=== PATIENT | female | born 1975 | race Two or more races ===

== ENCOUNTER → 2020-04-30 13:07 | Outpatient (BNVA) | payer OTHER, MEDICAID, SELFPAY | PROVIDERS: PCP Family Medicine; Referring Provider Family Medicine; Visit Provider Internal Medicine Cardiovascular Disease | DX: I09.9 Rheumatic heart disease, unspecified (principal); Z95.2 Presence of prosthetic heart valve; Z51.81 Encounter for therapeutic drug level monitoring; Z79.01 Long term (current) use of anticoagulants | CPT/HCPCS: 99204 ==

== ENCOUNTER → 2020-05-05 16:20 | Outpatient (BNVA) | payer MEDICAID, OTHER, SELFPAY | PROVIDERS: PCP Family Medicine; Visit Provider Family Medicine | DX: Z95.2 Presence of prosthetic heart valve (principal); Z51.81 Encounter for therapeutic drug level monitoring; Z79.01 Long term (current) use of anticoagulants | CPT/HCPCS: 85610; 99211 ==

== ENCOUNTER → 2020-05-15 14:45 | Outpatient (REF) | payer OTHER, MEDICAID, SELFPAY ==
--- NOTE | 2020-05-15 14:51 | CA_ITS ---
Transthoracic Echocardiogram Patient (Last, First, Middle): Thalia Martell, Gender: Female Date of : 1975 Age: 45 Procedure Date: 05/15/2020 Procedure Type: Transthoracic Echocardiogram Location: OP Height: 149.86 cm Weight: 73.48 kg BSA: 1.69 m2 Heart Rate: bpm BP: 116 / 60 mmHg Theology Teacher: Referring MD: Terence Haynes MD Symptoms: Z95.2 - Presence of prosthetic heart valve Study Quality: Fair ECG Rhythm: Sinus Conclusions: - The left ventricular systolic function is normal. The visually estimated ejection fraction is between 60-65%. - A mechanical prosthetic aortic valve is present. The prosthetic aortic valve appears to be functioning normally. - There is mild mitral valve stenosis. Findings Left Ventricle Normal left ventricular cavity size. There is normal left ventricular wall thickness. The left ventricular systolic function is normal. The visually estimated ejection fraction is between 60-65%. There is no evidence of regional wall motion abnormalities. Diastolic function is indeterminate on the basis of available data. Right Ventricle Normal right ventricular cavity size and systolic function. Atria The left atrium is mildly dilated. The right atrium is normal in size. Aortic Valve A mechanical prosthetic aortic valve is present. The prosthetic aortic valve appears to be functioning normally. The peak aortic velocity is 2.65 m/s with a calculated peak gradient of 28 mmHg. The mean gradient is 15 mmHg. The aortic valve area is 1.25 cm2. There is trace (trivial) aortic valve regurgitation. Mitral Valve There is mild mitral annular calcification. There is trace mitral valve regurgitation. There is mild mitral valve stenosis. Mitral valve leaflets appear to have reduced excursion. Likely rheumatic etiology. Mean gradient 4mmHg at 64/Min. Mitral valve area by pressure half time was 1.53 sq cm. Pulmonic Valve The pulmonic valve was not well visualized. Tricuspid Valve Normal tricuspid valve structure. There is trace tricuspid valve regurgitation. The pulmonary artery systolic pressure is normal. Great Vessels The asc aorta is normal in size. Venous The inferior vena cava is normal in size and collapses greater than 50% with inspiration. Pericardium/Pleural There is no evidence of pericardial effusion. Prior Study Comparison No prior study available for comparison. Measurements 2D Linear Measurements IVSd: 0.98 0.6-0.9/0.6-1.0 cm LVIDd: 4.02 3.9-5.3/4.2-5.9 cm LVIDd Index: 2.38 2.4-3.2/2.2-3.1 cm/m2 LVIDs: 2.84 2.0-3.6 cm LVPWd: 1.01 0.7-1.1 cm Ao Root: 3.20 2.1-3.5 cm LA Diam: 3.40 2.7-3.8/3.0-4.0 cm LAIDs Index: 2.01 1.5-2.3 cm/m2 LV Mass: 157.64 67-162/88-224 g LV Mass Index: 93.28 43-95/49-115 g/m2 LVOT Diam: 1.80 3.0+(-)1.3 cm Mitral Valve MV VTI: 0.57 MV Pk Jose [place]: 1.49 MV Mn Jose Francisco: 0.90 MV Pk Grad: 9.00 MV Mn Grad: 4.00 MV Pk E: 1.23 MV PK A: 1.27 MV Decel Time: 454.00 E/A: 1.00 E'Lateral: 6.20 E'Medial: 5.55 E/E' Med: 22.20 E/E' Lat: 19.80 PHT: 139.00 MVA PHT: 1.58 MVA Continuity: 1.16 Decel [place]: 2.78 Aortic Valve AoV Pk Jose [place]: 2.65 AoV Mn Jose Francisco: 1.80 AoV VTI: 0.53 AoV Pk Grad: 28.00 Aov Mn Grad: 15.00 EDUARDO Cont.VTI: 1.25 LVOT LVOT Pk Jose [place]: 1.06 LVOT Mn Jose Francisco: 0.79 LVOT VTI: 0.26 LVOT Pk Grad: 4.00 LVOT Mn Grad: 3.00 LVOT Diam: 1.80 LVOT Area: 2.54 Diastolic Function MV Pk E: 1.23 MV Pk A: 1.27 E/A: 1.00 E'Medial: 5.55 E/E' Med: 22.20 E' Laterial: 6.20 E/E' Lat: 19.80 Tricuspid Valve TR Pk Jose Francisco: 2.20 TR Pk Grad: 19.00 Great Vessels Aorta Ao Root-2D: 3.20 2.0-3.7 cm Pulmonary Valve PV Pk [place]: 1.01 Peak PV Grad: 4.00 Updated in Other Vendor System with Status of Final Gabe Mckee MD electronically signed on 05/16/2020 1:28:05 PM with status of Final
== END ==
LOC: HO.CARD 14:45
PROVIDERS: Visit Provider Internal Medicine Cardiovascular Disease
DX: Z95.2 Presence of prosthetic heart valve (principal)
CPT/HCPCS: 93306

== ENCOUNTER → 2020-06-15 15:54 | Outpatient (BNVA) | payer OTHER, MEDICAID, SELFPAY | PROVIDERS: PCP Family Medicine; Visit Provider Internal Medicine | DX: Z95.2 Presence of prosthetic heart valve (principal); Z51.81 Encounter for therapeutic drug level monitoring; Z79.01 Long term (current) use of anticoagulants | CPT/HCPCS: 85610; 99211 ==

== ENCOUNTER 2020-06-19 13:51 | Outpatient (REF) | payer OTHER, SELFPAY ==
--- NOTE | 2020-06-19 | US_ITS ---
EXAMINATION: PELVIC ULTRASOUND CLINICAL INFORMATION: Pelvic pain COMPARISON: Previous exam July 2019 TECHNIQUE: Transabdominal and transvaginal pelvic ultrasound was performed. Transvaginal exam was performed for better visualization of the uterus and ovaries. FINDINGS: The uterus is anteverted and measures 9.7 x 4.4 x 5.4 cm in dimension. No focal uterine lesion is seen. Endometrial thickness is normal estimated at 0.6 cm. The endometrium appears homogeneous. There is a nabothian cyst in the cervix. The right ovary is normal-appearing and measures 2.1 x 3.4 x 1.2 cm. The left ovary measures 2.8 x 2.6 x 2.2 cm. There is a new 2.5 x 1.8 x 2.1 cm simple left ovarian cyst. The previously identified right ovarian cyst has resolved. There is no fluid in the pelvis. US/US pelvic complete IMPRESSION: Small left ovarian cyst otherwise unremarkable exam.
--- NOTE | 2020-06-19 | XR_ITS ---
EXAMINATION: XR CERVICAL SPINE CLINICAL INFORMATION: Neck pain COMPARISON: Previous chest x-ray June 2016 TECHNIQUE: 5 views of the cervical spine FINDINGS: Alignment is normal. No fracture or dislocation is seen. Disc spaces are normal. Neural foramen are patent. Prevertebral soft tissues are normal. There are median sternotomy wires. There is a 4 mm right upper lobe nodule. This is unchanged from previous chest x-ray 2016 and therefore probably benign. XR/XR cervical spine 5V IMPRESSION: Unremarkable cervical spine x-ray. Stable right upper lobe nodule.
--- NOTE | 2020-06-19 | US_ITS ---
EXAMINATION: PELVIC ULTRASOUND CLINICAL INFORMATION: Pelvic pain COMPARISON: Previous exam July 2019 TECHNIQUE: Transabdominal and transvaginal pelvic ultrasound was performed. Transvaginal exam was performed for better visualization of the uterus and ovaries. FINDINGS: The uterus is anteverted and measures 9.7 x 4.4 x 5.4 cm in dimension. No focal uterine lesion is seen. Endometrial thickness is normal estimated at 0.6 cm. The endometrium appears homogeneous. There is a nabothian cyst in the cervix. The right ovary is normal-appearing and measures 2.1 x 3.4 x 1.2 cm. The left ovary measures 2.8 x 2.6 x 2.2 cm. There is a new 2.5 x 1.8 x 2.1 cm simple left ovarian cyst. The previously identified right ovarian cyst has resolved. There is no fluid in the pelvis. US/US transvaginal IMPRESSION: Small left ovarian cyst otherwise unremarkable exam.
== END 2020-06-19 13:52 | disposition home or self-care (01) ==
LOC: HO.US 13:51
PROVIDERS: PCP Family Medicine; Visit Provider Family Medicine
DX: R10.2 Pelvic and perineal pain (principal); N83.209 Unspecified ovarian cyst, unspecified side
CPT/HCPCS: 72050; 76830; 76856

== ENCOUNTER 2020-07-27 16:13 | Outpatient (REF) | payer MEDICAID, OTHER, SELFPAY | END 2020-07-27 16:14 | disposition home or self-care (01) | LOC: HO.LAB 16:13 | PROVIDERS: PCP Family Medicine; Visit Provider Internal Medicine | DX: Z20.822 Contact with and (suspected) exposure to COVID-19 (principal) | CPT/HCPCS: 36415; C9803; U0003 ==

== ENCOUNTER → 2020-09-08 15:59 | Outpatient (BNVA) | payer OTHER, SELFPAY | PROVIDERS: PCP Family Medicine; Visit Provider Internal Medicine | DX: Z95.2 Presence of prosthetic heart valve (principal); Z51.81 Encounter for therapeutic drug level monitoring; Z79.01 Long term (current) use of anticoagulants | CPT/HCPCS: 85610; 99211 ==

== ENCOUNTER 2020-09-09 14:51 | Outpatient (REF) | payer OTHER, SELFPAY ==
[2020-09-09 16:03] LABS: Hematocrit 39.8 % (37-47); Hemoglobin 13.6 g/dl (12.0-16.0); Mean Corpuscular HGB Conc 34.2 g/dl (31.0-35.0); Mean Corpuscular Hemoglobin 30.2 pg (27.0-33.0); Mean Corpuscular Volume 88.2 fL (80-98); Mean Platelet Volume 9.7 fL (9.4-12.3); Platelet Count 278 X10*3/uL (160-400); Red Blood Count 4.51 X10*6/uL (4.20-5.50); Red Cell Distribution Width 13.7 % (11.0-16.0); White Blood Count 6.1 X10*3/uL (4.8-10.8)
== END 2020-09-09 14:52 | disposition home or self-care (01) ==
LOC: HO.LAB 14:51
PROVIDERS: PCP Family Medicine; Visit Provider Internal Medicine Cardiovascular Disease
DX: I09.9 Rheumatic heart disease, unspecified (principal); R42 Dizziness and giddiness; Z95.2 Presence of prosthetic heart valve; Z79.899 Other long term (current) drug therapy; Z79.82 Long term (current) use of aspirin; Z79.01 Long term (current) use of anticoagulants
CPT/HCPCS: 36415; 85027; 99212

== ENCOUNTER → 2020-09-14 13:41 | Outpatient (BNVA) | payer OTHER, SELFPAY | PROVIDERS: PCP Family Medicine; Visit Provider Internal Medicine | DX: Z95.2 Presence of prosthetic heart valve (principal); Z51.81 Encounter for therapeutic drug level monitoring; Z79.01 Long term (current) use of anticoagulants | CPT/HCPCS: 85610; 99211 ==

== ENCOUNTER → 2020-09-24 15:28 | Outpatient (BNVA) | payer OTHER, SELFPAY | PROVIDERS: PCP Family Medicine; Visit Provider Internal Medicine | DX: Z95.2 Presence of prosthetic heart valve (principal); Z51.81 Encounter for therapeutic drug level monitoring; Z79.01 Long term (current) use of anticoagulants | CPT/HCPCS: 85610; 99211 ==

== ENCOUNTER → 2020-10-02 16:05 | Outpatient (BNVA) | payer OTHER, SELFPAY | PROVIDERS: PCP Family Medicine; Visit Provider Internal Medicine | DX: Z95.2 Presence of prosthetic heart valve (principal); Z51.81 Encounter for therapeutic drug level monitoring; Z79.01 Long term (current) use of anticoagulants | CPT/HCPCS: 85610; 99211 ==

== ENCOUNTER → 2020-10-09 15:19 | Outpatient (BNVA) | payer OTHER, SELFPAY | PROVIDERS: PCP Family Medicine; Visit Provider Internal Medicine | DX: Z95.2 Presence of prosthetic heart valve (principal); Z51.81 Encounter for therapeutic drug level monitoring; Z79.01 Long term (current) use of anticoagulants | CPT/HCPCS: 85610; 99211 ==

== ENCOUNTER → 2020-10-23 15:40 | Outpatient (BNVA) | payer OTHER, SELFPAY | PROVIDERS: PCP Family Medicine; Visit Provider Internal Medicine | DX: Z95.2 Presence of prosthetic heart valve (principal); Z51.81 Encounter for therapeutic drug level monitoring; Z79.01 Long term (current) use of anticoagulants | CPT/HCPCS: 85610; 99211 ==

== ENCOUNTER → 2020-11-17 16:09 | Outpatient (BNVA) | payer OTHER, SELFPAY | PROVIDERS: PCP Family Medicine; Visit Provider Internal Medicine | DX: Z95.2 Presence of prosthetic heart valve (principal); Z51.81 Encounter for therapeutic drug level monitoring; Z79.01 Long term (current) use of anticoagulants | CPT/HCPCS: 85610; 99211 ==

== ENCOUNTER 2020-12-11 15:29 | Outpatient (REF) | payer OTHER, SELFPAY ==
--- NOTE | ~2020-12-11 | MM_ITS ---
EXAMINATION: MM SCREENING DIGITAL BREAST TOMOSYNTHESIS, BILATERAL CLINICAL INFORMATION: Screening. Asymptomatic. The lifetime risk of breast cancer based on the Tyrer-Cuzick Model is 6.7%. COMPARISON: Mammography: September 04, 2019 and April 03, 2017 TECHNIQUE: Digital breast tomosynthesis is performed in both the craniocaudal and mediolateral oblique views along with computer-aided detection (CAD). Synthesized 2D images are generated from the tomosynthesis. FINDINGS: There are scattered areas of fibroglandular density (ACR BI-RADS breast composition Category b). There are no significant masses, abnormal calcifications, or other abnormalities. MM/MM tomosynthesis screening BI IMPRESSION: There are no significant changes from prior study. ASSESSMENT: BI-RADS 1: Negative RECOMMENDATION: Routine annual mammography screening. This patient's information was entered into a reminder system with a target due date for their next mammogram.
== END 2020-12-11 15:30 | disposition home or self-care (01) ==
LOC: HO.MAMMO 15:29
PROVIDERS: PCP Internal Medicine; Visit Provider Family Medicine
DX: Z12.31 Encounter for screening mammogram for malignant neoplasm of breast (principal)
CPT/HCPCS: 77063; 77067

== ENCOUNTER → 2020-12-15 15:49 | Outpatient (BNVA) | payer OTHER, SELFPAY | PROVIDERS: PCP Internal Medicine; Visit Provider Internal Medicine | DX: Z95.2 Presence of prosthetic heart valve (principal); Z51.81 Encounter for therapeutic drug level monitoring; Z79.01 Long term (current) use of anticoagulants | CPT/HCPCS: 85610; 99211 ==

== ENCOUNTER → 2021-01-12 15:50 | Outpatient (BNVA) | payer OTHER, SELFPAY | PROVIDERS: PCP Family Medicine; Visit Provider Internal Medicine | DX: Z95.2 Presence of prosthetic heart valve (principal); Z51.81 Encounter for therapeutic drug level monitoring; Z79.01 Long term (current) use of anticoagulants | CPT/HCPCS: 85610; 99211 ==

== ENCOUNTER → 2021-01-18 15:49 | Outpatient (BNVA) | payer OTHER, SELFPAY | PROVIDERS: PCP Family Medicine; Visit Provider Internal Medicine | DX: Z95.2 Presence of prosthetic heart valve (principal); Z51.81 Encounter for therapeutic drug level monitoring; Z79.01 Long term (current) use of anticoagulants | CPT/HCPCS: 85610; 99211 ==

== ENCOUNTER → 2021-02-15 11:38 | Outpatient (BNVA) | payer OTHER, SELFPAY | PROVIDERS: PCP Family Medicine; Visit Provider Internal Medicine | DX: Z95.2 Presence of prosthetic heart valve (principal); Z51.81 Encounter for therapeutic drug level monitoring; Z79.01 Long term (current) use of anticoagulants | CPT/HCPCS: 85610; 99211 ==

== ENCOUNTER → 2021-03-16 15:19 | Outpatient (BNVA) | payer OTHER, SELFPAY | PROVIDERS: PCP Family Medicine; Visit Provider Internal Medicine | DX: Z95.2 Presence of prosthetic heart valve (principal); Z51.81 Encounter for therapeutic drug level monitoring; Z79.01 Long term (current) use of anticoagulants | CPT/HCPCS: 85610; 99211 ==

== ENCOUNTER → 2021-03-31 15:32 | Outpatient (BNVA) | payer OTHER, SELFPAY | PROVIDERS: PCP Family Medicine; Referring Provider Family Medicine; Visit Provider Internal Medicine Cardiovascular Disease | DX: I08.0 Rheumatic disorders of both mitral and aortic valves (principal); Z95.2 Presence of prosthetic heart valve; Z79.82 Long term (current) use of aspirin; Z79.01 Long term (current) use of anticoagulants; Z79.899 Other long term (current) drug therapy | CPT/HCPCS: 99212 ==

== ENCOUNTER → 2021-04-28 15:51 | Outpatient (BNVA) | payer OTHER, SELFPAY | PROVIDERS: PCP Family Medicine; Visit Provider Internal Medicine | DX: Z95.2 Presence of prosthetic heart valve (principal); Z51.81 Encounter for therapeutic drug level monitoring; Z79.01 Long term (current) use of anticoagulants | CPT/HCPCS: 85610; 99211 ==

== ENCOUNTER 2021-05-25 11:30 | Outpatient (REF) | payer OTHER, SELFPAY ==
[2021-05-27 07:13] LABS: CT PCR NOT DETECTED (Not Detect.); NG PCR NOT DETECTED (Not Detect.)
[2021-05-27 11:04] LABS: BV Int Neg Control Negative (Negative); BV Int Pos Control Positive (Positive)
== END 2021-05-25 11:31 | disposition home or self-care (01) ==
LOC: HO.LAB 11:30
PROVIDERS: Visit Provider Advanced Practice Midwife
DX: Z30.09 Encounter for other general counseling and advice on contraception (principal); N94.6 Dysmenorrhea, unspecified; N92.0 Excessive and frequent menstruation with regular cycle; Z20.2 Contact with and (suspected) exposure to infections with a predominantly sexual mode of transmission; Z95.2 Presence of prosthetic heart valve; Z51.81 Encounter for therapeutic drug level monitoring; Z79.01 Long term (current) use of anticoagulants
CPT/HCPCS: 85610; 87480; 87491; 87510; 87591; 87660; 99202; 99211

== ENCOUNTER 2021-06-02 14:44 | Outpatient (REF) | payer OTHER, SELFPAY ==
--- NOTE | ~2021-06-02 | US_ITS ---
EXAMINATION: US PELVIS CLINICAL INFORMATION: Dysmenorrhea, unspecified. COMPARISON: None TECHNIQUE: Ultrasound of the pelvis is performed using both transabdominal and transvaginal transducers along with Doppler. Transvaginal imaging is performed due to inadequate visualization transabdominally. FINDINGS: Uterus: The uterus is anteverted and measures 10.1 x 3.4 x 5.1 cm. The double wall endometrial thickness is 0.5 mm. The uterus is smooth in contour and has normal myometrial echogenicity. Solitary 0.5 cm hypoechogenicity is noted within the anterior wall of the body of the uterus may represent small fibroid.. Adnexa: Both ovaries are visualized. There is normal color flow to the adnexa. There is no ovarian torsion. There is no pelvic ascites or fluid collection. Right ovary measures 2.2 x 1.6 x 2.1 cm. Volume of 3.9 mL. Previously measured 2.1 x 2.4 x 1.2 cm. Subcentimeter follicles Left ovary measures 2.5 x 1.3 x 1.6 cm. Volume of 2.7 mL. Previously measured 2.8 x 2.6 x 2.2 cm. US/US pelvic and transvaginal IMPRESSION: 1. Solitary 0.5 cm likely intramural fibroid within the body of the uterus. Normal-appearing endometrial stripe. 3. Morphologically normal-appearing bilateral ovaries.
== END 2021-06-02 14:45 | disposition home or self-care (01) ==
LOC: HO.US 14:44
PROVIDERS: Visit Provider Advanced Practice Midwife
DX: N94.6 Dysmenorrhea, unspecified (principal)
CPT/HCPCS: 76830; 76856

== ENCOUNTER → 2021-06-22 11:49 | Outpatient (BNVA) | payer OTHER, SELFPAY | PROVIDERS: Visit Provider Advanced Practice Midwife ==

== ENCOUNTER → 2021-08-24 11:29 | Outpatient (BNVA) | payer OTHER, SELFPAY | PROVIDERS: Visit Provider Internal Medicine | DX: Z95.2 Presence of prosthetic heart valve (principal); Z51.81 Encounter for therapeutic drug level monitoring; Z79.01 Long term (current) use of anticoagulants | CPT/HCPCS: 85610; 99211 ==

== ENCOUNTER → 2021-08-31 15:32 | Outpatient (BNVA) | payer OTHER, SELFPAY | PROVIDERS: PCP Family Medicine; Visit Provider Internal Medicine | DX: Z95.2 Presence of prosthetic heart valve (principal); Z51.81 Encounter for therapeutic drug level monitoring; Z79.01 Long term (current) use of anticoagulants | CPT/HCPCS: 85610; 99211 ==

== ENCOUNTER → 2021-09-14 14:21 | Outpatient (BNVA) | payer OTHER, SELFPAY | PROVIDERS: PCP Family Medicine; Visit Provider Internal Medicine | DX: Z95.2 Presence of prosthetic heart valve (principal); Z51.81 Encounter for therapeutic drug level monitoring; Z79.01 Long term (current) use of anticoagulants | CPT/HCPCS: 85610; 99211 ==

== ENCOUNTER 2021-09-17 14:05 | Outpatient (REF) | payer OTHER, SELFPAY ==
[2021-09-17 16:32] LABS: Alanine Aminotransferase 17 U/L (0-31); Albumin Level 4.1 g/dL (3.5-5.0); Alkaline Phosphatase 67 U/L (39-117); Anion Gap 10 (12-20); Aspartate Amino Transferase 18 U/L (5-31); Bilirubin Total 0.4 mg/dL (0.0-1.0); Blood Urea Nitrogen 15 mg/dL (9-16); Calcium 9.2 mg/dL (8.4-10.2); Carbon Dioxide 23 mmol/L (22-29); Chloride 108 mmol/L (96-108); Estimated Glomerular Filt Rate > 60; Glucose Random 89 mg/dL (60-115); Potassium 3.7 mmol/L (3.3-5.1); Sodium 137 mmol/L (135-145); Total Protein 7.6 g/dL (6.5-8.0)
[2021-09-17 16:51] LABS: TSH reflex Free T4 0.97 uIU/mL (0.32-4.0)
== END 2021-09-17 14:06 | disposition home or self-care (01) ==
LOC: HO.LAB 14:05
PROVIDERS: PCP Family Medicine; Referring Provider Family Medicine; Visit Provider Nurse Practitioner Family
DX: K21.9 Gastro-esophageal reflux disease without esophagitis (principal); K59.01 Slow transit constipation; K62.89 Other specified diseases of anus and rectum
CPT/HCPCS: 36415; 80053; 84443; 99202

== ENCOUNTER → 2021-09-21 15:59 | Outpatient (BNVA) | payer OTHER, SELFPAY | PROVIDERS: PCP Family Medicine; Visit Provider Internal Medicine | DX: Z95.2 Presence of prosthetic heart valve (principal); Z51.81 Encounter for therapeutic drug level monitoring; Z79.01 Long term (current) use of anticoagulants | CPT/HCPCS: 85610; 99211 ==

== ENCOUNTER → 2021-10-05 15:53 | Outpatient (BNVA) | payer OTHER, SELFPAY | PROVIDERS: PCP Family Medicine; Visit Provider Internal Medicine | DX: Z95.2 Presence of prosthetic heart valve (principal); Z51.81 Encounter for therapeutic drug level monitoring; Z79.01 Long term (current) use of anticoagulants | CPT/HCPCS: 85610; 99211 ==

== ENCOUNTER → 2021-10-15 15:03 | Outpatient (BNVA) | payer OTHER, SELFPAY | PROVIDERS: PCP Family Medicine; Visit Provider Internal Medicine | DX: Z95.2 Presence of prosthetic heart valve (principal); Z51.81 Encounter for therapeutic drug level monitoring; Z79.01 Long term (current) use of anticoagulants | CPT/HCPCS: 85610; 99211 ==

== ENCOUNTER → 2021-10-19 15:44 | Outpatient (BNVA) | payer OTHER, SELFPAY | PROVIDERS: PCP Family Medicine; Visit Provider Internal Medicine | DX: Z95.2 Presence of prosthetic heart valve (principal); Z51.81 Encounter for therapeutic drug level monitoring; Z79.01 Long term (current) use of anticoagulants | CPT/HCPCS: 85610; 99211 ==

== ENCOUNTER → 2021-11-03 15:28 | Outpatient (BNVA) | payer OTHER, SELFPAY | PROVIDERS: PCP Family Medicine; Visit Provider Internal Medicine | DX: Z95.2 Presence of prosthetic heart valve (principal); Z79.01 Long term (current) use of anticoagulants; Z51.81 Encounter for therapeutic drug level monitoring | CPT/HCPCS: 85610; 99211 ==

== ENCOUNTER → 2021-11-15 15:42 | Outpatient (BNVA) | payer OTHER, SELFPAY | PROVIDERS: PCP Family Medicine; Referring Provider Family Medicine; Visit Provider Nurse Practitioner Family | DX: K59.01 Slow transit constipation (principal); K21.9 Gastro-esophageal reflux disease without esophagitis; K62.9 Disease of anus and rectum, unspecified; Z79.899 Other long term (current) drug therapy | CPT/HCPCS: 99212 ==

== ENCOUNTER 2021-12-14 15:57 | Outpatient (REF) | payer OTHER, SELFPAY ==
--- NOTE | ~2021-12-14 | MM_ITS ---
EXAMINATION: MM SCREENING DIGITAL BREAST TOMOSYNTHESIS, BILATERAL CLINICAL INFORMATION: Screening. Asymptomatic. The lifetime risk of breast cancer based on the Tyrer-Cuzick Model is 7%. COMPARISON: Mammography: 12/11/2020, 09/04/2019, 04/03/2017 (baseline). TECHNIQUE: Digital breast tomosynthesis is performed in both the craniocaudal and mediolateral oblique views along with computer-aided detection (CAD). Synthesized 2D images are generated from the tomosynthesis. FINDINGS: There are scattered areas of fibroglandular density (ACR BI-RADS breast composition Category b). There are no significant masses, abnormal calcifications, or other abnormalities. Parenchymal pattern is similar to prior studies. No developing density. The axilla and skin contours are unremarkable. MM/MM tomosynthesis screening BI IMPRESSION: No mammographic evidence of malignancy. ASSESSMENT: BI-RADS 1: Negative RECOMMENDATION: Routine annual mammography screening. This patient's information was entered into a reminder system with a target due date for their next mammogram.
== END 2021-12-14 15:58 | disposition home or self-care (01) ==
LOC: HO.MAMMO 15:57
PROVIDERS: Visit Provider Internal Medicine
DX: Z12.31 Encounter for screening mammogram for malignant neoplasm of breast (principal)
CPT/HCPCS: 77063; 77067

== ENCOUNTER → 2021-12-16 14:35 | Outpatient (BNVA) | payer OTHER, SELFPAY | PROVIDERS: PCP Family Medicine; Visit Provider Internal Medicine | DX: Z95.2 Presence of prosthetic heart valve (principal); Z79.01 Long term (current) use of anticoagulants; Z51.81 Encounter for therapeutic drug level monitoring | CPT/HCPCS: 85610; 99211 ==

== ENCOUNTER → 2022-01-13 15:59 | Outpatient (BNVA) | payer OTHER, SELFPAY | PROVIDERS: PCP Family Medicine; Visit Provider Internal Medicine | DX: Z95.2 Presence of prosthetic heart valve (principal); Z79.01 Long term (current) use of anticoagulants; Z51.81 Encounter for therapeutic drug level monitoring | CPT/HCPCS: 85610; 99211 ==

== ENCOUNTER → 2022-01-27 14:47 | Outpatient (BNVA) | payer OTHER, SELFPAY | PROVIDERS: PCP Family Medicine; Visit Provider Internal Medicine | DX: Z95.2 Presence of prosthetic heart valve (principal); Z79.01 Long term (current) use of anticoagulants; Z51.81 Encounter for therapeutic drug level monitoring | CPT/HCPCS: 85610; 99211 ==

== ENCOUNTER → 2022-02-03 14:10 | Outpatient (BNVA) | payer OTHER, SELFPAY | PROVIDERS: PCP Family Medicine; Referring Provider Family Medicine; Visit Provider Internal Medicine Cardiovascular Disease | DX: I05.0 Rheumatic mitral stenosis (principal); Z95.2 Presence of prosthetic heart valve; Z79.01 Long term (current) use of anticoagulants; Z79.82 Long term (current) use of aspirin | CPT/HCPCS: 93005; 99212 ==

== ENCOUNTER → 2022-02-11 13:37 | Outpatient (REF) | payer OTHER, SELFPAY ==
--- NOTE | 2022-02-11 13:39 | CA_ITS ---
Transthoracic Echocardiogram Patient (Last, First, Middle): Thalia Martell, Gender: Female Date of : 1975 Age: 46 Procedure Date: 02/11/2022 Procedure Type: Transthoracic Echocardiogram Location: OP Height: 149.86 cm Weight: 74.39 kg BSA: 1.69 m2 Heart Rate: 73 bpm BP: 122 / 70 mmHg Weir Fisher: MT Referring MD: Terence Haynes MD Exploration Driller: Terence Haynes MD Symptoms: I09.9 - Rheumatic heart disease, unspecified Study Quality: Adequate ECG Rhythm: Sinus Conclusions: - Normal left ventricular size and systolic function. There is mildly increased left ventricular wall thickness. The visually estimated ejection fraction is between 55-60%. - E/E prime ratio is >15, consistent with elevated filling pressures. Low GLS values <18. - Normal right ventricular cavity size and systolic function. - A mechanical prosthetic aortic valve is present. The prosthetic aortic valve appears to be functioning normally. The peak aortic velocity is 2.37 m/s. The mean gradient is 13 mmHg. - There is mild anterior and posterior mitral leaflet thickening. There is no mitral valve regurgitation. Mitral valve stenosis is present. MG across the MV of 6 mm Hg at 67 beats/min. - There is mild dilatation of the ascending aorta measuring 3.40 cm. Findings Left Ventricle Normal left ventricular size and systolic function. There is mildly increased left ventricular wall thickness. The visually estimated ejection fraction is between 55-60%. Abnormal diastolic function is noted. Spectral Doppler is indicative of an impaired relaxation filling pattern. E/E prime ratio is >15, consistent with elevated filling pressures. Low GLS values <18. Right Ventricle Normal right ventricular cavity size and systolic function. Atria The left atrium is moderately dilated. There is no evidence of interatrial shunt by color Doppler. The right atrium is normal in size. Aortic Valve A mechanical prosthetic aortic valve is present. The prosthetic aortic valve appears to be functioning normally. The peak aortic velocity is 2.37 m/s. The mean gradient is 13 mmHg. Mitral Valve There is mild anterior and posterior mitral leaflet thickening. There is no mitral valve regurgitation. Mitral valve stenosis is present. MG across the MV of 6 mm Hg at 67 beats/min. Pulmonic Valve Normal pulmonic valve structure and function. There is trace pulmonic valve regurgitation. Tricuspid Valve Normal tricuspid valve structure and function. There is trace tricuspid valve regurgitation. Normal right atrial pressure. There is no evidence of pulmonary hypertension. Great Vessels The pulmonary artery was not well visualized. There is mild dilatation of the ascending aorta measuring 3.40 cm. Venous The inferior vena cava is normal in size and collapses greater than 50% with inspiration. Pericardium/Pleural There is no evidence of pericardial effusion. Measurements 2D Linear Measurements IVSd: 0.95 0.6-0.9/0.6-1.0 cm LVIDd: 4.48 3.9-5.3/4.2-5.9 cm LVIDd Index: 2.65 2.4-3.2/2.2-3.1 cm/m2 LVIDs: 2.97 2.0-3.6 cm LVPWd: 0.93 0.7-1.1 cm LA Diam: 3.60 2.7-3.8/3.0-4.0 cm LAIDs Index: 2.13 1.5-2.3 cm/m2 LV Mass: 173.66 67-162/88-224 g LV Mass Index: 102.76 43-95/49-115 g/m2 LVOT Diam: 2.10 3.0+(-)1.3 cm 2D Systolic Function EF 4C: 66.10 >55% EF 2C: 54.80 >55% EF BiP: 61.00 >55% Mitral Valve MV VTI: 0.52 MV Pk Jose Francisco: 1.53 MV Mn Jose Francisco: 1.08 MV Pk Grad: 10.00 MV Mn Grad: 6.00 MV Pk E: 1.39 MV PK A: 1.53 MV Decel Time: 362.00 E/A: 0.90 E'Lateral: 6.81 E'Medial: 4.37 E/E' Med: 31.80 E/E' Lat: 20.40 PHT: 106.00 MVA PHT: 2.08 MVA Continuity: 1.28 Decel [place]: 3.84 Aortic Valve AoV Pk Jose Francisco: 2.37 AoV Mn Jose Francisco: 1.67 AoV VTI: 0.47 AoV Pk Grad: 22.00 Aov Mn Grad: 13.00 EDUARDO Cont.VTI: 1.41 LVOT LVOT Pk Jose [place]: 0.84 LVOT Mn Jose Francisco: 0.63 LVOT VTI: 0.19 LVOT Pk Grad: 3.00 LVOT Mn Grad: 2.00 LVOT Diam: 2.10 LVOT Area: 3.46 Diastolic Function MV Pk E: 1.39 MV Pk A: 1.53 E/A: 0.90 E'Medial: 4.37 E/E' Med: 31.80 E' Laterial: 6.81 E/E' Lat: 20.40 Right Ventricle TAPSE (mm): 13.70 TVS' Jose Francisco: 7.87 Tricuspid Valve TR Pk Jose Francisco: 2.10 TR Pk Grad: 18.00 RA Press: 3.00 RVSP: 21.00 Great Vessels Aorta Ao Asc: 3.40 2.1-3.4 cm Pulmonary Valve PV Pk Jose Francisco: 0.83 Peak PV Grad: 3.00 Updated in Other Vendor System with Status of Final Terence Haynes MD electronically signed on 02/12/2022 1:57:14 PM with status of Final
== END ==
LOC: HO.CARD 13:37
PROVIDERS: Visit Provider Internal Medicine Cardiovascular Disease
DX: I09.9 Rheumatic heart disease, unspecified (principal)
CPT/HCPCS: 93306; 93356

== ENCOUNTER → 2022-02-14 16:12 | Outpatient (BNVA) | payer OTHER, SELFPAY | PROVIDERS: PCP Family Medicine; Visit Provider Nurse Practitioner Family | DX: K21.9 Gastro-esophageal reflux disease without esophagitis (principal); K58.1 Irritable bowel syndrome with constipation; K59.04 Chronic idiopathic constipation | CPT/HCPCS: 99212 ==

== ENCOUNTER → 2022-02-24 15:54 | Outpatient (BNVA) | payer OTHER, SELFPAY | PROVIDERS: PCP Family Medicine; Visit Provider Internal Medicine | DX: Z95.2 Presence of prosthetic heart valve (principal); Z79.01 Long term (current) use of anticoagulants; Z51.81 Encounter for therapeutic drug level monitoring | CPT/HCPCS: 85610; 99211 ==

== ENCOUNTER → 2022-03-03 15:48 | Outpatient (BNVA) | payer OTHER, SELFPAY | PROVIDERS: PCP Family Medicine; Visit Provider Internal Medicine | DX: Z95.2 Presence of prosthetic heart valve (principal); Z79.01 Long term (current) use of anticoagulants; Z51.81 Encounter for therapeutic drug level monitoring | CPT/HCPCS: 85610; 99211 ==

== ENCOUNTER → 2022-03-24 15:56 | Outpatient (BNVA) | payer OTHER, SELFPAY | PROVIDERS: PCP Family Medicine; Visit Provider Internal Medicine | DX: Z95.2 Presence of prosthetic heart valve (principal); Z51.81 Encounter for therapeutic drug level monitoring; Z79.01 Long term (current) use of anticoagulants | CPT/HCPCS: 85610; 99211 ==

== ENCOUNTER → 2022-04-21 14:55 | Outpatient (BNVA) | payer OTHER, SELFPAY | PROVIDERS: PCP Family Medicine; Visit Provider Internal Medicine | DX: Z95.2 Presence of prosthetic heart valve (principal); Z79.01 Long term (current) use of anticoagulants; Z51.81 Encounter for therapeutic drug level monitoring | CPT/HCPCS: 85610; 99211 ==

== ENCOUNTER → 2022-05-23 16:14 | Outpatient (BNVA) | payer OTHER, SELFPAY | PROVIDERS: PCP Family Medicine; Visit Provider Internal Medicine | DX: Z95.2 Presence of prosthetic heart valve (principal); Z79.01 Long term (current) use of anticoagulants; Z51.81 Encounter for therapeutic drug level monitoring | CPT/HCPCS: 85610; 99211 ==

== ENCOUNTER → 2022-06-03 15:38 | Outpatient (BNVA) | payer OTHER, SELFPAY | PROVIDERS: PCP Family Medicine; Visit Provider Internal Medicine | DX: Z95.2 Presence of prosthetic heart valve (principal); Z51.81 Encounter for therapeutic drug level monitoring; Z79.01 Long term (current) use of anticoagulants | CPT/HCPCS: 85610; 99211 ==

== ENCOUNTER → 2022-07-04 16:02 | Outpatient (BNVA) | payer OTHER, SELFPAY | PROVIDERS: PCP Family Medicine; Visit Provider Internal Medicine | DX: Z95.2 Presence of prosthetic heart valve (principal); Z79.01 Long term (current) use of anticoagulants; Z51.81 Encounter for therapeutic drug level monitoring | CPT/HCPCS: 85610; 99211 ==

== ENCOUNTER 2022-07-11 07:58 | Day surgery (SDC) | payer OTHER, SELFPAY ==
[2022-07-06 11:29] VITALS: BMI 31.1
--- NOTE | 2022-07-07 13:56 | HO.ANESPROP2 ---
Documented by User: Nessa Zhang NP 07/07/22 14:05 HPI - Anesthesia Eval Consult details Narrative: 47yo F for Upper Endoscopy and Colonoscopy Cardiac cleared Warfarin s/p AVR (mechanical) 2009 [facility] Active Problems Active Problems: All Active Problems (Updated 07/06/22 @ 11:29 by Amanda Berrios RN) S/P AVR (Acute) Rheumatic heart disease (Acute) Current use of anticoagulant therapy (Acute) Dizziness (Acute) Severe dysmenorrhea (Acute) control counseling (Acute) Menorrhagia (Acute) Fibroid uterus (Acute) Diabetes (Acute) Anemia (Acute) Allergic rhinitis (Acute) Anticoagulation goal of INR 2 to 3 (Acute) Past Medical History Medical History Anticoagulation goal of INR 2 to 3 Aortic regurgitation Diabetes History of COVID-19 Rheumatic heart disease Surgical History Surgical History Heart valve replaced History of section Social History Social History Alcohol intake: never Patient Tobacco Use Status: Never used Tobacco Advance Directives: No Advance Directives Information Provided: Yes Gender identity: Female Meds Allergies Allergy/AdvReac Type Severity Reaction Status Date / Time No Known Allergies Allergy Verified 07/04/22 16:03 [No Known Allergies*] Home Medications Medication Instructions Recorded Confirmed Last Taken Type ascorbic acid (vitamin C) 500 mg 500 mg PO BID 04/30/20 07/06/22 Unknown History tablet cetirizine 10 mg tablet 10 mg PO DAILY 04/30/20 07/06/22 Unknown History cholecalciferol (vitamin D3) 50 50 mcg PO DAILY 04/30/20 07/06/22 Unknown History mcg (2,000 unit) capsule ferrous sulfate 325 mg (65 mg 325 mg PO BID 04/30/20 07/06/22 Unknown History iron) tablet montelukast 10 mg tablet 10 mg PO BEDTIME 04/30/20 07/06/22 Unknown History multivitamin 1 tab PO DAILY 04/30/20 07/06/22 Unknown History warfarin 2 mg tablet 2 mg PO DAILY 04/30/20 07/06/22 Unknown History acetaminophen 500 mg tablet 500 mg PO Q6H PRN 05/05/21 07/04/22 Unknown History (Tylenol Extra Strength) medroxyprogesterone 150 mg/mL 150 mg IM [id number] 05/25/21 07/06/22 Unknown History intramuscular suspension (Depo-Provera) acetaminophen 650 mg 1,300 mg PO Q8H PRN Pain 10/19/21 07/06/22 Unknown History tablet,extended release (Arthritis Pain Relief (acetaminophen) ER) omeprazole 20 mg capsule,delayed 20 mg PO DAILY 10/19/21 07/06/22 Unknown History release Exam Exam Date and Time: July 07, 2022 1356 Height,Weight and Vital Signs: Height 4 ft 11 in Weight 69.853 kg Pertinent Lab Results Pertinent Lab Results: Laboratory Tests 09/09/20 09/17/21 15:35 15:58 WBC 6.1 Hgb 13.6 Hct 39.8 Plt Count 278 Sodium 137 Potassium 3.7 Chloride 108 Carbon Dioxide 23 BUN 15 Creatinine 0.68 Narrative Narrative: ECHO 01/2022 Conclusions: - Normal left ventricular size and systolic function. There is ? mildly increased left ventricular wall thickness.? The visually? estimated ejection fraction is between 55-60%. ? - E/E prime ratio is >15, consistent with elevated filling ? ? ? pressures.? Low GLS values <18.? - Normal right ventricular cavity size and systolic function.? ? - A mechanical prosthetic aortic valve is present.? The? prosthetic aortic valve appears to be functioning normally.? The peak aortic velocity is 2.37 m/s.? The mean gradient is 13 mmHg. - There is mild anterior and posterior mitral leaflet thickening. There is no mitral valve regurgitation.? Mitral valve stenosis is present. MG across the MV of 6 mm Hg at 67 beats/min.? - There is mild dilatation of the ascending aorta measuring 3.40 cm.? EKG 01/2022 Sinus rhythm 77 beats per minute normal axis, right bundle-branch block QT interval 454 milliseconds Assessment and Plan Assessment Anesthesia Assessment: Chart Reviewed Documented by User: Rogerio Sultana MD 07/11/22 08:31 [facility] Past Medical History Medical History Anticoagulation goal of INR 2 to 3 Aortic regurgitation Diabetes History of COVID-19 Rheumatic heart disease Family History Family history of problems with anesthesia: No Surgical History Surgical History Heart valve replaced History of section History of Problems with Anesthesia: No Social History Social History Alcohol intake: never Patient Tobacco Use Status: Never used Tobacco Advance Directives: No Advance Directives Information Provided: Yes Gender identity: Female Meds Allergies Allergy/AdvReac Type Severity Reaction Status Date / Time No Known Allergies Allergy Verified 07/04/22 16:03 [No Known Allergies*] Home Medications Medication Instructions Recorded Confirmed Last Taken Type ascorbic acid (vitamin C) 500 mg 500 mg PO BID 04/30/20 07/06/22 Unknown History tablet cetirizine 10 mg tablet 10 mg PO DAILY 04/30/20 07/06/22 Unknown History cholecalciferol (vitamin D3) 50 50 mcg PO DAILY 04/30/20 07/06/22 Unknown History mcg (2,000 unit) capsule ferrous sulfate 325 mg (65 mg 325 mg PO BID 04/30/20 07/06/22 Unknown History iron) tablet montelukast 10 mg tablet 10 mg PO BEDTIME 04/30/20 07/06/22 Unknown History multivitamin 1 tab PO DAILY 04/30/20 07/06/22 Unknown History warfarin 2 mg tablet 2 mg PO DAILY 04/30/20 07/06/22 Unknown History acetaminophen 500 mg tablet 500 mg PO Q6H PRN 05/05/21 07/04/22 Unknown History (Tylenol Extra Strength) medroxyprogesterone 150 mg/mL 150 mg IM [id number] 05/25/21 07/06/22 Unknown History intramuscular suspension (Depo-Provera) acetaminophen 650 mg 1,300 mg PO Q8H PRN Pain 10/19/21 07/06/22 Unknown History tablet,extended release (Arthritis Pain Relief (acetaminophen) ER) omeprazole 20 mg capsule,delayed 20 mg PO DAILY 10/19/21 07/06/22 Unknown History release Exam Airway Mallampati Class: I TM Dist: >3cm Neck ROM: Full Loose/Missing/Broken Teeth: Yes and Upper (B = Broken; M = Missing; L = Loose; C = Cap) Heart: rrr Lungs: clear Assessment and Plan Final Anesthetic Review Family History of Problems with Anesthesia: No History of Problems with Anesthesia: No NPO: Yes ASA Class: III Final Preanesthetic Review: No Changes in Pt Med Stat, Meds/Allgs Chart Reviewed, Consent Obtained/Reviewed and Anes Risks/Benef Reviewed Patient Risk: Intermediate Procedure Risk: Low Anesthetic Plan Anesthetic Plan: MAC: Disposition: Standard PACU
[2022-07-11 08:30] LABS: INTERNATIONAL NORM RATIO 1.2 (0.9-1.1)
--- NOTE | 2022-07-11 08:32 | MHC.SHP ---
Pre-Procedural Eval Section A Date of Service: 07/11/22 The patient is an INPATIENT: No The History & Physical has been completed within 30 days and I have reviewed it.: No Section B Chief Complaint: reflux,screening Relevant Family History (Specify if Yes): No Relevant Social History: None Present Medications: see Short Stay Collaborative assessment Medical History: Significant History (Anticoagulation goal of INR 2 to 3 Aortic regurgitation delivery delivered Rheumatic heart disease) History of Previous Operations: Relevant previous surgery/procedure and date(s) (Heart valve replaced History of section) Allergies: Allergies Allergy/AdvReac Type Severity Reaction Status Date / Time No Known Allergies Allergy Verified 07/04/22 16:03 [No Known Allergies*] Review of Systems Sugical H&P ROS: Negative: Constitution, Cardiovascular and Respiratory and Yes, Specify: Gastrointestinal (GERD, dyspepsia) Exam Surgical H&P Exam: Normal: Lungs, Normal: Extremities and Normal: Abdomen and Significant Findings: Heart (mechanical HS) Plan Diagnosis/Plan: Unchanged I have reviewed the history and physical and performed a pertinent physical examination on my patient. No changes have occurred unless specified. Time Spent With Patient Time: Total time managing care of this patient today ____ minutes.
--- NOTE | 2022-07-11 08:35 | PM.OP ---
Brief Operative Note Date of Service: 07/11/22 Pre-op diagnosis: Colon cancer screening, GERD, dyspepsia Post-op diagnosis: other ( GERD, gastritis, diverticulosis, hemorrhoids) Procedure: EGD WITH BIOPSIES COLONOSCOPY TO CECUM Surgeon: Kevin Hooper MD Anesthesia: MAC Was an [employer] used for this Procedure?: Yes [employer]: Austen Vera Estimated blood loss (mL): 0 Pathology: other (A) BX Small Bowel (R/O Celiac's Disease) B) BX Gastric Antrum (R/O H.Pylori) C) BX Gastric Body D) BX EG Junction (R/O Melchor's)) Condition: stable Disposition: PACU
[2022-07-11 08:36] LABS: UPreg QC Valid YES; Urine Pregnancy NEGATIVE (NEGATIVE)
--- NOTE | 2022-07-11 08:36 | P.OP_ITS ---
Operative Note Operative Note Date of Service: 07/11/22 Narrative: Pre-op diagnosis: Colon cancer screening, GERD, dyspepsia Post-op diagnosis:?other ( GERD, gastritis, diverticulosis, hemorrhoids) Surgeon: Kevin Hooper MD Anesthesia:?MAC FLEXIBLE TRANSORAL UPPER GASTROINTESTINAL ENDOSCOPY WITH BIOPSIES AND COLONOSCOPY TILL CECUM UPPER ENDOSCOPY Consent: Indications for the procedure and potential complications of bleeding, perforation, reaction to medications and missed diagnosis were discussed with the patient and informed consent was obtained. Instrument: Olympus GIF H 190 mid size upper endoscope Monitoring: Vital signs and clinical assessment, continuous EKG monitoring, Pulse oximetry, Carbon Dioxide monitoring and blood pressure monitoring were done throughout the procedure. Procedure: The patient was placed in the left lateral decubitis position and pre-procedure medications were administered and a bite block was placed. The endoscope was inserted into the mouth and advanced under direct vision to the third part of duodenum. A careful inspection was made as the upper endoscope was withdrawn including a retroflexed examination of the proximal stomach; Findings and interventions are described below. Findings: Larynx: Normal Esophagus: GE junction at 35 cms. Irregular Z line - biopsied to check for Melchor's. A single 1 cms healing erosion at the GE junction Stomach: Mild diffuse gastric erythema. Biopsies were obtained. Grade 2 flap valve on retroflexed examination of the cardia. Duodenum: Normal bulb and descending duodenum. Biopsies were obtained from 3rd part of the duodenum to check for celiac sprue Intervention: Biopsies as noted above COLONOSCOPY PROCEDURE NOTE Consent: Indications for the procedure and potential complications of bleeding, perforation, reaction to medications and missed diagnosis were discussed with the patient and informed consent was obtained. Instrument: Olympus PCF H 190 L variable stiffness pediatric colonoscope Monitoring: Vital signs and clinical assessment, intermittent blood pressure monitoring, continuous EKG monitoring, Pulse oximetry and Carbon Dioxide monitoring were done throughout the procedure. Colon withdrawl time was 10 minutes. Procedure: The patient was placed in the left lateral decubitis position and pre-procedure medications were administered. After a digital rectal examination of the ano-rectum, the video colonoscope was inserted into the rectum and advanced through the colon to the cecum. The colonoscope was slowly withdrawn in a retrograde panoramic fashion and the colon mucosa was carefully examined including a retroflexed view of the rectum. Findings and interventions are described below. Procedure Difficulty: : Without difficulty Findings: Terminal Ileum: Not evaluated Cecum: Normal Ascending Colon: Normal Transverse Colon: Normal Descending Colon: Normal Sigmoid Colon: Moderate diverticulosis Rectum: Normal Ano-rectum: Moderate internal hemorrhoids Colon preparation: Good after some irrigation Impression and Post Procedure Diagnosis: Endoscopy Findings: ESOPHAGUS: GE junction at 35 cms. Irregular Z line - biopsied to check for Melchor's. A single 1 cms healing erosion at the GE junction STOMACH: Mild diffuse gastric erythema. Biopsies were obtained. Grade 2 flap valve on retroflexed examination of the cardia. DUODENUM: Normal bulb and descending duodenum. Biopsies were obtained from 3rd part of the duodenum to check for celiac sprue Colonoscopy Findings: No polyps were detected Moderate diverticulosis seen in the sigmoid colon Moderate hemorrhoids on retroflexed exam. Plan: Await pathology results Patient has an appointment on 07/26/22 in the [facility] with Ellie Nagy FNP- [facility]. Repeat Colonoscopy in 10 years. GERD and diverticulosis handouts were given in the discharge area
[2022-07-11 08:37] VITALS: BMI 31.3
[2022-07-11 08:55] VITALS: BP 135/62; PULSE 78; RESP 16; TEMP 36.2; O2SAT 98
[2022-07-11] MEDS: Lactated Ringers 1,000 ML 100 ML IVCONT (08:56)
[2022-07-11 10:00] VITALS: BP 96/55; PULSE 60; RESP 18; TEMP 36.1; O2SAT 98
[2022-07-11 10:15] VITALS: BP 118/71; PULSE 66; RESP 14; TEMP 36.1; O2SAT 100
== END 2022-07-11 10:42 | disposition home or self-care (01) ==
PROVIDERS: Nurse Practitioner; PCP Family Medicine; Visit Provider Internal Medicine Gastroenterology
PROC: (CPT 45378; principal; 2022-07-11 09:20)
DX: Z12.11 Encounter for screening for malignant neoplasm of colon (principal); K57.30 Diverticulosis of large intestine without perforation or abscess without bleeding; K64.8 Other hemorrhoids; K21.9 Gastro-esophageal reflux disease without esophagitis; K29.50 Unspecified chronic gastritis without bleeding
CPT/HCPCS: 45378; 43239; 36415; 81025; 85610; 88305; 88342

== ENCOUNTER → 2022-07-15 14:31 | Outpatient (BNVA) | payer OTHER, SELFPAY | PROVIDERS: PCP Family Medicine; Visit Provider Internal Medicine | DX: Z95.2 Presence of prosthetic heart valve (principal); Z79.01 Long term (current) use of anticoagulants; Z51.81 Encounter for therapeutic drug level monitoring | CPT/HCPCS: 85610; 99211 ==

== ENCOUNTER → 2022-07-22 14:00 | Outpatient (BNVA) | payer OTHER, SELFPAY | PROVIDERS: PCP Family Medicine; Visit Provider Internal Medicine | DX: Z95.2 Presence of prosthetic heart valve (principal); Z79.01 Long term (current) use of anticoagulants; Z51.81 Encounter for therapeutic drug level monitoring | CPT/HCPCS: 85610; 99211 ==

== ENCOUNTER → 2022-07-29 15:06 | Outpatient (BNVA) | payer OTHER, SELFPAY | PROVIDERS: PCP Family Medicine; Visit Provider Internal Medicine | DX: Z95.2 Presence of prosthetic heart valve (principal); Z79.01 Long term (current) use of anticoagulants; Z51.81 Encounter for therapeutic drug level monitoring | CPT/HCPCS: 85610; 99211 ==

== ENCOUNTER 2022-08-09 15:07 | Outpatient (REF) | payer OTHER, SELFPAY ==
[2022-08-11 20:53] LABS: Transglutaminase Ab IgG <1.0 U/mL; Transglutaminase IgA <1.0 U/mL
== END 2022-08-09 15:08 | disposition home or self-care (01) ==
LOC: HO.LAB 15:07
PROVIDERS: PCP Family Medicine; Referring Provider Family Medicine; Visit Provider Nurse Practitioner Family
DX: K58.1 Irritable bowel syndrome with constipation (principal); K59.04 Chronic idiopathic constipation; K57.90 Diverticulosis of intestine, part unspecified, without perforation or abscess without bleeding; K21.00 Gastro-esophageal reflux disease with esophagitis, without bleeding; Z01.82 Encounter for allergy testing
CPT/HCPCS: 36415; 86003; 86364; 99212

== ENCOUNTER → 2022-08-10 14:26 | Outpatient (BNVA) | payer OTHER, SELFPAY | PROVIDERS: PCP Family Medicine; Referring Provider Family Medicine; Visit Provider Internal Medicine Cardiovascular Disease | DX: I09.9 Rheumatic heart disease, unspecified (principal); Z95.2 Presence of prosthetic heart valve; Z79.01 Long term (current) use of anticoagulants | CPT/HCPCS: 99212 ==

== ENCOUNTER → 2022-08-15 14:31 | Outpatient (BNVA) | payer OTHER, SELFPAY | PROVIDERS: PCP Family Medicine; Visit Provider Internal Medicine | DX: Z95.2 Presence of prosthetic heart valve (principal); Z79.01 Long term (current) use of anticoagulants; Z51.81 Encounter for therapeutic drug level monitoring | CPT/HCPCS: 85610; 99211 ==

== ENCOUNTER → 2022-08-24 15:32 | Outpatient (BNVA) | payer OTHER, SELFPAY | PROVIDERS: PCP Family Medicine; Visit Provider Internal Medicine | DX: Z95.2 Presence of prosthetic heart valve (principal); Z79.01 Long term (current) use of anticoagulants; Z51.81 Encounter for therapeutic drug level monitoring | CPT/HCPCS: 85610; 99211 ==

== ENCOUNTER → 2022-09-09 15:25 | Outpatient (BNVA) | payer OTHER, SELFPAY | PROVIDERS: PCP Family Medicine; Visit Provider Internal Medicine | DX: Z95.2 Presence of prosthetic heart valve (principal); Z79.01 Long term (current) use of anticoagulants; Z51.81 Encounter for therapeutic drug level monitoring | CPT/HCPCS: 85610; 99211 ==

== ENCOUNTER → 2022-09-20 16:02 | Outpatient (BNVA) | payer OTHER, SELFPAY | PROVIDERS: PCP Family Medicine; Visit Provider Nurse Practitioner Family | DX: K57.90 Diverticulosis of intestine, part unspecified, without perforation or abscess without bleeding (principal); K21.9 Gastro-esophageal reflux disease without esophagitis; K59.04 Chronic idiopathic constipation; Z91.018 Allergy to other foods | CPT/HCPCS: 99212 ==

== ENCOUNTER → 2022-10-10 14:29 | Outpatient (BNVA) | payer OTHER, SELFPAY | PROVIDERS: PCP Family Medicine; Visit Provider Internal Medicine | DX: Z95.2 Presence of prosthetic heart valve (principal); Z79.01 Long term (current) use of anticoagulants; Z51.81 Encounter for therapeutic drug level monitoring | CPT/HCPCS: 85610; 99211 ==

== ENCOUNTER → 2022-11-08 14:53 | Outpatient (BNVA) | payer OTHER, SELFPAY | PROVIDERS: PCP Family Medicine; Visit Provider Internal Medicine | DX: Z95.2 Presence of prosthetic heart valve (principal); Z79.01 Long term (current) use of anticoagulants; Z51.81 Encounter for therapeutic drug level monitoring | CPT/HCPCS: 85610; 99211 ==

== ENCOUNTER → 2022-11-22 16:03 | Outpatient (BNVA) | payer OTHER, SELFPAY | PROVIDERS: PCP Family Medicine; Visit Provider Internal Medicine | DX: Z95.2 Presence of prosthetic heart valve (principal); Z79.01 Long term (current) use of anticoagulants; Z51.81 Encounter for therapeutic drug level monitoring | CPT/HCPCS: 85610; 99211 ==

== ENCOUNTER 2022-12-23 16:21 | Outpatient (REF) | payer OTHER, SELFPAY ==
--- NOTE | ~2022-12-23 | MM_ITS ---
EXAMINATION: MM SCREENING DIGITAL BREAST TOMOSYNTHESIS, BILATERAL CLINICAL INFORMATION: Screening. Asymptomatic. The lifetime risk of breast cancer based on the Tyrer-Cuzick Model is 7%. COMPARISON: Mammography: 12/14/2021, 12/11/2020, 09/04/2019 TECHNIQUE: Digital breast tomosynthesis is performed in both the craniocaudal and mediolateral oblique views along with computer-aided detection (CAD). Synthesized 2D images are generated from the tomosynthesis. FINDINGS: There are scattered areas of fibroglandular density (ACR BI-RADS breast composition Category b). There are no significant masses, abnormal calcifications, or other abnormalities. Parenchymal pattern is similar to prior studies. There is no developing density or architectural abnormality. The axilla and skin contours are unremarkable. No significant changes. MM/MM tomosynthesis screening BI IMPRESSION: No mammographic evidence of malignancy. ASSESSMENT: BI-RADS 1: Negative RECOMMENDATION: Routine annual mammography screening. This patient's information was entered into a reminder system with a target due date for their next mammogram.
== END 2022-12-23 16:22 | disposition home or self-care (01) ==
LOC: HO.MAMMO 16:21
PROVIDERS: PCP Family Medicine; Visit Provider Family Medicine
DX: Z95.2 Presence of prosthetic heart valve (principal); Z12.31 Encounter for screening mammogram for malignant neoplasm of breast; Z51.81 Encounter for therapeutic drug level monitoring; Z79.01 Long term (current) use of anticoagulants
CPT/HCPCS: 77063; 77067; 85610; 99211

== ENCOUNTER → 2022-12-30 15:24 | Outpatient (BNVA) | payer OTHER, SELFPAY | PROVIDERS: PCP Family Medicine; Visit Provider Internal Medicine | DX: Z95.2 Presence of prosthetic heart valve (principal); Z79.01 Long term (current) use of anticoagulants; Z51.81 Encounter for therapeutic drug level monitoring | CPT/HCPCS: 85610; 99211 ==

== ENCOUNTER → 2023-01-12 14:44 | Outpatient (BNVA) | payer OTHER, SELFPAY | PROVIDERS: PCP Family Medicine; Visit Provider Internal Medicine | DX: Z95.2 Presence of prosthetic heart valve (principal); Z79.01 Long term (current) use of anticoagulants; Z51.81 Encounter for therapeutic drug level monitoring | CPT/HCPCS: 85610; 99211 ==

== ENCOUNTER 2023-01-18 16:08 | Outpatient (AMB) | payer OTHER, SELFPAY ==
[2023-01-18 16:23] VITALS: BP 110/72; PULSE 78; BMI 29.4
--- NOTE | 2023-01-18 16:23 | A.OFFVIS_ITS ---
Intake Vital Signs 01/18/23 16:23 Height 4 ft 11 in Weight 145 lb 8.081 oz BMI 29.4 BP 110/72 Blood Pressure Location Lt brachial Position Sitting Pulse 78 Intake Visit Reasons: 4 months follow up Intake Note: Thalia presents in office as a est.patient for a 4month f/u for [facility] PT CC:pt reports having no concerns pt denies any other GI Issues Digestion Operator Required: Yes Digestion Operator Language: Turkmen Accompanied by: Self / Same As Patient Allergies peach Allergy (Severe, Verified 02/06/23 14:58) Angioedema HPI 4 months follow up HPI Details LAST VISIT: Food allergy RAST allergen showed allergy to shrimp, Hazelnuts and almonds. Patient will be refered to radiotelegraph operator for further testing. Diverticulosis Continue MiraLax. Discussed with patient the importance of high-fiber diet and drinking plenty fluids. Patient denies any abdominal pain or discomfort. Continue current bowel regimen GERD (gastroesophageal reflux disease) Continue current treatment with omeprazole and famotidine. Patient will try to use famotidine only if she did at bedtime. Patient was encouraged to avoid dietary triggers and late night snacking. Staying upright for minimum 3 hours after meals discussed with patient. Chronic idiopathic constipation Continue MiraLax and Senokot. Patient was also encouraged to increase fluid intake and activity to promote better bowel motility. I will see patient in 4 months, sooner on as needed basis. Patient is agreeable to this plan and verbalizes understanding of instructions. She was given the opportunity to ask questions and all questions answered. ? Thank you for allowing me to participate in her care Plan Orders Referrals Allergy & Immunology Referral Z91.018 Medications Refilled hydrocortisone 2.5% (Proctosol HC) 1 appl [place] BID-QID PRN 30 grams 2RF hemorrhoids K64.9 TODAY'S VISIT Patient is here today for follow-up. Patient reports that she has been feeling well denies any GI concerning symptoms. However patient states that she was seen in the ER couple months ago. Patient was seen at [facility] on 12/07/2022 for right flank pain. CT scan showed chronic pancreatitis. Patient today reports no pain. Patient states that she has been feeling well. Denies any nausea or vomiting. Denies any dyspepsia, dysphagia or odynophagia. Denies any melena, hematochezia, unintentional weight loss or ribbon like stools. [facility] Medical History (Updated 01/18/23 @ 16:47 by Ellie Nagy [facility]) Anticoagulation goal of INR 2 to 3 Aortic regurgitation Chronic pancreatitis Diabetes Diverticulosis History of COVID-19 Rheumatic heart disease Surgical History Heart valve replaced History of section History of esophagogastroduodenoscopy (EGD) Hx of colonoscopy Social History Alcohol intake: never Patient Tobacco Use Status: Never used Tobacco Gender identity: Female Female Reproductive History Menstrual Age of Menarche: 14 Review of Systems Const Denies weight gain and Denies weight loss ENT Reports no additional complaints, Denies dysphagia and Denies odynophagia Card Reports no additional complaints Resp Reports no additional complaints GI Denies abdominal pain, Denies belching, Denies melena, Denies bloating, Denies change in bowel habits, Denies dysphagia, Denies excessive flatus, Denies dyspepsia, Denies heartburn, Denies diarrhea, Denies loose stools, Denies nausea, Denies odynophagia and Denies vomiting Reports no additional complaints Musc Reports no additional complaints Neuro Reports no additional complaints Psych Reports no additional complaints Endo Reports no additional complaints Physical Exam Vital Signs: Last Vital Signs Pulse 78 01/18/23 16:23 BP 110/72 01/18/23 16:23 BMI result Body Mass Index 29.4 Const General: healthy appearing, no acute distress and well developed Nutritional Appearance: obese Orientation/consciousness: patient oriented x3 HEENT Head: Yes normal to inspection, Yes normocephalic and Yes atraumatic Face and sinus: Yes normal facial exam Mouth: Normal oral and palatal mucosa present Throat: Yes posterior oropharynx normal, Yes tonsils normal and Yes uvula midline Eyes General: appearance normal, both eyes and all related structures Neck Neck: Yes normal visual inspection, Yes full ROM and Yes trachea midline Thyroid: Thyroid normal Resp Effort & Inspection: normal respiratory effort, able to speak in complete sente nces, no tracheal deviation and symmetric chest movement Auscultation: clear to auscultation bilaterally Cardio Rate: regular rate Heart sounds: S1 normal heart sound present and S2 normal heart sound present GI Inspection: Yes normal to inspection, No distended and Yes obesity Palpation (GI): Soft to palpation, not firm, nontender and No hepatosplenomegaly present Auscultation: normal bowel sounds General: Yes no CVA tenderness Back/Spine/Pelvis Back: no CVA tenderness Skin General skin exam: elasticity normal, turgor normal and dry skin Neuro General: patient oriented x3 Psych Appearance: grossly normal Mental Status: mental status grossly normal Speech and movement: Normal speech and movement present Affect: normal affect Assessment & Plan Assessment & Plan (1) Chronic pancreatitis: Code(s): K86.1 - Other chronic pancreatitis Plan: Rule out pancreatic insufficiency, check lipase. Complete metabolic panel. Will check MRI of abdomen with and without contrast to rule out obstruction (2) Swollen lymph nodes: Code(s): R59.9 - Enlarged lymph nodes, unspecified Plan: Patient has swollen lymph nodes and we will send her for x-ray to rule out any abnormalities. I will see patient in 2 months, sooner on as needed basis. Patient is agreeable to this plan and verbalizes understanding of instructions. She was given the opportunity to ask questions and all questions answered. Thank you for allowing me to participate in her care Orders: Orders Pancreatic Elastase-1 01/25/23 R10.9 - Unspecified abdominal pain Lipase 01/25/23 R10.9 - Unspecified abdominal pain Selenium, Serum 01/25/23 K86.1 - Other chronic pancreatitis Comprehensive Met. Panel 01/25/23 K21.9 - Gastro-esophageal reflux disease without esophagitis MR abdomen wo/w con 01/18/23 K86.1 - Other chronic pancreatitis XR soft tissue neck 01/25/23 M54.2 - Cervicalgia, R59.9 - Enlarged lymph nodes, unspecified C Reactive Protein 01/25/23 K58.9 - Irritable bowel syndrome without diarrhea Complete Blood Count no Diff 01/25/23 K21.9 - Gastro-esophageal reflux disease without esophagitis Coding Level of Care Code Est Pt Level 4 (16351) Diagnoses Chronic pancreatitis K86.1 Swollen lymph nodes R59.9 Time Spent (min) 40 Comment 25 minutes spent with patient and additional 15 minutes spent reviewing her records
== END 2023-01-18 17:00 | disposition home or self-care (01) ==
PROVIDERS: PCP Family Medicine; Visit Provider Nurse Practitioner Family
DX: K86.1 Other chronic pancreatitis (principal); R59.9 Enlarged lymph nodes, unspecified
CPT/HCPCS: 99213; 99214

== ENCOUNTER → 2023-01-18 16:08 | Outpatient (BNVA) | payer OTHER, SELFPAY | PROVIDERS: PCP Family Medicine; Visit Provider Nurse Practitioner Family | DX: K86.1 Other chronic pancreatitis (principal); R59.9 Enlarged lymph nodes, unspecified | CPT/HCPCS: 99212 ==

== ENCOUNTER 2023-01-25 14:52 | Outpatient (REF) | payer OTHER, SELFPAY ==
--- NOTE | ~2023-01-25 | XR_ITS ---
EXAMINATION: XR SOFT TISSUE NECK CLINICAL INDICATION: Cervicalgia COMPARISON: Prior radiographs from 06/19/2020 TECHNIQUE: 2 views of the soft tissue neck were obtained. FINDINGS: The craniocervical junction is normal. The dens and atlantodental articulation are intact. The cervical vertebra have normal height and alignment. No fracture, subluxation or prevertebral soft tissue swelling. The disc spaces are normal. The facet joints are unremarkable. The visualized lung apices are normal. The visualized upper sternotomy wires are intact. XR/XR soft tissue neck IMPRESSION: No evidence of degenerative disc disease of the cervical spine. No fracture or malalignment. No specific source of pain is identified.
[2023-01-25 16:11] LABS: Alanine Aminotransferase 20 U/L (0-31); Alkaline Phosphatase 60 U/L (39-117); Anion Gap 12 (12-20); Aspartate Amino Transferase 20 U/L (5-31); Bilirubin Total 0.8 mg/dL (0.0-1.0); Blood Urea Nitrogen 12 mg/dL (9-16); Calcium 9.6 mg/dL (8.4-10.2); Carbon Dioxide 24 mmol/L (22-29); Chloride 108 mmol/L (96-108); Estimated Glomerular Filt Rate > 60; Glucose Random 88 mg/dL (60-115); Lipase 30 U/L (8-78); Potassium 3.5 mmol/L (3.3-5.1); Sodium 140 mmol/L (135-145); Total Protein 7.2 g/dL (6.5-8.0)
== END 2023-01-25 14:53 | disposition home or self-care (01) ==
LOC: HO.XRAY 14:52
PROVIDERS: PCP Family Medicine; Visit Provider Nurse Practitioner Family
DX: K58.9 Irritable bowel syndrome, unspecified (principal); K21.9 Gastro-esophageal reflux disease without esophagitis; R10.9 Unspecified abdominal pain; K86.1 Other chronic pancreatitis; M54.2 Cervicalgia; R59.9 Enlarged lymph nodes, unspecified
CPT/HCPCS: 36415; 70360; 80053; 83690; 84255; 85027; 86140

== ENCOUNTER 2023-02-06 14:56 | Outpatient (AMB) | payer OTHER, SELFPAY ==
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
[2023-02-06 15:03] LABS: Prothrombin Time Whole Bld POC 36.1 sec (11.1-13.5)
== END 2023-02-06 15:08 | disposition home or self-care (01) ==
LOC: HO.ACS 14:56
PROVIDERS: PCP Family Medicine; Visit Provider Internal Medicine
DX: Z79.01 Long term (current) use of anticoagulants (principal)

== ENCOUNTER → 2023-02-06 14:56 | Outpatient (BNVA) | payer OTHER, SELFPAY | PROVIDERS: PCP Family Medicine; Visit Provider Internal Medicine | DX: Z95.2 Presence of prosthetic heart valve (principal); Z79.01 Long term (current) use of anticoagulants; Z51.81 Encounter for therapeutic drug level monitoring | CPT/HCPCS: 85610; 99211 ==

== ENCOUNTER 2023-02-09 15:17 | Outpatient (REF) | payer OTHER, SELFPAY ==
[2023-02-17 22:33] LABS: Pancreatic Elastase-1 279 mcg/g
== END 2023-02-09 15:18 | disposition home or self-care (01) ==
LOC: HO.LNP 15:17
PROVIDERS: Visit Provider Nurse Practitioner Family
DX: R10.9 Unspecified abdominal pain (principal)
CPT/HCPCS: 82656

== ENCOUNTER 2023-02-20 15:37 | Outpatient (AMB) | payer OTHER, SELFPAY ==
--- NOTE | 2023-02-20 15:42 | MHC.OFFVISCO ---
Intake Intake Visit Reasons: Anticoagulation Allergies peach Allergy (Severe, Verified 02/20/23 15:37) Angioedema Medication List - Last Reconciled 02/20/23 by Kayley Toth RN acetaminophen (Tylenol Extra Strength) 500 mg PO Q6H PRN acetaminophen ER (Arthritis Pain Relief (acetaminophen) ER) 1,300 mg PO Q8H PRN ascorbic acid (vitamin C) 500 mg PO BID aspirin (Adult Aspirin Regimen) 81 mg PO DAILY 90 days cetirizine 10 mg PO DAILY cholecalciferol (vitamin D3) 50 mcg PO DAILY multivitamin 1 tab PO DAILY warfarin 2 mg See Protocol PO DAILY Nursing Note INR 3.2-?? out of therapeutic range Medications and supplements reviewed Patient status: pt states dog bite to elbow last week- enc to notify pcp, no redness noted- area appeared healed Medications or supplements: no changes Diet: same Denies any signs and symptoms of bleeding or clotting or unusual bruising Bleeding, bruising, clotting discussed Nutritional guidance given: eat greens for 2 days, no reds for 2 days Dose: 3mg x 2, 6mg x 5 F/U INR Date : 2 weeks?? Patient verbalizing understanding of instructions given. Anti-Coag Initial Assessment Social Hx Patient Tobacco Use Status: Never used Tobacco alcohol intake: never Alcohol intake frequency: does not drink Coding Level of Care Code Est Patient Level 1 Diagnoses Current use of anticoagulant therapy Z79.01 Assessment & Plan Assessment & Plan (1) Current use of anticoagulant therapy: Comment: Continue Coumadin. Code(s): Z79.01 - detention (current) use of anticoagulants Category: Medical
[2023-02-20 15:43] LABS: Prothrombin Time Whole Bld POC 38.4 sec (11.1-13.5); ~PT, ~INR - Anti Coag Clinic 3.2 (0.9-1.1)
== END 2023-02-20 15:55 | disposition home or self-care (01) ==
LOC: HO.ACS 15:37
PROVIDERS: PCP Family Medicine; Visit Provider Internal Medicine
DX: Z79.01 Long term (current) use of anticoagulants (principal)

== ENCOUNTER → 2023-02-20 15:37 | Outpatient (BNVA) | payer OTHER, SELFPAY | PROVIDERS: PCP Family Medicine; Visit Provider Internal Medicine | DX: Z95.2 Presence of prosthetic heart valve (principal); Z79.01 Long term (current) use of anticoagulants; Z51.81 Encounter for therapeutic drug level monitoring | CPT/HCPCS: 85610; 99211 ==

== ENCOUNTER 2023-03-01 12:58 | Outpatient (REF) | payer OTHER, MEDICAID, SELFPAY ==
--- NOTE | ~2023-03-01 | MR_ITS ---
EXAMINATION: MR ABDOMEN WITHOUT AND WITH CONTRAST CLINICAL INFORMATION: Chronic pancreatitis. COMPARISON: None available. TECHNIQUE: MR abdomen was performed without and with use of 7 mL intravenous Gadavist gadolinium contrast. Postcontrast images are performed in multiphase dynamic sequences. Imaging was performed in 3 planes. FINDINGS: LUNG BASES: No pleural or pericardial effusion. Prior median sternotomy. LIVER, GALLBLADDER, AND BILIARY TREE: The liver is normal in size and contour. Hepatic steatosis. No focal hepatic lesion or biliary ductal dilatation is present. The gallbladder is unremarkable. PANCREAS: Normal contour. Homogeneous signal. No ductal dilatation. No peripancreatic stranding. SPLEEN: Not enlarged. ADRENAL GLANDS: No adrenal mass. KIDNEYS AND URETERS: The kidneys are symmetric in size and enhancement. No hydronephrosis. No perinephric stranding. GASTROINTESTINAL TRACT: No bowel obstruction. No ascites or fluid collection. LYMPH NODES: No bulky abdominal lymphadenopathy. VASCULAR: Normal caliber abdominal aorta. MR/MR abdomen wo/w con IMPRESSION: Hepatic steatosis.
== END 2023-03-01 12:59 | disposition home or self-care (01) ==
LOC: HO.MRI 12:58
PROVIDERS: PCP Family Medicine; Visit Provider Nurse Practitioner Family
DX: K86.1 Other chronic pancreatitis (principal); Z95.2 Presence of prosthetic heart valve; Z51.81 Encounter for therapeutic drug level monitoring; Z79.01 Long term (current) use of anticoagulants
CPT/HCPCS: 74183; 85610; 99211; A9585

== ENCOUNTER 2023-03-01 14:03 | Outpatient (AMB) | payer OTHER, SELFPAY ==
--- NOTE | 2023-03-01 14:07 | MHC.OFFVISCO ---
Intake Intake Visit Reasons: Anticoagulation Allergies peach Allergy (Severe, Verified 03/01/23 14:04) Angioedema Medication List - Last Reconciled 03/01/23 by Kayley Toth RN acetaminophen (Tylenol Extra Strength) 500 mg PO Q6H PRN acetaminophen ER (Arthritis Pain Relief (acetaminophen) ER) 1,300 mg PO Q8H PRN ascorbic acid (vitamin C) 500 mg PO BID aspirin (Adult Aspirin Regimen) 81 mg PO DAILY 90 days cetirizine 10 mg PO DAILY cholecalciferol (vitamin D3) 50 mcg PO DAILY multivitamin 1 tab PO DAILY warfarin 2 mg See Protocol PO DAILY Nursing Note INR: 2.0 in therapeutic range Medications and supplements reviewed- no changes No changes in health, diet, medications, or supplements, Denies any signs and symptoms of bleeding or bruising or clotting. Bleeding, bruising, clotting discussed Nutritional guidance given - no greens for 2 days, eat a red today Dose: 3mg x 2, 6mg x 5 F/U INR: pt req 3 weeks Patient verbalizes understanding of instructions given pt states had mri of abd/pancreas today Anti-Coag Initial Assessment Social Hx Patient Tobacco Use Status: Never used Tobacco alcohol intake: never Alcohol intake frequency: does not drink Coding Level of Care Code Est Patient Level 1 Diagnoses Current use of anticoagulant therapy Z79.01 Results AMB INR Fingerstick AMB INR Fingerstick 2.0 Last Edit by Kayley Toth RN on 03/01/23 14:08 Assessment & Plan Assessment & Plan (1) Current use of anticoagulant therapy: Comment: Continue Coumadin. Code(s): Z79.01 - alf (current) use of anticoagulants Category: Medical
== END 2023-03-01 14:14 | disposition home or self-care (01) ==
LOC: HO.ACS 14:04
PROVIDERS: PCP Family Medicine; Visit Provider Internal Medicine
DX: Z79.01 Long term (current) use of anticoagulants (principal)

== ENCOUNTER 2023-03-21 15:46 | Outpatient (AMB) | payer OTHER, SELFPAY ==
[2023-03-21 15:57] LABS: ~PT, ~INR - Anti Coag Clinic 2.7 (0.9-1.1)
--- NOTE | 2023-03-21 15:59 | MHC.OFFVISCO ---
Intake Intake Visit Reasons: Anticoagulation Allergies peach Allergy (Severe, Verified 03/01/23 14:04) Angioedema Medication List - Last Reconciled 03/21/23 by Ruthy Newby RN acetaminophen (Tylenol Extra Strength) 500 mg PO Q6H PRN acetaminophen ER (Arthritis Pain Relief (acetaminophen) ER) 1,300 mg PO Q8H PRN ascorbic acid (vitamin C) 500 mg PO BID aspirin (Adult Aspirin Regimen) 81 mg PO DAILY 90 days cetirizine 10 mg PO DAILY cholecalciferol (vitamin D3) 50 mcg PO DAILY cyclobenzaprine 5 - 10 mg PO BEDTIME PRN multivitamin 1 tab PO DAILY warfarin 2 mg See Protocol PO DAILY Nursing Note INR: 2.7, in therapeutic range Medications and supplements reviewed pt recently had MRI of abd and going to gastro today for an appt to review results pt instructed to call with ay medication changes in 1-2 days Denies any signs and symptoms of bleeding or bruising or clotting. Bleeding, bruising, clotting discussed Nutritional guidance given - eat a mix of fruits and vegetables Dose: 3mg x 2 days/ 6mg x 5 days F/U INR: 4 weeks Patient verbalizes understanding of instructions given Anti-Coag Initial Assessment Social Hx Patient Tobacco Use Status: Never used Tobacco alcohol intake: never Alcohol intake frequency: does not drink Coding Level of Care Code Est Patient Level 1 Diagnoses Current use of anticoagulant therapy Z79.01 Assessment & Plan Assessment & Plan (1) Current use of anticoagulant therapy: Comment: Continue Coumadin. Code(s): Z79.01 - long-term (current) use of anticoagulants Category: Medical
== END 2023-03-21 16:05 | disposition home or self-care (01) ==
LOC: HO.ACS 15:46
PROVIDERS: PCP Family Medicine; Visit Provider Internal Medicine
DX: Z79.01 Long term (current) use of anticoagulants (principal)

== ENCOUNTER → 2023-03-21 15:46 | Outpatient (BNVA) | payer OTHER, SELFPAY | PROVIDERS: PCP Family Medicine; Visit Provider Internal Medicine | DX: K58.9 Irritable bowel syndrome, unspecified (principal); K76.0 Fatty (change of) liver, not elsewhere classified; K21.9 Gastro-esophageal reflux disease without esophagitis; Z95.2 Presence of prosthetic heart valve; Z79.01 Long term (current) use of anticoagulants; Z51.81 Encounter for therapeutic drug level monitoring | CPT/HCPCS: 85610; 99211; 99212 ==

== ENCOUNTER 2023-03-21 16:03 | Outpatient (AMB) | payer OTHER, SELFPAY ==
--- NOTE | 2023-03-21 16:15 | MHC.OFFVIS ---
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 Complete metabolic panel. Will check MRI of abdomen with and without contrast to rule out obstruction Swollen lymph nodes Patient has swollen lymph nodes and we will send her for x-ray to rule out any abnormalities. I will see patient in 2 months, sooner on as needed basis. Patient is agreeable to this plan and verbalizes understanding of instructions. She was given the opportunity to ask questions and all questions answered. ? Thank you for allowing me to participate in her care Plan Orders Orders Pancreatic Elastase-1 01/25/23 R10.9 Lipase 01/25/23 R10.9 Selenium, Serum 01/25/23 K86.1 Comprehensive Met. Panel 01/25/23 K21.9 MR abdomen wo/w con 01/18/23 K86.1 XR soft tissue neck 01/25/23 M54.2, R59.9 C Reactive Protein 01/25/23 K58.9 Complete Blood Count no Diff 01/25/23 K21.9 TODAY'S VISIT Patient is here today for follow-up and to discuss lab results and MRI results. Patient reports that she has been feeling little better. Patient is starting to figure out that some of the food is making feel bloated and causes dyspepsia. Patient denies dysphagia or odynophagia. Reports that when she eats bread or milk she will have acid reflux. Patient also reports postprandial abdominal bloating when eating certain food. Patient states that her daughter has similar symptoms and she changed her diet and feeling better. Patient denies melena, hematochezia, unintentional weight loss or ribbon like stools. [facility] Medical History (Updated 03/21/23 @ 18:04 by Ellie Nagy [facility]) Anticoagulation goal of INR 2 to 3 Aortic regurgitation Chronic pancreatitis Diabetes Diverticulosis Hepatic steatosis History of COVID-19 Rheumatic heart disease Surgical History Heart valve replaced History of section History of esophagogastroduodenoscopy (EGD) Hx of colonoscopy Social History Alcohol intake: never Patient Tobacco Use Status: Never used Tobacco Gender identity: Female Female Reproductive History Menstrual Age of Menarche: 14 Review of Systems Const Denies weight gain and Denies weight loss ENT Reports no additional complaints, Denies dysphagia and Denies odynophagia Card Reports no additional complaints Resp Reports no additional complaints GI Denies abdominal pain, Denies belching, Denies melena, Denies bloating, Denies change in bowel habits, Denies dysphagia, Denies excessive flatus, Reports dyspepsia (Occasional), Reports heartburn, Denies diarrhea, Denies loose stools, Denies nausea, Denies odynophagia and Denies vomiting Reports no additional complaints Musc Reports no additional complaints Neuro Reports no additional complaints Psych Reports no additional complaints Endo Reports no additional complaints Physical Exam Vital Signs: Last Vital Signs Pulse 76 03/21/23 16:16 BP 103/57 L 03/21/23 16:16 BMI result Body Mass Index 30.2 Const General: healthy appearing, no acute distress and well developed Nutritional Appearance: obese Orientation/consciousness: patient oriented x3 HEENT Head: Yes normal to inspection, Yes normocephalic and Yes atraumatic Face and sinus: Yes normal facial exam Mouth: Normal oral and palatal mucosa present Throat: Yes posterior oropharynx normal, Yes tonsils normal and Yes uvula midline Eyes General: appearance normal, both eyes and all related structures Neck Neck: Yes normal visual inspection, Yes full ROM and Yes trachea midline Thyroid: Thyroid normal Resp Effort & Inspection: normal respiratory effort, able to speak in complete sentences, no tracheal deviation and symmetric chest movement Auscultation: clear to auscultation bilaterally Cardio Rate: regular rate Heart sounds: S1 normal heart sound present and S2 normal heart sound present GI Inspection: Yes normal to inspection, No distended and Yes obesity Palpation (GI): Soft to palpation, not firm, nontender and No hepatosplenomegaly present Auscultation: normal bowel sounds General: Yes no CVA tenderness Back/Spine/Pelvis Back: no CVA tenderness Skin General skin exam: elasticity normal, turgor normal and dry skin Neuro General: patient oriented x3 Psych Appearance: grossly normal Mental Status: mental status grossly normal Speech and movement: Normal speech and movement present Results Reviewed Results Reviewed: ABDOMINAL MRI FINDINGS: LUNG BASES: No pleural or pericardial effusion. Prior median sternotomy. LIVER, GALLBLADDER, AND BILIARY TREE: The liver is normal in size and contour. Hepatic steatosis. No focal hepatic lesion or biliary ductal dilatation is present. The gallbladder is unremarkable.? PANCREAS: Normal contour. Homogeneous signal. No ductal dilatation. No peripancreatic stranding. SPLEEN: Not enlarged.? ADRENAL GLANDS: No adrenal mass.? KIDNEYS AND URETERS: The kidneys are symmetric in size and enhancement. ?No hydronephrosis.? No perinephric stranding. ? GASTROINTESTINAL TRACT: No bowel obstruction.? No ascites or fluid collection. ? LYMPH NODES: No bulky abdominal lymphadenopathy. VASCULAR: Normal caliber abdominal aorta. MR/MR abdomen wo/w con IMPRESSION: Hepatic steatosis. Laboratory Tests 01/25/23 02/09/23 15:16 15:12 AST 20 ALT 20 C-Reactive Protein 0.20 Lipase 30 Stool Pancreat Elastase 279 Laboratory Tests 01/25/23 15:16 Hgb 14.0 Hct 41.6 Assessment & Plan Assessment & Plan (1) IBS (irritable bowel syndrome): Code(s): K58.9 - Irritable bowel syndrome without diarrhea Qualifiers: Irritable bowel syndrome type: without diarrhea Qualified Code(s): K58.9 - Irritable bowel syndrome without diarrhea Plan: Discussed with patient avoiding dietary triggers. Patient will try to speak to her daughter and will try to follow low FODMAP diet. List of food recommended given to patient. Patient will also try elimination diet to see if it will help (2) Hepatic steatosis: Code(s): K76.0 - Fatty (change of) liver, not elsewhere classified Plan: CT scan did not show any acute abnormalities. Hepatic steatosis found. Patient was encouraged to lose weight. Avoid foods high in fat. Avoids Tylenol. Patient is not drinking alcohol. Encouraged exercise (3) GERD (gastroesophageal reflux disease): Code(s): K21.9 - Gastro-esophageal reflux disease without esophagitis Qualifiers: Esophagitis presence: esophagitis presence not specified Qualified Code(s): K21.9 - Gastro-esophageal reflux disease without esophagitis Plan: Will start patient on Omprazole 20 mg daily. Patient will avoid dietary triggers and late night snacking. Staying upright for minimal 3 hours after meals discussed with patient. I will see patient in 6 months, sooner as needed visit. Patient is agreeable to this plan and verbalizes understanding of instructions. She was given the opportunity to ask questions and all questions answered. Thank you for allowing me to participate in her care Medications: New omeprazole 20 mg PO DAILY 90 caps 2RF K21.9 - Gastro-esophageal reflux disease without esophagitis Coding Level of Care Code Est Pt Level 3 (22062) Diagnoses IBS (irritable bowel syndrome) K58.9 Irritable bowel syndrome type: without diarrhea Hepatic steatosis K76.0 GERD (gastroesophageal reflux disease) K21.9 Esophagitis presence: esophagitis presence not specified Time Spent (min) 30 Comment 30 minutes spent with patient and 10 minutes spent reviewing her records
[2023-03-21 16:16] VITALS: BP 103/57; PULSE 76; BMI 30.2
== END 2023-03-21 16:38 | disposition home or self-care (01) ==
PROVIDERS: PCP Family Medicine; Visit Provider Nurse Practitioner Family
DX: K58.9 Irritable bowel syndrome, unspecified (principal); K76.0 Fatty (change of) liver, not elsewhere classified; K21.9 Gastro-esophageal reflux disease without esophagitis
CPT/HCPCS: 99213

== ENCOUNTER 2023-04-19 16:06 | Outpatient (AMB) | payer OTHER, SELFPAY ==
--- NOTE | 2023-04-19 16:18 | MHC.OFFVISCO ---
Intake Intake Visit Reasons: Anticoagulation Allergies peach Allergy (Severe, Verified 04/19/23 16:16) Angioedema Medication List - Last Reconciled 04/19/23 by Kayley Toth RN acetaminophen (Tylenol Extra Strength) 500 mg PO Q6H PRN acetaminophen ER (Arthritis Pain Relief (acetaminophen) ER) 1,300 mg PO Q8H PRN ascorbic acid (vitamin C) 500 mg PO BID aspirin (Adult Aspirin Regimen) 81 mg PO DAILY 90 days cetirizine 10 mg PO DAILY cholecalciferol (vitamin D3) 50 mcg PO DAILY cyclobenzaprine 5 - 10 mg PO BEDTIME PRN multivitamin 1 tab PO DAILY omeprazole 20 mg PO DAILY warfarin 2 mg See Protocol PO DAILY Nursing Note INR: 2.3-in therapeutic range Medications and supplements reviewed- no changes No changes in health, diet, medications, or supplements, Denies any signs and symptoms of bleeding or bruising or clotting. Bleeding, bruising, clotting discussed Nutritional guidance given Dose: 3mg x 2, 6mg x 5 F/U INR: 4 weeks Patient verbalizes understanding of instructions given Anti-Coag Initial Assessment Social Hx Patient Tobacco Use Status: Never used Tobacco alcohol intake: never Alcohol intake frequency: does not drink Coding Level of Care Code Est Patient Level 1 Diagnoses Current use of anticoagulant therapy Z79.01 Results AMB INR Fingerstick AMB INR Fingerstick 2.3 Last Edit by Kayley Toth RN on 04/19/23 16:19 Assessment & Plan Assessment & Plan (1) Current use of anticoagulant therapy: Comment: Continue Coumadin. Code(s): Z79.01 - terminal manager (current) use of anticoagulants Category: Medical
[2023-04-19 16:19] LABS: Prothrombin Time Whole Bld POC 27.3 sec (11.1-13.5); ~PT, ~INR - Anti Coag Clinic 2.3 (0.9-1.1)
== END 2023-04-19 16:22 | disposition home or self-care (01) ==
LOC: HO.ACS 16:06
PROVIDERS: PCP Family Medicine; Visit Provider Internal Medicine
DX: Z79.01 Long term (current) use of anticoagulants (principal)

== ENCOUNTER → 2023-04-19 16:06 | Outpatient (BNVA) | payer OTHER, SELFPAY | PROVIDERS: PCP Family Medicine; Visit Provider Internal Medicine | DX: Z95.2 Presence of prosthetic heart valve (principal); Z79.01 Long term (current) use of anticoagulants; Z51.81 Encounter for therapeutic drug level monitoring | CPT/HCPCS: 85610; 99211 ==

== ENCOUNTER 2023-04-26 13:18 | Outpatient (AMB) | payer OTHER, SELFPAY ==
[2023-04-26 13:38] VITALS: BP 100/56; PULSE 78; O2SAT 97; BMI 30.5
--- NOTE | 2023-04-26 13:38 | MHC.OFFVIS ---
Intake Vital Signs 04/26/23 13:38 Height 4 ft 11 in Weight 150 lb 12.739 oz BMI 30.5 BP 100/56 L Blood Pressure Location Rt brachial Position Sitting Pulse 78 Pulse Oximetry (%) 97 Intake Visit Reasons: 6 MON FUP Intake Note: 6 mo follow up, pt states that she has an achey/stabbing feeling that causes shortness of breath. 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 Required: Yes Window Air Conditioner Installer Language: Glue Specialty Supervisor Name: Kamini De Leon SETH Information Interpreted: clinical only Allergies peach Allergy (Severe, Verified 04/26/23 13:42) Angioedema Medication List - Last Reconciled 04/26/23 by Terence Haynes MD acetaminophen (Tylenol Extra Strength) 500 mg PO Q6H PRN acetaminophen ER (Arthritis Pain Relief (acetaminophen) ER) 1,300 mg PO Q8H PRN ascorbic acid (vitamin C) 500 mg PO BID aspirin (Adult Aspirin Regimen) 81 mg PO DAILY 90 days cetirizine 10 mg PO DAILY cholecalciferol (vitamin D3) 50 mcg PO DAILY cyclobenzaprine 5 - 10 mg PO BEDTIME PRN multivitamin 1 tab PO DAILY omeprazole 20 mg PO DAILY warfarin 2 mg See Protocol PO DAILY HPI HPI Comments History of Present Illness Details Pleasant 48-year-old lady here for history of aortic valve replacement. She has history of rheumatic heart disease and underwent mechanical aortic valve replacement by Dr. Daniel in 2009 for severe aortic valve regurgitation. She had a # 23 [place] mechanical prosthetic valve. she has been on Coumadin since then. She was sent for echocardiography. ECHO showed normally functioning mechanical valve in the aortic position. She was also noticed to have mild mitral valve stenosis. As mentioned she had rheumatic heart disease. She has been doing well on follow-up. She is denying chest discomfort or any significant shortness of breath. She has been having menorrhagia and will be undergoing surgery for that. He is on Coumadin for the mechanical aortic valve. She has normal LV function and has been in sinus rhythm. 04/26/2023: She returns for follow-up. She is complaining of occasional shortness of breath when she is laying down. She is describing orthopnea like episode but does not have any dyspnea or any other symptoms/signs of heart failure. She does snore at night and has daytime fatigue and headaches. She has never had sleep study. [facility] Medical History Hepatic steatosis Chronic pancreatitis Diverticulosis History of COVID-19 Diabetes Anticoagulation goal of INR 2 to 3 Aortic regurgitation Rheumatic heart disease Surgical History History of esophagogastroduodenoscopy (EGD) Hx of colonoscopy History of section Heart valve replaced Social History Alcohol intake: never Patient Tobacco Use Status: Never used Tobacco Gender identity: Female Female Reproductive History Menstrual Age of Menarche: 14 Review of Systems Const Denies chills, Denies fatigue, Denies fever(s), Denies frequent falls, Denies weakness, Denies weight gain and Denies weight loss ENT Denies dizziness Card Denies leg edema, Denies lightheadedness, Denies palpitations, Denies dyspnea on exertion, Denies orthopnea and Denies other (loss of consciousness) Resp Denies cough and Denies dyspnea on exertion GI Denies hematochezia and Denies change in stool character Musc Denies abnormal gait, Denies muscle weakness, Denies numbness, Denies radiating pain into limb and Denies tingling Neuro Denies abnormal gait, Denies dizziness, Denies frequent falls, Denies numbness, Denies tingling and Denies weakness Endo Denies fatigue and Denies palpitations Physical Exam Vital Signs: Last Vital Signs Pulse 78 04/26/23 13:38 BP 100/56 L 04/26/23 13:38 Pulse Ox 97 04/26/23 13:38 BMI result Body Mass Index 30.5 GENERAL APPEARANCE: in no acute distress, well developed, well nourished. NECK/THYROID: no carotid bruit, no jugular venous distention. SKIN: no suspicious lesions, warm and dry. HEART: Mechanical 2nd heart sound, grade 1/6 systolic murmur in the aortic area, regular rate and rhythm. LUNGS: clear to auscultation bilaterally. ABDOMEN: normal, bowel sounds present, soft, nontender, nondistended. EXTREMITIES: no clubbing, cyanosis, or edema. PERIPHERAL PULSES: equal. NEUROLOGIC: nonfocal, alert and oriented. PSYCH: mood/affect full range. Office Procedures EKG Details: Sinus rhythm 79 beats per minute, right bundle-branch block, QTC 481 milliseconds. [id number], Complete Assessment & Plan Assessment & Plan (1) Sleep disorder breathing: Code(s): G47.30 - Sleep apnea, unspecified (2) S/P AVR: Code(s): Z95.2 - Presence of prosthetic heart valve Plan Pleasant 48 year female who is here for follow-up. She has rheumatic heart disease and previously had aortic valve replacement with mechanical aortic valve and has been on Coumadin and aspirin. INR target is 2-3. She had mild mitral stenosis in the past. She is complaining of some orthopnea like episodes but I think these are linked with sleep apnea. I am going to arrange a sleep study. I think we should check her aortic valve as well as the mitral valve with echocardiography. As mentioned she had mitral stenosis in the past. Denying any other symptoms currently. She will see us back in few months. Thank you for allowing me to participate in the care of your patient. Please feel free to contact me if you have any questions. Orders: Orders RT PSG in-lab sleep study Today G47.30 - Sleep apnea, unspecified CA echo transthoracic complete Today Z95.2 - Presence of prosthetic heart valve Coding Level of Care Code Est Pt Level 4 (46309) Diagnoses Sleep disorder breathing G47.30 S/P AVR Z95.2 CPT Codes EKG - CPT: 87383-[id number], Complete ([id number])
== END 2023-04-26 14:18 | disposition home or self-care (01) ==
PROVIDERS: PCP Family Medicine; Visit Provider Internal Medicine Cardiovascular Disease
DX: G47.30 Sleep apnea, unspecified (principal); Z95.2 Presence of prosthetic heart valve
CPT/HCPCS: 93010; 99214

== ENCOUNTER → 2023-04-26 13:18 | Outpatient (BNVA) | payer OTHER, SELFPAY | PROVIDERS: PCP Family Medicine; Visit Provider Internal Medicine Cardiovascular Disease | DX: G47.30 Sleep apnea, unspecified (principal); Z95.2 Presence of prosthetic heart valve; Z79.01 Long term (current) use of anticoagulants; Z79.82 Long term (current) use of aspirin | CPT/HCPCS: 93005; 99212 ==

== ENCOUNTER 2023-05-17 16:00 | Outpatient (AMB) | payer OTHER, SELFPAY ==
--- NOTE | 2023-05-17 16:04 | MHC.OFFVISCO ---
Intake Intake Visit Reasons: Anticoagulation Allergies peach Allergy (Severe, Verified 05/17/23 16:00) Angioedema Medication List - Last Reconciled 05/17/23 by Kayley Toth RN acetaminophen (Tylenol Extra Strength) 500 mg PO Q6H PRN acetaminophen ER (Arthritis Pain Relief (acetaminophen) ER) 1,300 mg PO Q8H PRN ascorbic acid (vitamin C) 500 mg PO BID aspirin (Adult Aspirin Regimen) 81 mg PO DAILY 90 days cetirizine 10 mg PO DAILY cholecalciferol (vitamin D3) 50 mcg PO DAILY cyclobenzaprine 5 - 10 mg PO BEDTIME PRN multivitamin 1 tab PO DAILY omeprazole 20 mg PO DAILY warfarin 2 mg See Protocol PO DAILY Nursing Note INR: 2.2- in therapeutic range 2-3 Medications and supplements reviewed- no changes No changes in health, diet, medications, or supplements, Denies any signs and symptoms of bleeding or bruising or clotting. Bleeding, bruising, clotting discussed Nutritional guidance given Dose: 3mg x 2, 6mg x 5 F/U INR: 4 weeks Patient verbalizes understanding of instructions given pt with c.o left temporal headache - started this week, states history of 1-2 years. only on tylenol, states not effective instructed to go to urgent care or ed and call pcp to report. pt bp 110/70 Anti-Coag Initial Assessment Social Hx Patient Tobacco Use Status: Never used Tobacco alcohol intake: never Alcohol intake frequency: does not drink Coding Level of Care Code Est Patient Level 1 Diagnoses Current use of anticoagulant therapy Z79.01 Assessment & Plan Assessment & Plan (1) Current use of anticoagulant therapy: Comment: Continue Coumadin. Code(s): Z79.01 - jail (current) use of anticoagulants Category: Medical
[2023-05-17 16:06] LABS: Prothrombin Time Whole Bld POC 26.3 sec (11.1-13.5); ~PT, ~INR - Anti Coag Clinic 2.2 (0.9-1.1)
== END 2023-05-17 16:14 | disposition home or self-care (01) ==
LOC: HO.ACS 16:00
PROVIDERS: PCP Family Medicine; Visit Provider Internal Medicine
DX: Z79.01 Long term (current) use of anticoagulants (principal)

== ENCOUNTER → 2023-05-17 16:00 | Outpatient (BNVA) | payer OTHER, SELFPAY | PROVIDERS: PCP Family Medicine; Visit Provider Internal Medicine | DX: Z95.2 Presence of prosthetic heart valve (principal); Z79.01 Long term (current) use of anticoagulants; Z51.81 Encounter for therapeutic drug level monitoring | CPT/HCPCS: 85610; 99211 ==

== ENCOUNTER 2023-06-12 15:41 | Outpatient (AMB) | payer OTHER, SELFPAY ==
--- NOTE | 2023-06-12 15:48 | A.OFFVIS_ITS ---
Intake Vital Signs 06/12/23 15:56 Height 4 ft 11 in Weight 156 lb BMI 31.5 BP 140/76 H Blood Pressure Location Rt brachial Position Sitting Intake Visit Reasons: 3 months GERD Intake Note: Thalia presents in office today in follow up of GERD. CC: Patient reports she has been doing well. She would like to have labs done to check her liver as she was diagnosed with fatty liver. 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 Patient will try to speak to her daughter and will try to follow low FODMAP diet. List of food recommended given to patient. Patient will also try elimination diet to see if it will help Hepatic steatosis CT scan did not show any acute abnormalities. Hepatic steatosis found. Patient was encouraged to lose weight. Avoid foods high in fat. Avoids Tylenol. Patient is not drinking alcohol. Encouraged exercise GERD (gastroesophageal reflux disease) Will start patient on Omprazole 20 mg daily. Patient will avoid dietary triggers and late night snacking. Staying upright for minimal 3 hours after meals discussed with patient. I will see patient in 6 months, sooner as needed visit. Patient is agreeable to this plan and verbalizes understanding of instructions. She was given the opportunity to ask questions and all questions answered. ? Thank you for allowing me to participate in her care Plan Medications New omeprazole 20 mg PO DAILY 90 caps 2RF K21.9 - Gastro-esophageal reflux disease without esophagitis TODAY'S VISIT Patient is here today for follow-up. Patient reports that since she started taking omeprazole she has been doing better. Patient denies any dyspepsia, dysphagia or odynophagia. Denies any abdominal pain or discomfort. Patient reports that she change her diet. Patient is concerned about her fatty liver. Discussed with patient the importance of avoiding food high in fat. Gaining weight and not exercising. Patient was encouraged to do that last time. Her li sigifredo enzymes were normal. Discussed with patient that this could be hereditary very and due to weight gain. Patient denies any dyspepsia, dysphagia or odynophagia. Patient denies any GI concerning symptoms today. [facility] Medical History Hepatic steatosis Chronic pancreatitis Diverticulosis History of COVID-19 Diabetes Anticoagulation goal of INR 2 to 3 Aortic regurgitation Rheumatic heart disease Surgical History History of esophagogastroduodenoscopy (EGD) Hx of colonoscopy History of section Heart valve replaced Social History Alcohol intake: never Patient Tobacco Use Status: Never used Tobacco Gender identity: Female Female Reproductive History Menstrual Age of Menarche: 14 Review of Systems Const Denies weight gain and Denies weight loss ENT Reports no additional complaints, Denies dysphagia and Denies odynophagia Card Reports no additional complaints Resp Reports no additional complaints GI Denies abdominal pain, Denies belching, Denies melena, Denies bloating, Denies change in bowel habits, Denies dysphagia, Denies excessive flatus, Denies dyspepsia, Denies heartburn, Denies diarrhea, Denies loose stools, Denies nausea, Denies odynophagia and Denies vomiting Musc Reports no additional complaints Neuro Reports no additional complaints Psych Reports no additional complaints Endo Reports no additional complaints Physical Exam Vital Signs: Last Vital Signs BP 140/76 H 06/12/23 15:56 BMI result Body Mass Index 31.5 Const General: healthy appearing, no acute distress and well developed Nutritional Appearance: obese Orientation/consciousness: patient oriented x3 HEENT Head: Yes normal to inspection, Yes normocephalic and Yes atraumatic Face and sinus: Yes normal facial exam Mouth: Normal oral and palatal mucosa present Throat: Yes posterior oropharynx normal, Yes tonsils normal and Yes uvula midline Eyes General: appearance normal, both eyes and all related structures Neck Neck: Yes normal visual inspection, Yes full ROM and Yes trachea midline Thyroid: Thyroid normal Resp Effort & Inspection: normal respiratory effort, able to speak in complete sentences, no tracheal deviation and symmetric chest movement Auscultation: clear to auscultation bilaterally Cardio Rate: regular rate Heart sounds: S1 normal heart sound present and S2 normal heart sound present GI Inspection: Yes normal to inspection, No distended and Yes obesity Palpation (GI): Soft to palpation, not firm, nontender and No hepatosplenomegaly present Auscultation: normal bowel sounds General: Yes no CVA tenderness Back/Spine/Pelvis Back: no CVA tenderness Skin General skin exam: elasticity normal, turgor normal and dry skin Neuro General: patient oriented x3 Psych Appearance: grossly normal Mental Status: mental status grossly normal Affect: normal affect Assessment & Plan Assessment & Plan (1) Hepatic steatosis: Code(s): K76.0 - Fatty (change of) liver, not elsewhere classified (2) Diverticulosis: Code(s): K57.90 - Diverticulosis of intestine, part unspecified, without perforation or abscess without bleeding (3) GERD (gastroesophageal reflux disease): Code(s): K21.9 - Gastro-esophageal reflux disease without esophagitis Qualifiers: Esophagitis presence: esophagitis presence not specified Qualified Code(s): K21.9 - Gastro-esophageal reflux disease without esophagitis Plan Continue diet and exercise. Patient will continue taking omeprazole every morning half an hour before breakfast. Discussed with patient avoiding dietary triggers and late night snacking. Staying upright for minimum 3 hours after meals discussed with patient. Patient will follow-up in our office in 6 months. Will repeat liver enzymes will send patient also for ultrasound. Patient is agreeable to plan of care and verbalizes understanding of instructions. She was given the opportunity to ask questions and all questions answered. Thank you for allowing me to participate in her care Medications: New hydrocortisone 2.5% (Proctosol HC) 1 appl AL BID-QID PRN 30 grams 2RF hemorrhoids K64.9 - Unspecified hemorrhoids Refilled omeprazole 20 mg PO DAILY 90 caps 2RF K21.9 - Gastro-esophageal reflux disease without esophagitis Coding Level of Care Code Est Pt Level 3 (64668) Diagnoses Hepatic steatosis K76.0 Diverticulosis K57.90 Gastroesophageal reflux disease, unspecified whether esophagitis present K21.9 Esophagitis presence: esophagitis presence not specified Time Spent (min) 25 Comment 15 minutes spent with patient and additional 10 minutes spent reviewing her records
[2023-06-12 15:56] VITALS: BP 140/76; BMI 31.5
== END 2023-06-12 16:30 | disposition home or self-care (01) ==
PROVIDERS: PCP Family Medicine; Visit Provider Nurse Practitioner Family
DX: K76.0 Fatty (change of) liver, not elsewhere classified (principal); K57.90 Diverticulosis of intestine, part unspecified, without perforation or abscess without bleeding; K21.9 Gastro-esophageal reflux disease without esophagitis
CPT/HCPCS: 99213

== ENCOUNTER → 2023-06-12 15:41 | Outpatient (BNVA) | payer OTHER, SELFPAY | PROVIDERS: PCP Family Medicine; Visit Provider Nurse Practitioner Family | DX: K76.0 Fatty (change of) liver, not elsewhere classified (principal); K57.90 Diverticulosis of intestine, part unspecified, without perforation or abscess without bleeding; K21.9 Gastro-esophageal reflux disease without esophagitis | CPT/HCPCS: 99212 ==

== ENCOUNTER 2023-06-20 15:58 | Outpatient (AMB) | payer OTHER, SELFPAY ==
[2023-06-20 16:04] LABS: Prothrombin Time Whole Bld POC 48.2 sec (11.1-13.5)
--- NOTE | 2023-06-20 16:13 | MHC.OFFVISCO ---
Intake Intake Visit Reasons: Anticoagulation Allergies peach Allergy (Severe, Verified 06/20/23 15:59) Angioedema No Known Drug Allergies Allergy (Unknown, Verified 06/20/23 15:59) Unknown Medication List - Last Reconciled 06/20/23 by Ruthy Newby RN acetaminophen (Tylenol Extra Strength) 500 mg PO Q6H PRN acetaminophen ER (Arthritis Pain Relief (acetaminophen) ER) 1,300 mg PO Q8H PRN ascorbic acid (vitamin C) 500 mg PO BID aspirin (Adult Aspirin Regimen) 81 mg PO DAILY 90 days cetirizine 10 mg PO DAILY cholecalciferol (vitamin D3) 50 mcg PO DAILY cyclobenzaprine 5 - 10 mg PO BEDTIME PRN hydrocortisone 2.5% (Proctosol HC) 1 appl [place] BID-QID PRN multivitamin 1 tab PO DAILY omeprazole 20 mg PO DAILY warfarin 2 mg See Protocol PO DAILY Nursing Note t/c from pt asking to be seen today-she was in the ER yesterday after several days of having extreme nausea and diarrhea - she was given antiemetic and hydration and was instructed to have INR chk today. She is not sure what her INR was yesterday but was instructed to not take warfarin yesterday. INR 4.0 out of therapeutic range Medications and supplements reviewed Patient status: feeling better today but not eating much, just pedialyte and a few soft foods, still has soft yellow stools, Medications or supplements: no changes Diet: poor Denies any signs and symptoms of bleeding or clotting or unusual bruising Bleeding, bruising, clotting discussed Nutritional guidance given: try broth and avocado or soft foods Dose: held yesterday per [facility] and will hold again today F/U INR Date: 1 week?? Patient verbalizing understanding of instructions given. Anti-Coag Initial Assessment Social Hx Patient Tobacco Use Status: Never used Tobacco alcohol intake: never Alcohol intake frequency: does not drink Coding Level of Care Code Est Patient Level 1
== END 2023-06-20 16:22 | disposition home or self-care (01) ==
LOC: HO.ACS 15:58
PROVIDERS: PCP Family Medicine; Visit Provider Internal Medicine
DX: Z79.01 Long term (current) use of anticoagulants (principal)

== ENCOUNTER → 2023-06-20 15:58 | Outpatient (BNVA) | payer OTHER, SELFPAY | PROVIDERS: PCP Family Medicine; Visit Provider Internal Medicine | DX: Z95.2 Presence of prosthetic heart valve (principal); Z79.01 Long term (current) use of anticoagulants; Z51.81 Encounter for therapeutic drug level monitoring | CPT/HCPCS: 85610; 99211 ==

== ENCOUNTER 2023-06-28 15:21 | Outpatient (AMB) | payer OTHER, SELFPAY ==
[2023-06-28 15:26] LABS: Prothrombin Time Whole Bld POC 28.7 sec (11.1-13.5); ~PT, ~INR - Anti Coag Clinic 2.4 (0.9-1.1)
--- NOTE | 2023-06-28 15:32 | MHC.OFFVISCO ---
Intake Intake Visit Reasons: Anticoagulation Allergies peach Allergy (Severe, Verified 06/28/23 15:21) Angioedema No Known Drug Allergies Allergy (Unknown, Verified 06/28/23 15:21) Unknown Medication List - Last Reconciled 06/28/23 by Ruthy Newby RN acetaminophen (Tylenol Extra Strength) 500 mg PO Q6H PRN acetaminophen ER (Arthritis Pain Relief (acetaminophen) ER) 1,300 mg PO Q8H PRN ascorbic acid (vitamin C) 500 mg PO BID aspirin (Adult Aspirin Regimen) 81 mg PO DAILY 90 days cetirizine 10 mg PO DAILY cholecalciferol (vitamin D3) 50 mcg PO DAILY cyclobenzaprine 5 - 10 mg PO BEDTIME PRN hydrocortisone 2.5% (Proctosol HC) 1 appl [place] BID-QID PRN multivitamin 1 tab PO DAILY omeprazole 20 mg PO DAILY warfarin 2 mg See Protocol PO DAILY Nursing Note INR: 2.4 in therapeutic range Medications and supplements reviewed pt feeling much better - recovered from nausea and diarrhea feeling better and eating No changes in medications, or supplements, Denies any signs and symptoms of bleeding or bruising or clotting. Bleeding, bruising, clotting discussed Nutritional guidance given Dose: 3mg x 2 days/ 6mg x 5 days F/U INR: 1 month Patient verbalizes understanding of instructions given Anti-Coag Initial Assessment Social Hx Patient Tobacco Use Status: Never used Tobacco alcohol intake: never Alcohol intake frequency: does not drink Coding Level of Care Code Est Patient Level 1 Diagnoses Current use of anticoagulant therapy Z79.01 Assessment & Plan Assessment & Plan (1) Current use of anticoagulant therapy: Comment: Continue Coumadin. 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
== END 2023-06-28 15:34 | disposition home or self-care (01) ==
LOC: HO.ACS 15:21
PROVIDERS: PCP Family Medicine; Visit Provider Internal Medicine
DX: Z79.01 Long term (current) use of anticoagulants (principal)

== ENCOUNTER → 2023-06-28 15:21 | Outpatient (BNVA) | payer OTHER, SELFPAY | PROVIDERS: PCP Family Medicine; Visit Provider Internal Medicine | DX: Z95.2 Presence of prosthetic heart valve (principal); Z79.01 Long term (current) use of anticoagulants; Z51.81 Encounter for therapeutic drug level monitoring | CPT/HCPCS: 85610; 99211 ==

== ENCOUNTER → 2023-07-26 15:16 | Outpatient (BNVA) | payer OTHER, SELFPAY | PROVIDERS: PCP Family Medicine; Visit Provider Internal Medicine | DX: Z95.2 Presence of prosthetic heart valve (principal); Z51.81 Encounter for therapeutic drug level monitoring; Z79.01 Long term (current) use of anticoagulants | CPT/HCPCS: 85610; 99211 ==

== ENCOUNTER 2023-08-09 15:44 | Outpatient (AMB) | payer OTHER, SELFPAY ==
[2023-08-09 15:51] LABS: Prothrombin Time Whole Bld POC 41.9 sec (11.1-13.5); ~PT, ~INR - Anti Coag Clinic 3.5 (0.9-1.1)
--- NOTE | 2023-08-09 15:53 | MHC.OFFVISCO ---
Intake Intake Visit Reasons: Anticoagulation Allergies peach Allergy (Severe, Verified 08/09/23 15:45) Angioedema No Known Drug Allergies Allergy (Unknown, Verified 08/09/23 15:45) Unknown Medication List - Last Reconciled 08/09/23 by Tricia Stock RN acetaminophen (Tylenol Extra Strength) 500 mg PO Q6H PRN acetaminophen ER (Arthritis Pain Relief (acetaminophen) ER) 1,300 mg PO Q8H PRN ascorbic acid (vitamin C) 500 mg PO BID aspirin (Adult Aspirin Regimen) 81 mg PO DAILY 90 days cetirizine 10 mg PO DAILY cholecalciferol (vitamin D3) 50 mcg PO DAILY cyclobenzaprine 5 - 10 mg PO BEDTIME PRN hydrocortisone 2.5% (Proctosol HC) 1 appl [place] BID-QID PRN multivitamin 1 tab PO DAILY omeprazole 20 mg PO DAILY sumatriptan succinate take 1 tab at onset of headache; if no relief may repeat 1 tab after at least 2 hrs; max = 4 tabs/24 hr PO warfarin 2 mg See Protocol PO DAILY Nursing Note NO CP,SOB,DIET/MED CHANGES,FALLS OR SX OF BLEEDING. HOLD WARFARIN TODAY THEN RESUME USUAL DOSE AND FOLLOW-UP IN 2 WEEKS. GOOD UNDERSTANDING OF DOSING INSTR. Anti-Coag Initial Assessment Social Hx Patient Tobacco Use Status: Never used Tobacco alcohol intake: never Alcohol intake frequency: does not drink Coding Level of Care Code Est Patient Level 1 Diagnoses Current use of anticoagulant therapy Z79.01 Assessment & Plan Assessment & Plan (1) Current use of anticoagulant therapy: Comment: Continue Coumadin. 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
== END 2023-08-09 15:54 | disposition home or self-care (01) ==
LOC: HO.ACS 15:44
PROVIDERS: PCP Family Medicine; Visit Provider Internal Medicine
DX: Z79.01 Long term (current) use of anticoagulants (principal)

== ENCOUNTER → 2023-08-09 15:44 | Outpatient (BNVA) | payer OTHER, SELFPAY | PROVIDERS: PCP Family Medicine; Visit Provider Internal Medicine | DX: Z95.2 Presence of prosthetic heart valve (principal); Z79.01 Long term (current) use of anticoagulants; Z51.81 Encounter for therapeutic drug level monitoring | CPT/HCPCS: 85610; 99211 ==

== ENCOUNTER 2023-08-23 15:57 | Outpatient (AMB) | payer OTHER, SELFPAY ==
--- NOTE | 2023-08-23 16:02 | MHC.OFFVISCO ---
Intake Intake Visit Reasons: Anticoagulation Allergies peach Allergy (Severe, Verified 08/23/23 15:58) Angioedema No Known Drug Allergies Allergy (Unknown, Verified 08/23/23 15:58) Unknown Medication List - Last Reconciled 08/23/23 by Kayley Toth RN acetaminophen (Tylenol Extra Strength) 500 mg PO Q6H PRN acetaminophen ER (Arthritis Pain Relief (acetaminophen) ER) 1,300 mg PO Q8H PRN ascorbic acid (vitamin C) 500 mg PO BID aspirin (Adult Aspirin Regimen) 81 mg PO DAILY 90 days cetirizine 10 mg PO DAILY cholecalciferol (vitamin D3) 50 mcg PO DAILY cyclobenzaprine 5 - 10 mg PO BEDTIME PRN hydrocortisone 2.5% (Proctosol HC) 1 appl [place] BID-QID PRN multivitamin 1 tab PO DAILY omeprazole 20 mg PO DAILY sumatriptan succinate take 1 tab at onset of headache; if no relief may repeat 1 tab after at least 2 hrs; max = 4 tabs/24 hr PO warfarin 2 mg See Protocol PO DAILY Nursing Note INR 3.6-? out of therapeutic range of 2-3 Medications and supplements reviewed Patient status: no c.o Medications or supplements: no changes Diet: same Denies any signs and symptoms of bleeding or clotting or unusual bruising Bleeding, bruising, clotting discussed Nutritional guidance given: eat greens to lower Dose: 3mg today then reduce weekly dosing to 3mg x 3, 6mg x 4 F/U INR Date : 2 weeks Patient verbalizing understanding of instructions given. Anti-Coag Initial Assessment Social Hx Patient Tobacco Use Status: Never used Tobacco alcohol intake: never Alcohol intake frequency: does not drink Coding Level of Care Code Est Patient Level 1 Diagnoses Current use of anticoagulant therapy Z79.01 Assessment & Plan Assessment & Plan (1) Current use of anticoagulant therapy: Comment: Continue Coumadin. Code(s): Z79.01 - detention (current) use of anticoagulants Category: Medical
[2023-08-23 16:03] LABS: Prothrombin Time Whole Bld POC 43.5 sec (11.1-13.5); ~PT, ~INR - Anti Coag Clinic 3.6 (0.9-1.1)
== END 2023-08-23 16:07 | disposition home or self-care (01) ==
LOC: HO.ACS 15:57
PROVIDERS: PCP Family Medicine; Visit Provider Internal Medicine
DX: Z79.01 Long term (current) use of anticoagulants (principal)

== ENCOUNTER → 2023-08-23 15:57 | Outpatient (BNVA) | payer OTHER, SELFPAY | PROVIDERS: PCP Family Medicine; Visit Provider Internal Medicine | DX: Z95.2 Presence of prosthetic heart valve (principal); Z79.01 Long term (current) use of anticoagulants; Z51.81 Encounter for therapeutic drug level monitoring | CPT/HCPCS: 85610; 99211 ==

== ENCOUNTER 2023-08-30 15:09 | Outpatient (AMB) | payer OTHER, SELFPAY ==
[2023-08-30 15:15] LABS: Prothrombin Time Whole Bld POC 27.9 sec (11.1-13.5); ~PT, ~INR - Anti Coag Clinic 2.3 (0.9-1.1)
--- NOTE | 2023-08-30 15:15 | MHC.OFFVISCO ---
Intake Intake Visit Reasons: Anticoagulation Allergies peach Allergy (Severe, Verified 08/30/23 15:10) Angioedema No Known Drug Allergies Allergy (Unknown, Verified 08/30/23 15:10) Unknown Medication List - Last Reconciled 08/30/23 by Kayley Toth RN acetaminophen (Tylenol Extra Strength) 500 mg PO Q6H PRN acetaminophen ER (Arthritis Pain Relief (acetaminophen) ER) 1,300 mg PO Q8H PRN ascorbic acid (vitamin C) 500 mg PO BID aspirin (Adult Aspirin Regimen) 81 mg PO DAILY 90 days cetirizine 10 mg PO DAILY cholecalciferol (vitamin D3) 50 mcg PO DAILY cyclobenzaprine 5 - 10 mg PO BEDTIME PRN hydrocortisone 2.5% (Proctosol HC) 1 appl [place] BID-QID PRN multivitamin 1 tab PO DAILY omeprazole 20 mg PO DAILY sumatriptan succinate take 1 tab at onset of headache; if no relief may repeat 1 tab after at least 2 hrs; max = 4 tabs/24 hr PO warfarin 2 mg See Protocol PO DAILY Nursing Note INR: 2.3- in therapeutic range of 2-3 Medications and supplements reviewed- no changes No changes in health, diet, medications, or supplements, Denies any signs and symptoms of bleeding or bruising or clotting. Bleeding, bruising, clotting discussed Nutritional guidance given Dose: cont same dosing-3mg x 3, 6mg x 4 F/U INR: 2 weeks Patient verbalizes understanding of instructions given Anti-Coag Initial Assessment Social Hx Patient Tobacco Use Status: Never used Tobacco alcohol intake: never Alcohol intake frequency: does not drink Coding Level of Care Code Est Patient Level 1 Diagnoses Current use of anticoagulant therapy Z79.01 Assessment & Plan Assessment & Plan (1) Current use of anticoagulant therapy: Comment: Continue Coumadin. Code(s): Z79.01 - alf (current) use of anticoagulants Category: Medical
== END 2023-08-30 15:22 | disposition home or self-care (01) ==
LOC: HO.ACS 15:09
PROVIDERS: PCP Family Medicine; Visit Provider Internal Medicine
DX: Z79.01 Long term (current) use of anticoagulants (principal)

== ENCOUNTER → 2023-08-30 15:09 | Outpatient (BNVA) | payer OTHER, SELFPAY | PROVIDERS: PCP Family Medicine; Visit Provider Internal Medicine | DX: I09.9 Rheumatic heart disease, unspecified (principal); G47.30 Sleep apnea, unspecified; Z95.2 Presence of prosthetic heart valve; Z79.01 Long term (current) use of anticoagulants; Z51.81 Encounter for therapeutic drug level monitoring | CPT/HCPCS: 85610; 99211; 99212 ==

== ENCOUNTER 2023-08-30 15:24 | Outpatient (AMB) | payer OTHER, SELFPAY ==
[2023-08-30 15:56] VITALS: BP 130/62; PULSE 70; BMI 31.4
--- NOTE | 2023-08-30 15:56 | MHC.OFFVIS ---
Intake Vital Signs 08/30/23 15:56 Height 4 ft 11 in Weight 155 lb 10.342 oz BMI 31.4 BP 130/62 Blood Pressure Location Rt brachial Position Sitting Pulse 70 Pulse Source Pulse Oximeter Intake Visit Reasons: 4 mth f/up Intake Note: pt its here for a 4 mnth f/up pt states that she its doing fine. 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 Accompanied by: Self / Same As Patient Allergies peach Allergy (Severe, Verified 08/30/23 15:10) Angioedema No Known Drug Allergies Allergy (Unknown, Verified 08/30/23 15:10) Unknown Medication List - Last Reconciled 08/30/23 by Terence Haynes MD ascorbic acid (vitamin C) 500 mg PO BID aspirin (Adult Aspirin Regimen) 81 mg PO DAILY 90 days cetirizine 10 mg PO DAILY cholecalciferol (vitamin D3) 50 mcg PO DAILY hydrocortisone 2.5% (Proctosol HC) 1 appl [place] BID-QID PRN omeprazole 20 mg PO DAILY sumatriptan succinate take 1 tab at onset of headache; if no relief may repeat 1 tab after at least 2 hrs; max = 4 tabs/24 hr PO warfarin 2 mg See Protocol PO DAILY HPI HPI Comments History of Present Illness Details Pleasant 48-year-old lady here for history of aortic valve replacement. She has history of rheumatic heart disease and underwent mechanical aortic valve replacement by Dr. Daniel in 2009 for severe aortic valve regurgitation. She had a # 23 [place] mechanical prosthetic valve. she has been on Coumadin since then. She was sent for echocardiography. ECHO showed normally functioning mechanical valve in the aortic position. She was also noticed to have mild mitral valve stenosis. As mentioned she had rheumatic heart disease. She has been doing well on follow-up. She is denying chest discomfort or any significant shortness of breath. She has been having menorrhagia and will be undergoing surgery for that. He is on Coumadin for the mechanical aortic valve. She has normal LV function and has been in sinus rhythm. 04/26/2023: She returns for follow-up. She is complaining of occasional shortness of breath when she is laying down. She is describing orthopnea like episode but does not have any dyspnea or any other symptoms/signs of heart failure. She does snore at night and has daytime fatigue and headaches. She has never had sleep study. 08/30/2023: She returns for follow-up. On last visit referred for echocardiography and sleep study but it appears she did not get both. She is saying that she did not get a call from them. She is saying that she is getting more headaches. She is asking whether Coumadin is the cause and if she can be changed from Coumadin to some other blood thinner. [facility] Medical History Hepatic steatosis Chronic pancreatitis Diverticulosis History of COVID-19 Diabetes Anticoagulation goal of INR 2 to 3 Aortic regurgitation Rheumatic heart disease Surgical History History of esophagogastroduodenoscopy (EGD) Hx of colonoscopy History of section Heart valve replaced Social History Alcohol intake: never Patient Tobacco Use Status: Never used Tobacco Gender identity: Female Female Reproductive History Menstrual Age of Menarche: 14 Review of Systems Const Denies chills, Denies fatigue, Denies fever(s), Denies frequent falls, Denies weakness, Denies weight gain and Denies weight loss ENT Denies dizziness Card Denies chest pain, Denies leg edema, Denies lightheadedness, Denies palpitations, Denies dyspnea and Denies dyspnea on exertion Resp Denies cough, Denies dyspnea and Denies dyspnea on exertion GI Denies hematochezia Musc Denies abnormal gait, Denies muscle weakness, Denies numbness, Denies radiating pain into limb and Denies tingling Neuro Denies abnormal gait, Denies dizziness, Denies frequent falls, Denies numbness, Denies tingling and Denies weakness Endo Denies fatigue and Denies palpitations Physical Exam Vital Signs: Last Vital Signs Pulse 70 08/30/23 15:56 BP 130/62 08/30/23 15:56 BMI result Body Mass Index 31.4 GENERAL APPEARANCE: in no acute distress, well developed, well nourished. NECK/THYROID: no carotid bruit, no jugular venous distention. SKIN: no suspicious lesions, warm and dry. HEART: Mechanical 2nd heart sound, grade 1/6 systolic murmur in the aortic area, regular rate and rhythm. LUNGS: clear to auscultation bilaterally. ABDOMEN: normal, bowel sounds present, soft, nontender, nondistended. EXTREMITIES: no clubbing, cyanosis, or edema. PERIPHERAL PULSES: equal. NEUROLOGIC: nonfocal, alert and oriented. PSYCH: mood/affect full range. Assessment & Plan Assessment & Plan (1) S/P AVR: Code(s): Z95.2 - Presence of prosthetic heart valve (2) Rheumatic heart disease: Comment: Involvement of aortic and mitral valve. She has aortic valve replacement with mechanical valve. She has mild mitral valve stenosis. Code(s): I09.9 - Rheumatic heart disease, unspecified (3) Sleep disorder breathing: Code(s): G47.30 - Sleep apnea, unspecified Plan Very pleasant 48-year-old female who is here for follow-up. She has background history of rheumatic valvular disease and underwent aortic valve replacement with mechanical valve in the past. She had mild mitral valve stenosis in the past. Our plan was to repeat echocardiography will it appears she did not get any calls. We will arrange ECHO and also arrange a sleep study because she clearly has some symptoms of sleep apnea. Her headaches could be linked with sleep apnea also. I have explained to her that with mechanical valves currently only recommended anticoagulation is Coumadin. NOACS were studied but lead to more valvular thrombosis and currently are not recommended. She will see us back in few months. Thank you for allowing me to participate in the care of your patient. Please feel free to contact me if you have any questions. Coding Level of Care Code Est Pt Level 3 (65420) Diagnoses S/P AVR Z95.2 Rheumatic heart disease I09.9 Sleep disorder breathing G47.30
== END 2023-08-30 16:26 | disposition home or self-care (01) ==
PROVIDERS: PCP Family Medicine; Visit Provider Internal Medicine Cardiovascular Disease
DX: Z95.2 Presence of prosthetic heart valve (principal); I09.9 Rheumatic heart disease, unspecified; G47.30 Sleep apnea, unspecified
CPT/HCPCS: 99213

== ENCOUNTER → 2023-09-19 14:21 | Outpatient (REF) | payer OTHER, SELFPAY ==
--- NOTE | 2023-09-19 14:24 | CA_ITS ---
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 The calculated ejection fraction is 57% by biplane method. - A mechanical prosthetic aortic valve is present. The prosthetic aortic valve appears to be functioning normally. - There is moderate mitral valve stenosis. Findings Left Ventricle Normal left ventricular cavity size. There is normal left ventricular wall thickness. The left ventricular systolic function is normal. The calculated ejection fraction is 57% by biplane method. There is no evidence of regional wall motion abnormalities. LV peak GLS -17.4%. Right Ventricle Normal right ventricular cavity size and systolic function. Atria The left atrium is mildly dilated. The right atrium is normal in size. Aortic Valve A mechanical prosthetic aortic valve is present. The prosthetic aortic valve appears to be functioning normally. The mean gradient is 14 mmHg. There is no aortic valve regurgitation. Mitral Valve The mitral valve appears rheumatic. There is mild anterior and posterior mitral leaflet thickening. There is mild mitral valve regurgitation. There is moderate mitral valve stenosis. Pulmonic Valve The pulmonic valve was not well visualized. Tricuspid Valve There is trace tricuspid valve regurgitation. There is no evidence of pulmonary hypertension. Great Vessels The asc aorta and aortic arch are normal in size. Venous The inferior vena cava is normal in size and collapses greater than 50% with inspiration. Pericardium/Pleural There is no evidence of pericardial effusion. Prior Study Comparison No significant change compared to prior study dated: 02/11/2022. Measurements 2D Linear Measurements IVSd: 1.05 0.6-0.9/0.6-1.0 cm LVIDd: 4.40 3.9-5.3/4.2-5.9 cm LVIDd Index: 2.67 2.4-3.2/2.2-3.1 cm/m2 LVIDs: 2.80 2.0-3.6 cm LVPWd: 0.92 0.7-1.1 cm LA Diam: 3.40 2.7-3.8/3.0-4.0 cm LAIDs Index: 2.06 1.5-2.3 cm/m2 LV Mass: 180.35 67-162/88-224 g LV Mass Index: 109.30 43-95/49-115 g/m2 LVOT Diam: 2.10 3.0+(-)1.3 cm 2D Systolic Function EF 4C: 59.70 >55% EF 2C: 53.20 >55% EF BiP: 57.20 >55% Mitral Valve MV VTI: 0.60 MV Pk Jose Francisco: 1.55 MV Mn Jose Francisco: 1.06 MV Pk Grad: 10.00 MV Mn Grad: 5.00 MV Pk E: 1.24 MV PK A: 1.31 MV Decel Time: 432.00 E/A: 0.90 E'Lateral: 7.29 E'Medial: 4.90 E/E' Med: 25.30 E/E' Lat: 17.00 PHT: 127.00 MVA PHT: 1.73 MVA Continuity: 1.28 Decel Morrow: 2.88 Aortic Valve AoV Pk Jose Francisco: 2.58 AoV Mn Jose Francisco: 1.69 AoV VTI: 0.58 AoV Pk Grad: 27.00 Aov Mn Grad: 14.00 EDUARDO Cont.VTI: 1.32 LVOT LVOT Pk Jose Francisco: 0.85 LVOT Mn Jose Francisco: 0.67 LVOT VTI: 0.22 LVOT Pk Grad: 3.00 LVOT Mn Grad: 2.00 LVOT Diam: 2.10 LVOT Area: 3.46 Diastolic Function MV Pk E: 1.24 MV Pk A: 1.31 E/A: 0.90 E'Medial: 4.90 E/E' Med: 25.30 E' Laterial: 7.29 E/E' Lat: 17.00 Right Ventricle TAPSE (mm): 17.50 TVS' Jose Francisco: 8.27 Tricuspid Valve TR Pk Jose Francisco: 1.95 TR Pk Grad: 15.00 RA Press: 3.00 RVSP: 18.00 Great Vessels Aorta Ao Asc: 3.40 2.1-3.4 cm Ao Arch: 2.90 Updated in Other Vendor System with Status of Final Gabe Mckee MD electronically signed on 09/20/2023 10:34:54 AM with status of Final
== END ==
LOC: HO.CARD 14:21
PROVIDERS: PCP Family Medicine; Visit Provider Internal Medicine Cardiovascular Disease
DX: Z95.2 Presence of prosthetic heart valve (principal)
CPT/HCPCS: 85610; 93306; 93356; 99211

== ENCOUNTER → 2023-09-19 14:24 | Outpatient (BNV) | payer OTHER, SELFPAY | PROVIDERS: PCP Family Medicine; Visit Provider Internal Medicine | DX: I34.2 Nonrheumatic mitral (valve) stenosis (principal) | CPT/HCPCS: 93306 ==

== ENCOUNTER → 2023-09-28 20:30 | Outpatient (REF) | payer MEDICAID, OTHER, SELFPAY | LOC: HO.SL 20:30 | PROVIDERS: PCP Family Medicine; Visit Provider Internal Medicine Cardiovascular Disease | DX: G47.33 Obstructive sleep apnea (adult) (pediatric) (principal) | CPT/HCPCS: 95810 ==

== ENCOUNTER → 2023-09-28 22:09 | Outpatient (BNV) | payer OTHER, SELFPAY | PROVIDERS: PCP Family Medicine; Visit Provider Psychiatry & Neurology Neurology | DX: G47.33 Obstructive sleep apnea (adult) (pediatric) (principal) | CPT/HCPCS: 95810 ==

== ENCOUNTER 2023-10-11 14:15 | Outpatient (AMB) | payer OTHER, SELFPAY ==
[2023-10-11 14:21] LABS: Prothrombin Time Whole Bld POC 17.6 sec (11.1-13.5); ~PT, ~INR - Anti Coag Clinic 1.5 (0.9-1.1)
--- NOTE | 2023-10-11 14:32 | MHC.OFFVISCO ---
Intake Intake Visit Reasons: Anticoagulation Allergies peach Allergy (Severe, Verified 10/11/23 14:16) Angioedema No Known Drug Allergies Allergy (Unknown, Verified 10/11/23 14:16) Unknown Medication List - Last Reconciled 10/11/23 by Tricia Stock RN ascorbic acid (vitamin C) 500 mg PO BID aspirin (Adult Aspirin Regimen) 81 mg PO DAILY 90 days cetirizine 10 mg PO DAILY cholecalciferol (vitamin D3) 50 mcg PO DAILY hydrocortisone 2.5% (Proctosol HC) 1 appl [place] BID-QID PRN multivitamin (One Daily Multivitamin tablet) 1 tab PO DAILY omeprazole 20 mg PO DAILY sumatriptan succinate take 1 tab at onset of headache; if no relief may repeat 1 tab after at least 2 hrs; max = 4 tabs/24 hr PO warfarin 2 mg See Protocol PO DAILY Nursing Note PT.DENIES ANY MISSED DOSES,CP,SOB,DIET/MED CHANGES OR SX OF BLEEDING. UNSURE OF REASON FOR LOW INR TODAY. INCREASE WARFARIN T6O 39MGM THIS WEEK THEN RESUME USUAL DOSE(33MGM WEEKLY) AND FOLLOW-UP IN 1 WEEK. NO GREENS 2-3 DAYS PT.VERB.GOOD UNDERSTANDING OF DOSING INSTR. ([facility])NOTIFIED OF LOW INR AND PLAN OF CARE. Anti-Coag Initial Assessment Social Hx Patient Tobacco Use Status: Never used Tobacco alcohol intake: never Alcohol intake frequency: does not drink Coding Level of Care Code Est Patient Level 1 Diagnoses Current use of anticoagulant therapy Z79.01 Assessment & Plan Assessment & Plan (1) Current use of anticoagulant therapy: Comment: Continue Coumadin. Code(s): Z79.01 - alf (current) use of anticoagulants Category: Medical
== END 2023-10-11 14:36 | disposition home or self-care (01) ==
LOC: HO.ACS 14:15
PROVIDERS: PCP Family Medicine; Visit Provider Internal Medicine
DX: Z79.01 Long term (current) use of anticoagulants (principal)

== ENCOUNTER → 2023-10-11 14:15 | Outpatient (BNVA) | payer OTHER, SELFPAY | PROVIDERS: PCP Family Medicine; Visit Provider Internal Medicine | DX: Z95.2 Presence of prosthetic heart valve (principal); Z79.01 Long term (current) use of anticoagulants; Z51.81 Encounter for therapeutic drug level monitoring | CPT/HCPCS: 85610; 99211 ==

== ENCOUNTER 2023-10-17 14:36 | Outpatient (AMB) | payer OTHER, SELFPAY ==
[2023-10-17 14:45] LABS: ~PT, ~INR - Anti Coag Clinic 2.8 (0.9-1.1)
--- NOTE | 2023-10-17 14:55 | MHC.OFFVISCO ---
Intake Intake Visit Reasons: Anticoagulation Allergies peach Allergy (Severe, Verified 10/17/23 14:38) Angioedema No Known Drug Allergies Allergy (Unknown, Verified 10/17/23 14:38) Unknown Medication List - Last Reconciled 10/17/23 by Ruthy Newby RN ascorbic acid (vitamin C) 500 mg PO BID aspirin (Adult Aspirin Regimen) 81 mg PO DAILY 90 days cetirizine 10 mg PO DAILY cholecalciferol (vitamin D3) 50 mcg PO DAILY hydrocortisone 2.5% (Proctosol HC) 1 appl [place] BID-QID PRN multivitamin (One Daily Multivitamin tablet) 1 tab PO DAILY omeprazole 20 mg PO DAILY sumatriptan succinate take 1 tab at onset of headache; if no relief may repeat 1 tab after at least 2 hrs; max = 4 tabs/24 hr PO warfarin 2 mg See Protocol PO DAILY Nursing Note INR: 2.8 in therapeutic range(PREVIOUS INR 1.5 )LABILE VALVE INR Medications and supplements reviewed No changes in health, diet, medications, or supplements, Denies any signs and symptoms of bleeding or bruising or clotting. Bleeding, bruising, clotting discussed Nutritional guidance given - RESUME USUAL DIET, REVIEW FOOD LIST WEEKLY Dose: RESUME A PREVIOUS DOSE OF 3MG X 2 DAYS / 6MG X 5 DAYS F/U INR: 2 WEEKS Patient verbalizes understanding of instructions given Anti-Coag Initial Assessment Social Hx Patient Tobacco Use Status: Never used Tobacco alcohol intake: never Alcohol intake frequency: does not drink Coding Level of Care Code Est Patient Level 1 Diagnoses Current use of anticoagulant therapy Z79.01 Assessment & Plan Assessment & Plan (1) Current use of anticoagulant therapy: Comment: Continue Coumadin. 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
== END 2023-10-17 15:11 | disposition home or self-care (01) ==
LOC: HO.ACS 14:36
PROVIDERS: PCP Family Medicine; Visit Provider Internal Medicine
DX: Z79.01 Long term (current) use of anticoagulants (principal)

== ENCOUNTER → 2023-10-17 14:36 | Outpatient (BNVA) | payer OTHER, SELFPAY | PROVIDERS: PCP Family Medicine; Visit Provider Internal Medicine | DX: Z95.2 Presence of prosthetic heart valve (principal); Z79.01 Long term (current) use of anticoagulants; Z51.81 Encounter for therapeutic drug level monitoring | CPT/HCPCS: 85610; 99211 ==

== ENCOUNTER 2023-11-02 15:21 | Outpatient (AMB) | payer OTHER, SELFPAY ==
[2023-11-02 15:32] LABS: Prothrombin Time Whole Bld POC 35.5 sec (11.1-13.5)
--- NOTE | 2023-11-02 15:43 | MHC.OFFVISCO ---
Intake Intake Visit Reasons: Anticoagulation Allergies peach Allergy (Severe, Verified 11/02/23 15:27) Angioedema No Known Drug Allergies Allergy (Unknown, Verified 11/02/23 15:27) Unknown Medication List - Last Reconciled 11/02/23 by Tricia Stock RN ascorbic acid (vitamin C) 500 mg PO BID aspirin (Adult Aspirin Regimen) 81 mg PO DAILY 90 days cetirizine 10 mg PO DAILY cholecalciferol (vitamin D3) 50 mcg PO DAILY hydrocortisone 2.5% (Proctosol HC) 1 appl [place] BID-QID PRN multivitamin (One Daily Multivitamin tablet) 1 tab PO DAILY omeprazole 20 mg PO DAILY sumatriptan succinate take 1 tab at onset of headache; if no relief may repeat 1 tab after at least 2 hrs; max = 4 tabs/24 hr PO warfarin 2 mg See Protocol PO DAILY Nursing Note NO CP,SOB,DIET/MED CHANGES,FALLS OR SX O BLEEDING. CONTINUE PRESENT DOSE AND FOLLOW-UP IN 3 WEEKS GOODUNDERSTANDING OF DOSING INSTR. Anti-Coag Initial Assessment Social Hx Patient Tobacco Use Status: Never used Tobacco alcohol intake: never Alcohol intake frequency: does not drink Coding Level of Care Code Est Patient Level 1 Diagnoses Current use of anticoagulant therapy Z79.01 Results AMB INR Fingerstick AMB INR Fingerstick 3.0 Last Edit by Tricia Stock RN on 11/02/23 15:32 Assessment & Plan Assessment & Plan (1) Current use of anticoagulant therapy: Comment: Continue Coumadin. Code(s): Z79.01 - longterm (current) use of anticoagulants Category: Medical
== END 2023-11-02 15:46 | disposition home or self-care (01) ==
LOC: HO.ACS 15:21
PROVIDERS: PCP Family Medicine; Visit Provider Internal Medicine
DX: Z79.01 Long term (current) use of anticoagulants (principal)

== ENCOUNTER → 2023-11-02 15:21 | Outpatient (BNVA) | payer OTHER, SELFPAY | PROVIDERS: PCP Family Medicine; Visit Provider Internal Medicine | DX: Z95.2 Presence of prosthetic heart valve (principal); Z79.01 Long term (current) use of anticoagulants; Z51.81 Encounter for therapeutic drug level monitoring | CPT/HCPCS: 85610; 99211 ==

== ENCOUNTER 2023-11-03 15:50 | Outpatient (REF) | payer OTHER, SELFPAY ==
--- NOTE | ~2023-11-03 | XR_ITS ---
EXAMINATION: XR LUMBAR SPINE XR RIGHT HIP XR PELVIS CLINICAL INFORMATION: Back pain worse right side, patient states no injury, pain in lower back and right hip/pelvis area. COMPARISON: None available. TECHNIQUE: 5 views of the lumbar spine. AP view pelvis. AP and lateral views right hip. FINDINGS: PELVIS: IUD in the pelvis. Bilateral sacroiliac joints are symmetric with mild sclerosis. Pubic symphysis is maintained. RIGHT HIP: Moderate narrowing of the joint space. Advanced hypertrophic change along the superolateral aspect of the acetabulum with superolateral narrowing suggesting a CAM deformity. Small sclerotic focus overlies the medial aspect of the joint space on the AP view. Small sclerotic focus overlying the femoral head, possibly representing a bone island. LUMBAR SPINE: Slight leftward curvature of the lumbar spine. Transitional anatomy present. Facet arthritis in the lower lumbar spine. Degenerative changes in the imaged lower thoracic spine. Small rounded density overlying a lower thoracic vertebral body could be within the overlying soft tissues versus small rounded sclerotic bony lesion and should be evaluated with dedicated views of the thoracic spine. Mild multilevel lumbar spondylosis. XR/XR pelvis 1-2V IMPRESSION: 1. Moderate degenerative changes in the right hip. 2. Mild multilevel lumbar spondylosis. 3. Small rounded density overlying a lower thoracic vertebral body could be within the overlying soft tissues versus small rounded sclerotic bony lesion and should be evaluated with dedicated views of the thoracic spine.
--- NOTE | ~2023-11-03 | XR_ITS ---
EXAMINATION: XR LUMBAR SPINE XR RIGHT HIP XR PELVIS CLINICAL INFORMATION: Back pain worse right side, patient states no injury, pain in lower back and right hip/pelvis area. COMPARISON: None available. TECHNIQUE: 5 views of the lumbar spine. AP view pelvis. AP and lateral views right hip. FINDINGS: PELVIS: IUD in the pelvis. Bilateral sacroiliac joints are symmetric with mild sclerosis. Pubic symphysis is maintained. RIGHT HIP: Moderate narrowing of the joint space. Advanced hypertrophic change along the superolateral aspect of the acetabulum with superolateral narrowing suggesting a CAM deformity. Small sclerotic focus overlies the medial aspect of the joint space on the AP view. Small sclerotic focus overlying the femoral head, possibly representing a bone island. LUMBAR SPINE: Slight leftward curvature of the lumbar spine. Transitional anatomy present. Facet arthritis in the lower lumbar spine. Degenerative changes in the imaged lower thoracic spine. Small rounded density overlying a lower thoracic vertebral body could be within the overlying soft tissues versus small rounded sclerotic bony lesion and should be evaluated with dedicated views of the thoracic spine. Mild multilevel lumbar spondylosis. XR/XR hip RT min 2V IMPRESSION: 1. Moderate degenerative changes in the right hip. 2. Mild multilevel lumbar spondylosis. 3. Small rounded density overlying a lower thoracic vertebral body could be within the overlying soft tissues versus small rounded sclerotic bony lesion and should be evaluated with dedicated views of the thoracic spine.
--- NOTE | ~2023-11-03 | XR_ITS ---
EXAMINATION: XR LUMBAR SPINE XR RIGHT HIP XR PELVIS CLINICAL INFORMATION: Back pain worse right side, patient states no injury, pain in lower back and right hip/pelvis area. COMPARISON: None available. TECHNIQUE: 5 views of the lumbar spine. AP view pelvis. AP and lateral views right hip. FINDINGS: PELVIS: IUD in the pelvis. Bilateral sacroiliac joints are symmetric with mild sclerosis. Pubic symphysis is maintained. RIGHT HIP: Moderate narrowing of the joint space. Advanced hypertrophic change along the superolateral aspect of the acetabulum with superolateral narrowing suggesting a CAM deformity. Small sclerotic focus overlies the medial aspect of the joint space on the AP view. Small sclerotic focus overlying the femoral head, possibly representing a bone island. LUMBAR SPINE: Slight leftward curvature of the lumbar spine. Transitional anatomy present. Facet arthritis in the lower lumbar spine. Degenerative changes in the imaged lower thoracic spine. Small rounded density overlying a lower thoracic vertebral body could be within the overlying soft tissues versus small rounded sclerotic bony lesion and should be evaluated with dedicated views of the thoracic spine. Mild multilevel lumbar spondylosis. XR/XR lumbar spine 4V min IMPRESSION: 1. Moderate degenerative changes in the right hip. 2. Mild multilevel lumbar spondylosis. 3. Small rounded density overlying a lower thoracic vertebral body could be within the overlying soft tissues versus small rounded sclerotic bony lesion and should be evaluated with dedicated views of the thoracic spine.
== END 2023-11-03 15:51 | disposition home or self-care (01) ==
LOC: HO.XRAY 15:50
PROVIDERS: PCP Family Medicine; Visit Provider Family Medicine
DX: M54.50 Low back pain, unspecified (principal); G89.29 Other chronic pain; M25.551 Pain in right hip
CPT/HCPCS: 72110; 72170; 73502

== ENCOUNTER 2023-11-16 15:12 | Outpatient (REF) | payer OTHER, SELFPAY ==
--- NOTE | ~2023-11-16 | XR_ITS ---
EXAMINATION: XR THORACOLUMBAR SPINE CLINICAL INFORMATION: Pain COMPARISON: None available. TECHNIQUE: 3 views of the dorsal spine FINDINGS: The vertebral alignment is normal. No intrinsic bony abnormality. The disc heights and neural foramina are well maintained. The endplates and posterior elements are normal. No fracture or subluxation. The surrounding prevertebral soft tissues are unremarkable. Incidental note made of postsurgical changes in the chest with sternotomy wires and valve replacement. XR/XR thoracic spine 2V IMPRESSION: Dorsal spine normal.
[2023-11-16 15:28] LABS: MANUAL DIFF FLAG NO
[2023-11-16 15:41] LABS: Basophils Percent Auto 0.5 % (0-2); Eosinophils Absolute Auto 0.3 X10*3/uL (0.0-0.4); Hematocrit 40.8 % (37.0-47.0); Hemoglobin 14.3 g/dl (12.0-16.0); Imm Gran Abs Auto 0.01 X10*3/uL (0.00-0.03); Imm Gran Pct Auto 0.2 % (0.0-0.4); Lymphocytes Absolute Auto 1.6 X10*3/uL (1.2-4.9); Lymphocytes Percent Auto 26.2 % (20-40); Mean Corpuscular Hemoglobin 30.6 pg (27.0-33.0); Mean Corpuscular Volume 87.2 fL (80.0-98.0); Mean Platelet Volume 9.4 fL (9.4-12.3); Monocytes Absolute Auto 0.5 X10*3/uL (0.1-1.2); Neutrophils Absolute Auto 3.6 x10*3/uL (2.0-8.3); Neutrophils Percent Auto 59.1 % (45-73); Platelet Count 237 X10*3/uL (160-400); Red Blood Count 4.68 X10*6/uL (4.20-5.50); Red Cell Distribution Width 13.2 % (11.0-16.0)
[2023-11-16 16:17] LABS: Alanine Aminotransferase 35 U/L (0-31); Alkaline Phosphatase 61 U/L (39-117); Anion Gap 7 (12-20); Aspartate Amino Transferase 21 U/L (5-31); Bilirubin Total 0.4 mg/dL (0.0-1.0); Blood Urea Nitrogen 11 mg/dL (9-16); Carbon Dioxide 27 mmol/L (22-29); Chloride 106 mmol/L (96-108); Cholesterol 220 mg/dL (<200); Estimated Glomerular Filt Rate > 60; Glucose Random 106 mg/dL (60-115); HDL Cholesterol 48 mg/dL (>40); Iron 90 mcg/dL (30-160); LDL Cholesterol Calculated 111 mg/dL (<100); Percent Iron Saturation 24 % (15-50); Potassium 3.7 mmol/L (3.3-5.1); Sodium 136 mmol/L (135-145); Total Iron Binding Capacity 372 mcg/dL (228-428); Total Protein 7.3 g/dL (6.5-8.0); Triglycerides 305 mg/dL (<150); Unsaturated Iron Binding 282 ug/dL
[2023-11-16 16:25] LABS: Estimated Average Glucose 120 mg/dL; Hemoglobin A1c % 5.8 % (<6.0)
[2023-11-16 16:27] LABS: Ferritin 41 ng/mL (10-250); TSH reflex Free T4 0.95 uIU/mL (0.32-4.0); Vitamin D 25-OH Total 26.9 ng/mL (>30)
[2023-11-16 16:54] LABS: Folate 12.9 ng/mL (> or = 4.0); Reflex LDLD? No
[2023-11-16 21:00] LABS: Vitamin B12 1382 pg/mL (200-900)
== END 2023-11-16 15:13 | disposition home or self-care (01) ==
LOC: HO.XRAY 15:12
PROVIDERS: PCP Family Medicine; Visit Provider Family Medicine
DX: D50.0 Iron deficiency anemia secondary to blood loss (chronic) (principal); R73.03 Prediabetes; E55.9 Vitamin D deficiency, unspecified; R93.89 Abnormal findings on diagnostic imaging of other specified body structures; R93.7 Abnormal findings on diagnostic imaging of other parts of musculoskeletal system; Z95.2 Presence of prosthetic heart valve; Z51.81 Encounter for therapeutic drug level monitoring; Z79.01 Long term (current) use of anticoagulants
CPT/HCPCS: 36415; 72070; 80053; 80061; 82306; 82607; 82728; 82746; 83036; 83540; 84443; 85025; 85610; 99211

== ENCOUNTER 2023-11-16 15:52 | Outpatient (AMB) | payer OTHER, SELFPAY ==
[2023-11-16 16:00] LABS: Prothrombin Time Whole Bld POC 43.3 sec (11.1-13.5); ~PT, ~INR - Anti Coag Clinic 3.6 (0.9-1.1)
--- NOTE | 2023-11-16 16:07 | MHC.OFFVISCO ---
Intake Intake Visit Reasons: Anticoagulation Allergies peach Allergy (Severe, Verified 11/16/23 15:54) Angioedema No Known Drug Allergies Allergy (Unknown, Verified 11/16/23 15:54) Unknown Medication List - Last Reconciled 11/16/23 by Ruthy Newby RN ascorbic acid (vitamin C) 500 mg PO BID aspirin (Adult Aspirin Regimen) 81 mg PO DAILY 90 days cetirizine 10 mg PO DAILY cholecalciferol (vitamin D3) 50 mcg PO DAILY hydrocortisone 2.5% (Proctosol HC) 1 appl [place] BID-QID PRN multivitamin (One Daily Multivitamin tablet) 1 tab PO DAILY omeprazole 20 mg PO DAILY PRN sumatriptan succinate take 1 tab at onset of headache; if no relief may repeat 1 tab after at least 2 hrs; max = 4 tabs/24 hr PO warfarin 2 mg See Protocol PO DAILY Nursing Note INR 3.6 out of therapeutic range Medications and supplements reviewed Patient status: C/O OF back and leg pain and headaches, had lab work today and x ray - too call with any health and med changes , may start physical therapy Medications or supplements: no changes at this time Diet: good Denies any signs and symptoms of bleeding or clotting or unusual bruising Bleeding, bruising, clotting discussed Nutritional guidance given: review food lost weekly - eat greens weekly, cooked greens lower your INR more than raw Dose: decrease today's dose to 3mg then resume usual dose 3mg x 2 days/ 6mg x 5 days F/U INR Date : 2 weeks ?due to complaints of pain ? Patient verbalizing understanding of instructions given. Anti-Coag Initial Assessment Social Hx Patient Tobacco Use Status: Never used Tobacco alcohol intake: never Alcohol intake frequency: does not drink Coding Level of Care Code Est Patient Level 1 Diagnoses Current use of anticoagulant therapy Z79.01 Results AMB INR Fingerstick AMB INR Fingerstick 3.6 Last Edit by Ruthy Newby RN on 11/16/23 16:05 MANUAL ENTRY Assessment & Plan Assessment & Plan (1) Current use of anticoagulant therapy: Comment: Continue Coumadin. 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
== END 2023-11-16 16:13 | disposition home or self-care (01) ==
LOC: HO.ACS 15:52
PROVIDERS: PCP Family Medicine; Visit Provider Internal Medicine
DX: Z79.01 Long term (current) use of anticoagulants (principal)

== ENCOUNTER 2023-11-30 15:58 | Outpatient (AMB) | payer MEDICAID, OTHER, SELFPAY ==
[2023-11-30 16:15] LABS: ~PT, ~INR - Anti Coag Clinic 1.9 (0.9-1.1)
--- NOTE | 2023-11-30 16:27 | MHC.OFFVISCO ---
Intake Intake Visit Reasons: Anticoagulation Allergies peach Allergy (Severe, Verified 11/30/23 15:59) Angioedema No Known Drug Allergies Allergy (Unknown, Verified 11/30/23 15:59) Unknown Medication List - Last Reconciled 11/30/23 by Ruthy Newby RN ascorbic acid (vitamin C) 500 mg PO BID aspirin (Adult Aspirin Regimen) 81 mg PO DAILY 90 days cetirizine 10 mg PO DAILY cholecalciferol (vitamin D3) 50 mcg PO DAILY hydrocortisone 2.5% (Proctosol HC) 1 appl [place] BID-QID PRN multivitamin (One Daily Multivitamin tablet) 1 tab PO DAILY omeprazole 20 mg PO DAILY PRN sumatriptan succinate take 1 tab at onset of headache; if no relief may repeat 1 tab after at least 2 hrs; max = 4 tabs/24 hr PO tolterodine ER 4 mg PO DAILY warfarin 2 mg See Protocol PO DAILY Nursing Note Pt stated she had lab work done and several of her labs we out of range, her liver and and a few others and has an abd ultra sound for next week . INR 1.9 out of therapeutic range Medications and supplements reviewed Patient status: KEEPS HAVING UPSET STOMACH AND BACK PAIN- HAS BEEN DRINKING ARTICHOKE TEAK (LOWER INR ) TID, DANDILION TEA( RAISES INR), CAMMOMILE TEA Q PM(RAISES THE INR) Medications or supplements: TEAS Diet: good, enc her to decrease any fried foods and oils Denies any signs and symptoms of bleeding or clotting or unusual bruising Bleeding, bruising, clotting discussed Nutritional guidance given: decrease artichoke tea to once daily instead of tid Dose: keep same for now 3mg x 2 days/ 6mg x 5 days F/U INR Date : 2 weeks ?? looked up the tea she is drinking to determine which raises and lowers the INR enc her to f/u with md after her ulta sound next week regarding her results Patient verbalizing understanding of instructions given. Anti-Coag Initial Assessment Social Hx Patient Tobacco Use Status: Never used Tobacco alcohol intake: never Alcohol intake frequency: does not drink Coding Level of Care Code Est Patient Level 1 Diagnoses Current use of anticoagulant therapy Z79.01 Results AMB INR Fingerstick AMB INR Fingerstick 1.9 Last Edit by Ruthy Newby RN on 11/30/23 16:16 MANUAL ENTRY Assessment & Plan Assessment & Plan (1) Current use of anticoagulant therapy: Comment: Continue Coumadin. 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
== END 2023-11-30 16:37 | disposition home or self-care (01) ==
LOC: HO.ACS 15:58
PROVIDERS: PCP Family Medicine; Visit Provider Internal Medicine
DX: Z79.01 Long term (current) use of anticoagulants (principal)

== ENCOUNTER → 2023-11-30 15:58 | Outpatient (BNVA) | payer MEDICAID, OTHER, SELFPAY | PROVIDERS: PCP Family Medicine; Visit Provider Internal Medicine | DX: Z95.2 Presence of prosthetic heart valve (principal); Z79.01 Long term (current) use of anticoagulants; Z51.81 Encounter for therapeutic drug level monitoring | CPT/HCPCS: 85610; 99211 ==

== ENCOUNTER 2023-12-05 08:49 | Outpatient (REF) | payer MEDICAID, OTHER, SELFPAY ==
--- NOTE | ~2023-12-05 | US_ITS ---
EXAMINATION: US COMPLETE ABDOMEN WITH LIVER ELASTOGRAPHY CLINICAL INFORMATION: Hepatic steatosis. COMPARISON: None available. TECHNIQUE: Real-time imaging of the abdominal viscera. Noninvasive ultrasound liver fibrosis assessment is performed using Stephanie ElastPQ point quantification shear wave elastography (2D-SWE) with a C5-2 MHz transducer. Multiple elastography samples are obtained. FINDINGS: PANCREAS: Most of the pancreas is obscured by bowel gas and cannot be evaluated. ABDOMINAL AORTA: There is some ectasia of the aorta measuring a maximum of 2.7 cm in maximal transverse dimension. Surveillance ultrasound recommended every 5 years. INFERIOR VENA CAVA: Visualized portions are normal. LIVER: The liver is normal in size with heterogeneity. No focal lesion or intrahepatic biliary duct dilatation. The right lobe measures 13.7 cm in length. The left lobe measures 8.0 cm in length. Portal flow is hepatopedal. Shear wave liver elastography median stiffness is 0.94 m/s (reference: normal median stiffness is 1.3 m/s or less). IQR/median stiffness to assess sampling precision is 0.15 (reference: good quality data set is IQR/median stiffness of 0.15 or less). GALLBLADDER: Normal. The gallbladder is physiologically distended without evidence of stones, sludge, polyps, wall thickening or pericholecystic fluid. COMMON BILE DUCT: Normal in caliber measuring 0.3 cm in diameter. RIGHT KIDNEY: Normal. No hydronephrosis. No renal calculi or focal parenchymal lesions. The kidney measures 10.4 cm in maximum dimension. LEFT KIDNEY: Normal The kidney measures 12.2 cm in maximum dimension. SPLEEN: Normal. The spleen measures 9.5 cm in maximum dimension. FREE FLUID: None. US/US abdomen comp w elastography IMPRESSION: 1. Heterogeneous normal sized liver without evidence to suggest hepatic steatosis. 2. Liver elastography: Measurements are consistent with a high probability of normal liver stiffness. 3. Ptotic dilated infrarenal aorta measuring 2.7 cm. Follow up is recommended with ultrasound every 5 years. REFERENCE: Society of Radiologists in Ultrasound Liver Stiffness Thresholds (2020): LIVER STIFFNESS THRESHOLDS: *Liver Stiffness equal or less than 1.3 m/s: High probability of being normal. *Liver Stiffness less than 1.7 m/s: In the absence of other known clinical signs, rules out compensated advanced chronic liver disease. *Liver Stiffness 1.7-2.1 m/s: Suggestive of compensated advanced chronic liver disease but need further test for confirmation. *Liver Stiffness over 2.1 m/s: Rules in compensated advanced chronic liver disease. *Liver Stiffness over 2.4 m/s: Suggestive of clinically significant portal hypertension. QUALITY OF DATA SET: *IQR/Median value equal or less than 0.15 implies a quality data set. *IQR/Median value over 0.15 implies a poor quality data set. SIGNIFICANT CHANGE FROM PRIOR EXAM: Significant change if liver stiffness measurement is 10% or greater from prior exam. OTHER CONSIDERATIONS: The stage of liver fibrosis may be overestimated in the setting of acute hepatitis, liver inflammation, elevated liver function tests, hepatic vascular congestion, obstructive cholestasis, non-fasting state, and infiltrative diseases such as amyloidosis and lymphoma. In some patients with NAFLD, the liver stiffness thresholds for compensated advanced chronic liver disease may be lower. In causes other than viral hepatitis and NAFLD, liver stiffness thresholds are not well established.
== END 2023-12-05 08:50 | disposition home or self-care (01) ==
LOC: HO.US 08:49
PROVIDERS: PCP Family Medicine; Visit Provider Family Medicine
DX: K76.0 Fatty (change of) liver, not elsewhere classified (principal)
CPT/HCPCS: 76700; 76981

== ENCOUNTER 2023-12-11 15:01 | Outpatient (AMB) | payer OTHER, SELFPAY ==
--- NOTE | 2023-12-11 15:12 | MHC.OFFVIS ---
Vital Signs 12/11/23 15:13 Height 4 ft 11 in Weight 149 lb 14.629 oz BMI 30.3 BP 106/57 L Blood Pressure Location Lt brachial Position Sitting Pulse 70 Intake Visit Reasons: follow up 6 months Intake Note: Thalia presents in the office as a follow up 6 month follow up. CC: She states that she is having some concerns today - she states that last week she was told she has fatty liver - so she wants the results to be explained to her a little more. Line Construction Engineer Required: Yes Line Construction Engineer Name: [id number] [place] Allergies peach Allergy (Severe, Verified 12/11/23 16:03) Angioedema No Known Drug Allergies Allergy (Unknown, Verified 12/11/23 16:03) Unknown HPI HPI follow up 6 months: Details: LAST VISIT: Hepatic steatosis Diverticulosis GERD (gastroesophageal reflux disease) Plan Continue diet and exercise. Patient will continue taking omeprazole every morning half an hour before breakfast. Discussed with patient avoiding dietary triggers and late night snacking. Staying upright for minimum 3 hours after meals discussed with patient. Patient will follow-up in our office in 6 months. Will repeat liver enzymes will send patient also for ultrasound. Patient is agreeable to plan of care and verbalizes understanding of instructions. She was given the opportunity to ask questions and all questions answered. ? Thank you for allowing me to participate in her care Medications New hydrocortisone 2.5% (Proctosol HC) 1 appl [place] BID-QID PRN 30 grams 2RF hemorrhoids K64.9 Refilled omeprazole 20 mg PO DAILY 90 caps 2RF K21.9 TODAY'S VISIT: Patient is here today for follow-up. Patient reports that she has been feeling better. Denies any abdominal pain or discomfort, however she reports that few weeks ago she was experiencing right upper quadrant pain. Patient states that it did not felt like last time when she had pancreatitis patient is not drinking any alcohol. Mildly elevated ALT, AST normal. Normal lipase. Patient reports that she does not have any abdominal pain at this point. Reports that she is moving her bowels every day. In February of 2023 patient had abdominal MRI that shows hepatic steatosis what to we discussed. At that point we discussed that patient has nonalcoholic fatty liver and needs to lose weight. Patient is having hard time with weight loss. Difficult to lose weight when patient has to cook for the whole family were most of the food that she eats are Mong[place]ian. Patient reports upper back and lower back pain. Patient states that when she is standing and cooking she is having back pain. Patient will be going for physical therapy. [facility] Medical History (Updated 12/11/23 @ 20:22 by NEGIN Guzmán-) Hepatic steatosis Chronic pancreatitis Diverticulosis History of COVID-19 Diabetes Anticoagulation goal of INR 2 to 3 Aortic regurgitation Rheumatic heart disease Surgical History (Reviewed 08/30/23 @ 16:01 by Suellen Paredes [facility]) History of esophagogastroduodenoscopy (EGD) Hx of colonoscopy History of section Heart valve replaced Social History (Reviewed 08/30/23 @ 16:01 by Suellen Paredes [facility]) Alcohol intake: never Patient Tobacco Use Status: Never used Tobacco Gender identity: Female Female Reproductive History Menstrual Age of Menarche: 14 Review of Systems Const Denies weight gain and Denies weight loss ENT Reports no additional complaints, Denies dysphagia and Denies odynophagia Card Reports no additional complaints Resp Reports no additional complaints GI Denies abdominal pain, Denies belching, Denies melena, Denies bloating, Denies change in bowel habits, Denies dysphagia, Denies excessive flatus, Denies dyspepsia, Denies heartburn, Denies diarrhea, Denies loose stools, Denies nausea, Denies odynophagia and Denies vomiting Reports no additional complaints Musc Reports no additional complaints Neuro Reports no additional complaints Psych Reports no additional complaints Endo Reports no additional complaints Physical Exam Vital Signs: Last Vital Signs Pulse 70 12/11/23 15:13 BP 106/57 L 12/11/23 15:13 BMI result Body Mass Index 30.3 Const General: healthy appearing, no acute distress and well developed Nutritional Appearance: obese Orientation/consciousness: patient oriented x3 Resp Effort & Inspection: normal respiratory effort, able to speak in complete sentences, no tracheal deviation and symmetric chest movement Auscultation: clear to auscultation bilaterally Cardio Rate: regular rate GI Inspection: Yes normal to inspection, No distended and Yes obesity Palpation (GI): Soft to palpation, not firm, nontender and No hepatosplenomegaly present Auscultation: normal bowel sounds General: Yes no CVA tenderness Back/Spine/Pelvis Back: no CVA tenderness Skin General skin exam: elasticity normal, turgor normal and dry skin Neuro General: patient oriented x3 Psych Appearance: grossly normal Mental Status: mental status grossly normal Results AMB INR Fingerstick AMB INR Fingerstick 1.8 Last Edit by Ruthy Newby RN on 12/11/23 16:14 MANUAL ENTRY Assessment & Plan Assessment & Plan (1) Chronic pancreatitis: Code(s): K86.1 - Other chronic pancreatitis Category: Medical Qualifiers: Pancreatitis type: unspecified pancreatitis type Qualified Code(s): K86.1 - Other chronic pancreatitis (2) Hepatic steatosis: Code(s): K76.0 - Fatty (change of) liver, not elsewhere classified Category: Medical (3) Postprandial epigastric pain: Code(s): R10.13 - Epigastric pain (4) Abdominal pain: Code(s): R10.9 - Unspecified abdominal pain Qualifiers: Abdominal location: upper abdomen, unspecified Qualified Code(s): R10.10 - Upper abdominal pain, unspecified (5) Transaminitis: Code(s): R74.01 - Elevation of levels of liver transaminase levels Plan History of chronic hepatitis, recently liver enzymes elevated. Patient had ultrasound done on and has not been read yet. Call placed to Radiology Department for them to read the ultrasound for us. Hepatic steatosis found previously on MRI in February of 2023. Stressed with patient again about weight loss. Avoid food high in fat. Eat more protein and avoid carbs. If patient will continue to have pain in the right upper quadrant we can send her for HIDA scan. Normal looking gallbladder no CBD dilation seen on MRI in February of 2023. Patient will follow-up in our office in 3 months, sooner on as needed basis. Patient is agreeable to this plan and verbalizes understanding of instructions. She was given the opportunity to ask questions and all questions answered. Thank you for allowing me to participate in her care Orders: Orders Hepatitis A,B,C Profile Today R79.89 - Other specified abnormal findings of blood chemistry Hemoglobin A1c Today E11.9 - Type 2 diabetes mellitus without complications Lipase Today R10.9 - Unspecified abdominal pain Liver Panel Today R74.01 - Elevation of levels of liver transaminase levels Coding Level of Care Code Est Pt Level 3 (64006) Diagnoses Chronic pancreatitis, unspecified pancreatitis type K86.1 Pancreatitis type: unspecified pancreatitis type Hepatic steatosis K76.0 Postprandial epigastric pain R10.13 Pain of upper abdomen R10.10 Abdominal location: upper abdomen, unspecified Transaminitis R74.01 Time Spent (min) 30 Comment 20 minutes spent with patient and additional 10 minutes spent reviewing her records
[2023-12-11 15:13] VITALS: BP 106/57; PULSE 70; BMI 30.3
== END 2023-12-11 15:53 | disposition home or self-care (01) ==
PROVIDERS: PCP Family Medicine; Visit Provider Nurse Practitioner Family
DX: K86.1 Other chronic pancreatitis (principal); K76.0 Fatty (change of) liver, not elsewhere classified; R10.13 Epigastric pain; R10.10 Upper abdominal pain, unspecified; R74.01 Elevation of levels of liver transaminase levels
CPT/HCPCS: 99213

== ENCOUNTER 2023-12-11 15:01 | Outpatient (REF) | payer OTHER, SELFPAY ==
[2023-12-11 17:21] LABS: Estimated Average Glucose 117 mg/dL; Hemoglobin A1c % 5.7 % (<6.0)
[2023-12-11 17:45] LABS: Alanine Aminotransferase 30 U/L (0-31); Albumin Level 4.3 g/dL (3.5-5.0); Alkaline Phosphatase 62 U/L (39-117); Aspartate Amino Transferase 26 U/L (5-31); Bilirubin Direct 0.2 mg/dL (0.0-0.5); Bilirubin Total 0.6 mg/dL (0.0-1.0); Lipase 26 U/L (8-78); Total Protein 7.5 g/dL (6.5-8.0)
[2023-12-12 09:55] LABS: HBc Num1 0.13 S/CO (0.00-0.79); HBsAGNum1 0.26 S/CO (0.00-0.99); Hepatitis B Core Antibody Nonreactive (Nonreactive); Hepatitis B Surface Antigen Negative (Negative); ~HepC Num1 0.11 S/CO (0.00-0.79); ~Hepatitis A Antibody IgM Nonreactive (Nonreactive); ~Hepatitis B Surface Antibody REACTIVE (Nonreactive); ~Hepatitis C Antibody Nonreactive (Nonreactive)
== END 2023-12-11 15:02 | disposition home or self-care (01) ==
LOC: HO.LAB 15:01
PROVIDERS: PCP Family Medicine; Visit Provider Nurse Practitioner Family
DX: R10.11 Right upper quadrant pain (principal); R10.13 Epigastric pain; E11.9 Type 2 diabetes mellitus without complications; R79.89 Other specified abnormal findings of blood chemistry; R74.01 Elevation of levels of liver transaminase levels; K86.1 Other chronic pancreatitis; K76.0 Fatty (change of) liver, not elsewhere classified; Z95.2 Presence of prosthetic heart valve; Z51.81 Encounter for therapeutic drug level monitoring; Z79.01 Long term (current) use of anticoagulants
CPT/HCPCS: 36415; 80076; 83036; 83690; 85610; 86704; 86706; 86709; 86803; 87340; 99211; 99212

== ENCOUNTER 2023-12-11 16:02 | Outpatient (AMB) | payer OTHER, SELFPAY ==
--- NOTE | 2023-12-11 16:18 | MHC.OFFVISCO ---
Intake Intake Visit Reasons: Anticoagulation Allergies peach Allergy (Severe, Verified 12/11/23 16:03) Angioedema No Known Drug Allergies Allergy (Unknown, Verified 12/11/23 16:03) Unknown Medication List - Last Reconciled 12/11/23 by Ruthy Newby RN ascorbic acid (vitamin C) 500 mg PO BID aspirin (Adult Aspirin Regimen) 81 mg PO DAILY 90 days cetirizine 10 mg PO DAILY cholecalciferol (vitamin D3) 50 mcg PO DAILY hydrocortisone 2.5% (Proctosol HC) 1 appl [place] BID-QID PRN multivitamin (One Daily Multivitamin tablet) 1 tab PO DAILY omeprazole 20 mg PO DAILY PRN sumatriptan succinate take 1 tab at onset of headache; if no relief may repeat 1 tab after at least 2 hrs; max = 4 tabs/24 hr PO tolterodine ER 4 mg PO DAILY warfarin 2 mg See Protocol PO DAILY Nursing Note INR 1.8 out of therapeutic range Medications and supplements reviewed Patient status: inr PREVIOULSY LOW ALSO, pt has been having GI upset ? pancrease inolvement, having GI work up Medications or supplements: started med 11/30/23 that can raise the INR that is for her bladder, Diet: fair Denies any signs and symptoms of bleeding or clotting or unusual bruising Bleeding, bruising, clotting discussed Nutritional guidance given: avoid greens today and tomorrow Dose: 6mg x 6 days/ 3mg x 1 days F/U INR Date: 10 days Patient verbalizing understanding of instructions given. Anti-Coag Initial Assessment Social Hx Patient Tobacco Use Status: Never used Tobacco alcohol intake: never Alcohol intake frequency: does not drink Coding Level of Care Code Est Patient Level 1 Diagnoses Current use of anticoagulant therapy Z79.01 Results AMB INR Fingerstick AMB INR Fingerstick 1.8 Last Edit by Ruthy Newby RN on 12/11/23 16:14 MANUAL ENTRY Assessment & Plan Assessment & Plan (1) Current use of anticoagulant therapy: Comment: Continue Coumadin. 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
[2023-12-11 16:19] LABS: Prothrombin Time Whole Bld POC 21.9 sec (11.1-13.5); ~PT, ~INR - Anti Coag Clinic 1.8 (0.9-1.1)
== END 2023-12-11 16:22 | disposition home or self-care (01) ==
LOC: HO.ACS 16:02
PROVIDERS: PCP Family Medicine; Visit Provider Internal Medicine
DX: Z79.01 Long term (current) use of anticoagulants (principal)

== ENCOUNTER 2023-12-25 15:32 | Outpatient (AMB) | payer OTHER, SELFPAY ==
--- NOTE | 2023-12-25 15:52 | MHC.OFFVISCO ---
Intake Intake Visit Reasons: Anticoagulation Allergies peach Allergy (Severe, Verified 12/25/23 15:35) Angioedema No Known Drug Allergies Allergy (Unknown, Verified 12/25/23 15:35) Unknown Medication List - Last Reconciled 12/25/23 by Ruthy Newby RN ascorbic acid (vitamin C) 500 mg PO BID aspirin (Adult Aspirin Regimen) 81 mg PO DAILY 90 days cetirizine 10 mg PO DAILY cholecalciferol (vitamin D3) 50 mcg PO DAILY hydrocortisone 2.5% (Proctosol HC) 1 appl [place] BID-QID PRN multivitamin (One Daily Multivitamin tablet) 1 tab PO DAILY omeprazole 20 mg PO DAILY PRN sumatriptan succinate take 1 tab at onset of headache; if no relief may repeat 1 tab after at least 2 hrs; max = 4 tabs/24 hr PO tolterodine ER 4 mg PO DAILY warfarin 2 mg See Protocol PO DAILY Nursing Note INR: 2.0 in therapeutic range- she missed last appt because she was running late after another appt Medications and supplements reviewed HAS BEEN HAVING GI WORK UP FOR DECREASED APPETITE AND NAUSEA and BACK PAIN - GOING TO PHYSICAL THERAPY, on a bladder med that may lower the INR - her warfarin was increased 2 weeks ago - will cont to monitor Denies any signs and symptoms of bleeding or bruising or clotting. Bleeding, bruising, clotting discussed Nutritional guidance given - resume usual diet - avoiding greens today and tomorrow Dose: 6mg x 6 days/ 3mg x 1 days F/U INR: 2 weeks Patient verbalizes understanding of instructions given Anti-Coag Initial Assessment Social Hx Patient Tobacco Use Status: Never used Tobacco alcohol intake: never Alcohol intake frequency: does not drink Coding Level of Care Code Est Patient Level 1 Diagnoses Current use of anticoagulant therapy Z79.01 Results AMB INR Fingerstick AMB INR Fingerstick 2.0 Last Edit by Ruthy Newby RN on 12/25/23 15:42 manual entry Assessment & Plan Assessment & Plan (1) Current use of anticoagulant therapy: Comment: Continue Coumadin. Code(s): Z79.01 - [facility] (current) use of anticoagulants Category: Medical
== END 2023-12-25 15:57 | disposition home or self-care (01) ==
LOC: HO.ACS 15:32
PROVIDERS: PCP Family Medicine; Visit Provider Internal Medicine
DX: Z79.01 Long term (current) use of anticoagulants (principal)

== ENCOUNTER → 2023-12-25 15:32 | Outpatient (BNVA) | payer OTHER, SELFPAY | PROVIDERS: PCP Family Medicine; Visit Provider Internal Medicine | DX: Z95.2 Presence of prosthetic heart valve (principal); Z51.81 Encounter for therapeutic drug level monitoring; Z79.01 Long term (current) use of anticoagulants | CPT/HCPCS: 85610; 99211 ==

== ENCOUNTER 2023-12-25 15:55 | Outpatient (REF) | payer OTHER, SELFPAY ==
[2024-01-02 21:09] LABS: Pancreatic Elastase-1 >500 mcg/g
== END 2023-12-25 15:56 | disposition home or self-care (01) ==
LOC: HO.LNP 15:55
PROVIDERS: Visit Provider Nurse Practitioner Family
DX: R10.9 Unspecified abdominal pain (principal)
CPT/HCPCS: 82656

== ENCOUNTER 2024-01-03 14:20 | Outpatient (AMB) | payer OTHER, SELFPAY ==
[2024-01-03 15:24] VITALS: BP 110/62; PULSE 63; BMI 29.8
--- NOTE | 2024-01-03 15:24 | A.OFFVIS_ITS ---
Vital Signs 01/03/24 15:24 Height 4 ft 11 in Weight 147 lb 11.355 oz BMI 29.8 BP 110/62 Blood Pressure Location Rt brachial Position Sitting Pulse 63 Pulse Source Pulse Oximeter Intake Visit Reasons: 3m follow up/ Chemistry Account Manager Required: Yes Chemistry Account Manager Name: Marisol/[email or web address] Accompanied by: Self / Same As Patient Allergies peach Allergy (Severe, Verified 12/25/23 15:35) Angioedema No Known Drug Allergies Allergy (Unknown, Verified 12/25/23 15:35) Unknown HPI Comments Details: Pleasant 48-year-old lady here for history of aortic valve replacement. She has history of rheumatic heart disease and underwent mechanical aortic valve replacement by Dr. Daniel in 2009 for severe aortic valve regurgitation. She had a # 23 [place] mechanical prosthetic valve. she has been on Coumadin since then. She was sent for echocardiography. ECHO showed normally functioning mechanical valve in the aortic position. She was also noticed to have mild mitral valve stenosis. As mentioned she had rheumatic heart disease. She has been doing well on follow-up. She is denying chest discomfort or any significant shortness of breath. She has been having menorrhagia and will be undergoing surgery for that. He is on Coumadin for the mechanical aortic valve. She has normal LV function and has been in sinus rhythm. 04/26/2023: She returns for follow-up. She is complaining of occasional shortness of breath when she is laying down. She is describing orthopnea like episode but does not have any dyspnea or any other symptoms/signs of heart failure. She does snore at night and has daytime fatigue and headaches. She has never had sleep study. 08/30/2023: She returns for follow-up. On last visit referred for echocardiography and sleep study but it appears she did not get both. She is saying that she did not get a call from them. She is saying that she is getting more headaches. She is asking whether Coumadin is the cause and if she can be changed from Coumadin to some other blood thinner. 01/03/24: She is here for f/u. No new symptoms to report. Taking meds. Sleep study has shown AYESHA. Referring her to sleep medicine. [facility] Medical History (Updated 01/03/24 @ 15:48 by Terence Haynes MD) Hepatic steatosis Chronic pancreatitis Diverticulosis History of COVID-19 Diabetes Anticoagulation goal of INR 2 to 3 Aortic regurgitation Rheumatic heart disease Surgical History History of esophagogastroduodenoscopy (EGD) Hx of colonoscopy History of section Heart valve replaced Social History Alcohol intake: never Patient Tobacco Use Status: Never used Tobacco Gender identity: Female Female Reproductive History Menstrual Age of Menarche: 14 Review of Systems Const Denies chills, Denies fatigue, Denies fever(s), Denies frequent falls, Denies weakness, Denies weight gain and Denies weight loss ENT Denies dizziness Card Denies chest pain, Denies leg edema, Denies lightheadedness, Denies palpitations, Denies dyspnea and Denies dyspnea on exertion Resp Denies cough, Denies dyspnea and Denies dyspnea on exertion GI Denies hematochezia Musc Denies abnormal gait, Denies muscle weakness, Denies numbness, Denies radiating pain into limb and Denies tingling Neuro Denies abnormal gait, Denies dizziness, Denies frequent falls, Denies numbness, Denies tingling and Denies weakness Endo Denies fatigue and Denies palpitations Physical Exam Vital Signs: Last Vital Signs Pulse 63 01/03/24 15:24 BP 110/62 01/03/24 15:24 BMI result Body Mass Index 29.8 GENERAL APPEARANCE: in no acute distress, well developed, well nourished. NECK/THYROID: no carotid bruit, no jugular venous distention. SKIN: no suspicious lesions, warm and dry. HEART: Mechanical 2nd heart sound, grade 1/6 systolic murmur in the aortic area, regular rate and rhythm. LUNGS: clear to auscultation bilaterally. ABDOMEN: normal, bowel sounds present, soft, nontender, nondistended. EXTREMITIES: no clubbing, cyanosis, or edema. PERIPHERAL PULSES: equal. NEUROLOGIC: nonfocal, alert and oriented. PSYCH: mood/affect full range. Assessment & Plan Assessment & Plan (1) AYESHA (obstructive sleep apnea): Code(s): G47.33 - Obstructive sleep apnea (adult) (pediatric) Category: Medical (2) S/P AVR: Code(s): Z95.2 - Presence of prosthetic heart valve Category: Surgical (3) Rheumatic heart disease: Comment: Involvement of aortic and mitral valve. She has aortic valve replacement with mechanical valve. She has mild mitral valve stenosis. Code(s): I09.9 - Rheumatic heart disease, unspecified Category: Medical Plan 48 female with rheumatic HD s/p mechanical AVR on coumadin. Stable and asymptomatic. She has fatigue due to AYESHA. Referring her to sleep medicine. f/u few months Orders: Referrals Sleep Medicine Referral G47.33 - Obstructive sleep apnea (adult) (pediatric) Coding Level of Care Code Est Pt Level 4 (56093) Diagnoses AYESHA (obstructive sleep apnea) G47.33 S/P AVR Z95.2 Rheumatic heart disease I09.9
== END 2024-01-03 15:51 | disposition home or self-care (01) ==
PROVIDERS: PCP Family Medicine; Visit Provider Internal Medicine Cardiovascular Disease
DX: G47.33 Obstructive sleep apnea (adult) (pediatric) (principal); Z95.2 Presence of prosthetic heart valve; I09.9 Rheumatic heart disease, unspecified
CPT/HCPCS: 99214

== ENCOUNTER → 2024-01-03 14:20 | Outpatient (BNVA) | payer OTHER, SELFPAY | PROVIDERS: PCP Family Medicine; Visit Provider Internal Medicine Cardiovascular Disease | DX: G47.33 Obstructive sleep apnea (adult) (pediatric) (principal); I09.9 Rheumatic heart disease, unspecified; Z95.2 Presence of prosthetic heart valve | CPT/HCPCS: 99212 ==

== ENCOUNTER 2024-01-08 14:28 | Outpatient (AMB) | payer OTHER, SELFPAY ==
[2024-01-08 14:48] LABS: Prothrombin Time Whole Bld POC 18.8 sec (11.1-13.5); ~PT, ~INR - Anti Coag Clinic 1.6 (0.9-1.1)
--- NOTE | 2024-01-08 14:59 | MHC.OFFVISCO ---
Intake Intake Visit Reasons: Anticoagulation Allergies peach Allergy (Severe, Verified 01/08/24 14:33) Angioedema No Known Drug Allergies Allergy (Unknown, Verified 01/08/24 14:33) Unknown Medication List - Last Reconciled 01/08/24 by Silvia Paredes, RN ascorbic acid (vitamin C) 500 mg PO BID aspirin (Adult Aspirin Regimen) 81 mg PO DAILY 90 days cholecalciferol (vitamin D3) 50 mcg PO DAILY hydrocortisone 2.5% (Proctosol HC) [address] BID-QID PRN multivitamin (One Daily Multivitamin tablet) 1 tab PO DAILY omeprazole 20 mg PO DAILY PRN tolterodine ER 4 mg PO DAILY warfarin 2 mg See Protocol PO DAILY Nursing Note INR 1.6?out of therapeutic range of 2-3 Medications and supplements reviewed Patient status: no changes, recently changed diet due to GI issues r/t chronic pancreatitis, diverticulitis and fatty liver per pt. Medications or supplements: no changes Diet: more greens, little reds, Boldo and Hibiscus tea-may increased effect of warfarin if any interaction according to Up-To-Date. Denies any signs and symptoms of bleeding or clotting or unusual bruising Bleeding, bruising, clotting discussed Nutritional guidance given: to continue diet that is best for her and dose will be adjusted. Dose: increase today's dose to 8mg (6mg) and increase weekly dose to 6mg daily. Previously 6mg X 6 days and 3mg X 1 day. F/U INR Date : 11 days?? Patient verbalizing understanding of instructions given. Anti-Coag Initial Assessment Social Hx Patient Tobacco Use Status: Never used Tobacco alcohol intake: never Alcohol intake frequency: does not drink Coding Level of Care Code Est Patient Level 1 Diagnoses Current use of anticoagulant therapy Z79.01 Assessment & Plan Assessment & Plan (1) Current use of anticoagulant therapy: Comment: Continue Coumadin. Code(s): Z79.01 - [facility] (current) use of anticoagulants Category: Medical
== END 2024-01-08 15:06 | disposition home or self-care (01) ==
LOC: HO.ACS 14:28
PROVIDERS: PCP Family Medicine; Visit Provider Internal Medicine
DX: Z79.01 Long term (current) use of anticoagulants (principal)

== ENCOUNTER → 2024-01-08 14:28 | Outpatient (BNVA) | payer OTHER, SELFPAY | PROVIDERS: PCP Family Medicine; Visit Provider Internal Medicine | DX: Z95.2 Presence of prosthetic heart valve (principal); Z79.01 Long term (current) use of anticoagulants; Z51.81 Encounter for therapeutic drug level monitoring | CPT/HCPCS: 85610; 99211 ==

== ENCOUNTER 2024-01-19 12:14 | Outpatient (AMB) | payer OTHER, SELFPAY ==
[2024-01-19 12:24] LABS: Prothrombin Time Whole Bld POC 27.4 sec (11.1-13.5); ~PT, ~INR - Anti Coag Clinic 2.3 (0.9-1.1)
--- NOTE | 2024-01-19 12:24 | MHC.OFFVISCO ---
Intake Intake Visit Reasons: Anticoagulation Allergies peach Allergy (Severe, Verified 01/19/24 12:15) Angioedema No Known Drug Allergies Allergy (Unknown, Verified 01/19/24 12:15) Unknown Medication List - Last Reconciled 01/19/24 by Ruthy Newby RN ascorbic acid (vitamin C) 500 mg PO BID aspirin (Adult Aspirin Regimen) 81 mg PO DAILY 90 days cetirizine 10 mg PO DAILY cholecalciferol (vitamin D3) 50 mcg PO DAILY hydrocortisone 2.5% (Proctosol HC) 1 appl [place] BID-QID PRN multivitamin (One Daily Multivitamin tablet) 1 tab PO DAILY omeprazole 20 mg PO DAILY PRN tolterodine ER 4 mg PO DAILY warfarin 2 mg See Protocol PO DAILY Nursing Note 12:25 PT WALK IN EARLY - seen because she has a dental appt this afternoon- may be having dental implants- she will notify [facility] of any procedures goimg to physical therapy for chronic back pain INR: 2.3 in therapeutic range Medications and supplements reviewed- states no changes Denies any signs and symptoms of bleeding or bruising or clotting. Bleeding, bruising, clotting discussed Nutritional guidance given- RESUME WEEKLY GREENS AND EAT A MIX OF FRUITS AND VEGETABLES Dose: KEEP SAME DOSE 6MG DAILY F/U INR: 01/30/24 Patient verbalizes understanding of instructions given Anti-Coag Initial Assessment Social Hx Patient Tobacco Use Status: Never used Tobacco alcohol intake: never Alcohol intake frequency: does not drink Coding Level of Care Code Est Patient Level 1 Diagnoses Current use of anticoagulant therapy Z79.01 Results AMB INR Fingerstick AMB INR Fingerstick 2.3 Last Edit by Ruthy Newby RN on 01/19/24 12:23 MANUAL ENTRY Assessment & Plan Assessment & Plan (1) Current use of anticoagulant therapy: Comment: Continue Coumadin. 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
== END 2024-01-19 12:29 | disposition home or self-care (01) ==
LOC: HO.ACS 12:14
PROVIDERS: PCP Family Medicine; Visit Provider Internal Medicine
DX: Z79.01 Long term (current) use of anticoagulants (principal)

== ENCOUNTER → 2024-01-19 12:14 | Outpatient (BNVA) | payer OTHER, SELFPAY | PROVIDERS: PCP Family Medicine; Visit Provider Internal Medicine | DX: Z95.2 Presence of prosthetic heart valve (principal); Z79.01 Long term (current) use of anticoagulants; Z51.81 Encounter for therapeutic drug level monitoring | CPT/HCPCS: 85610; 99211 ==

== ENCOUNTER 2024-01-30 15:38 | Outpatient (AMB) | payer OTHER, SELFPAY ==
[2024-01-30 15:45] LABS: Prothrombin Time Whole Bld POC 30.4 sec (11.1-13.5); ~PT, ~INR - Anti Coag Clinic 2.5 (0.9-1.1)
--- NOTE | 2024-01-30 15:49 | MHC.OFFVISCO ---
Intake Intake Visit Reasons: Anticoagulation Allergies peach Allergy (Severe, Verified 01/30/24 15:39) Angioedema No Known Drug Allergies Allergy (Unknown, Verified 01/30/24 15:39) Unknown Medication List - Last Reconciled 01/30/24 by Ruthy Newby RN ascorbic acid (vitamin C) 500 mg PO BID aspirin (Adult Aspirin Regimen) 81 mg PO DAILY 90 days cetirizine 10 mg PO DAILY cholecalciferol (vitamin D3) 50 mcg PO DAILY hydrocortisone 2.5% (Proctosol HC) 1 appl [place] BID-QID PRN multivitamin (One Daily Multivitamin tablet) 1 tab PO DAILY omeprazole 20 mg PO DAILY PRN tolterodine ER 4 mg PO DAILY warfarin 2 mg See Protocol PO DAILY Nursing Note INR: 2.5 in therapeutic range Medications and supplements reviewed No changes in health, diet, medications, or supplements, Denies any signs and symptoms of bleeding or bruising or clotting. Bleeding, bruising, clotting discussed Nutritional guidance given Dose: KEEP SAME F/U INR: 3 WEEKS Patient verbalizes understanding of instructions given Anti-Coag Initial Assessment Social Hx Patient Tobacco Use Status: Never used Tobacco alcohol intake: never Alcohol intake frequency: does not drink Coding Level of Care Code Est Patient Level 1 Diagnoses Current use of anticoagulant therapy Z79.01 Results AMB INR Fingerstick AMB INR Fingerstick 2.5 Last Edit by Ruthy Newby RN on 01/30/24 15:47 Assessment & Plan Assessment & Plan (1) Current use of anticoagulant therapy: Comment: Continue Coumadin. 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
== END 2024-01-30 15:50 | disposition home or self-care (01) ==
LOC: HO.ACS 15:38
PROVIDERS: PCP Family Medicine; Visit Provider Internal Medicine
DX: Z79.01 Long term (current) use of anticoagulants (principal)

== ENCOUNTER → 2024-01-30 15:38 | Outpatient (BNVA) | payer OTHER, SELFPAY | PROVIDERS: PCP Family Medicine; Visit Provider Internal Medicine | DX: Z95.2 Presence of prosthetic heart valve (principal); Z79.01 Long term (current) use of anticoagulants; Z51.81 Encounter for therapeutic drug level monitoring | CPT/HCPCS: 85610; 99211 ==

== ENCOUNTER 2024-02-22 14:47 | Outpatient (AMB) | payer OTHER, SELFPAY ==
--- NOTE | 2024-02-22 14:55 | MHC.OFFVISCO ---
Intake Intake Visit Reasons: Anticoagulation Allergies peach Allergy (Severe, Verified 02/22/24 14:47) Angioedema No Known Drug Allergies Allergy (Unknown, Verified 02/22/24 14:47) Unknown Medication List - Last Reconciled 02/22/24 by Ruthy Newby RN ascorbic acid (vitamin C) 500 mg PO BID aspirin (Adult Aspirin Regimen) 81 mg PO DAILY 90 days cetirizine 10 mg PO DAILY cholecalciferol (vitamin D3) 50 mcg PO DAILY hydrocortisone 2.5% (Proctosol HC) 1 appl [place] BID-QID PRN multivitamin (One Daily Multivitamin tablet) 1 tab PO DAILY omeprazole 20 mg PO DAILY PRN tolterodine ER 4 mg PO DAILY warfarin 2 mg See Protocol PO DAILY Nursing Note INR 3.3? out of therapeutic range Medications and supplements reviewed Patient status: Has been eating smoothies with celery in it - celery contains natural coumarin in and can raise the INR in large amts Medications or supplements: no changes Diet: good Denies any signs and symptoms of bleeding or clotting or unusual bruising Bleeding, bruising, clotting discussed Nutritional guidance given: review food list weekly, add foods with more vit to smoothie Dose: keep same dose 6mg daily F/U INR Date: 3 weeks ?? Patient verbalizing understanding of instructions given. Anti-Coag Initial Assessment Social Hx Patient Tobacco Use Status: Never used Tobacco alcohol intake: never Alcohol intake frequency: does not drink Coding Level of Care Code Est Patient Level 1 Diagnoses Current use of anticoagulant therapy Z79.01 Results AMB INR Fingerstick AMB INR Fingerstick 3.3 Last Edit by Ruthy Newby RN on 02/22/24 14:58 manual entry Assessment & Plan Assessment & Plan (1) Current use of anticoagulant therapy: Comment: Continue Coumadin. 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
[2024-02-22 15:03] LABS: ~PT, ~INR - Anti Coag Clinic 3.3 (0.9-1.1)
== END 2024-02-22 15:07 | disposition home or self-care (01) ==
LOC: HO.ACS 14:47
PROVIDERS: PCP Family Medicine; Visit Provider Internal Medicine
DX: Z79.01 Long term (current) use of anticoagulants (principal)

== ENCOUNTER → 2024-02-22 14:47 | Outpatient (BNVA) | payer OTHER, SELFPAY | PROVIDERS: PCP Family Medicine; Visit Provider Internal Medicine | DX: Z95.2 Presence of prosthetic heart valve (principal); Z79.01 Long term (current) use of anticoagulants; Z51.81 Encounter for therapeutic drug level monitoring | CPT/HCPCS: 85610; 99211 ==

== ENCOUNTER 2024-03-11 15:39 | Outpatient (AMB) | payer OTHER, SELFPAY ==
--- NOTE | 2024-03-11 15:36 | MHC.OFFVISCO ---
Intake Intake Visit Reasons: Anticoagulation Allergies peach Allergy (Severe, Verified 03/11/24 15:27) Angioedema No Known Drug Allergies Allergy (Unknown, Verified 03/11/24 15:27) Unknown Medication List - Last Reconciled 03/11/24 by Silvia Paredes, RN ascorbic acid (vitamin C) 500 mg PO BID aspirin (Adult Aspirin Regimen) 81 mg PO DAILY 90 days cetirizine 10 mg PO DAILY cholecalciferol (vitamin D3) 50 mcg PO DAILY hydrocortisone 2.5% (Proctosol HC) 1 appl [place] BID-QID PRN multivitamin (One Daily Multivitamin tablet) 1 tab PO DAILY omeprazole 20 mg PO DAILY PRN tolterodine ER 4 mg PO DAILY warfarin See Protocol orally 6mg daily; Nursing Note INR: 2.7 in therapeutic range of 2-3 Medications and supplements reviewed No changes in health, diet, medications, or supplements, Denies any signs and symptoms of bleeding or bruising or clotting Nutritional guidance given to continue to balance greens and reds Dose: continue usual dose of 6mg daily F/U INR: 2 weeks Patient verbalizes understanding of instructions given Anti-Coag Initial Assessment Social Hx Patient Tobacco Use Status: Never used Tobacco alcohol intake: never Alcohol intake frequency: does not drink Coding Level of Care Code Est Patient Level 1 Diagnoses Current use of anticoagulant therapy Z79.01 Assessment & Plan Assessment & Plan (1) Current use of anticoagulant therapy: Comment: Continue Coumadin. Code(s): Z79.01 - group home (current) use of anticoagulants Category: Medical
[2024-04-02 07:22] LABS: Prothrombin Time Whole Bld POC 32.6 sec (11.1-13.5); ~PT, ~INR - Anti Coag Clinic 2.7 (0.9-1.1)
== END 2024-03-11 15:39 | disposition home or self-care (01) ==
LOC: HO.ACS 15:39
PROVIDERS: PCP Family Medicine; Visit Provider Internal Medicine
DX: Z79.01 Long term (current) use of anticoagulants (principal)

== ENCOUNTER → 2024-03-11 15:39 | Outpatient (BNVA) | payer OTHER, SELFPAY | PROVIDERS: PCP Family Medicine; Visit Provider Internal Medicine | DX: R10.13 Epigastric pain (principal); K86.1 Other chronic pancreatitis; K76.0 Fatty (change of) liver, not elsewhere classified; R10.84 Generalized abdominal pain; R74.01 Elevation of levels of liver transaminase levels; Z95.2 Presence of prosthetic heart valve; Z79.01 Long term (current) use of anticoagulants; Z51.81 Encounter for therapeutic drug level monitoring | CPT/HCPCS: 85610; 99211; 99212 ==

== ENCOUNTER 2024-03-11 15:46 | Outpatient (AMB) | payer OTHER, SELFPAY ==
--- NOTE | 2024-03-11 15:56 | MHC.OFFVIS ---
Vital Signs 03/11/24 15:58 Height 4 ft 11 in Weight 146 lb 6.191 oz BMI 29.6 BP 96/54 L Blood Pressure Location Rt brachial Position Sitting Pulse 62 Pulse Source Pulse Oximeter Pulse Oximetry (%) 97 Oxygen Delivery Method Room Air Intake Visit Reasons: 3 month follow up Intake Note: Thalia presents in office today for a scheduled 3 mos FUV. CC; Pt reports that they are still experiencing abdominal discomfort (burning) which is primarily noticeable while eating and drinking water. Pt reports that they are experiencing GERD sx but denies any nausea or vomiting. Pt reports that their sx have remained stable but not improved since their last visit. Pt reports that they are having difficulties with taste as well and they would like to discuss this with the nurse practitioner. Pt reports having R flank pain for approximately the last 2 months. Pt denies any additional associated sx to their knowledge. Digital Cartographic Technician Required: Yes Digital Cartographic Technician Services: Digital Cartographic Technician Present Digital Cartographic Technician Name: [id number] Brian Information Interpreted: clinical only Accompanied by: Self / Same As Patient Allergies peach Allergy (Severe, Verified 03/11/24 15:57) Angioedema No Known Drug Allergies Allergy (Unknown, Verified 03/11/24 15:57) Unknown HPI HPI 3 month follow up: Details: LAST VISIT: Chronic pancreatitis Hepatic steatosis Postprandial epigastric pain Abdominal pain Transaminitis Plan History of chronic hepatitis, recently liver enzymes elevated. Patient had ultrasound done on and has not been read yet. Call placed to Radiology Department for them to read the ultrasound for us. Hepatic steatosis found previously on MRI in February of 2023. Stressed with patient again about weight loss. Avoid food high in fat. Eat more protein and avoid carbs. If patient will continue to have pain in the right upper quadrant we can send her for HIDA scan. Normal looking gallbladder no CBD dilation seen on MRI in February of 2023. Patient will follow-up in our office in 3 months, sooner on as needed basis. Patient is agreeable to this plan and verbalizes understanding of instructions. She was given the opportunity to ask questions and all questions answered. ? Thank you for allowing me to participate in her care Orders Orders Hepatitis A,B,C Profile Today R79.89 Hemoglobin A1c Today E11.9 Lipase Today R10.9 Liver Panel Today R74.01 TODAY'S VISIT Patient is here today for follow-up and to discuss lab results. Patient had normal liver enzymes, normal lipase. Abdominal ultrasound with liver elastography shows no more echogenicity and normal stiffness. Patient reports that she has been having epigastric pain postprandially. Postprandial abdominal bloating. Reports that she is moving her bowels well without any issues. Patient currently is using omeprazole only on as needed basis. Patient states that she has not used it for quite some time. Patient reports to be drinking lemon water every morning. Reports that she has epigastric pain postprandially, however when she drinks water her symptoms are better. Patient reports abdominal bloating. Patient is not on any particular diet currently. Denies dysphagia or odynophagia. Occasional dyspepsia. Denies melena, hematochezia, unintentional weight loss or ribbon like stools. Colonoscopy in 2021 no polyps found. Upper endoscopy showed mild gastric erythema with small erosion at the GE junction. Patient was on omeprazole and has stopped it several months ago. Patient denies any nausea or vomiting [facility] Medical History Hepatic steatosis Chronic pancreatitis Diverticulosis History of COVID-19 Diabetes Anticoagulation goal of INR 2 to 3 Aortic regurgitation Rheumatic heart disease Surgical History History of esophagogastroduodenoscopy (EGD) Hx of colonoscopy History of section Heart valve replaced Social History Alcohol intake: never Patient Tobacco Use Status: Never used Tobacco Gender identity: Female Female Reproductive History Menstrual Age of Menarche: 14 Review of Systems Const Denies weight gain and Denies weight loss ENT Reports no additional complaints, Denies dysphagia and Denies odynophagia Card Reports no additional complaints Resp Reports no additional complaints GI Denies abdominal pain, Denies belching, Denies melena, Reports bloating, Denies change in bowel habits, Denies dysphagia, Denies excessive flatus, Denies dyspepsia, Reports heartburn, Denies diarrhea, Denies loose stools, Denies nausea, Denies odynophagia and Denies vomiting Reports no additional complaints Musc Reports no additional complaints Neuro Reports no additional complaints Psych Reports no additional complaints Endo Reports no additional complaints Physical Exam Vital Signs: Last Vital Signs Pulse 62 03/11/24 15:58 BP 96/54 L 03/11/24 15:58 Pulse Ox 97 03/11/24 15:58 Oxygen Delivery Method Room Air 03/11/24 15:58 BMI result Body Mass Index 29.6 Const General: healthy appearing, no acute distress and well developed Nutritional Appearance: obese Orientation/consciousness: patient oriented x3 Resp Effort & Inspection: normal respiratory effort, able to speak in complete sentences, no tracheal deviation and symmetric chest movement Auscultation: clear to auscultation bilaterally Cardio Rate: regular rate GI Inspection: Yes normal to inspection, No distended and Yes obesity Palpation (GI): Soft to palpation, not firm, nontender and No hepatosplenomegaly present Auscultation: normal bowel sounds General: Yes no CVA tenderness Back/Spine/Pelvis Back: no CVA tenderness Skin General skin exam: elasticity normal, turgor normal and dry skin Neuro General: patient oriented x3 Psych Appearance: grossly normal Mental Status: mental status grossly normal Results AMB INR Fingerstick AMB INR Fingerstick 2.7 Last Edit by Silvia Paredes RN on 03/11/24 15:34 interface delay Results Reviewed Results Reviewed: Laboratory Tests 12/11/23 12/25/23 16:30 15:55 Estimat Average Glucose 117 Hemoglobin A1c % 5.7 AST 26 ALT 30 Alkaline Phosphatase 62 Lipase 26 Stool Pancreat Elastase >500 Hepatitis A IgM Ab Nonreactive Hep Bs Antigen Negative Hep Bs Antibody REACTIVE Hep B Core Total Ab Nonreactive Hepatitis C Ab (EIA) Nonreactive ABDOMINAL ULTRASOUND WITH LIVER ELASTOGRAPHY IMPRESSION: 1. Heterogeneous normal sized liver without evidence to suggest hepatic steatosis. 2. Liver elastography: Measurements are consistent with a high probability of normal liver stiffness. 3. Ptotic dilated infrarenal aorta measuring 2.7 cm. Follow up is recommended with ultrasound every 5 years. Assessment & Plan Assessment & Plan (1) Postprandial epigastric pain: Code(s): R10.13 - Epigastric pain Category: Medical (2) Chronic pancreatitis: Code(s): K86.1 - Other chronic pancreatitis Category: Medical Qualifiers: Pancreatitis type: unspecified pancreatitis type Qualified Code(s): K86.1 - Other chronic pancreatitis (3) Hepatic steatosis: Code(s): K76.0 - Fatty (change of) liver, not elsewhere classified Category: Medical (4) Abdominal pain: Code(s): R10.9 - Unspecified abdominal pain Qualifiers: Abdominal location: generalized Qualified Code(s): R10.84 - Generalized abdominal pain (5) Transaminitis: Code(s): R74.01 - Elevation of levels of liver transaminase levels Plan Patient will be sent for upper GI series if positive for reflux she will restart taking omeprazole or we can change to something different. Discussed with patient avoiding dietary triggers and late night snacking. Staying upright for minimum 3 hours after meals discussed with patient. Patient will avoid anything spicy or acidic. She continues to have epigastric pain and postprandial abdominal bloating. Low FODMAP diet discussed with patient. List of food recommended as well as list of food to avoid given to patient. Patient will follow-up in the office in 3 months, sooner on as needed basis. She is agreeable to this plan and verbalizes understanding of instructions. She was given the opportunity to ask questions and all questions answered. Thank you for allowing me to participate in his care Orders: Orders FL upper GI small bowel Today R10.13 - Epigastric pain Coding Level of Care Code Est Pt Level 4 (09282) Diagnoses Postprandial epigastric pain R10.13 Chronic pancreatitis, unspecified pancreatitis type K86.1 Pancreatitis type: unspecified pancreatitis type Hepatic steatosis K76.0 Generalized abdominal pain R10.84 Abdominal location: generalized Transaminitis R74.01 Time Spent (min) 35 Comment 30 minutes spent with patient and additional 15 minutes spent reviewing her records
[2024-03-11 15:58] VITALS: BP 96/54; PULSE 62; O2SAT 97; BMI 29.6
== END 2024-03-11 16:32 | disposition home or self-care (01) ==
PROVIDERS: PCP Family Medicine; Visit Provider Nurse Practitioner Family
DX: R10.13 Epigastric pain (principal); K86.1 Other chronic pancreatitis; K76.0 Fatty (change of) liver, not elsewhere classified; R10.84 Generalized abdominal pain; R74.01 Elevation of levels of liver transaminase levels
CPT/HCPCS: 99214

== ENCOUNTER 2024-03-27 14:06 | Outpatient (AMB) | payer OTHER, SELFPAY ==
[2024-03-27 14:19] LABS: Prothrombin Time Whole Bld POC 47.1 sec (11.1-13.5); ~PT, ~INR - Anti Coag Clinic 3.9 (0.9-1.1)
--- NOTE | 2024-03-27 14:24 | MHC.OFFVISCO ---
Intake Intake Visit Reasons: Anticoagulation Allergies peach Allergy (Severe, Verified 03/27/24 14:15) Angioedema No Known Drug Allergies Allergy (Unknown, Verified 03/27/24 14:15) Unknown Medication List - Last Reconciled 03/27/24 by Tricia Stock RN ascorbic acid (vitamin C) 500 mg PO BID aspirin (Adult Aspirin Regimen) 81 mg PO DAILY 90 days cetirizine 10 mg PO DAILY cholecalciferol (vitamin D3) 50 mcg PO DAILY fluoride (sodium) 1.1% appl PO hydrocortisone 2.5% (Proctosol HC) 1 appl [place] BID-QID PRN multivitamin (One Daily Multivitamin tablet) 1 tab PO DAILY omeprazole 20 mg PO DAILY PRN sumatriptan succinate 50 mg PO tolterodine ER 4 mg PO DAILY warfarin See Protocol orally 6mg daily; Nursing Note PT.STATES THAT SHE HAS HAD LARGE AMTS.OF WATERMELON THIS WEEK. NO CP,SOB,MED CHANGES OR SX OF BLEEDING. HOLD WARFARIN TODAY THEN RESUME USUAL DOSE ANDF FOLLOW-UP IN 3 WEEKS. GOOD UNDERSTANDING OF DOSING INSTR. Anti-Coag Initial Assessment Social Hx Patient Tobacco Use Status: Never used Tobacco alcohol intake: never Alcohol intake frequency: does not drink Coding Level of Care Code Est Patient Level 1 Diagnoses Current use of anticoagulant therapy Z79.01 Assessment & Plan Assessment & Plan (1) Current use of anticoagulant therapy: Comment: Continue Coumadin. Code(s): Z79.01 - [facility] (current) use of anticoagulants Category: Medical
== END 2024-03-27 14:26 | disposition home or self-care (01) ==
LOC: HO.ACS 14:06
PROVIDERS: PCP Family Medicine; Visit Provider Internal Medicine
DX: Z79.01 Long term (current) use of anticoagulants (principal)

== ENCOUNTER → 2024-03-27 14:06 | Outpatient (BNVA) | payer OTHER, SELFPAY | PROVIDERS: PCP Family Medicine; Visit Provider Internal Medicine | DX: Z95.2 Presence of prosthetic heart valve (principal); Z79.01 Long term (current) use of anticoagulants; Z51.81 Encounter for therapeutic drug level monitoring | CPT/HCPCS: 85610; 99211 ==

== ENCOUNTER 2024-04-11 11:19 | Outpatient (AMB) | payer OTHER, SELFPAY ==
--- NOTE | 2024-04-11 11:24 | A.OFFVIS_ITS ---
Intake Visit Reasons: SIEBEL ARCHITECT- Right sided low back pain Intake Note: Thalia is a 49 year old female who presents to the office today for Right sided low back pain referred by [facility]. Pt states that the pain started 2 years ago when she was helping someone move some boxes and that is when the pain started. She has gotten massages on her back to try and help but that has made it worse. She reports stretching does help with the pain. She is taking acetaminophen every 8 hours to help with the pain. She also is taking another muscle relaxer but she cannot remember the name of it. She will get us this information once she finds it. 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 Photographic Equipment Inspector Services: Photographic Equipment Inspector Present Photographic Equipment Inspector Name: [id number] Allergies peach Allergy (Severe, Verified 04/11/24 11:42) Angioedema No Known Drug Allergies Allergy (Unknown, Verified 04/11/24 11:42) Unknown Medication List - Last Reconciled 04/11/24 by Bhumi Shirley RN ascorbic acid (vitamin C) 500 mg PO BID aspirin (Adult Aspirin Regimen) 81 mg PO DAILY 90 days cetirizine 10 mg PO DAILY cholecalciferol (vitamin D3) 50 mcg PO DAILY fluoride (sodium) 1.1% appl PO hydrocortisone 2.5% (Proctosol HC) 1 appl [place] BID-QID PRN multivitamin (One Daily Multivitamin tablet) 1 tab PO DAILY omeprazole 20 mg PO DAILY PRN sumatriptan succinate 50 mg PO tolterodine ER 4 mg PO DAILY warfarin See Protocol orally 6mg daily; HPI Comments Details: Chronic back pain, for at least 2 years, without inciting injuries. Right sided, non radicular to the leg, maybe to the hip at times, lateral and goes to the groin. Right big toe and 2nd toe gets numb but not associated with the back pain. She says it is separate issue. After prolonged standing, she starts to have tingling on right side back. She used to have constipation. She mentions urinary incontinence. Treatment done so far: muscle relaxer home exercises physical therapy wears a support SI joint belt Thoracic x-ray normal; pelvic x-ray shows moderate right hip arthritis; lumbar x-ray showed facet arthritis. Patient is on warfarin, history of AVR. [facility] Medical History (Updated 04/11/24 @ 12:02 by Angeline Ochoa MD) Postprandial epigastric pain Hepatic steatosis Chronic pancreatitis Diverticulosis History of COVID-19 Diabetes Anticoagulation goal of INR 2 to 3 Aortic regurgitation Rheumatic heart disease Surgical History History of esophagogastroduodenoscopy (EGD) Hx of colonoscopy History of section Heart valve replaced Social History Alcohol intake: never Patient Tobacco Use Status: Never used Tobacco Gender identity: Female Female Reproductive History Menstrual Age of Menarche: 14 Review of Systems Const All systems reviewed & are unremarkable except as noted in HPI and below Physical Exam Constitutional: Patient appears to be in no acute distress, well nourished and well developed. Patient was appropriately conversant and oriented. Good historian. MSK: No specific abnormalities found on inspection of the spine and all extremities. No pain with palpation over the lumbar area. Lumbar ROM was full. Bilateral hip, knee and ankle ROM WNL. No ligamentous laxity or crepitance. No increased effusion. Straight-leg raising test negative. FABERE test positive right hip/groin pain. Strength is 5/5 in all muscle groups tested. No increased tone noted. Neurological: Neurologic examination of the upper and lower extremities was nonfocal with intact sensation, muscle stretch reflexes and without focal motor deficits . Farrell?s negative bilaterally. Babinski was down going bilaterally. Clonus was negative. Gait is non-antalgic without loss of balance. Results Reviewed Results Reviewed: I independently reviewed the results of the following: X-rays reviewed as above. Ordering Physician: Clara Shearer MD Date of Service: 11/16/23 Procedure(s): XR thoracic spine 2V Accession Number(s): [id number] cc: Clara Shearer MD~ EXAMINATION: XR THORACOLUMBAR SPINE CLINICAL INFORMATION: Pain COMPARISON: None available. TECHNIQUE: 3 views of the dorsal spine FINDINGS: The vertebral alignment is normal. No intrinsic bony abnormality. The disc heights and neural foramina are well maintained. The endplates and posterior elements are normal. No fracture or subluxation. The surrounding prevertebral soft tissues are unremarkable. Incidental note made of postsurgical changes in the chest with sternotomy wires and valve replacement. XR/XR thoracic spine 2V IMPRESSION: Dorsal spine normal. Ordering Physician: Clara Shearer MD Date of Service: 11/03/23 Procedure(s): XR pelvis 1-2V Accession Number(s): [id number] cc: Clara Shearer MD~ EXAMINATION: XR LUMBAR SPINE XR RIGHT HIP XR PELVIS CLINICAL INFORMATION: Back pain worse right side, patient states no injury, pain in lower back and right hip/pelvis area. COMPARISON: None available. TECHNIQUE: 5 views of the lumbar spine. AP view pelvis. AP and lateral views right hip. FINDINGS: PELVIS: IUD in the pelvis. Bilateral sacroiliac joints are symmetric with mild sclerosis. Pubic symphysis is maintained. RIGHT HIP: Moderate narrowing of the joint space. Advanced hypertrophic change along the superolateral aspect of the acetabulum with superolateral narrowing suggesting a CAM deformity. Small sclerotic focus overlies the medial aspect of the joint space on the AP view. Small sclerotic focus overlying the femoral head, possibly representing a bone island. LUMBAR SPINE: Slight leftward curvature of the lumbar spine. Transitional anatomy present. Facet arthritis in the lower lumbar spine. Degenerative changes in the imaged lower thoracic spine. Small rounded density overlying a lower thoracic vertebral body could be within the overlying soft tissues versus small rounded sclerotic bony lesion and should be evaluated with dedicated views of the thoracic spine. Mild multilevel lumbar spondylosis. XR/XR pelvis 1-2V IMPRESSION: 1. Moderate degenerative changes in the right hip. 2. Mild multilevel lumbar spondylosis. 3. Small rounded density overlying a lower thoracic vertebral body could be within the overlying soft tissues versus small rounded sclerotic bony lesion and should be evaluated with dedicated views of the thoracic spine. Ordering Physician: Clara Shearer MD Date of Service: 11/03/23 Procedure(s): XR lumbar spine 4V min Accession Number(s): [id number] cc: Clara Shearer MD~ EXAMINATION: XR LUMBAR SPINE XR RIGHT HIP XR PELVIS CLINICAL INFORMATION: Back pain worse right side, patient states no injury, pain in lower back and right hip/pelvis area. COMPARISON: None available. TECHNIQUE: 5 views of the lumbar spine. AP view pelvis. AP and lateral views right hip. FINDINGS: PELVIS: IUD in the pelvis. Bilateral sacroiliac joints are symmetric with mild sclerosis. Pubic symphysis is maintained. RIGHT HIP: Moderate narrowing of the joint space. Advanced hypertrophic change along the superolateral aspect of the acetabulum with superolateral narrowing suggesting a CAM deformity. Small sclerotic focus overlies the medial aspect of the joint space on the AP view. Small sclerotic focus overlying the femoral head, possibly representing a bone island. LUMBAR SPINE: Slight leftward curvature of the lumbar spine. Transitional anatomy present. Facet arthritis in the lower lumbar spine. Degenerative changes in the imaged lower thoracic spine. Small rounded density overlying a lower thoracic vertebral body could be within the overlying soft tissues versus small rounded sclerotic bony lesion and should be evaluated with dedicated views of the thoracic spine. Mild multilevel lumbar spondylosis. XR/XR lumbar spine 4V min IMPRESSION: 1. Moderate degenerative changes in the right hip. 2. Mild multilevel lumbar spondylosis. 3. Small rounded density overlying a lower thoracic vertebral body could be within the overlying soft tissues versus small rounded sclerotic bony lesion and should be evaluated with dedicated views of the thoracic spine. Assessment & Plan Assessment & Plan (1) Chronic right-sided back pain: Code(s): M54.9 - Dorsalgia, unspecified; G89.29 - Other chronic pain Category: Medical Qualifiers: Back pain location: low back pain Sciatica presence: without sciatica Qualified Code(s): M54.50 - Low back pain, unspecified; G89.29 - Other chronic pain (2) Right lumbar radiculitis: Code(s): M54.16 - Radiculopathy, lumbar region Category: Medical (3) Degenerative joint disease of right hip: Code(s): M16.11 - Unilateral primary osteoarthritis, right hip Category: Medical Qualifiers: Osteoarthritis type: primary Qualified Code(s): M16.11 - Unilateral primary osteoarthritis, right hip Plan Lumbar pelvic right-sided chronic pain, with findings of moderate DJD in right hip. Concerned for numbness on right 1st and 2nd digits, possible lumbar radiculitis. Patient had undergone adequate conservative management including [PT] without improvement of condition. It would be reasonable to obtain further imaging such as MRI. An MRI would help rule out any serious condition, guide treatment and assess prognosis for recovery. Specifically ruling out right L5-S1 disc ruby iation. If MRI negative for L5 or S1 nerve impingement, we may consider EMG. Considering referral to Orthopedics for hip replacement, we will discuss with patient on next follow-up. Assessment and plan discussed with patient, and patient was agreeable. All questions were answered thoroughly. Follow up after MRI. Angeline Ochoa MD, TAYE Board Certified, [place] Board of Physical Medicine and Rehabilitation (ABPMR) Board Certified, [place] Board [employer] Electrodiagnostic Medicine (ABEM) Coding Level of Care Code New Pt Level 4 (77679) Diagnoses Chronic right-sided low back pain without sciatica M54.50; G89.29 Back pain location: low back pain Sciatica presence: without sciatica Right lumbar radiculitis M54.16 Primary osteoarthritis of right hip M16.11 Osteoarthritis type: primary
== END 2024-04-11 12:41 | disposition home or self-care (01) ==
PROVIDERS: PCP Family Medicine; Visit Provider Physical Medicine & Rehabilitation
DX: M54.16 Radiculopathy, lumbar region (principal); G89.29 Other chronic pain; M16.11 Unilateral primary osteoarthritis, right hip
CPT/HCPCS: 99204

== ENCOUNTER → 2024-04-11 11:19 | Outpatient (BNVA) | payer OTHER, SELFPAY | PROVIDERS: PCP Family Medicine; Visit Provider Physical Medicine & Rehabilitation | DX: M54.50 Low back pain, unspecified (principal); M54.16 Radiculopathy, lumbar region; M16.11 Unilateral primary osteoarthritis, right hip; G89.29 Other chronic pain | CPT/HCPCS: 99202 ==

== ENCOUNTER 2024-04-17 15:31 | Outpatient (AMB) | payer OTHER, SELFPAY ==
[2024-04-17 15:37] LABS: Prothrombin Time Whole Bld POC 29.5 sec (11.1-13.5); ~PT, ~INR - Anti Coag Clinic 2.5 (0.9-1.1)
--- NOTE | 2024-04-17 15:39 | MHC.OFFVISCO ---
Intake Intake Visit Reasons: Anticoagulation Allergies peach Allergy (Severe, Verified 04/17/24 15:32) Angioedema No Known Drug Allergies Allergy (Unknown, Verified 04/17/24 15:32) Unknown Medication List - Last Reconciled 04/17/24 by Tricia Stock RN ascorbic acid (vitamin C) 500 mg PO BID aspirin (Adult Aspirin Regimen) 81 mg PO DAILY 90 days cetirizine 10 mg PO DAILY cholecalciferol (vitamin D3) 50 mcg PO DAILY fluoride (sodium) 1.1% appl PO hydrocortisone 2.5% (Proctosol HC) 1 appl [place] BID-QID PRN multivitamin (One Daily Multivitamin tablet) 1 tab PO DAILY omeprazole 20 mg PO DAILY PRN sumatriptan succinate 50 mg PO tolterodine ER 4 mg PO DAILY warfarin See Protocol orally 6mg daily; Nursing Note NO CP,SOB,DIET/MED CHANGES,FALLS OR SX OF BLEEDING. CONTINUE 6MGM DAILY AND FOLLOW-UP IN 4 WEEKS. GOOD UNDERSTANDING OF DOSING INSTR. Anti-Coag Initial Assessment Social Hx Patient Tobacco Use Status: Never used Tobacco alcohol intake: never Alcohol intake frequency: does not drink Coding Level of Care Code Est Patient Level 1 Diagnoses Current use of anticoagulant therapy Z79.01 Results AMB INR Fingerstick AMB INR Fingerstick 2.5 Last Edit by Tricia Stock RN on 04/17/24 15:37 Assessment & Plan Assessment & Plan (1) Current use of anticoagulant therapy: Comment: Continue Coumadin. 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
== END 2024-04-17 15:41 | disposition home or self-care (01) ==
LOC: HO.ACS 15:31
PROVIDERS: PCP Internal Medicine; Visit Provider Internal Medicine
DX: Z79.01 Long term (current) use of anticoagulants (principal)

== ENCOUNTER → 2024-04-17 15:31 | Outpatient (BNVA) | payer OTHER, SELFPAY | PROVIDERS: PCP Internal Medicine; Visit Provider Internal Medicine | DX: Z95.2 Presence of prosthetic heart valve (principal); Z79.01 Long term (current) use of anticoagulants; Z51.81 Encounter for therapeutic drug level monitoring | CPT/HCPCS: 85610; 99211 ==

== ENCOUNTER 2024-04-30 07:55 | Outpatient (REF) | payer OTHER, SELFPAY ==
--- NOTE | ~2024-04-30 | FL_ITS ---
EXAMINATION: XR FLUOROSCOPY UPPER GI AND SMALL BOWEL SERIES CLINICAL INFORMATION: Epigastric pain. Reflux. COMPARISON: None TECHNIQUE: Fluoroscopic air contrast upper GI examination was performed utilizing standard techniques with thin and thick barium and effervescent granules. Numerous spot images were obtained. FINDINGS: Lateral cine images of the oropharynx and hypopharynx demonstrate normal swallow mechanism with normal epiglottic inversion and soft palate elevation. No tracheal penetration, glottic or subglottic aspiration identified. No nasopharyngeal reflux present. Hypopharyngeal structures appear normal without evidence of mass or diverticulum. There was no significant cricopharyngeal achalasia. Median sternotomy wires are present. A prosthetic aortic valve is present. Dual and single contrast images of the esophagus demonstrate normal caliber, contour, and mucosal pattern. No evidence of stricture, mass, or ulcerations identified. Esophageal peristalsis was normal. No evidence of hiatus hernia identified. Mild gastroesophageal reflux observed in the distal esophagus. Dual contrast and single contrast images of the stomach demonstrated normal contour and mucosal pattern without evidence of mass, ulceration, or other abnormality. Contrast freely passed into the gastric antrum and duodenal bulb without delay. Single and air-contrast images of the duodenal bulb demonstrate no abnormality. The duodenal sweep has a normal appearance, course, and mucosal fold appearance. The small bowel has a normal fold pattern and caliber. No strictures, masses or dilated segments are present. After 195 minutes, contrast opacifies the cecum. The terminal ileum is unremarkable. FLUOROSCOPY TIME: 5 minutes 45 seconds DOSE AREA PRODUCT: [id number] uGy-m2 (microgray-meter squared) FL/FL upper GI small bowel IMPRESSION: 1. Mild gastroesophageal reflux. 2. Slow transit of the barium column. Barium is seen in the right colon after 195 minutes. No strictures or masses are seen. Etiology is unclear. 3. Status post AVR. This procedure was performed by Spencer Payne PA-C, and supervised by Dr. Calderón Electronically signed by: Edinson Bojorquez MD 05/02/2024 01:50 PM EDT
== END 2024-04-30 07:56 | disposition home or self-care (01) ==
LOC: HO.XRAY 07:55
PROVIDERS: PCP Family Medicine; Visit Provider Nurse Practitioner Family
DX: R10.13 Epigastric pain (principal)
CPT/HCPCS: 74240; 74248

== ENCOUNTER → 2024-04-30 07:56 | Outpatient (BNV) | payer OTHER, SELFPAY | PROVIDERS: PCP Family Medicine; Visit Provider Student in an Organized Health Care Education/Training Program | DX: R10.31 Right lower quadrant pain (principal); K21.9 Gastro-esophageal reflux disease without esophagitis | CPT/HCPCS: 74246 ==

== ENCOUNTER 2024-05-15 15:28 | Outpatient (AMB) | payer OTHER, SELFPAY ==
[2024-05-15 15:42] LABS: Prothrombin Time Whole Bld POC 18.9 sec (11.1-13.5); ~PT, ~INR - Anti Coag Clinic 1.6 (0.9-1.1)
--- NOTE | 2024-05-15 16:15 | MHC.OFFVISCO ---
Intake Intake Visit Reasons: Anticoagulation Allergies peach Allergy (Severe, Verified 05/15/24 15:29) Angioedema No Known Drug Allergies Allergy (Unknown, Verified 05/15/24 15:29) Unknown Medication List - Last Reconciled 05/15/24 by Tricia Stock RN ascorbic acid (vitamin C) 500 mg PO BID aspirin (Adult Aspirin Regimen) 81 mg PO DAILY 90 days cetirizine 10 mg PO DAILY cholecalciferol (vitamin D3) 50 mcg PO DAILY fluoride (sodium) 1.1% appl PO hydrocortisone 2.5% (Proctosol HC) 1 appl [place] BID-QID PRN multivitamin (One Daily Multivitamin tablet) 1 tab PO DAILY omeprazole 20 mg PO DAILY PRN sumatriptan succinate 50 mg PO tolterodine ER 4 mg PO DAILY warfarin See Protocol orally 6mg daily; Nursing Note PT.STATES THAT SHE DID NOT HAVE ANY MISSED DOSES OF WARFARIN. NO CP,SOB OR SX OF BLEEDING. PT.STATES THAT SHE IS SCHEDULED FOR SPINAL INJECTION ON 05/23, BUT HAS NO INSTRUCTIONS RE NEED FOR LOVENOX OR HOLDING WARFARIN. MULTIPLE ATTEMPTS MADE TO REACH [facility] WERE UNSUCCESSFUL TODAY BY [facility]. PT.AGREES TO CALL [facility] IN AM TO REQUEST INSTRUCTIONS OR WILL CONTACT CARDIOLOGY FOR ASSIST() PT. IS AWARE OF THE NEED FOR ANSWERS BY TOMORROW IT IS LIKELY THAT SHE WILL NEED AT LEAST A 5 DAY HOLD. TO CALL [facility] WITH ANY QUESTIONS /CONCERNS THAT MAY ARISE AND FOR ASSIST WITH DOSING OR LOVENOX. IN MEANTIME PT.WILL BOOST WARFARIN TO 8MGM 2 DAYS THEN DIRECTED PRIOR TO PROCEDURE ON 05/23. FOLLOW-UP APPT. 05/30(1 WEEK POST PROC.) Anti-Coag Initial Assessment Social Hx Patient Tobacco Use Status: Never used Tobacco alcohol intake: never Alcohol intake frequency: does not drink Coding Level of Care Code Est Patient Level 2 Diagnoses Current use of anticoagulant therapy Z79.01 Assessment & Plan Assessment & Plan (1) Current use of anticoagulant therapy: Comment: Continue Coumadin. Code(s): Z79.01 - custodial (current) use of anticoagulants Category: Medical
== END 2024-05-15 16:28 | disposition home or self-care (01) ==
LOC: HO.ACS 15:28
PROVIDERS: PCP Family Medicine; Visit Provider Internal Medicine
DX: Z79.01 Long term (current) use of anticoagulants (principal)

== ENCOUNTER → 2024-05-15 15:28 | Outpatient (BNVA) | payer OTHER, SELFPAY | PROVIDERS: PCP Family Medicine; Visit Provider Internal Medicine | DX: Z95.2 Presence of prosthetic heart valve (principal); Z79.01 Long term (current) use of anticoagulants; Z51.81 Encounter for therapeutic drug level monitoring | CPT/HCPCS: 85610; 99212 ==

== ENCOUNTER 2024-05-30 15:57 | Outpatient (AMB) | payer OTHER, SELFPAY ==
[2024-05-30 16:06] LABS: Prothrombin Time Whole Bld POC 17.3 sec (11.1-13.5); ~PT, ~INR - Anti Coag Clinic 1.4 (0.9-1.1)
--- NOTE | 2024-05-30 16:21 | MHC.OFFVISCO ---
Intake Intake Visit Reasons: Anticoagulation Allergies peach Allergy (Severe, Verified 05/30/24 16:01) Angioedema No Known Drug Allergies Allergy (Unknown, Verified 05/30/24 16:01) Unknown Medication List - Last Reconciled 05/30/24 by Ruthy Newby RN ascorbic acid (vitamin C) 500 mg PO BID aspirin (Adult Aspirin Regimen) 81 mg PO DAILY 90 days cetirizine 10 mg PO DAILY cholecalciferol (vitamin D3) 50 mcg PO DAILY fluoride (sodium) 1.1% appl PO hydrocortisone 2.5% (Proctosol HC) 1 appl [place] BID-QID PRN multivitamin (One Daily Multivitamin tablet) 1 tab PO DAILY omeprazole 20 mg PO DAILY PRN sumatriptan succinate 50 mg PO tolterodine ER 4 mg PO DAILY warfarin See Protocol orally 6mg daily; Nursing Note INR 1.4? out of therapeutic range Medications and supplements reviewed Patient status: PREVIOUS INR 1.6 LAST WEEK HAD BOOSTER DOSES X2 DAYS AND INR IS LOWER, SHE DENIES ANY MISSED DOSES OR OTHER CHANGES, PT HAD SPINAL INJECTION INTO THE SPINAL FACET JOINTS OF L3-L5- SHE STATES SHE DID NOT HAVE TO STOP THE WARFARIN OR USE LOVENOX. Medications or supplements: NO CHANGES Diet: GOOD Denies any signs and symptoms of bleeding or clotting or unusual bruising Bleeding, bruising, clotting discussed Nutritional guidance given: AVOID GREENS X 3 DAYS, EAT ORANGE AND REDS Dose: 10MG TODAY/ THEN INCREASE TO 8MG X 2 DAYS/ 6MG X 5 DAYS F/U INR Date: 06/15/24 WED- PT REFUSED EARLIER APPT ?? Patient verbalizing understanding of instructions given. T/C TO PCP SPOKE WITH NURSE FOX REGARDING PT STATUS OF LOW INR TODAY WITH PLAN OF CARE, PLUS HX OF PREVIOUS VISIT AND CURRENT SPINAL INJECTION Anti-Coag Initial Assessment Social Hx Patient Tobacco Use Status: Never used Tobacco alcohol intake: never Alcohol intake frequency: does not drink Coding Level of Care Code Est Patient Level 1 Diagnoses Current use of anticoagulant therapy Z79.01 Comment T/C TO PCP - MAY NEED F/U CALL WITH NEW PLAN OF CARE Assessment & Plan Assessment & Plan (1) Current use of anticoagulant therapy: Comment: Continue Coumadin. Code(s): Z79.01 - correction (current) use of anticoagulants Category: Medical
== END 2024-05-30 16:27 | disposition home or self-care (01) ==
LOC: HO.ACS 15:57
PROVIDERS: PCP Family Medicine; Visit Provider Internal Medicine
DX: Z79.01 Long term (current) use of anticoagulants (principal)

== ENCOUNTER → 2024-05-30 15:57 | Outpatient (BNVA) | payer OTHER, SELFPAY | PROVIDERS: PCP Family Medicine; Visit Provider Internal Medicine | DX: Z95.2 Presence of prosthetic heart valve (principal); Z79.01 Long term (current) use of anticoagulants; Z51.81 Encounter for therapeutic drug level monitoring | CPT/HCPCS: 85610; 99211 ==

== ENCOUNTER 2024-06-05 14:17 | Outpatient (AMB) | payer OTHER, SELFPAY ==
[2024-06-05 14:27] LABS: Prothrombin Time Whole Bld POC 32.1 sec (11.1-13.5); ~PT, ~INR - Anti Coag Clinic 2.7 (0.9-1.1)
--- NOTE | 2024-06-05 14:48 | MHC.OFFVISCO ---
Intake Intake Visit Reasons: Anticoagulation Allergies peach Allergy (Severe, Verified 06/05/24 14:22) Angioedema No Known Drug Allergies Allergy (Unknown, Verified 06/05/24 14:22) Unknown Medication List - Last Reconciled 06/05/24 by Tricia Stock RN ascorbic acid (vitamin C) 500 mg PO BID aspirin (Adult Aspirin Regimen) 81 mg PO DAILY 90 days cetirizine 10 mg PO DAILY cholecalciferol (vitamin D3) 50 mcg PO DAILY fluoride (sodium) 1.1% appl PO hydrocortisone 2.5% (Proctosol HC) 1 appl [place] BID-QID PRN multivitamin (One Daily Multivitamin tablet) 1 tab PO DAILY omeprazole 20 mg PO DAILY PRN sumatriptan succinate 50 mg PO tolterodine ER 4 mg PO DAILY warfarin See Protocol orally 6mg daily; Nursing Note NO CP,SOB,DIET/MED CHANGES,FALLS OR SX OF BLEEDING. RESUME 6MGM DAILY AND FOLLOW-UP IN 3 WEEKS(UNABLE TO COME IN ANY SOONER) GOOD UNDERSTANDING OF DOSING INSTR. Anti-Coag Initial Assessment Social Hx Patient Tobacco Use Status: Never used Tobacco alcohol intake: never Alcohol intake frequency: does not drink Coding Level of Care Code Est Patient Level 1 Diagnoses Current use of anticoagulant therapy Z79.01 Assessment & Plan Assessment & Plan (1) Current use of anticoagulant therapy: Comment: Continue Coumadin. Code(s): Z79.01 - long term care pharmacist (current) use of anticoagulants Category: Medical
== END 2024-06-05 14:50 | disposition home or self-care (01) ==
LOC: HO.ACS 14:17
PROVIDERS: PCP Family Medicine; Visit Provider Internal Medicine
DX: Z79.01 Long term (current) use of anticoagulants (principal)

== ENCOUNTER → 2024-06-05 14:17 | Outpatient (BNVA) | payer OTHER, SELFPAY | PROVIDERS: PCP Family Medicine; Visit Provider Internal Medicine | DX: Z95.2 Presence of prosthetic heart valve (principal); Z79.01 Long term (current) use of anticoagulants; Z51.81 Encounter for therapeutic drug level monitoring | CPT/HCPCS: 85610; 99211 ==

== ENCOUNTER 2024-06-16 10:12 | Outpatient (REF) | payer OTHER, SELFPAY | END 2024-06-16 10:13 | disposition home or self-care (01) | LOC: HO.MRI 10:12 | PROVIDERS: PCP Family Medicine; Visit Provider Physical Medicine & Rehabilitation | DX: M54.16 Radiculopathy, lumbar region (principal) | CPT/HCPCS: 72148 ==

== ENCOUNTER 2024-06-17 15:57 | Outpatient (AMB) | payer OTHER, SELFPAY ==
[2024-06-17 16:02] VITALS: BP 108/64; PULSE 70; O2SAT 96; BMI 28.5
--- NOTE | 2024-06-17 16:02 | A.OFFVIS_ITS ---
Vital Signs 06/17/24 16:02 Height 4 ft 11 in Weight 141 lb 1.533 oz BMI 28.5 BP 108/64 Blood Pressure Location Rt brachial Position Sitting Pulse 70 Pulse Source Pulse Oximeter Pulse Oximetry (%) 96 Oxygen Delivery Method Room Air Intake Visit Reasons: 3 month follow up Intake Note: Relevant Flags or Indicators ? Requires Echo Tech? Linnea Vásquez presents in office today for a scheduled 3 mos FUV. CC; Recent imaging done. No labs or med changes. Relevant GI Sx as reported per pt? None * Pt has been avoiding trigger foods and has been having much less reflux (Meat) . Pt is also attempting to avoid any night time eating. ?Hx of any recent surgeries? None Echo Tech Required: No Echo Tech Services: Echo Tech Present Echo Tech Name: [id number] Raul Information Interpreted: non-clinical & clinical Accompanied by: Self / Same As Patient Allergies peach Allergy (Severe, Verified 06/26/24 15:39) Angioedema No Known Drug Allergies Allergy (Unknown, Verified 06/26/24 15:39) Unknown HPI HPI 3 month follow up: Details: LAST VISIT Postprandial epigastric pain Chronic pancreatitis Hepatic steatosis Abdominal pain Transaminitis Plan Patient will be sent for upper GI series if positive for reflux she will restart taking omeprazole or we can change to something different. Discussed with patient avoiding dietary triggers and late night snacking. Staying upright for minimum 3 hours after meals discussed with patient. Patient will avoid anything spicy or acidic. She continues to have epigastric pain and postprandial abdominal bloating. Low FODMAP diet discussed with patient. List of food recommended as well as list of food to avoid given to patient. Patient will follow-up in the office in 3 months, sooner on as needed basis. She is agreeable to this plan and verbalizes understanding of instructions. She was given the opportunity to ask questions and all questions answered. ? Thank you for allowing me to participate in his care Orders Orders FL upper GI small bowel Today R10.13 TODAY'S VISIT Patient is here today for follow-up and to discuss upper GI small-bowel series. Patient reports that she has been feeling much better. She is avoiding dietary triggers. Patient is on omeprazole and reports that her symptoms of acid reflux are suppressed. Upper GI series discussed with patient. Minimum reflux noticed on study. Patient denies any dyspepsia, dysphagia or odynophagia. Denies melena, hematochezia, unintentional weight loss or ribbon like stools. [facility] Medical History Postprandial epigastric pain Hepatic steatosis Chronic pancreatitis Diverticulosis History of COVID-19 Diabetes Anticoagulation goal of INR 2 to 3 Aortic regurgitation Rheumatic heart disease Surgical History History of esophagogastroduodenoscopy (EGD) Hx of colonoscopy History of section Heart valve replaced Social History Alcohol intake: never Patient Tobacco Use Status: Never used Tobacco Gender identity: Female Female Reproductive History Menstrual Age of Menarche: 14 Review of Systems Const Denies weight gain and Denies weight loss ENT Reports no additional complaints, Denies dysphagia and Denies odynophagia Card Reports no additional complaints Resp Reports no additional complaints GI Denies abdominal pain, Denies belching, Denies melena, Denies bloating, Denies change in bowel habits, Denies dysphagia, Denies excessive flatus, Denies dyspepsia, Denies heartburn, Denies diarrhea, Denies loose stools, Denies nausea, Denies odynophagia and Denies vomiting Musc Reports no additional complaints Neuro Reports no additional complaints Psych Reports no additional complaints Endo Reports no additional complaints Physical Exam Vital Signs: Last Vital Signs Pulse 70 06/17/24 16:02 BP 108/64 06/17/24 16:02 Pulse Ox 96 06/17/24 16:02 Oxygen Delivery Method Room Air 06/17/24 16:02 BMI result Body Mass Index 28.5 Const General: healthy appearing, no acute distress and well developed Nutritional Appearance: obese Orientation/consciousness: patient oriented x3 Resp Effort & Inspection: normal respiratory effort, able to speak in complete sentences, no tracheal deviation and symmetric chest movement Auscultation: clear to auscultation bilaterally Cardio Rate: regular rate GI Inspection: Yes normal to inspection, No distended and Yes obesity Palpation (GI): Soft to palpation, not firm, nontender and No hepatosplenomegaly present Auscultation: normal bowel sounds General: Yes no CVA tenderness Back/Spine/Pelvis Back: no CVA tenderness Skin General skin exam: elasticity normal, turgor normal and dry skin Neuro General: patient oriented x3 Psych Appearance: grossly normal Mental Status: mental status grossly normal Results Reviewed Results Reviewed: UPPER GI SERIES 04/30/2024 IMPRESSION: 1. Mild gastroesophageal reflux. 2. Slow transit of the barium column. Barium is seen in the right colon after 195 minutes. No strictures or masses are seen. Etiology is unclear. 3. Status post AVR. Assessment & Plan Assessment & Plan (1) Postprandial epigastric pain: Code(s): R10.13 - Epigastric pain Category: Medical (2) Chronic pancreatitis: Code(s): K86.1 - Other chronic pancreatitis Category: Medical Qualifiers: Pancreatitis type: unspecified pancreatitis type Qualified Code(s): K86.1 - Other chronic pancreatitis (3) Hepatic steatosis: Code(s): K76.0 - Fatty (change of) liver, not elsewhere classified Category: Medical (4) Abdominal pain: Code(s): R10.9 - Unspecified abdominal pain Qualifiers: Abdominal location: epigastric Qualified Code(s): R10.13 - Epigastric pain (5) Transaminitis: Code(s): R74.01 - Elevation of levels of liver transaminase levels Plan Continue omeprazole daily or on as needed basis. Patient can wean herself off slowly if she will have no symptoms. Continue avoiding dietary triggers late night snacking. Staying upright for minimum 3 hours after meals discussed with patient. Patient will follow-up in 4 months, sooner on as needed basis. She is agreeable to this plan and verbalizes understanding of instructions. She was given the opportunity to ask questions and all questions answered. Thank you for allowing me to participate in her care Coding Level of Care Code Est Pt Level 4 (54409) Complex EM visit Add On G2211 Diagnoses Postprandial epigastric pain R10.13 Chronic pancreatitis, unspecified pancreatitis type K86.1 Pancreatitis type: unspecified pancreatitis type Hepatic steatosis K76.0 Epigastric pain R10.13 Abdominal location: epigastric Transaminitis R74.01 Time Spent (min) 35 Comment 20 minutes spent with patient and additional 15 minutes spent reviewing her records
== END 2024-06-17 16:36 | disposition home or self-care (01) ==
PROVIDERS: PCP Family Medicine; Visit Provider Nurse Practitioner Family
DX: R10.13 Epigastric pain (principal); K86.1 Other chronic pancreatitis; K76.0 Fatty (change of) liver, not elsewhere classified; R74.01 Elevation of levels of liver transaminase levels
CPT/HCPCS: 99214; G2211

== ENCOUNTER → 2024-06-17 15:57 | Outpatient (BNVA) | payer OTHER, SELFPAY | PROVIDERS: PCP Family Medicine; Visit Provider Nurse Practitioner Family | DX: R10.13 Epigastric pain (principal); K76.0 Fatty (change of) liver, not elsewhere classified; K86.1 Other chronic pancreatitis; R74.01 Elevation of levels of liver transaminase levels | CPT/HCPCS: 99212 ==

== ENCOUNTER 2024-06-26 15:38 | Outpatient (AMB) | payer OTHER, SELFPAY ==
[2024-06-26 15:44] LABS: Prothrombin Time Whole Bld POC 29.9 sec (11.1-13.5); ~PT, ~INR - Anti Coag Clinic 2.5 (0.9-1.1)
--- NOTE | 2024-06-26 15:55 | MHC.OFFVISCO ---
Intake Intake Visit Reasons: Anticoagulation Allergies peach Allergy (Severe, Verified 06/26/24 15:39) Angioedema No Known Drug Allergies Allergy (Unknown, Verified 06/26/24 15:39) Unknown Medication List - Last Reconciled 06/26/24 by Tricia Stock RN ascorbic acid (vitamin C) 500 mg PO BID aspirin (Adult Aspirin Regimen) 81 mg PO DAILY 90 days cetirizine 10 mg PO DAILY cholecalciferol (vitamin D3) 50 mcg PO DAILY fluoride (sodium) 1.1% appl PO hydrocortisone 2.5% (Proctosol HC) 1 appl [place] BID-QID PRN multivitamin (One Daily Multivitamin tablet) 1 tab PO DAILY omeprazole 20 mg PO DAILY PRN sumatriptan succinate 50 mg PO tolterodine ER 4 mg PO DAILY valacyclovir 500 mg PO BID warfarin See Protocol orally 6mg daily; Nursing Note NO CP,SOB,DIET/MED CHANGES,FALLS OR SX OF BLEEDING. CONTINUE 6MGM DAILY AND FOLLOW-UP IN 4 WEEKS. GOOD UNDERSTANDING OF DOSING INSTR. Anti-Coag Initial Assessment Social Hx Patient Tobacco Use Status: Never used Tobacco alcohol intake: never Alcohol intake frequency: does not drink Coding Level of Care Code Est Patient Level 1 Diagnoses Current use of anticoagulant therapy Z79.01 Assessment & Plan Assessment & Plan (1) Current use of anticoagulant therapy: Comment: Continue Coumadin. 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
== END 2024-06-26 15:57 | disposition home or self-care (01) ==
LOC: HO.ACS 15:38
PROVIDERS: PCP Family Medicine; Visit Provider Internal Medicine
DX: Z79.01 Long term (current) use of anticoagulants (principal)

== ENCOUNTER → 2024-06-26 15:38 | Outpatient (BNVA) | payer OTHER, SELFPAY | PROVIDERS: PCP Family Medicine; Visit Provider Internal Medicine | DX: Z95.2 Presence of prosthetic heart valve (principal); Z79.01 Long term (current) use of anticoagulants; Z51.81 Encounter for therapeutic drug level monitoring | CPT/HCPCS: 85610; 99211 ==

== ENCOUNTER 2024-07-04 15:14 | Outpatient (AMB) | payer OTHER, SELFPAY ==
--- NOTE | 2024-07-04 15:19 | MHC.OFFVIS ---
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 Patient reports her pain has been present for 3 years, No previous tx. She was recently seen with Dr. Mc and a lumbar spine was ordered and obtained. Her pain is located in her lower back and posterior aspect of hip that travels to the lateral side of hip. Her pain is constant and increases with bending or twisting/turning. Bean Picker Machine Operator Required: Yes Bean Picker Machine Operator Services: Bean Picker Machine Operator Present Bean Picker Machine Operator Name: Thomas Morales ID#[id number] Allergies peach Allergy (Severe, Verified 07/04/24 15:21) Angioedema No Known Drug Allergies Allergy (Unknown, Verified 07/04/24 15:21) Unknown Medication List - Last Reconciled 07/04/24 by Silke Navarro PA-C ascorbic acid (vitamin C) 500 mg PO BID aspirin (Adult Aspirin Regimen) 81 mg PO DAILY 90 days cetirizine 10 mg PO DAILY cholecalciferol (vitamin D3) 50 mcg PO DAILY fluoride (sodium) 1.1% appl PO hydrocortisone 2.5% (Proctosol HC) 1 appl [place] BID-QID PRN multivitamin (One Daily Multivitamin tablet) 1 tab PO DAILY omeprazole 20 mg PO DAILY PRN sumatriptan succinate 50 mg PO tolterodine ER 4 mg PO DAILY warfarin See Protocol orally 6mg daily; HPI HPI 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 She denies injury. She does complain of lateral-sided hip pain. She also complains of low back pain. She is being treated by our sed middle school teacher for low back pain and was sent for an MRI pending results. She denies groin pain. 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 No pain with ROM of the hip. Pain along the greater trochanter. No pain with hip flexion or abduction.There is tenderness along the si joint, Negative SLR. NVI. Results Reviewed Results Reviewed: X-rays of the right hip obtained on 11/02 are negative for any acute fractures or dislocations. Well-preserved joint space. Assessment & Plan Assessment & Plan (1) Right hip tendonitis: Code(s): M76.891 - Other specified enthesopathies of right lower limb, excluding foot Category: Medical Plan: Images were reviewed with Dr. Venegas. He was in agreement that there does not appear to be significant degenerative arthritis of the right hip. Given these findings, I recommend a course of physical therapy to work on glute strengthening core strengthening and lumbar stabilization. She is pending MRI results with the sed middle school teacher for her low back. If there is any questions or concerns she will contact our office otherwise follow up as needed. Orders: Orders PT Evaluation and Treatment Today M76.891 - Other specified enthesopathies of right lower limb, excluding foot Coding Level of Care Code Est Pt Level 3 (23919) Complex EM visit Add On G2211 Diagnoses Right hip tendonitis M76.891
[2024-07-04 15:20] VITALS: BMI 28.5
== END 2024-07-04 15:44 | disposition home or self-care (01) ==
PROVIDERS: PCP Family Medicine; Visit Provider Physician Assistant
DX: M76.891 Other specified enthesopathies of right lower limb, excluding foot (principal)
CPT/HCPCS: 99213; G2211

== ENCOUNTER → 2024-07-04 15:14 | Outpatient (BNVA) | payer OTHER, SELFPAY | PROVIDERS: PCP Family Medicine; Visit Provider Physician Assistant | DX: M76.891 Other specified enthesopathies of right lower limb, excluding foot (principal) | CPT/HCPCS: 99212 ==

== ENCOUNTER 2024-07-31 14:31 | Outpatient (AMB) | payer OTHER, SELFPAY ==
--- NOTE | 2024-07-31 14:44 | MHC.OFFVISCO ---
Intake Intake Visit Reasons: Anticoagulation Allergies peach Allergy (Severe, Verified 07/31/24 14:39) Angioedema No Known Drug Allergies Allergy (Unknown, Verified 07/31/24 14:39) Unknown Medication List - Last Reconciled 07/31/24 by Kayley Toth RN ascorbic acid (vitamin C) 500 mg PO BID aspirin (Adult Aspirin Regimen) 81 mg PO DAILY 90 days cetirizine 10 mg PO DAILY cholecalciferol (vitamin D3) 50 mcg PO DAILY fluoride (sodium) 1.1% appl PO hydrocortisone 2.5% (Proctosol HC) 1 appl [place] BID-QID PRN multivitamin (One Daily Multivitamin tablet) 1 tab PO DAILY omeprazole 20 mg PO DAILY PRN sumatriptan succinate 50 mg PO tolterodine ER 4 mg PO DAILY warfarin See Protocol orally 6mg daily; Nursing Note INR: 3.0- in therapeutic range of 2-3 Medications and supplements reviewed- no changes No changes in health, diet, medications, or supplements, Denies any signs and symptoms of bleeding or bruising or clotting. Bleeding, bruising, clotting discussed Nutritional guidance given - will eat a green today Dose: 6mg x 7 F/U INR: 4 weeks Patient verbalizes understanding of instructions given Anti-Coag Initial Assessment Social Hx Patient Tobacco Use Status: Never used Tobacco alcohol intake: never Alcohol intake frequency: does not drink Coding Level of Care Code Est Patient Level 1 Diagnoses Current use of anticoagulant therapy Z79.01 Results AMB INR Fingerstick AMB INR Fingerstick 3.0 Last Edit by Kayley Toth RN on 07/31/24 14:45 interface delay Assessment & Plan Assessment & Plan (1) Current use of anticoagulant therapy: Comment: Continue Coumadin. 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
[2024-07-31 14:45] LABS: Prothrombin Time Whole Bld POC 35.5 sec (11.1-13.5)
== END 2024-07-31 14:49 | disposition home or self-care (01) ==
LOC: HO.ACS 14:31
PROVIDERS: PCP Family Medicine; Visit Provider Internal Medicine
DX: Z79.01 Long term (current) use of anticoagulants (principal)

== ENCOUNTER → 2024-07-31 14:31 | Outpatient (BNVA) | payer OTHER, SELFPAY | PROVIDERS: PCP Family Medicine; Visit Provider Internal Medicine | DX: Z95.2 Presence of prosthetic heart valve (principal); Z79.01 Long term (current) use of anticoagulants; Z51.81 Encounter for therapeutic drug level monitoring | CPT/HCPCS: 85610; 99211 ==

== ENCOUNTER → 2024-08-28 14:41 | Outpatient (BNVA) | payer OTHER, SELFPAY | PROVIDERS: PCP Family Medicine; Visit Provider Internal Medicine | DX: Z95.2 Presence of prosthetic heart valve (principal); Z79.01 Long term (current) use of anticoagulants; Z51.81 Encounter for therapeutic drug level monitoring | CPT/HCPCS: 85610; 99211 ==

== ENCOUNTER 2024-09-26 15:59 | Outpatient (AMB) | payer OTHER, SELFPAY ==
[2024-09-26 16:05] LABS: Prothrombin Time Whole Bld POC 44.2 sec (11.1-13.5); ~PT, ~INR - Anti Coag Clinic 3.7 (0.9-1.1)
--- NOTE | 2024-09-26 16:08 | MHC.OFFVISCO ---
Intake Intake Visit Reasons: Anticoagulation Allergies peach Allergy (Severe, Verified 09/26/24 16:00) Angioedema No Known Drug Allergies Allergy (Unknown, Verified 09/26/24 16:00) Unknown Medication List - Last Reconciled 09/26/24 by Silvia Paredes, RN ascorbic acid (vitamin C) 500 mg PO BID aspirin (Adult Aspirin Regimen) 81 mg PO DAILY 90 days cetirizine 10 mg PO DAILY cholecalciferol (vitamin D3) 50 mcg PO DAILY fluoride (sodium) 1.1% appl PO hydrocortisone 2.5% (Proctosol HC) 1 appl [place] BID-QID PRN multivitamin (One Daily Multivitamin tablet) 1 tab PO DAILY omeprazole 20 mg PO DAILY PRN sumatriptan succinate 50 mg PO tolterodine ER 4 mg PO DAILY warfarin See Protocol orally 6mg daily; Nursing Note INR: 3.7?out of therapeutic range of 2-3 Medications and supplements reviewed Patient status: well Medications or supplements: no changes Diet: usual diet for pt Denies any signs and symptoms of bleeding or clotting or unusual bruising Bleeding, bruising, clotting discussed Nutritional guidance given: to have a serving of greens today Dose: decrease today's dose to 3mg (6mg) then 6mg daily F/U INR Date : 2 weeks Patient verbalizing understanding of instructions given. Anti-Coag Initial Assessment Social Hx Patient Tobacco Use Status: Never used Tobacco alcohol intake: never Alcohol intake frequency: does not drink Coding Level of Care Code Est Patient Level 1 Diagnoses Current use of anticoagulant therapy Z79.01 Assessment & Plan Assessment & Plan (1) Current use of anticoagulant therapy: Comment: Continue Coumadin. 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
--- OUTSIDE RECORDS SUMMARY | 2024-09-26 19:17 | XMS_ITS | Clinical Summary ---
Author Organization [facility] Address [address] [place] [address] Care Team Providers Care Special Education Kindergarten Teacher Name Role Phone Manfred Clara Primary Care Provider [phone] Allergies No known active allergies Medications aspirin 81 mg EC tablet Take 81 mg by mouth daily. 05/15/2020 Active cetirizine (ZyrTEC) 10 mg tablet Take 10 mg by mouth daily. 07/27/2020 Active ascorbic acid 500 mg tablet Take 500 mg by mouth 2 times a day. 07/27/2020 Active cholecalciferol (VITAMIN D3) 2,000 unit capsule Take 1 capsule by mouth daily. 07/27/2020 Active ferrous sulfate 325 mg (65 mg iron) tablet Take 1 tablet by mouth 2 times a day. 07/27/2020 Active montelukast (SINGULAIR) 10 mg tablet Take 10 mg by mouth every evening. 07/27/2020 Active ketotifen (ZADITOR) 0.025 % ophthalmic solution PLACE 1 DROP INTO THE AFFECTED EYE(S) TWICE DAILY DIRECTED 12/15/2020 Active DOK 100 mg capsule Take 100 mg by mouth 2 times a day. 07/21/2020 Active medroxyPROGESTE Jeremiah (PROVERA) 10 mg tablet TAKE 1 TABLET BY MOUTH EVERY DAY FOR HEAVY BLEEDING 11/18/2020 Active multivitamin tablet TAKE 1 TABLET BY MOUTH EVERY DAY WITH FOOD 07/27/2020 Active naproxen (NAPROSYN) 500 mg tablet Take 500 mg by mouth 2 times a day with meals. 05/15/2020 Active warfarin (COUMADIN) 2 mg tablet TAKE 1 TO 3 TABLETS BY MOUTH EVERY DAY DIRECTED BY COUMADIN CLINIC 12/11/2020 Active valACYclovir (VALTREX) 500 mg tablet TAKE 1 TABLET BY MOUTH TWICE DAILY FOR 37 DAYS 07/27/2020 Active medroxyPROGESTE Jeremiah (DEPO-PROVERA) 150 mg/mL injection Inject 150 mg into the shoulder, thigh, or buttocks muscle as directed every 3 months. Active Family History Medical History Relation Name Comments Breast cancer Neg Hx Ovarian cancer Neg Hx Uterine cancer Neg Hx Social History Tobacco Use Types Packs/Day Years Used Date Smoking Tobacco: Never Smokeless Tobacco: Never Alcohol Use Standard Drinks/Week Comments Never 0 (1 standard drink = 0.6 oz pur e alcohol) Comments No Sex and Gender Information Value Date Recorded Sex Assigned at Not on file Legal Sex Female 9:33 AM EST Gender Identity Not on file Sexual Orientation Not on file Last Filed Vital Signs Vital Sign Reading Time Taken Comments Blood Pressure 102/78 12/17/2020 11:11 AM EDT Pulse - - Temperature - - Respiratory Rate - - Oxygen Saturation - - Inhaled Oxygen Concentration - - Weight 72.1 kg (159 lb) 12/17/2020 11:11 AM EDT Height - - Body Mass Index - - Plan of Treatment Health Maintenance Due Date Last Done Comments Cologuard 1977 Colon Cancer Screening 1977 Colonoscopy 1977 FOBT / Fit Test 1977 HIV Screening 1977 HPV and Pap Smear 1977 Sigmoidoscopy 1977 Hepatitis B Vaccines (1 of 3 - 19+ 3-dose series) 02/19/1996 DTaP,Tdap,and Td Vaccines (1 - Tdap) 1999 Cervical Cancer Screening 12/18/2023 Pap Smear 12/18/2023 12/17/2020, 12/17/2020 COVID-19 Vaccine (3 - 2023-2 5 season) 2024 11/06/2020, 10/09/2020 Influenza Vaccine (#1) 2024 Alcohol/Substance Use Screening 07/24/2024 RSV Vaccine (60+ years old a nd patients) (1 - 1-dose 75+ series) 02/19/2052 Pneumococcal Vaccine: Pediatric (0-5 Years) and At-Risk Patients (6-50 Years) Aged Out No longer eligible based on patient's age to complete this topic Procedures * Due to [place] state law, this organization might not be sharing negative HIV tests. Procedure Name Priority Date/Time Associated Diagnosis Comments PAP Routine 12/17/2020 2:37 PM EDT Hematometra from Last 3 Months or Most Recently Relevant to Health Maintenance Insurance [facility]/FREE [place] [address] Care Teams Special Education Kindergarten Teacher Relationship Specialty Start Date End Date Clara Shearer [address] [place] [address] PCP - General Family Medicine 05/26/20
--- OUTSIDE RECORDS SUMMARY | 2024-09-26 19:17 | XMS_ITS | Encounter Summary ---
Author Organization [employer] Address [address] [place] [address] Care Team Providers Care Foam Rubber Curer Name Role Phone Clara Shearer MD Primary Care Provider [phone] Encounter Details Date Type Department Care Team ([facility] st Contact Info) Description 01/22/2024 Orders Only [facility] [address] [place], [place] [phone] Clara Shearer MD [address] [place], [place] [phone] History of mechanical aortic valve replacement Social History Tobacco Use Types Packs/Day Years Used Date Smoking Tobacco: Never Passive Smoke Exposure: Never Smokeless Tobacco: Never Alcohol Use Standard Drinks/Week Comments Never 0 (1 standard drink = 0.6 oz pur e alcohol) Depression Answer Date Recorded Patient Health Questionnaire-9 Score 0 10/17/2023 Patient Health Questionnaire-9 Score 0 10/17/2023 Last PHQ-9: Questionnaire Data Not on file 0 10/17/2023 Housing Stability Answer Date Recorded What is your housing situation today? I have naye martinez 05/09/[address] you li ve. Do you have problems with any of the following? None of the above 05/09/2023 Food Insecurity Answer Date Recorded Within the past 12 months, y ou worried that your food would run out before you got money to buy more: Never True 05/09/2023 Within the past 12 months,th e food you bought just didn't last and you didn't have enough money to get more: Never True Transportation Answer Date Recorded In the past 12 months, has l ack of transportation kept you from medical appts, meetings, work or from getting things needed for daily living? No 05/09/2023 Utilities Answer Date Recorded In the past 12 months, has t he electric, gas, oil or water company threatened to shut off services in your home? No 05/09/2023 Depression Answer Date Recorded Patient Health Questionnaire-2 Score 0 10/17/2023 Comments Unknown Sex and Gender Information Value Date Recorded Sex Assigned at Female 05/23/2022 10:21 AM EDT Legal Sex Female 10:21 AM EDT Gender Identity Female 05/23/2022 10:21 AM EDT Sexual Orientation Straight 05/23/2022 10 :21 AM EDT documented as of this encounter Plan of Treatment Upcoming Encounters Date Type Department Care Team (Late st Contact Info) Description 10/07/2024 11:15 AM EDT Office Visit [facility] [address] [place] [address] Clara Shearer MD [address] [place] [address] 10/31/2024 2:00 PM EDT Office Visit [facility]ULT D[facility] [address] [place] [address] Olga, Katt [address] [place] [address] documented as of this encounter Visit Diagnoses Diagnosis History of mechanical aortic valve replacement documented in this encounter Additional Health Concerns Assessment Noted Time PHQ-9 Depression Total Score: 0 10/17/19 24 3:45 PM EDT documented as of this encounter Care Teams Foam Rubber Curer Relationship Specialty Start Date End Date Clara Shearer MD [address] [place] [address] PCP - General Family Medicine 07/24/18 documented as of this encounter
--- OUTSIDE RECORDS SUMMARY | 2024-09-26 19:17 | XMS_ITS | Encounter Summary ---
Author Organization [facility] Address [address] [facility] [address] [place] [address] Care Team Providers Care Laserist Name Role Phone Clara Shearer MD Primary Care Provider [phone] Encounter Details Date Type Department Care Team (Latest Contact Info) Description 09/26/2019 Abstract [facility] CONVERSIONS Dental, Provider, DDS Social History Tobacco Use Types Packs/Day Years Used Date Smoking Tobacco: Never Assessed Comments Unknown Sex and Gender Information Value [...] Description 10/07/2024 11:15 AM EDT Office Visit [facility] MEDICINE [address] [place] [address] Clara Shearer MD [address] [place] [address] 10/31/2024 2:00 PM EDT Office Visit [facility] ADULT DENTAL [address] [place] [address] Jignesh Espinozaaris [address] [place] [address] documented as of this encounter Visit Diagnoses Not on filedocumented in this encounter Care Teams Laserist Relationship Specialty Start Date End Date Clara Shearer MD [address] [place] [address] PCP - General Family Medicine 07/24/18 documented as of this encounter
--- OUTSIDE RECORDS SUMMARY | 2024-09-26 19:17 | XMS_ITS | Encounter Summary ---
Author Organization [employer] Address [address] [facility] 7t [place] [address] Care Team Providers Care Block Cutter Name Role Phone Clara Shearer MD Primary Care Provider [phone] Reason for Visit * Reason Onset Date Comments Nurse Triage 06/05/2023 Encounter Details Date Type Department Care Team ([facility] st Contact Info) Description 06/05/2023 Telephone [facility] [address] [place], [place] [phone] Clara Shearer MD [address] [place], [place] [phone] Nurse Triage Social History Tobacco Use Types Packs/Day Years Used Date Smoking Tobacco: Never Passive Smoke Exposure: Never Smokeless Tobacco: Never Alcohol Use Standard Drinks/Week Comments Never 0 (1 standard drink = 0.6 oz pur e alcohol) Depression Answer Date Recorded Patient Health Questionnaire-9 Score 5 03/07/2023 Housing Stability Answer Date Recorded What is [...] Date Recorded Patient Health Questionnaire-2 Score 0 03/07/2023 Comments Unknown Sex and Gender Information Value Date Recorded Sex Assigned at Female 05/23/2022 10:21 AM EDT Legal Sex Female 10:21 AM EDT Gender Identity Female 05/23/2022 10:21 AM EDT Sexual Orientation Straight 05/23/2022 10 :21 AM EDT documented as of this encounter Miscellaneous Notes * Telephone Encounter - Daniela Otoole RN - 06/05/2023 4:47 PM EST Triage call with [employer] [place] Custodian [place] [id number] Pt reports headaches which have started 2 years ago. Headaches mainly effect left side of head. Dizziness, nausea and eye pain are symptoms which come with the headache. Pt reports has been dx with migraines but, this headache is not like a migraine per Pt report. Pt has taken tylenol, lets hair down rather than in a tight pony tail and rests. Head ache will go for one -two days and then comes right back. Pt reports has headache at time of call as well. Pt denies fever, nasal drainage, sinus congestion. Pt is advised to apply ice to forehead when resting and Pt agrees to try this. Pt will come to [facility] tomorrow 06/06/23 to be seen by provider. Pt does have apt with PCP 07/19/23 for follow up for H/A. Protocol Used: Headache (Adult) Care Advice Discussed: * Reassurance and Education - Migraine Headache * Reassurance and Education - Muscle Tension Headache * Pain Medicines * Pain Medicines - Extra Notes and Warnings * Pain Medicine for Migraine * Rest for Headache * Cold Pack for Headache * Stretching * Reasons To Call Back - Severe headache persists over 2 hours after pain medicine - Headache lasts over 24 hours despite using a pain medicine - You become worse * Telephone Encounter - Santi Javier - 06/05/2023 4:02 PM EST Symptom: Headache Outcome: Transfer to a nurse or provider NOW! Reason: Sudden worst headache of life now The caller accepted this outcome Headache only occurs on left side only and Nausea as well Please contact pt at [phone] [place] Speaker. documented in this encounter Plan of Treatment Upcoming Encounters Date Type Department Care Team (Late st Contact Info) Description 10/07/2024 11:15 AM EDT Office Visit [facility] [address] [place] [address] Clara Shearer MD [address] [place] [address] 10/31/2024 2:00 PM EDT Office Visit [facility] ADULT DENTAL [address] [place] [address] Katt Espinoza [address] [place] [address] documented as of this encounter Visit Diagnoses Not on filedocumented in this encounter Additional Health Concerns Assessment Noted Time PHQ-9 Depression Total Score: 5 03/07/20 23 3:27 PM EDT documented as of this encounter Care Teams Block Cutter Relationship Specialty Start Date End Date Clara Shearer MD [address] [place] [address] PCP - General Family Medicine 07/24/18 documented as of this encounter
--- OUTSIDE RECORDS SUMMARY | 2024-09-26 19:17 | XMS_ITS | Referral Summary ---
Author Organization [facility] Address [address] [place] [address] Care Team Providers Care Supervisor Dehydrogenation Name Role Phone Manfred Clara Primary Care Provider [phone] Allergies No known active allergies Medications aspirin [...] muscle as directed every 3 months. Active Social History Tobacco Use Types Packs/Day Years [...] Mass Index - - Plan of Treatment Not on file Procedures * Due to [place] state law, this organization might not be sharing negative HIV tests. Procedure Name Priority Date/Time Associated Diagnosis Comments PAP Routine 12/17/2020 2:37 PM EDT Hematometra from Last 3 Months or Most Recently Relevant to Health Maintenance Insurance [facility] HS/[place] [address] [place] [address] Care Teams Supervisor Dehydrogenation Relationship Specialty Start Date End Date Clara Shearer [address] [place] [address] PCP - General Family Medicine 05/26/20
--- OUTSIDE RECORDS SUMMARY | 2024-09-26 19:17 | XMS_ITS | Encounter Summary ---
Author Organization [facility] Address [address] [facility] 7t [place] [address] Care Team Providers Care Mix Technician Name Role Phone Clara Shearer MD Primary Care Provider [phone] Encounter Details Date Type Department Care Team (Late st Contact Info) Description 07/20/2022 Abstract [facility] MEDICINE [address] [place] [phone] Clara Shearer MD [address] [place] [address] Social History Tobacco Use Types Packs/Day Years [...] Description 10/07/2024 11:15 AM EDT Office Visit [facility] MEDICINE [address] [place] [phone] Clara Shearer MD [address] [place] [address] 10/31/2024 2:00 PM EDT Office Visit [facility] ADULT DENTAL [address] [place] [phone] Katt Espinoza [address] [place] [address] documented as of this encounter Visit Diagnoses Not on filedocumented in this encounter Care Teams Mix Technician Relationship Specialty Start Date End Date Clara Shearer MD [address] [place] [address] [place] [address] PCP - General Family Medicine 07/24/18 documented as of this encounter
--- OUTSIDE RECORDS SUMMARY | 2024-09-26 19:17 | XMS_ITS | Encounter Summary ---
Author Organization [employer] Address [address] [facility] 7[address] [place] [address] Care Team Providers Care Figure Model Name Role Phone Clara Shearer MD Primary Care Provider [phone] Encounter Details Date Type Department Care Team (Late st Contact Info) Description 08/28/2024 Orders Only [facility] EXTERNAL DATA DEPARTMENT Provider, Generic External Data Social History Tobacco Use Types Packs/Day Years Used Date Smoking Tobacco: Never Passive Smoke Exposure: Never Smokeless Tobacco: Never Alcohol Use Standard Drinks/Week Comments Never 0 (1 standard drink = 0.6 oz pur e alcohol) Alcohol Answer Date Recorded Frequency of Alcohol Consumption Not on file 05/30/2024 Average Number of Drinks Not on file 024 Frequency of Binge Drinking Not on file 01/2024 Score 0 05/30/2024 Depression Answer Date Recorded Patient Health Questionnaire-9 Score 0 10/17/2023 Patient Health Questionnaire-9 Score 0 10/17/2023 Last PHQ-9: Questionnaire Data Not on file 0 10/17/2023 Housing Stability Answer Date Recorded What is your housing situation today? I have naye martinez 05/22/[address] you li ve. Do you have problems with any of the following? None of the above 05/22/2024 Food Insecurity Answer Date Recorded Within the past 12 months, y ou worried that your food would run out before you got money to buy more: Never True 05/22/2024 Within the past 12 months,th e food you bought just didn't last and you didn't have enough money to get more: Never True Transportation Answer Date Recorded In the past 12 months, has l ack of transportation kept you from medical appts, meetings, work or from getting things needed for daily living? No 05/22/2024 Utilities Answer Date Recorded In the past 12 months, has t he electric, gas, oil or water company threatened to shut off services in your home? No 05/22/2024 Depression Answer Date Recorded Patient Health Questionnaire-2 Score 0 10/17/2023 Internet Access Answer Date Recorded Internet Access Q1 Yes 05/22/2024 Internet Access Q2 Not on file 05/22/2024 Comments No Sex and Gender Information Value [...] Description 10/07/2024 11:15 AM EDT Office Visit [facility] [address] [place] [address] Clara Shearer MD [address] [place] [address] 10/31/2024 2:00 PM EDT Office Visit [facility] ADULT D[facility] [address] [place] [address] Olga, Katt [address] [place] [address] documented as of this encounter Procedures Procedure Name Priority Date/Time Associated Diagnosis Comments PROTHROMBIN TIME WHOLE BLD POC Routine 08/28/2024 3:03 PM EST ~PT, ~INR - ANTI COAG CLINIC Routine 08/28/2024 3:03 PM EST documented in this encounter Results * (ABNORMAL) PROTHROMBIN TIME WHOLE BLD POC (08/28/2024 3:03 PM EST) Protime 25.3(H) 11.1 - 13.5 sec [facility] 08/28/2024 3:03 PM EST 08/28/2024 3:05 PM EST us Generic External Data Provider LAB BLOOD ORDERAB LES Final Result Performing Organization Address [facility] Co de Phone Number [facility] [address] [place] [phone] * (ABNORMAL) ~PT, ~INR - ANTI COAG CLINIC (08/28/2024 3:03 PM EST) Prothrombin Time INR 2.1(H) 0.9 - 1.1 [facility] Comment:METER #: [id number] TERNATIONAL NORMALIZED RATIO (INR) REFERENCE RANGES Reference RangeFor patients not on anticoagulant therapy: 0.9 - 1.1INR ranges for oral anticoagulanttherapy:For prevention and treatment of venous thrombosis and pulmonary embolism: 2.0 - 3.0For acute myocardial infarction with aspirin therapy: 2.0 - 3.0For acute myocardial infarction without aspirin therapy: 3.0 - 4.0For patients with mechanical prosthetic heart valves: 2.5 - 3.5 08/28/2024 3:03 PM EST 08/28/2024 3:05 PM EST us Generic External Data Provider LAB BLOOD ORDERAB LES Final Result Performing Organization Address [facility] Co de Phone Number [facility] [address] [place] [phone] documented in this encounter Visit Diagnoses Not on filedocumented in this encounter Additional Health Concerns Assessment Noted Time PHQ-9 Depression Total Score: 0 10/17/19 24 3:45 PM EDT documented as of this encounter Care Teams Figure Model Relationship Specialty Start Date End Date Clara Shearer MD [address] [place] [id number] PCP - General Family Medicine 07/24/18 documented as of this encounter
--- OUTSIDE RECORDS SUMMARY | 2024-09-26 19:17 | XMS_ITS | Encounter Summary ---
Author Organization [employer] Address [address] [place] [address] 7 [place] [address] Care Team Providers Care Computer Help Desk Specialist Name Role Phone Clara Shearer MD Primary Care Provider [phone] Reason for Referral * Imaging (Routine) - Closed Specialty Diagnoses / Procedures Referred By Ron brewer Referred To Contact Radiology Diagnoses Metabolic dysfunction-associated steatotic liver disease (MASLD) Procedures US Abdomen Comp w elastography Clara Shearer MD [address] [place] [address] Phone: tel: fax: [address] Phone: tel: fax: Referral ID Status Reason Start Date Expiration Date Visits Re quested Visits Authorized [id number] Closed 11/17/2023 11/16/2024 1 1 Encounter Details Date Type Department Care Team (Late st Contact Info) Description 11/17/2023 Orders Only [facility] MEDICINE [address] [place], [place] [phone] Clara Shearer MD [address] [place], [place] [phone] Metabolic dysfunction-associated steatotic liver disease (MASLD) (Primary Dx) Social History Tobacco Use Types Packs/Day Years [...] [facility] [address] [place] [address] Clara Shearer MD [address] [place] [address] 10/31/2024 2:00 PM EDT Office Visit [facility] ADULT DENTAL [address] [place] [address] Katt Espinoza [address] [place] [address] documented as of this encounter Procedures Procedure Name Priority Date/Time Associated Diagnosis Comments US ABDOMEN COMPLETE WITH ELASTOGRAPHY Routine 12/05/2023 9:26 AM EDT Metabolic dysfunction-associa ebony steatotic liver disease (MASLD) documented in this encounter Results * US Abdomen Comp w elastography (12/05/2023 9:26 AM EDT) Anatomical Region Laterality Modality Abdomen Ultrasound 12/05/2023 9:26 AM EDT Narrative 12/12/2023 9:41 AM EDT ? [facility] ?[address] ?[place] [address] ? Ultrasound Report ? Signed ? Patient: LindaphillipMarktwin ?MR#: [id number] ?? [id number] ? : 1975 ?Acct:[id number] ? Age/Sex: 48 / F ?ADM Date: 12/05/23 ? Loc: HO.US ? Attending Dr: Clara Shearer MD ? Ordering Physician: Clara Shearer MD ?? Date of Service: 12/05/23 ?? Procedure(s): US abdomen comp w elastography ?? Accession Number(s): [id number] ? cc: Clara Shearer MD ? EXAMINATION: ?? US COMPLETE ABDOMEN WITH LIVER ELASTOGRAPHY ? CLINICAL INFORMATION: ?? Hepatic steatosis. ? COMPARISON: ?? None available. ? TECHNIQUE: ?? Real-time imaging of the abdominal viscera. Noninvasive ultrasound ?? liver fibrosis assessment is performed using Stephanie ElastPQ point ?? quantification shear wave elastography (2D-SWE) with a C5-2 MHz ?? transducer. ??Multiple elastography samples are obtained. ? FINDINGS: ? PANCREAS: Most of the pancreas is obscured by bowel gas and cannot be ?? evaluated. ? ABDOMINAL AORTA: There is some ectasia of the aorta measuring a maximum ?? of 2.7 cm in maximal transverse dimension. Surveillance ultrasound ?? recommended every 5 years. ? INFERIOR VENA CAVA: Visualized portions are normal. ? LIVER: The liver is normal in size with heterogeneity. No focal lesion ?? or intrahepatic biliary duct dilatation. ? The right lobe measures 13.7 cm in length. The left lobe measures 8.0 ?? cm in length. ? Portal flow is hepatopedal. ? Shear wave liver elastography median stiffness is 0.94 m/s (reference: ?? normal median stiffness is 1.3 m/s or less). ? IQR/median stiffness to assess sampling precision is 0.15 (reference: ?? good quality data set is IQR/median stiffness of 0.15 or less). ? GALLBLADDER: Normal. The gallbladder is physiologically distended ?? without evidence of stones, sludge, polyps, wall thickening or ?? pericholecystic fluid. ? COMMON BILE DUCT: Normal in caliber measuring 0.3 cm in diameter. ? RIGHT KIDNEY: Normal. No hydronephrosis. No renal calculi or focal ?? parenchymal lesions. The kidney measures 10.4 cm in maximum dimension. ? LEFT KIDNEY: Normal The kidney measures 12.2 cm in maximum dimension. ? SPLEEN: Normal. The spleen measures 9.5 cm in maximum dimension. ? FREE FLUID: None. ? US/US abdomen comp w elastography ?? IMPRESSION: ?? 1. Heterogeneous normal sized liver without evidence to suggest hepatic ?? steatosis. ? 2. Liver elastography: ??Measurements are consistent with a high ?? probability of normal liver stiffness. ? 3. Ptotic dilated infrarenal aorta measuring 2.7 cm. Follow up is ?? recommended with ultrasound every 5 years. ? REFERENCE: ?? Society of Radiologists in Ultrasound Liver Stiffness Thresholds ?? (2019): ? LIVER STIFFNESS THRESHOLDS: ?? *Liver Stiffness equal or less than 1.3 m/s: ??High probability of being ?? normal. ?? *Liver Stiffness ??less than 1.7 m/s: ??In the absence of other known ?? clinical signs, rules out compensated advanced chronic liver disease. ?? *Liver Stiffness 1.7-2.1 m/s: ??Suggestive of compensated advanced ?? chronic liver disease but need further test for confirmation. ?? *Liver Stiffness over 2.1 m/s: ??Rules in compensated advanced chronic ?? liver disease. ?? *Liver Stiffness over 2.4 m/s: ??Suggestive of clinically significant ?? portal hypertension. ? QUALITY OF DATA SET: ?? *IQR/Median value equal or less than 0.15 implies a quality data set. ?? *IQR/Median value over 0.15 implies a poor quality data set. ? SIGNIFICANT CHANGE FROM PRIOR EXAM: ?? Significant change if liver stiffness measurement is 10% or greater ?? from prior exam. ? OTHER CONSIDERATIONS: ?? The stage of liver fibrosis may be overestimated in the setting of ?? acute hepatitis, liver inflammation, elevated liver function tests, ?? hepatic vascular congestion, obstructive cholestasis, non-fasting ?? state, and infiltrative diseases such as amyloidosis and lymphoma. In ?? some patients with NAFLD, the liver stiffness thresholds for ?? compensated advanced chronic liver disease may be lower. In causes ?? other than viral hepatitis and NAFLD, liver stiffness thresholds are ?? not well established. ? Dictated By: ?Yaniv Ledezma MD ? Signed By: ?<Electronically signed by Yaniv Ledezma MD in OV> ? 12/12/23 0937 ? DD/ 0926 ? TD/TT: ? Funeral Home Attendant: SS ? Procedure Note Ailin, Image - 12/12/2023 [place] [address] Ultrasound Report Signed Patient: Yoel Martell#: [id number] : 1975Acct:[id number] Age/Sex: 48 / FADM Date: 12/05/23 Loc: HO.US Attending Dr: Clara Shearer MD Ordering Physician: Clara Shearer MD Date of Service: 12/05/23 Procedure(s): US abdomen comp w elastography Accession Number(s): [id number] cc: Clara Shearer MD EXAMINATION: US COMPLETE ABDOMEN WITH LIVER ELASTOGRAPHY CLINICAL INFORMATION: Hepatic steatosis. COMPARISON: None available. TECHNIQUE: Real-time imaging of the abdominal viscera. Noninvasive ultrasound liver fibrosis assessment is performed using Stephanie ElastPQ point quantification shear wave elastography (2D-SWE) with a C5-2 MHz transducer. Multiple elastography samples are obtained. FINDINGS: PANCREAS: Most of the pancreas is obscured by bowel gas and cannot be evaluated. ABDOMINAL AORTA: There is some ectasia of the aorta measuring a maximum of 2.7 cm in maximal transverse dimension. Surveillance ultrasound recommended every 5 years. INFERIOR VENA CAVA: Visualized portions are normal. LIVER: The liver is normal in size with heterogeneity. No focal lesion or intrahepatic biliary duct dilatation. The right lobe measures 13.7 cm in length. The left lobe measures 8.0 cm in length. Portal flow is hepatopedal. Shear wave liver elastography median stiffness is 0.94 m/s (reference: normal median stiffness is 1.3 m/s or less). IQR/median stiffness to assess sampling precision is 0.15 (reference: good quality data set is IQR/median stiffness of 0.15 or less). GALLBLADDER: Normal. The gallbladder is physiologically distended without evidence of stones, sludge, polyps, wall thickening or pericholecystic fluid. COMMON BILE DUCT: Normal in caliber measuring 0.3 cm in diameter. RIGHT KIDNEY: Normal. No hydronephrosis. No renal calculi or focal parenchymal lesions. The kidney measures 10.4 cm in maximum dimension. LEFT KIDNEY: Normal The kidney measures 12.2 cm in maximum dimension. SPLEEN: Normal. The spleen measures 9.5 cm in maximum dimension. FREE FLUID: None. US/US abdomen comp w elastography IMPRESSION: 1. Heterogeneous normal sized liver without evidence to suggest hepatic steatosis. 2. Liver elastography: Measurements are consistent with a high probability of normal liver stiffness. 3. Ptotic dilated infrarenal aorta measuring 2.7 cm. Follow up is recommended with ultrasound every 5 years. REFERENCE: Society of Radiologists in Ultrasound Liver Stiffness Thresholds (2020): LIVER STIFFNESS THRESHOLDS: *Liver Stiffness equal or less than 1.3 m/s: High probability of being normal. *Liver Stiffness less than 1.7 m/s: In the absence of other known clinical signs, rules out compensated advanced chronic liver disease. *Liver Stiffness 1.7-2.1 m/s: Suggestive of compensated advanced chronic liver disease but need further test for confirmation. *Liver Stiffness over 2.1 m/s: Rules in compensated advanced chronic liver disease. *Liver Stiffness over 2.4 m/s: Suggestive of clinically significant portal hypertension. QUALITY OF DATA SET: *IQR/Median value equal or less than 0.15 implies a quality data set. *IQR/Median value over 0.15 implies a poor quality data set. SIGNIFICANT CHANGE FROM PRIOR EXAM: Significant change if liver stiffness measurement is 10% or greater from prior exam. OTHER CONSIDERATIONS: The stage of liver fibrosis may be overestimated in the setting of acute hepatitis, liver inflammation, elevated liver function tests, hepatic vascular congestion, obstructive cholestasis, non-fasting state, and infiltrative diseases such as amyloidosis and lymphoma. In some patients with NAFLD, the liver stiffness thresholds for compensated advanced chronic liver disease may be lower. In causes other than viral hepatitis and NAFLD, liver stiffness thresholds are not well established. Dictated By: Yaniv Ledezma MD Signed By: <Electronically signed by Yaniv Ledezma MD in OV> 12/12/23936 DD/ 5 TD/TT: Funeral Home Attendant: VICTORINO us Clara Shearer MD IMG US PROCEDURES Final Result documented in this encounter Visit Diagnoses Diagnosis Metabolic dysfunction-associated steatotic liver disease (MASLD)- Primary documented in this encounter Additional Health Concerns Assessment Noted Time PHQ-9 Depression Total Score: 0 10/17/19 24 3:45 PM EDT documented as of this encounter Care Teams Computer Help Desk Specialist Relationship Specialty Start Date End Date Clara Shearer MD [address] [place] [address] PCP - General Family Medicine 07/24/18 documented as of this encounter
--- OUTSIDE RECORDS SUMMARY | 2024-09-26 19:17 | XMS_ITS | Encounter Summary ---
Author Organization [employer] Address [address] [facility] [address] [place] [address] Care Team Providers Care Chain Carrier Name Role Phone Clara Shearer MD Primary Care Provider [phone] Encounter Details Date Type Department Care Team (Late st Contact Info) Description 09/02/2024 Orders Only [facility] ADULT DENTAL [address] [place], [place] [phone] Daina Mccollum, DDS [address] [place], [place] [phone] Social History Tobacco Use Types Packs/Day Years [...] Description 10/07/2024 11:15 AM EDT Office Visit [facility] MEDICINE [address] [place] [phone] Clara Shearer MD [address] [place] [address] 10/31/2024 2:00 PM EDT Office Visit [facility] ADULT DENTAL [address] [place] [address] Jignesh Espinozaaris [address] [place] [address] documented as of this encounter Visit Diagnoses Not on filedocumented in this encounter Additional Health Concerns Assessment Noted Time PHQ-9 Depression Total Score: 0 10/17/19 24 3:45 PM EDT documented as of this encounter Care Teams Chain Carrier Relationship Specialty Start Date End Date Clara Shearer MD [address] [place] [phone] PCP - General Family Medicine 07/24/18 documented as of this encounter
--- OUTSIDE RECORDS SUMMARY | 2024-09-26 19:17 | XMS_ITS | Encounter Summary ---
Author Organization [employer] Address [address] [facility] [address] [place] [address] Care Team Providers Care Auto Battery Builder Name Role Phone Clara Shearer MD Primary Care Provider [phone] Encounter Details Date Type Department Care Team (Late st Contact Info) Description 09/26/2024 Orders Only GENERIC EXTERNAL DATA DEPARTMENT Provider, [...] Description 10/07/2024 11:15 AM EDT Office Visit [facility] MEDICINE [address] [place] [address] Clara Shearer MD [address] [place] [address] 10/31/2024 2:00 PM EDT Office Visit [facility] ADULT DENTAL [address] [place] [address] Olga, Katt [address] [place] [address] documented as of this encounter Procedures Procedure Name Priority Date/Time Associated Diagnosis Comments PROTHROMBIN TIME WHOLE BLD POC Routine 09/26/2024 4:03 PM EST ~PT, ~INR - ANTI COAG CLINIC Routine 09/26/2024 4:03 PM EST documented in this encounter Results * (ABNORMAL) PROTHROMBIN TIME WHOLE BLD POC (09/26/2024 4:03 PM EST) Protime 44.2(H) 11.1 - 13.5 sec [facility] 09/26/2024 4:03 PM EST 09/26/2024 4:04 PM EST us Generic External Data Provider LAB BLOOD ORDERAB LES Final Result Performing Organization Address [facility] Co de Phone Number [facility] [address] [place] [phone] * (ABNORMAL) ~PT, ~INR - ANTI COAG CLINIC (09/26/2024 4:03 PM EST) Prothrombin Time INR 3.7(H) 0.9 - 1.1 [facility] Comment:METER #: [id number] TERNATIONAL NORMALIZED RATIO (INR) REFERENCE RANGES Reference RangeFor patients not on anticoagulant therapy: 0.9 - 1.1INR ranges for oral anticoagulanttherapy:For prevention and treatment of venous thrombosis and pulmonary embolism: 2.0 - 3.0For acute myocardial infarction with aspirin therapy: 2.0 - 3.0For acute myocardial infarction without aspirin therapy: 3.0 - 4.0For patients with mechanical prosthetic heart valves: 2.5 - 3.5 09/26/2024 4:03 PM EST 09/26/2024 4:04 PM EST us Generic External Data Provider LAB BLOOD ORDERAB LES Final Result Performing Organization Address [facility] Co de Phone Number [facility] [address] [place] [phone] documented in this encounter Visit Diagnoses Not on filedocumented in this encounter Additional Health Concerns Assessment Noted Time PHQ-9 Depression Total Score: 0 10/17/19 24 3:45 PM EDT documented as of this encounter Care Teams Auto Battery Builder Relationship Specialty Start Date End Date Clara Shearer MD [address] [place] [phone] PCP - General Family Medicine 07/24/18 documented as of this encounter
--- OUTSIDE RECORDS SUMMARY | 2024-09-26 19:17 | XMS_ITS | Clinical Summary ---
Author Organization [employer] Address [address] [facility] [address] [place] [address] Care Team Providers Care Center Human Resources Manager Name Role Phone Clara Shearer MD Primary Care Provider [phone] Allergies No known active allergies Medications docusate sodium (Colace) 100 MG capsule Take 1 tablet by mouth every 12 (twelve) hours. 0 Active ferrous sulfate 325 (65 Fe) MG tablet Take 1 tablet by mouth every 12 (twelve) hours. 1 Active HM ClearLax 17 GM/SCOOP powder 17 g. 3 Active senna (Senokot) 8.6 MG tablet Take 2 tablets by mouth at bedtime. 3 Active acetaminophen (Tylenol Extra Strength) 500 MG tablet Take 2 tablets (1,000 mg) by mouth every 6 (six) hours if needed for mild pain or moderate pain. 30 tablet 1 3 Active Minoxidil 5 % foam Apply to scalp 1/2 capsul once daily 60 g 3 3 Active cyclobenzaprine (Flexeril) 5 MG tablet May take 1 or 2 tablets at bedtime as needed for muscle spasm 60 tablet 3 3 Active omeprazole (PriLOSEC) [address] capsule Take 20 mg by mouth in the morning. 3 Active cetirizine (ZyrTEC) 10 MG tablet TAKE 1 TABLET BY MOUTH EVERY DAY 30 tablet 11 3 Active Ascorbic Acid (vitamin C) 500 MG tablet TAKE 1 TABLET BY MOUTH TWICE DAILY 60 tablet 11 4 Active D3 Super Strength 50 MCG (2000 UT) capsule TAKE 1 CAPSULE BY MOUTH EVERY DAY 30 capsule 11 4 Active Multiple Vitamin (Multivitamin) tablet TAKE 1 TABLET BY MOUTH EVERY DAY WITH FOOD 90 tablet 4 Active SUMAtriptan (Imitrex) 50 MG tablet TAKE 1 TABLET BY MOUTH AT ONSET OF MIGRAINE. MAY REPEAT ONCE AFTER 2 HOURS IF NEEDED 9 tablet 4 Active aspirin 81 MG EC tablet Take 81 mg by mouth Once per day. Active warfarin (Coumadin) 2 MG tabletIndication s:History of mechanical aortic valve replacement TAKE 2 TO 4 TABLETS BY MOUTH EVERY DAY DIRECTED BY COUMADIN CLINIC 120 tablet 11 4 Active Sodium Fluoride (PreviDent 5000 Plus) 1.1 % cream Apply 1 mg to teeth 3 times daily. 1 g 3 4 Active tolterodine LA (Detrol LA) 4 MG 24 hr capsule Take 4 mg by mouth Once per day. Active amoxicillin (Amoxil) 500 MG capsule Take 4 capsules of amoxicillin 500 mg 1 hour prior dental procedure 12 capsule 5 Active Active Problems Problem Noted Date Diagnosed Date Chronic headache 05/30/2024 Assessment & Plan (05/30/2024 12:20 PM EST): - patient was diagnosed with AYESHA - will try prescribing CPAP - patient reports improvement of symptoms since she tried imitrex AYESHA (obstructive sleep apnea) 05/30/2024 Assessment & Plan (05/30/2024 12:21 PM EST): - patient has sleep study which was ordered by utility pipe layer. Patient was referred to sleep medicine specialist and appointment is not until next August. Will try try prescribing CPAP. History of pancreatitis 05/30/2024 Right hip pain 05/30/2024 Assessment & Plan (05/30/2024 12:26 PM EST): - XR shows moderate degenerative joint disease - after MRI evaluation, will consider referral to orthopedist for hip evaluation Right lower quadrant pain 03/06/2024 Assessment & Plan (03/06/2024 4:10 PM EDT): Reports RLQ abd pain x2 days. No fevers. No evidence of acute abdomen. -ordered RLQ US -given return and ER precautions. Chronic right-sided low back pain 03/06/2024 Assessment & Plan (05/30/2024 12:25 PM EST): - s/p PT with minimal improvement - evaluated by [facility] orthopedist in March 2024. MRI was ordered and patient was referred to [facility] for injection treatment. - patient has received 3 injection treatments with no improvement - patient was advised to contact [facility] orthopedist to inquire MRI Assessment & Plan (03/06/2024 4:11 PM EDT): Reports R low back pain for months, Recently completed PT for 2 months without significant relief. -referred to Ortho 03/06/24 Teeth missing 12/28/2023 Dental plaque 12/28/2023 Metabolic disorder associated fatty liver 2023 Assessment & Plan (11/03/2023 12:07 PM EDT): - Most recent MRI in Feb 2023 showed hepatic steatosis - Hx of idiopathic pancreatitis in November 2022 - following with [facility] GI, last seen in Feb 2023 - continue working on lifestyle modifications GERD (gastroesophageal reflux disease) Assessment & Plan (05/30/2024 12:22 PM EST): - EGD in Jun 2024 Assessment & Plan (11/03/2023 12:11 PM EDT): - EGD in Jun - continue omeprazole Obesity 03/19/2023 Assessment & Plan (03/19/2023 1:44 PM EDT): - prediabetes / hx gestational diabetes - continue working on lifestyle modifications Lipoma of abdominal wall 03/19/2023 Assessment & Plan (03/19/2023 1:47 PM EDT): - tender with pressure, otherwise no significant issue - 12/30/22 Size 2.7 x 2.2 x 1.3 cm - evaluated by general surgeon in November 2022 - agreed to continue monitoring size and symptom for now; keep appt with general surgeon Hair loss 03/19/2023 Assessment & Plan (11/03/2023 12:10 PM EDT): - avoid irritation; use unscented hypoallergenic hair care product - eat well-balanced diet with adequate protein intake - trial of minoxidil topical - normal thyroid function test Assessment & Plan (03/19/2023 1:51 PM EDT): - avoid irritation; use unscented hypoallergenic hair care product - eat well-balanced diet with adequate protein intake - trial of minoxidil topical - normal thyroid function test Prediabetes 03/19/2023 Assessment & Plan (05/30/2024 12:23 PM EST): - history of gestational diabetes - pancreatitis in November 2022, treated with IVF - work on lifestyle modifications Assessment & Plan (11/03/2023 12:08 PM EDT): - history of gestational diabetes - pancreatitis in November 2022, treated with IVF - work on lifestyle modifications Assessment & Plan (03/19/2023 1:52 PM EDT): - history of gestational diabetes - pancreatitis in November 2022, treated with IVF - November 2022 A1C 5.9% - work on lifestyle modifications Neck pain 03/19/2023 Assessment & Plan (03/19/2023 2:07 PM EDT): - X-ray normal in January 2023 - continue stretching exercise, massage, yoga, judicious use of analgesic and muscle relaxant Rheumatic heart disease 11/22/2022 Assessment & Plan (05/30/2024 12:22 PM EST): - s/p AVR in Feb 2010 - on warfarin - previously prescribed metoprolol by utility pipe layer; no longer on the medication due to hypotension / dizziness - continue following with utility pipe layer, [facility] Dr Haynes - last TTE in January 2022, mild mitral valve stenosis - continue current treatment plan per cardiology Assessment & Plan (03/19/2023 1:47 PM EDT): - s/p AVR in Feb 2010 - on warfarin - previously prescribed metoprolol by utility pipe layer; no longer on the medication due to hypotension / dizziness - continue following with utility pipe layer, [facility] Dr Haynes - last TTE in January 2022, mild mitral valve stenosis - continue current treatment plan per cardiology Assessment & Plan (11/22/2022 11:35 AM EDT): - s/p AVR in Feb 2010 - on warfarin - previously prescribed metoprolol by utility pipe layer; no longer on the medication due to hypotension / dizziness - continue following with utility pipe layer, [facility] Dr Haynes - last TTE in January 2022, mild mitral valve stenosis - continue current treatment plan per cardiology Chronic anticoagulation 11/22/2022 Assessment & Plan (05/30/2024 1:41 PM EST): - indication: Aortic valve replacement - medication warfarin - goal INR 2-3 - followed by [facility] anticoagulation clinic - last INR was 2.0 on 03/01/23 - continue current management plan Assessment & Plan (03/19/2023 1:49 PM EDT): - indication: Aortic valve replacement - medication warfarin - goal INR 2-3 - followed by [facility] anticoagulation clinic - last INR was 2.0 on 03/01/23 - continue current management plan Assessment & Plan (11/22/2022 11:40 AM EDT): - indication: Aortic valve replacement - medication warfarin - goal INR 2-3 - followed by [facility] anticoagulation clinic - last INR was 2.4 in September 2022 Left lower quadrant abdominal swelling, mass and lump 11/08/2022 Assessment & Plan (11/22/2022 11:37 AM EDT): - constipation prevention History of gestational diabetes 11/08/2022 Assessment & Plan (11/08/2022 4:45 PM EDT): Will order lab Abnormal uterine bleeding 11/08/2022 Assessment & Plan (03/19/2023 1:53 PM EDT): s/p Endometrial Curetting's, polyp, benign -Pt has follow-up appointment with [employer]IDE[employer]APE SALES REPRESENTATIVE -Pt is on Coumadin -Pt requested Hysterectomy, pt will follow-up with [employer] SALES REPRESENTATIVE with possible hysterectomy in future Assessment & Plan (11/08/2022 4:50 PM EDT): s/p Endometrial Curetting's, polyp, benign -Pt has follow-up appointment with [employer] SALES REPRESENTATIVE -Pt is on Coumadin -Pt requested Hysterectomy, pt will follow-up with [employer] SALES REPRESENTATIVE with possible hysterectomy in future Cyst of ovary 09/22/2022 Iron deficiency anemia due to chronic blood loss 09/22/2022 Assessment & Plan (05/30/2024 1:41 PM EST): - AUB in a setting of anticoagulation - s/p removal of endometrial polyp, benign - Pt has follow-up appointment with [employer] SALES REPRESENTATIVE - Pt is taking Coumadin Assessment & Plan (11/03/2023 12:09 PM EDT): - AUB in a setting of anticoagulation - s/p removal of endometrial polyp, benign -Pt has follow-up appointment with [employer]OT[employer] SALES REPRESENTATIVE -Pt is taking Coumadin Assessment & Plan (11/08/2022 4:45 PM EDT): Due to AUB: S/p Endometrial Curetting's, polyp, benign -Pt has follow-up appointment with V[employer]OT[employer] SALES REPRESENTATIVE -Pt is taking Coumadin Vitamin D deficiency 12/04/2018 Assessment & Plan (11/03/2023 12:08 PM EDT): -continue vitamin D supplement Presence of subdermal contraceptive implant 09/2014 History of mechanical aortic valve replacement 0 04/07/2015 Assessment & Plan (05/30/2024 12:22 PM EST): - Handle Attacher: [facility], 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 Mechanical aortic valve functioning normally. Moderate mitral valve stenosis. No regurgitation. - Continue warfarin - Continue SBE prophylaxis. Assessment & Plan (11/03/2023 12:18 PM EDT): - 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 Mechanical aortic valve functioning normally. Moderate mitral valve stenosis. No regurgitation. - Continue warfarin - Continue SBE prophylaxis. Assessment & Plan (03/19/2023 1:47 PM EDT): - Handle Attacher: Dr. Dallas Duran, last seen in Jul 2022 - s/p AVR for rheumatic disease and aortic regurgitation in Feb 2010 - EKG showed sinus rhythm and RBBB - echocardiogram JANUARY 2022 nml LVEF 60-65%; mild mitral valve stenosis - Continue aspirin and warfarin, per cardiology. - Continue SBE prophylaxis. Assessment & Plan (11/22/2022 11:37 AM EDT): - Handle Attacher: Dr. Dallas Duran, last seen in Jul 2022 - s/p AVR for rheumatic disease and aortic regurgitation in Feb 2010 - EKG showed sinus rhythm and RBBB - echocardiogram JANUARY 2022 nml LVEF 60-65%; mild mitral valve stenosis - Continue aspirin and warfarin, per cardiology. - Continue SBE prophylaxis. Allergic rhinitis 12/09/2013 Aortic valve regurgitation 07/25/2013 Assessment & Plan (05/30/2024 12:22 PM EST): - [facility] last seen in December 2023 - s/p AVR for rheumatic disease and aortic regurgitation due to rheumatic heart disease in Feb 2010 - EKG showed sinus rhythm and RBBB - echocardiogram in Aug 2023, EF 59%. Normally functioning AV. Moderate mitral valve stenosis. - Continue warfarin, per cardiology. - Continue SBE prophylaxis. Assessment & Plan (11/03/2023 12:20 PM EDT): - Handle Attacher: [facility], Dr. 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 Normally functioning AV. Moderate mitral valve stenosis. - Continue warfarin, per cardiology. - Continue SBE prophylaxis. Assessment & Plan (11/22/2022 11:36 AM EDT): - Handle Attacher: [facility], Dr. Haynes, last seen in Jul 2022 - s/p AVR for rheumatic disease and aortic regurgitation in Feb 2010 - EKG showed sinus rhythm and RBBB - echocardiogram JANUARY 2022 nml LVEF 60-65%; mild mitral valve stenosis - Continue aspirin and warfarin, per cardiology. - Continue SBE prophylaxis. Varicose veins 07/25/2013 Resolved Problems Problem Noted Date Diagnosed Date Resolved Date Idiopathic acute pancreatiti s without infection or necrosis 03/19/2023 11/03/2023 Assessment & Plan (03/19/2023 2:10 PM EDT): - 12/03/22 Evaluated and treated at [facility]. WBC 13k, Lipase 247, CT showed pancreatitis. Given IVF and analgesics. - Seen by [facility] GI in December 2022 - MRI on 03/01/23 was normal. - HgbA1C 5.9% - Follow recommendations per GI. Menometrorrhagia 09/22/2022 03/07/2023 Pain in female pelvis 09/22/20222022 Encounters Date Type Department Care Team Description 09/26/2024 Orders Only GENERIC EXTERNAL DATA DEPARTMENT Provider, Generic External Data 09/02/2024 Orders Only [facility] [address] [place] [address] Daina Mccollum, DDS 09/02/2024 Telephone [facility] [address] [place] [address] Lyn-Méndez Daina, DDS pre medi antibiotic 08/28/2024 Orders Only GENERIC EXTERNAL DATA DEPARTMENT Provider, Generic External Data 08/08/2024 Telephone [facility] [address] [place] [address] Faina Gayle MA august recall 07/31/2024 Orders Only GENERIC EXTERNAL DATA DEPARTMENT Provider, Generic External Data 07/08/2024 Telephone [facility] [address] [place] [address] Clara Shearer MD Durable Medical Equipment 07/05/2024 Telephone [facility] [address] [place] [address] Maddy Corcoran, lead quality technician from Last 3 Months Immunizations Name Administration Dates Next Due Hep B, adult 05/09/2023,12/07/2022,11/08/2022 Influenza Injectable Quadriv alant Preservative Free IIV4 MDCK 07/02/2018,08/02/2016,10/30/2014 Influenza injectable quadriv alent IIV4 with preservative 07/11/2017,04/07/2015 Influenza injectable quadriv alent preservative free 05/09/2023,07/12/2021,07/02/2018,07/11,08/02/2016,04/07/2015,10/30/2014 Influenza, IIV3, injectable 04/06/2011 Influenza, Split (incl. dave fied surface antigen) 07/25/2013,10/08/2012 Influenza, Unspecified 07/25/2013,10/08/2012, Influenza, seasonal, injecta ble, preservative free 05/30/2024 Moderna Covid-19 Vaccine 12+ 11/06/2020,10/10/19 21 Pfizer Covid-19 Vaccine 12+ 05/09/2023 Pneumococcal Conjugate PCV 20 03/07/2023 Pneumococcal Polysaccharide PPSV23 03/07/2010 TD (adult), 2 Lf tetanus tox oid, preservative free, adsorbed 07/12/2021 Tdap 04/30/2010 Family History Medical History Relation Name Comments Cancer Maternal Grandmother Relation Name Status Comments Maternal Grandmother Social History Tobacco Use Types Packs/Day Years Used Date Smoking Tobacco: Never Passive Smoke Exposure: Never Smokeless Tobacco: Never Tobacco Cessation:Counseling Given: Not Answered Alcohol Use Standard Drinks/Week Comments Never 0 [...] your housing situation today? I have naye michelle 05/22/[address] you li [...] Orientation Straight 05/23/2022 10 :21 AM EDT Last Filed Vital Signs Vital Sign Reading Time Taken Comments Blood Pressure 104/76 05/30/2024 8:50 AM EST Pulse 70 05/30/2024 8:50 AM EST Temperature 36.2 ??C (97.1 ??F) 05/30/2024 8:50 AM ES T Respiratory Rate 18 05/30/2024 8:50 AM EST Oxygen Saturation 97% 05/30/2024 8:50 AM EST Inhaled Oxygen Concentration - - Weight 67 kg (147 lb 9.6 oz) 05/30/2024 8:50 AM EST Height 149.9 cm (4' 11 ) 05/30/2024 8:50 AM EST Body Mass Index 29.81 05/30/2024 8:50 AM EST Plan of Treatment Upcoming Encounters Date Type Department Care Team (Late st Contact Info) Description 10/07/2024 11:15 AM EDT Office Visit [facility] [address] [place] [address] Clara Shearer MD [address] [place] [address] 10/31/2024 2:00 PM EDT Office Visit [facility] [address] [place] [address] Katt Espinoza [address] [place] [address] Health Maintenance Due Date Last Done Comments CT Colonography 1977 FIT DNA/Cologuard 1977 FIT 1977 FOBT 1977 Sigmoidoscopy 1977 Family Planning (PISQ) 02/19/1992 Hepatitis A Vaccines (1 of 2 - Risk 2-dose series) 02/19/1996 Pap Smear 11/14/2023 11/13/2020 Dental X-Ray: Full Mouth 02/05/2024 02/03/2021 COVID-19 Vaccine ( season) 2024 05/09/2023, 11/06/2020, 10/09/2020 Dental Prophylaxis 06/29/2024 12/28/2023, 09/26/2019 Dental Oral Exam 07/21/2024 01/19/2024, , 02/03/2021, Additional history exists Depression Screening 10/16/2024 10/17/2023, 10/17/19 24 Diabetes: Hemoglobin A1C 12/10/2024 024, 11/16/2023, 10/17/2023, Additional history exists Mammogram 12/23/2024 12/23/2022, 3, 12/11/2020, Additional history exists Dental X-Ray: Bitewings 12/28/2024 12/28/19 24, 02/03/2021, 09/26/2019 SDOH Screening 05/22/2025 05/22/2024 Alcohol/Substance Use Screening 05/30/2025 05/30/2024 Tobacco Screening 05/30/2025 05/30/2024 Cervical Cancer Screening 11/13/2025 HPV/Cotest 11/13/2025 11/13/2020, 08/20/2019 Zoster Vaccines (1 of 2) 2027 Lipid Panel 11/15/2028 11/16/2023, 11/22, 05/12/2022, Additional history exists DTaP/Tdap/Td Vaccines (3 - Td or Tdap) 07/12/2031 07/12/2021, 04/30/2010 Colonoscopy 07/11/2032 Colorectal Cancer Screening 07/11/2032 RSV Patients and Patients Aged 60 years or older (1 - 1-dose 75+ series) 02/19/2052 HIV Screening Completed 12/15/2022, 07/22/2019 Pneumococcal Vaccine: Pediatrics (0 to 5 Years) and At-Risk Patients (6 to 49) Years) Completed 03/07/2023, 03/07/2010 Hepatitis B Vaccines Completed 05/09/2023, 12/07/2022, 11/08/2022 Hepatitis C Screening Completed 12/11/2023 , 12/15/2022, 07/22/2019 Influenza Vaccine Completed 05/30/2024, , 07/12/2021, Additional history exists HIB Vaccines Aged Out No longer eligi ble based on patient's age to complete this topic HPV Vaccines Aged Out No longer eligi ble based on patient's age to complete this topic IPV Vaccines Aged Out No longer eligi ble based on patient's age to complete this topic Meningococcal Vaccine Aged Out No ben mark eligible based on patient's age to complete this topic RSV under 20 months Aged Out No longe r eligible based on patient's age to complete this topic Rotavirus Vaccines Aged Out No longer eligible based on patient's age to complete this topic Procedures Procedure Name Priority Date/Time Associated Diagnosis Comments PROTHROMBIN TIME WHOLE BLD POC Routine 09/26/2024 4:03 PM EST ~PT, ~INR - ANTI COAG CLINIC Routine 09/26/2024 4:03 PM EST PROTHROMBIN TIME WHOLE BLD POC Routine 08/28/2024 3:03 PM EST ~PT, ~INR - ANTI COAG CLINIC Routine 08/28/2024 3:03 PM EST PROTHROMBIN TIME WHOLE BLD POC Routine 07/31/2024 2:43 PM EST ~PT, ~INR - ANTI COAG CLINIC Routine 07/31/2024 2:43 PM EST PERIODIC ORAL EVALUATION - ESTABLISHED PATIENT Routine 01/19/2024 1:30 PM EDT Teeth missing Encounter for dental examination PROPHYLAXIS - ADULT Routine 12/28/2023 3 :00 PM EDT Dental plaque BITEWINGS - 2 RADIOGRAPHIC IMAGES Routine 12/28/2023 3:00 PM EDT Teeth missing Dental plaque HEPATITIS PANEL, GENERAL Routine 12/11/2023 4:30 PM EDT HEMOGLOBIN A1C Routine 12/11/2023 4:30 PM EDT LIPID PANEL WITH REFLEX TO DIRECT LDL Routine 11/16/2023 3:27 PM EDT Prediabetes BI MAMMOGRAM SCREENING TOMOSYNTHESIS BILATERAL Routine 12/23/2022 4:40 PM EDT HIV 1 RNA, QUANTITATIVE REAL TIME PCR Routine 12/15/2022 8:09 AM EDT Routine health maintenance INTRAORAL - COMPLETE SERIES OF RADIOGRAPHIC IMAGES Routine 02/03/2021 12:00 AM EDT HPV GENOTYPES 16,18/45 Routine 4:51 PM EDT THINPREP PAP Routine 11/13/2020 4:51 PM EDT from Last 3 Months or Most Recently Relevant to Health Maintenance Results * (ABNORMAL) PROTHROMBIN TIME WHOLE BLD POC (09/26/2024 4:03 PM EST) Only the most recent of3 resultswithin the time period is included. Protime 44.2(H) 11.1 - 13.5 sec [facility] 09/26/2024 4:03 PM EST 09/26/2024 4:04 PM EST Generic External Data Provider LAB BLOOD ORDERAB LES Final Result Performing Organization Address City/[facility]/ZIP Co de Phone Number [facility] [address] [place] [address] [phone] * (ABNORMAL) ~PT, ~INR - ANTI COAG CLINIC (09/26/2024 4:03 PM EST) Only the most recent of3 resultswithin the time period is included. Prothrombin Time INR 3.7(H) 0.9 - 1.1 [facility] Comment:METER #: [id number] TERNATIONAL NORMALIZED RATIO (INR) REFERENCE RANGES Reference [...] 4:03 PM EST 09/26/2024 4:04 PM EST Generic External Data Provider LAB BLOOD ORDERAB LES Final Result Performing Organization Address [facility]/ZIP Co de Phone Number [facility] [address] [place] [phone] * Hepatitis Panel, General (12/11/2023 4:30 PM EDT) Hepatitis A IgM Nonreactive Nonreactive [facility] Comment:IgM antibodies to HEMPHILL V not detected; does not exclude earlyacute or recovered HAV infection. ~Hepatitis B Surface Antibody REACTIVE Nonreactive [facility] Comment:REACTIVE: > 11.99 mI U/mL Hepatitis B Core Antibody Nonreactive Nonreactive [facility] Hepatitis C Antibody Nonreactive Nonreactive [facility] Comment:Antibodies to HCV no t detected; does not exclude early acuteHCV infection. Hepatitis B Surface Ag Negative Negative [facility] 12/11/2023 4:30 PM EDT 12/11/2023 4:33 PM EDT us Generic External Data Provider LAB BLOOD ORDERAB LES Final Result Performing Organization Address [facility] Co de Phone Number [facility] [address] [place] [phone] * Hemoglobin A1c (12/11/2023 4:30 PM EDT) Hemoglobin A1c 5.7 <6.0 % [facility] Comment:Hemoglobin A1C Refer ence Range Adults: 4.8 - 6.0 % Non diabetic: < 6.0 % Goal: < 7.0 %Additional Action Suggested: > 8.0 %Note: Hemoglobin A1c results are invalid for patients with abnormal amounts of HbF. Blood transfusions may impact the HbA1c concentration in the patient sample. Estimated Average Glucose 117 mg/dL [facility] Comment:eAG = Estimated ave rage glucose which is %A1C expressed asaverage glucose, using the formula of the M1A-EceoxuuIhpdiou Glucose study (ADAG), Diabetes Care, Vol.31,#8,Feb. 2007 12/11/2023 4:30 PM EDT 12/11/2023 4:33 PM EDT us Generic External Data Provider LAB BLOOD ORDERAB LES Final Result Performing Organization Address [facility] Co de Phone Number [facility] [address] [place] [phone] * (ABNORMAL) Lipid Panel with Reflex to Direct LDL (11/16/2023 3:27 PM EDT) Triglycerides 305(H) <150 mg/dL [facility] Comment:Desirable Triglyceri de: less than 150 mg/dLBorderline High Triglyceride 150-199 mg/dLHigh Triglyceride: 200-499 mg/dLVery High Triglyceride: greater than or equal to 5OO mg/dL Cholesterol 220(H) <200 mg/dL [facility] Comment:Desirable Cholestero l: less than 200 mg/dLBorderline High Cholesterol: 200-239 mg/dLHigh Cholesterol: greater than 239 mg/dL LDL Cholesterol Calculated 111(H) <100 mg/dL [facility] Comment:Desirable LDL: less than 100 mg/dLNear Optimal/Above Optimal LDL: 110- 129 mg/dLBorderline High LDL: 130-159 mg/dLHigh LDL: 160-189 mg/dLVery High LDL: greater than or equal to 190 mg/dL HDL Cholesterol 48 >40 mg/dL [facility] Comment:Desirable HDL: great er than 40 mg/dL Note: This HDL assay may give artificially low results in patients with liver disease. Blood 11/16/2023 3:27 PM EDT 11/16/2023 3:27 PM EDT us Clara Shearer MD LAB BLOOD ORDERABLES Final Resul t [facility] [address] [place] [address] [phone] * BI Mammogram Screening Tomosynthesis Bilateral (12/23/2022 4:40 PM EDT) Anatomical Region Laterality Modality Breast Bilateral Mammography 12/23/2022 4:40 PM EDT Narrative 12/26/2022 8:07 AM EDT ? [facility] ? [address] ?[place] [address] ? Mammography Report ? Signed ? Patient: Caizan,Gerardina ?MR#: [id number] ?? 2088 ? : 1975 ?Acct:[id number] ? Age/Sex: 47 / F ?ADM Date: //23 ? Loc: HO.MAMMO ? Attending Dr: Clara Shearer MD ? Ordering Physician: Clara Shearer MD ?Results: 1Negative ? Date of Service: 12/23/22 ?Follow Up: 1 Year From Orig ?? inal Mammogram ? Procedure(s): MM tomosynthesis screening BI ?? Accession Number(s): [id number] ? cc: Clara Shearer MD ? EXAMINATION: ?? MM SCREENING DIGITAL BREAST TOMOSYNTHESIS, BILATERAL ? CLINICAL INFORMATION: ? Screening. Asymptomatic. ? The lifetime risk of breast cancer based on the Tyrer-Cuzick Model is ?? 7%. ? COMPARISON: ?? Mammography: 12/14/2021, 12/11/2020, 09/04/2019 ? TECHNIQUE: ?? Digital breast tomosynthesis is performed in both the craniocaudal and ?? mediolateral oblique views along with computer-aided detection (CAD). ?? Synthesized 2D images are generated from the tomosynthesis. ? FINDINGS: ?? There are scattered areas of fibroglandular density (ACR BI-RADS breast ?? composition Category b). ? There are no significant masses, abnormal calcifications, or other ?? abnormalities. ??Parenchymal pattern is similar to prior studies. There ?? is no developing density or architectural abnormality. The axilla and ?? skin contours are unremarkable. No significant changes. ? MM/MM tomosynthesis screening BI ?? IMPRESSION: ?? No mammographic evidence of malignancy. ? ASSESSMENT: ? BI-RADS 1: Negative ? RECOMMENDATION: ?? Routine annual mammography screening. ? This patient's information was entered into a reminder system with a ?? target due date for their next mammogram. ? Dictated By: ?Yaniv Yanes MD ? Signed By: ?<Electronically signed by Yaniv Yanes MD in OV> ?12/26/22803 ? DD/ 1640 ? TD/TT: ? Senior Net C Developer: CHO ? Procedure Note Donotuseinterpreter, Image - 01/19/2023 [facility] [address] [place] [address] Mammography Report Signed Patient: Yoel Martell#: [id number] 2088 : 1975Acct:[id number] Age/Sex: 47 / FADM Date: 12/23/22 Loc: MAMMO Attending Dr: Clara Shearer MD Ordering Physician: Clara Sheaerr MDResults: 1Negative Date of Service: 12/23/22Follow Up: 1 Year From Orig inal Mammogram Procedure(s): MM tomosynthesis screening BI Accession Number(s): [id number] cc: Clara Shearer MD EXAMINATION: MM SCREENING DIGITAL BREAST TOMOSYNTHESIS, BILATERAL CLINICAL INFORMATION: Screening. Asymptomatic. The lifetime risk of breast cancer based on the Tyrer-Cuzick Model is 7%. COMPARISON: Mammography: 12/14/2021, 12/11/2020, 09/04/2019 TECHNIQUE: Digital breast tomosynthesis is performed in both the craniocaudal and mediolateral oblique views along with computer-aided detection (CAD). Synthesized 2D images are generated from the tomosynthesis. FINDINGS: There are scattered areas of fibroglandular density (ACR BI-RADS breast composition Category b). There are no significant masses, abnormal calcifications, or other abnormalities. Parenchymal pattern is similar to prior studies. There is no developing density or architectural abnormality. The axilla and skin contours are unremarkable. No significant changes. MM/MM tomosynthesis screening BI IMPRESSION: No mammographic evidence of malignancy. ASSESSMENT: BI-RADS 1: Negative RECOMMENDATION: Routine annual mammography screening. This patient's information was entered into a reminder system with a target due date for their next mammogram. Dictated By: Yaniv Yanes MD Signed By: <Electronically signed by Yaniv Yanes MD in OV> 12/26/22 0804 DD/ 1640 TD/TT: Senior Net C Developer: CHO [facility] External Provider IMG BI PROCEDURES Final Result * HIV-1 RNA, Quantitative, Real-Time PCR (12/15/2022 8:09 AM EDT) Pathologist [facility] HIV 1 RNA, QN PCR NOT DETECTED NOT DETECTED copies/mL [employer] HIV 1 RNA, QN PCR NOT DETECTED NOT DETECTED Log copies/mL [employer] Comment: This test was performed using Real-Time Polymerase Chain Reaction. Reportable Range: 20 copies/mL to 10,000,000 copies/mL (1.30 log copies/mL to 7.00 log copies/mL). Blood Venous blood specimen / Unknown 12/15/2022 8:09 AM EDT 12/15/2022 8:10 AM EDT Narrative [facility] - 12/23/2022 6:53 PM EDT FASTING:NO FASTING: NO Yany Cosby LANGUAGE ARTS TEACHER LAB BLOOD ORDERABLES Final Res ult [facility] [address], [place] [address] [employer] [address] [place] [address] * THINPREP PAP (11/13/2020 4:51 PM EDT) Clinical Information: None given [facility] COMMENT SEE COMMENT [facility] Comment: EXPLANATORY NOTE: ? The Pap is a screening test for cervical cancer. It is ?? not a diagnostic test and is subject to false negative ?? and false positive results. It is most reliable when a ?? satisfactory sample, regularly obtained, is submitted ?? with relevant clinical findings and history, and when ?? the Pap result is evaluated along with historic and ?? current clinical information. ?? Children'S Librarian : SEE COMMENT [facility] Comment: RK, CT(ASCP) CT screening location: [address] ??[address] Interpretation/R esult: Negative for intraepithelial lesion or malignancy. [facility] LMP: NONE GIVEN [facility] Prev. BX: NONE [facility]IVEN [facility] Prev. PAP: NONE GIVEN [facility] Review Children'S Librarian : SEE COMMENT [facility] Comment: BLC,CT(ASCP) CT screening location: [address] ??[address] SOURCE: None given [facility] Statement Of Adequacy: SEE COMMENT [facility] Comment: Satisfactory for evaluation. Endocervical/transformation zone component present. Age and/or menstrual status not provided 11/13/2020 4:51 PM EDT Ginette Her NP LAB PATHOLOGY ORDERABLES Final Result Performing Organization Address [facility] de Phone Number [facility] Any[address] * HPV GENOTYPES 16,18/45 (11/13/2020 4:51 PM EDT) HPV 16 RNA NOT DETECTED NOT DETECTED [facility] HPV 18/45 RNA NOT DETECTED NOT DETECTED [facility] Comment: Methodology: Life Skills Worker Mediated Amplification The analytical performance characteristics of this assay have been determined by [employer]. The modifications have not been cleared or approved by the FDA. This assay has been validated pursuant to the CLIA regulations and is used for clinical purposes. 11/13/2020 4:51 PM EDT Ginette Her NP LAB BLOOD ORDERABLES Final Resu lt Performing Organization Address [facility] Co de Phone Number [facility] [address] from Last 3 Months or Most Recently Relevant to Health Maintenance Insurance Kelsea PEREZ [address] [id number] [facility] Kelsea Perez [address] [id number] DENTAL - HSN FULL (MEDICAID) D[facility]AL-[facility] MEDICAID LIMITED ADULT * Guarantor: Thalia Martell Account Type Relation to Patient Date of Phone Billing Address Personal/[place] [address] Care Teams Center Human Resources Manager Relationship Specialty Start Date End Date Clara Shearer MD [address] [place] [address] PCP - General Family Medicine 07/24/18
--- OUTSIDE RECORDS SUMMARY | 2024-09-26 19:17 | XMS_ITS | Encounter Summary ---
Author Organization [employer] Address [address] [facility] 7t [place] [address] Care Team Providers Care Commercial Art Instructor Name Role Phone Clara Shearer MD Primary Care Provider [phone] Reason for Visit * Reason Onset Date Comments rs otf 05/22/2023 Encounter Details Date Type Department Care Team (Late st Contact Info) Description 05/22/2023 Telephone [facility] ADULT DENTAL [address] [place], [place] [phone] Olga, Katt [address] [place] [address] rs prophy Social History Tobacco Use Types Packs/Day Years [...] encounter Miscellaneous Notes * Telephone Encounter - Socorro Garrett - 05/22/2023 11:33 AM EDT Patient is confirming her 05/[address] Méndez. She does however have to rs her cleaning appt with Katt which was on the same day. She would like a 3pm. Pls reach out to patient for rs cleaning DR documented in this encounter Plan of Treatment Upcoming Encounters Date Type Department Care Team (Late st Contact Info) Description 10/07/2024 11:15 AM EDT Office Visit [facility] MED[facility]INE [address] [place] [address] Clara Shearer MD [address] [place] [address] 10/31/2024 2:00 PM EDT Office Visit [facility] ADULT DENTAL [address] [place] [address] Katt Espinoza [address] [place] [address] documented as of this encounter Visit Diagnoses Not on filedocumented in this encounter Additional Health Concerns Assessment Noted Time PHQ-9 Depression Total Score: 5 03/07/20 23 3:27 PM EDT documented as of this encounter Care Teams Commercial Art Instructor Relationship Specialty Start Date End Date Clara Shearer MD [address] [place] [address] PCP - General Family Medicine 07/24/18 documented as of this encounter
--- OUTSIDE RECORDS SUMMARY | 2024-09-26 19:17 | XMS_ITS | Encounter Summary ---
Author Organization [employer] Address [address] [place] [address] 7 [place] [address] Care Team Providers Care Box Annealer Name Role Phone Clara Shearer MD Primary Care Provider [phone] Reason for Visit * Reason Onset Date Comments Letter for School/Work 08/02/2022 Encounter Details Date Type Department Care Team ([facility] st Contact Info) Description 08/02/2022 Telephone [facility] [address] [place], [place] [phone] Clara Shearer MD [address] [place], [place] [phone] Letter for School/Work Social History Tobacco Use Types Packs/Day Years Used Date Smoking Tobacco: Never Assessed Comments Unknown Sex and Gender Information Value Date Recorded Sex Assigned at Female 05/23/2022 10:21 AM EDT Legal Sex Female 10:21 AM EDT Gender Identity Female 05/23/2022 10:21 AM EDT Sexual Orientation Straight 05/23/2022 10 :21 AM EDT documented as of this encounter Miscellaneous Notes * Telephone Encounter - Lala Rodriguez - 08/11/2022 2:43 PM EST Tc from Ambreen with [facility] ( obgyn ) requesting status on letter for when pt should stop coumadin pt has a upcoming procedure on 08-19-22. Fax number [phone] Any question please contact Ambreen at [phone] ext [phone] * Telephone Encounter - Khang Garcia - 08/04/2022 2:41 PM EST Tc from pankaj with [facility] requesting a call regarding message below Please contact pankaj at [phone] * Telephone Encounter - Ronda Mahan LPN - 08/04/2022 2:41 PM EST Kelly, this should be done upstairs we do not do letters regarding medication stop or start. Please discuss with Dr. Shearer on what she wants and you can call [facility] to fax that order/letteror if they will take verbal orders from you that is even easier. * Telephone Encounter - Kelly Campuzano RN - 08/02/2022 3:33 PM EST Pt having procedure (dilation and curettage with hysteroscopy to place mirena) at [facility] 08/19/22. They are requesting a letter stating when pt should stop and restart coumadin (how many days before and after). * Telephone Encounter - Khang Garcia - 08/02/2022 2:48 PM EST Tc from claudia with [facility] OBGYN requesting a letter stating when pt will be stopping medication ( warfarin 2 mg ) prior to OP Please contact claudia at [phone] ext [phone] documented in this encounter Plan of Treatment Upcoming Encounters Date Type Department Care Team (Late st Contact Info) Description 10/07/2024 11:15 AM EDT Office Visit [facility] MED[facility] [address] [place], [place] [phone] Clara Shearer MD [address] [place] [address] 10/31/2024 2:00 PM EDT Office Visit [facility] ADULT DENTAL [address] [place], [place] [phone] Jignesh Espinozaaris [address] [place] [address] documented as of this encounter Visit Diagnoses Not on filedocumented in this encounter Care Teams Box Annealer Relationship Specialty Start Date End Date Clara Shearer MD [address] [place] [address] PCP - General Family Medicine 07/24/18 documented as of this encounter
--- OUTSIDE RECORDS SUMMARY | 2024-09-26 19:17 | XMS_ITS | Encounter Summary ---
Author Organization [employer] Address [address] [facility] 7 [place] [address] Care Team Providers Care Cyber Security Administrator Name Role Phone Clara Shearer MD Primary Care Provider [phone] Reason for Referral * Consultation (Routine) - Closed Specialty Diagnoses / Procedures Referred By Ron brewer Referred To Contact Physical Therapy Diagnoses Right hip pain Chronic right-sided low back pain, unspecified whether sciatica present Clara Shearer MD [address] [place] [address] Phone: tel: fax: AT Physical Therapy - [address] [address] Phone: tel: fax: Referral ID Status Reason Start Date Expiration Date V isits Requested Visits Authorized [id number] Closed Specialty Services Required 11/14/2023 11/13/2024 1 1 Encounter Details Date Type Department Care Team (Late st Contact Info) Description 11/14/2023 Orders Only [facility] [address] [place], [place] [phone] Clara Shearer MD [address] [place], [place] [phone] Right hip pain (Primary Dx); Chronic right-sided low back pain, unspecified whether sciatica present; Abnormal x-ray; Abnormal x-ray of thoracic spine Social History Tobacco Use Types Packs/Day Years [...] Description 10/07/2024 11:15 AM EDT Office Visit [facility] [address] [place] [address] Clara Shearer MD [address] [place] [address] 10/31/2024 2:00 PM EDT Office Visit [facility] ADULT DENTAL [address] [facility] [place] [address] Katt Espinoza [address] [place] [address] Scheduled Referrals Name Type Priority Associated Diagnoses Orde r Schedule Referral to Physical Therapy Outpatient Referral Routine Right hip pain Chronic right-sided low back pain, unspecified whether sciatica present Expected: 11/14/2023 (Approximate), Expires: 11/13/2024 documented as of this encounter Procedures Procedure Name Priority Date/Time Associated Diagnosis Comments XR THORACIC SPINE 2 VIEWS Routine 11/16/2023 3:49 PM EDT Abnormal x-ray Abnormal x-ray of thoracic spine documented in this encounter Results * XR Thoracic Spine 2 Views (11/16/2023 3:49 PM EDT) Anatomical Region Laterality Modality Spine, T-spine Radiographic Darlene ging 11/16/2023 3:49 PM EDT Narrative 11/25/2023 8:18 AM EDT ? [facility] ?[address] ?[place] [address] ?XRay Report ? Signed ? Patient: Thalia Martell ?MR#: [id number] ?? 2088 ? : 1975 ?Acct:[id number] ? Age/Sex: 48 / F ?ADM Date: 11/16/23 ? Loc: HO.XRAY ? Attending Dr: Clara Shearer MD ? Ordering Physician: Clara Shearer MD ?? Date of Service: 11/16/23 ?? Procedure(s): XR thoracic spine 2V ?? Accession Number(s): [id number] ? cc: Clara Shearer MD ? EXAMINATION: ?? XR THORACOLUMBAR SPINE ? CLINICAL INFORMATION: ?? Pain ? COMPARISON: ?? None available. ? TECHNIQUE: ?? 3 views of the dorsal spine ? FINDINGS: ?? The vertebral alignment is normal. No intrinsic bony abnormality. The ?? disc heights and neural foramina are well maintained. The endplates and ?? posterior elements are normal. No fracture or subluxation. The ?? surrounding prevertebral soft tissues are unremarkable. ? Incidental note made of postsurgical changes in the chest with ?? sternotomy wires and valve replacement. ? XR/XR thoracic spine 2V ?? IMPRESSION: ?? Dorsal spine normal. ? Dictated By: ?Easton Campos MD ? Signed By: ?<Electronically signed by Easton Campos MD in OV> ?11/25/2315 ? DD/ 1549 ? TD/TT: ? Senior Applications Architect: QUINN ? Procedure Note Donhuyter, Image - 11/25/[address] [address] XRay Report Signed Patient: Yoel Martell#: [id number] 2088 : 1975Acct:[id number] Age/Sex: 48 / FADM Date: 11/16/23 Loc: [facility]ICK[facility] Attending Dr: Clara Shearer MD Ordering Physician: Clara Shearer MD Date of Service: 11/16/23 Procedure(s): XR thoracic spine 2V Accession Number(s): [id number] cc: Clara Shearer MD EXAMINATION: XR THORACOLUMBAR SPINE CLINICAL INFORMATION: Pain COMPARISON: None available. TECHNIQUE: 3 views of the dorsal spine FINDINGS: The vertebral alignment is normal. No intrinsic bony abnormality. The disc heights and neural foramina are well maintained. The endplates and posterior elements are normal. No fracture or subluxation. The surrounding prevertebral soft tissues are unremarkable. Incidental note made of postsurgical changes in the chest with sternotomy wires and valve replacement. XR/XR thoracic spine 2V IMPRESSION: Dorsal spine normal. Dictated By: Easton Campos MD Signed By: <Electronically signed by Easton Campos MD inOV> 11/25/23 0815 DD/ 1549 TD/TT: Senior Applications Architect: QUINN Clara Shearer MD IMG XR PROCEDURES Edited Result - Final documented in this encounter Visit Diagnoses Diagnosis Right hip pain- Primary Pain in joint, pelvic region and thigh Chronic right-sided low back pain, unspecified whether sciatica present Abnormal x-ray Other nonspecific (abnormal) findings on radiological and other examinations of body structure Abnormal x-ray of thoracic spine documented in this encounter Additional Health Concerns Assessment Noted Time PHQ-9 Depression Total Score: 0 10/17/19 24 3:45 PM EDT documented as of this encounter Care Teams Cyber Security Administrator Relationship Specialty Start Date End Date Clara Shearer MD [address] [place] [address] PCP - General Family Medicine 07/24/18 documented as of this encounter
--- OUTSIDE RECORDS SUMMARY | 2024-09-26 19:17 | XMS_ITS | Encounter Summary ---
Author Organization [employer] Address [address] [facility] 7t [place] [address] Care Team Providers Care Compensation Intern Name Role Phone Clara Shearer MD Primary Care Provider [phone] Reason for Visit * Reason Onset Date Comments pre medi antibiotic 09/02/2024 Encounter Details Date Type Department Care Team (Late st Contact Info) Description 09/02/2024 Telephone [facility] ADULT D[facility] [address] [place] [address] LynDaina Huffman, DDS [address] [place] [address] pre medi antibiotic Social History Tobacco Use Types Packs/Day Years [...] encounter Miscellaneous Notes * Telephone Encounter - Carlo Alcala - 09/05/2024 8:38 AM EST called pt to inform her that her insurance was not active for today visit.Pt will be calling us back to schedule her appointment once she becomes active with her insurance. * Telephone Encounter - Socorro Garrett - 09/02/2024 9:27 AM EST Patient is calling in as she has an appt 09/05 and needs pre med sent to pharmacy prior to dental treatment. Patient has already received a call that her other medications are ready at the pharmacy and is trying to take care of it in one shot as she is driving in from [place]. Can medication be sent to pharmacy DR documented in this encounter Plan of Treatment Upcoming Encounters Date Type Department Care Team (Late st Contact Info) Description 10/07/2024 11:15 AM EDT Office Visit [facility] [address] [place] [address] Clara Shearer MD [address] [place] [address] 10/31/2024 2:00 PM EDT Office Visit [facility]ULT D[facility] [address] [place], [place] [phone] Olga, Katt [address] [place] [address] documented as of this encounter Visit Diagnoses Not on filedocumented in this encounter Additional Health Concerns Assessment Noted Time PHQ-9 Depression Total Score: 0 10/17/19 24 3:45 PM EDT documented as of this encounter Care Teams Compensation Intern Relationship Specialty Start Date End Date Clara Shearer MD [address] [place] [address] PCP - General Family Medicine 07/24/18 documented as of this encounter
== END 2024-09-26 16:12 | disposition home or self-care (01) ==
LOC: HO.ACS 15:59
PROVIDERS: PCP Family Medicine; Visit Provider Internal Medicine
DX: Z79.01 Long term (current) use of anticoagulants (principal)

== ENCOUNTER → 2024-09-26 15:59 | Outpatient (BNVA) | payer OTHER, SELFPAY | PROVIDERS: PCP Family Medicine; Visit Provider Internal Medicine | DX: Z95.2 Presence of prosthetic heart valve (principal); Z79.01 Long term (current) use of anticoagulants; Z51.81 Encounter for therapeutic drug level monitoring | CPT/HCPCS: 85610; 99211 ==

== ENCOUNTER 2024-09-27 11:26 | Outpatient (AMB) | payer OTHER, SELFPAY ==
--- NOTE | 2024-09-27 12:04 | MHC.OFFVIS ---
Vital Signs 09/27/24 12:05 Height 4 ft 11 in Weight 141 lb BMI 28.5 Intake Visit Reasons: Lumbar Spine MRI review Intake Note: Thalia 49 yr old turks and ca[place] islander speaking female presents today for her MRI review for her lumbar spine. Drophammer Operator Required: Yes Drophammer Operator Name: Demi SETH CAN Allergies peach Allergy (Severe, Verified 09/26/24 16:00) Angioedema No Known Drug Allergies Allergy (Unknown, Verified 09/26/24 16:00) Unknown HPI Comments Details: Chronic back pain, for at least 2 years, without inciting injuries. Right sided, non radicular to the leg, maybe to the hip at times, lateral and goes to the groin. Right big toe and 2nd toe gets numb but not associated with the back pain. She says it is separate issue. After prolonged standing, she starts to have tingling on right side back. She used to have constipation. She mentions urinary incontinence. Treatment done so far: muscle relaxer home exercises physical therapy wears a support SI joint belt Thoracic x-ray normal; pelvic x-ray shows moderate right hip arthritis; lumbar x-ray showed facet arthritis. Patient is on warfarin, history of AVR. Patient last seen in March. Complaining mainly of right-sided pain. MRI done in May but was not read until July. In the meantime, patient was also seen by ortho Maritza VELAZQUEZ for right hip pain. Patient has been in physical therapy, ongoing, at least 4 sessions so far. Here today to discuss MRI. MRI images reviewed independently, showing a left-sided L5-S1 disc herniation. No significant central spinal stenosis. She maintains today that pain is on right side. She has some pain on left side but not as bad as right and random only. 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 Patient was appropriately conversant and oriented. Good historian. MSK: No specific abnormalities found on inspection of the spine and all extremities. More diffusely tender today, mostly right side, quadratus lumborum. Bilateral SI joints are tender. Lumbar ROM was full. Bilateral hip, knee and ankle ROM WNL. No ligamentous laxity or crepitance. No increased effusion. Slump sit negative. Strength is 5/5 in all muscle groups tested. No increased tone noted. Neurological: Neurologic examination of the upper and lower extremities was nonfocal with intact sensation, muscle stretch reflexes and without focal motor deficits . Farrell?s negative bilaterally. Babinski was down going bilaterally. Clonus was negative. Gait is non-antalgic without loss of balance. Results Reviewed Results Reviewed: I independently reviewed the results of the following: Lumbar MRI as above Ordering Physician: Angeline Mc Date of Service: 06/16/24 Procedure(s): MR lumbar spine con Accession Number(s): [id number] cc: Angeline Mc; Clara Shearer MD~ EXAMINATION: MR LUMBAR SPINE WITHOUT CONTRAST CLINICAL INFORMATION: 49-year-old with radiculopathy, lumbar region. Evaluate for L5-S1 with disc herniation. COMPARISON: US Pelvic 07/29/2019. TECHNIQUE: MRI of the lumbar spine was obtained using routine sequences without contrast. FINDINGS: CORONAL ALIGNMENT: Normal. SAGITTAL ALIGNMENT: Normal. LUMBOSACRAL JUNCTION: Transitional lumbosacral anatomy with lowest lumbar-like segment labeled as S1, with the S1-S2 intervertebral disc space being a transitional level. VERTEBRAL BODIES: Vertebral body heights are well maintained. DISC SPACES AND ENDPLATES: Intradiscal degenerative signal changes are noted at L4-L5 and L5-S1 with a Schmorl's node along the superior endplate of L5 and a Schmorl's node at the posterosuperior corner of S1. No significant spondylosis. There is minor anterior marginal endplate spurring involving the inferior endplate of T12. SPINAL CANAL: Tiny fibrolipoma of the filum terminale noted, normal variant. 1 cm Tarlov cysts in the sacral canal at the S2-S3 level. BONE MARROW: Mild type I degenerative marrow signal changes noted along the endplates at L4-L5 and along the anteroinferior corner of T12. Otherwise, bone marrow signal intensity is within normal limits. CONUS MEDULLARIS: Terminates at L1-L2. Morphology and signal is normal. INTRADURAL NERVE ROOTS: Within normal limits. L5-S1: Mild disc bulging with a shallow superimposed left subarticular disc protrusion with mild indentation of the ventral thecal sac slightly asymmetric to the left of midline with mild encroachment on the traversing left S1 nerve root. Mild facet joint arthropathy noted with no significant central canal stenosis. Slight narrowing of the left subarticular zone is noted. There is minor foraminal narrowing noted on the right. L4-L5: Mild diffuse disc bulging is noted with central annular fissuring and mild indentation of the ventral thecal sac. No significant facet joint arthrosis, canal or neural foraminal stenosis. L3-L4 through L1-L2: Normal annular contours. No significant facet joint arthrosis, canal or neural foraminal stenosis at these levels. PARAVERTEBRAL AND INCLUDED EXTRASPINAL SOFT TISSUES: The visualized paravertebral soft tissues and included retroperitoneal structures are unremarkable within the limitations of the exam. Limited views of the pelvis demonstrate the presence of a 4.5 cm, partially included cystic structure in the expected location of the right adnexa, likely an ovarian cyst, which is consistent with the report of the previous pelvic ultrasound from 07/29/2019. MR/MR lumbar spine wo con IMPRESSION: 1. Discogenic degenerative changes at L4-L5 and L5-S1 with S1 being a transitional level. 2. Disc bulging and left subarticular disc protrusion at L5-S1 with mild narrowing of the left subarticular zone with possible mild encroachment on the traversing left S1 nerve root. 3. Disc bulging at L4-L5 with central annular fissuring without spinal canal or neural foraminal stenosis. 4. Mild facet joint arthropathy at L5-S1 and minor anterior marginal spondylosis at T12-L1. 5. A 4.5 cm partially included cystic structure in the right adnexa, likely an ovarian cyst, which is consistent with the report of the previous pelvic ultrasound from 07/29/2019. If clinically warranted, this can be reassessed with follow-up pelvic ultrasound. I reviewed records from the following: Ortho Assessment & Plan Assessment & Plan (1) Myofascial pain: Code(s): M79.18 - Myalgia, other site Category: Medical (2) Sacroiliac joint dysfunction of both sides: Code(s): M53.3 - Sacrococcygeal disorders, not elsewhere classified Category: Medical (3) Lumbar disc herniation: Code(s): M51.26 - Other intervertebral disc displacement, lumbar region Category: Medical Plan Patient has left-sided L5-S1 disc herniation but her symptoms are not consistent with it. Most of her pain is right-sided. Her symptoms I suspect is more myofascial and from SI joint dysfunction. Continue physical therapy. New order/referral placed so they can continue therapy, and work on quadratus lumborum muscles. Please work on SI joints. Continue physical therapy 2-3 sessions a week 8-12 weeks. Assessment and plan discussed with patient, and patient was agreeable. All questions were answered thoroughly. Follow up 3 months. Angeline Ochoa MD, TAYE Board Certified, [place] Board of Physical Medicine and Rehabilitation (ABPMR) Board Certified, [place] Board of Electrodiagnostic Medicine (ABEM) Orders: Orders PT Evaluation and Treatment Today M51.26 - Other intervertebral disc displacement, lumbar region, M53.3 - Sacrococcygeal disorders, not elsewhere classified, M79.18 - Myalgia, other site Coding Level of Care Code Est Pt Level 4 (05821) Diagnoses Myofascial pain M79.18 Sacroiliac joint dysfunction of both sides M53.3 Lumbar disc herniation M51.26
[2024-09-27 12:05] VITALS: BMI 28.5
--- OUTSIDE RECORDS SUMMARY | 2024-09-27 13:21 | XMS_ITS | Encounter Summary ---
Author Organization [employer] Address [address] [facility] 7t [place] [address] Care Team Providers Care Cantilever Crane Operator Name Role Phone Clara Shearer MD Primary Care Provider [phone] Encounter Details Date Type Department Care Team ([facility] st Contact Info) Description 01/22/2024 Orders Only [facility] MEDICINE [address] [place], [place] [phone] Clara Shearer MD [address] [place], [place] [phone] History of mechanical aortic valve replacement Social [...] Description 10/07/2024 11:15 AM EDT Office Visit [facility] MEDICINE [address] [place] [address] Clara Shearer MD [address] [place] [address] 10/31/2024 2:00 PM EDT Office Visit [facility] ADULT DENTAL [address] [place] [address] Olga, Katt [address] [place] [address] documented as of this encounter Visit Diagnoses Diagnosis History of mechanical aortic valve replacement documented in this encounter Additional Health Concerns Assessment Noted Time PHQ-9 Depression Total Score: 0 10/17/19 24 3:45 PM EDT documented as of this encounter Care Teams Cantilever Crane Operator Relationship Specialty Start Date End Date Clara Shearer MD [address] [place] [address] PCP - General Family Medicine 07/24/18 documented as of this encounter
--- OUTSIDE RECORDS SUMMARY | 2024-09-27 13:21 | XMS_ITS | Encounter Summary ---
Author Organization [employer] Address [address] [place] [address] 7 [place] [address] Care Team Providers Care Sales Account Representative Name Role Phone Clara Shearer MD Primary Care Provider [phone] Reason for Referral * Imaging (Routine) - Closed Specialty Diagnoses / Procedures Referred By Ron brewer Referred To Contact Radiology Diagnoses Metabolic dysfunction-associated steatotic liver disease (MASLD) Procedures US Abdomen Comp w elastography Clara Shearer MD [address] [place] [address] Phone: tel: fax: [address] Phone: tel: fax: Referral ID Status Reason Start Date Expiration Date Visits Re quested Visits Authorized [id number] Closed 11/17/2023 11/16/2024 1 1 Encounter Details Date Type Department Care Team (Late st Contact Info) Description 11/17/2023 Orders Only [facility] MEDICINE [address] [place], [place] [phone] Clara Shearer MD [address] [place], [place] [phone] Metabolic dysfunction-associated steatotic liver disease (MASLD) (Primary [...] Description 10/07/2024 11:15 AM EDT Office Visit [facility] MEDICINE [address] [place] [address] Clara Shearer MD [address] [place] [address] 10/31/2024 2:00 PM EDT Office Visit [facility] ADULT DENTAL [address] [place] [address] Katt Espinoza [address] [place] [address] documented as of this encounter Procedures Procedure Name Priority Date/Time Associated Diagnosis Comments US ABDOMEN COMPLETE WITH ELASTOGRAPHY Routine 12/05/2023 9:26 AM EDT Metabolic dysfunction-associa ebony steatotic liver disease (MASLD) documented in this encounter Results * US Abdomen Comp w elastography (12/05/2023 9:26 AM EDT) Anatomical Region Laterality Modality Abdomen Ultrasound 12/05/2023 9:26 AM EDT Narrative 12/12/2023 9:41 AM EDT ? [facility] ?[address] ?[place] [address] ? Ultrasound Report ? Signed ? Patient: LindaphillipMarktwin ?MR#: [id number] ?? 2088 ? : 1975 ?Acct:[id number] ? Age/Sex: 48 / F ?ADM Date: 12/05/23 ? Loc: HO.US ? Attending Dr: Clara Shearer MD ? Ordering Physician: Clara Shearer MD ?? Date of Service: 12/05/23 ?? Procedure(s): US abdomen comp w elastography ?? Accession Number(s): [id number] ? cc: Clara Shearer MD ? EXAMINATION: [...] 0937 ? DD/ 0926 ? TD/TT: ? Housing Management Representative: SS ? Procedure Note Ailin, Image - 12/12/2023 [place] [address] Ultrasound Report Signed Patient: Yoel Martell#: [id number] 2088 : 1975Acct:[id number] Age/Sex: 48 / FADM Date: 12/05/23 Loc: HO.US Attending Dr: Clara Shearer MD Ordering Physician: Clara Shearer MD Date of Service: 12/05/23 Procedure(s): US abdomen comp w elastography Accession Number(s): [id number] cc: Clara Shearer MD EXAMINATION: US COMPLETE [...] MD in OV> 12/12/23936 DD/ 5 TD/TT: Housing Management Representative: VICTORINO us Clara Shearer MD IMG US PROCEDURES Final Result documented in this encounter Visit Diagnoses Diagnosis Metabolic dysfunction-associated steatotic liver disease (MASLD)- Primary documented in this encounter Additional Health Concerns Assessment Noted Time PHQ-9 Depression Total Score: 0 10/17/19 24 3:45 PM EDT documented as of this encounter Care Teams Sales Account Representative Relationship Specialty Start Date End Date Clara Shearer MD [address] [place] [address] PCP - General Family Medicine 07/24/18 documented as of this encounter
--- OUTSIDE RECORDS SUMMARY | 2024-09-27 13:21 | XMS_ITS | Referral Summary ---
Author Organization [facility] Address [address] [place] [address] Care Team Providers Care Plasterer Spray Gun Name Role Phone Manfred Clara Primary Care Provider [phone] Allergies No known active allergies Medications aspirin [...] Not on file Procedures * Due to [place] state law, this organization might not be sharing negative HIV tests. Procedure Name Priority Date/Time Associated Diagnosis Comments PAP Routine 12/17/2020 2:37 PM EDT Hematometra from Last 3 Months or Most Recently Relevant to Health Maintenance Insurance [facility] HS/FREE [place] [address] [address] Care Teams Plasterer Spray Gun Relationship Specialty Start Date End Date Clara Shearer [address] [place] [address] PCP - General Family Medicine 05/26/20
--- OUTSIDE RECORDS SUMMARY | 2024-09-27 13:21 | XMS_ITS | Encounter Summary ---
Author Organization [employer] Address [address] [facility] 7t [place] [address] Care Team Providers Care Clinical Dietetic Technician Name Role Phone Clara Shearer MD Primary Care Provider [phone] Encounter Details Date Type Department Care Team [...] Description 10/07/2024 11:15 AM EDT Office Visit [facility] [address] [place] [address] Clara Shearer MD [address] [place] [address] 10/31/2024 2:00 PM EDT Office Visit [facility] ADULT DENTAL [address] [place] [address] Olga, Katt [address] [place] [address] documented as of this encounter Procedures Procedure Name Priority Date/Time Associated Diagnosis Comments PROTHROMBIN TIME WHOLE BLD POC Routine 09/26/2024 4:03 PM EST ~PT, ~INR - ANTI COAG CLINIC Routine 09/26/2024 4:03 PM EST documented in this encounter Results * (ABNORMAL) PROTHROMBIN TIME WHOLE BLD POC (09/26/2024 4:03 PM EST) Protime 44.2(H) 11.1 - 13.5 sec [facility] 09/26/2024 4:03 PM EST 09/26/2024 4:04 PM EST us Generic External Data Provider LAB BLOOD ORDERAB LES Final Result Performing Organization Address [facility] Co de Phone Number [facility] [address] [place] [phone] * (ABNORMAL) ~PT, ~INR - ANTI COAG CLINIC (09/26/2024 4:03 PM EST) Prothrombin Time INR 3.7(H) 0.9 - 1.1 [facility] Comment:METER #: [id number] TERNATIONAL NORMALIZED RATIO (INR) REFERENCE RANGES Reference [...] ORDERAB LES Final Result Performing Organization Address [facility] Co de Phone Number [facility] [address] [place] [phone] documented in this encounter Visit Diagnoses Not on filedocumented in this encounter Additional Health Concerns Assessment Noted Time PHQ-9 Depression Total Score: 0 10/17/19 24 3:45 PM EDT documented as of this encounter Care Teams Clinical Dietetic Technician Relationship Specialty Start Date End Date Clara Shearer MD [address] [place] [address] PCP - General Family Medicine 07/24/18 documented as of this encounter
--- OUTSIDE RECORDS SUMMARY | 2024-09-27 13:21 | XMS_ITS | Encounter Summary ---
Author Organization [employer] Address [address] [facility] 7 [place] [address] Care Team Providers Care Inclusion Manager Name Role Phone Clara Shearer MD Primary Care Provider [phone] Reason for Referral * Consultation (Routine) - Closed Specialty Diagnoses / Procedures Referred By Ron brewer Referred To Contact Physical Therapy Diagnoses Right hip pain Chronic right-sided low back pain, unspecified whether sciatica present Clara Shearer MD [address] [place] [address] Phone: tel: fax: AT Physical Therapy - [address] [address] Phone: tel: fax: Referral ID Status Reason Start Date Expiration Date V isits Requested Visits Authorized [id number] Closed Specialty Services Required 11/14/2023 11/13/2024 1 1 Encounter Details Date Type Department Care Team (Late st Contact Info) Description 11/14/2023 Orders Only [facility] [address] [place], [place] [phone] Clara Shearer MD [address] [place], [place] [phone] Right hip pain (Primary Dx); Chronic right-sided [...] Office Visit [facility] MEDICINE [address] [place] [address] Clara Shearer MD [address] [place] [address] 10/31/2024 2:00 PM EDT Office Visit [facility] ADULT DENTAL [address] [place] [address] Katt Espinoza [address] [place] [address] Scheduled Referrals Name Type Priority Associated Diagnoses [...] EDT Narrative 11/25/2023 8:18 AM EDT ? [facility] ?[address] ?[place] [address] ?XRay Report ? Signed ? Patient: Thalia Martell ?MR#: [id number] ?? 2088 ? : 1975 ?Acct:[id number] ? Age/Sex: 48 / F ?ADM Date: 11/16/23 ? Loc: HO.XRAY ? Attending Dr: Clara Shearer MD ? Ordering Physician: Clara Shearer MD ?? Date of Service: 11/16/23 ?? Procedure(s): XR thoracic spine 2V ?? Accession Number(s): [id number] ? cc: Clara Shearer MD ? EXAMINATION: [...] ?11/25/2315 ? DD/ 1549 ? TD/TT: ? Speech Therapy Teacher: QUINN ? Procedure Note Donhuyter, Image - 11/25/[address] [address] XRay Report Signed Patient: Yoel Martell#: [id number] 2088 : 1975Acct:[id number] Age/Sex: 48 / FADM Date: 11/16/23 Loc: VICKIE Attending Dr: Clara Shearer MD Ordering Physician: Clara Shearer MD Date of Service: 11/16/23 Procedure(s): XR thoracic spine 2V Accession Number(s): [id number] cc: Clara Shearer MD EXAMINATION: XR THORACOLUMBAR [...] MD inOV> 11/25/23 0815 DD/ 1549 TD/TT: Speech Therapy Teacher: QUINN Clara Shearer MD IMG XR PROCEDURES [...] documented as of this encounter Care Teams Inclusion Manager Relationship Specialty Start Date End Date Clara Shearer MD [address] [place] [address] PCP - General Family Medicine 07/24/18 documented as of this encounter
--- OUTSIDE RECORDS SUMMARY | 2024-09-27 13:21 | XMS_ITS | Encounter Summary ---
Author Organization [id number] [facility] Address [address] [facility] 7t [place] [address] Care Team Providers Care Hemmer Automatic Name Role Phone Clara Shearer MD Primary Care Provider [phone] Encounter Details Date Type Department Care Team (Late st Contact Info) Description 07/20/2022 Abstract [facility] MEDICINE [address] [place] [phone] Clara Shearer MD [address] [place] [address] Social History Tobacco Use Types Packs/Day Years [...] AM EDT Office Visit [facility]INE [address] [place] [phone] Clara Shearer MD [address] [place] [address] 10/31/2024 2:00 PM EDT Office Visit [facility] ADULT DENTAL [address] [place] [phone] Katt Espinoza [address] [place] [address] documented as of this encounter Visit Diagnoses Not on filedocumented in this encounter Care Teams Hemmer Automatic Relationship Specialty Start Date End Date Clara Shearer MD [address] [place] [address] [place] [address] PCP - General Family Medicine 07/24/18 documented as of this encounter
--- OUTSIDE RECORDS SUMMARY | 2024-09-27 13:21 | XMS_ITS | Encounter Summary ---
Author Organization [employer] Address [address] [facility] 7t [place] [address] Care Team Providers Care Potato Picker Name Role Phone Clara Shearer MD Primary Care Provider [phone] Reason for Visit * Reason Onset Date Comments rs otf 05/22/2023 Encounter Details Date Type Department Care Team (Late st Contact Info) Description 05/22/2023 Telephone [facility] ADULT DENTAL [address] [place], [place] [phone] Olga, Katt [address] [place] [address] rs prophy Social History Tobacco Use Types [...] Description 10/07/2024 11:15 AM EDT Office Visit [facility] MEDICINE [address] [place] [address] Clara Shearer MD [address] [place] [address] 10/31/2024 2:00 PM EDT Office Visit [facility] ADULT DENTAL [address] [place] [address] Katt Espinoza [address] [place] [address] documented as of this encounter Visit Diagnoses Not on filedocumented in this encounter Additional Health Concerns Assessment Noted Time PHQ-9 Depression Total Score: 5 03/07/20 23 3:27 PM EDT documented as of this encounter Care Teams Potato Picker Relationship Specialty Start Date End Date Clara Shearer MD [address] [place] [address] PCP - General Family Medicine 07/24/18 documented as of this encounter
--- OUTSIDE RECORDS SUMMARY | 2024-09-27 13:21 | XMS_ITS | Encounter Summary ---
Author Organization [employer] Address [address] [facility] 7t [place] [address] Care Team Providers Care Children'S Lunchroom Supervisor Name Role Phone Clara Shearer MD Primary Care Provider [phone] Reason for Visit * Reason Onset Date Comments Nurse Triage 06/05/2023 Encounter Details Date Type Department Care Team ([facility] st Contact Info) Description 06/05/2023 Telephone [facility] MEDICINE [address] [place], [place] [phone] Clara Shearer MD [address] [place], [place] [phone] Nurse Triage Social History Tobacco Use Types [...] 06/05/2023 4:47 PM EST Triage call with Chlorine Genie Allergist/Immunologist Physician ID [id number] Pt reports headaches which have started 2 [...] to try this. Pt will come to [facility] tomorrow 06/06/23 to be seen by [...] Nausea as well Please contact pt at [phone] Yemeni Speaker. documented in this encounter Plan of Treatment Upcoming Encounters Date Type Department Care Team (Late st Contact Info) Description 10/07/2024 11:15 AM EDT Office Visit [facility] MEDICINE [address] [place] [address] Clara Shearer MD [address] [place] [address] 10/31/2024 2:00 PM EDT Office Visit [facility] ADULT DENTAL [address] [place] [address] Katt Espinoza [address] [place] [address] documented as of this encounter Visit Diagnoses Not on filedocumented in this encounter Additional Health Concerns Assessment Noted Time PHQ-9 Depression Total Score: 5 03/07/20 23 3:27 PM EDT documented as of this encounter Care Teams Children'S Lunchroom Supervisor Relationship Specialty Start Date End Date Clara Shearer MD [address] [place] [address] PCP - General Family Medicine 07/24/18 documented as of this encounter
--- OUTSIDE RECORDS SUMMARY | 2024-09-27 13:21 | XMS_ITS | Clinical Summary ---
Author Organization [employer] Address [address] [facility] 7t [place] [address] Care Team Providers Care File Drawer Finisher Name Role Phone Clara Shearer MD Primary Care Provider [phone] Allergies No known active allergies Medications docusate [...] has sleep study which was ordered by emission technician. Patient was referred to sleep medicine specialist [...] PT with minimal improvement - evaluated by [facility] orthopedist in March 2024. MRI was ordered and patient was referred to [facility] for injection treatment. - patient has received 3 injection treatments with no improvement - patient was advised to contact [facility] orthopedist to inquire MRI Assessment & [...] pancreatitis in November 2022 - following with [facility] GI, last seen in Feb 2023 [...] on warfarin - previously prescribed metoprolol by emission technician; no longer on the medication due to hypotension / dizziness - continue following with emission technician, [facility] Dr Haynes - last TTE in January 2022, mild mitral valve stenosis - continue current treatment plan per cardiology Assessment & Plan (03/19/2023 1:47 PM EDT): - s/p AVR in Feb 2010 - on warfarin - previously prescribed metoprolol by emission technician; no longer on the medication due to hypotension / dizziness - continue following with emission technician, [facility] Dr Haynes - last TTE in January 2022, mild mitral valve stenosis - continue current treatment plan per cardiology Assessment & Plan (11/22/2022 11:35 AM EDT): - s/p AVR in Feb 2010 - on warfarin - previously prescribed metoprolol by emission technician; no longer on the medication due to hypotension / dizziness - continue following with emission technician, [facility] Dr Haynes - last TTE in January 2022, mild mitral valve stenosis - continue current treatment plan per cardiology Chronic anticoagulation 11/22/2022 Assessment & Plan (05/30/2024 1:41 PM EST): - indication: Aortic valve replacement - medication warfarin - goal INR 2-3 - followed by [facility] anticoagulation clinic - last INR was 2.0 on 03/01/23 - continue current management plan Assessment & Plan (03/19/2023 1:49 PM EDT): - indication: Aortic valve replacement - medication warfarin - goal INR 2-3 - followed by [facility] anticoagulation clinic - last INR was 2.0 on 03/01/23 - continue current management plan Assessment & Plan (11/22/2022 11:40 AM EDT): - indication: Aortic valve replacement - medication warfarin - goal INR 2-3 - followed by [facility] anticoagulation clinic - last INR was [...] polyp, benign -Pt has follow-up appointment with HEALTHCARE ECONOMICS MANAGER -Pt is on Coumadin -Pt requested Hysterectomy, pt will follow-up with HEALTHCARE ECONOMICS MANAGER with possible hysterectomy in future Assessment & Plan (11/08/2022 4:50 PM EDT): s/p Endometrial Curetting's, polyp, benign -Pt has follow-up appointment with HEALTHCARE ECONOMICS MANAGER -Pt is on Coumadin -Pt requested Hysterectomy, pt will follow-up with HEALTHCARE ECONOMICS MANAGER with possible hysterectomy in future Cyst of ovary 09/22/2022 Iron deficiency anemia due to chronic blood loss 09/22/2022 Assessment & Plan (05/30/2024 1:41 PM EST): - AUB in a setting of anticoagulation - s/p removal of endometrial polyp, benign - Pt has follow-up appointment with HEALTHCARE ECONOMICS MANAGER - Pt is taking Coumadin Assessment & Plan (11/03/2023 12:09 PM EDT): - AUB in a setting of anticoagulation - s/p removal of endometrial polyp, benign -Pt has follow-up appointment with HEALTHCARE ECONOMICS MANAGER -Pt is taking Coumadin Assessment & Plan (11/08/2022 4:45 PM EDT): Due to AUB: S/p Endometrial Curetting's, polyp, benign -Pt has follow-up appointment with HEALTHCARE ECONOMICS MANAGER -Pt is taking Coumadin Vitamin D deficiency 12/04/2018 Assessment & Plan (11/03/2023 12:08 PM EDT): -continue vitamin D supplement Presence of subdermal contraceptive implant 09/2014 History of mechanical aortic valve replacement 0 04/07/2015 Assessment & Plan (05/30/2024 12:22 PM EST): - 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 Mechanical aortic valve functioning normally. Moderate mitral valve stenosis. No regurgitation. - Continue warfarin - Continue SBE prophylaxis. Assessment & Plan (11/03/2023 12:18 PM EDT): - Reach Truck Operator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 Mechanical aortic valve functioning normally. Moderate mitral valve stenosis. No regurgitation. - Continue warfarin - Continue SBE prophylaxis. 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 Dallas Duran, last seen in Jul 2022 - s/p AVR for rheumatic disease and aortic regurgitation in Feb 2010 - EKG showed sinus rhythm and RBBB - echocardiogram JANUARY 2022 nml LVEF 60-65%; mild mitral valve stenosis - Continue aspirin and warfarin, per cardiology. - Continue SBE prophylaxis. Assessment & Plan (11/22/2022 11:37 AM EDT): - Reach Truck Operator: Dr. Dallas Duran, last seen in Jul [...] & Plan (05/30/2024 12:22 PM EST): - [facility]ach Truck [facility] last seen in December 2023 - s/p AVR for rheumatic disease and aortic regurgitation due to rheumatic heart disease in Feb 2010 - EKG showed sinus rhythm and RBBB - echocardiogram in Aug 2023, EF 59%. Normally functioning AV. Moderate mitral valve stenosis. - Continue warfarin, per cardiology. - Continue SBE prophylaxis. 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 Normally functioning AV. Moderate mitral valve stenosis. - Continue warfarin, per cardiology. - Continue SBE prophylaxis. Assessment & Plan (11/22/2022 11:36 AM EDT): - 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 Haynes, last seen in Jul [...] EDT): - 12/03/[address] [facility]. WBC 13k, Lipase 247, CT showed pancreatitis. Given IVF and analgesics. - Seen by [facility] GI in December 2022 - MRI on 03/01/23 was normal. - HgbA1C 5.9% - Follow recommendations per GI. Menometrorrhagia 09/22/2022 03/07/2023 Pain in female pelvis 09/22/20222022 Encounters Date Type Department Care Team Description 09/26/2024 Orders Only GENERIC EXTERNAL DATA DEPARTMENT Provider, Generic External Data 09/02/2024 Orders Only [facility] [address] [place] [address] Daina Mccollum, DDS 09/02/2024 Telephone [facility] [address] [place] [address] Lyn-Méndez Daina, DDS pre medi antibiotic 08/28/2024 Orders Only GENERIC EXTERNAL DATA DEPARTMENT Provider, Generic External Data 08/08/2024 Telephone [facility] MED[facility] [address] [place] [address] Faina Gayle MA august recall 07/31/2024 Orders Only GENERIC EXTERNAL DATA DEPARTMENT Provider, Generic External Data 07/08/2024 Telephone [facility] [address] [place] [address] Clara Shearer MD Durable Medical Equipment 07/05/2024 Telephone [facility] [address] [place] [address] Maddy Corcoran, rubber attacher from Last 3 Months Immunizations Name Administration Dates Next Due Hep B, adult 05/09/2023,12/07/2022,11/08/2022 Influenza Injectable Quadriv alant Preservative Free IIV4 MDCK 07/02/2018,08/02/2016,10/30/2014 Influenza injectable quadriv alent IIV4 with preservative 07/11/2017,04/07/2015 Influenza injectable quadriv alent preservative free 05/09/2023,07/12/2021,07/02/2018,07/11,08/02/2016,04/07/2015,10/30/2014 Influenza, IIV3, injectable 04/06/2011 Influenza, Split (incl. daev fied surface antigen) 07/25/2013,10/08/2012 Influenza, Unspecified 07/25/2013,10/08/2012, [...] Office Visit [facility] [address] [place] [address] Clara Shearer MD [address] [place] [address] 10/31/2024 2:00 PM EDT Office Visit [facility]ULT [facility] [address] [place] [address] Katt Espinoza [address] [place] [address] Health Maintenance Due Date Last Done Comments [...] included. Protime 44.2(H) 11.1 - 13.5 sec [facility] 09/26/2024 4:03 PM EST 09/26/2024 4:04 PM EST Generic External Data Provider LAB BLOOD ORDERAB LES Final Result Performing Organization Address City/[facility]/ZIP Co de Phone Number [facility] [address] [place] [address] [phone] * (ABNORMAL) ~PT, ~INR - ANTI COAG CLINIC (09/26/2024 4:03 PM EST) Only the most recent of3 resultswithin the time period is included. Prothrombin Time INR 3.7(H) 0.9 - 1.1 [facility] Comment:METER #: [id number] TERNATIONAL NORMALIZED RATIO (INR) REFERENCE RANGES Reference [...] ORDERAB LES Final Result Performing Organization Address [facility]/ZIP Co de Phone Number [facility] [address] [place] [phone] * Hepatitis Panel, General (12/11/2023 4:30 PM EDT) Hepatitis A IgM Nonreactive Nonreactive [facility] Comment:IgM antibodies to HEMPHILL V not detected; does not exclude earlyacute or recovered HAV infection. ~Hepatitis B Surface Antibody REACTIVE Nonreactive [facility] Comment:REACTIVE: > 11.99 mI U/mL Hepatitis B Core Antibody Nonreactive Nonreactive [facility] Hepatitis C Antibody Nonreactive Nonreactive [facility] Comment:Antibodies to HCV no t detected; does not exclude early acuteHCV infection. Hepatitis B Surface Ag Negative Negative [facility] 12/11/2023 4:30 PM EDT 12/11/2023 4:33 PM EDT us Generic External Data Provider LAB BLOOD ORDERAB LES Final Result Performing Organization Address [facility] Co de Phone Number [facility] [address] [place] [phone] * Hemoglobin A1c (12/11/2023 4:30 PM EDT) Hemoglobin A1c 5.7 <6.0 % [facility] Comment:Hemoglobin A1C Refer ence Range Adults: 4.8 - 6.0 % Non diabetic: < 6.0 % Goal: < 7.0 %Additional Action Suggested: > 8.0 %Note: Hemoglobin A1c results are invalid for patients with abnormal amounts of HbF. Blood transfusions may impact the HbA1c concentration in the patient sample. Estimated Average Glucose 117 mg/dL [facility] Comment:eAG = Estimated ave rage glucose which is %A1C expressed asaverage glucose, using the formula of the [id number] Glucose study (ADAG), Diabetes Care, Vol.31,#8,Feb. 2007 12/11/2023 4:30 PM EDT 12/11/2023 4:33 PM EDT us Generic External Data Provider LAB BLOOD ORDERAB LES Final Result Performing Organization Address [facility] Co de Phone Number [facility] [address] [place] [phone] * (ABNORMAL) Lipid Panel with Reflex to Direct LDL (11/16/2023 3:27 PM EDT) Triglycerides 305(H) <150 mg/dL [facility] Comment:Desirable Triglyceri de: less than 150 mg/dLBorderline High Triglyceride 150-199 mg/dLHigh Triglyceride: 200-499 mg/dLVery High Triglyceride: greater than or equal to 5OO mg/dL Cholesterol 220(H) <200 mg/dL [facility] Comment:Desirable Cholestero l: less than 200 mg/dLBorderline High Cholesterol: 200-239 mg/dLHigh Cholesterol: greater than 239 mg/dL LDL Cholesterol Calculated 111(H) <100 mg/dL [facility] Comment:Desirable LDL: less than 100 mg/dLNear Optimal/Above Optimal LDL: 110- 129 mg/dLBorderline High LDL: 130-159 mg/dLHigh LDL: 160-189 mg/dLVery High LDL: greater than or equal to 190 mg/dL HDL Cholesterol 48 >40 mg/dL [facility] Comment:Desirable HDL: great er than 40 mg/dL Note: This HDL assay may give artificially low results in patients with liver disease. Blood 11/16/2023 3:27 PM EDT 11/16/2023 3:27 PM EDT us Clara Shearer MD LAB BLOOD ORDERABLES Final Resul t [facility] [address] [place] [phone] * BI Mammogram Screening Tomosynthesis Bilateral (12/23/2022 4:40 PM EDT) Anatomical Region Laterality Modality Breast Bilateral Mammography 12/23/2022 4:40 PM EDT Narrative 12/26/2022 8:07 AM EDT ? [facility] ? [address] ?[place] [address] ? Mammography Report ? Signed ? Patient: Caizan,Gerardina ?MR#: [id number] ?? [id number] ? : 1975 ?Acct:[id number] ? Age/Sex: 47 / F ?ADM Date: //23 ? Loc: HO.MAMMO ? Attending Dr: Clara Shearer MD ? Ordering Physician: Clara Shearer MD ?Results: 1Negative ? Date of Service: 12/23/22 ?Follow Up: 1 Year From Orig ?? inal Mammogram ? Procedure(s): MM tomosynthesis screening BI ?? Accession Number(s): [id number] ? cc: Claar Shearer MD ? EXAMINATION: ?? MM SCREENING [...] ?12/26/22803 ? DD/ 1640 ? TD/TT: ? [employer] Supervisor: CHO ? Procedure Note Donotuseinterpreter, Image - [facility] [address] [place] [address] Mammography Report Signed Patient: Yoel Martell#: [id number] : 1975Acct:[id number] Age/Sex: 47 / FADM Date: 12/23/22 Loc: MAMMO Attending Dr: Clara Shearer MD Ordering Physician: Clara Shearer MDResults: 1Negative Date of Service: 12/23/22Follow Up: 1 Year From Orig inal Mammogram Procedure(s): MM tomosynthesis screening BI Accession Number(s): [id number] cc: Clara Shearer MD EXAMINATION: MM SCREENING [...] in OV> 12/26/22 0804 DD/ 1640 TD/TT: [employer] Supervisor: CHO [facility] External Provider IMG BI PROCEDURES Final Result * HIV-1 RNA, Quantitative, Real-Time PCR (12/15/2022 8:09 AM EDT) Pathologist [facility] HIV 1 RNA, QN PCR NOT DETECTED NOT DETECTED copies/mL [facility] [place] [facility] HIV 1 RNA, QN PCR NOT DETECTED NOT DETECTED Log copies/mL [facility] [place] [facility] Comment: This test was performed using Real-Time Polymerase Chain Reaction. Reportable Range: 20 copies/mL to 10,000,000 copies/mL (1.30 log copies/mL to 7.00 log copies/mL). Blood Venous blood specimen / Unknown 12/15/2022 8:09 AM EDT 12/15/2022 8:10 AM EDT Narrative [facility] - 12/23/2022 6:53 PM EDT FASTING:NO FASTING: NO Yany Cosby FUNERAL LOCATION MANAGER LAB BLOOD ORDERABLES Final Res ult [facility] [address], [place] [address] [facility] [place] [facility] [address] [place] [phone] * THINPREP PAP (11/13/2020 4:51 PM EDT) [...] historic and ?? current clinical information. ?? Medieval English Literature Professor : SEE COMMENT [facility] Comment: RK, CT(ASCP) CT screening location: [address] ??[phone] Interpretation/R esult: Negative for intraepithelial lesion or malignancy. [facility] LMP: NONE GIVEN [facility] Prev. BX: NONE GIVEN [facility] Prev. PAP: NONE GIVEN [facility] Review Medieval English Literature Professor : SEE COMMENT [facility] Comment: BLC,CT(ASCP) CT screening location: [address] ??[phone] SOURCE: None given [facility] Statement Of Adequacy: SEE COMMENT [facility] Comment: Satisfactory for evaluation. Endocervical/transformation zone component present. Age and/or menstrual status not provided 11/13/2020 4:51 PM EDT Ginette Her NP LAB PATHOLOGY ORDERABLES Final Result Performing Organization Address [facility] de Phone Number [facility] [address] * HPV GENOTYPES 16,18/45 (11/13/2020 4:51 PM EDT) HPV 16 RNA NOT DETECTED NOT DETECTED [facility] HPV 18/45 RNA NOT DETECTED NOT DETECTED [facility] Comment: Methodology: Inter Com Installer Mediated Amplification The analytical performance characteristics of this assay have been determined by [facility]. The modifications have not been cleared or approved by the FDA. This assay has been validated pursuant to the CLIA regulations and is used for clinical purposes. 11/13/2020 4:51 PM EDT Ginette Her NP LAB BLOOD ORDERABLES Final Resu lt Performing Organization Address [facility] Co de Phone Number [facility] [address] from Last 3 Months or Most Recently Relevant to Health Maintenance Insurance Kelsea PEREZ [address] [id number] [facility] Kelsea Perez [address] [id number] DENTAL - HSN FULL (MEDICAID) DENTAL-[facility] MEDICAID LIMITED ADULT * Guarantor: Thalia Martell Account Type Relation to Patient Date of Phone Billing Address Personal/[place] [address] Care Teams File Drawer Finisher Relationship Specialty Start Date End Date Clara Shearer MD [address] [place] [phone] PCP - General Family Medicine 07/24/18
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
--- OUTSIDE RECORDS SUMMARY | 2024-09-27 13:21 | XMS_ITS | Encounter Summary ---
Author Organization [employer] Address [address] [facility] 7 [place] [address] Care Team Providers Care Broach Grinder Name Role Phone Clara Shearer MD Primary Care Provider [phone] Reason for Visit * Reason Onset Date Comments Letter for School/Work 08/02/2022 Encounter Details Date Type Department Care Team ([facility] st Contact Info) Description 08/02/2022 Telephone [facility] [address] [place], [place] [phone] Clara Shearer MD [address] [place], [place] [phone] Letter for School/Work Social History Tobacco Use [...] a upcoming procedure on 08-19-22. Fax number [phone] Any question please contact Ambreen at [phone] ext [phone] * Telephone Encounter - Khang Garcia - 08/04/2022 2:41 PM EST Tc from pankaj with [facility] requesting a call regarding message below Please contact apnkaj at [phone] * Telephone Encounter - Ronda Mahan LPN - 08/04/2022 2:41 PM EST Kelly, this should be done upstairs we do not do letters regarding medication stop or start. Please discuss with Dr. Shearer on what she wants and you can call [facility] to fax that order/letteror if they will take verbal orders from you that is even easier. * Telephone Encounter - Kelly Campuzano RN - 08/02/2022 3:33 PM EST Pt having procedure (dilation and curettage with hysteroscopy to place mirena) at [facility] 08/19/22. They are requesting a letter stating when pt should stop and restart coumadin (how many days before and after). * Telephone Encounter - Khang Garcia - 08/02/2022 2:48 PM EST Tc from claudia with [facility] O[facility] requesting a letter stating when pt will be stopping medication ( warfarin 2 mg ) prior to OP Please contact claudia at [phone] ext [phone] documented in this encounter Plan of Treatment Upcoming Encounters Date Type Department Care Team (Late st Contact Info) Description 10/07/2024 11:15 AM EDT Office Visit [facility] [address] [place], [place] [phone] Clara Shearer MD [address] [place] [address] 10/31/2024 2:00 PM EDT Office Visit [facility] ADULT DENTAL [address] [place], [place] [phone] Jignesh Espinozaaris [address] [place] [address] documented as of this encounter Visit Diagnoses Not on filedocumented in this encounter Care Teams Broach Grinder Relationship Specialty Start Date End Date Clara Shearer MD [address] [place] [address] PCP - General Family Medicine 07/24/18 documented as of this encounter
--- OUTSIDE RECORDS SUMMARY | 2024-09-27 13:21 | XMS_ITS | Encounter Summary ---
Author Organization [facility] Address [address] [facility] 7t [place] [address] Care Team Providers Care Clubhouse Manager Name Role Phone Clara Shearer MD Primary Care Provider [phone] Encounter Details Date Type Department Care Team (Latest Contact Info) Description 09/26/2019 Abstract [facility] CON[facility] Dental, Provider, DDS Social History Tobacco [...] Description 10/07/2024 11:15 AM EDT Office Visit [facility] MEDICINE [address] [place] [address] Clara Shearer MD [address] [place] [address] 10/31/2024 2:00 PM EDT Office Visit [facility] ADULT DENTAL [address] [place] [address] Jignesh Espinozaaris [address] [place] [address] documented as of this encounter Visit Diagnoses Not on filedocumented in this encounter Care Teams Clubhouse Manager Relationship Specialty Start Date End Date Clara Shearer MD [address] [place] [address] PCP - General Family Medicine 07/24/18 documented as of this encounter
--- OUTSIDE RECORDS SUMMARY | 2024-09-27 13:21 | XMS_ITS | Encounter Summary ---
Author Organization [employer] Address 75 [facility] 7t [place] [address] Care Team Providers Care Frontend Engineer Name Role Phone Clara Shearer MD Primary Care Provider [phone] Encounter Details Date Type Department Care Team (Late st Contact Info) Description 09/02/2024 Orders Only [facility] ADULT DENTAL [address] [place], [place] [phone] Daina Mccollum, DDS [address] [place], [place] [phone] Social History Tobacco Use Types Packs/Day Years [...] Description 10/07/2024 11:15 AM EDT Office Visit [facility] MEDICINE [address] [place] [address] Clara Shearer MD 230 [place] [address] 10/31/2024 2:00 PM EDT Office Visit [facility] ADULT DENTAL [address] [place] [address] Jignesh Espinozaaris [address] [place] [address] documented as of this encounter Visit Diagnoses Not on filedocumented in this encounter Additional Health Concerns Assessment Noted Time PHQ-9 Depression Total Score: 0 10/17/19 24 3:45 PM EDT documented as of this encounter Care Teams Frontend Engineer Relationship Specialty Start Date End Date Clara Shearer MD [address] [place] [address] PCP - General Family Medicine 07/24/18 documented as of this encounter
--- OUTSIDE RECORDS SUMMARY | 2024-09-27 13:21 | XMS_ITS | Encounter Summary ---
Author Organization [employer] Address 75 [facility] 7t [place] [address] Care Team Providers Care Clinical Account Executive Name Role Phone Clara Shearer MD Primary Care Provider [phone] Encounter Details Date Type Department Care Team [...] 11:15 AM EDT Office Visit [facility] MEDICINE [address] [place] [address] Clara Shearer MD 230 [place] [address] 10/31/2024 2:00 PM EDT Office Visit [facility] ADULT DENTAL [address] [place] [address] Olga, Katt [address] [place] [address] documented as of this encounter Procedures Procedure Name Priority Date/Time Associated Diagnosis Comments PROTHROMBIN TIME WHOLE BLD POC Routine 08/28/2024 3:03 PM EST ~PT, ~INR - ANTI COAG CLINIC Routine 08/28/2024 3:03 PM EST documented in this encounter Results * (ABNORMAL) PROTHROMBIN TIME WHOLE BLD POC (08/28/2024 3:03 PM EST) Protime 25.3(H) 11.1 - 13.5 sec [facility] 08/28/2024 3:03 PM EST 08/28/2024 3:05 PM EST us Generic External Data Provider LAB BLOOD ORDERAB LES Final Result Performing Organization Address [facility] Co de Phone Number [facility] [address] [place] [phone] * (ABNORMAL) ~PT, ~INR - ANTI COAG CLINIC (08/28/2024 3:03 PM EST) Prothrombin Time INR 2.1(H) 0.9 - 1.1 [facility] Comment:METER #: [id number] TERNATIONAL NORMALIZED RATIO (INR) REFERENCE RANGES Reference [...] ORDERAB LES Final Result Performing Organization Address [facility] Co de Phone Number [facility] [address] [place] [phone] documented in this encounter Visit Diagnoses Not on filedocumented in this encounter Additional Health Concerns Assessment Noted Time PHQ-9 Depression Total Score: 0 10/17/19 24 3:45 PM EDT documented as of this encounter Care Teams Clinical Account Executive Relationship Specialty Start Date End Date Clara Shearer MD [address] [place] [address] PCP - General Family Medicine 07/24/18 documented as of this encounter
--- OUTSIDE RECORDS SUMMARY | 2024-09-27 13:21 | XMS_ITS | Clinical Summary ---
Author Organization [facility] Address [address] [place] [address] Care Team Providers Care Interventional Physiatrist Name Role Phone Manfred Clara Primary Care Provider [phone] Allergies No known active allergies Medications aspirin [...] Health Maintenance Insurance [facility] HSNO/[place] [address] Care Teams Interventional Physiatrist Relationship Specialty Start Date End Date Clara Shearer 230 [place] [address] PCP - General Family Medicine 05/26/20
== END 2024-09-27 12:19 | disposition home or self-care (01) ==
PROVIDERS: PCP Family Medicine; Visit Provider Physical Medicine & Rehabilitation
DX: M51.26 Other intervertebral disc displacement, lumbar region (principal); M79.18 Myalgia, other site; M53.3 Sacrococcygeal disorders, not elsewhere classified
CPT/HCPCS: 99214

== ENCOUNTER → 2024-09-27 11:26 | Outpatient (BNVA) | payer OTHER, SELFPAY | PROVIDERS: PCP Family Medicine; Visit Provider Physical Medicine & Rehabilitation | DX: M79.18 Myalgia, other site (principal); M53.3 Sacrococcygeal disorders, not elsewhere classified; M51.26 Other intervertebral disc displacement, lumbar region | CPT/HCPCS: 99212 ==

== ENCOUNTER 2024-10-04 15:43 | Outpatient (REF) | payer OTHER, SELFPAY ==
--- OUTSIDE RECORDS SUMMARY | 2024-10-04 16:43 | XMS_ITS | Encounter Summary ---
Author Organization [employer] [facility] Address 75 [facility] 7t [place] [address] Care Team Providers Care Ceramics Instructor Name Role Phone Clara Shearer MD Primary Care Provider [phone] Encounter Details Date Type Department Care Team (Late st Contact Info) Description 07/20/2022 Abstract [facility] MEDICINE [address] [place] [address] [phone] Clara Shearer MD [address] [place] [address] Social History Tobacco Use Types Packs/Day Years [...] 11:15 AM EDT Office Visit [facility] MEDICINE [address] [place] [address] [phone] Clara Shearer MD [address] [place] [address] 10/31/2024 2:00 PM EDT Office Visit [facility] ADULT DENTAL [address] [place] [address] [phone] Katt Espinoza [address] [place] [address] documented as of this encounter Visit Diagnoses Not on filedocumented in this encounter Care Teams Ceramics Instructor Relationship Specialty Start Date End Date Clara Shearer MD [address] [place] [address] [place] [address] PCP - General Family Medicine 07/24/18 documented as of this encounter
--- OUTSIDE RECORDS SUMMARY | 2024-10-04 16:43 | XMS_ITS | Encounter Summary ---
Author Organization [employer] Address 75 [facility] 7 [place] [address] Care Team Providers Care Track Announcer Name Role Phone Clara Shearer MD Primary Care Provider [phone] Reason for Visit * Reason Onset Date Comments Letter for School/Work 08/02/2022 Encounter Details Date Type Department Care Team ([facility] st Contact Info) Description 08/02/2022 Telephone [facility] MEDICINE 230 [place], [place] [phone] Clara Shearer MD [address] [place], [place] [phone] Letter for School/Work Social History Tobacco Use [...] a upcoming procedure on 08-19-22. Fax number [phone] Any question please contact Ambreen at [phone] ext [phone] * Telephone Encounter - Khang Garcia - 08/04/2022 2:41 PM EST Tc from pankaj with [facility] requesting a call regarding message below Please contact pankaj at [phone] * Telephone Encounter - Ronda Mahan LPN [...] - 08/02/2022 2:48 PM EST Tc from claduia with [facility] requesting a letter stating when pt will be stopping medication ( warfarin 2 mg ) prior to OP Please contact claudia at [phone] ext [phone] documented in this encounter Plan of Treatment Upcoming Encounters Date Type Department Care Team (Late st Contact Info) Description 10/07/2024 11:15 AM EDT Office Visit [facility] MEDICINE [address] [place], [place] [phone] Clara Shearer MD [address] [place] [address] 10/31/2024 2:00 PM EDT Office Visit [facility] ADULT DENTAL [address] [place], [place] [phone] Jignesh Espinozaaris [address] [place] [address] documented as of this encounter Visit Diagnoses Not on filedocumented in this encounter Care Teams Track Announcer Relationship Specialty Start Date End Date Clara Shearer MD [address] [place] [address] PCP - General Family Medicine 07/24/18 documented as of this encounter
--- OUTSIDE RECORDS SUMMARY | 2024-10-04 16:43 | XMS_ITS | Encounter Summary ---
Author Organization [employer] [facility] Address 75 [facility] 7t [place] [address] Care Team Providers Care Harp Repairer Name Role Phone Clara Shearer MD Primary Care Provider [phone] Encounter Details Date Type Department Care Team (Latest Contact Info) Description 09/26/[address] [facility] CONVERSIONS Dental, Provider, DDS Social History [...] AM EDT Office Visit [facility] MEDICINE [address] [place] [address] Clara Shearer MD [address] [place] [address] 10/31/2024 2:00 PM EDT Office Visit [facility] ADULT DENTAL [address] [place] [address] Jignesh Espinozaaris [address] [place] [address] documented as of this encounter Visit Diagnoses Not on filedocumented in this encounter Care Teams Harp Repairer Relationship Specialty Start Date End Date Clara Shearer MD [address] [place] [address] PCP - General Family Medicine 07/24/18 documented as of this encounter
--- OUTSIDE RECORDS SUMMARY | 2024-10-04 16:43 | XMS_ITS | Encounter Summary ---
Author Organization [employer] Address [address] [facility] 7t [place] [address] Care Team Providers Care Telephone Lines Repairer Name Role Phone Clara Shearer MD Primary Care Provider [phone] Encounter Details Date Type Department Care Team ([facility] st Contact Info) Description 01/22/2024 Orders Only [facility] MEDICINE [address] [place], [place] [phone] Clara Shearer MD [address] [place], [place] [phone] History of mechanical aortic valve replacement Social [...] Description 10/07/2024 11:15 AM EDT Office Visit [facility] MEDICINE [address] [place] [address] Clara Shearer MD [address] [place] [address] 10/31/2024 2:00 PM EDT Office Visit [facility] ADULT DENTAL [address] [place] [address] Olga, Katt [address] [place] [address] documented as of this encounter Visit Diagnoses Diagnosis History of mechanical aortic valve replacement documented in this encounter Additional Health Concerns Assessment Noted Time PHQ-9 Depression Total Score: 0 10/17/19 24 3:45 PM EDT documented as of this encounter Care Teams Telephone Lines Repairer Relationship Specialty Start Date End Date Clara Shearer MD [address] [place] [address] PCP - General Family Medicine 07/24/18 documented as of this encounter
--- OUTSIDE RECORDS SUMMARY | 2024-10-04 16:44 | XMS_ITS | Encounter Summary ---
Author Organization [employer] Address [address] [place] [address] 7 [place] [address] Care Team Providers Care Medical Concierge Name Role Phone Clara Shearer MD Primary Care Provider [phone] Reason for Referral * Imaging (Routine) - Closed Specialty Diagnoses / Procedures Referred By Ron brewer Referred To Contact Radiology Diagnoses Metabolic dysfunction-associated steatotic liver disease (MASLD) Procedures US Abdomen Comp w elastography Clara Shearer MD [address] [place] [address] Phone: tel: fax: [address] Phone: tel: fax: Referral ID Status Reason Start Date Expiration Date Visits Re quested Visits Authorized [id number] Closed 11/17/2023 11/16/2024 1 1 Encounter Details Date Type Department Care Team (Late st Contact Info) Description 11/17/2023 Orders Only [facility] MEDICINE [address] [place], [place] [phone] Clara Shearer MD [address] [place], [place] [phone] Metabolic dysfunction-associated steatotic liver disease (MASLD) (Primary [...] Description 10/07/2024 11:15 AM EDT Office Visit [facility] MEDICINE [address] [place] [address] Clara Shearer MD [address] [place] [address] 10/31/2024 2:00 PM EDT Office Visit [facility] ADULT DENTAL [address] [place] [address] Katt Espinoza [address] [place] [address] documented as of this encounter Procedures Procedure Name Priority Date/Time Associated Diagnosis Comments US ABDOMEN COMPLETE WITH ELASTOGRAPHY Routine 12/05/2023 9:26 AM EDT Metabolic dysfunction-associa ebony steatotic liver disease (MASLD) documented in this encounter Results * US Abdomen Comp w elastography (12/05/2023 9:26 AM EDT) Anatomical Region Laterality Modality Abdomen Ultrasound 12/05/2023 9:26 AM EDT Narrative 12/12/2023 9:41 AM EDT ? [facility] ?[address] ?[place] [address] ? Ultrasound Report ? Signed ? Patient: LindaphillipMarktwin ?MR#: [id number] ?? 2088 ? : 1975 ?Acct:[id number] ? Age/Sex: 48 / F ?ADM Date: 12/05/23 ? Loc: HO.US ? Attending Dr: Clara Shearer MD ? Ordering Physician: Clara Shearer MD ?? Date of Service: 12/05/23 ?? Procedure(s): US abdomen comp w elastography ?? Accession Number(s): [id number] ? cc: Clara Shearer MD ? EXAMINATION: [...] 0937 ? DD/ 0926 ? TD/TT: ? Telecommunications Line Mechanic: SS ? Procedure Note Ailin, Image - 12/12/2023 [place] [address] Ultrasound Report Signed Patient: Yoel Martell#: [id number] 2088 : 1975Acct:[id number] Age/Sex: 48 / FADM Date: 12/05/23 Loc: HO.US Attending Dr: Clara Shearer MD Ordering Physician: Clara Shearer MD Date of Service: 12/05/23 Procedure(s): US abdomen comp w elastography Accession Number(s): [id number] cc: Clara Shearer MD EXAMINATION: US COMPLETE [...] MD in OV> 12/12/23936 DD/ 5 TD/TT: Telecommunications Line Mechanic: VICTORINO us Clara Shearer MD IMG US PROCEDURES Final Result documented in this encounter Visit Diagnoses Diagnosis Metabolic dysfunction-associated steatotic liver disease (MASLD)- Primary documented in this encounter Additional Health Concerns Assessment Noted Time PHQ-9 Depression Total Score: 0 10/17/19 24 3:45 PM EDT documented as of this encounter Care Teams Medical Concierge Relationship Specialty Start Date End Date Clara Shearer MD [address] [place] [address] PCP - General Family Medicine 07/24/18 documented as of this encounter
--- OUTSIDE RECORDS SUMMARY | 2024-10-04 16:44 | XMS_ITS | Encounter Summary ---
Author Organization [employer] Address 75 [facility] 7 [place] [address] Care Team Providers Care Child Development Professor Name Role Phone Clara Shearer MD Primary Care Provider [phone] Reason for Referral * Consultation (Routine) - Closed Specialty Diagnoses / Procedures Referred By Ron brewer Referred To Contact Physical Therapy Diagnoses Right hip pain Chronic right-sided low back pain, unspecified whether sciatica present Clara Shearer MD [address] [place] [address] Phone: tel: fax: AT Physical Therapy - [address] [address] Phone: tel: fax: Referral ID Status Reason Start Date Expiration Date V isits Requested Visits Authorized [id number] Closed Specialty Services Required 11/14/2023 11/13/2024 1 1 Encounter Details Date Type Department Care Team (Late st Contact Info) Description 11/14/2023 Orders Only [facility] MEDICINE [address] [place], [place] [phone] Clara Shearer MD [address] [place], [place] [phone] Right hip pain (Primary Dx); Chronic right-sided [...] Description 10/07/2024 11:15 AM EDT Office Visit [facility] MEDICINE [address] [place] [address] Clara Shearer MD [address] [place] [address] 10/31/2024 2:00 PM EDT Office Visit [facility] ADULT DENTAL 230 [facility] [place] [address] Katt Espinoza [address] [place] [address] Scheduled Referrals Name Type Priority Associated Diagnoses [...] EDT Narrative 11/25/2023 8:18 AM EDT ? [facility] ?[address] ?[place] [address] ?XRay Report ? Signed ? Patient: Thalia Martell ?MR#: [id number] ?? 2088 ? : 1975 ?Acct:[id number] ? Age/Sex: 48 / F ?ADM Date: 11/16/23 ? Loc: HO.XRAY ? Attending Dr: Clara Shearer MD ? Ordering Physician: Clara Shearer MD ?? Date of Service: 11/16/23 ?? Procedure(s): XR thoracic spine 2V ?? Accession Number(s): [id number] ? cc: Clara Shearer MD ? EXAMINATION: [...] ?11/25/2315 ? DD/ 1549 ? TD/TT: ? Validation Leader: QUINN ? Procedure Note Donhuyter, Image - 11/25/[address] [address] XRay Report Signed Patient: Yoel Martell#: [id number] 2088 : 1975Acct:[id number] Age/Sex: 48 / FADM Date: 11/16/23 Loc: VICKIE Attending Dr: Clara Shearer MD Ordering Physician: Clara Shearer MD Date of Service: 11/16/23 Procedure(s): XR thoracic spine 2V Accession Number(s): [id number] cc: Clara Shearer MD EXAMINATION: XR THORACOLUMBAR [...] MD inOV> 11/25/23 0815 DD/ 1549 TD/TT: Validation Leader: QUINN Clara Shearer MD IMG XR PROCEDURES [...] documented as of this encounter Care Teams Child Development Professor Relationship Specialty Start Date End Date Clara Shearer MD [address] [place] [address] PCP - General Family Medicine 07/24/18 documented as of this encounter
--- OUTSIDE RECORDS SUMMARY | 2024-10-04 16:44 | XMS_ITS | Encounter Summary ---
Author Organization [employer] Address 75 [facility] 7t [place] [address] Care Team Providers Care Aerial Survey Technician Name Role Phone Clara Shearer MD Primary Care Provider Reason for Visit * Reason Onset Date Comments Nurse Triage 06/05/2023 Encounter Details Date Type Department Care Team ([facility] st Contact Info) Description 06/05/2023 Telephone [facility] MEDICINE [address] [place], [place] [phone] Clara Shearer MD [address] [place], [place] [phone] Nurse Triage Social History Tobacco Use Types [...] 06/05/2023 4:47 PM EST Triage call with [employer] ID [id number] Pt reports headaches which have started 2 [...] to try this. Pt will come to [facility] tomorrow 06/06/23 to be seen by provider. [...] Nausea as well Please contact pt at [phone] Maltese Speaker. documented in this encounter Plan of Treatment Upcoming Encounters Date Type Department Care Team (Late st Contact Info) Description 10/07/2024 11:15 AM EDT Office Visit [facility] MEDICINE [address] [place] [address] Clara Shearer MD [address] [place] [address] 10/31/2024 2:00 PM EDT Office Visit [facility] ADULT DENTAL [address] [place] [address] Katt Espinoza [address] [place] [address] documented as of this encounter Visit Diagnoses Not on filedocumented in this encounter Additional Health Concerns Assessment Noted Time PHQ-9 Depression Total Score: 5 03/07/20 23 3:27 PM EDT documented as of this encounter Care Teams Aerial Survey Technician Relationship Specialty Start Date End Date Clara Shearer MD [address] [place] [address] PCP - General Family Medicine 07/24/18 documented as of this encounter
--- OUTSIDE RECORDS SUMMARY | 2024-10-04 16:44 | XMS_ITS | Referral Summary ---
Author Organization [facility] Address [address] [place] [address] Care Team Providers Care Rubber Goods Cutter Finisher Name Role Phone Manfred Clara Primary Care Provider [phone] Allergies No known active allergies Medications aspirin [...] Not on file Procedures * Due to [place] state law, this organization might not be sharing negative HIV tests. Procedure Name Priority Date/Time Associated Diagnosis Comments PAP Routine 12/17/2020 2:37 PM EDT Hematometra from Last 3 Months or Most Recently Relevant to Health Maintenance Insurance [facility] HS/[place] [address] [place] [address] Care Teams Rubber Goods Cutter Finisher Relationship Specialty Start Date End Date Clara Shearer [address] [place] [address] PCP - General Family Medicine 05/26/20
--- OUTSIDE RECORDS SUMMARY | 2024-10-04 16:44 | XMS_ITS | Clinical Summary ---
Author Organization [employer] Address [address] [facility] 7t [place] [address] Care Team Providers Care Ship Boss Name Role Phone Clara Shearer MD Primary Care Provider [phone] Allergies No known active allergies Medications docusate [...] has sleep study which was ordered by chief optometry service. Patient was referred to sleep medicine specialist [...] with minimal improvement - evaluated by [facility] orthopedist in March 2024. MRI was ordered and patient was referred to [facility] for injection treatment. - patient has received 3 injection treatments with no improvement - patient was advised to contact [facility] orthopedist to inquire MRI Assessment & Plan [...] in November 2022 - following with [facility] GI, last seen in Feb 2023 - [...] on warfarin - previously prescribed metoprolol by chief optometry service; no longer on the medication due to hypotension / dizziness - continue following with chief optometry service, [facility] Dr Haynes - last TTE in January 2022, mild mitral valve stenosis - continue current treatment plan per cardiology Assessment & Plan (03/19/2023 1:47 PM EDT): - s/p AVR in Feb 2010 - on warfarin - previously prescribed metoprolol by chief optometry service; no longer on the medication due to hypotension / dizziness - continue following with chief optometry service, [facility] Haynes - last TTE in January 2022, mild mitral valve stenosis - continue current treatment plan per cardiology Assessment & Plan (11/22/2022 11:35 AM EDT): - s/p AVR in Feb 2010 - on warfarin - previously prescribed metoprolol by chief optometry service; no longer on the medication due to hypotension / dizziness - continue following with chief optometry service, [facility] Haynes - last TTE in January 2022, mild mitral valve stenosis - continue current treatment plan per cardiology Chronic anticoagulation 11/22/2022 Assessment & Plan (05/30/2024 1:41 PM EST): - indication: Aortic valve replacement - medication warfarin - goal INR 2-3 - followed by [facility] anticoagulation clinic - last INR was 2.0 on 03/01/23 - continue current management plan Assessment & Plan (03/19/2023 1:49 PM EDT): - indication: Aortic valve replacement - medication warfarin - goal INR 2-3 - followed by [facility] anticoagulation clinic - last INR was 2.0 on 03/01/23 - continue current management plan Assessment & Plan (11/22/2022 11:40 AM EDT): - indication: Aortic valve replacement - medication warfarin - goal INR 2-3 - followed by [facility] anticoagulation clinic - last INR was 2.4 [...] polyp, benign -Pt has follow-up appointment with [facility] -Pt is on Coumadin -Pt requested Hysterectomy, pt will follow-up with [facility] with possible hysterectomy in future Assessment & Plan (11/08/2022 4:50 PM EDT): s/p Endometrial Curetting's, polyp, benign -Pt has follow-up appointment with [facility] -Pt is on Coumadin -Pt requested Hysterectomy, pt will follow-up with [facility] with possible hysterectomy in future Cyst of ovary 09/22/2022 Iron deficiency anemia due to chronic blood loss 09/22/2022 Assessment & Plan (05/30/2024 1:41 PM EST): - AUB in a setting of anticoagulation - s/p removal of endometrial polyp, benign - Pt has follow-up appointment with [facility] - Pt is taking Coumadin Assessment & Plan (11/03/2023 12:09 PM EDT): - AUB in a setting of anticoagulation - s/p removal of endometrial polyp, benign -Pt has follow-up appointment with [facility] -Pt is taking Coumadin Assessment & Plan (11/08/2022 4:45 PM EDT): Due to AUB: S/p Endometrial Curetting's, polyp, benign -Pt has follow-up appointment with [facility] -Pt is taking Coumadin Vitamin D deficiency 12/04/2018 Assessment & Plan (11/03/2023 12:08 PM EDT): -continue vitamin D supplement Presence of subdermal contraceptive implant 09/2014 History of mechanical aortic valve replacement 0 04/07/2015 Assessment & Plan (05/30/2024 12:22 PM EST): - Trash Hauler: [facility], 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 Mechanical aortic valve functioning normally. Moderate mitral valve stenosis. No regurgitation. - Continue warfarin - Continue SBE prophylaxis. Assessment & Plan (11/03/2023 12:18 PM EDT): - 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 Mechanical aortic valve functioning normally. Moderate mitral valve stenosis. No regurgitation. - Continue warfarin - Continue SBE prophylaxis. Assessment & Plan (03/19/2023 1:47 PM EDT): - Trash Hauler: Dr. Dallas Duran, last seen in Jul 2022 - s/p AVR for rheumatic disease and aortic regurgitation in Feb 2010 - EKG showed sinus rhythm and RBBB - echocardiogram JANUARY 2022 nml LVEF 60-65%; mild mitral valve stenosis - Continue aspirin and warfarin, per cardiology. - Continue SBE prophylaxis. Assessment & Plan (11/22/2022 11:37 AM EDT): - Trash Hauler: Dr. Dallas Duran, last seen in Jul [...] & Plan (05/30/2024 12:22 PM EST): - [facility], last seen in December 2023 - s/p AVR for rheumatic disease and aortic regurgitation due to rheumatic heart disease in Feb 2010 - EKG showed sinus rhythm and RBBB - echocardiogram in Aug 2023, EF 59%. Normally functioning AV. Moderate mitral valve stenosis. - Continue warfarin, per cardiology. - Continue SBE prophylaxis. Assessment & Plan (11/03/2023 12:20 PM EDT): - Trash Hauler: [facility], Dr. 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 Normally functioning AV. Moderate mitral valve stenosis. - Continue warfarin, per cardiology. - Continue SBE prophylaxis. Assessment & Plan (11/22/2022 11:36 AM EDT): - Trash Hauler: [facility], Dr. Haynes, last seen in Jul 2022 [...] EDT): - 12/03/22 Evaluated and treated at [facility]. WBC 13k, Lipase 247, CT showed pancreatitis. Given IVF and analgesics. - Seen by [facility] GI in December 2022 - MRI on 03/01/23 was normal. - HgbA1C 5.9% - Follow recommendations per GI. Menometrorrhagia 09/22/2022 03/07/2023 Pain in female pelvis 09/22/20222022 Encounters Date Type Department Care Team Description 10/01/2024 Telephone [facility] [address] [place] [address] Clara Shearer MD CHART PREP 09/26/2024 Orders Only GENERIC EXTERNAL DATA DEPARTMENT Provider, Generic External Data 09/02/2024 Orders Only [facility] [address] [facility], [place] [phone] Daina Mccollum DDS 09/02/2024 Telephone [facility] [address] [place] [address] Lyn-Méndez, Daina, DDS pre medi antibiotic 08/28/2024 Orders Only GENERIC EXTERNAL DATA DEPARTMENT Provider, Generic External Data 08/08/2024 Telephone [facility] [address] [place] [address] Faina Gayle [place] august recall 07/31/2024 Orders Only GENERIC EXTERNAL DATA DEPARTMENT Provider, Generic External Data 07/08/2024 Telephone [facility] [address] [place] [address] Clara Shearer MD Durable Medical Equipment from Last 3 Months Immunizations Name Administration [...] Description 10/07/2024 11:15 AM EDT Office Visit [facility] [address] [place] [address] Clara Shearer MD [address] [place] [address] 10/31/2024 2:00 PM EDT Office Visit [facility] [address] [place] [address] Katt Espinoza [address] [place] [address] Health Maintenance Due Date Last Done Comments [...] 10/17/2023, Additional history exists Mammogram 12/23/2024 12/23/2022, 0608/2022, 12/11/2020, Additional history exists Dental X-Ray: Bitewings [...] topic Meningococcal Vaccine Aged Out No ben mike eligible based on patient's age to complete [...] included. Protime 44.2(H) 11.1 - 13.5 sec [facility] 09/26/2024 4:03 PM EST 09/26/2024 4:04 PM EST Generic External Data Provider LAB BLOOD ORDERAB LES Final Result Performing Organization Address City/[facility]/ZIP Co de Phone Number [facility] [address] [place] [address] [phone] * (ABNORMAL) ~PT, ~INR - ANTI COAG CLINIC (09/26/2024 4:03 PM EST) Only the most recent of3 resultswithin the time period is included. Pathologist [facility] Prothrombin Time INR 3.7(H) 0.9 - 1.1 [facility] Comment:METER #: [id number] TERNATIONAL NORMALIZED RATIO (INR) REFERENCE RANGES Reference [...] 4:03 PM EST 09/26/2024 4:04 PM EST Stereomood External Data Provider LAB BLOOD ORDERAB LES Final Result Performing Organization Address [facility]/ZIP Co de Phone Number [facility] [address] [place] [phone] * Hepatitis Panel, General (12/11/2023 4:30 PM EDT) Pathologist [facility] Hepatitis A IgM Nonreactive Nonreactive [facility] Comment:IgM antibodies to HEMPHILL V not detected; does not exclude earlyacute or recovered HAV infection. ~Hepatitis B Surface Antibody REACTIVE Nonreactive [facility] Comment:REACTIVE: > 11.99 mI U/mL Hepatitis B Core Antibody Nonreactive Nonreactive [facility] Hepatitis C Antibody Nonreactive Nonreactive [facility] Comment:Antibodies to HCV no t detected; does not exclude early acuteHCV infection. Hepatitis B Surface Ag Negative Negative [facility] 12/11/2023 4:30 PM EDT 12/11/2023 4:33 PM EDT us Generic External Data Provider LAB BLOOD ORDERAB LES Final Result Performing Organization Address [facility] Co de Phone Number [facility] [address] [place] [phone] * Hemoglobin A1c (12/11/2023 4:30 PM EDT) Hemoglobin A1c 5.7 <6.0 % [facility] Comment:Hemoglobin A1C Refer ence Range Adults: 4.8 - 6.0 % Non diabetic: < 6.0 % Goal: < 7.0 %Additional Action Suggested: > 8.0 %Note: Hemoglobin A1c results are invalid for patients with abnormal amounts of HbF. Blood transfusions may impact the HbA1c concentration in the patient sample. Estimated Average Glucose 117 mg/dL [facility] Comment:eAG = Estimated ave rage glucose which is %A1C expressed asaverage glucose, using the formula of the X6P-YmblujyNapqfkf Glucose study (ADAG), Diabetes Care, Vol.31,#8,Feb. 2007 12/11/2023 4:30 PM EDT 12/11/2023 4:33 PM EDT us Generic External Data Provider LAB BLOOD ORDERAB LES Final Result Performing Organization Address [facility] Co de Phone Number [facility] [address] [place] [phone] * (ABNORMAL) Lipid Panel with Reflex to Direct LDL (11/16/2023 3:27 PM EDT) Triglycerides 305(H) <150 mg/dL [facility] Comment:Desirable Triglyceri de: less than 150 mg/dLBorderline High Triglyceride 150-199 mg/dLHigh Triglyceride: 200-499 mg/dLVery High Triglyceride: greater than or equal to 5OO mg/dL Cholesterol 220(H) <200 mg/dL [facility] Comment:Desirable Cholestero l: less than 200 mg/dLBorderline High Cholesterol: 200-239 mg/dLHigh Cholesterol: greater than 239 mg/dL LDL Cholesterol Calculated 111(H) <100 mg/dL [facility] Comment:Desirable LDL: less than 100 mg/dLNear Optimal/Above Optimal LDL: 110- 129 mg/dLBorderline High LDL: 130-159 mg/dLHigh LDL: 160-189 mg/dLVery High LDL: greater than or equal to 190 mg/dL HDL Cholesterol 48 >40 mg/dL [facility] Comment:Desirable HDL: great er than 40 mg/dL Note: This HDL assay may give artificially low results in patients with liver disease. Blood 11/16/2023 3:27 PM EDT 11/16/2023 3:27 PM EDT us Clara Shearer MD LAB BLOOD ORDERABLES Final Resul t [facility] [address] [place], [place] [phone] * BI Mammogram Screening Tomosynthesis Bilateral (12/23/2022 4:40 PM EDT) Anatomical Region Laterality Modality Breast Bilateral Mammography 12/23/2022 4:40 PM EDT Narrative 12/26/2022 8:07 AM EDT ? [facility] ? [address] ?[place] [address] ? Mammography Report ? Signed ? Patient: Caizan,Gerardina ?MR#: [id number] ?? [id number] ? : 1975 ?Acct:[id number] ? Age/Sex: 47 / F ?ADM Date: // ? Loc: HO.MAMMO ? Attending Dr: Clara Shearer MD ? Ordering Physician: Clara Shearer MD ?Results: 1Negative ? Date of Service: 12/23/22 ?Follow Up: 1 Year From Orig ?? inal Mammogram ? Procedure(s): MM tomosynthesis screening BI ?? Accession Number(s): [id number] ? cc: Clara Shearer MD ? EXAMINATION: [...] ?12/26/22803 ? DD/ 1640 ? TD/TT: ? Automotive Parts Manager: CHO ? Procedure Note Donotarmindainterpreter, Image - 01/19/2023 [facility] [address] [place] [address] Mammography Report Signed Patient: Yoel Martell#: [id number] : 1975Acct:[id number] Age/Sex: 47 / FADM Date: 12/23/22 Loc: [facility] Attending Dr: Clara Shearer MD Ordering Physician: Clara Shearer MDResults: 1Negative Date of Service: 12/23/22Follow Up: 1 Year From Orig inal Mammogram Procedure(s): MM tomosynthesis screening BI Accession Number(s): [id number] cc: Clara Shearer MD EXAMINATION: MM SCREENING [...] in OV> 12/26/22 0804 DD/ 1640 TD/TT: Automotive Parts Manager: CHO [facility] External Provider IMG BI PROCEDURES Final Result * HIV-1 RNA, Quantitative, Real-Time PCR (12/15/2022 8:09 AM EDT) HIV 1 RNA, QN PCR NOT DETECTED NOT DETECTED copies/mL [facility] [place] [employer] HIV 1 RNA, QN PCR NOT DETECTED NOT DETECTED Log copies/mL [facility] [place] [employer] Comment: This test was performed using Real-Time Polymerase Chain Reaction. Reportable Range: 20 copies/mL to 10,000,000 copies/mL (1.30 log copies/mL to 7.00 log copies/mL). Blood Venous blood specimen / Unknown 12/15/2022 8:09 AM EDT 12/15/2022 8:10 AM EDT Narrative [facility] - 12/23/2022 6:53 PM EDT FASTING:NO FASTING: NO Yany Cosby BRIDGE PAINTER HELPER LAB BLOOD ORDERABLES Final Res ult [facility] [address], [place] [address] [facility] [place] [employer] [address] [place] [phone] * THINPREP PAP (11/13/2020 4:51 PM EDT) [...] historic and ?? current clinical information. ?? Caddy/Caddie Supervisor : SEE COMMENT [facility] Comment: RK, CT(ASCP) CT screening location: [address] ??[phone] Interpretation/R esult: Negative for intraepithelial lesion or malignancy. [facility] LMP: NONE [facility]IV[facility] Prev. BX: NONE [facility]IV[facility] Prev. PAP: NONE [facility]IVEN [facility] Review Caddy/Caddie Supervisor : SEE [facility] Comment: BLC,CT(ASCP) CT screening location: [address] ??[phone] SOURCE: None given [facility] Statement Of Adequacy: [facility] Comment: Satisfactory for evaluation. Endocervical/transformation zone component present. Age and/or menstrual status not provided 11/13/2020 4:51 PM EDT Ginette Her NP LAB PATHOLOGY ORDERABLES Final Result Performing Organization Address [facility] de Phone Number [facility] [address] * HPV GENOTYPES 16,18/45 (11/13/2020 4:51 PM EDT) HPV 16 RNA NOT DETECTED NOT DETECTED [facility] HPV 18/45 RNA NOT DETECTED NOT DETECTED [facility] Comment: Methodology: Ambulance Driver Mediated Amplification The analytical performance characteristics of this assay have been determined by [facility]. The modifications have not been cleared or approved by the FDA. This assay has been validated pursuant to the CLIA regulations and is used for clinical purposes. 11/13/2020 4:51 PM EDT Ginette Her LABOR GANG SUPERVISOR LAB BLOOD ORDERABLES Final Resu lt Performing Organization Address [facility] Co de Phone Number [facility] [address] from Last 3 Months or Most Recently Relevant to Health Maintenance Insurance Kelsea PEREZ [address] [id number] [facility] Kelsea Perez [address] [address] DENTAL - HSN FULL (MEDICAID) DENTAL-[facility] MEDICAID LIMITED ADULT * Guarantor: Thalia Martell Account Type Relation to Patient Date of Phone Billing Address Personal/[place] [address] Care Teams Ship Boss Relationship Specialty Start Date End Date Clara Shearer MD [address] [place] [phone] PCP - General Family Medicine 07/24/18
--- OUTSIDE RECORDS SUMMARY | 2024-10-04 16:44 | XMS_ITS | Encounter Summary ---
Author Organization [employer] Address [address] [facility] 7t [place] [address] Care Team Providers Care Supervisor Dental Laboratory Name Role Phone Clara Shearer MD Primary Care Provider [phone] Reason for Visit * Reason Onset Date Comments CHART PREP 10/01/2024 Encounter Details Date Type Department Care Team ([facility] st Contact Info) Description 10/01/2024 Telephone [facility] [address] [place], [place] [phone] Clara Shearer MD [address] [place], [place] [phone] CHART PREP Social History Tobacco Use Types Packs/Day Years [...] the past 12 months, has t he [employer], gas, oil or water [employer] threatened to shut off services in your [...] encounter Miscellaneous Notes * Telephone Encounter - Butch Huizar [place] - 10/01/2024 11:12 AM EDT Chart Prep Labs: not applicable Images: done Vaccines due: yes COVID Referrals: complete Ortho appt kept on 07/04/24 notes in chart. Screenings: mammogram December 2024 Overdue care gaps: PHQ-9, LMP ? Of gluco and A1C pre-dm. documented in this encounter Plan of Treatment Upcoming Encounters Date Type Department Care Team (Late st Contact Info) Description 10/07/2024 11:15 AM EDT Office Visit [facility] [address] [place] [address] Clara Shearer MD [address] [place] [address] 10/31/2024 2:00 PM EDT Office Visit [facility]ULT [facility] [address] [place] [address] Katt Espinoza [address] [place] [address] documented as of this encounter Visit Diagnoses Not on filedocumented in this encounter Additional Health Concerns Assessment Noted Time PHQ-9 Depression Total Score: 0 10/17/19 24 3:45 PM EDT documented as of this encounter Care Teams Supervisor Dental Laboratory Relationship Specialty Start Date End Date Clara Shearer MD [address] [place] [address] PCP - General Family Medicine 07/24/18 documented as of this encounter
--- OUTSIDE RECORDS SUMMARY | 2024-10-04 16:44 | XMS_ITS | Encounter Summary ---
Author Organization [employer] Address [address] [facility] 7t [place] [address] Care Team Providers Care Extension Service Agent Name Role Phone Clara Shearer MD Primary Care Provider [phone] Reason for Visit * Reason Onset Date Comments rs otf 05/22/2023 Encounter Details Date Type Department Care Team (Late st Contact Info) Description 05/22/2023 Telephone [facility] ADULT D[facility] [address] [place], [place] [phone] Olga, Katt [address] [place] [address] rs prophy Social History Tobacco Use Types [...] Description 10/07/2024 11:15 AM EDT Office Visit [facility] [address] [place] [address] Clara Shearer MD [address] [place] [address] 10/31/2024 2:00 PM EDT Office Visit [facility] [address] [place] [address] Katt Espinoza [address] [place] [address] documented as of this encounter Visit Diagnoses Not on filedocumented in this encounter Additional Health Concerns Assessment Noted Time PHQ-9 Depression Total Score: 5 03/07/20 23 3:27 PM EDT documented as of this encounter Care Teams Extension Service Agent Relationship Specialty Start Date End Date Clara Shearer MD [address] [place] [address] PCP - General Family Medicine 07/24/18 documented as of this encounter
--- OUTSIDE RECORDS SUMMARY | 2024-10-04 16:44 | XMS_ITS | Clinical Summary ---
Author Organization [facility] Address [address] [place] [address] Care Team Providers Care Medical Aide Name Role Phone Manfred Clara Primary Care Provider [phone] Allergies No known active allergies Medications aspirin [...] complete this topic Procedures * Due to [place] state law, this organization might not be sharing negative HIV tests. Procedure Name Priority Date/Time Associated Diagnosis Comments PAP Routine 12/17/2020 2:37 PM EDT Hematometra from Last 3 Months or Most Recently Relevant to Health Maintenance Insurance [facility]/[place] [place] [address] Care Teams Medical Aide Relationship Specialty Start Date End Date Clara Shearer [address] [place] [address] PCP - General Family Medicine 05/26/20
--- OUTSIDE RECORDS SUMMARY | 2024-10-04 16:44 | XMS_ITS | Encounter Summary ---
Author Organization [employer] Address [address] [facility] 7t [place] [address] Care Team Providers Care Remedial Masseur Name Role Phone Clara Shearer MD Primary Care Provider [phone] Reason for Visit * Reason Onset Date Comments pre medi antibiotic 09/02/2024 Encounter Details Date Type Department Care Team (Late st Contact Info) Description 09/02/2024 Telephone [facility] [address] [place] [address] LynDaina Huffman, DDS [address] [place] [address] pre medi antibiotic Social History Tobacco Use [...] shot as she is driving in from [place]. Can medication be sent to pharmacy DR documented in this encounter Plan of Treatment Upcoming Encounters Date Type Department Care Team (Late st Contact Info) Description 10/07/2024 11:15 AM EDT Office Visit [facility] [address] [place] [address] Clara Shearer MD [address] [place] [address] 10/31/2024 2:00 PM EDT Office Visit [facility] [address] [place], [place] [phone] Olga, Katt [address] [place] [address] documented as of this encounter Visit Diagnoses Not on filedocumented in this encounter Additional Health Concerns Assessment Noted Time PHQ-9 Depression Total Score: 0 10/17/19 24 3:45 PM EDT documented as of this encounter Care Teams Remedial Masseur Relationship Specialty Start Date End Date Clara Shearer MD [address] [place] [phone] PCP - General Family Medicine 07/24/18 documented as of this encounter
--- OUTSIDE RECORDS SUMMARY | 2024-10-04 16:44 | XMS_ITS | Encounter Summary ---
Author Organization [employer] Address [address] [facility] 7t [place] [address] Care Team Providers Care Straightening Machine Operator Name Role Phone Claar Shearer MD Primary Care Provider [phone] Encounter Details Date Type Department Care Team [...] [facility] MEDICINE [address] [place] [address] Clara Shearer MD [address] [place] [address] 10/31/2024 2:00 PM EDT Office Visit [facility] ADULT DENTAL [address] [place] [address] Olga, Katt [address] [place] [address] documented as of this encounter Procedures Procedure Name Priority Date/Time Associated Diagnosis Comments PROTHROMBIN TIME WHOLE BLD POC Routine 09/26/2024 4:03 PM EST ~PT, ~INR - ANTI COAG CLINIC Routine 09/26/2024 4:03 PM EST documented in this encounter Results * (ABNORMAL) PROTHROMBIN TIME WHOLE BLD POC (09/26/2024 4:03 PM EST) Protime 44.2(H) 11.1 - 13.5 sec [facility] 09/26/2024 4:03 PM EST 09/26/2024 4:04 PM EST us Generic External Data Provider LAB BLOOD ORDERAB LES Final Result Performing Organization Address [facility] Co de Phone Number [facility] [address] [place] [phone] * (ABNORMAL) ~PT, ~INR - ANTI COAG CLINIC (09/26/2024 4:03 PM EST) Prothrombin Time INR 3.7(H) 0.9 - 1.1 [facility] Comment:METER #: [id number] TERNATIONAL NORMALIZED RATIO (INR) REFERENCE RANGES Reference [...] ORDERAB LES Final Result Performing Organization Address [facility] Co de Phone Number [facility] [address] [place] [phone] documented in this encounter Visit Diagnoses Not on filedocumented in this encounter Additional Health Concerns Assessment Noted Time PHQ-9 Depression Total Score: 0 10/17/19 24 3:45 PM EDT documented as of this encounter Care Teams Straightening Machine Operator Relationship Specialty Start Date End Date Clara Shearer MD [address] [place] [phone] PCP - General Family Medicine 07/24/18 documented as of this encounter
== END 2024-10-04 15:44 | disposition home or self-care (01) ==
LOC: HO.MAMMO 15:43
PROVIDERS: PCP Family Medicine; Visit Provider Family Medicine
DX: Z12.31 Encounter for screening mammogram for malignant neoplasm of breast (principal)
CPT/HCPCS: 77063; 77067

== ENCOUNTER → 2024-10-04 16:00 | Outpatient (BNV) | payer OTHER, SELFPAY | PROVIDERS: PCP Family Medicine; Visit Provider Internal Medicine | DX: Z12.31 Encounter for screening mammogram for malignant neoplasm of breast (principal) | CPT/HCPCS: 77063; 77067 ==

== ENCOUNTER 2024-10-10 15:14 | Outpatient (AMB) | payer OTHER, SELFPAY ==
[2024-10-10 15:22] VITALS: BP 102/72; PULSE 77; O2SAT 95; BMI 28.7
--- NOTE | 2024-10-10 15:22 | MHC.OFFVIS ---
Vital Signs 10/10/24 15:22 Height 4 ft 11 in Weight 142 lb 4 oz BMI 28.7 BP 102/72 Blood Pressure Location Lt brachial Position Sitting Pulse 77 Pulse Source Pulse Oximeter Pulse Oximetry (%) 95 Oxygen Delivery Method Room Air Intake Visit Reasons: I-REFERENCE SERVICES HEAD: AYESHA Intake Note: Internal referral for AYESHA. Topstitcher Lockstitch Required: Yes Topstitcher Lockstitch Name: Chari [id number] Information Interpreted: non-clinical & clinical Allergies peach Allergy (Severe, Verified 10/10/24 15:28) Angioedema HPI Comments Details: 49 year old female presents for evaluation of sleep and chronic headaches. Home sleep study completed AHI was 11 and oxygen Mario Alberto at 87%. She has difficulty sleeping with snoring loudly and fragmented sleep, waking up feeling exhausted most days. She goes to bed at midnight and wakes up at 4am with 1 bathroom break, she has a strong obligation to cook and clean for the family at 4 am. MRI explained to patient LBP L5/S1 disc herniation and r. hip pain, had 7 weeks of PT, wears SI joint belt. Pain is worse on prolonged standing with numbness and tingling in r. side of hip radiating down to the leg and numbness into digits 1, and 2 on r. foot. She c/o RLS with tingling and numbness in both feet, keeps her from falling asleep and staying asleep at night. She has a h/o Rheumatic Fever and AVR in December 2023 now on warfarin. She c/o migraines with aura 4x a day which is her usual headache into the night as she recently got dentures 3 months ago it is severe, but headaches were intense prior to dentures. The migraines occur 4-5 x a week, if she doesn't sleep she gets a headache which becomes a migraine always start with the aura. Her vision is not evaluated in years. Her mood, diet and memory are normal. Migraine Auras: Prodrome She says she feels like there is light coming out of her eyes, flashes of light, with photo/phonophobia, colors white and black clothing make it worse, vision gets blurry with spots, she denies n/v, she gets dizzy, loses her balance denies gait issues, has vertigo as if the room is spinning once a month. Intensity is a pulsating, throbbing pressure which begins at the temples and frontal to the occiput as if wearing a tight cap, she pulls her hair out and this relieves the pulsating a little. She takes a Sumatriptan and it lessens the pain, or places a slice of raw potato on her eyes and it subsides. Total visits to the ER is once for the migraines, and 3x a month to urgent care at [address] [place] [address] Urgent care [place]. 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 General: no acute distress and tired appearing Orientation/consciousness: patient oriented x3 HEENT Face and sinus: Yes face symmetric Throat: Yes other (Mallampti score is 3) Eyes Eyelids: Yes lid lag Conjunctivae: conjunctival abnormal (Yellow ) bilateral Pupils: Equal, round and reactive pupils present Resp Effort & Inspection: normal respiratory effort, able to speak in complete sentences and Actively coughing Neuro General: patient oriented x3 Cranial nerves: Yes Facial sensation intact/muscles of mastication intact, Yes Equal, round and reactive pupils present, Yes Normal accommodation reflex present, Yes Normal facial strength present, Yes Midline tongue present, Yes Ability to bilaterally rotate head present (Pain with lateral rotation to the right.), Yes Ability to bilaterally elevate shoulders present and Yes Other cranial nerve findings present (Pain and dizziness with flexion of neck.) Gait exam (Neuro): Normal gait present Motor exam (neuro): 5/5 motor strength present throughout Deep tendon reflexes (DTR's): Right triceps reflex intensity grade: 2+, Left triceps reflex intensity grade: 2+, Rt Biceps (C5, C6): 2+, Left biceps reflex intensity grade: 2+, Right brachioradialis reflex intensity grade: 2+, Left brachioradialis reflex intensity grade: 2+, Right patellar reflex intensity grade: 2+ and Left patellar reflex intensity grade: 2+ Coordination: [id number] test normal Psych Appearance: well kempt Attitude: cooperative Results Reviewed Results Reviewed: Business Services Director note - and MRI Jul 2024 IMPRESSION: 1. Discogenic degenerative changes at L4-L5 and L5-S1 with S1 being a transitional level. 2. Disc bulging and left subarticular disc protrusion at L5-S1 with mild narrowing of the left subarticular zone with possible mild encroachment on the traversing left S1 nerve root. 3. Disc bulging at L4-L5 with central annular fissuring without spinal canal or neural foraminal stenosis. 4. Mild facet joint arthropathy at L5-S1 and minor anterior marginal spondylosis at T12-L1. 5. A 4.5 cm partially included cystic structure in the right adnexa, likely an ovarian cyst, which is consistent with the report of the previous pelvic ultrasound from 07/29/2019. If clinically warranted, this can be reassessed with follow-up pelvic ultrasound. Assessment & Plan Assessment & Plan (1) Lumbar disc herniation: Code(s): M51.26 - Other intervertebral disc displacement, lumbar region Category: Medical (2) Migraine aura occurring with and without headache: Code(s): G43.109 - Migraine with aura, not intractable, without status migrainosus Category: Medical (3) AYESHA (obstructive sleep apnea): Code(s): G47.33 - Obstructive sleep apnea (adult) (pediatric) Category: Medical (4) Dizziness: Comment: She is complaining of lightheadedness. Her blood pressure is also low. No fever or any symptoms of infection. Code(s): R42 - Dizziness and giddiness Category: Medical Plan Sleep difficulties, CPAP order sent for mild degree apnea AHI is 11 and Oxygen is 87. Daily migraines with aura Sumatriptan increased to 100mg PO at onset of migraine, may take one additional tablet two hours later if migraine does not abort. Do not take more than 200mg PO daily in a 24 hours. Chronic migraines will start her on a maintenance dose of Topiramate 25mg PO daily. Vision evaluation is needed. Will send for imaging in future, if migraines not improved. Medications: New topiramate Take one 25mg tablet daily at bedtime for chronic migraines. 25 mg PO DAILY 30 tabs 1RF migraines with aura MDD 25mg PO daily G43.109 - Migraine with aura, not intractable, without status migrainosus, M51.26 - Other intervertebral disc displacement, lumbar region Changed From sumatriptan succinate 50 mg PO G43.109 - Migraine with aura, not intractable, without status migrainosus To sumatriptan succinate Take one tablet at onset of migraine, if migraine does not abort you may take one more tablet in a 24 hour period. 100 mg PO .prn 12 tabs 1RF chronic migraines MDD 200mg G43.109 - Migraine with aura, not intractable, without status migrainosus Patient Instructions: Sleep Hygiene provided: set a scheduled bedtime and wake time to help regulate the circadian rhythm and balance the release of pituitary hormones. Sleep in a dark room, temperatures below 68 degrees, and no devices n bed. Limit caffeinated products 6 hours prior to bed, and limit fluids 2-4 hours prior to bed. Gentle night yoga, diffusing essential oils, and playing soft music can be relaxing. Migraine protocol: Sumatriptan 100mg at onset of acute migraine preventative medication, take at the onset of migraine one 100mg tablet by mouth, if migraine does not abort, you may take one additional tablet within 2 hours of taking the first tablet. Do not exceed more than 200mg PO in a 24 hour period. Keep Migraine cap in the freezer and wear as needed, lying down for 15-20min with lights off will help with decreasing the migraine burden. Chronic Migraine maintenance medication is topiramate 25mg PO daily at bedtime. Will consider imagining at next f/u visit if migraine burden is not improved. Coding Level of Care Code New Pt Level 4 (59006) Diagnoses Lumbar disc herniation M51.26 Migraine aura occurring with and without headache G43.109 AYESHA (obstructive sleep apnea) G47.33 Dizziness R42 Time Spent (min) 35 Comment evaluation Sleep Questionnaire Difficulty falling asleep: No Difficulty staying asleep?: Yes Snoring: Yes Witnessed apneas: Yes Gasping arousals: No Nocturia: No GERD: Yes Vivid dreams: No Acting out dreams: No Abnormal behavior in sleep: No Abnormal movements in sleep: Yes (talk) Morning headaches: Yes Excessive daytime sleepiness: Yes (falls asleep when driving, and snacks.) Daytime naps: Yes Restless legs: Yes (R. plantar surface) Hallucinations: No Sleep paralysis: Yes (hands and arms ) Sleep Study: Yes CPAP: Yes
== END 2024-10-10 16:30 | disposition home or self-care (01) ==
LOC: HO.HSMS 15:15
PROVIDERS: PCP Family Medicine; Visit Provider Physician Assistant Medical
DX: M51.26 Other intervertebral disc displacement, lumbar region (principal); G43.109 Migraine with aura, not intractable, without status migrainosus; G47.33 Obstructive sleep apnea (adult) (pediatric); R42 Dizziness and giddiness
CPT/HCPCS: 99204

== ENCOUNTER → 2024-10-10 15:14 | Outpatient (BNVA) | payer OTHER, SELFPAY | PROVIDERS: PCP Family Medicine; Visit Provider Physician Assistant Medical | DX: M51.26 Other intervertebral disc displacement, lumbar region (principal); G43.109 Migraine with aura, not intractable, without status migrainosus; G47.33 Obstructive sleep apnea (adult) (pediatric); R42 Dizziness and giddiness | CPT/HCPCS: 99202 ==

== ENCOUNTER 2024-10-17 15:35 | Outpatient (AMB) | payer OTHER, SELFPAY ==
--- NOTE | 2024-10-17 15:46 | MHC.OFFVISCO ---
Intake Intake Visit Reasons: Anticoagulation Allergies peach Allergy (Severe, Verified 10/17/24 15:35) Angioedema Medication List - Last Reconciled 10/17/24 by Ruthy Newby RN ascorbic acid (vitamin C) 500 mg PO BID aspirin (Adult Aspirin Regimen) 81 mg PO DAILY 90 days cetirizine 10 mg PO DAILY cholecalciferol (vitamin D3) 50 mcg PO DAILY fluoride (sodium) 1.1% appl PO hydrocortisone 2.5% (Proctosol HC) 1 appl CA BID-QID PRN multivitamin (One Daily Multivitamin tablet) 1 tab PO DAILY omeprazole 20 mg PO DAILY PRN sumatriptan succinate 100 mg PO .prn MDD 200mg tolterodine ER 4 mg PO DAILY topiramate 25 mg PO DAILY MDD 25mg PO daily warfarin See Protocol orally 6mg daily; Nursing Note INR: 2.9 in therapeutic range Medications and supplements reviewed- states no changes Going to physical therapy for her back pain 2 days / week Denies any signs and symptoms of bleeding or bruising or clotting. Bleeding, bruising, clotting discussed Nutritional guidance given- make sure to eat weekly greens Dose: 6mg daily F/U INR: 1 month per pt request Patient verbalizes understanding of instructions given Anti-Coag Initial Assessment Social Hx Patient Tobacco Use Status: Never used Tobacco alcohol intake: never Alcohol intake frequency: does not drink Questionnaires HAS-BLED Does the patient had uncontrolled Hypertension?: No Does the patient have renal disease?: No Does the patient have liver disease?: No Does the patient have a history of stroke?: No Has the patient had major bleeding or predisposition to bleeding?: Yes Does the patient have labile INRs?: Yes Is the patient over 65 years of age?: No Is the patient on medications that gives them a predisposition to bleeding?: Yes Does the patient use alcohol?: No HAS-BLED Score: 3 CHADSVASC Age: <65 Gender: Female Does the patient have a history of CHF?: No Does the patient have a history of Hypertension?: No Does the patient have a history of Stroke/TIA/Thromboembolism?: No Does the patient have a history of Vascular Disease (prior MT, PAD or aortic plaque)?: Yes Does the patient have a history of Diabetes?: No CHADS VACS Score: 2 Oscar Prediction Score Rsk VTE Active Cancer: No Previous VTE, excluding superficial vein thrombosis: No Reduced mobility: No Already known Thrombophilic Condition: No With-in last month Trauma and/or Surgery: No Elderly 70 year or older: No Heart and/or Respiratory Failure: No Acute Myocardial infarction and/or Ischemic Stroke: No Acute Infection and/or Rheumatologic Disorder: Yes (rheumatic heart disease ) Obesity (BMI 30 or greater): No Ongoing Hormonal Treatment: No Score: 1 Oscar Score less than 4; Low Risk of VTE Oscar Score 4 or greater; High Risk of VTE Coding Level of Care Code Est Patient Level 1 Diagnoses Current use of anticoagulant therapy Z79.01 Results AMB INR Fingerstick AMB INR Fingerstick 2.9 Last Edit by Ruthy Newby RN on 10/17/24 15:44 manual entry Assessment & Plan Assessment & Plan (1) Current use of anticoagulant therapy: Comment: Continue Coumadin. Code(s): Z79.01 - long term care pharmacist (current) use of anticoagulants Category: Medical
[2024-10-17 17:07] LABS: Prothrombin Time Whole Bld POC 34.3 sec (11.1-13.5); ~PT, ~INR - Anti Coag Clinic 2.9 (0.9-1.1)
--- OUTSIDE RECORDS SUMMARY | 2024-10-17 19:05 | XMS_ITS | Clinical Summary ---
Author Organization [facility] Address [address] [place] [address] Care Team Providers Care Trekking Guide Name Role Phone Manfred Clara Primary Care Provider [phone] Allergies No known active allergies Medications aspirin [...] complete this topic Procedures * Due to [place] state law, this organization might not be sharing negative HIV tests. Procedure Name Priority Date/Time Associated Diagnosis Comments PAP Routine 12/17/2020 2:37 PM EDT Hematometra from Last 3 Months or Most Recently Relevant to Health Maintenance Insurance [facility] HSNO/FREE [place] [place] [address] Care Teams Trekking Guide Relationship Specialty Start Date End Date Clara Shearer [address] [place] [address] PCP - General Family Medicine 05/26/20
--- OUTSIDE RECORDS SUMMARY | 2024-10-17 19:05 | XMS_ITS | Encounter Summary ---
Author Organization [employer] Address [address] [place] [address] 7 [place] [address] Care Team Providers Care Colon Therapist Name Role Phone Clara Shearer MD Primary Care Provider [phone] Reason for Visit * Reason Onset Date Comments Letter for School/Work 08/02/2022 Encounter Details Date Type Department Care Team ([facility] st Contact Info) Description 08/02/2022 Telephone [facility] MEDICINE [address] [place], [place] [phone] Clara Shearer MD [address] [place], [place] [phone] Letter for School/Work Social History Tobacco Use [...] a upcoming procedure on 08-19-22. Fax number [phone] Any question please contact Ambreen at [phone] * Telephone Encounter - Khang Garcia - 08/04/2022 2:41 PM EST Tc from pankaj with [facility] [place] call regarding message below Please contact pankaj at [phone] * Telephone Encounter - Ronda Mahan LPN - 08/04/2022 2:41 PM EST Kelly, this should be done upstairs we do not do letters regarding medication stop or start. Please discuss with Dr. Shearer on what she wants and you can call [facility] to fax that order/letteror if they will take verbal orders from you that is even easier. * Telephone Encounter - Kelly Campuzano RN - 08/02/2022 3:33 PM EST Pt having procedure (dilation and curettage with hysteroscopy to place mirena) at [facility] 08/19/22. They are requesting a letter stating when pt should stop and restart coumadin (how many days before and after). * Telephone Encounter - Khang Garcia - 08/02/2022 2:48 PM EST Tc from claudia with [facility] requesting a letter stating when pt will be stopping medication ( warfarin 2 mg ) prior to OP Please contact claudia at [phone] ext [phone] documented in this encounter Plan of Treatment Upcoming Encounters Date Type Department Care Team (Late st Contact Info) Description 10/31/2024 2:00 PM EDT Office Visit [facility] ADULT DENTAL [address] [place], [place] [phone] Olga, Katt [address] [place], [place] [phone] documented as of this encounter Visit Diagnoses Not on filedocumented in this encounter Care Teams Colon Therapist Relationship Specialty Start Date End Date Clara Shearer MD [address] [place] [address] [place] [address] PCP - General Family Medicine 07/24/18 documented as of this encounter
--- OUTSIDE RECORDS SUMMARY | 2024-10-17 19:05 | XMS_ITS | Encounter Summary ---
Author Organization [employer] Address [address] [facility] 7t [place] [address] Care Team Providers Care Field Inspector Name Role Phone Clara Shearer MD Primary Care Provider [phone] Reason for Visit * Reason Comments Med Refill Encounter Details Date Type Department Care Team (Late st Contact Info) Description 10/08/2024 Refill [facility] [address] [place], [place] [phone] Clara Shearer MD [address] [place], [place] [phone] Social History Tobacco Use Types Packs/Day Years [...] Description 10/31/2024 2:00 PM EDT Office Visit [facility] ADULT [facility] [address] [place] [address] Olga, Katt [address] [place] [address] documented as of this encounter Visit Diagnoses Not on filedocumented in this encounter Additional Health Concerns Assessment Noted Time PHQ-9 Depression Total Score: 0 10/17/19 24 3:45 PM EDT documented as of this encounter Care Teams Field Inspector Relationship Specialty Start Date End Date Clara Shearer MD [address] [place], [place] [phone] PCP - General Family Medicine 07/24/18 documented as of this encounter
--- OUTSIDE RECORDS SUMMARY | 2024-10-17 19:05 | XMS_ITS | Encounter Summary ---
Author Organization [employer] Address [address] [facility] 7t [place] [address] Care Team Providers Care Physician Relations Specialist Name Role Phone Clara Shearer MD Primary Care Provider [phone] Encounter Details Date Type Department Care Team (Late st Contact Info) Description 10/17/2024 Orders Only GENERIC EXTERNAL DATA DEPARTMENT Provider, [...] Description 10/31/2024 2:00 PM EDT Office Visit [facility] ADULT DENTAL [address] [place] [address] Olga, Katt [address] [place] [address] documented as of this encounter Procedures Procedure Name Priority Date/Time Associated Diagnosis Comments PROTHROMBIN TIME WHOLE BLD POC Routine 10/17/2024 3:39 PM EDT ~PT, ~INR - ANTI COAG CLINIC Routine 10/17/2024 3:39 PM EDT documented in this encounter Results * (ABNORMAL) PROTHROMBIN TIME WHOLE BLD POC (10/17/2024 3:39 PM EDT) Protime 34.3(H) 11.1 - 13.5 sec [facility] 10/17/2024 3:39 PM EDT 10/17/2024 5:07 PM EDT us Generic External Data Provider LAB BLOOD ORDERAB LES Final Result [facility] [address] [place] [phone] [phone] * (ABNORMAL) ~PT, ~INR - ANTI COAG CLINIC (10/17/2024 3:39 PM EDT) Prothrombin Time INR 2.9(H) 0.9 - 1.1 [facility] Comment:METER #: [id number] TERNATIONAL NORMALIZED RATIO (INR) REFERENCE RANGES Reference RangeFor patients not on anticoagulant therapy: 0.9 - 1.1INR ranges for oral anticoagulanttherapy:For prevention and treatment of venous thrombosis and pulmonary embolism: 2.0 - 3.0For acute myocardial infarction with aspirin therapy: 2.0 - 3.0For acute myocardial infarction without aspirin therapy: 3.0 - 4.0For patients with mechanical prosthetic heart valves: 2.5 - 3.5 10/17/2024 3:39 PM EDT 10/17/2024 5:07 PM EDT us Generic External Data Provider LAB BLOOD ORDERAB LES Final Result [facility] [address] [place] [phone] [phone] documented in this encounter Visit Diagnoses Not on filedocumented in this encounter Additional Health Concerns Assessment Noted Time PHQ-9 Depression Total Score: 0 10/17/19 24 3:45 PM EDT documented as of this encounter Care Teams Physician Relations Specialist Relationship Specialty Start Date End Date Clara Shearer MD [address] [place] [phone] PCP - General Family Medicine 07/24/18 documented as of this encounter
--- OUTSIDE RECORDS SUMMARY | 2024-10-17 19:05 | XMS_ITS | Encounter Summary ---
Author Organization [employer] Address [address] [facility] [address] [place] [address] Care Team Providers Care Cooking Casing And Drying Supervisor Name Role Phone Clara Shearer MD Primary Care Provider [phone] Encounter Details Date Type Department Care Team [...] Description 10/31/2024 2:00 PM EDT Office Visit [facility] [address] [place] [address] Olga, Katt [address] [place] [address] documented as of this encounter Procedures Procedure Name Priority Date/Time Associated Diagnosis Comments BI MAMMOGRAM SCREENING TOMOSYNTHESIS BILATERAL Routine 10/04/2024 3:55 PM EDT PROTHROMBIN TIME WHOLE BLD POC Routine 09/26/2024 4:03 PM EST ~PT, ~INR - ANTI COAG CLINIC Routine 09/26/2024 4:03 PM EST documented in this encounter Results * BI Mammogram Screening Tomosynthesis Bilateral (10/04/2024 3:55 PM EDT) Anatomical Region Laterality Modality Breast Bilateral Mammography 10/04/2024 3:55 PM EDT Narrative 10/13/2024 6:12 PM EDT ? [facility] ? [address] ?[place] [address] ?[phone] ? Mammography Report ? Signed ? Patient: Caizan,Gerardina ?MR#: [id number] ?? [id number] ? : 1975 ?Acct:[id number] ? Age/Sex: 49 / F ?ADM Date: 10/04/24 ? Loc: HO.MAMMO ? Attending Dr: Clara Shearer MD ? Ordering Physician: Clara Shearer MD ?Results: 1Negative ? Date of Service: 10/04/24 ?Follow Up: 1 Year From Orig ?? inal Mammogram ? Procedure(s): MM tomosynthesis screening BI ?? Accession Number(s): [id number] ? cc: Clara Shearer MD ? EXAMINATION: ?? MM SCREENING DIGITAL BREAST TOMOSYNTHESIS, BILATERAL ? CLINICAL INFORMATION: ? Screening. Asymptomatic. ? COMPARISON: ?? Mammography: Comparison is made with available priors ? TECHNIQUE: ?? Digital breast mammography with tomosynthesis is performed in both the ?? craniocaudal and mediolateral oblique views along with computer-aided ?? detection (CAD). ? FINDINGS: ?? There are scattered areas of fibroglandular density (ACR BI-RADS breast ?? composition Category b). ? There are no significant masses, abnormal calcifications, or other ?? abnormalities. ? MM/MM tomosynthesis screening BI ?? IMPRESSION: ?? No mammographic evidence of malignancy. ? ASSESSMENT: ? BI-RADS BI-RADS 1 - Negative ? RECOMMENDATION: ?? Routine annual mammography screening. ? 1 year F/U ? This examination should not preclude the clinical evaluation of a ?? suspicious palpable abnormality. ? This patient's information was entered into a reminder system with a ?? target due date for their next mammogram. ? Electronically signed by: ??June Schrader DO ??10/13/2024 06:09 PM EDT ? Dictated By: ?June Schrader DO ? Signed By: ?<Electronically signed by June Schrader, DO in OV> ? 10/13/24 1809 ? DD/ 1555 ? TD/TT: 10/04/24 1608 ? Tufting Machine Operator Single Needle: ? Procedure Note Donotarmindainterpreter, Image - 10/13/2024 [facility] [address] [place] [address] Mammography Report Signed Patient: Yoel Martell#: [id number] : 1975Acct:[id number] Age/Sex: 49 / FADM Date: 10/04/24 Loc: MARIE Attending Dr: Clara Shearer MD Ordering Physician: Clara Shearer MDResults: 1Negative Date of Service: 10/04/24Follow Up: 1 Year From Orig ina Mammogram Procedure(s): MM tomosynthesis screening BI Accession Number(s): [id number] cc: Clara Shearer MD EXAMINATION: MM SCREENING DIGITAL BREAST TOMOSYNTHESIS, BILATERAL CLINICAL INFORMATION: Screening. Asymptomatic. COMPARISON: Mammography: Comparison is made with available priors TECHNIQUE: Digital breast mammography with tomosynthesis is performed in both the craniocaudal and mediolateral oblique views along with computer-aided detection (CAD). FINDINGS: There are scattered areas of fibroglandular density (ACR BI-RADS breast composition Category b). There are no significant masses, abnormal calcifications, or other abnormalities. MM/MM tomosynthesis screening BI IMPRESSION: No mammographic evidence of malignancy. ASSESSMENT: BI-RADS BI-RADS 1 - Negative RECOMMENDATION: Routine annual mammography screening. 1 year F/U This examination should not preclude the clinical evaluation of a suspicious palpable abnormality. This patient's information was entered into a reminder system with a target due date for their next mammogram. Electronically signed by: June Schrader DO 10/13/2024 06:09 PM EDT Dictated By: June Schrader DO Signed By: <Electronically signed by June Schrader DO in OV> 10/13/24 1809 DD/ 1555 TD/TT: 10/04/24 1608 Tufting Machine Operator Single Needle: us Clara Shearer MD IMG BI PROCEDURES Edited Result - Final * (ABNORMAL) PROTHROMBIN TIME WHOLE BLD POC (09/26/2024 4:03 PM EST) Protime 44.2(H) 11.1 - 13.5 sec [facility] 09/26/2024 4:03 PM EST 09/26/2024 4:04 PM EST us Generic External Data Provider LAB BLOOD ORDERAB LES Final Result [facility] [address] [place] [phone] * (ABNORMAL) ~PT, ~INR - ANTI COAG CLINIC (09/26/2024 4:03 PM EST) Prothrombin Time INR 3.7(H) 0.9 - 1.1 [facility] Comment:METER #: [id number] TERNATIONAL NORMALIZED RATIO (INR) REFERENCE RANGES Reference [...] Provider LAB BLOOD ORDERAB LES Final Result [facility] [address] [place] [address] [phone] documented in this encounter Visit Diagnoses Not on filedocumented in this encounter Additional Health Concerns Assessment Noted Time PHQ-9 Depression Total Score: 0 10/17/19 24 3:45 PM EDT documented as of this encounter Care Teams Cooking Casing And Drying Supervisor Relationship Specialty Start Date End Date Clara Shearer MD [address] [place] [address] PCP - General Family Medicine 07/24/18 documented as of this encounter
--- OUTSIDE RECORDS SUMMARY | 2024-10-17 19:05 | XMS_ITS | Referral Summary ---
Author Organization [facility] Address [address] [place] [address] Care Team Providers Care Welding Specialist Name Role Phone Manfred Clara Primary Care Provider [phone] Allergies No known active allergies Medications aspirin [...] Not on file Procedures * Due to [place] state law, this organization might not be sharing negative HIV tests. Procedure Name Priority Date/Time Associated Diagnosis Comments PAP Routine 12/17/2020 2:37 PM EDT Hematometra from Last 3 Months or Most Recently Relevant to Health Maintenance Insurance [facility] HS/FREE [place] [address] [address] Care Teams Welding Specialist Relationship Specialty Start Date End Date Clara Shearer [address] [place] [address] PCP - General Family Medicine 05/26/20
--- OUTSIDE RECORDS SUMMARY | 2024-10-17 19:05 | XMS_ITS | Encounter Summary ---
Author Organization [employer] Address [address] [facility] [address] [place] [address] Care Team Providers Care Ware Cleaner Name Role Phone Clara Shearer MD Primary Care Provider [phone] Reason for Referral * Consultation (Routine) - Authorized Specialty Diagnoses / Procedures Referred By Ron montoya Referred To Contact Optometry Diagnoses Routine eye exam Clara Shearer MD [address] [place] [address] Phone: tel: fax: Referral ID Status Reason Start Date Expiration Date Visits Requested Visits Authorized [id number] Authorized Specialty Services Required 10/11/2024 10/11/2025 1 1 Reason for Visit * Reason Onset Date Comments Referral 10/11/2024 Encounter Details Date Type Department Care Team ([facility] st Contact Info) Description 10/11/[address] [facility] [address], [place] [phone] Clara Shearer MD [address], [place] [phone] Referral Social History Tobacco Use Types Packs/Day Years [...] t he electric, gas, oil or water [employer] threatened to shut off services in your [...] encounter Miscellaneous Notes * Telephone Encounter - Kelly Chau RN - 10/11/2024 11:42 AM EDT Referral placed. There is a wait list. They will call pt with an appt. * Telephone Encounter - Marciano Jewell - 10/11/2024 11:20 AM EDT Tc from pt requesting a referral to [facility] Contact pt at [phone] documented in this encounter Plan of Treatment Upcoming Encounters Date Type Department Care Team (Late st Contact Info) Description 10/31/2024 2:00 PM EDT Office Visit [facility] ADULT D[facility] [address] [place] [address] Olga, Katt [address] [place] [address] Scheduled Referrals Name Type Priority Associated Diagnoses Orde r Schedule Referral to Optometry Outpatient Referral Routine Routine eye exam Expected: 10/11/2024 (Approximate), Expires: 10/11/2025 documented as of this encounter Visit Diagnoses Diagnosis Routine eye exam Examination of eyes and vision documented in this encounter Additional Health Concerns Assessment Noted Time PHQ-9 Depression Total Score: 0 10/17/19 24 3:45 PM EDT documented as of this encounter Care Teams Ware Cleaner Relationship Specialty Start Date End Date Clara Shearer MD [address] [place] [address] PCP - General Family Medicine 07/24/18 documented as of this encounter
--- OUTSIDE RECORDS SUMMARY | 2024-10-17 19:05 | XMS_ITS | Clinical Summary ---
Author Organization [employer] Address [address] [facility] [address] [place] [address] Care Team Providers Care Optical Manager Name Role Phone Clara Shearer MD Primary Care Provider [phone] Allergies No known active allergies Medications docusate sodium (Colace) 100 MG capsule Take 1 tablet by mouth every 12 (twelve) hours. 07/21/20 20 Active ferrous sulfate 325 (65 Fe) MG tablet Take 1 tablet by mouth every 12 (twelve) hours. 04/21/20 21 Active HM ClearLax 17 GM/SCOOP powder 17 g. 08/09/19 23 Active senna (Senokot) 8.6 MG tablet Take 2 tablets by mouth at bedtime. 08/09/19 23 Active acetaminophen (Tylenol Extra Strength) 500 MG tablet Take 2 tablets (1,000 mg) by mouth every 6 (six) hours if needed for mild pain or moderate pain. 30 tablet 1 01/14/20 23 Active Minoxidil 5 % foam Apply to scalp 1/2 capsul once daily 60 g 3 03/07/20 23 Active cyclobenzaprine (Flexeril) 5 MG tablet May take 1 or 2 tablets at bedtime as needed for muscle spasm 60 tablet 3 03/07/20 23 Active omeprazole (PriLOSEC) [address] capsule Take 20 mg by mouth in the morning. 03/21/20 23 Active Ascorbic Acid (vitamin C) 500 MG tablet TAKE 1 TABLET BY MOUTH TWICE DAILY 60 tablet 11 08/30/19 24 Active D3 Super Strength 50 MCG (2000 UT) capsule TAKE 1 CAPSULE BY MOUTH EVERY DAY 30 capsule 11 08/30/19 24 Active Multiple Vitamin (Multivitamin) tablet TAKE 1 TABLET BY MOUTH EVERY DAY WITH FOOD 90 tablet 08/31/19 24 Active SUMAtriptan (Imitrex) 50 MG tablet TAKE 1 TABLET BY MOUTH AT ONSET OF MIGRAINE. MAY REPEAT ONCE AFTER 2 HOURS IF NEEDED 9 tablet 11/22/19 24 Active aspirin 81 MG EC tablet Take 81 mg by mouth Once per day. Active warfarin (Coumadin) 2 MG tabletIndicatio ns:History of mechanical aortic valve replacement TAKE 2 TO 4 TABLETS BY MOUTH EVERY DAY DIRECTED BY COUMADIN CLINIC 120 tablet 11 01/22/20 24 Active Sodium Fluoride (PreviDent 5000 Plus) 1.1 % cream Apply 1 mg to teeth 3 times daily. 1 g 3 03/06/20 24 Active tolterodine LA (Detrol LA) 4 MG 24 hr capsule Take 4 mg by mouth Once per day. Active amoxicillin (Amoxil) 500 MG capsule Take 4 capsules of amoxicillin 500 mg 1 hour prior dental procedure 12 capsule 09/02/19 25 Active cetirizine (ZyrTEC) 10 MG tablet TAKE 1 TABLET BY MOUTH EVERY DAY 30 tablet 11 10/09/19 25 Active cetirizine (ZyrTEC) 10 MG tablet TAKE 1 TABLET BY MOUTH EVERY DAY 30 tablet 11 04/26/20 23 025 Discontinued Active Problems Problem Noted Date Diagnosed Date Chronic headache 05/30/2024 Assessment & Plan (05/30/2024 12:20 PM EST): - patient was diagnosed with AYESHA - will try prescribing CPAP - patient reports improvement of symptoms since she tried imitrex AYESHA (obstructive sleep apnea) 05/30/2024 Assessment & Plan (05/30/2024 12:21 PM EST): - patient has sleep study which was ordered by antique finisher. Patient was referred to sleep medicine specialist [...] PT with minimal improvement - evaluated by [facility] orthopedist in March 2024. MRI was ordered and patient was referred to [facility] for injection treatment. - patient has received 3 injection treatments with no improvement - patient was advised to contact [facility] orthopedist to inquire MRI Assessment & Plan [...] pancreatitis in November 2022 - following with [facility] GI, last seen in Feb 2023 - [...] on warfarin - previously prescribed metoprolol by antique finisher; no longer on the medication due to hypotension / dizziness - continue following with antique finisher, [facility] Dr Haynes - last TTE in January 2022, mild mitral valve stenosis - continue current treatment plan per cardiology Assessment & Plan (03/19/2023 1:47 PM EDT): - s/p AVR in Feb 2010 - on warfarin - previously prescribed metoprolol by antique finisher; no longer on the medication due to hypotension / dizziness - continue following with antique finisher, [facility] Dr Haynes - last TTE in January 2022, mild mitral valve stenosis - continue current treatment plan per cardiology Assessment & Plan (11/22/2022 11:35 AM EDT): - s/p AVR in Feb 2010 - on warfarin - previously prescribed metoprolol by antique finisher; no longer on the medication due to hypotension / dizziness - continue following with antique finisher, [facility] Dr Haynes - last TTE in January 2022, mild mitral valve stenosis - continue current treatment plan per cardiology Chronic anticoagulation 11/22/2022 Assessment & Plan (05/30/2024 1:41 PM EST): - indication: Aortic valve replacement - medication warfarin - goal INR 2-3 - followed by [facility] anticoagulation clinic - last INR was 2.0 on 03/01/23 - continue current management plan Assessment & Plan (03/19/2023 1:49 PM EDT): - indication: Aortic valve replacement - medication warfarin - goal INR 2-3 - followed by [facility] anticoagulation clinic - last INR was 2.0 on 03/01/23 - continue current management plan Assessment & Plan (11/22/2022 11:40 AM EDT): - indication: Aortic valve replacement - medication warfarin - goal INR 2-3 - followed by [facility] anticoagulation clinic - last INR was 2.4 [...] polyp, benign -Pt has follow-up appointment with DIRECTOR ERP -Pt is on Coumadin -Pt requested Hysterectomy, pt will follow-up with DIRECTOR ERP with possible hysterectomy in future Assessment & Plan (11/08/2022 4:50 PM EDT): s/p Endometrial Curetting's, polyp, benign -Pt has follow-up appointment with DIRECTOR ERP -Pt is on Coumadin -Pt requested Hysterectomy, pt will follow-up with DIRECTOR ERP with possible hysterectomy in future Cyst of ovary 09/22/2022 Iron deficiency anemia due to chronic blood loss 09/22/2022 Assessment & Plan (05/30/2024 1:41 PM EST): - AUB in a setting of anticoagulation - s/p removal of endometrial polyp, benign - Pt has follow-up appointment with DIRECTOR ERP - Pt is taking Coumadin Assessment & Plan (11/03/2023 12:09 PM EDT): - AUB in a setting of anticoagulation - s/p removal of endometrial polyp, benign -Pt has follow-up appointment with DIRECTOR ERP -Pt is taking Coumadin Assessment & Plan (11/08/2022 4:45 PM EDT): Due to AUB: S/p Endometrial Curetting's, polyp, benign -Pt has follow-up appointment with DIRECTOR ERP -Pt is taking Coumadin Vitamin D deficiency 12/04/2018 Assessment & Plan (11/03/2023 12:08 PM EDT): -continue vitamin D supplement Presence of subdermal contraceptive implant 09/2014 History of mechanical aortic valve replacement 0 04/07/2015 Assessment & Plan (05/30/2024 12:22 PM EST): - Resp Therapist: [facility], 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 Mechanical aortic valve functioning normally. Moderate mitral valve stenosis. No regurgitation. - Continue warfarin - Continue SBE prophylaxis. Assessment & Plan (11/03/2023 12:18 PM EDT): - Resp Therapist: Dr. Dallas Duran, last seen in Aug 2023 - s/p AVR for rheumatic disease and aortic regurgitation in Feb 2010 - EKG showed sinus rhythm and RBBB - echocardiogram 08/30/23 EF 57%. Mechanical aortic valve functioning normally. Moderate mitral valve stenosis. No regurgitation. - Continue warfarin - Continue SBE prophylaxis. Assessment & Plan (03/19/2023 1:47 PM EDT): - Resp Therapist: Dr. Dallas Duran, last seen in Jul 2022 - s/p AVR for rheumatic disease and aortic regurgitation in Feb 2010 - EKG showed sinus rhythm and RBBB - echocardiogram JANUARY 2022 nml LVEF 60-65%; mild mitral valve stenosis - Continue aspirin and warfarin, per cardiology. - Continue SBE prophylaxis. Assessment & Plan (11/22/2022 11:37 AM EDT): - Resp Therapist: Dr. Dallas Duran, last seen in Jul [...] & Plan (05/30/2024 12:22 PM EST): - Resp Therapist: Dr. Dallas Duran, last seen in December 2023 - s/p AVR for rheumatic disease and aortic regurgitation due to rheumatic heart disease in Feb 2010 - EKG showed sinus rhythm and RBBB - echocardiogram in Aug 2023, EF 59%. Normally functioning AV. Moderate mitral valve stenosis. - Continue warfarin, per cardiology. - Continue SBE prophylaxis. Assessment & Plan (11/03/2023 12:20 PM EDT): - 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 Normally functioning AV. Moderate mitral valve stenosis. - Continue warfarin, per cardiology. - Continue SBE prophylaxis. Assessment & Plan (11/22/2022 11:36 AM EDT): - [facility], last seen in Jul 2022 - [...] EDT): - 12/03/22 Evaluated and treated at [facility] ED. WBC 13k, Lipase 247, CT showed pancreatitis. Given IVF and analgesics. - Seen by [facility] GI in December 2022 - MRI on 03/01/23 was normal. - HgbA1C 5.9% - Follow recommendations per GI. Menometrorrhagia 09/22/2022 03/07/2023 Pain in female pelvis 09/22/20222022 Encounters Date Type Department Care Team Description 10/17/2024 Orders Only GENERIC EXTERNAL DATA DEPARTMENT Provider, Generic External Data 10/11/2024 Telephone [facility] [address] [place] [address] Clara Shearer MD Referral 10/08/2024 Refill [facility] [address] [place] [address] Clara Shearer MD 10/07/2024 Telephone [address] [place] [address] Clara Shearer MD 10/01/2024 Telephone [facility] [address] [facility] [place] [address] Clara Shearer MD CHART PREP 09/26/2024 Orders Only GENERIC EXTERNAL DATA DEPARTMENT Provider, Generic External Data 09/02/2024 Orders Only [facility] ADULT DENTAL [address] [facility] [place] [address] Lyn-Méndez, Daina, DDS 09/02/2024 Telephone [facility] [address] [facility] [place] [address] Lyn-Méndez, Daina, DDS pre medi antibiotic 08/28/2024 Orders Only GENERIC EXTERNAL DATA DEPARTMENT Provider, Generic External Data 08/08/2024 Telephone [facility] [address] [facility] [place] [address] Faina Gayle [place] august recall 07/31/2024 Orders Only GENERIC EXTERNAL DATA DEPARTMENT Provider, Generic External Data from Last 3 Months Immunizations Name Administration [...] Description 10/31/2024 2:00 PM EDT Office Visit [facility] [address] [place] [address] Olga, Katt [address] [place] [address] Health Maintenance Due Date Last Done Comments [...] 12/10/2024 024, 11/16/2023, 10/17/2023, Additional history exists Dental X-Ray: [place] 12/28/2024 12/28/19 24, 02/03/2021, 09/26/2019 SDOH Screening 05/22/2025 05/22/2024 Alcohol/Substance Use Screening 05/30/2025 05/30/2024 Tobacco Screening 05/30/2025 05/30/2024 Cervical Cancer Screening 11/13/2025 HPV/Cotest 11/13/2025 11/13/2020, 08/20/2019 Mammogram 10/04/2026 10/04/2024, 06/0 08/2022, 12/23/2022, Additional history exists Zoster Vaccines (1 of 2) 2027 Lipid Panel 11/15/2028 11/16/2023, 052 11/2022, 05/12/2022, Additional history exists DTaP/Tdap/Td Vaccines (3 [...] [facility] Routine 10/17/2024 3:39 PM EDT BI MAMMOGRAM SCREENING TOMOSYNTHESIS BILATERAL Routine 10/04/2024 [...] LDL Routine 11/16/2023 3:27 PM EDT Prediabetes HIV 1 RNA, QUANTITATIVE REAL TIME PCR [...] WHOLE BLD POC (10/17/2024 3:39 PM EDT) Only the most recent of4 resultswithin the time period is included. Protime 34.3(H) 11.1 - 13.5 sec [facility] 10/17/2024 3:39 PM EDT 10/17/2024 5:07 PM EDT us Generic External Data Provider LAB BLOOD ORDERAB LES Final Result [facility] [address] [place] [address] [phone] * (ABNORMAL) ~PT, ~INR - ANTI [facility]INIC (10/17/2024 3:39 PM EDT) Only the most recent of4 resultswithin the time period is included. Prothrombin Time INR 2.9(H) 0.9 - 1.1 [facility] Comment:METER #: [id number] TERNATIONAL NORMALIZED RATIO (INR) REFERENCE RANGES Reference [...] Provider LAB BLOOD ORDERAB LES Final Result [facility] [address] [place] [phone] * BI Mammogram Screening Tomosynthesis Bilateral (10/04/2024 3:55 PM EDT) Anatomical Region Laterality Modality Breast Bilateral Mammography 10/04/2024 3:55 PM EDT Narrative 10/13/2024 6:12 PM EDT ? [facility] ? [address] ?[place] ?[phone] ? Mammography Report ? Signed ? Patient: Caizan,Gerardina ?MR#: [id number] ?? 2088 ? : 1975 ?Acct:[id number] ? Age/Sex: 49 / F ?ADM Date: 10/04/24 ? Loc: HO.MAMMO ? Attending Dr: Clara Shearer MD ? Ordering Physician: Clara Shearer MD ?Results: 1Negative ? Date of Service: 10/04/24 ?Follow Up: 1 Year From Orig ?? inal Mammogram ? Procedure(s): MM tomosynthesis screening BI ?? Accession Number(s): [id number] ? cc: Clara Shearer MD ? EXAMINATION: [...] DD/ 1555 ? TD/TT: 10/04/24 1608 ? Workforce Management Manager: ? Procedure Note Jose Pariis - 10/13/2024 [facility] [address] [place] [address] Mammography Report Signed Patient: Yoel Martell#: [id number] 2088 : 1975Acct:[id number] Age/Sex: 49 / FADM Date: 10/04/24 Loc: MARIE Attending Dr: Clara Shearer MD Ordering Physician: Clara Sheareresults: 1Negative Date of Service: 10/04/24Follow Up: 1 Year From Orig ina Mammogram Procedure(s): MM tomosynthesis screening BI Accession Number(s): [id number] cc: Clara Shearer MD EXAMINATION: MM SCREENING [...] 10/13/24 1809 DD/ 1555 TD/TT: 10/04/24 1608 Workforce Management Manager: Clara Shearer MD [facility] BI PROCEDURES Edited Result - Final * Hepatitis Panel, General (12/11/2023 4:30 PM EDT) Hepatitis A IgM Nonreactive Nonreactive [facility] Comment:IgM antibodies to HEMPHILL V not detected; does not exclude earlyacute or recovered HAV infection. ~Hepatitis B Surface Antibody REACTIVE Nonreactive [facility] Comment:REACTIVE: > 11.99 mI U/mL Hepatitis B Core Antibody Nonreactive Nonreactive [facility] Hepatitis C Antibody Nonreactive Nonreactive [facility] Comment:Antibodies to HCV no t detected; does not exclude early acuteHCV infection. Hepatitis B Surface Ag Negative Negative [facility] 12/11/2023 4:30 PM EDT 12/11/2023 4:33 PM EDT Generic External Data Provider LAB BLOOD ORDERAB LES Final Result Performing Organization Address [facility] Co de Phone Number [facility] [address] [place] [phone] * Hemoglobin A1c (12/11/2023 4:30 PM EDT) Hemoglobin A1c 5.7 <6.0 % [facility] Comment:Hemoglobin A1C Refer ence Range Adults: 4.8 - 6.0 % Non diabetic: < 6.0 % Goal: < 7.0 %Additional Action Suggested: > 8.0 %Note: Hemoglobin A1c results are invalid for patients with abnormal amounts of HbF. Blood transfusions may impact the HbA1c concentration in the patient sample. Estimated Average Glucose 117 mg/dL [facility] Comment:eAG = Estimated ave rage glucose which is %A1C expressed asaverage glucose, using the formula of the I8G-AfvhevyZafvwmy Glucose study (ADAG), Diabetes Care, Vol.31,#8,2007 12/11/2023 4:30 PM EDT 12/11/2023 4:33 PM EDT us Generic External Data Provider LAB BLOOD ORDERAB LES Final Result Performing Organization Address [facility] Co va Phone Number [facility] [address] [place] [phone] * (ABNORMAL) Lipid Panel with Reflex to Direct LDL (11/16/2023 3:27 PM EDT) Triglycerides 305(H) <150 mg/dL [facility] Comment:Desirable Triglyceri de: less than 150 mg/dLBorderline High Triglyceride 150-199 mg/dLHigh Triglyceride: 200-499 mg/dLVery High Triglyceride: greater than or equal to 5OO mg/dL Cholesterol 220(H) <200 mg/dL [facility] Comment:Desirable Cholestero l: less than 200 mg/dLBorderline High Cholesterol: 200-239 mg/dLHigh Cholesterol: greater than 239 mg/dL LDL Cholesterol Calculated 111(H) <100 mg/dL [facility] Comment:Desirable LDL: less than 100 mg/dLNear Optimal/Above Optimal LDL: 110- 129 mg/dLBorderline High LDL: 130-159 mg/dLHigh LDL: 160-189 mg/dLVery High LDL: greater than or equal to 190 mg/dL HDL Cholesterol 48 >40 mg/dL [facility] Comment:Desirable HDL: great er than 40 mg/dL Note: This HDL assay may give artificially low results in patients with liver disease. Blood 11/16/2023 3:27 PM EDT 11/16/2023 3:27 PM EDT us Clara Shearer MD LAB BLOOD ORDERABLES Final Resul t [facility] [address] [place] [phone] * HIV-1 RNA, Quantitative, Real-Time PCR (12/15/2022 8:09 AM EDT) HIV 1 RNA, QN PCR NOT DETECTED NOT DETECTED copies/mL [facility] [place] [facility] [employer] HIV 1 RNA, QN PCR NOT DETECTED NOT DETECTED Log copies/mL [facility] [place] [facility] Comment: This test was performed using Real-Time Polymerase Chain Reaction. Reportable Range: 20 copies/mL to 10,000,000 copies/mL (1.30 log copies/mL to 7.00 log copies/mL). Blood Venous blood specimen / Unknown 12/15/2022 8:09 AM EDT 12/15/2022 8:10 AM EDT Narrative [facility] - 12/23/2022 6:53 PM EDT FASTING:NO FASTING: NO us Yany RODRIGESP LAB BLOOD ORDERABLES Final Res ult [facility] [address], [place] [address] [facility] [place] [facility] [employer] [address] [place] [phone] * THINPREP PAP (11/13/2020 4:51 PM EDT) [...] historic and ?? current clinical information. ?? Right Of Way Supervisor : [facility] Comment: RK, CT(ASCP) CT screening location: [address] ??[phone] Interpretation/R esult: Negative for intraepithelial lesion or malignancy. [facility] LMP: NONE [facility]IV[facility] Prev. BX: NONE [facility]IV[facility] Prev. PAP: NONE GIVEN [facility] Review Right Of Way Supervisor : [facility] Comment: BLC,CT(ASCP) CT screening location: [address] ??[phone] SOURCE: None given [facility] Statement Of Adequacy: [facility] Comment: Satisfactory for evaluation. Endocervical/transformation zone component present. Age and/or menstrual status not provided 11/13/2020 4:51 PM EDT Ginette Her NP LAB PATHOLOGY ORDERABLES Final Result [facility] [address] * HPV GENOTYPES 16,18/45 (11/13/2020 4:51 PM EDT) HPV 16 RNA NOT DETECTED NOT DETECTED [facility] HPV 18/45 RNA NOT DETECTED NOT DETECTED [facility] Comment: Methodology: Pipe Racker Mediated Amplification The analytical performance characteristics of this assay have been determined by [facility]. The modifications have not been cleared or approved by the FDA. This assay has been validated pursuant to the CLIA regulations and is used for clinical purposes. 11/13/2020 4:51 PM EDT us Ginette Her NP LAB CYTOLOGY ORDERABLES Final R esult [facility] [address] from Last 3 Months or Most Recently Relevant to Health Maintenance Insurance [facility] Kelsea Perez [address] [place] [address] DENTAL - HSN FULL (MEDICAID) DENTAL-[facility] MEDICAID LIMITED ADULT Care Teams Optical Manager Relationship Specialty Start Date End Date Clara Shaerer MD [address] [place] [phone] PCP - General Family Medicine 07/24/18
--- OUTSIDE RECORDS SUMMARY | 2024-10-17 19:05 | XMS_ITS | Encounter Summary ---
Author Organization [employer] Address [address] [place] [address] 7 [place] [address] Care Team Providers Care Clinical Data Specialist Name Role Phone Clara Shearer MD Primary Care Provider [phone] Reason for Referral * Imaging (Routine) - Closed Specialty Diagnoses / Procedures Referred By Ron brewer Referred To Contact Radiology Diagnoses Metabolic dysfunction-associated steatotic liver disease (MASLD) Procedures US Abdomen Comp w elastography Clara Shearer MD [address] [place] [address] Phone: tel: fax: [address] Phone: tel: fax: Referral ID Status Reason Start Date Expiration Date Visits Re quested Visits Authorized [id number] Closed 11/17/2023 11/16/2024 1 1 Encounter Details Date Type Department Care Team (Late st Contact Info) Description 11/17/2023 Orders Only [facility] [address] [place], [place] [phone] Clara Shearer MD [address] [place], [place] [phone] Metabolic dysfunction-associated steatotic liver disease (MASLD) (Primary [...] Description 10/31/2024 2:00 PM EDT Office Visit [facility] ADULT DENTAL [address] [place], [place] [phone] Jignesh Espinozaaris [address] [place] [address] documented as of this encounter Procedures Procedure Name Priority Date/Time Associated Diagnosis Comments US ABDOMEN COMPLETE WITH ELASTOGRAPHY Routine 12/05/2023 9:26 AM EDT Metabolic dysfunction-associa ebony steatotic liver disease (MASLD) documented in this encounter Results * US Abdomen Comp w elastography (12/05/2023 9:26 AM EDT) Anatomical Region Laterality Modality Abdomen Ultrasound 12/05/2023 9:26 AM EDT Narrative 12/12/2023 9:41 AM EDT ? [facility] ?[address] ?[place] [address] ? Ultrasound Report ? Signed ? Patient: Jasbir,Thalia ?MR#: [id number] ?? 2087 ? : 1975 ?Acct:[id number] ? Age/Sex: 48 / F ?ADM Date: 12/05/23 ? Loc: HO.US ? Attending Dr: Clara Shearer MD ? Ordering Physician: Clara Shearer MD ?? Date of Service: 12/05/23 ?? Procedure(s): US abdomen comp w elastography ?? Accession Number(s): [id number] ? cc: Clara Shearer MD ? EXAMINATION: [...] 0937 ? DD/ 0926 ? TD/TT: ? Wireworker: SS ? Procedure Note Donhuyter, Image - 12/12/2023 [place] [address] Ultrasound Report Signed Patient: Yoel Martell#: [id number] 2088 : 1975Acct:[id number] Age/Sex: 48 / FADM Date: 12/05/23 Loc: HO.US Attending Dr: Clara Shearer MD Ordering Physician: Clara Shearer MD Date of Service: 12/05/23 Procedure(s): US abdomen comp w elastography Accession Number(s): [id number] cc: Clara Shearer MD EXAMINATION: US COMPLETE [...] MD in OV> 12/12/23936 DD/ 5 TD/TT: Wireworker: SS us Clara Shearer MD IMG US PROCEDURES Final Result documented in this encounter Visit Diagnoses Diagnosis Metabolic dysfunction-associated steatotic liver disease (MASLD)- Primary documented in this encounter Additional Health Concerns Assessment Noted Time PHQ-9 Depression Total Score: 0 10/17/19 24 3:45 PM EDT documented as of this encounter Care Teams Clinical Data Specialist Relationship Specialty Start Date End Date Clara Shearer MD [address] [place] [phone] PCP - General Family Medicine 07/24/18 documented as of this encounter
--- OUTSIDE RECORDS SUMMARY | 2024-10-17 19:05 | XMS_ITS | Encounter Summary ---
Author Organization [employer] Address [address] [place] [address] 7t [place] [address] Care Team Providers Care Paint Roller Covers Supervisor Name Role Phone Clara Shearer MD Primary Care Provider [phone] Encounter Details Date Type Department Care Team (Latest Contact Info) Description 09/26/2019 Abstract [facility] CONVERSIONS Dental, Provider, DDS Social [...] Description 10/31/2024 2:00 PM EDT Office Visit [facility] ADULT DENTAL [address] [place] [address] Olga, Katt [address] [place] [address] documented as of this encounter Visit Diagnoses Not on filedocumented in this encounter Care Teams Paint Roller Covers Supervisor Relationship Specialty Start Date End Date Clara Shearer MD [address] [place] [address] PCP - General Family Medicine 07/24/18 documented as of this encounter
--- OUTSIDE RECORDS SUMMARY | 2024-10-17 19:05 | XMS_ITS | Encounter Summary ---
Author Organization [employer] [facility] Address [address] [facility] 7t [place] [address] Care Team Providers Care Nut Chopper Name Role Phone Clara Shearer MD Primary Care Provider [phone] Encounter Details Date Type Department Care Team (Late st Contact Info) Description 07/20/[address] [facility] MEDICINE [address] [place] [address] Clara Shearer MD [address] [place] [address] Social History Tobacco Use Types Packs/Day Years [...] PM EDT Office Visit [facility] ADULT DENTAL [address] [place] [address] Olga, Katt [address] [place] [address] documented as of this encounter Visit Diagnoses Not on filedocumented in this encounter Care Teams Nut Chopper Relationship Specialty Start Date End Date Clara Shearer MD [address] [place] [address] PCP - General Family Medicine 07/24/18 documented as of this encounter
--- OUTSIDE RECORDS SUMMARY | 2024-10-17 19:05 | XMS_ITS | Encounter Summary ---
Author Organization [employer] Address [address] [facility] 7t [place] [address] Care Team Providers Care Motor Installer Name Role Phone Clara Shearer MD Primary Care Provider [phone] Encounter Details Date Type Department Care Team ([facility] st Contact Info) Description 10/07/2024 Telephone [facility] MEDICINE [address] [place], [place] [phone] Clara Shearer MD [address] [place], [place] [phone] Social History Tobacco Use Types Packs/Day Years [...] encounter Miscellaneous Notes * Telephone Encounter - Kae De Leon - 10/07/2024 11:36 AM EDT Pt no showed to apt on 10/07/2024 letter will be sent out to rs apt documented in this encounter Plan of Treatment Upcoming Encounters Date Type Department Care Team (Late st Contact Info) Description 10/31/2024 2:00 PM EDT Office Visit [facility] ADULT DENTAL [address] [place] [address] Olga, Katt [address] [place] [address] documented as of this encounter Visit Diagnoses Not on filedocumented in this encounter Additional Health Concerns Assessment Noted Time PHQ-9 Depression Total Score: 0 10/17/19 24 3:45 PM EDT documented as of this encounter Care Teams Motor Installer Relationship Specialty Start Date End Date Clara Shearer MD [address] [place] [address] PCP - General Family Medicine 07/24/18 documented as of this encounter
--- OUTSIDE RECORDS SUMMARY | 2024-10-17 19:05 | XMS_ITS | Encounter Summary ---
Author Organization [employer] Address [address] [facility] 7t [place] [address] Care Team Providers Care Toppiece Chopper Name Role Phone Clara Shearer MD Primary Care Provider [phone] Reason for Visit * Reason Onset Date Comments CHART PREP 10/01/2024 Encounter Details Date Type Department Care Team ([facility] st Contact Info) Description 10/01/2024 Telephone [facility] MEDICINE [address] [place], [place] [phone] Clara Shearer MD [address] [place], [place] [phone] CHART PREP Social History Tobacco Use Types [...] the past 12 months, has t he [employer] gas, oil or water [employer] threatened to shut off services in your [...] Description 10/31/2024 2:00 PM EDT Office Visit [facility] ADULT DENTAL [address] [place] [address] Olga, Katt [address] [place] [address] documented as of this encounter Visit Diagnoses Not on filedocumented in this encounter Additional Health Concerns Assessment Noted Time PHQ-9 Depression Total Score: 0 10/17/19 24 3:45 PM EDT documented as of this encounter Care Teams Toppiece Chopper Relationship Specialty Start Date End Date Clara Shearer MD [address] [place] [address] PCP - General Family Medicine 07/24/18 documented as of this encounter
--- OUTSIDE RECORDS SUMMARY | 2024-10-17 19:05 | XMS_ITS | Encounter Summary ---
Author Organization [employer] Address [address] [facility] 7t [place] [address] Care Team Providers Care Hand Filer Balance Wheel Name Role Phone Clara Shearer MD Primary Care Provider [phone] Encounter Details Date Type Department Care Team ([facility] st Contact Info) Description 01/22/2024 Orders Only [facility] MEDICINE [address] [place], [place] [phone] Clara Shearer MD 230 [place], [place] [phone] History of mechanical aortic valve replacement Social [...] Description 10/31/2024 2:00 PM EDT Office Visit [facility] ADULT DENTAL [address] [place] [address] Katt Espinoza 230 [place] [address] documented as of this encounter Visit Diagnoses Diagnosis History of mechanical aortic valve replacement documented in this encounter Additional Health Concerns Assessment Noted Time PHQ-9 Depression Total Score: 0 10/17/19 24 3:45 PM EDT documented as of this encounter Care Teams Hand Filer Balance Wheel Relationship Specialty Start Date End Date Clara Shearer MD 230 [place] [address] PCP - General Family Medicine 07/24/18 documented as of this encounter
--- OUTSIDE RECORDS SUMMARY | 2024-10-17 19:05 | XMS_ITS | Encounter Summary ---
Author Organization [employer] Address [address] [facility] 7 [place] [address] Care Team Providers Care Calciner Operator Name Role Phone Clara Shearer MD Primary Care Provider [phone] Reason for Referral * Consultation (Routine) - Closed Specialty Diagnoses / Procedures Referred By Ron brewer Referred To Contact Physical Therapy Diagnoses Right hip pain Chronic right-sided low back pain, unspecified whether sciatica present Clara Shearer MD [address] [place] [address] Phone: tel: fax: AT Physical Therapy - [address] [address] Phone: tel: fax: Referral ID Status Reason Start Date Expiration Date V isits Requested Visits Authorized [id number] Closed Specialty Services Required 11/14/2023 11/13/2024 1 1 Encounter Details Date Type Department Care Team (Late st Contact Info) Description 11/14/2023 Orders Only [facility] MEDICINE [address] [place], [place] [phone] Clara Shearer MD [address] [place], [place] [phone] Right hip pain (Primary Dx); Chronic right-sided [...] Description 10/31/2024 2:00 PM EDT Office Visit [facility] ADULT DENTAL [address] [place] [address] Katt Espinoza [address] [place] [address] Scheduled Referrals Name Type Priority Associated Diagnoses [...] EDT Narrative 11/25/2023 8:18 AM EDT ? [facility] ?[address] ?[place] [address] ?XRay Report ? Signed ? Patient: Caizan,Gerardina ?MR#: [id number] ?? [id number] ? : 1975 ?Acct:[id number] ? Age/Sex: 48 / F ?ADM Date: 11/16/23 ? Loc: HO.XRAY ? Attending Dr: Clara Shearer MD ? Ordering Physician: Clara Shearer MD ?? Date of Service: 11/16/23 ?? Procedure(s): XR thoracic spine 2V ?? Accession Number(s): [id number] ? cc: Clara Shearer MD ? EXAMINATION: [...] signed by Easton Campos MD in OV> ?11/25/23 0815 ? DD/ 1549 ? TD/TT: ? Building Components Designer: WG ? Procedure Note Donotuseinterpreter, Image - 11/25/[address] [address] XRay Report Signed Patient: Yoel Martell#: [id number] : 1975Acct:[id number] Age/Sex: 48 / FADM Date: 11/16/23 Loc: HO.XRAY Attending Dr: Clara Shearer MD Ordering Physician: Clara Shearer MD Date of Service: 11/16/23 Procedure(s): XR thoracic spine 2V Accession Number(s): [id number] cc: Clara Shearer MD EXAMINATION: XR THORACOLUMBAR [...] 2V IMPRESSION: Dorsal spine normal. Dictated By: Eastno Campos MD Signed By: <Electronically signed by Easton Campos MD inOV> 11/25/23 0815 DD/ 1549 TD/TT: Building Components Designer: WG Clara Shearer MD IMG XR PROCEDURES Edited [...] documented as of this encounter Care Teams Calciner Operator Relationship Specialty Start Date End Date Clara Shearer MD [address] [place] [address] PCP - General Family Medicine 07/24/18 documented as of this encounter
--- OUTSIDE RECORDS SUMMARY | 2024-10-17 19:06 | XMS_ITS | Encounter Summary ---
Author Organization [employer] Address [address] [facility] 7t [place] [address] Care Team Providers Care Capacity Planning Analyst Name Role Phone Clara Shearer MD Primary Care Provider [phone] Reason for Visit * Reason Onset Date Comments rs otf 05/22/2023 Encounter Details Date Type Department Care Team (Late st Contact Info) Description 05/22/2023 Telephone [facility] ADULT DENTAL [address] [place], [place] [phone] Olga, Katt [address] [place] [address] rs prophy Social History Tobacco Use Types [...] Description 10/31/2024 2:00 PM EDT Office Visit [facility] ADULT DENTAL [address] [place] [address] Katt Espinoza [address] [place] [address] documented as of this encounter Visit Diagnoses Not on filedocumented in this encounter Additional Health Concerns Assessment Noted Time PHQ-9 Depression Total Score: 5 03/07/20 23 3:27 PM EDT documented as of this encounter Care Teams Capacity Planning Analyst Relationship Specialty Start Date End Date Clara Shearer MD [address] [place] [address] PCP - General Family Medicine 07/24/18 documented as of this encounter
--- OUTSIDE RECORDS SUMMARY | 2024-10-17 19:06 | XMS_ITS | Encounter Summary ---
Author Organization [employer] Address [address] [facility] 7t [place] [address] Care Team Providers Care Industrial Refrigeration Mechanic Name Role Phone Clara Shearer MD Primary Care Provider Reason for Visit * Reason Onset Date Comments Nurse Triage 06/05/2023 Encounter Details Date Type Department Care Team ([facility] st Contact Info) Description 06/05/2023 Telephone [facility] MEDICINE [address] [place], [place] [phone] Clara Shearer MD [address] [place], [place] [phone] Nurse Triage Social History Tobacco Use Types [...] 06/05/2023 4:47 PM EST Triage call with [employer] Reel System Operator ID [id number] Pt reports headaches which have started 2 [...] to try this. Pt will come to [facility] tomorrow 06/06/23 to be seen by provider. [...] Nausea as well Please contact pt at [phone] Polish Speaker. documented in this encounter Plan of Treatment Upcoming Encounters Date Type Department Care Team (Late st Contact Info) Description 10/31/2024 2:00 PM EDT Office Visit [facility] ADULT DENTAL [address] [place] [address] OlgaKtat [address] [place] [address] documented as of this encounter Visit Diagnoses Not on filedocumented in this encounter Additional Health Concerns Assessment Noted Time PHQ-9 Depression Total Score: 5 03/07/20 23 3:27 PM EDT documented as of this encounter Care Teams Industrial Refrigeration Mechanic Relationship Specialty Start Date End Date Clara Shearer MD [address] [place] [address] PCP - General Family Medicine 07/24/18 documented as of this encounter
== END 2024-10-17 15:53 | disposition home or self-care (01) ==
LOC: HO.ACS 15:35
PROVIDERS: PCP Family Medicine; Visit Provider Internal Medicine Medical Oncology
DX: Z79.01 Long term (current) use of anticoagulants (principal)

== ENCOUNTER → 2024-10-17 15:35 | Outpatient (BNVA) | payer OTHER, SELFPAY | PROVIDERS: PCP Family Medicine; Visit Provider Internal Medicine Medical Oncology | DX: Z95.2 Presence of prosthetic heart valve (principal); Z51.81 Encounter for therapeutic drug level monitoring; Z79.01 Long term (current) use of anticoagulants | CPT/HCPCS: 85610; 99211 ==

== ENCOUNTER 2024-11-05 17:00 | Outpatient (RCR) | payer OTHER, SELFPAY ==
--- NOTE | 2024-09-04 08:34 | MHC.PT.EP ---
[facility] [place] Office [place] Office [place] Office [address] [phone] F: [phone] F: [phone] F: [phone] F: [phone] Physical Therapy Plan of Care Date of Evaluation: 09/03/24 Date of Surgery: n/a Diagnosis: right hip tendonitis other specified enthesopathies of right lower limb, excluding foot Assessment: Pt is a 49 yo F who is referred to physical therapy due to low back pain and hip tendonitis. 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 Patient has difficulty performing tasks that include bending, lifting, and prolonged sitting or standing. Patient has decreased hamstring length, decreased lumbar ROM, and increased pain that is limiting functional mobility. Patient would be a good candidate for skilled physical therapy to include LE strengthening, core stabilization, posture and body mechanics education. Patient would benefit from PT 2x a week for 4 weeks to include; modalities as needed, functional training, stretching, and stability. 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 Manual therapy to restore motion and function. Therapeutic exercise to improve strength and flexibility. Neuromuscular re-education for posture and balance. Therapeutic activities to return to functional activities of daily living. Electronically signed by: Carly Avila, PT, DPT Please sign and return to therapist. Thank you for your referral.
--- NOTE | 2025-05-26 09:20 | MHC.PT.DC ---
[facility] [place] Office [place] Office [place] Office [address] Marcial Good [address] [phone] F: [phone] F: [phone] F: [phone] F: [phone] Physical Therapy Discharge Report Diagnosis: right hip tendonitis other specified enthesopathies of right lower limb, excluding foot Date of Surgery: n/a Date of Evaluation: 09/03/24 Date of Discharge: 05/26/25 Treatments to Date: 13 Cancellations to Date: No Shows to Date: Discharge Status: Achieved Goals Improved Function Independent with [facility]P Discharge Summary: Pt was seen for skilled PT from 09/03/24-11/05/24. Her last attended and scheduled appointment was 11/05/24. Per last treatment note, she was independent with HEP and met her goals. She has been D/C to [facility] Electronically signed by: Carly Stevens, PT, DPT Please sign and return to therapist. Thank you for your referral.
== END 2025-05-26 09:20 | disposition home or self-care (01) ==
LOC: HO.PT 17:00
PROVIDERS: PCP Family Medicine; Visit Provider Physician Assistant
DX: M76.891 Other specified enthesopathies of right lower limb, excluding foot (principal)
CPT/HCPCS: 97012; 97110; 97140; 97162; 97530

== ENCOUNTER 2024-11-14 16:04 | Outpatient (AMB) | payer OTHER, SELFPAY ==
--- NOTE | 2024-11-14 16:23 | MHC.OFFVISCO ---
Intake Intake Visit Reasons: Anticoagulation Allergies peach Allergy (Severe, Verified 11/14/24 16:06) Angioedema Medication List - Last Reconciled 11/14/24 by Ruthy Newby RN ascorbic acid (vitamin C) 500 mg PO BID aspirin (Adult Aspirin Regimen) 81 mg PO DAILY 90 days cetirizine 10 mg PO DAILY cholecalciferol (vitamin D3) 50 mcg PO DAILY hydrocortisone 2.5% (Proctosol HC) 1 appl [place] BID-QID PRN multivitamin (One Daily Multivitamin tablet) 1 tab PO DAILY omeprazole 20 mg PO DAILY PRN sumatriptan succinate 100 mg PO .prn MDD 200mg tolterodine ER 4 mg PO DAILY PRN topiramate 25 mg PO DAILY PRN warfarin See Protocol orally 6mg daily; Nursing Note INR: 2.3 in therapeutic range Medications and supplements reviewed No changes in health, diet, medications, or supplements, has small subconjunctival hemorrhage lower area of sclera of right eye from a few days ago- she was enc to apply cold compress off and on next 2 days- enc to discuss with eye dr. - she has seasonal allergies,plus she has been working on her new home and gardening-which may have contributed to it - enc to avoid bending over if worsens in any way and call MD not change in vision or pain Denies any signs and symptoms of bruising or clotting. Bleeding, bruising, clotting discussed Nutritional guidance given - Eat a mix of fruits and vegetables Dose: 6mg daily F/U INR: 1 month Patient verbalizes understanding of instructions given with read back Anti-Coag Initial Assessment Social Hx Patient Tobacco Use Status: Never used Tobacco alcohol intake: never Alcohol intake frequency: does not drink Coding Level of Care Code Est Patient Level 1 Diagnoses Current use of anticoagulant therapy Z79.01 Results AMB INR Fingerstick AMB INR Fingerstick 2.3 Last Edit by Ruthy Newby RN on 11/14/24 16:17 manual entry Assessment & Plan Assessment & Plan (1) Current use of anticoagulant therapy: Comment: Continue Coumadin. Code(s): Z79.01 - long term care social worker (current) use of anticoagulants Category: Medical Medications: Changed From topiramate Take one 25mg tablet daily at bedtime for chronic migraines. 25 mg PO DAILY 30 tabs 1RF migraines with aura MDD 25mg PO daily G43.109 - Migraine with aura, not intractable, without status migrainosus, M51.26 - Other intervertebral disc displacement, lumbar region To topiramate Take one 25mg tablet daily at bedtime for chronic migraines. 25 mg PO DAILY PRN migraines with aura G43.109 - Migraine with aura, not intractable, without status migrainosus, M51.26 - Other intervertebral disc displacement, lumbar region
[2024-11-14 16:58] LABS: Prothrombin Time Whole Bld POC 27.9 sec (11.1-13.5); ~PT, ~INR - Anti Coag Clinic 2.3 (0.9-1.1)
--- OUTSIDE RECORDS SUMMARY | 2024-11-14 18:29 | XMS_ITS | Encounter Summary ---
Author Organization [employer] Address 75 [facility] 7t [place] [address] Care Team Providers Care Networking Engineer Name Role Phone Clara Shearer MD Primary Care Provider [phone] Encounter Details Date Type Department Care Team (Late st Contact Info) Description 11/14/2024 Orders Only [facility] EXTERNAL DATA DEPARTMENT Provider, [...] t he electric, gas, oil or water [employer] threatened to shut off services in your [...] Care Team (Late st Contact Info) Description 02/13/2025 3:00 PM EDT Office Visit [facility] OPTOMETRY [address] [place] [address] Kenroy, Meliza, OD [address] [place] [address] 05/08/2025 8:00 AM EDT Office Visit [facility] ADULT DENTAL [address] [place] [address] Olga, Katt [address] [place] [address] documented as of this encounter Procedures Procedure Name Priority Date/Time Associated Diagnosis Comments PROTHROMBIN TIME WHOLE BLD POC Routine 11/14/2024 4:12 PM EDT ~PT, ~INR - ANTI COAG CLINIC Routine 11/14/2024 4:12 PM EDT documented in this encounter Results * (ABNORMAL) PROTHROMBIN TIME WHOLE BLD POC (11/14/2024 4:12 PM EDT) Protime 27.9(H) 11.1 - 13.5 sec [facility] 11/14/2024 4:12 PM EDT 11/14/2024 4:58 PM EDT us Generic External Data Provider LAB BLOOD ORDERAB LES Final Result [facility] [address] [place] [address] [phone] * (ABNORMAL) ~PT, ~INR - ANTI COAG CLINIC (11/14/2024 4:12 PM EDT) Prothrombin Time INR 2.3(H) 0.9 - 1.1 [facility] Comment:METER #: [id number] TERNATIONAL NORMALIZED RATIO (INR) REFERENCE RANGES Reference RangeFor patients not on anticoagulant therapy: 0.9 - 1.1INR ranges for oral anticoagulanttherapy:For prevention and treatment of venous thrombosis and pulmonary embolism: 2.0 - 3.0For acute myocardial infarction with aspirin therapy: 2.0 - 3.0For acute myocardial infarction without aspirin therapy: 3.0 - 4.0For patients with mechanical prosthetic heart valves: 2.5 - 3.5 11/14/2024 4:12 PM EDT 11/14/2024 4:58 PM EDT Generic External Data Provider LAB BLOOD ORDERAB LES Final Result [facility] [address] [place] [address] [phone] documented in this encounter Visit Diagnoses Not on filedocumented in this encounter Additional Health Concerns Assessment Noted Time PHQ-9 Depression Total Score: 0 10/17/19 24 3:45 PM EDT documented as of this encounter Care Teams Networking Engineer Relationship Specialty Start Date End Date Clara Shearer MD [address] [place] [address] PCP - General Family Medicine 07/24/18 documented as of this encounter
--- OUTSIDE RECORDS SUMMARY | 2024-11-14 18:29 | XMS_ITS | Encounter Summary ---
Author Organization [employer] Address [address] [facility] 7 [place] [address] Care Team Providers Care Pediatric Np Name Role Phone Clara Shearer MD Primary Care Provider [phone] Reason for Visit * Reason Onset Date Comments Letter for School/Work 08/02/2022 Encounter Details Date Type Department Care Team ([facility] st Contact Info) Description 08/02/2022 Telephone [facility] MEDICINE [address] [place] [address] Claar Shearer MD [address] [place] [address] Letter for School/Work Social History Tobacco Use [...] a upcoming procedure on 08-19-22. Fax number [phone] Any question please contact Ambreen at [phone] ext [phone] * Telephone Encounter - Khang Garcia - 08/04/2022 2:41 PM EST Tc from pankaj with [facility] requesting a call regarding message below Please contact pankaj at [phone] * Telephone Encounter - Ronda Mahan LPN - 08/04/2022 2:41 PM EST Kelly, this should be done upstairs we do not do letters regarding medication stop or start. Please discuss with Dr. Shearer on what she wants and you can call [facility] to fax that order/letteror if they will take verbal orders from you that is even easier. * Telephone Encounter - Kelly Campuzano RN - 08/02/2022 3:33 PM EST Pt having procedure (dilation and curettage with hysteroscopy to place mirena) at [facility] 08/19/22. They are requesting a letter stating when pt should stop and restart coumadin (how many days before and after). * Telephone Encounter - Khang Garcia - 08/02/2022 2:48 PM EST Tc from claudia with [facility] requesting a letter stating when pt will be stopping medication ( warfarin 2 mg ) prior to OP Please contact claudia at [phone] ext [phone] documented in this encounter Plan of Treatment Upcoming Encounters Date Type Department Care Team (Late st Contact Info) Description 02/13/2025 3:00 PM EDT Office Visit [facility] OPTOMETRY [address] [place], [place] [phone] Kenroy, Meliza, OD [address] [place] [address] 05/08/2025 8:00 AM EDT Office Visit [facility] ADULT DENTAL [address] [place], [place] [phone] Jignesh Espinozaaris [address] [place] [address] documented as of this encounter Visit Diagnoses Not on filedocumented in this encounter Care Teams Pediatric Np Relationship Specialty Start Date End Date Clara Shearer MD [address] [place] [address] PCP - General Family Medicine 07/24/18 documented as of this encounter
--- OUTSIDE RECORDS SUMMARY | 2024-11-14 18:29 | XMS_ITS | Encounter Summary ---
Author Organization [employer] Address [address] [facility] 7t [place] [address] Care Team Providers Care Impregnator Name Role Phone Clara Shearer MD Primary Care Provider [phone] Encounter Details Date Type Department Care Team ([facility] st Contact Info) Description 01/22/2024 Orders Only [facility] MEDICINE [address] [place], [place] [phone] Clara Shearer MD [address] [place], [place] [phone] History of mechanical aortic valve replacement Social [...] 3:00 PM EDT Office Visit [facility] OPTOMETRY [address] [place] [address] Kenroy, Meliza, OD [address] [place] [address] 05/08/2025 8:00 AM EDT Office Visit [facility] ADULT DENTAL [address] [place] [address] Olga, Katt [address] [place] [address] documented as of this encounter Visit Diagnoses Diagnosis History of mechanical aortic valve replacement documented in this encounter Additional Health Concerns Assessment Noted Time PHQ-9 Depression Total Score: 0 10/17/19 24 3:45 PM EDT documented as of this encounter Care Teams Impregnator Relationship Specialty Start Date End Date Clara Shearer MD [address] [place] [address] PCP - General Family Medicine 07/24/18 documented as of this encounter
--- OUTSIDE RECORDS SUMMARY | 2024-11-14 18:30 | XMS_ITS | Referral Summary ---
Author Organization [facility] Address [address] [place] [address] Care Team Providers Care Mud Logger Name Role Phone Manfred Clara Primary Care Provider [phone] Allergies No known active allergies Medications aspirin [...] Not on file Procedures * Due to [place] state law, this organization might not be sharing negative HIV tests. Procedure Name Priority Date/Time Associated Diagnosis Comments PAP Routine 12/17/2020 2:37 PM EDT Hematometra from Last 3 Months or Most Recently Relevant to Health Maintenance Insurance [facility] HS/FREE [place] [address] [place] [address] Care Teams Mud Logger Relationship Specialty Start Date End Date Clara Shearer [address] [place] [address] PCP - General Family Medicine 05/26/20
--- OUTSIDE RECORDS SUMMARY | 2024-11-14 18:30 | XMS_ITS | Encounter Summary ---
Author Organization [employer] Address 75 [facility] 7t [place] [address] Care Team Providers Care Special Ed Assistant Name Role Phone Clara Shearer MD Primary Care Provider [phone] Reason for Visit * Reason Onset Date Comments rs otf 05/22/2023 Encounter Details Date Type Department Care Team ([facility] st Contact Info) Description 05/22/2023 Telephone [facility] ADULT DENTAL [address] [place], [place] [phone] Olga, Katt [address] [place] [address] rs prophy Social History Tobacco Use Types [...] Description 02/13/2025 3:00 PM EDT Office Visit [facility] OPTOMETRY [address] [place] [address] Kenroy, Meliza, OD [address] [place] [address] 05/08/2025 8:00 AM EDT Office Visit [facility] ADULT DENTAL [address] [place] [address] Katt Espinoza [address] [place] [address] documented as of this encounter Visit Diagnoses Not on filedocumented in this encounter Additional Health Concerns Assessment Noted Time PHQ-9 Depression Total Score: 5 03/07/20 23 3:27 PM EDT documented as of this encounter Care Teams Special Ed Assistant Relationship Specialty Start Date End Date Clara Shearer MD [address] [place] [address] PCP - General Family Medicine 07/24/18 documented as of this encounter
--- OUTSIDE RECORDS SUMMARY | 2024-11-14 18:30 | XMS_ITS | Encounter Summary ---
Author Organization [employer] Address [address] [place] [address] 7 [place] [address] Care Team Providers Care Tetryl Blender Operator Name Role Phone Clara Shearer MD Primary Care Provider [phone] Reason for Referral * Imaging (Routine) - Closed Specialty Diagnoses / Procedures Referred By Contac t Referred To Contact Radiology Diagnoses Metabolic dysfunction-associated steatotic liver disease (MASLD) Procedures US Abdomen Comp w elastography Clara Shearer MD [address] [place] [address] Phone: tel: fax: [address] Phone: tel: fax: Referral ID Status Reason Start Date Expiration Date Visits Re quested Visits Authorized [id number] Closed 11/17/2023 11/16/2024 1 1 Encounter Details Date Type Department Care Team (Late st Contact Info) Description 11/17/2023 Orders Only [facility] MEDICINE [address] [place], [place] [phone] Clara Shearer MD [address] [place], [place] [phone] Metabolic dysfunction-associated steatotic liver disease (MASLD) (Primary [...] Description 02/13/2025 3:00 PM EDT Office Visit [facility] OPTOMETRY [address] [place] [address] Meliza Jasmine, OD [address] [place] [address] 05/08/2025 8:00 AM EDT Office Visit [facility] ADULT DENTAL [address] [place] [address] Katt Espinoza [address] [place] [address] documented as of this encounter Procedures Procedure Name Priority Date/Time Associated Diagnosis Comments US ABDOMEN COMPLETE WITH ELASTOGRAPHY Routine 12/05/2023 9:26 AM EDT Metabolic dysfunction-associa ebony steatotic liver disease (MASLD) documented in this encounter Results * US Abdomen Comp w elastography (12/05/2023 9:26 AM EDT) Anatomical Region Laterality Modality Abdomen Ultrasound 12/05/2023 9:26 AM EDT Narrative 12/12/2023 9:41 AM EDT ? [facility] ?[address] ?[place] [address] ? Ultrasound Report ? Signed ? Patient: Jasbir,Marktwin ?MR#: [id number] ?? [id number] ? : 1975 ?Acct:[id number] ? Age/Sex: 48 / F ?ADM Date: 12/05/23 ? Loc: HO.US ? Attending Dr: Clara Shearer MD ? Ordering Physician: Clara Shearer MD ?? Date of Service: 12/05/23 ?? Procedure(s): US abdomen comp w elastography ?? Accession Number(s): [id number] ? cc: Clara Shearer MD ? EXAMINATION: [...] 0937 ? DD/ 0926 ? TD/TT: ? Drill Operator: SS ? Procedure Note Ailin, Image - 12/12/2023 [place] [address] Ultrasound Report Signed Patient: Yoel Martell#: [id number] 2088 : 1975Acct:[id number] Age/Sex: 48 / FADM Date: 12/05/23 Loc: HO.US Attending Dr: Clara Shearer MD Ordering Physician: Clara Shearer MD Date of Service: 12/05/23 Procedure(s): US abdomen comp w elastography Accession Number(s): [id number] cc: Clara Shearer MD EXAMINATION: US COMPLETE [...] MD in OV> 12/12/23936 DD/ 5 TD/TT: Drill Operator: SS us Clara Shearer MD IMG US PROCEDURES Final Result documented in this encounter Visit Diagnoses Diagnosis Metabolic dysfunction-associated steatotic liver disease (MASLD)- Primary documented in this encounter Additional Health Concerns Assessment Noted Time PHQ-9 Depression Total Score: 0 10/17/19 24 3:45 PM EDT documented as of this encounter Care Teams Tetryl Blender Operator Relationship Specialty Start Date End Date Clara Shearer MD [address] [place] [address] PCP - General Family Medicine 07/24/18 documented as of this encounter
--- OUTSIDE RECORDS SUMMARY | 2024-11-14 18:30 | XMS_ITS | Clinical Summary ---
Author Organization [facility] Address [address] [place] [address] Care Team Providers Care Environmental Economist Name Role Phone Manfred Clara Primary Care Provider [phone] Allergies No known active allergies Medications aspirin [...] - 2023-2 5 season) 2024 11/06/2020, 10/09/2020 Alcohol/Substance Use Screening 07/24/2024 Influenza Vaccine (Season Ended) 2025 RSV Vaccine (60+ years old a nd patients) (1 - 1-dose 75+ series) 02/19/2052 Pneumococcal Vaccine: Pediatric (0-5 Years) and At-Risk Patients (6-50 Years) Aged Out No longer eligible based on patient's age to complete this topic Procedures * Due to [place] state law, this organization might not be sharing negative HIV tests. Procedure Name Priority Date/Time Associated Diagnosis Comments PAP Routine 12/17/2020 2:37 PM EDT Hematometra from Last 3 Months or Most Recently Relevant to Health Maintenance Insurance [facility] HSNO/[place] [address] [place] [address] Care Teams Environmental Economist Relationship Specialty Start Date End Date Clara Shearer [address] [place] [address] PCP - General Family Medicine 05/26/20
--- OUTSIDE RECORDS SUMMARY | 2024-11-14 18:30 | XMS_ITS | Encounter Summary ---
Author Organization [employer] Address [address] [facility] 7 [place] [address] Care Team Providers Care Electric Hoist Operator Name Role Phone Clara Shearer MD Primary Care Provider [phone] Reason for Referral * Consultation (Routine) - Closed Specialty Diagnoses / Procedures Referred By Contac t Referred To Contact Physical Therapy Diagnoses Right hip pain Chronic right-sided low back pain, unspecified whether sciatica present Clara Shearer MD [address] [place] [address] Phone: tel: fax: AT Physical Therapy - [address] [address] Phone: tel: fax: Referral ID Status Reason Start Date Expiration Date V isits Requested Visits Authorized [id number] Closed Specialty Services Required 11/14/2023 11/13/2024 1 1 Encounter Details Date Type Department Care Team (Late st Contact Info) Description 11/14/2023 Orders Only [facility] MEDICINE [address] [place], [place] [phone] Clara Shearer MD [address] [place], [place] [phone] Right hip pain (Primary Dx); Chronic right-sided [...] is your housing situation today? I have anye martinez 05/09/[address] you [...] Description 02/13/2025 3:00 PM EDT Office Visit [facility] OPTOMETRY [address] [place] [address] Kenroy, Meliza, OD [address] [place] [address] 05/08/2025 8:00 AM EDT Office Visit [facility] [address] [place] [address] Katt Espinoza [address] [place] [address] Scheduled Referrals Name Type Priority Associated Diagnoses [...] EDT Narrative 11/25/2023 8:18 AM EDT ? [facility] ?[address] ?[place] [address] ?XRay Report ? Signed ? Patient: Thalia Martell ?MR#: [id number] ?? 2088 ? : 1975 ?Acct:[id number] ? Age/Sex: 48 / F ?ADM Date: 11/16/23 ? Loc: HO.XRAY ? Attending Dr: Clara Shearer MD ? Ordering Physician: Clara Shearer MD ?? Date of Service: 11/16/23 ?? Procedure(s): XR thoracic spine 2V ?? Accession Number(s): [id number] ? cc: Clara Shearer MD ? EXAMINATION: [...] ?11/25/2315 ? DD/ 1549 ? TD/TT: ? Emotional Disabilities Teacher: QUINN ? Procedure Note Donlakeisha, Image - 11/25/[address] [address] XRay Report Signed Patient: Yoel Martell#: [id number] 2088 : 1975Acct:[id number] Age/Sex: 48 / FADM Date: 11/16/23 Loc: VICKIE Attending Dr: Clara Shearer MD Ordering Physician: Clara Shearer MD Date of Service: 11/16/23 Procedure(s): XR thoracic spine 2V Accession Number(s): [id number] cc: Clara Shearer MD EXAMINATION: XR THORACOLUMBAR [...] MD inOV> 11/25/23 0815 DD/ 1549 TD/TT: Emotional Disabilities Teacher: QUINN Clara Shearer MD IMG XR [...] documented as of this encounter Care Teams Electric Hoist Operator Relationship Specialty Start Date End Date Clara Shearer MD [address] [place] [address] PCP - General Family Medicine 07/24/18 documented as of this encounter
--- OUTSIDE RECORDS SUMMARY | 2024-11-14 18:30 | XMS_ITS | Encounter Summary ---
Author Organization [employer] [facility] Address [address] [facility] [address]t [place] [address] Care Team Providers Care Wire Winder Name Role Phone Clara Shearer MD Primary Care Provider [phone] Encounter Details Date Type Department Care Team (Late st Contact Info) Description 07/20/2022 [facility] [address] [place] [address] Clara Shearer MD [address] [place] [address] Social History Tobacco Use Types Packs/Day Years [...] Encounters Date Type Department Care Team (Late Contact Info) Description 02/13/2025 3:00 PM EDT Office Visit [facility] [address] [place] [address] Meliza Jasmine, OD [address] [place] [address] 05/08/2025 8:00 AM EDT Office Visit [facility] ADULT [facility] [address] [place] [address] Jignesh Espinozaaris [address] [place] [address] documented as of this encounter Visit Diagnoses Not on filedocumented in this encounter Care Teams Wire Winder Relationship Specialty Start Date End Date Clara Shearer MD [address] [place] [address] PCP - General Family Medicine 07/24/18 documented as of this encounter
--- OUTSIDE RECORDS SUMMARY | 2024-11-14 18:30 | XMS_ITS | Encounter Summary ---
Author Organization [facility] Address [address] [facility] [address]t [place] [address] Care Team Providers Care Metal Room Dental Technician Name Role Phone Clara Shearer MD Primary Care Provider [phone] Encounter Details Date Type Department Care Team (Latest Contact Info) Description 09/26/2019 Abstract [facility] CONVERSION[facility] Dental, Provider, DDS Social History [...] Description 02/13/2025 3:00 PM EDT Office Visit [facility] OPTOMETRY [address] [place] [address] Meliza Jasmine, OD [address] [place] [address] 05/08/2025 8:00 AM EDT Office Visit [facility] ADULT DENTAL [address] [place] [address] Olga, Katt [address] [place] [address] documented as of this encounter Visit Diagnoses Not on filedocumented in this encounter Care Teams Metal Room Dental Technician Relationship Specialty Start Date End Date Clara Shearer MD [address] [place] [address] PCP - General Family Medicine 07/24/18 documented as of this encounter
--- OUTSIDE RECORDS SUMMARY | 2024-11-14 18:30 | XMS_ITS | Encounter Summary ---
Author Organization [email or web address] Address [address] [facility] 7t [place] [address] Care Team Providers Care Sql Ssrs Developer Name Role Phone Clara Shearer MD Primary Care Provider [phone] Reason for Visit * Reason Onset Date Comments Nurse Triage 06/05/2023 Encounter Details Date Type Department Care Team ([facility] st Contact Info) Description 06/05/2023 Telephone [facility] MEDICINE [address] [place], [place] [phone] Clara Shearer MD [address] [place], [place] [phone] Nurse Triage Social History Tobacco Use Types [...] 06/05/2023 4:47 PM EST 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 Pt will come to [facility] tomorrow 06/06/23 to be seen [...] Nausea as well Please contact pt at [phone] Croatian Speaker. documented in this encounter Plan of Treatment Upcoming Encounters Date Type Department Care Team (Late st Contact Info) Description 02/13/2025 3:00 PM EDT Office Visit [facility] OPTOMETRY [address] [place] [address] Kenroy, Meliza, OD [address] [place] [address] 05/08/2025 8:00 AM EDT Office Visit [facility] ADULT DENTAL [address] [place] [address] Olga, Katt [address] [place] [address] documented as of this encounter Visit Diagnoses Not on filedocumented in this encounter Additional Health Concerns Assessment Noted Time PHQ-9 Depression Total Score: 5 03/07/20 23 3:27 PM EDT documented as of this encounter Care Teams Sql Ssrs Developer Relationship Specialty Start Date End Date Clara Shearer MD [address] [place] [address] PCP - General Family Medicine 07/24/18 documented as of this encounter
--- OUTSIDE RECORDS SUMMARY | 2024-11-14 18:30 | XMS_ITS | Clinical Summary ---
Author Organization [employer] Address [address] [facility] [address] [place] [address] Care Team Providers Care Business Intelligence Developer Name Role Phone Clara Shearer MD Primary Care Provider [phone] Allergies No known active allergies Medications docusate [...] by mouth in the morning. 3 Active Ascorbic Acid (vitamin C) 500 [...] prior dental procedure 12 capsule 5 Active cetirizine (ZyrTEC) 10 MG tablet TAKE 1 TABLET BY MOUTH EVERY DAY 30 tablet 11 5 Active Active Problems Problem Noted Date Diagnosed Date Localized gingival recession 10/31/2024 Chronic headache 05/30/2024 Assessment & Plan (05/30/2024 12:20 PM EST): - patient was diagnosed with AYESHA - will try prescribing CPAP - patient reports improvement of symptoms since she tried imitrex AYESHA (obstructive sleep apnea) 05/30/2024 Assessment & Plan (05/30/2024 12:21 PM EST): - patient has sleep study which was ordered by steam pressure chamber operator. Patient was referred to sleep medicine specialist [...] PT with minimal improvement - evaluated by [facility] orthopedist in March 2024. MRI was ordered and patient was referred to [facility] for injection treatment. - patient has received 3 injection treatments with no improvement - patient was advised to contact [facility] orthopedist to inquire MRI Assessment & Plan [...] pancreatitis in November 2022 - following with [facility] GI, last seen in Feb 2023 - [...] on warfarin - previously prescribed metoprolol by steam pressure chamber operator; no longer on the medication due to hypotension / dizziness - continue following with steam pressure chamber operator, [facility] Dr Haynes - last TTE in January 2022, mild mitral valve stenosis - continue current treatment plan per cardiology Assessment & Plan (03/19/2023 1:47 PM EDT): - s/p AVR in Feb 2010 - on warfarin - previously prescribed metoprolol by steam pressure chamber operator; no longer on the medication due to hypotension / dizziness - continue following with steam pressure chamber operator, [facility] Dr Haynes - last TTE in January 2022, mild mitral valve stenosis - continue current treatment plan per cardiology Assessment & Plan (11/22/2022 11:35 AM EDT): - s/p AVR in Feb 2010 - on warfarin - previously prescribed metoprolol by steam pressure chamber operator; no longer on the medication due to hypotension / dizziness - continue following with steam pressure chamber operator, [facility] Dr Haynes - last TTE in January 2022, mild mitral valve stenosis - continue current treatment plan per cardiology Chronic anticoagulation 11/22/2022 Assessment & Plan (05/30/2024 1:41 PM EST): - indication: Aortic valve replacement - medication warfarin - goal INR 2-3 - followed by [facility] anticoagulation clinic - last INR was 2.0 on 03/01/23 - continue current management plan Assessment & Plan (03/19/2023 1:49 PM EDT): - indication: Aortic valve replacement - medication warfarin - goal INR 2-3 - followed by [facility] anticoagulation clinic - last INR was 2.0 on 03/01/23 - continue current management plan Assessment & Plan (11/22/2022 11:40 AM EDT): - indication: Aortic valve replacement - medication warfarin - goal INR 2-3 - followed by [facility] anticoagulation clinic - last INR was 2.4 [...] polyp, benign -Pt has follow-up appointment with PHYSICIAN EXECUTIVE -Pt is on Coumadin -Pt requested Hysterectomy, pt will follow-up with PHYSICIAN EXECUTIVE with possible hysterectomy in future Assessment & Plan (11/08/2022 4:50 PM EDT): s/p Endometrial Curetting's, polyp, benign -Pt has follow-up appointment with PHYSICIAN EXECUTIVE -Pt is on Coumadin -Pt requested Hysterectomy, pt will follow-up with PHYSICIAN EXECUTIVE with possible hysterectomy in future Cyst of ovary 09/22/2022 Iron deficiency anemia due to chronic blood loss 09/22/2022 Assessment & Plan (05/30/2024 1:41 PM EST): - AUB in a setting of anticoagulation - s/p removal of endometrial polyp, benign - Pt has follow-up appointment with PHYSICIAN EXECUTIVE - Pt is taking Coumadin Assessment & Plan (11/03/2023 12:09 PM EDT): - AUB in a setting of anticoagulation - s/p removal of endometrial polyp, benign -Pt has follow-up appointment with PHYSICIAN EXECUTIVE -Pt is taking Coumadin Assessment & Plan (11/08/2022 4:45 PM EDT): Due to AUB: S/p Endometrial Curetting's, polyp, benign -Pt has follow-up appointment with PHYSICIAN EXECUTIVE -Pt is taking Coumadin Vitamin D deficiency 12/04/2018 Assessment & Plan (11/03/2023 12:08 PM EDT): -continue vitamin D supplement Presence of subdermal contraceptive implant 09/2014 History of mechanical aortic valve replacement 0 04/07/2015 Assessment & Plan (05/30/2024 12:22 PM EST): - 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 Haynes, last seen in December 2023 - s/p AVR for rheumatic disease and aortic regurgitation in Feb 2010 - EKG showed sinus rhythm and RBBB - echocardiogram 2/7/24 EF 57%. Mechanical aortic valve functioning normally. Moderate mitral valve stenosis. No regurgitation. - Continue warfarin - Continue SBE prophylaxis. Assessment & Plan (11/03/2023 12:18 PM EDT): - Salesforce 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 Mechanical aortic valve functioning normally. Moderate mitral valve stenosis. No regurgitation. - Continue warfarin - Continue SBE prophylaxis. 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 Dallas Duran, last seen in Jul 2022 - s/p AVR for rheumatic disease and aortic regurgitation in Feb 2010 - EKG showed sinus rhythm and RBBB - echocardiogram JANUARY 2022 nml LVEF 60-65%; mild mitral valve stenosis - Continue aspirin and warfarin, per cardiology. - Continue SBE prophylaxis. Assessment & Plan (11/22/2022 11:37 AM EDT): - Salesforce [facility] last seen in Jul 2022 - s/p AVR for rheumatic disease and aortic regurgitation in Feb 2010 - EKG showed sinus rhythm and RBBB - echocardiogram JANUARY 2022 nml LVEF 60-65%; mild mitral valve stenosis - Continue aspirin and warfarin, per cardiology. - Continue SBE prophylaxis. 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 Normally functioning AV. Moderate mitral valve stenosis. - Continue warfarin, per cardiology. - Continue SBE prophylaxis. 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 Normally functioning AV. Moderate mitral valve stenosis. - Continue warfarin, per cardiology. - Continue SBE prophylaxis. Assessment & Plan (11/22/2022 11:36 AM EDT): - 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 Haynes, last seen in Jul 2022 [...] EDT): - 12/03/22 Evaluated and treated at [facility] ED. WBC 13k, Lipase 247, CT showed pancreatitis. Given IVF and analgesics. - Seen by [facility] GI in December 2022 - MRI on 03/01/23 was normal. - HgbA1C 5.9% - Follow recommendations per GI. Menometrorrhagia 09/22/2022 03/07/2023 Pain in female pelvis 09/22/20222022 Encounters Date Type Department Care Team Description 11/14/2024 Orders Only GENERIC EXTERNAL DATA DEPARTMENT Provider, Generic External Data 10/31/2024 2:00 PM EDT Office Visit [facility] ADULT DENTAL [address] [place] [address] Katt Espinoza Dental plaque (Primary Dx); Teeth missing; Localized gingival recession 10/17/2024 Orders Only GENERIC EXTERNAL DATA DEPARTMENT Provider, Generic External Data 10/11/2024 Telephone [facility] MEDIC[facility] [address] [place], [place] [phone] Clara Shearer MD Referral 10/08/2024 Refill [facility] [address] [facility] [place] [address] Clara Shearer MD 10/07/2024 Telephone [facility] [address] [facility] [place] [address] Clara Shearer MD 10/01/2024 Telephone [facility] [address] [facility] [place] [address] Clara Shearer MD CHART PREP 09/26/2024 Orders Only GENERIC EXTERNAL DATA DEPARTMENT Provider, Generic External Data 09/02/2024 Orders Only [facility] [address] [facility] [place] [address] Lyn-Méndez, Daina, DDS 09/02/2024 Telephone [facility] [address] [facility] [place] [address] Lyn-Méndez, Daina, DDS pre medi antibiotic 08/28/2024 [...] Sign Reading Time Taken Comments Blood Pressure 110/72 10/31/2024 1:51 PM EDT Pulse 70 05/30/2024 8:50 AM EST Temperature [...] Description 02/13/2025 3:00 PM EDT Office Visit [facility] OPTOMETRY [address] [place] [address] Kenroy, Meliza, OD [address] [place] [address] 05/08/2025 8:00 AM EDT Office Visit [facility] [address] [place] [address] Olga, Katt [address] [place] [address] Health Maintenance Due Date Last Done Comments CT Colonography 1975 FIT DNA/Cologuard 1975 FIT 1975 FOBT 1975 Sigmoidoscopy 1975 Family Planning (PISQ) 02/19/1992 Hepatitis A Vaccines (1 of 2 - Risk 2-dose series) 02/19/1996 Pap Smear 11/14/2023 11/13/2020 COVID-19 Vaccine ( season) 2024 05/09/2023, 11/06/2020, 10/09/2020 Dental Oral Exam 07/21/2024 01/19/2024, , 02/03/2021, Additional history exists Depression Screening 10/16/2024 10/17/2023, 10/17/19 24 Diabetes: Hemoglobin A1C 12/10/20242 024, 11/16/2023, 10/17/2023, Additional history exists Dental X-Ray: Bitewings 12/28/2024 12/28/19 24, 02/03/2021, 09/26/2019 Dental Prophylaxis 05/03/2025 10/31/2024, 0 12/28/2023, 09/26/2019 SDOH Screening 05/22/2025 05/22/2024 Alcohol/Substance Use Screening 05/30/2025 05/30/2024 Tobacco Screening 10/31/2025 10/31/2024 Cervical Cancer Screening 11/13/2025 HPV/Cotest 11/13/2025 11/13/2020, 08/20/2019 Dental X-Ray: Full Mouth 04/20/2026 04/19/2023, 01/21 Mammogram 10/04/2026 10/04/2024, 06/0 08/2022, 12/23/2022, Additional history exists Zoster Vaccines (1 of 2) 2027 Lipid Panel 11/15/2028 11/16/2023, 05/2 11/2022, 05/12/2022, Additional history exists DTaP/Tdap/Td Vaccines [...] [facility] Routine 11/14/2024 4:12 PM EDT CASE PRESENTATION, DETAILED AND EXTENSIVE TREATMENT PLANNING Routine 10/31/2024 2:00 PM EDT Dental plaque Teeth missing Localized gingival recession ORAL HYGIENE INSTRUCTIONS Routine 10/31/2024 2:00 PM EDT Dental plaque Teeth missing Localized gingival recession PROPHYLAXIS - ADULT Routine 10/31/2024 2 :00 PM EDT Dental plaque PROTHROMBIN TIME WHOLE BLD POC Routine 10/17/2024 [...] [facility] Routine 08/28/2024 3:03 PM EST PERIODIC ORAL EVALUATION - ESTABLISHED PATIENT Routine 01/19/2024 1:30 PM EDT Teeth missing Encounter for dental examination BITEWINGS - 2 RADIOGRAPHIC IMAGES Routine 12/28/2023 [...] WHOLE BLD POC (11/14/2024 4:12 PM EDT) Only the most recent of4 resultswithin the time period is included. Protime 27.9(H) 11.1 - 13.5 sec [facility] 11/14/2024 4:12 PM EDT 11/14/2024 4:58 PM EDT us Generic External Data Provider LAB BLOOD ORDERAB LES Final Result [facility] [address] [place] [phone] * (ABNORMAL) ~PT, ~INR - [facility]TI [facility] (11/14/2024 4:12 PM EDT) Only the most recent of4 resultswithin the time period is included. Prothrombin Time INR 2.3(H) 0.9 - 1.1 [facility] Comment:METER #: [id number] TERNATIONAL NORMALIZED RATIO (INR) REFERENCE RANGES Reference [...] Provider LAB BLOOD ORDERAB LES Final Result [facility] [address] [place] [address] [phone] * BI Mammogram Screening Tomosynthesis Bilateral (10/04/2024 3:55 PM EDT) Anatomical Region Laterality Modality Breast Bilateral Mammography 10/04/2024 3:55 PM EDT Narrative 10/13/2024 6:12 PM EDT ? [facility] ? [address] ?[place] [address] ?[phone] ? Mammography Report ? Signed ? Patient: LindaphillipMarkdavidaamir ?MR#: [id number] ?? 2088 ? : 1975 ?Acct:[id number] ? Age/Sex: 49 / F ?ADM Date: 03/14/25 ? Loc: HO.MAMMO ? Attending Dr: Clara Shearer MD ? Ordering Physician: Clara Shearer MD ?Results: 1Negative ? Date of Service: 03/14/25 ?Follow Up: 1 Year From Orig ?? inal Mammogram ? Procedure(s): MM tomosynthesis screening BI ?? Accession Number(s): [id number] ? cc: Clara Shearer MD ? EXAMINATION: [...] ??June Schrader DO ??10/13/2024 06:09 PM EDT ?? RP ? Dictated By: ?June Schrader DO ? Signed By: ?<Electronically signed by June Schrader, DO in OV> ? 10/13/24 1809 ? DD/ 1555 ? TD/TT: 10/04/24 1608 ? Validation Manager: ? Procedure Note Jose Parisi - 10/13/2024 [facility] [address] [place] [address] Mammography Report Signed Patient: Yoel Martell#: [id number] : 1975Acct:[id number] Age/Sex: 49 / FADM Date: 10/04/24 Loc: MARIE Attending Dr: Clara Shearer MD Ordering Physician: Clara Shearer MDResults: 1Negative Date of Service: 10/04/24Follow Up: 1 Year From Orig ina Mammogram Procedure(s): MM tomosynthesis screening BI Accession Number(s): [id number] cc: Clara Shearer MD EXAMINATION: MM SCREENING [...] 10/13/24 1809 DD/ 1555 TD/TT: 10/04/24 1608 Validation Manager: Clara Shearer MD IM BI PROCEDURES Edited Result - Final * Hepatitis Panel, General (12/11/2023 4:30 PM EDT) Hepatitis A IgM Nonreactive Nonreactive [facility] Comment:IgM antibodies to HEMPHILL V not detected; does not exclude earlyacute or recovered HAV infection. ~Hepatitis B Surface Antibody REACTIVE Nonreactive [facility] Comment:REACTIVE: > 11.99 mI U/mL Hepatitis B Core Antibody Nonreactive Nonreactive [facility] Hepatitis C Antibody Nonreactive Nonreactive [facility] Comment:Antibodies to HCV no t detected; does not exclude early acuteHCV infection. Hepatitis B Surface Ag Negative Negative [facility] 12/11/2023 4:30 PM EDT 12/11/2023 4:33 PM EDT Generic External Data Provider LAB BLOOD ORDERAB LES Final Result Performing Organization Address [facility] Co de Phone Number [facility] [address] [place] [phone] * Hemoglobin A1c (12/11/2023 4:30 PM EDT) Hemoglobin A1c 5.7 <6.0 % [facility] Comment:Hemoglobin A1C Refer ence Range Adults: 4.8 - 6.0 % Non diabetic: < 6.0 % Goal: < 7.0 %Additional Action Suggested: > 8.0 %Note: Hemoglobin A1c results are invalid for patients with abnormal amounts of HbF. Blood transfusions may impact the HbA1c concentration in the patient sample. Estimated Average Glucose 117 mg/dL [facility] Comment:eAG = Estimated ave rage glucose which is %A1C expressed asaverage glucose, using the formula of the R0E-VgnovanAmrnagw Glucose study (ADAG), Diabetes Care, Vol.31,#8,Feb. 2007 12/11/2023 4:30 PM EDT 12/11/2023 4:33 PM EDT Generic External Data Provider LAB BLOOD ORDERAB LES Final Result Performing Organization Address [facility] Co de Phone Number [facility] [address] [place] [phone] * (ABNORMAL) Lipid Panel with Reflex to Direct LDL (11/16/2023 3:27 PM EDT) Triglycerides 305(H) <150 mg/dL [facility] Comment:Desirable Triglyceri de: less than 150 mg/dLBorderline High Triglyceride 150-199 mg/dLHigh Triglyceride: 200-499 mg/dLVery High Triglyceride: greater than or equal to 5OO mg/dL Cholesterol 220(H) <200 mg/dL [facility] Comment:Desirable Cholestero l: less than 200 mg/dLBorderline High Cholesterol: 200-239 mg/dLHigh Cholesterol: greater than 239 mg/dL LDL Cholesterol Calculated 111(H) <100 mg/dL [facility] Comment:Desirable LDL: less than 100 mg/dLNear Optimal/Above Optimal LDL: 110- 129 mg/dLBorderline High LDL: 130-159 mg/dLHigh LDL: 160-189 mg/dLVery High LDL: greater than or equal to 190 mg/dL HDL Cholesterol 48 >40 mg/dL [facility] Comment:Desirable HDL: great er than 40 mg/dL Note: This HDL assay may give artificially low results in patients with liver disease. Blood 11/16/2023 3:27 PM EDT 11/16/2023 3:27 PM EDT us Clara Shearer MD LAB BLOOD ORDERABLES Final Resul t [facility] [address] [place] [phone] * HIV-1 RNA, Quantitative, Real-Time PCR (12/15/2022 8:09 AM EDT) Pathologist [facility] HIV 1 RNA, QN PCR NOT DETECTED NOT DETECTED copies/mL [employer] [employer] [place] HIV 1 RNA, QN PCR NOT DETECTED NOT DETECTED Log copies/mL [facility] [place] [employer] Comment: This test was performed using Real-Time Polymerase Chain Reaction. Reportable Range: 20 copies/mL to 10,000,000 copies/mL (1.30 log copies/mL to 7.00 log copies/mL). Blood Venous blood specimen / Unknown 12/15/2022 8:09 AM EDT 12/15/2022 8:10 AM EDT Narrative [facility] - 12/23/2022 6:53 PM EDT FASTING:NO FASTING: NO us Yany Cosby STATION ENGINEER MAIN LINE LAB BLOOD ORDERABLES Final Res ult [facility] [address], [place] [address] [facility] [place] [facility] [address] [place] [address] * THINPREP PAP (11/13/2020 4:51 PM EDT) [...] historic and ?? current clinical information. ?? [facility] : SEE COMMENT [facility] Comment: RK, CT(ASCP) CT screening location: [address] ??[phone] Interpretation/R esult: Negative for intraepithelial lesion or malignancy. [facility] LMP: NONE GIVEN [facility] Prev. BX: NONE GIVEN [facility] Prev. PAP: NONE GIVEN [facility] Review [facility] : SEE COMMENT [facility] Comment: BLC,CT(ASCP) CT screening location: [address] ??[phone] SOURCE: None given [facility] Statement Of Adequacy: SEE COMMENT [facility] Comment: Satisfactory for evaluation. Endocervical/transformation zone component present. Age and/or menstrual status not provided 11/13/2020 4:51 PM EDT us Ginette Her CONSTRUCTION ENGINEERING MANAGER LAB PATHOLOGY ORDERABLES Final Result [facility] [address] * HPV GENOTYPES 16,18/45 (11/13/2020 4:51 PM EDT) HPV 16 RNA NOT DETECTED NOT DETECTED [facility] HPV 18/45 RNA NOT DETECTED NOT DETECTED [facility] Comment: Methodology: Building Services Coordinator Mediated Amplification The analytical performance characteristics of this assay have been determined by [employer] The modifications have not been cleared or approved by the FDA. This assay has been validated pursuant to the CLIA regulations and is used for clinical purposes. 11/13/2020 4:51 PM EDT us Ginette Her NP LAB CYTOLOGY ORDERABLES Final R esult [facility] [address] from Last 3 Months or Most Recently Relevant to Health Maintenance Insurance [facility] - HSN FULL (MEDICAID) [facility] AD[facility] Care Teams Business Intelligence Developer Relationship Specialty Start Date End Date Clara Shearer MD [address] [place] [phone] PCP - General Family Medicine 07/24/18
== END 2024-11-14 16:32 | disposition home or self-care (01) ==
LOC: HO.ACS 16:04
PROVIDERS: PCP Family Medicine; Visit Provider Internal Medicine Medical Oncology
DX: Z79.01 Long term (current) use of anticoagulants (principal)

== ENCOUNTER → 2024-11-14 16:04 | Outpatient (BNVA) | payer OTHER, SELFPAY | PROVIDERS: PCP Family Medicine; Visit Provider Internal Medicine Medical Oncology | DX: Z95.2 Presence of prosthetic heart valve (principal); Z79.01 Long term (current) use of anticoagulants; Z51.81 Encounter for therapeutic drug level monitoring | CPT/HCPCS: 85610; 99211 ==

== ENCOUNTER 2024-11-22 15:23 | Outpatient (AMB) | payer OTHER, SELFPAY ==
--- OUTSIDE RECORDS SUMMARY | 2024-11-22 15:26 | XMS_ITS | Clinical Summary ---
Author Organization [employer] Address [address] [facility] 7t [place] [address] Care Team Providers Care Automobile Inspector Name Role Phone Clara Shearer MD Primary Care Provider [phone] Allergies No known active allergies Medications docusate [...] has sleep study which was ordered by dielectric press operator. Patient was referred to sleep medicine [...] PT with minimal improvement - evaluated by [facility] [place] in March 2024. MRI was ordered and patient was referred to [facility] for injection treatment. - patient has received 3 injection treatments with no improvement - patient was advised to contact [facility] orth[place]ist to inquire MRI Assessment & Plan [...] pancreatitis in November 2022 - following with [facility], last seen in Feb 2023 - [...] on warfarin - previously prescribed metoprolol by dielectric press operator; no longer on the medication due to hypotension / dizziness - continue following with dielectric press operator, [facility] [place] Haynes - last TTE in January 2022, mild mitral valve stenosis - continue current treatment plan per cardiology Assessment & Plan (03/19/2023 1:47 PM EDT): - s/p AVR in Feb 2010 - on warfarin - previously prescribed metoprolol by dielectric press operator; no longer on the medication due to hypotension / dizziness - continue following with dielectric press operator, [facility] [place] Haynes - last TTE in January 2022, mild mitral valve stenosis - continue current treatment plan per cardiology Assessment & Plan (11/22/2022 11:35 AM EDT): - s/p AVR in Feb 2010 - on warfarin - previously prescribed metoprolol by dielectric press operator; no longer on the medication due to hypotension / dizziness - continue following with dielectric press operator, [facility] [place] Haynes - last TTE in January 2022, mild mitral valve stenosis - continue current treatment plan per cardiology Chronic anticoagulation 11/22/2022 Assessment & Plan (05/30/2024 1:41 PM EST): - indication: Aortic valve replacement - medication warfarin - goal INR 2-3 - followed by [facility] [place] - last INR was 2.0 on 03/01/23 - continue current management plan Assessment & Plan (03/19/2023 1:49 PM EDT): - indication: Aortic valve replacement - medication warfarin - goal INR 2-3 - followed by [facility] [place] - last INR was 2.0 on 03/01/23 - continue current management plan Assessment & Plan (11/22/2022 11:40 AM EDT): - indication: Aortic valve replacement - medication warfarin - goal INR 2-3 - followed by [facility] [place] - last INR was 2.4 [...] polyp, benign -Pt has follow-up appointment with DUB ROOM ENGINEER -Pt is on Coumadin -Pt requested Hysterectomy, pt will follow-up with DUB ROOM ENGINEER with possible hysterectomy in future Assessment & Plan (11/08/2022 4:50 PM EDT): s/p Endometrial Curetting's, polyp, benign -Pt has follow-up appointment with DUB ROOM ENGINEER -Pt is on Coumadin -Pt requested Hysterectomy, pt will follow-up with DUB ROOM ENGINEER with possible hysterectomy in future Cyst of ovary 09/22/2022 Iron deficiency anemia due to chronic blood loss 09/22/2022 Assessment & Plan (05/30/2024 1:41 PM EST): - AUB in a setting of anticoagulation - s/p removal of endometrial polyp, benign - Pt has follow-up appointment with DUB ROOM ENGINEER - Pt is taking Coumadin Assessment & Plan (11/03/2023 12:09 PM EDT): - AUB in a setting of anticoagulation - s/p removal of endometrial polyp, benign -Pt has follow-up appointment with DUB ROOM ENGINEER -Pt is taking Coumadin Assessment & Plan (11/08/2022 4:45 PM EDT): Due to AUB: S/p Endometrial Curetting's, polyp, benign -Pt has follow-up appointment with DUB ROOM ENGINEER -Pt is taking Coumadin Vitamin D deficiency 12/04/2018 Assessment & Plan (11/03/2023 12:08 PM EDT): -continue vitamin D supplement Presence of subdermal contraceptive implant 09/2014 History of mechanical aortic valve replacement 0 04/07/2015 Assessment & Plan (05/30/2024 12:22 PM EST): - Survey Coordinator: [facility]. Haynes, last seen in December 2023 - s/p AVR for rheumatic disease and aortic regurgitation in Feb 2010 - EKG showed sinus rhythm and RBBB - echocardiogram 2/7/24 EF 57%. Mechanical aortic valve functioning normally. Moderate mitral valve stenosis. No regurgitation. - Continue warfarin - Continue SBE prophylaxis. Assessment & Plan (11/03/2023 12:18 PM EDT): - 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 Mechanical aortic valve functioning normally. Moderate mitral valve stenosis. No regurgitation. - Continue warfarin - Continue SBE prophylaxis. Assessment & Plan (03/19/2023 1:47 PM EDT): - Survey Coordinator: Dr. Dallas Duran, last seen in Jul 2022 - s/p AVR for rheumatic disease and aortic regurgitation in Feb 2010 - EKG showed sinus rhythm and RBBB - echocardiogram JANUARY 2022 nml LVEF 60-65%; mild mitral valve stenosis - Continue aspirin and warfarin, per cardiology. - Continue SBE prophylaxis. Assessment & Plan (11/22/2022 11:37 AM EDT): - [facility], last seen in Jul 2022 - s/p AVR for rheumatic disease and aortic regurgitation in Feb 2010 - EKG showed sinus rhythm and RBBB - echocardiogram JANUARY 2022 nml LVEF 60-65%; mild mitral valve stenosis - Continue aspirin and warfarin, per cardiology. - Continue SBE prophylaxis. Allergic rhinitis 12/09/2013 Aortic valve regurgitation 07/25/2013 Assessment & Plan (05/30/2024 12:22 PM EST): - Survey Coordinator: Dr. Dallas Duran, last seen in December 2023 - s/p AVR for rheumatic disease and aortic regurgitation due to rheumatic heart disease in Feb 2010 - EKG showed sinus rhythm and RBBB - echocardiogram in Aug 2023, EF 59%. Normally functioning AV. Moderate mitral valve stenosis. - Continue warfarin, per cardiology. - Continue SBE prophylaxis. Assessment & Plan (11/03/2023 12:20 PM EDT): - Survey Coordinator: [facility]. 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 Normally functioning AV. Moderate mitral valve stenosis. - Continue warfarin, per cardiology. - Continue SBE prophylaxis. Assessment & Plan (11/22/2022 11:36 AM EDT): - Survey Coordinator: [facility]. Haynes, last seen in Jul 2022 [...] EDT): - 12/03/22 Evaluated and treated at [facility] [place]. WBC 13k, Lipase 247, CT showed pancreatitis. Given IVF and analgesics. - Seen by [facility] in December 2022 - MRI on 03/01/23 was normal. - HgbA1C 5.9% - Follow recommendations per GI. Menometrorrhagia 09/22/2022 03/07/2023 Pain in female pelvis 09/22/20222022 Encounters Date Type Department Care Team Description 11/14/2024 Orders Only GENERIC EXTERNAL DATA DEPARTMENT Provider, Generic External Data 10/31/2024 2:00 PM EDT Office Visit [facility]ULT [facility] [address] [place] [address] Katt Espinoza Dental plaque (Primary Dx); Teeth missing; Localized gingival recession 10/17/2024 Orders Only GENERIC EXTERNAL DATA DEPARTMENT Provider, Generic External Data 10/11/2024 Telephone [facility] [address] [place], [place] [phone] Clara Shearer MD Referral 10/08/2024 Refill [facility] [address] [place] [address] Clara Shearer MD 10/07/2024 Telephone [facility] [address] [place] [address] Clara Shearer MD 10/01/2024 Telephone [facility] [address] [place] [address] Clara Shearer MD CHART PREP 09/26/2024 Orders Only GENERIC EXTERNAL DATA DEPARTMENT Provider, Generic External Data 09/02/2024 Orders Only [facility] [address] [place] [address] Lyn-Méndez, Daina, DDS 09/02/2024 Telephone [facility] [address] [place] [address] Lyn-Méndez, Daina, DDS pre medi antibiotic 08/28/2024 [...] Description 02/13/2025 3:00 PM EDT Office Visit [facility] [address] [place] [address] Kenroy, Meliza, OD [address] [place] [address] 05/08/2025 8:00 AM EDT Office Visit [facility] [address] [place] [address] Olga, Katt [address] [place] [address] Health Maintenance Due Date Last Done Comments [...] included. Protime 27.9(H) 11.1 - 13.5 sec [facility] 11/14/2024 4:12 PM EDT 11/14/2024 4:58 PM EDT us Generic External Data Provider LAB BLOOD ORDERAB LES Final Result [facility] [address] [place] [phone] * (ABNORMAL) ~PT, ~INR - ANTI COAG CLINIC (11/14/2024 4:12 PM EDT) Only the most recent of4 resultswithin the time period is included. Prothrombin Time INR 2.3(H) 0.9 - 1.1 [facility] Comment:METER #: [id number] TERNATIONAL NORMALIZED RATIO (INR) REFERENCE RANGES Reference [...] Provider LAB BLOOD ORDERAB LES Final Result [facility] [address] [place] [address] [phone] * BI Mammogram Screening Tomosynthesis Bilateral (10/04/2024 3:55 PM EDT) Anatomical Region Laterality Modality Breast Bilateral Mammography 10/04/2024 3:55 PM EDT Narrative 10/13/2024 6:12 PM EDT ? [facility] ? [address] ?[place] [address] ?[phone] ? Mammography Report ? Signed ? Patient: LindaphillipMarkdavidaamir ?MR#: [id number] ?? 2088 ? : 1975 ?Acct:[id number] ? Age/Sex: 49 / F ?ADM Date: 03/14/25 ? Loc: HO.MAMMO ? Attending Dr: Clara Shearer MD ? Ordering Physician: Clara Shearer MD ?Results: 1Negative ? Date of Service: 03/14/25 ?Follow Up: 1 Year From Orig ?? inal Mammogram ? Procedure(s): MM tomosynthesis screening BI ?? Accession Number(s): [id number] ? cc: Clara Shearer MD ? EXAMINATION: [...] DD/ 1555 ? TD/TT: 10/04/24 1608 ? Data Security Administrator: ? Procedure Note Jose Parisi - 10/13/2024 Haylie [facility] [address] [place] [address] Mammography Report Signed Patient: Yoel Martell#: [id number] 2088 : 1975Acct:[id number] Age/Sex: 49 / FADM Date: 10/04/24 Loc: MARIE Attending Dr: Clara Shearer MD Ordering Physician: Clara Shearer MDResults: 1Negative Date of Service: 10/04/24Follow Up: 1 Year From Orig ina Mammogram Procedure(s): MM tomosynthesis screening BI Accession Number(s): [id number] cc: Clara Shearer MD EXAMINATION: MM SCREENING [...] 10/13/24 1809 DD/ 1555 TD/TT: 10/04/24 1608 Data Security Administrator: Clara Shearer MD IM BI PROCEDURES Edited Result - Final * Hepatitis Panel, General (12/11/2023 4:30 PM EDT) Hepatitis A IgM Nonreactive Nonreactive [facility] Comment:IgM antibodies to HEMPHILL V not detected; does not exclude earlyacute or recovered HAV infection. ~Hepatitis B Surface Antibody REACTIVE Nonreactive [facility] Comment:REACTIVE: > 11.99 mI U/mL Hepatitis B Core Antibody Nonreactive Nonreactive [facility] Hepatitis C Antibody Nonreactive Nonreactive [facility] Comment:Antibodies to HCV no t detected; does not exclude early acuteHCV infection. Hepatitis B Surface Ag Negative Negative [facility] 12/11/2023 4:30 PM EDT 12/11/2023 4:33 PM EDT Generic External Data Provider LAB BLOOD ORDERAB LES Final Result Performing Organization Address [facility] Co de Phone Number [facility] [address] [place] [phone] * Hemoglobin A1c (12/11/2023 4:30 PM EDT) Hemoglobin A1c 5.7 <6.0 % [facility] Comment:Hemoglobin A1C Refer ence Range Adults: 4.8 - 6.0 % Non diabetic: < 6.0 % Goal: < 7.0 %Additional Action Suggested: > 8.0 %Note: Hemoglobin A1c results are invalid for patients with abnormal amounts of HbF. Blood transfusions may impact the HbA1c concentration in the patient sample. Estimated Average Glucose 117 mg/dL [facility] Comment:eAG = Estimated ave rage glucose which is %A1C expressed asaverage glucose, using the formula of the B7N-BnofgfaGdiaxug Glucose study (ADAG), Diabetes Care, Vol.31,#8,Feb. 2007 12/11/2023 4:30 PM EDT 12/11/2023 4:33 PM EDT Generic External Data Provider LAB BLOOD ORDERAB LES Final Result Performing Organization Address [facility] Co de Phone Number [facility] [address] [place] [phone] * (ABNORMAL) Lipid Panel with Reflex to Direct LDL (11/16/2023 3:27 PM EDT) Triglycerides 305(H) <150 mg/dL [facility] Comment:Desirable Triglyceri de: less than 150 mg/dLBorderline High Triglyceride 150-199 mg/dLHigh Triglyceride: 200-499 mg/dLVery High Triglyceride: greater than or equal to 5OO mg/dL Cholesterol 220(H) <200 mg/dL [facility] Comment:Desirable Cholestero l: less than 200 mg/dLBorderline High Cholesterol: 200-239 mg/dLHigh Cholesterol: greater than 239 mg/dL LDL Cholesterol Calculated 111(H) <100 mg/dL [facility] Comment:Desirable LDL: less than 100 mg/dLNear Optimal/Above Optimal LDL: 110- 129 mg/dLBorderline High LDL: 130-159 mg/dLHigh LDL: 160-189 mg/dLVery High LDL: greater than or equal to 190 mg/dL HDL Cholesterol 48 >40 mg/dL [facility] Comment:Desirable HDL: great er than 40 mg/dL Note: This HDL assay may give artificially low results in patients with liver disease. Blood 11/16/2023 3:27 PM EDT 11/16/2023 3:27 PM EDT us Clara Shearer MD LAB BLOOD ORDERABLES Final Resul t [facility] [address] [place] [phone] * HIV-1 RNA, Quantitative, Real-Time PCR (12/15/2022 8:09 AM EDT) Pathologist [facility] HIV 1 RNA, QN PCR NOT DETECTED NOT DETECTED copies/mL [facility] HIV 1 RNA, QN PCR NOT DETECTED NOT DETECTED Log copies/mL [facility] [facility] Comment: This test was performed using Real-Time Polymerase Chain Reaction. Reportable Range: 20 copies/mL to 10,000,000 copies/mL (1.30 log copies/mL to 7.00 log copies/mL). Blood Venous blood specimen / Unknown 12/15/2022 8:09 AM EDT 12/15/2022 8:10 AM EDT Narrative [facility] - 12/23/2022 6:53 PM EDT FASTING:NO FASTING: NO us Yany Cosby LITHOGRAPH OPERATOR LAB BLOOD ORDERABLES Final Res ult [facility] [address], [place] [address] [facility] [address] [place] [phone] * THINPREP PAP (11/13/2020 4:51 PM EDT) [...] historic and ?? current clinical information. ?? Manager Business Banking : SEE COMMENT [facility] Comment: RK, CT(ASCP) CT screening location: [address] ??[phone] Interpretation/R esult: Negative for intraepithelial lesion or malignancy. [facility] LMP: NONE GIVEN [facility] Prev. BX: NONE [facility]IVEN [facility] Prev. PAP: NONE GIVEN [facility] Review Manager Business Banking : SEE COMMENT [facility] Comment: BLC,CT(ASCP) CT screening location: [address] ??[phone] SOURCE: None given [facility] Statement Of Adequacy: SEE COMMENT [facility] Comment: Satisfactory for evaluation. Endocervical/transformation zone component present. Age and/or menstrual status not provided 11/13/2020 4:51 PM EDT us Ginette Her CHRONIC SPECIALIST LAB PATHOLOGY ORDERABLES Final Result [facility] [address] * HPV GENOTYPES 16,18/45 (11/13/2020 4:51 PM EDT) HPV 16 RNA NOT DETECTED NOT DETECTED [facility] HPV 18/45 RNA NOT DETECTED NOT DETECTED [facility] Comment: Methodology: Local Coordinator Mediated Amplification The analytical performance characteristics of this assay have been determined by [facility]. The modifications have not been cleared or approved by the FDA. This assay has been validated pursuant to the CLIA regulations and is used for clinical purposes. 11/13/2020 4:51 PM EDT us Ginette Her NP LAB CYTOLOGY ORDERABLES Final R esult [facility] [address] from Last 3 Months or Most Recently Relevant to Health Maintenance Insurance [facility] - HSN FULL (MEDICAID) [facility] AD[facility] Care Teams Automobile Inspector Relationship Specialty Start Date End Date Clara Shearer MD [address] [place] [phone] PCP - General Family Medicine 07/24/18
--- OUTSIDE RECORDS SUMMARY | 2024-11-22 15:26 | XMS_ITS | Encounter Summary ---
Author Organization [employer] Address [address] [place] [address] 7 [place] [address] Care Team Providers Care Credit And Collection Manager Name Role Phone Clara Shearer MD Primary Care Provider [phone] Reason for Referral * Imaging (Routine) - Closed Specialty Diagnoses / Procedures Referred By Contac t Referred To Contact Radiology Diagnoses Metabolic dysfunction-associated steatotic liver disease (MASLD) Procedures US Abdomen Comp w elastography Clara Shearer MD [address] [place] [address] Phone: tel: fax: [address] Phone: tel: fax: Referral ID Status Reason Start Date Expiration Date Visits Re quested Visits Authorized [id number] Closed 11/17/2023 11/16/2024 1 1 Encounter Details Date Type Department Care Team (Late st Contact Info) Description 11/17/2023 Orders Only [facility] [address] [place], [place] [phone] Clara Shearer MD [address] [place], [place] [phone] Metabolic dysfunction-associated steatotic liver disease (MASLD) (Primary [...] Description 02/13/2025 3:00 PM EDT Office Visit [facility] [address] [place] [address] Meliza Jasmine, OD [address] [place] [address] 05/08/2025 8:00 AM EDT Office Visit [facility] ADULT DENTAL [address] [place] [address] Katt Espinoza [address] [place] [address] documented as of this encounter Procedures Procedure Name Priority Date/Time Associated Diagnosis Comments US ABDOMEN COMPLETE WITH ELASTOGRAPHY Routine 12/05/2023 9:26 AM EDT Metabolic dysfunction-associa ebony steatotic liver disease (MASLD) documented in this encounter Results * US Abdomen Comp w elastography (12/05/2023 9:26 AM EDT) Anatomical Region Laterality Modality Abdomen Ultrasound 12/05/2023 9:26 AM EDT Narrative 12/12/2023 9:41 AM EDT ? [facility] ?[address] ?[place] [address] ? Ultrasound Report ? Signed ? Patient: Jasbir,Marktwin ?MR#: [id number] ?? 2087 ? : 1975 ?Acct:[id number] ? Age/Sex: 48 / F ?ADM Date: 12/05/23 ? Loc: HO.US ? Attending Dr: Clara Shearer MD ? Ordering Physician: Clara Shearer MD ?? Date of Service: 12/05/23 ?? Procedure(s): US abdomen comp w elastography ?? Accession Number(s): [id number] ? cc: Clara Shearer MD ? EXAMINATION: [...] 0937 ? DD/ 0926 ? TD/TT: ? Production Or Plant Engineer: SS ? Procedure Note Ailin, Image - 12/12/2023 [place] [address] Ultrasound Report Signed Patient: Yoel Martell#: [id number] 2088 : 1975Acct:[id number] Age/Sex: 48 / FADM Date: 12/05/23 Loc: HO.US Attending Dr: Clara Shearer MD Ordering Physician: Clara Shearer MD Date of Service: 12/05/23 Procedure(s): US abdomen comp w elastography Accession Number(s): [id number] cc: Clara Shearer MD EXAMINATION: US COMPLETE [...] MD in OV> 12/12/23936 DD/ 5 TD/TT: Production Or Plant Engineer: SS us Clara Shearer MD IMG US PROCEDURES Final Result documented in this encounter Visit Diagnoses Diagnosis Metabolic dysfunction-associated steatotic liver disease (MASLD)- Primary documented in this encounter Additional Health Concerns Assessment Noted Time PHQ-9 Depression Total Score: 0 10/17/19 24 3:45 PM EDT documented as of this encounter Care Teams Credit And Collection Manager Relationship Specialty Start Date End Date Clara Shearer MD [address] [place] [address] PCP - General Family Medicine 07/24/18 documented as of this encounter
--- OUTSIDE RECORDS SUMMARY | 2024-11-22 15:26 | XMS_ITS | Referral Summary ---
Author Organization [facility] Address [address] [place] [address] Care Team Providers Care Salad Bar Clerk Name Role Phone Manfred Clara Primary Care Provider [phone] Allergies No known active allergies Medications aspirin [...] Most Recently Relevant to Health Maintenance Insurance [facility]/FREE [address] [place] [address] Care Teams Salad Bar Clerk Relationship Specialty Start Date End Date Clara Shearer [address] [place] [address] PCP - General Family Medicine 05/26/20
--- OUTSIDE RECORDS SUMMARY | 2024-11-22 15:26 | XMS_ITS | Encounter Summary ---
Author Organization [employer] Address [address] [facility] 7t [place] [address] Care Team Providers Care German Teacher Name Role Phone Clara Shearer MD Primary Care Provider [phone] Encounter Details Date Type Department Care Team ([facility] st Contact Info) Description 01/22/2024 Orders Only [facility] [address] [place], [place] [phone] Clara Shearer MD [address] [place], [place] [phone] History of mechanical aortic valve replacement Social [...] Description 02/13/2025 3:00 PM EDT Office Visit [facility] OPTOMET[facility] [address] [place] [address] Kenroy, Meliza, OD [address] [place] [address] 05/08/2025 8:00 AM EDT Office Visit [facility] ADULT DENTAL [address] [place] [address] Olga, Katt [address] [place] [address] documented as of this encounter Visit Diagnoses Diagnosis History of mechanical aortic valve replacement documented in this encounter Additional Health Concerns Assessment Noted Time PHQ-9 Depression Total Score: 0 10/17/19 24 3:45 PM EDT documented as of this encounter Care Teams German Teacher Relationship Specialty Start Date End Date Clara Shearer MD [address] [place] [address] PCP - General Family Medicine 07/24/18 documented as of this encounter
--- OUTSIDE RECORDS SUMMARY | 2024-11-22 15:26 | XMS_ITS | Encounter Summary ---
Author Organization [employer] Address [address] [employer] [address] 7 [place] [address] Care Team Providers Care Hvac Technician Residential Name Role Phone Clara Shearer MD Primary Care Provider [phone] Reason for Visit * Reason Onset Date Comments Letter for School/Work 08/02/2022 Encounter Details Date Type Department Care Team ([facility] st Contact Info) Description 08/02/2022 Telephone [facility] MEDICINE [address] [place] [address] Clara Shearer MD [address] [place] [address] Letter for School/Work Social History Tobacco Use [...] a upcoming procedure on 08-19-22. Fax number [phone] Any question please contact Ambreen at [phone] ext [phone] * Telephone Encounter - Khang Garcia - 08/04/2022 2:41 PM EST Tc from pankaj with [facility] requesting a call regarding message below Please contact pankaj at [phone] * Telephone Encounter - Ronda Mahan LPN - 08/04/2022 2:41 PM EST Kelly, this should be done upstairs we do not do letters regarding medication stop or start. Please discuss with Dr. Shearer on what she wants and you can call [facility] to fax that order/letteror if they will take verbal orders from you that is even easier. * Telephone Encounter - Kelly Campuzano RN - 08/02/2022 3:33 PM EST Pt having procedure (dilation and curettage with hysteroscopy to place mirena) at [facility] 08/19/22. They are requesting a letter stating when pt should stop and restart coumadin (how many days before and after). * Telephone Encounter - Khang Garcia - 08/02/2022 2:48 PM EST Tc from claudia with [facility] requesting a letter stating when pt will be stopping medication ( warfarin 2 mg ) prior to OP Please contact claudia at [phone] ext [phone] documented in this encounter Plan of Treatment Upcoming Encounters Date Type Department Care Team (Late st Contact Info) Description 02/13/2025 3:00 PM EDT Office Visit [facility] OPTOMETRY [address] [place], [place] [phone] Kenroy, Meliza, OD [address] [place] [address] 05/08/2025 8:00 AM EDT Office Visit [facility] ADULT DENTAL [address] [place], [place] [phone] Jignesh Espinozaaris [address] [place] [address] documented as of this encounter Visit Diagnoses Not on filedocumented in this encounter Care Teams Hvac Technician Residential Relationship Specialty Start Date End Date Clara Shearer MD [address] [place] [address] PCP - General Family Medicine 07/24/18 documented as of this encounter
--- OUTSIDE RECORDS SUMMARY | 2024-11-22 15:26 | XMS_ITS | Encounter Summary ---
Author Organization [employer] Address [address] [facility] 7 [place] [address] Care Team Providers Care Web Mobile Designer Name Role Phone Clara Shearer MD Primary Care Provider [phone] Reason for Referral * Consultation (Routine) - Closed Specialty Diagnoses / Procedures Referred By Contac t Referred To Contact Physical Therapy Diagnoses Right hip pain Chronic right-sided low back pain, unspecified whether sciatica present Clara Shearer MD [address] [place] [address] Phone: tel: fax: AT Physical Therapy - [address] [address] Phone: tel: fax: Referral ID Status Reason Start Date Expiration Date V isits Requested Visits Authorized [id number] Closed Specialty Services Required 11/14/2023 11/13/2024 1 1 Encounter Details Date Type Department Care Team (Late st Contact Info) Description 11/14/2023 Orders Only [facility] MEDICINE [address] [place], [place] [phone] Clara Shearer MD [address] [place], [place] [phone] Right hip pain (Primary Dx); Chronic right-sided [...] Description 02/13/2025 3:00 PM EDT Office Visit [facility] OPTOMETRY [address] [place] [address] Kenroy, Meliza, OD [address] [place] [address] 05/08/2025 8:00 AM EDT Office Visit [facility]ULT [facility] [address] [place] [address] Katt Espinoza [address] [place] [address] Scheduled Referrals Name Type Priority Associated Diagnoses [...] EDT Narrative 11/25/2023 8:18 AM EDT ? [facility] ?[address] ?[place] [address] ?XRay Report ? Signed ? Patient: Thalia Martell ?MR#: [id number] ?? [id number] ? : 1975 ?Acct:[id number] ? Age/Sex: 48 / F ?ADM Date: 11/16/23 ? Loc: HO.XRAY ? Attending Dr: Clara Shearer MD ? Ordering Physician: Clara Shearer MD ?? Date of Service: 11/16/23 ?? Procedure(s): XR thoracic spine 2V ?? Accession Number(s): [id number] ? cc: Clara Shearer MD ? EXAMINATION: [...] ?11/25/2315 ? DD/ 1549 ? TD/TT: ? Fashion Supervisor: QUINN ? Procedure Note Donlakeisha, Image - 11/25/[address] [address] XRay Report Signed Patient: Yoel Martell#: [id number] : 1975Acct:[id number] Age/Sex: 48 / FADM Date: 11/16/23 Loc: [facility] Attending Dr: Clara Shearer MD Ordering Physician: Clara Shearer MD Date of Service: 11/16/23 Procedure(s): XR thoracic spine 2V Accession Number(s): [id number] cc: Clara Shearer MD EXAMINATION: XR THORACOLUMBAR [...] MD inOV> 11/25/23 0815 DD/ 1549 TD/TT: Fashion Supervisor: QUINN Clara Shearer MD IMG XR PROCEDURES [...] documented as of this encounter Care Teams Web Mobile Designer Relationship Specialty Start Date End Date Clara Shearer MD [address] [place] [address] PCP - General Family Medicine 07/24/18 documented as of this encounter
--- OUTSIDE RECORDS SUMMARY | 2024-11-22 15:26 | XMS_ITS | Clinical Summary ---
Author Organization [facility] Address [address] [place] [address] Care Team Providers Care Veneer Repairer Machine Name Role Phone Manfred Clara Primary Care Provider Allergies No known active allergies Medications aspirin [...] complete this topic Procedures * Due to [place] state law, this organization might not be sharing negative HIV tests. Procedure Name Priority Date/Time Associated Diagnosis Comments PAP Routine 12/17/2020 2:37 PM EDT Hematometra from Last 3 Months or Most Recently Relevant to Health Maintenance Insurance [facility] HSNO/FREE [place] [address] Care Teams Veneer Repairer Machine Relationship Specialty Start Date End Date Clara Shearer [address] [place] [address] PCP - General Family Medicine 05/26/20
--- OUTSIDE RECORDS SUMMARY | 2024-11-22 15:26 | XMS_ITS | Encounter Summary ---
Author Organization [employer] Address [address] [facility] 7t [place] [address] Care Team Providers Care Superintendent Operations Division Name Role Phone Clara Shearer MD Primary Care Provider [phone] Reason for Visit * Reason Onset Date Comments rs otf 05/22/2023 Encounter Details Date Type Department Care Team ([facility] st Contact Info) Description 05/22/2023 Telephone [facility] ADULT DENTAL [address] [place], [place] [phone] Olga, Katt [address] [place] [address] rs prophdee Social History Tobacco Use Types Packs/Day Years [...] Description 02/13/2025 3:00 PM EDT Office Visit [facility] OPTOMETRY [address] [place] [address] Kenroy, Meliza, OD [address] [place] [address] 05/08/2025 8:00 AM EDT Office Visit [facility] ADULT DENTAL [address] [place] [address] Katt Espinoza [address] [place] [address] documented as of this encounter Visit Diagnoses Not on filedocumented in this encounter Additional Health Concerns Assessment Noted Time PHQ-9 Depression Total Score: 5 03/07/20 23 3:27 PM EDT documented as of this encounter Care Teams Superintendent Operations Division Relationship Specialty Start Date End Date Clara Shearer MD [address] [place] [address] PCP - General Family Medicine 07/24/18 documented as of this encounter
--- OUTSIDE RECORDS SUMMARY | 2024-11-22 15:26 | XMS_ITS | Encounter Summary ---
Author Organization [employer] [facility] Address [address] [facility] 7t [place] [address] Care Team Providers Care Chemical Laboratory Technician Name Role Phone Clara Shearer MD Primary Care Provider [phone] Encounter Details Date Type Department Care Team (Late st Contact Info) Description 07/20/2022 Abstract [facility] MEDICINE [address] [place] [address] Clara Shearer MD [address] [place] [address] Social History Tobacco Use Types Packs/Day Years [...] Description 02/13/2025 3:00 PM EDT Office Visit [facility] OPTOMETRY [address] [place] [address] Meliza Jasmine, OD [address] [place] [address] 05/08/2025 8:00 AM EDT Office Visit [facility] ADULT DENTAL [address] [place] [address] Jignesh Espinozaaris [address] [place] [address] documented as of this encounter Visit Diagnoses Not on filedocumented in this encounter Care Teams Chemical Laboratory Technician Relationship Specialty Start Date End Date Clara Shearer MD [address] [place] [address] PCP - General Family Medicine 07/24/18 documented as of this encounter
--- OUTSIDE RECORDS SUMMARY | 2024-11-22 15:26 | XMS_ITS | Encounter Summary ---
Author Organization [employer] Address [address] [facility] 7t [place] [address] Care Team Providers Care Plastic Cutter Name Role Phone Clara Shearer MD Primary Care Provider [phone] Reason for Visit * Reason Onset Date Comments Nurse Triage 06/05/2023 Encounter Details Date Type Department Care Team ([facility] st Contact Info) Description 06/05/2023 Telephone [facility] MEDICINE [address] [place], [place] [phone] Clara Shearer MD [address] [place], [place] [phone] Nurse Triage Social History Tobacco Use Types [...] 06/05/2023 4:47 PM EST Triage call with [employer] [place] Mixer ID [id number] Pt reports headaches which have started 2 [...] to try this. Pt will come to [facility] tomorrow 06/06/23 to be seen by [...] Nausea as well Please contact pt at [phone] Austrian Speaker. documented in this encounter Plan of Treatment Upcoming Encounters Date Type Department Care Team (Late st Contact Info) Description 02/13/2025 3:00 PM EDT Office Visit [facility] OPTOMETRY [address] [place] [address] Kenroy, Meliza, OD [address] [place] [address] 05/08/2025 8:00 AM EDT Office Visit [facility] ADULT DENTAL [address] [place] [address] Olga, Katt [address] [place] [address] documented as of this encounter Visit Diagnoses Not on filedocumented in this encounter Additional Health Concerns Assessment Noted Time PHQ-9 Depression Total Score: 5 03/07/20 23 3:27 PM EDT documented as of this encounter Care Teams Plastic Cutter Relationship Specialty Start Date End Date Clara Shearer MD [address] [place] [address] PCP - General Family Medicine 07/24/18 documented as of this encounter
--- OUTSIDE RECORDS SUMMARY | 2024-11-22 15:26 | XMS_ITS | Encounter Summary ---
Author Organization [employer] [facility] Address [address] [facility] 7t [place] [address] Care Team Providers Care Buffing Turner And Counter Name Role Phone Clara Shearer MD Primary Care Provider [phone] Encounter Details Date Type Department Care Team (Latest Contact Info) Description 09/26/2019 Abstract [facility] CONVERSIONS Dental, Provider, DDS Social History [...] Description 02/13/2025 3:00 PM EDT Office Visit [facility] OPTOMETRY [address] [place] [address] Meliza Jasmine, OD [address] [place] [address] 05/08/2025 8:00 AM EDT Office Visit [facility] ADULT DENTAL [address] [place] [address] Olga, Katt [address] [place] [address] documented as of this encounter Visit Diagnoses Not on filedocumented in this encounter Care Teams Buffing Turner And Counter Relationship Specialty Start Date End Date Clara Shearer MD [address] [place] [address] PCP - General Family Medicine 07/24/18 documented as of this encounter
[2024-11-22 15:28] VITALS: BP 108/74; PULSE 65; O2SAT 96
--- NOTE | 2024-11-22 15:28 | A.OFFVIS_ITS ---
Vital Signs 11/22/24 15:28 Height 4 ft 11 in Weight 148 lb 6 oz BMI 30.0 BP 108/74 Blood Pressure Location Lt brachial Position Sitting Pulse 65 Pulse Source Pulse Oximeter Pulse Oximetry (%) 96 Oxygen Delivery Method Room Air Intake Visit Reasons: 1mon follow-up Intake Note: Patient presents follow up Migraine/AYESHA medication. Patient states never got a call for CPAP. Online Merchandising Manager Required: Yes Online Merchandising Manager Services: Online Merchandising Manager Present Online Merchandising Manager Name: Raf [id number] Information Interpreted: non-clinical & clinical Allergies peach Allergy (Severe, Verified 12/12/24 15:37) Angioedema HPI Comments Details: 49 year old tamazight speaking female presents for evaluation of sleep and chronic headaches. Online Merchandising Manager on IPAD PSG is c/w mild ayesha AHI was 11, REM AHI is 28/hr and oxygen Paz at 87%. MRI explained to patient LBP L5/S1 disc herniation and r. hip pain, had 7 weeks of PT, wears SI joint belt. She has h/o Rheumatic Fever and AVR in December 2023 managed with warfarin. She has difficulty sleeping and continues to snore loudly. She waeks up multiple times a night and has fragmented sleep, she is fatigued most days with no energy. She goes to bed at midnight and wakes up at 4am, she says she has to cook and clean for her entire family at begins her chores at 4am. She still has pain though improved with PT however it is worse with prolonged s tanding. She notices numbness and tingling in r. side of hip radiating down to the leg and numbness into digits 1,and 2 on r. foot. She c/o RLS with tingling and numbness in both feet which keeps her from falling asleep and staying asleep at night, she has to move her feet, and wakes up multiple times. She c/o migraines with aura 2-3x a week, and can be continuous, vision gets dark she has an appt in January 2025 with her eye doctor and says her eyes itch alot, despite using saline drops in her eyes at night. She was getting intense pain with the headaches daily due to her recent dentures 3 months ago now she says the severity is about the same. The migraines occur 4-5 x a week, if she doesn't sleep she gets a headache which becomes a migraine always start with the migraine auras. Migraine with Aura and Prodrome: She says she still feels like there is light coming out of her eyes, with blurry vision and flashes in her peripheral vision, photo/phonophobia, colors like whith and black clothing intensify the sensation of pain. She gets dizzy, loses her balance, has vertigo as if the room is spinning at least once a month, no nausea or vomiting. Intense pain, pulsating with throbbing and pressure that begins at the temples and frontal to the occiput as if she is wearing a tight cap, she pulls her hair out and this helps to relive the pain a little. Sumatriptan has helped to lessen her migraine pain and severity. She has not been to the ER since starting topiramate along with the triptan. We discussed increasing her topiramate dose to 50mg po daily at bedtime. Her mood, diet and memory are stable. 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 Gender identity: Female Female Reproductive History Menstrual Age of Menarche: 14 Physical Exam Vital Signs: Last Vital Signs Pulse 65 11/22/24 15:28 BP 108/74 11/22/24 15:28 Pulse Ox 96 11/22/24 15:28 Oxygen Delivery Method Room Air 11/22/24 15:28 BMI result Body Mass Index 30.0 Const General: cooperative and tired appearing Nutritional Appearance: overweight Orientation/consciousness: patient oriented x3 Eyes Sclerae: scleral abnormal (scleral injection) bilateral Pupils: Equal, round and reactive pupils present Resp Effort & Inspection: normal respiratory effort Neuro General: patient oriented x3 and moves all extremities Cranial nerves: Yes Equal, round and reactive pupils present, Yes Normal accommodation reflex present, Yes Normal facial strength present, Yes Midline tongue present, Yes Ability to bilaterally rotate head present and Yes Ability to bilaterally elevate shoulders present Gait exam (Neuro): Normal gait present Coordination: [id number] test normal Psych Appearance: well kempt Attitude: cooperative Thought process: Normal thought process present Thought content: Normal thought content present Results Reviewed Results Reviewed: PSG 10/16/2023 AHI is 11, REM AHI is 28/hr, oxygen paz to 87%, start cpap at [id number]. Assessment & Plan Assessment & Plan (1) AYESHA (obstructive sleep apnea): Code(s): G47.33 - Obstructive sleep apnea (adult) (pediatric) Category: Medical (2) Migraine aura occurring with and without headache: Code(s): G43.109 - Migraine with aura, not intractable, without status migrainosus Category: Medical (3) Itchy, watery, and red eye: Code(s): H57.9 - Unspecified disorder of eye and adnexa Category: Medical (4) Lumbar disc herniation: Comment: Reviewed MRI with patient and emphasized use of SI belt. Code(s): M51.26 - Other intervertebral disc displacement, lumbar region Category: Medical (5) Fatigue due to sleep pattern disturbance: Code(s): R53.83 - Other fatigue; G47.9 - Sleep disorder, unspecified Category: Medical Plan AYESHA, CPAP order sent for mild degree apnea AHI is 11 and Oxygen is 87%. Acute daily migraines with aura Sumatriptan increased to 100mg PO at onset of migraine, may take one additional tablet with in 2 hours if migraine does not abort. Do not take more than 200mg in a 24 hour period. Chronic migraines maintenance medication Topiramate increased from 25mg to 50mg PO daily at bedtime. Itchy watery eyes, allergies? Vision evaluation pending, patient requested eye drops, Pataday prn daily for relief of itchy eyes. Will send for CTscan as migraines have not improved and continues to have vision difficulties. Labs to r/o fatigue CBC/CMP/ TSH / B12/ Homocysteine Ferritin, MMA, cholesterol, A1c, Orders: Orders CT head/brain wo IV con 11/22/24 G43.109 - Migraine with aura, not intractable, without status migrainosus Medications: New olopatadine 0.2% (Pataday Once Daily Relief) itchy dry eyes may use as needed. 1 drp ophthalmic (eye) DAILY PRN 2.5 mL 1RF itching 30 days MDD as needed H57.9 - Unspecified disorder of eye and adnexa Patient Instructions: Sleep Hygiene provided: set a scheduled bedtime and wake time to help regulate the circadian rhythm and balance the release of pituitary hormones. Sleep in a dark room, temperatures below 68 degrees, and no devices n bed. Limit caffeinated products 6 hours prior to bed, and limit fluids 2-4 hours prior to bed. Gentle night yoga, diffusing essential oils, and playing soft music can be relaxing. Wash mask and hoses as needed daily, change filters and water in reservoir of cpap machine. Monitor daily headaches with migraine yessy addison or journal, f/u with office on the portal or telephone if not improving in severity or frequency. Will evaluate RLS at next visit after labs are completed. F/U with eye doctor for vision evaluation. F/u with patient to ensure she picks up cpap and is using it daily. F/u in 2 months after CTscan. Coding Level of Care Code Est Pt Level 4 (20073) Complex EM visit Add On G2211 Diagnoses AYESHA (obstructive sleep apnea) G47.33 Migraine aura occurring with and without headache G43.109 Itchy, watery, and red eye H57.9 Lumbar disc herniation M51.26 Fatigue due to sleep pattern disturbance R53.83; G47.9 Time Spent (min) 35
== END 2024-11-22 16:07 | disposition home or self-care (01) ==
LOC: HO.HSMS 15:24
PROVIDERS: PCP Family Medicine; Visit Provider Physician Assistant Medical
DX: G47.33 Obstructive sleep apnea (adult) (pediatric) (principal); G43.109 Migraine with aura, not intractable, without status migrainosus; H57.9 Unspecified disorder of eye and adnexa; M51.26 Other intervertebral disc displacement, lumbar region; R53.83 Other fatigue; G47.9 Sleep disorder, unspecified
CPT/HCPCS: 99214; G2211

== ENCOUNTER → 2024-11-22 15:23 | Outpatient (BNVA) | payer OTHER, SELFPAY | PROVIDERS: PCP Family Medicine; Visit Provider Physician Assistant Medical | DX: G47.33 Obstructive sleep apnea (adult) (pediatric) (principal); G43.109 Migraine with aura, not intractable, without status migrainosus; H57.9 Unspecified disorder of eye and adnexa; M51.26 Other intervertebral disc displacement, lumbar region; R53.83 Other fatigue | CPT/HCPCS: 99212 ==

== ENCOUNTER 2024-12-12 15:37 | Outpatient (AMB) | payer OTHER, SELFPAY ==
--- OUTSIDE RECORDS SUMMARY | 2024-12-12 15:39 | XMS_ITS | Encounter Summary ---
Author Organization [employer] Address [address] [facility] 7t [place] [address] Care Team Providers Care Staple Laster Name Role Phone Clara Shearer MD Primary Care Provider [phone] Encounter Details Date Type Department Care Team ([facility] st Contact Info) Description 01/22/2024 Orders Only [facility] MEDICINE [address] [place], [place] [phone] Clara Shearer MD [address] [place], [place] [phone] History of mechanical aortic valve replacement Social [...] Description 02/13/2025 3:00 PM EDT Office Visit [facility] OPTOMETRY [address] [place] [address] Kenroy, Meliza, OD [address] [place] [address] 05/08/2025 8:00 AM EDT Office Visit [facility] ADULT DENTAL [address] [place] [address] Olga, Katt [address] [place] [address] documented as of this encounter Visit Diagnoses Diagnosis History of mechanical aortic valve replacement documented in this encounter Additional Health Concerns Assessment Noted Time PHQ-9 Depression Total Score: 0 10/17/19 24 3:45 PM EDT documented as of this encounter Care Teams Staple Laster Relationship Specialty Start Date End Date Clara Shearer MD [address] [place] [address] PCP - General Family Medicine 07/24/18 documented as of this encounter
[2024-12-12 15:42] LABS: Prothrombin Time Whole Bld POC 28.9 sec (11.1-13.5); ~PT, ~INR - Anti Coag Clinic 2.4 (0.9-1.1)
--- NOTE | 2024-12-12 15:45 | MHC.OFFVISCO ---
Intake Intake Visit Reasons: Anticoagulation Allergies peach Allergy (Severe, Verified 12/12/24 15:37) Angioedema Medication List - Last Reconciled 12/12/24 by Ruthy Newby RN ascorbic acid (vitamin C) 500 mg PO BID aspirin (Adult Aspirin Regimen) 81 mg PO DAILY 90 days cetirizine 10 mg PO DAILY cholecalciferol (vitamin D3) 50 mcg PO DAILY hydrocortisone 2.5% (Proctosol HC) 1 appl MO BID-QID PRN multivitamin (One Daily Multivitamin tablet) 1 tab PO DAILY olopatadine 0.2% (Pataday Once Daily Relief) 1 drp ophthalmic (eye) DAILY PRN 30 days MDD as needed omeprazole 20 mg PO DAILY PRN sumatriptan succinate 100 mg PO .prn MDD 200mg tolterodine ER 4 mg PO DAILY PRN topiramate 50 mg PO DAILY PRN warfarin See Protocol orally 6mg daily; Nursing Note INR: 2.4 in therapeutic range Medications and supplements reviewed No changes in health, diet, medications, or supplements, Denies any signs and symptoms of bleeding or bruising or clotting. Bleeding, bruising, clotting discussed Nutritional guidance given Dose: 6mg daily F/U INR: 1month Patient verbalizes understanding of instructions given Anti-Coag Initial Assessment Social Hx Patient Tobacco Use Status: Never used Tobacco alcohol intake: never Alcohol intake frequency: does not drink Coding Level of Care Code Est Patient Level 1 Diagnoses Current use of anticoagulant therapy Z79.01 Assessment & Plan Assessment & Plan (1) Current use of anticoagulant therapy: Comment: Continue Coumadin. 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
== END 2024-12-12 15:49 | disposition home or self-care (01) ==
LOC: HO.ACS 15:37
PROVIDERS: PCP Family Medicine; Visit Provider Internal Medicine Medical Oncology
DX: Z79.01 Long term (current) use of anticoagulants (principal)

== ENCOUNTER → 2024-12-12 15:37 | Outpatient (BNVA) | payer OTHER, SELFPAY | PROVIDERS: PCP Family Medicine; Visit Provider Internal Medicine Medical Oncology | DX: Z95.2 Presence of prosthetic heart valve (principal); Z79.01 Long term (current) use of anticoagulants; Z51.81 Encounter for therapeutic drug level monitoring | CPT/HCPCS: 85610; 99211 ==

== ENCOUNTER 2025-01-08 15:08 | Outpatient (AMB) | payer OTHER, SELFPAY ==
--- NOTE | 2025-01-08 15:22 | MHC.OFFVISCO ---
Intake Intake Visit Reasons: Anticoagulation Allergies peach Allergy (Severe, Verified 01/08/25 15:10) Angioedema Medication List - Last Reconciled 01/08/25 by Tricia Stock RN ascorbic acid (vitamin C) 500 mg PO BID aspirin (Adult Aspirin Regimen) 81 mg PO DAILY 90 days cetirizine 10 mg PO DAILY cholecalciferol (vitamin D3) 50 mcg PO DAILY hydrocortisone 2.5% (Proctosol HC) 1 appl MI BID-QID PRN multivitamin (One Daily Multivitamin tablet) 1 tab PO DAILY olopatadine 0.2% (Pataday Once Daily Relief) 1 drp ophthalmic (eye) DAILY PRN 30 days MDD as needed omeprazole 20 mg PO DAILY PRN sumatriptan succinate 100 mg PO .prn MDD 200mg tolterodine ER 4 mg PO DAILY PRN topiramate 50 mg PO DAILY PRN warfarin See Protocol orally 6mg daily; Nursing Note PT.STATES THAT SHE INJURED HER BACK WHILE GARDENING. SHE HAS FLEXERIL FOR PAIN WITH MINIMAL RELIEF. PT.AGREES TO CONTACT PCP RE ONGOING LOW BACK PAIN WHICH RADIATES TO (L) LEG. CONTINUE PRESENT DOSING AND FOLLOW-UP IN 4 WEEKS. GOOD UNDERSTANDING OF INSTR. MAY ALSO TRY TYLENOL AND ICE OR HEAT TO LOW BACK Anti-Coag Initial Assessment Social Hx Patient Tobacco Use Status: Never used Tobacco alcohol intake: never Alcohol intake frequency: does not drink Coding Level of Care Code Est Patient Level 1 Diagnoses Current use of anticoagulant therapy Z79.01 Results AMB INR Fingerstick AMB INR Fingerstick 2.9 Last Edit by Tricia Stock RN on 01/08/25 15:19 Assessment & Plan Assessment & Plan (1) Current use of anticoagulant therapy: Comment: Continue Coumadin. 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
[2025-01-08 15:23] LABS: Prothrombin Time Whole Bld POC 34.5 sec (11.1-13.5); ~PT, ~INR - Anti Coag Clinic 2.9 (0.9-1.1)
--- OUTSIDE RECORDS SUMMARY | 2025-01-08 17:26 | XMS_ITS | Encounter Summary ---
Author Organization [employer] Address [address] [place] [address] Care Team Providers Care Swimming Pool Servicer Name Role Phone Clara Shearer MD Primary Care Provider [phone] Encounter Details Date Type Department Care Team ([facility] st Contact Info) Description 01/22/2024 Orders Only [facility] MEDICINE [address] [place], [place] [phone] Clara Shearer MD [address] [place], [place] [phone] History of mechanical aortic valve replacement Social [...] 3:00 PM EDT Office Visit [facility] OPTOMETRY [address] [place] [address] Kenroy, Meliza, OD [address] [place] [address] 05/08/2025 8:00 AM EDT Office Visit [facility] ADULT DENTAL [address] [place] [address] Olga, Katt [address] [place] [address] documented as of this encounter Visit Diagnoses Diagnosis History of mechanical aortic valve replacement documented in this encounter Additional Health Concerns Assessment Noted Time PHQ-9 Depression Total Score: 0 10/17/19 24 3:45 PM EDT documented as of this encounter Care Teams Swimming Pool Servicer Relationship Specialty Start Date End Date Clara Shearer MD [address] [place] [address] PCP - General Family Medicine 07/24/18 documented as of this encounter
== END 2025-01-08 15:27 | disposition home or self-care (01) ==
LOC: HO.ACS 15:08
PROVIDERS: PCP Family Medicine; Visit Provider Internal Medicine Medical Oncology
DX: Z79.01 Long term (current) use of anticoagulants (principal)

== ENCOUNTER → 2025-01-08 15:08 | Outpatient (BNVA) | payer OTHER, SELFPAY | PROVIDERS: PCP Family Medicine; Visit Provider Internal Medicine Medical Oncology | DX: Z95.2 Presence of prosthetic heart valve (principal); Z79.01 Long term (current) use of anticoagulants; Z51.81 Encounter for therapeutic drug level monitoring | CPT/HCPCS: 85610; 99211 ==

== ENCOUNTER 2025-01-15 15:03 | Outpatient (AMB) | payer OTHER, SELFPAY ==
[2025-01-15 16:06] VITALS: BP 100/70; PULSE 67; BMI 29.7
--- NOTE | 2025-01-15 16:06 | MHC.OFFVIS ---
Vital Signs 01/15/25 16:06 Height 4 ft 11 in Weight 147 lb 4.301 oz BMI 29.7 BP 100/70 Blood Pressure Location Lt brachial Position Sitting Pulse 67 Pulse Source Monitor Intake Visit Reasons: 1 yr followup w/ekg Intake Note: 1 yr f/up w ekg Mounting Machine Operator Required: Yes Mounting Machine Operator Language: Tongue And Groove Machine Operator Name: [id number] Accompanied by: Self / Same As Patient Allergies peach Allergy (Severe, Verified 01/08/25 15:10) Angioedema Medication List - Last Reconciled 01/15/25 by Terence Haynes MD ascorbic acid (vitamin C) 500 mg PO BID aspirin (Adult Aspirin Regimen) 81 mg PO DAILY 90 days cetirizine 10 mg PO DAILY cholecalciferol (vitamin D3) 50 mcg PO DAILY cyclobenzaprine 10 mg PO TID hydrocortisone 2.5% (Proctosol HC) 1 appl PA BID-QID PRN multivitamin (One Daily Multivitamin tablet) 1 tab PO DAILY olopatadine 0.2% (Pataday Once Daily Relief) 1 drp ophthalmic (eye) DAILY PRN 30 days MDD as needed omeprazole 20 mg PO DAILY PRN sumatriptan succinate 100 mg PO .prn MDD 200mg tolterodine ER 4 mg PO DAILY PRN topiramate 50 mg PO DAILY PRN warfarin See Protocol orally 6mg daily; HPI Comments Details: Pleasant 49-year-old lady here for history of aortic valve replacement. She has history of rheumatic heart disease and underwent mechanical aortic valve replacement by Dr. Daniel in 2009 for severe aortic valve regurgitation. She had a # 23 [place] mechanical prosthetic valve. she has been on Coumadin since then. She was sent for echocardiography. ECHO showed normally functioning mechanical valve in the aortic position. She was also noticed to have mild mitral valve stenosis. As mentioned she had rheumatic heart disease. She has been doing well on follow-up. She is denying chest discomfort or any significant shortness of breath. She has been having menorrhagia and will be undergoing surgery for that. He is on Coumadin for the mechanical aortic valve. She has normal LV function and has been in sinus rhythm. 04/26/2023: She returns for follow-up. She is complaining of occasional shortness of breath when she is laying down. She is describing orthopnea like episode but does not have any dyspnea or any other symptoms/signs of heart failure. She does snore at night and has daytime fatigue and headaches. She has never had sleep study. 08/30/2023: She returns for follow-up. On last visit referred for echocardiography and sleep study but it appears she did not get both. She is saying that she did not get a call from them. She is saying that she is getting more headaches. She is asking whether Coumadin is the cause and if she can be changed from Coumadin to some other blood thinner. 01/03/24: She is here for f/u. No new symptoms to report. Taking meds. Sleep study has shown AYESHA. Referring her to sleep medicine. 01/15/2025: She is here for follow-up. She continues to have some fatigue during the daytime. She also gets dyspnea with activities. Not physically active. She has diagnosed sleep apnea and recently started using the CPAP. She he is under stress due to some immigration interviews. 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 Gender identity: Female Female Reproductive History Menstrual Age of Menarche: 14 Review of Systems Const Denies chills, Denies fatigue, Denies fever(s), Denies frequent falls, Denies weakness, Denies weight gain and Denies weight loss ENT Denies dizziness Card Denies chest pain, Denies leg edema, Denies lightheadedness, Denies palpitations, Denies dyspnea and Denies dyspnea on exertion Resp Denies cough, Denies dyspnea and Denies dyspnea on exertion GI Denies hematochezia Musc Denies abnormal gait, Denies muscle weakness, Denies numbness, Denies radiating pain into limb and Denies tingling Neuro Denies abnormal gait, Denies dizziness, Denies frequent falls, Denies numbness, Denies tingling and Denies weakness Endo Denies fatigue and Denies palpitations Physical Exam Vital Signs: Last Vital Signs Pulse 67 01/15/25 16:06 BP 100/70 01/15/25 16:06 BMI result Body Mass Index 29.7 GENERAL APPEARANCE: in no acute distress, well developed, well nourished. NECK/THYROID: no carotid bruit, no jugular venous distention. SKIN: no suspicious lesions, warm and dry. HEART: Mechanical 2nd heart sound, grade 1/6 systolic murmur in the aortic area, regular rate and rhythm. LUNGS: clear to auscultation bilaterally. ABDOMEN: normal, bowel sounds present, soft, nontender, nondistended. EXTREMITIES: no clubbing, cyanosis, or edema. PERIPHERAL PULSES: equal. NEUROLOGIC: nonfocal, alert and oriented. PSYCH: mood/affect full range. Office Procedures EKG Details: Sinus rhythm 67 beats per minute, right bundle-branch block, QTC 460 milliseconds. [id number], Complete Assessment & Plan Assessment & Plan (1) AYESHA (obstructive sleep apnea): Code(s): G47.33 - Obstructive sleep apnea (adult) (pediatric) Category: Medical (2) S/P AVR: Code(s): Z95.2 - Presence of prosthetic heart valve Category: Surgical (3) Rheumatic heart disease: Comment: Involvement of aortic and mitral valve. She has aortic valve replacement with mechanical valve. She has mild mitral valve stenosis. Code(s): I09.9 - Rheumatic heart disease, unspecified Category: Medical Plan 49 female with rheumatic HD s/p mechanical AVR on coumadin and baby aspirin. She had ECHO last year which showed normally functioning aortic valve. Clinically not in heart failure and most of her fatigue and dyspnea is related to sleep apnea. She recently started using the CPAP. She is under a lot of stress due to recent immigration issues in the country and is currently undergoing final interview for her immigration. She has concerns about returning to [facility] and whether she will have medications available at that time. I have reassured her that Coumadin and aspirin at common medications and should be we will will in any country and we will be happy to provide her with some scripts and help. Follow-up in 6 months. Thank you for allowing me to participate in the care of your patient. Please feel free to contact me if you have any questions. Coding Level of Care Code Est Pt Level 3 (42657) Complex EM visit Add On G2211 Diagnoses AYESHA (obstructive sleep apnea) G47.33 S/P AVR Z95.2 Rheumatic heart disease I09.9 CPT Codes EKG - CPT: 51097-[id number], Complete ([id number])
--- OUTSIDE RECORDS SUMMARY | 2025-01-15 17:57 | XMS_ITS | Encounter Summary ---
Author Organization [employer] Address [address] [place] [address] Care Team Providers Care Staff Nurse Midwife Name Role Phone Clara Shearer MD Primary Care Provider [phone] Encounter Details Date Type Department Care Team ([facility] st Contact Info) Description 01/22/2024 Orders Only [facility] MEDICINE [address] [place], [place] [phone] Clara Shearer MD [address] [place], [place] [phone] History of mechanical aortic valve replacement Social [...] Description 02/13/2025 3:00 PM EDT Office Visit [facility] OPTOMETRY [address] [place] [address] Kenroy, Meliza, OD [address] [place] [address] 05/08/2025 8:00 AM EDT Office Visit [facility] ADULT DENTAL [address] [place] [address] Olga, Katt [address] [place] [address] documented as of this encounter Visit Diagnoses Diagnosis History of mechanical aortic valve replacement documented in this encounter Additional Health Concerns Assessment Noted Time PHQ-9 Depression Total Score: 0 10/17/19 24 3:45 PM EDT documented as of this encounter Care Teams Staff Nurse Midwife Relationship Specialty Start Date End Date Clara Shearer MD [address] [place] [address] PCP - General Family Medicine 07/24/18 documented as of this encounter
== END 2025-01-15 16:28 | disposition home or self-care (01) ==
PROVIDERS: PCP Family Medicine; Visit Provider Internal Medicine Cardiovascular Disease
DX: G47.33 Obstructive sleep apnea (adult) (pediatric) (principal); Z95.2 Presence of prosthetic heart valve; I09.9 Rheumatic heart disease, unspecified
CPT/HCPCS: 93010; 99213; G2211

== ENCOUNTER → 2025-01-15 15:03 | Outpatient (BNVA) | payer OTHER, SELFPAY | PROVIDERS: PCP Family Medicine; Visit Provider Internal Medicine Cardiovascular Disease | DX: G47.33 Obstructive sleep apnea (adult) (pediatric) (principal); Z95.2 Presence of prosthetic heart valve; I09.9 Rheumatic heart disease, unspecified | CPT/HCPCS: 93005; 99212 ==

== ENCOUNTER 2025-02-07 15:21 | Outpatient (AMB) | payer OTHER, SELFPAY ==
--- OUTSIDE RECORDS SUMMARY | 2025-02-07 15:23 | XMS_ITS | Encounter Summary ---
Author Organization [facility] Address [address] [place] [phone] Phone Care Team Providers Care Build Automation Engineer Name Role Phone Clara Shearer MD Primary Care Provider [phone] Encounter Details Date Type Department Care Team (Late st Contact Info) Description 12/04/2022 Procedure Pass [facility], Ct Scan - [address] [address] Social History Tobacco Use Types Packs/Day Years Used Date Smoking Tobacco: Never Smokeless Tobacco: Never Alcohol Use Standard Drinks/Week Comments No 0 (1 standard drink = 0.6 oz pur e alcohol) Education Answer Date Recorded Are you interested in more education? Not on nimisha e 11/18/2022 Are you concerned about learning? Not on file 11/18/2022 No 11/18/2022 No 11/18/2022 Comments No Sex and Gender Information Value Date Recorded Sex Assigned at Female 11/09/2020 8:05 PM EDT Legal Sex Female 9:26 PM EDT Gender Identity Female 11/09/2020 8:05 PM EDT Sexual Orientation Straight 11/09/2020 8: 05 PM EDT documented as of this encounter Plan of Treatment Not on file documented as of this encounter Visit Diagnoses Not on filedocumented in this encounter Additional Health Concerns Infection Onset Date Last Indicated Resolved Time CoV-Risk 06/19/2023 06/19/2023 06/30/2023 1:24 AM EST documented as of this encounter Care Teams Build Automation Engineer Relationship Specialty Start Date End Date Clara Shearer MD [address] [place] [address] PCP - General Family Medicine 02/16/22 documented as of this encounter Additional Source Comments The information contained in this document represents components of the legal health record. It is not the complete legal health record.[facility]
--- OUTSIDE RECORDS SUMMARY | 2025-02-07 15:23 | XMS_ITS | Clinical Summary ---
Author Organization [facility] Address [address] [place] [address] Care Team Providers Care Aluminum Pool Installer Name Role Phone Manfred Clara Primary Care Provider [phone] Allergies No known active allergies Medications aspirin [...] Cervical Cancer Screening 12/18/2023 Pap Smear 12/18/2023 12/17/2020 COVID-19 Vaccine (3 - 2023-2 5 season) 2024 11/06/2020, 10/09/2020 Alcohol/Substance Use Screening 07/24/2024 Influenza Vaccine (#1) 2025 RSV Vaccine (60+ years old a nd patients) (1 - 1-dose 75+ series) 02/19/2052 Pneumococcal Vaccine: Pediatric (0-5 Years) and At-Risk Patients (6-50 Years) Aged Out No longer eligible based on patient's age to complete this topic Procedures * Due to [facility] law, this organization might not be sharing negative HIV tests. Procedure Name Priority Date/Time Associated Diagnosis Comments PAP Routine 12/17/2020 2:37 PM EDT Hematometra from Last 3 Months or Most Recently Relevant to Health Maintenance Results * Due to [facility] law, this organization might not be sharing negative HIV tests. * Pap (12/17/2020 2:37 PM EDT) Specimen Adequacy Satisfactory for evaluation [facility] MANUAL 1 5:02 PM EDT [facility] Pathologist Cytology Interpretation Negative for intraepithelial lesion or malignancy. [facility] MANUAL 1 5:02 PM EDT [facility] at 1702 EDT Comment:This is the result o f a morphological screening test with an inherent possibility of a false negative interpretation. Programming Coordinator Statement This Pap test was examined by the [facility], [employer], [place], [place]. This Pap test was examined in accordance with the [facility] Cytopathology Laboratory written policy, which incorporates all CLIA mandates. Screening guidelines can be found in Am J Clin Pathol 2012;137:516-542. We endorse the practice guidelines developed by ASCCP and published in the Journal Lower Genital Tract Disease 17(5):S1-S27 (2013). [facility] MANUAL 1 5:02 PM EDT [facility] [employer] [facility] Clinical History Hematometra [facility] MANUAL 1 5:02 PM EDT [facility] Resulting Agency Case was signed out at [facility], Department of Pathology, [employer] 3 CLIA [id number] [facility] MANUAL 5:02 PM EDT [facility] [employer] [facility] Report Header Gynecologic Cytology Report Case: [id number] Authorizing Provider: Susan Girard Collected: 12/17/2020 [id number] Ordering Location: [facility] Received: 12/17/2020 1626 [facility] Obstetrics and Gynecology First Screen: Sissy Dooley Specimen: Screening ThinPrep Pap, Cervix/Endocervix 5:02 PM EDT [facility] Brushing Cervix uteri structure / Unknown Non-Blood Collection / Unknown 12/17/2020 2:37 PM EDT 12/17/2020 4:26 PM EDT us Susan Girard INFORMATION MANAGEMENT MANAGER LAB PATHOLOGY/CYTOLOGY ORDERABL ES Final Result [facility] [address] [place] [id number], from Last 3 Months or Most Recently Relevant to Health Maintenance Insurance [facility]/FREE CARE [facility] Care Teams Aluminum Pool Installer Relationship Specialty Start Date End Date Clara Shearer [address] [place] [address] PCP - General Family Medicine 05/26/20
[2025-02-07 15:33] VITALS: PULSE 75; O2SAT 97
--- NOTE | 2025-02-07 15:33 | MHC.OFFVIS ---
Vital Signs 02/07/25 15:33 Height 4 ft 11 in Pulse 75 Pulse Source Pulse Oximeter Pulse Oximetry (%) 97 Oxygen Delivery Method Room Air Intake Visit Reasons: 3mon follow-up Intake Note: Patient presents follow up AYESHA/Migraine. Compliance in chart(days, >=4hrs-27%, average usage-1hr 49min, Med pressure-5.3, Med leaks-7.7, AHI-0.5). Patient states migraines are better hasnt get any in 3 weeks. Brake Operator Required: Yes Brake Operator Language: Ocean Fishing Guide Services: Brake Operator Present Brake Operator Name: Uli [id number] Information Interpreted: non-clinical & clinical Allergies peach Allergy (Severe, Verified 02/07/25 15:38) Angioedema HPI Comments Details: 49 year old French speaking female presents for evaluation of sleep and chronic headaches. Brake Operator on IPAD helps with history. PSG is c/w mild ayesha AHI was 11, REM AHI is 28/hr and oxygen Mario Alberto at 87%. MRI explained to patient LBP L5/S1 disc herniation and r. hip pain, had 7 weeks of PT, and wears SI Joint belt. She has h/o Rheumatic Fever and AVR in December 2023 managed by her pcp. The migraines have decreased to 1-2 per week since starting Topiramate 50mg daily chronic prevention and Sumatriptan PRN acute prevention.She has chronic l. sided neck pain, worse with movement, when she puts up her hair in a bun it gets better. She applies a topical tylenol cream it improves. She goes to bed at 11:30 and wakes up at 6am, she has more energy now. The machine is running out of order in 6 hours and she has to wake up to fill the machine with water, will f/u with [facility] re: machine. She still has pain, worse with prolonged standing and improved since starting PT. She notices lumbar pain with numbness and tingling in r. side of hip radiating down to the leg and into digits 1,and 2 on r. foot. She c/o RLS with tingling and numbness in both feet which keeps her up at night. She move her feet, and wakes up multiple times. She c/o migraines with aura 2-3x a week, and can be continuous, vision gets dark. The migraines occur 4-5 x a week, if she doesn't sleep well they evolve into a migraine always start with auras. Migraine with Aura and Prodrome: She feels like there is light coming out of her eyes, with blurry vision and flashes in her peripheral vision, photo/phono phobia, colors like white and black clothing intensify the pain. She has a pulsating sensation with throbbing pressure that begins at the fronto-temporal area bilaterally and migrates to the nape of her neck as if she is wearing a tight cap, she pulls her hair out and this helps to relive the pain a little. She gets dizzy, loses her balance, has vertigo as if the room is spinning at least once a month, no nausea or vomiting. Sumatriptan has helped to decrease frequency and severity of pain. She has not been to the ER since starting topiramate along with the triptan. Her mood, anxious, she is overwhelmed by her legal situation and possible deportation to [facility]. She has lived here for 23 years, has a SS card, working permit, a job, and her entire livelihood including family is here and this is the biggest challenge in her life. Her diet and memory are stable. 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 Gender identity: Female Female Reproductive History Menstrual Age of Menarche: 14 Physical Exam Vital Signs: Last Vital Signs Pulse 75 02/07/25 15:33 Pulse Ox 97 02/07/25 15:33 Oxygen Delivery Method Room Air 02/07/25 15:33 Const General: cooperative and tired appearing Nutritional Appearance: overweight Orientation/consciousness: patient oriented x3 Eyes Sclerae: scleral abnormal (scleral injection) bilateral Pupils: Equal, round and reactive pupils present Resp Effort & Inspection: normal respiratory effort Neuro General: patient oriented x3 and moves all extremities Cranial nerves: Yes Equal, round and reactive pupils present, Yes Normal accommodation reflex present, Yes Normal facial strength present, Yes Midline tongue present, Yes Ability to bilaterally rotate head present and Yes Ability to bilaterally elevate shoulders present Gait exam (Neuro): Normal gait present Coordination: [id number] test normal Psych Appearance: well kempt Speech and movement: Other speech and movement exam findings present (Psych) (langauge barrier) Affect: Anxious affect present Attitude: cooperative Thought process: Normal thought process present Thought content: Normal thought content present Results Reviewed Results Reviewed: 2022 XR/XR soft tissue neck IMPRESSION: No evidence of degenerative disc disease of the cervical spine. No fracture or malalignment. No specific source of pain is identified. She has had her cpap for about a month and is acclimating to nightly use. AYESHA Compliance Report 10/2024 to 01/2025 days 27% usage >4 hours 1.49 min 5.3 median press leaks 7.7 and AHI 0.5/hr Assessment & Plan Assessment & Plan (1) AYESHA (obstructive sleep apnea): Comment: continue cpap compliance Code(s): G47.33 - Obstructive sleep apnea (adult) (pediatric) Category: Medical (2) Migraine aura occurring with and without headache: Comment: topiramate with sumatriptan Code(s): G43.109 - Migraine with aura, not intractable, without status migrainosus Category: Medical (3) Itchy, watery, and red eye: Comment: f/u with pcp Code(s): H57.9 - Unspecified disorder of eye and adnexa Category: Medical (4) Lumbar disc herniation: Comment: Reviewed MRI with patient and emphasized use of SI belt. Code(s): M51.26 - Other intervertebral disc displacement, lumbar region Category: Medical (5) Fatigue due to sleep pattern disturbance: Comment: sleep hygiene reviewed with patient and sleep aid was offered today. Code(s): R53.83 - Other fatigue; G47.9 - Sleep disorder, unspecified Category: Medical Plan AYESHA, continue use of cpap and >4 hours daily at night. Wash mask, hoses and change filters, fill reservoir with water as needed. Call resmed and get machine trouble shoot- or replaced if water continues to run out too quickly. Migraines Episodic migraine prevention for acute migraines continue Sumatriptan increased to 100mg PO at onset of migraine, may take one additional tablet with in 2 hours if migraine does not abort. Do not take more than 200mg in a 24 hour period. Chronic migraines maintenance medication Topiramate increased from 25mg to 50mg PO daily at bedtime. CTscan if migraines have not improved and continues to have vision difficulties after being evaluated by her eye doctor. Labs to r/o fatigue CBC/CMP/ TSH / B12/ Homocysteine Ferritin, MMA, cholesterol, A1c. Patient Instructions: Sleep Hygiene provided: set a scheduled bedtime and wake time to help regulate the circadian rhythm and balance the release of pituitary hormones. Sleep in a dark room, temperatures below 68 degrees, and no devices n bed. Limit caffeinated products 6 hours prior to bed, and limit fluids 2-4 hours prior to bed. Gentle night yoga, diffusing essential oils, and playing soft music can be relaxing. Labs pending to r/o fatigue. Continue Cpap use >4 hours nightly. Migraines Chronic topiramate 50mg daily at bedtime. Acute headaches Sumatriptain 50mg and may take another tablet if headache does not abort w/in 2 hours of the first table. Do not exceed 200mg in a 24 hour period. Call the office with any questions and concerns. Coding Level of Care Code Est Pt Level 4 (11680) Diagnoses AYESHA (obstructive sleep apnea) G47.33 Migraine aura occurring with and without headache G43.109 Itchy, watery, and red eye H57.9 Lumbar disc herniation M51.26 Fatigue due to sleep pattern disturbance R53.83; G47.9 Time Spent (min) 30 Comment migraines improved, sleep?
== END 2025-02-10 10:56 | disposition home or self-care (01) ==
LOC: HO.HSMS 15:21
PROVIDERS: PCP Family Medicine; Visit Provider Physician Assistant Medical
DX: G47.33 Obstructive sleep apnea (adult) (pediatric) (principal); G43.109 Migraine with aura, not intractable, without status migrainosus; H57.9 Unspecified disorder of eye and adnexa; M51.26 Other intervertebral disc displacement, lumbar region; R53.83 Other fatigue; G47.9 Sleep disorder, unspecified
CPT/HCPCS: 99214

== ENCOUNTER → 2025-02-07 15:21 | Outpatient (BNVA) | payer OTHER, SELFPAY | PROVIDERS: PCP Family Medicine; Visit Provider Physician Assistant Medical | DX: G47.33 Obstructive sleep apnea (adult) (pediatric) (principal); G47.9 Sleep disorder, unspecified; R53.83 Other fatigue; G43.109 Migraine with aura, not intractable, without status migrainosus; H57.9 Unspecified disorder of eye and adnexa; M51.26 Other intervertebral disc displacement, lumbar region | CPT/HCPCS: 99212 ==

== ENCOUNTER 2025-02-13 16:09 | Outpatient (REF) | payer OTHER, SELFPAY ==
--- OUTSIDE RECORDS SUMMARY | 2025-02-13 16:11 | XMS_ITS | Clinical Summary ---
Author Organization [facility] Address [address] [place] [address] Care Team Providers Care Automatic Chief Name Role Phone Manfred Clara Primary Care Provider [phone] Allergies No known active allergies Medications aspirin [...] complete this topic Procedures * Due to [facility] law, this organization might not be sharing negative HIV tests. Procedure Name Priority Date/Time Associated Diagnosis Comments PAP Routine 12/17/2020 2:37 PM EDT Hematometra from Last 3 Months or Most Recently Relevant to Health Maintenance Results * Due to [facility] law, this organization might not be sharing negative HIV tests. * Pap (12/17/2020 2:37 PM EDT) Specimen Adequacy Satisfactory for evaluation [facility] MANUAL 1 5:02 PM EDT [facility] [employer] [facility] Pathologist Cytology Interpretation Negative for intraepithelial lesion or malignancy. [facility] MANUAL 1 5:02 PM EDT [facility] [employer] [facility] at 1702 EDT Comment:This is the result o f a morphological screening test with an inherent possibility of a false negative interpretation. Phthalic Acid Purifier Statement This Pap test was examined by the ThinPrep Imaging System, [employer], [place], [place]. This Pap test was examined in accordance with the [facility] Cytopathology Laboratory written policy, which incorporates all CLIA mandates. Screening guidelines can be found in Am J Clin Pathol 2012;137:516-542. We endorse the practice guidelines developed by ASCCP and published in the Journal Lower Genital Tract Disease 17(5):S1-S27 (2013). [facility] MANUAL 1 5:02 PM EDT [facility]ablesOH[facility] [place] [facility] Clinical History Hematometra [facility] MANUAL 1 5:02 PM EDT [facility] RenewablesC[facility] [employer] [facility] Resulting Agency Case was signed out at [facility], Department of Pathology, [employer] 3 CLIA [id number] [facility] MANUAL 5:02 PM EDT [facility] [employer] [facility] Report Header Gynecologic Cytology Report Case: [id number] Authorizing Provider: Susan Girard Collected: 12/17/2020 1717 Ordering Location: [facility] Received: 12/17/2020 1626 [facility] Obstetrics and Gynecology First Screen: Sissy Dooley Specimen: Screening ThinPrep Pap, Cervix/Endocervix 5:02 PM EDT [facility] [facility] Brushing Cervix uteri structure / Unknown Non-Blood Collection / Unknown 12/17/2020 2:37 PM EDT 12/17/2020 4:26 PM EDT us Susan Girard [facility] PATHOLOGY/CYTOLOGY ORDERABL ES Final Result [facility] [address] [place] [id number], from Last 3 Months or Most Recently Relevant to Health Maintenance Insurance [facility]/FREE CARE [facility] Care Teams Automatic Chief Relationship Specialty Start Date End Date Clara Shearer [address] [place] [address] PCP - General Family Medicine 05/26/20
--- OUTSIDE RECORDS SUMMARY | 2025-02-13 16:11 | XMS_ITS | Encounter Summary ---
Author Organization [facility] Address [address] [place] [phone] Phone Care Team Providers Care Control Area Operator Name Role Phone Unknown, Unknown Primary Care Provider Clara Thompson MD Primary Care Provider [phone] Clara Shearer MD Primary Care Provider Encounter Details Date Type Department Care Team (Late st Contact Info) Description 02/24/2018 Procedure Pass [facility], Ct Scan - [address] [address] Social History Tobacco Use Types Packs/Day Years Used Date Smoking Tobacco: Never Alcohol Use Standard Drinks/Week Comments No 0 (1 standard drink = 0.6 oz pur e alcohol) Comments Unknown Sex and Gender Information Value [...] documented as of this encounter Care Teams Control Area Operator Relationship Specialty Start Date End Date Unknown, Unknown, PCP - General 02/24/18 11/09/20 Clara Shearer MD [address] [place] [address] PCP - General Family Medicine 11/10/20 02/15/22 Clara Shearer MD [address] [place] [address] PCP - General Family Medicine 02/16/22 documented as of this encounter Additional Source Comments The information contained in this document represents components of the legal health record. It is not the complete legal health record.[facility]
--- OUTSIDE RECORDS SUMMARY | 2025-02-13 16:11 | XMS_ITS | Encounter Summary ---
Author Organization [employer] Address [address] [facility] [address] [place] [address] Care Team Providers Care Blankbook Forwarder Name Role Phone Clara Shearer MD Primary Care Provider [phone] Encounter Details Date Type Department Care Team ([facility] st Contact Info) Description 01/22/2024 Orders Only [facility] MEDICINE [address] [place], [place] [phone] Clara Shearer MD [address] [place], [place] [phone] History of mechanical aortic valve replacement Social [...] Care Team (Late st Contact Info) Description 04/01/2025 3:45 PM EDT Office Visit [facility] MEDICINE [address] [place], [place] [phone] Clara Shearer MD [address] [place] [address] 05/08/2025 8:00 AM EDT Office Visit [facility] ADULT DENTAL [address] [place], [place] [phone] Katt Espinoza [address] [place] [address] documented as of this encounter Visit Diagnoses Diagnosis History of mechanical aortic valve replacement documented in this encounter Additional Health Concerns Assessment Noted Time PHQ-9 Depression Total Score: 0 10/17/19 24 3:45 PM EDT documented as of this encounter Care Teams Blankbook Forwarder Relationship Specialty Start Date End Date Clara Shearer MD [address] [place], [place] [phone] PCP - General Family Medicine 07/24/18 documented as of this encounter
[2025-02-13 17:48] LABS: Appearance Urine Clear; Glucose Urine UA Negative (Negative); PH 6.0 (5.0-9.0); Specific Gravity - Urine 1.020 (1.005-1.025); UMIC TRIGGER UACC YES
[2025-02-13 17:59] LABS: Microalbum/Creatinine Ratio Ur 8.3 ug/mg cr (<30)
== END 2025-02-13 16:10 | disposition home or self-care (01) ==
LOC: HO.HHCL 16:09
PROVIDERS: PCP Family Medicine; Visit Provider Family Medicine
DX: R73.03 Prediabetes (principal); M54.9 Dorsalgia, unspecified; G89.29 Other chronic pain
CPT/HCPCS: 81001; 82043; 82570

== ENCOUNTER 2025-02-18 14:26 | Outpatient (REF) | payer OTHER, SELFPAY ==
--- OUTSIDE RECORDS SUMMARY | 2025-02-18 15:06 | XMS_ITS | Encounter Summary ---
Author Organization [email or web address] Address [address] [facility] 7t [place] [address] Care Team Providers Care Debug Technician Name Role Phone Clara Shearer MD Primary Care Provider Encounter Details Date Type Department Care Team ([facility] st Contact Info) Description 01/22/2024 Orders Only [facility] MEDICINE [address] [place], [place] [phone] Clara Shearer MD [address] [place], [place] [phone] History of mechanical aortic valve replacement Social [...] Description 04/01/2025 3:45 PM EDT Office Visit [facility] MEDICINE [address] [place], [place] [phone] Clara Shearer MD [address] [place] [address] 05/08/2025 8:00 AM EDT Office Visit [facility] ADULT DENTAL [address] [place], [place] [phone] Katt Espinoza [address] [place] [address] documented as of this encounter Visit Diagnoses Diagnosis History of mechanical aortic valve replacement documented in this encounter Additional Health Concerns Assessment Noted Time PHQ-9 Depression Total Score: 0 10/17/19 24 3:45 PM EDT documented as of this encounter Care Teams Debug Technician Relationship Specialty Start Date End Date Clara Shearer MD [address] [place], [place] [phone] PCP - General Family Medicine 07/24/18 documented as of this encounter
--- OUTSIDE RECORDS SUMMARY | 2025-02-18 15:06 | XMS_ITS | Clinical Summary ---
Author Organization [facility] Address [address] [place] [address] Care Team Providers Care Security Vehicle Patrol Officer Name Role Phone Manfred Clara Primary Care Provider [phone] Allergies No known active allergies Medications aspirin [...] complete this topic Procedures * Due to [facility] law, this organization might not be sharing negative HIV tests. Procedure Name Priority Date/Time Associated Diagnosis Comments PAP Routine 12/17/2020 2:37 PM EDT Hematometra from Last 3 Months or Most Recently Relevant to Health Maintenance Results * Due to [facility] law, this organization might not be sharing negative HIV tests. * Pap (12/17/2020 2:37 PM EDT) Specimen Adequacy Satisfactory for evaluation [facility] MANUAL 1 5:02 PM EDT [facility] [employer] [facility] Pathologist Cytology Interpretation Negative for intraepithelial lesion or malignancy. [facility] MANUAL 1 5:02 PM EDT [facility] [employer] [facility] at 1702 EDT Comment:This is the result o f a morphological screening test with an inherent possibility of a false negative interpretation. Ground Support Equipment Fitter Statement This Pap test was examined by the ThinPrep Imaging System, [employer], [place], [place]. This Pap test was examined in accordance with the [facility] Cytopathology Laboratory written policy, which incorporates all CLIA mandates. Screening guidelines can be found in Am J Clin Pathol 2012;137:516-542. We endorse the practice guidelines developed by ASCCP and published in the Journal Lower Genital Tract Disease 17(5):S1-S27 (2013). [facility] MANUAL 1 5:02 PM EDT [facility]ITAL[facility]igsTimePROM[facility] Investor [employer] [facility] Clinical History Hematometra [facility] MANUAL 1 5:02 PM EDT [facility] [employer] [facility] Resulting Agency Case was signed out at [facility], Department of Pathology, Biotech 3 CLIA [id number] [facility] MANUAL 5:02 PM EDT [facility] [employer] [facility] Report Header Gynecologic Cytology Report Case: [id number] Authorizing Provider: Susan Girard Collected: 12/17/2020 9167 Ordering Location: [facility] Received: 12/17/2020 1626 [facility] Obstetrics and Gynecology First Screen: Sissy Dooley Specimen: Screening ThinPrep Pap, Cervix/Endocervix 5:02 PM EDT [employer] [facility] Brushing Cervix uteri structure / Unknown Non-Blood Collection / Unknown 12/17/2020 2:37 PM EDT 12/17/2020 4:26 PM EDT us Susan Girard [facility] PATHOLOGY/CYTOLOGY ORDERABL ES Final Result [employer] [facility] [address] [place] [id number], from Last 3 Months or Most Recently Relevant to Health Maintenance Insurance [facility]/FREE CARE [facility] Care Teams Security Vehicle Patrol Officer Relationship Specialty Start Date End Date Clara Shearer [address] [place] [address] PCP - General Family Medicine 05/26/20
--- OUTSIDE RECORDS SUMMARY | 2025-02-18 15:06 | XMS_ITS | Encounter Summary ---
Author Organization [facility] Address [address] [place] [phone] Phone Care Team Providers Care Funeral Car Chauffeur Name Role Phone Unknown, Unknown Primary Care Provider Clara Thompson MD Primary Care Provider Clara Shearer MD Primary Care Provider [phone] Encounter Details Date Type Department Care Team (Late st Contact Info) Description 02/24/2018 Procedure Pass [facility], Ct Scan - [address] [address] Social History Tobacco Use Types Packs/Day Years [...] documented as of this encounter Care Teams Funeral Car Chauffeur Relationship Specialty Start Date End Date Unknown, Unknown, PCP - General 02/24/18 11/09/20 Clara Shearer MD [address] [place] [address] PCP - General Family Medicine 11/10/20 02/15/22 Clara Shearer MD [address] [place] [address] PCP - General Family Medicine 02/16/22 documented as of this encounter Additional Source Comments The information contained in this document represents components of the legal health record. It is not the complete legal health record.[facility]
[2025-02-18 15:15] LABS: Hematocrit 38.8 % (37.0-47.0); Hemoglobin 13.3 g/dl (12.0-16.0); Mean Corpuscular HGB Conc 34.3 g/dl (31.0-35.0); Mean Corpuscular Hemoglobin 30.4 pg (27.0-33.0); Mean Corpuscular Volume 88.8 fL (80.0-98.0); NRBC Abs Auto 0.000 X10*3/uL (0.0-0.012); NRBC Pct Auto 0.0 /100WBC (0.0-0.2); Platelet Count 256 X10*3/uL (160-400); Red Blood Count 4.37 X10*6/uL (4.20-5.50); White Blood Count 5.6 X10*3/uL (4.8-10.8)
[2025-02-18 15:19] LABS: Appearance Urine Clear; Glucose Urine UA Negative (Negative); PH 5.5 (5.0-9.0); Specific Gravity - Urine 1.015 (1.005-1.025); UMIC TRIGGER UACC YES
[2025-02-18 15:28] LABS: Hemoglobin A1C 136.4066 umol/L; Total Hemoglobin (HGBA1C) 3488.8462 umol/L
[2025-02-18 16:01] LABS: Alanine Aminotransferase 41 U/L (0-31); Albumin Level 4.2 g/dL (3.5-5.0); Alkaline Phosphatase 76 U/L (39-117); Anion Gap 11 (12-20); Aspartate Amino Transferase 28 U/L (5-31); Blood Urea Nitrogen 13 mg/dL (9-16); Calcium 8.8 mg/dL (8.4-10.2); Carbon Dioxide 23 mmol/L (22-29); Chloride 108 mmol/L (96-108); Cholesterol 197 mg/dL (<200); Estimated Glomerular Filt Rate > 60; HDL Cholesterol 52 mg/dL (>40); Potassium 3.6 mmol/L (3.3-5.1); Sodium 138 mmol/L (135-145); Total Protein 7.1 g/dL (6.5-8.0); Triglycerides 143 mg/dL (<150)
[2025-02-18 16:16] LABS: Ferritin 93 ng/mL (10-250)
[2025-02-18 16:28] LABS: Folate 11.2 ng/mL (> or = 4.0); Vitamin B12 637 pg/mL (200-900)
[2025-02-18 17:30] LABS: Reflex LDLD? No
== END 2025-02-18 14:27 | disposition home or self-care (01) ==
LOC: HO.LAB 14:26
PROVIDERS: PCP Family Medicine; Visit Provider Physician Assistant Medical
DX: R31.9 Hematuria, unspecified (principal); R53.83 Other fatigue; G47.9 Sleep disorder, unspecified; Z79.01 Long term (current) use of anticoagulants
CPT/HCPCS: 36415; 80053; 80061; 81001; 82306; 82607; 82728; 82746; 83036; 83090; 83921; 84443; 85027; 85610; 99211

== ENCOUNTER 2025-02-18 14:55 | Outpatient (AMB) | payer OTHER, SELFPAY ==
[2025-02-18 15:02] LABS: Prothrombin Time Whole Bld POC 24.8 sec (11.1-13.5); ~PT, ~INR - Anti Coag Clinic 2.1 (0.9-1.1)
--- NOTE | 2025-02-18 16:13 | MHC.OFFVISCO ---
Intake Intake Visit Reasons: Anticoagulation Allergies peach Allergy (Severe, Verified 02/18/25 14:57) Angioedema Medication List - Last Reconciled 02/18/25 by Silvia Paredes RN ascorbic acid (vitamin C) 500 mg PO BID aspirin (Adult Aspirin Regimen) 81 mg PO DAILY 90 days cetirizine 10 mg PO DAILY cholecalciferol (vitamin D3) 50 mcg PO DAILY cyclobenzaprine 10 mg PO TID hydrocortisone 2.5% (Proctosol HC) 1 appl MI BID-QID PRN multivitamin (One Daily Multivitamin tablet) 1 tab PO DAILY olopatadine 0.2% (Pataday Once Daily Relief) 1 drp ophthalmic (eye) DAILY PRN 30 days MDD as needed omeprazole 20 mg PO DAILY PRN sumatriptan succinate 100 mg PO .prn MDD 200mg tolterodine ER 4 mg PO DAILY PRN topiramate 50 mg PO DAILY PRN warfarin See Protocol orally 6mg daily; Nursing Note INR: 2.1 in therapeutic range Medications and supplements reviewed No changes in health, diet, medications, or supplements, Denies any signs and symptoms of bleeding or bruising or clotting. Bleeding, bruising, clotting discussed Nutritional guidance given Dose: 6mg daily F/U INR: 4 weeks Patient verbalizes understanding of instructions given Anti-Coag Initial Assessment Social Hx Patient Tobacco Use Status: Never used Tobacco alcohol intake: never Alcohol intake frequency: does not drink Coding Level of Care Code Est Patient Level 1 Diagnoses Current use of anticoagulant therapy Z79.01 Results AMB INR Fingerstick AMB INR Fingerstick 2.1 Last Edit by Silvia Paredes RN on 02/18/25 15:00 interface delay Assessment & Plan Assessment & Plan (1) Current use of anticoagulant therapy: Comment: Continue Coumadin. Code(s): Z79.01 - [facility] (current) use of anticoagulants Category: Medical
== END 2025-02-18 16:12 | disposition home or self-care (01) ==
LOC: HO.ACS 14:55
PROVIDERS: PCP Family Medicine; Visit Provider Internal Medicine Medical Oncology
DX: Z79.01 Long term (current) use of anticoagulants (principal)

== ENCOUNTER 2025-03-20 15:01 | Outpatient (AMB) | payer OTHER, SELFPAY ==
[2025-03-20 15:06] LABS: Prothrombin Time Whole Bld POC 38.8 sec (11.1-13.5); ~PT, ~INR - Anti Coag Clinic 3.2 (0.9-1.1)
--- NOTE | 2025-03-20 15:10 | MHC.OFFVISCO ---
Intake Intake Visit Reasons: Anticoagulation Allergies peach Allergy (Severe, Verified 03/20/25 15:02) Angioedema Medication List - Last Reconciled 03/20/25 by Silvia Paredes RN ascorbic acid (vitamin C) 500 mg PO BID aspirin (Adult Aspirin Regimen) 81 mg PO DAILY 90 days cetirizine 10 mg PO DAILY cholecalciferol (vitamin D3) 50 mcg PO DAILY cyclobenzaprine 10 mg PO TID hydrocortisone 2.5% (Proctosol HC) 1 appl ND BID-QID PRN multivitamin (One Daily Multivitamin tablet) 1 tab PO DAILY olopatadine 0.2% (Pataday Once Daily Relief) 1 drp ophthalmic (eye) DAILY PRN 30 days MDD as needed omeprazole 20 mg PO DAILY PRN sumatriptan succinate 100 mg PO .prn MDD 200mg tolterodine ER 4 mg PO DAILY PRN topiramate 50 mg PO DAILY PRN warfarin See Protocol orally 6mg daily; Nursing Note INR: 3.2 out of therapeutic range of 2-3 Medications and supplements reviewed No changes in health, diet, medications, or supplements, Denies any signs and symptoms of bleeding or bruising or clotting. Bleeding, bruising, clotting discussed Nutritional guidance given to have a serving of greens today Dose: 6mg daily F/U INR: 4 weeks Patient verbalizes understanding of instructions given Anti-Coag Initial Assessment Social Hx Patient Tobacco Use Status: Never used Tobacco alcohol intake: never Alcohol intake frequency: does not drink Coding Level of Care Code Est Patient Level 1 Diagnoses Current use of anticoagulant therapy Z79.01 Results AMB INR Fingerstick AMB INR Fingerstick 3.2 Last Edit by Silvia Paredes RN on 03/20/25 15:07 interface delay Assessment & Plan Assessment & Plan (1) Current use of anticoagulant therapy: Comment: Continue Coumadin. Code(s): Z79.01 - assisted (current) use of anticoagulants Category: Medical
--- OUTSIDE RECORDS SUMMARY | 2025-03-20 15:40 | XMS_ITS | Clinical Summary ---
Author Organization [facility] Address [address] [place] [address] Care Team Providers Care Cut Out Machine Operator Name Role Phone Manfred Clara Primary Care Provider [phone] Allergies No known active allergies Medications aspirin [...] / Fit Test 1977 HIV Screening 1977 Sigmoidoscopy 1977 Hepatitis B Vaccines (1 of 3 - 19+ 3-dose series) 02/19/1996 DTaP,Tdap,and Td Vaccines (1 - Tdap) 1999 COVID-19 Vaccine (3 - 2023-2 5 season) 2024 11/06/2020, 10/09/2020 Alcohol/Substance Use Screening 07/24/2024 Influenza Vaccine (#1) 2025 RSV Vaccine (60+ years old and patients) (1 - 1-dose 75+ series) 02/19/2052 Cervical Cancer Screening Discontinued Pap Smear Discontinued 12/17/2020 HPV and Pap Smear Discontinued Pneumococcal Vaccine: Pediatric (0-5 Years) and At-Risk Patients (6-50 Years) Aged Out No longer eligible based on patient's age to complete this topic Procedures * Due to [place] state law, this organization might not be sharing negative HIV tests. Procedure Name Priority Date/Time Associated Diagnosis Comments PAP Routine 12/17/2020 2:37 PM EDT Hematometra from Last 3 Months or Most Recently Relevant to Health Maintenance Results * Due to [facility] law, this organization might not be sharing negative HIV tests. * Pap (12/17/2020 2:37 PM EDT) Specimen Adequacy Satisfactory for evaluation [facility] MANUAL 1 5:02 PM EDT [facility] Pathologist Cytology Interpretation Negative for intraepithelial lesion or malignancy. [facility] MANUAL 1 5:02 PM EDT [facility] SYSTEM[facility] at 1702 EDT Comment:This is the result o f a morphological screening test with an inherent possibility of a false negative interpretation. Gang Knife Fish Chopper Statement This Pap test was examined by the [facility] System, [employer], [place], [place]. This Pap test was examined in accordance with the [facility] Cytopathology Laboratory written policy, which incorporates all CLIA mandates. Screening guidelines can be found in Am J Clin Pathol 2012;137:516-542. We endorse the practice guidelines developed by ASCCP and published in the Journal Lower Genital Tract Disease 17(5):S1-S27 (2013). [place] MANUAL 1 5:02 PM EDT [employer] [facility] Clinical History Hematometra ASS MANUAL 1 5:02 PM EDT [facility] SYSTEMVarxity Development CorpPREMIER [facility] [employer] [facility] Resulting Agency Case was signed out at [facility], Department of Pathology, [employer] 3 CLIA [id number] [facility] MANUAL 1 5:02 PM EDT [facility] SYSTEMRadiumOneMI [employer] [facility] Report Header Gynecologic Cytology Report Case: [id number] Authorizing Provider: Susan Girard Collected: 12/17/2020 2277 Ordering Location: [facility] Received: 12/17/2020 1626 [facility] Obstetrics and Gynecology First Screen: Sissy Dooley Specimen: Screening ThinPrep Pap, Cervix/Endocervix 5:02 PM EDT [facility] Brushing Cervix uteri structure / Unknown Non-Blood Collection / Unknown 12/17/2020 2:37 PM EDT 12/17/2020 4:26 PM EDT us Susan Girard [facility] PATHOLOGY/CYTOLOGY ORDERABL ES Final Result [facility] [address] [place] [phone], from Last 3 Months or Most Recently Relevant to Health Maintenance Insurance [facility] [address] [place] [address] Care Teams Cut Out Machine Operator Relationship Specialty Start Date End Date Clara Shearer [address] [place] [address] PCP - General Family Medicine 05/26/20
--- OUTSIDE RECORDS SUMMARY | 2025-03-20 15:40 | XMS_ITS | Clinical Summary ---
Author Organization [facility] Address [address] [place] [address] Phone Care Team Providers Care Mailroom Coordinator Name Role Phone Clara Shearer MD Primary Care Provider Allergies No known active allergies Medications cholecalciferol (VITAMIN D3) 2,000 unit capsule Take by mouth daily. 2 Active FEROSUL 325 mg (65 mg iron) tablet Take 1 tablet by mouth 2 (two) times a day. 2 Active PROCTOZONE-HC 2.5 % rectal cream APPLY RECTALLY 2 TO 4 TIMES DAILY NEEDED FOR HEMORRHOIDS 2 Active MULTIVITAMIN tablet Take 1 tablet by mouth daily. with food 2 Active warfarin (COUMADIN) 2 MG tablet TAKE 1 TABLET TO 3 TABLETS EVERY DAY DIRECTED BY coumadin clinic 2 Active BABY ASPIRIN ORAL Take by mouth daily. Active ascorbic acid, vitamin C, (VITAMIN C) 500 MG tablet Take 1 tablet by mouth 2 (two) times a day. 4 Active SUMAtriptan (IMITREX) 50 MG tablet Take 50 mg by mouth once as needed. 4 Active tolterodine (DETROL LA) 4 MG 24 hr capsuleIndicatio ns:Mixed stress and urge urinary incontinence Take 1 capsule (4 mg total) by mouth daily. 30 capsule 4 4 Active senna (SENOKOT) 8.6 mg tablet Take 2 tablets by mouth nightly at bedtime. 3 Active cetirizine (ZYRTEC) 10 MG tablet Take 10 mg by mouth daily. Active fluoride, sodium, (PREVIDENT 5000 PLUS) 1.1 % Crea Place 1 mg onto teeth. 4 Active cyclobenzaprine (FLEXERIL) 5 MG tablet 5 mg. 4 Active amoxicillin (AMOXIL) 500 MG capsule Take 1 capsule (500 mg total) by mouth 2 (two) times a day for 10 days. 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 - following with [facility], last seen in Feb 2023 - continue working on lifestyle modifications GERD (gastroesophageal reflux disease) Overview (11/28/2023): Last Assessment & Plan: - EGD in Jun - continue omeprazole Prediabetes 03/19/2023 Overview (11/28/2023): Last Assessment & Plan: - history of gestational diabetes - pancreatitis in November 2022, treated with IVF - work on lifestyle modifications Obesity 03/19/2023 Overview (11/28/2023): Last Assessment & Plan: - prediabetes / hx gestational diabetes - continue working on lifestyle modifications Neck pain 03/19/2023 Overview (11/28/2023): Last Assessment & Plan: - X-ray normal in January 2023 - continue stretching exercise, massage, yoga, judicious use of analgesic and muscle relaxant Lipoma of abdominal wall 03/19/2023 Overview (11/28/2023): Last Assessment & Plan: - tender with pressure, otherwise no significant issue - 12/30/22 Size 2.7 x 2.2 x 1.3 cm - evaluated by general surgeon in November 2022 - agreed to continue monitoring size and symptom for now; keep appt with general surgeon Hair loss 03/19/2023 Overview (11/28/2023): Last Assessment & Plan: - avoid irritation; use unscented hypoallergenic hair care product - eat well-balanced diet with adequate protein intake - trial of minoxidil topical - normal thyroid function test Rheumatic heart disease 11/22/2022 Overview (11/28/2023): Last Assessment & Plan: - s/p AVR in Feb 2010 - on warfarin - previously prescribed metoprolol by cultural centre manager; no longer on the medication due to hypotension / dizziness - continue following with cultural centre manager, [facility] Dr Haynes - last TTE in January 2022, mild mitral valve stenosis - continue current treatment plan per cardiology Chronic anticoagulation 11/22/2022 Overview (11/28/2023): Last Assessment & Plan: - indication: Aortic valve replacement - medication warfarin - goal INR 2-3 - followed by [facility] anticoagulation clinic - last INR was 2.0 on 03/01/23 - continue current management plan Abnormal uterine bleeding 11/08/2022 Overview (11/28/2023): Last Assessment & Plan: s/p Endometrial Curetting's, polyp, benign -Pt has follow-up appointment with [facility] -Pt is on Coumadin -Pt requested Hysterectomy, pt will follow-up with [facility] with possible hysterectomy in future Vitamin D deficiency 12/04/2018 Overview (11/28/2023): Last Assessment & Plan: -continue vitamin D supplement History of mechanical aortic valve replacement 0 04/07/2015 Overview (11/28/2023): Last Assessment & Plan: - 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 Mechanical aortic valve functioning normally. Moderate mitral valve stenosis. No regurgitation. - Continue warfarin - Continue SBE prophylaxis. 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 Normally functioning AV. Moderate mitral valve stenosis. - Continue warfarin, per cardiology. - Continue SBE prophylaxis. Varicose veins of lower extremity 07/25/2013 Menometrorrhagia Overview (11/22/2023): Overall, she is doing very well with the Mirena with no significant bleeding. Iron deficiency anemia due to chronic blood loss Encounters Date Type Department Care Team Description 02/23/2025 1:01 AM EDT - 02/23/2025 2:40 AM EDT Emergency [facility] Emergency [address] [place] [address] Discharge Disposition: Home or Self Care 01/09/2025 1:12 PM EDT - 01/09/2025 3:27 PM EDT Emergency [facility] Emergency [address] [place] [address] Discharge Disposition: Home or Self Care from Last 3 Months Immunizations Immunization Administration Dates Next Due Hepatitis B Adult 05/09/2023,12/07/2022,11/09/19 23 Influenza Quadrivalent MDCK Preservative Free IM 07/02/2018,08/02/2016,10/30/2014 Influenza Quadrivalent Prese rvative Free IM 05/09/2023,07/12/2021,07/11/2017,04/07 Influenza, Unspecified Formulation 07/25/2013,,04/06/2011 Pneumococcal conjugate PCV20 03/07/2023 Pneumococcal polysaccharide PPSV23 03/07/2010 Td (adult),2 Lf Tetanus Toxo id, PF, Adsorbed 07/12/2021 Tdap 04/30/2010 Family History Relation Status Comments Brother 1 Alive Brother 2 Alive Brother 3 Alive Father Maternal Grandmother Mother Sister 1 Alive Sister 2 Alive Social History Tobacco Use Types Packs/Day Years Used Date Smoking Tobacco: Never Smokeless Tobacco: Never Tobacco Cessation:Counseling Given: Not Answered Alcohol Use Standard Drinks/Week Comments No 0 (1 standard drink = 0.6 oz pur e alcohol) Education Answer Date Recorded Are you interested in more education? Not on nimisha e 11/18/2022 Are you concerned about learning? Not on file 11/18/2022 No 11/18/2022 No 11/18/2022 Food Answer Date Recorded Within the past 6 months we worried whether our food would run out before we got money to buy more. Never True 01/09/2025 Within the past 6 months the food we bought just didn't last and we didn't have enough money to get more. Never True Residential Stability Answer Date Recor ded What is your housing situation today? I have naye sing 01/09/2025 How many times have you move d in the past 12 months? Zero (I did not move) 01/09/2025 Paying for Meds Answer Date Recorded Do you have trouble paying for medicines? No 01/09/2025 Paying Utility Bills Answer Date Record ed Do you have trouble paying your heating or elect ricity bill? No 01/09/2025 Transportation Answer Date Recorded Has the lack of transportati on kept you from medical appointments or from getting medications? No 01/09/2025 Digital Access Answer Date Recorded No 01/09/2025 Yes 01/09/2025 Do you have reliable internet access at home? Ye s 01/09/2025 Do you have a device (e.g., phone, tablet, computer) with a working camera? Yes 01/09/2025 Intimate Partner Violence Answer Date R ecorded Are you denied basic needs s uch as food, clothing, or medical care? No 02/22/2025 In the past 12 months have y ou been in a relationship with a person who hurts, threatens, or tries to control you? No 02/22/2025 Are you denied basic needs s uch as food, clothing, or medical care? No 02/22/2025 In the past 12 months have y ou been in a relationship with a person who hurts, threatens, or tries to control you? No 02/22/2025 Comments No Sex and Gender Information Value Date Recorded Sex Assigned at Female 11/09/2020 8:05 PM EDT Legal Sex Female 9:26 PM EDT Gender Identity Female 11/09/2020 8:05 PM EDT Sexual Orientation Straight 11/09/2020 8: 05 PM EDT Last Filed Vital Signs Vital Sign Reading Time Taken Comments Blood Pressure 121/82 02/23/2025 12:57 AM EDT Pulse 83 02/23/2025 12:57 AM EDT Temperature 37.6 C (99.7 F) 02/23/2025 12:57 AM EDT Respiratory Rate 16 02/23/2025 12:57 AM EDT Oxygen Saturation 97% 02/23/2025 12:57 AM EDT Inhaled Oxygen Concentration - - Weight 66.8 kg (147 lb 4.8 oz) 02/22/2025 10:52 PM EDT Height 149.9 cm (4' 11 ) 02/22/2025 10:52 PM EDT Body Mass Index 29.75 02/22/2025 10:52 PM EDT Plan of Treatment Health Maintenance Due Date Last Done Comments DEPRESSION SCREENING 1989 HEPATITIS C SCREENING 1995 HIV ONE-TIME SCREENING (18-6 5 YEARS) 1995 PAP SMEAR 1998 COLOGUARD 2022 COLONOSCOPY 2022 COLORECTAL CANCER SCREENING 2022 FIT TEST 2022 FOBT 2022 SIGMOIDOSCOPY 2022 VIRTUAL COLONOSCOPY 2022 COVID-19 VACCINE (2023-2 5 season) 2024 05/09/2023, 11/06/2020, 10/09/2020 MAMMOGRAM 12/23/2024 12/23/2022, 12/23/2022, 09/05/2019 SCREENING FOR DIABETES 10/16/2026 , 11/09/2020 LIPID PANEL 12/16/2027 12/15/2022 IUD 08/19/2030 08/19/2022 Adult Td,Tdap Booster 07/12/2031 07/12/2021 , 04/30/2010 PNEUMOCOCCAL VACCINES (0-49 years) Aged Out 03/07/2023, 03/07/2010 No longer eligible based on patient's age to complete this topic SMOKING STATUS SCREENING (On ce After 26 Yrs) Completed 02/22/2025 HEPATITIS A VACCINES Aged Out No long er eligible based on patient's age to complete this topic HIB VACCINES Aged Out No longer eligi ble based on patient's age to complete this topic MENINGOCOCCAL VACCINES (ACWY) Aged Out No longer eligible based on patient's age to complete this topic MENINGOCOCCAL VACCINES (B) Aged Out N o longer eligible based on patient's age to complete this topic Medical Devices Implanted Type Area Barrel Cap Setter Device Identifier Shelf Expiration Date Model / Serial / Lot Prosthetic Valve Prosthetic Valve Aorta Description:Aortic valve rep lacement in 2009 pt does not know which type of aortic valve was implanted Device Contraceptive 52mg Iud Mirena - Must Order In Multiples Of 5 - [id number] Implanted:Qty: 1 on 08/19/2022 by Ronald Estrada MD at [facility] N/A: Uterus [id number] 06/22/2024 [id number] / / [id number] Procedures Procedure Name Priority Date/Time Associated Diagnosis Comments COVID PANDEMIC RESPIRATORY VIRAL ORDER (PRO) STAT 02/22/2025 11:01 PM EDT RAPID GROUP A STREP SCREEN STAT 02/22/2025 11:01 PM EDT from Last 3 Months Results * (ABNORMAL) Rapid Group A Strep Screen (02/22/2025 11:01 PM EDT) RAPID STREP SCREEN Positive(A ) Negative [facility] Other (Throat) 02/22/2025 11 :01 PM EDT 02/22/2025 11:08 PM EDT Manny Castro MD MICROBIOLOGY - NERAL ORDERABLES Final Result Performing Organization Address [facility] Co de Phone Number [address] [address] * COVID Pandemic Respiratory Viral Order (PRO) (02/22/2025 11:01 PM EDT) Test Ordered Rapid COVID has been ordered [facility] Specimen Source/Description [facility] SARS-CoV 2 (COVID-19) PCR Not Detected Not Detected [facility] Comment: SARS-CoV-2 not detected Negative results do not preclude SARS-CoV-2 infection and should not be used as the sole basis for patient management decisions. Negative results must be combined with clinical observations, patient history, and epidemiological information. Other (Nasopharyngeal swab) 02/22/2025 11:01 PM EDT 02/22/2025 11:08 PM EDT Manny Castro MD BODY FLUIDS AND S TOOLS ORDERABLES Final Result Performing Organization Address [facility] Co de Phone Number [address] [address] from Last 3 Months Insurance [facility] NON NSPG PCP SILVER CLARITY CONNECTORCARE WELLSENSE NON NSPG PCP SILVER CLARITY CONNECTORCARE MUNCYENSE NON NSPG PCP SILVER [employer] CONNECTORCARE WELLSENSE NON NSPG PCP SILVER CLARITY CONNECTORCARE MUNCYENSE NON NSPG PCP SILVER CLARITY CONNECTORCARE [facility] NON NSPG PCP SILVER CLARITY CONNECTORCARE MUNCYENSE NON NSPG PCP SILVER CLARITY CONNECTORCARE [facility] NON NSPG PCP SILVER CLARITY CONNECTORCARE [facility] CL[employer] CONNECTORCARE Advance Directives For more information, please contact: [phone] (9AM - 5PM [facility], Monday-Monday) * Full Code (Latest Code Status on File) Date Activated Date Inactivated Comments 08/19/2022 9:51 AM Question Answer Comments Code Status Confirmed With: Patient Care Teams Mailroom Coordinator Relationship Specialty Start Date End Date Clara Shearer MD [address] [place] [id number] PCP - General Family Medicine 02/16/22 Additional Source Comments The information contained in this document represents components of the legal health record. It is not the complete legal health record.[facility]
--- OUTSIDE RECORDS SUMMARY | 2025-03-20 15:40 | XMS_ITS | Encounter Summary ---
Author Organization [employer] Address [address] [place] [address] [address] [place] [address] Care Team Providers Care Plant Propagator Name Role Phone Clara Shearer MD Primary Care Provider [phone] Reason for Referral * Imaging (Routine) - Authorized Specialty Diagnoses / Procedures Referred By Contac t Referred To Contact Radiology Diagnoses Hematuria, unspecified type Procedures US RENAL BI Clara Shearer MD [address] [place] [address] Phone: tel: fax: [address] Phone: tel: fax: Referral ID Status Reason Start Date Expiration Date V isits Requested Visits Authorized [id number] Authorized 02/21/2025 02/21/2026 1 1 * Imaging (Routine) - Authorized Specialty Diagnoses / Procedures Referred By Contac t Referred To Contact Radiology Diagnoses Hematuria, unspecified type Procedures US BLADDER Clara Shearer MD [address] [place] [address] Phone: tel: fax: [address] Phone: tel: fax: Referral ID Status Reason Start Date Expiration Date V isits Requested Visits Authorized [id number] Authorized 02/21/2025 02/21/2026 1 1 Encounter Details Date Type Department Care Team (Late st Contact Info) Description 02/21/2025 Orders Only [facility] [address] [place] [address] Clara Shearer MD [address] [place] [address] Hematuria, unspecified type (Primary Dx) Social History Tobacco Use Types Packs/Day Years Used Date Smoking Tobacco: Never Passive Smoke Exposure: Never Smokeless Tobacco: Never Alcohol Use Standard Drinks/Week Comments Never 0 (1 standard drink = 0.6 oz pur e alcohol) Depression Answer Date Recorded Patient Health Questionnaire-9 Score 17 12/30/2024 Patient Health Questionnaire-9 Score 17 12/30/2024 Last PHQ-9: Questionnaire Data Not on file 0 12/30/2024 Housing Stability Answer Date Recorded What is [...] Answer Date Recorded Patient Health Questionnaire-2 Score 6 12/30/2024 Internet Access Answer Date Recorded Internet Access [...] Description 04/01/2025 3:45 PM EDT Office Visit [facility] [address] [place] [address] Clara Shearer MD [address] [place] [address] 05/08/2025 8:00 AM EDT Office Visit [facility] ADULT D[facility] [address] [place] [address] Katt Espinoza [address] [place] [address] Scheduled Orders Name Type Priority Associated Diagnoses Orde r Schedule US BLADDER Imaging Routine Hematuria, unspecified type Expected: 02/21/2025, Expires: 02/21/2026 US RENAL BI Imaging Routine Hematuria, unspecified type Expected: 02/21/2025, Expires: 02/21/2026 documented as of this encounter Visit Diagnoses Diagnosis Hematuria, unspecified type- Primary documented in this encounter Additional Health Concerns Assessment Noted Time PHQ-9 Depression Total Score: 17 025 1:38 PM EDT documented as of this encounter Care Teams Plant Propagator Relationship Specialty Start Date End Date Clara Shearer MD [address] [place] [address] PCP - General Family Medicine 07/24/18 documented as of this encounter
--- OUTSIDE RECORDS SUMMARY | 2025-03-20 15:40 | XMS_ITS | Encounter Summary ---
Author Organization [facility] Address [address] [place] [address] [address] [place] [address] Care Team Providers Care Tool Straightener Name Role Phone Clara Shearer MD Primary Care Provider [phone] Encounter Details Date Type Department Care Team (Latest Contact Info) Description 09/26/2019 Abstract [facility] CONVERSIONS Dental, Provider, DDS Social History [...] Description 04/01/2025 3:45 PM EDT Office Visit [facility] [address] [place] [address] Clara Shearer MD [address] [place] [address] 05/08/2025 8:00 AM EDT Office Visit [facility] ADULT DENTAL [address] [place] [address] Katt Espinoza [address] [place] [address] documented as of this encounter Visit Diagnoses Not on filedocumented in this encounter Care Teams Tool Straightener Relationship Specialty Start Date End Date Clara Shearer MD [address] [place] [id number] PCP - General Family Medicine 07/24/18 documented as of this encounter
--- OUTSIDE RECORDS SUMMARY | 2025-03-20 15:40 | XMS_ITS | Encounter Summary ---
Author Organization [employer] Address [address] [facility] 7t [place] [address] Care Team Providers Care Software Systems Engineer Name Role Phone Clara Shearer MD Primary Care Provider [phone] Reason for Visit * Reason Onset Date Comments Nurse Triage 06/05/2023 Encounter Details Date Type Department Care Team ([facility] st Contact Info) Description 06/05/2023 Telephone [facility] MEDICINE [address] [place], [place] [phone] Clara Shearer MD [address] [place], [place] [phone] Nurse Triage Social History Tobacco Use Types [...] 06/05/2023 4:47 PM EST Triage call with [employer] Manager [place] [id number] Pt reports headaches which have started 2 [...] to try this. Pt will come to [facility] tomorrow 06/06/23 to be seen by provider. [...] Nausea as well Please contact pt at [phone] Yakut Speaker. documented in this encounter Plan of Treatment Upcoming Encounters Date Type Department Care Team (Late st Contact Info) Description 04/01/2025 3:45 PM EDT Office Visit [facility] MEDICINE [address] [place] [address] Clara Shearer MD [address] [place] [address] 05/08/2025 8:00 AM EDT Office Visit [facility] ADULT DENTAL [address] [place] [address] Katt Espinoza [address] [place] [address] documented as of this encounter Visit Diagnoses Not on filedocumented in this encounter Additional Health Concerns Assessment Noted Time PHQ-9 Depression Total Score: 5 03/07/20 23 3:27 PM EDT documented as of this encounter Care Teams Software Systems Engineer Relationship Specialty Start Date End Date Clara Shearer MD [address] [place] [address] PCP - General Family Medicine 07/24/18 documented as of this encounter
--- OUTSIDE RECORDS SUMMARY | 2025-03-20 15:40 | XMS_ITS | Encounter Summary ---
Author Organization [employer] Address 75 [facility] 7t [place] [address] Care Team Providers Care Barrel Inspector Tight Name Role Phone Clara Shearer MD Primary Care Provider [phone] Reason for Visit * Reason Onset Date Comments rs prophy 05/22/2023 Encounter Details Date Type Department Care Team ([facility] st Contact Info) Description 05/22/2023 Telephone [facility] ADULT DENTAL [address] [place], [place] [phone] Olga, Katt [address] [place] [address] rs prophy Social History Tobacco Use Types [...] Description 04/01/2025 3:45 PM EDT Office Visit [facility] MEDICINE [address] [place] [address] Clara Shearer MD 230 [place] [address] 05/08/2025 8:00 AM EDT Office Visit [facility] ADULT DENTAL [address] [place] [address] Katt Espinoza [address] [place] [address] documented as of this encounter Visit Diagnoses Not on filedocumented in this encounter Additional Health Concerns Assessment Noted Time PHQ-9 Depression Total Score: 5 03/07/20 23 3:27 PM EDT documented as of this encounter Care Teams Barrel Inspector Tight Relationship Specialty Start Date End Date Clara Shearer MD 230 [place] [address] PCP - General Family Medicine 07/24/18 documented as of this encounter
--- OUTSIDE RECORDS SUMMARY | 2025-03-20 15:40 | XMS_ITS | Encounter Summary ---
Author Organization [facility] Address [address] [place] [address] Phone Care Team Providers Care Equipment Operator Wage Hand Name Role Phone Unknown, Unknown Primary Care Provider Clara Thompson MD Primary Care Provider [phone] Clara Shearer MD Primary Care Provider [phone] Encounter Details Date Type Department Care Team (Late st Contact Info) Description 02/24/2018 Procedure Pass [facility], Ct Scan - [facility] [address] [place] [address] Social History Tobacco Use Types Packs/Day Years [...] CoV-Risk 06/19/2023 06/19/2023 06/30/2023 1:24 AM EST CoV-Risk 02/22/2025 02/22/2025 03/05/2025 1:21 AM EDT documented as of this encounter Care Teams Equipment Operator Wage Hand Relationship Specialty Start Date End Date Unknown, Unknown, PCP - General 02/24/18 11/09/20 Clara Shearer MD [address] [place] [address] PCP - General Family Medicine 11/10/20 02/15/22 Clara Shearer MD [address] [place] [address] PCP - General Family Medicine 02/16/22 documented as of this encounter Additional Source Comments The information contained in this document represents components of the legal health record. It is not the complete legal health record.[facility]
--- OUTSIDE RECORDS SUMMARY | 2025-03-20 15:40 | XMS_ITS | Encounter Summary ---
Author Organization [employer] Address [address] [facility] 7t [place] [address] Care Team Providers Care Buttonhole Maker Hand Name Role Phone Clara Shearer MD Primary Care Provider Encounter Details Date Type Department Care Team (Late st Contact Info) Description 03/20/2025 Orders Only GENERIC EXTERNAL DATA DEPARTMENT Provider, [...] t he electric, gas, oil or water [employer] threatened to shut off services in [...] Description 04/01/2025 3:45 PM EDT Office Visit [facility] MEDICINE [address] [place] [address] Clara Shearer MD [address] [place] [address] 05/08/2025 8:00 AM EDT Office Visit [facility] ADULT DENTAL [address] [place] [address] Olga, Katt [address] [place] [address] documented as of this encounter Procedures Procedure Name Priority Date/Time Associated Diagnosis Comments PROTHROMBIN TIME WHOLE BLD POC Routine 03/20/2025 3:04 PM EDT ~PT, ~INR - ANTI COAG CLINIC Routine 03/20/2025 3:04 PM EDT documented in this encounter Results * (ABNORMAL) PROTHROMBIN TIME WHOLE BLD POC (03/20/2025 3:04 PM EDT) Protime 38.8(H) 11.1 - 13.5 sec [facility] 03/20/2025 3:04 PM EDT 03/20/2025 3:06 PM EDT us Generic External Data Provider LAB BLOOD ORDERAB LES Final Result [facility] [address] [place] [address] [phone] * (ABNORMAL) ~PT, ~INR - ANTI COAG CLINIC (03/20/2025 3:04 PM EDT) Prothrombin Time INR 3.2(H) 0.9 - 1.1 [facility] Comment:METER #: [id number] TERNATIONAL NORMALIZED RATIO (INR) REFERENCE RANGES Reference RangeFor patients not on anticoagulant therapy: 0.9 - 1.1INR ranges for oral anticoagulanttherapy:For prevention and treatment of venous thrombosis and pulmonary embolism: 2.0 - 3.0For acute myocardial infarction with aspirin therapy: 2.0 - 3.0For acute myocardial infarction without aspirin therapy: 3.0 - 4.0For patients with mechanical prosthetic heart valves: 2.5 - 3.5 03/20/2025 3:04 PM EDT 03/20/2025 3:06 PM EDT Generic External Data Provider LAB BLOOD ORDERAB LES Final Result [facility] [address] [place] [address] [phone] documented in this encounter Visit Diagnoses Not on filedocumented in this encounter Additional Health Concerns Assessment Noted Time PHQ-9 Depression Total Score: 17 025 1:38 PM EDT documented as of this encounter Care Teams Buttonhole Maker Hand Relationship Specialty Start Date End Date Clara Shearer MD [address] [place] [address] PCP - General Family Medicine 07/24/18 documented as of this encounter
--- OUTSIDE RECORDS SUMMARY | 2025-03-20 15:40 | XMS_ITS | Encounter Summary ---
Author Organization [employer] Address [address] [facility] [address], [place] [address] Care Team Providers Care Prop And Scenery Maker Name Role Phone Clara Shearer MD Primary Care Provider [phone] Reason for Referral * Consultation (Routine) - Closed Specialty Diagnoses / Procedures Referred By Contac t Referred To Contact Physical Therapy Diagnoses Right hip pain Chronic right-sided low back pain, unspecified whether sciatica present Clara Sheraer MD [address] [place] [address] Phone: tel: fax: AT Physical Therapy - [address] [address] Phone: tel: fax: Referral ID Status Reason Start Date Expiration Date V isits Requested Visits Authorized [id number] Closed Specialty Services Required 11/14/2023 11/13/2024 1 1 Encounter Details Date Type Department Care Team (Late st Contact Info) Description 11/14/2023 Orders Only [facility] MEDICINE [address] [place], [place] [phone] Clara Shearer MD [address] [place], [place] [phone] Right hip pain (Primary Dx); Chronic right-sided [...] Description 04/01/2025 3:45 PM EDT Office Visit [facility] MEDICINE [address] [place] [address] Clara Shearer MD [address] [place] [address] 05/08/2025 8:00 AM EDT Office Visit [facility] ADULT [facility] [address] [place] [address] Katt Espinoza [address] [place] [address] Scheduled Referrals Name Type Priority Associated Diagnoses [...] PM EDT Narrative 11/25/2023 8:18 AM EDT [address] [address] XRay Report Signed Patient: Thalia Martell MR#: [id number] : 1975 Acct:[id number] Age/Sex: 48 / F ADM Date: 11/16/23 Loc: HO.XRAY Attending Dr: Clara Shearer MD Ordering Physician: Clara Shearer MD Date of Service: 11/16/23 Procedure(s): XR thoracic spine 2V Accession Number(s): [id number] cc: Clara Shearer MD EXAMINATION: XR THORACOLUMBAR [...] By: <Electronically signed by Easton Campos MD in OV> 11/25/23814 DD/ 1549 TD/TT: Ultrasound Sonographer: QUINN Procedure Note Donotarmindainterpreter, Image - 11/25/[address] [address] XRay Report Signed Patient: Yoel Martell#: [id number] : 1975Acct:[id number] Age/Sex: 48 / FADM Date: 11/16/23 Loc: HO.XRAY Attending Dr: Clara Shearer MD Ordering Physician: Clara Shearer MD Date of Service: 11/16/23 Procedure(s): XR thoracic spine 2V Accession Number(s): [id number] cc: Clara Shearer MD EXAMINATION: XR THORACOLUMBAR [...] <Electronically signed by Easton Campos MD inOV> 11/25/23814 DD/ 1549 TD/TT: Ultrasound Sonographer: QUINN Clara Shearer MD IMG XR PROCEDURES [...] documented as of this encounter Care Teams Prop And Scenery Maker Relationship Specialty Start Date End Date Clara Shearer MD [address] [place] [address] PCP - General Family Medicine 07/24/18 documented as of this encounter
--- OUTSIDE RECORDS SUMMARY | 2025-03-20 15:40 | XMS_ITS | Encounter Summary ---
Author Organization [facility] Address [address] [facility] [address] [place] [address] Phone Care Team Providers Care Operations And Maintenance Manager Name Role Phone Clara Shearer MD Primary Care Provider [phone] Encounter Details Date Type Department Care Team (Late st Contact Info) Description 08/19/2022 Procedure Pass [place] Admitting Dept - Virtual Department [address] [place] [address] Social History Tobacco Use Types Packs/Day Years [...] documented as of this encounter Care Teams Operations And Maintenance Manager Relationship Specialty Start Date End Date Clara Shearer MD [address] [place] [address] PCP - General Family Medicine 02/16/22 documented as of this encounter Additional Source Comments The information contained in this document represents components of the legal health record. It is not the complete legal health record.[facility]
--- OUTSIDE RECORDS SUMMARY | 2025-03-20 15:40 | XMS_ITS | Encounter Summary ---
Author Organization [facility] Address [address] [place] [address] Phone Care Team Providers Care Expressive Art Therapist Name Role Phone Clara Shearer MD Primary Care Provider [phone] Encounter Details Date Type Department Care Team (Late st Contact Info) Description 06/19/2023 Procedure Pass [facility], Ct Scan - [address] [address] Social History Tobacco Use Types Packs/Day Years Used Date Smoking Tobacco: Never Smokeless Tobacco: Never Alcohol Use Standard Drinks/Week Comments No 0 (1 standard drink = 0.6 oz pur e alcohol) Education Answer Date Recorded Are you interested in more education? Not on nimisha e 11/18/2022 Are you concerned about learning? Not on file 11/18/2022 No 11/18/2022 No 11/18/2022 Digital Access Answer Date Recorded No 12/13/2022 No 12/13/2022 Reliable internet access at home? Not on file 12/13/2022 Device with a working camera? Not on file Intimate Partner Violence Answer Date R ecorded Are you denied basic needs s uch as food, clothing, or medical care? No 06/19/2023 In the past 12 months have y ou been in a relationship with a person who hurts, threatens, or tries to control you? No 06/19/2023 Are you denied basic needs s uch as food, clothing, or medical care? No 06/19/2023 In the past 12 months have y ou been in a relationship with a person who hurts, threatens, or tries to control you? No 06/19/2023 Comments No Sex and Gender Information Value Date Recorded Sex Assigned at Female 11/09/2020 8:05 PM EDT Legal Sex Female 9:26 PM EDT Gender Identity Female 11/09/2020 8:05 PM EDT Sexual Orientation Straight 11/09/2020 8: 05 PM EDT documented as of this encounter Functional Status * Calculated C-SSRS Risk Score (Lifetime/Recent) Answer Date of Assessment Author No Risk Indicated 06/19/2023 8:16 AM Wandy Shelby RN * [place] Suicide Severity Rating Scale (Screener/Recent Self-Report) Question Answer Date of Assessment Author 1. Wish to be (Past 1 Month) No 023 8:16 AM Wandy Shelby RN 2. Non-Specific Active Suici layton Thoughts (Past 1 Month) No 06/19/2023 8:16 AM Wandy Shelby RN 6. Suicidal Behavior (Lifetime) No 8:16 AM Wandy Shelby RN documented as of this encounter Plan of Treatment Not on file documented as of this encounter Visit Diagnoses Not on filedocumented in this encounter Additional Health Concerns Infection Onset Date Last Indicated Resolved Time CoV-Risk 06/19/2023 06/19/2023 06/30/2023 1:24 AM EST CoV-Risk 02/22/2025 02/22/2025 03/05/2025 1:21 AM EDT documented as of this encounter Care Teams Expressive Art Therapist Relationship Specialty Start Date End Date Clara Shearer MD [address] [place] [address] PCP - General Family Medicine 02/16/22 documented as of this encounter Additional Source Comments The information contained in this document represents components of the legal health record. It is not the complete legal health record.[facility]
--- OUTSIDE RECORDS SUMMARY | 2025-03-20 15:40 | XMS_ITS | Encounter Summary ---
Author Organization [facility] Address [address] [place] [address] Phone Care Team Providers Care Service Now Developer Name Role Phone Clara Shearer MD Primary Care Provider [phone] Encounter Details Date Type Department Care Team (Late st Contact Info) Description 12/04/2022 Procedure Pass [facility], Ct Scan - [address] [address] Social History Tobacco Use Types Packs/Day Years [...] documented as of this encounter Care Teams Service Now Developer Relationship Specialty Start Date End Date Clara Shearer MD [address] [place] [address] PCP - General Family Medicine 02/16/22 documented as of this encounter Additional Source Comments The information contained in this document represents components of the legal health record. It is not the complete legal health record.[facility]
--- OUTSIDE RECORDS SUMMARY | 2025-03-20 15:40 | XMS_ITS | Encounter Summary ---
Author Organization [facility] Address [address] [place] [address] Phone Care Team Providers Care Gas Fitter Name Role Phone Clara Shearer MD Primary Care Provider [phone] Encounter Details Date Type Department Care Team (Late st Contact Info) Description 12/04/2022 Procedure Pass [facility], Ct Scan - [address] [address] Social History Tobacco Use Types Packs/Day Years [...] documented as of this encounter Care Teams Gas Fitter Relationship Specialty Start Date End Date Clara Shearer MD [address] [place] [address] PCP - General Family Medicine 02/16/22 documented as of this encounter Additional Source Comments The information contained in this document represents components of the legal health record. It is not the complete legal health record.[facility]
--- OUTSIDE RECORDS SUMMARY | 2025-03-20 15:40 | XMS_ITS | Encounter Summary ---
Author Organization [facility] Address [address] [place] [address] Phone Care Team Providers Care Wig Dresser Name Role Phone Unknown, Unknown Primary Care Provider Clara Thompson MD Primary Care Provider [phone] Clara Shearer MD Primary Care Provider [phone] Encounter Details Date Type Department Care Team (Late st Contact Info) Description 11/09/2020 Procedure Pass [facility], Ct Scan - [facility] [address] [place] [address] Social History Tobacco Use Types Packs/Day Years [...] Date of Assessment Author No Risk Indicated 11/09/2020 8:03 PM EDT Marysol Hurt RN * [place] Suicide Severity Rating Scale (Screener/Recent Self-Report) Question Answer Date of Assessment Author 1. Wish to be (Past 1 Month) No 11/09/2020 8:03 PM EDT Marysol Hurt RN 2. Non-Specific Active Suicidal Thoughts (Past 1 Month) No 11/09/2020 8:03 PM EDT Postema, Marysol oh RN 6. Suicidal Behavior (Lifetime) No 11/09/2020 8:03 PM EDT Postema, Marysol oh RN documented as of this encounter Plan of Treatment Not on file documented as of this encounter Visit Diagnoses Not on filedocumented in this encounter Additional Health Concerns Infection Onset Date Last Indicated Resolved Time CoV-Risk 06/19/2023 06/19/2023 06/30/2023 1:24 AM EST CoV-Risk 02/22/2025 02/22/2025 03/05/2025 1:21 AM EDT documented as of this encounter Care Teams Wig Dresser Relationship Specialty Start Date End Date Unknown, Unknown, MD PCP - General 02/24/18 11/09/20 Clara Shearer MD [address] [place] [address] PCP - General Family Medicine 11/10/20 02/15/22 Clara Shearer MD [address] [place] [address] PCP - General Family Medicine 02/16/22 documented as of this encounter Additional Source Comments The information contained in this document represents components of the legal health record. It is not the complete legal health record.[facility]
--- OUTSIDE RECORDS SUMMARY | 2025-03-20 15:40 | XMS_ITS | Encounter Summary ---
Author Organization [employer] Address [address] [place] [address], [place] [address] Care Team Providers Care Cnmt Name Role Phone Clara Shearer MD Primary Care Provider [phone] Reason for Visit * Reason Onset Date Comments Letter for School/Work 08/02/2022 Encounter Details Date Type Department Care Team ([facility] st Contact Info) Description 08/02/2022 Telephone [facility] MEDICINE [address] [place] [address] Clara Shearer MD [address] [place] [address] Letter for School/Work Social History Tobacco Use [...] a upcoming procedure on 08-19-22. Fax number [phone] Any question please contact Ambreen at [phone] ext [phone] * Telephone Encounter - Khang Garcia - 08/04/2022 2:41 PM EST Tc [place] with [facility] requesting a call regarding message below Please contact pankaj at [phone] * Telephone Encounter - Ronda Mahan LPN [...] 2:48 PM EST Tc from [place] with [facility] requesting a letter stating when pt will be stopping medication ( warfarin 2 mg ) prior to OP Please contact claudia at [phone] ext [phone] documented in this encounter Plan of Treatment Upcoming Encounters Date Type Department Care Team (Late st Contact Info) Description 04/01/2025 3:45 PM EDT Office Visit [facility] MEDICINE [address] [place] [address] Clara Shearer MD [address] [place] [address] 05/08/2025 8:00 AM EDT Office Visit [facility] ADULT DENTAL [address] [place], [place] [phone] Jignesh Espinozaaris [address] [place] [address] documented as of this encounter Visit Diagnoses Not on filedocumented in this encounter Care Teams Cnmt Relationship Specialty Start Date End Date Clara Shearer MD [address] [place] [address] PCP - General Family Medicine 07/24/18 documented as of this encounter
--- OUTSIDE RECORDS SUMMARY | 2025-03-20 15:40 | XMS_ITS | Encounter Summary ---
Author Organization [employer] Address [address] [facility] 7t [place] [address] Care Team Providers Care Dipper Fish Name Role Phone Clara Shearer MD Primary Care Provider [phone] Encounter Details Date Type Department Care Team ([facility] st Contact Info) Description 01/22/2024 Orders Only [facility] MEDICINE [address] [place], [place] [phone] Clara Shearer MD [address] [place], [place] [phone] History of mechanical aortic valve replacement Social [...] Description 04/01/2025 3:45 PM EDT Office Visit [facility] MEDICINE [address] [place], [place] [phone] Clara Shearer MD [address] [place] [address] 05/08/2025 8:00 AM EDT Office Visit [facility] ADULT DENTAL [address] [place], [place] [phone] Katt Espinoza [address] [place] [address] documented as of this encounter Visit Diagnoses Diagnosis History of mechanical aortic valve replacement documented in this encounter Additional Health Concerns Assessment Noted Time PHQ-9 Depression Total Score: 0 10/17/19 24 3:45 PM EDT documented as of this encounter Care Teams Dipper Fish Relationship Specialty Start Date End Date Clara Shearer MD [address] [place], [place] [phone] PCP - General Family Medicine 07/24/18 documented as of this encounter
--- OUTSIDE RECORDS SUMMARY | 2025-03-20 15:40 | XMS_ITS | Encounter Summary ---
Author Organization [employer] Address [address] [facility] [address] [place] [address] Care Team Providers Care Digital Music Instructor Name Role Phone Clara Shearer MD Primary Care Provider [phone] Encounter Details Date Type Department Care Team (Late st Contact Info) Description 07/20/2022 Abstract [facility] MEDICINE [address] [place], [place] [phone] Clara Shearer MD [address] [place] [address] Social History Tobacco Use Types Packs/Day Years [...] Description 04/01/2025 3:45 PM EDT Office Visit [facility] MEDICINE [address] [place], [place] [phone] Clara Shearer MD [address] [place] [address] 05/08/2025 8:00 AM EDT Office Visit [facility] ADULT DENTAL [address] [place], [place] [phone] Katt Espinoza [address] [place] [address] documented as of this encounter Visit Diagnoses Not on filedocumented in this encounter Care Teams Digital Music Instructor Relationship Specialty Start Date End Date Clara Shearer MD [address] [place] [address] PCP - General Family Medicine 07/24/18 documented as of this encounter
--- OUTSIDE RECORDS SUMMARY | 2025-03-20 15:40 | XMS_ITS | Encounter Summary ---
Author Organization [employer] Address [address] [place] [address] 7 [place] [address] Care Team Providers Care Employment Program Representative Name Role Phone Clara Shearer MD Primary Care Provider [phone] Reason for Referral * Imaging (Routine) - Closed Specialty Diagnoses / Procedures Referred By Contac t Referred To Contact Radiology Diagnoses Metabolic dysfunction-associated steatotic liver disease (MASLD) Procedures US Abdomen Comp w elastography Clara Shearer MD [address] [place] [address] Phone: tel: fax: [address] Phone: tel: fax: Referral ID Status Reason Start Date Expiration Date Visits Re quested Visits Authorized [id number] Closed 11/17/2023 11/16/2024 1 1 Encounter Details Date Type Department Care Team (Late st Contact Info) Description 11/17/2023 Orders Only [facility] [address] [place], [place] [phone] Clara Shearer MD [address], [place] [phone] Metabolic dysfunction-associated steatotic liver disease (MASLD) (Primary [...] Description 04/01/2025 3:45 PM EDT Office Visit [facility] [address] [place] [address] Clara Shearer MD [address] [place] [address] 05/08/2025 8:00 AM EDT Office Visit [facility] [address] [place] [address] Katt Espinoza [address] [place] [address] documented as of this encounter Procedures Procedure Name Priority Date/Time Associated Diagnosis Comments US ABDOMEN COMPLETE WITH ELASTOGRAPHY Routine 12/05/2023 9:26 AM EDT Metabolic dysfunction-associa ebony steatotic liver disease (MASLD) documented in this encounter Results * US Abdomen Comp w elastography (12/05/2023 9:26 AM EDT) Anatomical Region Laterality Modality Abdomen Ultrasound 12/05/2023 9:26 AM EDT Narrative 12/12/2023 9:41 AM EDT [address] [address] Ultrasound Report Signed Patient: Thalia Martell MR#: [id number] : 1975 Acct:[id number] Age/Sex: 48 / F ADM Date: 12/05/23 Loc: HO.US Attending Dr: Clara Shearer MD Ordering Physician: Clara Shearer MD Date of Service: 12/05/23 Procedure(s): US abdomen comp w elastography Accession Number(s): [id number] cc: Clara Shearer MD EXAMINATION: US COMPLETE [...] signed by Yaniv Ledezma MD in OV> 12/12/2337 DD/ 5 TD/TT: Ed Teacher: SS Procedure Note Donotuseinterpreter, Image - 12/12/2023 [place] [id number] Ultrasound Report Signed Patient: Yoel Martell#: [id number] : 1975Acct:[id number] Age/Sex: 48 / FADM Date: 12/05/23 Loc: HO.US Attending Dr: Clara Shearer MD Ordering Physician: Clara Shearer MD Date of Service: 12/05/23 Procedure(s): US abdomen comp w elastography Accession Number(s): [id number] cc: Clara Shearer MD EXAMINATION: US COMPLETE [...] signed by Yaniv Ledezma MD in OV> 12/12/2337 DD/ 5 TD/TT: Ed Teacher: SS us Clara Shearer MD IMG US PROCEDURES Final Result documented in this encounter Visit Diagnoses Diagnosis Metabolic dysfunction-associated steatotic liver disease (MASLD)- Primary documented in this encounter Additional Health Concerns Assessment Noted Time PHQ-9 Depression Total Score: 0 10/17/19 24 3:45 PM EDT documented as of this encounter Care Teams Employment Program Representative Relationship Specialty Start Date End Date Clara Shearer MD [address] [place] [address] PCP - General Family Medicine 07/24/18 documented as of this encounter
--- OUTSIDE RECORDS SUMMARY | 2025-03-20 15:40 | XMS_ITS | Clinical Summary ---
Author Organization [employer] Address [address] [facility] [address] [place] [address] Care Team Providers Care Nsh Teacher Name Role Phone Clara Shearer MD Primary Care Provider [phone] Allergies No known active allergies Medications * This document contains information received from the source organization and may not represent a complete record from that organization. Sodium Fluoride (PreviDent 5000 Plus) 1.1 % cream Apply 1 mg to teeth 3 times daily. 1 g 3 4 Active tolterodine LA (Detrol LA) 4 MG 24 hr capsule Take 4 mg by mouth Once per day. Active cetirizine (ZyrTEC) 10 MG tablet TAKE 1 TABLET BY MOUTH EVERY DAY 30 tablet 11 5 Active cyclobenzaprine (Flexeril) 10 MG tabletIndicatio ns:Acute left-sided low back pain without sciatica Take 1 tablet (10 mg) by mouth if needed in the morning, at noon, and at bedtime for muscle spasms for up to [address] with medication 20 tablet 5 Active warfarin (Coumadin) 2 MG tabletIndicatio ns:History of mechanical aortic valve replacement TAKE 2 TO 4 TABLETS BY MOUTH DAILY DIRECTED BY COUMADIN CLINIC 120 tablet 11 5 Active Ascorbic Acid (vitamin C) 500 MG tablet TAKE 1 TABLET BY MOUTH TWICE DAILY 180 tablet 5 Active cholecalciferol (D3 Super Strength) 50 MCG (1999) capsule TAKE 1 CAPSULE BY MOUTH EVERY DAY 90 capsule 5 Active olopatadine (Pataday) 0.2 % ophthalmic solution INSTILL 1 DROP INTO THE AFFECTED EYE(S) DAILY NEEDED FOR ITCHING 5 Active SUMAtriptan (Imitrex) 100 MG tablet TAKE 1 TABLET BY MOUTH AT ONSET OF MIGRAINE. MAY REPEAT ONCE AFTER 2 HOURS IF NEEDED, DO NOT EXCEED 2 TABLETS / 24 HOURS Active docusate sodium (Colace) 100 MG capsule Take 1 tablet by mouth every 12 (twelve) hours. 0 025 Discontin ued(Thera py completed ) ferrous sulfate 325 (65 Fe) MG tablet Take 1 tablet by mouth every 12 (twelve) hours. 1 025 Discontin ued(Thera py completed ) HM ClearLax 17 GM/SCOOP powder 17 g. 3 025 Discontin ued(Thera py completed ) senna (Senokot) 8.6 MG tablet Take 2 tablets by mouth at bedtime. 3 025 Discontin ued(Thera py completed ) acetaminophen (Tylenol Extra Strength) 500 MG tablet Take 2 tablets (1,000 mg) by mouth every 6 (six) hours if needed for mild pain or moderate pain. 30 tablet 1 3 025 Discontin ued(Thera py completed ) Minoxidil 5 % foam Apply to scalp 1/2 capsul once daily 60 g 3 3 025 Discontin ued(Thera py completed ) omeprazole (PriLOSEC) [address] capsule Take 20 mg by mouth in the morning. 3 025 Discontin ued(Thera py completed ) Multiple Vitamin (Multivitamin) tablet TAKE 1 TABLET BY MOUTH EVERY DAY WITH FOOD 90 tablet 4 025 Discontin ued(Thera py completed ) SUMAtriptan (Imitrex) 50 MG tablet TAKE 1 TABLET BY MOUTH AT ONSET OF MIGRAINE. MAY REPEAT ONCE AFTER 2 HOURS IF NEEDED 9 tablet 4 025 Discontin ued(Thera py completed ) aspirin 81 MG EC tablet Take 81 mg by mouth Once per day. 025 Discontin ued(Thera py completed ) amoxicillin (Amoxil) 500 MG capsule Take 4 capsules of amoxicillin 500 mg 1 hour prior dental procedure 12 capsule 025 Discontin ued(Thera py completed ) Active Problems Problem Noted Date Diagnosed Date Adjustment disorder with depressed mood 01/01/20 25 Assessment & Plan (01/13/2025 5:22 AM EDT): - Seen by integrated behavioral health service clinician today Localized gingival recession 10/31/2024 Chronic headache 05/30/2024 Assessment & Plan (01/13/2025 5:21 AM EDT): - patient was diagnosed with AYESHA - pt was seen by sleep clinic provider, mostly in 2024, still waiting for CPAP machine - currently prescribed smatriptan 200 mg per day, Topiramate 50 mg QHS - patient reports improvement of symptoms since she tried imitrex Assessment & Plan (05/30/2024 12:20 PM EST): - patient was diagnosed with AYESHA - will try prescribing CPAP - patient reports improvement of symptoms since she tried imitrex AYESHA (obstructive sleep apnea) 05/30/2024 Assessment & Plan (12/30/2024 4:40 PM EDT): - Pt had sleep study in 2023 showing AYESHA. Pt is still waiting for CPAP. Assessment & Plan (05/30/2024 12:21 PM EST): - patient has sleep study which was ordered by searchlight operator. Patient was referred to sleep medicine [...] low back pain 03/06/2024 Assessment & Plan (12/30/2024 4:37 PM EDT): - s/p PT with minimal improvement - evaluated by [facility] orthopedist in March 2024. MRI in 2023 showed change - pt was seen by spine center provider in September 2024. Her pain was attributed to SI joint dysfunction and was advised to continue PT - patient has received 3 injection treatments with no improvement Assessment & Plan (05/30/2024 12:25 PM EST): - s/p PT with minimal improvement - evaluated by [facility] orthopedist in March 2024. MRI was ordered and patient was referred to [facility] for injection treatment. - patient has received 3 injection treatments with no improvement - patient was advised to contact [facility] orthopedist to inquire [...] pancreatitis in November 2022 - following with [facility] GI, last seen [...] function test Prediabetes 03/19/2023 Assessment & Plan (12/30/2024 9:34 AM EDT): - history of gestational diabetes - pancreatitis in November 2022, treated with IVF - work on lifestyle modifications Assessment & Plan (05/30/2024 12:23 PM EST): [...] Rheumatic heart disease 11/22/2022 Assessment & Plan (12/30/2024 9:32 AM EDT): - s/p AVR in Feb 2010 - on warfarin - previously prescribed metoprolol by searchlight operator; no longer on the medication due to hypotension / dizziness - continue following with searchlight operator, [facility] Dr Haynes - last TTE in January 2022, mild mitral valve stenosis - continue current treatment plan per cardiology Assessment & Plan (05/30/2024 12:22 PM EST): - s/p AVR in Feb 2010 - on warfarin - previously prescribed metoprolol by searchlight operator; no longer on the medication due to hypotension / dizziness - continue following with searchlight operator, [facility] Dr Haynes - last TTE in January 2022, mild mitral valve stenosis - continue current treatment plan per cardiology Assessment & Plan (03/19/2023 1:47 PM EDT): - s/p AVR in Feb 2010 - on warfarin - previously prescribed metoprolol by searchlight operator; no longer on the medication due to hypotension / dizziness - continue following with searchlight operator, [facility] Dr Haynes - last TTE in January 2022, mild mitral valve stenosis - continue current treatment plan per cardiology Assessment & Plan (11/22/2022 11:35 AM EDT): - s/p AVR in Feb 2010 - on warfarin - previously prescribed metoprolol by searchlight operator; no longer on the medication due to hypotension / dizziness - continue following with searchlight operator, [facility] Dr Haynes - last TTE in January 2022, mild mitral valve stenosis - continue current treatment plan per cardiology Chronic anticoagulation 11/22/2022 Assessment & Plan (12/30/2024 9:33 AM EDT): - indication: Aortic valve replacement - medication warfarin - goal INR 2-3 - followed by [facility] anticoagulation clinic - last INR was 2.0 on 03/01/23 - continue current management plan Assessment & Plan (05/30/2024 1:41 PM EST): - indication: Aortic valve replacement - medication warfarin - goal INR 2-3 - followed by [facility] anticoagulation clinic - last INR was 2.0 on 03/01/23 - continue current management plan Assessment & Plan (03/19/2023 1:49 PM EDT): - indication: Aortic valve replacement - medication warfarin - goal INR 2-3 - followed by [facility] anticoagulation clinic - last INR was 2.0 on 03/01/23 - continue current management plan Assessment & Plan (11/22/2022 11:40 AM EDT): - indication: Aortic valve replacement - medication warfarin - goal INR 2-3 - followed by [facility] anticoagulation clinic - last INR was 2.4 in September 2022 Left lower quadrant abdominal swelling, mass and lump 11/08/2022 Assessment & Plan (11/22/2022 11:37 AM EDT): - constipation prevention History of gestational diabetes 11/08/2022 Assessment & Plan (12/30/2024 9:33 AM EDT): Will order lab Assessment & Plan (11/08/2022 4:45 PM EDT): Will order lab Abnormal uterine bleeding 11/08/2022 Assessment & Plan (03/19/2023 1:53 PM EDT): s/p Endometrial Curetting's, polyp, benign -Pt has follow-up appointment with GYROSCOPIC INSTRUMENT MECHANIC -Pt is on Coumadin -Pt requested Hysterectomy, pt will follow-up with GYROSCOPIC INSTRUMENT MECHANIC with possible hysterectomy in future Assessment & Plan (11/08/2022 4:50 PM EDT): s/p Endometrial Curetting's, polyp, benign -Pt has follow-up appointment with GYROSCOPIC INSTRUMENT MECHANIC -Pt is on Coumadin -Pt requested Hysterectomy, pt will follow-up with GYROSCOPIC INSTRUMENT MECHANIC with possible hysterectomy in future Cyst of ovary 09/22/2022 Iron deficiency anemia due to chronic blood loss 09/22/2022 Assessment & Plan (05/30/2024 1:41 PM EST): - AUB in a setting of anticoagulation - s/p removal of endometrial polyp, benign - Pt has follow-up appointment with GYROSCOPIC INSTRUMENT MECHANIC - Pt is taking Coumadin Assessment & Plan (11/03/2023 12:09 PM EDT): - AUB in a setting of anticoagulation - s/p removal of endometrial polyp, benign -Pt has follow-up appointment with GYROSCOPIC INSTRUMENT MECHANIC -Pt is taking Coumadin Assessment & Plan (11/08/2022 4:45 PM EDT): Due to AUB: S/p Endometrial Curetting's, polyp, benign -Pt has follow-up appointment with GYROSCOPIC INSTRUMENT MECHANIC -Pt is taking Coumadin Vitamin D deficiency 12/04/2018 Assessment & Plan (12/30/2024 9:34 AM EDT): -continue vitamin D supplement Assessment & Plan (11/03/2023 12:08 PM EDT): -continue vitamin D supplement Presence of subdermal contraceptive implant 09/2014 History of mechanical aortic valve replacement 0 04/07/2015 Assessment & Plan (12/30/2024 9:32 AM EDT): [facility] 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 Mechanical aortic valve functioning normally. Moderate mitral valve stenosis. No regurgitation. - Continue warfarin - Continue SBE prophylaxis. Assessment & Plan (05/30/2024 12:22 PM EST): - [place]: Dr. Dallas Duran, last seen in December 2023 - s/p AVR for rheumatic disease and aortic regurgitation in Feb 2010 - EKG showed sinus rhythm and RBBB - echocardiogram 08/30/23 EF 57%. Mechanical aortic valve functioning normally. Moderate mitral valve stenosis. No regurgitation. - Continue warfarin - Continue SBE prophylaxis. Assessment & Plan (11/03/2023 12:18 PM EDT): - [place]: Dr. Dallas Duran, last seen in Aug 2023 - s/p AVR for rheumatic disease and aortic regurgitation in Feb 2010 - EKG showed sinus rhythm and RBBB - echocardiogram 08/30/23 EF 57%. Mechanical aortic valve functioning normally. Moderate mitral valve stenosis. No regurgitation. - Continue warfarin - Continue SBE prophylaxis. Assessment & Plan (03/19/2023 1:47 PM EDT): - [place]: Dr. Dallas Duran, last seen in Jul 2022 - s/p AVR for rheumatic disease and aortic regurgitation in Feb 2010 - EKG showed sinus rhythm and RBBB - echocardiogram JANUARY 2022 nml LVEF 60-65%; mild mitral valve stenosis - Continue aspirin and warfarin, per cardiology. - Continue SBE prophylaxis. Assessment & Plan (11/22/2022 11:37 AM EDT): - [place]: Dr. Dallas Duran, last seen in Jul 2022 - s/p AVR for rheumatic disease and aortic regurgitation in Feb 2010 - EKG showed sinus rhythm and RBBB - echocardiogram JANUARY 2022 nml LVEF 60-65%; mild mitral valve stenosis - Continue aspirin and warfarin, per cardiology. - Continue SBE prophylaxis. Allergic rhinitis 12/09/2013 Aortic valve regurgitation 07/25/2013 Assessment & Plan (12/30/2024 9:32 AM EDT): - [place]: Dr. Dallas Duran, last seen in December 2023 - s/p AVR for rheumatic disease and aortic regurgitation due to rheumatic heart disease in Feb 2010 - EKG showed sinus rhythm and RBBB - echocardiogram in Aug 2023, EF 59%. Normally functioning AV. Moderate mitral valve stenosis. - Continue warfarin, per cardiology. - Continue SBE prophylaxis. Assessment & Plan (05/30/2024 12:22 PM EST): - [place]: Dr. Dallas Duran, last seen in December 2023 - s/p AVR for rheumatic disease and aortic regurgitation due to rheumatic heart disease in Feb 2010 - EKG showed sinus rhythm and RBBB - echocardiogram in Aug 2023, EF 59%. Normally functioning AV. Moderate mitral valve stenosis. - Continue warfarin, per cardiology. - Continue SBE prophylaxis. Assessment & Plan (11/03/2023 12:20 PM EDT): [facility] [place] [...] & Plan (11/22/2022 11:36 AM EDT): - [place] last seen in Jul 2022 - [...] EDT): - 12/03/22 Evaluated and treated at [facility] ED. WBC 13k, Lipase 247, CT showed pancreatitis. Given IVF and analgesics. - Seen by [facility] GI in December 2022 - MRI on 03/01/23 was normal. - HgbA1C 5.9% - Follow recommendations per GI. Menometrorrhagia 09/22/2022 03/07/2023 Pain in female pelvis 09/22/20222022 Encounters * This document contains information received from the source organization and may not represent a complete record from that organization. Date Type Department Care Team Description 03/20/2025 Orders Only GENERIC EXTERNAL DATA DEPARTMENT Provider, Generic External Data 02/21/2025 Orders Only [facility] MEDICINE [address] [place] [address] Clara Shearer MD Hematuria, unspecified type (Primary Dx) 2025 Orders Only GENERIC EXTERNAL DATA DEPARTMENT Provider, Generic External Data 02/14/2025 Results Follow-Up [facility] MEDICINE [address] [place] [address] Clara Shearer MD Albumin, Random Urine W/Creatinine, Urinalysis, Complete, with Reflex to Culture 02/13/2025 3:00 PM EDT Office Visit [facility] OPTOMETRY [address] [place] [address] Kenroy, Meliza, OD Presbyopia (Primary Dx); Meibomian gland disease, unspecified laterality 02/13/2025 Travel 02/07/2025 Refill [facility] MEDICINE [address] [place] [address] Clara Shearer MD History of mechanical aortic valve replacement 01/08/2025 Orders Only GENERIC EXTERNAL DATA DEPARTMENT Provider, Generic External Data 01/06/2025 5:20 PM EDT Office Visit [facility] WALK-IN CENTER [address] [place] [address] Luis Macias MD Acute left-sided low back pain without sciatica (Primary Dx) 01/06/2025 Travel 01/06/2025 Telephone [facility] MEDICINE [address] [place] [address] Clara Shearer MD Nurse Triage 12/30/2024 1:45 PM EDT Office Visit [facility] MEDICINE [address] [place] [phone] Clara Shearer MD Rheumatic heart disease (Primary Dx); History of mechanical aortic valve replacement; Rheumatic aortic valve insufficiency; Chronic anticoagulation; Allergic rhinitis, unspecified seasonality, unspecified trigger; Vitamin D deficiency; Prediabetes; History of gestational diabetes; AYESHA (obstructive sleep apnea); Chronic nonintractable headache, unspecified headache type; Chronic midline back pain, unspecified back location; Chronic right-sided low back pain, unspecified whether sciatica present; Class 1 obesity with serious comorbidity and body mass index (BMI) of 30.0 to 30.9 in adult, unspecified obesity type; Adjustment disorder with depressed mood 12/30/2024 Travel 12/26/2024 Telephone [facility] MEDICINE [address] [place] [address] Clara Shearer MD chart prep from Last 3 Months Immunizations Immunization Administration Dates Next Due Hep A, Adult 12/30/2024 Hep B, adult 05/09/2023,12/07/2022,11/08/2022 Influenza Injectable Quadriv alant Preservative Free IIV4 MDCK 07/02/2018,08/02/2016,10/30/2014 Influenza injectable quadriv alent IIV4 with preservative 07/11/2017,04/07/2015 Influenza injectable quadriv alent preservative free 05/09/2023,07/12/2021,07/02/2018,07/11,08/02/2016,04/07/2015,10/30/2014 Influenza, IIV3, injectable 04/06/2011 Influenza, Split (incl. dave fied surface antigen) 07/25/2013,10/08/2012 Influenza, Unspecified 07/25/2013,10/08/2012, Influenza, seasonal, injecta ble, preservative free 05/30/2024 Moderna Covid-19 Vaccine 12+ 11/06/2020,10/10/19 21 Pfizer Covid-19 Vaccine 12+ 12/30/2024, 3 Pneumococcal Conjugate PCV 20 03/07/2023 Pneumococcal Polysaccharide [...] Sign Reading Time Taken Comments Blood Pressure 106/61 01/06/2025 4:52 PM EDT Pulse 73 01/06/2025 4:52 PM EDT Temperature 36.8 C (98.3 F) 01/06/2025 4:52 PM EDT Respiratory Rate 18 01/06/2025 4:52 PM EDT Oxygen Saturation 97% 05/30/2024 8:50 AM EST Inhaled Oxygen Concentration - - Weight 67.2 kg (148 lb 3.2 oz) 01/06/2025 4:52 P M EDT Height 149 cm (4' 10.66 ) 01/06/2025 4:52 PM EDT Body Mass Index 30.28 01/06/2025 4:52 PM EDT Plan of Treatment Upcoming Encounters Date Type Department Care Team (Late st Contact Info) Description 04/01/2025 3:45 PM EDT Office Visit [facility] MEDICINE [address] [place] [address] Clara Shearer MD [address] [place] [address] 05/08/2025 8:00 AM EDT Office Visit [facility] ADULT DENTAL [address] [place], [place] [phone] Jignesh Espinozaaris [address] [place] [address] Health Maintenance Due Date Last Done Comments CT Colonography 1977 FIT DNA/Cologuard 1977 FIT 1977 FOBT 1977 Sigmoidoscopy 1977 Family Planning (PISQ) 02/19/1992 Dental Oral Exam 07/21/2024 01/19/2024, , 02/03/2021, Additional history exists Dental X-Ray: Bitewings 12/28/2024 12/28/19 24, 02/03/2021, 09/26/2019 Influenza Vaccine (#1) 2025 , 05/09/2023, 07/12/2021, Additional history exists Dental Prophylaxis 05/03/2025 10/31/2024, 0 12/28/2023, 09/26/2019 SDOH Screening 05/22/2025 05/22/2024 Alcohol/Substance Use Screening 05/30/2025 05/30/2024 Depression Monitoring 07/01/2025 12/30/2024, 025 Hepatitis A Vaccines (2 of 2 - Risk 2-dose series) 07/01/2025 12/30/2024 Cervical Cancer Screening 11/13/2025 HPV/Cotest 11/13/2025 11/13/2020, 08/20/2019 Pap Smear 11/13/2025 11/13/2020 Disability Screening 12/30/2025 12/30/2024 Diabetes: Hemoglobin A1C 2026 025, 12/11/2023, 11/16/2023, Additional history exists Tobacco Screening 02/27/2026 02/27/2025 Dental X-Ray: Full Mouth 04/20/2026 04/19/2023, 01/21 Mammogram 10/04/2026 10/04/2024, 06/08/2022, 12/23/2022, Additional history exists Zoster Vaccines (1 of 2) 2027 Lipid Panel 2030 2025, /11/2023, 12/15/2022, Additional history exists DTaP/Tdap/Td Vaccines (3 - Td or Tdap) 07/12/2031 07/12/2021, 04/30/2010 Colonoscopy 07/11/2032 Colorectal Cancer Screening 07/11/2032 RSV Patients and Patients Aged 60 years or older (1 - 1-dose 75+ series) 02/19/2052 HIV Screening Completed 12/15/2022, 07/22/2019 Pneumococcal Vaccine: Pediatrics (0 to 5 Years) and At-Risk Patients (6 to 49) Years Completed 03/07/2023, 03/07/2010 Hepatitis B Vaccines Completed 05/09/2023, 12/07/2022, 11/08/2022 Hepatitis C Screening Completed 12/11/2023 , 12/15/2022, 07/22/2019 COVID-19 Vaccine Completed 12/30/2024, , 11/06/2020, Additional history exists HIB Vaccines Aged Out No longer eligi ble based on patient's age to complete this topic HPV Vaccines Aged Out No longer eligi ble based on patient's age to complete this topic IPV Vaccines Aged Out No longer eligi ble based on patient's age to complete this topic Meningococcal B Vaccine Aged Out No l onger eligible based on patient's age to complete [...] COAG CLINIC Routine 03/20/2025 3:04 PM EDT PROTHROMBIN TIME WHOLE BLD POC Routine 2025 2:59 PM EDT ~PT, ~INR - ANTI COAG CLINIC Routine 2025 2:59 PM EDT METHYLMALONIC ACID Routine 2025 2: 43 PM EDT HOMOCYSTEINE Routine 2025 2:43 PM EDT VITAMIN B12/FOLATE, SERUM PANEL Routine 2025 2:43 PM EDT TSH W/REFLEX TO FT4 Routine 2025 2 :43 PM EDT VITAMIN D,25-OH,TOTAL,IA Routine 2025 2:43 PM EDT FERRITIN Routine 2025 2:43 PM EDT LIPID PANEL WITH REFLEX TO DIRECT LDL Routine 2025 2:43 PM EDT COMPREHENSIVE METABOLIC PANEL Routine 2025 2:43 PM EDT HEMOGLOBIN A1C Routine 2025 2:43 PM EDT CBC Routine 2025 2:43 PM EDT URINALYSIS, COMPLETE, WITH REFLEX TO CULTURE Routine 2025 2:38 PM EDT Hematuria, unspecified type URINALYSIS, COMPLETE, WITH REFLEX TO CULTURE Routine 02/13/2025 4:15 PM EDT Chronic midline back pain, unspecified back location ALBUMIN, RANDOM URINE W/CREATININE Routine 02/13/2025 4:15 PM EDT Prediabetes Chronic midline back pain, unspecified back location PROTHROMBIN TIME WHOLE BLD POC Routine 01/08/2025 3:13 PM EDT ~PT, ~INR - ANTI COAG CLINIC Routine 01/08/2025 3:13 PM EDT PROPHYLAXIS - ADULT Routine 10/31/2024 2 :00 PM EDT Dental plaque BI MAMMOGRAM SCREENING TOMOSYNTHESIS BILATERAL Routine 10/04/2024 3:55 PM EDT PERIODIC ORAL EVALUATION - ESTABLISHED PATIENT Routine 01/19/2024 1:30 PM EDT Teeth missing Encounter for dental examination BITEWINGS - 2 RADIOGRAPHIC IMAGES Routine 12/28/2023 3:00 PM EDT Teeth missing Dental plaque HEPATITIS PANEL, GENERAL Routine 12/11/2023 4:30 PM EDT HIV 1 RNA, QUANTITATIVE REAL [...] WHOLE BLD POC (03/20/2025 3:04 PM EDT) Only the most recent of3 resultswithin the time period is included. Protime 38.8(H) 11.1 - 13.5 sec [facility] 03/20/2025 3:04 PM EDT 03/20/2025 3:06 PM EDT us Generic External Data Provider LAB BLOOD ORDERAB LES Final Result [facility] [address] [place] [address] [phone] * (ABNORMAL) ~PT, ~INR - ANTI COAG CLINIC (03/20/2025 3:04 PM EDT) Only the most recent of3 resultswithin the time period is included. Prothrombin Time INR 3.2(H) 0.9 - 1.1 [facility] Comment:METER #: [id number] TERNATIONAL NORMALIZED RATIO (INR) REFERENCE RANGES Reference [...] Provider LAB BLOOD ORDERAB LES Final Result [facility] [address] [place] [address] [phone] * Vitamin D, 25-Hydroxy, Total, Immunoassay (2025 2:43 PM EDT) Vitamin D 25-OH Total 46.7 >30 ng/mL [facility] Comment: Health Based Reference Values*< 20 ng/mL Fppipzxtt69-48 ng/mL Insufficient> 30 ng/mL Sufficient*Paul LEVIN. N Engl J Med. 2007;357:266-280There is no well-established upper level of normal vitamin Dlevels. Some laboratories use 50 ng/mL as an upper limit ofnormal. However, toxicity is patient-dependent and may occurat any level. Careful correlation with the patient'spresentation is necessary and, if there is concern forvitamin D toxicity, treatment should be consideredirrespective of the serum level.Care must be taken in interpreting Vitamin D results fromdifferent laboratories and methodologies. Published datademonstrated that results from patients undergoinghemodialysis may show a negative bias when tested withvarious automated 25-OH vitamin D assays when compared toLC-MS/MS.When testing samples from patients whose predominant form ofVitamin D is Vitamin D2, such as patients receiving VitaminD2 supplementation, results that are subtherapeutic shouldbe confirmed with another method such as LC-MS/MS. 2025 2:43 PM EDT 2025 2:43 PM EDT Generic External Data Provider LAB BLOOD ORDERAB LES Final Result Performing Organization Address [facility]/ZIP Co de Phone Number [facility] [address] [place] [address] [phone] * Vitamin B12 (Cobalamin) and Folate Panel, Serum (2025 2:43 PM EDT) Vitamin B12 637 200 - 900 pg/mL [facility] Comment:NORMAL 200-900 PG/ML INDETERMINATE 160-199 PG/ML DEFICIENT < 160 PG/ML Folate 11.2 > or = 4.0 ng/mL [facility] Comment:Reference Values:> o r = 4.0 ng/mL< 4.0 ng/mL suggests folate deficiency Methotrexate, aminopterin and folinic acid(leucovorin) are chemotherapeutic agents whose molecularstructures are similar to folate; therefore, the Architectfolate assay cannot be used for patients using these drugs. 2025 2:43 PM EDT 2025 2:43 PM EDT [employer] External Data Provider LAB BLOOD ORDERAB LES Final Result Performing Organization Address [facility]/ZIP Co de Phone Number [facility] [address] [place] [address] [phone] * TSH with Reflex to Free T4 (2025 2:43 PM EDT) TSH reflex Free T4 1.21 0.32 - 4.0 uIU/mL [facility] 2025 2:43 PM EDT 2025 2:43 PM EDT Generic External Data Provider LAB BLOOD ORDERAB LES Final Result Performing Organization Address [facility] Co de Phone Number [facility] [address] [place] [address] [phone] * (ABNORMAL) Lipid Panel with Reflex to Direct LDL (2025 2:43 PM EDT) Triglycerides 143 <150 mg/dL [facility] Comment:Desirable Triglyceri de: less than 150 mg/dLBorderline High Triglyceride 150-199 mg/dLHigh Triglyceride: 200-499 mg/dLVery High Triglyceride: greater than or equal to 5OO mg/dL Cholesterol 197 <200 mg/dL [facility] Comment:Desirable Cholestero l: less than 200 mg/dLBorderline High Cholesterol: 200-239 mg/dLHigh Cholesterol: greater than 239 mg/dL LDL Cholesterol Calculated 117(H) <100 mg/dL [facility] Comment:Desirable LDL: less than 100 mg/dLNear Optimal/Above Optimal LDL: 110- 129 mg/dLBorderline High LDL: 130-159 mg/dLHigh LDL: 160-189 mg/dLVery High LDL: greater than or equal to 190 mg/dL HDL Cholesterol 52 >40 mg/dL [facility] Comment:Desirable HDL: great er than 40 mg/dL Note: This HDL assay may give artificially low results in patients with liver disease. 2025 2:43 PM EDT 2025 2:43 PM EDT us Generic External Data Provider LAB BLOOD ORDERAB LES Final Result Performing Organization Address [facility] Co de Phone Number [facility] [address] [place] [phone] * Methylmalonic Acid (2025 2:43 PM EDT) Methylmalonic Acid 81 55 - 335 nmol/L [facility] Comment: Serum methylmalonic acid (MMA) levels are used todiagnose and monitor several rare inborn errors ofmetabolism, including methylmalonic aciduria. Theenzymatic conversion of MMA to succinic acid requiresvitamin B12 (adenosyl-cobalamin) as a cofactor. SerumMMA levels are also used for assessing functionalvitamin B12 deficiency. Vitamin B12 is essential forfetal neurodevelopment, particularly early inpregnancy. Undiagnosed maternal vitamin B12 deficiencymay be associated with adverse / outcomes,such as neural tube defects and intrauterine growthrestriction.[employer] utilized Multi-Modal Decomposition(MMD) analysis to establish first and second trimester-specific MMA reference intervals in , as givenbelow:MMA, First trimester (<13 wks gestation): 58-167 nmol/LMMA, Second trimester (13-23 wks gestation):63-241 nmol/LThis test was developed and its analytical performancecharacteristics have been determined by [employer]. It has not been cleared or approved by theFDA. This assay has been validated pursuant to the CLIAregulations and is used for clinical purposes.THIS TEST WAS PERFORMED AT:[employer]/[id number] [place] [id number] OMER MD,PHD 2025 2:43 PM EDT 2025 2:43 PM EDT us Generic External Data Provider LAB BLOOD ORDERAB LES Final Result [facility] [address] [place] [address] [phone] * CBC (2025 2:43 PM EDT) White Blood Count 5.6 4.8 - 10.8 X10*3/uL [facility] Red Blood Count 4.37 4.20 - 5.50 X10*6/uL [facility] Hemoglobin 13.3 12.0 - 16.0 g/dl [facility] Hematocrit 38.8 37.0 - 47.0 % [facility] Mean Corpuscular Volume 88.8 80.0 - 98.0 fL [facility] Mean Corpuscular Hemoglobin 30.4 27.0 - 33.0 pg [facility] Mean Corpuscular HGB Conc 34.3 31.0 - 35.0 g/dl [facility] Red Cell Distribution Width 12.9 11.0 - 16.0 % [facility] Platelet Count 256 160 - 400 X10*3/uL [facility] Mean Platelet Volume 9.8 9.4 - 12.3 fL [facility] NRBC Pct Auto 0.0 0.0 - 0.2 /100WBC [facility] NRBC Abs Auto 0.000 0.0 - 0.012 X10*3/uL [facility] 2025 2:43 PM EDT 2025 2:43 PM EDT us Generic External Data Provider LAB BLOOD ORDERAB LES Final Result [facility] [address] [place] [phone] * Homocysteine (2025 2:43 PM EDT) Homocysteine 5.0 < or = 11.0 umol/L [facility] Comment:Homocysteine is incr eased by functional deficiency offolate or vitamin B12. Testing for methylmalonic aciddifferentiates between these deficiencies. Other causesof increased homocysteine include renal failure, folateantagonists such as methotrexate and phenytoin, andexposure to nitrous oxide.Sarah Muse, et al., [employer] Director Med. 1999;131(5):331-9.THIS TEST WAS PERFORMED AT:[employer] [place] [id number] GUPTA MD 2025 2:43 PM EDT 2025 2:43 PM EDT us Generic External Data Provider LAB BLOOD ORDERAB LES Final Result Performing Organization Address [facility] Co de Phone Number [facility] [address] [place] [phone] * Hemoglobin A1c (2025 2:43 PM EDT) Hemoglobin A1c 5.7 <6.0 % [facility] Comment:Hemoglobin A1C Refer ence Range Adults: 4.8 - 6.0 % Non diabetic: < 6.0 % Goal: < 7.0 %Additional Action Suggested: > 8.0 %Note: Hemoglobin A1c results are invalid for patients with abnormal amounts of HbF. Blood transfusions may impact the HbA1c concentration in the patient sample. Estimated Average Glucose 117 mg/dL [facility] Comment:eAG = Estimated ave rage glucose which is %A1C expressed asaverage glucose, using the formula of the M4A-BafqcdvTyctbgm Glucose study (ADAG), Diabetes Care, Vol.31,#8,2007 2025 2:43 PM EDT 2025 2:43 PM EDT us Generic External Data Provider LAB BLOOD ORDERAB LES Final Result Performing Organization Address [facility] Co de Phone Number [facility] [address] [place] [phone] * Ferritin (2025 2:43 PM EDT) Pathologist [facility] Ferritin 93 10 - 250 ng/mL [facility] 2025 2:43 PM EDT 2025 2:43 PM EDT us Generic External Data Provider LAB BLOOD ORDERAB LES Final Result Performing Organization Address [facility] Co de Phone Number [facility] [address] [place] [address] [phone] * (ABNORMAL) Comprehensive Metabolic Panel (2025 2:43 PM EDT) Pathologist [facility] Sodium 138 135 - 145 mmol/L [facility] Potassium 3.6 3.3 - 5.1 mmol/L [facility] Chloride 108 96 - 108 mmol/L [facility] Carbon Dioxide 23 22 - 29 mmol/L [facility] Anion Gap 11(L) 12 - 20 [facility] Urea Nitrogen (BUN) 13 9 - 16 mg/dL [facility] Creatinine, Serum 0.51 0.5 - 1.4 mg/dL [facility] Estimated Glomerular Filt Rate >60 [facility] Comment:Chronic Kidney Disea se: Estimated GFR < 60 mL/min/1.40w8Dpcpqq Kidney Disease: Estimated GFR < 15 mL/min/1.73m2 Glucose 99 60 - 115 mg/dL [facility] Calcium 8.8 8.4 - 10.2 mg/dL [facility] Bilirubin, Total 0.5 0.0 - 1.0 mg/dL [facility] Aspartate Amino Transferase 28 5 - 31 U/L [facility] Alanine Aminotransferase 41(H) 0 - 31 U/L [facility] Total Protein 7.1 6.5 - 8.0 g/dL [facility] Albumin Level 4.2 3.5 - 5.0 g/dL [facility] Alkaline Phosphatase 76 39 - 117 U/L [facility] 2025 2:43 PM EDT 2025 2:43 PM EDT us Generic External Data Provider LAB BLOOD ORDERAB LES Final Result [facility] [address] [place] [phone] * (ABNORMAL) Urinalysis, Complete, with Reflex to Culture (2025 2:38 PM EDT) Only the most recent of2 resultswithin the time period is included. Color Urine Yellow [facility] Appearance Urine Clear [facility] PH 5.5 5.0 - 9.0 [facility] Glucose Urine UA Negative Negative mg/dL [facility] Urine Blood Moderate (2+)(A) Negative [facility] Specific [place] - Urine 1.015 1.005 - 1.025 [facility] Urine Protein Negative Neg-Trace mg/dL [facility] Urine Ketones Negative Negative mg/dL [facility] Nitrite Urine Negative Negative [facility] Leukocyte Esterase Urine Negative Negative [facility] RBC Urine 0-2 0 - 2 /HPF [facility] Urine WBC 0-5 0 - 5 /HPF [facility] Urine Squamous Epithelial Cell 0-2 0 - 2 /HPF [facility] Urine Bacteria None Seen None Seen [facility] Hyaline Casts, Urine 0-2 0 - 2 /LPF [facility] Urine 2025 2:38 PM EDT 2025 3:15 PM EDT Narrative [facility] - 2025 3:28 PM EDT Urine, Clean Catch us Clara Shearer MD LAB URINE ORDERABLES Final Resul t Performing Organization Address City/[facility] Co de Phone Number [facility] [address] [place] [address] [phone] * Albumin, Random Urine W/Creatinine (02/13/2025 4:15 PM EDT) Creatinine, Urine 84.01 mg/dL [facility] Microalbumin Urine 7.0 mg/L [facility] Microalbum Creatinine Ratio Ur 8.3 <30 ug/mg cr [facility] Comment:Albumin/Creatinine R atio Reference Ranges: Normal: < 30 ug/mg creatinine Microalbuminuria: 30 - 300 ug/mg creatinineClinical Albuminuria: > 300 ug/mg creatinine Urine 02/13/2025 4:15 PM EDT 02/13/2025 5:31 PM EDT us Clara Shearer MD LAB URINE ORDERABLES Final Resul t [facility] [address] [place] [phone] * BI Mammogram Screening Tomosynthesis Bilateral (10/04/2024 3:55 PM EDT) Anatomical Region Laterality Modality Breast Bilateral Mammography 10/04/2024 3:55 PM EDT Narrative 10/13/2024 6:12 PM EDT [facility] [address] [place] [address] Mammography Report Signed Patient: Thalia Martell MR#: [id number] 2088 : 1975 Acct:[id number] Age/Sex: 49 / F ADM Date: 10/04/24 Loc: MAMMO Attending Dr: Clara Shearer MD Ordering Physician: Clara Shearer MD Results: 1Negative Date of Service: 10/04/24 Follow Up: 1 Year From [facility] Mammogram Procedure(s): MM tomosynthesis screening BI Accession Number(s): [id number] cc: Clara Shearer MD EXAMINATION: MM SCREENING [...] by June Schrader DO in OV> 10/13/24 180 DD/ 1555 TD/TT: 10/04/24 1608 Geriatric Aide: Procedure Note Donotuseinterpreter, Image - [facility] [address] [place] [address] Mammography Report Signed Patient: Yoel Martell#: [id number] 2088 : 1975Acct:[id number] Age/Sex: 49 / FADM Date: 10/04/24 Loc: HO.MAMMO Attending Dr: Clara Shearer MD Ordering Physician: Clara Shearer MDResults: 1Negative Date of Service: 10/04/24Follow Up: 1 Year From [facility] in[facility] Mammogram Procedure(s): MM tomosynthesis screening BI Accession Number(s): [id number] cc: Clara Shearer MD EXAMINATION: MM SCREENING [...] by June Schrader DO in OV> 10/13/24 180 DD/ 1555 TD/TT: 10/04/24 1608 Geriatric Aide: Clara Shearer MD IMG BI PROCEDURES Edited Result - Final * Hepatitis Panel, General (12/11/2023 4:30 PM EDT) Hepatitis A IgM Nonreactive Nonreactive [facility] Comment:IgM antibodies to HEMPHILL V not detected; does not exclude earlyacute or recovered HAV infection. ~Hepatitis B Surface Antibody REACTIVE Nonreactive [facility] Comment:REACTIVE: > 11.99 mI U/mL Hepatitis B Core Antibody Nonreactive Nonreactive [facility] Hepatitis C Antibody Nonreactive Nonreactive [facility] Comment:Antibodies to HCV no t detected; does not exclude early acuteHCV infection. Hepatitis B Surface Ag Negative Negative [facility] 12/11/2023 4:30 PM EDT 12/11/2023 4:33 PM EDT Generic External Data Provider LAB BLOOD ORDERAB LES Final Result Performing Organization Address City/[facility] Co de Phone Number [facility] [address] [place] [address] [phone] * HIV-1 RNA, Quantitative, Real-Time PCR (12/15/2022 8:09 AM EDT) Pathologist [facility] HIV 1 RNA, QN PCR NOT DETECTED NOT DETECTED copies/mL [facility] HIV 1 RNA, QN PCR NOT DETECTED NOT DETECTED Log copies/mL [facility] Comment: This test was performed using Real-Time Polymerase Chain Reaction. Reportable Range: 20 copies/mL to 10,000,000 copies/mL (1.30 log copies/mL to 7.00 log copies/mL). Blood Venous blood specimen / Unknown 12/15/2022 8:09 AM EDT 12/15/2022 8:10 AM EDT Narrative [facility] - 12/23/2022 6:53 PM EDT FASTING:NO FASTING: NO Yany Cosby DECORATOR MANNEQUIN LAB BLOOD ORDERABLES Final Res ult [facility] [address], [place] [address] [facility] [address] [place] [phone] * THINPREP PAP (11/13/2020 4:51 PM EDT) Clinical Information: None given [facility] COMMENT SEE COMMENT [facility] Comment: EXPLANATORY NOTE: The Pap is a screening test for cervical cancer. It is not a diagnostic test and is subject to false negative and false positive results. It is most reliable when a satisfactory sample, regularly obtained, is submitted with relevant clinical findings and history, and when the Pap result is evaluated along with historic and current clinical information. Shoulder Boner : SEE COMMENT [facility] Comment: RK, CT(ASCP) CT screening location: [place] [address] Interpretation/R esult: Negative for intraepithelial lesion or malignancy. [facility] LMP: NONE [facility] Prev. BX: NONE [facility] Prev. PAP: NONE [facility]IV[facility] Review Shoulder Boner : SEE COMMENT [facility] Comment: BLC,CT(ASCP) CT screening location: [place] [address] SOURCE: None given [facility] Statement Of Adequacy: SEE COMMENT [facility] Comment: Satisfactory for evaluation. Endocervical/transformation zone component present. Age and/or menstrual status not provided 11/13/2020 4:51 PM EDT us Ginette Her NP LAB PATHOLOGY ORDERABLES Final Result [facility] [address] * HPV GENOTYPES 16,18/45 (11/13/2020 4:51 PM EDT) HPV 16 RNA NOT DETECTED NOT DETECTED [facility] HPV 18/45 RNA NOT DETECTED NOT DETECTED [facility] Comment: Methodology: Piece Dye Worker Mediated Amplification The analytical performance characteristics of this assay have been determined by [facility]. The modifications have not been cleared or approved by the FDA. This assay has been validated pursuant to the CLIA regulations and is used for clinical purposes. 11/13/2020 4:51 PM EDT us Ginette Her NP LAB CYTOLOGY ORDERABLES Final R esult [facility] [address] from Last 3 Months or Most Recently Relevant [place] [id number] [facility] 2 DENTAL - HSN FULL (MEDICAID) [facility] ADULT Care Teams Nsh Teacher Relationship Specialty Start Date End Date Clara Shearer MD [address] [place] [phone] PCP - General Family Medicine 07/24/18
--- OUTSIDE RECORDS SUMMARY | 2025-03-20 15:40 | XMS_ITS | Encounter Summary ---
Author Organization [facility] Address [address] [place] [address] Phone Care Team Providers Care Vocational Psychologist Name Role Phone Clara Shearer MD Primary Care Provider [phone] Encounter Details Date Type Department Care Team (Late st Contact Info) Description 06/19/2023 Procedure Pass [facility], Ct Scan - [address] [address] Social History Tobacco Use Types Packs/Day Years [...] 06/19/2023 8:16 AM Wandy Shelby RN * [place] Suicide Severity Rating Scale (Screener/Recent Self-Report) Question [...] documented as of this encounter Care Teams Vocational Psychologist Relationship Specialty Start Date End Date Clara Shearer MD [address] [place] [phone] PCP - General Family Medicine 02/16/22 documented as of this encounter Additional Source Comments The information contained in this document represents components of the legal health record. It is not the complete legal health record.[facility]
== END 2025-03-20 15:11 | disposition home or self-care (01) ==
LOC: HO.ACS 15:01
PROVIDERS: PCP Family Medicine; Visit Provider Internal Medicine Medical Oncology
DX: Z79.01 Long term (current) use of anticoagulants (principal)

== ENCOUNTER → 2025-03-20 15:01 | Outpatient (BNVA) | payer OTHER, SELFPAY | PROVIDERS: PCP Family Medicine; Visit Provider Internal Medicine Medical Oncology | DX: Z95.2 Presence of prosthetic heart valve (principal); Z79.01 Long term (current) use of anticoagulants; Z51.81 Encounter for therapeutic drug level monitoring | CPT/HCPCS: 85610; 99211 ==

== ENCOUNTER → 2025-03-31 19:30 | Outpatient (REF) | payer OTHER, SELFPAY ==
--- OUTSIDE RECORDS SUMMARY | 2025-03-31 22:06 | XMS_ITS | Encounter Summary ---
Author Organization [employer] Address [address] [facility] 7t [place] [address] Care Team Providers Care Paving Machine Operator Name Role Phone Clara Shearer MD Primary Care Provider [phone] Encounter Details Date Type Department Care Team ([facility] st Contact Info) Description 01/22/2024 Orders Only [facility] MED[facility] [address] [place], [place] [phone] Clara Shearer MD [address] [place], [place] [phone] History of mechanical aortic valve replacement Social [...] 3:45 PM EDT Office Visit [facility] MED[facility] [address] [place], [place] [phone] Clara Shearer MD [address] [place] [address] 05/08/2025 8:00 AM EDT Office Visit [facility] ADULT DENTAL [address] [place], [place] [phone] Katt Espinoza [address] [place] [address] documented as of this encounter Visit Diagnoses Diagnosis History of mechanical aortic valve replacement documented in this encounter Additional Health Concerns Assessment Noted Time PHQ-9 Depression Total Score: 0 10/17/19 24 3:45 PM EDT documented as of this encounter Care Teams Paving Machine Operator Relationship Specialty Start Date End Date Clara Shearer MD [address] [place], [place] [phone] PCP - General Family Medicine 07/24/18 documented as of this encounter
--- OUTSIDE RECORDS SUMMARY | 2025-03-31 22:07 | XMS_ITS | Encounter Summary ---
Author Organization [employer] Address [address] [place] [address] 7t [place] [address] Care Team Providers Care Pants Presser Name Role Phone Clara Shearer MD Primary Care Provider [phone] Reason for Referral * Imaging (Routine) - Authorized Specialty Diagnoses / Procedures Referred By Contac t Referred To Contact Radiology Diagnoses Hematuria, unspecified type Procedures US RENAL BI Clara Shearer MD [address] [place] [address] Phone: tel: fax: [address] Phone: tel: fax: Referral ID Status Reason Start Date Expiration Date V isits Requested Visits Authorized [id number] Authorized 02/21/2025 02/21/2026 1 1 * Imaging (Routine) - Authorized Specialty Diagnoses / Procedures Referred By Contac t Referred To Contact Radiology Diagnoses Hematuria, unspecified type Procedures US BLADDER Clara Shearer MD [address] [place] [address] Phone: tel: fax: [address] Phone: tel: fax: Referral ID Status Reason Start Date Expiration Date V isits Requested Visits Authorized [id number] Authorized 02/21/2025 02/21/2026 1 1 Encounter Details Date Type Department Care Team (Late st Contact Info) Description 02/21/2025 Orders Only [facility] [address] [facility] [place] [address] Clara Shearer MD [address] [place] [address] Hematuria, unspecified type (Primary Dx) Social History [...] Description 04/01/2025 3:45 PM EDT Office Visit [facility] [address] [place] [address] Clara Shearer MD [address] [place] [address] 05/08/2025 8:00 AM EDT Office Visit [facility] ADULT DENTAL [address] [place] [address] Katt Espinoza [address] [place] [address] Scheduled Orders Name Type Priority Associated Diagnoses [...] documented as of this encounter Care Teams Pants Presser Relationship Specialty Start Date End Date Clara Shearer MD [address] [place] [phone] PCP - General Family Medicine 07/24/18 documented as of this encounter
--- OUTSIDE RECORDS SUMMARY | 2025-03-31 22:07 | XMS_ITS | Encounter Summary ---
Author Organization [employer] Address [address] [facility] [address], [place] [address] Care Team Providers Care Lace Weaver Name Role Phone Clara Shearer MD Primary Care Provider [phone] Reason for Referral * Consultation (Routine) - Closed Specialty Diagnoses / Procedures Referred By Contac t Referred To Contact Physical Therapy Diagnoses Right hip pain Chronic right-sided low back pain, unspecified whether sciatica present Clara Shearer MD [address] [place] [address] Phone: tel: fax: AT Physical Therapy - [address] [address] Phone: tel: fax: Referral ID Status Reason Start Date Expiration Date V isits Requested Visits Authorized [id number] Closed Specialty Services Required 11/14/2023 11/13/2024 1 1 Encounter Details Date Type Department Care Team (Late st Contact Info) Description 11/14/2023 Orders Only [facility] [address] [place], [place] [phone] Clara Shearer MD [address] [place], [place] [phone] Right hip pain (Primary Dx); Chronic right-sided [...] Description 04/01/2025 3:45 PM EDT Office Visit [facility] [address] [place] [address] Clara Shearer MD [address] [place] [address] 05/08/2025 8:00 AM EDT Office Visit [facility]ULT [facility] [address] [place] [address] Katt Espinoza [address] [place] [address] Scheduled Referrals Name Type Priority Associated Diagnoses [...] PM EDT Narrative 11/25/2023 8:18 AM EDT [address] [address] XRay Report Signed Patient: Thalia Martell MR#: [id number] 2088 : 1975 Acct:[id number] Age/Sex: 48 / F ADM Date: 11/16/23 Loc: HO.XRAY Attending Dr: Clara Shearer MD Ordering Physician: Clara Shearer MD Date of Service: 11/16/23 Procedure(s): XR thoracic spine 2V Accession Number(s): [id number] cc: Clara Shearer MD EXAMINATION: XR THORACOLUMBAR [...] MD in OV> 11/25/23814 DD/ 1549 TD/TT: Line Person: QUINN Procedure Note Donotarmindainterpreter, Image - 11/25/[address] [address] XRay Report Signed Patient: Yoel Martell#: [id number] 2088 : 1975Acct:[id number] Age/Sex: 48 / FADM Date: 11/16/23 Loc: HO.XRAY Attending Dr: Clara Shearer MD Ordering Physician: Clara Shearer MD Date of Service: 11/16/23 Procedure(s): XR thoracic spine 2V Accession Number(s): [id number] cc: Clara Shearer MD EXAMINATION: XR THORACOLUMBAR [...] Campos MD inOV> 11/25/23814 DD/ 1549 TD/TT: Line Person: QUINN Clara Shearer MD IMG XR PROCEDURES [...] documented as of this encounter Care Teams Lace Weaver Relationship Specialty Start Date End Date Clara Shearer MD [address] [place] [address] PCP - General Family Medicine 07/24/18 documented as of this encounter
--- OUTSIDE RECORDS SUMMARY | 2025-03-31 22:07 | XMS_ITS | Encounter Summary ---
Author Organization [employer] Address [address] [place] [address] 7 [place] [address] Care Team Providers Care Green Meat Packer Name Role Phone Clara Shearer MD Primary Care Provider [phone] Reason for Referral * Imaging (Routine) - Closed Specialty Diagnoses / Procedures Referred By Contac t Referred To Contact Radiology Diagnoses Metabolic dysfunction-associated steatotic liver disease (MASLD) Procedures US Abdomen Comp w elastography Clara Shearer MD [address] [place] [address] Phone: tel: fax: [address] Phone: tel: fax: Referral ID Status Reason Start Date Expiration Date Visits Re quested Visits Authorized [id number] Closed 11/17/2023 11/16/2024 1 1 Encounter Details Date Type Department Care Team (Late st Contact Info) Description 11/17/2023 Orders Only [facility] [address] [place], [place] [phone] Clara Shearer MD [address] [place], [place] [phone] Metabolic dysfunction-associated steatotic liver disease (MASLD) (Primary [...] Description 04/01/2025 3:45 PM EDT Office Visit [facility] [address] [place] [address] Clara Shearer MD [address] [place] [address] 05/08/2025 8:00 AM EDT Office Visit [facility] ADULT DENTAL [address] [place] [address] Katt Espinoza [address] [place] [address] documented as of this encounter Procedures Procedure Name Priority Date/Time Associated Diagnosis Comments US ABDOMEN COMPLETE WITH ELASTOGRAPHY Routine 12/05/2023 9:26 AM EDT Metabolic dysfunction-associa ebony steatotic liver disease (MASLD) documented in this encounter Results * US Abdomen Comp w elastography (12/05/2023 9:26 AM EDT) Anatomical Region Laterality Modality Abdomen Ultrasound 12/05/2023 9:26 AM EDT Narrative 12/12/2023 9:41 AM EDT [address] [address] Ultrasound Report Signed Patient: Thalia Martell MR#: [id number] : 1975 Acct:[id number] Age/Sex: 48 / F ADM Date: 12/05/23 Loc: HO.US Attending Dr: Clara Shearer MD Ordering Physician: Clara Shearer MD Date of Service: 12/05/23 Procedure(s): US abdomen comp w elastography Accession Number(s): [id number] cc: Clara Shearer MD EXAMINATION: US COMPLETE [...] MD in OV> 12/12/2337 DD/ 5 TD/TT: Drawing Kiln Supervisor: SS Procedure Note Donotuseinterpreter, Image - 12/12/2023 [place] [address] Ultrasound Report Signed Patient: Yoel Martell#: [id number] : 1975Acct:[id number] Age/Sex: 48 / FADM Date: 12/05/23 Loc: HO.US Attending Dr: Clara Shearer MD Ordering Physician: Clara Shearer MD Date of Service: 12/05/23 Procedure(s): US abdomen comp w elastography Accession Number(s): [id number] cc: Clara Shearer MD EXAMINATION: US COMPLETE [...] MD in OV> 12/12/2337 DD/ 5 TD/TT: Drawing Kiln Supervisor: SS us Clara Shearer MD IMG US PROCEDURES Final Result documented in this encounter Visit Diagnoses Diagnosis Metabolic dysfunction-associated steatotic liver disease (MASLD)- Primary documented in this encounter Additional Health Concerns Assessment Noted Time PHQ-9 Depression Total Score: 0 10/17/19 24 3:45 PM EDT documented as of this encounter Care Teams Green Meat Packer Relationship Specialty Start Date End Date Clara Shearer MD [address] [place] [address] PCP - General Family Medicine 07/24/18 documented as of this encounter
--- OUTSIDE RECORDS SUMMARY | 2025-03-31 22:07 | XMS_ITS | Encounter Summary ---
Author Organization [facility] Address [address] [place] [address] Phone Care Team Providers Care Muck Hauler Name Role Phone Unknown, Unknown Primary Care Provider Clara Thompson MD Primary Care Provider [phone] Clara Shearer MD Primary Care Provider [phone] Encounter Details Date Type Department Care Team (Late st Contact Info) Description 02/24/2018 Procedure Pass [facility], Ct Scan - [facility] [address] [place] [address] Social History Tobacco Use Types Packs/Day Years [...] documented as of this encounter Care Teams Muck Hauler Relationship Specialty Start Date End Date Unknown, Unknown, PCP - General 02/24/18 11/09/20 Clara Shearer MD [address] [place] [address] PCP - General Family Medicine 11/10/20 02/15/22 Clara Shearer MD [address] [place] [address] PCP - General Family Medicine 02/16/22 documented as of this encounter Additional Source Comments The information contained in this document represents components of the legal health record. It is not the complete legal health record.[facility]
--- OUTSIDE RECORDS SUMMARY | 2025-03-31 22:07 | XMS_ITS | Encounter Summary ---
Author Organization [facility] Address [address] [place] [address] Phone Care Team Providers Care Outreach Counselor Name Role Phone Clara Shearer MD Primary Care Provider [phone] Encounter Details Date Type Department Care Team (Late st Contact Info) Description 12/04/2022 Procedure Pass [facility], Ct Scan - [address] [address] Social History Tobacco Use Types Packs/Day Years [...] documented as of this encounter Care Teams Outreach Counselor Relationship Specialty Start Date End Date Clara Shearer MD [address] [place] [address] PCP - General Family Medicine 02/16/22 documented as of this encounter Additional Source Comments The information contained in this document represents components of the legal health record. It is not the complete legal health record.[facility]
--- OUTSIDE RECORDS SUMMARY | 2025-03-31 22:07 | XMS_ITS | Encounter Summary ---
Author Organization [facility] Address [address] [place] [address] Phone Care Team Providers Care Painter Maintenance Name Role Phone Unknown, Unknown Primary Care Provider Clara Thompson MD Primary Care Provider [phone] Clara Shearer MD Primary Care Provider [phone] Encounter Details Date Type Department Care Team (Late st Contact Info) Description 11/09/2020 Procedure Pass [facility], Ct Scan - [facility] [address] [place] [address] Social History Tobacco Use Types Packs/Day Years [...] 8:03 PM EDT Marysol Hurt RN * [place] Suicide Severity Rating Scale (Screener/Recent Self-Report) Question [...] documented as of this encounter Care Teams Painter Maintenance Relationship Specialty Start Date End Date Unknown, Unknown, MD PCP - General 02/24/18 11/09/20 Clara Shearer MD [address] [place] [address] PCP - General Family Medicine 11/10/20 02/15/22 Clara Shearer MD [address] [place] [address] PCP - General Family Medicine 02/16/22 documented as of this encounter Additional Source Comments The information contained in this document represents components of the legal health record. It is not the complete legal health record.[facility]
--- OUTSIDE RECORDS SUMMARY | 2025-03-31 22:07 | XMS_ITS | Encounter Summary ---
Author Organization [facility] Address [address] [place] [address] Phone Care Team Providers Care Affirmative Action Specialist Name Role Phone Clara Shearer MD Primary Care Provider [phone] Encounter Details Date Type Department Care Team (Late st Contact Info) Description 12/04/2022 Procedure Pass [facility], Ct Scan - [address] [address] Social History Tobacco Use Types Packs/Day Years [...] documented as of this encounter Care Teams Affirmative Action Specialist Relationship Specialty Start Date End Date Clara Shearer MD [address] [place] [address] PCP - General Family Medicine 02/16/22 documented as of this encounter Additional Source Comments The information contained in this document represents components of the legal health record. It is not the complete legal health record.[facility]
--- OUTSIDE RECORDS SUMMARY | 2025-03-31 22:08 | XMS_ITS | Encounter Summary ---
Author Organization [facility] Address [address] [place] [address] Phone Care Team Providers Care Web Services Architect Name Role Phone Clara Shearer MD Primary Care Provider [phone] Encounter Details Date Type Department Care Team (Late st Contact Info) Description 08/19/2022 Procedure Pass [place] Admitting Dept - Virtual Department [address] [place] [address] Social History Tobacco Use Types Packs/Day Years [...] as of this encounter Care Teams Web Services Architect Relationship Specialty Start Date End Date Clara Shearer MD [address] [place] [address] PCP - General Family Medicine 02/16/22 documented as of this encounter Additional Source Comments The information contained in this document represents components of the legal health record. It is not the complete legal health record.[facility]
--- OUTSIDE RECORDS SUMMARY | 2025-03-31 22:08 | XMS_ITS | Encounter Summary ---
Author Organization [employer] Address [address] [facility] [address], [place] [address] Care Team Providers Care Lift Team Technician Name Role Phone Clara Shearer MD Primary Care Provider [phone] Reason for Visit * Reason Onset Date Comments Letter for School/Work 08/02/2022 Encounter Details Date Type Department Care Team ([facility] st Contact Info) Description 08/02/2022 Telephone [facility] [address] [place] [address] Clara Shearer MD [address] [place] [address] Letter for School/Work Social History Tobacco Use [...] a upcoming procedure on 08-19-22. Fax number [phone] Any question please contact Ambreen at [phone] ext [phone] * Telephone Encounter - Khang Garcia - 08/04/2022 2:41 PM EST Tc from [place] with [facility] requesting a call regarding message below Please contact pankaj at [phone] * Telephone Encounter - Ronda Mahan LPN - 08/04/2022 2:41 PM EST Kelly, this should be done upstairs we do not do letters regarding medication stop or start. Please discuss with Dr. Shearer on what she wants and you can call [facility] to fax that order/letteror if they will take verbal orders from you that is even easier. * Telephone Encounter - Kelly Campuzano RN - 08/02/2022 3:33 PM EST Pt having procedure (dilation and curettage with hysteroscopy to place mirena) at [facility] 08/19/22. They are requesting a letter stating when pt should stop and restart coumadin (how many days before and after). * Telephone Encounter - Khang Garcia - 08/02/2022 2:48 PM EST Tc from [place] with [facility] requesting a letter stating when pt will be stopping medication ( warfarin 2 mg ) prior to OP Please contact claudia at [phone] ext [phone] documented in this encounter Plan of Treatment Upcoming Encounters Date Type Department Care Team (Late st Contact Info) Description 04/01/2025 3:45 PM EDT Office Visit [facility] [address] [place] [address] Clara Shearer MD [address] [place] [address] 05/08/2025 8:00 AM EDT Office Visit [facility] ADULT DENTAL [address] [place], [place] [phone] Jignesh Espinozaaris [address] [place] [address] documented as of this encounter Visit Diagnoses Not on filedocumented in this encounter Care Teams Lift Team Technician Relationship Specialty Start Date End Date Clara Shearer MD [address] [place] [address] PCP - General Family Medicine 07/24/18 documented as of this encounter
--- OUTSIDE RECORDS SUMMARY | 2025-03-31 22:08 | XMS_ITS | Encounter Summary ---
Author Organization [employer] Address [address] [facility] 7t [place] [address] Care Team Providers Care Restorative Rehab Aide Name Role Phone Clara Shearer MD Primary Care Provider [phone] Reason for Visit * Reason Onset Date Comments rs prophy 05/22/2023 Encounter Details Date Type Department Care Team ([facility] st Contact Info) Description 05/22/2023 Telephone [facility] AD[facility] [address] [place], [place] [phone] Olga, Katt [address] [place] [address] rs prophy Social History Tobacco Use Types [...] 04/01/2025 3:45 PM EDT Office Visit [facility] [address] [place] [address] Clara Shearer MD [address] [place] [address] 05/08/2025 8:00 AM EDT Office Visit [facility] ADULT DENT[facility] [address] [place] [address] Katt Espinoza [address] [place] [address] documented as of this encounter Visit Diagnoses Not on filedocumented in this encounter Additional Health Concerns Assessment Noted Time PHQ-9 Depression Total Score: 5 03/07/20 23 3:27 PM EDT documented as of this encounter Care Teams Restorative Rehab Aide Relationship Specialty Start Date End Date Clara Shearer MD [address] [place] [address] PCP - General Family Medicine 07/24/18 documented as of this encounter
--- OUTSIDE RECORDS SUMMARY | 2025-03-31 22:08 | XMS_ITS | Clinical Summary ---
Author Organization [facility] Address [address] [place] [address] Phone Care Team Providers Care Terrazzo Finisher Helper Name Role Phone Clara Shearer MD Primary Care Provider [phone] Allergies No known active allergies Medications cholecalciferol [...] pancreatitis in November 2022 - following with [facility], last seen in Feb 2023 - [...] on warfarin - previously prescribed metoprolol by associate professor of art history; no longer on the medication due to hypotension / dizziness - continue following with associate professor of art history, [facility] Dr Haynes - last TTE in January 2022, mild mitral valve stenosis - continue current treatment plan per cardiology Chronic anticoagulation 11/22/2022 Overview (11/28/2023): Last Assessment & Plan: - indication: Aortic valve replacement - medication warfarin - goal INR 2-3 - followed by [facility] anticoagulation clinic - last INR was 2.0 on 03/01/23 - continue current management plan Abnormal uterine bleeding 11/08/2022 Overview (11/28/2023): Last Assessment & Plan: s/p Endometrial Curetting's, polyp, benign -Pt has follow-up appointment with CLAIM REPRESENTATIVE -Pt is on Coumadin -Pt requested Hysterectomy, pt will follow-up with CLAIM REPRESENTATIVE with possible hysterectomy in future Vitamin D deficiency 12/04/2018 Overview (11/28/2023): Last Assessment & Plan: -continue vitamin D supplement History of mechanical aortic valve replacement 0 04/07/2015 Overview (11/28/2023): Last Assessment & Plan: - 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 Mechanical aortic valve functioning normally. Moderate mitral valve stenosis. No regurgitation. - Continue warfarin - Continue SBE prophylaxis. Allergic rhinitis 12/09/2013 Aortic valve regurgitation 07/25/2013 Overview (11/28/2023): Last Assessment & Plan: - [facility], last seen in Aug 2023 - [...] EDT - 02/23/2025 2:40 AM EDT Emergency [facility] Emergency [address] [place] [address] Discharge Disposition: Home or Self Care 01/09/2025 1:12 PM EDT - 01/09/2025 3:27 PM EDT Emergency [facility] Emergency [address] [place] [address] Discharge Disposition: Home or Self Care from [...] HEPATITIS C SCREENING 1995 HIV ONE-TIME SCREENING (18-65 YEARS) 1995 PAP SMEAR 1998 COLOGUARD 2022 COLONOSCOPY 2022 COLORECTAL CANCER SCREENING 2022 FIT TEST 2022 FOBT 2022 SIGMOIDOSCOPY 2022 VIRTUAL COLONOSCOPY 2022 MAMMOGRAM 12/23/2024 12/23/2022, 08/2022, 09/05/2019 INFLUENZA VACCINE (#1) 2025 , 07/12/2021, 07/02/2018, Additional history exists COVID-19 VACCINE (2024- season) 2025 05/09/2023, 11/06/2020, 10/09/2020 SCREENING FOR DIABETES 10/16/2026 10/17/2023, 2020 LIPID PANEL 12/16/2027 12/15/2022 IUD 08/19/2030 08/19/2022 Adult Td,Tdap Booster 07/12/2031 07/12/2021, 010 PNEUMOCOCCAL VACCINES (0-49 years) Aged Out 03/07/2023, 03/07/2010 No longer eligibl e based on patient's age to complete this topic SMOKING STATUS SCREENING (Once After 26 Yrs) Completed 02/22/2025 HEPATITIS A [...] this topic Medical Devices Implanted Type Area Continuous Crusher Operator Device Identifier Shelf Expiration Date Model / Serial / Lot Prosthetic Valve Prosthetic Valve Aorta Description:Aortic valve rep lacement in 2009 pt does not know which type of aortic valve was implanted Device Contraceptive 52mg Iud Mirena - Must Order In Multiples Of 5 - [id number] Implanted:Qty: 1 on 08/19/2022 by Ronald Estrada MD at [facility] N/A: Uterus [email or web address] 06/22/2024 [id number] / / [id number] Procedures Procedure Name Priority Date/Time Associated Diagnosis Comments COVID PANDEMIC RESPIRATORY VIRAL ORDER (PRO) STAT 02/22/2025 11:01 PM EDT RAPID GROUP A STREP SCREEN STAT 02/22/2025 11:01 PM EDT from Last 3 Months Results * (ABNORMAL) Rapid Group A Strep Screen (02/22/2025 11:01 PM EDT) RAPID STREP SCREEN Positive(A ) Negative [facility] Other (Throat) 02/22/2025 11 :01 PM EDT 02/22/2025 11:08 PM EDT Manny Castro MD MICROBIOLOGY - NERAL ORDERABLES Final Result Performing Organization Address [facility] de Phone Number [address] [address] * COVID Pandemic Respiratory Viral Order (PRO) (02/22/2025 11:01 PM EDT) Test Ordered Rapid COVID has been ordered [facility] Specimen Source/Description NASAL [facility] SARS-CoV 2 (COVID-19) PCR Not Detected Not Detected [facility] Comment: SARS-CoV-2 not detected Negative results do not preclude SARS-CoV-2 infection and should not be used as the sole basis for patient management decisions. Negative results must be combined with clinical observations, patient history, and epidemiological information. Other (Nasopharyngeal swab) 02/22/2025 11:01 PM EDT 02/22/2025 11:08 PM EDT Manny Castro MD BODY FLUIDS AND S TOOLS ORDERABLES Final Result Performing Organization Address [facility] Co de Phone Number [address] [address] from Last 3 Months Insurance [facility] NON NSPG PCP SILVER MYLES CONNECTORCARE [employer]LL[employer] NON NSPG PCP SILVER CLARITY CONNECTORCARE DRUMOREENSE NON NSPG PCP SILVER CLARITY CONNECTORCARE DRUMOREENSE NON NSPG PCP SILVER CLARITY CONNECTORCARE WELLSENSE NON NSPG PCP SILVER CLARITY CONNECTORCARE DRUMOREENSE NON NSPG PCP SILVER CLARITY CONNECTORCARE DRUMOREENSE NON NSPG PCP SILVER CLARITY CONNECTORCARE [facility] NON NSPG PCP SILVER CLARITY CONNECTORCARE [facility] NON NSPG PCP SILVER CLARITY CONNECTORCARE Advance Directives For more information, please contact: [phone] (9AM - 5PM Ana Lilia/[facility], Monday-Monday) * Full Code (Latest Code Status on File) Date Activated Date Inactivated Comments 08/19/2022 9:51 AM Question Answer Comments Code Status Confirmed With: Patient Care Teams Terrazzo Finisher Helper Relationship Specialty Start Date End Date Clara Shearer MD [address] [place] [address] PCP - General Family Medicine 02/16/22 Additional Source Comments The information contained in this document represents components of the legal health record. It is not the complete legal health record.[facility]
--- OUTSIDE RECORDS SUMMARY | 2025-03-31 22:08 | XMS_ITS | Encounter Summary ---
Author Organization [facility] Address [address] [place] [address] Phone Care Team Providers Care Disability Liaison Officer Name Role Phone Clara Shearer MD Primary Care Provider [phone] Encounter Details Date Type Department Care Team (Late st Contact Info) Description 06/19/2023 Procedure Pass [facility], Ct Scan - [address] [address] Social History Tobacco Use Types Packs/Day Years [...] 06/19/2023 8:16 AM Wandy Shelby RN * [place] Suicide Severity Rating Scale (Screener/Recent Self-Report) Question [...] documented as of this encounter Care Teams Disability Liaison Officer Relationship Specialty Start Date End Date Clara Shearer MD [address] [place] [address] PCP - General Family Medicine 02/16/22 documented as of this encounter Additional Source Comments The information contained in this document represents components of the legal health record. It is not the complete legal health record.[facility]
--- OUTSIDE RECORDS SUMMARY | 2025-03-31 22:08 | XMS_ITS | Encounter Summary ---
Author Organization [employer] Address [address] [facility] [address] [place] [address] Care Team Providers Care Manager Mall Name Role Phone Clara Shearer MD Primary Care Provider [phone] Encounter Details Date Type Department Care Team (Late st Contact Info) Description 07/20/[address] [facility] [address] [place], [place] [phone] Clara Shearer MD [address] [place] [address] Social History Tobacco Use Types Packs/Day Years [...] Description 04/01/2025 3:45 PM EDT Office Visit [facility] [address] [place], [place] [phone] Clara Shearer MD [address] [place] [address] 05/08/2025 8:00 AM EDT Office Visit [facility] ADULT DENTAL [address] [place], [place] [phone] Katt Espinoza [address] [place] [address] documented as of this encounter Visit Diagnoses Not on filedocumented in this encounter Care Teams Manager Mall Relationship Specialty Start Date End Date Clara Shearer MD [address] [place] [address] PCP - General Family Medicine 07/24/18 documented as of this encounter
--- OUTSIDE RECORDS SUMMARY | 2025-03-31 22:08 | XMS_ITS | Encounter Summary ---
Author Organization [employer] Address [address] [facility] 7t [place] [address] Care Team Providers Care Glove Parts Cutter Name Role Phone Clara Shearer MD Primary Care Provider [phone] Reason for Visit * Reason Onset Date Comments Nurse Triage 06/05/2023 Encounter Details Date Type Department Care Team ([facility] st Contact Info) Description 06/05/2023 Telephone [facility] [address] [place], [place] [phone] Clara Shearer MD [address] [place], [place] [phone] Nurse Triage Social History Tobacco Use Types [...] 06/05/2023 4:47 PM EST Triage call with [place] Salt Machine Operator [place] [id number] Pt reports headaches which have started 2 [...] to try this. Pt will come to [facility] tomorrow 06/06/23 to be seen by provider. [...] Nausea as well Please contact pt at [phone] Syrian Speaker. documented in this encounter Plan of Treatment Upcoming Encounters Date Type Department Care Team (Late st Contact Info) Description 04/01/2025 3:45 PM EDT Office Visit [facility] [address] [place] [address] Clara Shearer MD [address] [place] [address] 05/08/2025 8:00 AM EDT Office Visit [facility] ADULT DENTAL [address] [place] [address] Katt Espinoza [address] [place] [address] documented as of this encounter Visit Diagnoses Not on filedocumented in this encounter Additional Health Concerns Assessment Noted Time PHQ-9 Depression Total Score: 5 03/07/20 23 3:27 PM EDT documented as of this encounter Care Teams Glove Parts Cutter Relationship Specialty Start Date End Date Clara Shearer MD [address] [place] [address] PCP - General Family Medicine 07/24/18 documented as of this encounter
--- OUTSIDE RECORDS SUMMARY | 2025-03-31 22:08 | XMS_ITS | Encounter Summary ---
Author Organization [facility] Address [address] [place] [address] Phone Care Team Providers Care Labor Economics Professor Name Role Phone Clara Shearer MD Primary Care Provider [phone] Encounter Details Date Type Department Care Team (Late st Contact Info) Description 06/19/2023 Procedure Pass [facility], Ct Scan - [address] [address] Social History Tobacco Use Types Packs/Day Years [...] 06/19/2023 8:16 AM Wandy Shelby RN * [place] Suicide Severity Rating Scale (Screener/Recent Self-Report) Question [...] documented as of this encounter Care Teams Labor Economics Professor Relationship Specialty Start Date End Date Clara Shearer MD [address] [place] [id number] PCP - General Family Medicine 02/16/22 documented as of this encounter Additional Source Comments The information contained in this document represents components of the legal health record. It is not the complete legal health record.[facility]
--- OUTSIDE RECORDS SUMMARY | 2025-03-31 22:08 | XMS_ITS | Encounter Summary ---
Author Organization [facility] Address [address] [place] [address] [address] [place] [address] Care Team Providers Care Travel Pta Name Role Phone Clara Shearer MD Primary Care Provider [phone] Encounter Details Date Type Department Care Team (Latest Contact Info) Description 09/26/2019 Abstract [facility] CONVERSIONS Dental, Provider, DDS Social History [...] Description 04/01/2025 3:45 PM EDT Office Visit [facility] MEDICINE [address] [place] [address] Clara Shearer MD [address] [place] [address] 05/08/2025 8:00 AM EDT Office Visit [facility] ADULT DENTAL [address] [place] [address] Katt Espinoza [address] [place] [address] documented as of this encounter Visit Diagnoses Not on filedocumented in this encounter Care Teams Travel Pta Relationship Specialty Start Date End Date Clara Shearer MD [address] [place] [id number] PCP - General Family Medicine 07/24/18 documented as of this encounter
--- OUTSIDE RECORDS SUMMARY | 2025-03-31 22:08 | XMS_ITS | Clinical Summary ---
Author Organization [facility] Address [address] [place] [address] Care Team Providers Care Non Garment Sewing Machine Operator Name Role Phone Manfred Clara Primary Care Provider [phone] Allergies No known active allergies Medications aspirin [...] DTaP,Tdap,and Td Vaccines (1 - Tdap) 1999 Alcohol/Substance Use Screening 07/24/2024 COVID-19 Vaccine (3 - 2024-2 6 season) 2025 11/06/2020, 10/09/2020 Influenza Vaccine (#1) 2025 RSV Vaccine (60+ [...] to Health Maintenance Results * Due to [facility] law, this organization might not be sharing negative HIV tests. * Pap (12/17/2020 2:37 PM EDT) Specimen Adequacy Satisfactory for evaluation [facility] MANUAL 1 5:02 PM EDT [facility] Pathologist Cytology Interpretation Negative for intraepithelial lesion or malignancy. [facility] MANUAL 1 5:02 PM EDT [facility] at 1702 EDT Comment:This is the result o f a morphological screening test with an inherent possibility of a false negative interpretation. Chuck Wagon Cook Statement This Pap test was examined by the [facility], [employer], [place], [place]. This Pap test was examined in accordance with the [facility] Cytopathology Laboratory written policy, which incorporates all CLIA mandates. Screening guidelines can be found in Am J Clin Pathol 2012;137:516-542. We endorse the practice guidelines developed by ASCCP and published in the Journal Lower Genital Tract Disease 17(5):S1-S27 (2013). [facility] MANUAL 1 5:02 PM EDT [employer] [facility] Clinical History Hemat[facility]ra ASS MANUAL 1 5:02 PM EDT [facility]ettics[facility] [employer] [facility] Resulting Agency Case was signed out at [facility], Department of Pathology, [employer] 3 CLIA [id number] [facility] MANUAL 1 5:02 PM EDT [facility] [employer] [facility] Report Header Gynecologic Cytology Report Case: [id number] Authorizing Provider: Susan Girard Collected: 12/17/2020 1607 Ordering Location: [facility] Received: 12/17/2020 1626 [facility] Obstetrics and Gynecology First Screen: Sissy Dooley Specimen: Screening Thin[facility] Pap, Cervix/Endocervix 5:02 PM EDT [facility] Brushing Cervix uteri structure / Unknown Non-Blood Collection / Unknown 12/17/2020 2:37 PM EDT 12/17/2020 4:26 PM EDT us Susan Girard DINING ROOM HOSTESS LAB PATHOLOGY/CYTOLOGY ORDERABL ES Final Result [facility] [address] [place] [id number], from Last 3 Months or Most Recently Relevant to Health Maintenance Insurance [facility]/[place] [address] [place] [address] Care Teams Non Garment Sewing Machine Operator Relationship Specialty Start Date End Date Clara Shearer [address] [place] [id number] PCP - General Family Medicine 05/26/20
--- OUTSIDE RECORDS SUMMARY | 2025-03-31 22:09 | XMS_ITS | Encounter Summary ---
Author Organization [facility] Address [address] [facility] [address] [place] [address] Care Team Providers Care Dog Groomer Name Role Phone Clara Shearer MD Primary Care Provider [phone] Reason for Visit * Reason Onset Date Comments chart prep 03/31/2025 Encounter Details Date Type Department Care Team ([facility] st Contact Info) Description 03/31/[address] [facility] MEDICINE [address] [place], [place] [phone] Clara Shearer MD [address] [place], [place] [phone] chart prep Social History Tobacco Use Types Packs/Day Years [...] encounter Miscellaneous Notes * Telephone Encounter - Sathish Orozco [place] - 03/31/2025 1:05 PM EDT Chart Prep Labs: done Images: not done Radiology appt 04/10/25 @1:00 pm at [facility] Referrals: not applicable Vaccines due: no updates Screenings: not applicable Overdue care gaps: SDOH and Oral health screening documented in this encounter Plan of Treatment Upcoming Encounters Date Type Department Care Team (Late st Contact Info) Description 04/01/2025 3:45 PM EDT Office Visit [facility] MEDICINE [address] [place] [address] Clara Shearer MD [address] [place] [address] 05/08/2025 8:00 AM EDT Office Visit [facility] ADULT DENTAL [address] [place] [address] Katt Espinoza [address] [place] [address] documented as of this encounter Visit Diagnoses Not on filedocumented in this encounter Additional Health Concerns Assessment Noted Time PHQ-9 Depression Total Score: 17 025 1:38 PM EDT documented as of this encounter Care Teams Dog Groomer Relationship Specialty Start Date End Date Clara Shearer MD [address] [place] [address] PCP - General Family Medicine 07/24/18 documented as of this encounter
--- OUTSIDE RECORDS SUMMARY | 2025-03-31 22:09 | XMS_ITS | Clinical Summary ---
Author Organization [employer] Address [address] [facility] [address] [place] [address] Care Team Providers Care Apartment Rental Clerk Name Role Phone Clara Shearer MD Primary Care Provider [phone] Allergies No known active allergies Medications * [...] 11 5 Active cyclobenzaprine (Flexeril) 10 MG tabletIndication s:Acute left-sided low back pain without sciatica Take 1 tablet (10 mg) by mouth if needed in the morning, at noon, and at bedtime for muscle spasms for up to [address] with medication 20 tablet 5 Active warfarin (Coumadin) 2 MG tabletIndication s:History of mechanical aortic valve replacement TAKE 2 TO 4 TABLETS BY MOUTH DAILY DIRECTED BY COUMADIN CLINIC 120 tablet 11 5 Active Ascorbic Acid (vitamin C) 500 MG tablet TAKE 1 TABLET BY MOUTH TWICE DAILY 180 tablet 5 Active cholecalciferol (D3 Super Strength) 50 MCG (1999 UT) capsule TAKE 1 CAPSULE BY MOUTH EVERY DAY 90 capsule 5 Active olopatadine (Pataday) 0.2 % ophthalmic solution INSTILL 1 DROP INTO THE AFFECTED EYE(S) DAILY NEEDED FOR ITCHING Active SUMAtriptan (Imitrex) 100 MG tablet TAKE 1 TABLET BY MOUTH AT ONSET OF MIGRAINE. MAY REPEAT ONCE AFTER 2 HOURS IF NEEDED, DO NOT EXCEED 2 TABLETS / 24 HOURS Active Active Problems Problem Noted Date Diagnosed [...] has sleep study which was ordered by gas main fitter. Patient was referred to sleep medicine specialist [...] [facility] [place] orthopedist in March 2024. MRI in 2023 [...] was ordered and patient was referred to [facility] for injection treatment. - [...] on warfarin - previously prescribed metoprolol by gas main fitter; no longer on the medication due to hypotension / dizziness - continue following with gas main fitter, [facility] Dr Haynes - last TTE in January 2022, mild mitral valve stenosis - continue current treatment plan per cardiology Assessment & Plan (05/30/2024 12:22 PM EST): - s/p AVR in Feb 2010 - on warfarin - previously prescribed metoprolol by gas main fitter; no longer on the medication due to hypotension / dizziness - continue following with gas main fitter, [facility] Dr Haynes - last TTE in January 2022, mild mitral valve stenosis - continue current treatment plan per cardiology Assessment & Plan (03/19/2023 1:47 PM EDT): - s/p AVR in Feb 2010 - on warfarin - previously prescribed metoprolol by gas main fitter; no longer on the medication due to hypotension / dizziness - continue following with gas main fitter, [facility] Dr Haynes - last TTE in January 2022, mild mitral valve stenosis - continue current treatment plan per cardiology Assessment & Plan (11/22/2022 11:35 AM EDT): - s/p AVR in Feb 2010 - on warfarin - previously prescribed metoprolol by gas main fitter; no longer on the medication due to hypotension / dizziness - continue following with gas main fitter, [facility] Dr Haynes [...] polyp, benign -Pt has follow-up appointment with CEMETERY LABORER -Pt is on Coumadin -Pt requested Hysterectomy, pt will follow-up with CEMETERY LABORER with possible hysterectomy in future Assessment & Plan (11/08/2022 4:50 PM EDT): s/p Endometrial Curetting's, polyp, benign -Pt has follow-up appointment with CEMETERY LABORER -Pt is on Coumadin -Pt requested Hysterectomy, pt will follow-up with CEMETERY LABORER with possible hysterectomy in future Cyst of ovary 09/22/2022 Iron deficiency anemia due to chronic blood loss 09/22/2022 Assessment & Plan (05/30/2024 1:41 PM EST): - AUB in a setting of anticoagulation - s/p removal of endometrial polyp, benign - Pt has follow-up appointment with CEMETERY LABORER - Pt is taking Coumadin Assessment & Plan (11/03/2023 12:09 PM EDT): - AUB in a setting of anticoagulation - s/p removal of endometrial polyp, benign -Pt has follow-up appointment with CEMETERY LABORER -Pt is taking Coumadin Assessment & Plan (11/08/2022 4:45 PM EDT): Due to AUB: S/p Endometrial Curetting's, polyp, benign -Pt has follow-up appointment with CEMETERY LABORER -Pt is taking Coumadin Vitamin D deficiency 12/04/2018 Assessment & Plan (12/30/2024 9:34 AM EDT): -continue vitamin D supplement Assessment & Plan (11/03/2023 12:08 PM EDT): -continue vitamin D supplement Presence of subdermal contraceptive implant 09/2014 History of mechanical aortic valve replacement 0 04/07/2015 Assessment & Plan (12/30/2024 9:32 AM EDT): - 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 Mechanical aortic valve functioning normally. Moderate mitral valve stenosis. No regurgitation. - Continue warfarin - Continue SBE prophylaxis. Assessment & Plan (05/30/2024 12:22 PM EST): - Therapeutic Radiologist: Dr. Dallas Duran, last seen in December 2023 - s/p AVR for rheumatic disease and aortic regurgitation in Feb 2010 - EKG showed sinus rhythm and RBBB - echocardiogram 08/30/23 EF 57%. Mechanical aortic valve functioning normally. Moderate mitral valve stenosis. No regurgitation. - Continue warfarin - Continue SBE prophylaxis. Assessment & Plan (11/03/2023 12:18 PM EDT): - 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 Mechanical aortic valve functioning normally. Moderate mitral valve stenosis. No regurgitation. - Continue warfarin - Continue SBE prophylaxis. Assessment & Plan (03/19/2023 1:47 PM EDT): - Therapeutic Radiologist: Dr. Dallas Duran, last seen in Jul 2022 - s/p AVR for rheumatic disease and aortic regurgitation in Feb 2010 - EKG showed sinus rhythm and RBBB - echocardiogram JANUARY 2022 nml LVEF 60-65%; mild mitral valve stenosis - Continue aspirin and warfarin, per cardiology. - Continue SBE prophylaxis. Assessment & Plan (11/22/2022 11:37 AM EDT): - Therapeutic Radiologist: Dr. Dallas Duran, last seen in Jul [...] & Plan (12/30/2024 9:32 AM EDT): - Therapeutic Radiologist: Dr. Dallas Duran, last seen in December 2023 - s/p AVR for rheumatic disease and aortic regurgitation due to rheumatic heart disease in Feb 2010 - EKG showed sinus rhythm and RBBB - echocardiogram in Aug 2023, EF 59%. Normally functioning AV. Moderate mitral valve stenosis. - Continue warfarin, per cardiology. - Continue SBE prophylaxis. Assessment & Plan (05/30/2024 12:22 PM EST): - [facility] last seen in December 2023 - s/p AVR for rheumatic disease and aortic regurgitation due to rheumatic heart disease in Feb 2010 - EKG showed sinus rhythm and RBBB - echocardiogram in Aug 2023, EF 59%. Normally functioning AV. Moderate mitral valve stenosis. - Continue warfarin, per cardiology. - Continue SBE prophylaxis. Assessment & Plan (11/03/2023 12:20 PM EDT): - [facility] [...] & Plan (11/22/2022 11:36 AM EDT): - [facility] [...] EDT): - 12/03/22 Evaluated and treated at [facility]. WBC 13k, Lipase 247, CT showed [...] organization. Date Type Department Care Team Description 03/31/2025 Telephone [facility] [place] [facility] [address] Clara Shearer MD chart prep 03/25/2025 Telephone [facility] [place] [address] Clara Shearer MD Paperwork/Forms 03/20/2025 Orders Only GENERIC EXTERNAL DATA DEPARTMENT Provider, Generic External Data 02/21/2025 Orders Only [facility] [place] [address] Clara Shearer MD Hematuria, unspecified type (Primary Dx) 2025 Orders Only GENERIC EXTERNAL DATA DEPARTMENT Provider, Generic External Data 02/14/2025 Results Follow-Up [facility] [place] [address] Clara Shearer MD Albumin, Random Urine W/Creatinine, Urinalysis, Complete, with Reflex to Culture 02/13/2025 3:00 PM EDT Office Visit [facility] [address] [place] [phone] Kenroy, Meliza, OD Presbyopia (Primary Dx); Meibomian gland disease, unspecified laterality 02/13/2025 Travel 02/07/2025 Refill [facility] [place] [address] Clara Shearer MD History of mechanical aortic valve replacement 01/08/2025 Orders Only GENERIC EXTERNAL DATA DEPARTMENT Provider, Generic External Data 01/06/2025 5:20 PM EDT Office Visit [facility] [address] [place] [phone] Luis Macias MD Acute left-sided low back pain without sciatica (Primary Dx) 01/06/2025 Travel 01/06/2025 Telephone [facility] [place] [address] Clara Shearer MD Nurse Triage 12/30/2024 1:45 PM EDT Office Visit [facility] [address] [place] [phone] Clara Shearer MD Rheumatic heart disease (Primary [...] Adjustment disorder with depressed mood 12/30/2024 Travel from Last 3 Months Immunizations Immunization Administration [...] Office Visit [facility] [address] [place] [address] Clara Shearer MD [address] [place] [address] 05/08/2025 8:00 AM EDT Office Visit [facility] [address] [place], [place] [phone] Katt Espinoza [address] [place] [address] Health Maintenance Due Date Last Done Comments [...] of 2) 2027 Lipid Panel 2030 2025, 10/23, 12/15/2022, Additional history exists DTaP/Tdap/Td Vaccines (3 [...] included. Protime 38.8(H) 11.1 - 13.5 sec [facility] 03/20/2025 3:04 PM EDT 03/20/2025 3:06 PM EDT Generic External Data Provider LAB BLOOD ORDERAB LES Final Result Performing Organization Address [facility] Co de Phone Number [facility] [address] [place] [phone] * (ABNORMAL) ~PT, ~INR - ANTI COAG CLINIC (03/20/2025 3:04 PM EDT) Only the most recent of3 resultswithin the time period is included. Prothrombin Time INR 3.2(H) 0.9 - 1.1 [facility] Comment:METER #: [id number] TERNATIONAL NORMALIZED RATIO (INR) REFERENCE RANGES Reference [...] ORDERAB LES Final Result Performing Organization Address [facility] Co de Phone Number [facility] [address] [place] [phone] * Vitamin D, 25-Hydroxy, Total, Immunoassay (2025 2:43 PM EDT) Vitamin D 25-OH Total 46.7 >30 ng/mL [facility] Comment: Health Based Reference Values*< 20 ng/mL Slnjqpiix64-48 ng/mL Insufficient> 30 ng/mL Sufficient*Paul LEVIN. N [...] ORDERAB LES Final Result Performing Organization Address [facility]/ZIP Co de Phone Number [facility] [address] [place] [phone] * Vitamin B12 (Cobalamin) and Folate Panel, Serum (2025 2:43 PM EDT) Vitamin B12 637 200 - 900 pg/mL [facility] Comment:NORMAL 200-900 PG/ML INDETERMINATE 160-199 PG/ML DEFICIENT < 160 PG/ML Folate 11.2 > or = 4.0 ng/mL [facility] Comment:Reference Values:> o r = 4.0 ng/mL< 4.0 ng/mL suggests folate deficiency Methotrexate, aminopterin and folinic acid(leucovorin) are chemotherapeutic agents whose molecularstructures are similar to folate; therefore, the Architectfolate assay cannot be used for patients using these drugs. 2025 2:43 PM EDT 2025 2:43 PM EDT us Generic External Data Provider LAB BLOOD ORDERAB LES Final Result Performing Organization Address [facility]/ZIP Co de Phone Number [facility] [address] [place] [phone] * TSH with Reflex to Free T4 (2025 2:43 PM EDT) TSH reflex Free T4 1.21 0.32 - 4.0 uIU/mL [facility] 2025 2:43 PM EDT 2025 2:43 PM EDT us Generic External Data Provider LAB BLOOD ORDERAB LES Final Result Performing Organization Address [facility] Co de Phone Number [facility] [address] [place] [phone] * (ABNORMAL) Lipid Panel with Reflex to Direct LDL (2025 2:43 PM EDT) Triglycerides 143 <150 mg/dL [facility] Comment:Desirable Triglyceri de: less than 150 mg/dLBorderline High Triglyceride 150-199 mg/dLHigh Triglyceride: 200-499 mg/dLVery High Triglyceride: greater than or equal to 5OO mg/dL Cholesterol 197 <200 mg/dL [facility] Comment:Desirable Cholestero l: less than 200 mg/dLBorderline High Cholesterol: 200-239 mg/dLHigh Cholesterol: greater than 239 mg/dL LDL Cholesterol Calculated 117(H) <100 mg/dL [facility] Comment:Desirable LDL: less than 100 mg/dLNear Optimal/Above Optimal LDL: 110- 129 mg/dLBorderline High LDL: 130-159 mg/dLHigh LDL: 160-189 mg/dLVery High LDL: greater than or equal to 190 mg/dL HDL Cholesterol 52 >40 mg/dL [facility] Comment:Desirable HDL: great er than 40 mg/dL Note: This HDL assay may give artificially low results in patients with liver disease. 2025 2:43 PM EDT 2025 2:43 PM EDT us Generic External Data Provider LAB BLOOD ORDERAB LES Final Result Performing Organization Address City/[facility]/ZIP Co de Phone Number [facility] [address] [place] [phone] * Methylmalonic Acid (2025 2:43 PM EDT) Methylmalonic Acid 81 55 - 335 nmol/L [facility] Comment: Serum methylmalonic acid (MMA) levels [...] outcomes,such as neural tube defects and intrauterine growthrestriction.[employer] utilized Multi-Modal Decomposition(MMD) analysis to establish first and second trimester-specific MMA reference intervals in , as givenbelow:MMA, First trimester (<13 wks gestation): 58-167 nmol/LMMA, Second trimester (13-23 wks gestation):63-241 nmol/LThis test was developed and its analytical performancecharacteristics have been determined by [employer]. It has not been cleared or approved by theFDA. This assay has been validated pursuant to the CLIAregulations and is used for clinical purposes.THIS TEST WAS PERFORMED AT:[employer] [place] [id number] OMER MD,PHD 2025 2:43 PM EDT 2025 2:43 PM EDT us Generic External Data Provider LAB BLOOD ORDERAB LES Final Result [facility] [address] [place] [phone] * CBC (2025 2:43 PM EDT) White Blood Count 5.6 4.8 - 10.8 X10*3/uL [facility] Red Blood Count 4.37 4.20 - 5.50 X10*6/uL [facility] Hemoglobin 13.3 12.0 - 16.0 g/dl [facility] Hematocrit 38.8 37.0 - 47.0 % [facility] Mean Corpuscular Volume 88.8 80.0 - 98.0 fL [facility] Mean Corpuscular Hemoglobin 30.4 27.0 - 33.0 pg [facility] Mean Corpuscular HGB Conc 34.3 31.0 - 35.0 g/dl [facility] Red Cell Distribution Width 12.9 11.0 - 16.0 % [facility] Platelet Count 256 160 - 400 X10*3/uL [facility] Mean Platelet Volume 9.8 9.4 - 12.3 fL [facility] NRBC Pct Auto 0.0 0.0 - 0.2 /100WBC [facility] NRBC Abs Auto 0.000 0.0 - 0.012 X10*3/uL [facility] 2025 2:43 PM EDT 2025 2:43 PM EDT us Generic External Data Provider LAB BLOOD ORDERAB LES Final Result [facility] [address] [place] [phone] * Homocysteine (2025 2:43 PM EDT) Homocysteine 5.0 < or = 11.0 umol/L [facility] Comment:Homocysteine is incr eased by functional deficiency offolate or vitamin B12. Testing for methylmalonic aciddifferentiates between these deficiencies. Other causesof increased homocysteine include renal failure, folateantagonists such as methotrexate and phenytoin, andexposure to nitrous oxide.Sarah Muse et al., Suha Sample Worker Med. 1999;131(5):331-9.THIS TEST WAS PERFORMED AT:[facility] [place] [id number] GUPTA MD 2025 2:43 PM EDT 2025 2:43 PM EDT us Generic External Data Provider LAB BLOOD ORDERAB LES Final Result Performing Organization Address [facility] Co de Phone Number [facility] [address] [place] [phone] * Hemoglobin A1c (2025 2:43 PM EDT) Hemoglobin A1c 5.7 <6.0 % [facility] Comment:Hemoglobin A1C Refer ence Range Adults: 4.8 - 6.0 % Non diabetic: < 6.0 % Goal: < 7.0 %Additional Action Suggested: > 8.0 %Note: Hemoglobin A1c results are invalid for patients with abnormal amounts of HbF. Blood transfusions may impact the HbA1c concentration in the patient sample. Estimated Average Glucose 117 mg/dL [facility] Comment:eAG = Estimated ave rage glucose which is %A1C expressed asaverage glucose, using the formula of the G6G-RzbanfuNiljseq Glucose study (ADAG), Diabetes Care, Vol.31,#8,Feb. 2007 2025 2:43 PM EDT 2025 2:43 PM EDT us Generic External Data Provider LAB BLOOD ORDERAB LES Final Result Performing Organization Address [facility] Co de Phone Number [facility] [address] [place] [phone] * Ferritin (2025 2:43 PM EDT) Ferritin 93 10 - 250 ng/mL [facility] 2025 2:43 PM EDT 2025 2:43 PM EDT us Generic External Data Provider LAB BLOOD ORDERAB LES Final Result Performing Organization Address [facility]/ZIP Co de Phone Number [facility] [address] [place] [phone] * (ABNORMAL) Comprehensive Metabolic Panel (2025 2:43 PM EDT) Sodium 138 135 - 145 mmol/L [facility] Potassium 3.6 3.3 - 5.1 mmol/L [facility] Chloride 108 96 - 108 mmol/L [facility] Carbon Dioxide 23 22 - 29 mmol/L [facility] Anion Gap 11(L) 12 - 20 [facility] Urea Nitrogen (BUN) 13 9 - 16 mg/dL [facility] Creatinine, Serum 0.51 0.5 - 1.4 mg/dL [facility] Estimated Glomerular Filt Rate >60 [facility] Comment:Chronic Kidney Disea se: Estimated GFR < 60 mL/min/1.40o2Oycpgn Kidney Disease: Estimated GFR < 15 mL/min/1.73m2 Glucose 99 60 - 115 mg/dL [facility] Calcium 8.8 8.4 - 10.2 mg/dL [facility] Bilirubin, Total 0.5 0.0 - 1.0 mg/dL [facility] Aspartate Amino Transferase 28 5 - 31 U/L [facility] Alanine Aminotransferase 41(H) 0 - 31 U/L [facility] Total Protein 7.1 6.5 - 8.0 g/dL [facility] Albumin Level 4.2 3.5 - 5.0 g/dL [facility] Alkaline Phosphatase 76 39 - 117 U/L [facility] 2025 2:43 PM EDT 2025 2:43 PM EDT us Generic External Data Provider LAB BLOOD ORDERAB LES Final Result [facility] [address] [place] [phone] * (ABNORMAL) Urinalysis, Complete, with Reflex to Culture (2025 2:38 PM EDT) Only the most recent of2 resultswithin the time period is included. Color Urine Yellow [facility] Appearance Urine Clear [facility] PH 5.5 5.0 - 9.0 [facility] Glucose Urine UA Negative Negative mg/dL [facility] Urine Blood Moderate (2+)(A) Negative [facility] Specific [place] - Urine 1.015 1.005 - 1.025 [facility] Urine Protein Negative Neg-Trace mg/dL [facility] Urine Ketones Negative Negative mg/dL [facility] Nitrite Urine Negative Negative [facility] Leukocyte Esterase Urine Negative Negative [facility] RBC Urine 0-2 0 - 2 /HPF [facility] Urine WBC 0-5 0 - 5 /HPF [facility] Urine Squamous Epithelial Cell 0-2 0 - 2 /HPF [facility] Urine Bacteria None Seen None Seen [facility] Hyaline Casts, Urine 0-2 0 - 2 /LPF [facility] Urine 2025 2:38 PM EDT 2025 3:15 PM EDT Narrative [facility] - 2025 3:28 PM EDT Urine, Clean Catch us Clara Shearer MD LAB URINE ORDERABLES Final Resul t [facility] [address] [place] [phone] * Albumin, Random Urine W/Creatinine (02/13/2025 4:15 PM EDT) Creatinine, Urine 84.01 mg/dL [facility] Microalbumin Urine 7.0 mg/L [facility] Microalbum Creatinine Ratio Ur 8.3 <30 ug/mg cr [facility] Comment:Albumin/Creatinine R atio Reference Ranges: Normal: < 30 ug/mg creatinine Microalbuminuria: 30 - 300 ug/mg creatinineClinical Albuminuria: > 300 ug/mg creatinine Urine 02/13/2025 4:15 PM EDT 02/13/2025 5:31 PM EDT us Clara Shearer MD LAB URINE ORDERABLES Final Resul t [facility] [address] [place] [phone] * BI Mammogram Screening Tomosynthesis Bilateral (10/04/2024 3:55 PM EDT) Anatomical Region Laterality Modality Breast Bilateral Mammography 10/04/2024 3:55 PM EDT Narrative 10/13/2024 6:12 PM EDT [address] [place] [address] Mammography Report Signed Patient: Thalia Martell MR#: [id number] 2088 : 1975 Acct:[id number] Age/Sex: 49 / F ADM Date: 10/04/24 Loc: [facility] Attending Dr: Clara Shearer MD Ordering Physician: Clara Shearer MD Results: 1Negative Date of Service: 10/04/24 Follow Up: 1 Year From [facility] Mammogram Procedure(s): MM tomosynthesis screening BI Accession Number(s): [id number] cc: Clara Shearer MD EXAMINATION: MM SCREENING [...] 10/13/24 1809 DD/ 1555 TD/TT: 10/04/24 1608 Cyber Defense Forensics Analyst: Procedure Note Donotuseinterpreter, Image - [facility] [address] [place], [place] [address] Mammography Report Signed Patient: Yoel Martell#: [id number] : 1975Acct:[id number] Age/Sex: 49 / FADM Date: 10/04/24 Loc: [facility] Attending Dr: Clara Shearer MD Ordering Physician: Clara Shearer MDResults: 1Negative Date of Service: 10/04/24Follow Up: 1 Year From Orig inal Mammogram Procedure(s): MM tomosynthesis screening BI Accession Number(s): [id number] cc: Clara Shearer MD EXAMINATION: MM SCREENING [...] June Schrader DO 10/13/2024 06:09 PM EDT RP Dictated By: June Schrader DO Signed By: <Electronically signed by June Schrader DO in OV> 10/13/24 1809 DD/ 1555 TD/TT: 10/04/24 1608 Cyber Defense Forensics Analyst: Clara Shearer MD IMG BI PROCEDURES Edited Result - Final * Hepatitis Panel, General (12/11/2023 4:30 PM EDT) Hepatitis A IgM Nonreactive Nonreactive [facility] Comment:IgM antibodies to HEMPHILL V not detected; does not exclude earlyacute or recovered HAV infection. ~Hepatitis B Surface Antibody REACTIVE Nonreactive [facility] Comment:REACTIVE: > 11.99 mI U/mL Hepatitis B Core Antibody Nonreactive Nonreactive [facility] Hepatitis C Antibody Nonreactive Nonreactive [facility] Comment:Antibodies to HCV no t detected; does not exclude early acuteHCV infection. Hepatitis B Surface Ag Negative Negative [facility] 12/11/2023 4:30 PM EDT 12/11/2023 4:33 PM EDT us Generic External Data Provider LAB BLOOD ORDERAB LES Final Result [facility] [address] [place] [phone] * HIV-1 RNA, Quantitative, Real-Time PCR (12/15/2022 8:09 AM EDT) HIV 1 RNA, QN PCR NOT DETECTED NOT DETECTED copies/mL [facility] [place] Project [employer] HIV 1 RNA, QN PCR NOT DETECTED NOT DETECTED Log copies/mL [facility] [place] [facility] Comment: This test was performed using Real-Time Polymerase Chain Reaction. Reportable Range: 20 copies/mL to 10,000,000 copies/mL (1.30 log copies/mL to 7.00 log copies/mL). Blood Venous blood specimen / Unknown 12/15/2022 8:09 AM EDT 12/15/2022 8:10 AM EDT Narrative [facility] - 12/23/2022 6:53 PM EDT FASTING:NO FASTING: NO us Yany Cosby SKIN SPECIALIST LAB BLOOD ORDERABLES Final Res ult [facility] [address], [place] [address] [facility] [address] [place] [address] * THINPREP PAP (11/13/2020 4:51 PM EDT) [...] along with historic and current clinical information. Helicopter Mechanic : SEE COMMENT [facility] Comment: RK, CT(ASCP) CT screening location: [place] [address] Interpretation/R esult: Negative for intraepithelial lesion or malignancy. [facility] LMP: NONE GIVEN [facility] Prev. BX: NONE GIVEN [facility] Prev. PAP: NONE GIVEN [facility] Review Helicopter Mechanic : SEE COMMENT [facility] Comment: BLC,CT(ASCP) CT screening location: [place] [address] SOURCE: None given [facility] Statement Of Adequacy: SEE COMMENT [facility] Comment: Satisfactory for evaluation. Endocervical/transformation zone component present. Age and/or menstrual status not provided 11/13/2020 4:51 PM EDT us Ginette Her HOUSE DETECTIVE LAB PATHOLOGY ORDERABLES Final Result Performing Organization Address City/[facility]/ZIP Co de Phone Number [facility] [address] [place] [phone], * HPV GENOTYPES 16,18/45 (11/13/2020 4:51 PM EDT) HPV 16 RNA NOT DETECTED NOT DETECTED [facility] HPV 18/45 RNA NOT DETECTED NOT DETECTED [facility] Comment: Methodology: Mail Processing Machine Operator Mediated Amplification The analytical performance characteristics of this assay have been determined by [employer]. The modifications have not been cleared or approved by the FDA. This assay has been validated pursuant to the CLIA regulations and is used for clinical purposes. 11/13/2020 4:51 PM EDT us Ginette Her NP LAB CYTOLOGY ORDERABLES Final R esult [facility] [address] from Last 3 Months or Most Recently Relevant [id number] [facility] 2 DENTAL - [facility] FULL (MEDICAID[place] ADULT Care Teams Apartment Rental Clerk Relationship Specialty Start Date End Date Clara Shearer MD [address] [place] [address] PCP - General Family Medicine 07/24/18
--- OUTSIDE RECORDS SUMMARY | 2025-03-31 22:10 | XMS_ITS | Encounter Summary ---
Author Organization [employer] Address 75 [facility] 7t [place] [address] Care Team Providers Care Progressive Die Maker Name Role Phone Clara Shearer MD Primary Care Provider [phone] Reason for Visit * Reason Onset Date Comments Paperwork/Forms 03/25/2025 Encounter Details Date Type Department Care Team ([facility] st Contact Info) Description 03/25/2025 Telephone [facility] MEDICINE [address] [place], [place] [phone] Clara Shearer MD [address] [place] [address] Paperwork/Forms Social History Tobacco Use Types Packs/Day Years [...] encounter Miscellaneous Notes * Telephone Encounter - Debra Morel RN - 03/28/2025 3:47 PM EDT Faxed signed form to [facility] coumadin clinic, confirmation received. * Telephone Encounter - Debra Morel RN - 03/25/2025 1:19 PM EDT Received yearly paperwork from [facility] Anti-Coagulation Clinic. Placed on PCP desk for signature. documented in this encounter Plan of Treatment Upcoming Encounters Date Type Department Care Team (Late st Contact Info) Description 04/01/2025 3:45 PM EDT Office Visit [facility] MEDICINE [address] [place] [address] Clara Shearer MD [address] [place] [address] 05/08/2025 8:00 AM EDT Office Visit [facility] ADULT DENTAL [address] [place] [address] Katt Espinoza [address] [place] [address] documented as of this encounter Visit Diagnoses Not on filedocumented in this encounter Additional Health Concerns Assessment Noted Time PHQ-9 Depression Total Score: 17 025 1:38 PM EDT documented as of this encounter Care Teams Progressive Die Maker Relationship Specialty Start Date End Date Clara Shearer MD [address] [place] [address] PCP - General Family Medicine 07/24/18 documented as of this encounter
== END ==
LOC: HO.SL 19:30
PROVIDERS: PCP Family Medicine; Visit Provider Physician Assistant Medical
DX: M25.511 Pain in right shoulder (principal); M25.512 Pain in left shoulder; G89.29 Other chronic pain
CPT/HCPCS: 95810

== ENCOUNTER → 2025-03-31 21:41 | Outpatient (BNV) | payer OTHER, SELFPAY | PROVIDERS: PCP Family Medicine; Visit Provider Psychiatry & Neurology Neurology | DX: G47.33 Obstructive sleep apnea (adult) (pediatric) (principal) | CPT/HCPCS: 95810 ==

== ENCOUNTER 2025-04-10 12:44 | Outpatient (REF) | payer OTHER, SELFPAY ==
--- NOTE | ~2025-04-10 | US_ITS ---
CLINICAL HISTORY: hematuria US Renal Comparison: None provided Findings: Right kidney normal size and echotexture, 10.9 cm length. Left kidney normal size and echotexture, 12.7 cm length. The garbage person demonstrates mild pelvic fullness bilaterally. It is unclear whether or not the images of the kidneys are pre or postvoid. Normal color Doppler. Urinary bladder is unremarkable. Prevoid volume 410 mL. Postvoid volume 27 mL. Bilateral ureteral jets are visualized. IMPRESSION: 1. Mild pelvic fullness. 2. No significant postvoid residual within the bladder. This document has been electronically signed by: Mari Macedo MD on 04/11/2025 09:01:08
--- OUTSIDE RECORDS SUMMARY | 2025-04-10 14:47 | XMS_ITS | Encounter Summary ---
Author Organization [employer] Address 75 [facility] [address], [place] [address] Care Team Providers Care Fire Services Plumber Name Role Phone Clara Shearer MD Primary Care Provider [phone] Reason for Referral * Consultation (Routine) - Closed Specialty Diagnoses / Procedures Referred By Contac t Referred To Contact Physical Therapy Diagnoses Right hip pain Chronic right-sided low back pain, unspecified whether sciatica present Clara Shearer MD [address] [place] [address] Phone: tel: fax: AT Physical Therapy - [address] [address] Phone: tel: fax: Referral ID Status Reason Start Date Expiration Date V isits Requested Visits Authorized [id number] Closed Specialty Services Required 11/14/2023 11/13/2024 1 1 Encounter Details Date Type Department Care Team (Late st Contact Info) Description 11/14/2023 Orders Only [facility] MEDICINE [address] [place], [place] [phone] Clara Shearer MD [address] [place], [place] [phone] Right hip pain (Primary Dx); Chronic right-sided [...] Care Team (Late st Contact Info) Description 05/08/2025 8:00 AM EDT Office Visit [facility] ADULT DENTAL [address] [place] [address] Katt Espinoza [address] [place] [address] Scheduled Referrals Name Type Priority Associated Diagnoses [...] PM EDT Narrative 11/25/2023 8:18 AM EDT [address] [address] XRay Report Signed Patient: Thalia Martell MR#: [id number] 2088 : 1975 Acct:[id number] Age/Sex: 48 / F ADM Date: 11/16/23 Loc: HOC[facility] Attending Dr: Clara Shearer MD Ordering Physician: Clara Shearer MD Date of Service: 11/16/23 Procedure(s): XR thoracic spine 2V Accession Number(s): [id number] cc: Clara Shearer MD EXAMINATION: XR THORACOLUMBAR [...] signed by Easton Campos MD in OV> 11/25/23 0815 DD/ 1549 TD/TT: Geophysical Manager: QUINN Procedure Note Donotuseinterpreter, Image - 11/25/[address] [address] XRay Report Signed Patient: Yoel Martell#: [id number] 2088 : 1975Acct:[id number] Age/Sex: 48 / FADM Date: 11/16/23 Loc: HO.XRAY Attending Dr: Clara Shearer MD Ordering Physician: Clara Shearer MD Date of Service: 11/16/23 Procedure(s): XR thoracic spine 2V Accession Number(s): [id number] cc: Clara Shearer MD EXAMINATION: XR THORACOLUMBAR [...] MD inOV> 11/25/23 0815 DD/ 1549 TD/TT: Geophysical Manager: QUINN Clara Shearer MD IMG XR PROCEDURES [...] documented as of this encounter Care Teams Fire Services Plumber Relationship Specialty Start Date End Date Clara Shearer MD [address] [place] [address] PCP - General Family Medicine 07/24/18 documented as of this encounter
--- OUTSIDE RECORDS SUMMARY | 2025-04-10 14:47 | XMS_ITS | Encounter Summary ---
Author Organization [employer] Address 75 [facility] 7t [place] [address] Care Team Providers Care Manager Private Name Role Phone Clara Shearer MD Primary Care Provider [phone] Reason for Visit * Reason Onset Date Comments Nurse Triage 06/05/2023 Encounter Details Date Type Department Care Team ([facility] st Contact Info) Description 06/05/2023 Telephone [facility] MEDICINE [address] [place], [place] [phone] Clara Shearer MD [address] [place], [place] [phone] Nurse Triage Social History Tobacco Use Types [...] 06/05/2023 4:47 PM EST Triage call with [place] [employer] Specialist [place] [id number] Pt reports headaches which have started 2 [...] to try this. Pt will come to [facility] tomorrow 06/06/23 to be seen by provider. [...] Nausea as well Please contact pt at [phone] German Speaker. documented in this encounter Plan of Treatment Upcoming Encounters Date Type Department Care Team (Late st Contact Info) Description 05/08/2025 8:00 AM EDT Office Visit [facility] ADULT DENTAL [address] [place] [address] Olga, Katt [address] [place] [address] documented as of this encounter Visit Diagnoses Not on filedocumented in this encounter Additional Health Concerns Assessment Noted Time PHQ-9 Depression Total Score: 5 03/07/20 23 3:27 PM EDT documented as of this encounter Care Teams Manager Private Relationship Specialty Start Date End Date Clara Shearer MD [address] [place] [address] PCP - General Family Medicine 07/24/18 documented as of this encounter
--- OUTSIDE RECORDS SUMMARY | 2025-04-10 14:47 | XMS_ITS | Encounter Summary ---
Author Organization [email or web address] Address 75 [facility] 7t [place] [address] Care Team Providers Care Doctor Assistant Name Role Phone Clara Shearer MD Primary Care Provider [phone] Encounter Details Date Type Department Care Team (Late st Contact Info) Description 04/10/2025 Orders Only GENERIC EXTERNAL DATA DEPARTMENT Provider, [...] t he electric, gas, oil or water [employer] threatened to shut off services in your [...] Description 05/08/2025 8:00 AM EDT Office Visit [facility] ADULT DENTAL [address] [place] [address] Olga, Katt [address] [place] [address] documented as of this encounter Procedures Procedure Name Priority Date/Time Associated Diagnosis Comments PROTHROMBIN TIME WHOLE BLD POC Routine 04/10/2025 1:26 PM EDT ~PT, ~INR - ANTI COAG CLINIC Routine 04/10/2025 1:26 PM EDT documented in this encounter Results * (ABNORMAL) PROTHROMBIN TIME WHOLE BLD POC (04/10/2025 1:26 PM EDT) Protime 59.1(H) 11.1 - 13.5 sec [facility] 04/10/2025 1:26 PM EDT 04/10/2025 1:28 PM EDT us Generic External Data Provider LAB BLOOD ORDERAB LES Final Result [facility] [address] [place] [address] [phone] * (ABNORMAL) ~PT, ~INR - ANTI COAG CLINIC (04/10/2025 1:26 PM EDT) Prothrombin Time INR 4.9(H) 0.9 - 1.1 [facility] Comment:METER #: [id number] TERNATIONAL NORMALIZED RATIO (INR) REFERENCE RANGES Reference RangeFor patients not on anticoagulant therapy: 0.9 - 1.1INR ranges for oral anticoagulanttherapy:For prevention and treatment of venous thrombosis and pulmonary embolism: 2.0 - 3.0For acute myocardial infarction with aspirin therapy: 2.0 - 3.0For acute myocardial infarction without aspirin therapy: 3.0 - 4.0For patients with mechanical prosthetic heart valves: 2.5 - 3.5 04/10/2025 1:26 PM EDT 04/10/2025 1:28 PM EDT us Generic External Data Provider LAB BLOOD ORDERAB LES Final Result [facility] [address] [place] [address] [phone] documented in this encounter Visit Diagnoses Not on filedocumented in this encounter Additional Health Concerns Assessment Noted Time PHQ-9 Depression Total Score: 17 025 1:38 PM EDT documented as of this encounter Care Teams Doctor Assistant Relationship Specialty Start Date End Date Clara Shearer MD [address] [place] [address] PCP - General Family Medicine 07/24/18 documented as of this encounter
--- OUTSIDE RECORDS SUMMARY | 2025-04-10 14:47 | XMS_ITS | Encounter Summary ---
Author Organization [employer] Address 75 [facility] 7t [place] [address] Care Team Providers Care Lace Machine Operator Name Role Phone Clara Shearer MD Primary Care Provider [phone] Reason for Visit * Reason Onset Date Comments rs prophy 05/22/2023 Encounter Details Date Type Department Care Team ([facility] st Contact Info) Description 05/22/2023 Telephone [facility] ADULT DENTAL [address] [place], [place] [phone] Olga, Katt [address] [place] [address] rs prophy Social History Tobacco Use Types [...] Description 05/08/2025 8:00 AM EDT Office Visit [facility] ADULT DENTAL [address] [place] [address] Katt Espinoza [address] [place] [address] documented as of this encounter Visit Diagnoses Not on filedocumented in this encounter Additional Health Concerns Assessment Noted Time PHQ-9 Depression Total Score: 5 03/07/20 23 3:27 PM EDT documented as of this encounter Care Teams Lace Machine Operator Relationship Specialty Start Date End Date Clara Shearer MD [address] [place] [address] PCP - General Family Medicine 07/24/18 documented as of this encounter
--- OUTSIDE RECORDS SUMMARY | 2025-04-10 14:47 | XMS_ITS | Encounter Summary ---
Author Organization [email or web address] Address 75 [facility] 7t [place] [address] Care Team Providers Care Human Resources Designate Name Role Phone Clara Shearer MD Primary Care Provider [phone] Encounter Details Date Type Department Care Team ([facility] st Contact Info) Description 01/22/2024 Orders Only [facility] MEDICINE [address] [place], [place] [phone] Clara Shearer MD [address] [place], [place] [phone] History of mechanical aortic valve replacement Social [...] AM EDT Office Visit [facility] ADULT DENTAL [address] [place] [address] Katt Espinoza [address] [place] [address] documented as of this encounter Visit Diagnoses Diagnosis History of mechanical aortic valve replacement documented in this encounter Additional Health Concerns Assessment Noted Time PHQ-9 Depression Total Score: 0 10/17/19 24 3:45 PM EDT documented as of this encounter Care Teams Human Resources Designate Relationship Specialty Start Date End Date Clara Shearer MD [address] [place] [address] PCP - General Family Medicine 07/24/18 documented as of this encounter
--- OUTSIDE RECORDS SUMMARY | 2025-04-10 14:47 | XMS_ITS | Encounter Summary ---
Author Organization [employer] Address [address] [place] [address] 7t [place] [address] Care Team Providers Care Associate Director Career Services Name Role Phone Calra Shearer MD Primary Care Provider [phone] Reason for Referral * Imaging (Routine) - Authorized Specialty Diagnoses / Procedures Referred By Contac t Referred To Contact Radiology Diagnoses Hematuria, unspecified type Procedures US RENAL BI Clara Shearer MD [address] [place] [address] Phone: tel: fax: [address] Phone: tel: fax: Referral ID Status Reason Start Date Expiration Date V isits Requested Visits Authorized [id number] Authorized 02/21/2025 02/21/2026 1 1 * Imaging (Routine) - Authorized Specialty Diagnoses / Procedures Referred By Contac t Referred To Contact Radiology Diagnoses Hematuria, unspecified type Procedures US BLADDER Clara Shearer MD [address] [place] [address] Phone: tel: fax: [address] Phone: tel: fax: Referral ID Status Reason Start Date Expiration Date V isits Requested Visits Authorized [id number] Authorized 02/21/2025 02/21/2026 1 1 Encounter Details Date Type Department Care Team (Late st Contact Info) Description 02/21/2025 Orders Only [facility] MEDICINE 230 [place] [address] Clara Shearer MD [address] [place] [address] Hematuria, unspecified type (Primary Dx) Social History [...] Description 05/08/2025 8:00 AM EDT Office Visit [facility] ADULT DENTAL [address] [place] [address] Jignesh Espinozaaris [address] [place] [address] Scheduled Orders Name Type Priority Associated Diagnoses [...] documented as of this encounter Care Teams Associate Director Career Services Relationship Specialty Start Date End Date Clara Shearer MD [address] [place] [address] PCP - General Family Medicine 07/24/18 documented as of this encounter
--- OUTSIDE RECORDS SUMMARY | 2025-04-10 14:47 | XMS_ITS | Encounter Summary ---
Author Organization [employer] Address [address] [place] [address] 7 [place] [address] Care Team Providers Care Endo Tech Name Role Phone Clara Shearer MD Primary Care Provider [phone] Reason for Referral * Imaging (Routine) - Closed Specialty Diagnoses / Procedures Referred By Contac t Referred To Contact Radiology Diagnoses Metabolic dysfunction-associated steatotic liver disease (MASLD) Procedures US Abdomen Comp w elastography Clara Shearer MD [address] [place] [address] Phone: tel: fax: [address] Phone: tel: fax: Referral ID Status Reason Start Date Expiration Date Visits Re quested Visits Authorized [id number] Closed 11/17/2023 11/16/2024 1 1 Encounter Details Date Type Department Care Team (Late st Contact Info) Description 11/17/2023 Orders Only [facility] MEDICINE [address] [place], [place] [phone] Clara Shearer MD [address] [place], [place] [phone] Metabolic dysfunction-associated steatotic liver disease (MASLD) (Primary [...] Description 05/08/2025 8:00 AM EDT Office Visit [facility] ADULT DENTAL [address] [place] [address] Jignesh Espinozaaris [address] [place] [address] documented as of this encounter Procedures Procedure Name Priority Date/Time Associated Diagnosis Comments US ABDOMEN COMPLETE WITH ELASTOGRAPHY Routine 12/05/2023 9:26 AM EDT Metabolic dysfunction-associa ebony steatotic liver disease (MASLD) documented in this encounter Results * US Abdomen Comp w elastography (12/05/2023 9:26 AM EDT) Anatomical Region Laterality Modality Abdomen Ultrasound 12/05/2023 9:26 AM EDT Narrative 12/12/2023 9:41 AM EDT [place] [address] Ultrasound Report Signed Patient: Thalia Martell MR#: [id number] 2088 : 1975 Acct:[id number] Age/Sex: 48 / F ADM Date: 12/05/23 Loc: HO.US Attending Dr: Clara Shearer MD Ordering Physician: Clara Shearer MD Date of Service: 12/05/23 Procedure(s): US abdomen comp w elastography Accession Number(s): [id number] cc: Clara Shearer MD EXAMINATION: US COMPLETE [...] of Radiologists in Ultrasound Liver Stiffness Thresholds (2019): LIVER STIFFNESS THRESHOLDS: *Liver Stiffness equal or [...] MD in OV> 12/12/2337 DD/ 5 TD/TT: Weather Strip Mechanic: SS Procedure Note Donotuseinterpreter, Image - 12/12/[address] [address] Ultrasound Report Signed Patient: Yoel Martell#: [id number] 2088 : 1975Acct:[id number] Age/Sex: 48 / FADM Date: 12/05/23 Loc: HO.US Attending Dr: Clara Shearer MD Ordering Physician: Clara Shearer MD Date of Service: 12/05/23 Procedure(s): US abdomen comp w elastography Accession Number(s): [id number] cc: Clara Shearer MD EXAMINATION: US COMPLETE [...] MD in OV> 12/12/2337 DD/ 5 TD/TT: Weather Strip Mechanic: SS us Clara Shearer MD IMG US PROCEDURES Final Result documented in this encounter Visit Diagnoses Diagnosis Metabolic dysfunction-associated steatotic liver disease (MASLD)- Primary documented in this encounter Additional Health Concerns Assessment Noted Time PHQ-9 Depression Total Score: 0 10/17/19 24 3:45 PM EDT documented as of this encounter Care Teams Endo Tech Relationship Specialty Start Date End Date Clara Shearer MD [address] [place] [address] PCP - General Family Medicine 07/24/18 documented as of this encounter
--- OUTSIDE RECORDS SUMMARY | 2025-04-10 14:47 | XMS_ITS | Clinical Summary ---
Author Organization [facility] Address [address] [place] [address] Care Team Providers Care Student Nurse Name Role Phone Manfred Clara Primary Care [...] complete this topic Procedures * Due to [place] state law, this organization might not be sharing negative HIV tests. Procedure Name Priority Date/Time Associated Diagnosis Comments PAP Routine 12/17/2020 2:37 PM EDT Hematometra from Last 3 Months or Most Recently Relevant to Health Maintenance Results * Due to [facility] law, this organization might not be sharing negative HIV tests. * Pap (12/17/2020 2:37 PM EDT) Specimen Adequacy Satisfactory for evaluation [facility] MANUAL 1 5:02 PM EDT [facility] Pathologist Cytology Interpretation Negative for intraepithelial lesion or malignancy. [facility] MANUAL 1 5:02 PM EDT [facility] [employer] [facility] at 1702 EDT Comment:This is the result o f a morphological screening test with an inherent possibility of a false negative interpretation. Histology Tech Statement This Pap test was examined by the [facility] Imaging System, [employer], [place], [place]. This Pap test was examined in accordance with the [facility] Cytopathology Laboratory written policy, which incorporates all CLIA mandates. Screening guidelines can be found in Am J Clin Pathol 2012;137:516-542. We endorse the practice guidelines developed by ASCCP and published in the Journal Lower Genital Tract Disease 17(5):S1-S27 (2013). [place] MANUAL 1 5:02 PM EDT [employer] [facility] Clinical History Hematometra ASS MANUAL 1 5:02 PM EDT [facility] Resulting Agency Case was signed out at [facility], Department of Pathology, [employer] 3 CLIA [id number] [facility] MANUAL 1 5:02 PM EDT [facility] Report Header Gynecologic Cytology Report Case: [id number] Authorizing Provider: Susan Girard Collected: 12/17/2020 4717 Ordering Location: [facility] Received: 12/17/2020 1626 [facility] Obstetrics and Gynecology First Screen: Sissy Dooley Specimen: Screening ThinPrep Pap, Cervix/Endocervix 5:02 PM EDT [employer] [facility] Brushing Cervix uteri structure / Unknown Non-Blood Collection / Unknown 12/17/2020 2:37 PM EDT 12/17/2020 4:26 PM EDT us Susan Girard LAMP SHADES SUPERVISOR LAB PATHOLOGY/CYTOLOGY ORDERABL ES Final Result [facility] [address] [place] [address], from Last 3 Months or Most Recently Relevant to Health Maintenance Insurance [facility] [place] [address] Care Teams Student Nurse Relationship Specialty Start Date End Date Clara Shearer [address] [place] [address] PCP - General Family Medicine 05/26/20
--- OUTSIDE RECORDS SUMMARY | 2025-04-10 14:48 | XMS_ITS | Encounter Summary ---
Author Organization [employer] Address [address] [place] [address] [address] [place] [address] Care Team Providers Care Pin Drafting Machine Operator Name Role Phone Clara Shearer MD Primary Care Provider [phone] Encounter Details Date Type Department Care Team (Latest Contact Info) Description 09/26/2019 Abstract [facility] CONVERSIONS Dental, Provider, DDS Social [...] 8:00 AM EDT Office Visit [facility] ADULT DENTAL [address] [place] [address] Olga, Katt [address] [place] [address] documented as of this encounter Visit Diagnoses Not on filedocumented in this encounter Care Teams Pin Drafting Machine Operator Relationship Specialty Start Date End Date Clara Shearer MD [address] [place] [address] PCP - General Family Medicine 07/24/18 documented as of this encounter
--- OUTSIDE RECORDS SUMMARY | 2025-04-10 14:48 | XMS_ITS | Encounter Summary ---
Author Organization [employer] Address [address], [place] [address] Care Team Providers Care Stock Broker Name Role Phone Clara Shearer MD Primary Care Provider [phone] Reason for Visit * Reason Onset Date Comments Letter for School/Work 08/02/2022 Encounter Details Date Type Department Care Team ([facility] st Contact Info) Description 08/02/2022 Telephone [facility] MEDICINE [address] [place] [address] Clara Shearer MD [address] [place] [address] Letter for School/Work Social History Tobacco Use [...] a upcoming procedure on 08-19-22. Fax number [phone] Any question please contact Ambreen at [phone] ext [phone] * Telephone Encounter - Khang Garcia - 08/04/2022 2:41 PM EST Tc from pankaj with [facility] [place] requesting a call regarding message below Please contact pankaj at [phone] * Telephone Encounter - Ronda Mahan LPN [...] 2:48 PM EST Tc from claudia with [facility] O[facility] requesting a letter stating when pt will be stopping medication ( warfarin 2 mg ) prior to OP Please contact claudia at [phone] ext [phone] documented in this encounter Plan of Treatment Upcoming Encounters Date Type Department Care Team (Late st Contact Info) Description 05/08/2025 8:00 AM EDT Office Visit [facility] ADULT DENTAL [address] [place], [place] [phone] Olga, Katt [address] [place] [address] documented as of this encounter Visit Diagnoses Not on filedocumented in this encounter Care Teams Stock Broker Relationship Specialty Start Date End Date Clara Shearer MD [address] [place] [address] PCP - General Family Medicine 07/24/18 documented as of this encounter
--- OUTSIDE RECORDS SUMMARY | 2025-04-10 14:48 | XMS_ITS | Encounter Summary ---
Author Organization [employer] Address [address] [place] [address] [address] [place] [address] Care Team Providers Care Branch Billing Payroll Clerk Name Role Phone Clara Shearer MD Primary Care Provider [phone] Encounter Details Date Type Department Care Team (Late st Contact Info) Description 07/20/2022 Abstract [facility] MEDICINE [address] [place] [address] Clara Shearer MD [address] [place] [address] Social History Tobacco Use Types Packs/Day Years [...] Description 05/08/2025 8:00 AM EDT Office Visit [facility] ADULT DENTAL [address] [place] [address] Jignesh Espinozaaris [address] [place] [address] documented as of this encounter Visit Diagnoses Not on filedocumented in this encounter Care Teams Branch Billing Payroll Clerk Relationship Specialty Start Date End Date Clara Shearer MD [address] [place] [address] PCP - General Family Medicine 07/24/18 documented as of this encounter
--- OUTSIDE RECORDS SUMMARY | 2025-04-10 14:48 | XMS_ITS | Clinical Summary ---
Author Organization [employer] Address [address] [facility] [address] [place] [address] Care Team Providers Care Director Sales And Marketing Name Role Phone Clara Shearer MD Primary Care Provider Allergies No known active allergies Medications * This document contains information received from the source organization and may not represent a complete record from that organization. Sodium Fluoride (PreviDent 5000 Plus) 1.1 % cream Apply 1 mg to teeth 3 times daily. 1 g 3 03/06/20 24 Active cetirizine (ZyrTEC) 10 MG tablet TAKE 1 TABLET BY MOUTH EVERY DAY 30 tablet 11 10/09/19 25 Active warfarin (Coumadin) 2 MG tabletIndicati ons:History of mechanical aortic valve replacement TAKE 2 TO 4 TABLETS BY MOUTH DAILY DIRECTED BY COUMADIN CLINIC 120 tablet 11 02/09/20 25 Active Ascorbic Acid (vitamin C) 500 MG tablet TAKE 1 TABLET BY MOUTH TWICE DAILY 180 tablet 02/09/20 25 Active cholecalcifero l (D3 Super Strength) 50 MCG (1999 UT) capsule TAKE 1 CAPSULE BY MOUTH EVERY DAY 90 capsule 02/09/20 25 Active olopatadine (Pataday) 0.2 % ophthalmic solution INSTILL 1 DROP INTO THE AFFECTED EYE(S) DAILY NEEDED FOR ITCHING 11/23/19 25 Active SUMAtriptan (Imitrex) 100 MG tablet TAKE 1 TABLET BY MOUTH AT ONSET OF MIGRAINE. MAY REPEAT ONCE AFTER 2 HOURS IF NEEDED, DO NOT EXCEED 2 TABLETS / 24 HOURS Active cyclobenzaprin e (Flexeril) 10 MG tabletIndicati ons:Acute left-sided low back pain without sciatica Take 1 tablet (10 mg) by mouth if needed in the morning, at noon, and at bedtime for muscle spasms for up to [address]. [address] with medication 20 tablet 04/01/20 25 Active tolterodine LA (Detrol LA) 4 MG 24 hr capsule Take 1 capsule (4 mg) by mouth Once per day. 90 capsule 3 04/01/20 25 Active tolterodine LA (Detrol LA) 4 MG 24 hr capsule Take 4 mg by mouth Once per day. 025 Discontinued(Re order (will not trigger notification to Pharmacy)) cyclobenzaprin e (Flexeril) 10 MG tabletIndicati ons:Acute left-sided low back pain without sciatica Take 1 tablet (10 mg) by mouth if needed in the morning, at noon, and at bedtime for muscle spasms for up to [address]. [address] with medication 20 tablet 01/07/20 25 025 Discontinued(Re order (will not trigger notification to Pharmacy)) Active Problems Problem Noted Date Diagnosed Date [...] (obstructive sleep apnea) 05/30/2024 Assessment & Plan (04/04/2025 9:46 PM EDT): - Pt had sleep study in 2023 showing AYESHA. Pt is still waiting for CPAP. Assessment & Plan (12/30/2024 4:40 PM EDT): - Pt had sleep study in 2023 showing AYESHA. Pt is still waiting for CPAP. Assessment & Plan (05/30/2024 12:21 PM EST): - patient has sleep study which was ordered by cold mill supervisor. Patient was referred to sleep medicine specialist [...] PT with minimal improvement - evaluated by [facility] orthopedist in March 2024. MRI in 2023 showed change - pt was seen by spine center provider in September 2024. 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 MRI was ordered and patient was referred to [facility] for injection treatment. - patient has received 3 injection treatments with no improvement - patient was advised to contact [facility] orthopedist to inquire MRI Assessment & Plan [...] pancreatitis in November 2022 - following with [facility] GI, last seen in Feb 2023 - continue working on lifestyle modifications GERD (gastroesophageal reflux disease) Assessment & Plan (05/30/2024 12:22 PM EST): - EGD in Jun 2024 Assessment & Plan (11/03/2023 12:11 PM EDT): - EGD in Jun - continue omeprazole Obesity 03/19/2023 Assessment & Plan (04/04/2025 9:45 PM EDT): - prediabetes / hx gestational diabetes - continue working on lifestyle modifications Assessment & Plan (03/19/2023 1:44 PM EDT): [...] on warfarin - previously prescribed metoprolol by cold mill supervisor; no longer on the medication due to hypotension / dizziness - continue following with cold mill supervisor, [facility] Dr Haynes - last TTE in January 2022, mild mitral valve stenosis - continue current treatment plan per cardiology Assessment & Plan (05/30/2024 12:22 PM EST): - s/p AVR in Feb 2010 - on warfarin - previously prescribed metoprolol by cold mill supervisor; no longer on the medication due to hypotension / dizziness - continue following with cold mill supervisor, [facility] Dr Haynes - last TTE in January 2022, mild mitral valve stenosis - continue current treatment plan per cardiology Assessment & Plan (03/19/2023 1:47 PM EDT): - s/p AVR in Feb 2010 - on warfarin - previously prescribed metoprolol by cold mill supervisor; no longer on the medication due to hypotension / dizziness - continue following with cold mill supervisor, [facility] Dr Haynes - last TTE in January 2022, mild mitral valve stenosis - continue current treatment plan per cardiology Assessment & Plan (11/22/2022 11:35 AM EDT): - s/p AVR in Feb 2010 - on warfarin - previously prescribed metoprolol by cold mill supervisor; no longer on the medication due to hypotension / dizziness - continue following with cold mill supervisor, [facility] Dr Haynes - last TTE in January 2022, mild mitral valve stenosis - continue current treatment plan per cardiology Chronic anticoagulation 11/22/2022 Assessment & Plan (12/30/2024 9:33 AM EDT): - indication: Aortic valve replacement - medication warfarin - goal INR 2-3 - followed by [facility] anticoagulation clinic - last INR was 2.0 on 03/01/23 - continue current management plan Assessment & Plan (05/30/2024 1:41 PM EST): - indication: Aortic valve replacement - medication warfarin - goal INR 2-3 - followed by [facility] anticoagulation clinic - last INR was 2.0 on 03/01/23 - continue current management plan Assessment & Plan (03/19/2023 1:49 PM EDT): - indication: Aortic valve replacement - medication warfarin - goal INR 2-3 - followed by [facility] anticoagulation clinic - last INR was 2.0 on 03/01/23 - continue current management plan Assessment & Plan (11/22/2022 11:40 AM EDT): - indication: Aortic valve replacement - medication warfarin - goal INR 2-3 - followed by [facility] anticoagulation clinic - last INR was 2.4 [...] polyp, benign -Pt has follow-up appointment with [employer]ING PROFESSIONAL -Pt is on Coumadin -Pt requested Hysterectomy, pt will follow-up with [employer] [facility] with possible hysterectomy in future Assessment & Plan (11/08/2022 4:50 PM EDT): s/p Endometrial Curetting's, polyp, benign -Pt has follow-up appointment with [employer] PROFESSION[facility] -Pt is on Coumadin -Pt requested Hysterectomy, pt will follow-up with [employer] PROF[employer] with possible hysterectomy in future Cyst of ovary 09/22/2022 Iron deficiency anemia due to chronic blood loss 09/22/2022 Assessment & Plan (05/30/2024 1:41 PM EST): - AUB in a setting of anticoagulation - s/p removal of endometrial polyp, benign - Pt has follow-up appointment with [facility] PROFESSION[facility] - Pt is taking Coumadin Assessment & Plan (11/03/2023 12:09 PM EDT): - AUB in a setting of anticoagulation - s/p removal of endometrial polyp, benign -Pt has follow-up appointment with [employer] PROFESSIONAL -Pt is taking Coumadin Assessment & Plan (11/08/2022 4:45 PM EDT): Due to AUB: S/p Endometrial Curetting's, polyp, benign -Pt has follow-up appointment with [employer] PROFESSIONAL -Pt is taking Coumadin Vitamin D deficiency 12/04/2018 Assessment & Plan (12/30/2024 9:34 AM EDT): -continue vitamin D supplement Assessment & Plan (11/03/2023 12:08 PM EDT): -continue vitamin D supplement Presence of subdermal contraceptive implant 09/2014 History of mechanical aortic valve replacement 0 04/07/2015 Assessment & Plan (12/30/2024 9:32 AM EDT): - 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 Mechanical aortic valve functioning normally. Moderate mitral valve stenosis. No regurgitation. - Continue warfarin - Continue SBE prophylaxis. Assessment & Plan (05/30/2024 12:22 PM EST): - Timekeeper: Dr. Dallas Duran, last seen in December 2023 - s/p AVR for rheumatic disease and aortic regurgitation in Feb 2010 - EKG showed sinus rhythm and RBBB - echocardiogram 08/30/23 EF 57%. Mechanical aortic valve functioning normally. Moderate mitral valve stenosis. No regurgitation. - Continue warfarin - Continue SBE prophylaxis. Assessment & Plan (11/03/2023 12:18 PM EDT): - Timekeeper: Dr. Dallas Duran, last seen in Aug 2023 - s/p AVR for rheumatic disease and aortic regurgitation in Feb 2010 - EKG showed sinus rhythm and RBBB - echocardiogram 08/30/23 EF 57%. Mechanical aortic valve functioning normally. Moderate mitral valve stenosis. No regurgitation. - Continue warfarin - Continue SBE prophylaxis. Assessment & Plan (03/19/2023 1:47 PM EDT): - Timekeeper: Dr. Dallas Duran, last seen in Jul 2022 - s/p AVR for rheumatic disease and aortic regurgitation in Feb 2010 - EKG showed sinus rhythm and RBBB - echocardiogram JANUARY 2022 nml LVEF 60-65%; mild mitral valve stenosis - Continue aspirin and warfarin, per cardiology. - Continue SBE prophylaxis. Assessment & Plan (11/22/2022 11:37 AM EDT): - Timekeeper: Dr. Dallas HUMPHREY, last seen in Jul 2022 - s/p AVR for rheumatic disease and aortic regurgitation in Feb 2010 - EKG showed sinus rhythm and RBBB - echocardiogram JANUARY 2022 nml LVEF 60-65%; mild mitral valve stenosis - Continue aspirin and warfarin, per cardiology. - Continue SBE prophylaxis. Allergic rhinitis 12/09/2013 Aortic valve regurgitation 07/25/2013 Assessment & Plan (12/30/2024 9:32 AM EDT): - Timekeeper: Dr. Dallas HUMPHREY, last seen in December 2023 - s/p AVR for rheumatic disease and aortic regurgitation due to rheumatic heart disease in Feb 2010 - EKG showed sinus rhythm and RBBB - echocardiogram in Aug 2023, EF 59%. Normally functioning AV. Moderate mitral valve stenosis. - Continue warfarin, per cardiology. - Continue SBE prophylaxis. Assessment & Plan (05/30/2024 12:22 PM EST): - Timekeeper: Dr. Dallas HUMPHREY, last seen in December 2023 - s/p AVR for rheumatic disease and aortic regurgitation due to rheumatic heart disease in Feb 2010 - EKG showed sinus rhythm and RBBB - echocardiogram in Aug 2023, EF 59%. Normally functioning AV. Moderate mitral valve stenosis. - Continue warfarin, per cardiology. - Continue SBE prophylaxis. Assessment & Plan (11/03/2023 12:20 PM EDT): - Timekeeper: Dr. Dallas HUMPHREY, last seen in Aug 2023 - s/p AVR for rheumatic disease and aortic regurgitation due to rheumatic heart disease in Feb 2010 - EKG showed sinus rhythm and RBBB - echocardiogram in Aug 2023, EF 59%. Normally functioning AV. Moderate mitral valve stenosis. - Continue warfarin, per cardiology. - Continue SBE prophylaxis. Assessment & Plan (11/22/2022 11:36 AM EDT): - Timekeeper: Dr. Dallas HUMPHREY, last seen in Jul 2022 - s/p [...] EDT): - 12/03/22 Evaluated and [place] at [facility]. WBC 13k, Lipase 247, CT showed pancreatitis. Given IVF and analgesics. - Seen by [facility] GI in December 2022 - MRI on 03/01/23 was normal. - HgbA1C 5.9% - Follow recommendations per GI. Menometrorrhagia 09/22/2022 03/07/2023 Pain in female pelvis 09/22/20222022 Encounters Date Type Department Care Team Description 04/10/2025 Orders Only GENERIC EXTERNAL DATA DEPARTMENT Provider, Generic External Data 04/01/2025 3:45 PM EDT Office Visit [address] [address] Clara Shearer MD Chronic pain of both shoulders (Primary Dx); Dietary counseling; Exercise counseling; Class 1 obesity due to excess calories with serious comorbidity and body mass index (BMI) of 30.0 to 30.9 in adult; Acute left-sided low back pain without sciatica; AYESHA (obstructive sleep apnea) 04/01/2025 Travel 03/31/[address] [address] Clara Shearer MD chart prep 03/25/[address] [address] Clara Shearer MD Paperwork/Forms 03/20/2025 Orders Only GENERIC EXTERNAL DATA DEPARTMENT Provider, Generic External Data 02/21/2025 Orders Only [address] [address] Clara Shearer MD Hematuria, unspecified type (Primary Dx) 2025 Orders Only GENERIC EXTERNAL DATA DEPARTMENT Provider, Generic External Data 02/14/2025 Results Follow-Up [facility] MEDICINE [address] [place] [address] Clara Shearer MD Albumin, Random Urine W/Creatinine, Urinalysis, Complete, with Reflex to Culture 02/13/2025 3:00 PM EDT Office Visit [facility] OPTOMETRY [address] [place] [address] Kenroy, Meliza, OD Presbyopia (Primary Dx); Meibomian gland disease, unspecified laterality 02/13/2025 Travel 02/07/2025 Refill [facility] MEDICINE [address] [place] [address] Clara Shearer MD History of mechanical aortic valve replacement 01/08/2025 Orders Only GENERIC EXTERNAL DATA DEPARTMENT Provider, Generic External Data from Last 3 Months Immunizations Immunization Administration [...] Sign Reading Time Taken Comments Blood Pressure 106/72 04/01/2025 3:38 PM EDT Pulse 75 04/01/2025 3:38 PM EDT Temperature 36.7 C (98 F) 04/01/2025 3:38 PM EDT Respiratory Rate 20 04/01/2025 3:38 PM EDT Oxygen Saturation 99% 04/01/2025 3:38 PM EDT Inhaled Oxygen Concentration - - Weight 67 kg (147 lb 9.6 oz) 04/01/2025 3:38 PM EDT Height 149 cm (4' 10.66 ) 04/01/2025 3:38 PM EDT Body Mass Index 30.16 04/01/2025 3:38 PM EDT Plan of Treatment Upcoming Encounters Date Type Department Care Team (Late st Contact Info) Description 05/08/2025 8:00 AM EDT Office Visit [facility] ADULT DENTAL [address] [place] [address] Olga, Katt [address] [place] [address] Health Maintenance Due Date Last Done Comments CT Colonography 1977 FIT DNA/Cologuard 1977 FIT 1977 FOBT 1977 Sigmoidoscopy 1977 Family Planning (PISQ) 02/19/1992 Dental Oral Exam 07/21/2024 01/19/2024, , 02/03/2021, Additional history exists Dental X-Ray: Bitewings 12/28/2024 12/28/19 24, 02/03/2021, 09/26/2019 Influenza Vaccine (#1) 2025 , 05/09/2023, 07/12/2021, Additional history exists Dental Prophylaxis 05/03/2025 10/31/2024, 0 12/28/2023, 09/26/2019 Alcohol/Substance Use Screening 05/30/2025 05/30/2024 Depression Monitoring 07/01/2025 12/30/2024, 025 Hepatitis A Vaccines (2 of 2 - Risk 2-dose series) 07/01/2025 12/30/2024 Cervical Cancer Screening 11/13/2025 HPV/Cotest 11/13/2025 11/13/2020, 08/20/2019 Pap Smear 11/13/2025 11/13/2020 Disability Screening 12/30/2025 12/30/2024 Diabetes: Hemoglobin A1C 2026 025, 12/11/2023, 11/16/2023, Additional history exists SDOH Screening 04/01/2026 04/01/2025 Tobacco Screening 04/01/2026 04/01/2025 Dental X-Ray: Full Mouth 04/20/2026 04/19/2023, 01/21 [...] [facility] Routine 04/10/2025 1:26 PM EDT PROTHROMBIN TIME WHOLE BLD POC Routine 03/20/2025 [...] WHOLE BLD POC (04/10/2025 1:26 PM EDT) Only the most recent of4 resultswithin the time period is included. Protime 59.1(H) 11.1 - 13.5 sec [facility] 04/10/2025 1:26 PM EDT 04/10/2025 1:28 PM EDT Generic External Data Provider LAB BLOOD ORDERAB LES Final Result Performing Organization Address City/[facility]/ZIP Co de Phone Number [facility] [address] [place] [phone] * (ABNORMAL) ~PT, ~INR - ANTI COAG CLINIC (04/10/2025 1:26 PM EDT) Only the most recent of4 resultswithin the time period is included. Pathologist [facility] Prothrombin Time INR 4.9(H) 0.9 - 1.1 [facility] Comment:METER #: [id number] TERNATIONAL NORMALIZED RATIO (INR) REFERENCE RANGES Reference [...] 1:26 PM EDT 04/10/2025 1:28 PM EDT Generic External Data Provider LAB BLOOD ORDERAB LES Final Result Performing Organization Address City/[facility]/ZIP Co de Phone Number [facility] [address] [place] [phone] * Vitamin D, 25-Hydroxy, Total, Immunoassay (2025 2:43 PM EDT) Vitamin D 25-OH Total 46.7 >30 ng/mL [facility] Comment: Health Based Reference Values*< 20 ng/mL [id number] ng/mL Insufficient> 30 ng/mL Sufficient*Paul LEVIN. N [...] Provider LAB BLOOD ORDERAB LES Final Result [facility] [address] [place] [phone] * Vitamin B12 (Cobalamin) and Folate Panel, Serum (2025 2:43 PM EDT) Vitamin B12 637 200 - 900 pg/mL [facility] Comment:NORMAL 200-900 PG/ML INDETERMINATE 160-199 PG/ML DEFICIENT < 160 PG/ML Folate 11.2 > or = 4.0 ng/mL [facility] Comment:Reference Values:> o r = 4.0 ng/mL< 4.0 ng/mL suggests folate deficiency Methotrexate, aminopterin and folinic acid(leucovorin) are chemotherapeutic agents whose molecularstructures are similar to folate; therefore, the Architectfolate assay cannot be used for patients using these drugs. 2025 2:43 PM EDT 2025 2:43 PM EDT us Generic External Data Provider LAB BLOOD ORDERAB LES Final Result Performing Organization Address City/[facility]/ZIP Co de Phone Number [facility] [address] [place] [phone] * TSH with Reflex to Free T4 (2025 2:43 PM EDT) TSH reflex Free T4 1.21 0.32 - 4.0 uIU/mL [facility] 2025 2:43 PM EDT 2025 2:43 PM EDT Generic External Data Provider LAB BLOOD ORDERAB LES Final Result Performing Organization Address City/[facility] Co de Phone Number [facility] [address] [place] [phone] * (ABNORMAL) Lipid Panel with Reflex to Direct LDL (2025 2:43 PM EDT) Triglycerides 143 <150 mg/dL [facility] Comment:Desirable Triglyceri de: less than 150 mg/dLBorderline High Triglyceride 150-199 mg/dLHigh Triglyceride: 200-499 mg/dLVery High Triglyceride: greater than or equal to 5OO mg/dL Cholesterol 197 <200 mg/dL [facility] Comment:Desirable Cholestero l: less than 200 mg/dLBorderline High Cholesterol: 200-239 mg/dLHigh Cholesterol: greater than 239 mg/dL LDL Cholesterol Calculated 117(H) <100 mg/dL [facility] Comment:Desirable LDL: less than 100 mg/dLNear Optimal/Above Optimal LDL: 110- 129 mg/dLBorderline High LDL: 130-159 mg/dLHigh LDL: 160-189 mg/dLVery High LDL: greater than or equal to 190 mg/dL HDL Cholesterol 52 >40 mg/dL [facility] Comment:Desirable HDL: great er than 40 mg/dL Note: This HDL assay may give artificially low results in patients with liver disease. 2025 2:43 PM EDT 2025 2:43 PM EDT us Generic External Data Provider LAB BLOOD ORDERAB LES Final Result Performing Organization Address City/[facility]/ZIP Co de Phone Number [facility] [address] [place] [phone] * Methylmalonic Acid (2025 2:43 PM EDT) Methylmalonic Acid 81 55 - 335 nmol/L [facility] Comment: Serum methylmalonic acid (MMA) [...] outcomes,such as neural tube defects and intrauterine growthrestriction.Sellywhere utilized Multi-Modal Decomposition(MMD) analysis to establish first and second trimester-specific MMA reference intervals in , as givenbelow:MMA, First trimester (<13 wks gestation): 58-167 nmol/LMMA, Second trimester (13-23 wks gestation):63-241 nmol/LThis test was developed and its analytical performancecharacteristics have been determined by [employer]. It has not been cleared or approved by theFDA. This assay has been validated pursuant to the CLIAregulations and is used for clinical purposes.THIS TEST WAS PERFORMED AT:[employer]/[id number] [place] [phone] OMER MD,PHD 2025 2:43 PM EDT 2025 2:43 PM EDT us Generic External Data Provider LAB BLOOD ORDERAB LES Final Result Performing Organization Address City/[facility]/ZIP Co de Phone Number [facility] [address] [place] [address] [place] [phone] * CBC (2025 2:43 PM EDT) Pathologist [facility] White Blood Count 5.6 4.8 - 10.8 X10*3/uL [facility] Red Blood Count 4.37 4.20 - 5.50 X10*6/uL [facility] Hemoglobin 13.3 12.0 - 16.0 g/dl [facility] Hematocrit 38.8 37.0 - 47.0 % [facility] Mean Corpuscular Volume 88.8 80.0 - 98.0 fL [facility] Mean Corpuscular Hemoglobin 30.4 27.0 - 33.0 pg [facility] Mean Corpuscular HGB Conc 34.3 31.0 - 35.0 g/dl [facility] Red Cell Distribution Width 12.9 11.0 - 16.0 % [facility] Platelet Count 256 160 - 400 X10*3/uL [facility] Mean Platelet Volume 9.8 9.4 - 12.3 fL [facility] NRBC Pct Auto 0.0 0.0 - 0.2 /100WBC [facility] NRBC Abs Auto 0.000 0.0 - 0.012 X10*3/uL [facility] 2025 2:43 PM EDT 2025 2:43 PM EDT us Generic External Data Provider LAB BLOOD ORDERAB LES Final Result [facility] [address] [place] [phone] * Homocysteine (2025 2:43 PM EDT) Pathologist [facility] Homocysteine 5.0 < or = 11.0 umol/L [facility] Comment:Homocysteine is incr eased by functional deficiency offolate or vitamin B12. Testing for methylmalonic aciddifferentiates between these deficiencies. Other causesof increased homocysteine include renal failure, folateantagonists such as methotrexate and phenytoin, andexposure to nitrous oxide.Sarah Muse, et al., Suha Patroller Med. 1999;131(5):331-9.THIS TEST WAS PERFORMED AT:[employer] [place] [phone] GUPTA MD 2025 2:43 PM EDT 2025 2:43 PM EDT Generic External Data Provider LAB BLOOD ORDERAB LES Final Result Performing Organization Address [facility] Co de Phone Number [facility] [address] [place] [phone] * Hemoglobin A1c (2025 2:43 PM EDT) Hemoglobin A1c 5.7 <6.0 % [facility] Comment:Hemoglobin A1C Refer ence Range Adults: 4.8 - 6.0 % Non diabetic: < 6.0 % Goal: < 7.0 %Additional Action Suggested: > 8.0 %Note: Hemoglobin A1c results are invalid for patients with abnormal amounts of HbF. Blood transfusions may impact the HbA1c concentration in the patient sample. Estimated Average Glucose 117 mg/dL [facility] Comment:eAG = Estimated ave rage glucose which is %A1C expressed asaverage glucose, using the formula of the [id number] Glucose study (ADAG), Diabetes Care, Vol.31,#8,Feb. 2007 2025 2:43 PM EDT 2025 2:43 PM EDT Generic External Data Provider LAB BLOOD ORDERAB LES Final Result Performing Organization Address [facility] Co de Phone Number [facility] [address] [place] [phone] * Ferritin (2025 2:43 PM EDT) Ferritin 93 10 - 250 ng/mL [facility] 2025 2:43 PM EDT 2025 2:43 PM EDT us Generic External Data Provider LAB BLOOD ORDERAB LES Final Result [facility] [address] [place] [phone] * (ABNORMAL) Comprehensive Metabolic Panel (2025 2:43 PM EDT) Sodium 138 135 - 145 mmol/L [facility] Potassium 3.6 3.3 - 5.1 mmol/L [facility] Chloride 108 96 - 108 mmol/L [facility] Carbon Dioxide 23 22 - 29 mmol/L [facility] Anion Gap 11(L) 12 - 20 [facility] Urea Nitrogen (BUN) 13 9 - 16 mg/dL [facility] Creatinine, Serum 0.51 0.5 - 1.4 mg/dL [facility] Estimated Glomerular Filt Rate >60 [facility] Comment:Chronic Kidney Disea se: Estimated GFR < 60 mL/min/[id number] Kidney Disease: Estimated GFR < 15 mL/min/1.73m2 Glucose 99 60 - 115 mg/dL [facility] Calcium 8.8 8.4 - 10.2 mg/dL [facility] Bilirubin, Total 0.5 0.0 - 1.0 mg/dL [facility] Aspartate Amino Transferase 28 5 - 31 U/L [facility] Alanine Aminotransferase 41(H) 0 - 31 U/L [facility] Total Protein 7.1 6.5 - 8.0 g/dL [facility] Albumin Level 4.2 3.5 - 5.0 g/dL [facility] Alkaline Phosphatase 76 39 - 117 U/L [facility] 2025 2:43 PM EDT 2025 2:43 PM EDT us Generic External Data Provider LAB BLOOD ORDERAB LES Final Result Performing Organization Address [facility]/ZIP Co de Phone Number [facility] [address] [place] [address] [phone] * (ABNORMAL) Urinalysis, Complete, with Reflex to Culture (2025 2:38 PM EDT) Only the most recent of2 resultswithin the time period is included. Color Urine Yellow [facility] Appearance Urine Clear [facility] PH 5.5 5.0 - 9.0 [facility] Glucose Urine UA Negative Negative mg/dL [facility] Urine Blood Moderate (2+)(A) Negative [facility] Specific Dunn - Urine 1.015 1.005 - 1.025 [facility] Urine Protein Negative Neg-Trace mg/dL [facility] Urine Ketones Negative Negative mg/dL [facility] Nitrite Urine Negative Negative [facility] Leukocyte Esterase Urine Negative Negative [facility] RBC Urine 0-2 0 - 2 /HPF [facility] Urine WBC 0-5 0 - 5 /HPF [facility] Urine Squamous Epithelial Cell 0-2 0 - 2 /HPF [facility] Urine Bacteria None Seen None Seen [facility] Hyaline Casts, Urine 0-2 0 - 2 /LPF [facility] Urine 2025 2:38 PM EDT 2025 3:15 PM EDT Narrative [facility] - 2025 3:28 PM EDT Urine, Clean Catch us Clara Shearer MD LAB URINE ORDERABLES Final Resul t Performing Organization Address City/[facility]/ZIP Co de Phone Number [facility] [address] [place] [address] [phone] * Albumin, Random Urine W/Creatinine (02/13/2025 4:15 PM EDT) Creatinine, Urine 84.01 mg/dL [facility] Microalbumin Urine 7.0 mg/L [facility] Microalbum Creatinine Ratio Ur 8.3 <30 ug/mg cr [facility] Comment:Albumin/Creatinine R atio Reference Ranges: Normal: < 30 ug/mg creatinine Microalbuminuria: 30 - 300 ug/mg creatinineClinical Albuminuria: > 300 ug/mg creatinine Urine 02/13/2025 4:15 PM EDT 02/13/2025 5:31 PM EDT us Clara Shearer MD LAB URINE ORDERABLES Final Resul t [facility] [address] [place] [address] [phone] * BI Mammogram Screening Tomosynthesis Bilateral (10/04/2024 3:55 PM EDT) Anatomical Region Laterality Modality Breast Bilateral Mammography 10/04/2024 3:55 PM EDT Narrative 10/13/2024 6:12 PM EDT [facility] [address] [place] [address] Mammography Report Signed Patient: Thalia Martell MR#: [id number] : 1975 Acct:[id number] Age/Sex: 49 / F ADM Date: 10/04/24 Loc: .MAMMO Attending Dr: Clara Shearer MD Ordering Physician: Clara Shearer MD Results: 1Negative Date of Service: 10/04/24 Follow Up: 1 Year From [facility] Mammogram Procedure(s): MM tomosynthesis screening BI Accession Number(s): [id number] cc: Clara Shearer MD EXAMINATION: MM SCREENING [...] by June Schrader DO in OV> 10/13/24 1800 DD/ 1556 TD/TT: 10/04/24 160 Developmental Writing Instructor: Procedure Note Donotuseinterpreter, Image - 10/13/2024 [facility] [address] [place] [address] Mammography Report Signed Patient: Yoel Martell#: [id number] : 1975Acct:[id number] Age/Sex: 49 / FADM Date: 10/04/24 Loc: MARIE Attending Dr: Clara Shearer MD Ordering Physician: Clara Shearer MDResults: 1Negative Date of Service: 10/04/24Follow Up: 1 Year From [facility] Mammogram Procedure(s): MM tomosynthesis screening BI Accession Number(s): [id number] cc: Clara Shearer MD EXAMINATION: MM SCREENING [...] 10/13/24 1809 DD/ 1555 TD/TT: 10/04/24 1608 Developmental Writing Instructor: Clara Shearer MD IMG BI PROCEDURES Edited Result - Final * Hepatitis Panel, General (12/11/2023 4:30 PM EDT) Hepatitis A IgM Nonreactive Nonreactive [facility] Comment:IgM antibodies to HEMPHILL V not detected; does not exclude earlyacute or recovered HAV infection. ~Hepatitis B Surface Antibody REACTIVE Nonreactive [facility] Comment:REACTIVE: > 11.99 mI U/mL Hepatitis B Core Antibody Nonreactive Nonreactive [facility] Hepatitis C Antibody Nonreactive Nonreactive [facility] Comment:Antibodies to HCV no t detected; does not exclude early acuteHCV infection. Hepatitis B Surface Ag Negative Negative [facility] 12/11/2023 4:30 PM EDT 12/11/2023 4:33 PM EDT us Generic External Data Provider LAB BLOOD ORDERAB LES Final Result [facility] [address] [place] [address] [phone] * HIV-1 RNA, Quantitative, Real-Time PCR (12/15/2022 8:09 AM EDT) HIV 1 RNA, QN PCR NOT DETECTED NOT DETECTED copies/mL [facility] HIV 1 RNA, QN PCR NOT DETECTED NOT DETECTED Log copies/mL [facility] Comment: This test was performed using Real-Time Polymerase Chain Reaction. Reportable Range: 20 copies/mL to 10,000,000 copies/mL (1.30 log copies/mL to 7.00 log copies/mL). Blood Venous blood specimen / Unknown 12/15/2022 8:09 AM EDT 12/15/2022 8:10 AM EDT Narrative [facility] - 12/23/2022 6:53 PM EDT FASTING:NO FASTING: NO Yany Cosby ENGINEER AND GEOLOGIST LAB BLOOD ORDERABLES Final Res ult [facility] [address] [place] [address], [place] [address] [facility] [address] [place] [address] * THINPREP PAP (11/13/2020 4:51 PM EDT) [...] along with historic and current clinical information. Manager Lsw : SEE COMMENT [facility] Comment: RK, CT(ASCP) CT screening location: [place] [address] Interpretation/R esult: Negative for intraepithelial lesion or malignancy. [facility] LMP: NONE [facility]IVEN [facility] Prev. BX: NONE [facility] Prev. PAP: NONE [facility] Review Manager Lsw : SEE COMMENT [facility] Comment: BLC,CT(ASCP) CT screening location: [place] [address] SOURCE: None given [facility] Statement Of Adequacy: SEE COMMENT [facility] Comment: Satisfactory for evaluation. Endocervical/transformation zone component present. Age and/or menstrual status not provided 11/13/2020 4:51 PM EDT Ginette Her [facility] PATHOLOGY ORDERABLES Final Result Performing Organization Address City/[facility]/ZIP Co de Phone Number [facility] [address] * HPV GENOTYPES 16,18/45 (11/13/2020 4:51 PM EDT) HPV 16 RNA NOT DETECTED NOT DETECTED [facility] HPV 18/45 RNA NOT DETECTED NOT DETECTED [facility] Comment: Methodology: Larriman Helper Mediated Amplification The analytical performance characteristics of this assay have been determined by [facility]. The modifications have not been cleared or approved by the FDA. This assay has been validated pursuant to the CLIA regulations and is used for clinical purposes. 11/13/2020 4:51 PM EDT [facility] CYTOLOGY ORDERABLES Final R esult Performing Organization Address City/[facility]/ZIP Co de Phone Number [facility] [address] from Last 3 Months or Most Recently Relevant to Health Maintenance Insurance [facility] [address] [place] [address] DENTAL - HSN PARTIAL (MEDICAID) Care Teams Director Sales And Marketing Relationship Specialty Start Date End Date Clara Shearer MD [address] [place] [phone] PCP - General Family Medicine 07/24/18
== END 2025-04-10 12:45 | disposition home or self-care (01) ==
LOC: HO.US 12:44
PROVIDERS: PCP Family Medicine; Visit Provider Family Medicine
DX: R31.9 Hematuria, unspecified (principal); Z95.2 Presence of prosthetic heart valve; Z51.81 Encounter for therapeutic drug level monitoring; Z79.01 Long term (current) use of anticoagulants
CPT/HCPCS: 76770; 85610; 99211

== ENCOUNTER → 2025-04-10 12:46 | Outpatient (BNV) | payer OTHER, SELFPAY | PROVIDERS: PCP Family Medicine; Visit Provider Radiology Diagnostic Radiology | DX: R31.9 Hematuria, unspecified (principal) | CPT/HCPCS: 76770 ==

== ENCOUNTER 2025-04-10 13:20 | Outpatient (AMB) | payer OTHER, SELFPAY ==
[2025-04-10 13:29] LABS: Prothrombin Time Whole Bld POC 59.1 sec (11.1-13.5); ~PT, ~INR - Anti Coag Clinic 4.9 (0.9-1.1)
--- NOTE | 2025-04-10 13:32 | MHC.OFFVISCO ---
Intake Intake Visit Reasons: Anticoagulation Allergies peach Allergy (Severe, Verified 04/10/25 13:22) Angioedema Medication List - Last Reconciled 04/10/25 by Ruthy Newby RN ascorbic acid (vitamin C) 500 mg PO BID aspirin (Adult Aspirin Regimen) 81 mg PO DAILY 90 days cetirizine 10 mg PO DAILY cholecalciferol (vitamin D3) 50 mcg PO DAILY cyclobenzaprine 10 mg PO TID PRN hydrocortisone 2.5% (Proctosol HC) 1 appl ME BID-QID PRN multivitamin (One Daily Multivitamin tablet) 1 tab PO DAILY olopatadine 0.2% (Pataday Once Daily Relief) 1 drp ophthalmic (eye) DAILY PRN 30 days MDD as needed omeprazole 20 mg PO DAILY PRN sumatriptan succinate 100 mg PO .prn MDD 200mg tolterodine ER 4 mg PO DAILY PRN topiramate 50 mg PO DAILY PRN warfarin See Protocol orally 6mg daily; Nursing Note INR 4.9 out of therapeutic range- unable to identify reason for elevated INR Medications and supplements reviewed Patient status: Working on her new home,which is a lot of hard work Medications or supplements: no changes Diet: states no changes Denies any signs and symptoms of bleeding or clotting or unusual bruising Bleeding, bruising, clotting discussed Nutritional guidance given: weekly greens Dose: hold today 3mg tomorrow then resume 6mg daily F/U INR Date: 04/18/25 Apply cold compress to any area that has any unusual bleeding or bruising or if you have fallen and or bumped your head. GO to the ER for any hard fall or bump to the head or any bleeding or bruising that does not stop. ?? Patient verbalizing understanding of instructions given. Anti-Coag Initial Assessment Social Hx Patient Tobacco Use Status: Never used Tobacco alcohol intake: never Alcohol intake frequency: does not drink Coding Level of Care Code Est Patient Level 1 Diagnoses Current use of anticoagulant therapy Z79.01 Results AMB INR Fingerstick AMB INR Fingerstick 4.9 Last Edit by Ruthy Newby RN on 04/10/25 13:29 manual entry Assessment & Plan Assessment & Plan (1) Current use of anticoagulant therapy: Comment: Continue Coumadin. Code(s): Z79.01 - longterm (current) use of anticoagulants Category: Medical
--- OUTSIDE RECORDS SUMMARY | 2025-04-10 15:20 | XMS_ITS | Encounter Summary ---
Author Organization [facility] Address [address] [place] [address] Phone Care Team Providers Care Die Cutter Diamond Name Role Phone Clara Shearer MD Primary Care Provider [phone] Encounter Details Date Type Department Care Team (Late st Contact Info) Description 12/04/2022 Procedure Pass [facility], Ct Scan - [address] [address] Social History Tobacco Use Types Packs/Day Years [...] documented as of this encounter Care Teams Die Cutter Diamond Relationship Specialty Start Date End Date Clara Shearer MD [address] [place] [phone] PCP - General Family Medicine 02/16/22 documented as of this encounter Additional Source Comments The information contained in this document represents components of the legal health record. It is not the complete legal health record.[facility]
--- OUTSIDE RECORDS SUMMARY | 2025-04-10 15:20 | XMS_ITS | Encounter Summary ---
Author Organization [facility] Address [address] [place] [address] Phone Care Team Providers Care Dietary Manager Name Role Phone Clara Shearer MD Primary Care Provider [phone] Encounter Details Date Type Department Care Team (Late st Contact Info) Description 06/19/2023 Procedure Pass [facility], Ct Scan - [address] [address] Social History Tobacco Use Types Packs/Day Years [...] 06/19/2023 8:16 AM Wandy Shelby RN * [place] Suicide Severity Rating Scale (Screener/Recent Self-Report) Question [...] documented as of this encounter Care Teams Dietary Manager Relationship Specialty Start Date End Date Clara Shearer MD [address] [place] [phone] PCP - General Family Medicine 02/16/22 documented as of this encounter Additional Source Comments The information contained in this document represents components of the legal health record. It is not the complete legal health record.[facility]
--- OUTSIDE RECORDS SUMMARY | 2025-04-10 15:20 | XMS_ITS | Encounter Summary ---
Author Organization [facility] Address [address] [place] [address] Phone Care Team Providers Care Hay Rake Operator Name Role Phone Unknown, Unknown Primary Care Provider Clara Thompson MD Primary Care Provider [phone] Clara Shearer MD Primary Care Provider [phone] Encounter Details Date Type Department Care Team (Late st Contact Info) Description 11/09/2020 Procedure Pass [facility], Ct Scan - [facility] [address] [place] [address] Social History Tobacco Use Types Packs/Day Years [...] 8:03 PM EDT Marysol Hurt RN * [place] Suicide Severity Rating Scale (Screener/Recent Self-Report) Question [...] documented as of this encounter Care Teams Hay Rake Operator Relationship Specialty Start Date End Date Unknown, Unknown, MD PCP - General 02/24/18 11/09/20 Clara Shearer MD [address] [place] [phone] PCP - General Family Medicine 11/10/20 02/15/22 Clara Shearer MD [address] [place] [address] PCP - General Family Medicine 02/16/22 documented as of this encounter Additional Source Comments The information contained in this document represents components of the legal health record. It is not the complete legal health record.[facility]
--- OUTSIDE RECORDS SUMMARY | 2025-04-10 15:20 | XMS_ITS | Clinical Summary ---
Author Organization [facility] Address [address] [place] [address] Phone Care Team Providers Care Custom Van Converter Name Role Phone Clara Shearer MD Primary Care Provider [phone] Allergies No known active allergies Medications cholecalciferol [...] 5 MG tablet 5 mg. 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 - following with [facility], last seen in Feb 2023 - continue working on lifestyle modifications GERD (gastroesophageal reflux disease) 4 Overview (11/28/2023): Last Assessment & Plan: - [...] on warfarin - previously prescribed metoprolol by punch operator; no longer on the medication due to hypotension / dizziness - continue following with punch operator, [facility] - last TTE in January 2022, mild mitral valve stenosis - continue current treatment plan per cardiology Chronic anticoagulation 11/22/2022 Overview (11/28/2023): Last Assessment & Plan: - indication: Aortic valve replacement - medication warfarin - goal INR 2-3 - followed by [facility] - last INR was 2.0 on 03/01/23 - continue current management plan Abnormal uterine bleeding 11/08/2022 Overview (11/28/2023): Last Assessment & Plan: s/p Endometrial Curetting's, polyp, benign -Pt has follow-up appointment with [facility] -Pt is on Coumadin -Pt requested Hysterectomy, pt will follow-up with [facility] with possible hysterectomy in future Vitamin D deficiency 12/04/2018 Overview (11/28/2023): Last Assessment & Plan: -continue vitamin D supplement History of mechanical aortic valve replacement 0 04/07/2015 Overview (11/28/2023): Last Assessment & Plan: - 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 Mechanical aortic valve functioning normally. Moderate mitral valve stenosis. No regurgitation. - Continue warfarin - Continue SBE prophylaxis. 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 Emergency [address] [place] [address] Discharge Disposition: Home or Self Care 01/09/2025 1:12 PM EDT - 01/09/2025 3:27 PM EDT Emergency [facility] Emergency [address] [place] [address] Discharge Disposition: Home or Self Care from [...] 2022 VIRTUAL COLONOSCOPY 2022 MAMMOGRAM 12/23/2024 12/23/2022, 06/08/2022, 09/05/2019 INFLUENZA VACCINE (#1) 2025 , 07/12/2021, 07/02/2018, Additional history exists COVID-19 VACCINE (4 - 2025- season) 2025 05/09/2023, 11/06/2020, 10/09/2020 SCREENING FOR [...] this topic Medical Devices Implanted Type Area Log Carrier Operator Device Identifier Shelf Expiration Date Model / Serial / Lot Prosthetic Valve Prosthetic Valve Aorta Description:Aortic valve rep lacement in 2009 pt does not know which type of aortic valve was implanted Device Contraceptive 52mg Iud Mirena - Must Order In Multiples Of 5 - [id number] Implanted:Qty: 1 on 08/19/2022 by Ronald Estrada MD at [facility] N/A: Uterus Brayola 06/22/2024 [id number] / / [id number] Procedures Procedure Name Priority Date/Time Associated Diagnosis Comments COVID PANDEMIC RESPIRATORY VIRAL ORDER (PRO) STAT 02/22/2025 11:01 PM EDT RAPID GROUP A STREP SCREEN STAT 02/22/2025 11:01 PM EDT from Last 3 Months Results * (ABNORMAL) Rapid Group A Strep Screen (02/22/2025 11:01 PM EDT) RAPID STREP SCREEN Positive(A ) Negative [facility] Other (Throat) 02/22/2025 11 :01 PM EDT 02/22/2025 11:08 PM EDT Manny Castro MD MICROBIOLOGY - NERAL ORDERABLES Final Result Performing Organization Address [facility] Co de Phone Number [address] [address] * COVID Pandemic Respiratory Viral Order (PRO) (02/22/2025 11:01 PM EDT) Test Ordered Rapid COVID has been ordered [facility] Specimen Source/Description [facility] SARS-CoV 2 (COVID-19) PCR Not Detected Not Detected [facility] Comment: SARS-CoV-2 not detected Negative results do not preclude SARS-CoV-2 infection and should not be used as the sole basis for patient management decisions. Negative results must be combined with clinical observations, patient history, and epidemiological information. Other (Nasopharyngeal swab) 02/22/2025 11:01 PM EDT 02/22/2025 11:08 PM EDT Manny Castro MD BODY FLUIDS AND S TOOLS ORDERABLES Final Result Performing Organization Address [facility] Co de Phone Number [address] [address] from Last 3 Months [facility] [employer] [employer] [employer] NON NSPG PCP S[facility] [employer] [address] [place] [facility] NON NSPG PCP S[facility] [employer] NON NSPG PCP [employer] [place] NON NSPG PCP S[facility] [employer] NON NSPG PCP [facility] [employer] NON NSPG PCP [facility] [employer] Advance Directives For more information, please contact: [phone] (9AM - 5PM [facility], Monday-Monday) * Full Code (Latest Code Status on File) Date Activated Date Inactivated Comments 08/19/2022 9:51 AM Question Answer Comments Code Status Confirmed With: Patient Care Teams Custom Van Converter Relationship Specialty Start Date End Date Clara Shearer MD [address] [place] [address] PCP - General Family Medicine 02/16/22 Additional Source Comments The information contained in this document represents components of the legal health record. It is not the complete legal health record.[facility]
--- OUTSIDE RECORDS SUMMARY | 2025-04-10 15:20 | XMS_ITS | Encounter Summary ---
Author Organization [facility] Address [address] [place] [address] Phone Care Team Providers Care Soap Worker Name Role Phone Clara Shearer MD Primary Care Provider [phone] Encounter Details Date Type Department Care Team (Late st Contact Info) Description 06/19/2023 Procedure Pass [facility], Ct Scan - [address] [address] Social History Tobacco Use Types Packs/Day Years [...] 06/19/2023 8:16 AM Wandy Shelby RN * [place] Suicide Severity Rating Scale (Screener/Recent Self-Report) Question [...] documented as of this encounter Care Teams Soap Worker Relationship Specialty Start Date End Date Clara Shearer MD [address] [place] [address] PCP - General Family Medicine 02/16/22 documented as of this encounter Additional Source Comments The information contained in this document represents components of the legal health record. It is not the complete legal health record.[facility]
--- OUTSIDE RECORDS SUMMARY | 2025-04-10 15:20 | XMS_ITS | Encounter Summary ---
Author Organization [facility] Address [address] [place] [address] Phone Care Team Providers Care Food Service Manager Name Role Phone Clara Shearer MD Primary Care Provider [phone] Encounter Details Date Type Department Care Team (Late st Contact Info) Description 12/04/2022 Procedure Pass [facility], Ct Scan - [address] [address] Social History Tobacco Use Types Packs/Day Years [...] documented as of this encounter Care Teams Food Service Manager Relationship Specialty Start Date End Date Clara Shearer MD [address] [place] [address] PCP - General Family Medicine 02/16/22 documented as of this encounter Additional Source Comments The information contained in this document represents components of the legal health record. It is not the complete legal health record.[facility]
--- OUTSIDE RECORDS SUMMARY | 2025-04-10 15:20 | XMS_ITS | Encounter Summary ---
Author Organization [facility] Address [address] [place] [address] Phone Care Team Providers Care It Trainer Name Role Phone Clara Shearer MD Primary Care Provider [phone] Encounter Details Date Type Department Care Team (Late st Contact Info) Description 08/19/2022 Procedure Pass [place] Admitting Dept - Virtual Department [address] [place] [address] Social History Tobacco Use Types Packs/Day Years [...] documented as of this encounter Care Teams It Trainer Relationship Specialty Start Date End Date Clara Shearer MD [address] [place] [address] PCP - General Family Medicine 02/16/22 documented as of this encounter Additional Source Comments The information contained in this document represents components of the legal health record. It is not the complete legal health record.[facility]
--- OUTSIDE RECORDS SUMMARY | 2025-04-10 15:20 | XMS_ITS | Encounter Summary ---
Author Organization [facility] Address [address] [place] [address] Phone Care Team Providers Care Channel Business Manager Name Role Phone Unknown, Unknown Primary Care Provider Clara Thompson MD Primary Care Provider [phone] Clara Shearer MD Primary Care Provider [phone] Encounter Details Date Type Department Care Team (Late st Contact Info) Description 02/24/2018 Procedure Pass [facility], Ct Scan - [place] [address] [place] [address] Social History Tobacco Use Types Packs/Day Years [...] documented as of this encounter Care Teams Channel Business Manager Relationship Specialty Start Date End Date Unknown, Unknown, PCP - General 02/24/18 11/09/20 Clara Shearer MD [address] [place] [address] PCP - General Family Medicine 11/10/20 02/15/22 Clara Shearer MD [address] [place] [address] PCP - General Family Medicine 02/16/22 documented as of this encounter Additional Source Comments The information contained in this document represents components of the legal health record. It is not the complete legal health record.[facility]
== END 2025-04-10 13:45 | disposition home or self-care (01) ==
LOC: HO.ACS 13:20
PROVIDERS: PCP Family Medicine; Visit Provider Internal Medicine Medical Oncology
DX: Z79.01 Long term (current) use of anticoagulants (principal)

== ENCOUNTER 2025-04-17 14:21 | Outpatient (REF) | payer OTHER, SELFPAY ==
[2025-04-17 15:05] LABS: Prothrombin Time 65.0 SEC (10.9-12.4)
[2025-04-17 15:12] LABS: INTERNATIONAL NORM RATIO 5.7 (0.9-1.1)
== END 2025-04-17 14:22 | disposition home or self-care (01) ==
LOC: HO.LAB 14:21
PROVIDERS: PCP Family Medicine; Visit Provider Internal Medicine Medical Oncology
DX: Z51.81 Encounter for therapeutic drug level monitoring (principal); Z79.01 Long term (current) use of anticoagulants
CPT/HCPCS: 36415; 85610; 99211; 99212

== ENCOUNTER 2025-04-17 14:21 | Outpatient (AMB) | payer OTHER, SELFPAY ==
[2025-04-17 14:27] LABS: Prothrombin Time Whole Bld POC 71.3 sec (11.1-13.5); ~PT, ~INR - Anti Coag Clinic 5.9 (0.9-1.1)
--- NOTE | 2025-04-17 14:40 | MHC.OFFVISCO ---
Intake Intake Visit Reasons: Anticoagulation Allergies peach Allergy (Severe, Verified 04/17/25 14:22) Angioedema Medication List - Last Reconciled 04/17/25 by Silvia Paredes RN ascorbic acid (vitamin C) 500 mg PO BID aspirin (Adult Aspirin Regimen) 81 mg PO DAILY 90 days cetirizine 10 mg PO DAILY cholecalciferol (vitamin D3) 50 mcg PO DAILY cyclobenzaprine 10 mg PO TID PRN hydrocortisone 2.5% (Proctosol HC) 1 appl OR BID-QID PRN multivitamin (One Daily Multivitamin tablet) 1 tab PO DAILY olopatadine 0.2% (Pataday Once Daily Relief) 1 drp ophthalmic (eye) DAILY PRN 30 days MDD as needed omeprazole 20 mg PO DAILY PRN sumatriptan succinate 100 mg PO .prn MDD 200mg tolterodine ER 4 mg PO DAILY PRN topiramate 50 mg PO DAILY PRN warfarin See Protocol orally 6mg daily; Nursing Note INR: 5.9 out of therapeutic range of 2-3. Previous INR 4.9 one week ago on 04/10/25. Pt sent to lab for venous verification. Venous INR: 5.7 Pt denies any new medication, supplement or vitamin. Denies Tylenol use. States she took Flexeril for back spasm and had 2 doses in the last 24 hours. Per Micromedex, this med should have no interaction with Warfarin. Pt denies change in diet. Diet reviewed. The only out of normal routine for pt is she has been eating more corn. Medications and supplements reviewed Patient status: well Medications or supplements: no changes Denies any signs and symptoms of bleeding or clotting or unusual bruising Bleeding, bruising, clotting discussed Nutritional guidance given: to have a serving of greens today and tomorrow Avoid foods that raise the INR Dose: hold today's dose of 6mg and tomorrow's dose of 6mg then 6mg daily F/U INR Date: 04/21/25?? Patient verbalizing understanding of instructions with read back given. T/C to provider Dr Shearer. Spoke to Sabine and reported INR 5.7 with dosing plan and next retest date. Anti-Coag Initial Assessment Social Hx Patient Tobacco Use Status: Never used Tobacco alcohol intake: never Alcohol intake frequency: does not drink Coding Level of Care Code Est Patient Level 2 Diagnoses Current use of anticoagulant therapy Z79.01 Time Spent (min) 30 Comment critical value, pt to lab for venous verification, pt teaching/instructions Assessment & Plan Assessment & Plan (1) Current use of anticoagulant therapy: Comment: Continue Coumadin. Code(s): Z79.01 - 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 Orders: Orders Prothrombin Time INR Today Z79.01 - terminal make up operator (current) use of anticoagulants
--- OUTSIDE RECORDS SUMMARY | 2025-04-17 18:44 | XMS_ITS | Encounter Summary ---
Author Organization [employer] Address [address] [facility] 7t [place] [address] Care Team Providers Care Feed Preparation Operator Name Role Phone Clara Shearer MD Primary Care Provider [phone] Encounter Details Date Type Department Care Team (Late st Contact Info) Description 04/17/2025 Orders Only GENERIC EXTERNAL DATA DEPARTMENT Provider, [...] t he electric, gas, oil or water [employer] threatened to shut off services in your [...] Description 05/08/2025 8:00 AM EDT Office Visit [facility] ADULT DENTAL [address] [place], [place] [phone] Olga, Katt [address] [place] [address] documented as of this encounter Procedures Procedure Name Priority Date/Time Associated Diagnosis Comments PROTHROMBIN TIME-INR Routine 04/17/2025 2:48 PM EDT PROTHROMBIN TIME WHOLE BLD POC Routine 04/17/2025 2:25 PM EDT ~PT, ~INR - ANTI COAG CLINIC Routine 04/17/2025 2:25 PM EDT documented in this encounter Results * (ABNORMAL) Prothrombin Time-INR (04/17/2025 2:48 PM EDT) [facility] Prothrombin Time 65.0(H) 10.9 - 12.4 SEC [facility] INTERNATIONAL NORM RATIO 5.7(HH) 0.9 - 1.1 [facility] Comment:RESULTS OF PT/INR CA LLED TO AND READ BACK BY [JADA]ON 04/17/25 AT 1510 BY KIERAN.INTERNATIONAL NORMALIZED RATIO (INR) REFERENCE RANGES Reference RangeFor patients not on anticoagulant therapy: 0.9 - 1.1INR ranges for oral anticoagulanttherapy:For prevention and treatment of venous thrombosis and pulmonary embolism: 2.0 - 3.0For acute myocardial infarction with aspirin therapy: 2.0 - 3.0For acute myocardial infarction without aspirin therapy: 3.0 - 4.0For patients with mechanical prosthetic heart valves: 2.5 - 3.5 04/17/2025 2:48 PM EDT 04/17/2025 2:48 PM EDT Generic External Data Provider LAB BLOOD ORDERAB LES Final Result Performing Organization Address [facility] Co de Phone Number [facility] [address] [place] [phone] * (ABNORMAL) PROTHROMBIN TIME WHOLE BLD POC (04/17/2025 2:25 PM EDT) Protime 71.3(H) 11.1 - 13.5 sec [facility] 04/17/2025 2:25 PM EDT 04/17/2025 2:27 PM EDT Generic External Data Provider LAB BLOOD ORDERAB LES Final Result Performing Organization Address [facility] Co de Phone Number [facility] [address] [place] [phone] * (ABNORMAL) ~PT, ~INR - ANTI COAG CLINIC (04/17/2025 2:25 PM EDT) Prothrombin Time INR 5.9(HH) 0.9 - 1.1 [facility] Comment:METER #: [id number] TERNATIONAL NORMALIZED RATIO (INR) REFERENCE RANGES Reference RangeFor patients not on anticoagulant therapy: 0.9 - 1.1INR ranges for oral anticoagulanttherapy:For prevention and treatment of venous thrombosis and pulmonary embolism: 2.0 - 3.0For acute myocardial infarction with aspirin therapy: 2.0 - 3.0For acute myocardial infarction without aspirin therapy: 3.0 - 4.0For patients with mechanical prosthetic heart valves: 2.5 - 3.5 04/17/2025 2:25 PM EDT 04/17/2025 2:27 PM EDT us Generic External Data Provider LAB BLOOD ORDERAB LES Final Result [facility] [address] [place] [phone] [phone] documented in this encounter Visit Diagnoses Not on filedocumented in this encounter Additional Health Concerns Assessment Noted Time PHQ-9 Depression Total Score: 17 025 1:38 PM EDT documented as of this encounter Care Teams Feed Preparation Operator Relationship Specialty Start Date End Date Clara Shearer MD [address] [place] [phone] PCP - General Family Medicine 07/24/18 documented as of this encounter
--- OUTSIDE RECORDS SUMMARY | 2025-04-17 18:44 | XMS_ITS | Encounter Summary ---
Author Organization [employer] Address [address] [place] [address], [place] [address] Care Team Providers Care Radiology Director Name Role Phone Clara Shearer MD Primary Care Provider [phone] Reason for Referral * Consultation (Routine) - Closed Specialty Diagnoses / Procedures Referred By Contac t Referred To Contact Physical Therapy Diagnoses Right hip pain Chronic right-sided low back pain, unspecified whether sciatica present Clara Shearer MD [address] [place] [address] Phone: tel: fax: AT Physical Therapy - [address] [address] Phone: tel: fax: Referral ID Status Reason Start Date Expiration Date V isits Requested Visits Authorized [id number] Closed Specialty Services Required 11/14/2023 11/13/2024 1 1 Encounter Details Date Type Department Care Team (Late st Contact Info) Description 11/14/2023 Orders Only [facility] MEDICINE [address] [place], [place] [phone] Clara Shearer MD [address] [place], [place] [phone] Right hip pain (Primary Dx); Chronic right-sided [...] 05/08/2025 8:00 AM EDT Office Visit [facility] ADULT DENTAL [address] [place] [address] Katt Espinoza [address] [place] [address] Scheduled Referrals Name Type Priority Associated Diagnoses [...] EDT Narrative 11/25/2023 8:18 AM EDT [address] [address] XRay Report Signed Patient: Thalia Martell MR#: [id number] : 1975 Acct:[id number] Age/Sex: 48 / F ADM Date: 11/16/23 Loc: [facility] Attending Dr: Clara Shearer MD Ordering Physician: Clara Shearer MD Date of Service: 11/16/23 Procedure(s): XR thoracic spine 2V Accession Number(s): [id number] cc: Clara Shearer MD EXAMINATION: XR THORACOLUMBAR [...] in OV> 11/25/23 0815 DD/ 1549 TD/TT: Operator Command Support Systems: QUINN Procedure Note Donotuseinterpreter, Image - 11/25/[address] [address] XRay Report Signed Patient: Yoel Martell#: [id number] : 1975Acct:[id number] Age/Sex: 48 / FADM Date: 11/16/23 Loc: HO.XRAY Attending Dr: Clara Shearer MD Ordering Physician: Clara Shearer MD Date of Service: 11/16/23 Procedure(s): XR thoracic spine 2V Accession Number(s): [id number] cc: Clara Shearer MD EXAMINATION: XR THORACOLUMBAR [...] MD inOV> 11/25/23 0815 DD/ 1549 TD/TT: Operator Command Support Systems: QUINN Clara Shearer MD IMG XR PROCEDURES [...] documented as of this encounter Care Teams Radiology Director Relationship Specialty Start Date End Date Clara Shearer MD [address] [place] [phone] PCP - General Family Medicine 07/24/18 documented as of this encounter
--- OUTSIDE RECORDS SUMMARY | 2025-04-17 18:44 | XMS_ITS | Encounter Summary ---
Author Organization [employer] Address [address] [place] [address], [place] [address] Care Team Providers Care Pot Washer Name Role Phone Clara Shearer MD Primary Care Provider [phone] Reason for Visit * Reason Onset Date Comments Letter for School/Work 08/02/2022 Encounter Details Date Type Department Care Team ([facility] st Contact Info) Description 08/02/2022 Telephone [facility] MEDICINE [address] [place] [address] Clara Shearer MD [address] [place] [address] Letter for School/Work Social History Tobacco Use [...] a upcoming procedure on 08-19-22. Fax number [phone] Any question please contact Ambreen at [phone] ext [phone] * Telephone Encounter - Khang Garcia - 08/04/2022 2:41 PM EST [place]ank[place] [facility] [place] regarding message below Please contact pankaj at [phone] * Telephone Encounter - Ronda Mahan LPN - 08/04/2022 2:41 PM EST Kelly, this should be done upstairs we do not do letters regarding medication stop or start. Please discuss with Dr. Shearer on what she wants and you can call [facility] to fax that order/letteror if they will take verbal orders from you that is even easier. * Telephone Encounter - Kelly Campuzano RN - 08/02/2022 3:33 PM EST Pt having procedure (dilation and curettage with hysteroscopy to place mirena) at [facility] 08/19/22. They are requesting a letter stating when pt should stop and restart coumadin (how many days before and after). * Telephone Encounter - Khang Garcia - 08/02/2022 2:48 PM EST Tc from claudia with [facility] requesting a letter stating when pt will be stopping medication ( warfarin 2 mg ) prior to OP Please contact claudia at [phone] ext [phone] documented in this encounter Plan of Treatment Upcoming Encounters Date Type Department Care Team (Late st Contact Info) Description 05/08/2025 8:00 AM EDT Office Visit [facility] ADULT DENTAL [address] [place], [place] [phone] Olga, Katt [address] [place] [address] documented as of this encounter Visit Diagnoses Not on filedocumented in this encounter Care Teams Pot Washer Relationship Specialty Start Date End Date Clara Shearer MD [address] [place] [address] PCP - General Family Medicine 07/24/18 documented as of this encounter
--- OUTSIDE RECORDS SUMMARY | 2025-04-17 18:44 | XMS_ITS | Encounter Summary ---
Author Organization [facility] Address [address] [place] [address] Phone Care Team Providers Care Casino Change Attendant Name Role Phone Clara Shearer MD Primary Care Provider [phone] Encounter Details Date Type Department Care Team (Late st Contact Info) Description 08/19/2022 Procedure Pass OR Admitting Dept - Virtual Department [address] [place] [address] Social History Tobacco Use Types Packs/Day Years [...] documented as of this encounter Care Teams Casino Change Attendant Relationship Specialty Start Date End Date Clara Shearer MD [address] [place] [phone] PCP - General Family Medicine 02/16/22 documented as of this encounter Additional Source Comments The information contained in this document represents components of the legal health record. It is not the complete legal health record.[facility]
--- OUTSIDE RECORDS SUMMARY | 2025-04-17 18:44 | XMS_ITS | Encounter Summary ---
Author Organization [facility] Address [address] [place] [address] Phone Care Team Providers Care Cutter Barrel Drum Name Role Phone Unknown, Unknown Primary Care Provider Clara Thompson MD Primary Care Provider [phone] Clara Shearer MD Primary Care Provider [phone] Encounter Details Date Type Department Care Team (Late st Contact Info) Description 02/24/2018 Procedure Pass [facility], Ct Scan - [facility] [address] [place] [address] Social History Tobacco Use Types Packs/Day Years [...] documented as of this encounter Care Teams Cutter Barrel Drum Relationship Specialty Start Date End Date Unknown, Unknown, PCP - General 02/24/18 11/09/20 Clara Shearer MD [address] [place] [address] PCP - General Family Medicine 11/10/20 02/15/22 Clara Shearer MD [address] [place] [address] PCP - General Family Medicine 02/16/22 documented as of this encounter Additional Source Comments The information contained in this document represents components of the legal health record. It is not the complete legal health record.[facility]
--- OUTSIDE RECORDS SUMMARY | 2025-04-17 18:44 | XMS_ITS | Encounter Summary ---
Author Organization [employer] Address [address] [facility] [address] [place] [address] Care Team Providers Care Moss Bleacher Name Role Phone Clara Shearer MD Primary Care Provider [phone] Encounter Details Date Type Department Care Team ([facility] st Contact Info) Description 01/22/2024 Orders Only [facility] MEDICINE [address] [place], [place] [phone] Clara Shearer MD [address] [place], [place] [phone] History of mechanical aortic valve replacement Social [...] Description 05/08/2025 8:00 AM EDT Office Visit [facility] ADULT DENTAL [address] [place] [address] Katt Espinoza [address] [place] [address] documented as of this encounter Visit Diagnoses Diagnosis History of mechanical aortic valve replacement documented in this encounter Additional Health Concerns Assessment Noted Time PHQ-9 Depression Total Score: 0 10/17/19 24 3:45 PM EDT documented as of this encounter Care Teams Moss Bleacher Relationship Specialty Start Date End Date Clara Shearer MD [address] [place] [address] PCP - General Family Medicine 07/24/18 documented as of this encounter
--- OUTSIDE RECORDS SUMMARY | 2025-04-17 18:44 | XMS_ITS | Encounter Summary ---
Author Organization [facility] Address [address] [place] [address] Phone Care Team Providers Care Care Director Rn Name Role Phone Clara Shearer MD Primary Care Provider [phone] Encounter Details Date Type Department Care Team (Late st Contact Info) Description 12/04/2022 Procedure Pass [facility], Ct Scan - [address] [address] Social History Tobacco Use Types Packs/Day Years [...] documented as of this encounter Care Teams Care Director Rn Relationship Specialty Start Date End Date Clara Shearer MD [address] [place] [phone] PCP - General Family Medicine 02/16/22 documented as of this encounter Additional Source Comments The information contained in this document represents components of the legal health record. It is not the complete legal health record.[facility]
--- OUTSIDE RECORDS SUMMARY | 2025-04-17 18:44 | XMS_ITS | Encounter Summary ---
Author Organization [facility] Address [address] [place] [address] Phone Care Team Providers Care Medium Cycle Salesperson Name Role Phone Clara Shearer MD Primary Care Provider [phone] Encounter Details Date Type Department Care Team (Late st Contact Info) Description 06/19/2023 Procedure Pass [facility], Ct Scan - [address] [address] Social History Tobacco Use Types Packs/Day Years [...] 06/19/2023 8:16 AM Wandy Shelby RN * [place] Suicide Severity Rating Scale (Screener/Recent Self-Report) Question [...] documented as of this encounter Care Teams Medium Cycle Salesperson Relationship Specialty Start Date End Date Clara Shearer MD [address] [place] [address] PCP - General Family Medicine 02/16/22 documented as of this encounter Additional Source Comments The information contained in this document represents components of the legal health record. It is not the complete legal health record.[facility]
--- OUTSIDE RECORDS SUMMARY | 2025-04-17 18:44 | XMS_ITS | Encounter Summary ---
Author Organization [facility] Address [address] [place] [address] Phone Care Team Providers Care Internal Medicine Physician Assistant Name Role Phone Unknown, Unknown Primary Care Provider Clara Thompson MD Primary Care Provider [phone] Clara Shearer MD Primary Care Provider [phone] Encounter Details Date Type Department Care Team (Late st Contact Info) Description 11/09/2020 Procedure Pass [facility], Ct Scan - [facility] [address] [place] [address] Social History Tobacco Use Types Packs/Day Years [...] 8:03 PM EDT Marysol Hurt RN * [place] Suicide Severity Rating Scale (Screener/Recent Self-Report) Question [...] documented as of this encounter Care Teams Internal Medicine Physician Assistant Relationship Specialty Start Date End Date Unknown, Unknown, MD PCP - General 02/24/18 11/09/20 Clara Shearer MD [address] [place] [address] PCP - General Family Medicine 11/10/20 02/15/22 Clara Shearer MD [address] [place] [address] PCP - General Family Medicine 02/16/22 documented as of this encounter Additional Source Comments The information contained in this document represents components of the legal health record. It is not the complete legal health record.[facility]
--- OUTSIDE RECORDS SUMMARY | 2025-04-17 18:44 | XMS_ITS | Encounter Summary ---
Author Organization [facility] Address [address] [place] [address] Phone Care Team Providers Care Bilingual Sales Assistant Name Role Phone Clara Shearer MD Primary Care Provider [phone] Encounter Details Date Type Department Care Team (Late st Contact Info) Description 06/19/2023 Procedure Pass [facility], Ct Scan - [address] [address] Social History Tobacco Use Types Packs/Day Years [...] 06/19/2023 8:16 AM Wandy Shelby RN * [place] Suicide Severity Rating Scale (Screener/Recent Self-Report) Question [...] documented as of this encounter Care Teams Bilingual Sales Assistant Relationship Specialty Start Date End Date Clara Shearer MD [address] [place] [phone] PCP - General Family Medicine 02/16/22 documented as of this encounter Additional Source Comments The information contained in this document represents components of the legal health record. It is not the complete legal health record.[facility]
--- OUTSIDE RECORDS SUMMARY | 2025-04-17 18:44 | XMS_ITS | Encounter Summary ---
Author Organization [email or web address] Address [address] [place] [address] 7t [place] [address] Care Team Providers Care Ballast Regulator Operator Name Role Phone Clara Shearer MD Primary Care Provider [phone] Reason for Referral * Imaging (Routine) - Closed Specialty Diagnoses / Procedures Referred By Contac t Referred To Contact Radiology Diagnoses Hematuria, unspecified type Procedures US RENAL BI Clara Shearer MD [address] [place] [address] Phone: tel: fax: [address] Phone: tel: fax: Referral ID Status Reason Start Date Expiration Date Visits Re quested Visits Authorized [id number] Closed 02/21/2025 02/21/2026 1 1 Encounter Details Date Type Department Care Team (Late st Contact Info) Description 02/21/2025 Orders Only [facility] MEDICINE [address] [place], [place] [phone] Clara Shearer MD [address] [place], [place] [phone] Hematuria, unspecified type (Primary Dx) Social History [...] Description 05/08/2025 8:00 AM EDT Office Visit [facility] ADULT DENTAL [address] [place] [address] Jignesh Espinozaaris [address] [place] [address] Scheduled Orders Name Type Priority Associated Diagnoses Orde r Schedule US RENAL BI Imaging Routine Hematuria, unspecified type Expected: 02/21/2025, Expires: 02/21/2026 documented as of this encounter Procedures Procedure Name Priority Date/Time Associated Diagnosis Comments US RETROPERITONEAL COMPLETE Routine 04/11/2025 9:01 AM EDT documented in this encounter Results * US Retroperitoneal Complete (04/11/2025 9:01 AM EDT) Anatomical Region Laterality Modality Ultrasound 04/11/2025 9:01 AM EDT Narrative 04/11/2025 9:02 AM EDT [address] [address] Ultrasound Report Signed Patient: Thalia Martell MR#: [id number] 2088 : 1975 Acct:[id number] Age/Sex: 50 / F ADM Date: 04/10/25 Loc: HO.US Attending Dr: Clara Shearer MD Ordering Physician: Clara Shearer MD Date of Service: 04/10/25 Procedure(s): US retroperitoneal comp Accession Number(s): [id number] cc: Clara Shearer MD Reason for Exam: hematuria CLINICAL HISTORY: hematuria US Renal Comparison: None provided Findings: Right kidney normal size and echotexture, 10.9 cm length. Left kidney normal size and echotexture, 12.7 cm length. The tangled yarn worker demonstrates mild pelvic fullness bilaterally. It is unclear whether or not the images of the kidneys are pre or postvoid. Normal color Doppler. Urinary bladder is unremarkable. Prevoid volume 410 mL. Postvoid volume 27 mL. Bilateral ureteral jets are visualized. IMPRESSION: 1. Mild pelvic fullness. 2. No significant postvoid residual within the bladder. This document has been electronically signed by: Mari Macedo MD on 04/11/2025 09:01:08 Dictated By: Mari Macedo MD Signed By: <Electronically signed by Mari Macedo MD in OV> 04/11/25901 DD/ 0 TD/TT: 04/11/25900 Pick Up Attendant: Procedure Note Donotuseinterpreter, Image - 04/11/[address] [address] Ultrasound Report Signed Patient: Yoel Martell#: [id number] 2088 : 1975Acct:[id number] Age/Sex: 50 / FADM Date: 04/10/25 Loc: HO.US Attending Dr: Clara Shaerer MD Ordering Physician: Clara Shearer MD Date of Service: 04/10/25 Procedure(s): US retroperitoneal comp Accession Number(s): [id number] cc: Clara Shearer MD Reason for Exam: hematuria CLINICAL HISTORY: hematuria US Renal Comparison: None provided Findings: Right kidney normal size and echotexture, 10.9 cm length. Left kidney normal size and echotexture, 12.7 cm length. The tangled yarn worker demonstrates mild pelvic fullness bilaterally. It is unclear whether or not the images of the kidneys are pre or postvoid. Normal color Doppler. Urinary bladder is unremarkable. Prevoid volume 410 mL. Postvoid volume 27 mL. Bilateral ureteral jets are visualized. IMPRESSION: 1. Mild pelvic fullness. 2. No significant postvoid residual within the bladder. This document has been electronically signed by: Mari Macedo MD on 04/11/2025 09:01:08 Dictated By: Mari Macedo MD Signed By: <Electronically signed by Mari Macedo MD in OV> 04/11/25901 DD/ 0 TD/TT: 04/11/25900 Pick Up Attendant: Clara Shearer MD IMG US PROCEDURES Edited Result - Final documented in this encounter Visit Diagnoses Diagnosis Hematuria, unspecified type- Primary documented in this encounter Additional Health Concerns Assessment Noted Time PHQ-9 Depression Total Score: 17 025 1:38 PM EDT documented as of this encounter Care Teams Ballast Regulator Operator Relationship Specialty Start Date End Date Clara Shearer MD [address] [place] [address] PCP - General Family Medicine 07/24/18 documented as of this encounter
--- OUTSIDE RECORDS SUMMARY | 2025-04-17 18:44 | XMS_ITS | Clinical Summary ---
Author Organization [facility] Address [address] [facility] [place] [address] Phone Care Team Providers Care Ball Holder Name Role Phone Clara Shearer MD Primary Care Provider [phone] Allergies No known active allergies Medications cholecalciferol [...] pancreatitis in November 2022 - following with [facility], last seen in Feb 2023 - [...] on warfarin - previously prescribed metoprolol by passenger relations representative; no longer on the medication due to hypotension / dizziness - continue following with passenger relations representative, [facility] Dr Haynes - last TTE in January 2022, mild mitral valve stenosis - continue current treatment plan per cardiology Chronic anticoagulation 11/22/2022 Overview (11/28/2023): Last Assessment & Plan: - indication: Aortic valve replacement - medication warfarin - goal INR 2-3 - followed by [facility] anticoagulation clinic - last INR was 2.0 on 03/01/23 - continue current management plan Abnormal uterine bleeding 11/08/2022 Overview (11/28/2023): Last Assessment & Plan: s/p Endometrial Curetting's, polyp, benign -Pt has follow-up appointment with HOUSEKEEPING ATTENDANT -Pt is on Coumadin -Pt requested Hysterectomy, pt will follow-up with HOUSEKEEPING ATTENDANT with possible hysterectomy in future Vitamin D deficiency 12/04/2018 Overview (11/28/2023): Last Assessment & Plan: -continue vitamin D supplement History of mechanical aortic valve replacement 0 04/07/2015 Overview (11/28/2023): Last Assessment & Plan: - 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 Mechanical aortic valve functioning normally. Moderate mitral valve stenosis. No regurgitation. - Continue warfarin - Continue SBE prophylaxis. Allergic rhinitis 12/09/2013 Aortic valve regurgitation 07/25/2013 Overview (11/28/2023): Last Assessment & Plan: - Ropewalk Rope Maker[facility], last seen in Aug 2023 - [...] EDT - 02/23/2025 2:40 AM EDT Emergency [facility] [address] [place] [address] Discharge Disposition: Home or Self Care from [...] 07/12/2021, 07/02/2018, Additional history exists COVID-19 VACCINE ( season) 2025 05/09/2023, 11/06/2020, 10/09/2020 SCREENING FOR [...] this topic Medical Devices Implanted Type Area Mobile Health Vehicle Operator Device Identifier Shelf Expiration Date Model / Serial / Lot Prosthetic Valve Prosthetic Valve Aorta Description:Aortic valve rep lacement in 2009 pt does not know which type of aortic valve was implanted Device Contraceptive 52mg Iud Mirena - Must Order In Multiples Of 5 - [id number] Implanted:Qty: 1 on 08/19/2022 by Ronald Estrada MD at [facility] N/A: Uterus [facility] 06/22/2024 [id number] / / [id number] Procedures Procedure Name Priority Date/Time Associated Diagnosis Comments COVID PANDEMIC RESPIRATORY VIRAL ORDER (PRO) STAT 02/22/2025 11:01 PM EDT RAPID GROUP A STREP SCREEN STAT 02/22/2025 11:01 PM EDT from Last 3 Months Results * (ABNORMAL) Rapid Group A Strep Screen (02/22/2025 11:01 PM EDT) RAPID STREP SCREEN Positive(A ) Negative [facility] Other (Throat) 02/22/2025 11 :01 PM EDT 02/22/2025 11:08 PM EDT Manny Castro MD MICROBIOLOGY - NERAL ORDERABLES Final Result Performing Organization Address [facility]/ZIP Co de Phone Number [address] [address] * COVID Pandemic Respiratory Viral Order (PRO) (02/22/2025 11:01 PM EDT) Test Ordered Rapid COVID has been ordered [facility] Specimen Source/Description NASAL [facility] SARS-CoV 2 (COVID-19) PCR Not Detected Not Detected [facility] Comment: SARS-CoV-2 not detected Negative results do not preclude SARS-CoV-2 infection and should not be used as the sole basis for patient management decisions. Negative results must be combined with clinical observations, patient history, and epidemiological information. Other (Nasopharyngeal swab) 02/22/2025 11:01 PM EDT 02/22/2025 11:08 PM EDT Manny Castro MD BODY FLUIDS AND S TOOLS ORDERABLES Final Result Performing Organization Address [facility] Co de Phone Number [address] [address] from Last 3 Months Insurance WELLSENSE NON NSPG PCP [facility] [place] [address] WELLSENSE NON NSPG PCP [facility] NSPG PCP [facility] NON NSPG PCP [employer] [facility] [employer] NON NSPG PCP [facility] NON NSPG PCP [facility] NON NSPG PCP [facility] NON NSPG PCP [facility] NON NSPG PCP [facility] [employer] Advance Directives For more information, please contact: [phone] (9AM - 5PM [facility], Monday-Monday) * Full Code (Latest Code Status on File) Date Activated Date Inactivated Comments 08/19/2022 9:51 AM Question Answer Comments Code Status Confirmed With: Patient Care Teams Ball Holder Relationship Specialty Start Date End Date Clara Shearer MD [address] [place] [address] PCP - General Family Medicine 02/16/22 Additional Source Comments The information contained in this document represents components of the legal health record. It is not the complete legal health record.[facility]
--- OUTSIDE RECORDS SUMMARY | 2025-04-17 18:44 | XMS_ITS | Clinical Summary ---
Author Organization [facility] Address [address] [place] [address] Care Team Providers Care Review Rn Name Role Phone Manfred Clara Primary Care Provider [phone] Allergies No known active allergies Medications aspirin [...] this topic Procedures * Due to [place] state law, this organization might not be sharing negative HIV tests. Procedure Name Priority Date/Time Associated Diagnosis Comments PAP Routine 12/17/2020 2:37 PM EDT Hematometra from Last 3 Months or Most Recently Relevant to Health Maintenance Results * Due to [facility] law, this organization might not be sharing negative HIV tests. * Pap (12/17/2020 2:37 PM EDT) Specimen Adequacy Satisfactory for evaluation [facility] MANUAL 1 5:02 PM EDT [facility] Pathologist Cytology Interpretation Negative for intraepithelial lesion or malignancy. [facility] MANUAL 1 5:02 PM EDT [facility]ENTERApptimize [facility] at 1702 EDT Comment:This is the result o f a morphological screening test with an inherent possibility of a false negative interpretation. Technical Report Writer Statement This Pap test was examined by the [facility], [place], [place], [place]. This Pap test was examined in accordance with the [facility] Cytopathology Laboratory written policy, which incorporates all CLIA mandates. Screening guidelines can be found in Am J Clin Pathol 2012;137:516-542. We endorse the practice guidelines developed by ASCCP and published in the Journal Lower Genital Tract Disease 17(5):S1-S27 (2013). [place] MANUAL 1 5:02 PM EDT [employer] [facility] Clinical History Hematometra ASS MANUAL 1 5:02 PM EDT [facility]ENTERTreFoil EnergyASHTABULA COUNTY [facility] eBrevia [facility] Resulting Agency Case was signed out at [facility], Department of Pathology, [employer] 3 CLIA [id number] [facility] MANUAL 1 5:02 PM EDT [facility]ENTERNovasentisOK eBrevia [facility] Report Header Gynecologic Cytology Report Case: [id number] Authorizing Provider: Susan Girard Collected: 12/17/2020 [id number] Ordering Location: [facility] Received: 12/17/2020 1626 [facility] Obstetrics and Gynecology First Screen: Sissy Dooley Specimen: Screening ThinPrep Pap, Cervix/Endocervix 5:02 PM EDT [facility] Brushing Cervix uteri structure / Unknown Non-Blood Collection / Unknown 12/17/2020 2:37 PM EDT 12/17/2020 4:26 PM EDT us Susan Girard [facility] PATHOLOGY/CYTOLOGY ORDERABL ES Final Result [facility] [address] [place] [address], from Last 3 Months or Most Recently Relevant to Health Maintenance Insurance [facility]/[place] [address] [address] Care Teams Review Rn Relationship Specialty Start Date End Date Clara Shearer [address] [place] [address] PCP - General Family Medicine 05/26/20
--- OUTSIDE RECORDS SUMMARY | 2025-04-17 18:44 | XMS_ITS | Encounter Summary ---
Author Organization [employer] Address [address] [facility] 7t [place] [address] Care Team Providers Care Financial Recording Clerk Name Role Phone Clara Shearer MD Primary Care Provider [phone] Reason for Visit * Reason Onset Date Comments rs prophy 05/22/2023 Encounter Details Date Type Department Care Team ([facility] st Contact Info) Description 05/22/2023 Telephone [facility] ADULT DENTAL [address] [place], [place] [phone] Olga, Katt [address] [place] [address] rs prophy Social History Tobacco Use Types [...] 8:00 AM EDT Office Visit [facility] ADULT DENTAL [address] [place] [address] Katt Espinoza [address] [place] [address] documented as of this encounter Visit Diagnoses Not on filedocumented in this encounter Additional Health Concerns Assessment Noted Time PHQ-9 Depression Total Score: 5 03/07/20 23 3:27 PM EDT documented as of this encounter Care Teams Financial Recording Clerk Relationship Specialty Start Date End Date Clara Shearer MD [address] [place] [address] PCP - General Family Medicine 07/24/18 documented as of this encounter
--- OUTSIDE RECORDS SUMMARY | 2025-04-17 18:44 | XMS_ITS | Encounter Summary ---
Author Organization [employer] Address [address] [facility] 7t [place] [address] Care Team Providers Care Painter Touch Up Name Role Phone Clara Shearer MD Primary Care Provider [phone] Reason for Visit * Reason Onset Date Comments Nurse Triage 06/05/2023 Encounter Details Date Type Department Care Team ([facility] st Contact Info) Description 06/05/2023 Telephone [facility] MEDICINE [address] [place], [place] [phone] Clara Shearer MD [address] [place], [place] [phone] Nurse Triage Social History Tobacco Use Types [...] 06/05/2023 4:47 PM EST Triage call with [place] [employer] Operator [place] [id number] Pt reports headaches which have started 2 [...] to try this. Pt will come to [facility] tomorrow 06/06/23 to be seen by [...] Nausea as well Please contact pt at [phone] Estonian Speaker. documented in this encounter Plan of Treatment Upcoming Encounters Date Type Department Care Team (Late st Contact Info) Description 05/08/2025 8:00 AM EDT Office Visit [facility] ADULT DENTAL [address] [place] [address] Olga, Katt [address] [place] [address] documented as of this encounter Visit Diagnoses Not on filedocumented in this encounter Additional Health Concerns Assessment Noted Time PHQ-9 Depression Total Score: 5 03/07/20 23 3:27 PM EDT documented as of this encounter Care Teams Painter Touch Up Relationship Specialty Start Date End Date Clara Shearer MD [address] [place] [address] PCP - General Family Medicine 07/24/18 documented as of this encounter
--- OUTSIDE RECORDS SUMMARY | 2025-04-17 18:44 | XMS_ITS | Encounter Summary ---
Author Organization [employer] Address [address] [place] [address] 7 [place] [address] Care Team Providers Care Medical Affairs Leader Name Role Phone Clara Shearer MD Primary Care Provider [phone] Reason for Referral * Imaging (Routine) - Closed Specialty Diagnoses / Procedures Referred By Contac t Referred To Contact Radiology Diagnoses Metabolic dysfunction-associated steatotic liver disease (MASLD) Procedures US Abdomen Comp w elastography Clara Shearer MD [address] [place] [address] Phone: tel: fax: [address] Phone: tel: fax: Referral ID Status Reason Start Date Expiration Date Visits Re quested Visits Authorized [id number] Closed 11/17/2023 11/16/2024 1 1 Encounter Details Date Type Department Care Team (Late st Contact Info) Description 11/17/2023 Orders Only [facility] MEDICINE [address] [place], [place] [phone] Clara Shearer MD [address] [place], [place] [phone] Metabolic dysfunction-associated steatotic liver disease (MASLD) (Primary [...] AM EDT Office Visit [facility] ADULT DENTAL [address] [place] [address] Jignesh Espinozaaris [address] [place] [address] documented as of this encounter Procedures Procedure Name Priority Date/Time Associated Diagnosis Comments US ABDOMEN COMPLETE WITH ELASTOGRAPHY Routine 12/05/2023 9:26 AM EDT Metabolic dysfunction-associa ebony steatotic liver disease (MASLD) documented in this encounter Results * US Abdomen Comp w elastography (12/05/2023 9:26 AM EDT) Anatomical Region Laterality Modality Abdomen Ultrasound 12/05/2023 9:26 AM EDT Narrative 12/12/2023 9:41 AM EDT [place] [address] Ultrasound Report Signed Patient: Thalia Martell MR#: [id number] 2088 : 1975 Acct:[id number] Age/Sex: 48 / F ADM Date: 12/05/23 Loc: HO.US Attending Dr: Clara Shearer MD Ordering Physician: Clara Shearer MD Date of Service: 12/05/23 Procedure(s): US abdomen comp w elastography Accession Number(s): [id number] cc: Clara Shearer MD EXAMINATION: US COMPLETE [...] MD in OV> 12/12/2337 DD/ 5 TD/TT: Back Joiner: SS Procedure Note Donotuseinterpreter, Image - 12/12/[address] [address] Ultrasound Report Signed Patient: Yoel Martell#: [id number] 2088 : 1975Acct:[id number] Age/Sex: 48 / FADM Date: 12/05/23 Loc: HO.US Attending Dr: Clara Shearer MD Ordering Physician: Clara Shearer MD Date of Service: 12/05/23 Procedure(s): US abdomen comp w elastography Accession Number(s): [id number] cc: Clara Shearer MD EXAMINATION: US COMPLETE [...] MD in OV> 12/12/2337 DD/ 5 TD/TT: Back Joiner: SS us Clara Shearer MD IMG US PROCEDURES Final Result documented in this encounter Visit Diagnoses Diagnosis Metabolic dysfunction-associated steatotic liver disease (MASLD)- Primary documented in this encounter Additional Health Concerns Assessment Noted Time PHQ-9 Depression Total Score: 0 10/17/19 24 3:45 PM EDT documented as of this encounter Care Teams Medical Affairs Leader Relationship Specialty Start Date End Date Clara Shearer MD [address] [place] [address] PCP - General Family Medicine 07/24/18 documented as of this encounter
--- OUTSIDE RECORDS SUMMARY | 2025-04-17 18:44 | XMS_ITS | Encounter Summary ---
Author Organization [facility] Address [address] [place] [address] Phone Care Team Providers Care Commissioning Agent Name Role Phone Clara Shearer MD Primary Care Provider [phone] Encounter Details Date Type Department Care Team (Late st Contact Info) Description 12/04/2022 Procedure Pass [facility], Ct Scan - [address] [place] [address] [address] Social History Tobacco Use Types Packs/Day Years [...] documented as of this encounter Care Teams Commissioning Agent Relationship Specialty Start Date End Date Clara Shearer MD [address] [place] [address] PCP - General Family Medicine 02/16/22 documented as of this encounter Additional Source Comments The information contained in this document represents components of the legal health record. It is not the complete legal health record.[facility]
--- OUTSIDE RECORDS SUMMARY | 2025-04-17 18:44 | XMS_ITS | Encounter Summary ---
Author Organization [employer] Address [address] [facility] 7t [place] [address] Care Team Providers Care Park Landscape Architect Name Role Phone Clara Shearer MD Primary Care Provider [phone] Reason for Visit * Reason Onset Date Comments Critical Result 04/17/2025 Encounter Details Date Type Department Care Team ([facility] st Contact Info) Description 04/17/2025 Telephone [facility] MEDICINE [address] [place], [place] [phone] Clara Shearer MD [address] [place], [place] [phone] Critical Result Social History Tobacco Use Types Packs/Day Years [...] encounter Miscellaneous Notes * Telephone Encounter - Sabine Roblero RN - 04/17/2025 3:57 PM EDT T/C from [facility] labs regaurding a critical result for pt. INR: 5.7 Plan: Hold Warfarin today 04/17 and tomorrow 04/18 Resume 6mg Thursday 04/19 and Friday 04/20 Retest INR: Saturday 04/21 Will forward to [place] Team nurses documented in this encounter Plan of Treatment Upcoming Encounters Date Type Department Care Team (Late st Contact Info) Description 05/08/2025 8:00 AM EDT Office Visit [facility] ADULT DENTAL [address] [place] [address] Olga, Katt [address] [place] [address] documented as of this encounter Visit Diagnoses Not on filedocumented in this encounter Additional Health Concerns Assessment Noted Time PHQ-9 Depression Total Score: 17 025 1:38 PM EDT documented as of this encounter Care Teams Park Landscape Architect Relationship Specialty Start Date End Date Clara Shearer MD [address] [place] [address] PCP - General Family Medicine 07/24/18 documented as of this encounter
--- OUTSIDE RECORDS SUMMARY | 2025-04-17 18:44 | XMS_ITS | Encounter Summary ---
Author Organization [employer] Address [address] [place] [address] 7t [place] [address] Care Team Providers Care Jewel Setter Name Role Phone Clara Shearer MD Primary Care Provider [phone] Encounter Details Date Type Department Care Team (Latest Contact Info) Description 09/26/2019 Abstract [facility] CONVERSIONS Dental, Provider, DDS Social [...] Description 05/08/2025 8:00 AM EDT Office Visit [facility] ADULT DENTAL [address] [place] [address] Olga, Katt [address] [place] [address] documented as of this encounter Visit Diagnoses Not on filedocumented in this encounter Care Teams Jewel Setter Relationship Specialty Start Date End Date Calra Shearer MD [address] [place] [address] PCP - General Family Medicine 07/24/18 documented as of this encounter
--- OUTSIDE RECORDS SUMMARY | 2025-04-17 18:44 | XMS_ITS | Encounter Summary ---
Author Organization Cognitive Code [facility] Address [address] [place] [address] [address] [place] [address] Care Team Providers Care Transport Tank Technician Name Role Phone Clara Shearer MD Primary Care Provider [phone] Encounter Details Date Type Department Care Team (Late st Contact Info) Description 07/20/2022 Abstract [facility] [address] [place] [address] Clara Shearer MD [address] [place] [address] Social History Tobacco Use Types Packs/Day Years [...] Description 05/08/2025 8:00 AM EDT Office Visit [facility] [address] [place] [address] Jignesh Espinozaaris [address] [place] [address] documented as of this encounter Visit Diagnoses Not on filedocumented in this encounter Care Teams Transport Tank Technician Relationship Specialty Start Date End Date Clara Shearer MD [address] [place] [address] PCP - General Family Medicine 07/24/18 documented as of this encounter
--- OUTSIDE RECORDS SUMMARY | 2025-04-17 18:45 | XMS_ITS | Clinical Summary ---
Author Organization [employer] Address [address] [place] [address] Care Team Providers Care Jail Officer Name Role Phone Clara Shearer MD Primary Care Provider [phone] Allergies No known active allergies Medications * [...] Active Problems Problem Noted Date Diagnosed Date Bilateral shoulder pain 04/13/2025 Assessment & Plan (04/13/2025 7:22 PM EDT): - evaluate with X-ray - refer to physical therapy - judicious use of APAP and cyclobenzaprine - minimize NSAIDs use due to warfarin Mitral stenosis 04/13/2025 Assessment & Plan (04/13/2025 7:39 PM EDT): - history of rheumatic heart disease, s/p AVR for aortic regurgitation - 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 EF 57%. Mechanical prosthetic aortic valve, which is functioning normally. Moderate mitral valve stenosis - following with assistant hvac mechanic, Dr. Haynes [facility] - Monitor with periodic echo. Adjustment disorder with depressed mood 01/01/20 Assessment & Plan (01/13/2025 5:22 AM EDT): - Seen by integrated behavioral health service clinician today Localized gingival recession 10/31/2024 Chronic headache 05/30/2024 Assessment & Plan (04/13/2025 7:48 PM EDT): - Following with neurologist, [facility], last seen in January 2025 - pt was seen by sleep clinic provider, mostly in 2024, still waiting for CPAP machine - currently prescribed smatriptan 200 mg per day, Topiramate 50 mg QHS - patient reports improvement of symptoms since she tried imitrex Assessment & Plan (01/13/2025 5:21 AM EDT): [...] (obstructive sleep apnea) 05/30/2024 Assessment & Plan (04/13/2025 7:49 PM EDT): - Pt had sleep study in 2023 showing AYESHA, most recently had titration study - Last seen in sleep medicine clinic in January 2025 - Continue CPAP Assessment & Plan (12/30/2024 4:40 PM EDT): - Pt had sleep study in 2023 showing AYESHA. Pt is still waiting for CPAP. Assessment & Plan (05/30/2024 12:21 PM EST): - patient has sleep study which was ordered by assistant hvac mechanic. Patient was referred to sleep medicine specialist [...] US -given return and ER precautions. Chronic low back pain 03/06/2024 Assessment & Plan (04/13/2025 7:47 PM EDT): - s/p PT with minimal improvement - evaluated by [facility] orthopedist in March 2024. MRI in 2023 showed change - pt was seen by spine center provider in September 2024. Her pain was attributed to SI joint dysfunction and was advised to continue PT - patient has received 3 injection treatments with no improvement - previously right-sided; most recently seen in ED in December 2924 and Dx left- sided sciatica Assessment & Plan (12/30/2024 4:37 PM EDT): - s/p PT with minimal improvement - evaluated by [facility] orthopedist in March 2024. MRI in 2023 showed change - pt was seen by spine center provider in September 2024. Her pain was attributed to SI joint dysfunction and was advised to continue PT - patient has received 3 injection treatments with no improvement Assessment & Plan (05/30/2024 12:25 PM EST): - s/p PT with minimal improvement - evaluated by [facility] orthopedist in March 2024. MRI was ordered and patient was referred to [facility] for injection treatment. - patient has received 3 injection treatments with no improvement - patient was advised to contact [facility] orthopedist to inquire MRI Assessment & Plan (03/06/2024 4:11 PM EDT): Reports R low back pain for months, Recently completed PT for 2 months without significant relief. -referred to Ortho 03/06/24 Teeth missing 12/28/2023 Dental plaque 12/28/2023 Transaminitis 11/03/2023 Assessment & Plan (04/13/2025 7:44 PM EDT): - Most recent MRI in Feb 2023 showed hepatic steatosis - Hx of idiopathic pancreatitis in November 2022 - following with [facility] GI, last seen in May 2024 - Fib 4 index 0.82 - Liver ultrasound/elastography: 12/12/2023 heterogeneous normal-sized liver without evidence of hepatic steatosis; proptotic dilated infrarenal aorta measuring 2.7 cm, recommended follow-up ultrasound every 5 years; median shear wave velocity 0.94 m/s - continue working on lifestyle modifications - Monitor periodically Assessment & Plan (11/03/2023 12:07 PM EDT): - Most recent MRI in Feb 2023 showed hepatic steatosis - Hx of idiopathic pancreatitis in November 2022 - following with [facility], last seen in Feb 2023 - continue working on lifestyle modifications GERD (gastroesophageal reflux disease) Assessment & Plan (04/13/2025 7:40 PM EDT): - EGD in Jun 2024 Assessment & Plan (05/30/2024 12:22 PM EST): [...] Rheumatic heart disease 11/22/2022 Assessment & Plan (04/13/2025 7:36 PM EDT): - s/p AVR in Feb 2010 - on warfarin - previously prescribed metoprolol by assistant hvac mechanic; no longer on the medication due to hypotension / dizziness - continue following with assistant hvac mechanic, [facility] Dr Haynes - last TTE on 09/19/2023: Left ventricular systolic function was normal. EF 57%. Mechanical prosthetic aortic valve, which is functioning normally. Moderate mitral valve stenosis - continue current treatment plan per cardiology Assessment & Plan (12/30/2024 9:32 AM EDT): - s/p AVR in Feb 2010 - on warfarin - previously prescribed metoprolol by assistant hvac mechanic; no longer on the medication due to hypotension / dizziness - continue following with assistant hvac mechanic, [facility] Dr Haynes - last TTE in January 2022, mild mitral valve stenosis - continue current treatment plan per cardiology Assessment & Plan (05/30/2024 12:22 PM EST): - s/p AVR in Feb 2010 - on warfarin - previously prescribed metoprolol by assistant hvac mechanic; no longer on the medication due to hypotension / dizziness - continue following with assistant hvac mechanic, [facility] Dr Haynes - last TTE in January 2022, mild mitral valve stenosis - continue current treatment plan per cardiology Assessment & Plan (03/19/2023 1:47 PM EDT): - s/p AVR in Feb 2010 - on warfarin - previously prescribed metoprolol by assistant hvac mechanic; no longer on the medication due to hypotension / dizziness - continue following with assistant hvac mechanic, [facility] Dr Haynes - last TTE in January 2022, mild mitral valve stenosis - continue current treatment plan per cardiology Assessment & Plan (11/22/2022 11:35 AM EDT): - s/p AVR in Feb 2010 - on warfarin - previously prescribed metoprolol by assistant hvac mechanic; no longer on the medication due to hypotension / dizziness - continue following with assistant hvac mechanic, [facility] Dr Haynes - last TTE in January 2022, mild mitral valve stenosis - continue current treatment plan per cardiology Chronic anticoagulation 11/22/2022 Assessment & Plan (12/30/2024 9:33 AM EDT): - indication: Aortic valve replacement - medication warfarin - goal INR 2-3 - followed by [facility] anticoagulation clinic - last INR was 2.0 on 03/01/23 - continue current management plan Assessment & Plan (05/30/2024 1:41 PM EST): - indication: Aortic valve replacement - medication warfarin - goal INR 2-3 - followed by [facility] anticoagulation clinic - last INR was 2.0 on 03/01/23 - continue current management plan Assessment & Plan (03/19/2023 1:49 PM EDT): - indication: Aortic valve replacement - medication warfarin - goal INR 2-3 - followed by [facility] anticoagulation clinic - last INR was 2.0 on 03/01/23 - continue current management plan Assessment & Plan (11/22/2022 11:40 AM EDT): - indication: Aortic valve replacement - medication warfarin - goal INR 2-3 - followed by [facility] anticoagulation clinic - last INR was 2.4 [...] polyp, benign -Pt has follow-up appointment with LIBRARIAN -Pt is on Coumadin -Pt requested Hysterectomy, pt will follow-up with LIBRARIAN with possible hysterectomy in future Assessment & Plan (11/08/2022 4:50 PM EDT): s/p Endometrial Curetting's, polyp, benign -Pt has follow-up appointment with LIBRARIAN -Pt is on Coumadin -Pt requested Hysterectomy, pt will follow-up with LIBRARIAN with possible hysterectomy in future Cyst of ovary 09/22/2022 Iron deficiency anemia due to chronic blood loss 09/22/2022 Assessment & Plan (05/30/2024 1:41 PM EST): - AUB in a setting of anticoagulation - s/p removal of endometrial polyp, benign - Pt has follow-up appointment with LIBRARIAN - Pt is taking Coumadin Assessment & Plan (11/03/2023 12:09 PM EDT): - AUB in a setting of anticoagulation - s/p removal of endometrial polyp, benign -Pt has follow-up appointment with LIBRARIAN -Pt is taking Coumadin Assessment & Plan (11/08/2022 4:45 PM EDT): Due to AUB: S/p Endometrial Curetting's, polyp, benign -Pt has follow-up appointment with LIBRARIAN -Pt is taking Coumadin Vitamin D deficiency 12/04/2018 Assessment & Plan (12/30/2024 9:34 AM EDT): -continue vitamin D supplement Assessment & Plan (11/03/2023 12:08 PM EDT): -continue vitamin D supplement Presence of subdermal contraceptive implant 09/2014 History of mechanical aortic valve replacement 0 04/07/2015 Assessment & Plan (04/13/2025 7:36 PM EDT): - [facility] last seen in December 2023 - s/p AVR for rheumatic disease and aortic regurgitation in Feb 2010 - EKG showed sinus rhythm and RBBB - echocardiogram 08/30/2023 EF 57%. Mechanical aortic valve functioning normally. Moderate mitral valve stenosis. No regurgitation. - Continue warfarin - Continue SBE prophylaxis. Assessment & Plan (12/30/2024 9:32 AM EDT): - 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 Mechanical aortic valve functioning normally. Moderate mitral valve stenosis. No regurgitation. - Continue warfarin - Continue SBE prophylaxis. Assessment & Plan (05/30/2024 12:22 PM EST): - Mixologist: Dr. Dallas Duran, last seen in December 2023 - s/p AVR for rheumatic disease and aortic regurgitation in Feb 2010 - EKG showed sinus rhythm and RBBB - echocardiogram 08/30/23 EF 57%. Mechanical aortic valve functioning normally. Moderate mitral valve stenosis. No regurgitation. - Continue warfarin - Continue SBE prophylaxis. Assessment & Plan (11/03/2023 12:18 PM EDT): - Mixologist: Dr. Dallas Duran, last seen in Aug 2023 - s/p AVR for rheumatic disease and aortic regurgitation in Feb 2010 - EKG showed sinus rhythm and RBBB - echocardiogram 08/30/23 EF 57%. Mechanical aortic valve functioning normally. Moderate mitral valve stenosis. No regurgitation. - Continue warfarin - Continue SBE prophylaxis. Assessment & Plan (03/19/2023 1:47 PM EDT): - Mixologist: Dr. Dallas Duran, last seen in Jul 2022 - s/p AVR for rheumatic disease and aortic regurgitation in Feb 2010 - EKG showed sinus rhythm and RBBB - echocardiogram JANUARY 2022 nml LVEF 60-65%; mild mitral valve stenosis - Continue aspirin and warfarin, per cardiology. - Continue SBE prophylaxis. Assessment & Plan (11/22/2022 11:37 AM EDT): - Mixologist: Dr. Dallas Duran, last seen in Jul 2022 - s/p AVR for rheumatic disease and aortic regurgitation in Feb 2010 - EKG showed sinus rhythm and RBBB - echocardiogram JANUARY 2022 nml LVEF 60-65%; mild mitral valve stenosis - Continue aspirin and warfarin, per cardiology. - Continue SBE prophylaxis. Allergic rhinitis 12/09/2013 Aortic valve regurgitation 07/25/2013 Assessment & Plan (04/13/2025 7:36 PM EDT): - Mixologist: Dr. Dallas HUMPHREY, last seen in December 2024 - s/p AVR for rheumatic disease and aortic regurgitation due to rheumatic heart disease in Feb 2010 - EKG showed sinus rhythm and RBBB - echocardiogram in Aug 2023, EF 59%. Normally functioning AV. Moderate mitral valve stenosis. - Continue warfarin, per cardiology. - Continue SBE prophylaxis. Assessment & Plan (12/30/2024 9:32 AM EDT): - Mixologist: Dr. Dallas Duran, last seen in December 2023 - s/p AVR for rheumatic disease and aortic regurgitation due to rheumatic heart disease in Feb 2010 - EKG showed sinus rhythm and RBBB - echocardiogram in Aug 2023, EF 59%. Normally functioning AV. Moderate mitral valve stenosis. - Continue warfarin, per cardiology. - Continue SBE prophylaxis. Assessment & Plan (05/30/2024 12:22 PM EST): - Mixologist: Dr. Dallas Duran, last seen in December 2023 - s/p AVR for rheumatic disease and aortic regurgitation due to rheumatic heart disease in Feb 2010 - EKG showed sinus rhythm and RBBB - echocardiogram in Aug 2023, EF 59%. Normally functioning AV. Moderate mitral valve stenosis. - Continue warfarin, per cardiology. - Continue SBE prophylaxis. Assessment & Plan (11/03/2023 12:20 PM EDT): - Mixologist: Dr. Dallas Duran, last seen in Aug 2023 - s/p AVR for rheumatic disease and aortic regurgitation due to rheumatic heart disease in Feb 2010 - EKG showed sinus rhythm and RBBB - echocardiogram in Aug 2023, EF 59%. Normally functioning AV. Moderate mitral valve stenosis. - Continue warfarin, per cardiology. - Continue SBE prophylaxis. Assessment & Plan (11/22/2022 11:36 AM EDT): - Mixologist: Dr. Dallas Duran, last seen in Jul [...] EDT): - 12/03/22 Evaluated and treated at [facility] ED. WBC 13k, Lipase 247, CT showed pancreatitis. Given IVF and analgesics. - Seen by [facility] in December 2022 - MRI on 03/01/23 was normal. - HgbA1C 5.9% - Follow recommendations per GI. Menometrorrhagia 09/22/2022 03/07/2023 Pain in female pelvis 09/22/20222022 Encounters Date Type Department Care Team Description 04/17/[address] [address] Clara Shearer MD Critical Result 04/17/2025 Orders Only GENERIC EXTERNAL DATA DEPARTMENT Provider, Generic External Data 04/10/2025 Orders Only GENERIC EXTERNAL DATA DEPARTMENT Provider, Generic External Data 04/01/2025 3:45 PM EDT Office Visit [facility] [place] [address] Clara Shearer MD Chronic pain of both shoulders (Primary Dx); Acute left-sided low back pain without sciatica; AYESHA (obstructive sleep apnea); Rheumatic heart disease; History of mechanical aortic valve replacement; Rheumatic aortic valve insufficiency; Mitral valve stenosis, unspecified etiology; Gastroesophageal reflux disease, unspecified whether esophagitis present; Transaminitis; Dietary counseling; Exercise counseling; Class 1 obesity due to excess calories with serious comorbidity and body mass index (BMI) of 30.0 to 30.9 in adult; Chronic low back pain, unspecified back pain laterality, unspecified whether sciatica present; Chronic nonintractable headache, unspecified headache type 04/01/2025 Travel 03/31/2025 Telephone [facility] [place] [address] Clara Shearer MD chart prep 03/25/[address] [address] Clara Shearer MD Paperwork/Forms 03/20/2025 Orders Only GENERIC EXTERNAL DATA DEPARTMENT Provider, Generic External Data 02/21/2025 Orders Only [address] [place] [address] Clara Shearer MD Hematuria, unspecified type (Primary Dx) 2025 Orders Only GENERIC EXTERNAL DATA DEPARTMENT Provider, Generic External Data 02/14/2025 Results Follow-Up [facility] [address] [place] [address] Clara Shearer MD Albumin, Random Urine W/Creatinine, Urinalysis, Complete, with Reflex to Culture 02/13/2025 3:00 PM EDT Office Visit [facility] [address] [place] [address] Kenroy, Meliza, OD Presbyopia (Primary Dx); Meibomian gland disease, unspecified laterality 02/13/2025 Travel 02/07/2025 Refill [facility] [address] [place] [address] Clara Shearer MD History of mechanical aortic valve replacement from Last 3 Months Immunizations Immunization Administration [...] 11/06/2020,10/10/19 21 Pfizer Covid-19 Vaccine 12+ 12/30/2024, Pneumococcal Conjugate PCV 20 03/07/2023 Pneumococcal Polysaccharide [...] Description 05/08/2025 8:00 AM EDT Office Visit [facility] [address] [place] [address] Olga, Katt [address] [place] [address] Health Maintenance Due Date Last Done Comments [...] 05/30/2025 05/30/2024 Depression Monitoring 07/01/2025 12/30/2024, 025 Cervical Cancer Screening 11/13/2025 HPV/Cotest 11/13/2025 11/13/2020, 08/20/2019 Pap Smear 11/13/2025 11/13/2020 Disability Screening 12/30/2025 12/30/2024 Diabetes: Hemoglobin A1C 2026 025, 12/11/2023, 11/16/2023, Additional history exists SDOH Screening 04/01/2026 04/01/2025 Tobacco Screening 04/01/2026 04/01/2025 Dental X-Ray: Full Mouth 04/20/2026 04/19/2023, 07/10/2020 Mammogram 10/04/2026 10/04/2024, 06/08/2022, 12/23/2022, Additional history [...] Completed 12/30/2024, , 11/06/2020, Additional history exists Hepatitis A Vaccines Aged Out 12/30/2024 No long er eligible based on patient's age to complete this topic HIB Vaccines Aged Out No longer eligi [...] [facility] Routine 04/17/2025 2:25 PM EDT US RETROPERITONEAL COMPLETE Routine 04/11/2025 9:01 AM EDT PROTHROMBIN TIME WHOLE BLD POC Routine 04/10/2025 [...] Chronic midline back pain, unspecified back location PROPHYLAXIS - ADULT Routine 10/31/2024 2 :00 [...] Relevant to Health Maintenance Results * (ABNORMAL) Prothrombin Time-INR (04/17/2025 2:48 PM EDT) Prothrombin Time 65.0(H) 10.9 - 12.4 SEC [facility] INTERNATIONAL NORM RATIO 5.7(HH) 0.9 - 1.1 [facility] Comment:RESULTS OF PT/INR CA LLED TO AND READ BACK BY [DUROMELIA]ON 04/17/25 AT 1510 BY KIERAN.INTERNATIONAL NORMALIZED RATIO [...] 2:48 PM EDT 04/17/2025 2:48 PM EDT us Generic External Data Provider LAB BLOOD ORDERAB LES Final Result Performing Organization Address [facility] de Phone Number [facility] [address] [place] [address] [phone] * (ABNORMAL) PROTHROMBIN TIME WHOLE BLD POC (04/17/2025 2:25 PM EDT) Only the most recent of4 resultswithin the time period is included. Protime 71.3(H) 11.1 - 13.5 sec [facility] 04/17/2025 2:25 PM EDT 04/17/2025 2:27 PM EDT us Generic External Data Provider LAB BLOOD ORDERAB LES Final Result Performing Organization Address [facility] Co de Phone Number [facility] [address] [place] [phone] * (ABNORMAL) ~PT, ~INR - ANTI COAG CLINIC (04/17/2025 2:25 PM EDT) Only the most recent of4 resultswithin the time period is included. Prothrombin Time INR 5.9(HH) 0.9 - 1.1 [facility] Comment:METER #: [id number] TERNATIONAL NORMALIZED RATIO (INR) REFERENCE RANGES Reference [...] Provider LAB BLOOD ORDERAB LES Final Result [facility] [address] [place] [phone] * US Retroperitoneal Complete (04/11/2025 9:01 AM EDT) Anatomical Region Laterality Modality Ultrasound 04/11/2025 9:01 AM EDT Narrative 04/11/2025 9:02 AM EDT [address] [address] Ultrasound Report Signed Patient: Thalia Martell MR#: [id number] : 1975 Acct:[id number] Age/Sex: 50 / F ADM Date: 04/10/25 Loc: HO.US Attending Dr: Clara Shearer MD Ordering Physician: Clara Shearer MD Date of Service: 04/10/25 Procedure(s): US retroperitoneal comp Accession Number(s): [id number] cc: Clara Shearer MD Reason for Exam: hematuria CLINICAL HISTORY: hematuria US Renal Comparison: None provided Findings: Right kidney normal size and echotexture, 10.9 cm length. Left kidney normal size and echotexture, 12.7 cm length. The display department manager demonstrates mild pelvic fullness bilaterally. It is [...] in OV> 04/11/25901 DD/ 0 TD/TT: 04/11/25900 Assistant Grocery: Procedure Note Donotuseinterpreter, Image - 04/11/2025 [place] [address] Ultrasound Report Signed Patient: Yoel Martell#: [id number] : 1975Acct:[id number] Age/Sex: 50 / FADM Date: 04/10/25 Loc: .US Attending Dr: Clara Shearer MD Ordering Physician: Clara Shearer MD Date of Service: 04/10/25 Procedure(s): US retroperitoneal comp Accession Number(s): [id number] cc: Clara Shearer MD Reason for Exam: hematuria CLINICAL HISTORY: hematuria US Renal Comparison: None provided Findings: Right kidney normal size and echotexture, 10.9 cm length. Left kidney normal size and echotexture, 12.7 cm length. The display department manager demonstrates mild pelvic fullness bilaterally. It is unclear whether or not the images of the kidneys are pre or postvoid. Normal color Doppler. Urinary bladder is unremarkable. Prevoid volume 410 mL. Postvoid volume 27 mL. Bilateral ureteral jets are visualized. IMPRESSION: 1. Mild pelvic fullness. 2. No significant postvoid residual within the bladder. This document has been electronically signed by: Mari Macdeo MD on 04/11/2025 09:01:08 Dictated By: Mari Macedo MD Signed By: <Electronically signed by Mari Macedo MD in OV> 04/11/25901 DD/ 0 TD/TT: 04/11/25900 Assistant Grocery: Clara Shearer MD [facility] PROCEDURES Edited Result - Final * Vitamin D, 25-Hydroxy, Total, Immunoassay (2025 2:43 PM EDT) Vitamin D 25-OH Total 46.7 >30 ng/mL [facility] Comment: Health Based Reference Values*< 20 ng/mL [id number] ng/mL Insufficient> 30 ng/mL Sufficient*Paul LEVIN. N [...] Provider LAB BLOOD ORDERAB LES Final Result [facility] [address] [place] [phone] * Vitamin B12 (Cobalamin) and Folate Panel, Serum (2025 2:43 PM EDT) Vitamin B12 637 200 - 900 pg/mL [facility] Comment:NORMAL 200-900 PG/ML INDETERMINATE 160-199 PG/ML DEFICIENT < 160 PG/ML Folate 11.2 > or = 4.0 ng/mL [facility] Comment:Reference Values:> o r = 4.0 ng/mL< 4.0 ng/mL suggests folate deficiency Methotrexate, aminopterin and folinic acid(leucovorin) are chemotherapeutic agents whose molecularstructures are similar to folate; therefore, the Architectfolate assay cannot be used for patients using these drugs. 2025 2:43 PM EDT 2025 2:43 PM EDT Generic External Data Provider LAB BLOOD ORDERAB LES Final Result Performing Organization Address [facility]/ZIP Co de Phone Number [facility] [address] [place] [phone] * TSH with Reflex to Free T4 (2025 2:43 PM EDT) Pathologist [facility] TSH reflex Free T4 1.21 0.32 - 4.0 uIU/mL [facility] 2025 2:43 PM EDT 2025 2:43 PM EDT Generic External Data Provider LAB BLOOD ORDERAB LES Final Result Performing Organization Address [facility]/ZIP Co de Phone Number [facility] [address] [place] [phone] * (ABNORMAL) Lipid Panel with Reflex to Direct LDL (2025 2:43 PM EDT) Pathologist [facility] Triglycerides 143 <150 mg/dL [facility] Comment:Desirable Triglyceri de: less than 150 mg/dLBorderline High Triglyceride 150-199 mg/dLHigh Triglyceride: 200-499 mg/dLVery High Triglyceride: greater than or equal to 5OO mg/dL Cholesterol 197 <200 mg/dL [facility] Comment:Desirable Cholestero l: less than 200 mg/dLBorderline High Cholesterol: 200-239 mg/dLHigh Cholesterol: greater than 239 mg/dL LDL Cholesterol Calculated 117(H) <100 mg/dL [facility] Comment:Desirable LDL: less than 100 mg/dLNear Optimal/Above Optimal LDL: 110- 129 mg/dLBorderline High LDL: 130-159 mg/dLHigh LDL: 160-189 mg/dLVery High LDL: greater than or equal to 190 mg/dL HDL Cholesterol 52 >40 mg/dL [facility] Comment:Desirable HDL: great er than 40 mg/dL Note: This HDL assay may give artificially low results in patients with liver disease. 2025 2:43 PM EDT 2025 2:43 PM EDT us Generic External Data Provider LAB BLOOD ORDERAB LES Final Result [facility] [address] [place] [phone] * Methylmalonic Acid (2025 2:43 PM EDT) Methylmalonic Acid 81 55 - 335 nmol/L [facility] Comment: Serum methylmalonic acid (MMA) [...] outcomes,such as neural tube defects and intrauterine growthrestriction.[facility] utilized Multi-Modal Decomposition(MMD) analysis to establish first and second trimester-specific MMA reference intervals in , as givenbelow:MMA, First trimester (<13 wks gestation): 58-167 nmol/LMMA, Second trimester (13-23 wks gestation):63-241 nmol/LThis test was developed and its analytical performancecharacteristics have been determined by [employer]. It has not been cleared or approved by theA. This assay has been validated pursuant to the CLIAregulations and is used for clinical purposes.THIS TEST WAS PERFORMED AT:[employer]/[id number] [place] [address]ATAGZTFPATTI OMER MD,PHD 2025 2:43 PM EDT 2025 2:43 PM EDT us Generic External Data Provider LAB BLOOD ORDERAB LES Final Result [facility] [address] [place] [phone] * CBC (2025 2:43 PM EDT) White Blood Count 5.6 4.8 - 10.8 X10*3/uL [facility] Red Blood Count 4.37 4.20 - 5.50 X10*6/uL [facility] Hemoglobin 13.3 12.0 - 16.0 g/dl [facility] Hematocrit 38.8 37.0 - 47.0 % [facility] Mean Corpuscular Volume 88.8 80.0 - 98.0 fL [facility] Mean Corpuscular Hemoglobin 30.4 27.0 - 33.0 pg [facility] Mean Corpuscular HGB Conc 34.3 31.0 - 35.0 g/dl [facility] Red Cell Distribution Width 12.9 11.0 - 16.0 % [facility] Platelet Count 256 160 - 400 X10*3/uL [facility] Mean Platelet Volume 9.8 9.4 - 12.3 fL [facility] NRBC Pct Auto 0.0 0.0 - 0.2 /100WBC [facility] NRBC Abs Auto 0.000 0.0 - 0.012 X10*3/uL [facility] 2025 2:43 PM EDT 2025 2:43 PM EDT us Generic External Data Provider LAB BLOOD ORDERAB LES Final Result Performing Organization Address [facility] Co de Phone Number [facility] [address] [place] [phone] * Homocysteine (2025 2:43 PM EDT) Homocysteine 5.0 < or = 11.0 umol/L [facility] Comment:Homocysteine is incr eased by functional deficiency offolate or vitamin B12. Testing for methylmalonic aciddifferentiates between these deficiencies. Other causesof increased homocysteine include renal failure, folateantagonists such as methotrexate and phenytoin, andexposure to nitrous oxide.Sarah Muse, et al., [employer] System Support Developer Med. 1999;131(5):331-9.THIS TEST WAS PERFORMED AT:[employer] [place] [id number] GUPTA MD 2025 2:43 PM EDT 2025 2:43 PM EDT Generic External Data Provider LAB BLOOD ORDERAB LES Final Result Performing Organization Address [facility] de Phone Number [facility] [address] [place] [phone] * Hemoglobin A1c (2025 2:43 PM EDT) Hemoglobin A1c 5.7 <6.0 % [facility] Comment:Hemoglobin A1C Refer ence Range Adults: 4.8 - 6.0 % Non diabetic: < 6.0 % Goal: < 7.0 %Additional Action Suggested: > 8.0 %Note: Hemoglobin A1c results are invalid for patients with abnormal amounts of HbF. Blood transfusions may impact the HbA1c concentration in the patient sample. Estimated Average Glucose 117 mg/dL [facility] Comment:eAG = Estimated ave rage glucose which is %A1C expressed asaverage glucose, using the formula of the X6Z-DjadljcHhpwotj Glucose study (ADAG), Diabetes Care, Vol.31,#8,Feb. 2007 2025 2:43 PM EDT 2025 2:43 PM EDT us Generic External Data Provider LAB BLOOD ORDERAB LES Final Result Performing Organization Address [facility]/ZIP Co de Phone Number [facility] [address] [place] [phone] * Ferritin (2025 2:43 PM EDT) Pathologist [facility] Ferritin 93 10 - 250 ng/mL [facility] 2025 2:43 PM EDT 2025 2:43 PM EDT Generic External Data Provider LAB BLOOD ORDERAB LES Final Result Performing Organization Address [facility] de Phone Number [facility] [address] [place] [phone] * (ABNORMAL) Comprehensive Metabolic Panel (2025 2:43 PM EDT) Pathologist [facility] Sodium 138 135 - 145 mmol/L [facility] Potassium 3.6 3.3 - 5.1 mmol/L [facility] Chloride 108 96 - 108 mmol/L [facility] Carbon Dioxide 23 22 - 29 mmol/L [facility] Anion Gap 11(L) 12 - 20 [facility] Urea Nitrogen (BUN) 13 9 - 16 mg/dL [facility] Creatinine, Serum 0.51 0.5 - 1.4 mg/dL [facility] Estimated Glomerular Filt Rate >60 [facility] Comment:Chronic Kidney Disea se: Estimated GFR < 60 mL/min/1.81l0Agdaih Kidney Disease: Estimated GFR < 15 mL/min/1.73m2 Glucose 99 60 - 115 mg/dL [facility] Calcium 8.8 8.4 - 10.2 mg/dL [facility] Bilirubin, Total 0.5 0.0 - 1.0 mg/dL [facility] Aspartate Amino Transferase 28 5 - 31 U/L [facility] Alanine Aminotransferase 41(H) 0 - 31 U/L [facility] Total Protein 7.1 6.5 - 8.0 g/dL [facility] Albumin Level 4.2 3.5 - 5.0 g/dL [facility] Alkaline Phosphatase 76 39 - 117 U/L [facility] 2025 2:43 PM EDT 2025 2:43 PM EDT us Generic External Data Provider LAB BLOOD ORDERAB LES Final Result [facility] [address] [place] [phone] * (ABNORMAL) Urinalysis, Complete, with Reflex to Culture (2025 2:38 PM EDT) Only the most recent of2 resultswithin the time period is included. Color Urine Yellow [facility] Appearance Urine Clear [facility] PH 5.5 5.0 - 9.0 [facility] Glucose Urine UA Negative Negative mg/dL [facility] Urine Blood Moderate (2+)(A) Negative [facility] Specific Gill - Urine 1.015 1.005 - 1.025 [facility] Urine Protein Negative Neg-Trace mg/dL [facility] Urine Ketones Negative Negative mg/dL [facility] Nitrite Urine Negative Negative [facility] Leukocyte Esterase Urine Negative Negative [facility] RBC Urine 0-2 0 - 2 /HPF [facility] Urine WBC 0-5 0 - 5 /HPF [facility] Urine Squamous Epithelial Cell 0-2 0 - 2 /HPF [facility] Urine Bacteria None Seen None Seen [facility] Hyaline Casts, Urine 0-2 0 - 2 /LPF [facility] Urine 2025 2:38 PM EDT 2025 3:15 PM EDT Narrative [facility] - 2025 3:28 PM EDT Urine, Clean Catch us Clara Shearer MD LAB URINE ORDERABLES Final Resul t Performing Organization Address [facility] de Phone Number [facility] [address] [place] [phone] * Albumin, Random Urine W/Creatinine (02/13/2025 4:15 PM EDT) Creatinine, Urine 84.01 mg/dL [facility] Microalbumin Urine 7.0 mg/L [facility] Microalbum Creatinine Ratio Ur 8.3 <30 ug/mg cr [facility] Comment:Albumin/Creatinine R atio Reference Ranges: Normal: < 30 ug/mg creatinine Microalbuminuria: 30 - 300 ug/mg creatinineClinical Albuminuria: > 300 ug/mg creatinine Urine 02/13/2025 4:15 PM EDT 02/13/2025 5:31 PM EDT us Clara Shearer MD LAB URINE ORDERABLES Final Resul t Performing Organization Address [facility] de Phone Number [facility] [address] [place] [phone] * BI Mammogram Screening Tomosynthesis Bilateral (10/04/2024 3:55 PM EDT) Anatomical Region Laterality Modality Breast Bilateral Mammography 10/04/2024 3:55 PM EDT Narrative 10/13/2024 6:12 PM EDT [facility] [address] [place] [address] Mammography Report Signed Patient: Thalia Martell MR#: [id number] 2088 : 1975 Acct:[id number] Age/Sex: 49 / F ADM Date: 10/04/24 Loc: HO.MAMMO Attending Dr: Clara Shearer MD Ordering Physician: Clara Shearer MD Results: 1Negative Date of Service: 10/04/24 Follow Up: 1 Year From Orig ina Mammogram Procedure(s): MM tomosynthesis screening BI Accession Number(s): [id number] cc: Clara Shearer MD EXAMINATION: MM SCREENING [...] 10/13/24 1809 DD/ 1555 TD/TT: 10/04/24 1608 Assistant Grocery: Procedure Note Donotuseinterpreter, Image - 10/13/2024 [facility] [address] [place], [place] [address] Mammography Report Signed Patient: Yoel Martell#: [id number] 2088 : 1975Acct:[id number] Age/Sex: 49 / FADM Date: 10/04/24 Loc: MARIE Attending Dr: Clara Shearer MD Ordering Physician: Clara Shearer MDResults: 1Negative Date of Service: 03/14/25Follow Up: 1 Year From Orig ina Mammogram Procedure(s): MM tomosynthesis screening BI Accession Number(s): [id number] cc: Clara Shearer MD EXAMINATION: MM SCREENING [...] 10/13/24 1809 DD/ 1555 TD/TT: 10/04/24 1608 Assistant Grocery: Clara Shearer MD [facility] PROCEDURES Edited Result - Final * Hepatitis Panel, General (12/11/2023 4:30 PM EDT) Hepatitis A IgM Nonreactive Nonreactive [facility] Comment:IgM antibodies to HEMPHILL V not detected; does not exclude earlyacute or recovered HAV infection. ~Hepatitis B Surface Antibody REACTIVE Nonreactive [facility] Comment:REACTIVE: > 11.99 mI U/mL Hepatitis B Core Antibody Nonreactive Nonreactive [facility] Hepatitis C Antibody Nonreactive Nonreactive [facility] Comment:Antibodies to HCV no t detected; does not exclude early acuteHCV infection. Hepatitis B Surface Ag Negative Negative [facility] 12/11/2023 4:30 PM EDT 12/11/2023 4:33 PM EDT Generic External Data Provider LAB BLOOD ORDERAB LES Final Result Performing Organization Address [facility]/ZIP Co de Phone Number [facility] [address] [place] [phone] * HIV-1 RNA, Quantitative, Real-Time PCR (12/15/2022 8:09 AM EDT) Pathologist [facility] HIV 1 RNA, QN PCR NOT DETECTED NOT DETECTED copies/mL [facility] [place] [facility] HIV 1 RNA, QN PCR NOT DETECTED NOT DETECTED Log copies/mL [facility] Comment: This test was performed using Real-Time Polymerase Chain Reaction. Reportable Range: 20 copies/mL to 10,000,000 copies/mL (1.30 log copies/mL to 7.00 log copies/mL). Blood Venous blood specimen / Unknown 12/15/2022 8:09 AM EDT 12/15/2022 8:10 AM EDT Narrative [facility] - 12/23/2022 6:53 PM EDT FASTING:NO FASTING: NO Yany Cosby VACUUM METALIZING SUPERVISOR LAB BLOOD ORDERABLES Final Res ult Performing Organization Address [facility] Co de Phone Number [facility] [address], [place] [phone] [facility] [address] [place] [phone] * THINPREP PAP (11/13/2020 4:51 PM EDT) Pathologist [facility] Clinical Information: None given [facility] COMMENT SEE COMMENT [facility]OUNDAT[facility] [...] along with historic and current clinical information. Piggyback Clerk : SEE COMMENT [facility] Comment: RK, CT(ASCP) CT screening location: [address] [address] Interpretation/R esult: Negative for intraepithelial lesion or malignancy. [facility] LMP: NONE [facility]IV[facility] Prev. BX: NONE [facility]IV[facility] Prev. PAP: NONE [facility]IV[facility] Review Piggyback Clerk : SEE COMMENT [facility] Comment: BLC,CT(ASCP) CT screening location: [address] [address] SOURCE: None given [facility] Statement Of Adequacy: SEE COMMENT [facility] Comment: Satisfactory for evaluation. Endocervical/transformation zone component present. Age and/or menstrual status not provided 11/13/2020 4:51 PM EDT Ginette Her NP LAB PATHOLOGY ORDERABLES Final Result Performing Organization Address [facility] de Phone Number [facility] [address] * HPV GENOTYPES 16,18/45 (11/13/2020 4:51 PM EDT) HPV 16 RNA NOT DETECTED NOT DETECTED [facility] HPV 18/45 RNA NOT DETECTED NOT DETECTED [facility] Comment: Methodology: Equity Structurer Mediated Amplification The analytical performance characteristics of this assay have been determined by [facility]. The modifications have not been cleared or approved by the FDA. This assay has been validated pursuant to the CLIA regulations and is used for clinical purposes. 11/13/2020 4:51 PM EDT Ginette Her NP LAB CYTOLOGY ORDERABLES Final R esult Performing Organization Address [facility] Co de Phone Number [facility] [address] from Last 3 Months or Most Recently Relevant to Health Maintenance Insurance [employer] 2 DENTAL - HSN PARTIAL (MEDICAID) Care Teams Jail Officer Relationship Specialty Start Date End Date Clara Shearer MD [address] [place] [phone] PCP - General Family Medicine 07/24/18
== END 2025-04-17 15:57 | disposition home or self-care (01) ==
LOC: HO.ACS 14:21
PROVIDERS: PCP Family Medicine; Visit Provider Internal Medicine Medical Oncology
DX: Z79.01 Long term (current) use of anticoagulants (principal)

== ENCOUNTER 2025-04-21 16:03 | Outpatient (AMB) | payer OTHER, SELFPAY ==
[2025-04-21 16:12] LABS: Prothrombin Time Whole Bld POC 23.0 sec (11.1-13.5); ~PT, ~INR - Anti Coag Clinic 1.9 (0.9-1.1)
--- NOTE | 2025-04-21 16:28 | MHC.OFFVISCO ---
Intake Intake Visit Reasons: Anticoagulation Allergies peach Allergy (Severe, Verified 04/21/25 16:06) Angioedema Medication List - Last Reconciled 04/21/25 by Ruthy Newby RN ascorbic acid (vitamin C) 500 mg PO BID aspirin (Adult Aspirin Regimen) 81 mg PO DAILY 90 days cetirizine 10 mg PO DAILY cholecalciferol (vitamin D3) 50 mcg PO DAILY cyclobenzaprine 10 mg PO TID PRN hydrocortisone 2.5% (Proctosol HC) 1 appl IA BID-QID PRN multivitamin (One Daily Multivitamin tablet) 1 tab PO DAILY olopatadine 0.2% (Pataday Once Daily Relief) 1 drp ophthalmic (eye) DAILY PRN 30 days MDD as needed omeprazole 20 mg PO DAILY PRN sumatriptan succinate 100 mg PO .prn MDD 200mg tolterodine ER 4 mg PO DAILY PRN topiramate 50 mg PO DAILY PRN warfarin See Protocol orally 6mg daily; Nursing Note INR 1.9 out of therapeutic range- PREVIOUS INR WAS 5.7- unable to determine why INR elevated. * pt stated maybe stress - she has been working a lot of hours, plus working on her new home *she stated she has had cammomile tea but only 1 -2 / week - cammomile can raise the INR - pt is now aware that it can raise the INR and limit to only 1/ week Medications and supplements reviewed Patient status: offers no complaints other than stress with wroking a lot, states she is eating usual diet Medications or supplements: states no changes Diet: good Denies any signs and symptoms of bleeding or clotting or unusual bruising Bleeding, bruising, clotting discussed Nutritional guidance given: instructed no greens today or tomorrow then resume usual diet Dose: decrease weekly dose per previous INR 6mg x 6 days/ 3mg x 1 day F/U INR Date: 1 week - states she needs 4 pm appt ?? Patient verbalizing understanding of instructions given. Anti-Coag Initial Assessment Social Hx Patient Tobacco Use Status: Never used Tobacco alcohol intake: never Alcohol intake frequency: does not drink Coding Level of Care Code Est Patient Level 1 Diagnoses Current use of anticoagulant therapy Z79.01 Assessment & Plan Assessment & Plan (1) Current use of anticoagulant therapy: Comment: Continue Coumadin. Code(s): Z79.01 - nursing home (current) use of anticoagulants Category: Medical
--- OUTSIDE RECORDS SUMMARY | 2025-04-21 18:09 | XMS_ITS | Encounter Summary ---
Author Organization [email or web address] [facility] Address [address] [place] [address] [address] [place] [address] Care Team Providers Care Mri Tech Name Role Phone Clara Shearer MD Primary Care Provider [phone] Encounter Details Date Type Department Care Team (Late st Contact Info) Description 07/20/2022 Abstract [facility] [address] [place] [address] Clara Shearer MD [address] [place] [address] Social History Tobacco Use Types Packs/Day Years [...] Description 05/08/2025 8:00 AM EDT Office Visit [facility] ADULT DENTAL [address] [place] [address] Jignesh Espinozaaris [address] [place] [address] documented as of this encounter Visit Diagnoses Not on filedocumented in this encounter Care Teams Mri Tech Relationship Specialty Start Date End Date Clara Shearer MD [address] [place] [address] PCP - General Family Medicine 07/24/18 documented as of this encounter
--- OUTSIDE RECORDS SUMMARY | 2025-04-21 18:09 | XMS_ITS | Encounter Summary ---
Author Organization [email or web address] Address [address] [place] [address] [address], [place] [address] Care Team Providers Care Hand Shaper Name Role Phone Clara Shearer MD Primary Care Provider [phone] Reason for Visit * Reason Onset Date Comments Letter for School/Work 08/02/2022 Encounter Details Date Type Department Care Team ([facility] st Contact Info) Description 08/02/2022 Telephone [facility] [address] [place] [address] Clara Shearer MD [address] [place] [address] Letter for School/Work Social History Tobacco Use [...] a upcoming procedure on 08-19-22. Fax number [phone] Any question please contact Ambreen at [phone] ext [phone] * Telephone Encounter - Khang Garcia - 08/04/2022 2:41 PM EST Tc from pankaj with [facility] requesting a call regarding message below Please contact pankaj at [phone] * Telephone Encounter - Ronda Mahan LPN - 08/04/2022 2:41 PM EST Kelly, this should be done upstairs we do not do letters regarding medication stop or start. Please discuss with Dr. Shearer on what she wants and you can call [facility] to fax that order/letteror if they will take verbal orders from you that is even easier. * Telephone Encounter - Kelly Campuzano RN - 08/02/2022 3:33 PM EST Pt having procedure (dilation and curettage with hysteroscopy to place mirena) at [facility] 08/19/22. They are requesting a letter stating when pt should stop and restart coumadin (how many days before and after). * Telephone Encounter - Khang Garcia - 08/02/2022 2:48 PM EST Tc from claudia with [facility] requesting a letter stating when pt will be stopping medication ( warfarin 2 mg ) prior to OP Please contact claudia at [phone] ext [phone] documented in this encounter Plan of Treatment Upcoming Encounters Date Type Department Care Team (Late st Contact Info) Description 05/08/2025 8:00 AM EDT Office Visit [facility] ADULT DENTAL [address] [place], [place] [phone] Olga, Katt [address] [place] [address] documented as of this encounter Visit Diagnoses Not on filedocumented in this encounter Care Teams Hand Shaper Relationship Specialty Start Date End Date Clara Shearer MD [address] [place] [address] PCP - General Family Medicine 07/24/18 documented as of this encounter
--- OUTSIDE RECORDS SUMMARY | 2025-04-21 18:09 | XMS_ITS | Encounter Summary ---
Author Organization [employer] Address [address] [place] [address] [address] [place] [address] Care Team Providers Care Active Directory Architect Name Role Phone Clara Shearer MD Primary Care Provider [phone] Reason for Referral * Imaging (Routine) - Closed Specialty Diagnoses / Procedures Referred By Contac t Referred To Contact Radiology Diagnoses Hematuria, unspecified type Procedures US RENAL BI Clara Shearer MD [address] [place] [address] Phone: tel: fax: [address] Phone: tel: fax: Referral ID Status Reason Start Date Expiration Date Visits Re quested Visits Authorized [id number] Closed 02/21/2025 02/21/2026 1 1 Encounter Details Date Type Department Care Team (Late st Contact Info) Description 02/21/2025 Orders Only [facility] [address] [place], [place] [phone] Clara Shearer MD [address] [place], [place] [phone] Hematuria, unspecified type (Primary Dx) Social History [...] 8:00 AM EDT Office Visit [facility] ADULT DENTAL [address] [place] [address] Jignesh Espinozaaris [address] [place] [address] Scheduled Orders Name Type Priority Associated Diagnoses [...] AM EDT Narrative 04/11/2025 9:02 AM EDT [address] [address] Ultrasound Report Signed Patient: Thalia Martell MR#: [id number] 2088 : 1975 Acct:[id number] Age/Sex: 50 / F ADM Date: 04/10/25 Loc: HO.US Attending Dr: Clara Shearer MD Ordering Physician: Clara Shearer MD Date of Service: 04/10/25 Procedure(s): US retroperitoneal comp Accession Number(s): [id number] cc: Clara Shearer MD Reason for Exam: hematuria CLINICAL HISTORY: hematuria US Renal Comparison: None provided Findings: Right kidney normal size and echotexture, 10.9 cm length. Left kidney normal size and echotexture, 12.7 cm length. The karate instructor demonstrates mild pelvic fullness bilaterally. It is [...] in OV> 04/11/25901 DD/ 0 TD/TT: 04/11/25900 Publishing Specialist: Procedure Note Donotuseinterpreter, Image - 04/11/[address] [address] Ultrasound Report Signed Patient: Yoel Martell#: [id number] 2088 : 1975Acct:[id number] Age/Sex: 50 / FADM Date: 04/10/25 Loc: HO.US Attending Dr: Clara Shearer MD Ordering Physician: Clara Shearer MD Date of Service: 04/10/25 Procedure(s): US retroperitoneal comp Accession Number(s): [id number] cc: Clara Shearer MD Reason for Exam: hematuria CLINICAL HISTORY: hematuria US Renal Comparison: None provided Findings: Right kidney normal size and echotexture, 10.9 cm length. Left kidney normal size and echotexture, 12.7 cm length. The karate instructor demonstrates mild pelvic fullness bilaterally. It is [...] in OV> 04/11/25901 DD/ 0 TD/TT: 04/11/25900 Publishing Specialist: Clara Shearer MD IMG US PROCEDURES Edited Result - Final documented in this encounter Visit Diagnoses Diagnosis Hematuria, unspecified type- Primary documented in this encounter Additional Health Concerns Assessment Noted Time PHQ-9 Depression Total Score: 17 025 1:38 PM EDT documented as of this encounter Care Teams Active Directory Architect Relationship Specialty Start Date End Date Clara Shearer MD [address] [place] [address] PCP - General Family Medicine 07/24/18 documented as of this encounter
--- OUTSIDE RECORDS SUMMARY | 2025-04-21 18:09 | XMS_ITS | Encounter Summary ---
Author Organization [employer] Address [address] [place] [address] Care Team Providers Care Kitchen And Counter Worker Name Role Phone Clara Shearer MD Primary Care Provider [phone] Encounter Details Date Type Department Care Team (Late st Contact Info) Description 04/21/2025 Orders Only GENERIC EXTERNAL DATA DEPARTMENT Provider, [...] t he electric, gas, oil or water [employer] threatened to shut off services in your [...] Description 05/08/2025 8:00 AM EDT Office Visit [facility] [address] [place] [address] Olga, Katt [address] [place] [address] documented as of this encounter Procedures Procedure Name Priority Date/Time Associated Diagnosis Comments PROTHROMBIN TIME WHOLE BLD POC Routine 04/21/2025 4:10 PM EDT ~PT, ~INR - ANTI COAG CLINIC Routine 04/21/2025 4:10 PM EDT documented in this encounter Results * (ABNORMAL) PROTHROMBIN TIME WHOLE BLD POC (04/21/2025 4:10 PM EDT) Protime 23.0(H) 11.1 - 13.5 sec [facility] 04/21/2025 4:10 PM EDT 04/21/2025 4:12 PM EDT us Generic External Data Provider LAB BLOOD ORDERAB LES Final Result [facility] [address] [place] [address] [phone] * (ABNORMAL) ~PT, ~INR - ANTI COAG CLINIC (04/21/2025 4:10 PM EDT) Prothrombin Time INR 1.9(H) 0.9 - 1.1 [facility] Comment:METER #: [id number] TERNATIONAL NORMALIZED RATIO (INR) REFERENCE RANGES Reference RangeFor patients not on anticoagulant therapy: 0.9 - 1.1INR ranges for oral anticoagulanttherapy:For prevention and treatment of venous thrombosis and pulmonary embolism: 2.0 - 3.0For acute myocardial infarction with aspirin therapy: 2.0 - 3.0For acute myocardial infarction without aspirin therapy: 3.0 - 4.0For patients with mechanical prosthetic heart valves: 2.5 - 3.5 04/21/2025 4:10 PM EDT 04/21/2025 4:12 PM EDT us Generic External Data Provider LAB BLOOD ORDERAB LES Final Result [facility] [address] [place] [address] [phone] documented in this encounter Visit Diagnoses Not on filedocumented in this encounter Additional Health Concerns Assessment Noted Time PHQ-9 Depression Total Score: 17 025 1:38 PM EDT documented as of this encounter Care Teams Kitchen And Counter Worker Relationship Specialty Start Date End Date Clara Shearer MD [address] [place] [address] PCP - General Family Medicine 07/24/18 documented as of this encounter
--- OUTSIDE RECORDS SUMMARY | 2025-04-21 18:09 | XMS_ITS | Clinical Summary ---
Author Organization [facility] Address [address] [place] [phone] Phone Care Team Providers Care Agency Legal Counsel Name Role Phone Clara Shearer MD Primary Care Provider [phone] Allergies No known active allergies Medications cholecalciferol [...] pancreatitis in November 2022 - following with [facility], last seen in Feb 2023 - [...] on warfarin - previously prescribed metoprolol by paraffin plant operator; no longer on the medication due to hypotension / dizziness - continue following with paraffin plant operator, [facility] Haynes - last TTE in January 2022, mild mitral valve stenosis - continue current treatment plan per cardiology Chronic anticoagulation 11/22/2022 Overview (11/28/2023): Last Assessment & Plan: - indication: Aortic valve replacement - medication warfarin - goal INR 2-3 - followed by [facility] antico[facility] - last INR was 2.0 on 03/01/23 - continue current management plan Abnormal uterine bleeding 11/08/2022 Overview (11/28/2023): Last Assessment & Plan: s/p Endometrial Curetting's, polyp, benign -Pt has follow-up appointment with PROGRAM WRITER -Pt is on Coumadin -Pt requested Hysterectomy, pt will follow-up with PROGRAM WRITER with possible hysterectomy in future Vitamin D deficiency 12/04/2018 Overview (11/28/2023): Last Assessment & Plan: -continue vitamin D supplement History of mechanical aortic valve replacement 0 04/07/2015 Overview (11/28/2023): Last Assessment & Plan: - 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 Mechanical aortic valve functioning normally. Moderate mitral valve stenosis. No regurgitation. - Continue warfarin - Continue SBE prophylaxis. 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 last seen in Aug 2023 - [...] 2:40 AM EDT Emergency [facility] [address] [place] [address] Discharge Disposition: Home or Self Care from [...] this topic Medical Devices Implanted Type Area Splash Line Operator Device Identifier Shelf Expiration Date Model / Serial / Lot Prosthetic Valve Prosthetic Valve Aorta Description:Aortic valve rep lacement in 2009 pt does not know which type of aortic valve was implanted Device Contraceptive 52mg Iud Mirena - Must Order In Multiples Of 5 - [id number] Implanted:Qty: 1 on 08/19/2022 by Ronald Estrada MD at [facility] N/A: Uterus [facility] 06/22/2024 [id number] / / [id number] Procedures Procedure Name Priority Date/Time Associated Diagnosis Comments COVID PANDEMIC RESPIRATORY VIRAL ORDER (PRO) STAT 02/22/2025 11:01 PM EDT RAPID GROUP A STREP SCREEN STAT 02/22/2025 11:01 PM EDT from Last 3 Months Results * (ABNORMAL) Rapid Group A Strep Screen (02/22/2025 11:01 PM EDT) RAPID STREP SCREEN Positive(A ) Negative [facility] Other (Throat) 02/22/2025 11 :01 PM EDT 02/22/2025 11:08 PM EDT Manny Castro MD MICROBIOLOGY - NERAL ORDERABLES Final Result Performing Organization Address [facility]/ZIP Co de Phone Number [address] [phone] * COVID Pandemic Respiratory Viral Order (PRO) (02/22/2025 11:01 PM EDT) Test Ordered Rapid COVID has been ordered [facility] Specimen Source/Description NASAL [facility] SARS-CoV 2 (COVID-19) PCR Not Detected Not Detected [facility] Comment: SARS-CoV-2 not detected Negative results do not preclude SARS-CoV-2 infection and should not be used as the sole basis for patient management decisions. Negative results must be combined with clinical observations, patient history, and epidemiological information. Other (Nasopharyngeal swab) 02/22/2025 11:01 PM EDT 02/22/2025 11:08 PM EDT Manny Castro MD BODY FLUIDS AND S TOOLS ORDERABLES Final Result Performing Organization Address [facility] Co de Phone Number [address] [phone] from Last 3 Months Insurance WELLSENSE NON NSPG PCP [facility] WELLSENSE NON NSPG PCP [employer] [facility] NON NSPG PCP [employer] [facility] NON NSPG PCP S[employer] NON NSPG PCP [employer] [facility] NON NSPG PCP [employer] [facility] NON NSPG PCP S[employer] [facility] NON NSPG PCP [employer] [facility] NON NSPG PCP [employer] Advance Directives For more information, please contact: [phone] (9AM - 5PM [facility], Monday-Monday) * Full Code (Latest Code Status on File) Date Activated Date Inactivated Comments 08/19/2022 9:51 AM Question Answer Comments Code Status Confirmed With: Patient Care Teams Agency Legal Counsel Relationship Specialty Start Date End Date Clara hSearer MD [address] [place] [phone] PCP - General Family Medicine 02/16/22 Additional Source Comments The information contained in this document represents components of the legal health record. It is not the complete legal health record.[facility]
--- OUTSIDE RECORDS SUMMARY | 2025-04-21 18:09 | XMS_ITS | Encounter Summary ---
Author Organization [facility] Address [address] [place] [address] Phone Care Team Providers Care Printed Circuit Boards Laminator Name Role Phone Clara Shearer MD Primary Care Provider [phone] Encounter Details Date Type Department Care Team (Late st Contact Info) Description 06/19/2023 Procedure Pass [facility], Ct Scan - [address] [address] Social History Tobacco Use Types Packs/Day Years [...] 06/19/2023 8:16 AM Wandy Shelby RN * [place] Suicide Severity Rating Scale (Screener/Recent Self-Report) Question [...] documented as of this encounter Care Teams Printed Circuit Boards Laminator Relationship Specialty Start Date End Date Clara Shearer MD [address] [place] [phone] PCP - General Family Medicine 02/16/22 documented as of this encounter Additional Source Comments The information contained in this document represents components of the legal health record. It is not the complete legal health record.[facility]
--- OUTSIDE RECORDS SUMMARY | 2025-04-21 18:09 | XMS_ITS | Encounter Summary ---
Author Organization [employer] Address [address] [place] [address] [address] [place] [address] Care Team Providers Care Magnet Placer Name Role Phone Clara Shearer MD Primary Care Provider [phone] Encounter Details Date Type Department Care Team (Latest Contact Info) Description 09/26/2019 Abstract [facility] CONVERSIONS Dental, Provider, DDS Social History [...] 05/08/2025 8:00 AM EDT Office Visit [facility] ADULT DENTAL [address] [place] [address] Olga, Katt [address] [place] [address] documented as of this encounter Visit Diagnoses Not on filedocumented in this encounter Care Teams Magnet Placer Relationship Specialty Start Date End Date Clara Shearer MD [address] [place] [address] PCP - General Family Medicine 07/24/18 documented as of this encounter
--- OUTSIDE RECORDS SUMMARY | 2025-04-21 18:09 | XMS_ITS | Clinical Summary ---
Author Organization [employer] Address [address] [facility] [address] [place] [address] Care Team Providers Care Flame Gouger Name Role Phone Clara Shearer MD Primary [...] Moderate mitral valve stenosis - following with recreational aide, Dr. Haynes [facility] - Monitor with periodic echo. Adjustment disorder with depressed mood 01/01/20 Assessment & Plan (01/13/2025 5:22 AM EDT): - Seen by integrated behavioral health service clinician today Localized gingival recession 10/31/2024 Chronic headache 05/30/2024 Assessment & Plan (04/13/2025 7:48 PM EDT): - Following with neurologist, [facility], last seen in January 2025 - pt [...] has sleep study which was ordered by recreational aide. Patient was referred to sleep medicine specialist [...] PT with minimal improvement - evaluated by [facility] orthopedist in March 2024. MRI in 2023 [...] PT with minimal improvement - evaluated by [facility] orthopedist in March 2024. MRI in 2023 showed change - pt was seen by spine center provider in September 2024. 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 MRI was ordered and patient was referred to [facility] for injection treatment. - patient has received 3 injection treatments with no improvement - patient was advised to contact [facility] orthopedist to inquire MRI Assessment & Plan [...] pancreatitis in November 2022 - following with [facility] GI, last seen in May 2024 - [...] pancreatitis in November 2022 - following with [facility] GI, last seen in Feb 2023 - [...] on warfarin - previously prescribed metoprolol by recreational aide; no longer on the medication due to hypotension / dizziness - continue following with recreational aide, [facility] Dr Haynes - last TTE on 09/19/2023: Left ventricular systolic function was normal. EF 57%. Mechanical prosthetic aortic valve, which is functioning normally. Moderate mitral valve stenosis - continue current treatment plan per cardiology Assessment & Plan (12/30/2024 9:32 AM EDT): - s/p AVR in Feb 2010 - on warfarin - previously prescribed metoprolol by recreational aide; no longer on the medication due to hypotension / dizziness - continue following with recreational aide, [facility] Dr Haynes - last TTE in January 2022, mild mitral valve stenosis - continue current treatment plan per cardiology Assessment & Plan (05/30/2024 12:22 PM EST): - s/p AVR in Feb 2010 - on warfarin - previously prescribed metoprolol by recreational aide; no longer on the medication due to hypotension / dizziness - continue following with recreational aide, [facility] Dr Haynes - last TTE in January 2022, mild mitral valve stenosis - continue current treatment plan per cardiology Assessment & Plan (03/19/2023 1:47 PM EDT): - s/p AVR in Feb 2010 - on warfarin - previously prescribed metoprolol by recreational aide; no longer on the medication due to hypotension / dizziness - continue following with recreational aide, [facility] Dr Haynes - last TTE in January 2022, mild mitral valve stenosis - continue current treatment plan per cardiology Assessment & Plan (11/22/2022 11:35 AM EDT): - s/p AVR in Feb 2010 - on warfarin - previously prescribed metoprolol by recreational aide; no longer on the medication due to hypotension / dizziness - continue following with recreational aide, [facility] Dr Haynes - last TTE in January 2022, mild mitral valve stenosis - continue current treatment plan per cardiology Chronic anticoagulation 11/22/2022 Assessment & Plan (12/30/2024 9:33 AM EDT): - indication: Aortic valve replacement - medication warfarin - goal INR 2-3 - followed by [facility] anticoagulation clinic - last INR was 2.0 on 03/01/23 - continue current management plan Assessment & Plan (05/30/2024 1:41 PM EST): - indication: Aortic valve replacement - medication warfarin - goal INR 2-3 - followed by [facility] anticoagulation clinic - last INR was 2.0 on 03/01/23 - continue current management plan Assessment & Plan (03/19/2023 1:49 PM EDT): - indication: Aortic valve replacement - medication warfarin - goal INR 2-3 - followed by [facility] anticoagulation clinic - last INR was 2.0 on 03/01/23 - continue current management plan Assessment & Plan (11/22/2022 11:40 AM EDT): - indication: Aortic valve replacement - medication warfarin - goal INR 2-3 - followed by [facility] anticoagulation clinic - last INR was 2.4 [...] polyp, benign -Pt has follow-up appointment with [facility] -Pt is on Coumadin -Pt requested Hysterectomy, pt will follow-up with [facility] with possible hysterectomy in future Assessment & Plan (11/08/2022 4:50 PM EDT): s/p Endometrial Curetting's, polyp, benign -Pt has follow-up appointment with [facility] -Pt is on Coumadin -Pt requested Hysterectomy, pt will follow-up with [facility] with possible hysterectomy in future Cyst of ovary 09/22/2022 Iron deficiency anemia due to chronic blood loss 09/22/2022 Assessment & Plan (05/30/2024 1:41 PM EST): - AUB in a setting of anticoagulation - s/p removal of endometrial polyp, benign - Pt has follow-up appointment with [facility] - Pt is taking Coumadin Assessment & Plan (11/03/2023 12:09 PM EDT): - AUB in a setting of anticoagulation - s/p removal of endometrial polyp, benign -Pt has follow-up appointment with [facility] -Pt is taking Coumadin Assessment & Plan (11/08/2022 4:45 PM EDT): Due to AUB: S/p Endometrial Curetting's, polyp, benign -Pt has follow-up appointment with [facility] -Pt is taking Coumadin Vitamin D deficiency 12/04/2018 Assessment & Plan (12/30/2024 9:34 AM EDT): -continue vitamin D supplement Assessment & Plan (11/03/2023 12:08 PM EDT): -continue vitamin D supplement Presence of subdermal contraceptive implant 09/2014 History of mechanical aortic valve replacement 0 04/07/2015 Assessment & Plan (04/13/2025 7:36 PM EDT): - [facility], last seen in December 2023 - s/p AVR for rheumatic disease and aortic regurgitation in Feb 2010 - EKG showed sinus rhythm and RBBB - echocardiogram 08/30/2023 EF 57%. Mechanical aortic valve functioning normally. Moderate mitral valve stenosis. No regurgitation. - Continue warfarin - Continue SBE prophylaxis. Assessment & Plan (12/30/2024 9:32 AM EDT): - 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 Mechanical aortic valve functioning normally. Moderate mitral valve stenosis. No regurgitation. - Continue warfarin - Continue SBE prophylaxis. 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 Mechanical aortic valve functioning normally. Moderate mitral valve stenosis. No regurgitation. - Continue warfarin - Continue SBE prophylaxis. 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 Mechanical aortic valve functioning normally. Moderate mitral valve stenosis. No regurgitation. - Continue warfarin - Continue SBE prophylaxis. 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 - Continue SBE prophylaxis. Assessment & Plan (11/22/2022 11:37 AM EDT): - Grading Clerk: Dr. Dallas Duran, last seen in Jul [...] & Plan (04/13/2025 7:36 PM EDT): - Grading Clerk: Dr. Dallas HUMPHREY, last seen in December 2024 - s/p AVR for rheumatic disease and aortic regurgitation due to rheumatic heart disease in Feb 2010 - EKG showed sinus rhythm and RBBB - echocardiogram in Aug 2023, EF 59%. Normally functioning AV. Moderate mitral valve stenosis. - Continue warfarin, per cardiology. - Continue SBE prophylaxis. 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 Normally functioning AV. Moderate mitral valve stenosis. - Continue warfarin, per cardiology. - Continue SBE prophylaxis. 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 Normally functioning AV. Moderate mitral valve stenosis. - Continue warfarin, per cardiology. - Continue SBE prophylaxis. 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 Normally functioning AV. Moderate mitral valve stenosis. - Continue warfarin, per cardiology. - Continue SBE prophylaxis. Assessment & Plan (11/22/2022 11:36 AM EDT): - Grading Clerk: Dr. Dallas Duran, last seen in Jul [...] EDT): - 12/03/22 Evaluated and treated at [facility] ED. WBC 13k, Lipase 247, CT showed pancreatitis. Given IVF and analgesics. - Seen by [facility] GI in December 2022 - MRI on 03/01/23 was normal. - HgbA1C 5.9% - Follow recommendations per GI. Menometrorrhagia 09/22/2022 03/07/2023 Pain in female pelvis 09/22/20222022 Encounters Date Type Department Care Team Description 04/21/2025 Orders Only GENERIC EXTERNAL DATA DEPARTMENT Provider, Generic External Data 04/17/[address] [address] Clara Shearer MD Critical Result 04/17/2025 Orders Only GENERIC EXTERNAL DATA DEPARTMENT Provider, Generic External Data 04/10/2025 Orders Only GENERIC EXTERNAL DATA DEPARTMENT Provider, Generic External Data 04/01/2025 3:45 PM EDT Office Visit [address] [address] Clara Shearer MD Chronic pain of both [...] unspecified headache type 04/01/2025 Travel 03/31/[address] [phone] Clara Shearer MD chart prep 03/25/[address] [address] Clara Shearer MD Paperwork/Forms 03/20/2025 Orders Only GENERIC EXTERNAL DATA DEPARTMENT Provider, Generic External Data 02/21/2025 Orders Only [facility] [address] [place] [address] Clara Shearer MD Hematuria, unspecified type (Primary Dx) 2025 Orders Only GENERIC EXTERNAL DATA DEPARTMENT Provider, Generic External Data 02/14/2025 Results Follow-Up [facility] [address] [place] [address] Clara Shearer MD Albumin, Random Urine W/Creatinine, Urinalysis, Complete, with Reflex to Culture 02/13/2025 3:00 PM EDT Office Visit [facility] [address] [place] [address] Kenroy, Meliza, OD Presbyopia (Primary Dx); Meibomian gland disease, unspecified laterality 02/13/2025 Travel 02/07/2025 Refill [facility] [address] [place] [address] Clara Shearer MD History of mechanical aortic [...] 8:00 AM EDT Office Visit [facility] [address] [place] [address] Olga, Katt [address] [place] [address] Health Maintenance Due Date Last Done Comments [...] 04/01/2025 Dental X-Ray: Full Mouth 04/20/2026 04/19/2023, 0710/2020 Mammogram 10/04/2026 10/04/2024, 06/0 08/2022, 12/23/2022, Additional [...] [facility] Routine 04/21/2025 4:10 PM EDT PROTHROMBIN TIME-INR Routine 04/17/2025 2:48 PM EDT [...] WHOLE BLD POC (04/21/2025 4:10 PM EDT) Only the most recent of5 resultswithin the time period is included. Protime 23.0(H) 11.1 - 13.5 sec [facility] 04/21/2025 4:10 PM EDT 04/21/2025 4:12 PM EDT us Generic External Data Provider LAB BLOOD ORDERAB LES Final Result [facility] [address] [place] [phone] * (ABNORMAL) ~PT, ~INR - ANTI [facility] (04/21/2025 4:10 PM EDT) Only the most recent of5 resultswithin the time period is included. Prothrombin Time INR 1.9(H) 0.9 - 1.1 [facility] Comment:METER #: [id number] TERNATIONAL NORMALIZED RATIO (INR) REFERENCE RANGES Reference [...] ORDERAB LES Final Result Performing Organization Address [facility] Co de Phone Number [facility] [address] [place] [phone] * (ABNORMAL) Prothrombin Time-INR (04/17/2025 2:48 PM EDT) Prothrombin Time 65.0(H) 10.9 - 12.4 SEC [facility] INTERNATIONAL NORM RATIO 5.7(HH) 0.9 - 1.1 [facility] Comment:RESULTS OF PT/INR CA [...] ORDERAB LES Final Result Performing Organization Address [facility] Co de Phone Number [facility] [address] [place] [phone] * US Retroperitoneal Complete (04/11/2025 9:01 AM EDT) Anatomical Region Laterality Modality Ultrasound 04/11/2025 9:01 AM EDT Narrative 04/11/2025 9:02 AM EDT [address] [address] Ultrasound Report Signed Patient: Thalia Martell MR#: [id number] 2088 : 1975 Acct:[id number] Age/Sex: 50 / F ADM Date: 04/10/25 Loc: HO.US Attending Dr: Clara Shearer MD Ordering Physician: Clara Shearer MD Date of Service: 04/10/25 Procedure(s): US retroperitoneal comp Accession Number(s): [id number] cc: Clara Shearer MD Reason for Exam: hematuria CLINICAL HISTORY: hematuria US Renal Comparison: None provided Findings: Right kidney normal size and echotexture, 10.9 cm length. Left kidney normal size and echotexture, 12.7 cm length. The labor relations teacher demonstrates mild pelvic fullness bilaterally. It is [...] in OV> 04/11/25901 DD/ 0 TD/TT: 04/11/25900 Mrp Controller: Procedure Note Donotuseinterpreter, Image - 04/11/2025 [place] [address] Ultrasound Report Signed Patient: Yoel Martell#: [id number] : 1975Acct:[id number] Age/Sex: 50 / FADM Date: 04/10/25 Loc: HO.US Attending Dr: Clara Shearer MD Ordering Physician: Clara Shearer MD Date of Service: 04/10/25 Procedure(s): US retroperitoneal comp Accession Number(s): [id number] cc: Clara Shearer MD Reason for Exam: hematuria CLINICAL HISTORY: hematuria US Renal Comparison: None provided Findings: Right kidney normal size and echotexture, 10.9 cm length. Left kidney normal size and echotexture, 12.7 cm length. The labor relations teacher demonstrates mild pelvic fullness bilaterally. It is [...] in OV> 04/11/25901 DD/ 0 TD/TT: 04/11/25900 Mrp Controller: us Clara Shearer MD [facility] PROCEDURES Edited Result - Final * Vitamin D, 25-Hydroxy, Total, Immunoassay (2025 2:43 PM EDT) Vitamin D 25-OH Total 46.7 >30 ng/mL [facility] Comment: Health Based Reference Values*< 20 ng/mL [id number] ng/mL Insufficient> 30 ng/mL Sufficient*Paul LEVIN. N [...] ORDERAB LES Final Result Performing Organization Address [facility]/ZIP Co de Phone Number [facility] [address] [place] [phone] * Vitamin B12 (Cobalamin) and Folate Panel, Serum (2025 2:43 PM EDT) Vitamin B12 637 200 - 900 pg/mL [facility] Comment:NORMAL 200-900 PG/M L INDETERMINATE 160-199 PG/ML DEFICIENT < 160 PG/ML Folate 11.2 > or = 4.0 ng/mL [facility] Comment:Reference Values:> o r = 4.0 ng/mL< 4.0 ng/mL suggests folate deficiency Methotrexate, aminopterin and folinic acid(leucovorin) are chemotherapeutic agents whose molecularstructures are similar to folate; therefore, the Architectfolate assay cannot be used for patients using these drugs. 2025 2:43 PM EDT 2025 2:43 PM EDT Generic External Data Provider LAB BLOOD ORDERAB LES Final Result Performing Organization Address [facility] Co de Phone Number [facility] [address] [place] [phone] * TSH with Reflex to Free T4 (2025 2:43 PM EDT) TSH reflex Free T4 1.21 0.32 - 4.0 uIU/mL [facility] 2025 2:43 PM EDT 2025 2:43 PM EDT Generic External Data Provider LAB BLOOD ORDERAB LES Final Result Performing Organization Address [facility]/ZIP Co de Phone Number [facility] [address] [place] [phone] * (ABNORMAL) Lipid Panel with Reflex to Direct LDL (2025 2:43 PM EDT) Triglycerides 143 <150 mg/dL [facility] Comment:Desirable Triglyceri de: less than 150 mg/dLBorderline High Triglyceride 150-199 mg/dLHigh Triglyceride: 200-499 mg/dLVery High Triglyceride: greater than or equal to 5OO mg/dL Cholesterol 197 <200 mg/dL [facility] Comment:Desirable Cholestero l: less than 200 mg/dLBorderline High Cholesterol: 200-239 mg/dLHigh Cholesterol: greater than 239 mg/dL LDL Cholesterol Calculated 117(H) <100 mg/dL [facility] Comment:Desirable LDL: less than 100 mg/dLNear Optimal/Above Optimal LDL: 110- 129 mg/dLBorderline High LDL: 130-159 mg/dLHigh LDL: 160-189 mg/dLVery High LDL: greater than or equal to 190 mg/dL HDL Cholesterol 52 >40 mg/dL [facility] Comment:Desirable HDL: great er than 40 mg/dL Note: This HDL assay may give artificially low results in patients with liver disease. 2025 2:43 PM EDT 2025 2:43 PM EDT us Generic External Data Provider LAB BLOOD ORDERAB LES Final Result [facility] [address] [place] [phone] * Methylmalonic Acid (2025 2:43 PM EDT) Methylmalonic Acid 81 55 - 335 nmol/L [facility] Comment: Serum methylmalonic acid (MMA) [...] outcomes,such as neural tube defects and intrauterine growthrestriction.[employer] utilized Multi-Modal Decomposition(MMD) analysis to establish first and second trimester-specific MMA reference intervals in , as givenbelow:MMA, First trimester (<13 wks gestation): 58-167 nmol/LMMA, Second trimester (13-23 wks gestation):63-241 nmol/LThis test was developed and its analytical performancecharacteristics have been determined by [employer]. It has not been cleared or approved by theA. This assay has been validated pursuant to the CLIAregulations and is used for clinical purposes.THIS TEST WAS PERFORMED AT:[id number] [place] [id number] OMER MD,PHD 2025 2:43 PM EDT 2025 2:43 PM EDT us Generic External Data Provider LAB BLOOD ORDERAB LES Final Result [facility] [address] [place] [phone] * CBC (2025 2:43 PM EDT) White Blood Count 5.6 4.8 - 10.8 X10*3/uL [facility] Red Blood Count 4.37 4.20 - 5.50 X10*6/uL [facility] Hemoglobin 13.3 12.0 - 16.0 g/dl [facility] Hematocrit 38.8 37.0 - 47.0 % [facility] Mean Corpuscular Volume 88.8 80.0 - 98.0 fL [facility] Mean Corpuscular Hemoglobin 30.4 27.0 - 33.0 pg [facility] Mean Corpuscular HGB Conc 34.3 31.0 - 35.0 g/dl [facility] Red Cell Distribution Width 12.9 11.0 - 16.0 % [facility] Platelet Count 256 160 - 400 X10*3/uL [facility] Mean Platelet Volume 9.8 9.4 - 12.3 fL [facility] NRBC Pct Auto 0.0 0.0 - 0.2 /100WBC [facility] NRBC Abs Auto 0.000 0.0 - 0.012 X10*3/uL [facility] 2025 2:43 PM EDT 2025 2:43 PM EDT Generic External Data Provider LAB BLOOD ORDERAB LES Final Result Performing Organization Address [facility]/ZIP Co de Phone Number [facility] [address] [place] [phone] * Homocysteine (2025 2:43 PM EDT) Homocysteine 5.0 < or = 11.0 umol/L [facility] Comment:Homocysteine is incr eased by functional deficiency offolate or vitamin B12. Testing for methylmalonic aciddifferentiates between these deficiencies. Other causesof increased homocysteine include renal failure, folateantagonists such as methotrexate and phenytoin, andexposure to nitrous oxide.Sarah Muse, et al., [employer] Med. 1999;131(5):331-9.THIS TEST WAS PERFORMED AT:[employer] [place] [id number] GUPTA MD 2025 2:43 PM EDT 2025 2:43 PM EDT Generic External Data Provider LAB BLOOD ORDERAB LES Final Result Performing Organization Address [facility]/ZIP Co de Phone Number [facility] [address] [place] [phone] * Hemoglobin A1c (2025 2:43 PM EDT) Hemoglobin A1c 5.7 <6.0 % [facility] Comment:Hemoglobin A1C Refer ence Range Adults: 4.8 - 6.0 % Non diabetic: < 6.0 % Goal: < 7.0 %Additional Action Suggested: > 8.0 %Note: Hemoglobin A1c results are invalid for patients with abnormal amounts of HbF. Blood transfusions may impact the HbA1c concentration in the patient sample. Estimated Average Glucose 117 mg/dL [facility] Comment:eAG = Estimated ave rage glucose which is %A1C expressed asaverage glucose, using the formula of the I1U-BrpcsauXrflste Glucose study (ADAG), Diabetes Care, Vol.31,#8,Feb. 2007 2025 2:43 PM EDT 2025 2:43 PM EDT Generic External Data Provider LAB BLOOD ORDERAB LES Final Result Performing Organization Address [facility] Co de Phone Number [facility] [address] [place] [phone] * Ferritin (2025 2:43 PM EDT) Pathologist [facility] Ferritin 93 10 - 250 ng/mL [facility] 2025 2:43 PM EDT 2025 2:43 PM EDT [employer] External Data Provider LAB BLOOD ORDERAB LES Final Result Performing Organization Address [facility] de Phone Number [facility] [address] [place] [phone] * (ABNORMAL) Comprehensive Metabolic Panel (2025 2:43 PM EDT) Sodium 138 135 - 145 mmol/L [facility] Potassium 3.6 3.3 - 5.1 mmol/L [facility] Chloride 108 96 - 108 mmol/L [facility] Carbon Dioxide 23 22 - 29 mmol/L [facility] Anion Gap 11(L) 12 - 20 [facility] Urea Nitrogen (BUN) 13 9 - 16 mg/dL [facility] Creatinine, Serum 0.51 0.5 - 1.4 mg/dL [facility] Estimated Glomerular Filt Rate >60 [facility] Comment:Chronic Kidney Disea se: Estimated GFR < 60 mL/min/1.39d5Bdmadx Kidney Disease: Estimated GFR < 15 mL/min/1.73m2 Glucose 99 60 - 115 mg/dL [facility] Calcium 8.8 8.4 - 10.2 mg/dL [facility] Bilirubin, Total 0.5 0.0 - 1.0 mg/dL [facility] Aspartate Amino Transferase 28 5 - 31 U/L [facility] [facility] Alanine Aminotransferase 41(H) 0 - 31 U/L [facility] Total Protein 7.1 6.5 - 8.0 g/dL [facility] Albumin Level 4.2 3.5 - 5.0 g/dL [facility] Alkaline Phosphatase 76 39 - 117 U/L [facility] 2025 2:43 PM EDT 2025 2:43 PM EDT us Generic External Data Provider LAB BLOOD ORDERAB LES Final Result [facility] [address] [place] [address] [phone] * (ABNORMAL) Urinalysis, Complete, with Reflex to Culture (2025 2:38 PM EDT) Only the most recent of2 resultswithin the time period is included. Color Urine Yellow [facility] Appearance Urine Clear [facility] PH 5.5 5.0 - 9.0 [facility] Glucose Urine UA Negative Negative mg/dL [facility] Urine Blood Moderate (2+)(A) Negative [facility] Specific [place] - Urine 1.015 1.005 - 1.025 [facility] Urine Protein Negative Neg-Trace mg/dL [facility] Urine Ketones Negative Negative mg/dL [facility] Nitrite Urine Negative Negative [facility] Leukocyte Esterase Urine Negative Negative [facility] RBC Urine 0-2 0 - 2 /HPF [facility] Urine WBC 0-5 0 - 5 /HPF [facility] Urine Squamous Epithelial Cell 0-2 0 - 2 /HPF [facility] Urine Bacteria None Seen None Seen [facility] Hyaline Casts, Urine 0-2 0 - 2 /LPF [facility] Urine 2025 2:38 PM EDT 2025 3:15 PM EDT Narrative [facility] - 2025 3:28 PM EDT Urine, Clean Catch us Clara Shearer MD LAB URINE ORDERABLES Final Resul t Performing Organization Address [facility] Co de Phone Number [facility] [address] [place] [address] [phone] * Albumin, Random Urine W/Creatinine (02/13/2025 4:15 PM EDT) Creatinine, Urine 84.01 mg/dL [facility] Microalbumin Urine 7.0 mg/L [facility] Microalbum Creatinine Ratio Ur 8.3 <30 ug/mg cr [facility] Comment:Albumin/Creatinine R atio Reference Ranges: Normal: < 30 ug/mg creatinine Microalbuminuria: 30 - 300 ug/mg creatinineClinical Albuminuria: > 300 ug/mg creatinine Urine 02/13/2025 4:15 PM EDT 02/13/2025 5:31 PM EDT us Clara Shearer MD LAB URINE ORDERABLES Final Resul t Performing Organization Address [facility] Co de Phone Number [facility] [address] [place] [address] [phone] * BI Mammogram Screening Tomosynthesis Bilateral (10/04/2024 3:55 PM EDT) Anatomical Region Laterality Modality Breast Bilateral Mammography 10/04/2024 3:55 PM EDT Narrative 10/13/2024 6:12 PM EDT [address] [place] [address] Mammography Report Signed Patient: Thalia Martell MR#: [id number] 2088 : 1975 Acct:[id number] Age/Sex: 49 / F ADM Date: 10/04/24 Loc: HO.MAMMO Attending Dr: Clara Shearer MD Ordering Physician: Clara Shearer MD Results: 1Negative Date of Service: 10/04/24 Follow Up: 1 Year From Orig inal Mammogram Procedure(s): MM tomosynthesis screening BI Accession Number(s): [id number] cc: Clara Shearer MD EXAMINATION: MM SCREENING [...] by June Schrader DO in OV> 10/13/24 1802 DD/ 1555 TD/TT: 10/04/24 1608 Mrp Controller: Procedure Note Donotuseinterpreter, Image - 10/13/[address] [place] [address] Mammography Report Signed Patient: Yoel Martell#: [id number] 2088 : 1975Acct:[id number] Age/Sex: 49 / FADM Date: 10/04/24 Loc: HO.MAMMO Attending Dr: Clara Shearer MD Ordering Physician: Clara Shearer MDResults: 1Negative Date of Service: 10/04/24Follow Up: 1 Year From Orig inal Mammogram Procedure(s): MM tomosynthesis screening BI Accession Number(s): [id number] cc: Clara Shearer MD EXAMINATION: MM SCREENING [...] 10/13/24 1809 DD/ 1555 TD/TT: 10/04/24 1608 Mrp Controller: Clara Shearer MD [facility] BI PROCEDURES Edited Result - Final * Hepatitis Panel, General (12/11/2023 4:30 PM EDT) Hepatitis A IgM Nonreactive Nonreactive [facility] Comment:IgM antibodies to HEMPHILL V not detected; does not exclude earlyacute or recovered HAV infection. ~Hepatitis B Surface Antibody REACTIVE Nonreactive [facility] Comment:REACTIVE: > 11.99 mI U/mL Hepatitis B Core Antibody Nonreactive Nonreactive [facility] Hepatitis C Antibody Nonreactive Nonreactive [facility] Comment:Antibodies to HCV no t detected; does not exclude early acuteHCV infection. Hepatitis B Surface Ag Negative Negative [facility] 12/11/2023 4:30 PM EDT 12/11/2023 4:33 PM EDT us Generic External Data Provider LAB BLOOD ORDERAB LES Final Result Performing Organization Address City/[facility]/ZIP Co de Phone Number [facility] [address] [place] [address] [phone] * HIV-1 RNA, Quantitative, Real-Time PCR (12/15/2022 8:09 AM EDT) Pathologist [facility] HIV 1 RNA, QN PCR NOT DETECTED NOT DETECTED copies/mL [employer] [place] [employer] HIV 1 RNA, QN PCR NOT DETECTED NOT DETECTED Log copies/mL [employer] [place] [facility] Comment: This test was performed using Real-Time Polymerase Chain Reaction. Reportable Range: 20 copies/mL to 10,000,000 copies/mL (1.30 log copies/mL to 7.00 log copies/mL). Blood Venous blood specimen / Unknown 12/15/2022 8:09 AM EDT 12/15/2022 8:10 AM EDT Narrative [facility] - 12/23/2022 6:53 PM EDT FASTING:NO FASTING: NO us Yany Cosby MILLINERY DEPARTMENT MANAGER LAB BLOOD ORDERABLES Final Res ult Performing Organization Address City/[facility]/ZIP Co de Phone Number [facility] [address], [place] [address] [employer] [place] [facility] [address] [place] [phone] * THINPREP PAP (11/13/2020 4:51 PM EDT) [...] along with historic and current clinical information. Foundry Finisher : SEE COMMENT [facility] Comment: RK, CT(ASCP) CT screening location: [place] [address] Interpretation/R esult: Negative for intraepithelial lesion or malignancy. [facility] LMP: NONE GIVEN [facility] Prev. BX: NONE [facility]IVEN [facility] Prev. PAP: NONE GIVEN [facility] Review Foundry Finisher : SEE COMMENT [facility] Comment: BLC,CT(ASCP) CT screening location: [place] [address] SOURCE: None given [facility] Statement Of Adequacy: SEE COMMENT [facility] Comment: Satisfactory for evaluation. Endocervical/transformation zone component present. Age and/or menstrual status not provided 11/13/2020 4:51 PM EDT Ginette Her NP LAB PATHOLOGY ORDERABLES Final Result Performing Organization Address [facility] de Phone Number [facility] [address] * HPV GENOTYPES 16,18/45 (11/13/2020 4:51 PM EDT) HPV 16 RNA NOT DETECTED NOT DETECTED [facility] HPV 18/45 RNA NOT DETECTED NOT DETECTED [facility] Comment: Methodology: Automation Analyst Mediated Amplification The analytical performance characteristics of this assay have been determined by [employer]. The modifications have not been cleared or approved by the FDA. This assay has been validated pursuant to the CLIA regulations and is used for clinical purposes. 11/13/2020 4:51 PM EDT Ginette Her NP LAB CYTOLOGY ORDERABLES Final R esult Performing Organization Address [facility] Co de Phone Number [facility] [address] from Last 3 Months or Most Recently Relevant to Health Maintenance Insurance [facility] 2 DENTAL - HSN PARTIAL (MEDICAID) Care Teams Flame Gouger Relationship Specialty Start Date End Date Clara Shearer MD [address] [place] [address] PCP - General Family Medicine 07/24/18
--- OUTSIDE RECORDS SUMMARY | 2025-04-21 18:09 | XMS_ITS | Encounter Summary ---
Author Organization [employer] Address [address] [facility] 7t [place] [address] Care Team Providers Care Support Assistant Name Role Phone Clara Shearer MD Primary Care Provider [phone] Encounter Details Date Type Department Care Team [...] t he electric, gas, oil or water [employer] threatened to shut off services in your [...] Description 05/08/2025 8:00 AM EDT Office Visit [facility] [address] [place], [place] [phone] Olga, Katt [address] [place] [address] documented as of this encounter Procedures Procedure Name Priority Date/Time Associated Diagnosis Comments PROTHROMBIN TIME-INR Routine 04/17/2025 2:48 PM EDT PROTHROMBIN TIME WHOLE BLD POC Routine 04/17/2025 2:25 PM EDT ~PT, ~INR - ANTI COAG CLINIC Routine 04/17/2025 2:25 PM EDT documented in this encounter Results * (ABNORMAL) Prothrombin Time-INR (04/17/2025 2:48 PM EDT) [facility] Prothrombin Time 65.0(H) 10.9 - 12.4 SEC [facility] INTERNATIONAL NORM RATIO 5.7(HH) 0.9 - 1.1 [facility] Comment:RESULTS OF PT/INR CA LLED TO [...] ORDERAB LES Final Result Performing Organization Address [facility] Co de Phone Number [facility] [address] [place] [phone] * (ABNORMAL) PROTHROMBIN TIME WHOLE BLD POC (04/17/2025 2:25 PM EDT) Protime 71.3(H) 11.1 - 13.5 sec [facility] 04/17/2025 2:25 PM EDT 04/17/2025 2:27 PM EDT Generic External Data Provider LAB BLOOD ORDERAB LES Final Result Performing Organization Address [facility] Co de Phone Number [facility] [address] [place] [phone] * (ABNORMAL) ~PT, ~INR - ANTI COAG CLINIC (04/17/2025 2:25 PM EDT) Prothrombin Time INR 5.9(HH) 0.9 - 1.1 [facility] Comment:METER #: [id number] TERNATIONAL NORMALIZED RATIO (INR) REFERENCE RANGES Reference [...] Provider LAB BLOOD ORDERAB LES Final Result [facility] [address] [place] [phone] documented in this encounter Visit Diagnoses Not on filedocumented in this encounter Additional Health Concerns Assessment Noted Time PHQ-9 Depression Total Score: 17 025 1:38 PM EDT documented as of this encounter Care Teams Support Assistant Relationship Specialty Start Date End Date Clara Shearer MD [address] [place] [phone] PCP - General Family Medicine 07/24/18 documented as of this encounter
--- OUTSIDE RECORDS SUMMARY | 2025-04-21 18:09 | XMS_ITS | Encounter Summary ---
Author Organization [facility] Address [address] [place] [phone] Phone Care Team Providers Care Pattern Stamper Name Role Phone Clara Shearer MD Primary Care Provider [phone] Encounter Details Date Type Department Care Team (Late st Contact Info) Description 08/19/2022 Procedure Pass OR Admitting Dept - Virtual Department [address] [place] [address] Social History Tobacco Use Types Packs/Day Years [...] documented as of this encounter Care Teams Pattern Stamper Relationship Specialty Start Date End Date Clara Shearer MD [address] [place] [phone] PCP - General Family Medicine 02/16/22 documented as of this encounter Additional Source Comments The information contained in this document represents components of the legal health record. It is not the complete legal health record.[facility]
--- OUTSIDE RECORDS SUMMARY | 2025-04-21 18:09 | XMS_ITS | Encounter Summary ---
Author Organization [employer] Address [address] [facility] 7t [place] [address] Care Team Providers Care Armature Coil Winder Name Role Phone Clara Shearer MD Primary Care Provider [phone] Encounter Details Date Type Department Care Team ([facility] st Contact Info) Description 01/22/2024 Orders Only [facility] [address] [place], [place] [phone] Clara Shearer MD [address] [place], [place] [phone] History of mechanical aortic valve replacement Social [...] Description 05/08/2025 8:00 AM EDT Office Visit [facility]ULT [facility] [address] [place] [address] Katt Espinoza [address] [place] [address] documented as of this encounter Visit Diagnoses Diagnosis History of mechanical aortic valve replacement documented in this encounter Additional Health Concerns Assessment Noted Time PHQ-9 Depression Total Score: 0 10/17/19 24 3:45 PM EDT documented as of this encounter Care Teams Armature Coil Winder Relationship Specialty Start Date End Date Clara Shearer MD [address] [place] [address] PCP - General Family Medicine 07/24/18 documented as of this encounter
--- OUTSIDE RECORDS SUMMARY | 2025-04-21 18:09 | XMS_ITS | Encounter Summary ---
Author Organization [employer] Address [address] [facility] 7t [place] [address] Care Team Providers Care Electrical Test Engineer Name Role Phone Clara Shearer MD Primary Care Provider [phone] Reason for Visit * Reason Onset Date Comments rs prophy 05/22/2023 Encounter Details Date Type Department Care Team ([facility] st Contact Info) Description 05/22/[address] [facility] ADULT DENTAL [address] [place], [place] [phone] Olga, Katt [address] [place] [address] rs prophy Social History Tobacco Use Types [...] EDT Office Visit [facility] ADULT DENTAL [address] [place] [address] Katt Espinoza [address] [place] [address] documented as of this encounter Visit Diagnoses Not on filedocumented in this encounter Additional Health Concerns Assessment Noted Time PHQ-9 Depression Total Score: 5 03/07/20 23 3:27 PM EDT documented as of this encounter Care Teams Electrical Test Engineer Relationship Specialty Start Date End Date Clara Shearer MD [address] [place] [address] PCP - General Family Medicine 07/24/18 documented as of this encounter
--- OUTSIDE RECORDS SUMMARY | 2025-04-21 18:09 | XMS_ITS | Encounter Summary ---
Author Organization [facility] Address [address] [place] [address] Phone Care Team Providers Care Engineering Aide Name Role Phone Clara Shearer MD Primary Care Provider [phone] Encounter Details Date Type Department Care Team (Late st Contact Info) Description 12/04/2022 Procedure Pass [facility], Ct Scan - [address] [address] Social History Tobacco Use Types Packs/Day Years [...] documented as of this encounter Care Teams Engineering Aide Relationship Specialty Start Date End Date Clara Shearer MD [address] [place] [address] PCP - General Family Medicine 02/16/22 documented as of this encounter Additional Source Comments The information contained in this document represents components of the legal health record. It is not the complete legal health record.[facility]
--- OUTSIDE RECORDS SUMMARY | 2025-04-21 18:09 | XMS_ITS | Encounter Summary ---
Author Organization [facility] Address [address] [place] [address] Phone Care Team Providers Care Landscape Specialist Name Role Phone Unknown, Unknown Primary Care Provider Clara Thompson MD Primary Care Provider [phone] Clara Shearer MD Primary Care Provider Encounter Details Date Type Department Care Team (Late st Contact Info) Description 11/09/2020 Procedure Pass [facility], Ct Scan - [facility] [address] [place] [address] Social History Tobacco Use Types Packs/Day Years [...] 8:03 PM EDT Marysol Hurt RN * [place] Suicide Severity Rating Scale (Screener/Recent Self-Report) Question [...] documented as of this encounter Care Teams Landscape Specialist Relationship Specialty Start Date End Date Unknown, Unknown, MD PCP - General 02/24/18 11/09/20 Clara Shearer MD [address] [place] [address] PCP - General Family Medicine 11/10/20 02/15/22 Clara Shearer MD [address] [place] [address] PCP - General Family Medicine 02/16/22 documented as of this encounter Additional Source Comments The information contained in this document represents components of the legal health record. It is not the complete legal health record.[facility]
--- OUTSIDE RECORDS SUMMARY | 2025-04-21 18:09 | XMS_ITS | Encounter Summary ---
Author Organization [facility] Address [address] [place] [address] Phone Care Team Providers Care Accreditation Coordinator Name Role Phone Clara Shearer MD Primary Care Provider [phone] Encounter Details Date Type Department Care Team (Late st Contact Info) Description 06/19/2023 Procedure Pass [facility], Ct Scan - [address] [address] Social History Tobacco Use Types Packs/Day Years [...] 06/19/2023 8:16 AM Wandy Shelby RN * [place] Suicide Severity Rating Scale (Screener/Recent Self-Report) [...] documented as of this encounter Care Teams Accreditation Coordinator Relationship Specialty Start Date End Date Clara Shearer MD [address] [place] [address] PCP - General Family Medicine 02/16/22 documented as of this encounter Additional Source Comments The information contained in this document represents components of the legal health record. It is not the complete legal health record.[facility]
--- OUTSIDE RECORDS SUMMARY | 2025-04-21 18:09 | XMS_ITS | Encounter Summary ---
Author Organization [employer] Address [address] [facility] 7t [place] [address] Care Team Providers Care Import Coordinator Name Role Phone Clara Shearer MD Primary Care Provider [phone] Reason for Visit * Reason Onset Date Comments Nurse Triage 06/05/2023 Encounter Details Date Type Department Care Team ([facility] st Contact Info) Description 06/05/2023 Telephone [facility] [address] [place], [place] [phone] Clara Shearer MD [address] [place], [place] [phone] Nurse Triage Social History Tobacco Use Types [...] 06/05/2023 4:47 PM EST Triage call with [place] [id number] Pt reports headaches which have started 2 [...] to try this. Pt will come to [facility] tomorrow 06/06/23 to be seen by [...] Nausea as well Please contact pt at [phone] Tamazight Speaker. documented in this encounter Plan of Treatment Upcoming Encounters Date Type Department Care Team (Late st Contact Info) Description 05/08/2025 8:00 AM EDT Office Visit [facility] ADULT DENTAL [address] [place] [address] Olga, Katt [address] [place] [address] documented as of this encounter Visit Diagnoses Not on filedocumented in this encounter Additional Health Concerns Assessment Noted Time PHQ-9 Depression Total Score: 5 03/07/20 23 3:27 PM EDT documented as of this encounter Care Teams Import Coordinator Relationship Specialty Start Date End Date Clara Shearer MD [address] [place] [address] PCP - General Family Medicine 07/24/18 documented as of this encounter
--- OUTSIDE RECORDS SUMMARY | 2025-04-21 18:09 | XMS_ITS | Encounter Summary ---
Author Organization [employer] Address [address] [facility] 7t [place] [address] Care Team Providers Care Resolution Manager Name Role Phone Clara Shearer MD Primary Care Provider [phone] Reason for Visit * Reason Onset Date Comments Critical Result 04/17/2025 Encounter Details Date Type Department Care Team ([facility] st Contact Info) Description 04/17/2025 Telephone [facility] [address] [place], [place] [phone] Clara Shearer MD [address] [place], [place] [phone] Critical Result Social History Tobacco Use Types [...] - 04/17/2025 3:57 PM EDT T/C from [facility] labs regaurding a critical result for pt. INR: 5.7 Plan: Hold Warfarin today 04/17 and tomorrow 04/18 Resume 6mg Thursday 04/19 and Friday 04/20 Retest INR: Saturday 04/21 Will forward to [place] Team nurses documented in this encounter Plan of Treatment Upcoming Encounters Date Type Department Care Team (Late st Contact Info) Description 05/08/2025 8:00 AM EDT Office Visit [facility] ADULT D[facility] [address] [place] [address] Olga, Katt [address] [place] [address] documented as of this encounter Visit Diagnoses Not on filedocumented in this encounter Additional Health Concerns Assessment Noted Time PHQ-9 Depression Total Score: 17 025 1:38 PM EDT documented as of this encounter Care Teams Resolution Manager Relationship Specialty Start Date End Date Clara Shearer MD [address] [place] [address] PCP - General Family Medicine 07/24/18 documented as of this encounter
--- OUTSIDE RECORDS SUMMARY | 2025-04-21 18:09 | XMS_ITS | Encounter Summary ---
Author Organization [employer] Address [address] [facility] [address], [place] [address] Care Team Providers Care Lapidary Apprentice Name Role Phone Clara Shearer MD Primary Care Provider [phone] Reason for Referral * Consultation (Routine) - Closed Specialty Diagnoses / Procedures Referred By Contac t Referred To Contact Physical Therapy Diagnoses Right hip pain Chronic right-sided low back pain, unspecified whether sciatica present Clara Shearer MD [address] [place] [address] Phone: tel: fax: AT Physical Therapy - [address] [address] Phone: tel: fax: Referral ID Status Reason Start Date Expiration Date V isits Requested Visits Authorized [id number] Closed Specialty Services Required 11/14/2023 11/13/2024 1 1 Encounter Details Date Type Department Care Team (Late st Contact Info) Description 11/14/2023 Orders Only [facility] [address] [place], [place] [phone] Clara Shearer MD [address] [place], [place] [phone] Right hip pain (Primary Dx); Chronic right-sided [...] 05/08/2025 8:00 AM EDT Office Visit [facility] ADULT DENTAL [address] [place] [address] Katt Espinoza [address] [place] [address] Scheduled Referrals Name Type Priority Associated Diagnoses [...] PM EDT Narrative 11/25/2023 8:18 AM EDT [address] [address] XRay Report Signed Patient: Thalia Martell MR#: [id number] 2088 : 1975 Acct:[id number] Age/Sex: 48 / F ADM Date: 11/16/23 Loc: [facility] Attending Dr: Clara Shearer MD Ordering Physician: Clara Shearer MD Date of Service: 11/16/23 Procedure(s): XR thoracic spine 2V Accession Number(s): [id number] cc: Clara Shearer MD EXAMINATION: XR THORACOLUMBAR [...] in OV> 11/25/23 0815 DD/ 1549 TD/TT: Locker Room Supervisor: QUINN Procedure Note Donotuseinterpreter, Image - 11/25/[address] [address] XRay Report Signed Patient: Yoel Martell#: [id number] 2088 : 1975Acct:[id number] Age/Sex: 48 / FADM Date: 11/16/23 Loc: HO.XRAY Attending Dr: Clara Shearer MD Ordering Physician: Clara Shearer MD Date of Service: 11/16/23 Procedure(s): XR thoracic spine 2V Accession Number(s): [id number] cc: Clara Shearer MD EXAMINATION: XR THORACOLUMBAR [...] MD inOV> 11/25/23 0815 DD/ 1549 TD/TT: Locker Room Supervisor: QUINN Clara Shearer MD IMG XR [...] documented as of this encounter Care Teams Lapidary Apprentice Relationship Specialty Start Date End Date Clara Shearer MD [address] [place] [address] PCP - General Family Medicine 07/24/18 documented as of this encounter
--- OUTSIDE RECORDS SUMMARY | 2025-04-21 18:09 | XMS_ITS | Encounter Summary ---
Author Organization [facility] Address [address] [place] [address] Phone Care Team Providers Care Pole Peeler Name Role Phone Clara Shearer MD Primary Care Provider [phone] Encounter Details Date Type Department Care Team (Late st Contact Info) Description 12/04/2022 Procedure Pass [facility], Ct Scan - [address] [address] Social History Tobacco Use Types Packs/Day Years [...] documented as of this encounter Care Teams Pole Peeler Relationship Specialty Start Date End Date Clara Shearer MD [address] [place] [address] PCP - General Family Medicine 02/16/22 documented as of this encounter Additional Source Comments The information contained in this document represents components of the legal health record. It is not the complete legal health record.[facility]
--- OUTSIDE RECORDS SUMMARY | 2025-04-21 18:09 | XMS_ITS | Encounter Summary ---
Author Organization [employer] Address [address] [place] [address] 7 [place] [address] Care Team Providers Care Blasting Clay Miner Name Role Phone Clara Shearer MD Primary Care Provider [phone] Reason for Referral * Imaging (Routine) - Closed Specialty Diagnoses / Procedures Referred By Contac t Referred To Contact Radiology Diagnoses Metabolic dysfunction-associated steatotic liver disease (MASLD) Procedures US Abdomen Comp w elastography Clara Shearer MD [address] [place] [address] Phone: tel: fax: [address] Phone: tel: fax: Referral ID Status Reason Start Date Expiration Date Visits Re quested Visits Authorized [id number] Closed 11/17/2023 11/16/2024 1 1 Encounter Details Date Type Department Care Team (Late st Contact Info) Description 11/17/2023 Orders Only [facility] MEDIC[facility] [address] [place], [place] [phone] Clara Shearer MD [address] [place], [place] [phone] Metabolic dysfunction-associated steatotic liver disease (MASLD) (Primary [...] Office Visit [facility] ADULT DENTAL [address] [place] [address] Jignesh Espinozaaris [address] [place] [address] documented as of this encounter Procedures Procedure Name Priority Date/Time Associated Diagnosis Comments US ABDOMEN COMPLETE WITH ELASTOGRAPHY Routine 12/05/2023 9:26 AM EDT Metabolic dysfunction-associa ebony steatotic liver disease (MASLD) documented in this encounter Results * US Abdomen Comp w elastography (12/05/2023 9:26 AM EDT) Anatomical Region Laterality Modality Abdomen Ultrasound 12/05/2023 9:26 AM EDT Narrative 12/12/2023 9:41 AM EDT [place] [address] Ultrasound Report Signed Patient: Thalia Martell MR#: [id number] : 1975 Acct:[id number] Age/Sex: 48 / F ADM Date: 12/05/23 Loc: HO.US Attending Dr: Clara Shearer MD Ordering Physician: Clara Shearer MD Date of Service: 12/05/23 Procedure(s): US abdomen comp w elastography Accession Number(s): [id number] cc: Clara Shearer MD EXAMINATION: US COMPLETE [...] MD in OV> 12/12/2337 DD/ 5 TD/TT: Supervisor Shuttle Veneering: SS Procedure Note Donotuseinterpreter, Image - 12/12/[address] [address] Ultrasound Report Signed Patient: Yoel Martell#: [id number] : 1975Acct:[id number] Age/Sex: 48 / FADM Date: 12/05/23 Loc: HO.US Attending Dr: Clara Shearer MD Ordering Physician: Clara Shearer MD Date of Service: 12/05/23 Procedure(s): US abdomen comp w elastography Accession Number(s): [id number] cc: Clara Shearer MD EXAMINATION: US COMPLETE [...] MD in OV> 12/12/2337 DD/ 5 TD/TT: Supervisor Shuttle Veneering: SS us Clara Shearer MD IMG US PROCEDURES Final Result documented in this encounter Visit Diagnoses Diagnosis Metabolic dysfunction-associated steatotic liver disease (MASLD)- Primary documented in this encounter Additional Health Concerns Assessment Noted Time PHQ-9 Depression Total Score: 0 10/17/19 24 3:45 PM EDT documented as of this encounter Care Teams Blasting Clay Miner Relationship Specialty Start Date End Date Clara Shearer MD [address] [place] [address] PCP - General Family Medicine 07/24/18 documented as of this encounter
--- OUTSIDE RECORDS SUMMARY | 2025-04-21 18:09 | XMS_ITS | Clinical Summary ---
Author Organization [facility] Address [address] [place] [address] Care Team Providers Care Corporate Controller Name Role Phone Manfred Clara Primary Care Provider [phone] Allergies No known active allergies Medications aspirin [...] to Health Maintenance Results * Due to [facility] law, this organization might not be sharing negative HIV tests. * Pap (12/17/2020 2:37 PM EDT) Specimen Adequacy Satisfactory for evaluation [facility] MANUAL 1 5:02 PM EDT [facility] ANATOMIC PATHOLOGY LABORATORY Pathologist Cytology Interpretation Negative for intraepithelial lesion or malignancy. [facility] MANUAL 1 5:02 PM EDT [facility] ANATOMIC PATHOLOG[facility] LABORATORY at 1702 EDT Comment:This is the result o f a morphological screening test with an inherent possibility of a false negative interpretation. Manager Commercial Real Estate Statement This Pap test was examined by the [facility] [facility] System, [employer], [place], [place]. This Pap test was examined in accordance with the [facility] Cytopathology Laboratory written policy, which incorporates all CLIA mandates. Screening guidelines can be found in Am J Clin Pathol 2012;137:516-542. We endorse the practice guidelines developed by ASCCP and published in the Journal Lower Genital Tract Disease 17(5):S1-S27 (2013). [place] MANUAL 1 5:02 PM EDT [employer] [facility] ANATOMIC PATHOLOGY LABORATORY Clinical History Hematometra ASS MANUAL 1 5:02 PM EDT [facility]ENTERPipedrive[facility] [employer] [facility] ANATOMIC PATHOLOGY LABORATORY Resulting Agency Case was signed out at [facility], Department of Pathology, [employer] 3 CLIA [id number] [facility] MANUAL 1 5:02 PM EDT [facility] [employer] [facility] ANATOMIC PATHOLOGY LABORATORY Report Header Gynecologic Cytology Report Case: [id number] Authorizing Provider: Susan Girard Collected: 12/17/2020 1267 Ordering Location: [facility] Received: 12/17/2020 1626 [facility] Obstetrics and Gynecology First Screen: Sissy Dooley Specimen: Screening ThinPrep Pap, Cervix/Endocervix 5:02 PM EDT [employer] [facility] ANATOMIC [facility] LABORAT[facility] Brushing Cervix uteri structure / Unknown Non-Blood Collection / Unknown 12/17/2020 2:37 PM EDT 12/17/2020 4:26 PM EDT us Susan Girard SEAT TRIMMER LAB PATHOLOGY/CYTOLOGY ORDERABL ES Final Result [employer] [facility] [address] [place] [address], from Last 3 Months or Most Recently Relevant to Health Maintenance [facility] [address] [address] [place] [address] Care Teams Corporate Controller Relationship Specialty Start Date End Date Clara Shearer [address] [place] [address] PCP - General Family Medicine 05/26/20
--- OUTSIDE RECORDS SUMMARY | 2025-04-21 18:09 | XMS_ITS | Encounter Summary ---
Author Organization [facility] Address [address] [place] [address] Phone Care Team Providers Care Search Engine Marketing Manager Name Role Phone Unknown, Unknown Primary Care Provider Clara Thompson MD Primary Care Provider [phone] Clara Shearer MD Primary Care Provider [phone] Encounter Details Date Type Department Care Team (Late st Contact Info) Description 02/24/2018 Procedure Pass [facility], Ct Scan - [facility] [address] [place] [address] Social History Tobacco Use Types Packs/Day Years [...] documented as of this encounter Care Teams Search Engine Marketing Manager Relationship Specialty Start Date End Date Unknown, Unknown, PCP - General 02/24/18 11/09/20 Clara Shearer MD [address] [place] [address] PCP - General Family Medicine 11/10/20 02/15/22 Clara Shearer MD [address] [place] [address] PCP - General Family Medicine 02/16/22 documented as of this encounter Additional Source Comments The information contained in this document represents components of the legal health record. It is not the complete legal health record.[facility]
== END 2025-04-21 16:35 | disposition home or self-care (01) ==
LOC: HO.ACS 16:03
PROVIDERS: PCP Family Medicine; Visit Provider Internal Medicine Medical Oncology
DX: Z79.01 Long term (current) use of anticoagulants (principal)

== ENCOUNTER → 2025-04-21 16:03 | Outpatient (BNVA) | payer OTHER, SELFPAY | PROVIDERS: PCP Family Medicine; Visit Provider Internal Medicine Medical Oncology | DX: Z95.2 Presence of prosthetic heart valve (principal); Z79.01 Long term (current) use of anticoagulants; Z51.81 Encounter for therapeutic drug level monitoring | CPT/HCPCS: 85610; 99211 ==

== ENCOUNTER 2025-05-16 15:25 | Outpatient (AMB) | payer OTHER, SELFPAY ==
--- OUTSIDE RECORDS SUMMARY | 2025-05-13 | XMS_ITS | Encounter Summary ---
Author Organization [facility] Address [address] [place] [address] Phone Care Team Providers Care Boom Supervisor Name Role Phone Clara Shearer MD Primary Care Provider [phone] Reason for Visit * Auth/Cert (Routine) Specialty Diagnoses / Procedures Referred By Ron t Referred To Contact Referral ID Status Reason Start Date Expiration Date Visits Re quested Visits Authorized [id number] 1 1 Encounter Details Date Type Department Care Team (Late st Contact Info) Description 05/13/2025 Home Care Visit [facility] [address] [place] [phone] Joseph Cates [address] [place] [address] [email or web address] PSYCH COORDINATOR HOME VISIT Social History Tobacco Use Types Packs/Day Years Used Date Smoking Tobacco: Never Smokeless Tobacco: Never Alcohol Use Standard Drinks/Week Comments No 0 (1 standard drink = 0.6 oz pur e alcohol) Home Health Assessment: Transportation Answer Date Recorded Lack of Transportation (Medical) No 05/10/2025 Lack of Transportation (Non-Medical) No 05/10/2025 Patient Unable or Declines to Respond No 05/10/2025 Education Answer Date Recorded Are you interested in more education? Not on nimisha e 11/18/2022 Are you concerned about learning? Not on file 11/18/2022 No 11/18/2022 No 11/18/2022 Food Answer Date Recorded Within the past 6 months we worried whether our food would run out before we got money to buy more. Never True 05/05/2025 Within the past 6 months the food we bought just didn't last and we didn't have enough money to get more. Never True Residential Stability Answer Date Recor ded What is your housing situation today? I have naye martinez 05/05/2025 How many times have you move d in the past 12 months? Zero (I did not move) 05/05/2025 Paying for Meds Answer Date Recorded Do you have trouble paying for medicines? No 05/05/2025 Paying Utility Bills Answer Date Record ed Do you have trouble paying your heating or elect ricity bill? No 05/05/2025 Transportation Answer Date Recorded Has the lack of transportati on kept you from medical appointments or from getting medications? No 05/05/2025 Digital Access Answer Date Recorded No 05/05/2025 Yes 05/05/2025 Do you have reliable internet access at home? Ye s 05/05/2025 Do you have a device (e.g., phone, tablet, computer) with a working camera? Yes 05/05/2025 Intimate Partner Violence Answer Date R ecorded Are you denied basic needs s uch as food, clothing, or medical care? No 05/04/2025 In the past 12 months have y ou been in a relationship with a person who hurts, threatens, or tries to control you? No 05/04/2025 Are you denied basic needs s uch as food, clothing, or medical care? No 05/04/2025 In the past 12 months have y ou been in a relationship with a person who hurts, threatens, or tries to control you? No 05/04/2025 Comments No Sex and Gender Information Value Date Recorded Sex Assigned at Female 11/09/2020 8:05 PM EDT Legal Sex Female 9:26 PM EDT Gender Identity Female 11/09/2020 8:05 PM EDT Sexual Orientation Straight 11/09/2020 8: 05 PM EDT documented as of this encounter Last Filed Vital Signs Vital Sign Reading Time Taken Comments Blood Pressure 98/67 05/13/2025 12:49 PM EDT Pulse 78 05/13/2025 12:49 PM EDT Temperature 36.4 C (97.5 F) 05/13/2025 12:49 PM EDT Respiratory Rate - - Oxygen Saturation 97% 05/13/2025 12:49 PM EDT Inhaled Oxygen Concentration - - Weight - - Height - - Body Mass Index - - documented in this encounter Plan of Treatment Upcoming Encounters Date Type Department Care Team (Late st Contact Info) Description 05/20/2025 1:30 AM EDT Home Care Visit [facility] [address] [place] [address] Darlin Car RN [address] [place] [address] 05/23/2025 3:00 AM EDT Home Care Visit [facility] [address] [place] [address] Darlin Car RN [address] [place] [address] 05/29/2025 2:00 AM EST Home Care Visit [facility] [address] [place], [place] [phone] Darlin Car RN [address] [place] [address] 06/02/2025 1:00 PM EST [facility] Financial Services Professional Oncology [address] [place] [address], [address] [place] [address] Jaja Huber MD [address] [place] [phone] [email or web address] 06/05/2025 1:30 AM EST Home [facility] [address] [place] [address] Darlin Car RN [address] [place] [address] 06/12/2025 2:00 AM EST Home Care Visit [facility] [address] [place] [phone] Darlin Car RN [address] [place] [address] 06/19/2025 1:00 AM EST [facility] [address] [place], [place] [phone] Darlin Car RN [address] [place] [address] 06/26/2025 1:00 AM EST [facility] [address] [place], [place] [phone] Darlin Car RN [address] [place] [address] 07/04/2025 12:30 AM EST Appointment [facility] [address] [place] [address] Darlin Car RN [address] [place] [address] documented as of this encounter Visit Diagnoses Not on filedocumented in this encounter Home Health Visit - Care Plan Visit Details Visit Type -PSYCH COORDINATOR HOME VISIT Discipline -Fpc Problems Problem Description Start Date Status Goals Interve ntions HH - Standard of Care Disciplines: All Active Home Health Disciplines 05/10/2025 Active 1 goal linked to scheduled/document ed intervention 2 goal interventions scheduled/document ed in this visit HH - Medication Management Disciplines: All Active Home Health Disciplines 05/10/2025 Active 1 goal linked to scheduled/document ed intervention 2 goal interventions scheduled/document ed in this visit HH - Focus of Care and Teaching Disciplines: All Active Home Health Disciplines w/RD 05/10/2025 Active 1 goal linked to scheduled/document ed intervention 1 goal intervention scheduled/document ed in this visit HH - Emergency Planning - Knowledge of Disciplines: All Active Home Health Disciplines 05/10/2025 Active 1 goal linked to scheduled/document ed intervention 2 goal interventions scheduled/document ed in this visit HH - Wound Disciplines: All Active Home Health Disciplines 05/10/2025 Active 1 goal linked to scheduled/document ed intervention 1 goal intervention scheduled/document ed in this visit Goals Goal Associated Problem Outcome Goal Met? Visit Notes HH - Achieve care management for a safe to home/community discharge from homecare HH - Standard of Care No HH - Safe medication management, avoid unnecessary harm related to medication errors and/or interactions HH - Medication Management No HH - Communication and collaboration to achieve patient goals HH - Focus of Care and Teaching No HH - Knowledge of options for managing care in the event of an emergency related situation. HH - Emergency Planning - Knowledge of No HH - Demonstrate/verbalize wound care management, wound/lesion will be free from complications HH - Wound No Interventions Intervention Associated Problem/Goal Status Variance Visit Notes HH - Assess vital signs, pulse oximetry, pain, and as indicated, orthostatic vital signs Description: use agency-specific parameters Problem: - Standard of Care Goal:HH - Achieve care management for a safe to home/community discharge from homecare Completed - Assess skin integrity Problem: - Standard of Care Goal:HH - Achieve care management for a safe to home/community discharge from homecare Completed - I/E medication management: administration, purpose, dosages, preparation, setup, scheduling, side effects, food/drug interactions, and potential complications as indicated Description: Update patient's copy of medication list as needed. Problem: - Medication Management Goal:HH - Safe medication management, avoid unnecessary harm related to medication errors and/or interactions Completed - Complete medication review every visit and medication reconciliation as indicated. Pharmacy information: Description: [facility] Problem: - Medication Management Goal: - Safe medication management, avoid unnecessary harm related to medication errors and/or interactions Completed - Focus of care, teaching completed and plan for next visit Problem: - Focus of Care and Teaching Goal:HH - Communication and collaboration to achieve patient goals Completed Primary Clinical Focus this Visit & Instruction Provided: Patient alert and oriented daughter present during visit for interpretation no SOB or resp distress noted c/o non productive coughing at night , c/o 4/10 to right lower abd pain at this. No c/o nausea or vomiting. Incision sites to abd x 4, steristrips intact. no drainage/s/s infection continues the use of abdominal binder. INR 3.5. C/o hematuria, no c/o burning or pain. Adequate po intake. Encourage to increase more greens in diet. Spoke with [facility]; Stop Lovenox, Give 3mg coumadin today 6mg Monday + repeat INR Wednesday 05/16. Spoke with surgeons office and update. Will continue to monitor and maintain safety. Instruction Provided to: patient Response to Instruction/Teaching: Is partially able to teach back topics as evidenced by Verbal recall. Plan for Next Visit Specific Focus & Education Needed: INR, wound care New Orders: none Updated Discharge Plan: When INR therapeutic and wounds have healed. HH - I/E management of care in an urgent or emergency (ER) situation: When to call your Home Care Team/911, ER plans, supplies, evacuation, when to contact local ER officials and how to stay informed Problem:HH - Emergency Planning - Knowledge of Goal:HH - Knowledge of options for managing care in the event of an emergency related situation. Completed HH - Emergency planning assessment: the emergency plan, supplies needed, emergency contact numbers and an evacuation plan were reviewed Description: Patient and Caregiver is/are knowledgeable of emergency plans. Problem:HH - Emergency Planning - Knowledge of Goal:HH - Knowledge of options for managing care in the event of an emergency related situation. Completed HH - Assess wounds/lesions/coffey Description: LOCATION: lap sites x 4 to abdomen Problem:HH - Wound Goal:HH - Demonstrate/verbalize wound care management, wound/lesion will be free from complications Completed documented in this encounter Care Teams Boom Supervisor Relationship Specialty Start Date End Date Clara Shearer MD [address] [place] [address] PCP - General Family Medicine 02/16/22 documented as of this encounter Additional Source Comments The information contained in this document represents components of the legal health record. It is not the complete legal health record.[facility]
--- OUTSIDE RECORDS SUMMARY | 2025-05-16 05:00 | XMS_ITS | Encounter Summary ---
Author Organization [facility] Address [address] [place] [address] Phone Care Team Providers Care Die Lay Out Worker Name Role Phone Clara Shearer MD Primary Care Provider [phone] Reason for Visit * Auth/Cert (Routine) Specialty Diagnoses / Procedures Referred By Ron t Referred To Contact Referral ID Status Reason Start Date Expiration Date Visits Re quested Visits Authorized [id number] 1 1 Encounter Details Date Type Department Care Team (Late st Contact Info) Description 05/16/2025 5:00 AM EDT Home [facility] [address] [place] [address] Joseph Cates [address] [place] [address] GROUNDWATER PROGRAMS DIRECTOR HOME VISIT Social History Tobacco Use Types [...] 05/20/2025 1:30 AM EDT Home [facility] Visit [facility] [address] [place] [address] Darlin Car RN [address] [place] [phone] [email or web address] 05/23/2025 3:00 AM EDT Home [facility] [address] [place] [address] Darlin Car RN [address] [place] [phone] [email or web address] 05/29/2025 2:00 AM EST Home Care Visit [facility] [address] [place] [address] Darlin Car RN [address] [place] [phone] [email or web address] 06/02/2025 1:00 PM EST Follow-Up [facility] [employer] [facility] [facility] [address] [place] [address]-, [address] [place] [address] Jaja Huber MD [address] [place] [address] [email or web address] 06/05/2025 1:30 AM EST Home Care Visit [facility] [address] [place], [place] [phone] Darlin Car RN [address] [place] [phone] [email or web address] 06/12/2025 2:00 AM EST Home Care Visit [facility] [address] [place] [address] Darlin Car RN [address] [place] [phone] [email or web address] 06/19/2025 1:00 AM EST Home Care Visit [facility] [address] [place], [place] [phone] Darlin Car RN [address] [place] [address] 06/26/2025 1:00 AM EST Home Care Visit [facility] [address] [place], [place] [phone] Darlin Car RN [address] [place] [address] [email or web address] 07/04/2025 12:30 AM EST Appointment [facility] [address] [place], [place] [phone] Darlin Car RN [address] [place] [phone] documented as of this encounter Visit Diagnoses Not on filedocumented in this encounter Home Health Visit - Care Plan Visit Details Visit Type -GROUNDWATER PROGRAMS DIRECTOR HOME VISIT Discipline -Group Home Problems Problem Description Start Date Status Goals [...] scheduled/document ed in this visit HH - Lab Disciplines: All Active Home Health Disciplines, Group Home 05/10/2025 Active - 1 problem intervention scheduled/document ed in this visit HH [...] and/or interactions HH - Medication Management No - Communication and collaboration to achieve patient goals HH - Focus of Care and Teaching No HH - Knowledge of options for managing care in the event of an emergency related situation. - Emergency Planning - Knowledge of No HH - Demonstrate/verbalize wound care management, wound/lesion will be free from complications HH - Wound No Interventions Intervention Associated Problem/Goal Status Variance Visit Notes HH - Assess vital signs, pulse oximetry, pain, and as indicated, orthostatic vital signs Description: use agency-specific parameters Problem: - Standard of Care Goal: - Achieve care management for a safe to home/community discharge from homecare Scheduled - Assess skin integrity Problem: - Standard of Care Goal: - Achieve care management for a safe to home/community discharge from homecare Scheduled - I/E medication management: administration, purpose, dosages, preparation, setup, scheduling, side effects, food/drug interactions, and potential complications as indicated Description: Update patient's copy of medication list as needed. Problem: - Medication Management Goal: - Safe medication management, avoid unnecessary harm related to medication errors and/or interactions Scheduled - Complete medication review every visit and medication reconciliation as indicated. Pharmacy information: Description: [facility] Problem: - Medication Management Goal: - Safe medication management, avoid unnecessary harm related to medication errors and/or interactions Scheduled - Focus of care, teaching completed and plan for next visit Problem: - Focus of Care and Teaching Goal: - Communication and collaboration to achieve patient goals Scheduled - I/E management of care in an urgent or emergency (ER) situation: When to call your Home Care Team/911, ER plans, supplies, evacuation, when to contact local ER officials and how to stay informed Problem: - Emergency Planning - Knowledge of Goal: - Knowledge of options for managing care in the event of an emergency related situation. Scheduled - Emergency planning assessment: the emergency plan, supplies needed, emergency contact numbers and an evacuation plan were reviewed Description: Patient and Caregiver is/are knowledgeable of emergency plans. Problem: - Emergency Planning - Knowledge of Goal: - Knowledge of options for managing care in the event of an emergency related situation. Scheduled [facility] Lab work: Collect Description: Test date: 05/16 Test: Urinalysis, Urine Culture Ordering provider/resutls to: Jaja Huber DX: Hematuria Problem:HH - Lab Scheduled HH - Assess wounds/lesions/coffey Description: LOCATION: lap sites x 4 to abdomen Problem:HH - Wound Goal:HH - Demonstrate/verbalize wound care management, wound/lesion will be free from complications Scheduled documented in this encounter Care Teams Die Lay Out Worker Relationship Specialty Start Date End Date Clara Shearer MD [address] [place] [phone] PCP - General Family Medicine 02/16/22 documented as of this encounter Additional Source Comments The information contained in this document represents components of the legal health record. It is not the complete legal health record.[facility]
--- NOTE | 2025-05-16 15:34 | MHC.OFFVISCO ---
Intake Intake Visit Reasons: Anticoagulation Allergies peach Allergy (Severe, Verified 05/16/25 15:26) Angioedema Medication List - Last Reconciled 05/16/25 by Ruthy Newby RN acetaminophen mg PO ascorbic acid (vitamin C) 500 mg PO BID aspirin (Adult Aspirin Regimen) 81 mg PO DAILY 90 days cetirizine 10 mg PO DAILY cholecalciferol (vitamin D3) 50 mcg PO DAILY cyclobenzaprine 10 mg PO TID PRN enoxaparin mg See Protocol subcut hydrocortisone 2.5% (Proctosol HC) 1 appl TX BID-QID PRN multivitamin (One Daily Multivitamin tablet) 1 tab PO DAILY olopatadine 0.2% (Pataday Once Daily Relief) 1 drp ophthalmic (eye) DAILY PRN 30 days MDD as needed omeprazole 20 mg PO DAILY PRN oxycodone 5 mg PO TID PRN polyethylene glycol 3350 17 grams PO DAILY sennosides (senna) 17.2 mg PO DAILY sumatriptan succinate 100 mg PO .prn MDD 200mg tolterodine ER 4 mg PO DAILY PRN topiramate 50 mg PO DAILY PRN warfarin See Protocol orally 6mg daily; Nursing Note INR received from [facility] nurse Nke[place], INR today is 3.8, T/c to nurse who saw patient T/c to patient daughter Gale A nurse per pt request Patient status: doing better - no further vaginal bleeding, able to walk around, appetite better, able to move bowels, urination is better Denies any signs and symptoms of any unusual bruising, bleeding or clotting Medication or supplements: taking tylenol prn Diet: good - enc greens today and extra weekly while taking tylenol Activity: as tolerated per md orders - walking Dose: decrease weekly dose 3mg x 2 days/ 6mg x 5 days Dosing and diet instructions given with next retest date of 05/20/25 Nurse and patient daughter verbalizes understanding of instructions given with accurate read back Anti-Coag Initial Assessment Social Hx Patient Tobacco Use Status: Never used Tobacco alcohol intake: never Alcohol intake frequency: does not drink Coding Level of Care Code Est Patient Level 1 Diagnoses Current use of anticoagulant therapy Z79.01 Results AMB INR Fingerstick AMB INR Fingerstick 3.8 Last Edit by Ruthy Newby RN on 05/16/25 15:30 Assessment & Plan Assessment & Plan (1) Current use of anticoagulant therapy: Comment: Continue Coumadin. Code(s): Z79.01 - custodial (current) use of anticoagulants Category: Medical
--- OUTSIDE RECORDS SUMMARY | 2025-05-16 16:53 | XMS_ITS | Encounter Summary ---
Author Organization [employer] Address [address] [facility] 7[address] [place] [address] Care Team Providers Care Vamp Marker Name Role Phone Clara Shearer MD Primary Care Provider [phone] Encounter Details Date Type Department Care Team ([facility] st Contact Info) Description 01/22/2024 Orders Only [facility] MED[facility] [address] [place], [place] [phone] Clara Shearer MD [address] [place], [place] [phone] History of mechanical aortic valve replacement Social [...] Care Team (Late st Contact Info) Description 06/09/2025 2:15 PM EST Office Visit [facility] ADULT DENTAL [address] [place] [address] Katt Espinoza [address] [place] [address] documented as of this encounter Visit Diagnoses Diagnosis History of mechanical aortic valve replacement documented in this encounter Additional Health Concerns Assessment Noted Time PHQ-9 Depression Total Score: 0 10/17/19 24 3:45 PM EDT documented as of this encounter Care Teams Vamp Marker Relationship Specialty Start Date End Date Clara Shearer MD [address] [place] [address] PCP - General Family Medicine 07/24/18 documented as of this encounter
--- OUTSIDE RECORDS SUMMARY | 2025-05-16 16:53 | XMS_ITS | Encounter Summary ---
Author Organization [employer] Address [address] [facility] [address] [place] [address] Care Team Providers Care Airport Maintenance Chief Name Role Phone Clara Shearer MD Primary Care Provider [phone] Reason for Visit * Reason Comments Transition Of Care (Tcm) HDF- unschedule d (surgery) Encounter Details Date Type Department Care Team ([facility] st Contact Info) Description 05/12/2025 Patient Outreach [facility] MEDICINE [address] [place], [place] [phone] Clara Shearer MD [address] [place] [address] Transition Of Care (Tcm) (HDF- unscheduled (surgery)) Social History Tobacco Use Types Packs/Day Years [...] as of this encounter Miscellaneous Notes * Significant Event - Noah Lainez - 05/12/2025 9:43 AM EDT 05/12/25 0936 Hospital Discharges and Admission for [facility] Type of Visit Hospital Admission Date of Admission/Visit 05/04/25 Date of Discharge 05/09/25 Facility [facility] Diagnosis Pelvic mass c/f ovarian torsion 9.8 cm pelvic mass with blood in pelvis left abdominal pain Disposition Discharged Home Follow-Up Actions Follow-Up Needed Specialist appointment Follow-Up Outcome Spoke to Patient Initial Contact Date 05/12/25 MAHIN Iqbal placed outbound call to patient for HDF outreach. Patient's name and were confirmed.Patient educated on the importance of follow up with Surgeon following inpatient admission. Patient provided with education on contacting the Health Center with any questions or concerns prior to the scheduled appointment. Patient educated on extended clinic hours on Mondays and Wednesdays, and Walk-In Urgent Care Located in [facility] of [facility]. Patient provided with after-hours line for [facility], , which offer night time triage service and option to transfer to crm functional analyst provider if needed. CC will request Discharge summary to be scanned into chart. documented in this encounter Plan of Treatment Upcoming Encounters Date Type Department Care Team (Late st Contact Info) Description 06/09/2025 2:15 PM EST Office Visit [facility] ADULT DENTAL [address] [place] [address] Katt Espinoza [address] [place] [address] documented as of this encounter Visit Diagnoses Not on filedocumented in this encounter Additional Health Concerns Assessment Noted Time PHQ-9 Depression Total Score: 17 025 1:38 PM EDT documented as of this encounter Care Teams Airport Maintenance Chief Relationship Specialty Start Date End Date Clara Shearer MD [address] [place] [address] PCP - General Family Medicine 07/24/18 documented as of this encounter
--- OUTSIDE RECORDS SUMMARY | 2025-05-16 16:54 | XMS_ITS | Encounter Summary ---
Author Organization [employer] Address [address] [place] [address] 7t [place] [address] Care Team Providers Care Car Salesperson Name Role Phone Clara Shearer MD Primary Care Provider [phone] Reason for Referral * Imaging (Routine) - Closed Specialty Diagnoses / Procedures Referred By Contac t Referred To Contact Radiology Diagnoses Hematuria, unspecified type Procedures US RENAL BI Clara Shearer MD [address] [place] [address] Phone: tel: fax: [address] Phone: tel: fax: Referral ID Status Reason Start Date Expiration Date Visits Re quested Visits Authorized [id number] Closed 02/21/2025 02/21/2026 1 1 Encounter Details Date Type Department Care Team (Late st Contact Info) Description 02/21/2025 Orders Only [facility] MEDICINE [address] [place], [place] [phone] Clara Shearer MD [address] [place], [place] [phone] Hematuria, unspecified type (Primary Dx) Social History [...] Description 06/09/2025 2:15 PM EST Office Visit [facility] ADULT DENTAL [address] [place] [address] Jignesh Espinozaaris [address] [place] [address] Scheduled Orders Name Type Priority Associated Diagnoses [...] AM EDT Narrative 04/11/2025 9:02 AM EDT [address] [address] Ultrasound Report Signed Patient: Thalia Martell MR#: [id number] : 1975 Acct:[id number] Age/Sex: 50 / F ADM Date: 04/10/25 Loc: HO.US Attending Dr: Clara Shearer MD Ordering Physician: Clara Shearer MD Date of Service: 04/10/25 Procedure(s): US retroperitoneal comp Accession Number(s): [id number] cc: Clara Shearer MD Reason for Exam: hematuria CLINICAL HISTORY: hematuria US Renal Comparison: None provided Findings: Right kidney normal size and echotexture, 10.9 cm length. Left kidney normal size and echotexture, 12.7 cm length. The coiler operator demonstrates mild pelvic fullness bilaterally. It is [...] in OV> 04/11/25901 DD/ 0 TD/TT: 04/11/25900 Jewel Hole Cornerer: Procedure Note Donotuseinterpreter, Image - 04/11/[address] [address] Ultrasound Report Signed Patient: Antonina MartellR#: [id number] : 1975Acct:[id number] Age/Sex: 50 / FADM Date: 04/10/25 Loc: HO.US Attending Dr: Clara Shearer MD Ordering Physician: Clara Shearer MD Date of Service: 04/10/25 Procedure(s): US retroperitoneal comp Accession Number(s): [id number] cc: Clara Shearer MD Reason for Exam: hematuria CLINICAL HISTORY: hematuria US Renal Comparison: None provided Findings: Right kidney normal size and echotexture, 10.9 cm length. Left kidney normal size and echotexture, 12.7 cm length. The coiler operator demonstrates mild pelvic fullness bilaterally. It is [...] in OV> 04/11/25901 DD/ 0 TD/TT: 04/11/25900 Jewel Hole Cornerer: Clara Shearer MD IMG US PROCEDURES Edited Result - Final documented in this encounter Visit Diagnoses Diagnosis Hematuria, unspecified type- Primary documented in this encounter Additional Health Concerns Assessment Noted Time PHQ-9 Depression Total Score: 17 025 1:38 PM EDT documented as of this encounter Care Teams Car Salesperson Relationship Specialty Start Date End Date Clara Shearer MD [address] [place] [address] PCP - General Family Medicine 07/24/18 documented as of this encounter
--- OUTSIDE RECORDS SUMMARY | 2025-05-16 16:54 | XMS_ITS | Encounter Summary ---
Author Organization [facility] Address [address] [place] [address] Phone Care Team Providers Care Employee Development Specialist Name Role Phone Clara Shearer MD Primary Care Provider [phone] Encounter Details Date Type Department Care Team (Late st Contact Info) Description 05/04/2025 Procedure Pass [facility], Ct Scan - [address] [address] Social History Tobacco Use Types Packs/Day Years [...] housing situation today? I have naye michelle 05/05/2025 How many times have you move [...] Date of Assessment Author No Risk Indicated 05/05/2025 4:00 PM EDT Kacy Cardoza RN * [place] Suicide Severity Rating Scale (Screener/Recent Self-Report) Question Answer Date of Assessment Author 1. Wish to be (Past 1 Month) No 025 4:00 PM EDT Kacy Rivas, EVY 2. Non-Specific Active Suici layton Thoughts (Past 1 Month) No 05/05/2025 4:00 PM EDT Corie Rivas, EVY 6. Suicidal Behavior (Lifetime) No 4:00 PM EDT Kacy Rivas, RN documented as of this encounter Plan of Treatment Upcoming Encounters Date Type Department Care Team (Late st Contact Info) Description 05/20/2025 1:30 AM EDT Home [facility] [address] [place] [address] Darlin Car RN [address] [place] [phone] 05/23/2025 3:00 AM EDT Home Care Visit [facility] [address] [place] [address] Darlin Car RN [address] [place] [address] 05/29/2025 2:00 AM EST Home Care Visit [facility] [address] [place] [phone] Darlin Car RN [address] [place] [phone] 06/02/2025 1:00 PM EST Follow-Up [facility] Identification And Records Commander [facility] [address] [place] [address], [address] [place] [address] Jaja Huber MD [address] [place] [phone] [email or web address] 06/05/2025 1:30 AM EST Home Care Visit [facility] [address] [place], [place] [phone] Darlin Car RN [address] [place] [phone] 06/12/2025 2:00 AM EST Home Care Visit [facility] [address] [place] [address] Darlin Car RN [address] [place] [address] 06/19/2025 1:00 AM EST Home [facility] [address] [place] [address] Darlin Car RN [address] [place] [address] 06/26/2025 1:00 AM EST Home Care Visit [facility] [address] [place], [place] [phone] Darlin Car RN [address] [place] [address] 07/04/2025 12:30 AM EST Appointment [facility] [address] [place] [address] Darlin Car RN [address] [place] [address] [email or web address] documented as of this encounter Visit Diagnoses Not on filedocumented in this encounter Care Teams Employee Development Specialist Relationship Specialty Start Date End Date Clara Shearer MD [address] [place] [address] PCP - General Family Medicine 02/16/22 documented as of this encounter Additional Source Comments The information contained in this document represents components of the legal health record. It is not the complete legal health record.[facility]
--- OUTSIDE RECORDS SUMMARY | 2025-05-16 16:54 | XMS_ITS | Encounter Summary ---
Author Organization [facility] Address [address] [place] [address] Phone Care Team Providers Care Sales Lead Generator Name Role Phone Clara Shearer MD Primary Care Provider Encounter Details Date Type Department Care Team (Late st Contact Info) Description 06/19/2023 Procedure Pass [facility], Ct Scan - [address] [address] Social History Tobacco Use Types Packs/Day Years [...] 06/19/2023 8:16 AM Wandy Shelby RN * [place] Suicide Severity Rating Scale (Screener/Recent Self-Report) Question [...] 1:30 AM EDT [facility] [address] [place] [address] Darlin Car RN [address] [place] [phone] 05/23/2025 3:00 AM EDT Home Care Visit [facility] [address] [place], [place] [phone] Darlin Car RN [address] [place] [phone] 05/29/2025 2:00 AM EST Home Care Visit [facility] [address] [place] [address] Darlin Car RN [address] [place] [phone] 06/02/2025 1:00 PM EST Follow-Up [facility] Machine Sand Mixer Oncology [address] [place] [address] ASB1-3, [address] [place] [address] Jaja Huber MD [address] [place] [address], [facility] [place] [address] [email or web address] 06/05/2025 1:30 AM EST Home Care Visit [facility] [address] [place] [phone] Darlin Car RN [address] [place] [phone] 06/12/2025 2:00 AM EST Home Care Visit [facility] [address] [place] [phone] Darlin Car RN [address] [place] [address] 06/19/2025 1:00 AM EST Home Care Visit [facility] [address] [place] [phone] Darlin Car RN [address] [place] [address] 06/26/2025 1:00 AM EST Home Care Visit [facility] [address] [place] [address] Darlin Car RN [address] [place] [phone] 07/04/2025 12:30 AM EST Appointment [facility] [address] [place] [phone] Darlin Car RN [address] [place] [phone] documented as of this encounter Visit Diagnoses Not on filedocumented in this encounter Additional Health Concerns Infection Onset Date Last Indicated Resolved Time CoV-Risk 06/19/2023 06/19/2023 06/30/2023 1:24 AM EST CoV-Risk 02/22/2025 02/22/2025 03/05/2025 1:21 AM EDT documented as of this encounter Care Teams Sales Lead Generator Relationship Specialty Start Date End Date Clara Shearer MD [address] [place] [phone] PCP - General Family Medicine 02/16/22 documented as of this encounter Additional Source Comments The information contained in this document represents components of the legal health record. It is not the complete legal health record.[facility]
--- OUTSIDE RECORDS SUMMARY | 2025-05-16 16:54 | XMS_ITS | Encounter Summary ---
Author Organization [facility] Address [address] [place] [address] Phone Care Team Providers Care Chair Inspector And Leveler Name Role Phone Unknown, Unknown Primary Care Provider Clara Thompson MD Primary Care Provider [phone] Clara Shearer MD Primary Care Provider [phone] Encounter Details Date Type Department Care Team (Late st Contact Info) Description 11/09/2020 Procedure Pass [facility], Ct Scan - [facility] 30 [place] [address] Social History Tobacco Use Types Packs/Day Years [...] 8:03 PM EDT Marysol Hurt RN * [place] Suicide Severity Rating Scale (Screener/Recent Self-Report) Question Answer Date of Assessment Author 1. Wish to be (Past 1 Month) No 11/09/2020 8:03 PM EDT Marysol Hurt RN 2. Non-Specific Active Suicidal Thoughts (Past 1 Month) No 11/09/2020 8:03 PM EDT Blu, Marysol oh RN 6. Suicidal Behavior (Lifetime) No 11/09/2020 8:03 PM EDT Blu, Marysol oh RN documented as of this encounter Plan of Treatment Upcoming Encounters Date Type Department Care Team (Late st Contact Info) Description 05/20/2025 1:30 AM EDT Home Care Visit [facility] [address] [place] [phone] Darlin Car RN [address] [place] [phone] [email or web address] 05/23/2025 3:00 AM EDT Home Care Visit [facility] [address] [place] [phone] Darlin Car RN [address] [place] [phone] [email or web address] 05/29/2025 2:00 AM EST Home Care Visit [facility] [address] [place] [address] Darlin Car RN [address] [place] [address] [email or web address] 06/02/2025 1:00 PM EST Follow-Up [facility] Core Drill Operator Oncology [address] [place], [place] [address], [address] [place] [address] Jaja Huber MD [address] [place] [address] [email or web address] 06/05/2025 1:30 AM EST Home Care Visit [facility] [address] [place] [address] Darlin Car RN [address] [place] [address] 06/12/2025 2:00 AM EST Home Care Visit [facility] [address] [place] [phone] Darlin Car RN [address] [place] [phone] [email or web address] 06/19/2025 1:00 AM EST Home Care Visit [facility] [address] [place] [phone] Darlin Car RN [address] [place] [phone] [email or web address] 06/26/2025 1:00 AM EST Home Care Visit [facility] [address] [place] [phone] Darlin Car RN [address] [place] [phone] [email or web address] 07/04/2025 12:30 AM EST Appointment [facility] [address] [place] [phone] Darlin Car RN [address] [place] [phone] [email or web address] documented as of this encounter Visit Diagnoses Not on filedocumented in this encounter Additional Health Concerns Infection Onset Date Last Indicated Resolved Time CoV-Risk 06/19/2023 06/19/2023 06/30/2023 1:24 AM EST CoV-Risk 02/22/2025 02/22/2025 03/05/2025 1:21 AM EDT documented as of this encounter Care Teams Chair Inspector And Leveler Relationship Specialty Start Date End Date Unknown, Unknown, MD PCP - General 02/24/18 11/09/20 Clara Shearer MD [address] [place] [address] PCP - General Family Medicine 11/10/20 02/15/22 Clara Shearer MD [address] [place] [address] PCP - General Family Medicine 02/16/22 documented as of this encounter Additional Source Comments The information contained in this document represents components of the legal health record. It is not the complete legal health record.[facility]
--- OUTSIDE RECORDS SUMMARY | 2025-05-16 16:54 | XMS_ITS | Encounter Summary ---
Author Organization [facility] Address [address] [place] [address] Phone Care Team Providers Care Brick Tosser Name Role Phone Clara Shearer MD Primary Care Provider [phone] Encounter Details Date Type Department Care Team (Late st Contact Info) Description 05/06/2025 Procedure Pass [facility] Periop [address] [place] [address] Social History Tobacco Use Types Packs/Day Years [...] housing situation today? I have naye sing 05/05/2025 How many times have you move [...] Visit [facility] [address] [place], [place] [phone] Darlin Car RN [address] [place] [address] 05/23/2025 3:00 AM EDT Home Care Visit [facility] [address] [place], [place] [phone] Darlin Car RN [address] [place] [address] 05/29/2025 2:00 AM EST Home Care Visit [facility] [address] [place] [address] Darlin Car RN [address] [place] [address] 06/02/2025 1:00 PM EST Follow-Up [facility] Cornetist Oncology [address] [place], [place] [address], [address] [place] [address] Jaja Huber MD [address] [place], [place] [address] [address] [email or web address] 06/05/2025 1:30 AM EST Home Care Visit [facility] [address] [place] [address] Darlin Car RN [address] [place] [address] 06/12/2025 2:00 AM EST Home Care Visit [facility] [address] [place] [phone] Darlin Car RN [address] [place] [address] 06/19/2025 1:00 AM EST Home Care Visit [facility] [address] [place] [address] Darlin Car RN [address] [place] [address] 06/26/2025 1:00 AM EST Home Care Visit [facility] [address] [place] [address] Darlin Car RN [address] [place] [address] 07/04/2025 12:30 AM EST Appointment [facility] [address] [place] [address] Darlin Car RN [address] [place] [address] documented as of this encounter Visit Diagnoses Not on filedocumented in this encounter Care Teams Brick Tosser Relationship Specialty Start Date End Date Clara Shearer MD [address] [place] [address] PCP - General Family Medicine 02/16/22 documented as of this encounter Additional Source Comments The information contained in this document represents components of the legal health record. It is not the complete legal health record.[facility]
--- OUTSIDE RECORDS SUMMARY | 2025-05-16 16:54 | XMS_ITS | Encounter Summary ---
Author Organization [facility] Address [address] [facility] [address] [place] [address] Phone Care Team Providers Care Energy Conservation Representative Name Role Phone Clara Shearer MD Primary Care Provider [phone] Encounter Details Date Type Department Care Team (Late st Contact Info) Description 12/04/2022 Procedure Pass [facility], Ct Scan - [facility] 30 [place], [place] [phone] Social History Tobacco Use Types Packs/Day Years [...] 05/20/2025 1:30 AM EDT [facility] [address] [place] [phone] Darlin Car RN [address] [place] [address] [email or web address] 05/23/2025 3:00 AM EDT Home Care Visit [facility] 30 [place] [address] Darlin Car RN [address] [place] [phone] [email or web address] 05/29/2025 2:00 AM EST Home Care Visit [facility] [address] [place] [phone] Darlin Car RN [address] [place] [phone] [email or web address] 06/02/2025 1:00 PM EST Follow-Up [facility] Office Machine Servicer Oncology [address] [place] [address], [address] [facility] [place] [address] Jaja Huber MD [address] [place] [address] [email or web address] 06/05/2025 1:30 AM EST Home Care Visit [facility] [address] [place] [phone] Darlin Car RN [address] [place] [phone] [email or web address] 06/12/2025 2:00 AM EST Home Care Visit [facility] [address] [place] [address] Darlin Car RN [address] [place] [address] [email or web address] 06/19/2025 1:00 AM EST Home Care Visit [facility] [address] [place] [address] Darlin Car RN [address] [place] [phone] [email or web address] 06/26/2025 1:00 AM EST Home Care Visit [facility] [address] [place] [address] Darlin Car RN [address] [place] [address] [email or web address] 07/04/2025 12:30 AM EST Appointment [facility] [address] [place] [address] Darlin Car RN [address] [place] [address] documented as of this encounter Visit Diagnoses Not on filedocumented in this encounter Additional Health Concerns Infection Onset Date Last Indicated Resolved Time CoV-Risk 06/19/2023 06/19/2023 06/30/2023 1:24 AM EST CoV-Risk 02/22/2025 02/22/2025 03/05/2025 1:21 AM EDT documented as of this encounter Care Teams Energy Conservation Representative Relationship Specialty Start Date End Date Clara Shearer MD [address] [place] [address] PCP - General Family Medicine 02/16/22 documented as of this encounter Additional Source Comments The information contained in this document represents components of the legal health record. It is not the complete legal health record.[facility]
--- OUTSIDE RECORDS SUMMARY | 2025-05-16 16:54 | XMS_ITS | Encounter Summary ---
Author Organization [facility] Address [address] [place] [address] [place], [place] [address] Care Team Providers Care Auto Service Station Attendant Name Role Phone Clara Shearer MD Primary Care Provider [phone] Reason for Referral * Consultation (Routine) - Closed Specialty Diagnoses / Procedures Referred By Contac t Referred To Contact Physical Therapy Diagnoses Right hip pain Chronic right-sided low back pain, unspecified whether sciatica present Clara Shearer MD [address] [place] [address] Phone: tel: fax: AT Physical Therapy - [address] [address] Phone: tel: fax: Referral ID Status Reason Start Date Expiration Date V isits Requested Visits Authorized [id number] Closed Specialty Services Required 11/14/2023 11/13/2024 1 1 Encounter Details Date Type Department Care Team (Late st Contact Info) Description 11/14/2023 Orders Only [facility] [address] [place], [place] [phone] Clara Shearer MD [address] [place], [place] [phone] Right hip pain (Primary Dx); Chronic right-sided [...] Description 06/09/2025 2:15 PM EST Office Visit [facility] [address] [place] [address] Jignesh Espinozaaris [address] [place] [address] Scheduled Referrals Name Type Priority Associated Diagnoses [...] PM EDT Narrative 11/25/2023 8:18 AM EDT [address] [address] XRay Report Signed Patient: Thalia Martell MR#: [id number] 2088 : 1975 Acct:[id number] Age/Sex: 48 / F ADM Date: 11/16/23 Loc: [facility] Attending Dr: Clara Shearer MD Ordering Physician: Clara Shearer MD Date of Service: 11/16/23 Procedure(s): XR thoracic spine 2V Accession Number(s): [id number] cc: Clara Shearer MD EXAMINATION: XR THORACOLUMBAR [...] in OV> 11/25/23 0815 DD/ 1549 TD/TT: Autism Teacher: QUINN Procedure Note Donotuseinterpreter, Image - 11/25/[address] [address] XRay Report Signed Patient: Yoel Martell#: [id number] 2088 : 1975Acct:[id number] Age/Sex: 48 / FADM Date: 11/16/23 Loc: HO.XRAY Attending Dr: Clara Shearer MD Ordering Physician: Clara Shearer MD Date of Service: 11/16/23 Procedure(s): XR thoracic spine 2V Accession Number(s): [id number] cc: Clara Shearer MD EXAMINATION: XR THORACOLUMBAR [...] MD inOV> 11/25/23 0815 DD/ 1549 TD/TT: Autism Teacher: QUINN Clara Shearer MD IMG XR [...] as of this encounter Care Teams Auto Service Station Attendant Relationship Specialty Start Date End Date Clara Shearer MD [address] [place] [address] PCP - General Family Medicine 07/24/18 documented as of this encounter
--- OUTSIDE RECORDS SUMMARY | 2025-05-16 16:54 | XMS_ITS | Encounter Summary ---
Author Organization [employer] [facility] Address [address] [place] [address] 7 [place] [address] Care Team Providers Care Automatic Operator Name Role Phone Clara Shearer MD Primary Care Provider [phone] Reason for Referral * Imaging (Routine) - Closed Specialty Diagnoses / Procedures Referred By Contac t Referred To Contact Radiology Diagnoses Metabolic dysfunction-associated steatotic liver disease (MASLD) Procedures US Abdomen Comp w elastography Clara Shearer MD [address] [place] [address] Phone: tel: fax: [address] Phone: tel: fax: Referral ID Status Reason Start Date Expiration Date Visits Re quested Visits Authorized [id number] Closed 11/17/2023 11/16/2024 1 1 Encounter Details Date Type Department Care Team (Late st Contact Info) Description 11/17/2023 Orders Only [facility] [address] [place], [place] [phone] Clara Shearer MD [address] [place], [place] [phone] Metabolic dysfunction-associated steatotic liver disease (MASLD) (Primary [...] Description 06/09/2025 2:15 PM EST Office Visit [facility]ULT [facility] [address] [place] [address] Jignesh Espinozaaris [address] [place] [address] documented as of this encounter Procedures Procedure Name Priority Date/Time Associated Diagnosis Comments US ABDOMEN COMPLETE WITH ELASTOGRAPHY Routine 12/05/2023 9:26 AM EDT Metabolic dysfunction-associa ebony steatotic liver disease (MASLD) documented in this encounter Results * US Abdomen Comp w elastography (12/05/2023 9:26 AM EDT) Anatomical Region Laterality Modality Abdomen Ultrasound 12/05/2023 9:26 AM EDT Narrative 12/12/2023 9:41 AM EDT [address] [address] Ultrasound Report Signed Patient: Thalia Martell MR#: [id number] 2088 : 1975 Acct:[id number] Age/Sex: 48 / F ADM Date: 12/05/23 Loc: HO.US Attending Dr: Clara Shearer MD Ordering Physician: Clara Shearer MD Date of Service: 12/05/23 Procedure(s): US abdomen comp w elastography Accession Number(s): [id number] cc: Clara Shearer MD EXAMINATION: US COMPLETE [...] MD in OV> 12/12/2337 DD/ 5 TD/TT: Senior Data Warehouse Architect: SS Procedure Note Donotuseinterpreter, Image - 12/12/[address] [address] Ultrasound Report Signed Patient: Yoel Martell#: [id number] 2088 : 1975Acct:[id number] Age/Sex: 48 / FADM Date: 12/05/23 Loc: HO.US Attending Dr: Clara Shearer MD Ordering Physician: Clara Shearer MD Date of Service: 12/05/23 Procedure(s): US abdomen comp w elastography Accession Number(s): [id number] cc: Clara Shearer MD EXAMINATION: US COMPLETE [...] MD Signed By: <Electronically signed by Yaniv eLdezma MD in OV> 12/12/2337 DD/ 5 TD/TT: Senior Data Warehouse Architect: SS us Clara Shearer MD IMG US PROCEDURES Final Result documented in this encounter Visit Diagnoses Diagnosis Metabolic dysfunction-associated steatotic liver disease (MASLD)- Primary documented in this encounter Additional Health Concerns Assessment Noted Time PHQ-9 Depression Total Score: 0 10/17/19 24 3:45 PM EDT documented as of this encounter Care Teams Automatic Operator Relationship Specialty Start Date End Date Clara Shearer MD [address] [place] [address] PCP - General Family Medicine 07/24/18 documented as of this encounter
--- OUTSIDE RECORDS SUMMARY | 2025-05-16 16:54 | XMS_ITS | Encounter Summary ---
Author Organization [facility] Address [address] [facility] [address] [place] [address] Phone Care Team Providers Care School Aide Name Role Phone Clara Shearer MD Primary Care Provider [phone] Encounter Details Date Type Department Care Team (Late st Contact Info) Description 08/19/2022 Procedure Pass [place] Admitting Dept - Virtual Department [address] [place], [place] [phone] Social History Tobacco Use Types Packs/Day Years [...] 05/20/2025 1:30 AM EDT [facility] [address] [place] [address] Darlin Car RN [address] [place], [place] [phone] 05/23/2025 3:00 AM EDT Home Care Visit [facility] [address] [place] [address] Darlin Car RN [address] [place] [address] 05/29/2025 2:00 AM EST Home Care Visit [facility] [address] [place] [address] Darlin Car RN [address] [place] [address] 06/02/2025 1:00 PM EST Follow-Up [facility] Procurement Services Manager Oncology [address] [place], [place] [address], [address] [place] [address] Jaja Huber MD [address] [place], [place] [address] [place] [address] [email or web address] 06/05/2025 1:30 AM EST Home Care Visit [facility] [address] [place] [address] Darlin Car RN [address] [place] [address] 06/12/2025 2:00 AM EST Home Care Visit [facility] [address] [place] [phone] Darlin Car RN [address] [place] [address] 06/19/2025 1:00 AM EST Home Care Visit [facility] [address] [place] [address] Darlin Car RN [address] [place] [address] 06/26/2025 1:00 AM EST Home Care Visit [facility] [address] [place] [address] Darlin Car RN [address] [place] [address] 07/04/2025 12:30 AM EST Appointment [facility] [address] [place] [address] Darlin Car RN [address] [place] [address] documented as of this encounter Visit Diagnoses Not on filedocumented in this encounter Additional Health Concerns Infection Onset Date Last Indicated Resolved Time CoV-Risk 06/19/2023 06/19/2023 06/30/2023 1:24 AM EST CoV-Risk 02/22/2025 02/22/2025 03/05/2025 1:21 AM EDT documented as of this encounter Care Teams School Aide Relationship Specialty Start Date End Date Clara Shearer MD [address] [place] [address] PCP - General Family Medicine 02/16/22 documented as of this encounter Additional Source Comments The information contained in this document represents components of the legal health record. It is not the complete legal health record.[facility]
--- OUTSIDE RECORDS SUMMARY | 2025-05-16 16:54 | XMS_ITS | Encounter Summary ---
Author Organization [employer] Address [address] [facility] 7t [place] [address] Care Team Providers Care Emergency Dispatcher Name Role Phone Clara Shearer MD Primary Care Provider [phone] Reason for Visit * Reason Comments Med Refill Encounter Details Date Type Department Care Team ([facility] st Contact Info) Description 05/16/[address] [facility] [address] [place], [place] [phone] Clara Shearer MD [address] [place], [place] [phone] Social History Tobacco Use Types Packs/Day Years [...] Description 06/09/2025 2:15 PM EST Office Visit [facility] [address] [place] [address] Olga, Katt [address] [place] [address] documented as of this encounter Visit Diagnoses Not on filedocumented in this encounter Additional Health Concerns Assessment Noted Time PHQ-9 Depression Total Score: 17 025 1:38 PM EDT documented as of this encounter Care Teams Emergency Dispatcher Relationship Specialty Start Date End Date Clara Shearer MD [address] [place] [address] PCP - General Family Medicine 07/24/18 documented as of this encounter
--- OUTSIDE RECORDS SUMMARY | 2025-05-16 16:54 | XMS_ITS | Encounter Summary ---
Author Organization [facility] Address [address] [place] [address] Phone Care Team Providers Care Tool Designer Apprentice Name Role Phone Clara Shearer MD Primary Care Provider [phone] Encounter Details Date Type Department Care Team ([facility] st Contact Info) Description 05/05/2025 Procedure Pass [facility] Echocardiography [address] [place] [address] Social History Tobacco Use Types Packs/Day Years [...] 4:00 PM EDT Kacy Cardoza RN * [place] Suicide Severity Rating Scale (Screener/Recent Self-Report) Question Answer Date of Assessment Author 1. Wish to be (Past 1 Month) No 025 4:00 PM EDT Kacy Rivas RN 2. Non-Specific Active Suici [place] Thoughts (Past 1 Month) No 05/05/2025 4:00 PM EDT Corie Rivas RN 6. Suicidal Behavior (Lifetime) No 4:00 PM EDT Kacy Rivas, EVY documented as of this encounter Plan of Treatment Upcoming Encounters Date Type Department Care Team (Late st Contact Info) Description 05/20/2025 1:30 AM EDT Home Care Visit [facility] [address] [place], [place] [phone] Darlin Car RN [address] [place] [address] 05/23/2025 3:00 AM EDT Home Care Visit [facility] [address] [place], [place] [phone] Darlin Car RN [address] [place] [address] 05/29/2025 2:00 AM EST Home Care Visit [facility] [address] [place] [address] Darlin Car RN [address] [place] [address] 06/02/2025 1:00 PM EST Follow-Up [facility] Peanut Cleaner Oncology [address] [place] [address], Suite [facility] [place] [address] Jaja Huber MD [address] [place] [address] [email or web address] 06/05/2025 1:30 AM EST Home Care Visit [facility] [address] [place], [place] [phone] Darlin Car RN [address] [place] [address] 06/12/2025 2:00 AM EST Home Care Visit [facility] [address] [place] [address] Darlin Car RN [address] [place] [address] 06/19/2025 1:00 AM EST Home Care Visit [facility] [address] [place] [address] Darlin Car RN [address] [place] [address] 06/26/2025 1:00 AM EST Home Care Visit [facility] [address] [place] [address] Darlin Car RN [address] [place] [address] 07/04/2025 12:30 AM EST Appointment [facility] [address] [place], [place] [phone] Darlin Car RN [address] [place] [address] documented as of this encounter Visit Diagnoses Not on filedocumented in this encounter Care Teams Tool Designer Apprentice Relationship Specialty Start Date End Date Clara Shearer MD [address] [place] [address] PCP - General Family Medicine 02/16/22 documented as of this encounter Additional Source Comments The information contained in this document represents components of the legal health record. It is not the complete legal health record.[facility]
--- OUTSIDE RECORDS SUMMARY | 2025-05-16 16:54 | XMS_ITS | Encounter Summary ---
Author Organization [facility] Address [address] [place] [address] Phone Care Team Providers Care Kiln Door Builder Name Role Phone Clara Shearer MD Primary Care Provider [phone] Encounter Details Date Type Department Care Team (Late st Contact Info) Description 06/19/2023 Procedure Pass [facility], Ct Scan - [address] [address] Social History Tobacco Use Types Packs/Day Years [...] 06/19/2023 8:16 AM Wandy Shelby RN * [place] Suicide Severity Rating Scale (Screener/Recent Self-Report) Question [...] 1:30 AM EDT Home Care Visit [facility] [address] [place] [address] Darlin Car RN [address] [place] [address] 05/23/2025 3:00 AM EDT Home Care Visit [facility] [address] [place], [place] [phone] Darlin Car RN [address] [place] [address] 05/29/2025 2:00 AM EST Home Care Visit [facility] [address] [place] [address] Darlin Car RN [address] [place] [address] 06/02/2025 1:00 PM EST Follow-Up [facility] Industrial Laborer Oncology [address] [place] [address] ASB1-3, [address] [place] [address] Jaja Huber MD [address] [place] [address], [facility]-3[address] [place] [address] [email or web address] 06/05/2025 1:30 AM EST Home Care Visit [facility] [address] [place] [phone] Darlin Car RN [address] [place] [address] 06/12/2025 2:00 AM EST Home Care Visit [facility] [address] [place] [phone] Darlin Car RN [address] [place] [address] 06/19/2025 1:00 AM EST Home Care Visit [facility] [address] [place] [phone] Darlin Car RN [address] [place] [address] 06/26/2025 1:00 AM EST Home Care Visit [facility] [address] [place] [address] Darlin Car RN [address] [place] [address] 07/04/2025 12:30 AM EST Appointment [facility] [address] [place] [phone] Darlin Car RN [address] [place] [address] documented as of this encounter Visit Diagnoses Not on filedocumented in this encounter Additional Health Concerns Infection Onset Date Last Indicated Resolved Time CoV-Risk 06/19/2023 06/19/2023 06/30/2023 1:24 AM EST CoV-Risk 02/22/2025 02/22/2025 03/05/2025 1:21 AM EDT documented as of this encounter Care Teams Kiln Door Builder Relationship Specialty Start Date End Date Clara Shearer MD [address] [place] [address] PCP - General Family Medicine 02/16/22 documented as of this encounter Additional Source Comments The information contained in this document represents components of the legal health record. It is not the complete legal health record.[facility]
--- OUTSIDE RECORDS SUMMARY | 2025-05-16 16:54 | XMS_ITS | Clinical Summary ---
Author Organization [facility] Address [address] [place] [address] Care Team Providers Care Care Rep Name Role Phone Manfred Clara Primary Care Provider [phone] Allergies No known active allergies Medications aspirin [...] DTaP,Tdap,and Td Vaccines (1 - Tdap) 1999 Mammogram 2017 Cervical Cancer Screening 12/18/2023 Pap Smear 12/18/2023 12/17/2020 Alcohol/Substance Use Screening 07/24/2024 COVID-19 Vaccine (3 - 2024-2 6 season) 2025 11/06/2020, 10/09/2020 Influenza Vaccine (#1) 2025 RSV Vaccine (60+ years old a nd patients) (1 - 1-dose 75+ series) 02/19/2052 Pneumococcal Vaccine: Pediatric (0-5 Years) and At-Risk Patients (6-50 Years) Aged Out No longer eligible based on patient's age to complete this topic Procedures * Due to [facility] law, this organization might not be sharing negative HIV tests. Procedure Name Priority Date/Time Associated Diagnosis Comments PAP Routine 12/17/2020 2:37 PM EDT Hematometra from Last 3 Months or Most Recently Relevant to Health Maintenance Results * Due to [facility] law, this organization might not be sharing negative HIV tests. * Pap (12/17/2020 2:37 PM EDT) Specimen Adequacy Satisfactory for evaluation [facility] 1 5:02 PM EDT [facility] to be [facility] LABORAT[facility] Pathologist Cytology Interpretation Negative for intraepithelial lesion or malignancy. [facility]UAL 1 5:02 PM EDT [facility] to be [facility] AN[facility]OLOG[facility] LABORATORY at 1702 EDT Comment:This is the result o f a morphological screening test with an inherent possibility of a false negative interpretation. Decorator Consultant Statement This Pap test was examined by the ThinPrep Imaging System, [employer], [place], [place]. This Pap test was examined in accordance with the [facility] Cytopathology Laboratory written policy, which incorporates all CLIA mandates. Screening guidelines can be found in Am J Clin Pathol 2012;137:516-542. We endorse the practice guidelines developed by ASCCP and published in the Journal Lower Genital Tract Disease 17(5):S1-S27 (2013). [facility] 1 5:02 PM EDT [employer] [facility] Clinical History Hematometra [facility] 1 5:02 PM EDT [facility] to be [facility] Resulting Agency Case was signed out at [facility], Department of Pathology, [employer] 3 CLIA [id number] [facility]UAL 1 5:02 PM EDT [facility] CAR[facility] to be [facility] LABORAT[facility] Report Header Gynecologic Cytology Report Case: [id number] Authorizing Provider: Susan Girard Collected: 12/17/2020 1437 Ordering Location: [facility] Received: 12/17/2020 1626 [facility] Obstetrics and Gynecology First Screen: Sissy Dooley Specimen: Screening ThinPrep Pap, Cervix/Endocervix 5:02 PM EDT [employer] [facility] Brushing Cervix uteri structure / Unknown Non-Blood Collection / Unknown 12/17/2020 2:37 PM EDT 12/17/2020 4:26 PM EDT us Susan Girard [employer] SUPERVISOR LAB PATHOLOGY/CYTOLOGY ORDERABL ES Final Result [employer] [facility] [address] [place] [address], from Last 3 Months or Most Recently Relevant to Health Maintenance Insurance [facility]/FREE CARE [facility] Care Teams Care Rep Relationship Specialty Start Date End Date Dilcia Shearero [address] [place] [address] PCP - General Family Medicine 05/26/20
--- OUTSIDE RECORDS SUMMARY | 2025-05-16 16:54 | XMS_ITS | Encounter Summary ---
Author Organization [facility] Address [address] [facility] [address] [place] [address] Phone Care Team Providers Care Financial Aid Director Name Role Phone Unknown, Unknown Primary Care Provider Clara Thompson MD Primary Care Provider [phone] Clara Shearer MD Primary Care Provider [phone] Encounter Details Date Type Department Care Team (Late st Contact Info) Description 02/24/2018 Procedure Pass [facility], Ct Scan - [facility] [address] [place] [address] Social History Tobacco Use Types Packs/Day Years [...] 05/20/2025 1:30 AM EDT Home Care Visit [facility] [address] [place] [phone] Darlin Car RN [address] [place] [address] 05/23/2025 3:00 AM EDT Home Care Visit [facility] [address] [place] [address] Darlin Car RN [address] [place] [address] 05/29/2025 2:00 AM EST Home Care Visit [facility] [address] [place] [address] aDrlin Car RN [address] [place] [address] 06/02/2025 1:00 PM EST Follow-Up [facility] Roundhouse Worker Oncology [address] [place] [address], [address] [place] [address] Jaja Huber MD [address] [place], [place] [address] [address] [email or web address] 06/05/2025 1:30 AM EST Home Care Visit [facility] [address] [place] [address] Darlin Car RN [address] [place] [address] 06/12/2025 2:00 AM EST Home Care Visit [facility] [address] [place] [address] Darlin Car RN [address] [place] [address] 06/19/2025 1:00 AM EST Home Care Visit [facility] [address] [place] [address] Darlin Car RN [address] [place] [address] 06/26/2025 1:00 AM EST Home Care Visit [facility] [address] [place], [place] [phone] Dariln Car RN [address] [place] [address] 07/04/2025 12:30 AM EST Appointment [facility] [address] [place], [place] [phone] Darlin Car RN [address] [place] [address] documented as of this encounter Visit Diagnoses Not on filedocumented in this encounter Additional Health Concerns Infection Onset Date Last Indicated Resolved Time CoV-Risk 06/19/2023 06/19/2023 06/30/2023 1:24 AM EST CoV-Risk 02/22/2025 02/22/2025 03/05/2025 1:21 AM EDT documented as of this encounter Care Teams Financial Aid Director Relationship Specialty Start Date End Date Unknown, Unknown, MD PCP - General 02/24/18 11/09/20 Clara Shearer MD [address] [place] [address] PCP - General Family Medicine 11/10/20 02/15/22 Clara Shearer MD [address] [place] [address] PCP - General Family Medicine 02/16/22 documented as of this encounter Additional Source Comments The information contained in this document represents components of the legal health record. It is not the complete legal health record.[facility]
--- OUTSIDE RECORDS SUMMARY | 2025-05-16 16:54 | XMS_ITS | Encounter Summary ---
Author Organization [email or web address] Address [address] [facility] 7t [place] [address] Care Team Providers Care Safety Officer Name Role Phone Clara Shearer MD Primary Care Provider [phone] Reason for Visit * Reason Onset Date Comments rs prophy 05/22/2023 Encounter Details Date Type Department Care Team ([facility] st Contact Info) Description 05/22/2023 Telephone [facility] ADULT DENTAL [address] [place], [place] [phone] Olga, Katt [address] [place] [address] rs prophy Social History Tobacco Use Types [...] 2:15 PM EST Office Visit [facility] ADULT [facility]AL [address] [place] [address] Katt Espinoza [address] [place] [address] documented as of this encounter Visit Diagnoses Not on filedocumented in this encounter Additional Health Concerns Assessment Noted Time PHQ-9 Depression Total Score: 5 03/07/20 23 3:27 PM EDT documented as of this encounter Care Teams Safety Officer Relationship Specialty Start Date End Date Clara Shearer MD [address] [place] [address] PCP - General Family Medicine 07/24/18 documented as of this encounter
--- OUTSIDE RECORDS SUMMARY | 2025-05-16 16:54 | XMS_ITS | Encounter Summary ---
Author Organization [facility] Address [address] [facility] [address] [place] [address] Phone Care Team Providers Care Bi Tri Operator Name Role Phone Clara Shearer MD Primary Care Provider [phone] Encounter Details Date Type Department Care Team (Late st Contact Info) Description 12/04/2022 Procedure Pass [facility], Ct Scan - [facility] [address] [place], [place] [phone] Social History Tobacco Use Types Packs/Day Years [...] 05/20/2025 1:30 AM EDT [facility] [address] [place] [phone] Darlin Car RN [address] [place] [address] [email or web address] 05/23/2025 3:00 AM EDT [facility] [address] [place] [address] Darlin Car RN [address] [place] [address] [email or web address] 05/29/2025 2:00 AM EST Home Care Visit [facility] [address] [place] [address] Darlin Car RN [address] [place] [address] [email or web address] 06/02/2025 1:00 PM EST Follow-Up [facility] Aviation Safety Inspector Oncology [address] [place] [address], Suite [facility] [place] [address] Jaja Huber MD [address] [place] [address] [email or web address] 06/05/2025 1:30 AM EST Home Care Visit [facility] [address] [place] [phone] Darlin Car RN [address] [place] [address] [email or web address] 06/12/2025 2:00 AM EST Home Care Visit [facility] [address] [place] [address] Darlin Car RN [address] [place] [address] [email or web address] 06/19/2025 1:00 AM EST Home Care Visit [facility] [address] [place] [address] Darlin Car RN [address] [place] [address] [email or web address] 06/26/2025 1:00 AM EST Home Care Visit [facility] [address] [place] [address] Darlin Car RN [address] [place] [address] [email or web address] 07/04/2025 12:30 AM EST Appointment [facility] [address] [place] [address] Darlin Car RN [address] [place] [address] documented as of this encounter Visit Diagnoses Not on filedocumented in this encounter Additional Health Concerns Infection Onset Date Last Indicated Resolved Time CoV-Risk 06/19/2023 06/19/2023 06/30/2023 1:24 AM EST CoV-Risk 02/22/2025 02/22/2025 03/05/2025 1:21 AM EDT documented as of this encounter Care Teams Bi Tri Operator Relationship Specialty Start Date End Date Clara Shearer MD [address] [place] [address] PCP - General Family Medicine 02/16/22 documented as of this encounter Additional Source Comments The information contained in this document represents components of the legal health record. It is not the complete legal health record.[facility]
--- OUTSIDE RECORDS SUMMARY | 2025-05-16 16:55 | XMS_ITS | Encounter Summary ---
Author Organization [facility] Address [address] [place] [address] 7 [place] [address] Care Team Providers Care Gun Fitter Name Role Phone Clara Shearer MD Primary Care Provider [phone] Encounter Details Date Type Department Care Team (Late st Contact Info) Description 07/20/2022 Abstract [facility] MEDICINE [address] [place], [place] [phone] Clara Shearer MD [address] [place] [address] Social History Tobacco Use Types Packs/Day Years [...] 2:15 PM EST Office Visit [facility] ADULT DENTAL [address] [place], [place] [phone] Jignesh Espinozaaris [address] [place] [address] documented as of this encounter Visit Diagnoses Not on filedocumented in this encounter Care Teams Gun Fitter Relationship Specialty Start Date End Date Clara Shearer MD [address] [place], [place] [phone] PCP - General Family Medicine 07/24/18 documented as of this encounter
--- OUTSIDE RECORDS SUMMARY | 2025-05-16 16:55 | XMS_ITS | Encounter Summary ---
Author Organization [employer] Address [address] [place] [address] 7t [place] [address] Care Team Providers Care Environmental Manager Name Role Phone Clara Shearer MD Primary Care Provider [phone] Encounter Details Date Type Department Care Team (Latest Contact Info) Description 09/26/2019 Abstract [facility] CONVERSIONS Dental, Provider, DDS Social History [...] Description 06/09/2025 2:15 PM EST Office Visit [facility] ADULT DENTAL [address] [place] [address] Olga, Katt [address] [place] [address] documented as of this encounter Visit Diagnoses Not on filedocumented in this encounter Care Teams Environmental Manager Relationship Specialty Start Date End Date Clara Shearer MD [address] [place] [address] PCP - General Family Medicine 07/24/18 documented as of this encounter
--- OUTSIDE RECORDS SUMMARY | 2025-05-16 16:55 | XMS_ITS | Encounter Summary ---
Author Organization [facility] Address [address] [facility] [address] [place] [address] Phone Care Team Providers Care Cable Assembler Name Role Phone Clara Shearer MD Primary Care Provider [phone] Reason for Visit * Auth/Cert (Routine) Specialty Diagnoses / Procedures Referred By Ron t Referred To Contact Referral ID Status Reason Start Date Expiration Date Visits Re quested Visits Authorized [id number] 1 1 Encounter Details Date Type Department Care Team (Late st Contact Info) Description 05/14/2025 Home Care Visit [facility] [address] [place] [address] Katy Anderson RN [address] [place] [address] [email or web address] CASE COMMUNICATION Social History Tobacco Use Types Packs/Day Years [...] Upcoming Encounters Date Type Department Care Team (Jose st Contact Info) Description 05/20/2025 1:30 AM EDT [facility] [address] [place] [phone] Darlin Car RN [address] [place] [address] [email or web address] 05/23/2025 3:00 AM EDT Home Care [facility] [address] [place] [address] Darlin Car RN [address] [place] [phone] [email or web address] 05/29/2025 2:00 AM EST Home Care [facility] [address] [place] [address] Darlin Car RN [address] [place] [address] [email or web address] 06/02/2025 1:00 PM EST Follow-Up [facility] Materials Management Clerk Oncology [address] [place] [address]-, [address] [place] [address] Jaja Huber MD [address] [place] [address] [email or web address] 06/05/2025 1:30 AM EST Home Care [facility] [address] [place] [phone] Darlin Car RN [address] [place] [address] [email or web address] 06/12/2025 2:00 AM EST Home Care [facility] [address] [place] [address] Darlin Car RN [address] [place] [address] 06/19/2025 1:00 AM EST Home Care Visit [facility] [address] [place] [address] Darlin Car RN [address] [place] [address] 06/26/2025 1:00 AM EST Home Care Visit [facility] [address] [place] [address] Darlin Car RN [address] [place] [address] 07/04/2025 12:30 AM EST Appointment [facility] [address] [place] [address] Darlin Car RN [address] [place] [address] [email or web address] documented as of this encounter Visit Diagnoses Not on filedocumented in this encounter Care Teams Cable Assembler Relationship Specialty Start Date End Date Clara Shearer MD [address] [place] [address] PCP - General Family Medicine 02/16/22 documented as of this encounter Additional Source Comments The information contained in this document represents components of the legal health record. It is not the complete legal health record.[facility]
--- OUTSIDE RECORDS SUMMARY | 2025-05-16 16:55 | XMS_ITS | Encounter Summary ---
Author Organization [employer] Address [address] [facility] 7t [place] [address] Care Team Providers Care Assistant Grocery Name Role Phone Clara Shearer MD Primary Care Provider [phone] Encounter Details Date Type Department Care Team ([facility] st Contact Info) Description 05/10/2025 Telephone [facility] CHC MED & PEDS [address] [place], [place] [phone] Rena Lopez MD [address] [place], [place] [phone] Social History Tobacco Use Types Packs/Day Years [...] encounter Miscellaneous Notes * Telephone Encounter - Rena Lopez MD - 05/12/2025 11:03 AM EDT Incoming call on requesting refill of omeprazole.Medication sent to pharmacy on file documented in this encounter Plan of Treatment Upcoming Encounters Date Type Department Care Team (Late st Contact Info) Description 06/09/2025 2:15 PM EST Office Visit [facility] ADULT DENTAL [address] [place] [address] Olga, Katt [address] [place] [address] documented as of this encounter Visit Diagnoses Not on filedocumented in this encounter Additional Health Concerns Assessment Noted Time PHQ-9 Depression Total Score: 17 025 1:38 PM EDT documented as of this encounter Care Teams Assistant Grocery Relationship Specialty Start Date End Date Clara Shearer MD [address] [place] [address] PCP - General Family Medicine 07/24/18 documented as of this encounter
--- OUTSIDE RECORDS SUMMARY | 2025-05-16 16:55 | XMS_ITS | Encounter Summary ---
Author Organization [facility] Address [address] [place] [address] Phone Care Team Providers Care Varnishing Machine Operator Name Role Phone Clara Shearer MD Primary Care Provider [phone] Reason for Visit * Reason Onset Date Comments FMLA paperwork 05/14/2025 Encounter Details Date Type Department Care Team ([facility] st Contact Info) Description 05/14/2025 Telephone [facility] President + Publisher Oncology [address] [facility] ASB1-3, [address] [place], [place] [phone] Bonnie Sosa RN [email or web address] FMLA paperwork Social History Tobacco Use Types Packs/Day Years [...] PM EDT documented as of this encounter Progress Notes * Bonnie Sosa RN - 05/14/2025 3:13 PM EDT Pt's daughter Kellee Clancy called requesting caregiver FMLA paperwork be completed. Fax # provided.I informed her that it takes ~1-2wks for paperwork to be completed. documented in this encounter Plan of Treatment Upcoming Encounters Date Type Department Care Team (Late st Contact Info) Description 05/20/2025 1:30 AM EDT Home [facility] [address] [place] [address] Darlin Car RN [address] [place] [address] 05/23/2025 3:00 AM EDT Home Care Visit [facility] [address] [place] [address] Darlin Car RN [address] [place] [address] 05/29/2025 2:00 AM EST Home Care Visit [facility] [address] [place] [phone] Darlin Car RN [address] [place] [address] 06/02/2025 1:00 PM EST Follow-Up [facility] President + Publisher Oncology [address] [place] [address], Suite [facility] [place] [address] Jaja Huber MD [address] [place] [phone] [email or web address] 06/05/2025 1:30 AM EST Home Care Visit [facility] [address] [place] [address] Darlin Car RN [address] [place] [address] 06/12/2025 2:00 AM EST Home Care Visit [facility] [address] [place] [address] Darlin Car RN [address] [place] [address] 06/19/2025 1:00 AM EST [facility] [address] [place] [phone] Darlin Car RN [address] [place] [address] 06/26/2025 1:00 AM EST Home Care Visit [facility] [address] [place] [address] Darlin Car RN [address] [place] [address] 07/04/2025 12:30 AM EST Appointment [facility] [address] [place] [phone] Darlin Car RN [address] [place] [address] documented as of this encounter Visit Diagnoses Not on filedocumented in this encounter Care Teams Varnishing Machine Operator Relationship Specialty Start Date End Date Clara Shearer MD [address] [place] [address] PCP - General Family Medicine 02/16/22 documented as of this encounter Additional Source Comments The information contained in this document represents components of the legal health record. It is not the complete legal health record.[facility]
--- OUTSIDE RECORDS SUMMARY | 2025-05-16 16:55 | XMS_ITS | Encounter Summary ---
Author Organization [facility] Address [address] [place] [address] Phone Care Team Providers Care Leather Colorer Name Role Phone Clara Shearer MD Primary Care Provider [phone] Encounter Details Date Type Department Care Team ([facility] Contact Info) Description 05/14/2025 Orders Only [facility] Javascript Programmer Oncology [address] [facility] [address], [address] [place] [address] Leslie Devlin RN [email or web address] Hematuria (Primary Dx) Social History Tobacco Use Types [...] 1:30 AM EDT Home [facility] [address] [place] [address] Darlin Car, EVY [address] [place] [phone] 05/23/2025 3:00 AM EDT Home [facility] Visit [facility] [address] [place] [address] Darlin Car RN [address] [place] [phone] [email or web address] 05/29/2025 2:00 AM EST Home Care Visit [facility] [address] [place] [address] Darlin Car RN [address] [place] [phone] 06/02/2025 1:00 PM EST Follow-Up [facility] Javascript Programmer Oncology [address] [place], [place] [id number], [address] [place] [address] Jaja Huber MD [address] [place] [phone] [email or web address] 06/05/2025 1:30 AM EST [facility] [address] [place] [address] Darlin Car RN [address] [place] [phone] 06/12/2025 2:00 AM EST Home [facility] Visit [facility] [address] [place] [address] Darlin Car RN [address] [place] [phone] 06/19/2025 1:00 AM EST Home Care Visit [facility] [address] [place] [address] Darlin Car RN [address] [place] [phone] 06/26/2025 1:00 AM EST Home Care Visit [facility] [address] [place] [address] Darlin Car RN [address] [place] [address] [email or web address] 07/04/2025 12:30 AM EST Appointment [facility] [address] [place] [address] Darlin Car RN [address] [place] [address] [email or web address] Scheduled Orders Name Type Priority Associated Diagnoses Orde r Schedule Urinalysis w/reflex Urine Culture Lab Routine Hematuria Expected: 05/14/2025, Expires: 05/14/2026 documented as of this encounter Visit Diagnoses Diagnosis Hematuria- Primary Hematuria, unspecified documented in this encounter Care Teams Leather Colorer Relationship Specialty Start Date End Date Clara Shearer MD [address] [place] [phone] PCP - General Family Medicine 02/16/22 documented as of this encounter Additional Source Comments The information contained in this document represents components of the legal health record. It is not the complete legal health record.[facility]
--- OUTSIDE RECORDS SUMMARY | 2025-05-16 16:55 | XMS_ITS | Clinical Summary ---
Author Organization [facility] Address [address] [place] [address] Phone Care Team Providers Care Cad Administrator Name Role Phone Clara Shearer MD Primary Care Provider [phone] Allergies No known active allergies Medications cholecalciferol (VITAMIN D3) 2,000 unit capsule Take by mouth daily. 12/14/19 22 Active FEROSUL 325 mg (65 mg iron) tablet Take 1 tablet by mouth 2 (two) times a day. 12/14/19 Active PROCTOZONE-HC 2.5 % rectal cream APPLY RECTALLY 2 TO 4 TIMES DAILY NEEDED FOR HEMORRHOIDS 12/14/19 22 Active MULTIVITAMIN tablet Take 1 tablet by mouth daily. with food 12/14/19 Active warfarin (COUMADIN) 2 MG tablet TAKE 1 TABLET TO 3 TABLETS EVERY DAY DIRECTED BY coumadin clinic 07/15/20 22 Active BABY ASPIRIN ORAL Take by mouth daily. Active ascorbic acid, vitamin C, (VITAMIN C) 500 MG tablet Take 1 tablet by mouth 2 (two) times a day. 08/30/19 24 Active SUMAtriptan (IMITREX) 50 MG tablet Take 50 mg by mouth once as needed. 10/13/19 24 Active tolterodine (DETROL LA) 4 MG 24 hr capsuleIndicatio ns:Mixed stress and urge urinary incontinence [The details of the medication are not available because there are pending changes by a home health clinician.] 30 capsule 4 11/28/19 24 Active Additional Information Patient taking differently:4 mg Oral Daily,only taking as needed, Reported on 05/10/2025 cetirizine (ZYRTEC) 10 MG tablet Take 10 mg by mouth daily as needed for allergies. 05/10/20 25 Active fluoride, sodium, (PREVIDENT 5000 PLUS) 1.1 % Crea Place 1 mg onto teeth. 03/06/20 24 Active cyclobenzaprine (FLEXERIL) 5 MG tablet Take 5 mg by mouth 3 (three) times a day as needed for muscle spasms. 03/06/20 24 Active senna (SENOKOT) 8.6 mg tablet Take 2 tablets by mouth nightly at bedtime. 30 tablet 05/08/20 25 Active acetaminophen (TYLENOL) 325 mg tablet Take 2 tablets (650 mg total) by mouth every 6 (six) hours. 120 tablet 05/08/20 25 Active oxyCODONE 5 MG immediate release tablet Take 0.5-1 tablets (2.5-5 mg total) by mouth every 4 (four) hours as needed for pain (specific location in comments). Partial fill ok 3 tablet 05/08/20 25 Active enoxaparin (LOVENOX) 80 mg/0.8 mL Syrg subcutaneous injection syringe Inject 0.7 mL (70 mg total) under the skin every 12 (twelve) hours for 14 days. 22.4 mL 05/08/20 25 025 Active senna (SENOKOT) 8.6 mg tablet Take 2 tablets by mouth nightly at bedtime. 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 - following with [facility], last seen in Feb 2023 - [...] on warfarin - previously prescribed metoprolol by winchman/crane operator; no longer on the medication due to hypotension / dizziness - continue following with winchman/crane operator, [facility] - last TTE in January 2022, mild mitral valve stenosis - continue current treatment plan per cardiology Chronic anticoagulation 11/22/2022 Overview (11/28/2023): Last Assessment & Plan: - indication: Aortic valve replacement - medication warfarin - goal INR 2-3 - followed by [facility] anticoagulation [facility] - last INR was 2.0 on 03/01/23 - continue current management plan Abnormal uterine bleeding 11/08/2022 Overview (11/28/2023): Last Assessment & Plan: s/p Endometrial Curetting's, polyp, benign -Pt has follow-up appointment with INSTRUCTOR CREELER -Pt is on Coumadin -Pt requested Hysterectomy, pt will follow-up with INSTRUCTOR CREELER with possible hysterectomy in future Vitamin D deficiency 12/04/2018 Overview (11/28/2023): Last Assessment & Plan: -continue vitamin D supplement History of mechanical aortic valve replacement 0 04/07/2015 Overview (11/28/2023): Last Assessment & Plan: - 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 Mechanical aortic valve functioning normally. Moderate mitral valve stenosis. No regurgitation. - Continue warfarin - Continue SBE prophylaxis. Allergic rhinitis 12/09/2013 Aortic valve regurgitation 07/25/2013 Overview (11/28/2023): Last Assessment & Plan: - Mold Setter[facility], last seen in Aug 2023 - [...] Encounters Date Type Department Care Team Description 05/16/2025 5:00 AM EDT Home Care Visit [facility] [address] [place] [phone] Joseph Cates LPN HOME VISIT 05/14/2025 Telephone [facility] Starting Sheet [facility] [address] [address], [address] [place] [phone] Bonnie Sosa, EVY [facility] paperwork 05/14/2025 Home Care Visit [facility] [address] [place] [address] Katy Anderson RN CASE COMMUNICATION 05/14/2025 Telephone [facility] Starting Sheet [facility] [address] [address], [address] [place] [phone] Leslie Devlin RN 05/14/2025 Orders Only [facility] Starting Sheet [facility] [address] [address], [address] [place] [phone] Leslie Devlin, EVY Hematuria (Primary Dx) 05/13/2025 Home Care Visit [facility] [address] [place] [phone] Joseph Cates LPN HOME VISIT 05/12/2025 Episode Documentation Update [facility] [address] [place] [address] 05/10/2025 7:30 AM EDT Home Care Visit [facility] [address] [place] [address] Darlin Car, RN SN OASIS START OF CARE (SOC) 05/10/2025 Plan of Care Documentation [facility] [address] [place] [phone] 05/08/2025 Orders Only [facility] [address] [place] [address] HomehealthSuresh MD 05/06/2025 11:14 AM EDT Anesthesia Event [facility] Periop [address] [place] [address] Jovana Bunn MBBS, Eryn Holland, LYNDA 05/06/2025 11:08 AM EDT - 05/06/2025 1:26 PM EDT Surgery [facility] Periop [address] [place] [address] Jaja Huber MD LAPAROSCOPIC TOTAL HYSTERECTOMY, BILATERAL SALPINGECTOMY, RIGHT OOPHERECTOMY, OMENTAL BIOPSY 05/06/2025 Procedure Pass [facility] Periop [address] [place] [address] 05/05/2025 Procedure Pass [facility] Echocardiography [address] [place] [address] 05/04/2025 8:54 PM EDT - 05/09/2025 11:16 AM EDT Hospital Encounter [facility] CWN [address]N [address] [place] [address] Benita Webster MD Davis, MD Shahbaz Stevenson, MD Maribeth Harrison, Raul Saul MD Discharge Disposition: [facility] 05/04/2025 1:16 PM EDT - 05/04/2025 7:05 PM EDT Emergency [facility] [address] [place] [address] Discharge Disposition: Critical Access Hospital 05/04/2025 Procedure Pass [facility] [address] [place] [address] 02/23/2025 1:01 AM EDT - 02/23/2025 2:40 AM EDT Emergency [facility] [address] [place] [phone] Discharge Disposition: Home or Self Care from Last 3 Months Immunizations Immunization Administration Dates Next Due Hepatitis B Adult 05/09/2023,12/07/2022,11/09/19 23 INFLUENZA, SPLIT VIRUS, TRIVALENT PF 05/09/2025 Influenza Quadrivalent MDCK Preservative Free IM 07/02/2018,08/02/2016,10/30/2014 [...] F) 05/13/2025 12:49 PM EDT Respiratory Rate 18 05/10/2025 11:20 AM EDT Oxygen Saturation 97% 05/13/2025 12:49 PM EDT Inhaled Oxygen Concentration - - Weight 68 kg (150 lb) 05/04/2025 8:52 PM EDT Height 149.9 cm (4' 11 ) 05/04/2025 8:52 PM EDT Body Mass Index 30.3 05/04/2025 8:52 PM EDT Plan of Treatment Upcoming Encounters Date Type Department Care Team (Late st Contact Info) Description 05/20/2025 1:30 AM EDT Home Care Visit [facility] [address] [place] [phone] Darlin Car RN [address] [place] [address] 05/23/2025 3:00 AM EDT Home Care Visit [facility] [address] [place] [address] Darlin Car RN [address] [place] [address] 05/29/2025 2:00 AM EST Home Care Visit [facility] [address] [place] [address] Darlin Car RN [address] [place] [address] 06/02/2025 1:00 PM EST Follow-Up [facility] Starting Sheet [facility] [address] [place] [address]-, [address] [place] [address] Jaja Huber MD [address] [place] [address] [email or web address] 06/05/2025 1:30 AM EST Home Care Visit [facility] [address] [place] [phone] Darlin Car RN [address] [place] [address] 06/12/2025 2:00 AM EST Home Care Visit [facility] [address] [place] [address] Darlin Car RN [address] [place] [address] 06/19/2025 1:00 AM EST Home Care Visit [facility] [address] [place] [address] Darlin Car RN [address] [place] [address] 06/26/2025 1:00 AM EST Home Care Visit [facility] [address], [place] [phone] Darlin Car RN [address] [place] [address] 07/04/2025 12:30 AM EST Appointment [facility] [address], [place] [phone] Darlin Car RN [address] [place] [phone] [email or web address] Health Maintenance Due Date Last Done Comments DEPRESSION SCREENING 1989 HEPATITIS C SCREENING 1995 HIV ONE-TIME SCREENING (18-65 YEARS) 1995 PAP SMEAR 1998 COLOGUARD 2022 COLONOSCOPY 2022 COLORECTAL CANCER SCREENING 2022 FIT TEST 2022 FOBT 2022 SIGMOIDOSCOPY 2022 VIRTUAL COLONOSCOPY 2022 MAMMOGRAM 12/23/2024 12/23/2022, 06/08/2022, 09/05/2019 COVID-19 VACCINE ( season) 2025 12/30/2024, 05/09/2023, 11/06/2020, Additional history exists LIPID PANEL 12/16/2027 12/15/2022 SCREENING FOR DIABETES 05/09/2028 05/09/2025, 2023 IUD 08/19/2030 08/19/2022 Adult Td,Tdap Booster 07/12/2031 07/12/2021, 010 PNEUMOCOCCAL VACCINES (0-49 years) Aged Out 03/07/2023, 03/07/2010 No longer eligibl e based on patient's age to complete this topic HEPATITIS A VACCINES Aged Out 12/30/2024 No long er eligible based on patient's age to complete this topic SMOKING STATUS SCREENING (Once After 26 Yrs) Completed 02/22/2025 INFLUENZA VACCINE Completed 05/09/2025, , 05/09/2023, Additional history exists HIB VACCINES Aged Out No longer eligi ble based on patient's age to complete this topic MENINGOCOCCAL VACCINES (ACWY) Aged Out No longer eligible based on patient's age to complete this topic MENINGOCOCCAL VACCINES (B) Aged Out N o longer eligible based on patient's age to complete this topic Medical Devices Implanted Type Area Repair Mechanic Device Identifier Shelf Expiration Date Model / Serial / Lot Prosthetic Valve Prosthetic Valve Aorta Description:Aortic valve rep lacement in 2009 pt does not know which type of aortic valve was implanted Device Contraceptive 52mg Iud Mirena - Must Order In Multiples Of 5 - [id number] Implanted:Qty: 1 on 08/19/2022 by Ronald Estrada MD at [facility] N/A: Uterus [facility] 06/22/2024 [id number] / / [id number] Procedures Procedure Name Priority Date/Time Associated Diagnosis Comments PT-INR Routine 05/09/2025 5:24 AM EDT MAGNESIUM Timed 05/09/2025 5:24 AM EDT BASIC METABOLIC PANEL Routine 05/09/2025 5:24 AM EDT CBC Routine 05/09/2025 5:24 AM EDT PT-INR Timed 05/08/2025 9:14 AM EDT PTT Timed 05/08/2025 9:14 AM EDT MAGNESIUM Timed 05/08/2025 5:27 AM EDT BASIC METABOLIC PANEL Routine 05/08/2025 5:27 AM EDT CBC Routine 05/08/2025 5:27 AM EDT PTT STAT 05/08/2025 2:20 AM EDT PTT Timed 05/07/2025 8:28 PM EDT CBC Timed 05/07/2025 1:50 PM EDT PT-INR Routine 05/07/2025 1:50 PM EDT PTT Timed 05/07/2025 1:50 PM EDT DIC SCREEN STAT 05/07/2025 8:26 AM EDT CBC STAT 05/07/2025 8:26 AM EDT PTT Routine 05/07/2025 5:46 AM EDT PT-INR Routine 05/07/2025 5:46 AM EDT MAGNESIUM Timed 05/07/2025 5:46 AM EDT BASIC METABOLIC PANEL Routine 05/07/2025 5:46 AM EDT CBC Routine 05/07/2025 5:46 AM EDT POCT GLUCOSE Routine 05/06/2025 2:02 PM EDT PREPARE RBC STAT 05/06/2025 2:01 PM EDT FIBRINOGEN Routine 05/06/2025 2:00 PM EDT PTT Routine 05/06/2025 2:00 PM EDT PT-INR Routine 05/06/2025 2:00 PM EDT MAGNESIUM Routine 05/06/2025 2:00 PM EDT BASIC METABOLIC PANEL Routine 05/06/2025 2:00 PM EDT CBC Routine 05/06/2025 2:00 PM EDT POCT GLUCOSE Routine 05/06/2025 11:55 AM EDT AIRWAY PLACEMENT Routine 05/06/2025 11:2 5 AM EDT NV LAP,DIAGNOSTIC ABDOMEN 05/06/2025 10:42 AM EDT Pelvic mass PTT Timed 05/06/2025 9:52 AM EDT POCT GLUCOSE Routine 05/06/2025 8:44 AM EDT PT-INR Routine 05/06/2025 5:17 AM EDT CBC Routine 05/06/2025 5:17 AM EDT BASIC METABOLIC PANEL Routine 05/06/2025 5:17 AM EDT PTT Timed 05/06/2025 2:45 AM EDT NON-INSTRUCTOR CREELER CYTOLOGY, NON CSF, NON URINE Routine 05/06/2025 12:00 AM EDT PTT Routine 05/05/2025 9:50 PM EDT PT-INR Timed 05/05/2025 9:50 PM EDT PTT Timed 05/05/2025 9:50 PM EDT PTT STAT 05/05/2025 9:50 PM EDT TTE COMPREHENSIVE STAT 05/05/2025 2:0 7 PM EDT Mitral valve stenosis, unspecified etiology Presence of prosthetic heart valve PT-INR Routine 05/05/2025 12:49 PM EDT CBC Routine 05/05/2025 12:49 PM EDT HCG (TUMOR MARKER) Routine 05/05/2025 8: 54 AM EDT INHIBIN A & B, TUMOR MARKER Routine 05/05/2025 8:54 AM EDT ESTRADIOL Routine 05/05/2025 8:54 AM EDT AFP (NON-MATERNAL SPECIMENS) Routine 05/05/2025 8:54 AM EDT LDH Routine 05/05/2025 8:54 AM EDT CARCINOEMBRYONIC ANTIGEN (CEA) Routine 05/05/2025 8:54 AM EDT CA-19-9 Routine 05/05/2025 8:54 AM EDT PT-INR Routine 05/05/2025 8:54 AM EDT CBC Routine 05/05/2025 8:54 AM EDT PT-INR STAT 05/05/2025 1:01 AM EDT CBC STAT 05/05/2025 1:01 AM EDT US PELVIS TRANSABDOMINAL PLUS TRANSVAGINAL Routine 05/04/2025 10:35 PM EDT TYPE AND SCREEN (ABO,RH,ANTIBODY SCREEN) STAT 05/04/2025 9:34 PM EDT PT-INR STAT 05/04/2025 9:34 PM EDT LIPASE STAT 05/04/2025 9:34 PM EDT LFTS (HEPATIC PANEL) STAT 05/04/2025 9:34 PM EDT BASIC METABOLIC PANEL STAT 05/04/2025 9:34 PM EDT MAGNESIUM STAT 05/04/2025 9:34 PM EDT CBC AND DIFFERENTIAL STAT 05/04/2025 9:34 PM EDT ECG 12-LEAD STAT 05/04/2025 9:29 PM EDT Hold Specimen In Blood Bank (No Testing Performed) STAT 05/04/2025 5:06 PM EDT HUMAN EPIDIDYMIS PROTEIN 4, BLOOD STAT 05/04/2025 5:06 PM EDT CBC AND DIFFERENTIAL STAT 05/04/2025 5:06 PM EDT PT-INR STAT 05/04/2025 5:06 PM EDT CA-125 STAT 05/04/2025 5:[address] ABDOMEN/PELVIS WITH CONTRAST Routine 05/04/2025 3:16 PM EDT LIPASE STAT 05/04/2025 1:40 PM EDT LFTS (HEPATIC PANEL) STAT 05/04/2025 1:40 PM EDT HCG, SERUM QUALITATIVE STAT 1:40 PM EDT BASIC METABOLIC PANEL STAT 05/04/2025 1:40 PM EDT CBC AND DIFFERENTIAL STAT 05/04/2025 1:40 PM EDT URINE SEDIMENT STAT 05/04/2025 1:19 PM EDT URINALYSIS W/REFLEX URINE CULTURE STAT 05/04/2025 1:19 PM EDT COVID PANDEMIC RESPIRATORY VIRAL ORDER (PRO) STAT 02/22/2025 11:01 PM EDT RAPID GROUP A STREP SCREEN STAT 02/22/2025 11:01 PM EDT from Last 3 Months Results * (ABNORMAL) PT-INR (05/09/2025 5:24 AM EDT) Only the most recent of12 resultswithin the time period is included. PT 15.2(H) 10.0 - 13.0 sec [facility] INR 1.3(H) 0.9 - 1.1 [facility] Blood 05/09/2025 5:24 AM EDT 05/09/2025 6:12 AM EDT Leslie Perez PA-C LAB BLOOD ORDERABLES Final Result Performing Organization Address City/State/[facility] Co de Phone Number [facility] [address] [place] [address] * (ABNORMAL) CBC (05/09/2025 5:24 AM EDT) Only the most recent of10 resultswithin the time period is included. WBC 4.64 4.00 - 11.00 K/uL [facility] RBC 3.41(L) 4.00 - 5.20 M/uL [facility] HGB 10.4(L) 12.0 - 16.0 g/dL [facility] HCT 32.3(L) 36.0 - 46.0 % [facility] PLT 316 150 - 450 K/uL [facility] MCV 94.7 80.0 - 100.0 fL [facility] MCH 30.5 27.0 - 31.0 pg [facility] MCHC 32.2 32.0 - 36.0 g/dL [facility] RDW 14.3 11.5 - 14.5 % [facility] MPV 9.0 8.4 - 12.0 fL [facility] NRBC 0.00 0.00 /100 WBCs [facility] ABSOLUTE NRBC 0.00 0.00 K/uL [facility] Blood 05/09/2025 5:24 AM EDT 05/09/2025 6:12 AM EDT Jaja Huber MD LAB BLOOD ORDERABLES Final R esult Performing Organization Address City/[facility]/ZIP Co de Phone Number [facility] [address] [place] [address] * Magnesium (05/09/2025 5:24 AM EDT) Only the most recent of5 resultswithin the time period is included. MAGNESIUM 2.0 1.7 - 2.6 mg/dL [facility] Blood 05/09/2025 5:24 AM EDT 05/09/2025 6:12 AM EDT Leslie VELAZQUEZ-C LAB BLOOD ORDERABLES Final Result Performing Organization Address [facility]/[place] de Phone Number [facility] [address] [address] * Basic metabolic panel (05/09/2025 5:24 AM EDT) Only the most recent of7 resultswithin the time period is included. SODIUM 139 136 - 145 mmol/L [facility] POTASSIUM 3.9 3.4 - 5.1 mmol/L [facility] CHLORIDE 105 98 - 107 mmol/L [facility] CO2 24 22 - 31 mmol/L [facility] BUN 9 6 - 23 mg/dL [facility] CREATININE 0.50 0.50 - 1.20 mg/dL [facility] GLUCOSE 87 70 - 100 mg/dL [facility] CALCIUM 9.1 8.8 - 10.7 mg/dL [facility] EGFR 116 >59 mL/min/1.7 3m2 [facility] Comment:Estimated glomerular filtration rate calculated using the CKD-EPI refit equation. ANION GAP 10 7 - 17 mmol/L [facility] Blood 05/09/2025 5:24 AM EDT 05/09/2025 6:12 AM EDT Leslie Cristobal Perez PA-C LAB BLOOD ORDERABLES Final Result Performing Organization Address [facility] Co de Phone Number [facility] [address] [place] [address] * (ABNORMAL) PTT (05/08/2025 9:14 AM EDT) Only the most recent of11 resultswithin the time period is included. APTT 74.7(H) 24.0 - 37.5 sec [facility] Comment:Emicizumab (Hemlibra ) treatment can result in falsely lowered aPTT test results. Blood 05/08/2025 9:14 AM EDT 05/08/2025 9:19 AM EDT Jaja Huber MD LAB BLOOD ORDERABLES Final R esult Performing Organization Address [facility] Co de Phone Number [facility] [address] [place] [address] * (ABNORMAL) DIC screen (05/07/2025 8:26 AM EDT) PT 12.3 10.0 - 13.0 sec [facility] INR 1.1 0.9 - 1.1 [facility] APTT 27.9 24.0 - 37.5 sec [facility] Comment:Emicizumab (Hemlibra ) treatment can result in falsely lowered aPTT test results. FIBRINOGEN 774(H) 200 - 400 mg/dL [facility] Blood 05/07/2025 8:26 AM EDT 05/07/2025 8:30 AM EDT Leslie Perez PA-C LAB BLOOD ORDERABLES Final Result Performing Organization Address City/[facility] Co de Phone Number [facility] [address] [address] * (ABNORMAL) POCT Glucose (05/06/2025 2:02 PM EDT) Only the most recent of3 resultswithin the time period is included. Glucose, POCT 166(H) 70 - 100 mg/dL [facility] 05/06/2025 2:02 PM EDT 05/06/2025 2:04 PM EDT Jaja Huber MD POINT OF CARE TEST ORDERABLE S Final Result [facility] [address] [place] [address] * Prepare RBC, 2 Units (05/06/2025 2:01 PM EDT) Product Code [id number] 05/06/2025 2:01 PM EDT [facility] Unit Number [id number] 05/06/20 2:01 PM EDT [facility] ABO of Unit O 05/06/2025 2:01 PM EDT [facility] Rh of Unit POS 05/06/2025 2:01 PM EDT [facility] Crossmatch Interpretation Compatible 05/06/2025 8:29 AM EDT [facility] Product Status No Longer Ready 05/06 2:01 PM EDT [facility] Expiration Date/Time [id number] 05/06/2025 2:01 PM EDT [facility] Blood Type Barcode 5100 05/06/2025 2:01 PM EDT [facility] Unit Volume 300 mL 05/06/2025 2:01 PM EDT [facility] Product Code [id number] 05/06/2025 2:01 PM EDT [facility] Unit Number [id number] 05/06/20 2:01 PM EDT [facility] ABO of Unit O 05/06/2025 2:01 PM EDT [facility] Rh of Unit POS 05/06/2025 2:01 PM EDT [facility] Crossmatch Interpretation Compatible 05/06/2025 8:29 AM EDT [facility] Product Status No Longer Ready 05/06 2:01 PM EDT [facility] Expiration Date/Time [id number] 05/06/2025 2:01 PM EDT [facility] Blood Type Barcode 5100 05/06/2025 2:01 PM EDT [facility] Unit Volume 300 mL 05/06/2025 2:01 PM EDT [facility] us Eryn Marcos CRNA BLOOD BANK PRODUCT ORD ERABLES Final Result Performing Organization Address City/[facility]/ZIP Co de Phone Number [facility] [address] [place] [phone] * (ABNORMAL) Fibrinogen (05/06/2025 2:00 PM EDT) FIBRINOGEN 749(H) 200 - 400 mg/dL [facility] Blood 05/06/2025 2:00 PM EDT 05/06/2025 2:05 PM EDT us Jaja Huber MD LAB BLOOD ORDERABLES Final R esult Performing Organization Address City/[facility] Co de Phone Number [facility] [address] [place] [address] * ANES ETT DOUBLE LUMEN - AIRWAY LDA (05/06/2025 11:25 AM EDT) Narrative Eryn Marcos CRNA - 05/06/2025 11:25 AM EDT Eryn Marcos CRNA 05/06/2025 11:50 AM Airway Placement Procedure Note: Patient was not difficult to intubate. Procedure performed by: fellow/resident/LYNDA and anesthesiologist Anesthesiologist: Jovana Bunn MBBS, MD Fellow/Resident/PROFESSOR IN FAMILY STUDIES: Eryn Marcos CRNA Airway procedure initiated at:05/06/2025 11:25 AM and ended at 05/06/2025 11:25 AM. Personal Protective Equipment: Mask: surgical mask Eye Protection: eye shield Gloves: gloves and double gloves Mask Ventilation: Quality: not attempted Airway Placement: Technique: video laryngoscopy Rapid sequence induction: yes Details: Blade type: Glidescope Blade size: Mac S3 Video view: grade 1 Video Laryngoscopy was: elective Number of attempts: 1 ETT type: cuffed ETT size: 7.0 ETT depth at teeth: 21 ETT cuff inflation volume: 7 Bite Block: soft and molar Bite Block placement time: 05/06/2025 11:25 AM Outcomes: Evidence of dental injury? no Complications observed? no Notes: Eyes thoroughly closed and covered with eye tape prior to instrumentation of airway. RSI Glidescope gently placed (padded blade) MAC3 blade Gr 1 view on video and direct view. ETT gently advanced and placed without issue. No gastric contents observed. + bilateral clear lung sounds. us Jovana AGUERO MD [place] ANESTHESIA Fin al Result * Non-Starting Sheet Tank Operator Cytology (05/06/2025 12:00 AM EDT) Results\Interpreta tion NON-DIAGNOSTIC SPECIMEN. [facility] CYTOLOG[facility] Final Diagnosis Abundant blood. [facility] CYTOLOG[facility] Notes and Recommendations NOTE: Insufficient cellular material for evaluation. Appropriate follow-up is recommended. [facility] CYTOLOG[facility] Total Slides TotSlide1 [facility] CYTOLOG[facility] Procedure Comments ProcThinPrep (non-Starting Sheet Tank Operator) - [facility] CYTOLOGY Report Accession No: [id number] Date: 1975 Sex: F [facility] Department of Pathology [address] [place] [address] CLIA License No.: [id number] Shoe Dyer: Jack Clark MD, PhD Physician: JAJA HUBER MD Procedure Date: 05/06/2025 Extension Work Instructor: KADEN Resendez(ASCP) Pathologist: Debbie Merritt M.D. PERITONEAL WASHINGS FINAL CYTOLOGIC INTERPRETATION INTERPRETATION: NON-DIAGNOSTIC SPECIMEN. DIAGNOSIS: Abundant blood. NOTES AND RECOMMENDATIONS: NOTE: Insufficient cellular material for evaluation. Appropriate follow-up is recommended. CLINICAL DATA History: Pelvic mass GROSS DESCRIPTION 20 cc dark red fluid. MATERIALS Total slides: 1 1 ThinPrep By his/her signature below, the senior physician certifies that he/she personally conducted a microscopic examination of the described specimen(s) and rendered or confirmed the diagnosis (es) related thereto. Final Diagnosis by Debbie Merritt M.D., Electronically signed on Friday May 09, 2025 at 05:38:55PM [facility] CYTOLOGY Conversion Type (Peritoneum) 05/06/2025 05/06/2025 us Jaja Huber MD CYTOLOGY ORDERABLES Edited R esult - Final [facility] CYTOLOG[facility] * TTE COMPREHENSIVE (05/05/2025 2:07 PM EDT) Left Ventricle Internal Diameter End Diastole 50 37 - 52 mm Interventricular Septum Thickness 10 6 - 11 mm Height 150 cm Left Ventricle Internal Diameter End Systole 40 <35 mm Left Ventricular Posterior Wall Thickness 8 6 - 11 mm Ascending Aorta Diameter 33 <36 mm Weight 68 kg Raw LV EF% 36 % Body Surface Area 1.63 m2 Left Atrial Volume Index 39 16 - 34 mL/m2 Right Ventricle Peak Systolic Pressure 28 mmHg Ejection Fraction 51 50 - 75 % Systolic BP 99 mmHg Diastolic BP 87 mmHg Aortic Valve Area 1.0 cm2 Mitral Valve Area Pressure Half Time Eq 2.3 cm2 Left Ventricle Ea Lateral Wave Speed 9.1 cm/s Aortic Valve Area 1.0 cm2 Mitral Valve Peak Gradient 15 mmHg MV E/E' Tissue Velocity Lateral 16.70 Right Ventricle Pulse Doppler S Wave 10.2 >=9.5 cm/s Aortic Valve Peak Velocity 2.7 m/s Mitral Valve Mean Gradient 7 mmHg Aortic Valve Peak Gradient 30 mmHg Aortic Valve Mean Gradient 17 mmHg Relative Wall Thickness 0.32 0.22 - 0.42 Left Ventricle indexed to BSA 97.1 g/m2 Left Ventricle Diastolic Volume 91 46 - 106 mL Left Ventricle Diastolic Volume Index 56 29 - 61 mL/m2 Left Ventricle Systolic Volume 39 14 - 42 mL Left Ventricle Systolic Volume Index 24 8 - 24 mL/m2 Left Ventricular Outflow Tract Velocity 0.9 m/s Left Ventricle E Wave Speed 152.0 cm/s Left Ventricle A Wave Speed 175.0 cm/s MV E/A ratio 0.9 Left Ventricle Ea Septal Wave Speed 5.3 cm/s MV E/e' septal 28.68 Left Ventricle E/e' Average 22.7 Mitral Valve Deceleration Time 327 ms Left Atrial Volume 64 mL Left Atrial Volume Index by Height 43 mL/m Aortic Valve Prosthetic Peak Gradient 30 mmHg Aortic Valve Prosthetic Mean Gradient 17 mmHg Left Ventricular Outflow Tract Diameter 2.0 cm LVOT VTI REST 16.1 cm Left Ventricular Outflow Tract Cross Sectional Area 3.1 cm2 Aortic Valve Time Velocity Integral 49.3 cm Aortic Valve Area Index 0.6 cm2/m2 MGB CV ECHO AV AORTIC VALVE AREA INDEX BY BSA (PEAK) 0.6 cm2/m2 AoV Area Index by Height 0.0 cm Aortic Valve Area Index by Height Squared 0.0 Aortic Valve Dimensionless Index 0.33 Left Ventricular Outflow Tract Stroke Volume 51 mL Left Ventricular Outflow Tract Stroke Volume Index 31 >35 mL/m2 Ascending Aorta Index 20 mm/m2 Asc Aorta CSA Index by Height 5.70 cm2/m Mitral Valve Prosthetic Peak Gradient 15 mmHg Mitral Valve Prosthetic Mean Gradient 7 mmHg Mitral Valve Pressure Half Time 95 ms Tricuspid Valve Prosthetic Peak Gradient 17 mmHg Tricuspid Valve Peak Gradient 17 mmHg Tricuspid Valve Peak Velocity 2.1 m/s Right Atrium Pressure Estimated 10 mmHg Right Ventricle to Right Atrium Pressure Gradient 18 mmHg Right Ventricle Peak Systolic Pressure (Assuming RAP 10) 28 mmHg MGB CV ECHO TV RVSP (ASSUMING RAP OF 5) 23 mmHg RVSP (Exclusive of RAP) 18 mmHg MGB CV AV DIMENSIONLESS INDEX (PEAK) - STRESS ECHO DOBUT - REST 0.33 MGB CV AV DIMENSIONLESS INDEX (VTI) - STRESS ECHO DOBUT - REST 0.33 Ascending Aorta Index 20 mm Ascending Aorta Diameter 20 mm AO ASC DIAM BSA INDEX 20.25 Echo E/Ea 28.68 TR pk grad 2.1 mmHg Right Ventricle Estimated PA Pressure 27.31 mmHg Mitral Valve Gradient HR 73 bpm Anatomical Region Laterality Modality [facility] Narrative 05/05/2025 4:09 PM EDT Left ventricular systolic function is at the lower limits of normal. The LV ejection fraction is 50-55% Normal right ventricular systolic function. There is a mechanical prosthesis in the aortic valve (per clinical report), which is well-seated. The aortic valve peak prosthetic velocity is 2.7 m/s. The aortic valve peak and mean prosthetic gradients are 30 mmHg and 17 mmHg respectively. Mild mitral stenosis. The mitral valve peak and mean gradients are 15 mmHg and 7 mmHg respectively at 73 bpm. The RV systolic pressure was calculated at 28 mmHg (using TR peak velocity of 2.1 m/s and assuming an RA pressure of 10 mmHg). Left Ventricle The left ventricle is normal in size. There is normal wall thickness. Left ventricular systolic function is at the lower limits of normal. The LV ejection fraction is 50-55% (visually estimated). There are no wall motion abnormalities. Right Ventricle The right ventricle is normal in size. There is normal right ventricular systolic function. RV S' wave is 10.2 cm/s (normal: >= 9.5 cm/s). Left Atrium The left atrium is mildly dilated. The left atrial volume index by BSA is 39 mL/m2. Right Atrium The right atrium is dilated. The IVC is normal in size with normal inspiratory collapse. Mitral Valve There is mild mitral valve thickening. There is mild mitral stenosis. The mitral valve peak and mean gradients are 15 mmHg and 7 mmHg respectively at 73 bpm. There is mild mitral regurgitation. Tricuspid Valve There is no obvious structural abnormality. There is mild tricuspid regurgitation. The RV systolic pressure was calculated at 28 mmHg (using TR peak velocity of 2.1 m/s and assuming an RA pressure of 10 mmHg). Aortic Valve There is a mechanical prosthesis in the aortic valve (per clinical report), which is well-seated. The aortic valve peak prosthetic velocity is 2.7 m/s. The aortic valve peak and mean prosthetic gradients are 30 mmHg and 17 mmHg respectively. There is no aortic regurgitation. There is trace to mild paravalvular regurgitation. The visualized portions of the thoracic aorta appear normal in size. Pulmonic Valve There is no obvious structural abnormality. There is trace pulmonic regurgitation. Pericardium There is no pericardial effusion. General Findings The image quality was fair (3). Comparison Findings There are no prior [facility] studies for comparison. us Jaja Huber MD CV ECHO ORDERABLES Final Res ult * Inhibin A & B, tumor marker (05/05/2025 8:54 AM EDT) INHBN A TUMOR ANTELMO. 9.5 pg/mL [facility] Comment: (NOTE) REFERENCE VALUE <98 (Premenopausal) <5.0 (Postmenopausal) ADDITIONAL INFORMATION This test has been modified from the senior it architect's instructions. Its performance characteristics were determined by [facility] in a manner consistent with CLIA requirements. This test has not been cleared or approved by the U.S. Food and Drug Administration. The testing method is an immunoenzymatic assay manufactured by [employer]. and performed on the [employer] DxI 800. Values obtained with different assay methods or kits may be different and cannot be used interchangeably. Test results cannot be interpreted as absolute evidence for the presence or absence of malignant disease. Inhibin A values are not interpretable in females for the investigation of malignant disease. INHIBN B, INFERTILITY <10 pg/mL [facility] [place] Comment: (NOTE) REFERENCE VALUE Premenopausal: <108 pg/mL (Follicular) <80 pg/mL (Luteal) Postmenopausal: <12 pg/mL ADDITIONAL INFORMATION The testing method is a manual immunoenzymatic assay manufactured by [employer]. Values obtained with different assay methods or kits may be different and cannot be used interchangeably. If this test is being ordered as a tumor marker, results cannot be interpreted as absolute evidence for the presence or absence of malignant disease. This test was developed and its performance characteristics determined by [facility] in a manner consistent with CLIA requirements. This test has not been cleared or approved by the U.S. Food and Drug Administration. Blood 05/05/2025 8:54 AM EDT 05/05/2025 9:03 AM EDT us Jaja Huber MD LAB BLOOD ORDERABLES Final R esult [facility] [address] [place] [address] * LDH (05/05/2025 8:54 AM EDT) LDH 212 135 - 225 U/L [facility] Blood 05/05/2025 8:54 AM EDT 05/05/2025 9:03 AM EDT us Jaja Huber MD LAB BLOOD ORDERABLES Final R esult [facility] [address] [place] [address] * CA-19-9 (05/05/2025 8:54 AM EDT) CA 19-9 <1 0 - 35 U/mL [facility] Blood 05/05/2025 8:54 AM EDT 05/05/2025 9:03 AM EDT us Jaja Huber MD LAB BLOOD ORDERABLES Final R esult Performing Organization Address City/[facility] Co de Phone Number [facility] [address] [place] [phone] * HCG (tumor marker) (05/05/2025 8:54 AM EDT) BETA HCG <1.0 mIU/mL [facility] ENDOCRINOLOG[facility] Comment: Reference Ranges: Female: Premenopausal, Non: 0-5.0 Postmenopausal: 0-8.0 Blood 05/05/2025 8:54 AM EDT 05/05/2025 9:03 AM EDT us Jaja Huber MD LAB BLOOD ORDERABLES Final R esult Performing Organization Address City/State/[facility] Co de Phone Number [facility]PRODUCT[facility] ENDOCRINOLOG[facility] [address] [place] [phone] * AFP (non-maternal specimens) (05/05/2025 8:54 AM EDT) AFP (NON-MATERNAL) <1.8 0 - 8.3 ng/mL [facility]PRODUCT[facility] ENDOCRINOLOGY Blood 05/05/2025 8:54 AM EDT 05/05/2025 9:03 AM EDT Jaja Huber MD LAB BLOOD ORDERABLES Final R esult Performing Organization Address [facility] Co de Phone Number [facility]OCRINOLOG[facility] [address] [place] [phone] * Estradiol (05/05/2025 8:54 AM EDT) ESTRADIOL 7 pg/mL [facility] ENDOCRINOLOGY Comment: Follicular 27-156 Mid-Cycle 50-308 Luteal 35-223 Post-Menopausal 0-47 , 1st Trimester [phone] , 2nd Trimester [id number] , 3rd Trimester 924[address] This result is quantitatively invalid in patients being treated with fulvestrant(fasolodex). Blood 05/05/2025 8:54 AM EDT 05/05/2025 9:03 AM EDT Jaja Huber MD LAB BLOOD ORDERABLES Final R esult Performing Organization Address [facility] Co de Phone Number [facility] REPRODUCT[facility] ENDOCRINOLOGY [address] [place] [phone] * Carcinoembryonic antigen (CEA) (05/05/2025 8:54 AM EDT) Pathologist [facility] CEA 1.5 0 - 3.7 ng/mL [facility] Comment: CEA REFERENCE RANGE: NON-SMOKERS: < 3.8 ng/mL SMOKERS: < 5.0 ng/mL Blood 05/05/2025 8:54 AM EDT 05/05/2025 9:03 AM EDT us Jaja Huber MD LAB BLOOD ORDERABLES Final R esult Performing Organization Address [facility] Co de Phone Number [facility] [address] [place] [address] * US PELVIS TRANSABDOMINAL PLUS TRANSVAGINAL (05/04/2025 10:35 PM EDT) MGB IMG LOG MARKER COMMENT Please see finalized report. [facility] Anatomical Region Laterality Modality Pelvis, Uterus/Adnexa Ultrasound 05/04/2025 10:3 6 PM EDT Impressions 05/04/2025 11:23 PM EDT 1. Large 7.9 cm heterogeneous mass superior to the uterus with no appreciable internal color Doppler flow. The ovaries were not separately visualized on the provided images. Sonographic findings are highly concerning for ovarian torsion, possibly related to underlying ovarian neoplasm or cystic lesion. 2. Moderate amount of complex pelvic fluid. A clinically significant result was initiated on 05/04/2025 11:20 PM, Message ID [id number]. A clinically significant result was initiated on 05/04/2025 11:22 PM, Message ID [id number]. Narrative 05/04/2025 11:23 PM EDT US PELVIS TRANSABDOMINAL AND TRANSVAGINAL Referring clinician's provided indication for this examination in Epic: Adnexal mass suspected TECHNIQUE: Pelvic Ultrasound Transabdominal performed for global imaging of the pelvis. Pelvic Ultrasound Transvaginal performed for detailed imaging of the endometrium and/or adnexa. COMPARISON: US PELVIS TRANSABDOMINAL PLUS TRANSVAGINAL ; CT ABDOMEN/PELVIS WITH CONTRAST 15:13:00.000 FINDINGS: Perimenopausal Uterus: Size: 9.4 x 5.3 x 4.1 cm. Orientation: anteverted Myometrium: Diffusely heterogeneous with a 0.6 x 0.4 x 0.4 cm fibroid, anterior. Endometrium:Heterogeneous with trace fluid within. IUD appears in appropriate position. Thickness: Approximately 4 mm. Right adnexa: Ovary: Suboptimally visualized. Fallopian tube noted. Left adnexa: Ovary: Suboptimally visualized. Other: Large heterogeneous mass seen superior to the uterus and appears smooth separately from the uterus. The mass demonstrates internal cystic structures and measures approximately 7.9 x 7.4 x 6.7 cm. There is no appreciable color Doppler signal within the imaged mass. Free fluid: Moderate amount of complex fluid with internal echoes within the posterior and anterior cul de sacs and the right and left adnexa. Procedure Note Jl Gutierrez, [facility] - 05/04/2025 US PELVIS TRANSABDOMINAL AND TRANSVAGINAL Referring clinician's provided indication for this examination in Epic:Adnexal mass suspected TECHNIQUE: Pelvic Ultrasound Transabdominal performed for global imagingof the pelvis. Pelvic Ultrasound Transvaginal performed for detailedimaging of the endometrium and/or adnexa. COMPARISON: US PELVIS TRANSABDOMINAL PLUS TRANSVAGINAL ; CTABDOMEN/PELVIS WITH CONTRAST 15:13:00.000 FINDINGS: Perimenopausal Uterus: Size: 9.4 x 5.3 x 4.1 cm. Orientation: anteverted Myometrium: Diffusely heterogeneous with a 0.6 x 0.4 x 0.4 cm fibroid,anterior. Endometrium:Heterogeneous with trace fluid within. IUD appears inappropriate position. Thickness: Approximately 4 mm. Right adnexa: Ovary: Suboptimally visualized. Fallopian tube noted. Left adnexa: Ovary: Suboptimally visualized. Other: Large heterogeneous mass seen superior to the uterus and appearssmooth separately from the uterus. The mass demonstrates internal cysticstructures and measures approximately 7.9 x 7.4 x 6.7 cm. There is noappreciable color Doppler signal within the imaged mass. Free fluid: Moderate amount of complex fluid with internal echoes withinthe posterior and anterior cul de sacs and the right and left adnexa. IMPRESSION: 1. Large 7.9 cm heterogeneous mass superior to the uterus with noappreciable internal color Doppler flow. The ovaries were not separatelyvisualized on the provided images. Sonographic findings are highlyconcerning for ovarian torsion, possibly related to underlying ovarianneoplasm or cystic lesion. 2. Moderate amount of complex pelvic fluid. A clinically significant result was initiated on 05/04/2025 11:20 PM,Message ID [id number]. A clinically significant result was initiated on 05/04/2025 11:22 PM,Message ID [id number]. Brionna Stone PA-C IM US PELVIS Final Result * (ABNORMAL) LFTs (hepatic panel) (05/04/2025 9:34 PM EDT) Only the most recent of2 resultswithin the time period is included. TOTAL PROTEIN 6.2(L) 6.4 - 8.3 g/dL [facility] ALBUMIN 3.3(L) 3.5 - 5.2 g/dL [facility] GLOBULIN 2.9 2.2 - 4.2 g/dL [facility] AST 18 10 - 50 U/L [facility] ALT 25 10 - 50 U/L [facility] ALKALINE PHOSPHATASE 54 35 - 130 U/L [facility] TOTAL BILIRUBIN 0.7 0.0 - 1.0 mg/dL [facility] DIRECT BILIRUBIN 0.2 0.0 - 0.3 mg/dL [facility] Blood 05/04/2025 9:34 PM EDT 05/04/2025 9:47 PM EDT us Brionna Stone PA-C LAB BLOOD ORDERABLES Final Re sult [facility] [address] [place] [address] * (ABNORMAL) CBC and differential (05/04/2025 9:34 PM EDT) Only the most recent of3 resultswithin the time period is included. WBC 9.31 4.00 - 11.00 K/uL [facility] RBC 2.97(L) 4.00 - 5.20 M/uL [facility] HGB 9.3(L) 12.0 - 16.0 g/dL [facility] HCT 27.7(L) 36.0 - 46.0 % [facility] PLT 150 150 - 450 K/uL [facility] MCV 93.3 80.0 - 100.0 fL [facility] MCH 31.3(H) 27.0 - 31.0 pg [facility] MCHC 33.6 32.0 - 36.0 g/dL [facility] RDW 14.5 11.5 - 14.5 % [facility] MPV 9.3 8.4 - 12.0 fL [facility] NRBC 0.00 0.00 /100 WBCs [facility] ABSOLUTE NRBC 0.00 0.00 K/uL [facility] DIFF METHOD Auto [facility] NEUTS 80.1(H) 48.0 - 76.0 % [facility] LYMPHS 11.5(L) 18.0 - 41.0 % [facility] MONOS 7.5 4.0 - 11.0 % [facility] EOS 0.4 0.0 - 5.0 % [facility] BASOS 0.1 0.0 - 1.5 % [facility] % IMMATURE GRANS 0.4 0.0 - 0.9 % [facility] ABSOLUTE NEUTS 7.45 1.92 - 7.60 K/uL [facility] Comment:1.21-5.39 cells/KL i s the reference range for individuals with the Falk null phenotype ABSOLUTE LYMPHS 1.07 0.72 - 4.10 K/uL [facility] ABSOLUTE MONOS 0.70 0.16 - 1.10 K/uL [facility] ABSOLUTE EOS 0.04 0.00 - 0.50 K/uL [facility] ABSOLUTE BASOS 0.01 0.00 - 0.15 K/uL [facility] ABS IMMATURE GRANS 0.04 0.00 - 0.09 K/uL [facility] ABSOLUTE NEUTROPHIL COUNT 7.45 1.92 - 7.60 K/uL [facility] Comment: Automated cell count. Manual ANC may differ if performed. 1.21-5.39 cells/KL is the reference range for individuals with the Falk null phenotype Blood 05/04/2025 9:34 PM EDT 05/04/2025 9:47 PM EDT us Brionna Stone PA-C LAB BLOOD ORDERABLES Final Re sult Performing Organization Address City/State/[facility] Co de Phone Number [facility] [address] [place] [phone] * Type and Screen (ABO,Rh,Antibody Screen) (05/04/2025 9:34 PM EDT) Expiration Date of Sample 05/07/2025 11:59 PM 05/04/2025 11:05 PM EDT [facility] Resulting Agency [facility] ABO Type O 05/04/2025 11:05 PM EDT [facility] Rh Type Positive 05/04/2025 11:05 PM EDT [facility] Antibody Screen Negative 05/04/2025 11:05 PM EDT [facility] Blood 05/04/2025 9:34 PM EDT 05/04/2025 9:50 PM EDT Brionna Stone PA-C BLOOD BANK TEST ORDERABLES Fi nal Result Performing Organization Address City/[facility] Co de Phone Number [facility] [address] [place] [phone] * Lipase (05/04/2025 9:34 PM EDT) Only the most recent of2 resultswithin the time period is included. Pathologist [facility] LIPASE 22 13 - 60 U/L [facility] Comment: Blood 05/04/2025 9:34 PM EDT 05/04/2025 9:47 PM EDT Brionna Stone PA-C LAB BLOOD ORDERABLES Final Re sult Performing Organization Address [facility] Co de Phone Number [facility] [address] [place] [address] * ECG 12-LEAD (05/04/2025 9:29 PM EDT) Ventricular Rate EKG/MIN 100 BPM [facility] Atrial Rate 100 BPM [facility] NV Interval 160 ms [facility] QRS Duration 122 ms [facility] QT Interval 380 ms [facility] QTC Interval 490 ms [facility] P [place] 54 degrees [facility] R Wave [place] 59 degrees [facility] T Wave [place] 75 degrees [facility] 05/04/2025 9:29 PM EDT Narrative [facility] - 05/07/2025 10:23 AM EDT Normal sinus rhythm Right bundle branch block Abnormal ECG No previous ECGs available Brionna Stone PA-C ECG ORDERABLES Final Result Performing Organization Address City/[facility]/ZIP Co de Phone Number [facility] * HUMAN EPIDIDYMIS PROTEIN 4, BLOOD (05/04/2025 5:06 PM EDT) Human epididymis protein 4 54 <=140 pmol/L [facility] Comment: (NOTE) ADDITIONAL INFORMATION The testing method is an electrochemiluminescence assay manufactured by [employer] and performed on the Modular or K[employer] system. Values obtained with different assay methods or kits may be different and cannot be used interchangeably. Test results cannot be interpreted as absolute evidence for the presence or absence of malignant disease. Blood 05/04/2025 5:06 PM EDT 05/04/2025 5:13 PM EDT Ashleigh Warren PA-C LAB BLOOD ORDERABLES Final Result Performing Organization Address [facility] de Phone Number [facility] [address] [place] [address] * Hold Specimen In Blood Bank (05/04/2025 5:06 PM EDT) Expiration Date of Sample 05/07/2025 ,2359 [facility] Resulting Agency [facility] Blood 05/04/2025 5:06 PM EDT 05/04/2025 5:13 PM EDT Ashleigh Warren PA-C BLOOD BANK TEST ORDERABLES Final Result Performing Organization Address [facility] Co de Phone Number [facility] [address] [place], [place] [phone] * CA-125 (05/04/2025 5:06 PM EDT) CA 125 28.5 0 - 35 U/mL [facility] Comment: Test Methodology Yeny [id number] Patient results determined by assays using different manufacturers or methods may not be comparable. Blood 05/04/2025 5:06 PM EDT 05/04/2025 5:13 PM EDT us Ashleigh Warren PA-C LAB BLOOD ORDERABLES Final Result [facility] [address] [place] [address] * CT ABDOMEN/PELVIS WITH CONTRAST (05/04/2025 3:16 PM EDT) MGB IMG LOG MARKER COMMENT ovarian mass vs hemorrhagic cyst vs torsion. free fluid + blood products, indeterminate for carcinomatosis [facility] Anatomical Region Laterality Modality Abdomen, Pelvis Computed Tomogra phy 05/04/2025 3:49 PM EDT Impressions 05/04/2025 4:45 PM EDT 1. Heterogeneous, mixed attenuation 9.8 cm anterior pelvic mass, likely ovarian in origin. Recommend pelvic ultrasound for further evaluation as an initial step. Could represent ovarian neoplasm although the extensive inflammation could also be due to a large cyst hemorrhage or torsion. 2. Small volume hemoperitoneum. Peritoneal stranding/nodularity could be carcinomatosis although inflammatory changes could also conceivably have this appearance. 3. Mildly prominent small bowel loops, as well as some fecalization, no sign of high-grade obstruction. A clinically significant result was initiated on 05/04/2025 4:42 PM, Message ID [id number]. ATTESTATION: I, Jack Bowers as teaching physician, have reviewed the images for this case and if necessary edited the report originally created by Sophie Merino MD. Narrative 05/04/2025 4:[address] ABDOMEN/PELVIS WITH CONTRAST Referring clinician's provided indication for this examination in Epic: * Abdominal pain, acute, nonlocalized TECHNIQUE: Multidetector-row CT of the abdomen and pelvis was performed after administration of intravenous contrast using tailored dose modulation techniques. Images were reconstructed in the axial, coronal, and sagittal planes. COMPARISON: CT ABDOMEN/PELVIS WITH CONTRAST ; US PELVIS TRANSABDOMINAL PLUS TRANSVAGINAL FINDINGS: Lower Chest: No consolidation or pleural effusions. Dependent and bibasilar atelectasis. Status post aortic valve replacement. Partially imaged median sternotomy wires. Liver: Similar hypodensity adjacent to the falciform ligament, may represent focal fat or benign perfusional change (2:21). Biliary: Noninflamed gallbladder. No biliary ductal dilatation. Spleen: No splenomegaly or focal lesions. Pancreas: No masses or ductal dilatation. Adrenal Glands: No nodules. Kidneys/Ureters: No stones or hydronephrosis. Bowel: No bowel wall thickening. Mildly prominent, fecalized small bowel loops in the left hemiabdomen measuring up to 2.6 cm (3:243, 5:39). Mildly increased gaseous distention of the appendix measuring up to 8 mm (3:308) without secondary signs of appendicitis. Peritoneum/Retroperitoneum: Scattered peritoneal thickening throughout the mesentery (2:48, 49, 54, 64). Prominent nodularity/soft tissue thickening involving the left paracolic gutter measuring up to 2.0 cm (5:36) as well as in the right paracolic gutter (5:34) and possibly in the perihepatic region. Small amount of free liquid in the abdomen with dense components. No pneumoperitoneum. Lymph Nodes: No lymphadenopathy. Pelvic Organs/Bladder: Heterogeneous, mixed attenuation 9.8 x 9.0 x 7.3 cm pelvic mass (2:71, 5:29) with internal 3.3 x 2.7 x 1.5 cm hypoattenuating focus (2:70, 5:29). This lesion exerts mass effect on the mildly distended bladder. IUD appropriately positioned within the endometrium. Uterus displaced to the left. Vessels: Infrarenal aorta mild fusiform dilatation to 2.3 cm. Bones/Soft Tissues: No aggressive bone lesion. Degenerative change. Tiny umbilical hernia containing fat. Procedure Note Jack Bowers MD, MPH - 05/04/2025 CT ABDOMEN/PELVIS WITH CONTRAST Referring clinician's provided indication for this examination in Epic: *Abdominal pain, acute, nonlocalized TECHNIQUE: Multidetector-row CT of the abdomen and pelvis was performedafter administration of intravenous contrast using tailored dosemodulation techniques. Images were reconstructed in the axial, coronal,and sagittal planes. COMPARISON: CT ABDOMEN/PELVIS WITH CONTRAST ; US PELVISTRANSABDOMINAL PLUS TRANSVAGINAL FINDINGS: Lower Chest: No consolidation or pleural effusions. Dependent andbibasilar atelectasis. Status post aortic valve replacement. Partiallyimaged median sternotomy wires. Liver: Similar hypodensity adjacent to the falciform ligament, mayrepresent focal fat or benign perfusional change (2:21). Biliary: Noninflamed gallbladder. No biliary ductal dilatation. Spleen: No splenomegaly or focal lesions. Pancreas: No masses or ductal dilatation. Adrenal Glands: No nodules. Kidneys/Ureters: No stones or hydronephrosis. Bowel: No bowel wall thickening. Mildly prominent, fecalized small bowelloops in the left hemiabdomen measuring up to 2.6 cm (3:243, 5:39). Mildlyincreased gaseous distention of the appendix measuring up to 8 mm (3:308)without secondary signs of appendicitis. Peritoneum/Retroperitoneum: Scattered peritoneal thickening throughout themesentery (2:48, 49, 54, 64). Prominent nodularity/soft tissue thickeninginvolving the left paracolic gutter measuring up to 2.0 cm (5:36) as wellas in the right paracolic gutter (5:34) and possibly in the perihepaticregion. Small amount of free liquid in the abdomen with dense components.No pneumoperitoneum. Lymph Nodes: No lymphadenopathy. Pelvic Organs/Bladder: Heterogeneous, mixed attenuation 9.8 x 9.0 x 7.3 cmpelvic mass (2:71, 5:29) with internal 3.3 x 2.7 x 1.5 cm hypoattenuatingfocus (2:70, 5:29). This lesion exerts mass effect on the mildly distendedbladder. IUD appropriately positioned within the endometrium. Uterusdisplaced to the left. Vessels: Infrarenal aorta mild fusiform dilatation to 2.3 cm. Bones/Soft Tissues: No aggressive bone lesion. Degenerative change. Tinyumbilical hernia containing fat. IMPRESSION: 1. Heterogeneous, mixed attenuation 9.8 cm anterior pelvic mass, likelyovarian in origin. Recommend pelvic ultrasound for further evaluation asan initial step. Could represent ovarian neoplasm although the extensiveinflammation could also be due to a large cyst hemorrhage or torsion. 2. Small volume hemoperitoneum. Peritoneal stranding/nodularity could becarcinomatosis although inflammatory changes could also conceivably havethis appearance. 3. Mildly prominent small bowel loops, as well as some fecalization, nosign of high-grade obstruction. A clinically significant result was initiated on 05/04/2025 4:42 PM,Message ID [id number]. ATTESTATION: I, Jack Bowers as teaching physician, have reviewed theimages for this case and if necessary edited the report originally createdby Sophie Merino MD. us Ashleigh Warren PA-C IMG CT ABD/PELVIS Final Res ult * HCG, serum qualitative (05/04/2025 1:40 PM EDT) HCG, QUALITATIVE Negative Negative IU/L [facility] Blood 05/04/2025 1:40 PM EDT 05/04/2025 1:51 PM EDT Alberto Vasques MD LAB BLOOD ORDERABLES Final Resul t Performing Organization Address [facility] Co de Phone Number [address] [address] * (ABNORMAL) Urinalysis w/reflex Urine Culture (05/04/2025 1:19 PM EDT) COLOR Yellow Yellow [facility] CLARITY Clear [facility] GLUCOSE Negative Negative [facility] BILI Negative Negative [facility] KETONES Negative Negative [facility] SPECIFIC GRAVITY 1.010 1.005 - 1.030 [facility] BLOOD 1+(A) Negative [facility] PH 7.5 5.0 - 8.0 [facility] Protein-UA Negative Negative [facility] NITRITE Negative Negative [facility] Leukocyte esterase, ur Negative Negative [facility] Urine (Urine) 05/04/2025 1:1 9 PM EDT 05/04/2025 1:44 PM EDT Alberto Vasques MD URINE ORDERABLES Final Result Performing Organization Address City/[facility]/ZIP Co de Phone Number [address] [address] * (ABNORMAL) Urine sediment (05/04/2025 1:19 PM EDT) WBC 0-4(A) NONE SEEN /hpf [facility] RBC 3-5(A) NONE SEEN /hpf [facility] URINE EPITHELIAL 0-4(A) NONE SEEN [facility] MUCUS NONE SEEN NONE SEEN /hpf [facility] BACTERIA Trace(A) NONE SEEN /hpf [facility] 05/04/2025 1:19 PM EDT 05/04/2025 1:44 PM EDT us Alberto Vasques MD URINE ORDERABLES Final Result Performing Organization Address [facility] Co de Phone Number [address] [address] * (ABNORMAL) Rapid Group A Strep Screen (02/22/2025 11:01 PM EDT) RAPID STREP SCREEN Positive(A ) Negative [facility] Other (Throat) 02/22/2025 11 :01 PM EDT 02/22/2025 11:08 PM EDT us Manny Castro MD MICROBIOLOGY - NERAL ORDERABLES Final Result Performing Organization Address [facility] de Phone Number [address] [address] * COVID Pandemic Respiratory Viral Order (PRO) (02/22/2025 11:01 PM EDT) Test Ordered Rapid COVID has been ordered [facility] Specimen Source/Description NASAL [facility] SARS-CoV 2 (COVID-19) PCR Not Detected Not Detected [facility] Comment: SARS-CoV-2 not detected Negative results do not preclude SARS-CoV-2 infection and should not be used as the sole basis for patient management decisions. Negative results must be combined with clinical observations, patient history, and epidemiological information. Other (Nasopharyngeal swab) 02/22/2025 11:01 PM EDT 02/22/2025 11:08 PM EDT Manny Castro MD BODY FLUIDS AND S TOOLS ORDERABLES Final Result [facility] [address] [place] [address] from Last 3 Months Insurance [facility] NON NSPG PCP [employer] [facility] NON NSPG PCP [employer] NON NSPG PCP S[employer] [facility] NON NSPG PCP [employer] [facility] NON NSPG PCP [employer] NON NSPG PCP [employer] [facility] NON NSPG PCP [facility] [facility] NON NSPG PCP [employer] NON NSPG PCP [facility] [employer] Advance Directives For more information, please contact: [phone] (9AM - 5PM [facility], Monday-Monday) * Full Code (Latest Code Status on File) Date Activated Date Inactivated Comments 08/19/2022 9:51 AM Question Answer Comments Code Status Confirmed With: Patient Care Teams Cad Administrator Relationship Specialty Start Date End Date Clara Shearer MD [address] [place] [phone] PCP - General Family Medicine 02/16/22 Additional Source Comments The information contained in this document represents components of the legal health record. It is not the complete legal health record.[facility]
--- OUTSIDE RECORDS SUMMARY | 2025-05-16 16:55 | XMS_ITS | Encounter Summary ---
Author Organization [facility] Address [address] [place] [address] Phone Care Team Providers Care Procurement Accountant Name Role Phone Clara Shearer MD Primary Care Provider [phone] Encounter Details Date Type Department Care Team (Late st Contact Info) Description 05/12/2025 Episode Documentatio n Update [facility] [address] [place] [address] Social History Tobacco Use Types Packs/Day Years [...] Visit [facility] [address], [place] [phone] Darlin Car RN [facility] [place] [address] 05/23/2025 3:00 AM EDT Home Care Visit [facility] [address] [place] [address] Darlin Car RN [address] [place] [address] [email or web address] 05/29/2025 2:00 AM EST Home Care Visit [facility] [address] [place] [address] Darlin Car RN [address] [place] [phone] 06/02/2025 1:00 PM EST Follow-Up [facility] Asset Manager Oncology [address] [place] [address], [address] [place] [address] Jaja Huber MD [address] [place], [place] [id number] [id number] [email or web address] 06/05/2025 1:30 AM EST Home Care Visit [facility] [address] [place] [address] Darlin Car RN [address] [place] [phone] [email or web address] 06/12/2025 2:00 AM EST Home Care Visit [facility] [address] [place] [phone] Darlin Car RN [address] [place] [address] 06/19/2025 1:00 AM EST Home Care Visit [facility] [address] [place] [address] Darlin Car RN [address] [place] [phone] 06/26/2025 1:00 AM EST Home Care Visit [facility] [address] [place] [address] Darlin Car RN [address] [place] [address] 07/04/2025 12:30 AM EST Appointment [facility] [address] [place] [address] Darlin Car RN [address] [place] [address] documented as of this encounter Visit Diagnoses Not on filedocumented in this encounter Care Teams Procurement Accountant Relationship Specialty Start Date End Date Clara Shearer MD [address] [place] [phone] PCP - General Family Medicine 02/16/22 documented as of this encounter Additional Source Comments The information contained in this document represents components of the legal health record. It is not the complete legal health record.[facility]
--- OUTSIDE RECORDS SUMMARY | 2025-05-16 16:55 | XMS_ITS | Clinical Summary ---
Author Organization [employer] Address [address] [facility] [address] [place] [address] Care Team Providers Care Seo Professional Name Role Phone Clara Shearer MD Primary Care Provider [phone] Allergies No known active allergies Medications * This document contains information received from the source organization and may not represent a complete record from that organization. Sodium Fluoride (PreviDent 5000 Plus) 1.1 % cream Apply 1 mg to teeth 3 times daily. 1 g 3 4 Active cetirizine (ZyrTEC) 10 MG tablet TAKE 1 TABLET BY MOUTH EVERY DAY 30 tablet 11 5 Active warfarin (Coumadin) 2 MG tabletIndication [...] EXCEED 2 TABLETS / 24 HOURS Active cyclobenzaprine (Flexeril) 10 MG tabletIndication s:Acute left-sided low back pain without sciatica Take 1 tablet (10 mg) by mouth if needed in the morning, at noon, and at bedtime for muscle spasms for up to [address]. [address] with medication 20 tablet 5 Active tolterodine LA (Detrol LA) 4 MG 24 hr capsule Take 1 capsule (4 mg) by mouth Once per day. 90 capsule 3 5 Active omeprazole (PriLOSEC) [address] capsule Take 1 capsule (20 mg) by mouth before breakfast. Do not crush or chew. 30 capsule 11 5 05/10/20 26 Active polyethylene glycol, PEG, 3350 (MiraLax) 17 GM/SCOOP powderIndication s:Generalized abdominal pain Take 17 g by mouth Once per day for 3 days. 527 g 2 5 05/05/20 25 Active Problems Problem Noted Date Diagnosed Date [...] Moderate mitral valve stenosis - following with records clerk, Dr. Haynes [facility] - Monitor with periodic echo. Adjustment disorder with depressed mood 01/01/20 Assessment & Plan (01/13/2025 5:22 AM EDT): - Seen by integrated behavioral health service clinician today Localized gingival recession 10/31/2024 Chronic headache 05/30/2024 Assessment & Plan (04/13/2025 7:48 PM EDT): - Following with neurologist, [facility], last seen in January 2025 [...] has sleep study which was ordered by records clerk. Patient was referred to sleep medicine specialist [...] PT with minimal improvement - evaluated by [facility] orthopedist in March 2024. MRI [...] PT with minimal improvement - evaluated by [facility] orthopedist in March 2024. MRI in 2023 showed change - pt was seen by spine center provider in September 2024. 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 MRI was ordered and patient was referred to [facility] for injection treatment. - patient has received 3 injection treatments with no improvement - patient was advised to contact [facility] orthopedist to inquire MRI Assessment [...] pancreatitis in November 2022 - following with [facility] GI, last seen in May [...] pancreatitis in November 2022 - following with [facility] GI, last seen in Feb [...] on warfarin - previously prescribed metoprolol by records clerk; no longer on the medication due to hypotension / dizziness - continue following with records clerk, [facility] Dr Haynes - last TTE on 09/19/2023: Left ventricular systolic function was normal. EF 57%. Mechanical prosthetic aortic valve, which is functioning normally. Moderate mitral valve stenosis - continue current treatment plan per cardiology Assessment & Plan (12/30/2024 9:32 AM EDT): - s/p AVR in Feb 2010 - on warfarin - previously prescribed metoprolol by records clerk; no longer on the medication due to hypotension / dizziness - continue following with records clerk, [facility] Dr Haynes - last TTE in January 2022, mild mitral valve stenosis - continue current treatment plan per cardiology Assessment & Plan (05/30/2024 12:22 PM EST): - s/p AVR in Feb 2010 - on warfarin - previously prescribed metoprolol by records clerk; no longer on the medication due to hypotension / dizziness - continue following with records clerk, [facility] Dr Haynes - last TTE in January 2022, mild mitral valve stenosis - continue current treatment plan per cardiology Assessment & Plan (03/19/2023 1:47 PM EDT): - s/p AVR in Feb 2010 - on warfarin - previously prescribed metoprolol by records clerk; no longer on the medication due to hypotension / dizziness - continue following with records clerk, [facility] Dr Haynes - last TTE in January 2022, mild mitral valve stenosis - continue current treatment plan per cardiology Assessment & Plan (11/22/2022 11:35 AM EDT): - s/p AVR in Feb 2010 - on warfarin - previously prescribed metoprolol by records clerk; no longer on the medication due to hypotension / dizziness - continue following with records clerk, [facility] Dr Haynes - last TTE in January 2022, mild mitral valve stenosis - continue current treatment plan per cardiology Chronic anticoagulation 11/22/2022 Assessment & Plan (12/30/2024 9:33 AM EDT): - indication: Aortic valve replacement - medication warfarin - goal INR 2-3 - followed by [facility] anticoagulation clinic - last INR was 2.0 on 03/01/23 - continue current management plan Assessment & Plan (05/30/2024 1:41 PM EST): - indication: Aortic valve replacement - medication warfarin - goal INR 2-3 - followed by [facility] anticoagulation clinic - last INR was 2.0 on 03/01/23 - continue current management plan Assessment & Plan (03/19/2023 1:49 PM EDT): - indication: Aortic valve replacement - medication warfarin - goal INR 2-3 - followed by [facility] anticoagulation clinic - last INR was 2.0 on 03/01/23 - continue current management plan Assessment & Plan (11/22/2022 11:40 AM EDT): - indication: Aortic valve replacement - medication warfarin - goal INR 2-3 - followed by [facility] anticoagulation clinic - last INR [...] polyp, benign -Pt has follow-up appointment with [facility] -Pt is on Coumadin -Pt requested Hysterectomy, pt will follow-up with [facility] with possible hysterectomy in future Assessment & Plan (11/08/2022 4:50 PM EDT): s/p Endometrial Curetting's, polyp, benign -Pt has follow-up appointment with [facility] -Pt is on Coumadin -Pt requested Hysterectomy, pt will follow-up with [facility] with possible hysterectomy in future Cyst of ovary 09/22/2022 Iron deficiency anemia due to chronic blood loss 09/22/2022 Assessment & Plan (05/30/2024 1:41 PM EST): - AUB in a setting of anticoagulation - s/p removal of endometrial polyp, benign - Pt has follow-up appointment with [facility] - Pt is taking Coumadin Assessment & Plan (11/03/2023 12:09 PM EDT): - AUB in a setting of anticoagulation - s/p removal of endometrial polyp, benign -Pt has follow-up appointment with [facility] -Pt is taking Coumadin Assessment & Plan (11/08/2022 4:45 PM EDT): Due to AUB: S/p Endometrial Curetting's, polyp, benign -Pt has follow-up appointment with [facility] -Pt is taking Coumadin Vitamin D deficiency 12/04/2018 Assessment & Plan (12/30/2024 9:34 AM EDT): -continue vitamin D supplement Assessment & Plan (11/03/2023 12:08 PM EDT): -continue vitamin D supplement Presence of subdermal contraceptive implant 09/2014 History of mechanical aortic valve replacement 0 04/07/2015 Assessment & Plan (04/13/2025 7:36 PM EDT): - Quarrying Manager: Dr. Dallas Duran, last seen in December 2023 - s/p AVR for rheumatic disease and aortic regurgitation in Feb 2010 - EKG showed sinus rhythm and RBBB - echocardiogram 08/30/2023 EF 57%. Mechanical aortic valve functioning normally. Moderate mitral valve stenosis. No regurgitation. - Continue warfarin - Continue SBE prophylaxis. Assessment & Plan (12/30/2024 9:32 AM EDT): - Quarrying Manager: Dr. Dallas Duran, last seen in December 2023 - s/p AVR for rheumatic disease and aortic regurgitation in Feb 2010 - EKG showed sinus rhythm and RBBB - echocardiogram 08/30/23 EF 57%. Mechanical aortic valve functioning normally. Moderate mitral valve stenosis. No regurgitation. - Continue warfarin - Continue SBE prophylaxis. Assessment & Plan (05/30/2024 12:22 PM EST): - Quarrying Manager: Dr. Dallas Duran, last seen in December 2023 - s/p AVR for rheumatic disease and aortic regurgitation in Feb 2010 - EKG showed sinus rhythm and RBBB - echocardiogram 08/30/23 EF 57%. Mechanical aortic valve functioning normally. Moderate mitral valve stenosis. No regurgitation. - Continue warfarin - Continue SBE prophylaxis. Assessment & Plan (11/03/2023 12:18 PM EDT): - Quarrying Manager: Dr. Dallas Duran, last seen in Aug 2023 - s/p AVR for rheumatic disease and aortic regurgitation in Feb 2010 - EKG showed sinus rhythm and RBBB - echocardiogram 08/30/23 EF 57%. Mechanical aortic valve functioning normally. Moderate mitral valve stenosis. No regurgitation. - Continue warfarin - Continue SBE prophylaxis. Assessment & Plan (03/19/2023 1:47 PM EDT): - Quarrying Manager: Dr. Dallas Duran, last seen in Jul 2022 - s/p AVR for rheumatic disease and aortic regurgitation in Feb 2010 - EKG showed sinus rhythm and RBBB - echocardiogram JANUARY 2022 nml LVEF 60-65%; mild mitral valve stenosis - Continue aspirin and warfarin, per cardiology. - Continue SBE prophylaxis. Assessment & Plan (11/22/2022 11:37 AM EDT): - Quarrying Manager: Dr. Dallas Duran, last seen in Jul [...] & Plan (04/13/2025 7:36 PM EDT): - Quarrying Manager: Dr. Dallas Duran, last seen in December 2024 - s/p AVR for rheumatic disease and aortic regurgitation due to rheumatic heart disease in Feb 2010 - EKG showed sinus rhythm and RBBB - echocardiogram in Aug 2023, EF 59%. Normally functioning AV. Moderate mitral valve stenosis. - Continue warfarin, per cardiology. - Continue SBE prophylaxis. Assessment & Plan (12/30/2024 9:32 AM EDT): - Quarrying Manager: Dr. Dallas Duran, last seen in December 2023 - s/p AVR for rheumatic disease and aortic regurgitation due to rheumatic heart disease in Feb 2010 - EKG showed sinus rhythm and RBBB - echocardiogram in Aug 2023, EF 59%. Normally functioning AV. Moderate mitral valve stenosis. - Continue warfarin, per cardiology. - Continue SBE prophylaxis. Assessment & Plan (05/30/2024 12:22 PM EST): - Quarrying Manager: Dr. Dallas Duran, last seen in December 2023 - s/p AVR for rheumatic disease and aortic regurgitation due to rheumatic heart disease in Feb 2010 - EKG showed sinus rhythm and RBBB - echocardiogram in Aug 2023, EF 59%. Normally functioning AV. Moderate mitral valve stenosis. - Continue warfarin, per cardiology. - Continue SBE prophylaxis. Assessment & Plan (11/03/2023 12:20 PM EDT): - Quarrying Manager: Dr. Dallas Duran, last seen in Aug 2023 - s/p AVR for rheumatic disease and aortic regurgitation due to rheumatic heart disease in Feb 2010 - EKG showed sinus rhythm and RBBB - echocardiogram in Aug 2023, EF 59%. Normally functioning AV. Moderate mitral valve stenosis. - Continue warfarin, per cardiology. - Continue SBE prophylaxis. Assessment & Plan (11/22/2022 11:36 AM EDT): - Quarrying Manager: Dr. Dallas Duran, last seen in Jul [...] EDT): - 12/03/22 Evaluated and treated at [facility]. WBC 13k, Lipase 247, CT showed pancreatitis. Given IVF and analgesics. - Seen by [facility] GI in December 2022 - MRI on 03/01/23 was normal. - HgbA1C 5.9% - Follow recommendations per GI. Menometrorrhagia 09/22/2022 03/07/2023 Pain in female pelvis 09/22/20222022 Encounters Date Type Department Care Team Description 05/16/2025 Refill [facility] MEDICINE [address] [place] [phone] Clara Shearer MD 05/12/2025 Patient Outreach [address] [address] Clara Shearer MD Transition Of Care (Tcm) (HDF- unscheduled (surgery)) 05/10/2025 Telephone [facility] [address] [place], [place] [phone] Rena Lopez MD 05/02/2025 3:40 PM EDT Office Visit [facility] WALK-IN CENTER [address] [place] [address] Nabil Jesus MD Generalized abdominal pain (Primary Dx); Constipation, unspecified constipation type 05/02/2025 Travel 04/21/2025 Orders Only GENERIC EXTERNAL DATA DEPARTMENT Provider, Generic External Data 04/17/2025 Telephone [facility] MEDICINE [address] [place] [phone] Clara Shearer MD Critical Result 04/17/2025 Orders Only GENERIC EXTERNAL DATA DEPARTMENT Provider, Generic External Data 04/10/2025 Orders Only GENERIC EXTERNAL DATA DEPARTMENT Provider, Generic External Data 04/01/2025 3:45 PM EDT Office Visit [address] [address] Clara Shearer MD Chronic pain of both [...] unspecified headache type 04/01/2025 Travel 03/31/2025 Telephone [facility] MEDICINE [address] [place] [address] Clara Shearer MD chart prep 03/25/2025 Telephone [facility] [address] [place] [address] Clara Shearer MD Paperwork/Forms 03/20/2025 Orders Only GENERIC EXTERNAL DATA DEPARTMENT Provider, Generic External Data 02/21/2025 Orders Only [address] [address] Clara Shearer MD Hematuria, unspecified type (Primary Dx) 2025 Orders Only GENERIC EXTERNAL DATA DEPARTMENT Provider, Generic External Data 02/14/2025 Results Follow-Up [facility] MEDICINE [address] [place] [address] Clara Shearer MD Albumin, Random Urine W/Creatinine, Urinalysis, Complete, with Reflex to Culture 02/13/2025 3:00 PM EDT Office Visit [facility] OPTOMETRY [address] [place] [address] Kenroy, Meliza, OD Presbyopia (Primary Dx); Meibomian gland disease, unspecified laterality 02/13/2025 Travel from Last 3 Months Immunizations Immunization [...] Sign Reading Time Taken Comments Blood Pressure 114/63 05/02/2025 3:22 PM EDT Pulse 85 05/02/2025 3:22 PM EDT Temperature 36.2 C (97.2 F) 05/02/2025 3:22 PM EDT Respiratory Rate 19 05/02/2025 3:22 PM EDT Oxygen Saturation 99% 04/01/2025 3:38 PM EDT Inhaled Oxygen Concentration - - Weight 68.1 kg (150 lb 3.2 oz) 05/02/2025 3:22 P M EDT Height 149 cm (4' 10.66 ) 05/02/2025 3:22 PM EDT Body Mass Index 30.69 05/02/2025 3:22 PM EDT Plan of Treatment Upcoming Encounters Date Type Department Care Team (Late st Contact Info) Description 06/09/2025 2:15 PM EST Office Visit [facility] ADULT DENTAL [address] [place] [address] Olga, Katt [address] [place] [address] Health Maintenance Due Date Last Done Comments [...] Additional history exists SDOH Screening 04/01/2026 04/01/2025 Dental X-Ray: Full Mouth 04/20/2026 04/19/2023, 01/21 Tobacco Screening 05/02/2026 05/02/2025 Mammogram 10/04/2026 10/04/2024, 06/0 08/2022, 12/23/2022, Additional [...] on patient's age to complete this topic Influenza Vaccine Completed 05/09/2025, , 05/09/2023, Additional history exists HIB Vaccines Aged Out [...] Procedure Name Priority Date/Time Associated Diagnosis Comments POCT URINALYSIS DIPSTICK Routine 05/02/2025 3:50 PM EDT Generalized abdominal pain PROTHROMBIN TIME WHOLE BLD POC Routine 04/21/2025 [...] Recently Relevant to Health Maintenance Results * POCT urinalysis dipstick manually resulted (CPT 78615) (05/02/2025 3:50 PM EDT) Color, UA Yellow Clarity, UA Clear Glucose, UA Negative Bilirubin, UA Negative Ketones, UA Negative Spec Grav, UA 1.010 Blood, UA Negative Negative, None Detected pH, UA 5.5 Protein, UA Negative Urobilinogen, UA 0.2 Leukocytes, UA Negative Negative, Rare, Trace Nitrite, UA Negative Negative, None Detected Urine (Urine, Random) 05/02/2025 3:50 PM EDT us Nabil Jesus MD POINT OF CARE TEST ENTER/EDIT OR DERABLES Final Result * (ABNORMAL) PROTHROMBIN TIME WHOLE BLD POC (04/21/2025 4:10 PM EDT) Only the most recent of5 resultswithin the time period is included. Protime 23.0(H) 11.1 - 13.5 sec [facility] 04/21/2025 4:10 PM EDT 04/21/2025 4:12 PM EDT Generic External Data Provider LAB BLOOD ORDERAB LES Final Result Performing Organization Address [facility] de Phone Number [facility] [address] [place] [phone] * (ABNORMAL) ~PT, ~INR - ANTI COAG CLINIC (04/21/2025 4:10 PM EDT) Only the most recent of5 resultswithin the time period is included. Prothrombin Time INR 1.9(H) 0.9 - 1.1 [facility] Comment:METER #: [id number] TERNATIONAL NORMALIZED RATIO (INR) REFERENCE RANGES Reference [...] 4:10 PM EDT 04/21/2025 4:12 PM EDT Generic External Data Provider LAB BLOOD ORDERAB LES Final Result Performing Organization Address [facility] Co de Phone Number [facility] [address] [place] [phone] * (ABNORMAL) Prothrombin Time-INR (04/17/2025 2:48 PM EDT) Prothrombin Time 65.0(H) 10.9 - 12.4 SEC [facility] INTERNATIONAL NORM RATIO 5.7(HH) 0.9 - 1.1 [facility] Comment:RESULTS OF PT/INR CA LLED TO AND READ BACK BY [DUAT]ON 04/17/25 AT 1510 BY KIERAN.INTERNATIONAL NORMALIZED RATIO [...] prosthetic heart valves: 2.5 - 3.5 04/17/2025 2:4 8 PM EDT 04/17/2025 2:48 PM EDT us Generic External Data Provider LAB BLOOD ORDERAB LES Final Result Performing Organization Address City/State/[facility] Co de Phone Number [facility] [address] [place] [address] [phone] * US Retroperitoneal Complete (04/11/2025 9:01 AM EDT) Anatomical Region Laterality Modality Ultrasound 04/11/2025 9:01 AM EDT Narrative 04/11/2025 9:02 AM EDT [place] [address] Ultrasound Report Signed Patient: Thalia Martell MR#: [id number] 2088 : 1975 Acct:[id number] Age/Sex: 50 / F ADM Date: 04/10/25 Loc: [facility] Attending Dr: Clara Shearer MD Ordering Physician: Clara Shearer MD Date of Service: 04/10/25 Procedure(s): US retroperitoneal comp Accession Number(s): [id number] cc: Clara Shearer MD Reason for Exam: hematuria CLINICAL HISTORY: hematuria US Renal Comparison: None provided Findings: Right kidney normal size and echotexture, 10.9 cm length. Left kidney normal size and echotexture, 12.7 cm length. The stna demonstrates mild pelvic fullness bilaterally. It is [...] in OV> 04/11/25901 DD/ 0 TD/TT: 04/11/25900 Inventory Clerk: Procedure Note Donotuseinterpreter, Image - 04/11/2025 [place] [address] Ultrasound Report Signed Patient: Yoel Martell#: [id number] 2088 : 1975Acct:[id number] Age/Sex: 50 / FADM Date: 04/10/25 Loc: .[place] Attending Dr: Clara Shearer MD Ordering Physician: Clara Shearer MD Date of Service: 04/10/25 Procedure(s): US retroperitoneal comp Accession Number(s): [id number] cc: Clara Shearer MD Reason for Exam: hematuria CLINICAL HISTORY: hematuria US Renal Comparison: None provided Findings: Right kidney normal size and echotexture, 10.9 cm length. Left kidney normal size and echotexture, 12.7 cm length. The stna demonstrates mild pelvic fullness bilaterally. It is [...] in OV> 04/11/25901 DD/ 0 TD/TT: 04/11/25900 Inventory Clerk: us Clara Shearer MD IMG US PROCEDURES Edited Result - Final * Vitamin D, 25-Hydroxy, Total, Immunoassay (2025 2:43 PM EDT) Vitamin D 25-OH Total 46.7 >30 ng/mL [facility] Comment: Health Based Reference Values*< 20 ng/mL Xqtounzjr01-70 ng/mL Insufficient> 30 ng/mL Sufficient*Paul LEVIN. N [...] Provider LAB BLOOD ORDERAB LES Final Result [facility] [address] [place] [phone] * Vitamin B12 (Cobalamin) and Folate Panel, Serum (2025 2:43 PM EDT) Vitamin B12 637 200 - 900 pg/mL [facility] Comment:NORMAL 200-900 PG/ML INDETERMINATE 160-199 PG/ML DEFICIENT < 160 PG/ML Folate 11.2 > or = 4.0 ng/mL [facility] Comment:Reference Values:> o r = 4.0 ng/mL< 4.0 ng/mL suggests folate deficiency Methotrexate, aminopterin and folinic acid(leucovorin) are chemotherapeutic agents whose molecularstructures are similar to folate; therefore, the Architectfolate assay cannot be used for patients using these drugs. 2025 2:43 PM EDT 2025 2:43 PM EDT Generic External Data Provider LAB BLOOD ORDERAB LES Final Result Performing Organization Address [facility] Co de Phone Number [facility] [address] [place] [phone] * TSH with Reflex to Free T4 (2025 2:43 PM EDT) Pathologist [facility] TSH reflex Free T4 1.21 0.32 - 4.0 uIU/mL [facility] 2025 2:43 PM EDT 2025 2:43 PM EDT Generic External Data Provider LAB BLOOD ORDERAB LES Final Result Performing Organization Address [facility] Co de Phone Number [facility] [address] [place] [phone] * (ABNORMAL) Lipid Panel with Reflex to Direct LDL (2025 2:43 PM EDT) Triglycerides 143 <150 mg/dL [facility] Comment:Desirable Triglyceri de: less than 150 mg/dLBorderline High Triglyceride 150-199 mg/dLHigh Triglyceride: 200-499 mg/dLVery High Triglyceride: greater than or equal to 5OO mg/dL Cholesterol 197 <200 mg/dL [facility] Comment:Desirable Cholestero l: less than 200 mg/dLBorderline High Cholesterol: 200-239 mg/dLHigh Cholesterol: greater than 239 mg/dL LDL Cholesterol Calculated 117(H) <100 mg/dL [facility] Comment:Desirable LDL: less than 100 mg/dLNear Optimal/Above Optimal LDL: 110- 129 mg/dLBorderline High LDL: 130-159 mg/dLHigh LDL: 160-189 mg/dLVery High LDL: greater than or equal to 190 mg/dL HDL Cholesterol 52 >40 mg/dL [facility] Comment:Desirable HDL: great er than 40 mg/dL Note: This HDL assay may give artificially low results in patients with liver disease. 2025 2:43 PM EDT 2025 2:43 PM EDT us Generic External Data Provider LAB BLOOD ORDERAB LES Final Result [facility] [address] [place] [phone] * Methylmalonic Acid (2025 2:43 PM EDT) Methylmalonic Acid 81 55 - 335 nmol/L [facility] Comment: Serum methylmalonic acid [...] outcomes,such as neural tube defects and intrauterine growthrestriction.[employer] utilized Multi-Modal Decomposition(MMD) analysis to establish first and second trimester-specific MMA reference intervals in , as givenbelow:MMA, First trimester (<13 wks gestation): 58-167 nmol/LMMA, Second trimester (13-23 wks gestation):63-241 nmol/LThis test was developed and its analytical performancecharacteristics have been determined by [employer]. It has not been cleared or approved by theFDA. This assay has been validated pursuant to the CLIAregulations and is used for clinical purposes.THIS TEST WAS PERFORMED AT:[id number] [place] [phone] OMER MD,PHD 2025 2:43 PM EDT 2025 2:43 PM EDT us Generic External Data Provider LAB BLOOD ORDERAB LES Final Result Performing Organization Address [facility]/ZIP Co de Phone Number [facility] [address] [place] [phone] * CBC (2025 2:43 PM EDT) White Blood Count 5.6 4.8 - 10.8 X10*3/uL [facility] Red Blood Count 4.37 4.20 - 5.50 X10*6/uL [facility] Hemoglobin 13.3 12.0 - 16.0 g/dl [facility] Hematocrit 38.8 37.0 - 47.0 % [facility] Mean Corpuscular Volume 88.8 80.0 - 98.0 fL [facility] Mean Corpuscular Hemoglobin 30.4 27.0 - 33.0 pg [facility] Mean Corpuscular HGB Conc 34.3 31.0 - 35.0 g/dl [facility] Red Cell Distribution Width 12.9 11.0 - 16.0 % [facility] Platelet Count 256 160 - 400 X10*3/uL [facility] [facility] Mean Platelet Volume 9.8 9.4 - 12.3 fL [facility] NRBC Pct Auto 0.0 0.0 - 0.2 /100WBC [facility] NRBC Abs Auto 0.000 0.0 - 0.012 X10*3/uL [facility] 2025 2:43 PM EDT 2025 2:43 PM EDT us Generic External Data Provider LAB BLOOD ORDERAB LES Final Result Performing Organization Address [facility] Co de Phone Number [facility] [address] [place] [address] [phone] * Homocysteine (2025 2:43 PM EDT) Homocysteine 5.0 < or = 11.0 umol/L [facility] Comment:Homocysteine is incr eased by functional deficiency offolate or vitamin B12. Testing for methylmalonic aciddifferentiates between these deficiencies. Other causesof increased homocysteine include renal failure, folateantagonists such as methotrexate and phenytoin, andexposure to nitrous oxide.Sarah Muse, et al., [employer] Med. 1999;131(5):331-9.THIS TEST WAS PERFORMED AT:[facility] [place] [id number] GUPTA MD 2025 2:43 PM EDT 2025 2:43 PM EDT us Generic External Data Provider LAB BLOOD ORDERAB LES Final Result Performing Organization Address [facility] Co de Phone Number [facility] [address] [place] [phone] * Hemoglobin A1c (2025 2:43 PM EDT) Hemoglobin A1c 5.7 <6.0 % [facility] Comment:Hemoglobin A1C Refer ence Range Adults: 4.8 - 6.0 % Non diabetic: < 6.0 % Goal: < 7.0 %Additional Action Suggested: > 8.0 %Note: Hemoglobin A1c results are invalid for patients with abnormal amounts of HbF. Blood transfusions may impact the HbA1c concentration in the patient sample. Estimated Average Glucose 117 mg/dL [facility] Comment:eAG = Estimated ave rage glucose which is %A1C expressed asaverage glucose, using the formula of the M9V-ErpzlogMaftfnc Glucose study (ADAG), Diabetes Care, Vol.31,#8,Feb. 2007 2025 2:43 PM EDT 2025 2:43 PM EDT us Generic External Data Provider LAB BLOOD ORDERAB LES Final Result Performing Organization Address [facility]/State/ZIP Co de Phone Number [facility] [address] [place] [address] [phone] * Ferritin (2025 2:43 PM EDT) Ferritin 93 10 - 250 ng/mL [facility] 2025 2:43 PM EDT 2025 2:43 PM EDT us Generic External Data Provider LAB BLOOD ORDERAB LES Final Result [facility] [address] [place] [address] [phone] * (ABNORMAL) Comprehensive Metabolic Panel (2025 2:43 PM EDT) [facility] Sodium 138 135 - 145 mmol/L [facility] Potassium 3.6 3.3 - 5.1 mmol/L [facility] Chloride 108 96 - 108 mmol/L [facility] Carbon Dioxide 23 22 - 29 mmol/L [facility] Anion Gap 11(L) 12 - 20 [facility] Urea Nitrogen (BUN) 13 9 - 16 mg/dL [facility] Creatinine, Serum 0.51 0.5 - 1.4 mg/dL [facility] Estimated Glomerular Filt Rate >60 [facility] Comment:Chronic Kidney Disea se: Estimated GFR < 60 mL/min/1.26f0Rzdywx Kidney Disease: Estimated GFR < 15 mL/min/1.73m2 Glucose 99 60 - 115 mg/dL [facility] Calcium 8.8 8.4 - 10.2 mg/dL [facility] Bilirubin, Total 0.5 0.0 - 1.0 mg/dL [facility] Aspartate Amino Transferase 28 5 - 31 U/L [facility] Alanine Aminotransferase 41(H) 0 - 31 U/L [facility] Total Protein 7.1 6.5 - 8.0 g/dL [facility] Albumin Level 4.2 3.5 - 5.0 g/dL [facility] Alkaline Phosphatase 76 39 - 117 U/L [facility] 2025 2:43 PM EDT 2025 2:43 PM EDT us Generic External Data Provider LAB BLOOD ORDERAB LES Final Result Performing Organization Address [facility]/ZIP Co de Phone Number [facility] [address] [place] [phone] * (ABNORMAL) Urinalysis, Complete, with Reflex to Culture (2025 2:38 PM EDT) Only the most recent of2 resultswithin the time period is included. Color Urine Yellow [facility] Appearance Urine Clear [facility] PH 5.5 5.0 - 9.0 [facility] Glucose Urine UA Negative Negative mg/dL [facility] Urine Blood Moderate (2+)(A) Negative [facility] Specific Burchard - Urine 1.015 1.005 - 1.025 [facility] Urine Protein Negative Neg-Trace mg/dL [facility] Urine Ketones Negative Negative mg/dL [facility] Nitrite Urine Negative Negative [facility] Leukocyte Esterase Urine Negative Negative [facility] RBC Urine 0-2 0 - 2 /HPF [facility] Urine WBC 0-5 0 - 5 /HPF [facility] Urine Squamous Epithelial Cell 0-2 0 - 2 /HPF [facility] Urine Bacteria None Seen None Seen [facility] Hyaline Casts, Urine 0-2 0 - 2 /LPF [facility] Urine 2025 2:38 PM EDT 2025 3:15 PM EDT Narrative [facility] - 2025 3:28 PM EDT Urine, Clean Catch us Clara Shearer MD LAB URINE ORDERABLES Final Resul t Performing Organization Address City/[facility]/ZIP Co de Phone Number [facility] [address] [place] [phone] * Albumin, Random Urine W/Creatinine (02/13/2025 4:15 PM EDT) Creatinine, Urine 84.01 mg/dL [facility] Microalbumin Urine 7.0 mg/L [facility] Microalbum Creatinine Ratio Ur 8.3 <30 ug/mg cr [facility] Comment:Albumin/Creatinine R atio Reference Ranges: Normal: < 30 ug/mg creatinine Microalbuminuria: 30 - 300 ug/mg creatinineClinical Albuminuria: > 300 ug/mg creatinine Urine 02/13/2025 4:15 PM EDT 02/13/2025 5:31 PM EDT us Clara Shearer MD LAB URINE ORDERABLES Final Resul t [facility] [address] [place] [phone] * BI Mammogram Screening Tomosynthesis Bilateral (10/04/2024 3:55 PM EDT) Anatomical Region Laterality Modality Breast Bilateral Mammography 10/04/2024 3:55 PM EDT Narrative 10/13/2024 6:12 PM EDT [address] [place] [address] Mammography Report Signed Patient: Thalia Martell MR#: [id number] : 1975 Acct:[id number] Age/Sex: 49 / F ADM Date: 10/04/24 Loc: MARIE Attending Dr: Clara Shearer MD Ordering Physician: Clara Shearer MD Results: 1Negative Date of Service: 10/04/24 Follow Up: 1 Year From Orig ina Mammogram Procedure(s): MM tomosynthesis screening BI Accession Number(s): [id number] cc: Clara Shearer MD EXAMINATION: MM SCREENING [...] 10/13/24 1809 DD/ 1555 TD/TT: 10/04/24 1608 Inventory Clerk: Procedure Note Donotuseinterpreter, Image - [facility] [address] [place], [place] [address] Mammography Report Signed Patient: Yoel Martell#: [id number] : 1975Acct:[id number] Age/Sex: 49 / FADM Date: 10/04/24 Loc: MARIE Attending Dr: Clara Shearer MD Ordering Physician: Clara Shearer MDResults: 1Negative Date of Service: 10/04/24Follow Up: 1 Year From Orig inal Mammogram Procedure(s): MM tomosynthesis screening BI Accession Number(s): [id number] cc: Clara Shearer MD EXAMINATION: MM SCREENING [...] 06:09 PM EDT RP Dictated By: June Schraedr DO Signed By: <Electronically signed by June Schrader DO in OV> 10/13/24 1809 DD/ 1555 TD/TT: 10/04/24 1608 Inventory Clerk: Clara Shearer MD IMG BI PROCEDURES Edited Result - Final * Hepatitis Panel, General (12/11/2023 4:30 PM EDT) Hepatitis A IgM Nonreactive Nonreactive [facility] Comment:IgM antibodies to HEMPHILL V not detected; does not exclude earlyacute or recovered HAV infection. ~Hepatitis B Surface Antibody REACTIVE Nonreactive [facility] Comment:REACTIVE: > 11.99 mI U/mL Hepatitis B Core Antibody Nonreactive Nonreactive [facility] Hepatitis C Antibody Nonreactive Nonreactive [facility] Comment:Antibodies to HCV no t detected; does not exclude early acuteHCV infection. Hepatitis B Surface Ag Negative Negative [facility] 12/11/2023 4:30 PM EDT 12/11/2023 4:33 PM EDT us Generic External Data Provider LAB BLOOD ORDERAB LES Final Result [facility] [address] [place] [address] [phone] * HIV-1 RNA, Quantitative, Real-Time PCR (12/15/2022 8:09 AM EDT) HIV 1 RNA, QN PCR NOT DETECTED NOT DETECTED copies/mL [employer] [place] [employer] HIV 1 RNA, QN PCR NOT DETECTED NOT DETECTED Log copies/mL [employer] [place] [employer] Comment: This test was performed using Real-Time Polymerase Chain Reaction. Reportable Range: 20 copies/mL to 10,000,000 copies/mL (1.30 log copies/mL to 7.00 log copies/mL). Blood Venous blood specimen / Unknown 12/15/2022 8:09 AM EDT 12/15/2022 8:10 AM EDT Narrative [facility] - 12/23/2022 6:53 PM EDT FASTING:NO FASTING: NO us Yany Cosby ELECTRIC WELDER LAB BLOOD ORDERABLES Final Res ult [address], [place] [address] [employer] [place] [employer] [address] [place] [address] * THINPREP PAP (11/13/2020 4:51 PM EDT) Pathologist [facility] Clinical Information: None given [facility] COMMENT SEE COMMENT FOUNDATI ON [...] along with historic and current clinical information. Structural Steel Equipment Erector : SEE COMMENT [facility] Comment: RK, CT(ASCP) CT screening location: [address] [address] Interpretation/R esult: Negative for intraepithelial lesion or malignancy. [facility] LMP: NONE GIVEN FOUNDATIO N LAB SYSTEM Prev. BX: NONE GIVEN [facility]OUND[facility] LAB SYSTEM Prev. PAP: NONE GIVEN FOUNDATI ON LAB SYSTEM Review Structural Steel Equipment Erector : SEE COMMENT [facility] Comment: BLC,CT(ASCP) CT screening location: [facility] [address] [address] SOURCE: None given [facility]AT[facility] LAB SYSTEM Statement Of Adequacy: SEE COMMENT [facility] Comment: Satisfactory for evaluation. Endocervical/transformation zone component present. Age and/or menstrual status not provided 11/13/2020 4:51 PM EDT Ginette Her NP LAB PATHOLOGY ORDERABLES Final Result Performing Organization Address [facility] Co de Phone Number [facility] [address] * HPV GENOTYPES 16,18/45 (11/13/2020 4:51 PM EDT) HPV 16 RNA NOT DETECTED NOT DETECTED [facility] HPV 18/45 RNA NOT DETECTED NOT DETECTED [facility] Comment: Methodology: Inside Sales Advertising Executive Mediated Amplification The analytical performance characteristics of this assay have been determined by [employer] The modifications have not been cleared or approved by the FDA. This assay has been validated pursuant to the CLIA regulations and is used for clinical purposes. 11/13/2020 4:51 PM EDT Ginette Her NP LAB CYTOLOGY ORDERABLES Final R esult Performing Organization Address [facility] de Phone Number [facility] [address] from Last 3 Months or Most Recently Relevant to Health Maintenance Insurance [facility] 2 DENTAL - HSN PARTIAL (MEDICAID) Care Teams Seo Professional Relationship Specialty Start Date End Date Clara Shearer MD [address] [place] [phone] PCP - General Family Medicine 07/24/18
--- OUTSIDE RECORDS SUMMARY | 2025-05-16 16:55 | XMS_ITS | Encounter Summary ---
Author Organization [employer] Address [address] [facility] 7t [place] [address] Care Team Providers Care Studio Couch Frame Builder Name Role Phone Clara Shearer MD Primary Care Provider [phone] Reason for Visit * Reason Onset Date Comments Nurse Triage 06/05/2023 Encounter Details Date Type Department Care Team ([facility] st Contact Info) Description 06/05/2023 Telephone [facility] MED[facility] [address] [place], [place] [phone] Clara Shearer MD [address] [place], [place] [phone] Nurse Triage Social History Tobacco Use Types [...] 06/05/2023 4:47 PM EST Triage call with [employer] Physician Asst ID [id number] Pt reports headaches which have started 2 [...] to try this. Pt will come to [facility] tomorrow 06/06/23 to be [...] Nausea as well Please contact pt at [phone] Bengali Speaker. documented in this encounter Plan of Treatment Upcoming Encounters Date Type Department Care Team (Late st Contact Info) Description 06/09/2025 2:15 PM EST Office Visit [facility] ADULT DENTAL [address] [place] [address] Jignesh Espinozaaris [address] [place] [address] documented as of this encounter Visit Diagnoses Not on filedocumented in this encounter Additional Health Concerns Assessment Noted Time PHQ-9 Depression Total Score: 5 03/07/20 23 3:27 PM EDT documented as of this encounter Care Teams Studio Couch Frame Builder Relationship Specialty Start Date End Date Clara Shearer MD [address] [place] [address] PCP - General Family Medicine 07/24/18 documented as of this encounter
--- OUTSIDE RECORDS SUMMARY | 2025-05-16 16:55 | XMS_ITS | Encounter Summary ---
Author Organization [facility] Address [address] [place] [address] Phone Care Team Providers Care Sunglass Clip Attacher Name Role Phone Clara Shearer MD Primary Care Provider [phone] Encounter Details Date Type Department Care Team ([facility] st Contact Info) Description 05/14/2025 Telephone [facility] Manufacturing Engineering Technician Oncology [address] [facility] [address], [address] [place], [place] [phone] Leslie Devlin RN [email or web address] Social History Tobacco Use Types Packs/Day Years [...] as of this encounter Progress Notes * Leslie Devlin, EVY - 05/14/2025 7:19 AM EDT 50 y.o. presented to the ED on 05/06 p/w progressive abdominal pain x 4 days. Pt is now s/p TLH/BS, Right oophorectomy, omental biopsy on 05/[address] Huber. Adriana from [facility] calls with concern for hematuria. Per Dr. Huber, I suspect bleeding is vaginal bleeding, she just got therapeutic on coumadin yesterday, but I askedthem to add a UA and urine culture to her next labs to be sure. Can you please place the order and she gave me a fax number if it does work through [employer]- FAX [phone] UA and urine culture for Monday. Order placed and faxed. documented in this encounter Plan of Treatment Upcoming Encounters Date Type Department Care Team (Late st Contact Info) Description 05/20/2025 1:30 AM EDT Home Care Visit [facility] [address] [place] [phone] Darlin Car RN [address] [place] [phone] 05/23/2025 3:00 AM EDT Home Care Visit [facility] [address] [place] [phone] Darlin Car RN [address] [place] [phone] 05/29/2025 2:00 AM EST [facility] [address] [place] [phone] Darlin Car RN [address] [place] [address] 06/02/2025 1:00 PM EST Follow-Up [facility] Manufacturing Engineering Technician Oncology [address] [place], [place] [address], [address] [place] [address] Jaja Huber MD [address] [place] [phone] [email or web address] 06/05/2025 1:30 AM EST Home Care Visit [facility] [address] [place] [phone] Darlin Car RN [address] [place] [address] 06/12/2025 2:00 AM EST Home Care Visit [facility] [address] [place] [phone] Darlin Car RN [address] [place] [address] 06/19/2025 1:00 AM EST Home Care Visit [facility] [address] [place] [phone] Darlin Car RN [address] [place] [address] 06/26/2025 1:00 AM EST Home Care Visit [facility] [address] [place] [phone] Dralin Car RN [address] [place] [address] 07/04/2025 12:30 AM EST Appointment [facility] [address] [place] [phone] Darlin Car RN [address] [place] [address] documented as of this encounter Visit Diagnoses Not on filedocumented in this encounter Care Teams Sunglass Clip Attacher Relationship Specialty Start Date End Date Clara Shearer MD [address] [place] [phone] PCP - General Family Medicine 02/16/22 documented as of this encounter Additional Source Comments The information contained in this document represents components of the legal health record. It is not the complete legal health record.[facility]
--- OUTSIDE RECORDS SUMMARY | 2025-05-16 16:55 | XMS_ITS | Encounter Summary ---
Author Organization [employer] Address [address] [place] [address] [address] [address] Care Team Providers Care Signal Helper Name Role Phone Clara Shearer MD Primary Care Provider [phone] Reason for Visit * Reason Onset Date Comments Letter for School/Work 08/02/2022 Encounter Details Date Type Department Care Team ([facility] st Contact Info) Description 08/02/2022 Telephone [facility] MEDICINE [address] [place] [address] Clara Shearer MD [address] [place] [address] Letter for School/Work Social History Tobacco Use [...] a upcoming procedure on 08-19-22. Fax number [phone] Any question please contact Ambreen at [phone] ext [phone] * Telephone Encounter - Khang Garcia - 08/04/2022 2:41 PM EST Tc from pankaj with [facility] requesting a call regarding message below Please contact pankaj at [phone] * Telephone Encounter - Ronda Mahan LPN - 08/04/2022 2:41 PM EST Kelly, this should be done upstairs we do not do letters regarding medication stop or start. Please discuss with Dr. Shearer on what she wants and you can call [facility] to fax that order/letteror if they will take verbal orders from you that is even easier. * Telephone Encounter - Kelly Campuzano RN - 08/02/2022 3:33 PM EST Pt having procedure (dilation and curettage with hysteroscopy to place mirena) at [facility] 08/19/22. They are requesting a letter stating when pt should stop and restart coumadin (how many days before and after). * Telephone Encounter - Khang Garcia - 08/02/2022 2:48 PM EST Tc from claudia with [facility] O[facility] requesting a letter stating when pt will be stopping medication ( warfarin 2 mg ) prior to OP Please contact claudia at [phone] ext [phone] documented in this encounter Plan of Treatment Upcoming Encounters Date Type Department Care Team (Late st Contact Info) Description 06/09/2025 2:15 PM EST Office Visit [facility] ADULT DENTAL [address] [place], [place] [phone] Olga, Katt [address] [place] [address] documented as of this encounter Visit Diagnoses Not on filedocumented in this encounter Care Teams Signal Helper Relationship Specialty Start Date End Date Clara Shearer MD [address] [place] [address] PCP - General Family Medicine 07/24/18 documented as of this encounter
== END 2025-05-16 15:42 | disposition home or self-care (01) ==
LOC: HO.ACS 15:25
PROVIDERS: PCP Family Medicine; Visit Provider Internal Medicine Medical Oncology
DX: Z79.01 Long term (current) use of anticoagulants (principal)

== ENCOUNTER → 2025-05-16 15:25 | Outpatient (BNVA) | payer OTHER, SELFPAY | PROVIDERS: PCP Family Medicine; Visit Provider Internal Medicine Medical Oncology | DX: Z95.2 Presence of prosthetic heart valve (principal); Z79.01 Long term (current) use of anticoagulants; Z51.81 Encounter for therapeutic drug level monitoring | CPT/HCPCS: 99211 ==

== ENCOUNTER 2025-06-10 10:33 | Outpatient (REF) | payer OTHER, SELFPAY ==
--- NOTE | ~2025-06-10 | XR_ITS ---
EXAMINATION: XR SHOULDER, RIGHT CLINICAL INFORMATION: RT SHOULDER PAIN COMPARISON: None available. TECHNIQUE: AP external rotation, Grashey, scapular Y, and axillary views of the right shoulder. FINDINGS: No acute fracture or dislocation. Glenohumeral and acromioclavicular alignment is anatomic with normal joint space. No abnormal soft tissue calcifications. 0.4 cm nodule in the right upper lung. Similar finding seen on the prior chest x-ray 07/21/2016. XR/XR shoulder RT min 2V IMPRESSION: 1. No acute osseous abnormality. 2. There is a 0.4 cm nodule in the right upper lung. Similar finding seen on the prior chest x-ray 07/21/2016. Recommend chest x-ray for direct comparison. Electronically signed by: Titi Tamayo MD 06/10/2025 02:59 PM [facility]
== END 2025-06-10 10:34 | disposition home or self-care (01) ==
LOC: HO.HHCX 10:33
PROVIDERS: PCP Family Medicine; Visit Provider Family Medicine
DX: M25.511 Pain in right shoulder (principal); G89.29 Other chronic pain
CPT/HCPCS: 73030

== ENCOUNTER 2025-06-11 08:07 | Outpatient (REF) | payer OTHER, SELFPAY ==
[2025-06-11 11:10] LABS: MANUAL DIFF FLAG NO
[2025-06-11 11:27] LABS: Hematocrit 37.7 % (37.0-47.0); Hemoglobin 12.1 g/dl (12.0-16.0); Imm Gran Abs Auto 0.01 X10*3/uL (0.00-0.03); Imm Gran Pct Auto 0.2 % (0.0-0.4); Lymphocytes Absolute Auto 1.1 X10*3/uL (1.2-4.9); Mean Corpuscular HGB Conc 32.1 g/dl (31.0-35.0); Mean Corpuscular Hemoglobin 29.4 pg (27.0-33.0); Mean Corpuscular Volume 91.7 fL (80.0-98.0); NRBC Abs Auto 0.000 X10*3/uL (0.0-0.012); NRBC Pct Auto 0.0 /100WBC (0.0-0.2); Platelet Count 218 X10*3/uL (160-400); Red Blood Count 4.11 X10*6/uL (4.20-5.50); Reticulocytes Absolute 0.130 X10*6/uL (0.026-0.095); White Blood Count 5.0 X10*3/uL (4.8-10.8)
[2025-06-11 12:23] LABS: Alanine Aminotransferase 267 U/L (0-31); Albumin Level 4.2 g/dL (3.5-5.0); Alkaline Phosphatase 119 U/L (39-117); Anion Gap 10 (12-20); Aspartate Amino Transferase 153 U/L (5-31); Blood Urea Nitrogen 12 mg/dL (9-16); Calcium 9.2 mg/dL (8.4-10.2); Carbon Dioxide 24 mmol/L (22-29); Chloride 107 mmol/L (96-108); Estimated Glomerular Filt Rate > 60; Iron 56 mcg/dL (30-160); Percent Iron Saturation 18 % (15-50); Potassium 3.8 mmol/L (3.3-5.1); Sodium 137 mmol/L (135-145); Total Iron Binding Capacity 318 mcg/dL (228-428); Total Protein 7.3 g/dL (6.5-8.0); Unsaturated Iron Binding 262 ug/dL
[2025-06-11 13:57] LABS: Cholesterol 243 mg/dL (<200); Ferritin 92 ng/mL (10-250); HDL Cholesterol 58 mg/dL (>40); Triglycerides 186 mg/dL (<150)
[2025-06-11 14:35] LABS: Reflex LDLD? No
[2025-06-11 14:50] LABS: Folate 9.4 ng/mL (> or = 4.0); Vitamin B12 809 pg/mL (200-900)
== END 2025-06-11 08:08 | disposition home or self-care (01) ==
LOC: HO.HHCL 08:07
PROVIDERS: Internal Medicine Geriatric Medicine; PCP Family Medicine; Visit Provider Family Medicine
DX: Z13.220 Encounter for screening for lipoid disorders (principal); I06.1 Rheumatic aortic insufficiency; R53.83 Other fatigue; L65.9 Nonscarring hair loss, unspecified; E55.9 Vitamin D deficiency, unspecified; R73.03 Prediabetes; I09.9 Rheumatic heart disease, unspecified; Z95.2 Presence of prosthetic heart valve; D64.9 Anemia, unspecified
CPT/HCPCS: 36415; 80053; 80061; 82306; 82607; 82728; 82746; 83036; 83540; 84443; 85025; 85045

== ENCOUNTER 2025-06-12 12:42 | Outpatient (REF) | payer OTHER, SELFPAY ==
--- NOTE | ~2025-06-12 | XR_ITS ---
EXAMINATION: XR CHEST CLINICAL INFORMATION: NODULE FOUND ON RIGHT LUNG AREA COMPARISON: July 21, 2016 TECHNIQUE: PA and lateral views. FINDINGS: 2 mm calcified pulmonary nodule, peripheral right upper hemithorax. No consolidation, pleural effusion or pneumothorax. 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 Heart silhouette size is normal. S-shaped curvature of the thoracolumbar spine and mild multilevel spondylosis. XR/XR chest 2V IMPRESSION: 2 mm granuloma, right lung. Status post median sternotomy likely aortic valve/displacement. Stable chest. Electronically signed by: Dorian Jung MD 06/12/2025 02:09 PM EST
== END 2025-06-12 12:43 | disposition home or self-care (01) ==
LOC: HO.XRAY 12:42
PROVIDERS: PCP Family Medicine; Visit Provider Family Medicine
DX: R91.1 Solitary pulmonary nodule (principal)
CPT/HCPCS: 71046

== ENCOUNTER → 2025-06-12 13:47 | Outpatient (BNV) | payer OTHER, SELFPAY | PROVIDERS: PCP Family Medicine; Visit Provider Radiology Diagnostic Radiology | DX: J84.10 Pulmonary fibrosis, unspecified (principal); Z98.890 Other specified postprocedural states | CPT/HCPCS: 71046 ==

== ENCOUNTER 2025-06-18 08:09 | Outpatient (AMB) | payer OTHER, SELFPAY ==
--- OUTSIDE RECORDS SUMMARY | 2025-06-13 10:15 | XMS_ITS | Encounter Summary ---
Author Organization [facility] Address [address] [place] [address] Phone Care Team Providers Care Lead Oxide Mill Tender Name Role Phone Clara Shearer MD Primary Care Provider [phone] Reason for Visit * Auth/Cert (Routine) Specialty Diagnoses / Procedures Referred By Ron t Referred To Contact Referral ID Status Reason Start Date Expiration Date Visits Re quested Visits Authorized [id number] 1 1 Encounter Details Date Type Department Care Team (Late st Contact Info) Description 06/13/2025 10:15 AM EST Home Care Visit [facility] [address] [place] [phone] Roseanne Marsh, PT [address] [place] [address] [email or web address] PT EVALUATION Social History Tobacco Use Types [...] Info) Description 07/04/2025 10:45 AM EST Follow-Up [facility] Kn[facility] Oncology [address] [place], [place] [address], [address] [place] [address] Jaja Huber MD [address] [facility] [place] [address] [email or web address] documented as of this encounter Visit Diagnoses [...] medication reconciliation as indicated. Pharmacy information: Description: [facility] Problem: - Medication Management Goal: - [...] days of worsening abdominal pain. Transferred to [facility] after pelvic mass found, now s/s total [...] for community distances without AD. 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 FAMILY/CAREGIVE R SUPPORT: Daughter lives with pt [...] SUMMARY: Pt seen for PT evaluation with chief nurse offered, however, pt reporting preference for daughters [...] SN. documented in this encounter Care Teams Lead Oxide Mill Tender Relationship Specialty Start Date End Date Clara Shearer MD [address] [place] [phone] PCP - General Family Medicine 02/16/22 documented as of this encounter Additional Source Comments The information contained in this document represents components of the legal health record. It is not the complete legal health record.[facility]
--- OUTSIDE RECORDS SUMMARY | 2025-06-13 11:00 | XMS_ITS | Encounter Summary ---
Author Organization [facility] Address [address] [place] [address] Phone Care Team Providers Care Chinchilla Farmer Name Role Phone Clara Shearer MD Primary Care Provider [phone] Reason for Visit * Auth/Cert (Routine) Specialty Diagnoses / Procedures Referred By Ron t Referred To Contact Referral ID Status Reason Start Date Expiration Date Visits Re quested Visits Authorized [id number] 1 1 Encounter Details Date Type Department Care Team (Late st Contact Info) Description 06/13/2025 11:00 AM EST Home Care Visit [facility] [address] [place] [address] Darlin Car, RN [address] [place] [address] [email or web address] SN OASIS DISCHARGE VISIT Social History Tobacco [...] Info) Description 07/04/2025 10:45 AM EST Follow-Up [facility] Rn Case Manager Oncology [address] [place], [place] [address], [address] [place] [address] Jaja Huber MD [address] [facility], [facility] [place] [address] [email or web address] documented as of this encounter Visit Diagnoses Not on filedocumented in this encounter Home Health Visit - Care Plan Visit Details Visit Type -SN OASIS DISCHAR GE VISIT Discipline -Senior Care Problems Problem Description Start Date Status Goals [...] Lab Disciplines: All Active Home Health Disciplines, Senior Care 05/10/2025 Active - 1 problem intervention scheduled/document [...] medication reconciliation as indicated. Pharmacy information: Description: [facility] Problem:HH - Medication Management Goal:HH - Safe [...] Instruction Provided: Patient alert and oriented. PRimarily frisian-speaking and daughter present during SNV to translate [...] INR today 3.6, per Kirstin at [facility], to hold coumadin today, then 6mg daily, [...] Please check INR on 06/13/25 RESULTS TO: [place], [phone] THERAPEUTIC RANGE: 2-3 Problem: - Lab Performed [...] Performed documented in this encounter Care Teams Chinchilla Farmer Relationship Specialty Start Date End Date Clara Shearer MD [address] [place] [address] PCP - General Family Medicine 02/16/22 documented as of this encounter Additional Source Comments The information contained in this document represents components of the legal health record. It is not the complete legal health record.[facility]
[2025-06-18 08:18] LABS: Prothrombin Time Whole Bld POC 30.3 sec (11.1-13.5); ~PT, ~INR - Anti Coag Clinic 2.5 (0.9-1.1)
--- OUTSIDE RECORDS SUMMARY | 2025-06-18 08:20 | XMS_ITS | Encounter Summary ---
Author Organization [employer] Address [address] [facility] 7t [place] [address] Care Team Providers Care Spring Salvage Worker Name Role Phone Clara Shearer MD Primary Care Provider [phone] Encounter Details Date Type Department Care Team ([facility] st Contact Info) Description 01/22/2024 Orders Only [facility] MEDICINE [address] [place], [place] [phone] Clara Shearer MD [address] [place], [place] [phone] History of mechanical aortic valve replacement Social [...] Care Team (Late st Contact Info) Description 08/20/2025 2:15 PM EST Office Visit [facility] ADULT DENTAL [address] [place] [address] Katt Espinoza [address] [place] [address] documented as of this encounter Visit Diagnoses Diagnosis History of mechanical aortic valve replacement documented in this encounter Additional Health Concerns Assessment Noted Time PHQ-9 Depression Total Score: 0 10/17/19 24 3:45 PM EDT documented as of this encounter Care Teams Spring Salvage Worker Relationship Specialty Start Date End Date Clara Shearer MD [address] [place] [address] PCP - General Family Medicine 07/24/18 documented as of this encounter
--- OUTSIDE RECORDS SUMMARY | 2025-06-18 08:20 | XMS_ITS | Encounter Summary ---
Author Organization [employer] Address [address] [facility] 7t [place] [address] Care Team Providers Care Cycle Director Name Role Phone Clara Shearer MD Primary Care Provider [phone] Reason for Referral * Imaging (Routine) - Closed Specialty Diagnoses / Procedures Referred By Contac t Referred To Contact Radiology Diagnoses Hematuria, unspecified type Procedures US RENAL BI Clara Shearer MD [address] [place] [address] Phone: tel: fax: [address] [address] Phone: tel: fax: Referral ID Status Reason Start Date Expiration Date Visits Re quested Visits Authorized [id number] Closed 02/21/2025 02/21/2026 1 1 Encounter Details Date Type Department Care Team (Late st Contact Info) Description 02/21/2025 Orders Only [facility] MEDICINE [address] [place], [place] [phone] Clara Shearer MD [address] [place], [place] [phone] Hematuria, unspecified type (Primary Dx) Social History [...] Description 08/20/2025 2:15 PM EST Office Visit [facility] ADULT DENTAL [address] [place] [address] Jignesh Espinozaaris [address] [place] [address] Scheduled Orders Name Type Priority Associated Diagnoses [...] AM EDT Narrative 04/11/2025 9:02 AM EDT [address] [address] Ultrasound Report Signed Patient: Thalia Martell MR#: [id number] 2088 : 1975 Acct:[id number] Age/Sex: 50 / F ADM Date: 04/10/25 Loc: HO.US Attending Dr: Clara Shearer MD Ordering Physician: Clara Shearer MD Date of Service: 04/10/25 Procedure(s): US retroperitoneal comp Accession Number(s): [id number] cc: Clara Shearer MD Reason for Exam: hematuria CLINICAL HISTORY: hematuria US Renal Comparison: None provided Findings: Right kidney normal size and echotexture, 10.9 cm length. Left kidney normal size and echotexture, 12.7 cm length. The business affairs manager demonstrates mild pelvic fullness bilaterally. It [...] in OV> 04/11/25901 DD/ 0 TD/TT: 04/11/25900 Body Joiner: Procedure Note Donotuseinterpreter, Image - 04/11/[address] [address] Ultrasound Report Signed Patient: Yoel Martell#: [id number] 2088 : 1975Acct:[id number] Age/Sex: 50 / FADM Date: 04/10/25 Loc: HO.US Attending Dr: Clara Shearer MD Ordering Physician: Clara Shearer MD Date of Service: 04/10/25 Procedure(s): US retroperitoneal comp Accession Number(s): [id number] cc: Clara Shearer MD Reason for Exam: hematuria CLINICAL HISTORY: hematuria US Renal Comparison: None provided Findings: Right kidney normal size and echotexture, 10.9 cm length. Left kidney normal size and echotexture, 12.7 cm length. The business affairs manager demonstrates mild pelvic fullness bilaterally. It [...] in OV> 04/11/25901 DD/ 0 TD/TT: 04/11/25900 Body Joiner: Clara Shearer MD IMG US PROCEDURES Edited Result - Final documented in this encounter Visit Diagnoses Diagnosis Hematuria, unspecified type- Primary documented in this encounter Additional Health Concerns Assessment Noted Time PHQ-9 Depression Total Score: 17 025 1:38 PM EDT documented as of this encounter Care Teams Cycle Director Relationship Specialty Start Date End Date Clara Shearer MD [address] [place] [address] PCP - General Family Medicine 07/24/18 documented as of this encounter
--- OUTSIDE RECORDS SUMMARY | 2025-06-18 08:21 | XMS_ITS | Encounter Summary ---
Author Organization [employer] Address [address] [facility] 7t [place] [address] Care Team Providers Care Manager Printing Name Role Phone Clara Shearer MD Primary Care Provider [phone] Encounter Details Date Type Department Care Team ([facility] st Contact Info) Description 06/12/2025 Results Follow-Up [facility] MEDICINE [address] [place], [place] [phone] Clara Shearer MD [address] [place] [address] XR Chest 2 Views Social History Tobacco Use Types Packs/Day Years Used Date Smoking Tobacco: Never Passive Smoke Exposure: Never Smokeless Tobacco: Never Alcohol Use Standard Drinks/Week Comments Never 0 (1 standard drink = 0.6 oz pur e alcohol) Depression Answer Date Recorded Patient Health Questionnaire-9 Score 0 06/10/2025 Patient Health Questionnaire-9 Score 0 06/10/2025 Last PHQ-9: Questionnaire Data Not on file 1 08/10/2024 Housing Stability Answer Date Recorded What is [...] Date Recorded Patient Health Questionnaire-2 Score 0 06/10/2025 Internet Access Answer Date Recorded Internet Access [...] Description 08/20/2025 2:15 PM EST Office Visit [facility] ADULT DENTAL [address] [place] [address] Olga, Katt [address] [place] [address] documented as of this encounter Visit Diagnoses Not on filedocumented in this encounter Additional Health Concerns Assessment Noted Time PHQ-9 Depression Total Score: 0 06/10/20 25 9:47 AM EST documented as of this encounter Care Teams Manager Printing Relationship Specialty Start Date End Date Clara Shearer MD [address] [place] [address] PCP - General Family Medicine 07/24/18 documented as of this encounter
--- OUTSIDE RECORDS SUMMARY | 2025-06-18 08:21 | XMS_ITS | Encounter Summary ---
Author Organization [employer] Address [address] [facility] 7t [place] [address] Care Team Providers Care Neck Band Setter Name Role Phone Clara Shearer MD Primary Care Provider [phone] Reason for Referral * Consultation (Routine) - Authorized Specialty Diagnoses / Procedures Referred By Ron brewer Referred To Contact Orthopaedic Surgery Diagnoses Chronic right shoulder pain Clara Shearer MD [address] [place] [address] Phone: tel: fax: [facility] Orthopedics [address] [place] [address] Dr [address] [place] [address] Phone: tel: Referral ID Status Reason Start Date Expiration Date Visits Requested Visits Authorized [id number] Authorized Specialty Services Required 5 06/11/2026 1 1 Encounter Details Date Type Department Care Team (Late st Contact Info) Description 06/11/2025 Orders Only [facility] MEDICINE [address] [place] [address] Clara Shearer MD [address] [place] [address] Chronic right shoulder pain (Primary Dx) Social History Tobacco Use Types [...] Description 08/20/2025 2:15 PM EST Office Visit [facility] ADULT DENTAL [address] [place] [address] Jignesh Espinozaaris [address] [place] [address] Scheduled Referrals Name Type Priority Associated Diagnoses Order Schedule Referral to Orthopaedic Surgery Outpatient Referral Routine Chronic right shoulder pain Expected: 06/11/2025 (Approximate), Expires: 06/11/2026 documented as of this encounter Visit Diagnoses Diagnosis Chronic right shoulder pain- Primary Pain in joint, shoulder region documented in this encounter Additional Health Concerns Assessment Noted Time PHQ-9 Depression Total Score: 0 06/10/20 25 9:47 AM EST documented as of this encounter Care Teams Neck Band Setter Relationship Specialty Start Date End Date Clara Shearer MD [address] [place] [address] PCP - General Family Medicine 07/24/18 documented as of this encounter
--- OUTSIDE RECORDS SUMMARY | 2025-06-18 08:21 | XMS_ITS | Encounter Summary ---
Author Organization [employer] Address [address] [facility] 7t [place] [address] Care Team Providers Care Wet Roaster Name Role Phone Clara Shearer MD Primary Care Provider [phone] Reason for Visit * Reason Comments Med Refill Encounter Details Date Type Department Care Team ([facility] st Contact Info) Description 05/16/2025 Refill [facility] MEDICINE [address] [place], [place] [phone] Clara Shearer MD [address] [place], [place] [phone] Social History Tobacco Use Types Packs/Day Years [...] Description 08/20/2025 2:15 PM EST Office Visit [facility] ADULT DENTAL [address] [place] [address] Olga, Katt [address] [place] [address] documented as of this encounter Visit Diagnoses Not on filedocumented in this encounter Additional Health Concerns Assessment Noted Time PHQ-9 Depression Total Score: 17 025 1:38 PM EDT documented as of this encounter Care Teams Wet Roaster Relationship Specialty Start Date End Date Clara Shearer MD [address] [place] [address] PCP - General Family Medicine 07/24/18 documented as of this encounter
--- OUTSIDE RECORDS SUMMARY | 2025-06-18 08:21 | XMS_ITS | Encounter Summary ---
Author Organization [facility] Address [address] [place] [address] Phone Care Team Providers Care Advanced Manufacturing Engineer Name Role Phone Clara Shearer MD Primary Care Provider [phone] Encounter Details Date Type Department Care Team ([facility] st Contact Info) Description 05/05/2025 Procedure Pass [facility] Echocardiography [address] [place] [address] Social History Tobacco Use Types Packs/Day Years [...] 4:00 PM EDT Kacy Cardoza RN * [place] Suicide Severity Rating Scale (Screener/Recent Self-Report) Question Answer Date of Assessment Author 1. Wish to be (Past 1 Month) No 025 4:00 PM EDT Kacy Riavs RN 2. Non-Specific Active Suici layton Thoughts (Past 1 Month) No 05/05/2025 4:00 PM EDT Corie Rivas RN 6. Suicidal Behavior (Lifetime) No 4:00 PM EDT Kacy Rivas, EVY documented as of this encounter Plan of Treatment Upcoming Encounters Date Type Department Care Team (Late st Contact Info) Description 07/04/2025 10:45 AM EST Follow-Up [facility] End Matcher Oncology [address], [address] [place] [address] Jaja Huber MD [address] [facility], [facility] [place] [address] [email or web address] documented as of this encounter Visit Diagnoses Not on filedocumented in this encounter Care Teams Advanced Manufacturing Engineer Relationship Specialty Start Date End Date Clara Shearer MD [address] [place] [address] PCP - General Family Medicine 02/16/22 documented as of this encounter Additional Source Comments The information contained in this document represents components of the legal health record. It is not the complete legal health record.[facility]
--- OUTSIDE RECORDS SUMMARY | 2025-06-18 08:21 | XMS_ITS | Encounter Summary ---
Author Organization [facility] Address [address] [place] [address] Phone Care Team Providers Care Paper Inspector Name Role Phone Unknown, Unknown Primary Care Provider Clara Thompson MD Primary Care Provider [phone] Clara Shearer MD Primary Care Provider [phone] Encounter Details Date Type Department Care Team (Late st Contact Info) Description 02/24/2018 Procedure Pass [facility], Ct Scan - [address] [address] Social History Tobacco Use Types Packs/Day Years [...] Info) Description 07/04/2025 10:45 AM EST Follow-Up [facility] Rail Director Oncology [address] [place], [place] [address], [address] [place] [address] Jaja Huber MD 75 [facility], [facility] [place] [address] [email or web address] documented as of this encounter Visit Diagnoses Not on filedocumented in this encounter Additional Health Concerns Infection Onset Date Last Indicated Resolved Time CoV-Risk 06/19/2023 06/19/2023 06/30/2023 1:24 AM EST CoV-Risk 02/22/2025 02/22/2025 03/05/2025 1:21 AM EDT documented as of this encounter Care Teams Paper Inspector Relationship Specialty Start Date End Date Unknown, Unknown, MD PCP - General 02/24/18 11/09/20 Clara Shearer MD [address] [place] [address] PCP - General Family Medicine 11/10/20 02/15/22 Clara Shearer MD [address] [place] [address] PCP - General Family Medicine 02/16/22 documented as of this encounter Additional Source Comments The information contained in this document represents components of the legal health record. It is not the complete legal health record.[facility]
--- OUTSIDE RECORDS SUMMARY | 2025-06-18 08:21 | XMS_ITS | Encounter Summary ---
Author Organization [email or web address] Address 75 [facility] 7t [place] [address] Care Team Providers Care Reamer Hand Name Role Phone Clara Shearer MD Primary Care Provider [phone] Reason for Visit * Reason Onset Date Comments Results 06/11/2025 Encounter Details Date Type Department Care Team ([facility] st Contact Info) Description 06/11/2025 Results Follow-Up [facility] MEDICINE [address] [place] [address] Clara Shearer MD [address] [place] [address] XR Shoulder 2+ Views Right Social History Tobacco Use Types Packs/Day Years [...] is your housing situation today? I have nayelorenza martinez 05/22/[address] you [...] Miscellaneous Notes * Telephone Encounter - Sabine Chang RN - 06/11/2025 9:50 AM EST TC placed to the pt with BLS freight car repairer #[id number] to inform of PCP message below indicating shoulder XR results. The pt was informed that the XR was normal and that the pain the pt is experiencing may be due to adhesive capsulitis rather than rotator cuff injury. Pt was agreeable to continuing with PT (referred to [facility] on 04/13) and also having the steroid injection prior. Pt also informed of the small nodule in the upper lung and will have chest x-ray done. Pt advised this can be done at [facility] or [facility]. Pt agreeable and advised that PCP will be informed of this information. ----- Message from Clara Shearer MD sent at 06/11/2025 5:59 AM EST ----- Please inform patient that X-ray of shoulder was normal. Her shoulder pain may be due to adhesive capsulitis, rather than rotator cuff injury. Recommend PT. She might want to have a steroid injection before PT. Please let me know if she is interested in ortho referral. It showed a small nodule in her right upper lung and recommends chest X-ray. Most likely benign. Please inform patient to get chest x-ray done on her convenience. Thank you. ----- Message ----- From: Interface, Ris Results In Sent: 06/10/2025 3:03 PM EST To: Clara Shearer MD documented in this encounter Plan of Treatment Upcoming Encounters Date Type Department Care Team (Late st Contact Info) Description 08/20/2025 2:15 PM EST Office Visit [facility] ADULT DENTAL [address] [place] [address] Olga, Katt [address] [place] [address] documented as of this encounter Visit Diagnoses Not on filedocumented in this encounter Additional Health Concerns Assessment Noted Time PHQ-9 Depression Total Score: 0 06/10/20 25 9:47 AM EST documented as of this encounter Care Teams Reamer Hand Relationship Specialty Start Date End Date Clara Shearer MD [address] [place] [address] PCP - General Family Medicine 07/24/18 documented as of this encounter
--- OUTSIDE RECORDS SUMMARY | 2025-06-18 08:21 | XMS_ITS | Encounter Summary ---
Author Organization [facility] Address [address] [place] [address] Phone Care Team Providers Care Dog Raiser Name Role Phone Unknown, Unknown Primary Care Provider Clara Thompson MD Primary Care Provider [phone] Clara Shearer MD Primary Care Provider [phone] Encounter Details Date Type Department Care Team (Late st Contact Info) Description 11/09/2020 Procedure Pass [facility], Ct Scan - [facility] [address] [place] [address] Social History Tobacco Use Types Packs/Day Years [...] 8:03 PM EDT Marysol Hurt RN * [place] Suicide Severity Rating Scale (Screener/Recent Self-Report) Question Answer Date of Assessment Author 1. Wish to be (Past 1 Month) No 11/09/2020 8:03 PM EDT Marysol Hurt RN 2. Non-Specific Active Suicidal Thoughts (Past 1 Month) No 11/09/2020 8:03 PM EDT Postbrenda, Marysol oh RN 6. Suicidal Behavior (Lifetime) No 11/09/2020 8:03 PM EDT Postema, Marysol oh RN documented as of this encounter Plan of Treatment Upcoming Encounters Date Type Department Care Team (Late st Contact Info) Description 07/04/2025 10:45 AM EST [facility] Game Designer Oncology [address] [facility] [address], [address] [place] [address] Jaja Huber MD 75 [facility], [address] [place] [address] [email or web address] documented as of this encounter Visit Diagnoses Not on filedocumented in this encounter Additional Health Concerns Infection Onset Date Last Indicated Resolved Time CoV-Risk 06/19/2023 06/19/2023 06/30/2023 1:24 AM EST CoV-Risk 02/22/2025 02/22/2025 03/05/2025 1:21 AM EDT documented as of this encounter Care Teams Dog Raiser Relationship Specialty Start Date End Date Unknown, Unknown, MD PCP - General 02/24/18 11/09/20 Clara Shearer MD [address] [place] [address] PCP - General Family Medicine 11/10/20 02/15/22 Clara Shearer MD [address] [place] [address] PCP - General Family Medicine 02/16/22 documented as of this encounter Additional Source Comments The information contained in this document represents components of the legal health record. It is not the complete legal health record.[facility]
--- OUTSIDE RECORDS SUMMARY | 2025-06-18 08:21 | XMS_ITS | Encounter Summary ---
Author Organization [employer] Address 75 [facility] 7t [place] [address] Care Team Providers Care Unit Coordinator Name Role Phone Clara Shearer MD Primary Care Provider [phone] Reason for Visit * Reason Onset Date Comments Results 06/11/2025 Encounter Details Date Type Department Care Team ([facility] st Contact Info) Description 06/11/2025 Telephone [facility] MEDICINE [address] [place], [place] [phone] Clara Shearer MD [address] [place], [place] [phone] Results Social History Tobacco Use Types Packs/Day Years [...] encounter Miscellaneous Notes * Telephone Encounter - Raul Harden - 06/13/2025 3:09 PM EST TC from daughter wanting a return call to discuss Lab results * Telephone Encounter - Sabine Chang RN - 06/12/2025 3:45 PM EST RN spoke to PCP who is going to outreach to [facility] to have a further discussion about pt recent test results * Telephone Encounter - Nabil Coughlin - 06/12/2025 3:36 PM EST Tc from pt returning call back regarding prior message. Contact pt at [phone] * Telephone Encounter - Sabine Chang RN - 06/12/2025 1:28 PM EST Return call placed to [facility] (pt daughter) and a VM was left to call back the office to help clarify pt results * Telephone Encounter - Jose Valencia - 06/11/2025 4:48 PM EST Tc from Daughter (On HIPAA) stating pt received a call regarding results but pt had difficulty understanding and now daughter would like a call back to further process information. Please contact daughter at [phone]. documented in this encounter Plan of Treatment Upcoming Encounters Date Type Department Care Team (Late st Contact Info) Description 08/20/2025 2:15 PM EST Office Visit [facility] ADULT DENTAL [address] [place] [address] Katt Espinoza [address] [place] [address] documented as of this encounter Visit Diagnoses Not on filedocumented in this encounter Additional Health Concerns Assessment Noted Time PHQ-9 Depression Total Score: 0 06/10/20 25 9:47 AM EST documented as of this encounter Care Teams Unit Coordinator Relationship Specialty Start Date End Date Clara Shearer MD [address] [place] [address] PCP - General Family Medicine 07/24/18 documented as of this encounter
--- OUTSIDE RECORDS SUMMARY | 2025-06-18 08:21 | XMS_ITS | Encounter Summary ---
Author Organization [facility] Address [address] [place] [address] Phone Care Team Providers Care Methods Time Analyst Name Role Phone Clara Shearer MD Primary Care Provider Encounter Details Date Type Department Care Team (Late st Contact Info) Description 05/06/2025 Procedure Pass [facility] Periop [address] [place] [address] Social History Tobacco Use Types Packs/Day Years [...] Upcoming Encounters Date Type Department Care Team ([facility] st Contact Info) Description 07/04/2025 10:45 AM EST Follow-Up [facility] Drug Safety Scientist Oncology [address] [place] [address], [address] [place] [address] Jaja Huber MD [address] [place], [place] [phone] [email or web address] documented as of this encounter Visit Diagnoses Not on filedocumented in this encounter Care Teams Methods Time Analyst Relationship Specialty Start Date End Date Clara Shearer MD [address] [place] [address] PCP - General Family Medicine 02/16/22 documented as of this encounter Additional Source Comments The information contained in this document represents components of the legal health record. It is not the complete legal health record.[facility]
--- OUTSIDE RECORDS SUMMARY | 2025-06-18 08:21 | XMS_ITS | Encounter Summary ---
Author Organization [facility] Address [address] [place] [address] Phone Care Team Providers Care Core Winder Machine Operator Name Role Phone Clara Shearer MD Primary Care Provider [phone] Encounter Details Date Type Department Care Team (Late st Contact Info) Description 05/04/2025 Procedure Pass [facility], Ct Scan - [address] [address] Social History Tobacco Use Types Packs/Day Years [...] 4:00 PM EDT Kacy Cardoza RN * [place] Suicide Severity Rating Scale (Screener/Recent Self-Report) Question [...] Info) Description 07/04/2025 10:45 AM EST Follow-Up [facility] Child Support Agent Oncology [address] [place] [address] ASB[address], [address] [place] [address] Jaja Huber MD [address] [facility], [facility] [place] [address] [email or web address] documented as of this encounter Visit Diagnoses Not on filedocumented in this encounter Care Teams Core Winder Machine Operator Relationship Specialty Start Date End Date Clara Shearer MD [address] [place] [address] PCP - General Family Medicine 02/16/22 documented as of this encounter Additional Source Comments The information contained in this document represents components of the legal health record. It is not the complete legal health record.[facility]
--- OUTSIDE RECORDS SUMMARY | 2025-06-18 08:21 | XMS_ITS | Encounter Summary ---
Author Organization [employer] Address [address] [place] [address] 7t [place] [address] Care Team Providers Care Neurology Stroke Physician Name Role Phone Clara Shearer MD Primary Care Provider [phone] Reason for Referral * Imaging (Routine) - Authorized Specialty Diagnoses / Procedures Referred By Contac t Referred To Contact Radiology Diagnoses Transaminitis RUQ pain Procedures US Abdomen Comp w elastography Clara Shearer MD [address] [place] [address] Phone: tel: fax: [address] [address] Phone: tel: fax: Referral ID Status Reason Start Date Expiration Date V isits Requested Visits Authorized [id number] Authorized 06/11/2025 06/11/2026 1 1 Encounter Details Date Type Department Care Team (Late st Contact Info) Description 06/11/2025 Orders Only [facility] MEDICINE [address] [place], [place] [phone] Clara Shearer MD [address] [place] [address] Transaminitis (Primary Dx); RUQ pain Social History Tobacco Use Types Packs/Day Years [...] Description 08/20/2025 2:15 PM EST Office Visit [facility] ADULT DENTAL [address] [place] [address] Jignesh Espinozaaris [address] [place] [address] Scheduled Orders Name Type Priority Associated Diagnoses Orde r Schedule US Abdomen Comp w elastography Imaging Routine Transaminitis RUQ pain Expected: 06/11/2025, Expires: 06/11/2026 Hepatic Function Panel Lab Routine Transaminitis Expected: 06/11/2025 (Approximate), Expires: 06/11/2026 Hepatitis C Antibody with Reflex to HCV, RNA, Quantitative, Real-Time PCR Lab Routine Transaminitis Expected: 06/11/2025 (Approximate), Expires: 06/11/2026 Hepatitis B surface antigen, EIA Lab Routine Transaminitis Expected: 06/11/2025 (Approximate), Expires: 06/11/2026 documented as of this encounter Visit Diagnoses Diagnosis Transaminitis- Primary Nonspecific elevation of levels of transaminase or lactic acid dehydrogenase (LDH) RUQ pain Abdominal pain, right upper quadrant documented in this encounter Additional Health Concerns Assessment Noted Time PHQ-9 Depression Total Score: 0 06/10/20 25 9:47 AM EST documented as of this encounter Care Teams Neurology Stroke Physician Relationship Specialty Start Date End Date Clara Shearer MD [address] [place] [address] PCP - General Family Medicine 07/24/18 documented as of this encounter
--- OUTSIDE RECORDS SUMMARY | 2025-06-18 08:21 | XMS_ITS | Encounter Summary ---
Author Organization [employer] Address 75 [facility] 7t [place] [address] Care Team Providers Care Manager Hospital Name Role Phone Clara Shearer MD Primary Care Provider [phone] Encounter Details Date Type Department Care Team (Latest Contact Info) Description 06/11/2025 Results Follow-Up [facility] MEDICINE [address] [place], [place] [phone] Clara Shearer MD [address] [place] [address] Hemoglobin A1c, Comprehensive Metabolic Panel, Lipid Panel with Reflex to Direct LDL Social History Tobacco Use Types Packs/Day Years [...] Description 08/20/2025 2:15 PM EST Office Visit [facility] ADULT DENTAL [address] [place] [address] Olga, Katt [address] [place] [address] documented as of this encounter Visit Diagnoses Diagnosis Transaminitis- Primary Nonspecific elevation of levels of transaminase or lactic acid dehydrogenase (LDH) documented in this encounter Additional Health Concerns Assessment Noted Time PHQ-9 Depression Total Score: 0 06/10/20 25 9:47 AM EST documented as of this encounter Care Teams Manager Hospital Relationship Specialty Start Date End Date Clara Shearer MD [address] [place] [address] PCP - General Family Medicine 07/24/18 documented as of this encounter
--- OUTSIDE RECORDS SUMMARY | 2025-06-18 08:21 | XMS_ITS | Encounter Summary ---
Author Organization [facility] Address [address] [place] [address] Phone Care Team Providers Care Economic History Teacher Name Role Phone Clara Shearer MD Primary Care Provider [phone] Encounter Details Date Type Department Care Team (Late st Contact Info) Description 12/04/2022 Procedure Pass [facility], Ct Scan - [address] [address] Social History Tobacco Use Types Packs/Day Years [...] Info) Description 07/04/2025 10:45 AM EST Follow-Up [facility] Sulfonation Equipment Operator Oncology [address] [place], [place] [address], [address] [place] [address] Jaja Huber MD [address] [place] [address], [facility] [id number] [email or web address] documented as of this encounter Visit Diagnoses Not on filedocumented in this encounter Additional Health Concerns Infection Onset Date Last Indicated Resolved Time CoV-Risk 06/19/2023 06/19/2023 06/30/2023 1:24 AM EST CoV-Risk 02/22/2025 02/22/2025 03/05/2025 1:21 AM EDT documented as of this encounter Care Teams Economic History Teacher Relationship Specialty Start Date End Date Clara Shearer MD [address] [place] [address] PCP - General Family Medicine 02/16/22 documented as of this encounter Additional Source Comments The information contained in this document represents components of the legal health record. It is not the complete legal health record.[facility]
--- OUTSIDE RECORDS SUMMARY | 2025-06-18 08:21 | XMS_ITS | Encounter Summary ---
Author Organization [employer] Address 75 [facility] 7t [place] [address] Care Team Providers Care Associate Professor Of Library Media Name Role Phone Clara Shearer MD Primary Care Provider [phone] Encounter Details Date Type Department Care Team ([facility] st Contact Info) Description 06/11/2025 Orders Only [facility] MEDICINE [address] [place], [place] [phone] Clara Shearer MD [address] [place], [place] [phone] Chronic right shoulder pain (Primary Dx); Nodule of upper lobe of right lung Social History Tobacco Use Types Packs/Day Years [...] your housing situation today? I have naye martinze 05/22/[address] you li [...] Description 08/20/2025 2:15 PM EST Office Visit [facility] ADULT DENTAL [address] [place] [address] Olga, Katt [address] [place] [address] documented as of this encounter Procedures Procedure Name Priority Date/Time Associated Diagnosis Comments XR CHEST 2 VIEWS Routine 06/12/2025 1:47 PM EST Nodule of upper lobe of right lung documented in this encounter Results * XR Chest 2 Views (06/12/2025 1:47 PM EST) Anatomical Region Laterality Modality Chest Radiographic Darlene ging 06/12/2025 1:47 PM EST Narrative 06/12/2025 2:12 PM EST [address] [address] XRay Report Signed Patient: Thalia Martell MR#: [id number] : 1975 Acct:[id number] Age/Sex: 50 / F ADM Date: 06/12/25 Loc: HO.XRAY Attending Dr: Clara Shearer MD Ordering Physician: Clara Shearer MD Date of Service: 06/12/25 Procedure(s): XR chest 2V Accession Number(s): [id number] cc: Clara Shearer MD Reason for Exam: NODULE FOUND ON RIGHT LUNG AREA EXAMINATION: XR CHEST CLINICAL INFORMATION: NODULE FOUND ON RIGHT LUNG AREA COMPARISON: July 21, 2016 TECHNIQUE: PA and lateral views. FINDINGS: 2 mm calcified pulmonary nodule, peripheral right upper hemithorax. No consolidation, pleural effusion or pneumothorax. 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 Heart silhouette size is normal. S-shaped curvature of the thoracolumbar spine and mild multilevel spondylosis. XR/XR chest 2V IMPRESSION: 2 mm granuloma, right lung. Status post median sternotomy likely aortic valve/displacement. Stable chest. Electronically signed by: Dorian Jung MD 06/12/2025 02:09 PM EST Dictated By: Dorian Cruz MD Signed By: <Electronically signed by Dorian Chau MD in OV> 06/12/25 1409 DD/ 1347 TD/TT: 06/12/25 1350 Accounts Receivable Representative: Procedure Note Donotuseinterpreter, Image - 06/12/[address] [address] XRay Report Signed Patient: Yoel Martell#: [id number] : 1975Acct:[id number] Age/Sex: 50 / FADM Date: 06/12/25 Loc: [facility] Attending Dr: Clara Shearer MD Ordering Physician: Clara Shearer MD Date of Service: 06/12/25 Procedure(s): XR chest 2V Accession Number(s): [id number] cc: Clara Shearer MD Reason for Exam: NODULE FOUND ON RIGHT LUNG AREA EXAMINATION: XR CHEST CLINICAL INFORMATION: NODULE FOUND ON RIGHT LUNG AREA COMPARISON: July 21, 2016 TECHNIQUE: PA and lateral views. FINDINGS: 2 mm calcified pulmonary nodule, peripheral right upper hemithorax. No consolidation, pleural effusion or pneumothorax. 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 Heart silhouette size is normal. S-shaped curvature of the thoracolumbar spine and mild multilevel spondylosis. XR/XR chest 2V IMPRESSION: 2 mm granuloma, right lung. Status post median sternotomy likely aortic valve/displacement. Stable chest. Electronically signed by: Dorian Jung MD 06/12/2025 02:09 PM EST RP Dictated By: Dorian Cruz MD Signed By: <Electronically signed by Dorian Chau MDin OV> 06/12/25 1409 DD/ 1347 TD/TT: 06/12/25 1350 Accounts Receivable Representative: Clara Shearer MD IMG XR PROCEDURES Final Result documented in this encounter Visit Diagnoses Diagnosis Chronic right shoulder pain- Primary Pain in joint, shoulder region Nodule of upper lobe of right lung documented in this encounter Additional Health Concerns Assessment Noted Time PHQ-9 Depression Total Score: 0 06/10/20 9:47 AM EST documented as of this encounter Care Teams Associate Professor Of Library Media Relationship Specialty Start Date End Date Clara Shearer MD [address] [place] [address] PCP - General Family Medicine 07/24/18 documented as of this encounter
--- OUTSIDE RECORDS SUMMARY | 2025-06-18 08:22 | XMS_ITS | Encounter Summary ---
Author Organization [facility] Address [address] [place] [address] Phone Care Team Providers Care Supervisor Assembly Department Name Role Phone Clara Shearer MD Primary Care Provider [phone] Encounter Details Date Type Department Care Team (Late st Contact Info) Description 12/04/2022 Procedure Pass [facility], Ct Scan - [address] [address] Social History Tobacco Use Types Packs/Day Years [...] Info) Description 07/04/2025 10:45 AM EST Follow-Up [facility] Shorthand Teacher Oncology [address] [place], [place] [address], [address] [place] [address] Jaja Huber MD [address] [place] [address], [facility] [id number] [email or web address] documented as of this encounter Visit Diagnoses Not on filedocumented in this encounter Additional Health Concerns Infection Onset Date Last Indicated Resolved Time CoV-Risk 06/19/2023 06/19/2023 06/30/2023 1:24 AM EST CoV-Risk 02/22/2025 02/22/2025 03/05/2025 1:21 AM EDT documented as of this encounter Care Teams Supervisor Assembly Department Relationship Specialty Start Date End Date Clara Shearer MD [address] [place] [address] PCP - General Family Medicine 02/16/22 documented as of this encounter Additional Source Comments The information contained in this document represents components of the legal health record. It is not the complete legal health record.[facility]
--- OUTSIDE RECORDS SUMMARY | 2025-06-18 08:22 | XMS_ITS | Encounter Summary ---
Author Organization [employer] Address [address] [facility] 7t [place] [address] Care Team Providers Care Audit Clerks Supervisor Name Role Phone Clara Shearer MD Primary Care Provider [phone] Reason for Visit * Reason Onset Date Comments Nurse Triage 06/05/2023 Encounter Details Date Type Department Care Team ([facility] st Contact Info) Description 06/05/2023 Telephone [facility] MEDICINE [address] [place], [place] [phone] Clara Shearer MD [address] [place], [place] [phone] Nurse Triage Social History Tobacco Use Types [...] 06/05/2023 4:47 PM EST Triage call with [place] Superintendent Service [place] [id number] Pt reports headaches which have started 2 [...] to try this. Pt will come to [facility] tomorrow 06/06/23 to be seen by [...] Nausea as well Please contact pt at [phone] Slovenian Speaker. documented in this encounter Plan of Treatment Upcoming Encounters Date Type Department Care Team (Late st Contact Info) Description 08/20/2025 2:15 PM EST Office Visit [facility] ADULT DENTAL [address] [place] [address] Jignesh Espinozaaris [address] [place] [address] documented as of this encounter Visit Diagnoses Not on filedocumented in this encounter Additional Health Concerns Assessment Noted Time PHQ-9 Depression Total Score: 5 03/07/20 23 3:27 PM EDT documented as of this encounter Care Teams Audit Clerks Supervisor Relationship Specialty Start Date End Date Clara Shearer MD [address] [place] [address] PCP - General Family Medicine 07/24/18 documented as of this encounter
--- OUTSIDE RECORDS SUMMARY | 2025-06-18 08:22 | XMS_ITS | Encounter Summary ---
Author Organization [employer] Address [address] [facility] 7t [place] [address] Care Team Providers Care Logistics Analyst Name Role Phone Clara Shearer MD Primary Care Provider [phone] Encounter Details Date Type Department Care Team (Late st Contact Info) Description 06/18/2025 Orders Only GENERIC EXTERNAL DATA DEPARTMENT Provider, [...] t he electric, gas, oil or water [employer] threatened to shut off services in your [...] Description 08/20/2025 2:15 PM EST Office Visit [facility] ADULT DENTAL [address] [place] [address] Olga, Katt [address] [place] [address] documented as of this encounter Procedures Procedure Name Priority Date/Time Associated Diagnosis Comments PROTHROMBIN TIME WHOLE BLD POC Routine 06/18/2025 8:15 AM EST ~PT, ~INR - ANTI COAG CLINIC Routine 06/18/2025 8:15 AM EST documented in this encounter Results * (ABNORMAL) PROTHROMBIN TIME WHOLE BLD POC (06/18/2025 8:15 AM EST) Protime 30.3(H) 11.1 - 13.5 sec [facility] 06/18/2025 8:15 AM EST 06/18/2025 8:18 AM EST us Generic External Data Provider LAB BLOOD ORDERAB LES Final Result [facility] [address] [place] [address] [phone] * (ABNORMAL) ~PT, ~INR - ANTI COAG CLINIC (06/18/2025 8:15 AM EST) Prothrombin Time INR 2.5(H) 0.9 - 1.1 [facility] Comment:METER #: [id number] TERNATIONAL NORMALIZED RATIO (INR) REFERENCE RANGES Reference RangeFor patients not on anticoagulant therapy: 0.9 - 1.1INR ranges for oral anticoagulanttherapy:For prevention and treatment of venous thrombosis and pulmonary embolism: 2.0 - 3.0For acute myocardial infarction with aspirin therapy: 2.0 - 3.0For acute myocardial infarction without aspirin therapy: 3.0 - 4.0For patients with mechanical prosthetic heart valves: 2.5 - 3.5 06/18/2025 8:15 AM EST 06/18/2025 8:18 AM EST us Generic External Data Provider LAB BLOOD ORDERAB LES Final Result Performing Organization Address City/State/[facility] Co de Phone Number [facility] [address] [place] [address] [phone] documented in this encounter Visit Diagnoses Not on filedocumented in this encounter Additional Health Concerns Assessment Noted Time PHQ-9 Depression Total Score: 0 06/10/20 25 9:47 AM EST documented as of this encounter Care Teams Logistics Analyst Relationship Specialty Start Date End Date Clara Shearer MD [address] [place] [address] PCP - General Family Medicine 07/24/18 documented as of this encounter
--- OUTSIDE RECORDS SUMMARY | 2025-06-18 08:22 | XMS_ITS | Encounter Summary ---
Author Organization [employer] Address [address] [facility] 7t [place] [address] Care Team Providers Care Certified Ophthalmic Assistant Name Role Phone Clara Shearer MD Primary Care Provider [phone] Reason for Visit * Reason Onset Date Comments Referral 06/13/2025 Encounter Details Date Type Department Care Team ([facility] st Contact Info) Description 06/13/2025 Telephone [facility] MEDICINE [address] [place], [place] [phone] Clara Shearer MD [address] [place], [place] [phone] Referral Social History Tobacco Use Types Packs/Day [...] Telephone Encounter - Sabine Chang RN - 06/16/2025 3:54 PM EST TC from Adriana at [facility] who called to confirm that the pt is capable of being referred to outpatient physical therapy due to good mobility and independence. The pt would need a new referral but was first advised to check with their insurance to see what locations they could be referred to. The pt will inform the office of their choice before the referral is placed. * Telephone Encounter - Nabil Coughlin - 06/16/2025 3:38 PM EST Tc from Adriana at [facility] returning call regarding prior message. Contact pt Adriana at [phone] * Telephone Encounter - Sabine Chang RN - 06/16/2025 2:19 PM EST Return call placed to Roseanne at [facility] and a VM was left to call back the office * Telephone Encounter - Kyle Cox - 06/13/2025 2:49 PM EST Tc from Adriana at [facility] stating pt was referred to in home pt but do to evaluation pt is able to go to a clinic so she is requesting for pt to be referred to outpatient pt Contact at [phone] documented in this encounter Plan of Treatment Upcoming Encounters Date Type Department Care Team (Late st Contact Info) Description 08/20/2025 2:15 PM EST Office Visit [facility] ADULT DENTAL [address] [place] [address] Katt Espinoza [address] [place] [address] documented as of this encounter Visit Diagnoses Not on filedocumented in this encounter Additional Health Concerns Assessment Noted Time PHQ-9 Depression Total Score: 0 06/10/20 25 9:47 AM EST documented as of this encounter Care Teams Certified Ophthalmic Assistant Relationship Specialty Start Date End Date Clara Shearer MD [address] [place] [address] PCP - General Family Medicine 07/24/18 documented as of this encounter
--- OUTSIDE RECORDS SUMMARY | 2025-06-18 08:22 | XMS_ITS | Encounter Summary ---
Author Organization [facility] Address [address] [place] [address] Phone Care Team Providers Care Asphalt Raker Name Role Phone Clara Shearer MD Primary Care Provider [phone] Encounter Details Date Type Department Care Team (Late Contact Info) Description 08/19/2022 Procedure Pass OR Admitting Dept - Virtual Department [address] [place] [address] Social History Tobacco Use Types Packs/Day Years [...] Info) Description 07/04/2025 10:45 AM EST Follow-Up [facility] Filling Hand Oncology [address] [place], [place] [address], [address] [place] [address] Jaja Huber MD [address] [place] [address], [facility]-[address] [place] [address] [email or web address] documented as of this encounter Visit Diagnoses Not on filedocumented in this encounter Additional Health Concerns Infection Onset Date Last Indicated Resolved Time CoV-Risk 06/19/2023 06/19/2023 06/30/2023 1:24 AM EST CoV-Risk 02/22/2025 02/22/2025 03/05/2025 1:21 AM EDT documented as of this encounter Care Teams Asphalt Raker Relationship Specialty Start Date End Date Clara Shearer MD [address] [place] [address] PCP - General Family Medicine 02/16/22 documented as of this encounter Additional Source Comments The information contained in this document represents components of the legal health record. It is not the complete legal health record.[facility]
--- OUTSIDE RECORDS SUMMARY | 2025-06-18 08:22 | XMS_ITS | Encounter Summary ---
Author Organization [facility] Address [address] [place] [address] Phone Care Team Providers Care Endless Steamer Tender Name Role Phone Clara Shearer MD Primary Care Provider [phone] Encounter Details Date Type Department Care Team (Late st Contact Info) Description 06/19/2023 Procedure Pass [facility], Ct Scan - [address] [address] Social History Tobacco Use Types Packs/Day Years [...] 06/19/2023 8:16 AM Wandy Shelby RN * [place] Suicide Severity Rating Scale (Screener/Recent Self-Report) Question [...] Info) Description 07/04/2025 10:45 AM EST Follow-Up [facility] Rubber Mill Tender Oncology [address] [place] [address], [address] [place] [address] Jaja Huber MD [address] [place] [address] [email or web address] documented as of this encounter Visit Diagnoses Not on filedocumented in this encounter Additional Health Concerns Infection Onset Date Last Indicated Resolved Time CoV-Risk 06/19/2023 06/19/2023 06/30/2023 1:24 AM EST CoV-Risk 02/22/2025 02/22/2025 03/05/2025 1:21 AM EDT documented as of this encounter Care Teams Endless Steamer Tender Relationship Specialty Start Date End Date Clara Shearer MD [address] [place] [address] PCP - General Family Medicine 02/16/22 documented as of this encounter Additional Source Comments The information contained in this document represents components of the legal health record. It is not the complete legal health record.[facility]
--- OUTSIDE RECORDS SUMMARY | 2025-06-18 08:22 | XMS_ITS | Encounter Summary ---
Author Organization [facility] Address [address] [place] [address] Phone Care Team Providers Care Singer Songwriter Name Role Phone Clara Shearer MD Primary Care Provider [phone] Encounter Details Date Type Department Care Team (Late st Contact Info) Description 06/19/2023 Procedure Pass [facility], Ct Scan - [address] [address] Social History Tobacco Use Types Packs/Day Years [...] 06/19/2023 8:16 AM Wandy Shelby RN * [place] Suicide Severity Rating Scale (Screener/Recent Self-Report) Question [...] Info) Description 07/04/2025 10:45 AM EST Follow-Up [facility] Materials Research Engineer Oncology [address] [place] [address], [address] [place] [address] Jaja Huber MD [address] [place] [address] [email or web address] documented as of this encounter Visit Diagnoses Not on filedocumented in this encounter Additional Health Concerns Infection Onset Date Last Indicated Resolved Time CoV-Risk 06/19/2023 06/19/2023 06/30/2023 1:24 AM EST CoV-Risk 02/22/2025 02/22/2025 03/05/2025 1:21 AM EDT documented as of this encounter Care Teams Singer Songwriter Relationship Specialty Start Date End Date Clara Shearer MD [address] [place] [address] PCP - General Family Medicine 02/16/22 documented as of this encounter Additional Source Comments The information contained in this document represents components of the legal health record. It is not the complete legal health record.[facility]
--- OUTSIDE RECORDS SUMMARY | 2025-06-18 08:22 | XMS_ITS | Encounter Summary ---
Author Organization [employer] Address [address] [facility] 7t [place] [address] Care Team Providers Care Dynamics Ax Consultant Name Role Phone Clara Shearer MD Primary Care Provider [phone] Reason for Visit * Reason Onset Date Comments rs prophy 05/22/2023 Encounter Details Date Type Department Care Team ([facility] st Contact Info) Description 05/22/2023 Telephone [facility] ADULT DENTAL [address] [place], [place] [phone] Olga, Katt [address] [place] [address] rs prophy Social History Tobacco Use Types [...] Description 08/20/2025 2:15 PM EST Office Visit [facility] ADULT DENTAL [address] [place] [address] Katt Espinoza [address] [place] [address] documented as of this encounter Visit Diagnoses Not on filedocumented in this encounter Additional Health Concerns Assessment Noted Time PHQ-9 Depression Total Score: 5 03/07/20 23 3:27 PM EDT documented as of this encounter Care Teams Dynamics Ax Consultant Relationship Specialty Start Date End Date Clara Shearer MD [address] [place] [address] PCP - General Family Medicine 07/24/18 documented as of this encounter
--- OUTSIDE RECORDS SUMMARY | 2025-06-18 08:22 | XMS_ITS | Encounter Summary ---
Author Organization [employer] Address [address] [facility] [address] [address] Care Team Providers Care Stripping Cutter And Winder Name Role Phone Clara Shearer MD Primary Care Provider [phone] Reason for Referral * Consultation (Routine) - Closed Specialty Diagnoses / Procedures Referred By Contac t Referred To Contact Physical Therapy Diagnoses Right hip pain Chronic right-sided low back pain, unspecified whether sciatica present Clara Shearer MD [address] [place] [address] Phone: tel: fax: AT Physical Therapy - [address] [address] Phone: tel: fax: Referral ID Status Reason Start Date Expiration Date V isits Requested Visits Authorized [id number] Closed Specialty Services Required 11/14/2023 11/13/2024 1 1 Encounter Details Date Type Department Care Team (Late st Contact Info) Description 11/14/2023 Orders Only [facility] MEDICINE [address] [place], [place] [phone] Clara Shearer MD [address] [place], [place] [phone] Right hip pain (Primary Dx); Chronic right-sided [...] Description 08/20/2025 2:15 PM EST Office Visit [facility] ADULT DENTAL [address] [place] [address] Jignesh Espinozaaris [address] [place] [address] Scheduled Referrals Name Type Priority Associated Diagnoses [...] PM EDT Narrative 11/25/2023 8:18 AM EDT [address] [address] XRay Report Signed Patient: Thalia Martell MR#: [id number] 2088 : 1975 Acct:[id number] Age/Sex: 48 / F ADM Date: 11/16/23 Loc: [facility] Attending Dr: Clara Shearer MD Ordering Physician: Clara Shearer MD Date of Service: 11/16/23 Procedure(s): XR thoracic spine 2V Accession Number(s): [id number] cc: Clara Shearer MD EXAMINATION: XR THORACOLUMBAR [...] in OV> 11/25/23 0815 DD/ 1549 TD/TT: Hand Cementer: QUINN Procedure Note Donotuseinterpreter, Image - 11/25/[address] [address] XRay Report Signed Patient: Yoel Martell#: [id number] 2088 : 1975Acct:[id number] Age/Sex: 48 / FADM Date: 11/16/23 Loc: HO.XRAY Attending Dr: Clara Shearer MD Ordering Physician: Clara Shearer MD Date of Service: 11/16/23 Procedure(s): XR thoracic spine 2V Accession Number(s): [id number] cc: Clara Shearer MD EXAMINATION: XR THORACOLUMBAR [...] IMPRESSION: Dorsal spine normal. Dictated By: Easton Cmapos MD Signed By: <Electronically signed by Easton Campos MD inOV> 11/25/23 0815 DD/ 1549 TD/TT: Hand Cementer: QUINN Clara Shearer MD IMG XR PROCEDURES [...] documented as of this encounter Care Teams Stripping Cutter And Winder Relationship Specialty Start Date End Date Clara Shearer MD [address] [place] [address] PCP - General Family Medicine 07/24/18 documented as of this encounter
--- OUTSIDE RECORDS SUMMARY | 2025-06-18 08:22 | XMS_ITS | Clinical Summary ---
Author Organization [facility] Address [address] [place] [address] Care Team Providers Care Broomcorn Seeder Name Role Phone Manfred Clara Primary Care Provider [phone] Allergies No known active allergies Medications aspirin [...] Smear 12/18/2023 12/17/2020 Alcohol/Substance Use Screening 07/24/2024 Influenza Vaccine (#1) 2025 COVID-19 Vaccine ( - 2024-2 6 season) 2025 11/06/2020, 10/09/2020 Pneumococcal Vaccine: Pediatric (0-5 Years) and At-Risk Patients (6-50 Years) Aged Out No longer eligible based on patient's age to complete this topic Procedures * Due to [place] state law, this organization might not be sharing negative HIV tests. Procedure Name Priority Date/Time Associated Diagnosis Comments PAP Routine 12/17/2020 2:37 PM EDT Hematometra from Last 3 Months or Most Recently Relevant to Health Maintenance Results * Due to [place] state law, this organization might not be sharing negative HIV tests. * Pap (12/17/2020 2:37 PM EDT) Specimen Adequacy Satisfactory for evaluation [facility] MANUAL 1 5:02 PM EDT [facility] [employer] [facility] ANATOMIC PATHOLOGY LABORATORY Pathologist Cytology Interpretation Negative for intraepithelial lesion or malignancy. [facility] 1 5:02 PM EDT [facility]ENTERIn[facility] [employer] [facility] ANATOMIC [facility] LABORATORY at 1702 EDT Comment:This is the result o f a morphological screening test with an inherent possibility of a false negative interpretation. Photographic Reproduction Technician Statement This Pap test was examined by the [facility] Imaging System, [employer], [place], [place]. This Pap test was examined in accordance with the [facility] Cytopathology Laboratory written policy, which incorporates all CLIA mandates. Screening guidelines can be found in Am J Clin Pathol 2012;137:516-542. We endorse the practice guidelines developed by ASCCP and published in the Journal Lower Genital Tract Disease 17(5):S1-S27 (2013). [facility] 1 5:02 PM EDT [facility]ENTERUkashNM Lobera [employer] [facility] ANATOMIC [facility]Y LABORAT[facility] Clinical History Hematometra [facility] MANUAL 1 5:02 PM EDT [facility]ENTERInContext [facility] [employer] [facility] ANATOMIC [facility]OLOGY LABORATORY Resulting Agency Case was signed out at [facility], Department of Pathology, [employer] 3 CLIA [id number] [facility] MANUAL 1 5:02 PM EDT [facility] [employer] [facility] ANATOMIC [facility]ORAT[facility] Report Header Gynecologic Cytology Report Case: [id number] Authorizing Provider: Susan Girard Collected: 12/17/2020 1437 Ordering Location: [facility] Received: 12/17/2020 1626 [facility] Obstetrics and Gynecology First Screen: Sissy Dooley Specimen: Screening ThinPrep Pap, Cervix/Endocervix 5:02 PM EDT [facility] Brushing Cervix uteri structure / Unknown Non-Blood Collection / Unknown 12/17/2020 2:37 PM EDT 12/17/2020 4:26 PM EDT us Susan Girard [facility] BASIS LAB PATHOLOGY/CYTOLOGY ORDERABL ES Final Result [facility] [address] [place] [address], from Last 3 Months or Most Recently Relevant to Health Maintenance Insurance [facility]/FREE CARE [facility] Care Teams Broomcorn Seeder Relationship Specialty Start Date End Date Clara Shearer [address] [place] [address] PCP - General Family Medicine 05/26/20
--- OUTSIDE RECORDS SUMMARY | 2025-06-18 08:22 | XMS_ITS | Encounter Summary ---
Author Organization [employer] Address [address] [place] [address] 7t [place] [address] Care Team Providers Care Wire Coating Operator Metal Name Role Phone Clara Shearer MD Primary Care Provider [phone] Reason for Referral * Imaging (Routine) - Closed Specialty Diagnoses / Procedures Referred By Contac t Referred To Contact Radiology Diagnoses Metabolic dysfunction-associated steatotic liver disease (MASLD) Procedures US Abdomen Comp w elastography Clara Shearer MD [address] [place] [address] Phone: tel: fax: [address] [address] Phone: tel: fax: Referral ID Status Reason Start Date Expiration Date Visits Re quested Visits Authorized [id number] Closed 11/17/2023 11/16/2024 1 1 Encounter Details Date Type Department Care Team (Late st Contact Info) Description 11/17/2023 Orders Only [facility] MEDICINE [address] [place], [place] [phone] Clara Shearer MD [address] [place], [place] [phone] Metabolic dysfunction-associated steatotic liver disease (MASLD) (Primary [...] Description 08/20/2025 2:15 PM EST Office Visit [facility] ADULT DENTAL [address] [place] [address] Olga, Katt [address] [place] [address] documented as of this encounter Procedures Procedure Name Priority Date/Time Associated Diagnosis Comments US ABDOMEN COMPLETE WITH ELASTOGRAPHY Routine 12/05/2023 9:26 AM EDT Metabolic dysfunction-associa ebony steatotic liver disease (MASLD) documented in this encounter Results * US Abdomen Comp w elastography (12/05/2023 9:26 AM EDT) Anatomical Region Laterality Modality Abdomen Ultrasound 12/05/2023 9:26 AM EDT Narrative 12/12/2023 9:41 AM EDT [place] [address] Ultrasound Report Signed Patient: Thalia Martell MR#: [id number] 2088 : 1975 Acct:[id number] Age/Sex: 48 / F ADM Date: 12/05/23 Loc: HO.US Attending Dr: Clara Shearer MD Ordering Physician: Clara Shearer MD Date of Service: 12/05/23 Procedure(s): US abdomen comp w elastography Accession Number(s): [id number] cc: Clara Shearer MD EXAMINATION: US COMPLETE [...] signed by Yaniv Ledezma MD in OV> 12/12/23 0937 DD/ 5 TD/TT: Pharmacy Clerk: SS Procedure Note Donotuseinterpreter, Image - 12/12/[address] [address] Ultrasound Report Signed Patient: Yoel Martell#: [id number] 2088 : 1975Acct:[id number] Age/Sex: 48 / FADM Date: 12/05/23 Loc: HO.US Attending Dr: Clara Shearer MD Ordering Physician: Clara Shearer MD Date of Service: 12/05/23 Procedure(s): US abdomen comp w elastography Accession Number(s): [id number] cc: Clara Shearer MD EXAMINATION: US COMPLETE [...] MD in OV> 12/12/2337 DD/ 5 TD/TT: Pharmacy Clerk: SS us Clara Shearer MD IMG US PROCEDURES Final Result documented in this encounter Visit Diagnoses Diagnosis Metabolic dysfunction-associated steatotic liver disease (MASLD)- Primary documented in this encounter Additional Health Concerns Assessment Noted Time PHQ-9 Depression Total Score: 0 10/17/19 24 3:45 PM EDT documented as of this encounter Care Teams Wire Coating Operator Metal Relationship Specialty Start Date End Date Clara Shearer MD [address] [place] [address] PCP - General Family Medicine 07/24/18 documented as of this encounter
--- OUTSIDE RECORDS SUMMARY | 2025-06-18 08:23 | XMS_ITS | Encounter Summary ---
Author Organization [employer] Address [address] [place] [address] 7t [place] [address] Care Team Providers Care Mop Worker Name Role Phone Clara Shearer MD Primary Care Provider [phone] Encounter Details Date Type Department Care Team (Latest Contact Info) Description 09/26/2019 Abstract [facility] CONVERSIONS Dental, Provider, DDS Social History [...] Description 08/20/2025 2:15 PM EST Office Visit [facility] ADULT DENTAL [address] [place] [address] Olga, Katt [address] [place] [address] documented as of this encounter Visit Diagnoses Not on filedocumented in this encounter Care Teams Mop Worker Relationship Specialty Start Date End Date Clara Shearer MD [address] [place] [address] PCP - General Family Medicine 07/24/18 documented as of this encounter
--- OUTSIDE RECORDS SUMMARY | 2025-06-18 08:23 | XMS_ITS | Encounter Summary ---
Author Organization [employer] Address [address] [place] [address] [address] [address] Care Team Providers Care [employer] Lieutenant Name Role Phone Clara Shearer MD Primary Care Provider [phone] Reason for Visit * Reason Onset Date Comments Letter for School/Work 08/02/2022 Encounter Details Date Type Department Care Team ([facility] st Contact Info) Description 08/02/2022 Telephone [facility] [address] [place] [address] Clara Shearer MD [address] [place] [address] Letter for School/Work Social History Tobacco Use [...] a upcoming procedure on 08-19-22. Fax number [phone] Any question please contact Ambreen at [phone] ext [phone] * Telephone Encounter - Khang Garcia - 08/04/2022 2:41 PM EST Tc from pankaj with [facility] requesting a call regarding message below Please contact pankaj at [phone] * Telephone Encounter - Ronda Mahan LPN - 08/04/2022 2:41 PM EST Kelly, this should be done upstairs we do not do letters regarding medication stop or start. Please discuss with Dr. Shearer on what she wants and you can call [facility] to fax that order/letteror if they will take verbal orders from you that is even easier. * Telephone Encounter - Kelly Campuzano RN - 08/02/2022 3:33 PM EST Pt having procedure (dilation and curettage with hysteroscopy to place mirena) at [facility] 08/19/22. They are requesting a letter stating when pt should stop and restart coumadin (how many days before and after). * Telephone Encounter - Khang Garcia - 08/02/2022 2:48 PM EST Tc from claudia with [facility] requesting a letter stating when pt will be stopping medication ( warfarin 2 mg ) prior to OP Please contact claudia at [phone] ext [phone] documented in this encounter Plan of Treatment Upcoming Encounters Date Type Department Care Team (Late st Contact Info) Description 08/20/2025 2:15 PM EST Office Visit [facility] [address], [place] [id number] Olga, Katt [address] [place] [address] documented as of this encounter Visit Diagnoses Not on filedocumented in this encounter Care Teams [employer] Lieutenant Relationship Specialty Start Date End Date Clara Shearer MD [address] [place] [id number] PCP - General Family Medicine 07/24/18 documented as of this encounter
--- OUTSIDE RECORDS SUMMARY | 2025-06-18 08:23 | XMS_ITS | Clinical Summary ---
Author Organization [employer] Address [address] [facility] [address] [place] [address] Care Team Providers Care Title Abstractor Name Role Phone Clara Shearer MD Primary Care Provider [phone] Allergies No known active allergies Medications * [...] MOUTH TWICE DAILY 180 tablet 5 Active olopatadine (Pataday) 0.2 % ophthalmic [...] 30 capsule 11 5 05/10/20 26 Active cholecalciferol (D3 Super Strength) 50 MCG (2000 UT) capsule TAKE 1 CAPSULE BY MOUTH EVERY DAY 90 capsule 5 Active acetaminophen (Tylenol) 325 MG tablet Take 650 mg by mouth every 6 (six) hours. 5 Active sennosides (Senokot) 8.6 MG tablet Take 2 tablets by mouth at bedtime. Active simethicone (Mylicon,Gas-X) 125 MG capsule Take 125 mg by mouth if needed in the morning, at noon, in the evening, and at bedtime. Active Diclofenac Sodium 1 % gel Apply to affected area once or twice daily as needed for pain 150 g 3 06/10/2025 11:08 AM EST Active Enoxaparin Sodium 80 MG/0.8ML solution prefilled syringe 5 05/22/20 25 Active Problems Problem Noted Date Diagnosed Date Chronic right shoulder pain 06/15/2025 Assessment & Plan (06/15/2025 11:41 AM EST): Evaluated with x-ray Discussed use of APAP and topical diclofenac Evaluated with EMG/NCT History of hysterectomy with unilateral oophorec tristian 06/10/2025 Overview (06/10/2025): - s/p TLH, Bilateral salpingectomy, and right oopherectomy on 05/06/2025 for 9.8 cm pelvic mass. Pathology report: ovarian cyst, ruptured Right arm pain 06/10/2025 Numbness and tingling of right hand 06/10/2025 Assessment & Plan (06/15/2025 11:42 AM EST): Evaluated with nerve conduction test/EMG Bilateral shoulder pain 04/13/2025 Assessment & Plan (06/15/2025 11:42 AM EST): - evaluate with X-ray - referred to physical therapy - judicious use of APAP and cyclobenzaprine - Continue topical diclofenac - minimize NSAIDs use due to warfarin Assessment & Plan (04/13/2025 7:22 PM EDT): - evaluate with X-ray - refer to physical therapy - judicious use of APAP and cyclobenzaprine - minimize NSAIDs use due to warfarin Mitral stenosis 04/13/2025 Assessment & Plan (06/15/2025 11:34 AM EST): - history of rheumatic heart disease, s/p AVR for aortic regurgitation - 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 LV ejection fraction with 50 to 55%. Normal right ventricular systolic function. Mechanical prosthesis in the aortic valve. Mild mitral stenosis. - echocardiogram in Aug 2023 in [facility]: Left ventricular systolic function was normal. EF 57%. Mechanical prosthetic aortic valve, which is functioning normally. Moderate mitral valve stenosis - following with hand rounder, Dr. Haynes [facility] - Monitor with periodic echo. 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 EF 57%. Mechanical prosthetic aortic valve, which is functioning normally. Moderate mitral valve stenosis - following with hand rounder, Dr. Haynes [facility] - Monitor with periodic echo. Localized gingival recession 10/31/2024 Chronic headache 05/30/2024 Assessment & Plan (04/13/2025 7:48 PM EDT): - Following with neurologist, [facility], last seen in January 2025 - pt [...] (obstructive sleep apnea) 05/30/2024 Assessment & Plan (06/15/2025 11:42 AM EST): - Pt had sleep study in 2023 showing AYESHA, most recently had titration study - Last seen in sleep medicine clinic in January 2025 - Continue CPAP Assessment & Plan (04/13/2025 7:49 PM EDT): [...] has sleep study which was ordered by hand rounder. Patient was referred to sleep medicine specialist and appointment is not until next August. Will try try prescribing CPAP. History of pancreatitis 05/30/2024 Right hip pain 05/30/2024 Assessment & Plan (05/30/2024 12:26 PM EST): - XR shows moderate degenerative joint disease - after MRI evaluation, will consider referral to orthopedist for hip evaluation Chronic low back pain 03/06/2024 Assessment & Plan (04/13/2025 7:47 PM EDT): - s/p PT with minimal improvement - evaluated by [facility] orthopedist in March 2024. MRI in 2023 [...] PT with minimal improvement - evaluated by [facility] orthopedist in March 2024. MRI in 2023 showed change - pt was seen by spine center provider in September 2024. Her pain was attributed to SI joint dysfunction and was advised to continue PT - patient has received 3 injection treatments with no improvement Assessment & Plan (05/30/2024 12:25 PM EST): - s/p PT with minimal improvement - evaluated by [facility] orthopedist in March 2024. MRI was ordered and patient was referred to [facility] for injection treatment. - patient has received 3 injection treatments with no improvement - patient was advised to contact [facility] orthopedist to inquire MRI Assessment & Plan (03/06/2024 4:11 PM EDT): Reports R low back pain for months, Recently completed PT for 2 months without significant relief. -referred to Ortho 03/06/24 Teeth missing 12/28/2023 Dental plaque 12/28/2023 Transaminitis 11/03/2023 Assessment & Plan (06/15/2025 11:37 AM EST): - Most recent MRI in Feb 2023 showed hepatic steatosis - Hx of idiopathic pancreatitis in November 2022 - following with [facility], last seen in May 2024 - Fib 4 index 0.82 - Liver ultrasound/elastography: 12/12/2023 heterogeneous normal-sized liver without evidence of hepatic steatosis; proptotic dilated infrarenal aorta measuring 2.7 cm, recommended follow-up ultrasound every 5 years; median shear wave velocity 0.94 m/s - continue working on lifestyle modifications - Monitor periodically; check lab today Assessment & Plan (04/13/2025 7:44 PM EDT): - Most recent MRI in Feb 2023 showed hepatic steatosis - Hx of idiopathic pancreatitis in November 2022 - following with [facility], last seen in May 2024 - [...] pancreatitis in November 2022 - following with [facility], last seen in Feb 2023 - continue working on lifestyle modifications GERD (gastroesophageal reflux disease) Assessment & Plan (06/15/2025 11:38 AM EST): - EGD in Jun 2024 Assessment & Plan (04/13/2025 7:40 PM EDT): [...] surgeon Hair loss 03/19/2023 Assessment & Plan (06/15/2025 11:42 AM EST): - avoid irritation; use unscented hypoallergenic hair care product - eat well-balanced diet with adequate protein intake - normal thyroid function test Assessment & Plan (11/03/2023 12:10 PM EDT): [...] Rheumatic heart disease 11/22/2022 Assessment & Plan (06/15/2025 11:29 AM EST): - s/p AVR in Feb 2010 - on warfarin - previously prescribed metoprolol by hand rounder; no longer on the medication due to hypotension / dizziness - continue following with hand rounder, [facility] Dr Haynes - last TTE on 09/19/2023: Left ventricular systolic function was normal. EF 57%. Mechanical prosthetic aortic valve, which is functioning normally. Moderate mitral valve stenosis - continue current treatment plan per cardiology Assessment & Plan (04/13/2025 7:36 PM EDT): - s/p AVR in Feb 2010 - on warfarin - previously prescribed metoprolol by hand rounder; no longer on the medication due to hypotension / dizziness - continue following with hand rounder, [facility] Dr Haynes - last TTE on 09/19/2023: Left ventricular systolic function was normal. EF 57%. Mechanical prosthetic aortic valve, which is functioning normally. Moderate mitral valve stenosis - continue current treatment plan per cardiology Assessment & Plan (12/30/2024 9:32 AM EDT): - s/p AVR in Feb 2010 - on warfarin - previously prescribed metoprolol by hand rounder; no longer on the medication due to hypotension / dizziness - continue following with hand rounder, [facility] Dr Haynes - last TTE in January 2022, mild mitral valve stenosis - continue current treatment plan per cardiology Assessment & Plan (05/30/2024 12:22 PM EST): - s/p AVR in Feb 2010 - on warfarin - previously prescribed metoprolol by hand rounder; no longer on the medication due to hypotension / dizziness - continue following with hand rounder [facility] Dr Haynes - last TTE in January 2022, mild mitral valve stenosis - continue current treatment plan per cardiology Assessment & Plan (03/19/2023 1:47 PM EDT): - s/p AVR in Feb 2010 - on warfarin - previously prescribed metoprolol by hand rounder; no longer on the medication due to hypotension / dizziness - continue following with hand rounder, [facility] Dr Haynes - last TTE in January 2022, mild mitral valve stenosis - continue current treatment plan per cardiology Assessment & Plan (11/22/2022 11:35 AM EDT): - s/p AVR in Feb 2010 - on warfarin - previously prescribed metoprolol by hand rounder; no longer on the medication due to hypotension / dizziness - continue following with hand rounder, [facility] Dr Haynes - last TTE in January 2022, mild mitral valve stenosis - continue current treatment plan per cardiology Chronic anticoagulation 11/22/2022 Assessment & Plan (06/15/2025 11:36 AM EST): - indication: Aortic valve replacement - medication warfarin - goal INR 2-3 - followed by [facility] anticoagulation clinic - continue current management plan Assessment & Plan (12/30/2024 9:33 AM EDT): - indication: Aortic valve replacement - medication warfarin - goal INR 2-3 - followed by [facility] anticoagulation clinic - last INR was 2.0 on 03/01/23 - continue current management plan Assessment & Plan (05/30/2024 1:41 PM EST): - indication: Aortic valve replacement - medication warfarin - goal INR 2-3 - followed by [facility] anticoagulation clinic - last INR was 2.0 on 03/01/23 - continue current management plan Assessment & Plan (03/19/2023 1:49 PM EDT): - indication: Aortic valve replacement - medication warfarin - goal INR 2-3 - followed by [facility] anticoagulation clinic - last INR was 2.0 on 03/01/23 - continue current management plan Assessment & Plan (11/22/2022 11:40 AM EDT): - indication: Aortic valve replacement - medication warfarin - goal INR 2-3 - followed by [facility] anticoagulation clinic - last INR was 2.4 [...] polyp, benign -Pt has follow-up appointment with SITE COORDINATOR -Pt is on Coumadin -Pt requested Hysterectomy, pt will follow-up with SITE COORDINATOR with possible hysterectomy in future Assessment & Plan (11/08/2022 4:50 PM EDT): s/p Endometrial Curetting's, polyp, benign -Pt has follow-up appointment with SITE COORDINATOR -Pt is on Coumadin -Pt requested Hysterectomy, pt will follow-up with SITE COORDINATOR with possible hysterectomy in future Cyst of ovary 09/22/2022 Iron deficiency anemia due to chronic blood loss 09/22/2022 Assessment & Plan (06/15/2025 11:39 AM EST): - AUB in a setting of anticoagulation - s/p removal of endometrial polyp, benign - Status post total laparoscopic hysterectomy, bilateral salpingectomy, and right oophorectomy in April 2025 - Pt has follow-up appointment with SITE COORDINATOR - Pt is taking warfarin Assessment & Plan (05/30/2024 1:41 PM EST): - AUB in a setting of anticoagulation - s/p removal of endometrial polyp, benign - Pt has follow-up appointment with SITE COORDINATOR - Pt is taking Coumadin Assessment & Plan (11/03/2023 12:09 PM EDT): - AUB in a setting of anticoagulation - s/p removal of endometrial polyp, benign -Pt has follow-up appointment with SITE COORDINATOR -Pt is taking Coumadin Assessment & Plan (11/08/2022 4:45 PM EDT): Due to AUB: S/p Endometrial Curetting's, polyp, benign -Pt has follow-up appointment with SITE COORDINATOR -Pt is taking Coumadin Vitamin D deficiency 12/04/2018 Assessment & Plan (06/15/2025 11:36 AM EST): -continue vitamin D supplement Assessment & Plan (12/30/2024 9:34 AM EDT): -continue vitamin D supplement Assessment & Plan (11/03/2023 12:08 PM EDT): -continue vitamin D supplement Presence of subdermal contraceptive implant 09/2014 History of mechanical aortic valve replacement 0 04/07/2015 Assessment & Plan (06/15/2025 11:35 AM EST): [facility] last seen in December 2023 - s/p AVR for rheumatic disease and aortic regurgitation in Feb 2010 - EKG showed sinus rhythm and RBBB - echocardiogram 08/30/2023 EF 57%. Mechanical aortic valve functioning normally. Moderate mitral valve stenosis. No regurgitation. - Continue warfarin - Continue SBE prophylaxis. Assessment & Plan (04/13/2025 7:36 PM EDT): - Qa Automation Engineer: Dr. Dallas Duran, last seen in December 2023 - s/p AVR for rheumatic disease and aortic regurgitation in Feb 2010 - EKG showed sinus rhythm and RBBB - echocardiogram 08/30/2023 EF 57%. Mechanical aortic valve functioning normally. Moderate mitral valve stenosis. No regurgitation. - Continue warfarin - Continue SBE prophylaxis. Assessment & Plan (12/30/2024 9:32 AM EDT): - Qa Automation Engineer: Dr. Dallas Duran, last seen in December 2023 - s/p AVR for rheumatic disease and aortic regurgitation in Feb 2010 - EKG showed sinus rhythm and RBBB - echocardiogram 08/30/23 EF 57%. Mechanical aortic valve functioning normally. Moderate mitral valve stenosis. No regurgitation. - Continue warfarin - Continue SBE prophylaxis. Assessment & Plan (05/30/2024 12:22 PM EST): - Qa Automation Engineer: Dr. Dallas Duran, last seen in December 2023 - s/p AVR for rheumatic disease and aortic regurgitation in Feb 2010 - EKG showed sinus rhythm and RBBB - echocardiogram 08/30/23 EF 57%. Mechanical aortic valve functioning normally. Moderate mitral valve stenosis. No regurgitation. - Continue warfarin - Continue SBE prophylaxis. Assessment & Plan (11/03/2023 12:18 PM EDT): - Qa Automation Engineer: Dr. Dallas Duran, last seen in Aug 2023 - s/p AVR for rheumatic disease and aortic regurgitation in Feb 2010 - EKG showed sinus rhythm and RBBB - echocardiogram 08/30/23 EF 57%. Mechanical aortic valve functioning normally. Moderate mitral valve stenosis. No regurgitation. - Continue warfarin - Continue SBE prophylaxis. Assessment & Plan (03/19/2023 1:47 PM EDT): - Qa Automation Engineer: Dr. Dallas Duran, last seen in Jul 2022 - s/p AVR for rheumatic disease and aortic regurgitation in Feb 2010 - EKG showed sinus rhythm and RBBB - echocardiogram JANUARY 2022 nml LVEF 60-65%; mild mitral valve stenosis - Continue aspirin and warfarin, per cardiology. - Continue SBE prophylaxis. Assessment & Plan (11/22/2022 11:37 AM EDT): - Qa Automation Engineer: Dr. Dallas Duran, last seen in Jul 2022 - s/p AVR for rheumatic disease and aortic regurgitation in Feb 2010 - EKG showed sinus rhythm and RBBB - echocardiogram JANUARY 2022 nml LVEF 60-65%; mild mitral valve stenosis - Continue aspirin and warfarin, per cardiology. - Continue SBE prophylaxis. Allergic rhinitis 12/09/2013 Aortic valve regurgitation 07/25/2013 Assessment & Plan (06/15/2025 11:35 AM EST): - Qa Automation Engineer: Dr. Dallas Duran, last seen in December 2024 - s/p AVR for rheumatic disease and aortic regurgitation due to rheumatic heart disease in Feb 2010 - EKG showed sinus rhythm and RBBB - echocardiogram in Aug 2023, EF 59%. Normally functioning AV. Moderate mitral valve stenosis. - - most recent Echocardiogram on 05/05/2025 at [facility]: Left ventricular systolic function is at the lower limits of normal. LV ejection fraction with 50 to 55%. Normal right ventricular systolic function. Mechanical prosthesis in the aortic valve. Mild mitral stenosis. The aortic valve peak prosthetic velocity is 2.7 m/s. The aortic valve peak and mean prosthetic gradients are 30 mmHg and 17 mmHg respectively. There is no aortic regurgitation. There is trace to mild paravalvular regurgitation. - Continue warfarin, per cardiology. - Continue SBE prophylaxis. Assessment & Plan (04/13/2025 7:36 PM EDT): - Qa Automation Engineer: Dr. Dallas Duran, last seen in December 2024 - s/p AVR for rheumatic disease and aortic regurgitation due to rheumatic heart disease in Feb 2010 - EKG showed sinus rhythm and RBBB - echocardiogram in Aug 2023, EF 59%. Normally functioning AV. Moderate mitral valve stenosis. - Continue warfarin, per cardiology. - Continue SBE prophylaxis. Assessment & Plan (12/30/2024 9:32 AM EDT): - Qa Automation Engineer: Dr. Dallas Duran, last seen in December 2023 - s/p AVR for rheumatic disease and aortic regurgitation due to rheumatic heart disease in Feb 2010 - EKG showed sinus rhythm and RBBB - echocardiogram in Aug 2023, EF 59%. Normally functioning AV. Moderate mitral valve stenosis. - Continue warfarin, per cardiology. - Continue SBE prophylaxis. Assessment & Plan (05/30/2024 12:22 PM EST): - Qa Automation Engineer: Dr. Dallas Duran, last seen in December 2023 - s/p AVR for rheumatic disease and aortic regurgitation due to rheumatic heart disease in Feb 2010 - EKG showed sinus rhythm and RBBB - echocardiogram in Aug 2023, EF 59%. Normally functioning AV. Moderate mitral valve stenosis. - Continue warfarin, per cardiology. - Continue SBE prophylaxis. Assessment & Plan (11/03/2023 12:20 PM EDT): - Qa Automation Engineer: [facility], Dr. 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 Normally functioning AV. Moderate mitral valve stenosis. - Continue warfarin, per cardiology. - Continue SBE prophylaxis. Assessment & Plan (11/22/2022 11:36 AM EDT): - Qa Automation Engineer: [facility], Dr. Haynes, last seen in Jul 2022 - s/p AVR for rheumatic disease and aortic regurgitation in Feb 2010 - EKG showed sinus rhythm and RBBB - echocardiogram JANUARY 2022 nml LVEF 60-65%; mild mitral valve stenosis - Continue aspirin and warfarin, per cardiology. - Continue SBE prophylaxis. Varicose veins 07/25/2013 Resolved Problems Problem Noted Date Diagnosed Date Resolved Date Adjustment disorder with depressed mood 12/31/2024 06/15/2025 Assessment & Plan (01/13/2025 5:22 AM EDT): - Seen by [facility] behavioral health service clinician today Right lower quadrant pain 03/06/2024 Assessment & Plan (03/06/2024 4:10 PM EDT): Reports RLQ abd pain x2 days. No fevers. No evidence of acute abdomen. -ordered RLQ US -given return and ER precautions. Idiopathic acute pancreatiti s without infection or necrosis 03/19/2023 11/03/2023 Assessment & Plan (03/19/2023 2:10 PM EDT): - 12/03/22 Evaluated and treated at [facility] ED. WBC 13k, Lipase 247, CT showed pancreatitis. Given IVF and analgesics. - Seen by [facility] in December 2022 - MRI on 03/01/23 was normal. - HgbA1C 5.9% - Follow recommendations per GI. Menometrorrhagia 09/22/2022 03/07/2023 Pain in female pelvis 09/22/20222022 Encounters Date Type Department Care Team Description 06/18/2025 Orders Only GENERIC EXTERNAL DATA DEPARTMENT Provider, Generic External Data 06/13/[address] [place] [address] Clara Shearer MD Referral 06/12/2025 Results Follow-Up [address] [place] [address] Clara Shearer MD XR Chest 2 Views 06/11/[address] [address] Clara Shearer MD Results 06/11/2025 Orders Only [address] [address] Clara Shearer MD Chronic right shoulder pain (Primary Dx) 06/11/2025 Orders Only [address] [address] Clara Shearer MD Transaminitis (Primary Dx); RUQ pain 06/11/2025 Results Follow-Up [address] [place] [address] Clara Shearer MD Hemoglobin A1c, Comprehensive Metabolic Panel, Lipid Panel with Reflex to Direct LDL 06/11/[address] [address] Clara Shearer MD Call Back Request 06/11/2025 Orders Only [address] [place] [address] Clara Shearer MD Chronic right shoulder pain (Primary Dx); Nodule of upper lobe of right lung 06/11/2025 Results Follow-Up [address] [place] [address] Clara Shearer MD XR Shoulder 2+ Views Right 06/10/2025 9:30 AM EST Office [facility] [place] [place] [address] Clara Shearer MD History of hysterectomy with unilateral oophorectomy (Primary Dx); Cyst of right ovary; History of mechanical aortic valve replacement; Rheumatic heart disease; Mitral valve stenosis, unspecified etiology; Rheumatic aortic valve insufficiency; Chronic anticoagulation; Chronic right shoulder pain; Fatigue, unspecified type; Hair loss; Anemia, unspecified type; Vitamin D deficiency; Iron deficiency anemia due to chronic blood loss; Chronic pain of both shoulders; Right arm pain; Numbness and tingling of right hand; Transaminitis; Gastroesophageal reflux disease, unspecified whether esophagitis present; AYESHA (obstructive sleep apnea) 06/10/2025 Travel 06/09/2025 Telephone [facility] [address] [place] [id number] Clara Shearer MD chart prep 05/28/[address] [address] Kelly Chau RN Hospital Follow-up 05/19/2025 Refill [facility] [address] [place] [address] [id number] Clara Shearer MD 05/16/2025 Refill [facility] [address] [place] [phone] Clara Shearer MD 05/12/2025 Patient Outreach [address] [address] Clara Shearer MD Transition Of Care (Tcm) (HDF- unscheduled (surgery)) 05/10/2025 Telephone [facility] [address] [place] [address] [phone] Rena Lopez MD 05/02/2025 3:40 PM EDT Office Visit [facility] [address] [place] [phone] Nabil Jesus MD Generalized abdominal pain (Primary Dx); Constipation, unspecified constipation type 05/02/2025 Travel 04/21/2025 Orders Only GENERIC EXTERNAL DATA DEPARTMENT Provider, Generic External Data 04/17/2025 Telephone [facility] [address] [place] [id number] Clara Shearer MD Critical Result 04/17/2025 Orders Only GENERIC EXTERNAL DATA DEPARTMENT Provider, Generic External Data 04/10/2025 Orders Only GENERIC EXTERNAL DATA DEPARTMENT Provider, Generic External Data 04/01/2025 3:45 PM EDT Office Visit [address] [address] Clara Shearer MD Chronic pain of both [...] unspecified headache type 04/01/2025 Travel 03/31/[address] [address] Clara Shearer MD chart prep 03/25/[address] [address] Clara Shearer MD Paperwork/Forms 03/20/2025 Orders Only [...] 07/25/2013,10/08/2012, Influenza, seasonal, injecta ble, preservative free 05/09/2025,05/30/2024 Moderna Covid-19 Vaccine 12+ 11/06/2020,10/10/19 21 Pfizer [...] Sign Reading Time Taken Comments Blood Pressure 100/80 06/10/2025 9:48 AM EST Pulse 85 06/10/2025 9:48 AM EST Temperature 36 C (96.8 F) 06/10/2025 9:48 AM EST Respiratory Rate 20 06/10/2025 9:48 AM EST Oxygen Saturation 98% 06/10/2025 9:48 AM EST Inhaled Oxygen Concentration - - Weight 67.8 kg (149 lb 6.4 oz) 06/10/2025 9:48 A M EST Height 147.3 cm (4' 10 ) 06/10/2025 9:48 AM EST Body Mass Index 31.22 06/10/2025 9:48 AM EST Plan of Treatment Upcoming Encounters Date Type Department Care Team (Late st Contact Info) Description 08/20/2025 2:15 PM EST Office Visit [facility] [address] [place] [address] Olga, Katt [address] [place] [address] Health Maintenance Due Date Last Done Comments CT Colonography 1977 FIT DNA/Cologuard 1977 FIT 1977 FOBT 1977 Sigmoidoscopy 1977 Family Planning (PISQ) 02/19/1992 Dental Oral Exam 07/21/2024 01/19/2024, , 02/03/2021, Additional history exists Dental X-Ray: Bitewings 12/28/2024 12/28/19 24, 02/03/2021, 09/26/2019 COVID-19 Vaccine ( season) 2025 12/30/2024, 05/09/2023, 11/06/2020, Additional history exists Dental Prophylaxis 05/03/2025 10/31/2024, 0 12/28/2023, 09/26/2019 Cervical Cancer Screening 11/13/2025 HPV/Cotest 11/13/2025 11/13/2020, 08/20/2019 Pap Smear 11/13/2025 11/13/2020 Disability Screening 12/30/2025 12/30/2024 SDOH Screening 04/01/2026 04/01/2025 Dental X-Ray: Full Mouth 04/20/2026 04/19/2023, 0710/2020 Alcohol/Substance Use Screening 06/10/2026 06/10/2025 Depression Screening 06/10/2026 06/10/2025, 06/10/20 Tobacco Screening 06/10/2026 06/10/2025 Diabetes: Hemoglobin A1C 06/11/2026 025, 2025, 12/11/2023, Additional history exists Mammogram 10/04/2026 10/04/2024, 06/0 08/2022, 12/11/2020, Additional history exists Zoster Vaccines (1 of 2) 2027 Lipid Panel 06/11/2030 06/11/2025, 072 03/2025, 11/16/2023, Additional history exists DTaP/Tdap/Td Vaccines (3 - [...] C Screening Completed 12/11/2023 , 12/15/2022, 07/22/2019 Hepatitis A Vaccines Aged Out 12/30/2024 No [...] [facility] Routine 06/18/2025 8:15 AM EST XR CHEST 2 VIEWS Routine 06/12/2025 1:47 PM EST Nodule of upper lobe of right lung VITAMIN B12/FOLATE, SERUM PANEL Routine 06/11/2025 8:13 AM EST Anemia, unspecified type RETICULOCYTE COUNT Routine 06/11/2025 8: 13 AM EST Anemia, unspecified type IRON AND TOTAL IRON BINDING CAPACITY Routine 06/11/2025 8:13 AM EST Anemia, unspecified type FERRITIN Routine 06/11/2025 8:13 AM EST Anemia, unspecified type VITAMIN D,25-OH,TOTAL,IA Routine 06/11/2025 8:13 AM EST Vitamin D deficiency TSH W/REFLEX TO FT4 Routine 06/11/2025 8 :13 AM EST Hair loss CBC WITH AUTO DIFFERENTIAL Routine 06/11/2025 8:13 AM EST Fatigue, unspecified type LIPID PANEL WITH REFLEX TO DIRECT LDL Routine 06/11/2025 8:13 AM EST Screening for lipid disorders COMPREHENSIVE METABOLIC PANEL Routine 06/11/2025 8:13 AM EST Rheumatic heart disease History of mechanical aortic valve replacement Rheumatic aortic valve insufficiency HEMOGLOBIN A1C Routine 06/11/2025 8:13 AM EST Prediabetes XR SHOULDER 2+ VIEWS RIGHT Routine 06/10/2025 11:10 AM EST Chronic right shoulder pain POCT URINALYSIS DIPSTICK Routine 05/02/2025 3:50 PM [...] [facility] Routine 03/20/2025 3:04 PM EDT PROPHYLAXIS - ADULT Routine 10/31/2024 [...] WHOLE BLD POC (06/18/2025 8:15 AM EST) Only the most recent of5 resultswithin the time period is included. Protime 30.3(H) 11.1 - 13.5 sec [facility] 06/18/2025 8:15 AM EST 06/18/2025 8:18 AM EST us Generic External Data Provider LAB BLOOD ORDERAB LES Final Result [facility] [address] [place] [phone] * (ABNORMAL) ~PT, ~INR - ANTI [facility]AG [facility]INIC (06/18/2025 8:15 AM EST) Only the most recent of5 resultswithin the time period is included. Prothrombin Time INR 2.5(H) 0.9 - 1.1 [facility] Comment:METER #: [id number] TERNATIONAL NORMALIZED RATIO (INR) REFERENCE RANGES Reference [...] ORDERAB LES Final Result Performing Organization Address City/State/[facility] Co de Phone Number [facility] [address] [place] [phone] * XR Chest 2 Views (06/12/2025 1:47 PM EST) Anatomical Region Laterality Modality Chest Radiographic Darlene ging 06/12/2025 1:47 PM EST Narrative 06/12/2025 2:12 PM EST [address] [address] XRay Report Signed Patient: Thalia Martell MR#: [id number] 2088 : 1975 Acct:[id number] Age/Sex: 50 / F ADM Date: 06/12/25 Loc: VICKIE Attending Dr: Clara Shearer MD Ordering Physician: Clara Shearer MD Date of Service: 06/12/25 Procedure(s): XR chest 2V Accession Number(s): [id number] cc: Clara Shearer MD Reason for Exam: [...] 06/12/25 1409 DD/ 1347 TD/TT: 06/12/25 1350 Hot Mill Operator: Procedure Note Donotuseinterpreter, Image - 06/12/[address] [address] XRay Report Signed Patient: Yoel Martell#: [id number] 2088 : 1975Acct:[id number] Age/Sex: 50 / FADM Date: 06/12/25 Loc: HO.XRAY Attending Dr: Clara Shearer MD Ordering Physician: Clara Shearer MD Date of Service: 06/12/25 Procedure(s): XR chest 2V Accession Number(s): [id number] cc: Clara Shearer MD Reason for Exam: [...] 06/12/2025 02:09 PM EST RP Dictated By: oDrian Cruz MD Signed By: <Electronically signed by Dorian Chau MDin OV> 06/12/25 1409 DD/ 1347 TD/TT: 06/12/25 1350 Hot Mill Operator: Clara Shearer MD IMG XR PROCEDURES Final Result * Vitamin D, 25-Hydroxy, Total, Immunoassay (06/11/2025 8:13 AM EST) Vitamin D 25-OH Total 39.5 >30 ng/mL [facility] Comment: Health Based Reference Values*< 20 ng/mL Adhuliefe01-24 ng/mL Insufficient> 30 ng/mL Sufficient*Paul LEVIN. N [...] confirmed with another method such as LC-MS/MS. Blood Venous blood specimen / Unknown 06/11/2025 8:13 AM EST 06/11/2025 11:09 AM EST Clara Shearer MD LAB BLOOD ORDERABLES Final Resul t [facility] [address] [place] [phone] [phone] * Vitamin B12 (Cobalamin) and Folate Panel, Serum (06/11/2025 8:13 AM EST) Vitamin B12 809 200 - 900 pg/mL [facility] Comment:NORMAL 200-900 PG/ML INDETERMINATE 160-199 PG/ML DEFICIENT < 160 PG/ML Folate 9.4 > or = 4.0 ng/mL [facility] Comment:Reference Values:> o r = 4.0 ng/mL< 4.0 ng/mL suggests folate deficiency Methotrexate, aminopterin and folinic acid(leucovorin) are chemotherapeutic agents whose molecularstructures are similar to folate; therefore, the Architectfolate assay cannot be used for patients using these drugs. Blood 06/11/2025 8:13 AM EST 06/11/2025 11:09 AM EST Clraa Shearer MD LAB BLOOD ORDERABLES Final Resul t Performing Organization Address [facility] Co de Phone Number [facility] [address] [place] [phone] * TSH with Reflex to Free T4 (06/11/2025 8:13 AM EST) TSH reflex Free T4 1.95 0.32 - 4.0 uIU/mL [facility] Blood 06/11/2025 8:13 AM EST 06/11/2025 11:09 AM EST Clara Shearer MD LAB BLOOD ORDERABLES Final Resul t Performing Organization Address [facility] Co de Phone Number [facility] [address] [place] [phone] * (ABNORMAL) Lipid Panel with Reflex to Direct LDL (06/11/2025 8:13 AM EST) Triglycerides 186(H) <150 mg/dL [facility] Comment:Desirable Triglyceri de: less than 150 mg/dLBorderline High Triglyceride 150-199 mg/dLHigh Triglyceride: 200-499 mg/dLVery High Triglyceride: greater than or equal to 5OO mg/dL Cholesterol 243(H) <200 mg/dL [facility] Comment:Desirable Cholestero l: less than 200 mg/dLBorderline High Cholesterol: 200-239 mg/dLHigh Cholesterol: greater than 239 mg/dL LDL Cholesterol Calculated 148(H) <100 mg/dL [facility] Comment:Desirable LDL: less than 100 mg/dLNear Optimal/Above Optimal LDL: 110- 129 mg/dLBorderline High LDL: 130-159 mg/dLHigh LDL: 160-189 mg/dLVery High LDL: greater than or equal to 190 mg/dL HDL Cholesterol 58 >40 mg/dL [facility] Comment:Desirable HDL: great er than 40 mg/dL Note: This HDL assay may give artificially low results in patients with liver disease. Blood 06/11/2025 8:13 AM EST 06/11/2025 11:09 AM EST us Clara Shearer MD LAB BLOOD ORDERABLES Final Resul t [facility] [address] [place] [phone] * (ABNORMAL) CBC auto differential (06/11/2025 8:13 AM EST) White Blood Count 5.0 4.8 - 10.8 X10*3/uL [facility] Red Blood Count 4.11(L) 4.20 - 5.50 X10*6/uL [facility] Hemoglobin 12.1 12.0 - 16.0 g/dl [facility] Hematocrit 37.7 37.0 - 47.0 % [facility] Mean Corpuscular Volume 91.7 80.0 - 98.0 fL [facility] Mean Corpuscular Hemoglobin 29.4 27.0 - 33.0 pg [facility] Mean Corpuscular HGB Conc 32.1 31.0 - 35.0 g/dl [facility] Red Cell Distribution Width 13.7 11.0 - 16.0 % [facility] Platelet Count 218 160 - 400 X10*3/uL [facility] Mean Platelet Volume 10.6 9.4 - 12.3 fL [facility] Neutrophils Percent Auto 63.2 45 - 73 % [facility] Imm Gran Pct Auto 0.2 0.0 - 0.4 % [facility] Lymphocytes Percent Auto 21.8 20 - 40 % [facility] Monocytes Percent Auto 10.4 2 - 11 % [facility] Eosinophils Percent Auto 4.0 0 - 4 % [facility] Basophils Percent Auto 0.4 0 - 2 % [facility] NRBC Pct Auto 0.0 0.0 - 0.2 /100WBC [facility] Neutrophils Absolute Auto 3.2 2.0 - 8.3 x10*3/uL [facility] Imm Gran Abs Auto 0.01 0.00 - 0.03 X10*3/uL [facility] Lymphocytes Absolute Auto 1.1(L) 1.2 - 4.9 X10*3/uL [facility] Monocytes Absolute Auto 0.5 0.1 - 1.2 X10*3/uL [facility] Eosinophils Absolute Auto 0.2 0.0 - 0.4 X10*3/uL [facility] Basophils Absolute Auto 0.0 0.0 - 0.2 X10*3/uL [facility] NRBC Abs Auto 0.000 0.0 - 0.012 X10*3/uL [facility] Blood Venous blood specimen / Unknown 06/11/2025 8:13 AM EST 06/11/2025 11:08 AM EST Clara Shearer MD LAB BLOOD ORDERABLES Final Resul t [facility] [address] [place] [address] [phone] * Iron And Total Iron Binding Capacity (06/11/2025 8:13 AM EST) Iron 56 30 - 160 mcg/dL [facility] Total Iron Binding Capacity 318 228 - 428 mcg/dL [facility] Percent Iron Saturation 18 15 - 50 % [facility] Unsaturated Iron Binding 262 ug/dL [facility] Blood Venous blood specimen / Unknown 06/11/2025 8:13 AM EST 06/11/2025 11:09 AM EST us Clara Shearer MD LAB BLOOD ORDERABLES Final Resul t Performing Organization Address [facility] de Phone Number [facility] [address] [place] [phone] * (ABNORMAL) Reticulocyte Count (06/11/2025 8:13 AM EST) Reticulocytes Absolute 0.130(H) 0.026 - 0.095 X10*6/uL [facility] Immature Retic Fraction 16.3(H) 3.0 - 15.9 % [facility] Retic HGB Equivalent 32.8 30.0 - 35.0 pg [facility] Reticulocyte Percent 3.2(H) 0.5 - 1.8 % [facility] Blood Venous blood specimen / Unknown 06/11/2025 8:13 AM EST 06/11/2025 11:08 AM EST us Clara Shearer MD LAB BLOOD ORDERABLES Final Resul t Performing Organization Address [facility] Co de Phone Number [facility] [address] [place] [phone] * Hemoglobin A1c (06/11/2025 8:13 AM EST) Hemoglobin A1c 5.5 <6.0 % [facility] Comment:Hemoglobin A1C Refer ence Range Adults: 4.8 - 6.0 % Non diabetic: < 6.0 % Goal: < 7.0 %Additional Action Suggested: > 8.0 %Note: Hemoglobin A1c results are invalid for patients with abnormal amounts of HbF. Blood transfusions may impact the HbA1c concentration in the patient sample. Estimated Average Glucose 111 mg/dL [facility] Comment:eAG = Estimated ave rage glucose which is %A1C expressed asaverage glucose, using the formula of the M0N-PhuzkgsMsxzykp Glucose study (ADAG), Diabetes Care, Vol.31,#8,2007 Blood Venous blood specimen / Unknown 06/11/2025 8:13 AM EST 06/11/2025 11:08 AM EST us Clara Shearer MD LAB BLOOD ORDERABLES Final Resul t Performing Organization Address City/[facility]/ZIP Co de Phone Number [facility] [address] [place] [phone] * Ferritin (06/11/2025 8:13 AM EST) Ferritin 92 10 - 250 ng/mL [facility] Blood Venous blood specimen / Unknown 06/11/2025 8:13 AM EST 06/11/2025 11:09 AM EST us Clara Shearer MD LAB BLOOD ORDERABLES Final Resul t Performing Organization Address [facility] Co de Phone Number [facility] [address] [place] [phone] * (ABNORMAL) Comprehensive Metabolic Panel (06/11/2025 8:13 AM EST) Sodium 137 135 - 145 mmol/L [facility] Potassium 3.8 3.3 - 5.1 mmol/L [facility] Chloride 107 96 - 108 mmol/L [facility] Carbon Dioxide 24 22 - 29 mmol/L [facility] Anion Gap 10(L) 12 - 20 [facility] Urea Nitrogen (BUN) 12 9 - 16 mg/dL [facility] Creatinine, Serum 0.53 0.5 - 1.4 mg/dL [facility] Estimated Glomerular Filt Rate >60 [facility] Comment:Chronic Kidney Disea se: Estimated GFR < 60 mL/min/1.48k3Chzclz Kidney Disease: Estimated GFR < 15 mL/min/1.73m2 Glucose 105 60 - 115 mg/dL [facility] Calcium 9.2 8.4 - 10.2 mg/dL [facility] Bilirubin, Total 0.5 0.0 - 1.0 mg/dL [facility] Aspartate Amino Transferase 153(H) 5 - 31 U/L [facility] Alanine Aminotransferase 267(H) 0 - 31 U/L [facility] Total Protein 7.3 6.5 - 8.0 g/dL [facility] Albumin Level 4.2 3.5 - 5.0 g/dL [facility] Alkaline Phosphatase 119(H) 39 - 117 U/L [facility] Blood Venous blood specimen / Unknown 06/11/2025 8:13 AM EST 06/11/2025 11:09 AM EST us Clara Shearer MD LAB BLOOD ORDERABLES Final Resul t [facility] [address] [place] [phone] * XR Shoulder 2+ Views Right (06/10/2025 11:10 AM EST) Anatomical Region Laterality Modality Upper Extremities, Shoulder Right Radi ographic Imaging 06/10/2025 11:1 0 AM EST Narrative 06/10/2025 3:02 PM EST [facility] [address] [place] [address] XRay Report Signed Patient: Thalia Martell MR#: [id number] 2088 : 1975 Acct:[id number] Age/Sex: 50 / F ADM Date: 06/10/25 Loc: HO.HHCX Attending Dr: Clara Shearer MD Ordering Physician: Clara Shearer MD Date of Service: 06/10/25 Procedure(s): XR shoulder RT min 2V Accession Number(s): [id number] cc: Clara Shearer MD Reason for Exam: RT SHOULDER PAIN EXAMINATION: XR SHOULDER, RIGHT CLINICAL INFORMATION: RT SHOULDER PAIN COMPARISON: None available. TECHNIQUE: AP external rotation, Grashey, scapular Y, and axillary views of the right shoulder. FINDINGS: No acute fracture or dislocation. Glenohumeral and acromioclavicular alignment is anatomic with normal joint space. No abnormal soft tissue calcifications. 0.4 cm nodule in the right upper lung. Similar finding seen on the prior chest x-ray 07/21/2016. XR/XR shoulder RT min 2V IMPRESSION: 1. No acute osseous abnormality. 2. There is a 0.4 cm nodule in the right upper lung. Similar finding seen on the prior chest x-ray 07/21/2016. Recommend chest x-ray for direct comparison. Electronically signed by: Titi Tamayo MD 06/10/2025 02:59 PM EST Dictated By: Titi Taamyo MD Signed By: <Electronically signed by Titi Tamayo MD in OV> 06/10/25 1459 DD/ 1110 TD/TT: 06/10/25 1115 Hot Mill Operator: Procedure Note Donotuseinterpreter, Image - 06/10/[address] [address] XRay Report Signed Patient: Yoel Martell#: [id number] 2088 : 1975Acct:[id number] Age/Sex: 50 / FADM Date: 06/10/25 Loc: HO.HHCX Attending Dr: Clara Shearer MD Ordering Physician: Clara Shearer MD Date of Service: 06/10/25 Procedure(s): XR shoulder RT min 2V Accession Number(s): [id number] cc: Clara Shearer MD Reason for Exam: RT SHOULDER PAIN EXAMINATION: XR SHOULDER, RIGHT CLINICAL INFORMATION: RT SHOULDER PAIN COMPARISON: None available. TECHNIQUE: AP external rotation, Grashey, scapular Y, and axillary views of the right shoulder. FINDINGS: No acute fracture or dislocation. Glenohumeral and acromioclavicular alignment is anatomic with normal joint space. No abnormal soft tissue calcifications. 0.4 cm nodule in the right upper lung. Similar finding seen on the prior chest x-ray 07/21/2016. XR/XR shoulder RT min 2V IMPRESSION: 1. No acute osseous abnormality. 2. There is a 0.4 cm nodule in the right upper lung. Similar finding seen on the prior chest x-ray 07/21/2016. Recommend chest x-ray for direct comparison. Electronically signed by: Titi Tamayo MD 06/10/2025 02:59 PM EST RP Dictated By: Titi Tamayo MD Signed By: <Electronically signed by Titi Tamayo MD in OV> 06/10/25 1459 DD/ 1110 TD/TT: 06/10/25 1115 Hot Mill Operator: HB Clara Shearer MD IMG XR PROCEDURES Final Result * POCT urinalysis dipstick manually resulted (CPT 75814) (05/02/2025 3:50 PM EDT) Color, UA Yellow Clarity, UA Clear Glucose, UA Negative Bilirubin, UA Negative Ketones, UA Negative Spec Grav, UA 1.010 Blood, UA Negative Negative, None Detected pH, UA 5.5 Protein, UA Negative Urobilinogen, UA 0.2 Leukocytes, UA Negative Negative, Rare, Trace Nitrite, UA Negative Negative, None Detected Urine (Urine, Random) 05/02/2025 3:50 PM EDT Nabil Jesus MD POINT OF CARE TEST ENTER/EDIT OR DERABLES Final Result * (ABNORMAL) Prothrombin Time-INR (04/17/2025 2:48 PM EDT) Prothrombin Time 65.0(H) 10.9 - 12.4 SEC [facility] INTERNATIONAL NORM RATIO 5.7(HH) 0.9 - 1.1 [facility] Comment:RESULTS OF PT/INR CA LLED [...] Provider LAB BLOOD ORDERAB LES Final Result [facility] [address] [place] [phone] * US Retroperitoneal Complete (04/11/2025 9:01 AM EDT) Anatomical Region Laterality Modality Ultrasound 04/11/2025 9:01 AM EDT Narrative 04/11/2025 9:02 AM EDT [address] [address] Ultrasound Report Signed Patient: Thalia Martell MR#: [id number] 2088 : 1975 Acct:[id number] Age/Sex: 50 / F ADM Date: 04/10/25 Loc: HO.US Attending Dr: Clara Shearer MD Ordering Physician: Clara Shearer MD Date of Service: 04/10/25 Procedure(s): US retroperitoneal comp Accession Number(s): [id number] cc: Clara Shearer MD Reason for Exam: hematuria CLINICAL HISTORY: hematuria US Renal Comparison: None provided Findings: Right kidney normal size and echotexture, 10.9 cm length. Left kidney normal size and echotexture, 12.7 cm length. The dietetics teacher demonstrates mild pelvic fullness bilaterally. It [...] in OV> 04/11/25901 DD/ 0 TD/TT: 04/11/25900 Hot Mill Operator: Procedure Note Donotuseinterpreter, Image - 09/19/[address] [place] [address] Ultrasound Report Signed Patient: Antonina MartellR#: [id number] 2088 : 1975Acct:[id number] Age/Sex: 50 / FADM Date: 04/10/25 Loc: HO.US Attending Dr: Clara Shearer MD Ordering Physician: Clara Shearer MD Date of Service: 04/10/25 Procedure(s): US retroperitoneal comp Accession Number(s): [id number] cc: Clara Shearer MD Reason for Exam: hematuria CLINICAL HISTORY: hematuria US Renal Comparison: None provided Findings: Right kidney normal size and echotexture, 10.9 cm length. Left kidney normal size and echotexture, 12.7 cm length. The dietetics teacher demonstrates mild pelvic fullness bilaterally. It [...] MD in OV> 04/11/25901 DD/ 0 TD/TT: 04/11/25 09 Hot Mill Operator: us Clara Shearer MD IMG US PROCEDURES Edited Result - Final * BI Mammogram Screening Tomosynthesis Bilateral (10/04/2024 3:55 PM EDT) Anatomical Region Laterality Modality Breast Bilateral Mammography 10/04/2024 3:55 PM EDT Narrative 10/13/2024 6:12 PM EDT [address] [place] [address] Mammography Report Signed Patient: Thalia Martell MR#: [id number] : 1975 Acct:[id number] Age/Sex: 49 / F ADM Date: 10/04/24 Loc: MARIE Attending Dr: Clara Shearer MD Ordering Physician: Clara Shearer MD Results: 1Negative Date of Service: 10/04/24 Follow Up: 1 Year From Orig ina Mammogram Procedure(s): MM tomosynthesis screening BI Accession Number(s): [id number] cc: Clara Shearer MD EXAMINATION: MM SCREENING [...] 10/13/24 1809 DD/ 1555 TD/TT: 10/04/24 1608 Hot Mill Operator: Procedure Note Donotuseinterpreter, Image - 10/13/2024 [facility] [address] [place] [address] Dr. [place], [place] [address] Mammography Report Signed Patient: Yoel Martell#: [id number] 2088 : 1975Acct:[id number] Age/Sex: 49 / FADM Date: 10/04/24 Loc: HO.MAMMO Attending Dr: Clara Shearer MD Ordering Physician: Clara Shearer MDResults: 1Negative Date of Service: 10/04/24Follow Up: 1 Year From Orig ina Mammogram Procedure(s): MM tomosynthesis screening BI Accession Number(s): [id number] cc: Clara Shearer MD EXAMINATION: MM SCREENING [...] 10/13/24 1809 DD/ 1555 TD/TT: 10/04/24 1608 Hot Mill Operator: Clara Shearer MD [facility] PROCEDURES Edited Result - Final * Hepatitis Panel, General (12/11/2023 4:30 PM EDT) Hepatitis A IgM Nonreactive Nonreactive [facility] Comment:IgM antibodies to HEMPHILL V not detected; does not exclude earlyacute or recovered HAV infection. ~Hepatitis B Surface Antibody REACTIVE Nonreactive [facility] Comment:REACTIVE: > 11.99 mI U/mL Hepatitis B Core Antibody Nonreactive Nonreactive [facility] Hepatitis C Antibody Nonreactive Nonreactive [facility] Comment:Antibodies to HCV no t detected; does not exclude early acuteHCV infection. Hepatitis B Surface Ag Negative Negative [facility] 12/11/2023 4:30 PM EDT 12/11/2023 4:33 PM EDT us Generic External Data Provider LAB BLOOD ORDERAB LES Final Result Performing Organization Address City/[facility] Co de Phone Number [facility] [address] [place] [phone] * HIV-1 RNA, Quantitative, Real-Time PCR (12/15/2022 8:09 AM EDT) Pathologist [facility] HIV 1 RNA, QN PCR NOT DETECTED NOT DETECTED copies/mL [facility] [place] [employer] HIV 1 RNA, QN PCR NOT DETECTED NOT DETECTED Log copies/mL [facility] [place] [facility] Comment: This test was performed using Real-Time Polymerase Chain Reaction. Reportable Range: 20 copies/mL to 10,000,000 copies/mL (1.30 log copies/mL to 7.00 log copies/mL). Blood Venous blood specimen / Unknown 12/15/2022 8:09 AM EDT 12/15/2022 8:10 AM EDT Narrative [facility] - 12/23/2022 6:53 PM EDT FASTING:NO FASTING: NO Yany Cosby JUKE [employer]OX MECHANIC LAB BLOOD ORDERABLES Final Res ult Performing Organization Address [facility] de Phone Number [facility] [address], [place] [phone] [facility] [place] [employer] [address] [place] [phone] * THINPREP PAP (11/13/2020 4:51 PM EDT) Pathologist [facility] Clinical Information: None given [facility] [...] along with historic and current clinical information. [employer] Lith[employer] Press Operator : SEE COMMENT [facility] Comment: RK, CT(ASCP) CT screening location: [place] [address] Interpretation/R esult: Negative for intraepithelial lesion or malignancy. [facility] LMP: NONE GIVEN [facility] Prev. BX: NONE GIVEN [facility] Prev. PAP: NONE GIVEN [facility] Review [employer] Operator : SEE COMMENT [facility] Comment: BLC,CT(ASCP) CT screening location: [address] [address] SOURCE: None given [facility] Statement Of Adequacy: SEE COMMENT [facility] Comment: Satisfactory for evaluation. Endocervical/transformation zone component present. Age and/or menstrual status not provided 11/13/2020 4:51 PM EDT us Ginette Her NP LAB PATHOLOGY ORDERABLES Final Result Performing Organization Address [facility] Co de Phone Number [facility] [address] * HPV GENOTYPES 16,18/45 (11/13/2020 4:51 PM EDT) HPV 16 RNA NOT DETECTED NOT DETECTED [facility] HPV 18/45 RNA NOT DETECTED NOT DETECTED [facility] Comment: Methodology: Guide Rail Cleaner Mediated Amplification The analytical performance characteristics of this assay have been determined by [facility]. The modifications have not been cleared or approved by the FDA. This assay has been validated pursuant to the CLIA regulations and is used for clinical purposes. 11/13/2020 4:51 PM EDT us Ginette Her PHARMACY DISTRICT MANAGER LAB CYTOLOGY ORDERABLES Final R esult Performing Organization Address [facility] Co de Phone Number [facility] [facility] [id number] from Last 3 Months or Most Recently Relevant to Health Maintenance Insurance [facility] 2 DENTAL - HSN PARTIAL (MEDICAID) Care Teams Title Abstractor Relationship Specialty Start Date End Date Clara Shearer MD [address] [place] [id number] PCP - General Family Medicine 07/24/18
--- OUTSIDE RECORDS SUMMARY | 2025-06-18 08:23 | XMS_ITS | Clinical Summary ---
Author Organization [facility] Address [address] [place] [address] Phone Care Team Providers Care Funeral Home Attendant Name Role Phone Clara Shearer MD Primary Care Provider [phone] Allergies No known active allergies Medications cholecalciferol (VITAMIN D3) 2,000 unit capsule Take by mouth daily. 12/14/19 22 Active FEROSUL 325 mg (65 mg iron) tablet Take 1 tablet by mouth 2 (two) times a day. 12/14/19 22 Active PROCTOZONE-HC 2.5 % rectal cream APPLY RECTALLY 2 TO 4 TIMES DAILY NEEDED FOR HEMORRHOIDS 12/14/19 22 Active MULTIVITAMIN tablet Take 1 tablet by mouth daily. with food 12/14/19 22 Active warfarin (COUMADIN) 2 MG tablet Hold 06/13, then 6daily with 3mg on Monday. recheck 06/18 at [facility] 07/15/20 22 Active BABY ASPIRIN ORAL Take 81 mg by mouth daily. States has not taken since surgery 05/28/20 25 Active ascorbic acid, vitamin C, (VITAMIN C) [...] mouth daily as needed for allergies. 05/10/20 Active fluoride, sodium, (PREVIDENT 5000 PLUS) 1.1 % Crea Place 1 mg onto teeth. 03/06/20 Active cyclobenzaprine (FLEXERIL) 5 MG tablet Take 5 mg by mouth 3 (three) times a day as needed for muscle spasms. 03/06/20 Active senna (SENOKOT) 8.6 mg tablet Take 2 tablets by mouth nightly at bedtime. 30 tablet 06/02/20 Active acetaminophen (TYLENOL) 325 mg tablet Take 2 tablets (650 mg total) by mouth every 6 (six) hours. 120 tablet 06/02/20 Active simethicone 125 mg Cap Take 1 capsule (125 mg total) by mouth 4 (four) times a day as needed (As needed for gas pains). 28 capsule 06/02/20 Active senna (SENOKOT) 8.6 mg tablet Take 2 tablets by mouth nightly at bedtime. 30 tablet 05/08/20 Discontin ued(Reord er) acetaminophen (TYLENOL) 325 mg tablet Take 2 tablets (650 mg total) by mouth every 6 (six) hours. 120 tablet 05/08/20 Discontin ued(Reord er) oxyCODONE 5 MG immediate release tablet Take 0.5-1 tablets (2.5-5 mg total) by mouth every 4 (four) hours as needed for pain (specific location in comments). Partial fill ok 3 tablet 05/08/20 Discontin ued(No longer taking) enoxaparin (LOVENOX) 80 mg/0.8 mL Syrg subcutaneous injection syringe [The details of the medication are not available because there are pending changes by a home health clinician.] 22.4 mL 05/08/20 Discontin ued(No longer taking) senna (SENOKOT) 8.6 mg tablet Take 2 tablets by mouth nightly at bedtime. 30 tablet 05/23/20 025 Discontin ued(Reord er) simethicone 125 mg Cap Take 1 capsule (125 mg total) by mouth 4 (four) times a day as needed (As needed for gas pains). 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; no longer on the medication due to hypotension / dizziness - continue following with railroad conductor, [facility] Dr Haynes - last TTE in January 2022, mild mitral valve stenosis - continue current treatment plan per cardiology Chronic anticoagulation 11/22/2022 Overview (11/28/2023): Last Assessment & Plan: - indication: Aortic valve replacement - medication warfarin - goal INR 2-3 - followed by [facility] anticoagulation clinic - last INR was 2.0 on 03/01/23 - continue current management plan Abnormal uterine bleeding 11/08/2022 Overview (11/28/2023): Last Assessment & Plan: s/p Endometrial Curetting's, polyp, benign -Pt has follow-up appointment with STRIP MACHINE OPERATOR -Pt is on Coumadin -Pt requested Hysterectomy, pt will follow-up with STRIP MACHINE OPERATOR with possible hysterectomy in future Vitamin D deficiency 12/04/2018 Overview (11/28/2023): Last Assessment & Plan: -continue vitamin D supplement History of mechanical aortic valve replacement 0 04/07/2015 Overview (11/28/2023): Last Assessment & Plan: - 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 Mechanical aortic valve functioning normally. Moderate mitral valve stenosis. No regurgitation. - Continue warfarin - Continue SBE prophylaxis. Allergic rhinitis 12/09/2013 Aortic valve regurgitation 07/25/2013 Overview (11/28/2023): Last Assessment & Plan: [facility] last seen in Aug 2023 - [...] Encounters Date Type Department Care Team Description 06/13/2025 11:00 AM EST Home Care Visit [facility] [address] [place] [address] Darlin Car RN SN OASIS DISCHARGE VISIT 06/13/2025 10:15 AM EST Home Care Visit [facility] [address] [place] [address] Roseanne Marsh, PT PT EVALUATION 06/11/2025 Home Care Visit [facility] [address] [place] [address] Darlin Car, RN TELEPHONE ENCOUNTER 06/11/2025 Home Care Visit [facility] [address], [place] [phone] Darlin Car, RN TELEPHONE ENCOUNTER 06/10/2025 7:00 AM EST Home Care Visit [facility] [address] [place] [address] Joseph Cates LPN MANAGER CARGO HOME VISIT 06/04/2025 Episode Documentation Update [facility] [address] [place] [address] 06/03/2025 10:30 AM EST Home Care Visit [facility] [address] [place] [address] Chelsea Gutierrez RN SN HOME VISIT 06/03/2025 Home Care Visit [facility] [address] [place] [address] Chelsea Gutierrez RN CASE COMMUNICATION 06/02/2025 1:00 PM EST Follow-Up [facility] On[facility] [address] [place] [address], [address] [place] [phone] Jaja Huber MD S/P hysterectomy (Primary Dx) 05/29/2025 11:00 AM EST Home Care Visit [facility] [address] [place] [address] Darlin Car, EVY SN HOME VISIT 05/28/2025 9:30 AM EST Home Care Visit [facility] [address] [place] [address] Darlin Car, EVY SN PRN HOME VISIT 05/28/2025 Documentation [facility] [address] [place] [address], [address] [place] [address] Leslie Devlin, EVY 05/28/2025 Home Care Visit [facility] [address] [place] [address] Meliza Devi, EVY TELEPHONE ENCOUNTER 05/27/2025 12:00 PM EST Home Care Visit [facility] [address] [place] [address] Chelsea Gutierrez, RN SN HOME VISIT 05/27/2025 Home Care Visit [facility] [address], [place] [phone] Chelsea Gutierrez, RN CASE COMMUNICATION 05/23/2025 11:00 AM EDT Home Care Visit [facility] [address] [place], [place] [phone] Darlin Car, RN SN HOME VISIT 05/23/2025 Refill [facility] [address] [place] [address] ASB1-3, [address] [place] [phone] Bonnie Sosa, RN 05/22/2025 Episode Documentation Update [facility] [address] [place] [address] Megan Manning 05/21/2025 Episode Documentation Update [facility] [address] [place] [address] Guadalupe Conde 05/20/2025 11:50 AM EDT - 05/20/2025 11:59 PM EDT Hospital Encounter [facility] Specimen Processing [address] [place] [address] Jaja Huber DO Discharge Disposition: Home or Self Care 05/20/2025 11:30 AM EDT [facility] [address] [place] [address] Debra Salinas, EVY SN HOME VISIT 05/20/2025 Transcribe Orders [facility] [address] [place] [address] Jaja Huber DO Urinary tract infection without hematuria, site unspecified (Primary Dx) 05/17/2025 Home Care Visit [facility] [address] [place] [address] Alejandrina Hall, GAME ARTIST CLINICAL COMMUNICATION 05/16/2025 5:00 AM EDT Home Care Visit [facility] [address] [place] [address] Joseph Cates LPN LPN HOME VISIT 05/14/2025 Telephone [facility] [address] [place] [address], Suite [facility] [place] [address] Bonnie Sosa, RN FMLA paperwork 05/14/2025 Home Care Visit [facility] [address] [place] [address] Katy Anderson RN CASE COMMUNICATION 05/14/2025 Telephone [facility] [address] [place] [address], [address] [place] [address] Leslie Devlin, EVY 05/14/2025 Orders Only [facility] [address] [place] [address], [address] [place] [address] Leslie Devlin RN Hematuria (Primary Dx) 05/13/2025 Home Care Visit [facility] [address] [place] [address] Joseph Cates LPN LPN HOME VISIT 05/12/2025 Episode Documentation Update [facility] [address] [place] [address] 05/10/2025 7:30 AM EDT Home Care Visit [facility] [address] [place] [address] Darlin Car, EVY SN OASIS START OF CARE (SOC) 05/10/2025 Plan of Care Documentation [facility] [address] [place] [address] 05/08/2025 Orders Only [facility] [address] [place] [address] Homehealth, Suresh Thomas MD 05/06/2025 11:14 AM EDT Anesthesia Event [facility] Periop [address] [place] [address] Jovana Bunn MBBS, Eryn Holland CRNA 05/06/2025 11:08 AM EDT - 05/06/2025 1:26 PM EDT Surgery [facility] Periop [address] [place] [address] Jaja Huber MD LAPAROSCOPIC TOTAL HYSTERECTOMY, BILATERAL SALPINGECTOMY, RIGHT OOPHERECTOMY, OMENTAL BIOPSY 05/06/2025 Procedure Pass [facility] Periop [address] [place] [address] 05/05/2025 Procedure Pass [facility] Echocardiography [address] [place] [address] 05/04/2025 8:54 PM EDT - 05/09/2025 11:16 AM EDT Hospital Encounter [facility] CWN [address] [place] [address] Benita Webster MD Davis, Michelle R, MD Kopp, MD Maribeth Harrison, Raul Saul MD Discharge Disposition: Home-Health Care [facility] 05/04/2025 1:16 PM EDT - 05/04/2025 7:05 PM EDT Emergency [facility] [address] [place] [address] Discharge Disposition: Critical Access Hospital 05/04/2025 Procedure Pass [facility], Ct Scan - [facility] [address] [place] [address] from Last 3 Months Immunizations Immunization Administration [...] EST Inhaled Oxygen Concentration - - Weight 68 kg (150 lb) 06/02/2025 11:56 AM EST Height 149.9 cm (4' 11 ) 06/02/2025 11:56 AM EST Body Mass Index 30.3 06/02/2025 11:56 AM EST Plan of Treatment Upcoming Encounters Date Type Department Care Team ([facility] st Contact Info) Description 07/04/2025 10:45 AM EST Follow-Up [facility] [employer] [facility] [address] [place] [address], [address] [place] [address] Jaja Huber MD [address] [place], [place] [phone] [email or web address] Health Maintenance Due Date Last Done Comments DEPRESSION SCREENING 1989 HEPATITIS C SCREENING 1995 HIV ONE-TIME SCREENING (18-65 YEARS) 1995 PAP SMEAR 1998 COLOGUARD 2022 COLONOSCOPY 2022 COLORECTAL CANCER SCREENING 2022 FIT TEST 2022 FOBT 2022 SIGMOIDOSCOPY 2022 VIRTUAL COLONOSCOPY 2022 MAMMOGRAM 12/23/2024 12/23/2022, 06/0 08/2022, 09/05/2019 COVID-19 VACCINE (2024- season) 2025 12/30/2024, 05/09/2023, 11/06/2020, Additional history [...] this topic Medical Devices Implanted Type Area Elementary Assistant Teacher Device Identifier Shelf Expiration Date Model / Serial / Lot Prosthetic Valve Prosthetic Valve Aorta Description:Aortic valve rep lacement in 2009 pt does not know which type of aortic valve was implanted Device Contraceptive 52mg Iud Mirena - Must Order In Multiples Of 5 - [id number] Implanted:Qty: 1 on 08/19/2022 by Ronald Estrada MD at [facility] N/A: Uterus REGISTRAT-MAPI 06/22/2024 [id number] / / [id number] Procedures Procedure Name Priority Date/Time Associated Diagnosis Comments URINE CULTURE Routine 05/20/2025 11:54 AM EDT Urinary tract infection without hematuria, site unspecified PT-INR Routine 05/09/2025 5:24 AM EDT MAGNESIUM Timed 05/09/2025 5:24 AM EDT BASIC METABOLIC PANEL (BMP) Routine 05/09/2025 5:24 AM EDT CBC Routine 05/09/2025 5:24 AM EDT PT-INR Timed 05/08/2025 9:14 AM EDT PTT Timed 05/08/2025 9:14 AM EDT MAGNESIUM Timed 05/08/2025 5:27 AM EDT BASIC METABOLIC PANEL (BMP) Routine 05/08/2025 5:27 AM EDT CBC Routine 05/08/2025 5:27 AM EDT PTT STAT 05/08/2025 2:20 AM EDT ECG 12-LEAD Routine 05/07/2025 8:36 PM EDT PTT Timed 05/07/2025 8:28 PM EDT CBC Timed 05/07/2025 1:50 PM EDT PT-INR Routine 05/07/2025 1:50 PM EDT PTT Timed 05/07/2025 1:50 PM EDT DIC SCREEN STAT 05/07/2025 8:26 AM EDT CBC STAT 05/07/2025 8:26 AM EDT PTT Routine 05/07/2025 5:46 AM EDT PT-INR Routine 05/07/2025 5:46 AM EDT MAGNESIUM Timed 05/07/2025 5:46 AM EDT BASIC METABOLIC PANEL (BMP) Routine 05/07/2025 5:46 AM EDT CBC Routine 05/07/2025 5:46 AM EDT POCT GLUCOSE Routine 05/06/2025 2:02 PM EDT PREPARE RBC STAT 05/06/2025 2:01 PM EDT FIBRINOGEN Routine 05/06/2025 2:00 PM EDT PTT Routine 05/06/2025 2:00 PM EDT PT-INR Routine 05/06/2025 2:00 PM EDT MAGNESIUM Routine 05/06/2025 2:00 PM EDT BASIC METABOLIC PANEL (BMP) Routine 05/06/2025 2:00 PM EDT CBC Routine 05/06/2025 2:00 PM EDT POCT GLUCOSE Routine 05/06/2025 11:55 AM EDT AIRWAY PLACEMENT Routine 05/06/2025 11:2 5 AM EDT [place],DIAGNOSTIC ABDOMEN 05/06/2025 10:42 AM EDT Pelvic mass PTT Timed 05/06/2025 9:52 AM EDT POCT GLUCOSE Routine 05/06/2025 8:44 AM EDT PT-INR Routine 05/06/2025 5:17 AM EDT CBC Routine 05/06/2025 5:17 AM EDT BASIC METABOLIC PANEL (BMP) Routine 05/06/2025 5:17 AM EDT PTT Timed 05/06/2025 2:45 AM EDT NON-STRIP MACHINE OPERATOR CYTOLOGY, NON CSF, NON URINE Routine 05/06/2025 12:00 AM EDT ANATOMIC PATHOLOGY Routine 05/06/2025 12 :00 AM EDT PTT Routine 05/05/2025 9:50 PM [...] 05/04/2025 9:34 PM EDT BASIC METABOLIC PANEL (BMP) STAT 05/04/2025 9:34 PM EDT MAGNESIUM STAT 05/04/2025 9:34 PM EDT CBC AND DIFFERENTIAL STAT 05/04/2025 9:34 PM EDT ECG 12-LEAD STAT 05/04/2025 9:29 PM EDT HUMAN EPIDIDYMIS PROTEIN 4, BLOOD STAT 05/04/2025 5:06 PM EDT BLOOD BANK HOLD SPECIMEN STAT 025 5:06 PM EDT CBC AND DIFFERENTIAL STAT 05/04/2025 5:06 PM EDT PT-INR STAT 05/04/2025 5:06 PM EDT CA-125 STAT 05/04/2025 5:[address] ABDOMEN/PELVIS WITH CONTRAST Routine 05/04/2025 3:16 PM EDT LIPASE STAT 05/04/2025 1:40 PM EDT LFTS (HEPATIC PANEL) STAT 05/04/2025 1:40 PM EDT HCG, SERUM QUALITATIVE STAT 1:40 PM EDT BASIC METABOLIC PANEL (BMP) STAT 05/04/2025 1:40 PM EDT CBC AND DIFFERENTIAL STAT 05/04/2025 1:40 PM EDT URINE SEDIMENT STAT 05/04/2025 1:19 PM EDT URINALYSIS WITH REFLEX TO URINE CULTURE STAT 05/04/2025 1:19 PM EDT from Last 3 Months Results * Urine Culture (05/20/2025 11:54 AM EDT) Pathologist [facility] Special Requests None 05/20/2025 11:54 AM EDT [facility] Urine Culture <10,000 colony forming units per mL 05/21/2025 11:43 AM EDT [facility] Urine (Urine) 05/20/2025 11: 54 AM EDT 05/20/2025 11:59 AM EDT us Jaja Huber DO LAB MICROBIOLOGY CULTURE ORDER DOREEN Final Result [address] [address] * (ABNORMAL) PT-INR (05/09/2025 5:24 AM EDT) Only the most recent of12 resultswithin the time period is included. PT 15.2(H) 10.0 - 13.0 sec [facility] INR 1.3(H) 0.9 - 1.1 [facility] Blood 05/09/2025 5:24 AM EDT 05/09/2025 6:12 AM EDT Leslie Perez PA-C LAB BLOOD BKR ORDERA BLES Final Result Performing Organization Address [place]/[facility] Co de Phone Number [facility] [address] [place] [address] * (ABNORMAL) CBC (05/09/2025 5:24 AM EDT) Only the most recent of10 resultswithin the time period is included. WBC 4.64 4.00 - 11.00 K/uL [facility] RBC 3.41(L) 4.00 - 5.20 M/uL [facility] HGB 10.4(L) 12.0 - 16.0 g/dL [facility] HCT 32.3(L) 36.0 - 46.0 % [facility] PLT 316 150 - 450 K/uL [facility] MCV 94.7 80.0 - 100.0 fL [facility] MCH 30.5 27.0 - 31.0 pg [facility] MCHC 32.2 32.0 - 36.0 g/dL [facility] RDW 14.3 11.5 - 14.5 % [facility] MPV 9.0 8.4 - 12.0 fL [facility] NRBC 0.00 0.00 /100 WBCs [facility] ABSOLUTE NRBC 0.00 0.00 K/uL [facility] Blood 05/09/2025 5:24 AM EDT 05/09/2025 6:12 AM EDT Jaja Huber MD LAB BLOOD BKR ORDERABLES Fin al Result Performing Organization Address City/[facility]/ZIP Co de Phone Number [address] [address] * Magnesium (05/09/2025 5:24 AM EDT) Only the most recent of5 resultswithin the time period is included. MAGNESIUM 2.0 1.7 - 2.6 mg/dL [facility] Blood 05/09/2025 5:24 AM EDT 05/09/2025 6:12 AM EDT [facility]LOOD BKR ORDERA BLES Final Result Performing Organization Address [place]/[facility] de Phone Number [facility] [address] [place] [address] * Basic metabolic panel (05/09/2025 5:24 AM EDT) Only the most recent of7 resultswithin the time period is included. SODIUM 139 136 - 145 mmol/L [facility] POTASSIUM 3.9 3.4 - 5.1 mmol/L [facility] CHLORIDE 105 98 - 107 mmol/L [facility] CO2 24 22 - 31 mmol/L [facility] BUN 9 6 - 23 mg/dL [facility] CREATININE 0.50 0.50 - 1.20 mg/dL [facility] GLUCOSE 87 70 - 100 mg/dL [facility] CALCIUM 9.1 8.8 - 10.7 mg/dL [facility] EGFR 116 >59 mL/min/1.7 3m2 [facility] Comment:Estimated glomerular filtration rate calculated using the CKD-EPI refit equation. ANION GAP 10 7 - 17 mmol/L [facility] Blood 05/09/2025 5:24 AM EDT 05/09/2025 6:12 AM EDT [facility] LAB BLOOD BKR ORDERA BLES Final Result Performing Organization Address [place]/[facility] de Phone Number [address] [address] * (ABNORMAL) PTT (05/08/2025 9:14 AM EDT) Only the most recent of11 resultswithin the time period is included. APTT 74.7(H) 24.0 - 37.5 sec [facility] Comment:Emicizumab (Hemlibra ) treatment can result in falsely lowered aPTT test results. Blood 05/08/2025 9:14 AM EDT 05/08/2025 9:19 AM EDT Jaja Huber MD LAB BLOOD BKR ORDERABLES Fin al Result Performing Organization Address [place]/[facility] Co de Phone Number [facility] [address] [place] [phone] * ECG 12-LEAD (05/07/2025 8:36 PM EDT) Only the most recent of2 resultswithin the time period is included. Ventricular Rate EKG/MIN 70 BPM [facility] Atrial Rate 70 BPM [facility] [place] Interval 156 ms [facility] QRS Duration 122 ms [facility] QT Interval 428 ms [facility] QTC Interval 462 ms [facility] P Dexter 16 degrees [facility] R Wave Dexter 50 degrees [facility] T Wave Dexter 81 degrees [facility] 05/07/2025 8:36 PM EDT Narrative [facility] - 05/21/2025 2:29 PM EDT Normal sinus rhythm Right bundle branch block Abnormal ECG When compared with ECG of 04-May-2025 21:29, No significant change was found Jaja Huber MD ECG ORDERABLES Final Result Performing Organization Address City/[facility] Co de Phone Number [facility] * (ABNORMAL) DIC screen (05/07/2025 8:26 AM EDT) PT 12.3 10.0 - 13.0 sec [facility] INR 1.1 0.9 - 1.1 [facility] APTT 27.9 24.0 - 37.5 sec [facility] Comment:Emicizumab (Hemlibra ) treatment can result in falsely lowered aPTT test results. FIBRINOGEN 774(H) 200 - 400 mg/dL [facility] Blood 05/07/2025 8:26 AM EDT 05/07/2025 8:30 AM EDT us Leslie Perez PA-C LAB BLOOD BKR ORDERA BLES Final Result Performing Organization Address [place]/[facility]/ZIP Co de Phone Number [facility] [address] [place] [phone] * (ABNORMAL) POCT Glucose (05/06/2025 2:02 PM EDT) Only the most recent of3 resultswithin the time period is included. Glucose, POCT 166(H) 70 - 100 mg/dL [facility] 05/06/2025 2:02 PM EDT 05/06/2025 2:04 PM EDT us Jaja Huber MD POINT OF CARE TEST ORDERABLE S Final Result Performing Organization Address [place]/[facility] Co de Phone Number [facility] [address] [place] [phone] * Prepare RBC, 2 Units (05/06/2025 2:01 PM EDT) Product Code [id number] 05/06/2025 2:01 PM EDT [facility] Unit Number [id number] 05/06/20 25 2:01 PM EDT [facility] ABO of Unit O 05/06/2025 2:01 PM EDT [facility] Rh of Unit POS 05/06/2025 2:01 PM EDT [facility] Crossmatch Interpretation Compatible 05/06/2025 8:29 AM EDT [facility] Product Status No Longer Ready 05/06 2:01 PM EDT [facility] Expiration Date/Time [id number] 05/06/2025 2:01 PM EDT [facility] Blood Type Barcode 5100 05/06/2025 2:01 PM EDT [facility] Unit Volume 300 mL 05/06/2025 2:01 PM EDT [facility] Product Code [id number] 05/06/2025 2:01 PM EDT [facility] Unit Number [id number] 05/06/20 2:01 PM EDT [facility] ABO of Unit O 05/06/2025 2:01 PM EDT [facility] Rh of Unit POS 05/06/2025 2:01 PM EDT [facility] Crossmatch Interpretation Compatible 05/06/2025 8:29 AM EDT [facility] Product Status No Longer Ready 05/06 2:01 PM EDT [facility] Expiration Date/Time [id number] 05/06/2025 2:01 PM EDT [facility] Blood Type Barcode 5100 05/06/2025 2:01 PM EDT [facility] Unit Volume 300 mL 05/06/2025 2:01 PM EDT [facility] us Eryn Marcos [facility] BLOOD BANK PRODUCT ORD ERABLES Final Result Performing Organization Address City/[facility] Co de Phone Number [facility] [address] [place] [phone] * (ABNORMAL) Fibrinogen (05/06/2025 2:00 PM EDT) FIBRINOGEN 749(H) 200 - 400 mg/dL [facility] Blood 05/06/2025 2:00 PM EDT 05/06/2025 2:05 PM EDT us Jaja Huber MD LAB BLOOD BKR ORDERABLES Fin al Result Performing Organization Address City/[facility]/ZIP Co de Phone Number [facility] [address] [place] [phone] * ANES ETT DOUBLE LUMEN - AIRWAY LDA (05/06/2025 11:25 AM EDT) Narrative Eryn Marcos CRNA - 05/06/2025 11:25 AM EDT Eryn Marcos CRNA 05/06/2025 11:50 AM Airway Placement Procedure Note: Patient was not difficult to intubate. Procedure performed by: fellow/resident/COLOR LABORATORY TECHNICIAN and anesthesiologist Anesthesiologist: Jovana Bunn MBBS, MD Fellow/Resident/COLOR LABORATORY TECHNICIAN: Eryn Marcos CRNA Airway procedure initiated at:05/06/2025 [...] clear lung sounds. us Jovana AGUERO MD [place] ANESTHESIA Fin al Result * Non-Breakdown Mill Operator Cytology (05/06/2025 12:00 AM EDT) Results\Interpreta tion NON-DIAGNOSTIC SPECIMEN. [facility] Final Diagnosis Abundant blood. [facility] Notes and Recommendations NOTE: Insufficient cellular material for evaluation. Appropriate follow-up is recommended. [facility] Total Slides TotSlide1 [facility] Procedure Comments ProcThinPrep (non-Breakdown Mill Operator) - [facility] Report Accession No: [id number] Date: 1975 Sex: F [facility] Department of Pathology [address] [place] [address] CLIA License No.: [id number] Tax Accounting Manager: Jack Clrak MD, PhD Physician: JAJA HUBER MD Procedure Date: 05/06/2025 Stoner Hand: KADEN Resendez(ASCP) Pathologist: Debbie Merritt M.D. PERITONEAL [...] on Friday May 09, 2025 at 05:38:55PM [facility] Conversion Type (Peritoneum) 05/06/2025 05/06/2025 us Jaja Huber MD CYTOLOGY ORDERABLES Edited R esult - Final [facility] * Anatomic Pathology (Non-MGB) (05/06/2025 12:00 AM EDT) 05/06/2025 05/06/2025 Narrative [facility] - 05/27/2025 9:24 PM EST CASE: [id number] PATIENT: OMAR MARTELL Date: 1975 Sex: Female [facility] Department of Pathology [address] [place] [address] CLIA License No.: [id number] Tax Accounting Manager: Dr. Tani Briceno M.D., Ph.D. Physician: JAJA HUBER MD Procedure Date: 05/06/2025 Resident: Chris Dietrich MD, PhD Pathologist: Musacide Stacey Ordulu Sahin, M.D. PATHOLOGIC DIAGNOSIS: A. UTERUS, CERVIX, LEFT FALLOPIAN TUBE: Uterus: - Altered endometrium with gland and stromal changes consistent with hormonal therapy. - Adenomyosis - Unremarkable serosa - Cervix with squamous metaplasia and Nabothian cysts Left Fallopian Tube: - No significant pathologic change. B. RIGHT FALLOPIAN TUBE AND OVARY: Ovary: Hemorrhagic simple cyst, consistent with corpus luteum cyst. Fallopian tube: - No significant pathologic change. C. OMENTAL BIOPSY: Fibroadipose tissue with hemorrhage and reactive changes. CLINICAL DATA: History: Pelvic mass. TISSUE SUBMITTED: A/1. Uterus, cervix, left tube B/2. Right tube and ovary C/3. Omental biopsy O.R. CONSULTATION: SPECIMEN LABELED: B. RIGHT TUBE AND OVARY (FSB): Ovary with hemorrhage and corpus luteum. OR Consultation by: Kieran Finley M.D. Resident: Manny Araujo M.D., Ph.D. The senior physician certifies that he/she personally conducted a gross and/or microscopic examination of the described specimen(s) and rendered or confirmed the rapid diagnos(es) related thereto. GROSS DESCRIPTION: The specimen is received in 3 parts, each labeled with the patient's name and medical record number. Part A received fresh labeled Uterus, cervix, left tube consists of a hysterectomy specimen (119.4 g, 9.2 x 7.0 x 3.8 cm) with left fimbriated fallopian tube (6.2 cm in length and 0.6 cm in diameter. The serosal surface is parnell-pink, smooth and glistening with no areas of fibrous adhesions noted. The exocervix (3.4 x 3.2 cm) is pink-white, smooth and glistening, with a slitlike os (0.9 cm in length). The anterior paracervical tissue is inked blue and the posterior paracervical tissue is inked black. The endocervical canal (3.0 cm in length) is parnell and glistening, with a herringbone mucosa. The endometrial cavity (3.3 cm cornu to cornu x 4.5 cm in length) is lined by a parnell-pink, shaggy endometrium (0.1 cm in average thickness). There is a candidate polyp on the posterior wall at the fundus (2.5 x 0.4 x 0.3 cm) located 7.3 cm from the cervical os. On sectioning, cut surface displays polyp remaining superficial, 2.3 cm from the serosal surface. Diffusely trabecular the myometrium is pink-white and unremarkable (average thickness 2.4 cm). The surface of the left fallopian tube is red-purple, smooth and glistening and displays 2 paratubal cysts (0.4 and 1.2 cm in greatest dimension). The fallopian tube is grossly patent. No ovaries or right fallopian tube are included. Also included is an isolated, intact, white plastic T-shaped intrauterine device (3.4 x 3.3 x 0.3 cm). Shale Processing Technician sections are submitted. A1: Anterior cervix, 1 fragment. A2: Posterior cervix, 1 fragment. A3: Anterior lower uterine segment, 1 fragment. A4: Posterior lower uterine segment, 1 fragment. A5: Anterior endomyometrium plus serosa, 1 fragment. A6: Posterior endomyometrium plus serosa including polyp, 1 fragment. A7: Left fimbria entirely submitted with cross-sections of fallopian tube, 6 fragments. Part B received fresh in the frozen section room labeled Right tube and ovary consists of 224.5 g salpingo-oophorectomy specimen containing disrupted ovary (11.0 x 9.0 x 6.0 cm) and attached fimbriated fallopian tube (8.8 cm in length by 0.6 cm in diameter). The outer surface of the ovary is parnell-red smooth to shaggy and disrupted. Sectioning reveals a dark red, homogenous, hemorrhagic soft tissue. Shale Processing Technician section is submitted as FSB1. There is scant parnell-pink fibrous stroma remaining. The fallopian tube is pink-purple and smooth. Sectioning reveals a patent lumen. Gross photographs are taken. Shale Processing Technician sections are submitted as follows: B1: Remnant of FSB1, 1 fragment. B2-B7: Hemorrhagic ovary, with scant ovarian parenchyma in B7, 2 fragments each. B8: Fimbria entirely submitted with cross-sections of fallopian tube, 6 fragments. Part C received fresh labeled Omental biopsy consists of a portion of yellow-parnell lobular soft tissue grossly consistent with omentum (17.4 x 9.5 x 2.3 cm). On sectioning, cut surface displays yellow-parnell lobular soft tissue with areas of adherent dark red blood clot. No masses or nodules are grossly noted. Shale Processing Technician sections are submitted as follows: C1-C5: Omentum with adherent blood clot, 2 fragments each. Dictated by: Dyan Rayo By his/her signature below, the senior physician certifies that he/she personally conducted a microscopic examination ( gross only exam if so stated) of the described specimen(s) and rendered or confirmed the diagnosis(es) related thereto. Final Diagnosis by Magdaleno Newell M.D., Electronically signed on Tuesday May 27, 2025 at 09:23:37PM us Jaja Huber MD LAB PATHOLOGY ORDERABLES Fin al Result [facility] [address] [place] [address], [place] [address] * TTE COMPREHENSIVE (05/05/2025 2:07 PM EDT) [...] 73 bpm Anatomical Region Laterality Modality Heart [facility] Narrative 05/05/2025 4:09 PM EDT Left ventricular [...] (3). Comparison Findings There are no prior [facility] studies for comparison. us Jaja Huber MD CV ECHO ORDERABLES Final Res ult * Inhibin A & B, tumor marker (05/05/2025 8:54 AM EDT) INHBN A TUMOR ANTELMO. 9.5 pg/mL [facility] Comment: (NOTE) REFERENCE VALUE <98 (Premenopausal) <5.0 (Postmenopausal) ADDITIONAL INFORMATION This test has been modified from the duster tender's instructions. Its performance characteristics were determined by [facility] in a manner consistent with CLIA requirements. This test has not been cleared or approved by the U.S. Food and Drug Administration. The testing method is an immunoenzymatic assay manufactured by [employer]. and performed on the Search[employer] 800. Values obtained with different assay methods or kits may be different and cannot be used interchangeably. Test results cannot be interpreted as absolute evidence for the presence or absence of malignant disease. Inhibin A values are not interpretable in females for the investigation of malignant disease. INHIBN B, INFERTILITY <10 pg/mL [facility] Comment: (NOTE) REFERENCE VALUE Premenopausal: <108 pg/mL (Follicular) <80 pg/mL (Luteal) Postmenopausal: <12 pg/mL ADDITIONAL INFORMATION The testing method is a manual immunoenzymatic assay manufactured by [employer]. Values obtained with different assay methods or kits may be different and cannot be used interchangeably. If this test is being ordered as a tumor marker, results cannot be interpreted as absolute evidence for the presence or absence of malignant disease. This test was developed and its performance characteristics determined by [facility] in a manner consistent with CLIA requirements. This test has not been cleared or approved by the U.S. Food and Drug Administration. Blood 05/05/2025 8:54 AM EDT 05/05/2025 9:03 AM EDT us Jaja Huber MD LAB BLOOD ORDERABLES Final R esult [facility] [place] [address] * LDH (05/05/2025 8:54 AM EDT) LDH 212 135 - 225 U/L [facility] Blood 05/05/2025 8:54 AM EDT 05/05/2025 9:03 AM EDT Jaja Huber MD LAB BLOOD BKR ORDERABLES Fin al Result Performing Organization Address [place]/[facility] Co de Phone Number [facility] [address] [place] [address] * CA-19-9 (05/05/2025 8:54 AM EDT) CA 19-9 <1 0 - 35 U/mL [facility] Blood 05/05/2025 8:54 AM EDT 05/05/2025 9:03 AM EDT Jaja Huber MD LAB BLOOD BKR ORDERABLES Fin al Result Performing Organization Address [place]/[facility] Co de Phone Number [facility] [address] [place] [address] * HCG (tumor marker) (05/05/2025 8:54 AM EDT) BETA HCG <1.0 mIU/mL [facility] Comment: Reference Ranges: Female: Premenopausal, Non: 0-5.0 Postmenopausal: 0-8.0 Blood 05/05/2025 8:54 AM EDT 05/05/2025 9:03 AM EDT Jaja Huber MD LAB BLOOD ORDERABLES Final R esult Performing Organization Address City/[facility]/ZIP Co de Phone Number [facility] [address] [place] [address] * AFP (non-maternal specimens) (05/05/2025 8:54 AM EDT) AFP (NON-MATERNAL) <1.8 0 - 8.3 ng/mL [facility] Blood 05/05/2025 8:54 AM EDT 05/05/2025 9:03 AM EDT Jaja Huber MD LAB BLOOD BKR ORDERABLES Fin al Result Performing Organization Address [place]/[facility] Co de Phone Number [facility] [address] [place] [address] * Estradiol (05/05/2025 8:54 AM EDT) ESTRADIOL 7 pg/mL [facility] Comment: Follicular 27-156 Mid-Cycle 50-308 Luteal 35-223 Post-Menopausal 0-47 , 1st Trimester 165-2861 , 2nd Trimester 1567-56700 , 3rd Trimester 19401-95598 This result is quantitatively invalid in patients being treated with fulvestrant(fasolodex). Blood 05/05/2025 8:54 AM EDT 05/05/2025 9:03 AM EDT Jaja Huber MD LAB BLOOD BKR ORDERABLES Fin al Result Performing Organization Address [facility] de Phone Number [facility] [address] [place] [address] * Carcinoembryonic antigen (CEA) (05/05/2025 8:54 AM EDT) CEA 1.5 0 - 3.7 ng/mL [facility] Comment: CEA REFERENCE RANGE: NON-SMOKERS: < 3.8 ng/mL SMOKERS: < 5.0 ng/mL Blood 05/05/2025 8:54 AM EDT 05/05/2025 9:03 AM EDT us Jaja Huber MD LAB BLOOD BKR ORDERABLES Fin al Result Performing Organization Address [place]/[facility] Co de Phone Number [facility] [address] [place] [address] * US PELVIS TRANSABDOMINAL PLUS TRANSVAGINAL (05/04/2025 10:35 PM EDT) MGB IMG ATTENDING PSYCHIATRIST COMMENT Please see finalized report. [facility] Anatomical Region Laterality Modality Pelvis, Uterus/Adnexa Ultrasound [...] initiated on 05/04/2025 11:20 PM, Message ID [id number]. A clinically significant result was initiated on 05/04/2025 11:22 PM, Message ID [id number]. Narrative 05/04/2025 11:23 PM EDT US PELVIS [...] right and left adnexa. Procedure Note Jl Gutierrez Said, [facility] - 05/04/2025 US PELVIS TRANSABDOMINAL AND TRANSVAGINAL [...] was initiated on 05/04/2025 11:20 PM,Message ID [id number]. A clinically significant result was initiated on 05/04/2025 11:22 PM,Message ID [id number]. us Brionna Stone PA-C IMG US PELVIS Final Result * (ABNORMAL) LFTs (hepatic panel) (05/04/2025 9:34 PM EDT) Only the most recent of2 resultswithin the time period is included. TOTAL PROTEIN 6.2(L) 6.4 - 8.3 g/dL [facility] ALBUMIN 3.3(L) 3.5 - 5.2 g/dL [facility] GLOBULIN 2.9 2.2 - 4.2 g/dL [facility] AST 18 10 - 50 U/L [facility] ALT 25 10 - 50 U/L [facility] ALKALINE PHOSPHATASE 54 35 - 130 U/L [facility] TOTAL BILIRUBIN 0.7 0.0 - 1.0 mg/dL [facility] DIRECT BILIRUBIN 0.2 0.0 - 0.3 mg/dL [facility] Blood 05/04/2025 9:34 PM EDT 05/04/2025 9:47 PM EDT Brionna Stone PA-C LAB BLOOD BKR ORDERABLES Danielle dooley Result Performing Organization Address City/State/[facility] Co de Phone Number [facility] [address] [place] [address] * (ABNORMAL) CBC and differential (05/04/2025 9:34 PM EDT) Only the most recent of3 resultswithin the time period is included. WBC 9.31 4.00 - 11.00 K/uL [facility] RBC 2.97(L) 4.00 - 5.20 M/uL [facility] HGB 9.3(L) 12.0 - 16.0 g/dL [facility] HCT 27.7(L) 36.0 - 46.0 % [facility] PLT 150 150 - 450 K/uL [facility] MCV 93.3 80.0 - 100.0 fL [facility] MCH 31.3(H) 27.0 - 31.0 pg [facility] MCHC 33.6 32.0 - 36.0 g/dL [facility] RDW 14.5 11.5 - 14.5 % [facility] MPV 9.3 8.4 - 12.0 fL [facility] NRBC 0.00 0.00 /100 [facility] ABSOLUTE NRBC 0.00 0.00 K/uL [facility] DIFF METHOD Auto [facility] NEUTS 80.1(H) 48.0 - 76.0 % [facility] LYMPHS 11.5(L) 18.0 - 41.0 % [facility] MONOS 7.5 4.0 - 11.0 % [facility] EOS 0.4 0.0 - 5.0 % [facility] BASOS 0.1 0.0 - 1.5 % [facility] % IMMATURE GRANS 0.4 0.0 - 0.9 % [facility] ABSOLUTE NEUTS 7.45 1.92 - 7.60 K/uL [facility] Comment:1.21-5.39 cells/KL i s the reference range for individuals with the Falk null phenotype ABSOLUTE LYMPHS 1.07 0.72 - 4.10 K/uL [facility] ABSOLUTE MONOS 0.70 0.16 - 1.10 K/uL [facility] ABSOLUTE EOS 0.04 0.00 - 0.50 K/uL [facility] ABSOLUTE BASOS 0.01 0.00 - 0.15 K/uL [facility] ABS IMMATURE GRANS 0.04 0.00 - 0.09 K/uL [facility] ABSOLUTE NEUTROPHIL COUNT 7.45 1.92 - 7.60 K/uL [facility] Comment: Automated cell count. Manual ANC may differ if performed. 1.21-5.39 cells/KL is the reference range for individuals with the Falk null phenotype Blood 05/04/2025 9:34 PM EDT 05/04/2025 9:47 PM EDT us Brionna Stone PA-C LAB BLOOD BKR ORDERABLES Danielle l Result [facility] [address] [place] [address] * Type and Screen (ABO,Rh,Antibody Screen) (05/04/2025 9:34 PM EDT) Expiration Date of Sample 05/07/2025 11:59 PM 05/04/2025 11:05 PM EDT [facility] Resulting Agency [facility] ABO Type O 05/04/2025 11:05 PM EDT [facility] Rh Type Positive 05/04/2025 11:05 PM EDT [facility] Antibody Screen Negative 05/04/2025 11:05 PM EDT [facility] Blood 05/04/2025 9:34 PM EDT 05/04/2025 9:50 PM EDT Brionna Stone PA-C LAB BLOOD BANK TEST ORDERABLE S Final Result Performing Organization Address [place]/[facility] Co de Phone Number [facility] [address] [place] [phone] * Lipase (05/04/2025 9:34 PM EDT) Only the most recent of2 resultswithin the time period is included. LIPASE 22 13 - 60 U/L [facility] Comment: Blood 05/04/2025 9:34 PM EDT 05/04/2025 9:47 PM EDT Brionna Stone PA-C LAB BLOOD BKR ORDERABLES Danielle l Result Performing Organization Address City/[facility]/ZIP Co de Phone Number [facility] [address] [place], [place] [phone] * HUMAN EPIDIDYMIS PROTEIN 4, BLOOD (05/04/2025 5:06 PM EDT) Human epididymis protein 4 54 <=140 pmol/L [facility] Comment: (NOTE) ADDITIONAL INFORMATION The testing method is an electrochemiluminescence assay manufactured by [employer] and performed on the Modular or Kali system. Values obtained with different assay methods or kits may be different and cannot be used interchangeably. Test results cannot be interpreted as absolute evidence for the presence or absence of malignant disease. Blood 05/04/2025 5:06 PM EDT 05/04/2025 5:13 PM EDT us Ashleigh Warren PA-C LAB BLOOD ORDERABLES Final Result [facility] [address] [place] [address] * Hold Specimen In Blood Bank (05/04/2025 5:06 PM EDT) Expiration Date of Sample 05/07/2025 ,2359 [facility] Resulting Agency [facility] Blood 05/04/2025 5:06 PM EDT 05/04/2025 5:13 PM EDT Ashleigh Warren PA-C LAB BLOOD BANK TEST ORDERAB LES Final Result Performing Organization Address [facility]/ZIP Co de Phone Number [address] [address] * CA-125 (05/04/2025 5:06 PM EDT) Pathologist [facility] [place] 125 28.5 0 - 35 U/mL [facility] Comment: Test Methodology Yeny [id number] Patient results determined by assays using different manufacturers or methods may not be comparable. Blood 05/04/2025 5:06 PM EDT 05/04/2025 5:13 PM EDT us Ashleigh Warren PA-C LAB BLOOD BKR ORDERABLES Fi nal Result Performing Organization Address [place]/[facility]/ZIP Co de Phone Number [address] [address] * CT ABDOMEN/PELVIS WITH CONTRAST (05/04/2025 3:16 PM EDT) MGB IMG ATTENDING PSYCHIATRIST COMMENT ovarian mass vs hemorrhagic cyst vs torsion. free fluid + blood products, indeterminate for carcinomatosis [facility] Anatomical Region Laterality Modality Abdomen, Pelvis Computed [...] initiated on 05/04/2025 4:42 PM, Message ID [id number]. ATTESTATION: I, Jack Bowers as teaching physician, [...] was initiated on 05/04/2025 4:42 PM,Message ID [id number]. ATTESTATION: I, Jack Bowers as teaching physician, have reviewed theimages for this case and if necessary edited the report originally createdby Sophie Merino MD. us Ashleigh Warren PA-C IMG CT ABD/PELVIS Final Res ult * HCG, serum qualitative (05/04/2025 1:40 PM EDT) HCG, QUALITATIVE Negative Negative IU/L [facility] Blood 05/04/2025 1:40 PM EDT 05/04/2025 1:51 PM EDT Alberto Vasques MD LAB BLOOD BKR ORDERABLES Final R esult Performing Organization Address [place]/[facility] Co de Phone Number [address] [address] * (ABNORMAL) Urinalysis w/reflex Urine Culture (05/04/2025 1:19 PM EDT) COLOR Yellow Yellow [facility] CLARITY Clear [facility] GLUCOSE Negative Negative [facility] BILI Negative Negative [facility] KETONES Negative Negative [facility] SPECIFIC GRAVITY 1.010 1.005 - 1.030 [facility] BLOOD 1+(A) Negative [facility] PH 7.5 5.0 - 8.0 [facility] Protein-UA Negative Negative [facility] NITRITE Negative Negative [facility] Leukocyte esterase, ur Negative Negative [facility] Urine (Urine) 05/04/2025 1:1 9 PM EDT 05/04/2025 1:44 PM EDT Alberto Vasques MD LAB URINE ORDERABLES Final Resul t Performing Organization Address [place]/[facility] Co de Phone Number [address] [address] * (ABNORMAL) Urine sediment (05/04/2025 1:19 PM EDT) WBC 0-4(A) NONE SEEN /hpf [facility] RBC 3-5(A) NONE SEEN /hpf [facility] URINE EPITHELIAL 0-4(A) NONE SEEN [facility] MUCUS NONE SEEN NONE SEEN /hpf [facility] BACTERIA Trace(A) NONE SEEN /hpf [facility] 05/04/2025 1:19 PM EDT 05/04/2025 1:44 PM EDT us Alberto Vasques MD LAB URINE ORDERABLES Final Resul t [facility] [address] [place] [address] from Last 3 Months Insurance WELLS[employer] NON NSPG PCP SILVER [employer] CONNECTORCARE WE[employer] NON NSPG PCP SILVER CLARITY CONNECTORCARE [employer] NON NSPG PCP SILVER CLARITY CONNECTORCARE SYOSSETENSE NON NSPG PCP SILVER CLARITY CONNECTORCARE SYOSSETENSE NON NSPG PCP SILVER CLARITY CONNECTORCARE SYOSSETENSE NON NSPG PCP SILVER CLARITY CONNECTORCARE SYOSSET[employer] NON NSPG PCP SILVER CLARITY CONNECTORCARE SYOS[employer] NON NSPG PCP SILVER CLARITY CONNECTORCARE WELLS[employer] NON NSPG PCP SILVER CLARITY CONNECTORCARE Advance Directives For more information, please contact: [phone] (9AM - 5PM [facility], Monday-Monday) * Full Code (Latest Code Status on File) Date Activated Date Inactivated Comments 08/19/2022 9:51 AM Question Answer Comments Code Status Confirmed With: Patient Care Teams Funeral Home Attendant Relationship Specialty Start Date End Date Clara Shearer MD [address] [place] [phone] PCP - General Family Medicine 02/16/22 Additional Source Comments The information contained in this document represents components of the legal health record. It is not the complete legal health record.[facility]
--- OUTSIDE RECORDS SUMMARY | 2025-06-18 08:23 | XMS_ITS | Encounter Summary ---
Author Organization [employer] [facility] Address [address] [place] [address] 7 [place] [address] Care Team Providers Care Reinforced Ironworker Name Role Phone Clara Shearer MD Primary Care Provider [phone] Encounter Details Date Type Department Care Team (Late st Contact Info) Description 07/20/2022 Abstract [facility] MEDICINE [address] [place], [place] [phone] Clara Shearer MD [address] [place] [address] Social History Tobacco Use Types Packs/Day Years [...] Description 08/20/2025 2:15 PM EST Office Visit [facility] ADULT DENTAL [address] [place], [place] [phone] Jignesh Espinozaaris [address] [place] [address] documented as of this encounter Visit Diagnoses Not on filedocumented in this encounter Care Teams Reinforced Ironworker Relationship Specialty Start Date End Date Clara Shearer MD [address] [place], [place] [phone] PCP - General Family Medicine 07/24/18 documented as of this encounter
--- NOTE | 2025-06-18 08:39 | MHC.OFFVISCO ---
Intake Intake Visit Reasons: Anticoagulation Allergies peach Allergy (Severe, Verified 06/18/25 08:10) Angioedema Medication List - Last Reconciled 06/18/25 by Tricia Stock RN acetaminophen mg PO ascorbic acid (vitamin C) 500 mg PO BID aspirin (Adult Aspirin Regimen) 81 mg PO DAILY 90 days cetirizine 10 mg PO DAILY cholecalciferol (vitamin D3) 50 mcg PO DAILY cyclobenzaprine 10 mg PO TID PRN enoxaparin mg See Protocol subcut Held on 05/20/25. Instructions: Doctor's Order hydrocortisone 2.5% (Proctosol HC) 1 appl AL BID-QID PRN multivitamin (One Daily Multivitamin tablet) 1 tab PO DAILY olopatadine 0.2% (Pataday Once Daily Relief) 1 drp ophthalmic (eye) DAILY PRN 30 days MDD as needed omeprazole 20 mg PO DAILY PRN oxycodone 5 mg PO TID PRN polyethylene glycol 3350 17 grams PO DAILY sennosides (senna) 17.2 mg PO DAILY sumatriptan succinate 100 mg PO .prn MDD 200mg tolterodine ER 4 mg PO DAILY PRN topiramate 50 mg PO DAILY PRN warfarin See Protocol orally 6mg daily; Nursing Note PT[facility]'D FROM [facility] 1 WEEK AGO AND WILL BEGIN PT IN A FEW WEEKS. PT.STATES THAT SHE IS STILL VERY SORE AT OP SITE, AND IS MOVING SLOWLY. SHE HAS NOT RETURNED TO WORK, BUT PLANS TO RETURN NEXT WEEK. NO CP,SOB OR SX OF BLEEDING. MEDICATION REMAINS UNCHANGED. WILL REDUCE WEEKLY WARFARIN DOSE SLIGHTLY AND RECHECK INR IN 1 WEEK GOOD UNDERSTANDING OF DOSING INSTR. Anti-Coag Initial Assessment Social Hx Patient Tobacco Use Status: Never used Tobacco alcohol intake: never Alcohol intake frequency: does not drink Coding Level of Care Code Est Patient Level 1 Diagnoses Current use of anticoagulant therapy Z79.01 Assessment & Plan Assessment & Plan (1) Current use of anticoagulant therapy: Comment: Continue Coumadin. Code(s): Z79.01 - custodial (current) use of anticoagulants Category: Medical
== END 2025-06-18 08:44 | disposition home or self-care (01) ==
LOC: HO.ACS 08:09
PROVIDERS: PCP Family Medicine; Visit Provider Internal Medicine Medical Oncology
DX: Z79.01 Long term (current) use of anticoagulants (principal)

== ENCOUNTER 2025-06-18 08:09 | Outpatient (REF) | payer OTHER, SELFPAY ==
[2025-06-18 09:41] LABS: Alanine Aminotransferase 162 U/L (0-31); Albumin Level 4.5 g/dL (3.5-5.0); Alkaline Phosphatase 121 U/L (39-117); Anion Gap 12 (12-20); Aspartate Amino Transferase 65 U/L (5-31); Blood Urea Nitrogen 10 mg/dL (9-16); Calcium 9.8 mg/dL (8.4-10.2); Carbon Dioxide 23 mmol/L (22-29); Chloride 108 mmol/L (96-108); Estimated Glomerular Filt Rate > 60; Potassium 4.1 mmol/L (3.3-5.1); Sodium 139 mmol/L (135-145); Total Protein 7.7 g/dL (6.5-8.0)
[2025-06-18 10:03] LABS: HBsAGNum1 0.30 S/CO (0.00-0.99); Hepatitis B Surface Antigen Negative (Negative); ~HepC Num1 0.13 S/CO (0.00-0.79); ~Hepatitis C Antibody Nonreactive (Nonreactive)
== END 2025-06-18 08:10 | disposition home or self-care (01) ==
LOC: HO.LAB 08:09
PROVIDERS: Internal Medicine Geriatric Medicine; Absent Provider Family Medicine; PCP Family Medicine; Visit Provider Internal Medicine Medical Oncology
DX: Z95.2 Presence of prosthetic heart valve (principal); I09.9 Rheumatic heart disease, unspecified; G47.33 Obstructive sleep apnea (adult) (pediatric); Z79.01 Long term (current) use of anticoagulants; G89.29 Other chronic pain; R10.9 Unspecified abdominal pain; R74.01 Elevation of levels of liver transaminase levels; Z11.59 Encounter for screening for other viral diseases
CPT/HCPCS: 36415; 80048; 80076; 85610; 86803; 87340; 99211; 99212

== ENCOUNTER 2025-06-18 13:18 | Outpatient (AMB) | payer OTHER, SELFPAY ==
--- OUTSIDE RECORDS SUMMARY | 2025-06-13 10:15 | XMS_ITS | Encounter Summary ---
Author Organization [facility] Address [address] [place] [address] Phone Care Team Providers Care Heddler Name Role Phone Clara Shearer MD Primary Care Provider [phone] Reason for Visit * Auth/Cert (Routine) Specialty Diagnoses / Procedures Referred By Ron t Referred To Contact Referral ID Status Reason Start Date Expiration Date Visits Re quested Visits Authorized [id number] 1 1 Encounter Details Date Type Department Care Team (Late st Contact Info) Description 06/13/2025 10:15 AM EST Home Care Visit [facility] [address] [place] [id number] Roseanne Marsh, PT [address] [place] [address] [email or web address] PT EVALUATION Social History Tobacco Use Types Packs/Day Years Used Date Smoking Tobacco: Never Smokeless Tobacco: Never Alcohol Use Standard Drinks/Week Comments No 0 (1 standard drink = 0.6 oz pur e alcohol) Home Health Assessment: Transportation Answer Date Recorded Lack of Transportation (Medical) No 06/13/2025 Lack of Transportation (Non-Medical) No 06/13/2025 Patient Unable or Declines to Respond No 06/13/2025 Education Answer Date Recorded Are you interested [...] Sign Reading Time Taken Comments Blood Pressure 130/76 06/13/2025 10:38 AM EST Pulse - - Temperature 36.3 C (97.3 F) 06/13/2025 10:38 AM EST Respiratory Rate - - Oxygen Saturation - - Inhaled Oxygen Concentration - - Weight - - Height - - Body Mass Index - - documented in this encounter Plan of Treatment Upcoming Encounters Date Type Department Care Team (Late st Contact Info) Description 07/04/2025 10:45 AM EST Follow-Up [facility] Photographic Supervisor Oncology [address] [place], [place] [address], [address] [place] [address] Jaja Huber MD [address] [facility] [place] [address] [email or web address] documented as of this encounter Visit Diagnoses Not on filedocumented in this encounter Home Health Visit - Care Plan Visit Details Visit Type -PT EVALUATION Discipline -Physical Therapy Problems Problem Description Start Date Status Goals Interve ntions HH - Infection - Actual or Risk of Disciplines: All Active Home Health Disciplines 05/10/2025 Active 1 goal linked to scheduled/document ed intervention 1 goal intervention scheduled/document ed in this visit HH - Falls - Risk of Disciplines: All Active Home Health Disciplines 05/10/2025 Active 1 goal linked to scheduled/document ed intervention 1 goal intervention scheduled/document ed in this visit HH - Standard of Care Disciplines: All Active Home Health Disciplines 05/10/2025 Active 1 goal linked to scheduled/document ed intervention 4 goal interventions scheduled/document ed in this visit HH - Pain Disciplines: All Active Home Health Disciplines 05/10/2025 [...] Outcome Goal Met? Visit Notes HH - Patient will have no new infection; any new infection that occurs will be identified and treated promptly; existing infection will resolve without complication Description: Patient and caregiver(s) will demonstrate understanding of infection prevention, monitoring, and treatment as appropriate HH - Infection - Actual or Risk of No HH - Knowledge and management of fall prevention measures. HH - Falls - Risk of No HH - Achieve care management for a safe to home/community discharge from homecare HH - Standard of Care No HH - Frequency of pain interfering with patient's activity or movement will improve with activity or movement by discharge. Description: Pain will be managed over the course of care. Patient's acceptable level of pain is 1 - pain that doesn't interfere. HH - Pain No HH - Safe medication management, avoid [...] Status Variance Visit Notes HH - Assess infection risk and s/s Problem:HH - Infection - Actual or Risk of Goal:HH - Patient will have no new infection; any new infection that occurs will be identified and treated promptly; existing infection will resolve without complication Performed HH - I/E fall prevention measures Description: diagnosis/age related changes/prior history of falls: symptoms and side effects of illness/injury/histo ry of falls placing patient at increased risk for falls. may include management of dizziness/orthostasi s, environmental hazards: modification of enviro nment to include clear walkways, secure animals, and move frequently used items within reach, use of equipment, impaired functional mobility: supervision for mobility/activity, appropriate footwear and as indicated safe use of assistive device(s), pain a ffecting level of function: impact of pain on an increased risk of falls and poly pharmacy: side effects of medications placing a patient at high risk for a fall Problem:HH - Falls - Risk of Goal:HH - Knowledge and management of fall prevention measures. Performed HH - Assess vital signs, pulse oximetry, pain, and as indicated, orthostatic vital signs Description: use agency-specific parameters Problem:HH - Standard of Care Goal:HH - Achieve care management for a safe to home/community discharge from homecare Performed HH - Assess skin integrity Problem:HH - Standard of Care Goal:HH - Achieve care management for a safe to home/community discharge from homecare Performed HH - I/E discharge plan Problem:HH - Standard of Care Goal:HH - Achieve care management for a safe to home/community discharge from homecare Performed HH - Complete Harjinder scale at SOC and weekly Problem:HH - Standard of Care Goal:HH - Achieve care management for a safe to home/community discharge from homecare Performed HH - Assess pain Problem:HH - Pain Goal:HH - Frequency of pain interfering with patient's activity or movement will improve with activity or movement by discharge. Performed HH - I/E pain management Problem:HH - Pain Goal:HH - Frequency of pain interfering with patient's activity or movement will improve with activity or movement by discharge. Performed HH - I/E medication management: administration, purpose, dosages, preparation, setup, scheduling, side effects, food/drug interactions, and potential complications as indicated Description: Update patient's copy of medication list as needed. Problem: - Medication Management Goal: - Safe medication management, avoid unnecessary harm related to medication errors and/or interactions Performed HH - Complete medication review every visit and medication reconciliation as indicated. Pharmacy information: Description: [facility] Problem: - Medication Management Goal: - Safe medication management, avoid unnecessary harm related to medication errors and/or interactions Performed - Focus of care, teaching completed and plan for next visit Problem: - Focus of Care and Teaching Goal: - Communication and collaboration to achieve patient goals Performed Primary Clinical Focus this Visit & Instruction Provided: REASON FOR REFERRAL: [facility] with 4 days of worsening abdominal pain. Transferred to [facility] after pelvic mass found, now s/s total hysterectomy with bilater salpinectomy and oophererctomy. Home health PT referral made d/t R shoulder pain. Pt noted to have INR 4.4 at last testing by SN; PT spoke with SN prior to visit who cleared pt for PT. Pt is following all SN recommendations, declines any fatigue, SOB or bleeding in >36 hours and reports signifi cant reduction in adominal pain with c/o mild pain only at incision sites. SN to visit pt shortly after PT visit. PMH: prosthetic aortic valve 2009 PRECAUTIONS: no lifting >10#, bleeding risk d/t elevated INR ENVIRONMENT: Pt lives in an elevator ac cessible apartment without steps to enter. Pt lives with her daughter and 2 small dogs. DME: N/A PLOF: Pt reports being independent with functional mobility for community distances without AD. 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 FAMILY/CAREGIVE R SUPPORT: Daughter lives with pt and 2nd daughter lives locally; both assist with IADL's including transportation as needed. OBJECTIVE STATUS: BED MOBILITY: Min A from couch d/t narrow area and guarding abdominal area. TRANSFERS: Independent no AD without UE support. AMBULATION: When assessing ambulation pt states I have no problem with walking . Pt demos independent ambulation within apartment without AD. Demos ability to walk full apartment building hallway with reciprocal gait pattern, no L OB, conversing with mobility without SOB. Pt/daughter report pt has been walking outside daily independently. STAIRS: N/A PATIENT GOALS: To decrease R shoulder pain. CLINICAL SUMMARY: Pt seen for PT evaluation with lift mechanic offered, however, pt reporting preference for daughters to translate; originally provided by daughter in person and then partially by daughter over the phone. Pt reports chronic R shoulder pain x approximately 1 year. Pain was exacerbated after she had a near fall a few m onths ago d/t slipping while cleaning a shower at work where pt reached up quickly to brace with UE to prevent from falling. No c/o popping or clicking. Pt reports she received a referral for outpatient PT prior to recent hospitalization, however, had not started PT. Imaging completed by PCP and negative for fx. Pain provoked with shoulder flexion, repetitive cleaning (pre-surgery), prolonged knitting, brushing hair, putting on bra. C/o arm f alling asleep with prolonged time holding phone. Primary area of tenderness to palpation R anterior shoulder near greater tuberosity. Muscle tightness noted along upper trap and medial scapular border. R shoulder flexion 170* in supine. Pt sits with forward head, rounded shoulders, protracted scapulae. Pt demos altered scapulohumeral rhythm with increased shoulder elevation with flexion. Education provided on scapular retraction and correct upright posture after which pt demos improved seated shoulder flexion with reduced c/o pain. Trialed seated thorac ic extension trialed but held d/t difficulty with carryover. PT differential diagnosis likely for R shoulder pain d/t shoulder impingement. At this time pt is demonstrating/repor ting independent mobility without AD for community level distances thus PT recommends transition to outpatient PT services. Pt/daughters in agreement and verbalize understanding. Pt/daughter to check which clinics are covered by insurance and will contact PCP office for referral. PT updated [facility] and phoned PCP office t o inform of PT evaluation only with recommendation for outpatient PT and that pt will call to let PCP know where to send referral. Home health PT evaluation only. Instruction Provided to: patient and caregiver Response to Instruction/Teachin g: Is janet rocha able to teach back topics as evidenced by: verbalization of understanding of instructions. Plan for Next Visit Specific Focus & Education Needed: N/A, evaluation only, recommend transition to outpatient PT services. New Orders: N/A, evaluation onl y. PT phoned PCP office to update of eval only and recommendation for transition to outpatient PT services. Updated Discharge Plan: Evaluation only. HH - I/E management of care in an urgent or emergency (ER) situation: When to call your Home Care Team/911, ER plans, supplies, evacuation, when to contact local ER officials and how to stay informed Problem:HH - Emergency Planning - Knowledge of Goal:HH - Knowledge of options for managing care in the event of an emergency related situation. Performed HH - Emergency planning assessment: the emergency plan, supplies needed, emergency contact numbers and an evacuation plan were reviewed Description: Patient and Caregiver is/are knowledgeable of emergency plans. Problem:HH - Emergency Planning - Knowledge of Goal:HH - Knowledge of options for managing care in the event of an emergency related situation. Performed HH - Assess wounds/lesions/coffey Description: LOCATION: lap sites x 4 to abdomen Problem:HH - Wound Goal:HH - Demonstrate/verbal ize wound care management, wound/lesion will be free from complications Performed with variance Not Applicable for Visiting Discipline managed by SN. documented in this encounter Care Teams Heddler Relationship Specialty Start Date End Date Clara Shearer MD [address] [place] [id number] PCP - General Family Medicine 02/16/22 documented as of this encounter Additional Source Comments The information contained in this document represents components of the legal health record. It is not the complete legal health record.[facility]
--- OUTSIDE RECORDS SUMMARY | 2025-06-13 11:00 | XMS_ITS | Encounter Summary ---
Author Organization [facility] Address [address] [place] [address] Phone Care Team Providers Care Floor Hand Name Role Phone Clara Shearer MD Primary Care Provider [phone] Reason for Visit * Auth/Cert (Routine) Specialty Diagnoses / Procedures Referred By Ron t Referred To Contact Referral ID Status Reason Start Date Expiration Date Visits Re quested Visits Authorized [id number] 1 1 Encounter Details Date Type Department Care Team (Late st Contact Info) Description 06/13/2025 11:00 AM EST Home Care Visit [facility] [address] [place] [address] Darlin Car, RN [address] [place] [address] [email or web address] SN OASIS DISCHARGE VISIT Social History Tobacco Use Types Packs/Day [...] Sign Reading Time Taken Comments Blood Pressure 114/70 06/13/2025 11:45 AM EST Pulse 73 06/13/2025 11:45 AM EST Temperature 36.7 C (98.1 F) 06/13/2025 11:45 AM EST Respiratory Rate 18 06/13/2025 11:45 AM EST Oxygen Saturation 98% 06/13/2025 11:45 AM EST Inhaled Oxygen Concentration - - Weight - - Height - - Body Mass Index - - documented in this encounter Plan of Treatment Upcoming Encounters Date Type Department Care Team (Late st Contact Info) Description 07/04/2025 10:45 AM EST Follow-Up [facility] Pool Nurse Oncology [address] [place], [place] [address], [address] [place] [address] Jaja Huber MD [address] [facility], [facility] [place] [address] [email or web address] documented as of this encounter Visit Diagnoses Not on filedocumented in this encounter Home Health Visit - Care Plan Visit Details Visit Type -SN OASIS DISCHAR GE VISIT Discipline -Fpc Problems Problem Description Start [...] scheduled/document ed in this visit HH - Health Maintenance Disciplines: All Active Home Health Disciplines 05/10/2025 [...] Lab Disciplines: All Active Home Health Disciplines, Fpc 05/10/2025 Active - 1 problem intervention scheduled/document ed in this visit HH - Wound Disciplines: All Active Home Health Disciplines 05/10/2025 Active 1 goal linked to scheduled/document ed intervention 3 goal interventions scheduled/document ed in this visit HH - Bleeding - Risk of Disciplines: All Active Home [...] HH - Medication Management No HH - Patient preferences will be utilized to achieve optimal wellness and home safety. HH - Health Maintenance No HH - Communication and collaboration to achieve patient goals HH - Focus of Care and Teaching No HH - Knowledge of options for managing care in the event of an emergency related situation. HH - Emergency Planning - Knowledge of No HH - Demonstrate/verbalize wound care management, wound/lesion will be free from complications HH - Wound No HH - Demonstrate/verbalize knowledge of anticoagulation therapy and bleeding precautions HH - Bleeding - Risk of No Interventions Intervention Associated Problem/Goal Status Variance Visit Notes HH - I/E infection Description: s/s of infection Problem:HH - Infection - Actual or Risk of Goal:HH - Patient will have no new infection; any new infection that occurs will be identified and treated promptly; existing infection will resolve without complication Performed HH - Assess infection risk and s/s Problem:HH - Infection - Actual or Risk of Goal:HH - Patient will have no new infection; any new infection that occurs will be identified and treated promptly; existing infection will resolve without complication Performed HH - I/E fall prevention measures Description: diagnosis/age related changes/prior history of falls: symptoms and side effects of illness/injury/histor y of falls placing patient at increased risk for falls. may include management of dizziness/orthostasis , environmental hazards: modification of enviro nment to [...] patient at high risk for a fall Problem: - Falls - Risk of Goal: - Knowledge and management of fall prevention measures. Performed HH - Assess vital signs, pulse oximetry, pain, and as indicated, orthostatic vital signs Description: use agency-specific parameters Problem: - Standard of Care Goal: - Achieve care management for a safe to home/community discharge from homecare Performed HH - Assess skin integrity Problem: - Standard of Care Goal:HH - Achieve care management for a safe to home/community discharge from homecare Performed HH - I/E management of skin integrity and non-wound impairment Description: s/s of pressure injury, pressure reduction, and injury prevention measures Problem: - Standard of Care Goal: - Achieve care management for a safe to home/community discharge from homecare Performed - I/E discharge plan Problem: - Standard of Care Goal: - Achieve care management for a safe to home/community discharge from homecare Performed - Assess pain Problem: - Pain Goal:HH - Frequency of pain interfering with patient's activity or movement will improve with activity or movement by discharge. Performed - I/E pain management Problem: - Pain Goal:HH - Frequency of pain interfering with patient's activity or movement will improve with activity or movement by discharge. Performed HH - I/E medication management: administration, purpose, dosages, preparation, setup, scheduling, side effects, food/drug interactions, and potential complications as indicated Description: Update patient's copy of medication list as needed. Problem:HH - Medication Management Goal:HH - Safe medication management, avoid unnecessary harm related to medication errors and/or interactions Performed HH - Complete medication review every visit and medication reconciliation as indicated. Pharmacy information: Description: [facility] Problem:HH - Medication Management Goal:HH - Safe medication management, avoid unnecessary harm related to medication errors and/or interactions Performed HH - Assess immunizations Description: UTD on flu and covid Problem:HH - Health Maintenance Goal:HH - Patient preferences will be utilized to achieve optimal wellness and home safety. Performed HH - I/E immunizations Problem:HH - Health Maintenance Goal:HH - Patient preferences will be utilized to achieve optimal wellness and home safety. Performed HH - Focus of care, teaching completed and plan for next visit Problem:HH - Focus of Care and Teaching Goal:HH - Communication and collaboration to achieve patient goals Performed Primary Clinical Focus this Visit & Instruction Provided: Patient alert and oriented. PRimarily turkish-speaking and daughter present during SNV to translate as needed. Afebrile. VSS> Lungs clear, breathing easy. Minimal abdominal pain. CHronic right karel ulder pain. Patient admitted to VNA services s/p total lap hysterectomy r/t pelvic mass. Patient with hx of valve replacement and on coumadin. Initially home on lovenox bridge. SNV for post-op/incision/med/p ain asessment/teach. Post-op healing complicate d by episodes of supratherapeutic INR and bleeding. At this time goals met. Lap sites healed. No s/s bleeding. Evaluated by PT for shoulder pain with recommendation for f/u in outpatient setting. INR today 3.6, per Kirstin at [facility], to hold coumadin today, then 6mg daily, 3mg on Monday and family able to bring to next INR check on Monday. WIll dc today as stable and goals met. MD alerted to DC from VNA services. Instruction Provided to: patient and caregiver Response to Instruction/Teaching: Is fully able to teach back topics as evidenced by verbalization. Plan for Next Visit Specific Focus & Education Needed: na New Orders: see above Updated Discharge Plan: dc today HH - I/E management of care in [...] an emergency related situation. Performed HH - PT/INR via fingerstick Description: Please check INR on 06/13/25 RESULTS TO: [place] [facility], [phone] THERAPEUTIC RANGE: 2-3 Problem: - Lab Performed HH - Assess wounds/lesions/coffey Description: LOCATION: lap sites x 4 to abdomen Problem: - Wound Goal:HH - Demonstrate/verbalize wound care management, wound/lesion will be free from complications Performed HH - I/E wound management Description: nutrition to promote wound healing, s/s of complications, s/s of infection, wound dehiscence and wound/lesion care and treatment Problem: - Wound Goal:HH - Demonstrate/verbalize wound care management, wound/lesion will be free from complications Performed HH - Wound care: Description: Teach daily cleaning soap and water to abdominal lap sites, pat dry. Allow to fall off on own. Problem:HH - Wound Goal:HH - Demonstrate/verbalize wound care management, wound/lesion will be free from complications Performed HH - I/E anticoagulation therapy management and bleeding precautions related to Description: anticoagulation medications/injection , anticoagulation therapy, bleeding precautions and s/s of bleeding Problem: - Bleeding - Risk of Goal:HH - Demonstrate/verbalize knowledge of anticoagulation therapy and bleeding precautions Performed documented in this encounter Care Teams Floor Hand Relationship Specialty Start Date End Date Clara Shearer MD [address] [place] [address] PCP - General Family Medicine 02/16/22 documented as of this encounter Additional Source Comments The information contained in this document represents components of the legal health record. It is not the complete legal health record.[facility]
[2025-06-18 13:22] VITALS: BP 108/60; PULSE 77
--- NOTE | 2025-06-18 13:22 | A.OFFVIS_ITS ---
Vital Signs 06/18/25 13:22 Height 4 ft 11 in Weight 148 lb 9.465 oz BMI 30.0 BP 108/60 Blood Pressure Location Lt brachial Position Sitting Pulse 77 Pulse Source Pulse Oximeter Intake Visit Reasons: r/s- 6mth km Body Shop Manager Required: Yes Body Shop Manager Services: Body Shop Manager Offered & Declined Allergies peach Allergy (Severe, Verified 06/18/25 13:25) Angioedema Medication List - Last Reconciled 06/18/25 by Jacinto Carranza NP ascorbic acid (vitamin C) 500 mg PO BID cetirizine 10 mg PO DAILY cholecalciferol (vitamin D3) 50 mcg PO DAILY cyclobenzaprine 10 mg PO TID PRN hydrocortisone 2.5% (Proctosol HC) 1 appl NC BID-QID PRN olopatadine 0.2% (Pataday Once Daily Relief) 1 drp ophthalmic (eye) DAILY PRN 30 days MDD as needed omeprazole 20 mg PO DAILY PRN oxycodone 5 mg PO TID PRN sennosides (senna) 17.2 mg PO DAILY sumatriptan succinate 100 mg PO .prn MDD 200mg tolterodine ER 4 mg PO DAILY PRN topiramate 50 mg PO DAILY PRN warfarin See Protocol orally 6mg daily; HPI Comments Details: This is a 50-year-old female patient coming in for a follow-up visit, accompanied by her daughter who helped with Khmer interpretation throughout the visit. Patient with a history of rheumatic heart disease, severe aortic stenosis status post mechanical aortic valve replacement in 2009, and sleep apnea. Patient states that recently she was at [facility] for patient care secretary surgery during which time patient had an echo that showed low normal heart function. Today, patient is reporting feeling well overall without any cardiac symptoms of exertional chest pain, shortness of breath, palpitations, dizziness, orthopnea, PND, leg edema, presyncope or syncope. Patient is reporting compliance with all her medications. 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 Gender identity: Female Female Reproductive History Menstrual Age of Menarche: 14 Review of Systems Const Denies daytime sleepiness, Denies difficulty sleeping, Denies snoring, Denies stops breathing during sleep and Denies weakness Card Denies chest pain, Denies rapid heart rate, Denies irregular heart rhythm, Denies claudication, Denies leg edema, Denies lightheadedness, Denies palpitations, Reports dyspnea, Denies dyspnea on exertion, Denies orthopnea, Denies paroxysmal nocturnal dyspnea and Denies slow heart rate Resp Denies cough, Reports dyspnea, Denies dyspnea on exertion and Denies snoring GI Reports no additional complaints, Denies hematochezia, Denies change in stool character and Denies dyspepsia Musc Denies abnormal gait, Denies muscle weakness and Denies numbness Neuro Denies abnormal gait, Denies numbness and Denies weakness Endo Denies palpitations Physical Exam Vital Signs: Last Vital Signs Pulse 77 06/18/25 13:22 BP 108/60 06/18/25 13:22 BMI result Body Mass Index 30.0 Const General: cooperative, healthy appearing, comfortable and no acute distress Orientation/consciousness: patient oriented x3 HEENT Head: Yes normal to inspection Neck Neck: Yes normal visual inspection, Yes trachea midline and Yes supple Chest Chest palpation & inspection: normal inspection of the chest Resp Effort & Inspection: normal respiratory effort Auscultation: clear to auscultation bilaterally, no crackles, no rales, no rhonchi and no wheezes Cardio Jugular venous distension: no JVD Palpation: normal PMI Rate: regular rate Rhythm: regular rhythm Heart sounds: S1 normal heart sound present, S2 normal heart sound present, no click, no gallops, Murmur heart sound present systolic and no rubs Peripheral pulses: Peripheral pulses 2+ throughout GI Inspection: Yes normal to inspection Palpation (GI): Soft to palpation Auscultation: normal bowel sounds Skin General skin exam: no rashes or lesions noted Neuro General: patient oriented x3 Extrem General: Yes normal to inspection, No no pedal edema and No calf tenderness Psych Appearance: grossly normal Mental Status: mental status grossly normal Speech and movement: Normal speech and movement present Assessment & Plan Assessment & Plan (1) S/P AVR: Code(s): Z95.2 - Presence of prosthetic heart valve Category: Surgical Plan: History of severe aortic valve regurgitation status post mechanical aortic valve replacement in 2009. On Coumadin and aspirin therapy. No reported signs of bleeding or falls. At her recent hospital visit for patient care secretary surgery, patient underwent an echo that showed a low-normal LV systolic function with an EF between 50-55%, normal functioning of the mechanical prosthetic valve and mild mitral stenosis. Clinically stable and euvolemic. Discussed signs and symptoms of heart failure. Advised on low-salt diet, daily weight monitoring, and compression socks as needed. We will plan to repeat echo in a year. (2) Rheumatic heart disease: Code(s): I09.9 - Rheumatic heart disease, unspecified Category: Medical Plan: As above. (3) AYESHA (obstructive sleep apnea): Code(s): G47.33 - Obstructive sleep apnea (adult) (pediatric) Category: Medical Plan: Continue CPAP therapy. (4) Current use of anticoagulant therapy: Code(s): Z79.01 - terminal operations supervisor (current) use of anticoagulants Category: Medical Plan: Continue Coumadin therapy. Followed by anti coag. Advised on heart healthy diet, regular exercise, med compliance, and aggressive management of vascular risk factors. Follow up in 6 months. In the interim, patient will call the office with any concerns or change in symptoms. This note was generated using voice recognition software. While every effort has been made to ensure accuracy and proper metal or wood blocker, there may be occasional errors that could affect the content or meaning of the described symptoms. Medications: New aspirin (Adult Aspirin Regimen) 81 mg PO DAILY 90 tabs 3RF Coding Level of Care Code Est Pt Level 4 (30390) Complex visit Add On G2211 Diagnoses S/P AVR Z95.2 Rheumatic heart disease I09.9 AYESHA (obstructive sleep apnea) G47.33 Current use of anticoagulant therapy Z79.01 Time Spent (min) 32 Comment Time spent in reviewing the chart, test results, assessment, counseling and documentation.
--- OUTSIDE RECORDS SUMMARY | 2025-06-18 16:25 | XMS_ITS | Encounter Summary ---
Author Organization [employer] Address [address] [facility] 7t [place] [address] Care Team Providers Care Sound Engineer Name Role Phone Clara Shearer MD Primary Care Provider [phone] Encounter Details Date Type Department Care Team ([facility] st Contact Info) Description 06/12/2025 Results Follow-Up [facility] MEDICINE [address] [place], [place] [phone] Clara Shearer MD [address] [place] [address] XR Chest 2 Views Social History Tobacco [...] Care Team (Late st Contact Info) Description 07/22/2025 2:15 PM EST Office Visit [facility] MEDICINE [address] [place] [address] Clara Shearer MD [address] [place] [address] 08/20/2025 2:15 PM EST Office Visit [facility] ADULT DENTAL [address] [place] [address] Olga, Katt [address] [place] [address] documented as of this encounter Visit Diagnoses Not on filedocumented in this encounter Additional Health Concerns Assessment Noted Time PHQ-9 Depression Total Score: 0 06/10/20 25 9:47 AM EST documented as of this encounter Care Teams Sound Engineer Relationship Specialty Start Date End Date Clara Shearer MD [address] [place] [address] PCP - General Family Medicine 07/24/18 documented as of this encounter
--- OUTSIDE RECORDS SUMMARY | 2025-06-18 16:25 | XMS_ITS | Encounter Summary ---
Author Organization [employer] Address [address] [facility] 7t [place] [address] Care Team Providers Care High Pressure Cleaner Name Role Phone Clara Shearer MD Primary Care Provider [phone] Encounter Details Date Type Department Care Team ([facility] st Contact Info) Description 01/22/2024 Orders Only [facility] MEDICINE [address] [place], [place] [phone] Clara Shearer MD [address] [place], [place] [phone] History of mechanical aortic valve replacement Social [...] Description 07/22/2025 2:15 PM EST Office Visit [facility] MEDICINE [address] [place] [address] Clara Shearer MD [address] [place] [address] 08/20/2025 2:15 PM EST Office Visit [facility] ADULT DENTAL [address] [place] [address] Katt Espinoza [address] [place] [address] documented as of this encounter Visit Diagnoses Diagnosis History of mechanical aortic valve replacement documented in this encounter Additional Health Concerns Assessment Noted Time PHQ-9 Depression Total Score: 0 10/17/19 24 3:45 PM EDT documented as of this encounter Care Teams High Pressure Cleaner Relationship Specialty Start Date End Date Clara Shearer MD [address] [place] [address] PCP - General Family Medicine 07/24/18 documented as of this encounter
--- OUTSIDE RECORDS SUMMARY | 2025-06-18 16:25 | XMS_ITS | Encounter Summary ---
Author Organization [employer] Address [address] [facility] 7t [place] [address] Care Team Providers Care Outpatient Dietitian Name Role Phone Clara Shearer MD Primary Care Provider [phone] Reason for Visit * Reason Onset Date Comments Results 06/11/2025 Encounter Details Date Type Department Care Team ([facility] st Contact Info) Description 06/11/2025 Telephone [facility] MEDICINE [address] [place], [place] [phone] Clara Shearer MD [address] [place], [place] [phone] Results Social History Tobacco Use Types Packs/Day [...] encounter Miscellaneous Notes * Telephone Encounter - Clara Shearer MD - 06/18/2025 9:04 AM EST Spoke with the patient and advised to have a repeat lab. Patient is asymptomatic. * Telephone Encounter - Raul Harden - 06/13/2025 3:09 PM EST TC from daughter wanting a return call to discuss Lab results * Telephone Encounter - Sabine Chang RN - 06/12/2025 3:45 PM EST RN spoke to PCP who is going to outreach to [facility] to have a further discussion about pt recent test results * Telephone Encounter - Nabil Coughlin - 06/12/2025 3:36 PM EST Tc from pt returning call back regarding prior message. Contact pt at [phone] * Telephone Encounter - Sabine Chang RN - 06/12/2025 1:28 PM EST Return call placed to [employer]line (pt daughter) and a VM was left to call back the office to help clarify pt results * Telephone Encounter - Jose Valencia - 06/11/2025 4:48 PM EST Tc from Daughter (On HIPAA) stating pt received a call regarding results but pt had difficulty understanding and now daughter would like a call back to further process information. Please contact daughter at [phone]. documented in this encounter Plan of Treatment Upcoming Encounters Date Type Department Care Team (Late st Contact Info) Description 07/22/2025 2:15 PM EST Office Visit [facility] MEDICINE [address] [place] [address] Clara Shearer MD [address] [place] [address] 08/20/2025 2:15 PM EST Office Visit [facility] ADULT DENTAL [address] [place] [address] Olga Aktt 230 [place] [address] documented as of this encounter Visit Diagnoses Not on filedocumented in this encounter Additional Health Concerns Assessment Noted Time PHQ-9 Depression Total Score: 0 06/10/20 25 9:47 AM EST documented as of this encounter Care Teams Outpatient Dietitian Relationship Specialty Start Date End Date Clara Shearer MD [address] [place] [address] PCP - General Family Medicine 07/24/18 documented as of this encounter
--- OUTSIDE RECORDS SUMMARY | 2025-06-18 16:25 | XMS_ITS | Encounter Summary ---
Author Organization [employer] Address [address] [facility] 7t [place] [address] Care Team Providers Care Grain Oilseed Or Pasture Farm Manager Name Role Phone Clara Shearer MD Primary Care Provider [phone] Reason for Visit * Reason Onset Date Comments Results 06/11/2025 Encounter Details Date Type Department Care Team ([facility] st Contact Info) Description 06/11/2025 Results Follow-Up [facility] MEDICINE [address] [place] [address] Clara Shearer MD 230 [place] [address] XR Shoulder 2+ Views Right Social History [...] TC placed to the pt with BLS science interpreter #[id number] to inform of PCP message below indicating [...] Pt advised this can be done at [facility] or [facility]. Pt agreeable and advised that PCP [...] Description 07/22/2025 2:15 PM EST Office Visit [facility] MEDICINE [address] [place] [address] Clara Shearer MD [address] [place], [place] [phone] 08/20/2025 2:15 PM EST Office Visit [facility] ADULT DENTAL [address] [place], [place] [phone] Katt Espinoza [address] [place] [address] documented as of this encounter Visit Diagnoses Not on filedocumented in this encounter Additional Health Concerns Assessment Noted Time PHQ-9 Depression Total Score: 0 06/10/20 25 9:47 AM EST documented as of this encounter Care Teams Grain Oilseed Or Pasture Farm Manager Relationship Specialty Start Date End Date Clara Shearer MD [address] [place] [phone] PCP - General Family Medicine 07/24/18 documented as of this encounter
--- OUTSIDE RECORDS SUMMARY | 2025-06-18 16:25 | XMS_ITS | Encounter Summary ---
Author Organization [employer] Address [address] [facility] 7t [place] [address] Care Team Providers Care Laborer Starch Factory Name Role Phone Clara Shearer MD Primary Care Provider [phone] Encounter Details Date Type Department Care Team (Latest Contact Info) Description 06/11/2025 Results Follow-Up [facility] MEDICINE [address] [place], [place] [phone] Clara Shearer MD [address] [place] [address] Hemoglobin A1c, Comprehensive Metabolic Panel, Lipid Panel [...] Description 07/22/2025 2:15 PM EST Office Visit [facility] MEDICINE [address] [place] [address] Clara Shearer MD [address] [place] [address] 08/20/2025 2:15 PM EST Office Visit [facility] ADULT DENTAL [address] [place] [address] Olga, Katt [address] [place] [address] documented as of this encounter Visit Diagnoses Diagnosis Transaminitis- Primary Nonspecific elevation of levels of transaminase or lactic acid dehydrogenase (LDH) documented in this encounter Additional Health Concerns Assessment Noted Time PHQ-9 Depression Total Score: 0 06/10/20 25 9:47 AM EST documented as of this encounter Care Teams Laborer Starch Factory Relationship Specialty Start Date End Date Clara Shearer MD [address] [place] [address] PCP - General Family Medicine 07/24/18 documented as of this encounter
--- OUTSIDE RECORDS SUMMARY | 2025-06-18 16:25 | XMS_ITS | Encounter Summary ---
Author Organization [employer] Address [address] [facility] 7t [place] [address] Care Team Providers Care Electronics Test Engineer Name Role Phone Clara Shearer MD Primary Care Provider [phone] Encounter Details Date Type Department Care Team ([facility] st Contact Info) Description 06/11/2025 Orders Only [facility] MEDICINE [address] [place], [place] [phone] Clara Shearer MD [address] [place], [place] [phone] Chronic right shoulder pain (Primary Dx); Nodule [...] Description 07/22/2025 2:15 PM EST Office Visit [facility] MEDICINE [address] [place] [address] Clara Shearer MD [address] [place] [address] 08/20/2025 2:15 PM EST Office Visit [facility] ADULT DENTAL [address] [place] [address] Katt Espinoza [address] [place] [address] documented as of this encounter Procedures Procedure Name Priority Date/Time Associated Diagnosis Comments XR CHEST 2 VIEWS Routine 06/12/2025 1:47 PM EST Nodule of upper lobe of right lung documented in this encounter Results * XR Chest 2 Views (06/12/2025 1:47 PM EST) Anatomical Region Laterality Modality Chest Radiographic Darlene ging 06/12/2025 1:47 PM EST Narrative 06/12/2025 2:12 PM EST [facility] [address] [place] [id number] XRay Report Signed Patient: Thalia Martell MR#: [id number] 2088 : 1975 Acct:[id number] Age/Sex: 50 / F ADM Date: 06/12/25 Loc: [facility] Attending Dr: Clara Shearer MD Ordering Physician: Clara Shearer MD Date of Service: 06/12/25 Procedure(s): XR chest 2V Accession Number(s): [id number] cc: Clara Shearer MD Reason for Exam: [...] by: Dorian Jung MD 06/12/2025 02:09 PM [facility] Dictated By: Dorian Cruz MD Signed By: <Electronically signed by Dorian Chau MD in OV> 06/12/25 1409 DD/ 1347 TD/TT: 06/12/25 1350 Junior Programmer: Procedure Note Donotuseinterpreter, Image - 06/12/[address] [address] XRay Report Signed Patient: Antonina MartellR#: [id number] : 1975Acct:[id number] Age/Sex: 50 / FADM Date: 06/12/25 Loc: [facility] Attending Dr: Clara Shearer MD Ordering Physician: Clara Shearer MD Date of Service: 06/12/25 Procedure(s): XR chest 2V Accession Number(s): [id number] cc: Clara Shearer MD Reason for Exam: [...] 06/12/25 1409 DD/ 1347 TD/TT: 06/12/25 1350 Junior Programmer: Clara Shearer MD IMG XR PROCEDURES Final Result documented in this encounter Visit Diagnoses Diagnosis Chronic right shoulder pain- Primary Pain in joint, shoulder region Nodule of upper lobe of right lung documented in this encounter Additional Health Concerns Assessment Noted Time PHQ-9 Depression Total Score: 0 06/10/20 9:47 AM EST documented as of this encounter Care Teams Electronics Test Engineer Relationship Specialty Start Date End Date Clara Shearer MD [address] [place] [address] PCP - General Family Medicine 07/24/18 documented as of this encounter
--- OUTSIDE RECORDS SUMMARY | 2025-06-18 16:25 | XMS_ITS | Encounter Summary ---
Author Organization [employer] Address [address] [facility] 7t [place] [address] Care Team Providers Care Executive Vp Name Role Phone Clara Shearer MD Primary Care Provider [phone] Reason for Referral * Imaging (Routine) - Closed Specialty Diagnoses / Procedures Referred By Contac t Referred To Contact Radiology Diagnoses Hematuria, unspecified type Procedures US RENAL BI Clara Shearer MD [address] [place] [address] Phone: tel: fax: [address] [address] Phone: tel: fax: Referral ID Status Reason Start Date Expiration Date Visits Re quested Visits Authorized [id number] Closed 02/21/2025 02/21/2026 1 1 Encounter Details Date Type Department Care Team (Late st Contact Info) Description 02/21/2025 Orders Only [facility] [address] [place], [place] [phone] Clara Shearer MD [address] [place], [place] [phone] Hematuria, unspecified type (Primary Dx) Social History [...] Description 07/22/2025 2:15 PM EST Office Visit [facility] [address] [place] [address] Clara Shearer MD [address] [place] [address] 08/20/2025 2:15 PM EST Office Visit [facility] ADULT DENTAL [address] [place] [address] Katt Espinoza [address] [place] [address] Scheduled Orders Name Type Priority Associated Diagnoses [...] AM EDT Narrative 04/11/2025 9:02 AM EDT [address] [address] Ultrasound Report Signed Patient: Thalia Martell MR#: [id number] : 1975 Acct:[id number] Age/Sex: 50 / F ADM Date: 04/10/25 Loc: HO.US Attending Dr: Clara Shearer MD Ordering Physician: Clara Shearer MD Date of Service: 04/10/25 Procedure(s): US retroperitoneal comp Accession Number(s): [id number] cc: Clara Shearer MD Reason for Exam: hematuria CLINICAL HISTORY: hematuria US Renal Comparison: None provided Findings: Right kidney normal size and echotexture, 10.9 cm length. Left kidney normal size and echotexture, 12.7 cm length. The medical laboratory technologist demonstrates mild pelvic fullness bilaterally. It is [...] in OV> 04/11/25901 DD/ 0 TD/TT: 04/11/25900 Steel Grinder: Procedure Note Donotuseinterpreter, Image - 04/11/2025 [facility] [address] [place] [phone] Ultrasound Report Signed Patient: Yoel Martell#: [id number] : 1975Acct:[id number] Age/Sex: 50 / FADM Date: 04/10/25 Loc: HO.US Attending Dr: Clara Shearer MD Ordering Physician: Clara Shearer MD Date of Service: 04/10/25 Procedure(s): US retroperitoneal comp Accession Number(s): [id number] cc: Clara Shearer MD Reason for Exam: hematuria CLINICAL HISTORY: hematuria US Renal Comparison: None provided Findings: Right kidney normal size and echotexture, 10.9 cm length. Left kidney normal size and echotexture, 12.7 cm length. The medical laboratory technologist demonstrates mild pelvic fullness bilaterally. It is [...] in OV> 04/11/25901 DD/ 0 TD/TT: 04/11/25900 Steel Grinder: us Clara Shearer MD IMG US PROCEDURES Edited Result - Final documented in this encounter Visit Diagnoses Diagnosis Hematuria, unspecified type- Primary documented in this encounter Additional Health Concerns Assessment Noted Time PHQ-9 Depression Total Score: 17 025 1:38 PM EDT documented as of this encounter Care Teams Executive Vp Relationship Specialty Start Date End Date Clara Shearer MD [address] [place] [address] PCP - General Family Medicine 07/24/18 documented as of this encounter
--- OUTSIDE RECORDS SUMMARY | 2025-06-18 16:25 | XMS_ITS | Encounter Summary ---
Author Organization [employer] Address [address] [place] [address] 7t [place] [address] Care Team Providers Care Training And Development Officer Name Role Phone Clara Shearer MD Primary Care Provider [phone] Reason for Referral * Imaging (Routine) - Authorized Specialty Diagnoses / Procedures Referred By Contac t Referred To Contact Radiology Diagnoses Transaminitis RUQ pain Procedures US Abdomen Comp w elastography Clara Shearer MD [address] [place] [address] Phone: tel: fax: [address] [address] Phone: tel: fax: Referral ID Status Reason Start Date Expiration Date V isits Requested Visits Authorized [id number] Authorized 06/11/2025 06/11/2026 1 1 Encounter Details Date Type Department Care Team (Late st Contact Info) Description 06/11/2025 Orders Only [facility] [address] [place], [place] [phone] Clara Shearer MD [address] [place] [address] Transaminitis (Primary Dx); RUQ pain [...] Description 07/22/2025 2:15 PM EST Office Visit [facility] [address] [place] [address] Clara Shearer MD [address] [place] [address] 08/20/2025 2:15 PM EST Office Visit [facility] ADULT DENTAL [address] [place] [address] Katt Espinoza [address] [place] [address] Scheduled Orders Name Type Priority Associated Diagnoses Orde r Schedule US Abdomen Comp w elastography Imaging Routine Transaminitis RUQ pain Expected: 06/11/2025, Expires: 06/11/2026 documented as of this encounter Procedures Procedure Name Priority Date/Time Associated Diagnosis Comments HEPATITIS C AB W/REFL TO HCV RNA, QN, PCR Routine 06/18/2025 8:37 AM EST Transaminitis HEPATITIS B SURFACE ANTIGEN, EIA Routine 06/18/2025 8:37 AM EST Transaminitis HEPATIC FUNCTION PANEL Routine 06/18/2025 8:37 AM EST Transaminitis documented in this encounter Results * Hepatitis B surface antigen, EIA (06/18/2025 8:37 AM EST) Hepatitis B Surface Ag Negative Negative [facility] Venous blood specimen / Unknown 06/18/2025 8:37 AM EST 06/18/2025 8:43 AM EST us Clara Shearer MD LAB BLOOD ORDERABLES Final Resul t Performing Organization Address City/[facility]/ZIP Co de Phone Number [facility] [address] [place] [phone] * Hepatitis C Antibody with Reflex to HCV, RNA, Quantitative, Real-Time PCR (06/18/2025 8:37 AM EST) Hepatitis C Antibody Nonreactive Nonreactive [facility] Comment:Antibodies to HCV no t detected; does not exclude early acuteHCV infection. Venous blood specimen / Unknown 06/18/2025 8:37 AM EST 06/18/2025 8:43 AM EST us Clara Shearer MD LAB BLOOD ORDERABLES Final Resul t [facility] [address] [place] [address] [phone] * (ABNORMAL) Hepatic Function Panel (06/18/2025 8:37 AM EST) Bilirubin, Total 0.3 0.0 - 1.0 mg/dL [facility] Bilirubin, Direct 0.1 0.0 - 0.5 mg/dL [facility] Aspartate Amino Transferase 65(H) 5 - 31 U/L [facility] Alanine Aminotransferase 162(H) 0 - 31 U/L [facility] Total Protein 7.7 6.5 - 8.0 g/dL [facility] Albumin Level 4.5 3.5 - 5.0 g/dL [facility] Alkaline Phosphatase 121(H) 39 - 117 U/L [facility] Blood Venous blood specimen / Unknown 06/18/2025 8:37 AM EST 06/18/2025 8:43 AM EST us Clara Shearer MD LAB BLOOD ORDERABLES Final Resul t [facility] [address] [place] [address] [phone] documented in this encounter Visit Diagnoses Diagnosis Transaminitis- Primary Nonspecific elevation of levels of transaminase or lactic acid dehydrogenase (LDH) RUQ pain Abdominal pain, right upper quadrant documented in this encounter Additional Health Concerns Assessment Noted Time PHQ-9 Depression Total Score: 0 06/10/20 25 9:47 AM EST documented as of this encounter Care Teams Training And Development Officer Relationship Specialty Start Date End Date Clara Shearer MD [address] [place] [address] PCP - General Family Medicine 07/24/18 documented as of this encounter
--- OUTSIDE RECORDS SUMMARY | 2025-06-18 16:25 | XMS_ITS | Encounter Summary ---
Author Organization [facility] Address [address] [place] [address] Phone Care Team Providers Care Publications Designer Name Role Phone Clara Shearer MD Primary Care Provider [phone] Encounter Details Date Type Department Care Team ([facility] st Contact Info) Description 05/05/2025 Procedure Pass [facility] Echocardiography [address] [place] [address] Social History Tobacco Use Types Packs/Day Years [...] 4:00 PM EDT Kacy Cardoza RN * Catherine Suicide Severity Rating Scale (Screener/Recent Self-Report) Question [...] Info) Description 07/04/2025 10:45 AM EST Follow-Up [facility] Soft Crab Shedder Oncology [address], [address] [place] [address] Jaja Huber MD 75 [facility], [address] [place] [address] [email or web address] documented as of this encounter Visit Diagnoses Not on filedocumented in this encounter Care Teams Publications Designer Relationship Specialty Start Date End Date Clara Shearer MD [address] [place] [phone] PCP - General Family Medicine 02/16/22 documented as of this encounter Additional Source Comments The information contained in this document represents components of the legal health record. It is not the complete legal health record.[facility]
--- OUTSIDE RECORDS SUMMARY | 2025-06-18 16:25 | XMS_ITS | Encounter Summary ---
Author Organization [facility] Address [address] [place] [address] Phone Care Team Providers Care Vp Sales Name Role Phone Clara Shearer MD Primary Care Provider [phone] Encounter Details Date Type Department Care Team (Late st Contact Info) Description 05/04/2025 Procedure Pass [facility], Ct Scan - [address] [address] Social History Tobacco Use Types Packs/Day Years [...] 4:00 PM EDT Kacy Cardoza RN * [place] Suicide Severity Rating Scale (Screener/Recent Self-Report) Question Answer Date of Assessment Author 1. Wish to be (Past 1 Month) No 05/05/2025 4:00 PM EDT Kacy Rivas , EVY 2. Non-Specific Active Suici layton Thoughts (Past 1 Month) No 05/05/2025 4:00 PM EDT Madhu Rivas, EVY 6. Suicidal Behavior (Lifetime) No 4:00 PM EDT Kacy Rivas, RN documented as of this encounter Plan of Treatment Upcoming Encounters Date Type Department Care Team (Late st Contact Info) Description 07/04/2025 10:45 AM EST Follow-Up [facility] Induction Machine Operator Oncology [address] [place] [address] [address], [address] [place] [address] Jaja Huber MD 75 [facility], [email or web address] [place] [address] [email or web address] documented as of this encounter Visit Diagnoses Not on filedocumented in this encounter Care Teams Vp Sales Relationship Specialty Start Date End Date Clara Shearer MD [address] [place] [address] PCP - General Family Medicine 02/16/22 documented as of this encounter Additional Source Comments The information contained in this document represents components of the legal health record. It is not the complete legal health record.[facility]
--- OUTSIDE RECORDS SUMMARY | 2025-06-18 16:25 | XMS_ITS | Encounter Summary ---
Author Organization [facility] Address [address] [place] [address] Phone Care Team Providers Care Humane Agent Name Role Phone Clara Shearer MD Primary Care Provider [phone] Encounter Details Date Type Department Care Team (Late st Contact Info) Description 05/06/2025 Procedure Pass [facility] Periop [address] [place] [address] Social History Tobacco Use Types Packs/Day Years [...] Upcoming Encounters Date Type Department Care Team ([facility] st Contact Info) Description 07/04/2025 10:45 AM EST Follow-Up [facility] Tensile Tester Oncology [address] [place] [address], [address] [place] [address] Jaja Huber MD [address] [place], [place] [phone] [email or web address] documented as of this encounter Visit Diagnoses Not on filedocumented in this encounter Care Teams Humane Agent Relationship Specialty Start Date End Date Clara Shearer MD [address] [place] [address] PCP - General Family Medicine 02/16/22 documented as of this encounter Additional Source Comments The information contained in this document represents components of the legal health record. It is not the complete legal health record.[facility]
--- OUTSIDE RECORDS SUMMARY | 2025-06-18 16:26 | XMS_ITS | Encounter Summary ---
Author Organization [employer] Address [address] [facility] 7t [place] [address] Care Team Providers Care Cancer Registrar Name Role Phone Clara Shearer MD Primary Care Provider [phone] Encounter Details Date Type Department Care Team [...] t he electric, gas, oil or water Grain Management threatened to shut off services in your [...] Description 07/22/2025 2:15 PM EST Office Visit [facility] [address] [place] [address] Clara Shearer MD [address] [place] [address] 08/20/2025 2:15 PM EST Office Visit [facility] ADULT DENTAL [address] [place] [address] Olga, Katt [address] [place] [address] documented as of this encounter Procedures Procedure Name Priority Date/Time Associated Diagnosis Comments PROTHROMBIN TIME WHOLE BLD POC Routine 06/18/2025 8:15 AM EST ~PT, ~INR - ANTI COAG CLINIC Routine 06/18/2025 8:15 AM EST documented in this encounter Results * (ABNORMAL) PROTHROMBIN TIME WHOLE BLD POC (06/18/2025 8:15 AM EST) Protime 30.3(H) 11.1 - 13.5 sec [facility] 06/18/2025 8:15 AM EST 06/18/2025 8:18 AM EST us Generic External Data Provider LAB BLOOD ORDERAB LES Final Result [facility] [address] [place] [address] [phone] * (ABNORMAL) ~PT, ~INR - ANTI COAG CLINIC (06/18/2025 8:15 AM EST) Prothrombin Time INR 2.5(H) 0.9 - 1.1 [facility] Comment:METER #: [id number] TERNATIONAL NORMALIZED RATIO (INR) REFERENCE RANGES Reference [...] Provider LAB BLOOD ORDERAB LES Final Result [facility] [address] [place] [address] [phone] documented in this encounter Visit Diagnoses Not on filedocumented in this encounter Additional Health Concerns Assessment Noted Time PHQ-9 Depression Total Score: 0 06/10/20 25 9:47 AM EST documented as of this encounter Care Teams Cancer Registrar Relationship Specialty Start Date End Date Clara Shearer MD [address] [place] [address] PCP - General Family Medicine 07/24/18 documented as of this encounter
--- OUTSIDE RECORDS SUMMARY | 2025-06-18 16:26 | XMS_ITS | Encounter Summary ---
Author Organization [employer] Address [address] [facility] 7t [place] [address] Care Team Providers Care Recreational Resort Manager Name Role Phone Clara Shearer MD Primary Care Provider [phone] Reason for Visit * Reason Onset Date Comments Referral 06/13/2025 Encounter Details Date Type Department Care Team ([facility] st Contact Info) Description 06/13/2025 Telephone [facility] [address] [place], [place] [phone] Clara Shearer MD [address] [place], [place] [phone] Referral Social History Tobacco Use Types Packs/Day [...] 3:54 PM EST TC from Adriana at [facility] who called to confirm that the pt [...] 3:38 PM EST Tc from Adriana at [facility] returning call regarding prior message. Contact pt Adriana at [phone] * Telephone Encounter - Sabine Chang RN - 06/16/2025 2:19 PM EST Return call placed to Roseanne at [facility] and a VM was left to call back the office * Telephone Encounter - Kyle oCx - 06/13/2025 2:49 PM EST Tc from Adriana at [facility] stating pt was referred to in home pt but do to evaluation pt is able to go to a clinic so she is requesting for pt to be referred to outpatient pt Contact at [phone] documented in this encounter Plan of Treatment Upcoming Encounters Date Type Department Care Team (Late st Contact Info) Description 07/22/2025 2:15 PM EST Office Visit [facility] [address] [place] [address] Clara Shearer MD [address] [place] [address] 08/20/2025 2:15 PM EST Office Visit [facility] ADULT DENTAL [address] [place] [address] Katt Espinoza [address] [place] [address] documented as of this encounter Visit Diagnoses Not on filedocumented in this encounter Additional Health Concerns Assessment Noted Time PHQ-9 Depression Total Score: 0 06/10/20 25 9:47 AM EST documented as of this encounter Care Teams Recreational Resort Manager Relationship Specialty Start Date End Date Clara Shearer MD [address] [place] [address] PCP - General Family Medicine 07/24/18 documented as of this encounter
--- OUTSIDE RECORDS SUMMARY | 2025-06-18 16:26 | XMS_ITS | Clinical Summary ---
Author Organization [facility] Address [address] [place] [address] Phone Care Team Providers Care School Adjustment Counselor Name Role Phone Clara Shearer MD [...] with 3mg on Monday. recheck 06/18 at [facility] 07/15/20 22 Active BABY ASPIRIN ORAL Take [...] pancreatitis in November 2022 - following with [facility], last seen in Feb 2023 [...] on warfarin - previously prescribed metoprolol by board worker; no longer on the medication due to hypotension / dizziness - continue following with board worker, [facility] Dr Haynes - last TTE in January 2022, mild mitral valve stenosis - continue current treatment plan per cardiology Chronic anticoagulation 11/22/2022 Overview (11/28/2023): Last Assessment & Plan: - indication: Aortic valve replacement - medication warfarin - goal INR 2-3 - followed by [facility] anticoagulation clinic - last INR was 2.0 on 03/01/23 - continue current management plan Abnormal uterine bleeding 11/08/2022 Overview (11/28/2023): Last Assessment & Plan: s/p Endometrial Curetting's, polyp, benign -Pt has follow-up appointment with [facility] -Pt is on Coumadin -Pt requested Hysterectomy, pt will follow-up with [facility] with possible hysterectomy in future Vitamin D deficiency 12/04/2018 Overview (11/28/2023): Last Assessment & Plan: -continue vitamin D supplement History of mechanical aortic valve replacement 0 04/07/2015 Overview (11/28/2023): Last Assessment & Plan: - 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 Haynes, last seen in Aug [...] Overview (11/28/2023): Last Assessment & Plan: - [facility] last seen in Aug 2023 [...] Care Visit [facility] [address] [place] [address] Darlin Car RN SN OASIS DISCHARGE VISIT 06/13/2025 10:15 AM EST Home Care Visit [facility] [address] [place] [address] Roseanne Marsh, PT PT EVALUATION 06/11/2025 Home Care Visit [facility] [address] [place] [address] Darlin Car, RN TELEPHONE ENCOUNTER 06/11/2025 Home Care Visit [facility] [address] [place], [place] [phone] Darlin Car, RN TELEPHONE ENCOUNTER 06/10/2025 7:00 AM EST Home Care Visit [facility] [address] [place] [address] Joseph Cates LPN SOLUTION DIRECTOR HOME VISIT 06/04/2025 Episode Documentation Update [facility] [address] [place] [address] 06/03/2025 10:30 AM EST Home Care Visit [facility] [address] [place] [address] Chelsea Gutierrez RN SN HOME VISIT 06/03/2025 Home Care Visit [facility] [address] [place] [address] Chelsea Gutierrez RN CASE COMMUNICATION 06/02/2025 1:00 PM EST Follow-Up [facility] [address] [place] [address], [address] [place] [address] Jaja Huber MD S/P hysterectomy (Primary Dx) 05/29/2025 11:00 AM EST Home Care Visit [facility] [address] [place] [address] Darlin Car, EVY SN HOME VISIT 05/28/2025 9:30 AM EST Home Care Visit [facility] [address] [place] [address] Darlin Car, EVY SN PRN HOME VISIT 05/28/2025 Documentation [facility] [address] [place] [address], [address] [place] [address] Leslie Devlin, EVY 05/28/2025 Home Care Visit [facility] [address] [place] [address] Meliza Devi, EVY TELEPHONE ENCOUNTER 05/27/2025 12:00 PM EST Home Care Visit [facility] [address] [place] [address] Chelsea Gutierrez, RN SN HOME VISIT 05/27/2025 Home Care Visit [facility] [address] [place], [place] [phone] Chelsea Gutierrez, RN CASE COMMUNICATION 05/23/2025 11:00 AM EDT Home Care Visit [facility] [address] [place], [place] [phone] Darlin Car, RN SN HOME VISIT 05/23/2025 Refill [facility] [address] [place] [address] ASB1-3, [address] [place] [phone] Bonnie Sosa, RN 05/22/2025 Episode Documentation Update [facility] [address] [place] [address] Megan Manning 05/21/2025 Episode Documentation Update [facility] [address] [place] [address] Guadalupe Conde 05/20/2025 11:50 AM EDT - 05/20/2025 11:59 PM EDT Hospital Encounter [facility] Specimen Processing [address] [place] [address] Jaja Huber DO Discharge Disposition: Home or Self Care 05/20/2025 11:30 AM EDT Home Care Visit [facility] [address] [place] [address] Debra Salinas, EVY SN HOME VISIT 05/20/2025 Transcribe Orders [facility] [address] [place] [address] Jaja Huber DO Urinary tract infection without hematuria, site unspecified (Primary Dx) 05/17/2025 Home Care Visit [facility] [address] [place] [address] Alejandrina Hall, ROCKET SCIENTIST CLINICAL COMMUNICATION 05/16/2025 5:00 AM EDT Home Care Visit [facility] [address] [place] [address] Joseph Cates LPN LPN HOME VISIT 05/14/2025 Telephone [facility] [address] [place] [address], Suite [facility] [place] [address] Bonnie Sosa, RN FMLA paperwork 05/14/2025 Home Care Visit [facility] [address] [place] [address] Katy Anderson RN CASE COMMUNICATION 05/14/2025 Telephone [facility] [address] [place] [address], [address] [place] [address] Leslie Devlin, EVY 05/14/2025 Orders Only [facility] [address] [place] [address], [address] [place] [address] Leslie Devlin RN Hematuria (Primary Dx) 05/13/2025 Home Care Visit [facility] [address] [place] [address] Joseph Cates LPN LPN HOME VISIT 05/12/2025 Episode Documentation Update [facility] [address] [place] [address] 05/10/2025 7:30 AM EDT Home Care Visit [facility] [address] [place] [address] Darlin Car, EVY SN OASIS START OF CARE (SOC) 05/10/2025 Plan of Care Documentation [facility] [address] [place] [address] 05/08/2025 Orders Only [facility] [address] [place] [address] Homehealth, Suresh Thomas MD 05/06/2025 11:14 AM EDT Anesthesia Event [facility] Periop [address] [place] [address] Jovana Bunn MBBS, Eryn Holland CRNA 05/06/2025 11:08 AM EDT - 05/06/2025 1:26 PM EDT Surgery [facility] Periop [address] [place] [address] Jaja Huber MD LAPAROSCOPIC TOTAL HYSTERECTOMY, BILATERAL SALPINGECTOMY, RIGHT OOPHERECTOMY, OMENTAL BIOPSY 05/06/2025 Procedure Pass [facility] Periop [address] [place] [address] 05/05/2025 Procedure Pass [facility] Echocardiography [address] [place] [address] 05/04/2025 8:54 PM EDT - 05/09/2025 11:16 AM EDT Hospital Encounter [facility] CWN [address] [place] [address] Benita Webster MD Davis, Michelle R, MD Kopp, MD Maribeth Harrison, Raul Saul MD Discharge Disposition: Home-Health Care [facility] 05/04/2025 1:16 PM EDT - 05/04/2025 7:05 PM EDT Emergency [facility] Emergency [address] [place] [address] Discharge Disposition: Critical Access Hospital 05/04/2025 Procedure Pass [facility], Ct Scan - [facility] [address] [place] [address] from Last 3 Months Immunizations Immunization Administration [...] Upcoming Encounters Date Type Department Care Team ([facility] st Contact Info) Description 07/04/2025 10:45 AM EST Follow-Up [facility] [address] [place] [address], [address] [place] [address] Jaja Huber MD [address] [place], [place] [phone] [email or web address] Maintenance Due Date Last Done Comments [...] this topic Medical Devices Implanted Type Area Account Development Representative Device Identifier Shelf Expiration Date Model / Serial / Lot Prosthetic Valve Prosthetic Valve Aorta Description:Aortic valve rep lacement in 2009 pt does not know which type of aortic valve was implanted Device Contraceptive 52mg Iud Mirena - Must Order In Multiples Of 5 - [id number] Implanted:Qty: 1 on 08/19/2022 by Ronald Estrada MD at [facility] N/A: Uterus [employer] 06/22/2024 [id number] / / [id number] Procedures Procedure Name Priority Date/Time Associated Diagnosis [...] PLACEMENT Routine 05/06/2025 11:2 5 AM EDT OR LAP,DIAGNOSTIC ABDOMEN 05/06/2025 10:42 AM EDT Pelvic mass PTT Timed 05/06/2025 9:52 AM EDT POCT GLUCOSE Routine 05/06/2025 8:44 AM EDT PT-INR Routine 05/06/2025 5:17 AM EDT CBC Routine 05/06/2025 5:17 AM EDT BASIC METABOLIC PANEL (BMP) Routine 05/06/2025 5:17 AM EDT PTT Timed 05/06/2025 2:45 AM EDT NON-[facility] CYTOLOGY, NON CSF, NON URINE Routine 05/06/2025 [...] Urine Culture (05/20/2025 11:54 AM EDT) Pathologist [facility] Special Requests None 05/20/2025 11:54 AM EDT [facility] Urine Culture <10,000 colony forming units per mL 05/21/2025 11:43 AM EDT [facility] Urine (Urine) 05/20/2025 11: 54 AM EDT 05/20/2025 11:59 AM EDT us Jaja Huber DO LAB MICROBIOLOGY CULTURE ORDER DOREEN Final Result [address] [address] * (ABNORMAL) PT-INR (05/09/2025 5:24 AM EDT) Only the most recent of12 resultswithin the time period is included. PT 15.2(H) 10.0 - 13.0 sec [facility] INR 1.3(H) 0.9 - 1.1 [facility] Blood 05/09/2025 5:24 AM EDT 05/09/2025 6:12 AM EDT Leslie Perez PA-C LAB BLOOD BKR ORDERA BLES Final Result Performing Organization Address [facility] Co de Phone Number [facility] [address] [place] [address] * (ABNORMAL) CBC (05/09/2025 5:24 AM EDT) Only the most recent of10 resultswithin the time period is included. WBC 4.64 4.00 - 11.00 K/uL [facility] RBC 3.41(L) 4.00 - 5.20 M/uL [facility] HGB 10.4(L) 12.0 - 16.0 g/dL [facility] HCT 32.3(L) 36.0 - 46.0 % [facility] PLT 316 150 - 450 K/uL [facility] MCV 94.7 80.0 - 100.0 fL [facility] MCH 30.5 27.0 - 31.0 pg [facility] MCHC 32.2 32.0 - 36.0 g/dL [facility] RDW 14.3 11.5 - 14.5 % [facility] MPV 9.0 8.4 - 12.0 fL [facility] NRBC 0.00 0.00 /100 WBCs [facility] ABSOLUTE NRBC 0.00 0.00 K/uL [facility] CL [facility] Blood 05/09/2025 5:24 AM EDT 05/09/2025 6:12 AM EDT Jaja Huber MD LAB BLOOD BKR ORDERABLES Fin al Result Performing Organization Address City/[facility]/ZIP Co de Phone Number [address] [address] * Magnesium (05/09/2025 5:24 AM EDT) Only the most recent of5 resultswithin the time period is included. MAGNESIUM 2.0 1.7 - 2.6 mg/dL [facility] Blood 05/09/2025 5:24 AM EDT 05/09/2025 6:12 AM EDT [facility]-C LAB BLOOD BKR ORDERA BLES Final Result Performing Organization Address [facility] de Phone Number [facility] [address] [place] [address] * Basic metabolic panel (05/09/2025 5:24 AM EDT) Only the most recent of7 resultswithin the time period is included. SODIUM 139 136 - 145 mmol/L [facility] POTASSIUM 3.9 3.4 - 5.1 mmol/L [facility] CHLORIDE 105 98 - 107 mmol/L [facility] CO2 24 22 - 31 mmol/L [facility] BUN 9 6 - 23 mg/dL [facility] CREATININE 0.50 0.50 - 1.20 mg/dL [facility] GLUCOSE 87 70 - 100 mg/dL [facility] CALCIUM 9.1 8.8 - 10.7 mg/dL [facility] EGFR 116 >59 mL/min/1.7 3m2 [facility] Comment:Estimated glomerular filtration rate calculated using the CKD-EPI refit equation. ANION GAP 10 7 - 17 mmol/L [facility] Blood 05/09/2025 5:24 AM EDT 05/09/2025 6:12 AM EDT [facility] Ana PA-C LAB BLOOD BKR ORDERA BLES Final Result Performing Organization Address [facility] de Phone Number [address] [address] * (ABNORMAL) PTT (05/08/2025 9:14 AM EDT) Only the most recent of11 resultswithin the time period is included. APTT 74.7(H) 24.0 - 37.5 sec [facility] Comment:Emicizumab (Hemlibra ) treatment can result in falsely lowered aPTT test results. Blood 05/08/2025 9:14 AM EDT 05/08/2025 9:19 AM EDT Jaja Huber MD LAB BLOOD BKR ORDERABLES Fin al Result Performing Organization Address [facility] Co de Phone Number [facility] [address] [place] [address] * ECG 12-LEAD (05/07/2025 8:36 PM EDT) Only the most recent of2 resultswithin the time period is included. Ventricular Rate EKG/MIN 70 BPM [facility] Atrial Rate 70 BPM [facility] OR Interval 156 ms [facility] QRS Duration 122 ms [facility] QT Interval 428 ms [facility] QTC Interval 462 ms [facility] P [place] 16 degrees [facility] R Wave [place] 50 degrees [facility] T Wave [place] 81 degrees [facility] 05/07/2025 8:36 PM EDT Narrative [facility] - 05/21/2025 2:29 PM EDT Normal sinus rhythm Right bundle branch block Abnormal ECG When compared with ECG of 04-May-2025 21:29, No significant change was found Jaja Huber MD ECG ORDERABLES Final Result Performing Organization Address City/[facility] Co de Phone Number [facility] * (ABNORMAL) DIC screen (05/07/2025 8:26 AM EDT) PT 12.3 10.0 - 13.0 sec [facility] INR 1.1 0.9 - 1.1 [facility] APTT 27.9 24.0 - 37.5 sec [facility] Comment:Emicizumab (Hemlibra ) treatment can result in falsely lowered aPTT test results. FIBRINOGEN 774(H) 200 - 400 mg/dL [facility] Blood 05/07/2025 8:26 AM EDT 05/07/2025 8:30 AM EDT us Leslie Perez PA-C LAB BLOOD BKR ORDERA BLES Final Result Performing Organization Address [facility]/ZIP Co de Phone Number [facility] [address] [place] [address] * (ABNORMAL) POCT Glucose (05/06/2025 2:02 PM EDT) Only the most recent of3 resultswithin the time period is included. Glucose, POCT 166(H) 70 - 100 mg/dL [facility] 05/06/2025 2:02 PM EDT 05/06/2025 2:04 PM EDT us Jaja Huber MD POINT OF CARE TEST ORDERABLE S Final Result Performing Organization Address City/[facility] Co de Phone Number [facility] [address] [place] [phone] * Prepare RBC, 2 Units (05/06/2025 2:01 PM EDT) Product Code [id number] 05/06/2025 2:01 PM EDT [facility] Unit Number [id number] 05/06/20 25 2:01 PM EDT [facility] ABO of Unit O 05/06/2025 2:01 PM EDT [facility] Rh of Unit POS 05/06/2025 2:01 PM EDT [facility] Crossmatch Interpretation Compatible 05/06/2025 8:29 AM EDT [facility] Product Status No Longer Ready 05/06 2:01 PM EDT [facility] Expiration Date/Time [id number] 05/06/2025 2:01 PM EDT [facility] Blood Type Barcode 5100 05/06/2025 2:01 PM EDT [facility] Unit Volume 300 mL 05/06/2025 2:01 PM EDT [facility] Product Code [id number] 05/06/2025 2:01 PM EDT [facility] Unit Number [id number] 05/06/20 2:01 PM EDT [facility] ABO of Unit O 05/06/2025 2:01 PM EDT [facility] Rh of Unit POS 05/06/2025 2:01 PM EDT [facility] Crossmatch Interpretation Compatible 05/06/2025 8:29 AM EDT [facility] Product Status No Longer Ready 05/06 2:01 PM EDT [facility] Expiration Date/Time [id number] 05/06/2025 2:01 PM EDT [facility] Blood Type Barcode 5100 05/06/2025 2:01 PM EDT [facility] Unit Volume 300 mL 05/06/2025 2:01 PM EDT [facility] us Eryn Marcos [facility] BLOOD BANK PRODUCT ORD ERABLES Final Result Performing Organization Address City/[facility] Co de Phone Number [facility] [address] [place] [address] * (ABNORMAL) Fibrinogen (05/06/2025 2:00 PM EDT) FIBRINOGEN 749(H) 200 - 400 mg/dL [facility] Blood 05/06/2025 2:00 PM EDT 05/06/2025 2:05 PM EDT us Jaja Huber MD LAB BLOOD BKR ORDERABLES Fin al Result Performing Organization Address City/[facility]/ZIP Co de Phone Number [facility] [address] [place] [address] * ANES ETT DOUBLE LUMEN - AIRWAY LDA (05/06/2025 11:25 AM EDT) Narrative Eryn Marcos CRNA - 05/06/2025 11:25 AM EDT Eryn Marcos CRNA 05/06/2025 11:50 AM Airway Placement Procedure Note: Patient was not difficult to intubate. Procedure performed by: fellow/resident/BMX RIDER and anesthesiologist Anesthesiologist: Jovana Bunn MBBS, MD Fellow/Resident/BMX RIDER: Eryn Marcos CRNA Airway procedure initiated at:05/06/2025 [...] clear lung sounds. us Jovana AGUERO MD OR ANESTHESIA Fin al Result * Non-[facility] Cytology (05/06/2025 12:00 AM EDT) Results\Interpreta tion NON-DIAGNOSTIC SPECIMEN. [facility] CYTOLOGY Final Diagnosis Abundant blood. [facility] CYTOLOGY Notes and Recommendations NOTE: Insufficient cellular material for evaluation. Appropriate follow-up is recommended. [facility] CYTOLOGY Total Slides TotSlide1 [facility] CYTOLOGY Procedure Comments ProcThinPrep (non-S[facility]) - [facility] CYTOLOGY Report Accession No: [id number] Date: 1975 Sex: F [facility] Department of Pathology [address] [place] [address] CLIA License No.: [id number] Insurance Sales Representative: Jack Clark MD, PhD Physician: JAJA HUBER MD Procedure Date: 05/06/2025 Demand Equipment Repairer: KADEN Resendez(ASCP) Pathologist: Debbie Merritt M.D. PERITONEAL [...] on Friday May 09, 2025 at 05:38:55PM [facility] CYTOLOGY Conversion Type (Peritoneum) 05/06/2025 05/06/2025 us Jaja Huber MD CYTOLOGY ORDERABLES Edited R esult - Final [facility] CYTOLOGY * Anatomic Pathology (Non-MGB) (05/06/2025 12:00 AM EDT) 05/06/2025 05/06/2025 Narrative [facility] - 05/27/2025 9:24 PM EST CASE: [id number] PATIENT: OMAR MARTELL Date: 1975 Sex: Female [facility] Department of Pathology [address] [place] [address] CLIA License No.: [id number] Insurance Sales Representative: Dr. Tani Briceno M.D., Ph.D. Physician: JAJA [...] device (3.4 x 3.3 x 0.3 cm). Credit Report Checker sections are submitted. A1: Anterior cervix, 1 [...] a dark red, homogenous, hemorrhagic soft tissue. Credit Report Checker section is submitted as FSB1. There is scant parnell-pink fibrous stroma remaining. The fallopian tube is pink-purple and smooth. Sectioning reveals a patent lumen. Gross photographs are taken. Credit Report Checker sections are submitted as follows: B1: Remnant [...] No masses or nodules are grossly noted. Credit Report Checker sections are submitted as follows: C1-C5: Omentum [...] MD LAB PATHOLOGY ORDERABLES Fin al Result [facility] [address] [place] [address], [place] [address] * TTE COMPREHENSIVE (05/05/2025 2:07 PM EDT) [...] bpm Anatomical Region Laterality Modality Heart [facility] Narrative 05/05/2025 4:09 PM EDT Left [...] (3). Comparison Findings There are no prior [facility] studies for comparison. us Jaja Huber MD CV ECHO ORDERABLES Final Res ult * Inhibin A & B, tumor marker (05/05/2025 8:54 AM EDT) INHBN A TUMOR ANTELMO. 9.5 pg/mL [facility] Comment: (NOTE) REFERENCE VALUE <98 (Premenopausal) <5.0 (Postmenopausal) ADDITIONAL INFORMATION This test has been modified from the steam trap worker's instructions. Its performance characteristics were determined by [facility] in a manner consistent with CLIA requirements. This test has not been cleared or approved by the U.S. Food and Drug Administration. The testing method is an immunoenzymatic assay manufactured by [employer] and performed on the [employer] 800. Values obtained with different assay methods or kits may be different and cannot be used interchangeably. Test results cannot be interpreted as absolute evidence for the presence or absence of malignant disease. Inhibin A values are not interpretable in females for the investigation of malignant disease. INHIBN B, INFERTILITY <10 pg/mL [facility] Comment: (NOTE) REFERENCE VALUE Premenopausal: <108 pg/mL (Follicular) <80 pg/mL (Luteal) Postmenopausal: <12 pg/mL ADDITIONAL INFORMATION The testing method is a manual immunoenzymatic assay manufactured by [employer]. Values obtained with different assay methods or kits may be different and cannot be used interchangeably. If this test is being ordered as a tumor marker, results cannot be interpreted as absolute evidence for the presence or absence of malignant disease. This test was developed and its performance characteristics determined by [facility] in a manner consistent with CLIA requirements. This test has not been cleared or approved by the U.S. Food and Drug Administration. Blood 05/05/2025 8:54 AM EDT 05/05/2025 9:03 AM EDT us Jaja Huber MD LAB BLOOD ORDERABLES Final R esult [facility] [address] [place] [address] * LDH (05/05/2025 8:54 AM EDT) LDH 212 135 - 225 U/L [facility] Blood 05/05/2025 8:54 AM EDT 05/05/2025 9:03 AM EDT Jaja Huber MD LAB BLOOD BKR ORDERABLES Fin al Result Performing Organization Address [facility] Co de Phone Number [facility] [address] [place] [address] * CA-19-9 (05/05/2025 8:54 AM EDT) CA 19-9 <1 0 - 35 U/mL [facility] Blood 05/05/2025 8:54 AM EDT 05/05/2025 9:03 AM EDT Jaja Huber MD LAB BLOOD BKR ORDERABLES Fin al Result Performing Organization Address [facility] Co de Phone Number [facility] [address] [place] [address] * HCG (tumor marker) (05/05/2025 8:54 AM EDT) BETA HCG <1.0 mIU/mL [facility] REPROD UCTIVE ENDOCRINOLOGY Comment: Reference Ranges: Female: Premenopausal, Non: 0-5.0 Postmenopausal: 0-8.0 Blood 05/05/2025 8:54 AM EDT 05/05/2025 9:03 AM EDT Jaja Huber MD LAB BLOOD ORDERABLES Final R esult Performing Organization Address City/[facility]/ZIP Co de Phone Number [facility] REPRODUCTIVE ENDOCRINOLOGY [address] [place] [address] * AFP (non-maternal specimens) (05/05/2025 8:54 AM EDT) AFP (NON-MATERNAL) <1.8 0 - 8.3 ng/mL [facility] ENDOCRINOLOG[facility] Blood 05/05/2025 8:54 AM EDT 05/05/2025 9:03 AM EDT Jaja Huber MD LAB BLOOD BKR ORDERABLES Fin al Result Performing Organization Address [facility] Co de Phone Number [facility] ENDOCRIN[facility] [address] [place] [address] * Estradiol (05/05/2025 8:54 AM EDT) ESTRADIOL 7 pg/mL [facility] UCTIVE ENDOCRINOLOGY Comment: Follicular 27-156 Mid-Cycle 50-308 Luteal 35-223 Post-Menopausal 0-47 , 1st Trimester [phone] , 2nd Trimester [id number] , 3rd Trimester 58023-35[address] This result is quantitatively invalid in patients being treated with fulvestrant(fasolodex). Blood 05/05/2025 8:54 AM EDT 05/05/2025 9:03 AM EDT Jaja Huber MD LAB BLOOD BKR ORDERABLES Fin al Result Performing Organization Address [facility] de Phone Number [facility] ENDOCRINOLOG[facility] [address] [place] [address] * Carcinoembryonic antigen (CEA) (05/05/2025 8:54 AM EDT) CEA 1.5 0 - 3.7 ng/mL [facility] Comment: CEA REFERENCE RANGE: NON-SMOKERS: < 3.8 ng/mL SMOKERS: < 5.0 ng/mL Blood 05/05/2025 8:54 AM EDT 05/05/2025 9:03 AM EDT us Jaja Huber MD LAB BLOOD BKR ORDERABLES Fin al Result Performing Organization Address [facility] Co de Phone Number [facility] [address] [place] [address] * US PELVIS TRANSABDOMINAL PLUS TRANSVAGINAL (05/04/2025 10:35 PM EDT) MGB IMG TOOLING SUPERVISOR COMMENT Please see finalized report. [facility] Anatomical Region Laterality Modality Pelvis, Uterus/Adnexa Ultrasound [...] initiated on 05/04/2025 11:20 PM, Message ID [id number]. A clinically significant result was initiated on 05/04/2025 11:22 PM, Message ID [id number]. Narrative 05/04/2025 11:23 PM EDT US PELVIS [...] left adnexa. Procedure Note Jl Gutierrez Said, [facility] - 05/04/2025 US PELVIS TRANSABDOMINAL AND [...] was initiated on 05/04/2025 11:20 PM,Message ID [id number]. A clinically significant result was initiated on 05/04/2025 11:22 PM,Message ID [id number]. us Brionna Stone PA-C IMG US PELVIS Final Result * (ABNORMAL) LFTs (hepatic panel) (05/04/2025 9:34 PM EDT) Only the most recent of2 resultswithin the time period is included. TOTAL PROTEIN 6.2(L) 6.4 - 8.3 g/dL [facility] ALBUMIN 3.3(L) 3.5 - 5.2 g/dL [facility] GLOBULIN 2.9 2.2 - 4.2 g/dL [facility] AST 18 10 - 50 U/L [facility] ALT 25 10 - 50 U/L [facility] ALKALINE PHOSPHATASE 54 35 - 130 U/L [facility] TOTAL BILIRUBIN 0.7 0.0 - 1.0 mg/dL [facility] DIRECT BILIRUBIN 0.2 0.0 - 0.3 mg/dL [facility] Blood 05/04/2025 9:34 PM EDT 05/04/2025 9:47 PM EDT Brionna Stone PA-C LAB BLOOD BKR ORDERABLES Danielle dooley Result Performing Organization Address City/State/[facility] Co de Phone Number [facility] [address] [place] [address] * (ABNORMAL) CBC and differential (05/04/2025 9:34 PM EDT) Only the most recent of3 resultswithin the time period is included. WBC 9.31 4.00 - 11.00 K/uL [facility] RBC 2.97(L) 4.00 - 5.20 M/uL [facility] HGB 9.3(L) 12.0 - 16.0 g/dL [facility] HCT 27.7(L) 36.0 - 46.0 % [facility] PLT 150 150 - 450 K/uL [facility] MCV 93.3 80.0 - 100.0 fL [facility] MCH 31.3(H) 27.0 - 31.0 pg [facility] MCHC 33.6 32.0 - 36.0 g/dL [facility] RDW 14.5 11.5 - 14.5 % [facility] MPV 9.3 8.4 - 12.0 fL [facility] NRBC 0.00 0.00 /100 WBCs [facility] ABSOLUTE NRBC 0.00 0.00 K/uL [facility] DIFF METHOD Auto [facility] NEUTS 80.1(H) 48.0 - 76.0 % [facility] LYMPHS 11.5(L) 18.0 - 41.0 % [facility] MONOS 7.5 4.0 - 11.0 % [facility] EOS 0.4 0.0 - 5.0 % [facility] BASOS 0.1 0.0 - 1.5 % [facility] % IMMATURE GRANS 0.4 0.0 - 0.9 % [facility] ABSOLUTE NEUTS 7.45 1.92 - 7.60 K/uL [facility] Comment:1.21-5.39 cells/KL i s the reference range for individuals with the Falk null phenotype ABSOLUTE LYMPHS 1.07 0.72 - 4.10 K/uL [facility] ABSOLUTE MONOS 0.70 0.16 - 1.10 K/uL [facility] ABSOLUTE EOS 0.04 0.00 - 0.50 K/uL [facility] ABSOLUTE BASOS 0.01 0.00 - 0.15 K/uL [facility] ABS IMMATURE GRANS 0.04 0.00 - 0.09 K/uL [facility] ABSOLUTE NEUTROPHIL COUNT 7.45 1.92 - 7.60 K/uL [facility] Comment: Automated cell count. Manual ANC may differ if performed. 1.21-5.39 cells/KL is the reference range for individuals with the Falk null phenotype Blood 05/04/2025 9:34 PM EDT 05/04/2025 9:47 PM EDT us Brionna Stone PA-C LAB BLOOD BKR ORDERABLES Danielle l Result [facility] [address] [place] [address] * Type and Screen (ABO,Rh,Antibody Screen) (05/04/2025 9:34 PM EDT) Expiration Date of Sample 05/07/2025 11:59 PM 05/04/2025 11:05 PM EDT [facility] Resulting Agency [facility] ABO Type O 05/04/2025 11:05 PM EDT [facility] Rh Type Positive 05/04/2025 11:05 PM EDT [facility] Antibody Screen Negative 05/04/2025 11:05 PM EDT [facility] Blood 05/04/2025 9:34 PM EDT 05/04/2025 9:50 PM EDT Brionna Stone PA-C LAB BLOOD BANK TEST ORDERABLE S Final Result Performing Organization Address [facility] Co de Phone Number [facility] [address] [place] [address] * Lipase (05/04/2025 9:34 PM EDT) Only the most recent of2 resultswithin the time period is included. LIPASE 22 13 - 60 U/L [facility] Comment: Blood 05/04/2025 9:34 PM EDT 05/04/2025 9:47 PM EDT Brionna Stone PA-C LAB BLOOD BKR ORDERABLES Danielle l Result Performing Organization Address City/[facility]/ZIP Co de Phone Number [facility] [address] [place], [place] [phone] * HUMAN EPIDIDYMIS PROTEIN 4, BLOOD (05/04/2025 5:06 PM EDT) Human epididymis protein 4 54 <=140 pmol/L [place] [facility] SUPERIOR Comment: (NOTE) ADDITIONAL [...] Warren PA-C LAB BLOOD ORDERABLES Final Result [facility] [address] [place] [address] * Hold Specimen In Blood Bank (05/04/2025 5:06 PM EDT) Expiration Date of Sample 05/07/2025 ,2359 [facility] Resulting Agency [facility] Blood 05/04/2025 5:06 PM EDT 05/04/2025 5:13 PM EDT Ashleigh Warren PA-C LAB BLOOD BANK TEST ORDERAB LES Final Result Performing Organization Address [facility]/ZIP Co de Phone Number [address] [address] * CA-125 (05/04/2025 5:06 PM EDT) Pathologist [facility] [place] 125 28.5 0 - 35 U/mL [facility] Comment: Test Methodology Yeny [id number] Patient results determined by assays using different manufacturers or methods may not be comparable. Blood 05/04/2025 5:06 PM EDT 05/04/2025 5:13 PM EDT us Ashleigh Warren PA-C LAB BLOOD BKR ORDERABLES Fi nal Result Performing Organization Address [facility]/ZIP Co de Phone Number [address] [address] * CT ABDOMEN/PELVIS WITH CONTRAST (05/04/2025 3:16 PM EDT) MGB IMG TOOLING SUPERVISOR COMMENT ovarian mass vs hemorrhagic cyst vs torsion. free fluid + blood products, indeterminate for carcinomatosis [facility] Anatomical Region Laterality Modality Abdomen, Pelvis Computed [...] initiated on 05/04/2025 4:42 PM, Message ID [id number]. ATTESTATION: I, Jack Bowers as teaching physician, [...] was initiated on 05/04/2025 4:42 PM,Message ID [id number]. ATTESTATION: I, Jack Bowers as teaching physician, have reviewed theimages for this case and if necessary edited the report originally createdby Sophie Merino MD. us Ashleigh Warren PA-C IMG CT ABD/PELVIS Final Res ult * HCG, serum qualitative (05/04/2025 1:40 PM EDT) HCG, QUALITATIVE Negative Negative IU/L [facility] Blood 05/04/2025 1:40 PM EDT 05/04/2025 1:51 PM EDT Alberto Vasques MD LAB BLOOD BKR ORDERABLES Final R esult Performing Organization Address [facility] Co de Phone Number [address] [address] * (ABNORMAL) Urinalysis w/reflex Urine Culture (05/04/2025 1:19 PM EDT) COLOR Yellow Yellow [facility] CLARITY Clear [facility] GLUCOSE Negative Negative [facility] BILI Negative Negative [facility] KETONES Negative Negative [facility] SPECIFIC GRAVITY 1.010 1.005 - 1.030 [facility] BLOOD 1+(A) Negative [facility] PH 7.5 5.0 - 8.0 [facility] Protein-UA Negative Negative [facility] NITRITE Negative Negative [facility] Leukocyte esterase, ur Negative Negative [facility] Urine (Urine) 05/04/2025 1:1 9 PM EDT 05/04/2025 1:44 PM EDT Alberto Vasques MD LAB URINE ORDERABLES Final Resul t Performing Organization Address [facility] Co de Phone Number [address] [address] * (ABNORMAL) Urine sediment (05/04/2025 1:19 PM EDT) WBC 0-4(A) NONE SEEN /hpf [facility] RBC 3-5(A) NONE SEEN /hpf [facility] URINE EPITHELIAL 0-4(A) NONE SEEN [facility] MUCUS NONE SEEN NONE SEEN /hpf [facility] BACTERIA Trace(A) NONE SEEN /hpf [facility] 05/04/2025 1:19 PM EDT 05/04/2025 1:44 PM EDT us Alberto Vasques MD LAB URINE ORDERABLES Final Resul t [facility] [address] [place] [address] from Last 3 Months Insurance WELLSENSE NON NSPG PCP SILVER CLARITY CONNECTORCARE WELLSENSE NON NSPG PCP SILVER CLARITY CONNECTORCARE WELLSENSE NON NSPG PCP SILVER CLARITY CONNECTORCARE [place] NON NSPG PCP SILVER CLARITY CONNECTORCARE [place] NON NSPG PCP SILVER CLARITY CONNECTORCARE [place]ENSE NON NSPG PCP SILVER CLARITY CONNECTORCARE BROW[place]ENSE NON NSPG PCP SILVER CLARITY CONNECTORCARE BR[place]ENSE NON NSPG PCP SILVER CLARITY CONNECTORCARE WELLSENSE NON NSPG PCP SILVER CLARITY CONNECTORCARE Advance Directives For more information, please contact: [phone] (9AM - 5PM [facility], Monday-Monday) * Full Code (Latest Code Status on File) Date Activated Date Inactivated Comments 08/19/2022 9:51 AM Question Answer Comments Code Status Confirmed With: Patient Care Teams School Adjustment Counselor Relationship Specialty Start Date End Date Clara Shearer MD [address] [place] [address] PCP - General Family Medicine 02/16/22 Additional Source Comments The information contained in this document represents components of the legal health record. It is not the complete legal health record.[facility]
--- OUTSIDE RECORDS SUMMARY | 2025-06-18 16:26 | XMS_ITS | Encounter Summary ---
Author Organization [facility] Address [address] [place] [address] Phone Care Team Providers Care Business Asst Name Role Phone Unknown, Unknown Primary Care Provider Clara Thompson MD Primary Care Provider [phone] Clara Shearer MD Primary Care Provider [phone] Encounter Details Date Type Department Care Team (Late st Contact Info) Description 11/09/2020 Procedure Pass [facility], Ct Scan - [facility] [address] [place] [address] Social History Tobacco Use Types Packs/Day Years [...] 8:03 PM EDT Marysol Hurt RN * [place] Suicide Severity Rating Scale (Screener/Recent Self-Report) Question [...] Info) Description 07/04/2025 10:45 AM EST Follow-Up [facility] Debone Supervisor Oncology [address] [facility] [address] [place] [address] Jaja Huber MD [address] [id number] [place] [address] [email or web address] documented as of this encounter Visit Diagnoses Not on filedocumented in this encounter Additional Health Concerns Infection Onset Date Last Indicated Resolved Time CoV-Risk 06/19/2023 06/19/2023 06/30/2023 1:24 AM EST CoV-Risk 02/22/2025 02/22/2025 03/05/2025 1:21 AM EDT documented as of this encounter Care Teams Business Asst Relationship Specialty Start Date End Date Unknown, Unknown, MD PCP - General 02/24/18 11/09/20 Clara Shearer MD [address] [place] [address] PCP - General Family Medicine 11/10/20 02/15/22 Clara Shearer MD [address] [place] [address] PCP - General Family Medicine 02/16/22 documented as of this encounter Additional Source Comments The information contained in this document represents components of the legal health record. It is not the complete legal health record.[facility]
--- OUTSIDE RECORDS SUMMARY | 2025-06-18 16:26 | XMS_ITS | Encounter Summary ---
Author Organization [facility] Address [address] [place] [address] Phone Care Team Providers Care Executor Of Estate Name Role Phone Clara Shearer MD Primary Care Provider [phone] Encounter Details Date Type Department Care Team (Late st Contact Info) Description 06/19/2023 Procedure Pass [facility], Ct Scan - [address] [address] Social History Tobacco Use Types Packs/Day Years [...] 06/19/2023 8:16 AM Wandy Shelby RN * [place] Suicide Severity Rating Scale (Screener/Recent Self-Report) Question [...] Info) Description 07/04/2025 10:45 AM EST Follow-Up [facility] Radiopharmacist Oncology [address] [place] [address], [address] [place] [address] Jaja Huber MD [address] [place] [address] [email or web address] documented as of this encounter Visit Diagnoses Not on filedocumented in this encounter Additional Health Concerns Infection Onset Date Last Indicated Resolved Time CoV-Risk 06/19/2023 06/19/2023 06/30/2023 1:24 AM EST CoV-Risk 02/22/2025 02/22/2025 03/05/2025 1:21 AM EDT documented as of this encounter Care Teams Executor Of Estate Relationship Specialty Start Date End Date Clara Shearer MD [address] [place] [phone] PCP - General Family Medicine 02/16/22 documented as of this encounter Additional Source Comments The information contained in this document represents components of the legal health record. It is not the complete legal health record.[facility]
--- OUTSIDE RECORDS SUMMARY | 2025-06-18 16:26 | XMS_ITS | Encounter Summary ---
Author Organization [employer] Address [address] [facility] 7t [place] [address] Care Team Providers Care Blog Writer Name Role Phone Clara Shearer MD Primary Care Provider [phone] Reason for Visit * Reason Onset Date Comments Nurse Triage 06/05/2023 Encounter Details Date Type Department Care Team ([facility] st Contact Info) Description 06/05/2023 Telephone [facility] [address] [place], [place] [phone] Clara Shearer MD [address] [place], [place] [phone] Nurse Triage Social History Tobacco Use Types [...] 06/05/2023 4:47 PM EST Triage call with [employer] [place] [id number] Pt reports headaches which have started 2 [...] to try this. Pt will come to [facility] tomorrow 06/06/23 to be seen [...] Nausea as well Please contact pt at [phone] Chilean Speaker. documented in this encounter Plan of Treatment Upcoming Encounters Date Type Department Care Team (Late st Contact Info) Description 07/22/2025 2:15 PM EST Office Visit [facility] [address] [place] [address] Clara Shearer MD [address] [place] [address] 08/20/2025 2:15 PM EST Office Visit [facility] [address] [place] [address] Katt Espinoza [address] [place] [address] documented as of this encounter Visit Diagnoses Not on filedocumented in this encounter Additional Health Concerns Assessment Noted Time PHQ-9 Depression Total Score: 5 03/07/20 23 3:27 PM EDT documented as of this encounter Care Teams Blog Writer Relationship Specialty Start Date End Date Clara hSearer MD [address] [place] [address] PCP - General Family Medicine 07/24/18 documented as of this encounter
--- OUTSIDE RECORDS SUMMARY | 2025-06-18 16:26 | XMS_ITS | Encounter Summary ---
Author Organization [employer] Address [address] [facility] 7[address] [place] [address] Care Team Providers Care Surveyor Name Role Phone Clara Shearer MD Primary Care Provider [phone] Encounter Details Date Type Department Care Team ([facility] st Contact Info) Description 06/18/2025 Orders Only [facility] [address] [place], [place] [phone] Clara Shearer MD [address] [place], [place] [phone] Transaminitis (Primary Dx) Social History Tobacco Use Types [...] Description 07/22/2025 2:15 PM EST Office Visit [facility] [address] [place] [address] Clara Shearer MD [address] [place] [address] 08/20/2025 2:15 PM EST Office Visit [facility] ADULT [facility] [address] [place] [address] Olga Katt [address] [place] [address] Scheduled Orders Name Type Priority Associated Diagnoses Orde r Schedule Hepatic Function Panel Lab Routine Transaminitis Expected: 07/09/2025 (Approximate), Expires: 10/07/2025 documented as of this encounter Visit Diagnoses Diagnosis Transaminitis- Primary Nonspecific elevation of levels of transaminase or lactic acid dehydrogenase (LDH) documented in this encounter Additional Health Concerns Assessment Noted Time PHQ-9 Depression Total Score: 0 06/10/20 25 9:47 AM EST documented as of this encounter Care Teams Surveyor Relationship Specialty Start Date End Date Clara Shearer MD [address] [place] [address] PCP - General Family Medicine 1/1/19 documented as of this encounter
--- OUTSIDE RECORDS SUMMARY | 2025-06-18 16:26 | XMS_ITS | Encounter Summary ---
Author Organization [employer] Address [address] [facility] 7t [place] [address] Care Team Providers Care Court Attendant Name Role Phone Clara Shearer MD Primary Care Provider [phone] Reason for Visit * Reason Onset Date Comments rs prophy 05/22/2023 Encounter Details Date Type Department Care Team ([facility] st Contact Info) Description 05/22/2023 Telephone [facility] [address] [place], [place] [phone] Olga, Katt [address] [place] [address] rs prophy Social History Tobacco Use Types [...] Description 07/22/2025 2:15 PM EST Office Visit [facility] [address] [place] [address] Clara Shearer MD [address] [place] [address] 08/20/2025 2:15 PM EST Office Visit [facility] [address] [place] [address] Katt Espinoza [address] [place] [address] documented as of this encounter Visit Diagnoses Not on filedocumented in this encounter Additional Health Concerns Assessment Noted Time PHQ-9 Depression Total Score: 5 03/07/20 23 3:27 PM EDT documented as of this encounter Care Teams Court Attendant Relationship Specialty Start Date End Date Clara Shearer MD [address] [place] [address] PCP - General Family Medicine 07/24/18 documented as of this encounter
--- OUTSIDE RECORDS SUMMARY | 2025-06-18 16:26 | XMS_ITS | Encounter Summary ---
Author Organization [employer] Address [address] [facility] 7t [place] [address] Care Team Providers Care Braker Passenger Train Name Role Phone Clara Shearer MD Primary Care Provider [phone] Reason for Visit * Reason Onset Date Comments Results 06/18/2025 Encounter Details Date Type Department Care Team ([facility] st Contact Info) Description 06/18/2025 Results Follow-Up [facility] [address] [place], [place] [phone] Clara Shearer MD [address] [place] [address] Hepatic Function Panel, Hepatitis C Antibody with Reflex to HCV, RNA, Quantitative, Real-Time PCR, Hepatitis B surface antigen, EIA Social History Tobacco Use Types Packs/Day Years [...] Telephone Encounter - Sabine Chang RN - 06/18/2025 2:44 PM EST TC placed to the pt and spoke with pt daughter Earline in regard to informing of pt blood work result showing improving liver enzymes and no sign of infectious hepatitis. Earline advised that the pt current symptoms are most likely related to recent surgery or supplements. Earline will have the pt have repeat Hepatic Function Panel drawn in 4-5 weeks time. ----- Message from Clara Shearer MD sent at 06/18/2025 1:54 PM EST ----- Please inform patient that her lab result shows improving liver enzyme. No infectious hepatitis. Likely related to recent surgery and/or her supplements. Please ask her to check her lab again in few weeks. Thank you. ----- Message ----- From: Interface, Lab Results In Sent: 06/18/2025 9:41 AM EST To: Clara Shearer MD * Telephone Encounter - Nabil Coughlin - 06/18/2025 2:36 PM EST Tc from pt returning call back regarding prior message. Contact pt at [phone] * Telephone Encounter - Sabine Chang RN - 06/18/2025 2:00 PM EST TC placed to the pt and a VM was left to call back the office in regard to message below from PCP ----- Message from Clara Shearer MD sent at 06/18/2025 1:54 PM EST ----- Please inform patient that her lab result shows improving liver enzyme. No infectious hepatitis. Likely related to recent surgery and/or her supplements. Please ask her to check her lab again in few weeks. Thank you. ----- Message ----- From: Interface, Lab Results In Sent: 06/18/2025 9:41 AM EST To: Clara Shearer MD documented in this encounter Plan of Treatment Upcoming Encounters Date Type Department Care Team (Late st Contact Info) Description 07/22/2025 2:15 PM EST Office Visit [facility] [address] [place] [address] Clara Shearer MD [address] [place] [address] 08/20/2025 2:15 PM EST Office Visit [facility] [address] [place] [address] Olga, Katt [address] [place] [address] documented as of this encounter Visit Diagnoses Not on filedocumented in this encounter Additional Health Concerns Assessment Noted Time PHQ-9 Depression Total Score: 0 06/10/20 25 9:47 AM EST documented as of this encounter Care Teams Braker Passenger Train Relationship Specialty Start Date End Date Clara Shearer MD [address] [place] [address] PCP - General Family Medicine 07/24/18 documented as of this encounter
--- OUTSIDE RECORDS SUMMARY | 2025-06-18 16:26 | XMS_ITS | Encounter Summary ---
Author Organization [employer] Address 75 [facility] 7t [place] [address] Care Team Providers Care Director Clinical Pharmacology Name Role Phone Clara Shearer MD Primary Care Provider [phone] Reason for Referral * Consultation (Routine) - Authorized Specialty Diagnoses / Procedures Referred By Ron brewer Referred To Contact Orthopaedic Surgery Diagnoses Chronic right shoulder pain Clara Shearer MD [address] [place] [address] Phone: tel: fax: [facility] [address] [place] [address] Dr [address] [place] [address] Phone: tel: Referral ID Status Reason Start Date Expiration Date Visits Requested Visits Authorized [id number] Authorized Specialty Services Required 5 06/11/2026 1 1 Encounter Details Date Type Department Care Team (Late st Contact Info) Description 06/11/2025 Orders Only [facility] [address] [place] [address] Clara Shearer MD [address] [place] [address] Chronic right shoulder pain (Primary [...] Description 07/22/2025 2:15 PM EST Office Visit [facility] [address] [place] [address] Clara Shearer MD [address] [place] [address] 08/20/2025 2:15 PM EST Office Visit [facility] ADULT DENTAL [address] [place] [address] Katt Espinoza [address] [place] [address] Scheduled Referrals Name Type Priority Associated Diagnoses [...] documented as of this encounter Care Teams Director Clinical Pharmacology Relationship Specialty Start Date End Date Clara Shearer MD [address] [place] [address] PCP - General Family Medicine 07/24/18 documented as of this encounter
--- OUTSIDE RECORDS SUMMARY | 2025-06-18 16:26 | XMS_ITS | Encounter Summary ---
Author Organization [facility] Address [address] [place] [address] Phone Care Team Providers Care Placement Assistant Name Role Phone Clara Shearer MD Primary Care Provider [phone] Encounter Details Date Type Department Care Team (Late st Contact Info) Description 12/04/2022 Procedure Pass [facility], Ct Scan - [address] [address] Social History Tobacco Use Types Packs/Day Years [...] AM EST Follow-Up [facility] Borderer Oncology [address] [place], [place] [address], [address] [place] [address] Jaja Huber MD [address] [place] [address], [facility] [id number] [email or web address] documented as of this encounter Visit Diagnoses Not on filedocumented in this encounter Additional Health Concerns Infection Onset Date Last Indicated Resolved Time CoV-Risk 06/19/2023 06/19/2023 06/30/2023 1:24 AM EST CoV-Risk 02/22/2025 02/22/2025 03/05/2025 1:21 AM EDT documented as of this encounter Care Teams Placement Assistant Relationship Specialty Start Date End Date Clara Shearer MD [address] [place] [address] PCP - General Family Medicine 02/16/22 documented as of this encounter Additional Source Comments The information contained in this document represents components of the legal health record. It is not the complete legal health record.[facility]
--- OUTSIDE RECORDS SUMMARY | 2025-06-18 16:26 | XMS_ITS | Encounter Summary ---
Author Organization [facility] Address [address] [facility] [address] [place] [address] Phone Care Team Providers Care Sueding Machine Operator Name Role Phone Clara Shearer MD Primary Care Provider [phone] Encounter Details Date Type Department Care Team (Late Contact Info) Description 08/19/2022 Procedure Pass [place] Admitting Dept - Virtual Department [address] [place] [address] Social History Tobacco Use Types Packs/Day Years [...] Info) Description 07/04/2025 10:45 AM EST Follow-Up [facility] Manager Enterprise Content Management Oncology [address] [place], [place] [address], [address] [place] [address] Jaja Huber MD [address] [place] [address], [facility] [place] [address] [email or web address] documented as of this encounter Visit Diagnoses Not on filedocumented in this encounter Additional Health Concerns Infection Onset Date Last Indicated Resolved Time CoV-Risk 06/19/2023 06/19/2023 06/30/2023 1:24 AM EST CoV-Risk 02/22/2025 02/22/2025 03/05/2025 1:21 AM EDT documented as of this encounter Care Teams Sueding Machine Operator Relationship Specialty Start Date End Date Clara Shearer MD [address] [place] [address] PCP - General Family Medicine 02/16/22 documented as of this encounter Additional Source Comments The information contained in this document represents components of the legal health record. It is not the complete legal health record.[facility]
--- OUTSIDE RECORDS SUMMARY | 2025-06-18 16:26 | XMS_ITS | Clinical Summary ---
Author Organization [facility] Address [address] [place] [address] Care Team Providers Care Dairy Scientist Name Role Phone Manfred Clara Primary Care Provider [phone] Allergies No known active allergies Medications aspirin [...] complete this topic Procedures * Due to [place] state law, this organization might not be sharing negative HIV tests. Procedure Name Priority Date/Time Associated Diagnosis Comments PAP Routine 12/17/2020 2:37 PM EDT Hematometra from Last 3 Months or Most Recently Relevant to Health Maintenance Results * Due to [place] state law, this organization might not be sharing negative HIV tests. * Pap (12/17/2020 2:37 PM EDT) Specimen Adequacy Satisfactory for evaluation [facility] MANUAL 1 5:02 PM EDT [facility] Pathologist Cytology Interpretation Negative for intraepithelial lesion or malignancy. [facility] MANUAL 1 5:02 PM EDT [facility] at 1702 EDT Comment:This is the result o f a morphological screening test with an inherent possibility of a false negative interpretation. Treasury Analyst Statement This Pap test was examined by the ThinPrep Imaging System, [employer], [place], [place]. This Pap test was examined in accordance with the [facility] Cytopathology Laboratory written policy, which incorporates all CLIA mandates. Screening guidelines can be found in Am J Clin Pathol 2012;137:516-542. We endorse the practice guidelines developed by ASCCP and published in the Journal Lower Genital Tract Disease 17(5):S1-S27 (2013). [facility] MANUAL 1 5:02 PM EDT [facility]TimeLynesMI [employer] [facility] Clinical History Hematometra [facility] MANUAL 1 5:02 PM EDT [facility] weendy [facility] Resulting Agency Case was signed out at [facility], Department of Pathology, [employer] 3 CLIA [id number] [facility] MANUAL 1 5:02 PM EDT [facility] weendy [facility] Report Header Gynecologic Cytology Report Case: [id number] Authorizing Provider: Susan Girard Collected: 12/17/2020 1437 Ordering Location: [facility] Received: 12/17/2020 1626 [facility] Obstetrics and Gynecology First Screen: Sissy Dooley Specimen: Screening ThinPrep Pap, Cervix/Endocervix 5:02 PM EDT [facility] Brushing Cervix uteri structure / Unknown Non-Blood Collection / Unknown 12/17/2020 2:37 PM EDT 12/17/2020 4:26 PM EDT us Susan Girard ASSET ANALYST LAB PATHOLOGY/CYTOLOGY ORDERABL ES Final Result [facility] [address] [place] [address], from Last 3 Months or Most Recently Relevant to Health Maintenance Insurance [facility] Care Teams Dairy Scientist Relationship Specialty Start Date End Date Clara Shearer [address] [place] [address] PCP - General Family Medicine 05/26/20
--- OUTSIDE RECORDS SUMMARY | 2025-06-18 16:26 | XMS_ITS | Encounter Summary ---
Author Organization [facility] Address [address] [place] [address] Phone Care Team Providers Care Fishing Guide Name Role Phone Clara Shearer MD Primary Care Provider [phone] Encounter Details Date Type Department Care Team (Late st Contact Info) Description 06/19/2023 Procedure Pass [facility], Ct Scan - [address] [address] Social History Tobacco Use Types Packs/Day Years [...] 06/19/2023 8:16 AM Wandy Shelby RN * [place] Suicide Severity Rating Scale (Screener/Recent Self-Report) Question [...] Info) Description 07/04/2025 10:45 AM EST Follow-Up [facility] Optical Effects Camera Operator Oncology [address] [place] [address], [address] [place] [address] Jaja Huber MD [address] [place] [address] [email or web address] documented as of this encounter Visit Diagnoses Not on filedocumented in this encounter Additional Health Concerns Infection Onset Date Last Indicated Resolved Time CoV-Risk 06/19/2023 06/19/2023 06/30/2023 1:24 AM EST CoV-Risk 02/22/2025 02/22/2025 03/05/2025 1:21 AM EDT documented as of this encounter Care Teams Fishing Guide Relationship Specialty Start Date End Date Clara Shearer MD [address] [place] [address] PCP - General Family Medicine 02/16/22 documented as of this encounter Additional Source Comments The information contained in this document represents components of the legal health record. It is not the complete legal health record.[facility]
--- OUTSIDE RECORDS SUMMARY | 2025-06-18 16:26 | XMS_ITS | Encounter Summary ---
Author Organization [employer] Address [address] [place] [address] 7t [place] [address] Care Team Providers Care Director Of Career Services Name Role Phone Clara Shearer MD Primary Care Provider Reason for Referral * Imaging (Routine) - Closed Specialty Diagnoses / Procedures Referred By Contac t Referred To Contact Radiology Diagnoses Metabolic dysfunction-associated steatotic liver disease (MASLD) Procedures US Abdomen Comp w elastography Clara Shearer MD [address] [place] [address] Phone: tel: fax: [address] [address] Phone: tel: fax: Referral ID Status Reason Start Date Expiration Date Visits Re quested Visits Authorized [id number] Closed 11/17/2023 11/16/2024 1 1 Encounter Details Date Type Department Care Team (Late st Contact Info) Description 11/17/2023 Orders Only [facility] [address] [place], [place] [phone] Clara Shearer MD [address] [place], [place] [phone] Metabolic dysfunction-associated steatotic liver disease (MASLD) (Primary [...] Description 07/22/2025 2:15 PM EST Office Visit [facility] [address] [place] [address] Clara Shearer MD [address] [place] [address] 08/20/2025 2:15 PM EST Office Visit [facility] ADULT DENTAL [address] [place] [address] Katt Espinoza [address] [place] [address] documented as of this encounter Procedures Procedure Name Priority Date/Time Associated Diagnosis Comments US ABDOMEN COMPLETE WITH ELASTOGRAPHY Routine 12/05/2023 9:26 AM EDT Metabolic dysfunction-associa ebony steatotic liver disease (MASLD) documented in this encounter Results * US Abdomen Comp w elastography (12/05/2023 9:26 AM EDT) Anatomical Region Laterality Modality Abdomen Ultrasound 12/05/2023 9:26 AM EDT Narrative 12/12/2023 9:41 AM EDT [address] [address] Ultrasound Report Signed Patient: Thalia Martell MR#: [id number] 2088 : 1975 Acct:[id number] Age/Sex: 48 / F ADM Date: 12/05/23 Loc: HO.US Attending Dr: Clara Shearer MD Ordering Physician: Clara Shearer MD Date of Service: 12/05/23 Procedure(s): US abdomen comp w elastography Accession Number(s): [id number] cc: Clara Shearer MD EXAMINATION: US COMPLETE [...] MD in OV> 12/12/2337 DD/ 5 TD/TT: Teller Manager: SS Procedure Note Donotuseinterpreter, Image - 12/12/2023 [place] [address] Ultrasound Report Signed Patient: Yoel Martell#: [id number] 2088 : 1975Acct:[id number] Age/Sex: 48 / FADM Date: 12/05/23 Loc: HO.US Attending Dr: Clara Shearer MD Ordering Physician: Clara Shearer MD Date of Service: 12/05/23 Procedure(s): US abdomen comp w elastography Accession Number(s): [id number] cc: Clara Shearer MD EXAMINATION: US COMPLETE [...] MD in OV> 12/12/2337 DD/ 5 TD/TT: Teller Manager: SS us Clara Shearer MD IMG US PROCEDURES Final Result documented in this encounter Visit Diagnoses Diagnosis Metabolic dysfunction-associated steatotic liver disease (MASLD)- Primary documented in this encounter Additional Health Concerns Assessment Noted Time PHQ-9 Depression Total Score: 0 10/17/19 24 3:45 PM EDT documented as of this encounter Care Teams Director Of Career Services Relationship Specialty Start Date End Date Clara Shearer MD [address] [place] [address] PCP - General Family Medicine 07/24/18 documented as of this encounter
--- OUTSIDE RECORDS SUMMARY | 2025-06-18 16:26 | XMS_ITS | Encounter Summary ---
Author Organization [employer] Address [address] [place] [address] 7 [place] [address] Care Team Providers Care Vp Emerging Media Name Role Phone Clara Shearer MD Primary Care Provider [phone] Encounter Details Date Type Department Care Team (Late st Contact Info) Description 07/20/2022 Abstract [facility] [address] [place] [address] Clara Shearer MD [address] [place] [address] Social History Tobacco Use Types Packs/Day Years [...] Description 07/22/2025 2:15 PM EST Office Visit [facility] [address] [place] [address] Clara Shearer MD [address] [place] [address] 08/20/2025 2:15 PM EST Office Visit [facility] [address] [place] [address] Katt Espinoza [address] [place] [address] documented as of this encounter Visit Diagnoses Not on filedocumented in this encounter Care Teams Vp Emerging Media Relationship Specialty Start Date End Date Clara Shearer MD [address] [place] [address] PCP - General Family Medicine 07/24/18 documented as of this encounter
--- OUTSIDE RECORDS SUMMARY | 2025-06-18 16:26 | XMS_ITS | Encounter Summary ---
Author Organization [employer] Address [address] [facility] [address] [address] Care Team Providers Care Clinical Trials Manager Name Role Phone Clara Shearer MD Primary Care Provider [phone] Reason for Referral * Consultation (Routine) - Closed Specialty Diagnoses / Procedures Referred By Contac t Referred To Contact Physical Therapy Diagnoses Right hip pain Chronic right-sided low back pain, unspecified whether sciatica present Clara Shearer MD [address] [place] [address] Phone: tel: fax: AT Physical Therapy - [address] [address] Phone: tel: fax: Referral ID Status Reason Start Date Expiration Date V isits Requested Visits Authorized [id number] Closed Specialty Services Required 11/14/2023 11/13/2024 1 1 Encounter Details Date Type Department Care Team (Late st Contact Info) Description 11/14/2023 Orders Only [facility] [address] [place], [place] [phone] Clara Shearer MD [address] [place], [place] [phone] Right hip pain (Primary Dx); Chronic right-sided [...] Description 07/22/2025 2:15 PM EST Office Visit [facility] [address] [place] [address] Clara Shearer MD [address] [place] [address] 08/20/2025 2:15 PM EST Office Visit [facility] ADULT D[facility] [address] [place] [address] Katt Espinoza [address] [place] [address] Scheduled Referrals Name Type Priority Associated Diagnoses [...] PM EDT Narrative 11/25/2023 8:18 AM EDT [address] [address] XRay Report Signed Patient: Thalia Martell MR#: [id number] 2088 : 1975 Acct:[id number] Age/Sex: 48 / F ADM Date: 11/16/23 Loc: HO.XRAY Attending Dr: Clara Shearer MD Ordering Physician: Clara Shearer MD Date of Service: 11/16/23 Procedure(s): XR thoracic spine 2V Accession Number(s): [id number] cc: Clara Shearer MD EXAMINATION: XR THORACOLUMBAR [...] MD in OV> 11/25/23814 DD/ 1549 TD/TT: Product Support Specialist: QUINN Procedure Note Donotidaliater, Image - 11/25/[address] [address] XRay Report Signed Patient: Yoel Martell#: [id number] 2088 : 1975Acct:[id number] Age/Sex: 48 / FADM Date: 11/16/23 Loc: HO.XRAY Attending Dr: Clara Shearer MD Ordering Physician: Clara Shearer MD Date of Service: 11/16/23 Procedure(s): XR thoracic spine 2V Accession Number(s): [id number] cc: Clara Shearer MD EXAMINATION: XR THORACOLUMBAR [...] signed by Easton Campos MD inOV> 11/25/23 08 DD/ 1549 TD/TT: Product Support Specialist: QUINN Clara Seharer MD IMG XR PROCEDURES Edited Result - [...] as of this encounter Care Teams Clinical Trials Manager Relationship Specialty Start Date End Date Clara Shearer MD [address] [place] [address] PCP - General Family Medicine 07/24/18 documented as of this encounter
--- OUTSIDE RECORDS SUMMARY | 2025-06-18 16:26 | XMS_ITS | Encounter Summary ---
Author Organization [facility] Address [address] [place] [address] Phone Care Team Providers Care Facility Planner Name Role Phone Clara Shearer MD Primary Care Provider [phone] Encounter Details Date Type Department Care Team (Late st Contact Info) Description 12/04/2022 Procedure Pass [facility], Ct Scan - [address] [address] Social History Tobacco Use Types Packs/Day Years [...] Info) Description 07/04/2025 10:45 AM EST Follow-Up [facility] Development Architect Oncology [address] [place], [place] [address], [address] [place] [address] Jaja Huber MD [address] [place] [address], [facility] [id number] [email or web address] documented as of this encounter Visit Diagnoses Not on filedocumented in this encounter Additional Health Concerns Infection Onset Date Last Indicated Resolved Time CoV-Risk 06/19/2023 06/19/2023 06/30/2023 1:24 AM EST CoV-Risk 02/22/2025 02/22/2025 03/05/2025 1:21 AM EDT documented as of this encounter Care Teams Facility Planner Relationship Specialty Start Date End Date Clara Shearer MD [address] [place] [address] PCP - General Family Medicine 02/16/22 documented as of this encounter Additional Source Comments The information contained in this document represents components of the legal health record. It is not the complete legal health record.[facility]
--- OUTSIDE RECORDS SUMMARY | 2025-06-18 16:26 | XMS_ITS | Encounter Summary ---
Author Organization [employer] Address [address] [facility] 7t [place] [address] Care Team Providers Care Ditch Repairer Name Role Phone Clara Shearer MD Primary Care Provider [phone] Reason for Visit * Reason Comments Med Refill Encounter Details Date Type Department Care Team ([facility] st Contact Info) Description 05/16/2025 Refill [facility] [address] [place], [place] [phone] Clara Shearer MD [address] [place], [place] [phone] Social History Tobacco Use Types Packs/Day Years [...] Description 07/22/2025 2:15 PM EST Office Visit [facility] [address] [place] [address] Clara Shearer MD [address] [place] [address] 08/20/2025 2:15 PM EST Office Visit [facility] ADULT DENTAL [address] [place] [address] Olga, Katt [address] [place] [address] documented as of this encounter Visit Diagnoses Not on filedocumented in this encounter Additional Health Concerns Assessment Noted Time PHQ-9 Depression Total Score: 17 025 1:38 PM EDT documented as of this encounter Care Teams Ditch Repairer Relationship Specialty Start Date End Date Clara Shearer MD [address] [place] [address] PCP - General Family Medicine 07/24/18 documented as of this encounter
--- OUTSIDE RECORDS SUMMARY | 2025-06-18 16:26 | XMS_ITS | Encounter Summary ---
Author Organization [employer] Address [address] [place] [address] [address] [address] Care Team Providers Care Journeyman Powerhouse Operator Name Role Phone Clara Shearer MD Primary Care Provider [phone] Reason for Visit * Reason Onset Date Comments Letter for School/Work 08/02/2022 Encounter Details Date Type Department Care Team ([facility] st Contact Info) Description 08/02/[address] [facility] MEDICINE [address] [place] [address] Clara Shearer MD [address] [place] [address] Letter for School/Work Social History Tobacco Use [...] a upcoming procedure on 08-19-22. Fax number [phone] Any question please contact Ambreen at [phone] ext [phone] * Telephone Encounter - Khang Garcia - 08/04/2022 2:41 PM EST [place]c [place] [facility] [place] a [place] regarding message below Please contact pankaj at [phone] * Telephone Encounter - Ronda Mahan LPN - 08/04/2022 2:41 PM EST Kelly, this should be done upstairs we do not do letters regarding medication stop or start. Please discuss with Dr. Shearer on what she wants and you can call [facility] to fax that order/letteror if they will take verbal orders from you that is even easier. * Telephone Encounter - Kelly Campuzano RN - 08/02/2022 3:33 PM EST Pt having procedure (dilation and curettage with hysteroscopy to place mirena) at [facility] 08/19/22. They are requesting a letter stating when pt should stop and restart coumadin (how many days before and after). * Telephone Encounter - Khang Garcia - 08/02/2022 2:48 PM EST Tc from claudia with [facility] requesting a letter stating when pt will be stopping medication ( warfarin 2 mg ) prior to OP Please contact claudia at [phone] ext [phone] documented in this encounter Plan of Treatment Upcoming Encounters Date Type Department Care Team (Late st Contact Info) Description 07/22/2025 2:15 PM EST Office Visit [facility] MED[facility]INE [address] [place] [id number] Clara Shearer MD [address] [place], [place] [id number] 08/20/2025 2:15 PM EST Office Visit [facility] ADULT DENTAL [address] [place], [place] [phone] Jignesh Espinozaaris [address], [place] [phone] documented as of this encounter Visit Diagnoses Not on filedocumented in this encounter Care Teams Journeyman Powerhouse Operator Relationship Specialty Start Date End Date Clara Shearer MD [address] [place] [address] PCP - General Family Medicine 07/24/18 documented as of this encounter
--- OUTSIDE RECORDS SUMMARY | 2025-06-18 16:26 | XMS_ITS | Encounter Summary ---
Author Organization [facility] Address [address] [place] [address] Phone Care Team Providers Care Gallery Manager Name Role Phone Unknown, Unknown Primary Care Provider Clara Thompson MD Primary Care Provider [phone] Clara Shearer MD Primary Care Provider [phone] Encounter Details Date Type Department Care Team (Late st Contact Info) Description 02/24/2018 Procedure [facility], Ct Scan - [address] [address] Social History Tobacco Use Types Packs/Day Years [...] Info) Description 07/04/2025 10:45 AM EST Follow-Up [facility] Chronic Disease Epidemiologist Oncology [address] [place], [place] [address], [address] [place] [address] Jaja Huber MD [address] [facility], [facility] [place] [address] [email or web address] documented as of this encounter Visit Diagnoses Not on filedocumented in this encounter Additional Health Concerns Infection Onset Date Last Indicated Resolved Time CoV-Risk 06/19/2023 06/19/2023 06/30/2023 1:24 AM EST CoV-Risk 02/22/2025 02/22/2025 03/05/2025 1:21 AM EDT documented as of this encounter Care Teams Gallery Manager Relationship Specialty Start Date End Date Unknown, Unknown, MD PCP - General 02/24/18 11/09/20 Clara Shearer MD [address] [place] [address] PCP - General Family Medicine 11/10/20 02/15/22 Clara Shearer MD [address] [place] [address] PCP - General Family Medicine 02/16/22 documented as of this encounter Additional Source Comments The information contained in this document represents components of the legal health record. It is not the complete legal health record.[facility]
--- OUTSIDE RECORDS SUMMARY | 2025-06-18 16:27 | XMS_ITS | Clinical Summary ---
Author Organization [employer] Address [address] [facility] [address] [place] [address] Care Team Providers Care Research Microbiologist Name Role Phone Clara Shearer MD Primary Care Provider [phone] Allergies No known active allergies Medications * [...] - most recent Echocardiogram on 05/05/2025 at [facility] [place]: Left ventricular systolic function is at the lower limits of normal. LV ejection fraction with 50 to 55%. Normal right ventricular systolic function. Mechanical prosthesis in the aortic valve. Mild mitral stenosis. - [place] in [place] 2023 [place] [facility] [place] Left ventricular systolic function was normal. EF 57%. Mechanical prosthetic aortic valve, which is functioning normally. Moderate mitral valve stenosis - following with chemical laboratory tester, Dr. Haynes [facility] [place] Monitor with periodic echo. 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 EF 57%. Mechanical prosthetic aortic valve, which is functioning normally. Moderate mitral valve stenosis - following with chemical laboratory tester, Dr. Haynes [facility] [place] Monitor with periodic echo. Localized gingival recession 10/31/2024 Chronic headache 05/30/2024 Assessment & Plan (04/13/2025 7:48 PM EDT): - Following with neurologist, [facility] [place], last seen in January 2025 - pt [...] has sleep study which was ordered by chemical laboratory tester. Patient was referred to sleep medicine specialist [...] with minimal improvement - evaluated by [facility] [place] [place] in March 2024. [...] with minimal improvement - evaluated by [facility] [place] in March 2024. [...] with minimal improvement - evaluated by [facility] [place] in March 2024. MRI was ordered and patient was referred to [facility] for injection treatment. - patient has received 3 injection treatments with no improvement - patient was advised to contact [facility] [place] orth[place]ist to inquire MRI [...] in November 2022 - following with [facility], last seen in May 2024 - [...] in November 2022 - following with [facility], last seen in May 2024 - [...] in November 2022 - following with [facility], last seen in [...] on warfarin - previously prescribed metoprolol by chemical laboratory tester; no longer on the medication due to hypotension / dizziness - continue following with chemical laboratory tester, [facility] [place] Haynes - last TTE on 09/19/2023: Left ventricular systolic function was normal. EF 57%. Mechanical prosthetic aortic valve, which is functioning normally. Moderate mitral valve stenosis - continue current treatment plan per cardiology Assessment & Plan (04/13/2025 7:36 PM EDT): - s/p AVR in Feb 2010 - on warfarin - previously prescribed metoprolol by chemical laboratory tester; no longer on the medication due to hypotension / dizziness - continue following with chemical laboratory tester, [facility] [place] Haynes - last TTE on 09/19/2023: Left ventricular systolic function was normal. EF 57%. Mechanical prosthetic aortic valve, which is functioning normally. Moderate mitral valve stenosis - continue current treatment plan per cardiology Assessment & Plan (12/30/2024 9:32 AM EDT): - s/p AVR in Feb 2010 - on warfarin - previously prescribed metoprolol by chemical laboratory tester; no longer on the medication due to hypotension / dizziness - continue following with chemical laboratory tester, [facility] [place] Haynes - last TTE in January 2022, mild mitral valve stenosis - continue current treatment plan per cardiology Assessment & Plan (05/30/2024 12:22 PM EST): - s/p AVR in Feb 2010 - on warfarin - previously prescribed metoprolol by chemical laboratory tester; no longer on the medication due to hypotension / dizziness - continue following with chemical laboratory tester [facility] [place] - last TTE in January 2022, mild mitral valve stenosis - continue current treatment plan per cardiology Assessment & Plan (03/19/2023 1:47 PM EDT): - s/p AVR in Feb 2010 - on warfarin - previously prescribed metoprolol by chemical laboratory tester; no longer on the medication due to hypotension / dizziness - continue following with chemical laboratory tester, [facility] [place] - last TTE in January 2022, mild mitral valve stenosis - continue current treatment plan per cardiology Assessment & Plan (11/22/2022 11:35 AM EDT): - s/p AVR in Feb 2010 - on warfarin - previously prescribed metoprolol by chemical laboratory tester; no longer on the medication due to hypotension / dizziness - continue following with chemical laboratory tester, [facility] [place]nes - last TTE in January 2022, mild mitral valve stenosis - continue current treatment plan per cardiology Chronic anticoagulation 11/22/2022 Assessment & Plan (06/15/2025 11:36 AM EST): - indication: Aortic valve replacement - medication warfarin - goal INR 2-3 - followed by [facility] [place] - continue current management plan Assessment & Plan (12/30/2024 9:33 AM EDT): - indication: Aortic valve replacement - medication warfarin - goal INR 2-3 - followed by [facility] [place] - last INR was 2.0 on 03/01/23 - continue current management plan Assessment & Plan (05/30/2024 1:41 PM EST): - indication: Aortic valve replacement - medication warfarin - goal INR 2-3 - followed by [facility] [place] - last INR was 2.0 on 03/01/23 - continue current management plan Assessment & Plan (03/19/2023 1:49 PM EDT): - indication: Aortic valve replacement - medication warfarin - goal INR 2-3 - followed by [facility] [place] - last INR was 2.0 on 03/01/23 - continue current management plan Assessment & Plan (11/22/2022 11:40 AM EDT): - indication: Aortic valve replacement - medication warfarin - goal INR 2-3 - followed by [facility] [place] - last [...] polyp, benign -Pt has follow-up appointment with CERAMIC DESIGN ENGINEER -Pt is on Coumadin -Pt requested Hysterectomy, pt will follow-up with CERAMIC DESIGN ENGINEER with possible hysterectomy in future Assessment & Plan (11/08/2022 4:50 PM EDT): s/p Endometrial Curetting's, polyp, benign -Pt has follow-up appointment with CERAMIC DESIGN ENGINEER -Pt is on Coumadin -Pt requested Hysterectomy, pt will follow-up with CERAMIC DESIGN ENGINEER with possible hysterectomy in future Cyst of ovary 09/22/2022 Iron deficiency anemia due to chronic blood loss 09/22/2022 Assessment & Plan (06/15/2025 11:39 AM EST): - AUB in a setting of anticoagulation - s/p removal of endometrial polyp, benign - Status post total laparoscopic hysterectomy, bilateral salpingectomy, and right oophorectomy in April 2025 - Pt has follow-up appointment with CERAMIC DESIGN ENGINEER - Pt is taking warfarin Assessment & Plan (05/30/2024 1:41 PM EST): - AUB in a setting of anticoagulation - s/p removal of endometrial polyp, benign - Pt has follow-up appointment with CERAMIC DESIGN ENGINEER - Pt is taking Coumadin Assessment & Plan (11/03/2023 12:09 PM EDT): - AUB in a setting of anticoagulation - s/p removal of endometrial polyp, benign -Pt has follow-up appointment with CERAMIC DESIGN ENGINEER -Pt is taking Coumadin Assessment & Plan (11/08/2022 4:45 PM EDT): Due to AUB: S/p Endometrial Curetting's, polyp, benign -Pt has follow-up appointment with CERAMIC DESIGN ENGINEER -Pt is taking Coumadin Vitamin D [...] & Plan (06/15/2025 11:35 AM EST): - Van Loader[place] [facility] [place] seen in December 2023 - s/p AVR for rheumatic disease and aortic regurgitation in Feb 2010 - EKG showed sinus rhythm and RBBB - echocardiogram 08/30/2023 EF 57%. Mechanical aortic valve functioning normally. Moderate mitral valve stenosis. No regurgitation. - Continue warfarin - Continue SBE prophylaxis. Assessment & Plan (04/13/2025 7:36 PM EDT): - Van Loader: Dr. Dallas Duran, last seen in December 2023 - s/p AVR for rheumatic disease and aortic regurgitation in Feb 2010 - EKG showed sinus rhythm and RBBB - echocardiogram 08/30/2023 EF 57%. Mechanical aortic valve functioning normally. Moderate mitral valve stenosis. No regurgitation. - Continue warfarin - Continue SBE prophylaxis. Assessment & Plan (12/30/2024 9:32 AM EDT): - Van Loader: Dr. Dallas Duran, last seen in December 2023 - s/p AVR for rheumatic disease and aortic regurgitation in Feb 2010 - EKG showed sinus rhythm and RBBB - echocardiogram 08/30/23 EF 57%. Mechanical aortic valve functioning normally. Moderate mitral valve stenosis. No regurgitation. - Continue warfarin - Continue SBE prophylaxis. Assessment & Plan (05/30/2024 12:22 PM EST): - Van Loader: Dr. Dallas Duran, last seen in December 2023 - s/p AVR for rheumatic disease and aortic regurgitation in Feb 2010 - EKG showed sinus rhythm and RBBB - echocardiogram 08/30/23 EF 57%. Mechanical aortic valve functioning normally. Moderate mitral valve stenosis. No regurgitation. - Continue warfarin - Continue SBE prophylaxis. Assessment & Plan (11/03/2023 12:18 PM EDT): - Van Loader: Dr. Dallas Duran, last seen in Aug 2023 - s/p AVR for rheumatic disease and aortic regurgitation in Feb 2010 - EKG showed sinus rhythm and RBBB - echocardiogram 08/30/23 EF 57%. Mechanical aortic valve functioning normally. Moderate mitral valve stenosis. No regurgitation. - Continue warfarin - Continue SBE prophylaxis. Assessment & Plan (03/19/2023 1:47 PM EDT): - Van Loader: Dr. Dallas Duran, last seen in Jul 2022 - s/p AVR for rheumatic disease and aortic regurgitation in Feb 2010 - EKG showed sinus rhythm and RBBB - echocardiogram JANUARY 2022 nml LVEF 60-65%; mild mitral valve stenosis - Continue aspirin and warfarin, per cardiology. - Continue SBE prophylaxis. Assessment & Plan (11/22/2022 11:37 AM EDT): - Van Loader: Dr. Dallas Duran, last seen in Jul [...] & Plan (06/15/2025 11:35 AM EST): - Van Loader: Dr. Dallas Duran, last seen in December 2024 - s/p AVR for rheumatic disease and aortic regurgitation due to rheumatic heart disease in Feb 2010 - EKG showed sinus rhythm and RBBB - echocardiogram in Aug 2023, EF 59%. Normally functioning AV. Moderate mitral valve stenosis. - - most recent Echocardiogram on 05/05/2025 at [facility] [place]: Left ventricular systolic function is at the [...] & Plan (04/13/2025 7:36 PM EDT): - Van Loader: Dr. Dallas Duran, last seen in December 2024 - s/p AVR for rheumatic disease and aortic regurgitation due to rheumatic heart disease in Feb 2010 - EKG showed sinus rhythm and RBBB - echocardiogram in Aug 2023, EF 59%. Normally functioning AV. Moderate mitral valve stenosis. - Continue warfarin, per cardiology. - Continue SBE prophylaxis. Assessment & Plan (12/30/2024 9:32 AM EDT): - Van Loader: Dr. Dallas Duran, last seen in December 2023 - s/p AVR for rheumatic disease and aortic regurgitation due to rheumatic heart disease in Feb 2010 - EKG showed sinus rhythm and RBBB - echocardiogram in Aug 2023, EF 59%. Normally functioning AV. Moderate mitral valve stenosis. - Continue warfarin, per cardiology. - Continue SBE prophylaxis. Assessment & Plan (05/30/2024 12:22 PM EST): - Van Loader: Dr. Dallas Duran, last seen in December 2023 - s/p AVR for rheumatic disease and aortic regurgitation due to rheumatic heart disease in Feb 2010 - EKG showed sinus rhythm and RBBB - echocardiogram in Aug 2023, EF 59%. Normally functioning AV. Moderate mitral valve stenosis. - Continue warfarin, per cardiology. - Continue SBE prophylaxis. Assessment & Plan (11/03/2023 12:20 PM EDT): - Van Loader: [facility] [place]. Haynes, last seen [...] & Plan (11/22/2022 11:36 AM EDT): - Van Loader: [facility] [place]. Haynes, last seen [...] (01/13/2025 5:22 AM EDT): - Seen [facility] clinician today Right lower quadrant pain 03/06/2024 Assessment & Plan (03/06/2024 4:10 PM EDT): Reports RLQ abd pain x2 days. No fevers. No evidence of acute abdomen. -ordered RLQ US -given return and ER precautions. Idiopathic acute pancreatiti s without infection or necrosis 03/19/2023 11/03/2023 Assessment & Plan (03/19/2023 2:10 PM EDT): - 12/03/22 Evaluated and treated at [facility]. WBC 13k, Lipase 247, CT showed pancreatitis. Given IVF and analgesics. - Seen by [facility] in December 2022 - MRI on 03/01/23 was normal. - HgbA1C 5.9% - Follow recommendations per GI. Menometrorrhagia 09/22/2022 03/07/2023 Pain in female pelvis 09/22/20222022 Encounters Date Type Department Care Team Description 06/18/2025 Orders Only [facility] [place] [address] Clara Shearer MD Transaminitis (Primary Dx) 06/18/2025 Results Follow-Up [address] [place] [address] Clara Shearer MD Hepatic Function Panel, Hepatitis C Antibody with Reflex to HCV, RNA, Quantitative, Real-Time PCR, Hepatitis B surface antigen, EIA 06/18/2025 Orders Only GENERIC EXTERNAL DATA DEPARTMENT Provider, Generic External Data 06/13/[address] [address] Clara Shearer MD Referral 06/12/2025 Results Follow-Up [address] [address] Clara Shearer MD XR Chest 2 Views 06/11/[address] [address] Clara Shearer MD Results 06/11/2025 Orders Only [address] [address] Clara Shearer MD Chronic right shoulder pain (Primary Dx) 06/11/2025 Orders Only [address] [address] Clara Shearer MD Transaminitis (Primary Dx); RUQ pain 06/11/2025 Results Follow-Up [address] [address] Clara Shearer MD Hemoglobin A1c, Comprehensive Metabolic Panel, Lipid Panel with Reflex to Direct LDL 06/11/[address] [address] Clara Shearer MD Call Back Request 06/11/2025 Orders Only [address] [address] Clara Shearer MD Chronic right shoulder pain (Primary Dx); Nodule of upper lobe of right lung 06/11/2025 Results Follow-Up [facility] [address] [place] [id number] Clara Shearer MD XR Shoulder 2+ Views Right 06/10/2025 9:30 AM EST Office Visit [facility] [address] [place] [id number] Clara Shearer MD History of hysterectomy with [...] (obstructive sleep apnea) 06/10/2025 Travel 06/09/2025 Telephone [facility] [address] [place] [phone] Clara Shearer MD chart prep 05/28/[address] [address] Kelly Chau, RN Hospital Follow-up 05/19/2025 Refill [facility] [address] [place] [phone] Clara Shearer MD 05/16/2025 Refill [facility] [address] [place] [phone] Clara Shearer MD 05/12/2025 Patient Outreach [address] [id number] Clara Shearer MD Transition Of Care (Tcm) (HDF- unscheduled (surgery)) 05/10/2025 Telephone [facility] [address] [place] [address] Rena Lopez MD 05/02/2025 3:40 PM EDT Office Visit [facility] [address] [place] [phone] Nabil Jesus MD Generalized abdominal pain (Primary Dx); Constipation, unspecified constipation type 05/02/2025 Travel 04/21/2025 Orders Only GENERIC EXTERNAL DATA DEPARTMENT Provider, Generic External Data 04/17/[address] [address] Clara Shearer MD Critical Result 04/17/2025 Orders Only GENERIC EXTERNAL DATA DEPARTMENT Provider, Generic External Data 04/10/2025 Orders Only GENERIC EXTERNAL DATA DEPARTMENT Provider, Generic External Data 04/01/2025 3:45 PM EDT Office Visit [address] [address] Clara Shearer MD Chronic pain of both [...] unspecified headache type 04/01/2025 Travel 03/31/[address] [address] Clara Shearer MD chart prep 03/25/[address] [address] Clara Shearer MD Paperwork/Forms 03/20/2025 Orders Only [...] Description 07/22/2025 2:15 PM EST Office Visit [facility] [address] [place] [address] Clara Shearer MD [address] [place] [address] 08/20/2025 2:15 PM EST Office Visit [facility] [address] [place] [address] Katt Espinoza [address] [place] [address] Health Maintenance Due Date Last Done Comments [...] Dental X-Ray: Full Mouth 04/20/2026 04/19/2023, 01/21 Alcohol/Substance Use Screening 06/10/2026 06/10/2025 Depression Screening [...] B Vaccines Completed 05/09/2023, 12/07/2022, 11/08/2022 Hepatitis A Vaccines Aged Out 12/30/2024 No long er eligible based on patient's age to complete this topic Influenza Vaccine Completed 05/09/2025, , 05/09/2023, Additional history exists Hepatitis C Screening Completed 06/18/2025 , 12/11/2023, 12/15/2022, Additional history exists HIB Vaccines Aged Out [...] Name Priority Date/Time Associated Diagnosis Comments HEPATITIS B SURFACE ANTIGEN, EIA Routine 06/18/2025 8:37 AM EST Transaminitis HEPATITIS C AB W/REFL TO HCV RNA, QN, PCR Routine 06/18/2025 8:37 AM EST Transaminitis HEPATIC FUNCTION PANEL Routine 8:37 AM EST Transaminitis BASIC METABOLIC PANEL Routine 06/18/2025 8:37 AM EST Generalized abdominal pain PROTHROMBIN TIME WHOLE BLD POC Routine 06/18/2025 [...] PM EDT PROPHYLAXIS - ADULT Routine 10/31/2024 2:00 PM EDT Dental plaque BI MAMMOGRAM SCREENING TOMOSYNTHESIS BILATERAL Routine 10/04/2024 3:55 PM EDT PERIODIC ORAL EVALUATION - ESTABLISHED PATIENT Routine 01/19/2024 1:30 PM EDT Teeth missing Encounter for dental examination BITEWINGS - 2 RADIOGRAPHIC IMAGES Routine 12/28/2023 3:00 PM EDT Teeth missing Dental plaque HIV 1 RNA, QUANTITATIVE REAL TIME PCR Routine 12/15/2022 8:09 AM EDT Routine health maintenance INTRAORAL - COMPLETE SERIES OF RADIOGRAPHIC IMAGES Routine 02/03/2021 12:00 AM EDT HPV GENOTYPES 16,18/45 Routine 4:51 PM EDT THINPREP PAP Routine 11/13/2020 4:51 PM EDT from Last 3 Months or Most Recently Relevant to Health Maintenance Results * Hepatitis C Antibody with Reflex to HCV, RNA, Quantitative, Real-Time PCR (06/18/2025 8:37 AM EST) Pathologist [facility] Hepatitis C Antibody Nonreactive Nonreactive [facility] Comment:Antibodies to HCV no t detected; does not exclude early acuteHCV infection. Venous blood specimen / Unknown 06/18/2025 8:37 AM EST 06/18/2025 8:43 AM EST Clara Shearer MD LAB BLOOD ORDERABLES Final Resul t Performing Organization Address [facility] Co de Phone Number [facility] [address] [place] [phone] * Hepatitis B surface antigen, EIA (06/18/2025 8:37 AM EST) [facility] Hepatitis B Surface Ag Negative Negative [facility] Venous blood specimen / Unknown 06/18/2025 8:37 AM EST 06/18/2025 8:43 AM EST Clara Shearer MD LAB BLOOD ORDERABLES Final Resul t Performing Organization Address [facility] Co de Phone Number [facility] [address] [place] [phone] * (ABNORMAL) Hepatic Function Panel (06/18/2025 8:37 AM EST) Pathologist [facility] Bilirubin, Total 0.3 0.0 - 1.0 mg/dL [facility] Bilirubin, Direct 0.1 0.0 - 0.5 mg/dL [facility] Aspartate Amino Transferase 65(H) 5 - 31 U/L [facility] Alanine Aminotransferase 162(H) 0 - 31 U/L [facility] Total Protein 7.7 6.5 - 8.0 g/dL [facility] Albumin Level 4.5 3.5 - 5.0 g/dL [facility] Alkaline Phosphatase 121(H) 39 - 117 U/L [facility] Blood Venous blood specimen / Unknown 06/18/2025 8:37 AM EST 06/18/2025 8:43 AM EST Clara Shearer MD LAB BLOOD ORDERABLES Final Resul t Performing Organization Address [facility] de Phone Number [facility] [address] [place] [phone] * Basic Metabolic Panel (06/18/2025 8:37 AM EST) Sodium 139 135 - 145 mmol/L [facility] Potassium 4.1 3.3 - 5.1 mmol/L [facility] Chloride 108 96 - 108 mmol/L [facility] Carbon Dioxide 23 22 - 29 mmol/L [facility] Anion Gap 12 12 - 20 [facility] Urea Nitrogen (BUN) 10 9 - 16 mg/dL [facility] Creatinine, Serum 0.56 0.5 - 1.4 mg/dL [facility] Estimated Glomerular Filt Rate >60 [facility] Comment:Chronic Kidney Disea se: Estimated GFR < 60 mL/min/1.45g5Omnhiw Kidney Disease: Estimated GFR < 15 mL/min/1.73m2 Glucose 96 60 - 115 mg/dL [facility] Calcium 9.8 8.4 - 10.2 mg/dL [facility] Blood Venous blood specimen / Unknown 06/18/2025 8:37 AM EST 06/18/2025 8:43 AM EST Nabil Jesus MD LAB BLOOD ORDERABLES Final Resul t Performing Organization Address [facility] de Phone Number [facility] [address] [place] [address] [phone] * (ABNORMAL) PROTHROMBIN TIME WHOLE BLD POC (06/18/2025 8:15 AM EST) Only the most recent of5 resultswithin the time period is included. Protime 30.3(H) 11.1 - 13.5 sec [facility] 06/18/2025 8:15 AM EST 06/18/2025 8:18 AM EST us Generic External Data Provider LAB BLOOD ORDERAB LES Final Result Performing Organization Address [facility] de Phone Number [facility] [address] [place] [address] [phone] * (ABNORMAL) ~PT, ~INR - ANTI COAG CLINIC (06/18/2025 8:15 AM EST) Only the most recent of5 resultswithin the time period is included. Prothrombin Time INR 2.5(H) 0.9 - 1.1 [facility] Comment:METER #: [id number] TERNATIONAL NORMALIZED RATIO (INR) REFERENCE RANGES Reference [...] Final Result Performing Organization Address [facility] de Phone Number [facility] [address] [place] [address] [phone] * XR Chest 2 Views (06/12/2025 1:47 PM EST) Anatomical Region Laterality Modality Chest Radiographic Darlene ging 06/12/2025 1:47 PM EST Narrative 06/12/2025 2:12 PM EST [address] [address] XRay Report Signed Patient: Thalia Martell MR#: [id number] 2088 : 1975 Acct:[id number] Age/Sex: 50 / F ADM Date: 06/12/25 Loc: VICKIE Attending Dr: Clara Shearer MD Ordering Physician: Clara Shearer MD Date of Service: 06/12/25 Procedure(s): XR chest 2V Accession Number(s): [id number] cc: Clara Shearer MD Reason for Exam: [...] 06/12/25 1409 DD/ 1347 TD/TT: 06/12/25 1350 Printed Circuit Board Designer: Procedure Note Donotuseinterpreter, Image - 06/12/[address] [address] XRay Report Signed Patient: Yoel Martell#: [id number] 2088 : 1975Acct:[id number] Age/Sex: 50 / FADM Date: 06/12/25 Loc: VICKIE Attending Dr: Clara Shearer MD Ordering Physician: Clara Shearer MD Date of Service: 06/12/25 Procedure(s): XR chest 2V Accession Number(s): [id number] cc: Clara Shearer MD Reason for Exam: [...] 06/12/25 1409 DD/ 1347 TD/TT: 06/12/25 1350 Printed Circuit Board Designer: Clara Shearer MD IMG XR PROCEDURES Final Result * Vitamin D, 25-Hydroxy, Total, Immunoassay (06/11/2025 8:13 AM EST) Vitamin D 25-OH Total 39.5 >30 ng/mL [facility] Comment: Health Based Reference Values*< 20 ng/mL Nxufolwot60-17 ng/mL Insufficient> 30 ng/mL Sufficient*Paul LEVIN. N [...] ORDERABLES Final Resul t Performing Organization Address [facility] Co de Phone Number [facility] [address] [place] [phone] * Vitamin B12 (Cobalamin) and Folate Panel, Serum (06/11/2025 8:13 AM EST) Vitamin B12 809 200 - 900 pg/mL [facility] Comment:NORMAL 200-900 PG/ML INDETERMINATE 160-199 PG/ML DEFICIENT < 160 PG/ML Folate 9.4 > or = 4.0 ng/mL [facility] Comment:Reference Values:> o r = 4.0 ng/mL< 4.0 ng/mL suggests folate deficiency Methotrexate, aminopterin and folinic acid(leucovorin) are chemotherapeutic agents whose molecularstructures are similar to folate; therefore, the Architectfolate assay cannot be used for patients using these drugs. Blood 06/11/2025 8:13 AM EST 06/11/2025 11:09 AM EST us Clara Shearer MD LAB BLOOD ORDERABLES Final Resul t Performing Organization Address [facility] Co de Phone Number [facility] [address] [place] [phone] * TSH with Reflex to Free T4 (06/11/2025 8:13 AM EST) TSH reflex Free T4 1.95 0.32 - 4.0 uIU/mL [facility] Blood 06/11/2025 8:13 AM EST 06/11/2025 11:09 AM EST us Clara Shearer MD LAB BLOOD ORDERABLES Final Resul t Performing Organization Address [facility] de Phone Number [facility] [address] [place] [address] [phone] * (ABNORMAL) Lipid Panel with Reflex to Direct LDL (06/11/2025 8:13 AM EST) Triglycerides 186(H) <150 mg/dL [facility] Comment:Desirable Triglyceri de: less than 150 mg/dLBorderline High Triglyceride 150-199 mg/dLHigh Triglyceride: 200-499 mg/dLVery High Triglyceride: greater than or equal to 5OO mg/dL Cholesterol 243(H) <200 mg/dL [facility] Comment:Desirable Cholestero l: less than 200 mg/dLBorderline High Cholesterol: 200-239 mg/dLHigh Cholesterol: greater than 239 mg/dL LDL Cholesterol Calculated 148(H) <100 mg/dL [facility] Comment:Desirable LDL: less than 100 mg/dLNear Optimal/Above Optimal LDL: 110- 129 mg/dLBorderline High LDL: 130-159 mg/dLHigh LDL: 160-189 mg/dLVery High LDL: greater than or equal to 190 mg/dL HDL Cholesterol 58 >40 mg/dL [facility] Comment:Desirable HDL: great er than 40 mg/dL Note: This HDL assay may give artificially low results in patients with liver disease. Blood 06/11/2025 8:13 AM EST 06/11/2025 11:09 AM EST Clara Shearer MD LAB BLOOD ORDERABLES Final Resul t Performing Organization Address [facility] Co de Phone Number [facility] [address] [place] [phone] * (ABNORMAL) CBC auto differential (06/11/2025 8:13 AM EST) White Blood Count 5.0 4.8 - 10.8 X10*3/uL [facility] Red Blood Count 4.11(L) 4.20 - 5.50 X10*6/uL [facility] Hemoglobin 12.1 12.0 - 16.0 g/dl [facility] Hematocrit 37.7 37.0 - 47.0 % [facility] Mean Corpuscular Volume 91.7 80.0 - 98.0 fL [facility] Mean Corpuscular Hemoglobin 29.4 27.0 - 33.0 pg [facility] Mean Corpuscular HGB Conc 32.1 31.0 - 35.0 g/dl [facility] Red Cell Distribution Width 13.7 11.0 - 16.0 % [facility] Platelet Count 218 160 - 400 X10*3/uL [facility] Mean Platelet Volume 10.6 9.4 - 12.3 fL [facility] Neutrophils Percent Auto 63.2 45 - 73 % [facility] Imm Gran Pct Auto 0.2 0.0 - 0.4 % [facility] Lymphocytes Percent Auto 21.8 20 - 40 % [facility] Monocytes Percent Auto 10.4 2 - 11 % [facility] Eosinophils Percent Auto 4.0 0 - 4 % [facility] Basophils Percent Auto 0.4 0 - 2 % [facility] NRBC Pct Auto 0.0 0.0 - 0.2 /100WBC [facility] Neutrophils Absolute Auto 3.2 2.0 - 8.3 x10*3/uL [facility] Imm Gran Abs Auto 0.01 0.00 - 0.03 X10*3/uL [facility] Lymphocytes Absolute Auto 1.1(L) 1.2 - 4.9 X10*3/uL [facility] Monocytes Absolute Auto 0.5 0.1 - 1.2 X10*3/uL [facility] Eosinophils Absolute Auto 0.2 0.0 - 0.4 X10*3/uL [facility] Basophils Absolute Auto 0.0 0.0 - 0.2 X10*3/uL [facility] NRBC Abs Auto 0.000 0.0 - 0.012 X10*3/uL [facility] Blood Venous blood specimen / Unknown 06/11/2025 8:13 AM EST 06/11/2025 11:08 AM EST Clara Shearer MD LAB BLOOD ORDERABLES Final Resul t Performing Organization Address [facility] Co de Phone Number [facility] [address] [place] [phone] * Iron And Total Iron Binding Capacity (06/11/2025 8:13 AM EST) Iron 56 30 - 160 mcg/dL [facility] Total Iron Binding Capacity 318 228 - 428 mcg/dL [facility] Percent Iron Saturation 18 15 - 50 % [facility] Unsaturated Iron Binding 262 ug/dL [facility] Blood Venous blood specimen / Unknown 06/11/2025 8:13 AM EST 06/11/2025 11:09 AM EST Clara Shearer MD LAB BLOOD ORDERABLES Final Resul t Performing Organization Address [facility] de Phone Number [facility] [address] [place] [phone] * (ABNORMAL) Reticulocyte Count (06/11/2025 8:13 AM EST) Pathologist [facility] Reticulocytes Absolute 0.130(H) 0.026 - 0.095 X10*6/uL [facility] Immature Retic Fraction 16.3(H) 3.0 - 15.9 % [facility] Retic HGB Equivalent 32.8 30.0 - 35.0 pg [facility] Reticulocyte Percent 3.2(H) 0.5 - 1.8 % [facility] Blood Venous blood specimen / Unknown 06/11/2025 8:13 AM EST 06/11/2025 11:08 AM EST Clara Shearer MD LAB BLOOD ORDERABLES Final Resul t Performing Organization Address [facility] Co de Phone Number [facility] [address] [place] [phone] * Hemoglobin A1c (06/11/2025 8:13 AM EST) Hemoglobin A1c 5.5 <6.0 % [facility] Comment:Hemoglobin A1C Refer ence Range Adults: 4.8 - 6.0 % Non diabetic: < 6.0 % Goal: < 7.0 %Additional Action Suggested: > 8.0 %Note: Hemoglobin A1c results are invalid for patients with abnormal amounts of HbF. Blood transfusions may impact the HbA1c concentration in the patient sample. Estimated Average Glucose 111 mg/dL [facility] Comment:eAG = Estimated ave rage glucose which is %A1C expressed asaverage glucose, using the formula of the [id number] Glucose study (ADAG), Diabetes Care, Vol.31,#8,2007 Blood Venous blood specimen / Unknown 06/11/2025 8:13 AM EST 06/11/2025 11:08 AM EST Clara Shearer MD LAB BLOOD ORDERABLES Final Resul t Performing Organization Address City/[facility]/ZIP Co de Phone Number [facility] [address] [place] [phone] * Ferritin (06/11/2025 8:13 AM EST) Pathologist [facility] Ferritin 92 10 - 250 ng/mL [facility] Blood Venous blood specimen / Unknown 06/11/2025 8:13 AM EST 06/11/2025 11:09 AM EST Clara Shearer MD LAB BLOOD ORDERABLES Final Resul t Performing Organization Address [facility]/ZIP Co de Phone Number [facility] [address] [place] [phone] * (ABNORMAL) Comprehensive Metabolic Panel (06/11/2025 8:13 AM EST) Sodium 137 135 - 145 mmol/L [facility] Potassium 3.8 3.3 - 5.1 mmol/L [facility] Chloride 107 96 - 108 mmol/L [facility] Carbon Dioxide 24 22 - 29 mmol/L [facility] Anion Gap 10(L) 12 - 20 [facility] Urea Nitrogen (BUN) 12 9 - 16 mg/dL [facility] Creatinine, Serum 0.53 0.5 - 1.4 mg/dL [facility] Estimated Glomerular Filt Rate >60 [facility] Comment:Chronic Kidney Disea se: Estimated GFR < 60 mL/min/1.46s7Erpfme Kidney Disease: Estimated GFR < 15 mL/min/1.73m2 Glucose 105 60 - 115 mg/dL [facility] Calcium 9.2 8.4 - 10.2 mg/dL [facility] Bilirubin, Total 0.5 0.0 - 1.0 mg/dL [facility] Aspartate Amino Transferase 153(H) 5 - 31 U/L [facility] Alanine Aminotransferase 267(H) 0 - 31 U/L [facility] Total Protein 7.3 6.5 - 8.0 g/dL [facility] Albumin Level 4.2 3.5 - 5.0 g/dL [facility] Alkaline Phosphatase 119(H) 39 - 117 U/L [facility] Blood Venous blood specimen / Unknown 06/11/2025 8:13 AM EST 06/11/2025 11:09 AM EST us Clara Shearer MD LAB BLOOD ORDERABLES Final Resul t [facility] [address] [place] [phone] * XR Shoulder 2+ Views Right (06/10/2025 11:10 AM EST) Anatomical Region Laterality Modality Upper Extremities, Shoulder Right Radi ographic Imaging 06/10/2025 11:1 0 AM EST Narrative 06/10/2025 3:02 PM EST [facility] [address] [place] [address] XRay Report Signed Patient: Thalia Martell MR#: [id number] 2088 : 1975 Acct:[id number] Age/Sex: 50 / F ADM Date: 06/10/25 Loc: STEFANIE Attending Dr: Clara Shearer MD Ordering Physician: Clara Shearer MD Date of Service: 06/10/25 Procedure(s): XR shoulder RT min 2V Accession Number(s): [id number] cc: Clara Shearer MD Reason for Exam: [...] by: Titi Tamayo MD 06/10/2025 02:59 PM [facility] [place]ictated By: Titi Tamayo MD Signed By: <Electronically signed by Titi Tamayo MD in OV> 06/10/25 1459 DD/ 1110 TD/TT: 06/10/25 1115 Printed Circuit Board Designer: Procedure Note Donotuseinterpreter, Image - 06/10/[address] [address] XRay Report Signed Patient: Yoel Martell#: [id number] 2088 : 1975Acct:[id number] Age/Sex: 50 / FADM Date: 06/10/25 Loc: IRMAX Attending Dr: Clara Shearer MD Ordering Physician: Clara Shearer MD Date of Service: 06/10/25 Procedure(s): XR shoulder RT min 2V Accession Number(s): [id number] cc: Clara Shearer MD Reason for Exam: [...] 06/10/2025 02:59 PM EST Dictated By: Titi Tamayo MD Signed By: <Electronically signed by Titi Tamayo MD in OV> 06/10/25 1459 DD/ 1110 TD/TT: 06/10/25 1115 Printed Circuit Board Designer: RIA Clara Shearer MD IMG XR PROCEDURES Final Result * POCT urinalysis dipstick manually resulted (CPT 79236) (05/02/2025 3:50 PM EDT) Color, UA Yellow [...] Prothrombin Time 65.0(H) 10.9 - 12.4 SEC [facility] INTERNATIONAL NORM RATIO 5.7(HH) 0.9 - 1.1 [facility] Comment:RESULTS OF PT/INR CA LLED [...] ORDERAB LES Final Result Performing Organization Address City/State/[facility] Co de Phone Number [facility] [address] [place] [phone] * US Retroperitoneal Complete (04/11/2025 9:01 AM EDT) Anatomical Region Laterality Modality Ultrasound 04/11/2025 9:01 AM EDT Narrative 04/11/2025 9:02 AM EDT [address] [address] Ultrasound Report Signed Patient: Thalia Martell MR#: [id number] 2088 : 1975 Acct:[id number] Age/Sex: 50 / F ADM Date: 04/10/25 Loc: [facility] Attending Dr: Clara Shearer MD Ordering Physician: Clara Shearer MD Date of Service: 04/10/25 Procedure(s): US retroperitoneal comp Accession Number(s): [id number] cc: Clara Shearer MD Reason for Exam: hematuria CLINICAL HISTORY: hematuria US Renal Comparison: None provided Findings: Right kidney normal size and echotexture, 10.9 cm length. Left kidney normal size and echotexture, 12.7 cm length. The director of food and beverage services demonstrates mild pelvic fullness bilaterally. It is [...] in OV> 04/11/25901 DD/ 0 TD/TT: 04/11/25900 Printed Circuit Board Designer: Procedure Note Donotuseinterpreter, Image - 04/11/2025 [place] [address] Ultrasound Report Signed Patient: Yoel Martell#: [id number] 2088 : 1975Acct:[id number] Age/Sex: 50 / FADM Date: 04/10/25 Loc: .US Attending Dr: Clara Shearer MD Ordering Physician: Clara Shearer MD Date of Service: 04/10/25 Procedure(s): US retroperitoneal comp Accession Number(s): [id number] cc: Clara Shearer MD Reason for Exam: hematuria CLINICAL HISTORY: hematuria US Renal Comparison: None provided Findings: Right kidney normal size and echotexture, 10.9 cm length. Left kidney normal size and echotexture, 12.7 cm length. The director of food and beverage services demonstrates mild pelvic fullness bilaterally. It is [...] in OV> 04/11/25901 DD/ 0 TD/TT: 04/11/25900 Printed Circuit Board Designer: Clara Shearer MD IMG US PROCEDURES Edited Result - Final * BI Mammogram Screening Tomosynthesis Bilateral (10/04/2024 3:55 PM EDT) Anatomical Region Laterality Modality Breast Bilateral Mammography 10/04/2024 3:55 PM EDT Narrative 10/13/2024 6:12 PM EDT [facility] [place], [place] [address] Mammography Report Signed Patient: Thalia Martell MR#: [id number] 2088 : 1975 Acct:[id number] Age/Sex: 49 / F ADM Date: 10/04/24 Loc: HO.MAMMO Attending Dr: Clara Shearer MD Ordering Physician: Clara Shearer MD Results: 1Negative Date of Service: 10/04/24 Follow Up: 1 Year From Orig ina Mammogram Procedure(s): MM tomosynthesis screening BI Accession Number(s): [id number] cc: Clara Shearer MD EXAMINATION: MM SCREENING [...] 10/13/24 1809 DD/ 1555 TD/TT: 10/04/24 1608 Printed Circuit Board Designer: Procedure Note Donotuseinterpreter, Image - 10/13/2024 [facility] [address] [place] [address] Mammography Report Signed Patient: Yoel Martell#: [id number] 2088 : 1975Acct:[id number] Age/Sex: 49 / FADM Date: 10/04/24 Loc: MARIE Attending Dr: Clara Shearer MD Ordering Physician: Clara Shearer MDResults: 1Negative Date of Service: 10/04/24Follow Up: 1 Year From Orig inal Mammogram Procedure(s): MM tomosynthesis screening BI Accession Number(s): [id number] cc: Clara Shearer MD EXAMINATION: MM SCREENING [...] 10/13/24 1809 DD/ 1555 TD/TT: 10/04/24 1608 Printed Circuit Board Designer: Clara Shearer MD [facility] BI PROCEDURES Edited Result - Final * HIV-1 RNA, Quantitative, Real-Time PCR (12/15/2022 8:09 AM EDT) HIV 1 RNA, QN PCR NOT DETECTED NOT DETECTED copies/mL [facility] [place] [facility] HIV 1 RNA, QN PCR NOT DETECTED NOT DETECTED Log copies/mL [facility] Comment: This test was performed using Real-Time Polymerase Chain Reaction. Reportable Range: 20 copies/mL to 10,000,000 copies/mL (1.30 log copies/mL to 7.00 log copies/mL). Blood Venous blood specimen / Unknown 12/15/2022 8:09 AM EDT 12/15/2022 8:10 AM EDT Narrative [facility] - 12/23/2022 6:53 PM EDT FASTING:NO FASTING: NO Yany Cosby [facility] LAB BLOOD ORDERABLES Final Res ult [facility] [address], [place] [address] [facility] [address] [place] [address] * THINPREP PAP (11/13/2020 4:51 PM EDT) Pathologist [facility] Clinical Information: None given [facility] [...] along with historic and current clinical information. Supervisor Stripping : SEE COMMENT [facility] Comment: RK, CT(ASCP) CT screening location: [place] [address] Interpretation/R esult: Negative for intraepithelial lesion or malignancy. [facility] LMP: NONE [facility]IVEN [facility] Prev. BX: NONE [facility]IV[facility] Prev. PAP: NONE [facility]IVEN [facility] Review Supervisor Stripping : SEE COMMENT [facility] Comment: BLC,CT(ASCP) CT screening location: [place] [address] SOURCE: None given [facility] Statement Of Adequacy: SEE COMMENT [facility] Comment: Satisfactory for evaluation. Endocervical/transformation zone component present. Age and/or menstrual status not provided 11/13/2020 4:51 PM EDT Ginette Her NP LAB PATHOLOGY ORDERABLES Final Result Performing Organization Address [facility] de Phone Number [facility] [address] * HPV GENOTYPES 16,18/45 (11/13/2020 4:51 PM EDT) HPV 16 RNA NOT DETECTED NOT DETECTED [facility] HPV 18/45 RNA NOT DETECTED NOT DETECTED [facility] Comment: Methodology: Pharmacy Clinical Coordinator Mediated Amplification The analytical performance characteristics of this assay have been determined by [facility]. The modifications have not been cleared or approved by the FDA. This assay has been validated pursuant to the CLIA regulations and is used for clinical purposes. 11/13/2020 4:51 PM EDT Ginette Her NP LAB CYTOLOGY ORDERABLES Final R esult Performing Organization Address [facility] Co de Phone Number [facility] [address] from Last 3 Months or Most Recently Relevant to Health Maintenance [facility] HSN PARTIAL (MEDICAID) Care Teams Research Microbiologist Relationship Specialty Start Date End Date Clara Shearer MD [address] [place] [phone] PCP - General Family Medicine 07/24/18
--- OUTSIDE RECORDS SUMMARY | 2025-06-18 16:27 | XMS_ITS | Encounter Summary ---
Author Organization [facility] Address [address] [place] [address] [address] [place] [address] Care Team Providers Care Chemical Operations Specialist Name Role Phone Clara Shearer MD Primary Care Provider [phone] Encounter Details Date Type Department Care Team (Latest Contact Info) Description 09/26/2019 Abstract [facility] Dental, Provider, DDS Social History Tobacco [...] 2:15 PM EST Office Visit [facility] [address] [place] [address] Clara Shearer MD [address] [place] [address] 08/20/2025 2:15 PM EST Office Visit [facility] [address] [place] [address] Katt Espinoza [address] [place] [address] documented as of this encounter Visit Diagnoses Not on filedocumented in this encounter Care Teams Chemical Operations Specialist Relationship Specialty Start Date End Date Clara Shearer MD [address] [place] [address] PCP - General Family Medicine 07/24/18 documented as of this encounter
== END 2025-06-18 13:49 | disposition home or self-care (01) ==
LOC: HO.HCS 13:19
PROVIDERS: PCP Family Medicine
DX: Z95.2 Presence of prosthetic heart valve (principal); I09.9 Rheumatic heart disease, unspecified; G47.33 Obstructive sleep apnea (adult) (pediatric); Z79.01 Long term (current) use of anticoagulants
CPT/HCPCS: 99214

== ENCOUNTER 2025-06-26 13:17 | Outpatient (AMB) | payer OTHER, SELFPAY ==
[2025-06-26 13:23] LABS: Prothrombin Time Whole Bld POC 48.4 sec (11.1-13.5); ~PT, ~INR - Anti Coag Clinic 4.0 (0.9-1.1)
--- NOTE | 2025-06-26 13:29 | MHC.OFFVISCO ---
Intake Intake Visit Reasons: Anticoagulation Allergies peach Allergy (Severe, Verified 06/26/25 13:18) Angioedema Medication List - Last Reconciled 06/26/25 by Silvia Paredes, RN ascorbic acid (vitamin C) 500 mg PO BID aspirin (Adult Aspirin Regimen) 81 mg PO DAILY cetirizine 10 mg PO DAILY cholecalciferol (vitamin D3) 50 mcg PO DAILY cyclobenzaprine 10 mg PO TID PRN hydrocortisone 2.5% (Proctosol HC) 1 appl [place] BID-QID PRN olopatadine 0.2% (Pataday Once Daily Relief) 1 drp ophthalmic (eye) DAILY PRN 30 days MDD as needed omeprazole 20 mg PO DAILY PRN oxycodone 5 mg PO TID PRN sennosides (senna) 17.2 mg PO DAILY sumatriptan succinate 100 mg PO .prn MDD 200mg tolterodine ER 4 mg PO DAILY PRN topiramate 50 mg PO DAILY PRN warfarin See Protocol orally 6mg daily; Nursing Note INR: 4.0out of therapeutic range of 203 Pt states she feels better and went back to work but still has pain and is taking tylenol although not every day. Denies bleeding. Medications and supplements reviewed Medications or supplements: no changes Diet: no changes Denies any signs and symptoms of bleeding or clotting or unusual bruising Bleeding, bruising, clotting discussed Nutritional guidance given: to have a serving of greens today Dose: hold today's dose of 6mg then usual dose for the remainder of the week. Will decrease weekly dose starting 06/29/25 to 6mg X 4 days and 3mg X 3 days (M/W/F) F/U INR Date: 07/10/25?? Patient verbalizing understanding of instructions with read back given. Anti-Coag Initial Assessment Social Hx Patient Tobacco Use Status: Never used Tobacco alcohol intake: never Alcohol intake frequency: does not drink Coding Level of Care Code Est Patient Level 1 Diagnoses Current use of anticoagulant therapy Z79.01 Assessment & Plan Assessment & Plan (1) Current use of anticoagulant therapy: Code(s): Z79.01 - nursing home (current) use of anticoagulants Category: Medical
== END 2025-06-26 13:35 | disposition home or self-care (01) ==
LOC: HO.ACS 13:17
PROVIDERS: PCP Family Medicine; Visit Provider Internal Medicine Medical Oncology
DX: Z79.01 Long term (current) use of anticoagulants (principal)

== ENCOUNTER → 2025-06-26 13:17 | Outpatient (BNVA) | payer OTHER, SELFPAY | PROVIDERS: PCP Family Medicine; Visit Provider Internal Medicine Medical Oncology | DX: Z95.2 Presence of prosthetic heart valve (principal); Z51.81 Encounter for therapeutic drug level monitoring; Z79.01 Long term (current) use of anticoagulants | CPT/HCPCS: 85610; 99211 ==

== ENCOUNTER 2025-07-15 07:50 | Outpatient (AMB) | payer OTHER, SELFPAY ==
--- OUTSIDE RECORDS SUMMARY | 2025-07-15 07:52 | XMS_ITS | Encounter Summary ---
Author Organization [employer] Address [address] [facility] [address] [place] [address] Care Team Providers Care Industrial Electrician Name Role Phone Clara Shearer MD Primary Care Provider [phone] Encounter Details Date Type Department Care Team ([facility] st Contact Info) Description 01/22/2024 Orders Only [facility] [address] [place], [place] [phone] Clara Shearer MD [address] [place], [place] [phone] History of mechanical aortic valve replacement Social [...] Description 07/22/2025 2:15 PM EST Office Visit [facility] [address] [place] [phone] Clara Shearer MD [address] [place] [address] 07/22/2025 3:30 PM EST Office Visit [facility] [address] [place] [address] Daina Mccollum, DDS [address] [place] [address] 08/20/2025 2:15 PM EST Office Visit [facility] [address] [place] [address] Katt Espinoza [address] [place] [address] documented as of this encounter Visit Diagnoses Diagnosis History of mechanical aortic valve replacement documented in this encounter Additional Health Concerns Assessment Noted Time PHQ-9 Depression Total Score: 0 10/17/19 24 3:45 PM EDT documented as of this encounter Care Teams Industrial Electrician Relationship Specialty Start Date End Date Clara Shearer MD [address] [place] [phone] PCP - General Family Medicine 1/1/19 documented as of this encounter
--- OUTSIDE RECORDS SUMMARY | 2025-07-15 07:52 | XMS_ITS | Encounter Summary ---
Author Organization [employer] Address [address] [place] [address] 7t [place] [address] Care Team Providers Care Health Information Assistant Name Role Phone Clara Shearer MD Primary Care Provider [phone] Reason for Referral * Imaging (Routine) - Closed Specialty Diagnoses / Procedures Referred By Ron brewer Referred To Contact Radiology Diagnoses Hematuria, unspecified type Procedures US RENAL BI Clara Shearer MD [address] [place] [address] Phone: tel: fax: [address] [address] Phone: tel: fax: Referral ID Status Reason Start Date Expiration Date Visits Re quested Visits Authorized [id number] Closed 02/21/2025 02/21/2026 1 1 Encounter Details Date Type Department Care Team (Late st Contact Info) Description 02/21/2025 Orders Only [facility] [address] [place] [address] Clara Shearer MD [address] [place], [place] [phone] Hematuria, unspecified type (Primary Dx) Social History [...] Description 07/22/2025 2:15 PM EST Office Visit [facility] [address] [place] [address] Clara Shearer MD [address] [place] [address] 07/22/2025 3:30 PM EST Office Visit [facility] ADULT DENTAL [address] [place], [place] [phone] Lyn-Méndez, Daina, DDS [address] [place], [place] [phone] 08/20/2025 2:15 PM EST Office Visit [facility] ADULT [facility] [address] [place], [place] [phone] Jignesh Espinozaaris [address] [place] [address] Scheduled Orders Name Type Priority Associated Diagnoses [...] AM EDT Narrative 04/11/2025 9:02 AM EDT [address] [address] Ultrasound Report Signed Patient: Thalia Martell MR#: [id number] 2088 : 1975 Acct:[id number] Age/Sex: 50 / F ADM Date: 04/10/25 Loc: .US Attending Dr: Clara Shearer MD Ordering Physician: Clara Shearer MD Date of Service: 04/10/25 Procedure(s): US retroperitoneal comp Accession Number(s): [id number] cc: Clara Shearer MD Reason for Exam: hematuria CLINICAL HISTORY: hematuria US Renal Comparison: None provided Findings: Right kidney normal size and echotexture, 10.9 cm length. Left kidney normal size and echotexture, 12.7 cm length. The cook roast demonstrates mild pelvic fullness bilaterally. It is [...] in OV> 04/11/25901 DD/ 0 TD/TT: 04/11/25900 Zipper Trimmer Hand: Procedure Note Donotuseinterpreter, Image - 04/11/[address] [address] Ultrasound Report Signed Patient: Yoel Martell#: [id number] 2088 : 1975Acct:[id number] Age/Sex: 50 / FADM Date: 04/10/25 Loc: HO.US Attending Dr: Clara Shearer MD Ordering Physician: Clara Shearer MD Date of Service: 04/10/25 Procedure(s): US retroperitoneal comp Accession Number(s): [id number] cc: Clara Shearer MD Reason for Exam: hematuria CLINICAL HISTORY: hematuria US Renal Comparison: None provided Findings: Right kidney normal size and echotexture, 10.9 cm length. Left kidney normal size and echotexture, 12.7 cm length. The cook roast demonstrates mild pelvic fullness bilaterally. It is [...] in OV> 04/11/25901 DD/ 0 TD/TT: 04/11/25900 Zipper Trimmer Hand: us Clara Shearer MD IMG US PROCEDURES Edited Result - Final documented in this encounter Visit Diagnoses Diagnosis Hematuria, unspecified type- Primary documented in this encounter Additional Health Concerns Assessment Noted Time PHQ-9 Depression Total Score: 17 025 1:38 PM EDT documented as of this encounter Care Teams Health Information Assistant Relationship Specialty Start Date End Date Clara Shearer MD [address] [place] [address] PCP - General Family Medicine 07/24/18 documented as of this encounter
--- OUTSIDE RECORDS SUMMARY | 2025-07-15 07:52 | XMS_ITS | Encounter Summary ---
Author Organization [facility] Address [address] [place] [address] Phone Care Team Providers Care Kettle Girl Name Role Phone Clara Shearer MD Primary Care Provider [phone] Encounter Details Date Type Department Care Team (Late st Contact Info) Description 05/05/2025 Procedure Pass [facility] Echocardiography [address] [place] [address] Social History Tobacco Use Types Packs/Day Years [...] housing situation today? I have nayelorenza martinez 05/05/2025 How many times have you [...] on filedocumented in this encounter Care Teams Kettle Girl Relationship Specialty Start Date End Date Clara Shearer MD [address] [place] [address] PCP - General Family Medicine 02/16/22 documented as of this encounter Additional Source Comments The information contained in this document represents components of the legal health record. It is not the complete legal health record.[facility]
--- OUTSIDE RECORDS SUMMARY | 2025-07-15 07:52 | XMS_ITS | Encounter Summary ---
Author Organization [employer] Address [address] [facility] 7t [place] [address] Care Team Providers Care Director Ship Name Role Phone Clara Shearer MD Primary Care Provider Encounter Details Date Type Department Care Team ([facility] st Contact Info) Description 06/11/2025 Orders Only [facility] [address] [place], [place] [phone] Clara Shearer MD [address] [place], [place] [phone] Chronic right shoulder pain (Primary Dx); Nodule [...] PM EST Office Visit [facility] [address] [place] [address] Clara Shearer MD [address] [place] [address] 07/22/2025 3:30 PM EST Office Visit [facility] ADULT DENTAL [address] [place] [address] Daina Mccollum, DDS [address] [place] [address] 08/20/2025 2:15 PM EST Office Visit [facility] ADULT DENTAL [address] [place] [address] Katt Espinoza [address] [place] [address] documented as of this encounter Procedures Procedure Name Priority Date/Time Associated Diagnosis Comments XR CHEST 2 VIEWS Routine 06/12/2025 1:47 PM EST Nodule of upper lobe of right lung documented in this encounter Results * XR Chest 2 Views (06/12/2025 1:47 PM EST) Anatomical Region Laterality Modality Chest Radiographic Darlene ging 06/12/2025 1:47 PM EST Narrative 06/12/2025 2:12 PM EST [address] [address] XRay Report Signed Patient: Thalia Martell MR#: [id number] 2088 : 1975 Acct:[id number] Age/Sex: 50 / F ADM Date: 06/12/25 Loc: HO.XRAY Attending Dr: Clara Shearer MD Ordering Physician: Clara Shearer MD Date of Service: 06/12/25 Procedure(s): XR chest 2V Accession Number(s): [id number] cc: Clara Shearer MD Reason for Exam: [...] 06/12/25 1409 DD/ 1347 TD/TT: 06/12/25 1350 Apron Operator: Procedure Note Donotuseinterpreter, Image - 06/12/[address] [address] XRay Report Signed Patient: Antonina MartellR#: [id number] 2088 : 1975Acct:[id number] Age/Sex: 50 / FADM Date: 06/12/25 Loc: HO.XRAY Attending Dr: Clara Shearer MD Ordering Physician: Clara Shearer MD Date of Service: 06/12/25 Procedure(s): XR chest 2V Accession Number(s): [id number] cc: Clara Shearer MD Reason for Exam: [...] 06/12/25 1409 DD/ 1347 TD/TT: 06/12/25 1350 Apron Operator: Clara Shearer MD IMG XR PROCEDURES Final Result documented in this encounter Visit Diagnoses Diagnosis Chronic right shoulder pain- Primary Pain in joint, shoulder region Nodule of upper lobe of right lung documented in this encounter Additional Health Concerns Assessment Noted Time PHQ-9 Depression Total Score: 0 06/10/20 9:47 AM EST documented as of this encounter Care Teams Director Ship Relationship Specialty Start Date End Date Clara Shearer MD [address] [place] [address] PCP - General Family Medicine 07/24/18 documented as of this encounter
--- OUTSIDE RECORDS SUMMARY | 2025-07-15 07:52 | XMS_ITS | Encounter Summary ---
Author Organization [facility] Address [address] [facility] [address] [place] [address] Phone Care Team Providers Care Water Plant Maintenance Mechanic Name Role Phone Unknown, Unknown Primary Care Provider Clara Thompson MD Primary Care Provider [phone] Clara Shearer MD Primary Care Provider [phone] Encounter Details Date Type Department Care Team (Late st Contact Info) Description 02/24/2018 Procedure Pass [facility], Ct Scan - [facility] [address] [place] [address] Social History Tobacco Use Types Packs/Day Years [...] documented as of this encounter Care Teams Water Plant Maintenance Mechanic Relationship Specialty Start Date End Date Unknown, Unknown, PCP - General 02/24/18 11/09/20 Clara Shearer MD [address] [place] [address] PCP - General Family Medicine 11/10/20 02/15/22 Clara Shearer MD [address] [place] [address] PCP - General Family Medicine 02/16/22 documented as of this encounter Additional Source Comments The information contained in this document represents components of the legal health record. It is not the complete legal health record.[facility]
--- OUTSIDE RECORDS SUMMARY | 2025-07-15 07:52 | XMS_ITS | Encounter Summary ---
Author Organization [employer] Address [address] [facility] 7t [place] [address] Care Team Providers Care Special Education Educational Assistant Name Role Phone Clara Shearer MD Primary Care Provider [phone] Reason for Referral * Consultation (Routine) - Closed Specialty Diagnoses / Procedures Referred By Ron brewer Referred To Contact Orthopaedic Surgery Diagnoses Chronic right shoulder pain Clara Shearer MD [address] [place] [address] Phone: tel: fax: [facility] [address] [place] [address] Kathi [address] [place] [address] Phone: tel: Referral ID Status Reason Start Date Expiration Date V isits Requested Visits Authorized [id number] Closed Specialty Services Required 06/11/2025 06/11/2026 1 1 Encounter Details Date Type Department Care Team (Late st Contact Info) Description 06/11/2025 Orders Only [facility] [address] [place] [address] Clara Shearer MD [address] [place] [address] Chronic right shoulder pain (Primary [...] Description 07/22/2025 2:15 PM EST Office Visit [facility] [address] [place] [address] Clara Shearer MD [address] [place] [address] 07/22/2025 3:30 PM EST Office Visit [facility] ADULT DENTAL [address] [place] [address] Daina Mccollum DDS [address] [place] [address] 08/20/2025 2:15 PM EST Office Visit [facility] ADULT DENTAL [address] [place], [place] [phone] Katt Espinoza [address] [place], [place] [phone] Scheduled Referrals Name Type Priority Associated Diagnoses [...] as of this encounter Care Teams Special Education Educational Assistant Relationship Specialty Start Date End Date Clara Shearer MD [address] [place], [place] [phone] PCP - General Family Medicine 07/24/18 documented as of this encounter
--- OUTSIDE RECORDS SUMMARY | 2025-07-15 07:52 | XMS_ITS | Encounter Summary ---
Author Organization [facility] Address [address] [place] [address] Phone Care Team Providers Care Esl Professor Name Role Phone Unknown, Unknown Primary Care Provider Clara Thompson MD Primary Care Provider Clara Shearer MD Primary Care Provider [phone] Encounter Details Date Type Department Care Team (Late st Contact Info) Description 11/09/2020 Procedure Pass [facility], Ct Scan - [facility] [address] [place] [address] Social History Tobacco Use Types Packs/Day Years [...] documented as of this encounter Care Teams Esl Professor Relationship Specialty Start Date End Date Unknown, Unknown, PCP - General 02/24/18 11/09/20 Clara Shearer MD [address] [place] [address] PCP - General Family Medicine 11/10/20 02/15/22 Clara Shearer MD [address] [place] [address] PCP - General Family Medicine 02/16/22 documented as of this encounter Additional Source Comments The information contained in this document represents components of the legal health record. It is not the complete legal health record.[facility]
--- OUTSIDE RECORDS SUMMARY | 2025-07-15 07:52 | XMS_ITS | Encounter Summary ---
Author Organization [employer] Address [address] [place] [address] 7t [place] [address] Care Team Providers Care Hydroelectric Production Technician Name Role Phone Clara Shearer MD Primary Care Provider [phone] Reason for Referral * Imaging (Routine) - Authorized Specialty Diagnoses / Procedures Referred By Ron brewer Referred To Contact Radiology Diagnoses Transaminitis RUQ pain Procedures US Abdomen Comp w elastography Clara Shearer MD [address] [place] [address] Phone: tel: fax: [address] [address] Phone: tel: fax: Referral ID Status Reason Start Date Expiration Date V isits Requested Visits Authorized [id number] Authorized 06/11/2025 06/11/2026 1 1 Encounter Details Date Type Department Care Team (Late st Contact Info) Description 06/11/2025 Orders Only [facility] [address] [place] [address] Clara Shearer MD [address] [place] [address] Transaminitis (Primary Dx); RUQ pain [...] Description 07/22/2025 2:15 PM EST Office Visit [facility] MED[facility] [address] [place] [address] Clara Shearer MD [address] [place] [address] 07/22/2025 3:30 PM EST Office Visit [facility] ADULT DENTAL [address] [place] [address] Lyn-Méndez, Daina, DDS [address] [place] [address] 08/20/2025 2:15 PM EST Office Visit [facility] ADULT DENTAL [address] [place] [address] Olga, Katt [address] [place] [address] Scheduled Orders Name Type Priority Associated Diagnoses [...] EST) Hepatitis B Surface Ag Negative Negative [facility] Venous blood specimen / Unknown 06/18/2025 8:37 AM EST 06/18/2025 8:43 AM EST us Clara Shearer MD LAB BLOOD ORDERABLES Final Resul t [facility] [address] [place] [address] [phone] * Hepatitis C Antibody with Reflex to HCV, RNA, Quantitative, Real-Time PCR (06/18/2025 8:37 AM EST) Hepatitis C Antibody Nonreactive Nonreactive [facility] Comment:Antibodies to HCV no t detected; does not exclude early acuteHCV infection. Venous blood specimen / Unknown 06/18/2025 8:37 AM EST 06/18/2025 8:43 AM EST us Clara Shearer MD LAB BLOOD ORDERABLES Final Resul t Performing Organization Address [facility] Co de Phone Number [facility] [address] [place] [phone] * (ABNORMAL) Hepatic Function Panel (06/18/2025 8:37 AM EST) Bilirubin, Total 0.3 0.0 - 1.0 mg/dL [facility] Bilirubin, Direct 0.1 0.0 - 0.5 mg/dL [facility] Aspartate Amino Transferase 65(H) 5 - 31 U/L [facility] Alanine Aminotransferase 162(H) 0 - 31 U/L [facility] Total Protein 7.7 6.5 - 8.0 g/dL [facility] Albumin Level 4.5 3.5 - 5.0 g/dL [facility] Alkaline Phosphatase 121(H) 39 - 117 U/L [facility] Blood Venous blood specimen / Unknown 06/18/2025 8:37 AM EST 06/18/2025 8:43 AM EST us Clara Shearer MD LAB BLOOD ORDERABLES Final Resul t Performing Organization Address [facility] Co de Phone Number [facility] [address] [place] [phone] documented in this encounter Visit Diagnoses Diagnosis Transaminitis- Primary Nonspecific elevation of levels of transaminase or lactic acid dehydrogenase (LDH) RUQ pain Abdominal pain, right upper quadrant documented in this encounter Additional Health Concerns Assessment Noted Time PHQ-9 Depression Total Score: 0 06/10/20 25 9:47 AM EST documented as of this encounter Care Teams Hydroelectric Production Technician Relationship Specialty Start Date End Date Clara Shearer MD [address] [place] [address] PCP - General Family Medicine 07/24/18 documented as of this encounter
--- OUTSIDE RECORDS SUMMARY | 2025-07-15 07:52 | XMS_ITS | Encounter Summary ---
Author Organization [employer] Address [address] [facility] 7t [place] [address] Care Team Providers Care Integrated Logistics Operations Manager Name Role Phone Clara Shearer MD Primary Care Provider [phone] Reason for Visit * Reason Onset Date Comments Results 06/11/2025 Encounter Details Date Type Department Care Team ([facility] st Contact Info) Description 06/11/2025 Results Follow-Up [facility] [address] [place] [address] Clara Shearer MD [address] [place] [address] XR Shoulder 2+ Views Right Social History [...] TC placed to the pt with BLS mechanic helper #[id number] to inform of PCP message below indicating [...] Pt advised this can be done at [facility] or [facility]. Pt agreeable and advised that PCP will [...] EST Office Visit [facility] [address] [place] [address] Clara Shearer MD [address] [place] [address] 07/22/2025 3:30 PM EST Office Visit [facility] ADULT DENTAL [address] [place] [address] Lyn-MéndezLazaroDaina, DDS [address] [place] [address] 08/20/2025 2:15 PM EST Office Visit [facility] ADULT DENTAL [address] [place] [address] Olga, Katt [address] [place] [address] documented as of this encounter Visit Diagnoses Not on filedocumented in this encounter Additional Health Concerns Assessment Noted Time PHQ-9 Depression Total Score: 0 06/10/20 25 9:47 AM EST documented as of this encounter Care Teams Integrated Logistics Operations Manager Relationship Specialty Start Date End Date Clara Shearer MD [address] [place] [address] PCP - General Family Medicine 07/24/18 documented as of this encounter
--- OUTSIDE RECORDS SUMMARY | 2025-07-15 07:52 | XMS_ITS | Encounter Summary ---
Author Organization [employer] Address [address] [facility] 7t [place] [address] Care Team Providers Care Tomographic Tech Name Role Phone Clara Shearer MD Primary Care Provider [phone] Reason for Visit * Reason Comments Med Refill Encounter Details Date Type Department Care Team ([facility] st Contact Info) Description 05/16/2025 Refill [facility] [address] [place], [place] [phone] Clara Shearer MD [address] [place], [place] [phone] Social History Tobacco Use Types Packs/Day Years [...] 2:15 PM EST Office Visit [facility] [address] [place] [address] Clara Shearer MD [address] [place] [address] 07/22/2025 3:30 PM EST Office Visit [facility] ADULT DENTAL [address] [place] [address] Lyn-Méndez, Daina, DDS [address] [place] [address] 08/20/2025 2:15 PM EST Office Visit [facility] ADULT DENT[facility] [address] [place] [address] Olga, Katt [address] [place] [address] documented as of this encounter Visit Diagnoses Not on filedocumented in this encounter Additional Health Concerns Assessment Noted Time PHQ-9 Depression Total Score: 17 025 1:38 PM EDT documented as of this encounter Care Teams Tomographic Tech Relationship Specialty Start Date End Date Clara Shearer MD [address] [place] [address] PCP - General Family Medicine 07/24/18 documented as of this encounter"
--- OUTSIDE RECORDS SUMMARY | 2025-07-15 07:52 | XMS_ITS | Encounter Summary ---
Author Organization [employer] Address [address] [facility] 7t [place] [address] Care Team Providers Care Hot Pipe Gauger Name Role Phone Clara Shearer MD Primary Care Provider [phone] Encounter Details Date Type Department Care Team (Latest Contact Info) Description 06/11/2025 Results Follow-Up [facility] [address] [place], [place] [phone] Clara Shearer MD [address] [place], [place] [phone] Hemoglobin A1c, Comprehensive Metabolic Panel, Lipid Panel [...] PM EST Office Visit [facility] [address] [place] [address] Clara Shearer MD [address] [place] [address] 07/22/2025 3:30 PM EST Office Visit [facility] ADULT DENT[facility] [address] [place] [address] Lyn-MéndezDaina mathew, DDS [address] [place] [address] 08/20/2025 2:15 PM EST Office Visit [facility] [address] [place] [address] Katt Espinoza [address] [place] [address] documented as of this encounter Visit Diagnoses Diagnosis Transaminitis- Primary Nonspecific elevation of levels of transaminase or lactic acid dehydrogenase (LDH) documented in this encounter Additional Health Concerns Assessment Noted Time PHQ-9 Depression Total Score: 0 06/10/20 25 9:47 AM EST documented as of this encounter Care Teams Hot Pipe Gauger Relationship Specialty Start Date End Date Clara Shearer MD [address] [place] [address] PCP - General Family Medicine 07/24/18 documented as of this encounter
--- OUTSIDE RECORDS SUMMARY | 2025-07-15 07:52 | XMS_ITS | Encounter Summary ---
Author Organization [facility] Address [address] [place] [address] Phone Care Team Providers Care Sieve Repairer Name Role Phone Clara Shearer MD Primary Care Provider [phone] Encounter Details Date Type Department Care Team (Late st Contact Info) Description 05/04/2025 Procedure Pass [facility], Ct Scan - [address] [address] Social History Tobacco Use Types Packs/Day Years [...] on filedocumented in this encounter Care Teams Sieve Repairer Relationship Specialty Start Date End Date Clara Shearer MD [address] [place] [address] PCP - General Family Medicine 02/16/22 documented as of this encounter Additional Source Comments The information contained in this document represents components of the legal health record. It is not the complete legal health record.[facility]
--- OUTSIDE RECORDS SUMMARY | 2025-07-15 07:52 | XMS_ITS | Encounter Summary ---
Author Organization [facility] Address [address] [place] [address] Phone Care Team Providers Care Armed Custom Protection Officer Name Role Phone Clara Shearer MD Primary Care Provider [phone] Encounter Details Date Type Department Care Team (Late st Contact Info) Description 05/06/2025 Procedure Pass [facility] [address] [place] [address] Social History Tobacco Use Types Packs/Day Years [...] on filedocumented in this encounter Care Teams Armed Custom Protection Officer Relationship Specialty Start Date End Date Clara Shearer MD [address] [place] [address] PCP - General Family Medicine 02/16/22 documented as of this encounter Additional Source Comments The information contained in this document represents components of the legal health record. It is not the complete legal health record.[facility]
--- OUTSIDE RECORDS SUMMARY | 2025-07-15 07:52 | XMS_ITS | Encounter Summary ---
Author Organization [employer] Address [address] [facility] 7t [place] [address] Care Team Providers Care Paper Wood Cutter Name Role Phone Clara Shearer MD Primary Care Provider [phone] Encounter Details Date Type Department Care Team ([facility] st Contact Info) Description 06/12/2025 Results Follow-Up [facility] [address] [place], [place] [phone] Clara Shearer MD [address] [place], [place] [phone] XR Chest 2 Views Social History Tobacco [...] Description 07/22/2025 2:15 PM EST Office Visit [facility] [address] [place] [address] Clara Shearer MD [address] [place] [address] 07/22/2025 3:30 PM EST Office Visit [facility] ADULT DENTAL [address] [place] [address] Lyn-Méndez, Daina, DDS [address] [place] [address] 08/20/2025 2:15 PM EST Office Visit [facility] ADULT DENTAL [address] [place] [address] Olga, Katt [address] [place] [address] documented as of this encounter Visit Diagnoses Not on filedocumented in this encounter Additional Health Concerns Assessment Noted Time PHQ-9 Depression Total Score: 0 06/10/20 25 9:47 AM EST documented as of this encounter Care Teams Paper Wood Cutter Relationship Specialty Start Date End Date Clara Shearer MD [address] [place] [address] PCP - General Family Medicine 07/24/18 documented as of this encounter
--- OUTSIDE RECORDS SUMMARY | 2025-07-15 07:53 | XMS_ITS | Clinical Summary ---
Author Organization [facility] Address [address] [place] [address] Phone Care Team Providers Care Infection Control Practitioner Name Role Phone Clara Shearer MD Primary Care Provider [phone] Allergies No known active allergies Medications cholecalciferol [...] 2 Active warfarin (COUMADIN) 2 MG tablet Hold 06/13, then 6daily with 3mg on Monday. recheck 06/[address] [facility] 2 Active BABY ASPIRIN ORAL Take 81 mg by mouth daily. 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 5 Active fluoride, sodium, (PREVIDENT 5000 PLUS) 1.1 % Crea Place 1 mg onto teeth. 4 Active cyclobenzaprine (FLEXERIL) 5 MG tablet Take 5 mg by mouth 3 (three) times a day as needed for muscle spasms. 4 Active senna (SENOKOT) 8.6 mg tablet Take 2 tablets by mouth nightly at bedtime. 30 tablet 5 Active acetaminophen (TYLENOL) 325 mg tablet Take 2 tablets (650 mg total) by mouth every 6 (six) hours. 120 tablet 5 Active simethicone 125 mg Cap Take 1 capsule (125 mg total) by mouth 4 (four) times a day as needed (As needed for gas pains). 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 - following with [facility], last seen in Feb 2023 - [...] on warfarin - previously prescribed metoprolol by wire harness assembler; no longer on the medication due to hypotension / dizziness - continue following with wire harness assembler, [facility] Haynes - last TTE in January 2022, mild mitral valve stenosis - continue current treatment plan per cardiology Chronic anticoagulation 11/22/2022 Overview (11/28/2023): Last Assessment & Plan: - indication: Aortic valve replacement - medication warfarin - goal INR 2-3 - followed by [facility] anticoagulation [facility] - last INR was 2.0 on 03/01/23 - continue current management plan Abnormal uterine bleeding 11/08/2022 Overview (11/28/2023): Last Assessment & Plan: s/p Endometrial Curetting's, polyp, benign -Pt has follow-up appointment with CUSTODY OFFICER -Pt is on Coumadin -Pt requested Hysterectomy, pt will follow-up with CUSTODY OFFICER with possible hysterectomy in future Vitamin D deficiency 12/04/2018 Overview (11/28/2023): Last Assessment & Plan: -continue vitamin D supplement History of mechanical aortic valve replacement 0 04/07/2015 Overview (11/28/2023): Last Assessment & Plan: - 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 Mechanical aortic valve functioning normally. Moderate mitral valve stenosis. No regurgitation. - Continue warfarin - Continue SBE prophylaxis. Allergic rhinitis 12/09/2013 Aortic valve regurgitation 07/25/2013 Overview (11/28/2023): Last Assessment & Plan: - [facility], last seen in Aug 2023 - [...] Encounters Date Type Department Care Team Description 07/04/2025 10:45 AM EST Follow-Up [facility] [address], [address] [place] [address] Jaja Huber MD S/P hysterectomy with oophorectomy (Primary Dx) 06/13/2025 11:00 AM EST Home Care Visit [facility] [address] [place] [phone] Darlin Car, EVY SN OASIS DISCHARGE VISIT 06/13/2025 10:15 AM EST Home Care Visit [facility] [address] [place] [phone] Roseanne Marsh, PT PT EVALUATION 06/11/2025 Home Care Visit [facility] [address] [place] [phone] Darlin Car, RN TELEPHONE ENCOUNTER 06/11/2025 Home Care Visit [facility] [address] [place] [phone] Darlin Car, RN TELEPHONE ENCOUNTER 06/10/2025 7:00 AM EST Home Care Visit [facility] [address] [place] [phone] Joseph Cates LPN LPN HOME VISIT 06/04/2025 Episode Documentation Update [facility] [address] [place] [phone] 06/03/2025 10:30 AM EST Home Care Visit [facility] [address] [place] [phone] Chelsea Gutierrez RN SN HOME VISIT 06/03/2025 Home Care Visit [facility] [address] [place] [phone] Chelsea Gutierrez, RN CASE COMMUNICATION 06/02/2025 1:00 PM EST Follow-Up [facility] [address] [facility] [address], [address] [place] [address] Jaja Huber MD S/P hysterectomy (Primary Dx) 05/29/2025 11:00 AM EST Home Care Visit [facility] [address] [place], [place] [phone] Darlin Car, RN SN HOME VISIT 05/28/2025 9:30 AM EST Home Care Visit [facility] [address] [place], [place] [phone] Darlin Car, RN SN PRN HOME VISIT 05/28/2025 Documentation [facility] [address] [place] [address], [address] [place] [phone] Leslie Devlin RN 05/28/2025 Home Care Visit [facility] [address] [place] [address] Meliza Devi RN TELEPHONE ENCOUNTER 05/27/2025 12:00 PM EST Home Care Visit [facility] [address] [place] [address] Chelsea Gutierrez RN SN HOME VISIT 05/27/2025 Home Care Visit [facility] [address] [place] [address] Chelsea Gutierrez, RN CASE COMMUNICATION 05/23/2025 11:00 AM EDT Home Care Visit [facility] [address] [place] [address] Darlin Car, EVY SN HOME VISIT 05/23/2025 Refill [facility] [address] [place], [place] [address], Suite [facility] [place] [address] Bonnie Sosa, RN 05/22/2025 Episode Documentation Update [facility] [address] [place] [address] Megan Manning 05/21/2025 Episode Documentation Update [facility] [address] [place] [address] Guadalupe Conde 05/20/2025 11:50 AM EDT - 05/20/2025 11:59 PM EDT Hospital Encounter [facility] Specimen Processing [address] [place] [address] Jaja Huber DO Discharge Disposition: Home or Self Care 05/20/2025 11:30 AM EDT Home Care Visit [facility] [address] [place] [phone] Debra Salinas, EVY SN HOME VISIT 05/20/2025 Transcribe Orders [facility] [address] [place] [address] Jaja Huber DO Urinary tract infection without hematuria, site unspecified (Primary Dx) 05/17/2025 Home Care Visit [facility] [address] [place] [phone] Alejandrina Hall, [employer]AL [employer] [facility] CLINICAL COMMUNICATION 05/16/2025 5:00 AM EDT Home Care Visit [facility] [address] [place] [phone] Joseph Cates LPN LPN HOME VISIT 05/14/2025 Telephone [facility] [address] [address], [address] [place] [address] Bonnie Sosa, EVY FMLA paperwork 05/14/2025 Home Care Visit [facility] [address] [place] [address] Katy Anderson RN CASE COMMUNICATION 05/14/2025 Telephone [facility] [address], [address] [place] [address] Leslie Devlin, EVY 05/14/2025 Orders Only [facility] [address] [address], [address] [place] [address] Leslie Devlin, EVY Hematuria (Primary Dx) 05/13/2025 Home Care Visit [facility] [address] [place], [place] [phone] Joseph Cates LPN LPN HOME VISIT 05/12/2025 Episode Documentation Update [facility] [address] [place], [place] [phone] 05/10/2025 7:30 AM EDT Home Care Visit [facility] [address] [place], [place] [phone] Darlin Car, EVY SN OASIS START OF CARE (SOC) 05/10/2025 Plan of Care Documentation [facility] [address] [place] [address] 05/08/2025 Orders Only [facility] [address] [place] [address] Homehealth, Suresh Thomas MD 05/06/2025 11:14 AM EDT Anesthesia Event [facility] Periop [address] [place] [address] Jovana Bunn MBBS, MD McGowan, Katelyn Anne, CRNA 05/06/2025 11:08 AM EDT - 05/06/2025 1:26 PM EDT Surgery [facility] Periop [address] [place] [address] Jaja Huber MD LAPAROSCOPIC TOTAL HYSTERECTOMY, BILATERAL SALPINGECTOMY, RIGHT OOPHERECTOMY, OMENTAL BIOPSY 05/06/2025 Procedure Pass [facility] Periop [address] [place] [address] 05/05/2025 Procedure Pass [facility] [address] [place] [address] 05/04/2025 8:54 PM EDT - 05/09/2025 11:16 AM EDT Hospital Encounter [facility] CWN [address]N [address] [place] [address] Benita Webster MD Davis, Michelle R, MD Kopp, Joseph W, MD Kosowsky, Raul Saul MD Discharge Disposition: Home-Health Care Svc 05/04/2025 1:16 PM EDT - 05/04/2025 7:05 PM EDT Emergency [facility] Emergency [address] [place] [address] Discharge Disposition: Critical Access Hospital 05/04/2025 Procedure Pass [facility], Ct Scan - [facility] [address] [place] [address] from Last 3 Months Immunizations Immunization Administration [...] Sign Reading Time Taken Comments Blood Pressure 132/64 07/04/2025 10:32 AM EST Pulse 65 07/04/2025 10:32 AM EST Temperature 36.4 C (97.5 F) 07/04/2025 10:32 AM EST Respiratory Rate 18 06/13/2025 11:45 AM EST Oxygen Saturation 98% 06/13/2025 11:45 AM EST Inhaled Oxygen Concentration - - Weight 68 kg (150 lb) 07/04/2025 10:32 AM EST Height 149.9 cm (4' 11 ) 07/04/2025 10:32 AM EST Body Mass Index 30.3 07/04/2025 10:32 AM EST Plan of Treatment Health Maintenance Due Date Last Done Comments DEPRESSION SCREENING 1989 HEPATITIS C SCREENING 1995 HIV ONE-TIME SCREENING (18-65 YEARS) 1995 PAP SMEAR 1998 COLOGUARD 2022 COLONOSCOPY 2022 COLORECTAL CANCER SCREENING 2022 FIT TEST 2022 FOBT 2022 SIGMOIDOSCOPY 2022 VIRTUAL COLONOSCOPY 2022 MAMMOGRAM 12/23/2024 12/23/2022, 08/2022, 09/05/2019 COVID-19 VACCINE ( season) 2025 12/30/2024, [...] this topic Medical Devices Implanted Type Area Outside Sales Consultant Device Identifier Shelf Expiration Date Model / Serial / Lot Prosthetic Valve Prosthetic Valve Aorta Description:Aortic valve rep lacement in 2009 pt does not know which type of aortic valve was implanted Device Contraceptive 52mg Iud Mirena - Must Order In Multiples Of 5 - [id number] Implanted:Qty: 1 on 08/19/2022 by Ronald Estrada MD at [facility] N/A: Uterus [facility] 06/22/2024 [id number] / / [id number] Procedures Procedure Name Priority Date/Time Associated Diagnosis [...] PLACEMENT Routine 05/06/2025 11:2 5 AM EDT [place] LAP,DIAGNOSTIC ABDOMEN 05/06/2025 10:42 AM EDT Pelvic mass PTT Timed 05/06/2025 9:52 AM EDT POCT GLUCOSE Routine 05/06/2025 8:44 AM EDT PT-INR Routine 05/06/2025 5:17 AM EDT CBC Routine 05/06/2025 5:17 AM EDT BASIC METABOLIC PANEL (BMP) Routine 05/06/2025 5:17 AM EDT PTT Timed 05/06/2025 2:45 AM EDT NON-CUSTODY OFFICER CYTOLOGY, NON CSF, NON URINE Routine 05/06/2025 [...] * Urine Culture (05/20/2025 11:54 AM EDT) Special Requests None 05/20/2025 11:54 AM EDT [facility] Urine Culture <10,000 colony forming units per mL 05/21/2025 11:43 AM EDT [facility] Urine (Urine) 05/20/2025 11: 54 AM EDT 05/20/2025 11:59 AM EDT Jaja Huber DO LAB MICROBIOLOGY CULTURE ORDER DOREEN Final Result [facility] [address] [place] [address] * (ABNORMAL) PT-INR (05/09/2025 5:24 AM EDT) Only the most recent of12 resultswithin the time period is included. PT 15.2(H) 10.0 - 13.0 sec [facility] CLINICAL [facility] INR 1.3(H) 0.9 - 1.1 [facility] Blood 05/09/2025 5:24 AM EDT 05/09/2025 6:12 AM EDT Leslie Perez PA-C LAB BLOOD BKR ORDERA BLES Final Result Performing Organization Address City/[facility]/ZIP Co de Phone Number [facility] [address] [place] [address] * (ABNORMAL) CBC (05/09/2025 5:24 AM EDT) Only the most recent of10 resultswithin the time period is included. WBC 4.64 4.00 - 11.00 K/uL [facility] RBC 3.41(L) 4.00 - 5.20 M/uL [facility] HGB 10.4(L) 12.0 - 16.0 g/dL [facility] HCT 32.3(L) 36.0 - 46.0 % [facility] PLT 316 150 - 450 K/uL [facility] MCV 94.7 80.0 - 100.0 fL [facility] MCH 30.5 27.0 - 31.0 pg [facility] MCHC 32.2 32.0 - 36.0 g/dL [facility] RDW 14.3 11.5 - 14.5 % [facility] MPV 9.0 8.4 - 12.0 fL [facility] NRBC 0.00 0.00 /100 WBCs [facility] ABSOLUTE NRBC 0.00 0.00 K/uL [facility] CL IN[facility] Blood 05/09/2025 5:24 AM EDT 05/09/2025 6:12 AM EDT Jaja Huber MD LAB BLOOD BKR ORDERABLES Fin al Result Performing Organization Address City/[facility] Co de Phone Number [facility] [address] [place] [phone] * Magnesium (05/09/2025 5:24 AM EDT) Only the most recent of5 resultswithin the time period is included. MAGNESIUM 2.0 1.7 - 2.6 mg/dL [facility] Blood 05/09/2025 5:24 AM EDT 05/09/2025 6:12 AM EDT Leslie Perez PA-C LAB BLOOD BKR ORDERA BLES Final Result Performing Organization Address [facility] de Phone Number [place] [phone] * Basic metabolic panel (05/09/2025 5:24 AM EDT) Only the most recent of7 resultswithin the time period is included. SODIUM 139 136 - 145 mmol/L [facility] POTASSIUM 3.9 3.4 - 5.1 mmol/L [facility] CHLORIDE 105 98 - 107 mmol/L [facility] CO2 24 22 - 31 mmol/L [facility] BUN 9 6 - 23 mg/dL [facility] CREATININE 0.50 0.50 - 1.20 mg/dL [facility] GLUCOSE 87 70 - 100 mg/dL [facility] CALCIUM 9.1 8.8 - 10.7 mg/dL [facility] EGFR 116 >59 mL/min/1.7 3m2 [facility] Comment:Estimated glomerular filtration rate calculated using the CKD-EPI refit equation. ANION GAP 10 7 - 17 mmol/L [facility] Blood 05/09/2025 5:24 AM EDT 05/09/2025 6:12 AM EDT Leslie Perez PA-C LAB BLOOD BKR ORDERA BLES Final Result Performing Organization Address [facility] de Phone Number [facility] [address] [place] [phone] * (ABNORMAL) PTT (05/08/2025 9:14 AM EDT) Only the most recent of11 resultswithin the time period is included. APTT 74.7(H) 24.0 - 37.5 sec [facility] Comment:Emicizumab (Hemlibra ) treatment can result in falsely lowered aPTT test results. Blood 05/08/2025 9:14 AM EDT 05/08/2025 9:19 AM EDT Jaja Huber MD LAB BLOOD BKR ORDERABLES Fin al Result Performing Organization Address [facility] de Phone Number [facility] [address] [place] [address] * ECG 12-LEAD (05/07/2025 8:36 PM EDT) Only the most recent of2 resultswithin the time period is included. Ventricular Rate EKG/MIN 70 BPM [facility] Atrial Rate 70 BPM [facility] NH Interval 156 ms [facility] QRS Duration 122 ms [facility] QT Interval 428 ms [facility] QTC Interval 462 ms [facility] P [place] 16 degrees [facility] R Wave [place] 50 degrees [facility] T Wave [place] 81 degrees [facility] 05/07/2025 8:36 PM EDT Narrative [facility] - 05/21/2025 2:29 PM EDT Normal sinus rhythm Right bundle branch block Abnormal ECG When compared with ECG of 04-May-2025 21:29, No significant change was found us Jaja Huber MD ECG ORDERABLES Final Result [facility] * (ABNORMAL) DIC screen (05/07/2025 8:26 AM EDT) Pathologist [facility] PT 12.3 10.0 - 13.0 sec [facility] INR 1.1 0.9 - 1.1 [facility] APTT 27.9 24.0 - 37.5 sec [facility] Comment:Emicizumab (Hemlibra ) treatment can result in falsely lowered aPTT test results. FIBRINOGEN 774(H) 200 - 400 mg/dL [facility] Blood 05/07/2025 8:26 AM EDT 05/07/2025 8:30 AM EDT Leslie Perez PA-C LAB BLOOD BKR ORDERA BLES Final Result Performing Organization Address [facility] Co de Phone Number [facility] [address] [place] [phone] * (ABNORMAL) POCT Glucose (05/06/2025 2:02 PM EDT) Only the most recent of3 resultswithin the time period is included. [facility] Glucose, POCT 166(H) 70 - 100 mg/dL [facility] 05/06/2025 2:02 PM EDT 05/06/2025 2:04 PM EDT us Jaja Huber MD POINT OF CARE TEST ORDERABLE S Final Result Performing Organization Address City/[facility] Co de Phone Number [facility] N[facility] [address] [place] [phone] * Prepare RBC, 2 Units (05/06/2025 2:01 PM EDT) [facility] Product Code [id number] 05/06/2025 2:01 PM EDT [facility] Unit Number [id number] 05/06/20 2:01 PM EDT [facility] ABO of Unit O 05/06/2025 2:01 PM EDT [facility] Rh of Unit POS 05/06/2025 2:01 PM EDT [facility] Crossmatch Interpretation Compatible 05/06/2025 8:29 AM EDT [facility] Product Status No Longer Ready 05/06 2:01 PM EDT [facility] Expiration Date/Time [id number] 05/06/2025 2:01 PM EDT [facility] Blood Type Barcode 5100 05/06/2025 2:01 PM EDT [facility] Unit Volume 300 mL 05/06/2025 2:01 PM EDT [facility] Product Code [id number] 05/06/2025 2:01 PM EDT [facility] Unit Number [id number] 05/06/20 2:01 PM EDT [facility] ABO of Unit O 05/06/2025 2:01 PM EDT [facility] Rh of Unit POS 05/06/2025 2:01 PM EDT [facility] Crossmatch Interpretation Compatible 05/06/2025 8:29 AM EDT [facility] Product Status No Longer Ready 05/06 2:01 PM EDT [facility] Expiration Date/Time [id number] 05/06/2025 2:01 PM EDT [facility] Blood Type Barcode 5100 05/06/2025 2:01 PM EDT [facility] Unit Volume 300 mL 05/06/2025 2:01 PM EDT [facility] us Erynsteve Marcos CRNA BLOOD BANK PRODUCT ORD ERABLES Final Result [facility] [address] [place] [address] * (ABNORMAL) Fibrinogen (05/06/2025 2:00 PM EDT) FIBRINOGEN 749(H) 200 - 400 mg/dL [facility] Blood 05/06/2025 2:00 PM EDT 05/06/2025 2:05 PM EDT us Jaja Huber MD LAB BLOOD BKR ORDERABLES Fin al Result Performing Organization Address [facility] Co de Phone Number [facility] [address] [place] [phone] * ANES ETT DOUBLE LUMEN - AIRWAY LDA (05/06/2025 11:25 AM EDT) Narrative Eryn Marcos CRNA - 05/06/2025 11:25 AM EDT Eryn Marcos CRNA 05/06/2025 11:50 AM Airway Placement Procedure Note: Patient was not difficult to intubate. Procedure performed by: fellow/resident/SHEARING SHED WORKER and anesthesiologist Anesthesiologist: Jovana Bunn MBBS, MD Fellow/Resident/SHEARING SHED WORKER: Eryn Marcos CRNA Airway procedure initiated at:05/06/2025 [...] clear lung sounds. us Jovana AGUERO MD [place] ANESTHESIA Fin al Result * Non-National Accounts Sales Cytology (05/06/2025 12:00 AM EDT) Results\Interpreta tion NON-DIAGNOSTIC SPECIMEN. [facility] Final Diagnosis Abundant blood. [facility] Notes and Recommendations NOTE: Insufficient cellular material for evaluation. Appropriate follow-up is recommended. [facility] Total Slides TotSlide1 [facility] CYT OLOGY LAB[facility] Procedure Comments ProcThinPrep (non-National Accounts Sales) - [facility] CYTOLOGY LABORATORY Report Accession No: [id number] Date: 1975 Sex: F [facility] Department of Pathology [address] [place] [address] CLIA License No.: [id number] Catalyst Recovery Operator: Jack Clark MD, PhD Physician: JAJA HUBER MD Procedure Date: 05/06/2025 Ice Cream Truck Driver: KADEN Resendez(ASCP) Pathologist: Debbie Merritt M.D. PERITONEAL [...] on Friday May 09, 2025 at 05:38:55PM [facility] Conversion Type (Peritoneum) 05/06/2025 05/06/2025 us Jaja Huber MD CYTOLOGY ORDERABLES Edited R esult - Final [facility] [address] [place] [address] * Anatomic Pathology (Non-MGB) (05/06/2025 12:00 AM EDT) 05/06/2025 05/06/2025 [facility] - 05/27/2025 9:24 PM EST CASE: [id number] PATIENT: OMAR MARTELL Date: 1975 Sex: Female [facility] Department of Pathology [address] [place] [address] License No.: [id number] Catalyst Recovery Operator: Dr. Tani Briceno M.D., Ph.D. Physician: JAJA HBUER MD Procedure Date: 05/06/2025 Resident: Chris Dietrich MD, PhD Pathologist: Magdaleno Newell M.D. PATHOLOGIC DIAGNOSIS: A. UTERUS, CERVIX, LEFT [...] device (3.4 x 3.3 x 0.3 cm). Puppet Engineer sections are submitted. A1: Anterior cervix, 1 [...] a dark red, homogenous, hemorrhagic soft tissue. Puppet Engineer section is submitted as FSB1. There is scant parnell-pink fibrous stroma remaining. The fallopian tube is pink-purple and smooth. Sectioning reveals a patent lumen. Gross photographs are taken. Puppet Engineer sections are submitted as follows: B1: Remnant [...] No masses or nodules are grossly noted. Puppet Engineer sections are submitted as follows: C1-C5: Omentum [...] MD LAB PATHOLOGY ORDERABLES Fin al Result [facility] [address] [place] [address] * TTE COMPREHENSIVE (05/05/2025 2:07 PM EDT) [...] 73 bpm Anatomical Region Laterality Modality Heart [facility] Narrative 05/05/2025 4:09 PM EDT Left [...] (3). Comparison Findings There are no prior [facility] [facility] studies for comparison. us Jaja Huber MD CV ECHO ORDERABLES Final Res ult * Inhibin A & B, tumor marker (05/05/2025 8:54 AM EDT) INHBN A TUMOR ANTELMO. 9.5 pg/mL [facility] MED/PATH [facility] [place] Comment: (NOTE) REFERENCE VALUE <98 (Premenopausal) <5.0 (Postmenopausal) ADDITIONAL INFORMATION This test has been modified from the training and documentation specialist's instructions. Its performance characteristics were determined by [facility] in a manner consistent with CLIA requirements. This test has not been cleared or approved by the U.S. Food and Drug Administration. The testing method is an immunoenzymatic assay manufactured by [employer] and performed on the [employer] DxI 800. Values obtained with different assay methods or kits may be different and cannot be used interchangeably. Test results cannot be interpreted as absolute evidence for the presence or absence of malignant disease. Inhibin A values are not interpretable in females for the investigation of malignant disease. INHIBN B, INFERTILITY <10 pg/mL [facility] MED/PATH [facility] [place] Comment: (NOTE) REFERENCE VALUE Premenopausal: <108 pg/mL (Follicular) <80 pg/mL (Luteal) Postmenopausal: <12 pg/mL ADDITIONAL INFORMATION The testing method is a manual immunoenzymatic assay manufactured by [employer] Values obtained with different assay methods or kits may be different and cannot be used interchangeably. If this test is being ordered as a tumor marker, results cannot be interpreted as absolute evidence for the presence or absence of malignant disease. This test was developed and its performance characteristics determined by [facility] in a manner consistent with CLIA requirements. This test has not been cleared or approved by the U.S. Food and Drug Administration. Blood 05/05/2025 8:54 AM EDT 05/05/2025 9:03 AM EDT Jaja Huber MD LAB BLOOD ORDERABLES Final R esult Performing Organization Address [facility] Co de Phone Number [facility] [address] [address] [place] [address] * LDH (05/05/2025 8:54 AM EDT) LDH 212 135 - 225 U/L [facility] Blood 05/05/2025 8:54 AM EDT 05/05/2025 9:03 AM EDT Jaja Huber MD LAB BLOOD BKR ORDERABLES Fin al Result Performing Organization Address City/[facility]/ZIP Co de Phone Number [facility] [address] [place] [address] * CA-19-9 (05/05/2025 8:54 AM EDT) CA 19-9 <1 0 - 35 U/mL [facility] Blood 05/05/2025 8:54 AM EDT 05/05/2025 9:03 AM EDT Jaja Huber MD LAB BLOOD BKR ORDERABLES Fin al Result Performing Organization Address City/[facility]/ZIP Co de Phone Number [facility] [address] [place] [address] * HCG (tumor marker) (05/05/2025 8:54 AM EDT) BETA HCG <1.0 mIU/mL [facility] Comment: Reference Ranges: Female: Premenopausal, Non: 0-5.0 Postmenopausal: 0-8.0 Blood 05/05/2025 8:54 AM EDT 05/05/2025 9:03 AM EDT Jaja Huber MD LAB BLOOD ORDERABLES Final R esult Performing Organization Address [facility] Co de Phone Number [facility] [address] [place] [address] * AFP (non-maternal specimens) (05/05/2025 8:54 AM EDT) AFP (NON-MATERNAL) <1.8 0 - 8.3 ng/mL [facility] Blood 05/05/2025 8:54 AM EDT 05/05/2025 9:03 AM EDT Jaja Huber MD LAB BLOOD BKR ORDERABLES Fin al Result Performing Organization Address [facility] Co de Phone Number [facility] [address] [place] [address] * Estradiol (05/05/2025 8:54 AM EDT) ESTRADIOL 7 pg/mL [facility] Comment: Follicular 27-156 Mid-Cycle 50-308 Luteal 35-223 Post-Menopausal 0-47 , 1st Trimester [phone] , 2nd Trimester [phone] , 3rd Trimester [phone] This result is quantitatively invalid in patients being treated with fulvestrant(fasolodex). Blood 05/05/2025 8:54 AM EDT 05/05/2025 9:03 AM EDT us Jaja Huber MD LAB BLOOD BKR ORDERABLES Fin al Result Performing Organization Address City/[facility] Co de Phone Number [facility] [address] [place] [address] * Carcinoembryonic antigen (CEA) (05/05/2025 8:54 AM EDT) CEA 1.5 0 - 3.7 ng/mL [facility] Comment: CEA REFERENCE RANGE: NON-SMOKERS: < 3.8 ng/mL SMOKERS: < 5.0 ng/mL Blood 05/05/2025 8:54 AM EDT 05/05/2025 9:03 AM EDT us Jaja Huber MD LAB BLOOD BKR ORDERABLES Fin al Result Performing Organization Address [facility]/ZIP Co de Phone Number [facility] [address] [place] [address] * US PELVIS TRANSABDOMINAL PLUS TRANSVAGINAL (05/04/2025 10:35 PM EDT) MGB IMG BARBERING INSTRUCTOR COMMENT Please see finalized report. [facility] Anatomical Region Laterality Modality Pelvis, Uterus/Adnexa [...] initiated on 05/04/2025 11:20 PM, Message ID [id number]. A clinically significant result was initiated on 05/04/2025 11:22 PM, Message ID [id number]. Narrative 05/04/2025 11:23 PM EDT US PELVIS [...] and left adnexa. Procedure Note Jl Gutierrez, [facility] - 05/04/2025 US PELVIS TRANSABDOMINAL [...] was initiated on 05/04/2025 11:20 PM,Message ID [id number]. A clinically significant result was initiated on 05/04/2025 11:22 PM,Message ID [id number]. Brionna Stone PA-C IMG US PELVIS Final Result * (ABNORMAL) LFTs (hepatic panel) (05/04/2025 9:34 PM EDT) Only the most recent of2 resultswithin the time period is included. TOTAL PROTEIN 6.2(L) 6.4 - 8.3 g/dL [facility] ALBUMIN 3.3(L) 3.5 - 5.2 g/dL [facility] GLOBULIN 2.9 2.2 - 4.2 g/dL [facility] AST 18 10 - 50 U/L [facility] ALT 25 10 - 50 U/L [facility] ALKALINE PHOSPHATASE 54 35 - 130 U/L [facility] TOTAL BILIRUBIN 0.7 0.0 - 1.0 mg/dL [facility] DIRECT BILIRUBIN 0.2 0.0 - 0.3 mg/dL [facility] Blood 05/04/2025 9:34 PM EDT 05/04/2025 9:47 PM EDT Brionna Stone PA-C LAB BLOOD BKR ORDERABLES Danielle doloey Result [facility] [address] [place] [address] * (ABNORMAL) CBC and differential (05/04/2025 9:34 PM EDT) Only the most recent of3 resultswithin the time period is included. WBC 9.31 4.00 - 11.00 K/uL [facility] RBC 2.97(L) 4.00 - 5.20 M/uL [facility] HGB 9.3(L) 12.0 - 16.0 g/dL [facility] HCT 27.7(L) 36.0 - 46.0 % [facility] PLT 150 150 - 450 K/uL [facility] MCV 93.3 80.0 - 100.0 fL [facility] MCH 31.3(H) 27.0 - 31.0 pg [facility] MCHC 33.6 32.0 - 36.0 g/dL [facility] RDW 14.5 11.5 - 14.5 % [facility] MPV 9.3 8.4 - 12.0 fL [facility] NRBC 0.00 0.00 /100 WBCs [facility] ABSOLUTE NRBC 0.00 0.00 K/uL [facility] DIFF METHOD Auto [facility] NEUTS 80.1(H) 48.0 - 76.0 % [facility] LYMPHS 11.5(L) 18.0 - 41.0 % [facility] MONOS 7.5 4.0 - 11.0 % [facility] EOS 0.4 0.0 - 5.0 % [facility] BASOS 0.1 0.0 - 1.5 % [facility] % IMMATURE GRANS 0.4 0.0 - 0.9 % [facility] ABSOLUTE NEUTS 7.45 1.92 - 7.60 K/uL [facility] Comment:1.21-5.39 cells/KL i s the reference range for individuals with the Falk null phenotype ABSOLUTE LYMPHS 1.07 0.72 - 4.10 K/uL [facility] ABSOLUTE MONOS 0.70 0.16 - 1.10 K/uL [facility] ABSOLUTE EOS 0.04 0.00 - 0.50 K/uL [facility] ABSOLUTE BASOS 0.01 0.00 - 0.15 K/uL [facility] ABS IMMATURE GRANS 0.04 0.00 - 0.09 K/uL [facility] ABSOLUTE NEUTROPHIL COUNT 7.45 1.92 - 7.60 K/uL [facility] Comment: Automated cell count. Manual ANC may differ if performed. 1.21-5.39 cells/KL is the reference range for individuals with the Falk null phenotype Blood 05/04/2025 9:34 PM EDT 05/04/2025 9:47 PM EDT Result [facility] Brionna Stone PA-C LAB BLOOD BKR ORDERABLES Danielle l Result Performing Organization Address [facility] Co de Phone Number [facility] [address] [place] [address] * Type and Screen (ABO,Rh,Antibody Screen) (05/04/2025 9:34 PM EDT) Expiration Date of Sample 05/07/2025 11:59 PM 05/04/2025 11:05 PM EDT [facility] Resulting Agency [facility] ABO Type O 05/04/2025 11:05 PM EDT [facility] Rh Type Positive 05/04/2025 11:05 PM EDT [facility] Antibody Screen Negative 05/04/2025 11:05 PM EDT [facility] Blood 05/04/2025 9:34 PM EDT 05/04/2025 9:50 PM EDT Result [facility] Brionna Stone PA-C LAB BLOOD BANK TEST ORDERABLE S Final Result Performing Organization Address [facility] Co de Phone Number [facility] [address] [place] [address] * Lipase (05/04/2025 9:34 PM EDT) Only the most recent of2 resultswithin the time period is included. LIPASE 22 13 - 60 U/L [facility] Comment: Blood 05/04/2025 9:34 PM EDT 05/04/2025 9:47 PM EDT Result [facility] Brionna Stone PA-C LAB BLOOD BKR ORDERABLES Danielle l Result [facility] [address] [place] [address] * HUMAN EPIDIDYMIS PROTEIN 4, BLOOD (05/04/2025 5:06 PM EDT) Human epididymis protein 4 54 <=140 pmol/L [facility] [address] Comment: (NOTE) ADDITIONAL INFORMATION [...] Warren PA-C LAB BLOOD ORDERABLES Final Result [facility] MED/PATH [facility] [address] [place] [address] * Hold Specimen In Blood Bank (05/04/2025 5:06 PM EDT) Expiration Date of Sample 05/07/2025 ,1114 [facility] Resulting Agency [facility] Blood 05/04/2025 5:06 PM EDT 05/04/2025 5:13 PM EDT us Ashleigh Warren PA-C LAB BLOOD BANK TEST ORDERAB LES Final Result [facility] [address] [place] [address] * CA-125 (05/04/2025 5:06 PM EDT) CA 125 28.5 0 - 35 U/mL [facility] Comment: Test Methodology Yeny e801 Patient results determined by assays using different manufacturers or methods may not be comparable. Blood 05/04/2025 5:06 PM EDT 05/04/2025 5:13 PM EDT us Ashleigh Warren PA-C LAB BLOOD BKR ORDERABLES Fi nal Result [address] [address] * CT ABDOMEN/PELVIS WITH CONTRAST (05/04/2025 3:16 PM EDT) MGB IMG BARBERING INSTRUCTOR COMMENT ovarian mass vs hemorrhagic cyst vs torsion. free fluid + blood products, indeterminate for carcinomatosis [facility] Anatomical Region Laterality Modality Abdomen, Pelvis [...] initiated on 05/04/2025 4:42 PM, Message ID [id number]. ATTESTATION: I, Jack Bowers as teaching physician, [...] was initiated on 05/04/2025 4:42 PM,Message ID [id number]. ATTESTATION: I, Jack Bowers as teaching physician, have reviewed theimages for this case and if necessary edited the report originally createdby Sophie Merino MD. us Ashleigh Warren PA-C IMG CT ABD/PELVIS Final Res ult * HCG, serum qualitative (05/04/2025 1:40 PM EDT) HCG, QUALITATIVE Negative Negative IU/L [facility] Blood 05/04/2025 1:40 PM EDT 05/04/2025 1:51 PM EDT us Alberto Vasques MD LAB BLOOD BKR ORDERABLES Final R esult [address] [address] * (ABNORMAL) Urinalysis w/reflex Urine Culture (05/04/2025 1:19 PM EDT) COLOR Yellow Yellow [facility] CLARITY Clear [facility] GLUCOSE Negative Negative [facility] BILI Negative Negative [facility] KETONES Negative Negative [facility] SPECIFIC GRAVITY 1.010 1.005 - 1.030 [facility] BLOOD 1+(A) Negative [facility] PH 7.5 5.0 - 8.0 [facility] Protein-UA Negative Negative [facility] NITRITE Negative Negative [facility] Leukocyte esterase, ur Negative Negative [facility] Urine (Urine) 05/04/2025 1:1 9 PM EDT 05/04/2025 1:44 PM EDT us Alberto Vasques MD LAB URINE ORDERABLES Final Resul t Performing Organization Address [facility] Co de Phone Number [address] [address] * (ABNORMAL) Urine sediment (05/04/2025 1:19 PM EDT) WBC 0-4(A) NONE SEEN /hpf [facility] RBC 3-5(A) NONE SEEN /hpf [facility] URINE EPITHELIAL 0-4(A) NONE SEEN [facility] MUCUS NONE SEEN NONE SEEN /hpf [facility] BACTERIA Trace(A) NONE SEEN /hpf [facility] 05/04/2025 1:19 PM EDT 05/04/2025 1:44 PM EDT us Alberto Vaqsues MD LAB URINE ORDERABLES Final Resul t Performing Organization Address [facility] Co de Phone Number [address] [address] from Last 3 Months Insurance [employer] NON NSPG PCP [employer] NON NSPG PCP [employer] [facility] NON NSPG PCP [employer] CONNE[employer]CARE [facility] NON NSPG PCP S[employer] NON NSPG PCP [employer] [facility] NON NSPG PCP [employer] [facility] NON NSPG PCP S[employer] NON NSPG PCP [employer] [facility] NON NSPG PCP [employer] Advance Directives For more information, please contact: [phone] (9AM - 5PM [facility], Monday-Monday) * Full Code (Latest Code Status on File) Date Activated Date Inactivated Comments 08/19/2022 9:51 AM Question Answer Comments Code Status Confirmed With: Patient Care Teams Infection Control Practitioner Relationship Specialty Start Date End Date Clara Shearer MD [address] [place] [address] PCP - General Family Medicine 02/16/22 Additional Source Comments The information contained in this document represents components of the legal health record. It is not the complete legal health record.[facility]
--- OUTSIDE RECORDS SUMMARY | 2025-07-15 07:53 | XMS_ITS | Encounter Summary ---
Author Organization [facility] Address [address] [place] [address] 7 [place] [address] Care Team Providers Care Metallurgical Analyst Name Role Phone Clara Shearer MD Primary Care Provider [phone] Encounter Details Date Type Department Care Team (Late st Contact Info) Description 07/20/2022 Abstract [facility] MEDICINE [address] [place] [address] [phone] Clara Shearer MD [address] [place] [address] Social History Tobacco Use Types Packs/Day Years [...] Description 07/22/2025 2:15 PM EST Office Visit [facility] MED[facility] [address] [place] [address] [phone] Clara Shearer MD [address] [place] [address] 07/22/2025 3:30 PM EST Office Visit [facility] ADULT DENTAL [address] [place] [address] Daina Mccollum DDS [address] [place] [address] 08/20/2025 2:15 PM EST Office Visit [facility] [address] [place], [place] [phone] Katt Espinoza [address] [place] [address] documented as of this encounter Visit Diagnoses Not on filedocumented in this encounter Care Teams Metallurgical Analyst Relationship Specialty Start Date End Date Clara Shearer MD [address] [place] [address] PCP - General Family Medicine 07/24/18 documented as of this encounter
--- OUTSIDE RECORDS SUMMARY | 2025-07-15 07:53 | XMS_ITS | Encounter Summary ---
Author Organization [employer] Address [address] [place] [address] [address], [place] [address] Care Team Providers Care Scaffold Worker Name Role Phone Clara Shearer MD Primary Care Provider [phone] Reason for Referral * Consultation (Routine) - Closed Specialty Diagnoses / Procedures Referred By Ron brewer Referred To Contact Physical Therapy Diagnoses Right hip pain Chronic right-sided low back pain, unspecified whether sciatica present Clara Shearer MD [address] [place] [address] Phone: tel: fax: AT Physical Therapy - [address] [address] Phone: tel: fax: Referral ID Status Reason Start Date Expiration Date V isits Requested Visits Authorized [id number] Closed Specialty Services Required 11/14/2023 11/13/2024 1 1 Encounter Details Date Type Department Care Team (Late st Contact Info) Description 11/14/2023 Orders Only [facility] MED[facility] [address] [place], [place] [phone] Clara Shearer MD [address] [place], [place] [phone] Right hip pain (Primary Dx); Chronic right-sided [...] Description 07/22/2025 2:15 PM EST Office Visit [facility] MEDIC[facility] [address] [place] [address] Clara Shearer MD [address] [place] [address] 07/22/2025 3:30 PM EST Office Visit [facility] ADULT DENTAL [address] [place] [address] Lyn-Méndez, Daina, DDS [address] [place], [place] [phone] 08/20/2025 2:15 PM EST Office Visit [facility] ADULT [facility] [address] [place] [address] Olga, Katt [address] [place] [address] Scheduled Referrals Name Type Priority Associated Diagnoses [...] PM EDT Narrative 11/25/2023 8:18 AM EDT [address] [address] XRay Report Signed Patient: Thalia Martell MR#: [id number] : 1975 Acct:[id number] Age/Sex: 48 / F ADM Date: 11/16/23 Loc: HO.YANELI Attending Dr: Clara Shearer MD Ordering Physician: Clara Shearer MD Date of Service: 11/16/23 Procedure(s): XR thoracic spine 2V Accession Number(s): [id number] cc: Clara Shearer MD EXAMINATION: XR THORACOLUMBAR [...] by Easton Campos MD in OV> 11/25/23 08 DD/ 1549 TD/TT: Communications Senior Associate: QUINN Procedure Note Donotuseinterpreter, Image - 11/25/[address] [address] XRay Report Signed Patient: Yoel Martell#: [id number] : 1975Acct:[id number] Age/Sex: 48 / FADM Date: 11/16/23 Loc: HO.XRAY Attending Dr: Clara Shearer MD Ordering Physician: Clara Shearer MD Date of Service: 11/16/23 Procedure(s): XR thoracic spine 2V Accession Number(s): [id number] cc: Clara Shearer MD EXAMINATION: XR THORACOLUMBAR [...] MD inOV> 11/25/23 0815 DD/ 1549 TD/TT: Communications Senior Associate: QUINN Clara Shearer MD IMG XR PROCEDURES [...] documented as of this encounter Care Teams Scaffold Worker Relationship Specialty Start Date End Date Clara Shearer MD [address] [place] [phone] PCP - General Family Medicine 07/24/18 documented as of this encounter
--- OUTSIDE RECORDS SUMMARY | 2025-07-15 07:53 | XMS_ITS | Encounter Summary ---
Author Organization [employer] Address [address] [facility] [address] [place] [address] Care Team Providers Care Quilting Machine Operator Name Role Phone Clara Shearer MD Primary Care Provider [phone] Reason for Visit * Reason Onset Date Comments Nurse Triage 06/05/2023 Encounter Details Date Type Department Care Team ([facility] st Contact Info) Description 06/05/2023 Telephone [facility] MEDICINE [address] [place], [place] [phone] Clara Shearer MD [address] [place], [place] [phone] Nurse Triage Social History Tobacco Use Types [...] 06/05/2023 4:47 PM EST Triage call with [employer] Principal ID [id number] Pt reports headaches which have started 2 [...] to try this. Pt will come to [facility] tomorrow 06/06/23 to be seen [...] Nausea as well Please contact pt at [phone] Maltese Speaker. documented in this encounter Plan of Treatment Upcoming Encounters Date Type Department Care Team (Late st Contact Info) Description 07/22/2025 2:15 PM EST Office Visit [facility] [address] [place] [address] Clara Shearer MD [address] [place] [address] 07/22/2025 3:30 PM EST Office Visit [facility] ADULT DENT[facility] [address] [place] [address] Daina Mccollum, DDS [address] [place] [address] 08/20/2025 2:15 PM EST Office Visit [facility] ADULT [facility] [address] [place] [address] Olga, Katt [address] [place] [address] documented as of this encounter Visit Diagnoses Not on filedocumented in this encounter Additional Health Concerns Assessment Noted Time PHQ-9 Depression Total Score: 5 03/07/20 23 3:27 PM EDT documented as of this encounter Care Teams Quilting Machine Operator Relationship Specialty Start Date End Date Clara Shearer MD [address] [place] [address] PCP - General Family Medicine 07/24/18 documented as of this encounter
--- OUTSIDE RECORDS SUMMARY | 2025-07-15 07:53 | XMS_ITS | Encounter Summary ---
Author Organization [employer] Address [address] [place] [address] 7 [place] [address] Care Team Providers Care Director Adult Name Role Phone Clara Shearer MD Primary Care Provider [phone] Reason for Referral * Imaging (Routine) - Closed Specialty Diagnoses / Procedures Referred By Ron brewer Referred To Contact Radiology Diagnoses Metabolic dysfunction-associated steatotic liver disease (MASLD) Procedures US Abdomen Comp w elastography Clara Shearer MD [address] [place] [address] Phone: tel: fax: [address] [address] Phone: tel: fax: Referral ID Status Reason Start Date Expiration Date Visits Re quested Visits Authorized [id number] Closed 11/17/2023 11/16/2024 1 1 Encounter Details Date Type Department Care Team (Late st Contact Info) Description 11/17/2023 Orders Only [facility] MEDICINE [address] [place], [place] [phone] Clara Shearer MD [address] [place], [place] [phone] Metabolic dysfunction-associated steatotic liver disease (MASLD) (Primary [...] [facility] MEDICINE [address] [place] [address] Clara Shearer MD [address] [place] [address] 07/22/2025 3:30 PM EST Office Visit [facility] ADULT DENTAL [address] [place] [address] Daina Mccollum DDS [address] [place] [address] 08/20/2025 2:15 PM EST Office Visit [facility] ADULT DENTAL [address] [place], [place] [phone] Jignesh Espinozaaris [address] [place] [address] documented as of this encounter Procedures Procedure Name Priority Date/Time Associated Diagnosis Comments US ABDOMEN COMPLETE WITH ELASTOGRAPHY Routine 12/05/2023 9:26 AM EDT Metabolic dysfunction-associa ebony steatotic liver disease (MASLD) documented in this encounter Results * US Abdomen Comp w elastography (12/05/2023 9:26 AM EDT) Anatomical Region Laterality Modality Abdomen Ultrasound 12/05/2023 9:26 AM EDT Narrative 12/12/2023 9:41 AM EDT [address] [address] Ultrasound Report Signed Patient: Thalia Martell MR#: [id number] : 1975 Acct:[id number] Age/Sex: 48 / F ADM Date: 12/05/23 Loc: HO.US Attending Dr: Clara Shearer MD Ordering Physician: Clara Shearer MD Date of Service: 12/05/23 Procedure(s): US abdomen comp w elastography Accession Number(s): [id number] cc: Clara Shearer MD EXAMINATION: US COMPLETE [...] MD in OV> 12/12/23936 DD/ 5 TD/TT: Rotary Driller Helper: SS Procedure Note Donotuseinterpreter, Image - 12/12/2023 [place] [address] Ultrasound Report Signed Patient: Yoel Martell#: [id number] : 1975Acct:[id number] Age/Sex: 48 / FADM Date: 12/05/23 Loc: HO.US Attending Dr: Clara Shearer MD Ordering Physician: Clara Shearer MD Date of Service: 12/05/23 Procedure(s): US abdomen comp w elastography Accession Number(s): [id number] cc: Clara Shearer MD EXAMINATION: US COMPLETE [...] MD in OV> 12/12/23936 DD/ 5 TD/TT: Rotary Driller Helper: VICTORINO us Clara Shearer MD IM US PROCEDURES Final Result documented in this encounter Visit Diagnoses Diagnosis Metabolic dysfunction-associated steatotic liver disease (MASLD)- Primary documented in this encounter Additional Health Concerns Assessment Noted Time PHQ-9 Depression Total Score: 0 10/17/19 3:45 PM EDT documented as of this encounter Care Teams Director Adult Relationship Specialty Start Date End Date Clara Shearer MD [address] [place] [address] PCP - General Family Medicine 07/24/18 documented as of this encounter
--- OUTSIDE RECORDS SUMMARY | 2025-07-15 07:53 | XMS_ITS | Clinical Summary ---
Author Organization [facility] Address [address] [place] [address] Care Team Providers Care Service Department Manager Name Role Phone ManfredDilciao Primary Care Provider [phone] Allergies No known active allergies Medications aspirin [...] 07/24/2024 Influenza Vaccine (#1) 2025 COVID-19 Vaccine (2024-2 6 season) 2025 11/06/2020, 10/09/2020 Pneumococcal Vaccine: Pediatric (0-5 Years) and At-Risk Patients (6-50 Years) Aged Out No longer eligible based on patient's age to complete this topic Procedures * Due to [place] state law, this organization might not be sharing negative HIV tests. Procedure Name Priority Date/Time Associated Diagnosis Comments PAP Routine 12/17/2020 2:37 PM EDT Hematometra from Last 3 Months or Most Recently Relevant to Health Maintenance Results * Due to [place] state law, this organization might not be sharing negative HIV tests. * Pap (12/17/2020 2:37 PM EDT) Specimen Adequacy Satisfactory for evaluation [facility] MANUAL 1 5:02 PM EDT [facility] [employer] [facility] ANATOMIC PATHOLOGY LABORATORY Pathologist Cytology Interpretation Negative for intraepithelial lesion or malignancy. [facility] MANUAL 1 5:02 PM EDT [facility]ITALSnjohus SoftwareNOR[facility] EverySignal [facility] ANATOMIC [facility]OLOG[facility] LABORATORY at 1702 EDT Comment:This is the result o f a morphological screening test with an inherent possibility of a false negative interpretation. Hole Filler Statement This Pap test was examined by the [facility] System, [facility], [place], [place]. This Pap test was examined in accordance with the [facility] Cytopathology Laboratory written policy, which incorporates all CLIA mandates. Screening guidelines can be found in Am J Clin Pathol 2012;137:516-542. We endorse the practice guidelines developed by ASCCP and published in the Journal Lower Genital Tract Disease 17(5):S1-S27 (2013). [facility] MANUAL 1 5:02 PM EDT [facility]ITALJust Above CostFL [employer] [facility] ANATOMIC PATHOLOGY LABORATORY Clinical History Hematometra [facility] MANUAL 1 5:02 PM EDT [facility]ITALGust[facility] [employer] [facility] ANATOMIC PATHOLOGY LABORATORY Resulting Agency Case was signed out at [facility], Department of Pathology, [employer] 3 CLIA [id number] [facility] MANUAL 1 5:02 PM EDT [facility]ITALGust[facility] UBmatrix [facility] ANATOMIC PATHOLOGY LABORATORY Report Header Gynecologic Cytology Report Case: [id number] Authorizing Provider: Susan Girard Collected: 12/17/2020 1437 Ordering Location: [facility] Received: 12/17/2020 1626 [facility] Obstetrics and Gynecology First Screen: Sissy Dooley Specimen: Screening ThinPrep Pap, Cervix/Endocervix 5:02 PM EDT [facility] Brushing Cervix uteri structure / Unknown Non-Blood Collection / Unknown 12/17/2020 2:37 PM EDT 12/17/2020 4:26 PM EDT us Susan Girard DELICATESSEN MANAGER LAB PATHOLOGY/CYTOLOGY ORDERABL ES Final Result [facility] [address] [place] [address], [place] from Last 3 Months or Most Recently Relevant to Health Maintenance Insurance [facility] Care Teams Service Department Manager Relationship Specialty Start Date End Date Clara Shearer [address] [place] [address] PCP - General Family Medicine 05/26/20
--- OUTSIDE RECORDS SUMMARY | 2025-07-15 07:53 | XMS_ITS | Encounter Summary ---
Author Organization [employer] Address [address] [facility] 7t [place] [address] Care Team Providers Care Academic Director Name Role Phone Clara Shearer MD Primary Care Provider [phone] Reason for Visit * Reason Onset Date Comments rs otf 05/22/2023 Encounter Details Date Type Department Care Team ([facility] st Contact Info) Description 05/22/2023 Telephone [facility] ADULT DENTAL [address] [place], [place] [phone] Olga, Katt [address] [place] [address] rs prophy Social History Tobacco Use Types [...] Description 07/22/2025 2:15 PM EST Office Visit [facility] MEDICINE [address] [place] [address] Clara Shearer MD [address] [place] [address] 07/22/2025 3:30 PM EST Office Visit [facility] ADULT DENTAL [address] [place] [address] Daina Mccollum DDS [address] [place] [address] 08/20/2025 2:15 PM EST Office Visit [facility] ADULT DENTAL [address] [place] [address] Katt Espinoza [address] [place] [address] documented as of this encounter Visit Diagnoses Not on filedocumented in this encounter Additional Health Concerns Assessment Noted Time PHQ-9 Depression Total Score: 5 03/07/20 23 3:27 PM EDT documented as of this encounter Care Teams Academic Director Relationship Specialty Start Date End Date Clara Shearer MD [address] [place] [address] PCP - General Family Medicine 07/24/18 documented as of this encounter
--- OUTSIDE RECORDS SUMMARY | 2025-07-15 07:53 | XMS_ITS | Encounter Summary ---
Author Organization [employer] Address [address] [facility] 7t [place] [address] Care Team Providers Care Lumber Kiln Operator Name Role Phone Clraa Shearer MD Primary Care Provider [phone] Encounter Details Date Type Department Care Team ([facility] st Contact Info) Description 06/18/2025 Orders Only [facility] MEDICINE [address] [place], [place] [phone] Clara Shearer MD [address] [place], [place] [phone] Transaminitis (Primary Dx) Social History Tobacco Use [...] Description 07/22/2025 2:15 PM EST Office Visit [facility] MEDICINE [address] [place] [address] Clara Shearer MD [address] [place] [address] 07/22/2025 3:30 PM EST Office Visit [facility] ADULT DENTAL [address] [place] [address] Lyn-MéndezDaina mathew, DDS [address] [place] [address] 08/20/2025 2:15 PM EST Office Visit [facility] ADULT DENTAL [address] [place] [address] Katt Espinoza [address] [place] [address] Scheduled Orders Name Type Priority Associated Diagnoses [...] documented as of this encounter Care Teams Lumber Kiln Operator Relationship Specialty Start Date End Date Clara Shearer MD [address] [place] [address] PCP - General Family Medicine 07/24/18 documented as of this encounter
--- OUTSIDE RECORDS SUMMARY | 2025-07-15 07:53 | XMS_ITS | Encounter Summary ---
Author Organization [facility] Address [address] [place] [address] Phone Care Team Providers Care Gas Examiner Name Role Phone Clara Shearer MD Primary Care Provider [phone] Encounter Details Date Type Department Care Team (Late st Contact Info) Description 12/04/2022 Procedure Pass [facility], Ct Scan - [address] [address] Social History Tobacco Use Types Packs/Day Years [...] as of this encounter Care Teams Gas Examiner Relationship Specialty Start Date End Date Clara Shearer MD [address] [place] [address] PCP - General Family Medicine 02/16/22 documented as of this encounter Additional Source Comments The information contained in this document represents components of the legal health record. It is not the complete legal health record.[facility]
--- OUTSIDE RECORDS SUMMARY | 2025-07-15 07:53 | XMS_ITS | Encounter Summary ---
Author Organization [employer] Address [address] [place] [address] 7 [place] [address] Care Team Providers Care Washhouse Worker Name Role Phone Clara Shearer MD Primary Care Provider [phone] Reason for Visit * Reason Onset Date Comments Letter for School/Work 08/02/2022 Encounter Details Date Type Department Care Team ([facility] st Contact Info) Description 08/02/2022 Telephone [facility] MEDICINE [address] [place], [place] [phone] Clara Shearer MD [address] [place] [address] Letter for School/Work Social History Tobacco Use [...] a upcoming procedure on 08-19-22. Fax number [phone] Any question please contact Ambreen at [phone] ext [phone] * Telephone Encounter - Khang Garcia - 08/04/2022 2:41 PM EST Tc from pankaj with [facility] requesting a call regarding message below Please contact pankaj at [phone] * Telephone Encounter - Ronda Mahan LPN - 08/04/2022 2:41 PM EST Kelly, this should be done upstairs we do not do letters regarding medication stop or start. Please discuss with Dr. Shearer on what she wants and you can call [facility] to fax that order/letteror if they will take verbal orders from you that is even easier. * Telephone Encounter - Kelly Campuzano RN - 08/02/2022 3:33 PM EST Pt having procedure (dilation and curettage with hysteroscopy to place mirena) at [facility] 08/19/22. They are requesting a letter stating when pt should stop and restart coumadin (how many days before and after). * Telephone Encounter - Khang Garcia - 08/02/2022 2:48 PM EST Tc from claudia with [facility] requesting a letter stating when pt will be stopping medication ( warfarin 2 mg ) prior to OP Please contact claudia at [phone] ext [phone] documented in this encounter Plan of Treatment Upcoming Encounters Date Type Department Care Team (Late st Contact Info) Description 07/22/2025 2:15 PM EST Office Visit [facility] MEDICINE [address] [place] [address] Clara Shearer MD [address] [place] [address] 07/22/2025 3:30 PM EST Office Visit [facility] ADULT DENTAL [address] [place] [address] Lyn-Méndez, Daina, DDS [address] [place], [place] [phone] 08/20/2025 2:15 PM EST Office Visit [facility] ADULT DENTAL [address] [place], [place] [phone] Olga, Katt [address] [place] [address] documented as of this encounter Visit Diagnoses Not on filedocumented in this encounter Care Teams Washhouse Worker Relationship Specialty Start Date End Date Clara Shearer MD [address] [place], [place] [phone] PCP - General Family Medicine 07/24/18 documented as of this encounter
--- OUTSIDE RECORDS SUMMARY | 2025-07-15 07:53 | XMS_ITS | Encounter Summary ---
Author Organization [facility] Address [address] [place] [address] Phone Care Team Providers Care Member Service Representative Name Role Phone Clara Shearer MD Primary Care Provider [phone] Encounter Details Date Type Department Care Team (Late st Contact Info) Description 06/19/2023 Procedure Pass [facility], Ct Scan - [address] [address] Social History Tobacco Use Types Packs/Day Years [...] documented as of this encounter Care Teams Member Service Representative Relationship Specialty Start Date End Date Clara Shearer MD [address] [place] [address] PCP - General Family Medicine 02/16/22 documented as of this encounter Additional Source Comments The information contained in this document represents components of the legal health record. It is not the complete legal health record.[facility]
--- OUTSIDE RECORDS SUMMARY | 2025-07-15 07:53 | XMS_ITS | Encounter Summary ---
Author Organization [employer] Address [address] [place] [address] 7t [place] [address] Care Team Providers Care Curriculum Supervisor Name Role Phone Clara Shearer MD Primary Care Provider [phone] Encounter Details Date Type Department Care Team (Latest Contact Info) Description 09/26/2019 Abstract [facility] CONVERSIONS Dental, Provider, DDS Social History Tobacco [...] Description 07/22/2025 2:15 PM EST Office Visit [facility] MEDICINE [address] [place] [address] Clara Shearer MD [address] [place] [address] 07/22/2025 3:30 PM EST Office Visit [facility] ADULT DENTAL [address] [place] [address] Daina Mccollum DDS [address] [place] [address] 08/20/2025 2:15 PM EST Office Visit [facility] ADULT DENTAL [address] [place] [address] Katt Espinoza [address] [facility] [place] [address] documented as of this encounter Visit Diagnoses Not on filedocumented in this encounter Care Teams Curriculum Supervisor Relationship Specialty Start Date End Date Clara Shearer MD [address] [place] [address] PCP - General Family Medicine 07/24/18 documented as of this encounter
--- OUTSIDE RECORDS SUMMARY | 2025-07-15 07:53 | XMS_ITS | Encounter Summary ---
Author Organization [facility] Address [address] [place] [address] Phone Care Team Providers Care Crawler Dragline Operator Name Role Phone Clara Shearer MD Primary Care Provider Encounter Details Date Type Department Care Team (Late st Contact Info) Description 08/19/2022 Procedure Pass [place] Admitting Dept - Virtual Department [address] [place] [address] Social History Tobacco Use Types Packs/Day Years [...] documented as of this encounter Care Teams Crawler Dragline Operator Relationship Specialty Start Date End Date Clara Shearer MD [address] [place] [address] PCP - General Family Medicine 02/16/22 documented as of this encounter Additional Source Comments The information contained in this document represents components of the legal health record. It is not the complete legal health record.[facility]
--- OUTSIDE RECORDS SUMMARY | 2025-07-15 07:53 | XMS_ITS | Encounter Summary ---
Author Organization [facility] Address [address] [place] [address] Phone Care Team Providers Care Passenger Service Manager Name Role Phone Clara Shearer MD Primary Care Provider [phone] Encounter Details Date Type Department Care Team (Late st Contact Info) Description 06/19/2023 Procedure Pass [facility], Ct Scan - [address] [address] Social History Tobacco Use Types Packs/Day Years [...] documented as of this encounter Care Teams Passenger Service Manager Relationship Specialty Start Date End Date Clara Shearer MD [address] [place] [address] PCP - General Family Medicine 02/16/22 documented as of this encounter Additional Source Comments The information contained in this document represents components of the legal health record. It is not the complete legal health record.[facility]
--- OUTSIDE RECORDS SUMMARY | 2025-07-15 07:53 | XMS_ITS | Encounter Summary ---
Author Organization [facility] Address [address] [place] [address] Phone Care Team Providers Care Positive Printer Operator Name Role Phone Clara Shearer MD Primary Care Provider [phone] Encounter Details Date Type Department Care Team (Late st Contact Info) Description 12/04/2022 Procedure Pass [facility], Ct Scan - [address] [address] Social History Tobacco Use Types Packs/Day Years [...] documented as of this encounter Care Teams Positive Printer Operator Relationship Specialty Start Date End Date Clara Shearer MD [address] [place] [address] PCP - General Family Medicine 02/16/22 documented as of this encounter Additional Source Comments The information contained in this document represents components of the legal health record. It is not the complete legal health record.[facility]
--- OUTSIDE RECORDS SUMMARY | 2025-07-15 07:54 | XMS_ITS | Clinical Summary ---
Author Organization [employer] Address [address] [place] [address] Care Team Providers Care Manager Servicing Name Role Phone Clara Shearer MD Primary [...] DIRECTED BY [facility]IN[facility] 120 tablet 11 06/26/2025 12:42 PM EST 5 Active Ascorbic Acid (vitamin C) 500 [...] mg by mouth every 6 (six) hours. Active sennosides (Senokot) 8.6 MG tablet Take 2 tablets by mouth at bedtime. Active simethicone (Mylicon,Gas-X) 125 MG capsule Take 125 mg by mouth if needed in the morning, at noon, in the evening, and at bedtime. Active Diclofenac Sodium 1 % gel Apply to affected area once or twice daily as needed for pain 150 g 3 06/10/2025 11:08 AM EST Active Active Problems Problem Noted Date Diagnosed [...] - most recent [place] [facility] [place] Left ventricular systolic function is at the lower limits of normal. LV ejection fraction with 50 to 55%. Normal right ventricular systolic function. Mechanical prosthesis in the aortic valve. Mild mitral stenosis. - echocardiogram in Aug 2023 in [facility] [place]: Left ventricular systolic function was normal. EF 57%. Mechanical prosthetic aortic valve, which is functioning normally. Moderate mitral valve stenosis - following with master in chancery, Dr. Haynes [facility] [place] - Monitor with periodic echo. 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 EF 57%. Mechanical prosthetic aortic valve, which is functioning normally. Moderate mitral valve stenosis - following with master in chancery, Dr. Haynes [facility] [place] - Monitor with periodic echo. Localized gingival recession 10/31/2024 Chronic headache 05/30/2024 Assessment & Plan (04/13/2025 7:48 PM EDT): - Following with neurologist, [facility], last seen in January [...] has sleep study which was ordered by master in chancery. Patient was referred to sleep medicine specialist [...] was ordered and patient was referred to [facility] for injection treatment. - [...] on warfarin - previously prescribed metoprolol by master in chancery; no longer on the medication due to hypotension / dizziness - continue following with master in chancery, [facility] [place] Dr Haynes - last TTE on 09/19/2023: Left ventricular systolic function was normal. EF 57%. Mechanical prosthetic aortic valve, which is functioning normally. Moderate mitral valve stenosis - continue current treatment plan per cardiology Assessment & Plan (04/13/2025 7:36 PM EDT): - s/p AVR in Feb 2010 - on warfarin - previously prescribed metoprolol by master in chancery; no longer on the medication due to hypotension / dizziness - continue following with master in chancery, [facility] [place] Dr Haynes - last TTE on 09/19/2023: Left ventricular systolic function was normal. EF 57%. Mechanical prosthetic aortic valve, which is functioning normally. Moderate mitral valve stenosis - continue current treatment plan per cardiology Assessment & Plan (12/30/2024 9:32 AM EDT): - s/p AVR in Feb 2010 - on warfarin - previously prescribed metoprolol by master in chancery; no longer on the medication due to hypotension / dizziness - continue following with master in chancery, [facility] [place] Dr Haynes - last TTE in January 2022, mild mitral valve stenosis - continue current treatment plan per cardiology Assessment & Plan (05/30/2024 12:22 PM EST): - s/p AVR in Feb 2010 - on warfarin - previously prescribed metoprolol by master in chancery; no longer on the medication due to hypotension / dizziness - continue following with master in chancery, [facility] [place] [place] Dr Haynes - last TTE in January 2022, mild mitral valve stenosis - continue current treatment plan per cardiology Assessment & Plan (03/19/2023 1:47 PM EDT): - s/p AVR in Feb 2010 - on warfarin - previously prescribed metoprolol by master in chancery; no longer on the medication due to hypotension / dizziness - continue following with master in chancery, [facility] [place] Dr Haynes - last TTE in January 2022, mild mitral valve stenosis - continue current treatment plan per cardiology Assessment & Plan (11/22/2022 11:35 AM EDT): - s/p AVR in Feb 2010 - on warfarin - previously prescribed metoprolol by master in chancery; no longer on the medication due to hypotension / dizziness - continue following with master in chancery, [facility] [place] [place] Dr Haynes - last TTE in January 2022, mild mitral valve stenosis - continue current treatment plan per cardiology Chronic anticoagulation 11/22/2022 Assessment & Plan (06/15/2025 11:36 AM EST): - indication: Aortic valve replacement - medication warfarin - goal INR 2-3 - followed by [facility] anticoagulation clinic - continue [...] polyp, benign -Pt has follow-up appointment with HOME SALES SERVICE PROFESSIONAL -Pt is on Coumadin -Pt requested Hysterectomy, pt will follow-up with HOME SALES SERVICE PROFESSIONAL with possible hysterectomy in future Assessment & Plan (11/08/2022 4:50 PM EDT): s/p Endometrial Curetting's, polyp, benign -Pt has follow-up appointment with HOME SALES SERVICE PROFESSIONAL -Pt is on Coumadin -Pt requested Hysterectomy, pt will follow-up with HOME SALES SERVICE PROFESSIONAL with possible hysterectomy in future Cyst of ovary 09/22/2022 Iron deficiency anemia due to chronic blood loss 09/22/2022 Assessment & Plan (06/15/2025 11:39 AM EST): - AUB in a setting of anticoagulation - s/p removal of endometrial polyp, benign - Status post total laparoscopic hysterectomy, bilateral salpingectomy, and right oophorectomy in April 2025 - Pt has follow-up appointment with HOME SALES SERVICE PROFESSIONAL - Pt is taking warfarin Assessment & Plan (05/30/2024 1:41 PM EST): - AUB in a setting of anticoagulation - s/p removal of endometrial polyp, benign - Pt has follow-up appointment with HOME SALES SERVICE PROFESSIONAL - Pt is taking Coumadin Assessment & Plan (11/03/2023 12:09 PM EDT): - AUB in a setting of anticoagulation - s/p removal of endometrial polyp, benign -Pt has follow-up appointment with HOME SALES SERVICE PROFESSIONAL -Pt is taking Coumadin Assessment & Plan (11/08/2022 4:45 PM EDT): Due to AUB: S/p Endometrial Curetting's, polyp, benign -Pt has follow-up appointment with HOME SALES SERVICE PROFESSIONAL -Pt is taking Coumadin Vitamin D [...] & Plan (06/15/2025 11:35 AM EST): - Microwave Remote Sensing Scientist[facility] [place] last seen in December 2023 - s/p AVR for rheumatic disease and aortic regurgitation in Feb 2010 - EKG showed sinus rhythm and RBBB - echocardiogram 08/30/2023 EF 57%. Mechanical aortic valve functioning normally. Moderate mitral valve stenosis. No regurgitation. - Continue warfarin - Continue SBE prophylaxis. Assessment & Plan (04/13/2025 7:36 PM EDT): - Microwave Remote Sensing Scientist: Dr. Dallas Duran, last seen in December 2023 - s/p AVR for rheumatic disease and aortic regurgitation in Feb 2010 - EKG showed sinus rhythm and RBBB - echocardiogram 08/30/2023 EF 57%. Mechanical aortic valve functioning normally. Moderate mitral valve stenosis. No regurgitation. - Continue warfarin - Continue SBE prophylaxis. Assessment & Plan (12/30/2024 9:32 AM EDT): - Microwave Remote Sensing Scientist: Dr. Dallas Duran, last seen in December 2023 - s/p AVR for rheumatic disease and aortic regurgitation in Feb 2010 - EKG showed sinus rhythm and RBBB - echocardiogram 08/30/23 EF 57%. Mechanical aortic valve functioning normally. Moderate mitral valve stenosis. No regurgitation. - Continue warfarin - Continue SBE prophylaxis. Assessment & Plan (05/30/2024 12:22 PM EST): - Microwave Remote Sensing Scientist: Dr. Dallas Duran, last seen in December 2023 - s/p AVR for rheumatic disease and aortic regurgitation in Feb 2010 - EKG showed sinus rhythm and RBBB - echocardiogram 08/30/23 EF 57%. Mechanical aortic valve functioning normally. Moderate mitral valve stenosis. No regurgitation. - Continue warfarin - Continue SBE prophylaxis. Assessment & Plan (11/03/2023 12:18 PM EDT): - Microwave Remote Sensing Scientist: Dr. Dallas Duran, last seen in Aug 2023 - s/p AVR for rheumatic disease and aortic regurgitation in Feb 2010 - EKG showed sinus rhythm and RBBB - echocardiogram 08/30/23 EF 57%. Mechanical aortic valve functioning normally. Moderate mitral valve stenosis. No regurgitation. - Continue warfarin - Continue SBE prophylaxis. Assessment & Plan (03/19/2023 1:47 PM EDT): - Microwave Remote Sensing Scientist: Dr. Dallas HUMPHREY, last seen in Jul 2022 - s/p AVR for rheumatic disease and aortic regurgitation in Feb 2010 - EKG showed sinus rhythm and RBBB - echocardiogram JANUARY 2022 nml LVEF 60-65%; mild mitral valve stenosis - Continue aspirin and warfarin, per cardiology. - Continue SBE prophylaxis. Assessment & Plan (11/22/2022 11:37 AM EDT): - Microwave Remote Sensing Scientist: Dr. Dallas Duran, last seen in Jul [...] & Plan (06/15/2025 11:35 AM EST): - Microwave Remote Sensing Scientist: Dr. Dallas HUMPHREY, last seen in December 2024 - s/p AVR for rheumatic disease and aortic regurgitation due to rheumatic heart disease in Feb 2010 - EKG showed sinus rhythm and RBBB - echocardiogram in Aug 2023, EF 59%. Normally functioning AV. Moderate mitral valve stenosis. - - most [place] [facility] Left ventricular systolic function is at the [...] & Plan (04/13/2025 7:36 PM EDT): - Microwave Remote Sensing Scientist: Dr. Dallas Duran, last seen in December 2024 - s/p AVR for rheumatic disease and aortic regurgitation due to rheumatic heart disease in Feb 2010 - EKG showed sinus rhythm and RBBB - echocardiogram in Aug 2023, EF 59%. Normally functioning AV. Moderate mitral valve stenosis. - Continue warfarin, per cardiology. - Continue SBE prophylaxis. Assessment & Plan (12/30/2024 9:32 AM EDT): - Microwave Remote Sensing Scientist: Dr. Dallas Duran, last seen in December 2023 - s/p AVR for rheumatic disease and aortic regurgitation due to rheumatic heart disease in Feb 2010 - EKG showed sinus rhythm and RBBB - echocardiogram in Aug 2023, EF 59%. Normally functioning AV. Moderate mitral valve stenosis. - Continue warfarin, per cardiology. - Continue SBE prophylaxis. Assessment & Plan (05/30/2024 12:22 PM EST): - Microwave Remote Sensing Scientist: Dr. Dallas Duran, last seen in December 2023 - s/p AVR for rheumatic disease and aortic regurgitation due to rheumatic heart disease in Feb 2010 - EKG showed sinus rhythm and RBBB - echocardiogram in Aug 2023, EF 59%. Normally functioning AV. Moderate mitral valve stenosis. - Continue warfarin, per cardiology. - Continue SBE prophylaxis. Assessment & Plan (11/03/2023 12:20 PM EDT): - Microwave Remote Sensing Scientist[facility] [place], [...] & Plan (11/22/2022 11:36 AM EDT): - Microwave Remote Sensing Scientist[facility], [...] by integrated behavioral health service clinician today Right lower quadrant pain 03/06/2024 Assessment & Plan (03/06/2024 4:10 PM EDT): Reports RLQ abd pain x2 days. No fevers. No evidence of acute abdomen. -ordered RLQ US -given return and ER precautions. Idiopathic acute pancreatiti s without infection or necrosis 03/19/2023 11/03/2023 Assessment & Plan (03/19/2023 2:10 PM EDT): - 12/03/22 Evaluated and treated at [facility] [place]. WBC 13k, Lipase 247, CT showed pancreatitis. Given IVF and analgesics. - Seen by [facility] GI in December 2022 - MRI on 03/01/23 was normal. - HgbA1C 5.9% - Follow recommendations per GI. Menometrorrhagia 09/22/2022 03/07/2023 Pain in female pelvis 09/22/20222022 Encounters Date Type Department Care Team Description 06/26/2025 Orders Only GENERIC EXTERNAL DATA DEPARTMENT Provider, Generic External Data 06/18/2025 Orders Only [facility] [place] [address] Clara Shearer MD Transaminitis (Primary Dx) 06/18/2025 Results Follow-Up [facility] [place] [place] [address] Clara Shearer MD Hepatic Function Panel, Hepatitis C Antibody with Reflex to HCV, RNA, Quantitative, Real-Time PCR, Hepatitis B surface antigen, EIA 06/18/2025 Orders Only GENERIC EXTERNAL DATA DEPARTMENT Provider, Generic External Data 06/13/2025 Telephone [facility] [place] [address] Clara Shearer MD Referral 06/12/2025 Results [address]-Up [address] [facility] [address] Clara Shearer MD XR Chest 2 Views 06/11/2025 Telephone [facility] [place] [address] Clara Shearer MD Results 06/11/2025 Orders Only [facility] [place] [address] Clara Shearer MD Chronic right shoulder pain (Primary Dx) 06/11/2025 Orders Only [address] [place] [address] Clara Shearer MD Transaminitis (Primary Dx); RUQ pain 06/11/2025 Results Follow-Up [facility] [place] [address] Clara Shearer MD Hemoglobin A1c, Comprehensive Metabolic Panel, Lipid Panel with Reflex to Direct LDL 06/11/2025 Telephone [facility] [place] [address] Clara Shearer MD Call Back Request 06/11/2025 Orders Only [facility] [address] Clara Shearer MD Chronic right shoulder pain (Primary Dx); Nodule of upper lobe of right lung 06/11/2025 Results Follow-Up [facility] [address] [place] [phone] Clara Shearer MD XR Shoulder 2+ Views Right 06/10/2025 9:30 AM EST Office Visit [facility] [address] [place] [phone] Clara Shearer MD History of hysterectomy with [...] (obstructive sleep apnea) 06/10/2025 Travel 06/09/2025 Telephone [facility] [address] [place] [phone] Clara Shearer MD chart prep 05/28/[address] [phone] Kelly Chau, RN Hospital Follow-up 05/19/2025 Refill [facility] [address] [place] [phone] Clara Shearer MD 05/16/2025 Refill [facility] [address] [place] [phone] Clara Shearer MD 05/12/2025 Patient Outreach [address] [phone] Clara Shearer MD Transition Of Care (Tcm) (HDF- unscheduled (surgery)) 05/10/2025 Telephone [facility] [address] [place], [place] [phone] Rena Lopez MD 05/02/2025 3:40 PM EDT Office Visit [facility] [address] [place] [phone] Nabil Jesus MD Generalized abdominal pain (Primary Dx); Constipation, unspecified constipation type 05/02/2025 Travel 04/21/2025 Orders Only GENERIC EXTERNAL DATA DEPARTMENT Provider, Generic External Data 04/17/2025 Telephone [facility] [address] [facility] [place] [address] Clara Shearer MD Critical Result 04/17/2025 Orders [...] Description 07/22/2025 2:15 PM EST Office Visit [facility] [address] [place] [address] Clara Shearer MD [address] [place] [address] 07/22/2025 3:30 PM EST Office Visit [facility] [address] [place] [address] Daina Mccollum DDS [address] [place] [address] 08/20/2025 2:15 PM EST Office Visit [facility] [address] [place] [address] Katt Espinoza [address] [place] [address] Health Maintenance Due Date Last Done Comments [...] 12/11/2023, Additional history exists Mammogram 10/04/2026 10/04/2024, 0608/2022, 12/11/2020, Additional history exists Zoster Vaccines (1 of 2) 2027 Lipid Panel 06/11/2030 06/11/2025, 01/22, 11/16/2023, Additional history exists DTaP/Tdap/Td Vaccines (3 [...] Comments PROTHROMBIN TIME WHOLE BLD POC Routine 06/26/2025 1:21 PM EST ~PT, ~INR - ANTI COAG CLINIC Routine 06/26/2025 1:21 PM EST HEPATITIS B SURFACE ANTIGEN, EIA Routine 06/18/2025 8:37 AM EST Transaminitis HEPATITIS C AB W/REFL TO HCV RNA, QN, PCR Routine 06/18/2025 8:37 AM EST Transaminitis HEPATIC FUNCTION PANEL Routine 06/18/2025 8:37 AM EST Transaminitis BASIC METABOLIC PANEL [...] COAG CLINIC Routine 04/17/2025 2:25 PM EDT PROPHYLAXIS - ADULT Routine 10/31/2024 [...] 12:00 AM EDT HPV GENOTYPES 16,18/45 Routine 11/13/2020 4:51 PM EDT THINPREP PAP Routine 11/13/2020 4:51 PM EDT from Last 3 Months or Most Recently Relevant to Health Maintenance Results * (ABNORMAL) PROTHROMBIN TIME WHOLE BLD POC (06/26/2025 1:21 PM EST) Only the most recent of4 resultswithin the time period is included. Protime 48.4(H) 11.1 - 13.5 sec [facility] 06/26/2025 1:21 PM EST 06/26/2025 1:23 PM EST us Generic External Data Provider LAB BLOOD ORDERAB LES Final Result [facility] [address] [place] [address] [phone] * (ABNORMAL) ~PT, ~INR - ANTI COAG CLINIC (06/26/2025 1:21 PM EST) Only the most recent of4 resultswithin the time period is included. Prothrombin Time INR 4.0(H) 0.9 - 1.1 [facility] Comment:METER #: [id number] TERNATIONAL NORMALIZED RATIO (INR) REFERENCE RANGES Reference RangeFor patients not on anticoagulant therapy: 0.9 - 1.1INR ranges for oral anticoagulanttherapy:For prevention and treatment of venous thrombosis and pulmonary embolism: 2.0 - 3.0For acute myocardial infarction with aspirin therapy: 2.0 - 3.0For acute myocardial infarction without aspirin therapy: 3.0 - 4.0For patients with mechanical prosthetic heart valves: 2.5 - 3.5 06/26/2025 1:2 1 PM EST 06/26/2025 1:23 PM EST us Generic External Data Provider LAB BLOOD ORDERAB LES Final Result Performing Organization Address [facility] Co de Phone Number [facility] [address] [place] [phone] * Hepatitis C Antibody with Reflex to HCV, RNA, Quantitative, Real-Time PCR (06/18/2025 8:37 AM EST) Pathologist [facility] Hepatitis C Antibody Nonreactive Nonreactive [facility] Comment:Antibodies to HCV no t detected; does not exclude early acuteHCV infection. Venous blood specimen / Unknown 06/18/2025 8:37 AM EST 06/18/2025 8:43 AM EST Clara Shearer MD LAB BLOOD ORDERABLES Final Resul t Performing Organization Address [facility] Co de Phone Number [facility] [address] [place] [phone] * Hepatitis B surface antigen, EIA (06/18/2025 8:37 AM EST) Pathologist [facility] Hepatitis B Surface Ag Negative Negative [facility] Venous blood specimen / Unknown 06/18/2025 8:37 AM EST 06/18/2025 8:43 AM EST Clara Shearer MD LAB BLOOD ORDERABLES Final Resul t Performing Organization Address [facility] Co de Phone Number [facility] [address] [place] [phone] * (ABNORMAL) Hepatic Function Panel (06/18/2025 8:37 AM EST) Bilirubin, Total 0.3 0.0 - 1.0 mg/dL [facility] Bilirubin, Direct 0.1 0.0 - 0.5 mg/dL [facility] Aspartate Amino Transferase 65(H) 5 - 31 U/L [facility] Alanine Aminotransferase 162(H) 0 - 31 U/L [facility] Total Protein 7.7 6.5 - 8.0 g/dL [facility] Albumin Level 4.5 3.5 - 5.0 g/dL [facility] Alkaline Phosphatase 121(H) 39 - 117 U/L [facility] Blood Venous blood specimen / Unknown 06/18/2025 8:37 AM EST 06/18/2025 8:43 AM EST us Clara Shearer MD LAB BLOOD ORDERABLES Final Resul t Performing Organization Address City/State/[facility] Co de Phone Number [facility] [address] [place] [phone] * Basic Metabolic Panel (06/18/2025 8:37 AM EST) Pathologist [facility] Sodium 139 135 - 145 mmol/L [facility] Potassium 4.1 3.3 - 5.1 mmol/L [facility] Chloride 108 96 - 108 mmol/L [facility] Carbon Dioxide 23 22 - 29 mmol/L [facility] Anion Gap 12 12 - 20 [facility] Urea Nitrogen (BUN) 10 9 - 16 mg/dL [facility] Creatinine, Serum 0.56 0.5 - 1.4 mg/dL [facility] Estimated Glomerular Filt Rate >60 [facility] Comment:Chronic Kidney Disea se: Estimated GFR < 60 mL/min/1.01d5Pdngpn Kidney Disease: Estimated GFR < 15 mL/min/1.73m2 Glucose 96 60 - 115 mg/dL [facility] Calcium 9.8 8.4 - 10.2 mg/dL [facility] Blood Venous blood specimen / Unknown 06/18/2025 8:37 AM EST 06/18/2025 8:43 AM EST us Nabil Jesus MD LAB BLOOD ORDERABLES Final Resul t [facility] [address] [place] [phone] * XR Chest 2 Views (06/12/2025 1:47 PM EST) Anatomical Region Laterality Modality Chest Radiographic Darlene ging 06/12/2025 1:47 PM EST Narrative 06/12/2025 2:12 PM EST [address] [address] XRay Report Signed Patient: Thalia Martell MR#: [id number] : 1975 Acct:[id number] Age/Sex: 50 / F ADM Date: 06/12/25 Loc: HO.PATIENCEAY Attending Dr: Clara Shearer MD Ordering Physician: Clara Shearer MD Date of Service: 06/12/25 Procedure(s): XR chest 2V Accession Number(s): [id number] cc: Clara Shearer MD Reason for Exam: [...] 06/12/25 1409 DD/ 1347 TD/TT: 06/12/25 1350 Feed Project Engineer: Procedure Note Donotuseinterpreter, Image - 06/12/[address] [address] XRay Report Signed Patient: Yoel Martell#: [id number] : 1975Acct:[id number] Age/Sex: 50 / FADM Date: 06/12/25 Loc: HO.XRAY Attending Dr: Clara Shearer MD Ordering Physician: Clara Shearer MD Date of Service: 06/12/25 Procedure(s): XR chest 2V Accession Number(s): [id number] cc: Clara Shearer MD Reason for Exam: [...] 06/12/25 1409 DD/ 1347 TD/TT: 06/12/25 1350 Feed Project Engineer: Clara Shearer MD IMG XR PROCEDURES Final Result * Vitamin D, 25-Hydroxy, Total, Immunoassay (06/11/2025 8:13 AM EST) Vitamin D 25-OH Total 39.5 >30 ng/mL [facility] Comment: Health Based Reference Values*< 20 ng/mL Cgwhwlafg55-57 ng/mL Insufficient> 30 ng/mL Sufficient*Paul LEVIN. N [...] MD LAB BLOOD ORDERABLES Final Resul t [facility] [address] [place] [phone] * Vitamin B12 (Cobalamin) and Folate Panel, Serum (06/11/2025 8:13 AM EST) Vitamin B12 809 200 - 900 pg/mL [facility] Comment:NORMAL 200-900 PG/ML INDETERMINATE 160-199 PG/ML DEFICIENT < 160 PG/ML Folate 9.4 > or = 4.0 ng/mL [facility] [...] ORDERABLES Final Resul t Performing Organization Address [facility] Co de Phone Number [facility] [address] [place] [phone] * TSH with Reflex to Free T4 (06/11/2025 8:13 AM EST) TSH reflex Free T4 1.95 0.32 - 4.0 uIU/mL [facility] Blood 06/11/2025 8:13 AM EST 06/11/2025 11:09 AM EST us Clara Shearer MD LAB BLOOD ORDERABLES Final Resul t Performing Organization Address [facility] Co de Phone Number [facility] [address] [place] [phone] * (ABNORMAL) Lipid Panel with Reflex to Direct LDL (06/11/2025 8:13 AM EST) Triglycerides 186(H) <150 mg/dL [facility] Comment:Desirable Triglyceri de: less than 150 mg/dLBorderline High Triglyceride 150-199 mg/dLHigh Triglyceride: 200-499 mg/dLVery High Triglyceride: greater than or equal to 5OO mg/dL Cholesterol 243(H) <200 mg/dL [facility] Comment:Desirable Cholestero l: less than 200 mg/dLBorderline High Cholesterol: 200-239 mg/dLHigh Cholesterol: greater than 239 mg/dL LDL Cholesterol Calculated 148(H) <100 mg/dL [facility] Comment:Desirable LDL: less than 100 mg/dLNear Optimal/Above Optimal LDL: 110- 129 mg/dLBorderline High LDL: 130-159 mg/dLHigh LDL: 160-189 mg/dLVery High LDL: greater than or equal to 190 mg/dL HDL Cholesterol 58 >40 mg/dL [facility] Comment:Desirable HDL: great er than 40 mg/dL Note: This HDL assay may give artificially low results in patients with liver disease. Blood 06/11/2025 8:13 AM EST 06/11/2025 11:09 AM EST us Clara Shearer MD LAB BLOOD ORDERABLES Final Resul t [facility] [address] [place], [place] [phone] * (ABNORMAL) CBC auto differential (06/11/2025 8:13 AM EST) White Blood Count 5.0 4.8 - 10.8 X10*3/uL [facility] Red Blood Count 4.11(L) 4.20 - 5.50 X10*6/uL [facility] Hemoglobin 12.1 12.0 - 16.0 g/dl [facility] Hematocrit 37.7 37.0 - 47.0 % [facility] Mean Corpuscular Volume 91.7 80.0 - 98.0 fL [facility] Mean Corpuscular Hemoglobin 29.4 27.0 - 33.0 pg [facility] Mean Corpuscular HGB Conc 32.1 31.0 - 35.0 g/dl [facility] Red Cell Distribution Width 13.7 11.0 - 16.0 % [facility] Platelet Count 218 160 - 400 X10*3/uL [facility] Mean Platelet Volume 10.6 9.4 - 12.3 fL [facility] Neutrophils Percent Auto 63.2 45 - 73 % [facility] Imm Gran Pct Auto 0.2 0.0 - 0.4 % [facility] Lymphocytes Percent Auto 21.8 20 - 40 % [facility] Monocytes Percent Auto 10.4 2 - 11 % [facility] Eosinophils Percent Auto 4.0 0 - 4 % [facility] Basophils Percent Auto 0.4 0 - 2 % [facility] NRBC Pct Auto 0.0 0.0 - 0.2 /100WBC [facility] Neutrophils Absolute Auto 3.2 2.0 - 8.3 x10*3/uL [facility] Imm Gran Abs Auto 0.01 0.00 - 0.03 X10*3/uL [facility] Lymphocytes Absolute Auto 1.1(L) 1.2 - 4.9 X10*3/uL [facility] Monocytes Absolute Auto 0.5 0.1 - 1.2 X10*3/uL [facility] Eosinophils Absolute Auto 0.2 0.0 - 0.4 X10*3/uL [facility] Basophils Absolute Auto 0.0 0.0 - 0.2 X10*3/uL [facility] NRBC Abs Auto 0.000 0.0 - 0.012 X10*3/uL [facility] Blood Venous blood specimen / Unknown 06/11/2025 8:13 AM EST 06/11/2025 11:08 AM EST us Clara Shearer MD LAB BLOOD ORDERABLES Final Resul t [facility] [address] [place] [phone] * Iron And Total Iron Binding Capacity (06/11/2025 8:13 AM EST) Iron 56 30 - 160 mcg/dL [facility] Total Iron Binding Capacity 318 228 - 428 mcg/dL [facility] Percent Iron Saturation 18 15 - 50 % [facility] Unsaturated Iron Binding 262 ug/dL [facility] Blood Venous blood specimen / Unknown 06/11/2025 8:13 AM EST 06/11/2025 11:09 AM EST Clara Shearer MD LAB BLOOD ORDERABLES Final Resul t Performing Organization Address City/[facility]/ZIP Co de Phone Number [facility] [address] [place] [phone] * (ABNORMAL) Reticulocyte Count (06/11/2025 8:13 AM EST) Reticulocytes Absolute 0.130(H) 0.026 - 0.095 X10*6/uL [facility] Immature Retic Fraction 16.3(H) 3.0 - 15.9 % [facility] Retic HGB Equivalent 32.8 30.0 - 35.0 pg [facility] Reticulocyte Percent 3.2(H) 0.5 - 1.8 % [facility] Blood Venous blood specimen / Unknown 06/11/2025 8:13 AM EST 06/11/2025 11:08 AM EST Clara Shearer MD LAB BLOOD ORDERABLES Final Resul t Performing Organization Address City/[facility]/ZIP Co de Phone Number [facility] [address] [place] [phone] * Hemoglobin A1c (06/11/2025 8:13 AM EST) Hemoglobin A1c 5.5 <6.0 % [facility] Comment:Hemoglobin A1C Refer ence Range Adults: 4.8 - 6.0 % Non diabetic: < 6.0 % Goal: < 7.0 %Additional Action Suggested: > 8.0 %Note: Hemoglobin A1c results are invalid for patients with abnormal amounts of HbF. Blood transfusions may impact the HbA1c concentration in the patient sample. Estimated Average Glucose 111 mg/dL [facility] Comment:eAG = Estimated ave rage glucose which is %A1C expressed asaverage glucose, using the formula of the C9G-EngifrpNbunodc Glucose study (ADAG), Diabetes Care, Vol.31,#8,Feb. 2007 Blood Venous blood specimen / Unknown 06/11/2025 8:13 AM EST 06/11/2025 11:08 AM EST Clara Shearer MD LAB BLOOD ORDERABLES Final Resul t Performing Organization Address City/[facility]/ZIP Co de Phone Number [facility] [address] [place] [phone] * Ferritin (06/11/2025 8:13 AM EST) Ferritin 92 10 - 250 ng/mL [facility] Blood Venous blood specimen / Unknown 06/11/2025 8:13 AM EST 06/11/2025 11:09 AM EST us Clara Shearer MD LAB BLOOD ORDERABLES Final Resul t [facility] [address], [place] [phone] * (ABNORMAL) Comprehensive Metabolic Panel (06/11/2025 8:13 AM EST) Sodium 137 135 - 145 mmol/L [facility] Potassium 3.8 3.3 - 5.1 mmol/L [facility] Chloride 107 96 - 108 mmol/L [facility] Carbon Dioxide 24 22 - 29 mmol/L [facility] Anion Gap 10(L) 12 - 20 [facility] Urea Nitrogen (BUN) 12 9 - 16 mg/dL [facility] Creatinine, Serum 0.53 0.5 - 1.4 mg/dL [facility] Estimated Glomerular Filt Rate >60 [facility] Comment:Chronic Kidney Disea se: Estimated GFR < 60 mL/min/1.38i9Slmsts Kidney Disease: Estimated GFR < 15 mL/min/1.73m2 Glucose 105 60 - 115 mg/dL [facility] Calcium 9.2 8.4 - 10.2 mg/dL [facility] Bilirubin, Total 0.5 0.0 - 1.0 mg/dL [facility] Aspartate Amino Transferase 153(H) 5 - 31 U/L [facility] Alanine Aminotransferase 267(H) 0 - 31 U/L [facility] Total Protein 7.3 6.5 - 8.0 g/dL [facility] Albumin Level 4.2 3.5 - 5.0 g/dL [facility] Alkaline Phosphatase 119(H) 39 - 117 U/L [facility] Blood Venous blood specimen / Unknown 06/11/2025 8:13 AM EST 06/11/2025 11:09 AM EST us Clara Shearer MD LAB BLOOD ORDERABLES Final Resul t [facility] [address] [place] [phone] * XR Shoulder 2+ Views Right (06/10/2025 11:10 AM EST) Anatomical Region Laterality Modality Upper Extremities, Shoulder Right Radi ographic Imaging 06/10/2025 11:1 0 AM EST Narrative 06/10/2025 3:02 PM EST [address] [address] XRay Report Signed Patient: Thalia Martell MR#: [id number] 2088 : 1975 Acct:[id number] Age/Sex: 50 / F ADM Date: 06/10/25 Loc: HO.HHCX Attending Dr: Clara Shearer MD Ordering Physician: Clara Shearer MD Date of Service: 06/10/25 Procedure(s): XR shoulder RT min 2V Accession Number(s): [id number] cc: Clara Shearer MD Reason for Exam: [...] in OV> 06/10/25 1459 DD/ 1110 TD/TT: 06/10/251114 Feed Project Engineer: RIA Procedure Note Donotuseinterpreter, Image - 06/10/[address] [address] XRay Report Signed Patient: Yoel Martell#: [id number] 2088 : 1975Acct:[id number] Age/Sex: 50 / FADM Date: 06/10/25 Loc: HO.HHCX Attending Dr: Clara Shearer MD Ordering Physician: Clara Shearer MD Date of Service: 06/10/25 Procedure(s): XR shoulder RT min 2V Accession Number(s): [id number] cc: Clara Shearer MD Reason for Exam: [...] in OV> 06/10/25 1459 DD/ 1110 TD/TT: 11/18/25 1115 Feed Project Engineer: RIA us Clara Shearer MD IMG XR PROCEDURES Final Result * POCT urinalysis dipstick manually resulted (CPT 97388) (05/02/2025 3:50 PM EDT) Color, UA Yellow [...] Prothrombin Time 65.0(H) 10.9 - 12.4 SEC [facility] INTERNATIONAL NORM RATIO 5.7(HH) 0.9 - 1.1 [facility] Comment:RESULTS OF PT/INR CA LLED [...] ORDERAB LES Final Result [facility] [address] [place] [phone] * BI Mammogram Screening Tomosynthesis Bilateral (10/04/2024 3:55 PM EDT) Anatomical Region Laterality Modality Breast Bilateral Mammography 10/04/2024 3:55 PM EDT Narrative 10/13/2024 6:12 PM EDT [facility] [address] [place] [address] Mammography Report Signed Patient: Thalia Martell MR#: [id number] 2088 : 1975 Acct:[id number] Age/Sex: 49 / F ADM Date: 10/04/24 Loc: HO.MAMMStephanie Attending Dr: Clara Shearer MD Ordering Physician: Clara Shearer MD Results: 1Negative Date of Service: 10/04/24 Follow Up: 1 Year From Orig ina Mammogram Procedure(s): MM tomosynthesis screening BI Accession Number(s): [id number] cc: Clara Shearer MD EXAMINATION: MM SCREENING [...] 10/13/24 1809 DD/ 1555 TD/TT: 10/04/24 1608 Feed Project Engineer: Procedure Note Donotuseinterpreter, Image - 10/13/2024 [facility] [address] [place], [place] [address] Mammography Report Signed Patient: Yoel Martell#: [id number] 2088 : 1975Acct:[id number] Age/Sex: 49 / FADM Date: 10/04/24 Loc: HO.MAMMO Attending Dr: Clara Shearer MD Ordering Physician: Clara Shearer MDResults: 1Negative Date of Service: 10/04/24Follow Up: 1 Year From Orig inal Mammogram Procedure(s): MM tomosynthesis screening BI Accession Number(s): [id number] cc: Clara Shearer MD EXAMINATION: MM SCREENING [...] 10/13/24 1809 DD/ 1555 TD/TT: 10/04/24 1608 Feed Project Engineer: Clara Shearer MD IMG BI PROCEDURES Edited Result - Final * HIV-1 RNA, Quantitative, Real-Time PCR (12/15/2022 8:09 AM EDT) Pathologist [facility] HIV 1 RNA, QN PCR NOT DETECTED NOT DETECTED copies/mL [email or web address] [place] [facility] HIV 1 RNA, QN PCR NOT DETECTED NOT DETECTED Log copies/mL [email or web address] [place] [facility] Comment: This test was performed using Real-Time Polymerase Chain Reaction. Reportable Range: 20 copies/mL to 10,000,000 copies/mL (1.30 log copies/mL to 7.00 log copies/mL). Blood Venous blood specimen / Unknown 12/15/2022 8:09 AM EDT 12/15/2022 8:10 AM EDT Narrative [facility] - 12/23/2022 6:53 PM EDT FASTING:NO FASTING: NO us Yany Cosby APPLICATOR SPRAYER LAB BLOOD ORDERABLES Final Res ult [address], [place] [address] [email or web address] [phone] * THINPREP PAP (11/13/2020 4:51 PM EDT) Pathologist [facility] Clinical Information: None given [facility] COMMENT SEE COMMENT [facility] [...] along with historic and current clinical information. Parent Partner : SEE COMMENT [facility] Comment: RK, CT(ASCP) CT screening location: [address] [address] Interpretation/R esult: Negative for intraepithelial lesion or malignancy. [facility] LMP: NONE GIVEN [facility] Prev. BX: NONE GIVEN [facility] Prev. PAP: NONE GIVEN [facility] Review Parent Partner : SEE COMMENT [facility] Comment: BLC,CT(ASCP) CT screening location: [address] [address] SOURCE: None given [facility] Statement Of Adequacy: SEE COMMENT [facility] Comment: Satisfactory for evaluation. Endocervical/transformation zone component present. Age and/or menstrual status not provided 11/13/2020 4:51 PM EDT Ginette Her NP LAB PATHOLOGY ORDERABLES Final Result Performing Organization Address [facility] de Phone Number [facility] [address] * HPV GENOTYPES 16,18/45 (11/13/2020 4:51 PM EDT) HPV 16 RNA NOT DETECTED NOT DETECTED [facility] HPV 18/45 RNA NOT DETECTED NOT DETECTED [facility] Comment: Methodology: Cylinder Block Hole Reliner Mediated Amplification The analytical performance characteristics of this assay have been determined by [email or web address]. The modifications have not been cleared or approved by the FDA. This assay has been validated pursuant to the CLIA regulations and is used for clinical purposes. 11/13/2020 4:51 PM EDT Ginette Her NP LAB CYTOLOGY ORDERABLES Final R esult Performing Organization Address [facility] de Phone Number [facility] [address] from Last 3 Months or Most Recently Relevant to Health Maintenance Insurance [facility] Address: [address] [address] [place] [address] DENTAL - HSN PARTIAL (MEDICAID) Care Teams Manager Servicing Relationship Specialty Start Date End Date Clara Shearer MD [address] [place] [phone] PCP - General Family Medicine 07/24/18
--- NOTE | 2025-07-15 08:24 | MHC.OFFVISCO ---
Intake Intake Visit Reasons: Anticoagulation Allergies peach Allergy (Severe, Verified 07/15/25 07:54) Angioedema Medication List - Last Reconciled 07/15/25 by Ruthy Newby RN ascorbic acid (vitamin C) 500 mg PO BID aspirin (Adult Aspirin Regimen) 81 mg PO DAILY cetirizine 10 mg PO DAILY cholecalciferol (vitamin D3) 50 mcg PO DAILY cyclobenzaprine 10 mg PO TID PRN hydrocortisone 2.5% (Proctosol HC) 1 appl UT BID-QID PRN olopatadine 0.2% (Pataday Once Daily Relief) 1 drp ophthalmic (eye) DAILY PRN 30 days MDD as needed omeprazole 20 mg PO DAILY PRN oxycodone 5 mg PO TID PRN sennosides (senna) 17.2 mg PO DAILY sumatriptan succinate 100 mg PO .prn MDD 200mg tolterodine ER 4 mg PO DAILY PRN topiramate 50 mg PO DAILY PRN warfarin See Protocol orally 6mg daily; Nursing Note INR: 2.5 in therapeutic range Medications and supplements reviewed- Pt experiencing nerve pain in 3 finges,wrists and hands bilat, having nerve study done today, she wants to take magnesium and beet powder supplement - may raise her INR enc only 1 tab of each daily - not to take same time greg medication - make sure to eat weekly greens and have 1 extra green / week No changes in diet, medications, Denies any signs and symptoms of bleeding or bruising or clotting. Bleeding, bruising, clotting discussed Nutritional guidance given - keep up weekly greens 1 extra if take supplements Dose: keep same lowered dose 3mg x 3 days/ 6mg x 4 day F/U INR: 2 weeks Patient verbalizes understanding of instructions given Anti-Coag Initial Assessment Social Hx Patient Tobacco Use Status: Never used Tobacco alcohol intake: never Alcohol intake frequency: does not drink Coding Level of Care Code Est Patient Level 1 Diagnoses Current use of anticoagulant therapy Z79.01 Results AMB INR Fingerstick AMB INR Fingerstick 2.5 Last Edit by Ruthy Newby RN on 07/15/25 07:59 Assessment & Plan Assessment & Plan (1) Current use of anticoagulant therapy: Code(s): Z79.01 - 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
[2025-07-15 08:49] LABS: Prothrombin Time Whole Bld POC 29.6 sec (11.1-13.5); ~PT, ~INR - Anti Coag Clinic 2.5 (0.9-1.1)
== END 2025-07-15 08:31 | disposition home or self-care (01) ==
LOC: HO.ACS 07:50
PROVIDERS: PCP Family Medicine; Visit Provider Internal Medicine Medical Oncology
DX: Z79.01 Long term (current) use of anticoagulants (principal)

== ENCOUNTER 2025-07-15 08:01 | Outpatient (REF) | payer OTHER, SELFPAY ==
--- NOTE | 2025-07-15 08:04 | EMG_ITS ---
Chief complaint: Right arm pain Referred by: Clara Shearer MD Procedure done: NCS and EMG right upper extremity Right median and ulnar motor studies were performed. Right median and ulnar mixed sensory and radial sensory study was performed and needle examination was performed. Findings: Right median motor distal latencies was mildly prolonged. Right median mixed distal latencies was moderately prolonged with reduction of amplitude and mild slowing of conduction velocity. Impression: Jygl-ad-gyjhdaxf right median neuropathy across carpal tunnel [place] [address] [facility]
== END 2025-07-15 08:02 | disposition home or self-care (01) ==
LOC: HO.NEURO 08:01
PROVIDERS: PCP Family Medicine; Visit Provider Family Medicine
DX: M79.601 Pain in right arm (principal); R20.2 Paresthesia of skin
CPT/HCPCS: 95886; 95909

== ENCOUNTER → 2025-07-15 08:04 | Outpatient (BNV) | payer OTHER, SELFPAY | PROVIDERS: PCP Family Medicine; Visit Provider Psychiatry & Neurology Neurology | DX: G56.01 Carpal tunnel syndrome, right upper limb (principal) | CPT/HCPCS: 95886; 95909 ==

== ENCOUNTER 2025-07-22 14:53 | Outpatient (REF) | payer OTHER, SELFPAY ==
--- NOTE | ~2025-07-22 | XR_ITS ---
EXAMINATION: XR LUMBOSACRAL SPINE CLINICAL INFORMATION: back pain, fall COMPARISON: None available. TECHNIQUE: Three views of the lumbosacral spine. FINDINGS: There is no scoliosis. There is a normal lordosis. There is transitional lumbosacral anatomy present. There is a partially lumbarized S1 vertebral body. There is no fracture, compression deformity, or suspicious bone lesion. There is no subluxation. Sagittal alignment is normal. Normal facet alignment. No significant facet arthrosis. Disc spaces appear preserved. Sacrum and SI joints appear intact. XR/XR lumbar spine 2-3V IMPRESSION: No acute findings of the lumbar spine. Electronically signed by: Price Calderón MD 07/22/2025 04:26 PM NANCY
--- OUTSIDE RECORDS SUMMARY | 2025-07-22 14:15 | XMS_ITS | Encounter Summary ---
Author Organization [employer] Address [address] [facility] [address] [place] [address] Care Team Providers Care Java Swing Developer Name Role Phone Clara Shearer MD Primary Care Provider [phone] Encounter Details Date Type Department Care Team (Latest Contact Info) Description 07/22/2025 2:15 PM EST Office Visit [facility] MEDICINE [address] [place], [place] [phone] Clara Shearer MD [address] [place], [place] [phone] Rheumatic aortic valve insufficiency (Primary Dx); History of mechanical aortic valve replacement; Mitral valve stenosis, unspecified etiology; Chronic anticoagulation; Prediabetes; Gastroesophageal reflux disease, unspecified whether esophagitis present; Transaminitis; Iron deficiency anemia due to chronic blood loss; Chronic nonintractable headache, unspecified headache type; Numbness and tingling of right hand; AYESHA (obstructive sleep apnea); Acute low back pain without sciatica, unspecified back pain laterality Social History Tobacco Use Types Packs/Day Years Used Date Smoking Tobacco: Never Passive Smoke Exposure: Never Smokeless Tobacco: Never Alcohol Use Standard Drinks/Week Comments Never 0 (1 standard drink = 0.6 oz pur e alcohol) Alcohol Answer Date Recorded How often do you have a drink containing alcohol ? 0 07/22/2025 Average Number of Drinks Not on file 025 How often do you have six or more drinks on one occasion? 0 07/22/2025 Depression Answer Date Recorded Patient Health Questionnaire-9 [...] AM EDT documented as of this encounter Last Filed Vital Signs Vital Sign Reading Time Taken Comments Blood Pressure 110/80 07/22/2025 2:14 PM EST Pulse 84 07/22/2025 2:14 PM EST Temperature 36 C (96.8 F) 07/22/2025 2:14 PM EST Respiratory Rate 14 07/22/2025 2:14 PM EST Oxygen Saturation 98% 07/22/2025 2:14 PM EST Inhaled Oxygen Concentration - - Weight 67.2 kg (148 lb 3.2 oz) 07/22/2025 2:14 P M EST Height 147.3 cm (4' 10 ) 07/22/2025 2:14 PM EST Body Mass Index 30.97 07/22/2025 2:14 PM EST documented in this encounter Plan of Treatment Upcoming Encounters Date Type Department Care Team (Late st Contact Info) Description 08/20/2025 2:15 PM EST Office Visit [facility] ADULT DENTAL [address] [place] [address] Katt Espinoza [address] [place] [address] 09/16/2025 2:30 PM EST Office Visit [facility] ADULT DENTAL [address] [place] [address] Juanmarcin Waylon, DDS [address] [place] [phone] documented as of this encounter Procedures Procedure Name Priority Date/Time Associated Diagnosis Comments XR LUMBAR SPINE 2-3 VIEWS Routine 07/22/2025 4:18 PM EST Acute low back pain without sciatica, unspecified back pain laterality documented in this encounter Results * XR Lumbar Spine 2-3 Views (07/22/2025 4:18 PM EST) Anatomical Region Laterality Modality Spine, L-spine Radiographic Darlene ging 07/22/2025 4:18 PM EST Narrative 07/22/2025 4:29 PM EST [address] [address] XRay Report Signed Patient: Thalia Martell MR#: [id number] 2088 : 1975 Acct:[id number] Age/Sex: 50 / F ADM Date: 07/22/25 Loc: HO.HHCL Attending Dr: Clara Shearer MD Ordering Physician: Clara Shearer MD Date of Service: 07/22/25 Procedure(s): XR lumbar spine 2-3V Accession Number(s): [id number] cc: Clara Shearer MD Reason for Exam: back pain, fall EXAMINATION: XR LUMBOSACRAL SPINE CLINICAL INFORMATION: back pain, fall COMPARISON: None available. TECHNIQUE: Three views of the lumbosacral spine. FINDINGS: There is no scoliosis. There is a normal lordosis. There is transitional lumbosacral anatomy present. There is a partially lumbarized S1 vertebral body. There is no fracture, compression deformity, or suspicious bone lesion. There is no subluxation. Sagittal alignment is normal. Normal facet alignment. No significant facet arthrosis. Disc spaces appear preserved. Sacrum and SI joints appear intact. XR/XR lumbar spine 2-3V IMPRESSION: No acute findings of the lumbar spine. Electronically signed by: Price Calderón MD 07/22/2025 04:26 PM EST RP Dictated By: Price Calderón MD Signed By: <Electronically signed by Price Calderón MD in OV> 07/22/25 1626 DD/ 1618 TD/TT: 07/22/25 1618 Call Center Agent: Procedure Note Donotuseinterpreter, Image - 07/22/2025 [place] [address] XRay Report Signed Patient: Yoel Martell#: [id number] 2088 : 1975Acct:[id number] Age/Sex: 50 / FADM Date: 07/22/25 Loc: HO.[facility] Attending Dr: Clara Shearer MD Ordering Physician: Clara Shearer MD Date of Service: 07/22/25 Procedure(s): XR lumbar spine 2-3V Accession Number(s): [id number] cc: Clara Shearer MD Reason for Exam: back pain, fall EXAMINATION: XR LUMBOSACRAL SPINE CLINICAL INFORMATION: back pain, fall COMPARISON: None available. TECHNIQUE: Three views of the lumbosacral spine. FINDINGS: There is no scoliosis. There is a normal lordosis. There is transitional lumbosacral anatomy present. There is a partially lumbarized S1 vertebral body. There is no fracture, compression deformity, or suspicious bone lesion. There is no subluxation. Sagittal alignment is normal. Normal facet alignment. No significant facet arthrosis. Disc spaces appear preserved. Sacrum and SI joints appear intact. XR/XR lumbar spine 2-3V IMPRESSION: No acute findings of the lumbar spine. Electronically signed by: Price Calderón MD 07/22/2025 04:26 PM EST RP Dictated By: Price Calderón MD Signed By: <Electronically signed by Price Calderón MD in OV> 07/22/25 1626 DD/ 1618 TD/TT: 07/22/25 1618 Call Center Agent: Clara Shearer MD IMG XR PROCEDURES Final Result documented in this encounter Visit Diagnoses Diagnosis Rheumatic aortic valve insufficiency- Primary History of mechanical aortic valve replacement Mitral valve stenosis, unspecified etiology Chronic anticoagulation Encounter for long-term (current) use of anticoagulants Prediabetes Other abnormal glucose Gastroesophageal reflux disease, unspecified whether esophagitis present Transaminitis Nonspecific elevation of levels of transaminase or lactic acid dehydrogenase (LDH) Iron deficiency anemia due to chronic blood loss Iron deficiency anemia secondary to blood loss (chronic) Chronic nonintractable headache, unspecified headache type Numbness and tingling of right hand AYESHA (obstructive sleep apnea) Obstructive sleep apnea (adult) (pediatric) Acute low back pain without sciatica, unspecified back pain laterality documented in this encounter Additional Health Concerns Assessment Noted Time PHQ-9 Depression Total Score: 0 06/10/20 25 9:47 AM EST documented as of this encounter Care Teams Java Swing Developer Relationship Specialty Start Date End Date Clara Shearer MD [address] [place] [phone] PCP - General Family Medicine 07/24/18 documented as of this encounter
--- OUTSIDE RECORDS SUMMARY | 2025-07-22 15:30 | XMS_ITS | Encounter Summary ---
Author Organization [employer] Address [address] [facility] 7t [place] [address] Care Team Providers Care Janitorial Services Supervisor Name Role Phone Clara Shearer MD Primary Care Provider [phone] Reason for Visit * Reason Comments Consult Pt stated her crown fell out. 1 pa taken Encounter Details Date Type Department Care Team (Late st Contact Info) Description 07/22/2025 3:30 PM EST Office Visit [facility] ADULT DENTAL [address] [place] [address] Lyn-Daina Méndez, DDS [address] [place], [place] [phone] Open fracture of tooth, initial encounter (Primary Dx) Social History Tobacco Use Types [...] AM EDT documented as of this encounter Functional Status * Audit Alcohol Screening Question Answer Date of Assessment Author How often do you have a drin k containing alcohol? 0 07/22/2025 3:20 PM EST Lazaro Mccollum DDS How often do you have six or more drinks on one occasion? 0 07/22/2025 3:20 PM EST Daina Murillo DDS Audit-C Score 0 07/22/2025 3:20 PM EST Daina Leon DDS documented as of this encounter Progress Notes * Daina Mccollum DDS - 07/22/2025 3:30 PM EST Dental procedures in this visit D0140 - LIMITED ORAL EVALUATION - PROBLEM FOCUSED (Completed) Service provider: Daina Mccollum DDS Billing provider: Daina Mccollum DDS D0220 - INTRAORAL - PERIAPICAL FIRST RADIOGRAPHIC IMAGE (Completed) Service provider: Daina Mccollum DDS Billing provider: Daina Mccollum DDS D9450 - CASE PRESENTATION, DETAILED AND EXTENSIVE TREATMENT PLANNING (Completed) Service provider: Daina Mccollum DDS Billing provider: Daina Mccollum DDS Patient ID: Thalia Martell is a 50 y.o. female. Time Out: No data recorded Location: [facility] Tooth: #11 Procedure: Limited exam Verified the above with patient, cardiology physician assistant, and provider. Confirmed via patient's chart, intraorally and by radiographs. Compress Trucker: not applicable Chief Complaint Patient presents with Consult Pt stated her crown fell out. 1 pa taken Medical Hx: Vitals: There were no vitals taken for this visit. Medical History[1] Medications: Encounter Medications[2] Subjective: Pain: not present Duration: 2 months while eating an apple Objective: Tooth: #11 Radiographs Taken: PA(s) Radiographic Findings: fractured tooth #11, complete detachment of crown. Present RCT observed Clinical Findings: slight invagination of surrounding gingival tissue with erythematous and edematous aspect Diagnosis: Fracture tooth Assessment/Plan: Referred for EXT Add tooth to existing RPD Prescriptions: Amoxicillin 500 mg/tid/7 days 21 caps Amoxicillin 500 mg/4 tabs/1 hr prior dental procedure 12 caps Tylenol 650/tid/pr 15 tabs Pt tolerated procedure well, all questions answered. Dismissed in good condition. NV: Ext Summons Server: Jill Cloud Dentist: Daina Mccollum DDS [1] Past Medical History: Diagnosis Date GERD (gastroesophageal reflux disease) Heart disease Idiopathic acute pancreatitis without infection or necrosis 03/19/2023 Pain in female pelvis 09/22/2022 [2] Outpatient Encounter Medications as of 07/22/2025 Medication Sig Dispense Refill celecoxib (CeleBREX) 200 MG capsule Take 1 capsule (200 mg) by mouth if needed at bedtime for mild pain. 15 capsule 1 cyclobenzaprine (Flexeril) 10 MG tablet Take 1 tablet (10 mg) by mouth if needed in the morning, atnoon, and at bedtime for muscle spasms for up to [address]. [address] with medication 20 tablet 0 simethicone (Mylicon,Gas-X) 125 MG capsule Take 125 mg by mouth if needed in the morning, at noon, in the evening, and at bedtime. warfarin (Coumadin) 2 MG tablet TAKE 2 TO 4 TABLETS BY MOUTH DAILY DIRECTED BY COUMADIN CLINIC 120 tablet 11 acetaminophen (Tylenol 8 Hour) 650 MG ER tablet Take 1 tablet (650 mg) by mouth every 8 (eight) hours if needed for moderate pain for up to 10 days. Do not crush, chew, or split. 15 tablet 0 acetaminophen (Tylenol) 325 MG tablet Take 650 mg by mouth every 6 (six) hours. (Patient not taking: Reported on 07/22/2025) amoxicillin (Amoxil) 500 MG capsule Take 1 capsule (500 mg) by mouth every 8 (eight) hours for 7 days. 21 capsule 0 amoxicillin (Amoxil) 500 MG capsule Take 4 capsules of amoxicillin 500 mg 1 hour prior dental procedure 12 capsule 0 Ascorbic Acid (vitamin C) 500 MG tablet TAKE 1 TABLET BY MOUTH TWICE DAILY (Patient not taking: Reported on 07/22/2025) 180 tablet 0 cetirizine (ZyrTEC) 10 MG tablet TAKE 1 TABLET BY MOUTH EVERY DAY (Patient not taking: Reported on 07/22/2025) 30 tablet 11 cholecalciferol (D3 Super Strength) 50 MCG (2000 UT) capsule TAKE 1 CAPSULE BY MOUTH EVERY DAY (Patient not taking: Reported on 07/22/2025) 90 capsule 0 Diclofenac Sodium 1 % gel Apply to affected area once or twice daily as needed for pain (Patient not taking: Reported on 07/22/2025) 150 g 3 olopatadine (Pataday) 0.2 % ophthalmic solution INSTILL 1 DROP INTO THE AFFECTED EYE(S) DAILY NEEDED FOR ITCHING (Patient not taking: Reported on 07/22/2025) omeprazole (PriLOSEC) [address] capsule Take 1 capsule (20 mg) by mouth before breakfast. Do not crush or chew. (Patient not taking: Reported on 07/22/2025) 30 capsule 11 sennosides (Senokot) 8.6 MG tablet Take 2 tablets by mouth at bedtime. (Patient not taking: Reported on 07/22/2025) Sodium Fluoride (PreviDent 5000 Plus) 1.1 % cream Apply 1 mg to teeth 3 times daily. (Patient not taking: Reported on 07/22/2025) 1 g 3 SUMAtriptan (Imitrex) 100 MG tablet TAKE 1 TABLET BY MOUTH AT ONSET OF MIGRAINE. MAY REPEAT ONCE AFTER 2 HOURS IF NEEDED, DO NOT EXCEED 2 TABLETS / 24 HOURS (Patient not taking: Reported on 07/22/2025) tolterodine LA (Detrol LA) 4 MG 24 hr capsule Take 1 capsule (4 mg) by mouth Once per day. (Patientnot taking: Reported on 07/22/2025) 90 capsule 3 No facility-administered encounter medications on file as of 07/22/2025. documented in this encounter Plan of Treatment Upcoming Encounters Date Type Department Care Team (Late st Contact Info) Description 08/20/2025 2:15 PM EST Office Visit [facility] ADULT DENTAL [address] [place] [address] Katt Espinoza [address] [place] [address] 09/16/2025 2:30 PM EST Office Visit [facility] ADULT DENTAL [address] [place] [address] Waylon Gutierrez DDS [address] [place] [address] Scheduled Orders Name Type Priority Associated Diagnoses Orde r Schedule 11 11 EXTRACTION, ERUPTED TOOTH OR EXPOSED ROOT (ELEVATION/FORCEPS REMOVAL) Dental Routine [address] arting 07/22/2025 documented as of this encounter Procedures Procedure Name Priority Date/Time Associated Diagnosis Comments LIMITED ORAL EVALUATION - PROBLEM FOCUSED Routine 07/22/2025 3:30 PM EST Open fracture of tooth, initial encounter INTRAORAL - PERIAPICAL FIRST RADIOGRAPHIC IMAGE Routine 07/22/2025 3:30 PM EST Open fracture of tooth, initial encounter CASE PRESENTATION, DETAILED AND EXTENSIVE TREATMENT PLANNING Routine 07/22/2025 3:30 PM EST Open fracture of tooth, initial encounter documented in this encounter Visit Diagnoses Diagnosis Open fracture of tooth, initial encounter- Primary documented in this encounter Additional Health Concerns Assessment Noted Time PHQ-9 Depression Total Score: 0 06/10/20 9:47 AM EST documented as of this encounter Care Teams Janitorial Services Supervisor Relationship Specialty Start Date End Date Clara Shearer MD [address] [place] [phone] PCP - General Family Medicine 07/24/18 documented as of this encounter
[2025-07-22 16:51] LABS: Alanine Aminotransferase 36 U/L (0-31); Albumin Level 4.4 g/dL (3.5-5.0); Alkaline Phosphatase 89 U/L (39-117); Aspartate Amino Transferase 32 U/L (5-31); Total Protein 7.5 g/dL (6.5-8.0)
--- OUTSIDE RECORDS SUMMARY | 2025-07-22 18:29 | XMS_ITS | Encounter Summary ---
Author Organization [employer] Address [address] [facility] [address] 7t [place] [address] Care Team Providers Care Head Of Talent Management Name Role Phone Clara Shearer MD Primary Care Provider [phone] Encounter Details Date Type Department Care Team (Latest Contact Info) Description 07/22/2025 Travel Social History Tobacco Use Types Packs/Day Years [...] Office Visit [facility] ADULT D[facility] [address] [place] [address] Olga, Katt [address] [place] [address] 09/16/2025 2:30 PM EST Office Visit [facility] [address] [place] [address] Waylon Gutierrez DDS [address] [place] [address] documented as of this encounter Visit Diagnoses Not on filedocumented in this encounter Additional Health Concerns Assessment Noted Time PHQ-9 Depression Total Score: 0 06/10/20 25 9:47 AM EST documented as of this encounter Care Teams Head Of Talent Management Relationship Specialty Start Date End Date Clara Shearer MD [address] [place], [place] [phone] PCP - General Family Medicine 07/24/18 documented as of this encounter
--- OUTSIDE RECORDS SUMMARY | 2025-07-22 18:29 | XMS_ITS | Encounter Summary ---
Author Organization [employer] Address [address] [facility] 7t [place] [address] Care Team Providers Care Meat Carver Name Role Phone Clara Shearer MD Primary Care Provider [phone] Reason for Referral * Consultation (Routine) - Closed Specialty Diagnoses / Procedures Referred By Ron brewer Referred To Contact Orthopaedic Surgery Diagnoses Chronic right shoulder pain Clara Shearer MD [address] [place] [address] Phone: tel: fax: [facility] [address] [place] [address] Kathi [address] [place] [address] Phone: tel: Referral ID Status Reason Start Date Expiration Date V isits Requested Visits Authorized [id number] Closed Specialty Services Required 06/11/2025 06/11/2026 1 1 Encounter Details Date Type Department Care Team (Late st Contact Info) Description 06/11/2025 Orders Only [facility] MEDICINE [address] [place] [address] Clara Shearer MD [address] [place] [address] Chronic right shoulder pain (Primary [...] Description 08/20/2025 2:15 PM EST Office Visit [facility] ADULT DENTAL [address] [place] [address] Katt Espinoza [address] [place] [address] 09/16/2025 2:30 PM EST Office Visit [facility] ADULT DENTAL [address] [place] [address] Waylon Gutierrez DDS [address] [place] [address] Scheduled Referrals Name Type Priority Associated Diagnoses [...] documented as of this encounter Care Teams Meat Carver Relationship Specialty Start Date End Date Clara Shearer MD [address] [place] [address] PCP - General Family Medicine 07/24/18 documented as of this encounter
--- OUTSIDE RECORDS SUMMARY | 2025-07-22 18:29 | XMS_ITS | Encounter Summary ---
Author Organization [employer] Address [address] [facility] 7t [place] [address] Care Team Providers Care Motor Boss Name Role Phone Clara Shearer MD Primary Care Provider [phone] Encounter Details Date Type Department Care Team ([facility] st Contact Info) Description 06/12/2025 Results Follow-Up [facility] MEDICINE [address] [place], [place] [phone] Clara Shearer MD [address] [place], [place] [phone] XR Chest 2 Views Social History Tobacco [...] Description 08/20/2025 2:15 PM EST Office Visit [facility] ADULT DENTAL [address] [place] [address] Katt Espinoza [address] [place] [address] 09/16/2025 2:30 PM EST Office Visit [facility] ADULT DENTAL [address] [place] [address] Waylon Gutierrez DDS [address] [place] [address] documented as of this encounter Visit Diagnoses Not on filedocumented in this encounter Additional Health Concerns Assessment Noted Time PHQ-9 Depression Total Score: 0 06/10/20 25 9:47 AM EST documented as of this encounter Care Teams Motor Boss Relationship Specialty Start Date End Date Clara Shearer MD [address] [place] [address] PCP - General Family Medicine 07/24/18 documented as of this encounter
--- OUTSIDE RECORDS SUMMARY | 2025-07-22 18:29 | XMS_ITS | Encounter Summary ---
Author Organization [employer] Address [address] [place] [address] 7t [place] [address] Care Team Providers Care Copy Lathe Operator Name Role Phone Clara Shearer MD Primary Care Provider [phone] Reason for Referral * Imaging (Routine) - Authorized Specialty Diagnoses / Procedures Referred By Ron brewer Referred To Contact Radiology Diagnoses Transaminitis RUQ pain Procedures US Abdomen Comp w elastography Clara Shearer MD [address] [place] [address] Phone: tel: fax: [address] [place] [address] [address] Phone: tel: fax: Referral ID Status Reason Start Date Expiration Date V isits Requested Visits Authorized [id number] Authorized 06/11/2025 06/11/2026 1 1 Encounter Details Date Type Department Care Team (Late st Contact Info) Description 06/11/2025 Orders Only [facility] MEDICINE [address] [place] [address] Clara Shearer MD [address] [place] [address] Transaminitis (Primary Dx); RUQ pain [...] Office Visit [facility] ADULT DENTAL [address] [place] [address] Katt Espinoza [address] [place] [address] 09/16/2025 2:30 PM EST Office Visit [facility] ADULT DENTAL [address] [place] [address] Waylon Gutierrez DDS [address] [place] [address] Scheduled Orders Name Type Priority Associated Diagnoses [...] EST) Hepatitis B Surface Ag Negative Negative [facility] Venous blood specimen / Unknown 06/18/2025 8:37 AM EST 06/18/2025 8:43 AM EST us Clara Shearer MD LAB BLOOD ORDERABLES Final Resul t Performing Organization Address City/[facility]/ZIP Co de Phone Number [facility] [address] [place] [phone] * Hepatitis C Antibody with Reflex to HCV, RNA, Quantitative, Real-Time PCR (06/18/2025 8:37 AM EST) Hepatitis C Antibody Nonreactive Nonreactive [facility] Comment:Antibodies to HCV no t detected; does not exclude early acuteHCV infection. Venous blood specimen / Unknown 06/18/2025 8:37 AM EST 06/18/2025 8:43 AM EST us Clara Shearer MD LAB BLOOD ORDERABLES Final Resul t [facility] [address] [place] [phone] [phone] * (ABNORMAL) Hepatic Function Panel (06/18/2025 8:37 AM EST) Bilirubin, Total 0.3 0.0 - 1.0 mg/dL [facility] Bilirubin, Direct 0.1 0.0 - 0.5 mg/dL [facility] Aspartate Amino Transferase 65(H) 5 - 31 U/L [facility] Alanine Aminotransferase 162(H) 0 - 31 U/L [facility] Total Protein 7.7 6.5 - 8.0 g/dL [facility] Albumin Level 4.5 3.5 - 5.0 g/dL [facility] Alkaline Phosphatase 121(H) 39 - 117 U/L [facility] Blood Venous blood specimen / Unknown 06/18/2025 8:37 AM EST 06/18/2025 8:43 AM EST us Clara Shearer MD LAB BLOOD ORDERABLES Final Resul t [facility] [address] [place] [address] [phone] documented in this encounter Visit Diagnoses Diagnosis Transaminitis- Primary Nonspecific elevation of levels of transaminase or lactic acid dehydrogenase (LDH) RUQ pain Abdominal pain, right upper quadrant documented in this encounter Additional Health Concerns Assessment Noted Time PHQ-9 Depression Total Score: 0 06/10/20 25 9:47 AM EST documented as of this encounter Care Teams Copy Lathe Operator Relationship Specialty Start Date End Date Clara Shearer MD [address] [place] [address] PCP - General Family Medicine 07/24/18 documented as of this encounter
--- OUTSIDE RECORDS SUMMARY | 2025-07-22 18:29 | XMS_ITS | Encounter Summary ---
Author Organization [facility] Address [address] [place] [address] Phone Care Team Providers Care Licensed Mass Real Estate Appraiser Name Role Phone Clara Shearer MD Primary Care Provider [phone] Encounter Details Date Type Department Care Team (Late st Contact Info) Description 05/06/2025 Procedure Pass [facility] Periop [address] [place] [address] Social History Tobacco Use Types Packs/Day Years [...] on filedocumented in this encounter Care Teams Licensed [employer] Real Estate Appraiser Relationship Specialty Start Date End Date Clara Shearer MD [address] [place] [address] PCP - General Family Medicine 02/16/22 documented as of this encounter Additional Source Comments The information contained in this document represents components of the legal health record. It is not the complete legal health record.[facility]
--- OUTSIDE RECORDS SUMMARY | 2025-07-22 18:29 | XMS_ITS | Encounter Summary ---
Author Organization [facility] Address [address] [place] [address] Phone Care Team Providers Care Entry Level Business Analyst Name Role Phone Clara Shearer MD Primary Care Provider [phone] Encounter Details Date Type Department Care Team (Late st Contact Info) Description 12/04/2022 Procedure Pass [facility], Ct Scan - [address] [address] Social History Tobacco Use Types Packs/Day Years [...] documented as of this encounter Care Teams Entry Level Business Analyst Relationship Specialty Start Date End Date Clara Shearer MD [address] [place] [address] PCP - General Family Medicine 02/16/22 documented as of this encounter Additional Source Comments The information contained in this document represents components of the legal health record. It is not the complete legal health record.[facility]
--- OUTSIDE RECORDS SUMMARY | 2025-07-22 18:29 | XMS_ITS | Encounter Summary ---
Author Organization [employer] Address [address] [place] [address] [place], [place] [address] Care Team Providers Care Scalping Machine Operator Name Role Phone Clara Shearer MD Primary Care Provider [phone] Reason for Referral * Consultation (Routine) - Closed Specialty Diagnoses / Procedures Referred By Ron brewer Referred To Contact Physical Therapy Diagnoses Right hip pain Chronic right-sided low back pain, unspecified whether sciatica present Clara Shearer MD [address] [place] [address] Phone: tel: fax: AT Physical Therapy - [address] [address] Phone: tel: fax: Referral ID Status Reason Start Date Expiration Date V isits Requested Visits Authorized [id number] Closed Specialty Services Required 11/14/2023 11/13/2024 1 1 Encounter Details Date Type Department Care Team (Late st Contact Info) Description 11/14/2023 Orders Only [facility] MEDICINE [address] [place], [place] [phone] Clara Shearer MD [address] [place], [place] [phone] Right hip pain (Primary Dx); Chronic right-sided [...] Description 08/20/2025 2:15 PM EST Office Visit [facility] ADULT DENTAL [address] [place] [address] Katt Espinoza [address] [place] [address] 09/16/2025 2:30 PM EST Office Visit [facility] ADULT DENTAL [address] [place] [address] Waylon Gutierrez, DDS [address] [facility] [place] [address] Scheduled Referrals Name Type Priority Associated Diagnoses [...] PM EDT Narrative 11/25/2023 8:18 AM EDT [address] [address] XRay Report Signed Patient: Thalia Martell MR#: [id number] : 1975 Acct:[id number] Age/Sex: 48 / F ADM Date: 11/16/23 Loc: HO.YANELI Attending Dr: Clara Shearer MD Ordering Physician: Clara Shearer MD Date of Service: 11/16/23 Procedure(s): XR thoracic spine 2V Accession Number(s): [id number] cc: Clara Shearer MD EXAMINATION: XR THORACOLUMBAR [...] MD in OV> 11/25/23814 DD/ 1549 TD/TT: Wood Caulker: QUINN Procedure Note Donotarmindainterpreter, Image - 11/25/[address] [address] XRay Report Signed Patient: Yoel Martell#: [id number] : 1975Acct:[id number] Age/Sex: 48 / FADM Date: 11/16/23 Loc: HO.XRAY Attending Dr: Clara Shearer MD Ordering Physician: Clara Shearer MD Date of Service: 11/16/23 Procedure(s): XR thoracic spine 2V Accession Number(s): [id number] cc: Clara Shearer MD EXAMINATION: XR THORACOLUMBAR [...] Campos MD inOV> 11/25/23814 DD/ 1549 TD/TT: Wood Caulker: QUINN Clara Shearer MD IMG XR PROCEDURES [...] documented as of this encounter Care Teams Scalping Machine Operator Relationship Specialty Start Date End Date Clara Shearer MD [address] [place] [address] PCP - General Family Medicine 07/24/18 documented as of this encounter
--- OUTSIDE RECORDS SUMMARY | 2025-07-22 18:29 | XMS_ITS | Encounter Summary ---
Author Organization [employer] Address [address] [facility] 7t [place] [address] Care Team Providers Care Field Laboratory Operator Name Role Phone Clara Shearer MD Primary Care Provider [phone] Encounter Details Date Type Department Care Team (Latest Contact Info) Description 06/11/2025 Results Follow-Up [facility] MEDICINE [address] [place], [place] [phone] Clara Shearer MD [address] [place], [place] [phone] Hemoglobin A1c, Comprehensive Metabolic Panel, Lipid Panel [...] Description 08/20/2025 2:15 PM EST Office Visit [facility] ADULT DENTAL [address] [place] [address] Olga, Katt [address] [place] [address] 09/16/2025 2:30 PM EST Office Visit [facility] ADULT DENTAL [address] [place] [address] Waylon Gutierrez DDS [address] [place] [address] documented as of this encounter Visit Diagnoses Diagnosis Transaminitis- Primary Nonspecific elevation of levels of transaminase or lactic acid dehydrogenase (LDH) documented in this encounter Additional Health Concerns Assessment Noted Time PHQ-9 Depression Total Score: 0 06/10/20 25 9:47 AM EST documented as of this encounter Care Teams Field Laboratory Operator Relationship Specialty Start Date End Date Clara Shearer MD [address] [place] [address] PCP - General Family Medicine 07/24/18 documented as of this encounter
--- OUTSIDE RECORDS SUMMARY | 2025-07-22 18:29 | XMS_ITS | Encounter Summary ---
Author Organization [employer] Address 75 [facility] 7t [place] [address] Care Team Providers Care Rn Occupational Name Role Phone Clara Shearer MD Primary Care Provider [phone] Reason for Visit * Reason Onset Date Comments Results 06/11/2025 Encounter Details Date Type Department Care Team ([facility] st Contact Info) Description 06/11/2025 Results Follow-Up [facility] MEDICINE [address] [place] [address] Clara Shearer MD [address] [place] [address] XR Shoulder 2+ Views Right Social History [...] TC placed to the pt with BLS crackling press operator #[id number] to inform of PCP message below indicating [...] Pt advised this can be done at [facility] or [facility]. Pt agreeable and advised that PCP will [...] Office Visit [facility] ADULT DENTAL [address] [place] [address] Olga, Katt [address] [place] [address] 09/16/2025 2:30 PM EST Office Visit [facility] ADULT DENTAL [address] [place] [address] Waylon Gutierrez DDS [address] [place] [address] documented as of this encounter Visit Diagnoses Not on filedocumented in this encounter Additional Health Concerns Assessment Noted Time PHQ-9 Depression Total Score: 0 06/10/20 25 9:47 AM EST documented as of this encounter Care Teams Rn Occupational Relationship Specialty Start Date End Date Clara Shearer MD [address] [place] [phone] PCP - General Family Medicine 07/24/18 documented as of this encounter
--- OUTSIDE RECORDS SUMMARY | 2025-07-22 18:29 | XMS_ITS | Encounter Summary ---
Author Organization [facility] Address [address] [place] [address] Phone Care Team Providers Care Web Retailer Name Role Phone Unknown, Unknown Primary Care Provider Clara Thompson MD Primary Care Provider [phone] Clara Shearer MD Primary Care Provider [phone] Encounter Details Date Type Department Care Team (Late st Contact Info) Description 11/09/2020 Procedure Pass [facility], Ct Scan - [facility] [address] [place] [address] Social History Tobacco Use Types Packs/Day Years [...] as of this encounter Care Teams Web Retailer Relationship Specialty Start Date End Date Unknown, Unknown, PCP - General 02/24/18 11/09/20 Clara Shearer MD [address] [place] [address] PCP - General Family Medicine 11/10/20 02/15/22 Clara Shearer MD [address] [place] [address] PCP - General Family Medicine 02/16/22 documented as of this encounter Additional Source Comments The information contained in this document represents components of the legal health record. It is not the complete legal health record.[facility]
--- OUTSIDE RECORDS SUMMARY | 2025-07-22 18:29 | XMS_ITS | Encounter Summary ---
Author Organization [employer] Address [address] [place] [address] 7 [place] [address] Care Team Providers Care Fabric And Textile Factory Worker Name Role Phone Clara Shearer MD Primary Care Provider [phone] Reason for Referral * Imaging (Routine) - Closed Specialty Diagnoses / Procedures Referred By Ron brewer Referred To Contact Radiology Diagnoses Metabolic dysfunction-associated steatotic liver disease (MASLD) Procedures US Abdomen Comp w elastography Clara Shearer MD [address] [place] [address] Phone: tel: fax: [address] [address] Phone: tel: fax: Referral ID Status Reason Start Date Expiration Date Visits Re quested Visits Authorized [id number] Closed 11/17/2023 11/16/2024 1 1 Encounter Details Date Type Department Care Team (Late st Contact Info) Description 11/17/2023 Orders Only [facility] MEDICINE [address] [place], [place] [phone] Clara Shearer MD [address] [place], [place] [phone] Metabolic dysfunction-associated steatotic liver disease (MASLD) (Primary [...] 2:15 PM EST Office Visit [facility] ADULT DENTAL [address] [place] [address] Katt Espinoza [address] [place] [address] 09/16/2025 2:30 PM EST Office Visit [facility] ADULT DENTAL [address] [place] [address] Waylon Gutierrez DDS [address] [place] [address] documented as of this encounter Procedures Procedure Name Priority Date/Time Associated Diagnosis Comments US ABDOMEN COMPLETE WITH ELASTOGRAPHY Routine 12/05/2023 9:26 AM EDT Metabolic dysfunction-associa ebony steatotic liver disease (MASLD) documented in this encounter Results * US Abdomen Comp w elastography (12/05/2023 9:26 AM EDT) Anatomical Region Laterality Modality Abdomen Ultrasound 12/05/2023 9:26 AM EDT Narrative 12/12/2023 9:41 AM EDT [address] [address] Ultrasound Report Signed Patient: Thalia Martell MR#: [id number] 2088 : 1975 Acct:[id number] Age/Sex: 48 / F ADM Date: 12/05/23 Loc: HO.US Attending Dr: Clara Shearer MD Ordering Physician: Clara Shearer MD Date of Service: 12/05/23 Procedure(s): US abdomen comp w elastography Accession Number(s): [id number] cc: Clara Sheaerr MD EXAMINATION: US COMPLETE ABDOMEN WITH LIVER [...] MD in OV> 12/12/2337 DD/ 5 TD/TT: Monitor Tech: SS Procedure Note Donotuseinterpreter, Image - 12/12/2023 [place] [address] Ultrasound Report Signed Patient: Yoel Martell#: [id number] 2088 : 1975Acct:[id number] Age/Sex: 48 / FADM Date: 12/05/23 Loc: HO.US Attending Dr: Clara Shearer MD Ordering Physician: Clara Shearer MD Date of Service: 12/05/23 Procedure(s): US abdomen comp w elastography Accession Number(s): [id number] cc: Clara Shearer MD EXAMINATION: US COMPLETE [...] MD in OV> 12/12/2337 DD/ 5 TD/TT: Monitor Tech: SS us Clara Shearer MD IMG US PROCEDURES Final Result documented in this encounter Visit Diagnoses Diagnosis Metabolic dysfunction-associated steatotic liver disease (MASLD)- Primary documented in this encounter Additional Health Concerns Assessment Noted Time PHQ-9 Depression Total Score: 0 10/17/19 24 3:45 PM EDT documented as of this encounter Care Teams Fabric And Textile Factory Worker Relationship Specialty Start Date End Date Clara Shearer MD [address] [place] [address] PCP - General Family Medicine 07/24/18 documented as of this encounter
--- OUTSIDE RECORDS SUMMARY | 2025-07-22 18:29 | XMS_ITS | Clinical Summary ---
Author Organization [facility] Address [address] [place] [address] Care Team Providers Care Quote Clerk Name Role Phone Manfred Clara Primary Care Provider [phone] Allergies No known active allergies Medications aspirin [...] to Health Maintenance Results * Due to [place] state law, this organization might not be sharing negative HIV tests. * Pap (12/17/2020 2:37 PM EDT) Specimen Adequacy Satisfactory for evaluation [facility] MANUAL 1 5:02 PM EDT [facility] SYSTEMSustainable Marine EnergyUPPER [facility]LEY [facility] [employer] [facility] ANATOMIC PATHOLOGY LABORATORY Pathologist Cytology Interpretation Negative for intraepithelial lesion or malignancy. [facility] MANUAL 1 5:02 PM EDT [facility] SYSTEMAngioScoreST. [facility] [employer] [facility] ANATOMIC PATHOLOGY LABORATORY at 1702 EDT Comment:This is the result o f a morphological screening test with an inherent possibility of a false negative interpretation. Phone Banker Statement This Pap test was examined by the [facility] Imaging System, [employer], [place], [place]. This Pap test was examined in accordance with the [facility] Cytopathology Laboratory written policy, which incorporates all CLIA mandates. Screening guidelines can be found in Am J Clin Pathol 2012;137:516-542. We endorse the practice guidelines developed by ASCCP and published in the Journal Lower Genital Tract Disease 17(5):S1-S27 (2013). [facility] MANUAL 1 5:02 PM EDT [facility] HOSPITALBrightFunnelHI [employer] Partners [facility] ANATOMIC PATHOLOGY LABORATORY Clinical History Hematometra [facility] MANUAL 1 5:02 PM EDT [facility] SYSTEMSustainable Marine EnergyUPPER VALLEY [facility] [employer] [facility] ANATOMIC PATHOLOGY LABORATORY Resulting Agency Case was signed out at [facility], Department of Pathology, [employer] 3 CLIA [id number] [facility] MANUAL 1 5:02 PM EDT [facility] SYSTEMSustainable Marine EnergyUPPER VALLEY [facility] [employer] [facility] ANATOMIC PATHOLOGY LABORATORY Report Header Gynecologic Cytology Report Case: [id number] Authorizing Provider: Susan Girard Collected: 12/17/2020 1437 Ordering Location: [facility] Received: 12/17/2020 1626 [facility] Obstetrics and Gynecology First Screen: Sissy Dooley Specimen: Screening ThinPrep Pap, Cervix/Endocervix 5:02 PM EDT [facility] Brushing Cervix uteri structure / Unknown Non-Blood Collection / Unknown 12/17/2020 2:37 PM EDT 12/17/2020 4:26 PM EDT us Susan Girard ANTIQUE CLOCKS REPAIRER LAB PATHOLOGY/CYTOLOGY ORDERABL ES Final Result [facility] [address] [place] [address], [place] from Last 3 Months or Most Recently Relevant to Health Maintenance Insurance [facility]FREE CARE [facility] Care Teams Quote Clerk Relationship Specialty Start Date End Date Clara Shearer [address] [place] [address] PCP - General Family Medicine 05/26/20
--- OUTSIDE RECORDS SUMMARY | 2025-07-22 18:29 | XMS_ITS | Encounter Summary ---
Author Organization [employer] Address [address] [facility] 7t [place] [address] Care Team Providers Care Pile Trimmer Name Role Phone Clara Shearer MD Primary Care Provider [phone] Encounter Details Date Type Department Care Team ([facility] st Contact Info) Description 07/22/2025 Results Follow-Up [facility] MEDICINE [address] [place], [place] [phone] Clara Shearer MD [address] [place], [place] [phone] Hepatic Function Panel Social History Tobacco Use Types Packs/Day Years [...] Description 08/20/2025 2:15 PM EST Office Visit [facility] ADULT DENTAL [address] [place] [address] Katt Espinoza [address] [place] [address] 09/16/2025 2:30 PM EST Office Visit [facility] ADULT DENTAL [address] [place] [address] Waylon Gutierrez DDS [address] [place] [address] documented as of this encounter Visit Diagnoses Not on filedocumented in this encounter Additional Health Concerns Assessment Noted Time PHQ-9 Depression Total Score: 0 06/10/20 25 9:47 AM EST documented as of this encounter Care Teams Pile Trimmer Relationship Specialty Start Date End Date Clara Shearer MD [address] [place] [address] PCP - General Family Medicine 07/24/18 documented as of this encounter
--- OUTSIDE RECORDS SUMMARY | 2025-07-22 18:29 | XMS_ITS | Encounter Summary ---
Author Organization [facility] Address [address] [place] [address] Phone Care Team Providers Care Disability Insurance Hearing Officer Name Role Phone Clara Shearer MD Primary Care Provider [phone] Encounter Details Date Type Department Care Team (Late st Contact Info) Description 05/05/2025 Procedure Pass [facility] Echocardiography [address] [place] [address] Social History Tobacco Use Types Packs/Day Years [...] on filedocumented in this encounter Care Teams Disability Insurance Hearing Officer Relationship Specialty Start Date End Date Clara Shearer MD [address] [place] [address] PCP - General Family Medicine 02/16/22 documented as of this encounter Additional Source Comments The information contained in this document represents components of the legal health record. It is not the complete legal health record.[facility]
--- OUTSIDE RECORDS SUMMARY | 2025-07-22 18:29 | XMS_ITS | Encounter Summary ---
Author Organization [employer] Address [address] [facility] 7t [place] [address] Care Team Providers Care Home Assessment Nurse Name Role Phone Clara Shearer MD Primary Care Provider [phone] Encounter Details Date Type Department Care Team ([facility] st Contact Info) Description 06/11/2025 Orders Only [facility] MEDICINE [address] [place], [place] [phone] Clara Shearer MD [address] [place], [place] [phone] Chronic right shoulder pain (Primary Dx); Nodule [...] Description 08/20/2025 2:15 PM EST Office Visit [facility] ADULT DENTAL [address] [place] [address] Olga, Katt [address] [place] [address] 09/16/2025 2:30 PM EST Office Visit [facility] ADULT DENTAL [address] [place] [address] Waylon Gutierrez, DDS [address] [place] [address] documented as of this encounter Procedures Procedure Name Priority Date/Time Associated Diagnosis Comments XR CHEST 2 VIEWS Routine 06/12/2025 1:47 PM EST Nodule of upper lobe of right lung documented in this encounter Results * XR Chest 2 Views (06/12/2025 1:47 PM EST) Anatomical Region Laterality Modality Chest Radiographic Darlene ging 06/12/2025 1:47 PM EST Narrative 06/12/2025 2:12 PM EST [address] [address] XRay Report Signed Patient: Thalia Martell MR#: [id number] 2088 : 1975 Acct:[id number] Age/Sex: 50 / F ADM Date: 06/12/25 Loc: HOJamesXRGREGORY Attending Dr: Clara Shearer MD Ordering Physician: Clara Shearer MD Date of Service: 06/12/25 Procedure(s): XR chest 2V Accession Number(s): [id number] cc: Clara Shearer MD Reason for Exam: [...] by: Dorian Jung MD 06/12/2025 02:09 PM [facility] Dictated By: Dorian Cruz MD Signed By: <Electronically signed by Dorian Chau MD in OV> 06/12/25 1409 DD/ 1347 TD/TT: 06/12/25 1350 Maternal Child Nurse: Procedure Note Donotuseinterpreter, Image - 06/12/[address] [address] XRay Report Signed Patient: Antonina MartellR#: [id number] 2088 : 1975Acct:[id number] Age/Sex: 50 / FADM Date: 06/12/25 Loc: VICKIE Attending Dr: Clara Shearer MD Ordering Physician: Clara Shearer MD Date of Service: 06/12/25 Procedure(s): XR chest 2V Accession Number(s): [id number] cc: Clara Shearer MD Reason for Exam: [...] 06/12/25 1409 DD/ 1347 TD/TT: 06/12/25 1350 Maternal Child Nurse: Clara Shearer MD IMG XR PROCEDURES Final Result documented in this encounter Visit Diagnoses Diagnosis Chronic right shoulder pain- Primary Pain in joint, shoulder region Nodule of upper lobe of right lung documented in this encounter Additional Health Concerns Assessment Noted Time PHQ-9 Depression Total Score: 0 06/10/20 9:47 AM EST documented as of this encounter Care Teams Home Assessment Nurse Relationship Specialty Start Date End Date Clara Shearer MD [address] [place] [address] PCP - General Family Medicine 07/24/18 documented as of this encounter
--- OUTSIDE RECORDS SUMMARY | 2025-07-22 18:29 | XMS_ITS | Encounter Summary ---
Author Organization [employer] Address [address] [facility] 7t [place] [address] Care Team Providers Care Finger Lift Operator Name Role Phone Clara Shearer MD Primary Care Provider [phone] Encounter Details Date Type Department Care Team ([facility] st Contact Info) Description 01/22/2024 Orders Only [facility] MEDICINE [address] [place], [place] [phone] Clara Shearer MD [address] [place], [place] [phone] History of mechanical aortic valve replacement Social [...] 08/20/2025 2:15 PM EST Office Visit [facility] ADULT DENTAL [address] [place] [address] Katt Espinoza [address] [place] [address] 09/16/2025 2:30 PM EST Office Visit [facility] ADULT DENTAL [address] [place] [address] Waylon Gutierrez DDS [address] [place] [address] documented as of this encounter Visit Diagnoses Diagnosis History of mechanical aortic valve replacement documented in this encounter Additional Health Concerns Assessment Noted Time PHQ-9 Depression Total Score: 0 10/17/19 24 3:45 PM EDT documented as of this encounter Care Teams Finger Lift Operator Relationship Specialty Start Date End Date Clara Shearer MD [address] [place] [address] PCP - General Family Medicine 07/24/18 documented as of this encounter
--- OUTSIDE RECORDS SUMMARY | 2025-07-22 18:29 | XMS_ITS | Encounter Summary ---
Author Organization [facility] Address [address] [facility] [address] [place] [address] Phone Care Team Providers Care Software Applications Designer Name Role Phone Unknown, Unknown Primary Care Provider Clara Thompson MD Primary Care Provider [phone] Clara Shearer MD Primary Care Provider [phone] Encounter Details Date Type Department Care Team (Late st Contact Info) Description 02/24/2018 Procedure Pass [facility], Ct Scan - [address] [address] Social History Tobacco Use Types Packs/Day Years [...] as of this encounter Care Teams Software Applications Designer Relationship Specialty Start Date End Date Unknown, Unknown, PCP - General 02/24/18 11/09/20 Clara Shearer MD [address] [place] [address] PCP - General Family Medicine 11/10/20 02/15/22 Clara Shearer MD [address] [place] [address] PCP - General Family Medicine 02/16/22 documented as of this encounter Additional Source Comments The information contained in this document represents components of the legal health record. It is not the complete legal health record.[facility]
--- OUTSIDE RECORDS SUMMARY | 2025-07-22 18:29 | XMS_ITS | Encounter Summary ---
Author Organization [facility] Address [address] [place] [address] Phone Care Team Providers Care Corn Detasseler Machine Operator Name Role Phone Clara Shearer MD Primary Care Provider [phone] Encounter Details Date Type Department Care Team (Late st Contact Info) Description 05/04/2025 Procedure Pass [facility], Ct Scan - [address] [address] Social History Tobacco Use Types Packs/Day Years [...] on filedocumented in this encounter Care Teams Corn Detasseler Machine Operator Relationship Specialty Start Date End Date Clara Shearer MD [address] [place] [address] PCP - General Family Medicine 02/16/22 documented as of this encounter Additional Source Comments The information contained in this document represents components of the legal health record. It is not the complete legal health record.[facility]
--- OUTSIDE RECORDS SUMMARY | 2025-07-22 18:29 | XMS_ITS | Encounter Summary ---
Author Organization [employer] Address [address] [facility] 7t [place] [address] Care Team Providers Care Manifest Clerk Name Role Phone Clara Shearer MD Primary Care Provider [phone] Reason for Visit * Reason Onset Date Comments chart prep 07/21/2025 Encounter Details Date Type Department Care Team ([facility] st Contact Info) Description 07/21/2025 Telephone [facility] MEDICINE [address] [place], [place] [phone] Clara Shearer MD [address] [place], [place] [phone] chart prep Social History Tobacco Use Types [...] the past 12 months, has t he [employer], gas, oil or water company threatened to [...] encounter Miscellaneous Notes * Telephone Encounter - Kamilla Mejia [place] - 07/21/2025 10:44 AM EST Chart Prep Labs: done Images: not done US Abdomen 08/20/25 st 11:30 AM. [facility] Screenings: Not Applicable Vaccines due: Covid Due Referrals: EMG/ Nerve conduction test notes sent to scan and copy with chart prep Overdue care gaps: None documented in this encounter Plan of Treatment Upcoming Encounters Date Type Department Care Team (Late st Contact Info) Description 08/20/2025 2:15 PM EST Office Visit [facility] ADULT DENTAL [address] [place] [address] Katt Espinoza [address] [place] [address] 09/16/2025 2:30 PM EST Office Visit [facility] ADULT DENTAL [address] [place] [address] Waylon Gutierrez DDS [address] [place] [address] documented as of this encounter Visit Diagnoses Not on filedocumented in this encounter Additional Health Concerns Assessment Noted Time PHQ-9 Depression Total Score: 0 06/10/20 25 9:47 AM EST documented as of this encounter Care Teams Manifest Clerk Relationship Specialty Start Date End Date Clara Shearer MD [address] [place] [address] PCP - General Family Medicine 07/24/18 documented as of this encounter
--- OUTSIDE RECORDS SUMMARY | 2025-07-22 18:29 | XMS_ITS | Encounter Summary ---
Author Organization [facility] Address [address] [facility] [address] [place] [address] Phone Care Team Providers Care Vp Project Name Role Phone Clara Shearer MD Primary Care Provider [phone] Encounter Details Date Type Department Care Team (Late st Contact Info) Description 08/19/2022 Procedure Pass [place] Admitting Dept - Virtual Department [address] [place] [address] Social History Tobacco Use Types Packs/Day Years [...] documented as of this encounter Care Teams Vp Project Relationship Specialty Start Date End Date Clara Shearer MD [address] [place] [address] PCP - General Family Medicine 02/16/22 documented as of this encounter Additional Source Comments The information contained in this document represents components of the legal health record. It is not the complete legal health record.[facility]
--- OUTSIDE RECORDS SUMMARY | 2025-07-22 18:29 | XMS_ITS | Encounter Summary ---
Author Organization [employer] Address [address] [facility] 7t [place] [address] Care Team Providers Care Water Pumping Station Engineer Name Role Phone Clara Shearer MD Primary Care Provider [phone] Reason for Visit * Reason Onset Date Comments rs otf 05/22/2023 Encounter Details Date Type Department Care Team ([facility] st Contact Info) Description 05/22/2023 Telephone [facility] ADULT DENTAL [address] [place], [place] [phone] Olga, Katt [address] [place] [address] rs prophy Social History Tobacco Use Types [...] Description 08/20/2025 2:15 PM EST Office Visit [facility] ADULT DENTAL [address] [place] [address] Katt Espinoza [address] [place] [address] 09/16/2025 2:30 PM EST Office Visit [facility] ADULT DENTAL [address] [place] [address] Waylon Gutierrez DDS [address] [place] [address] documented as of this encounter Visit Diagnoses Not on filedocumented in this encounter Additional Health Concerns Assessment Noted Time PHQ-9 Depression Total Score: 5 03/07/20 23 3:27 PM EDT documented as of this encounter Care Teams Water Pumping Station Engineer Relationship Specialty Start Date End Date Clara Shearer MD [address] [place] [address] PCP - General Family Medicine 07/24/18 documented as of this encounter
--- OUTSIDE RECORDS SUMMARY | 2025-07-22 18:29 | XMS_ITS | Encounter Summary ---
Author Organization [email or web address] Address [address] [facility] 7t [place] [address] Care Team Providers Care First Grade Teacher Name Role Phone Clara Shearer MD Primary Care Provider [phone] Encounter Details Date Type Department Care Team ([facility] st Contact Info) Description 07/22/2025 Results Follow-Up [facility] MEDICINE [address] [place], [place] [phone] Clara Shearer MD [address] [place], [place] [phone] XR Lumbar Spine 2-3 Views Social History Tobacco Use Types Packs/Day [...] 2:15 PM EST Office Visit [facility] ADULT DENTAL [address] [place] [address] Katt Espinoza [address] [place] [address] 09/16/2025 2:30 PM EST Office Visit [facility] ADULT DENTAL [address] [place] [address] Waylon Gutierrez DDS [address] [place] [address] documented as of this encounter Visit Diagnoses Not on filedocumented in this encounter Additional Health Concerns Assessment Noted Time PHQ-9 Depression Total Score: 0 06/10/20 25 9:47 AM EST documented as of this encounter Care Teams First Grade Teacher Relationship Specialty Start Date End Date Clara Shearer MD [address] [place] [address] PCP - General Family Medicine 07/24/18 documented as of this encounter
--- OUTSIDE RECORDS SUMMARY | 2025-07-22 18:29 | XMS_ITS | Encounter Summary ---
Author Organization [employer] Address [address] [facility] 7t [place] [address] Care Team Providers Care Health Promotion Specialist Name Role Phone Clara Shearer MD Primary Care Provider [phone] Reason for Visit * Reason Comments Med Refill Encounter Details Date Type Department Care Team ([facility] st Contact Info) Description 05/16/2025 Refill [facility] MEDICINE [address] [place], [place] [phone] Clara Shearer MD [address] [place], [place] [phone] Social History Tobacco Use Types Packs/Day Years [...] 08/20/2025 2:15 PM EST Office Visit [facility] ADULT DENTAL [address] [place] [address] Olga, Katt [address] [place] [address] 09/16/2025 2:30 PM EST Office Visit [facility] ADULT DENTAL [address] [place] [address] Waylon Gutierrez DDS [address] [place] [address] documented as of this encounter Visit Diagnoses Not on filedocumented in this encounter Additional Health Concerns Assessment Noted Time PHQ-9 Depression Total Score: 17 025 1:38 PM EDT documented as of this encounter Care Teams Health Promotion Specialist Relationship Specialty Start Date End Date Clara Shearer MD [address] [place] [address] PCP - General Family Medicine 07/24/18 documented as of this encounter
--- OUTSIDE RECORDS SUMMARY | 2025-07-22 18:29 | XMS_ITS | Encounter Summary ---
Author Organization [facility] Address [address] [place] [address] Phone Care Team Providers Care Glassie Name Role Phone Clara Shearer MD Primary Care Provider [phone] Encounter Details Date Type Department Care Team (Late st Contact Info) Description 06/19/2023 Procedure Pass [facility], Ct Scan - [address] [address] Social History Tobacco Use Types Packs/Day Years [...] documented as of this encounter Care Teams Glassie Relationship Specialty Start Date End Date Clara Shearer MD [address] [place] [address] PCP - General Family Medicine 02/16/22 documented as of this encounter Additional Source Comments The information contained in this document represents components of the legal health record. It is not the complete legal health record.[facility]
--- OUTSIDE RECORDS SUMMARY | 2025-07-22 18:29 | XMS_ITS | Encounter Summary ---
Author Organization [employer] Address [address] [place] [address] [address] [place] [address] Care Team Providers Care Laser Specialist Name Role Phone Clara Shearer MD Primary Care Provider [phone] Reason for Referral * Imaging (Routine) - Closed Specialty Diagnoses / Procedures Referred By Ron brewer Referred To Contact Radiology Diagnoses Hematuria, unspecified type Procedures US RENAL BI Clara Shearer MD [address] [place] [address] Phone: tel: fax: [address] [address] Phone: tel: fax: Referral ID Status Reason Start Date Expiration Date Visits Re quested Visits Authorized [id number] Closed 02/21/2025 02/21/2026 1 1 Encounter Details Date Type Department Care Team (Late st Contact Info) Description 02/21/[address] [facility] [address] [place] [address] Clara Shearer MD [address] [place], [place] [phone] Hematuria, unspecified type (Primary Dx) Social History [...] Description 08/20/2025 2:15 PM EST Office Visit [facility] [address] [place] [address] Katt Espinoza [address] [place] [address] 09/16/2025 2:30 PM EST Office Visit [facility] [address] [place] [address] Waylon Gutierrez DDS [address] [place] [address] Scheduled Orders Name Type Priority Associated Diagnoses [...] AM EDT Narrative 04/11/2025 9:02 AM EDT [address] [address] Ultrasound Report Signed Patient: Thalia Martell MR#: [id number] : 1975 Acct:[id number] Age/Sex: 50 / F ADM Date: 04/10/25 Loc: HO.US Attending Dr: Clara Shearer MD Ordering Physician: Clara Shearer MD Date of Service: 04/10/25 Procedure(s): US retroperitoneal comp Accession Number(s): [id number] cc: Clara Shearer MD Reason for Exam: hematuria CLINICAL HISTORY: hematuria US Renal Comparison: None provided Findings: Right kidney normal size and echotexture, 10.9 cm length. Left kidney normal size and echotexture, 12.7 cm length. The repair supervisor demonstrates mild pelvic fullness bilaterally. It is [...] in OV> 04/11/25901 DD/ 0 TD/TT: 04/11/25900 Transit Mix Operator: Procedure Note Donotuseinterpreter, Image - 04/11/2025 [facility] [address] [place] [address] Ultrasound Report Signed Patient: Yoel Martell#: [id number] : 1975Acct:[id number] Age/Sex: 50 / FADM Date: 04/10/25 Loc: HO.US Attending Dr: Clara Shearer MD Ordering Physician: Clara Shearer MD Date of Service: 04/10/25 Procedure(s): US retroperitoneal comp Accession Number(s): [id number] cc: Clara Shearer MD Reason for Exam: hematuria CLINICAL HISTORY: hematuria US Renal Comparison: None provided Findings: Right kidney normal size and echotexture, 10.9 cm length. Left kidney normal size and echotexture, 12.7 cm length. The repair supervisor demonstrates mild pelvic fullness bilaterally. It is [...] in OV> 04/11/25901 DD/ 0 TD/TT: 04/11/25900 Transit Mix Operator: us Clara Shearer MD IMG US PROCEDURES Edited Result - Final documented in this encounter Visit Diagnoses Diagnosis Hematuria, unspecified type- Primary documented in this encounter Additional Health Concerns Assessment Noted Time PHQ-9 Depression Total Score: 17 025 1:38 PM EDT documented as of this encounter Care Teams Laser Specialist Relationship Specialty Start Date End Date Clara Shearer MD [address] [place] [phone] PCP - General Family Medicine 07/24/18 documented as of this encounter
--- OUTSIDE RECORDS SUMMARY | 2025-07-22 18:29 | XMS_ITS | Encounter Summary ---
Author Organization [facility] Address [address] [place] [address] Phone Care Team Providers Care Speed Belt Sander Name Role Phone Clara Shearer MD Primary Care Provider [phone] Encounter Details Date Type Department Care Team (Late st Contact Info) Description 12/04/2022 Procedure Pass [facility], Ct Scan - [address] [address] Social History Tobacco Use Types Packs/Day Years [...] documented as of this encounter Care Teams Speed Belt Sander Relationship Specialty Start Date End Date Clara Shearer MD [address] [place] [address] PCP - General Family Medicine 02/16/22 documented as of this encounter Additional Source Comments The information contained in this document represents components of the legal health record. It is not the complete legal health record.[facility]
--- OUTSIDE RECORDS SUMMARY | 2025-07-22 18:29 | XMS_ITS | Encounter Summary ---
Author Organization [facility] Address [address] [place] [address] Phone Care Team Providers Care Medical Billing Coder Name Role Phone Clara Shearer MD Primary Care Provider [phone] Encounter Details Date Type Department Care Team (Late st Contact Info) Description 06/19/2023 Procedure Pass [facility], Ct Scan - [address] [address] Social History Tobacco Use Types Packs/Day Years [...] as of this encounter Care Teams Medical Billing Coder Relationship Specialty Start Date End Date Clara Shearer MD [address] [place] [address] PCP - General Family Medicine 02/16/22 documented as of this encounter Additional Source Comments The information contained in this document represents components of the legal health record. It is not the complete legal health record.[facility]
--- OUTSIDE RECORDS SUMMARY | 2025-07-22 18:29 | XMS_ITS | Encounter Summary ---
Author Organization [employer] Address [address] [place] [address] Care Team Providers Care Digital Solution Architect Name Role Phone Clara Shearer MD Primary Care Provider [phone] Reason for Visit * Reason Onset Date Comments Nurse Triage 06/05/2023 Encounter Details Date Type Department Care Team ([facility] st Contact Info) Description 06/05/2023 Telephone [facility] [address] [place], [place] [phone] Clara Shearer MD [address] [place], [place] [phone] Nurse Triage Social History Tobacco Use Types [...] 06/05/2023 4:47 PM EST Triage call with [employer] Instructor ID [id number] Pt reports headaches which have started 2 [...] to try this. Pt will come to [facility] tomorrow 06/06/23 to be seen by [...] Nausea as well Please contact pt at [phone] Maori Speaker. documented in this encounter Plan of Treatment Upcoming Encounters Date Type Department Care Team (Late st Contact Info) Description 08/20/2025 2:15 PM EST Office Visit [facility] ADULT DENTAL [address] [place] [address] Jignesh Espinozaaris [address] [place] [address] 09/16/2025 2:30 PM EST Office Visit [facility] [address] [place] [address] Waylon Gutierrez DDS [address] [place] [address] documented as of this encounter Visit Diagnoses Not on filedocumented in this encounter Additional Health Concerns Assessment Noted Time PHQ-9 Depression Total Score: 5 03/07/20 23 3:27 PM EDT documented as of this encounter Care Teams Digital Solution Architect Relationship Specialty Start Date End Date Clara Shearer MD [address] [place] [address] PCP - General Family Medicine 07/24/18 documented as of this encounter
--- OUTSIDE RECORDS SUMMARY | 2025-07-22 18:30 | XMS_ITS | Clinical Summary ---
Author Organization [facility] Address [address] [place] [address] Phone Care Team Providers Care Mushroom Picker Name Role Phone Clara Shearer MD Primary Care Provider [phone] Allergies No known active allergies Medications cholecalciferol [...] with 3mg on Monday. recheck 06/18 at [facility] 2 Active BABY ASPIRIN ORAL Take 81 [...] in November 2022 - following with [facility], last seen in Feb [...] on warfarin - previously prescribed metoprolol by greenskeeper laborer; no longer on the medication due to hypotension / dizziness - continue following with greenskeeper laborer, [facility] Dr Haynes - last TTE in January 2022, mild mitral valve stenosis - continue current treatment plan per cardiology Chronic anticoagulation 11/22/2022 Overview (11/28/2023): Last Assessment & Plan: - indication: Aortic valve replacement - medication warfarin - goal INR 2-3 - followed by [facility] anticoagulation clinic - last INR was 2.0 on 03/01/23 - continue current management plan Abnormal uterine bleeding 11/08/2022 Overview (11/28/2023): Last Assessment & Plan: s/p Endometrial Curetting's, polyp, benign -Pt has follow-up appointment with DIRECTOR OF PRIMARY -Pt is on Coumadin -Pt requested Hysterectomy, pt will follow-up with DIRECTOR OF PRIMARY with possible hysterectomy in future Vitamin D deficiency 12/04/2018 Overview (11/28/2023): Last Assessment & Plan: -continue vitamin D supplement History of mechanical aortic valve replacement 0 04/07/2015 Overview (11/28/2023): Last Assessment & Plan: - [facility], last seen in Aug [...] Overview (11/28/2023): Last Assessment & Plan: - [facility], last seen in Aug [...] Clinic [address], [address] [place] [address] Jaja Huber MD S/P hysterectomy with oophorectomy (Primary Dx) 06/13/2025 11:00 AM EST Home Care Visit [facility] [address] [place] [phone] Darlin Car, EVY SN OASIS DISCHARGE VISIT 06/13/2025 10:15 AM EST Home Care Visit [facility] [address] [place] [phone] Roseanne Marsh, PT PT EVALUATION 06/11/2025 Home Care Visit [facility] [address] [place] [phone] Darlin Car, RN TELEPHONE ENCOUNTER 06/11/2025 Home Care Visit [facility] [address] [place] [phone] Darlin Car, RN TELEPHONE ENCOUNTER 06/10/2025 7:00 AM EST Home Care Visit [facility] [address] [place] [phone] Joseph Cates LPN LPN HOME VISIT 06/04/2025 Episode Documentation Update [facility] [address] [place] [phone] 06/03/2025 10:30 AM EST Home Care Visit [facility] [address] [place] [phone] Chelsea Gutierrez RN SN HOME VISIT 06/03/2025 Home Care Visit [facility] [address] [place] [phone] Chelsea Gutierrez, RN CASE COMMUNICATION 06/02/2025 1:00 PM EST Follow-Up [facility] [address] [facility] [address] [place] [address] Jaja Huber MD S/P hysterectomy (Primary Dx) 05/29/2025 11:00 AM EST Home Care Visit [facility] [address] [place], [place] [phone] Darlin Car, RN SN HOME VISIT 05/28/2025 9:30 AM EST Home Care Visit [facility] [address] [place], [place] [phone] Darlin Car, RN SN PRN HOME VISIT 05/28/2025 Documentation [facility] [address] [place] [address], [address] [place] [phone] Leslie Devlin RN 05/28/2025 Home Care Visit [facility] [address] [place] [address] Meliza Devi RN TELEPHONE ENCOUNTER 05/27/2025 12:00 PM EST Home Care Visit [facility] [address] [place] [address] Chelsea Gutierrez RN SN HOME VISIT 05/27/2025 Home Care Visit [facility] [address] [place] [address] Chelsea Gutierrez, RN CASE COMMUNICATION 05/23/2025 11:00 AM EDT Home Care Visit [facility] [address] [place] [address] Darlin Car, EVY SN HOME VISIT 05/23/2025 Refill [facility] [address] [place], [place] [address], [address] [facility] [place] [address] Bonnie Sosa, RN 05/22/2025 Episode Documentation Update [facility] [address] [place] [address] Megan Manning 05/21/2025 Episode Documentation Update [facility] [address] [place] [address] Guadalupe Conde 05/20/2025 11:50 AM EDT - 05/20/2025 11:59 PM EDT Hospital Encounter [facility] Specimen Processing [address] [place] [address] Jaaj Huber DO Discharge Disposition: Home or Self Care 05/20/2025 11:30 AM EDT Home Care Visit [facility] [address] [place] [phone] Debra Salinas, EVY SN HOME VISIT 05/20/2025 Transcribe Orders [facility] [address] [place] [address] Jaja Huber DO Urinary tract infection without hematuria, site unspecified (Primary Dx) 05/17/2025 Home Care Visit [facility] [address] [place] [phone] Alejandrina Hall, UNHAIRING MACHINE OPERATOR CLINICAL COMMUNICATION 05/16/2025 5:00 AM EDT Home Care Visit [facility] [address] [place] [phone] Joseph Cates LPN LPN HOME VISIT 05/14/2025 Telephone [facility] [address] [address], [address] [place] [address] Bonnie Sosa, EVY FMLA paperwork 05/14/2025 Home Care Visit [facility] [address] [place] [address] Katy Anderson RN CASE COMMUNICATION 05/14/2025 Telephone [facility] [address], [address] [place] [phone] Leslie Devlin, EVY 05/14/2025 Orders Only [facility] [address] [address], [address] [place] [address] Leslie Devlin, EVY Hematuria (Primary Dx) 05/13/2025 Home Care Visit [facility] [address] [place], [place] [phone] Joseph Cates LPN LPN HOME VISIT 05/12/2025 Episode Documentation Update [facility] [address] [place], [place] [phone] 05/10/2025 7:30 AM EDT Home Care Visit [facility] [address] [place], [place] [phone] Darlin Car, EVY SN OASIS START OF CARE (SOC) 05/10/2025 Plan of Care Documentation [facility] [address] [place] [address] 05/08/2025 Orders Only [facility] [address] [place] [address] Homehealth, Suresh Thomas MD 05/06/2025 11:14 AM EDT Anesthesia Event [facility] Periop [address] [place] [address] Jovana Bunn MBBS, MD McGowan, Katelyn Anne, CRNA 05/06/2025 11:08 AM EDT - 05/06/2025 1:26 PM EDT Surgery [facility] Periop [address] [place] [address] Jaja Huber MD LAPAROSCOPIC TOTAL HYSTERECTOMY, BILATERAL SALPINGECTOMY, RIGHT OOPHERECTOMY, OMENTAL BIOPSY 05/06/2025 Procedure Pass [facility] Periop [address] [place] [address] 05/05/2025 Procedure Pass [facility] [address] [place] [address] 05/04/2025 8:54 PM EDT - 05/09/2025 11:16 AM EDT Hospital Encounter [facility] CWN [address] [place] [address] Benita Webster MD Davis, Michelle R, MD Kopp, Joseph W, MD Kosowsky, Raul Saul MD Discharge Disposition: Home-Health Care Svc 05/04/2025 1:16 PM EDT - 05/04/2025 7:05 PM EDT Emergency [facility] Emergency [address] [place] [address] Discharge Disposition: Critical Access Hospital 05/04/2025 Procedure Pass [facility], Ct Scan - [facility] [address] [place] [address] from Last 3 Months Immunizations Immunization Administration [...] this topic Medical Devices Implanted Type Area Pyrotechnist Device Identifier Shelf Expiration Date Model / Serial / Lot Prosthetic Valve Prosthetic Valve Aorta Description:Aortic valve rep lacement in 2009 pt does not know which type of aortic valve was implanted Device Contraceptive 52mg Iud Mirena - Must Order In Multiples Of 5 - [id number] Implanted:Qty: 1 on 08/19/2022 by Ronald Estrada MD at [facility] N/A: Uterus [facility] 06/22/2024 [id number] / / [id number] Procedures Procedure Name Priority Date/Time Associated Diagnosis [...] PLACEMENT Routine 05/06/2025 11:2 5 AM EDT FL LAP,DIAGNOSTIC ABDOMEN 05/06/2025 10:42 AM EDT Pelvic mass PTT Timed 05/06/2025 9:52 AM EDT POCT GLUCOSE Routine 05/06/2025 8:44 AM EDT PT-INR Routine 05/06/2025 5:17 AM EDT CBC Routine 05/06/2025 5:17 AM EDT BASIC METABOLIC PANEL (BMP) Routine 05/06/2025 5:17 AM EDT PTT Timed 05/06/2025 2:45 AM EDT NON-DIRECTOR OF PRIMARY CYTOLOGY, NON CSF, NON URINE Routine 05/06/2025 [...] Special Requests None 05/20/2025 11:54 AM EDT [facility] Urine Culture <10,000 colony forming units per mL 05/21/2025 11:43 AM EDT [facility] Urine (Urine) 05/20/2025 11: 54 AM EDT 05/20/2025 11:59 AM EDT Jaja Huber DO LAB MICROBIOLOGY CULTURE ORDER DOREEN Final Result [facility] [address] [place] [address] * (ABNORMAL) PT-INR (05/09/2025 5:24 AM EDT) Only the most recent of12 resultswithin the time period is included. PT 15.2(H) 10.0 - 13.0 sec [facility] CLINICAL [facility] INR 1.3(H) 0.9 - 1.1 [facility] Blood 05/09/2025 5:24 AM EDT 05/09/2025 6:12 AM EDT Leslie Perez PA-C LAB BLOOD BKR ORDERA BLES Final Result Performing Organization Address City/[facility]/ZIP Co de Phone Number [facility] [address] [place] [address] * (ABNORMAL) CBC (05/09/2025 5:24 AM EDT) Only the most recent of10 resultswithin the time period is included. WBC 4.64 4.00 - 11.00 K/uL [facility] RBC 3.41(L) 4.00 - 5.20 M/uL [facility] HGB 10.4(L) 12.0 - 16.0 g/dL [facility] HCT 32.3(L) 36.0 - 46.0 % [facility] PLT 316 150 - 450 K/uL [facility] MCV 94.7 80.0 - 100.0 fL [facility] MCH 30.5 27.0 - 31.0 pg [facility] MCHC 32.2 32.0 - 36.0 g/dL [facility] RDW 14.3 11.5 - 14.5 % [facility] MPV 9.0 8.4 - 12.0 fL [facility] NRBC 0.00 0.00 /100 WBCs [facility] ABSOLUTE NRBC 0.00 0.00 K/uL [facility] CL INICAL [facility] Blood 05/09/2025 5:24 AM EDT 05/09/2025 6:12 AM EDT Jaja Huber MD LAB BLOOD BKR ORDERABLES Fin al Result Performing Organization Address City/[facility] Co de Phone Number [facility] [address] [place] [phone] * Magnesium (05/09/2025 5:24 AM EDT) Only the most recent of5 resultswithin the time period is included. MAGNESIUM 2.0 1.7 - 2.6 mg/dL [facility] Blood 05/09/2025 5:24 AM EDT 05/09/2025 6:12 AM EDT Leslie Perez PA-C LAB BLOOD BKR ORDERA BLES Final Result Performing Organization Address [facility] de Phone Number [place] [phone] * Basic metabolic panel (05/09/2025 5:24 AM EDT) Only the most recent of7 resultswithin the time period is included. SODIUM 139 136 - 145 mmol/L [facility] POTASSIUM 3.9 3.4 - 5.1 mmol/L [facility] CHLORIDE 105 98 - 107 mmol/L [facility] CO2 24 22 - 31 mmol/L [facility] BUN 9 6 - 23 mg/dL [facility] CREATININE 0.50 0.50 - 1.20 mg/dL [facility] GLUCOSE 87 70 - 100 mg/dL [facility] CALCIUM 9.1 8.8 - 10.7 mg/dL [facility] EGFR 116 >59 mL/min/1.7 3m2 [facility] Comment:Estimated glomerular filtration rate calculated using the CKD-EPI refit equation. ANION GAP 10 7 - 17 mmol/L [facility] Blood 05/09/2025 5:24 AM EDT 05/09/2025 6:12 AM EDT Leslie Perez PA-C LAB BLOOD BKR ORDERA BLES Final Result Performing Organization Address [facility] de Phone Number [facility] [address] [place] [phone] * (ABNORMAL) PTT (05/08/2025 9:14 AM EDT) Only the most recent of11 resultswithin the time period is included. APTT 74.7(H) 24.0 - 37.5 sec [facility] Comment:Emicizumab (Hemlibra ) treatment can result in falsely lowered aPTT test results. Blood 05/08/2025 9:14 AM EDT 05/08/2025 9:19 AM EDT Jaja Huber MD LAB BLOOD BKR ORDERABLES Fin al Result Performing Organization Address [facility] de Phone Number [facility] [address] [place] [phone] * ECG 12-LEAD (05/07/2025 8:36 PM EDT) Only the most recent of2 resultswithin the time period is included. Ventricular Rate EKG/MIN 70 BPM [facility] Atrial Rate 70 BPM [facility] FL Interval 156 ms [facility] QRS Duration 122 ms [facility] QT Interval 428 ms [facility] QTC Interval 462 ms [facility] P [place] 16 degrees [facility] R Wave [place] 50 degrees [facility] T Wave [place] 81 degrees [facility] 05/07/2025 8:36 PM EDT Narrative [facility] - 05/21/2025 2:29 PM EDT Normal sinus rhythm Right bundle branch block Abnormal ECG When compared with ECG of 04-May-2025 21:29, No significant change was found us Jaja Huber MD ECG ORDERABLES Final Result [facility] * (ABNORMAL) DIC screen (05/07/2025 8:26 AM EDT) Pathologist [facility] PT 12.3 10.0 - 13.0 sec [facility] INR 1.1 0.9 - 1.1 [facility] AL [facility] APTT 27.9 24.0 - 37.5 sec [facility] Comment:Emicizumab (Hemlibra ) treatment can result in falsely lowered aPTT test results. FIBRINOGEN 774(H) 200 - 400 mg/dL [facility] Blood 05/07/2025 8:26 AM EDT 05/07/2025 8:30 AM EDT Leslie Perez PA-C LAB BLOOD BKR ORDERA BLES Final Result Performing Organization Address [facility] Co de Phone Number [facility] [address] [place] [phone] * (ABNORMAL) POCT Glucose (05/06/2025 2:02 PM EDT) Only the most recent of3 resultswithin the time period is included. [facility] Glucose, POCT 166(H) 70 - 100 mg/dL [facility] NURSING DEPARTMENT 05/06/2025 2:02 PM EDT 05/06/2025 2:04 PM EDT us Jaja Huber MD POINT OF CARE TEST ORDERABLE S Final Result Performing Organization Address City/[facility] Co de Phone Number [facility] NURSING DEPARTMENT [address] [place] [phone] * Prepare RBC, 2 Units (05/06/2025 2:01 PM EDT) [facility] Product Code [id number] 05/06/2025 2:01 PM EDT [facility] Unit Number [id number] 05/06/20 2:01 PM EDT [facility] ABO of Unit O 05/06/2025 2:01 PM EDT [facility] Rh of Unit POS 05/06/2025 2:01 PM EDT [facility] Crossmatch Interpretation Compatible 05/06/2025 8:29 AM EDT [facility] Product Status No Longer Ready 05/06 2:01 PM EDT [facility] Expiration Date/Time 762051314694 05/06/2025 2:01 PM EDT [facility] Blood Type Barcode 5100 05/06/2025 2:01 PM EDT [facility] Unit Volume 300 mL 05/06/2025 2:01 PM EDT [facility] Product Code [id number] 05/06/2025 2:01 PM EDT [facility] Unit Number [id number] 05/06/20 2:01 PM EDT [facility] ABO of Unit O 05/06/2025 2:01 PM EDT [facility] Rh of Unit POS 05/06/2025 2:01 PM EDT [facility] Crossmatch Interpretation Compatible 05/06/2025 8:29 AM EDT [facility] Product Status No Longer Ready 05/06 2:01 PM EDT [facility] Expiration Date/Time [id number] 05/06/2025 2:01 PM EDT [facility] Blood Type Barcode 5100 05/06/2025 2:01 PM EDT [facility] Unit Volume 300 mL 05/06/2025 2:01 PM EDT [facility] us Erynsteve Marcos CRNA BLOOD BANK PRODUCT ORD ERABLES Final Result [facility]SF[facility] [address] [place] [address] * (ABNORMAL) Fibrinogen (05/06/2025 2:00 PM EDT) FIBRINOGEN 749(H) 200 - 400 mg/dL [facility] Blood 05/06/2025 2:00 PM EDT 05/06/2025 2:05 PM EDT us Jaja Huber MD LAB BLOOD BKR ORDERABLES Fin al Result Performing Organization Address [facility] Co de Phone Number [facility] [address] [place] [phone] * ANES ETT DOUBLE LUMEN - AIRWAY LDA (05/06/2025 11:25 AM EDT) Narrative Eryn Marcos CRNA - 05/06/2025 11:25 AM EDT Eryn Marcos CRNA 05/06/2025 11:50 AM Airway Placement Procedure Note: Patient was not difficult to intubate. Procedure performed by: fellow/resident/LUGGAGE MAKER and anesthesiologist Anesthesiologist: Jovana Bunn MBBS, MD Fellow/Resident/LUGGAGE MAKER: Eryn Marcos CRNA Airway procedure initiated at:05/06/2025 [...] clear lung sounds. us Jovana AGUERO MD [place] ANESTHESIA Fin al Result * Non-Enamel Pulverizer Cytology (05/06/2025 12:00 AM EDT) Results\Interpreta tion NON-DIAGNOSTIC SPECIMEN. [facility] CYTOLOGY LABORATORY Final Diagnosis Abundant blood. [facility] Notes and Recommendations NOTE: Insufficient cellular material for evaluation. Appropriate follow-up is recommended. [facility] CYTOLOGY [facility]ORAT[facility] Total Slides TotSlide1 [facility] CYT OLOGY LABORATORY Procedure Comments ProcThinPrep (non-Enamel Pulverizer) - [facility] CYTOLOGY LAB[facility]ORY Report Accession No: [id number] Date: 1975 Sex: F [facility] Department of Pathology [address] [place] [address] CLIA License No.: [id number] Tank Assembler: Jack Clark MD, PhD Physician: JAJA HUBER MD Procedure Date: 05/06/2025 Armored Machine Operator: KADEN Resendez(ASCP) Pathologist: Debbie Merritt M.D. PERITONEAL [...] on Friday May 09, 2025 at 05:38:55PM [facility] CYTOLOGY LABORATORY Conversion Type (Peritoneum) 05/06/2025 05/06/2025 us Jaja Huber MD CYTOLOGY ORDERABLES Edited R esult - Final [facility]TOLOG[facility]ORATORY [address] [place] [address] * Anatomic Pathology (Non-MGB) (05/06/2025 12:00 AM EDT) 05/06/2025 05/06/2025 [facility] CLINICAL LABORATORIES - 05/27/2025 9:24 PM EST CASE: [id number] PATIENT: OMAR MARTELL Date: 1975 Sex: Female [facility] Department of Pathology [address] [place] [address] License No.: [id number] Tank Assembler: Dr. Tani Briceno M.D., Ph.D. Physician: JAJA [...] device (3.4 x 3.3 x 0.3 cm). Change Management Analyst sections are submitted. A1: Anterior cervix, 1 [...] a dark red, homogenous, hemorrhagic soft tissue. Change Management Analyst section is submitted as FSB1. There is scant parnell-pink fibrous stroma remaining. The fallopian tube is pink-purple and smooth. Sectioning reveals a patent lumen. Gross photographs are taken. Change Management Analyst sections are submitted as follows: B1: Remnant [...] No masses or nodules are grossly noted. Change Management Analyst sections are submitted as follows: C1-C5: Omentum [...] MD LAB PATHOLOGY ORDERABLES Fin al Result [facility] [address] [place] [phone] * TTE COMPREHENSIVE (05/05/2025 2:07 PM EDT) [...] 73 bpm Anatomical Region Laterality Modality Heart [facility] Narrative 05/05/2025 4:09 PM EDT Left ventricular [...] (3). Comparison Findings There are no prior [facility] studies for comparison. us Jaja Huber MD CV ECHO ORDERABLES Final Res ult * Inhibin A & B, tumor marker (05/05/2025 8:54 AM EDT) INHBN A TUMOR ANTELMO. 9.5 pg/mL [facility] [place] Comment: (NOTE) REFERENCE VALUE <98 (Premenopausal) <5.0 (Postmenopausal) ADDITIONAL INFORMATION This test has been modified from the assisted living housekeeper's instructions. Its performance characteristics were determined by [facility] in a manner consistent with CLIA requirements. This test has not been cleared or approved by the U.S. Food and Drug Administration. The testing method is an immunoenzymatic assay manufactured by [employer] and performed on the [employer] DxI 800. Values obtained with different assay methods or kits may be different and cannot be used interchangeably. Test results cannot be interpreted as absolute evidence for the presence or absence of malignant disease. Inhibin A values are not interpretable in females for the investigation of malignant disease. INHIBN B, INFERTILITY <10 pg/mL [facility] [place] Comment: (NOTE) REFERENCE VALUE Premenopausal: <108 pg/mL (Follicular) <80 pg/mL (Luteal) Postmenopausal: <12 pg/mL ADDITIONAL INFORMATION The testing method is a manual immunoenzymatic assay manufactured by [employer]. Values obtained with different assay methods or kits may be different and cannot be used interchangeably. If this test is being ordered as a tumor marker, results cannot be interpreted as absolute evidence for the presence or absence of malignant disease. This test was developed and its performance characteristics determined by [facility] in a manner consistent with CLIA requirements. This test has not been cleared or approved by the U.S. Food and Drug Administration. Blood 05/05/2025 8:54 AM EDT 05/05/2025 9:03 AM EDT Jaja Huber MD LAB BLOOD ORDERABLES Final R esult Performing Organization Address [facility] Co de Phone Number [facility] [address] [place] [address] * LDH (05/05/2025 8:54 AM EDT) [facility]DH 212 135 - 225 U/L [facility] Blood 05/05/2025 8:54 AM EDT 05/05/2025 9:03 AM EDT Jaja Huber MD LAB BLOOD BKR ORDERABLES Fin al Result Performing Organization Address City/[facility]/ZIP Co de Phone Number [facility] [address] [place] [phone] * CA-19-9 (05/05/2025 8:54 AM EDT) CA 19-9 <1 0 - 35 U/mL [facility] [facility] Blood 05/05/2025 8:54 AM EDT 05/05/2025 9:03 AM EDT Jaja Huber MD LAB BLOOD BKR ORDERABLES Fin al Result Performing Organization Address City/[facility]/ZIP Co de Phone Number [facility] [address] [place] [address] * HCG (tumor marker) (05/05/2025 8:54 AM EDT) BETA HCG <1.0 mIU/mL [facility] Comment: Reference Ranges: Female: Premenopausal, Non: 0-5.0 Postmenopausal: 0-8.0 Blood 05/05/2025 8:54 AM EDT 05/05/2025 9:03 AM EDT Jaja Huber MD LAB BLOOD ORDERABLES Final R esult Performing Organization Address [facility] Co de Phone Number [facility] [address] [place] [phone] * AFP (non-maternal specimens) (05/05/2025 8:54 AM EDT) AFP (NON-MATERNAL) <1.8 0 - 8.3 ng/mL [facility] Blood 05/05/2025 8:54 AM EDT 05/05/2025 9:03 AM EDT Jaja Huber MD LAB BLOOD BKR ORDERABLES Fin al Result Performing Organization Address [facility] Co de Phone Number [facility] [address] [place] [phone] * Estradiol (05/05/2025 8:54 AM EDT) ESTRADIOL 7 pg/mL [facility] Comment: Follicular 27-156 Mid-Cycle 50-308 Luteal 35-223 Post-Menopausal 0-47 , 1st Trimester 165-2861 , 2nd Trimester 1567-01700 , 3rd Trimester 54727-48860 This result is quantitatively invalid in patients being treated with fulvestrant(fasolodex). Blood 05/05/2025 8:54 AM EDT 05/05/2025 9:03 AM EDT us Jaja Huber MD LAB BLOOD BKR ORDERABLES Fin al Result Performing Organization Address City/[facility] Co de Phone Number [facility] [address] [place] [address] * Carcinoembryonic antigen (CEA) (05/05/2025 8:54 AM EDT) CEA 1.5 0 - 3.7 ng/mL [facility] Comment: CEA REFERENCE RANGE: NON-SMOKERS: < 3.8 ng/mL SMOKERS: < 5.0 ng/mL Blood 05/05/2025 8:54 AM EDT 05/05/2025 9:03 AM EDT us Jaja Huber MD LAB BLOOD BKR ORDERABLES Fin al Result Performing Organization Address [facility]/ZIP Co de Phone Number [facility] [address] [place] [address] * US PELVIS TRANSABDOMINAL PLUS TRANSVAGINAL (05/04/2025 10:35 PM EDT) MGB IMG CHILD NUTRITION DIRECTOR COMMENT Please see finalized report. [facility] Anatomical Region Laterality Modality Pelvis, Uterus/Adnexa Ultrasound [...] initiated on 05/04/2025 11:20 PM, Message ID [id number]. A clinically significant result was initiated on 05/04/2025 11:22 PM, Message ID [id number]. Narrative 05/04/2025 11:23 PM EDT US PELVIS [...] and left adnexa. Procedure Note Jl Gutierrez, [facility] - 05/04/2025 US PELVIS TRANSABDOMINAL AND TRANSVAGINAL [...] was initiated on 05/04/2025 11:20 PM,Message ID [id number]. A clinically significant result was initiated on 05/04/2025 11:22 PM,Message ID [id number]. Brionna Stone PA-C IMG US PELVIS Final Result * (ABNORMAL) LFTs (hepatic panel) (05/04/2025 9:34 PM EDT) Only the most recent of2 resultswithin the time period is included. TOTAL PROTEIN 6.2(L) 6.4 - 8.3 g/dL [facility] ALBUMIN 3.3(L) 3.5 - 5.2 g/dL [facility] GLOBULIN 2.9 2.2 - 4.2 g/dL [facility] AST 18 10 - 50 U/L [facility] ALT 25 10 - 50 U/L [facility] ALKALINE PHOSPHATASE 54 35 - 130 U/L [facility] TOTAL BILIRUBIN 0.7 0.0 - 1.0 mg/dL [facility] DIRECT BILIRUBIN 0.2 0.0 - 0.3 mg/dL [facility] Blood 05/04/2025 9:34 PM EDT 05/04/2025 9:47 PM EDT Brionna Stone PA-C LAB BLOOD BKR ORDERABLES Danielle dooley Result [facility] [address] [place] [address] * (ABNORMAL) CBC and differential (05/04/2025 9:34 PM EDT) Only the most recent of3 resultswithin the time period is included. WBC 9.31 4.00 - 11.00 K/uL [facility] RBC 2.97(L) 4.00 - 5.20 M/uL [facility] HGB 9.3(L) 12.0 - 16.0 g/dL [facility] HCT 27.7(L) 36.0 - 46.0 % [facility] PLT 150 150 - 450 K/uL [facility] MCV 93.3 80.0 - 100.[address] [facility] MCH 31.3(H) 27.0 - 31.[address] [facility] MCHC 33.6 32.0 - 36.0 g/dL [facility] RDW 14.5 11.5 - 14.5 % [facility] MPV 9.3 8.4 - 12.[address] [facility] NRBC 0.00 0.00 /[address] [facility] ABSOLUTE NRBC 0.00 0.00 K/uL [facility] DIFF METHOD Auto [facility] NEUTS 80.1(H) 48.0 - 76.0 % [facility] LYMPHS 11.5(L) 18.0 - 41.0 % [facility] MONOS 7.5 4.0 - 11.0 % [facility] EOS 0.4 0.0 - 5.0 % [facility] BASOS 0.1 0.0 - 1.5 % [facility] % IMMATURE GRANS 0.4 0.0 - 0.9 % [facility] ABSOLUTE NEUTS 7.45 1.92 - 7.60 K/uL [facility] Comment:1.21-5.39 cells/KL i s the reference range for individuals with the Falk null phenotype ABSOLUTE LYMPHS 1.07 0.72 - 4.10 K/uL [facility] ABSOLUTE MONOS 0.70 0.16 - 1.10 K/uL [facility] ABSOLUTE EOS 0.04 0.00 - 0.50 K/uL [facility] ABSOLUTE BASOS 0.01 0.00 - 0.15 K/uL [facility] ABS IMMATURE GRANS 0.04 0.00 - 0.09 K/uL [facility] ABSOLUTE NEUTROPHIL COUNT 7.45 1.92 - 7.60 K/uL [facility] Comment: Automated cell count. Manual ANC may differ if performed. 1.21-5.39 cells/KL is the reference range for individuals with the Falk null phenotype Blood 05/04/2025 9:34 PM EDT 05/04/2025 9:47 PM EDT Result [facility] Brionna Stone PA-C LAB BLOOD BKR ORDERABLES Danielle l Result Performing Organization Address [facility] Co de Phone Number [facility] [address] [place] [phone] * Type and Screen (ABO,Rh,Antibody Screen) (05/04/2025 9:34 PM EDT) Expiration Date of Sample 05/07/2025 11:59 PM 05/04/2025 11:05 PM EDT [facility] Resulting Agency [facility] ABO Type O 05/04/2025 11:05 PM EDT [facility] Rh Type Positive 05/04/2025 11:05 PM EDT [facility] Antibody Screen Negative 05/04/2025 11:05 PM EDT [facility] Blood 05/04/2025 9:34 PM EDT 05/04/2025 9:50 PM EDT Result [facility] Brionna Stone PA-C LAB BLOOD BANK TEST ORDERABLE S Final Result Performing Organization Address [facility] Co de Phone Number [facility] [address] [place] [address] * Lipase (05/04/2025 9:34 PM EDT) Only the most recent of2 resultswithin the time period is included. LIPASE 22 13 - 60 U/L [facility] Comment: Blood 05/04/2025 9:34 PM EDT 05/04/2025 9:47 PM EDT Result [facility] Brionna Stone PA-C LAB BLOOD BKR ORDERABLES Danielle l Result [facility] [address] [place] [address] * HUMAN EPIDIDYMIS PROTEIN 4, BLOOD (05/04/2025 5:06 PM EDT) Human epididymis protein 4 54 <=140 pmol/L [facility] Comment: (NOTE) ADDITIONAL [...] Warren PA-C LAB BLOOD ORDERABLES Final Result [facility] [address] [place] [address] * Hold Specimen In Blood Bank (05/04/2025 5:06 PM EDT) Expiration Date of Sample 05/07/2025 ,1433 [facility] Resulting Agency [facility] Blood 05/04/2025 5:06 PM EDT 05/04/2025 5:13 PM EDT us Ashleigh Warren PA-C LAB BLOOD BANK TEST ORDERAB LES Final Result [facility] [address] [place] [address] * CA-125 (05/04/2025 5:06 PM EDT) CA 125 28.5 0 - 35 U/mL [facility] Comment: Test Methodology Yeny [id number] Patient results determined by assays using different manufacturers or methods may not be comparable. Blood 05/04/2025 5:06 PM EDT 05/04/2025 5:13 PM EDT us Ashleigh Warren PA-C LAB BLOOD BKR ORDERABLES Fi nal Result [address] [address] * CT ABDOMEN/PELVIS WITH CONTRAST (05/04/2025 3:16 PM EDT) MGB IMG CHILD NUTRITION DIRECTOR COMMENT ovarian mass vs hemorrhagic cyst vs torsion. free fluid + blood products, indeterminate for carcinomatosis [facility] Anatomical Region Laterality Modality Abdomen, Pelvis Computed [...] initiated on 05/04/2025 4:42 PM, Message ID [id number]. ATTESTATION: I, Jack Bowers as teaching physician, [...] was initiated on 05/04/2025 4:42 PM,Message ID [id number]. ATTESTATION: I, Jack Bowers as teaching physician, have reviewed theimages for this case and if necessary edited the report originally createdby Sophie Merino MD. us Ashleigh Warren PA-C IMG CT ABD/PELVIS Final Res ult * HCG, serum qualitative (05/04/2025 1:40 PM EDT) HCG, QUALITATIVE Negative Negative IU/L [facility] Blood 05/04/2025 1:40 PM EDT 05/04/2025 1:51 PM EDT us Alberto Vasques MD LAB BLOOD BKR ORDERABLES Final R esult [address] [address] * (ABNORMAL) Urinalysis w/reflex Urine Culture (05/04/2025 1:19 PM EDT) COLOR Yellow Yellow [facility] CLARITY Clear [facility] GLUCOSE Negative Negative [facility] BILI Negative Negative [facility] KETONES Negative Negative [facility] SPECIFIC GRAVITY 1.010 1.005 - 1.030 [facility] BLOOD 1+(A) Negative [facility] PH 7.5 5.0 - 8.0 [facility] Protein-UA Negative Negative [facility] NITRITE Negative Negative [facility] Leukocyte esterase, ur Negative Negative [facility] Urine (Urine) 05/04/2025 1:1 9 PM EDT 05/04/2025 1:44 PM EDT us Alberto Vasques MD LAB URINE ORDERABLES Final Resul t Performing Organization Address [facility] Co de Phone Number [address] [address] * (ABNORMAL) Urine sediment (05/04/2025 1:19 PM EDT) WBC 0-4(A) NONE SEEN /hpf [facility] RBC 3-5(A) NONE SEEN /hpf [facility] URINE EPITHELIAL 0-4(A) NONE SEEN [facility] MUCUS NONE SEEN NONE SEEN /hpf [facility] BACTERIA Trace(A) NONE SEEN /hpf [facility] 05/04/2025 1:19 PM EDT 05/04/2025 1:44 PM EDT us Alberto Vasques MD LAB URINE ORDERABLES Final Resul t Performing Organization Address [facility] Co de Phone Number [address] [address] from Last 3 Months Insurance [employer] NON NSPG P[employer] [place] [address] [employer] NON NSPG PCP [facility] [facility] NON NSPG PCP [employer] [facility] NON NSPG PCP [facility] NON NSPG PCP [employer] [facility] NON NSPG PCP [employer] [facility] NON NSPG PCP S[employer] NON NSPG PCP [employer] [facility] NON NSPG PCP [employer] [facility] Advance Directives For more information, please contact: [phone] (9AM - 5PM Ana Lilia/[facility], Monday-Monday) * Full Code (Latest Code Status on File) Date Activated Date Inactivated Comments 08/19/2022 9:51 AM Question Answer Comments Code Status Confirmed With: Patient Care Teams Mushroom Picker Relationship Specialty Start Date End Date Clara Shearer MD [address] [place] [phone] PCP - General Family Medicine 02/16/22 Additional Source Comments The information contained in this document represents components of the legal health record. It is not the complete legal health record.[facility]
--- OUTSIDE RECORDS SUMMARY | 2025-07-22 18:30 | XMS_ITS | Encounter Summary ---
Author Organization [employer] Address [address] [place] [address] [address] [place] [address] Care Team Providers Care Lead Pony Rider Name Role Phone Clara Shearer MD Primary Care Provider [phone] Encounter Details Date Type Department Care Team (Late st Contact Info) Description 07/20/2022 Abstract [facility] MEDICINE [address] [place] [address] Clara Shearer MD [address] [place] [address] Social History Tobacco Use Types Packs/Day Years [...] Description 08/20/2025 2:15 PM EST Office Visit [facility] ADULT DENTAL [address] [place] [address] Katt Espinoza [address] [place] [address] 09/16/2025 2:30 PM EST Office Visit [facility]ULT [facility] [address] [place] [address] Waylon Gutierrez DDS [address] [place] [address] documented as of this encounter Visit Diagnoses Not on filedocumented in this encounter Care Teams Lead Pony Rider Relationship Specialty Start Date End Date Clara Shearer MD [address] [place] [address] PCP - General Family Medicine 07/24/18 documented as of this encounter
--- OUTSIDE RECORDS SUMMARY | 2025-07-22 18:30 | XMS_ITS | Encounter Summary ---
Author Organization [employer] [facility] Address [address] [place] [address] [address] [place] [address] Care Team Providers Care Billing Assistant Name Role Phone Clara Shearer MD Primary Care Provider [phone] Encounter Details Date Type Department Care Team (Latest Contact Info) Description 09/26/2019 Abstract [facility] Dental, Provider, DDS Social History Tobacco [...] Description 08/20/2025 2:15 PM EST Office Visit [facility] [address] [place] [address] Katt Espinoza [address] [place] [address] 09/16/2025 2:30 PM EST Office Visit [facility] [address] [place] [address] Waylon Gutierrez DDS [address] [place] [address] documented as of this encounter Visit Diagnoses Not on filedocumented in this encounter Care Teams Billing Assistant Relationship Specialty Start Date End Date Clara Shearer MD [address] [place] [address] PCP - General Family Medicine 07/24/18 documented as of this encounter
--- OUTSIDE RECORDS SUMMARY | 2025-07-22 18:30 | XMS_ITS | Clinical Summary ---
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 Sodium Fluoride (PreviDent 5000 Plus) 1.1 % cream Apply 1 mg to teeth 3 times daily. 1 g 3 4 Active Additional Information Patient not taking.Reported on 07/22/2025 cetirizine (ZyrTEC) 10 MG tablet TAKE 1 TABLET BY MOUTH EVERY DAY 30 tablet 11 5 Active Additional Information Patient not taking.Reported on 07/22/2025 warfarin (Coumadin) 2 MG tabletIndication s:History of mechanical aortic valve replacement TAKE 2 TO 4 TABLETS BY MOUTH DAILY DIRECTED BY COUMADIN CLINIC 120 tablet 11 07/22/2025 4:18 PM EST 5 Active Ascorbic Acid (vitamin C) 500 MG tablet TAKE 1 TABLET BY MOUTH TWICE DAILY 180 tablet 5 Active Additional Information Patient not taking.Reported on 07/22/2025 olopatadine (Pataday) 0.2 % ophthalmic solution INSTILL [...] do not drive with medication 20 tablet Active tolterodine LA (Detrol LA) 4 MG 24 hr capsule Take 1 capsule (4 mg) by mouth Once per day. 90 capsule 3 5 Active Additional Information Patient not taking.Reported on 07/22/2025 omeprazole (PriLOSEC) [address] capsule Take 1 capsule (20 mg) by mouth before breakfast. Do not crush or chew. 30 capsule 11 5 05/10/20 26 Active Additional Information Patient not taking.Reported on 07/22/2025 cholecalciferol (D3 Super Strength) 50 MCG (2000 UT) capsule TAKE 1 CAPSULE BY MOUTH EVERY DAY 90 capsule 5 Active Additional Information Patient not taking.Reported on 07/22/2025 acetaminophen (Tylenol) 325 MG tablet Take 650 mg by mouth every 6 (six) hours. Active sennosides (Senokot) 8.6 MG tablet Take 2 tablets by mouth at bedtime. Active simethicone (Mylicon,Gas-X) 125 MG capsule Take 125 mg by mouth if needed in the morning, at noon, in the evening, and at bedtime. 5 Active Diclofenac Sodium 1 % gel Apply to affected area once or twice daily as needed for pain 150 g 3 06/10/2025 11:08 AM EST 5 Active Additional Information Patient not taking.Reported on 07/22/2025 celecoxib (CeleBREX) 200 MG capsule Take 1 capsule (200 mg) by mouth if needed at bedtime for mild pain. 15 capsule 1 07/22/2025 4:18 PM EST 5 Active amoxicillin (Amoxil) 500 MG capsule Take 1 capsule (500 mg) by mouth every 8 (eight) hours for 7 days. 21 capsule 07/22/2025 4:28 PM EST 5 07/29/19 26 Active amoxicillin (Amoxil) 500 MG capsule Take 4 capsules of amoxicillin 500 mg 1 hour prior dental procedure 12 capsule 07/22/2025 4:28 PM EST Active acetaminophen (Tylenol 8 Hour) 650 MG ER tablet Take 1 tablet (650 mg) by mouth every 8 (eight) hours if needed for moderate pain for up to 10 days. Do not crush, chew, or split. 15 tablet 07/22/2025 4:28 PM EST 08/01/19 26 Active Active Problems Problem Noted Date Diagnosed [...] - most recent E[place]ocardi[place] on [place]05/2025 [place] [facility] Left ventricular systolic function is at the lower limits of normal. LV ejection fraction with 50 to 55%. Normal right ventricular systolic function. Mechanical prosthesis in the aortic valve. Mild mitral stenosis. - echocardi[place] in Aug 2023 in [facility] Left ventricular systolic function was normal. EF 57%. Mechanical prosthetic aortic valve, which is functioning normally. Moderate mitral valve stenosis - following with warehouse administrator, Dr. Haynes [facility] - Monitor with periodic echo. 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 EF 57%. Mechanical prosthetic aortic valve, which is functioning normally. Moderate mitral valve stenosis - following with warehouse administrator, Dr. Haynes [facility] - Monitor with periodic echo. Localized gingival recession 10/31/2024 Chronic headache 05/30/2024 Assessment & Plan (04/13/2025 7:48 PM EDT): - Following with neurologist, [facility], last seen in January 2025 - pt [...] has sleep study which was ordered by warehouse administrator. Patient was referred to sleep medicine specialist [...] PT with minimal improvement - evaluated by [facility] orthopedist in March 2024. MRI in 2023 [...] PT with minimal improvement - evaluated by [facility] orthopedist in March 2024. MRI in 2023 showed change - pt was seen by spine center provider in September 2024. 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 MRI was ordered and patient was referred to [facility] for injection treatment. - patient has received 3 injection treatments with no improvement - patient was advised to contact [facility] orthopedist to inquire MRI Assessment & Plan [...] pancreatitis in November 2022 - following with [facility], last seen in May 2024 - [...] pancreatitis in November 2022 - following with [facility], last seen in May 2024 - [...] pancreatitis in November 2022 - following with [facility], last seen in Feb 2023 - [...] on warfarin - previously prescribed metoprolol by warehouse administrator; no longer on the medication due to hypotension / dizziness - continue following with warehouse administrator, [facility] Dr Haynes - last TTE on 09/19/2023: Left ventricular systolic function was normal. EF 57%. Mechanical prosthetic aortic valve, which is functioning normally. Moderate mitral valve stenosis - continue current treatment plan per cardiology Assessment & Plan (04/13/2025 7:36 PM EDT): - s/p AVR in Feb 2010 - on warfarin - previously prescribed metoprolol by warehouse administrator; no longer on the medication due to hypotension / dizziness - continue following with warehouse administrator, [facility] [place] Haynes - last TTE on 09/19/2023: Left ventricular systolic function was normal. EF 57%. Mechanical prosthetic aortic valve, which is functioning normally. Moderate mitral valve stenosis - continue current treatment plan per cardiology Assessment & Plan (12/30/2024 9:32 AM EDT): - s/p AVR in Feb 2010 - on warfarin - previously prescribed metoprolol by warehouse administrator; no longer on the medication due to hypotension / dizziness - continue following with warehouse administrator, [facility] [place] Haynes - last TTE in January 2022, mild mitral valve stenosis - continue current treatment plan per cardiology Assessment & Plan (05/30/2024 12:22 PM EST): - s/p AVR in Feb 2010 - on warfarin - previously prescribed metoprolol by warehouse administrator; no longer on the medication due to hypotension / dizziness - continue following with warehouse administrator, [facility] [place] Haynes - last TTE in January 2022, mild mitral valve stenosis - continue current treatment plan per cardiology Assessment & Plan (03/19/2023 1:47 PM EDT): - s/p AVR in Feb 2010 - on warfarin - previously prescribed metoprolol by warehouse administrator; no longer on the medication due to hypotension / dizziness - continue following with warehouse administrator, [facility] [place] Haynes - herbert TTE in January 2022, mild mitral valve stenosis - continue current treatment plan per cardiology Assessment & Plan (11/22/2022 11:35 AM EDT): - s/p AVR in Feb 2010 - on warfarin - previously prescribed metoprolol by warehouse administrator; no longer on the medication due to hypotension / dizziness - continue following with warehouse administrator, [facility] [place] Haynes - herbert TTE in January 2022, mild mitral valve stenosis - continue current treatment plan per cardiology Chronic anticoagulation 11/22/2022 Assessment & Plan (06/15/2025 11:36 AM EST): - indication: Aortic valve replacement - medication warfarin - goal INR 2-3 - followed by [facility] anticoagulation clinic - continue current management plan Assessment & Plan (12/30/2024 9:33 AM EDT): - indication: Aortic valve replacement - medication warfarin - goal INR 2-3 - followed by [facility] anticoagulation clinic - last INR was 2.0 on 03/01/23 - continue current management plan Assessment & Plan (05/30/2024 1:41 PM EST): - indication: Aortic valve replacement - medication warfarin - goal INR 2-3 - followed by [facility] anticoagulation clinic - last INR was 2.0 on 03/01/23 - continue current management plan Assessment & Plan (03/19/2023 1:49 PM EDT): - indication: Aortic valve replacement - medication warfarin - goal INR 2-3 - followed by [facility] antico[place] clinic - last INR was 2.0 on 03/01/23 - continue current management plan Assessment & Plan (11/22/2022 11:40 AM EDT): - indication: Aortic valve replacement - medication warfarin - goal INR 2-3 - followed by [facility] antico[place] clinic - last INR was 2.4 [...] polyp, benign -Pt has follow-up appointment with LEAN MANAGER -Pt is on Coumadin -Pt requested Hysterectomy, pt will follow-up with LEAN MANAGER with possible hysterectomy in future Assessment & Plan (11/08/2022 4:50 PM EDT): s/p Endometrial Curetting's, polyp, benign -Pt has follow-up appointment with LEAN MANAGER -Pt is on Coumadin -Pt requested Hysterectomy, pt will follow-up with LEAN MANAGER with possible hysterectomy in future Cyst of ovary 09/22/2022 Iron deficiency anemia due to chronic blood loss 09/22/2022 Assessment & Plan (06/15/2025 11:39 AM EST): - AUB in a setting of anticoagulation - s/p removal of endometrial polyp, benign - Status post total laparoscopic hysterectomy, bilateral salpingectomy, and right oophorectomy in April 2025 - Pt has follow-up appointment with LEAN MANAGER - Pt is taking warfarin Assessment & Plan (05/30/2024 1:41 PM EST): - AUB in a setting of anticoagulation - s/p removal of endometrial polyp, benign - Pt has follow-up appointment with LEAN MANAGER - Pt is taking Coumadin Assessment & Plan (11/03/2023 12:09 PM EDT): - AUB in a setting of anticoagulation - s/p removal of endometrial polyp, benign -Pt has follow-up appointment with LEAN MANAGER -Pt is taking Coumadin Assessment & Plan (11/08/2022 4:45 PM EDT): Due to AUB: S/p Endometrial Curetting's, polyp, benign -Pt has follow-up appointment with LEAN MANAGER -Pt is taking Coumadin Vitamin D [...] & Plan (06/15/2025 11:35 AM EST): - Hand Tool Lapper: Dr. Dallas Duran, last seen in December 2023 - s/p AVR for rheumatic disease and aortic regurgitation in Feb 2010 - EKG showed sinus rhythm and RBBB - echocardiogram 08/30/2023 EF 57%. Mechanical aortic valve functioning normally. Moderate mitral valve stenosis. No regurgitation. - Continue warfarin - Continue SBE prophylaxis. Assessment & Plan (04/13/2025 7:36 PM EDT): - Hand Tool Lapper: Dr. Dallas Duran, last seen in December 2023 - s/p AVR for rheumatic disease and aortic regurgitation in Feb 2010 - EKG showed sinus rhythm and RBBB - echocardiogram 08/30/2023 EF 57%. Mechanical aortic valve functioning normally. Moderate mitral valve stenosis. No regurgitation. - Continue warfarin - Continue SBE prophylaxis. 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 Dallas Duran, last seen in December 2023 - s/p AVR for rheumatic disease and aortic regurgitation in Feb 2010 - EKG showed sinus rhythm and RBBB - echocardiogram 08/30/23 EF 57%. Mechanical aortic valve functioning normally. Moderate mitral valve stenosis. No regurgitation. - Continue warfarin - Continue SBE prophylaxis. Assessment & Plan (05/30/2024 12:22 PM EST): - Hand Tool Lapper: Dr. Dallas Duran, last seen in December 2023 - s/p AVR for rheumatic disease and aortic regurgitation in Feb 2010 - EKG showed sinus rhythm and RBBB - echocardiogram 08/30/23 EF 57%. Mechanical aortic valve functioning normally. Moderate mitral valve stenosis. No regurgitation. - Continue warfarin - Continue SBE prophylaxis. Assessment & Plan (11/03/2023 12:18 PM EDT): - Hand Tool Lapper: Dr. Dallas HUMPHREY, last seen in Aug 2023 - s/p AVR for rheumatic disease and aortic regurgitation in Feb 2010 - EKG showed sinus rhythm and RBBB - echocardiogram 08/30/23 EF 57%. Mechanical aortic valve functioning normally. Moderate mitral valve stenosis. No regurgitation. - Continue warfarin - Continue SBE prophylaxis. Assessment & Plan (03/19/2023 1:47 PM EDT): - [facility], last seen in Jul 2022 - s/p AVR for rheumatic disease and aortic regurgitation in Feb 2010 - EKG showed sinus rhythm and RBBB - echocardiogram JANUARY 2022 nml LVEF 60-65%; mild mitral valve stenosis - Continue aspirin and warfarin, per cardiology. - Continue SBE prophylaxis. Assessment & Plan (11/22/2022 11:37 AM EDT): - [facility] Tool [facility], last seen in Jul 2022 - s/p AVR for rheumatic disease and aortic regurgitation in Feb 2010 - EKG showed sinus rhythm and RBBB - echocardiogram JANUARY 2022 nml LVEF 60-65%; mild mitral valve stenosis - Continue aspirin and warfarin, per cardiology. - Continue SBE prophylaxis. Allergic rhinitis 12/09/2013 Aortic valve regurgitation 07/25/2013 Assessment & Plan (06/15/2025 11:35 AM EST): - [facility] Tool [facility], last seen in December 2024 - s/p AVR for rheumatic disease and aortic regurgitation due to rheumatic heart disease in Feb 2010 - EKG showed sinus rhythm and RBBB - echocardiogram in Aug 2023, EF 59%. Normally functioning AV. Moderate mitral valve stenosis. - - most recent E[place]ocardiogram on 05/05/2025 [place] [facility] Left ventricular systolic function is at the [...] & Plan (04/13/2025 7:36 PM EDT): - Hand Tool Lapper: Dr. Dallas Duran, last seen in December 2024 - s/p AVR for rheumatic disease and aortic regurgitation due to rheumatic heart disease in Feb 2010 - EKG showed sinus rhythm and RBBB - echocardiogram in Aug 2023, EF 59%. Normally functioning AV. Moderate mitral valve stenosis. - Continue warfarin, per cardiology. - Continue SBE prophylaxis. 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 Dallas Duran, last seen in December 2023 - s/p AVR for rheumatic disease and aortic regurgitation due to rheumatic heart disease in Feb 2010 - EKG showed sinus rhythm and RBBB - echocardiogram in Aug 2023, EF 59%. Normally functioning AV. Moderate mitral valve stenosis. - Continue warfarin, per cardiology. - Continue SBE prophylaxis. Assessment & Plan (05/30/2024 12:22 PM EST): - Hand Tool Lapper: Dr. Dallas Duran, last seen in December 2023 - s/p AVR for rheumatic disease and aortic regurgitation due to rheumatic heart disease in Feb 2010 - EKG showed sinus rhythm and RBBB - echocardiogram in Aug 2023, EF 59%. Normally functioning AV. Moderate mitral valve stenosis. - Continue warfarin, per cardiology. - Continue SBE prophylaxis. Assessment & Plan (11/03/2023 12:20 PM EDT): - Hand Tool Lapper: Dr. Dallas Duran, last seen in Aug 2023 - s/p AVR for rheumatic disease and aortic regurgitation due to rheumatic heart disease in Feb 2010 - EKG showed sinus rhythm and RBBB - echocardiogram in Aug 2023, EF 59%. Normally functioning AV. Moderate mitral valve stenosis. - Continue warfarin, per cardiology. - Continue SBE prophylaxis. Assessment & Plan (11/22/2022 11:36 AM EDT): - Hand Tool Lapper: Dr. Dallas HUMPHREY, last seen in Jul [...] EDT): - 12/03/22 Evaluated and treated at [facility] ED. WBC 13k, Lipase 247, CT showed pancreatitis. Given IVF and analgesics. - Seen by [facility] in December 2022 - MRI on 03/01/23 was normal. - HgbA1C 5.9% - Follow recommendations per GI. Menometrorrhagia 09/22/2022 03/07/2023 Pain in female pelvis 09/22/20222022 Encounters Date Type Department Care Team Description 07/22/2025 3:30 PM EST Office Visit [facility] ADULT DENTAL [address] [place] [address] Lyn-Méndez, Daina, DDS Open fracture of tooth, initial encounter (Primary Dx) 07/22/2025 2:15 PM EST Office Visit [facility] MEDICINE [address] [place] [address] Clara Shearer MD Rheumatic aortic valve insufficiency (Primary Dx); History of mechanical aortic valve replacement; Mitral valve stenosis, unspecified etiology; Chronic anticoagulation; Prediabetes; Gastroesophageal reflux disease, unspecified whether esophagitis present; Transaminitis; Iron deficiency anemia due to chronic blood loss; Chronic nonintractable headache, unspecified headache type; Numbness and tingling of right hand; AYESHA (obstructive sleep apnea); Acute low back pain without sciatica, unspecified back pain laterality 07/22/2025 Results Follow-[facility] [place] [address] Clara Shearer MD XR Lumbar Spine 2-3 Views 07/22/2025 Results Follow-Up [facility] [facility] [place] [address] Clara Shearer MD Hepatic Function Panel 07/22/2025 Travel 07/21/2025 Telephone [facility] [place] [address] Clara Shearer MD chart prep 07/15/2025 Orders Only GENERIC EXTERNAL DATA DEPARTMENT Provider, Generic External Data 06/26/2025 Orders Only GENERIC EXTERNAL DATA DEPARTMENT Provider, Generic External Data 06/18/2025 Orders Only [facility] [place] [address] Clara Shearer MD Transaminitis (Primary Dx) 06/18/2025 Results Follow-Up [facility] [place] [address] Clara Shearer MD Hepatic Function Panel, Hepatitis C Antibody with Reflex to HCV, RNA, Quantitative, Real-Time PCR, Hepatitis B surface antigen, EIA 06/18/2025 Orders Only GENERIC EXTERNAL DATA DEPARTMENT Provider, Generic External Data 06/13/2025 Telephone [facility] [place] [address] Clara Shearer MD Referral 06/12/2025 Results Follow-Up [facility] [place] [address] Clara Shearer MD XR Chest 2 Views 06/11/2025 Telephone [facility] [place] [address] Clara Shearer MD Results 06/11/2025 Orders Only [facility] [place] [address] Clara Shearer MD Chronic right shoulder pain (Primary Dx) 06/11/2025 Orders Only [address] [place] [address] Clara Shearer MD Transaminitis (Primary Dx); RUQ pain 06/11/2025 Results [address]-Up [address] [place] [phone] Clara Shearer MD Hemoglobin A1c, Comprehensive Metabolic Panel, Lipid Panel with Reflex to Direct LDL 06/11/[address] [place] [phone] Clara Shearer MD Call Back Request 06/11/2025 Orders Only [address] [place] [phone] Clara Shearer MD Chronic right shoulder pain (Primary Dx); Nodule of upper lobe of right lung 06/11/2025 Results Follow-Up [address] [place] [phone] Clara Shearer MD XR Shoulder 2+ Views Right 06/10/2025 9:30 AM EST Office [facility] [place] [phone] Clara Shearer MD History of hysterectomy with [...] (obstructive sleep apnea) 06/10/2025 Travel 06/09/[address] [address] Calra Shearer MD chart prep 05/28/[address] [address] Kelly Chau, [facility] Follow-up 05/19/[address] [place] [address] Clara Shearer MD 05/16/[address] [facility] [address] [place] [address] Clara Shearer MD 05/12/[address] [facility] [address] [place] [address] Clara Shearer MD Transition Of Care (Tcm) (HDF- unscheduled (surgery)) 05/10/[address] [facility] [address] [place], [place] [phone] Rena Lopez MD 05/02/2025 3:40 PM EDT Office Visit [facility] [address] [place] [address] Ann Marie, MD Nabil Generalized abdominal pain (Primary Dx); Constipation, unspecified constipation type 05/02/2025 Travel from Last 3 Months Immunizations Immunization [...] Mass Index 30.97 07/22/2025 2:14 PM EST Plan of Treatment Upcoming Encounters Date Type Department Care Team (Late st Contact Info) Description 08/20/2025 2:15 PM EST Office Visit [facility] ADULT DENTAL [address] [place] [address] Katt Espinoza [address] [place] [address] 09/16/2025 2:30 PM EST Office Visit [facility] AD[facility] D[facility] [address] [place] [address] Waylon Gutierrez DDS [address] [place] [address] Health Maintenance Due Date Last Done Comments [...] 06/10/2026 06/10/2025 Depression Screening 06/10/2026 06/10/2025, 06/10/20 Diabetes: Hemoglobin A1C 06/11/2026 025, 2025, 12/11/2023, Additional history exists Tobacco Screening 07/22/2026 07/22/2025 Mammogram 10/04/2026 10/04/2024, 06/0 08/2022, 12/11/2020, Additional history exists Zoster Vaccines (1 of 2) 2027 Lipid Panel 06/11/2030 06/11/2025, 07/2 03/2025, 11/16/2023, Additional history exists DTaP/Tdap/Td Vaccines [...] pain without sciatica, unspecified back pain laterality CASE PRESENTATION, DETAILED AND EXTENSIVE TREATMENT PLANNING Routine 07/22/2025 3:30 PM EST Open fracture of tooth, initial encounter INTRAORAL - PERIAPICAL FIRST RADIOGRAPHIC IMAGE Routine 07/22/2025 3:30 PM EST Open fracture of tooth, initial encounter LIMITED ORAL EVALUATION - PROBLEM FOCUSED Routine 07/22/2025 3:30 PM EST Open fracture of tooth, initial encounter HEPATIC FUNCTION PANEL Routine 07/22/2025 3:06 PM EST Transaminitis PROTHROMBIN TIME WHOLE BLD POC Routine 07/15/2025 7:54 AM EST ~PT, ~INR - ANTI COAG CLINIC Routine 07/15/2025 7:54 AM EST PROTHROMBIN TIME WHOLE BLD POC Routine 06/26/2025 [...] 05/02/2025 3:50 PM EDT Generalized abdominal pain PROPHYLAXIS - ADULT Routine 10/31/2024 2 :00 [...] Recently Relevant to Health Maintenance Results * XR Lumbar Spine 2-3 Views (07/22/2025 4:18 PM EST) Anatomical Region Laterality Modality Spine, L-spine Radiographic Darlene ging 07/22/2025 4:18 PM EST Narrative 07/22/2025 4:29 PM EST [address] [address] XRay Report Signed Patient: Thalia Martell MR#: [id number] 2088 : 1975 Acct:[id number] Age/Sex: 50 / F ADM Date: 07/22/25 Loc: HO.HH Attending Dr: Clara Shearer MD Ordering Physician: Clara Shearer MD Date of Service: 07/22/25 Procedure(s): XR lumbar spine 2-3V Accession Number(s): [id number] cc: Clara Shearer MD Reason for Exam: [...] by: Price Calderón MD 07/22/2025 04:26 PM [facility] Dictated By: Price Calderón MD Signed By: <Electronically signed by Price Calderón MD in OV> 07/22/25 1626 DD/ 1618 TD/TT: 07/22/25 1618 Management Planner: Procedure Note Donotuseinterpreter, Image - 07/22/2025 [place] [address] XRay Report Signed Patient: Yoel Martell#: [id number] 2088 : 1975Acct:[id number] Age/Sex: 50 / FADM Date: 07/22/25 Loc: HO.HHCL Attending Dr: Clara Shearer MD Ordering Physician: Clara Shearer MD Date of Service: 07/22/25 Procedure(s): XR lumbar spine 2-3V Accession Number(s): [id number] cc: Clara Shearer MD Reason for Exam: [...] Price Calderón MD 07/22/2025 04:26 PM EST Dictated By: Price Calderón MD Signed By: <Electronically signed by Price Calderón MD in OV> 07/22/25 1626 DD/ 1618 TD/TT: 07/22/25 1618 Management Planner: Clara Shearer MD IMG XR PROCEDURES Final Result * (ABNORMAL) Hepatic Function Panel (07/22/2025 3:06 PM EST) Only the most recent of2 resultswithin the time period is included. Bilirubin, Total 0.3 0.0 - 1.0 mg/dL [facility] Bilirubin, Direct 0.1 0.0 - 0.5 mg/dL [facility] Aspartate Amino Transferase 32(H) 5 - 31 U/L [facility] Alanine Aminotransferase 36(H) 0 - 31 U/L [facility] Total Protein 7.5 6.5 - 8.0 g/dL [facility] Albumin Level 4.4 3.5 - 5.0 g/dL [facility] Alkaline Phosphatase 89 39 - 117 U/L [facility] Blood Venous blood specimen / Unknown 07/22/2025 3:06 PM EST 07/22/2025 4:16 PM EST Clara Shearer MD LAB BLOOD ORDERABLES Final Resul t [facility] [address] [place] [phone] * (ABNORMAL) PROTHROMBIN TIME WHOLE BLD POC (07/15/2025 7:54 AM EST) Only the most recent of3 resultswithin the time period is included. Protime 29.6(H) 11.1 - 13.5 sec [facility] 07/15/2025 7:54 AM EST 07/15/2025 8:48 AM EST Generic External Data Provider LAB BLOOD ORDERAB LES Final Result Performing Organization Address City/[facility] Co de Phone Number [facility] [address] [place] [address] [phone] * (ABNORMAL) ~PT, ~INR - ANTI COAG CLINIC (07/15/2025 7:54 AM EST) Only the most recent of3 resultswithin the time period is included. Prothrombin Time INR 2.5(H) 0.9 - 1.1 [facility] Comment:METER #: [id number] TERNATIONAL NORMALIZED RATIO (INR) REFERENCE RANGES Reference RangeFor patients not on anticoagulant therapy: 0.9 - 1.1INR ranges for oral anticoagulanttherapy:For prevention and treatment of venous thrombosis and pulmonary embolism: 2.0 - 3.0For acute myocardial infarction with aspirin therapy: 2.0 - 3.0For acute myocardial infarction without aspirin therapy: 3.0 - 4.0For patients with mechanical prosthetic heart valves: 2.5 - 3.5 07/15/2025 7:54 AM EST 07/15/2025 8:48 AM EST us [employer] External Data Provider LAB BLOOD ORDERAB LES Final Result Performing Organization Address [facility] Co de Phone Number [facility] [address] [place] [phone] * Hepatitis C Antibody with Reflex to HCV, RNA, Quantitative, Real-Time PCR (06/18/2025 8:37 AM EST) Hepatitis C Antibody Nonreactive Nonreactive [facility] Comment:Antibodies to HCV no t detected; does not exclude early acuteHCV infection. Venous blood specimen / Unknown 06/18/2025 8:37 AM EST 06/18/2025 8:43 AM EST us Clara Shearer MD LAB BLOOD ORDERABLES Final Resul t Performing Organization Address City/[facility]/ZIP Co de Phone Number [facility] [address] [place] [address] [phone] * Hepatitis B surface antigen, EIA (06/18/2025 8:37 AM EST) Hepatitis B Surface Ag Negative Negative [facility] Venous blood specimen / Unknown 06/18/2025 8:37 AM EST 06/18/2025 8:43 AM EST us Clara Shearer MD LAB BLOOD ORDERABLES Final Resul t Performing Organization Address City/[facility]/ZIP Co de Phone Number [facility] [address] [place] [address] [phone] * Basic Metabolic Panel (06/18/2025 8:37 AM EST) Sodium 139 135 - 145 mmol/L [facility] Potassium 4.1 3.3 - 5.1 mmol/L [facility] Chloride 108 96 - 108 mmol/L [facility] Carbon Dioxide 23 22 - 29 mmol/L [facility] Anion Gap 12 12 - 20 [facility] Urea Nitrogen (BUN) 10 9 - 16 mg/dL [facility] Creatinine, Serum 0.56 0.5 - 1.4 mg/dL [facility] Estimated Glomerular Filt Rate >60 [facility] Comment:Chronic Kidney Disea se: Estimated GFR < 60 mL/min/1.32h3Sfyxim Kidney Disease: Estimated GFR < 15 mL/min/1.73m2 Glucose 96 60 - 115 mg/dL [facility] Calcium 9.8 8.4 - 10.2 mg/dL [facility] Blood Venous blood specimen / Unknown 06/18/2025 8:37 AM EST 06/18/2025 8:43 AM EST us Nabil Jesus MD LAB BLOOD ORDERABLES Final Resul t [facility] [address] [place] [address] [phone] * XR Chest 2 Views (06/12/2025 1:47 PM EST) Anatomical Region Laterality Modality Chest Radiographic Darlene ging 06/12/2025 1:47 PM EST Narrative 06/12/2025 2:12 PM EST [address] [address] XRay Report Signed Patient: Thalia Martell MR#: [id number] 2088 : 1975 Acct:[id number] Age/Sex: 50 / F ADM Date: 06/12/25 Loc: HO.XRAY Attending Dr: Clara Shearer MD Ordering Physician: Clara Shearer MD Date of Service: 06/12/25 Procedure(s): XR chest 2V Accession Number(s): [id number] cc: Clara Shearer MD Reason for Exam: [...] 06/12/25 1409 DD/ 1347 TD/TT: 06/12/25 1350 Management Planner: Procedure Note Donotuseinterpreter, Image - 06/12/[address] [address] XRay Report Signed Patient: Yoel Martell#: [id number] 2088 : 1975Acct:[id number] Age/Sex: 50 / FADM Date: 06/12/25 Loc: HO.XRAY Attending Dr: Clara Shearer MD Ordering Physician: Clara Shearer MD Date of Service: 06/12/25 Procedure(s): XR chest 2V Accession Number(s): [id number] cc: Clara Shearer MD Reason for Exam: [...] 06/12/25 1409 DD/ 1347 TD/TT: 06/12/25 1350 Management Planner: Clara Shearer MD IMG XR PROCEDURES Final Result * Vitamin D, 25-Hydroxy, Total, Immunoassay (06/11/2025 8:13 AM EST) Vitamin D 25-OH Total 39.5 >30 ng/mL [facility] Comment: Health Based Reference Values*< 20 ng/mL Njudvmquk93-26 ng/mL Insufficient> 30 ng/mL Sufficient*Paul LEVIN. N [...] MD LAB BLOOD ORDERABLES Final Resul t [facility] [address] [place] [address] [phone] * Vitamin B12 (Cobalamin) and Folate Panel, Serum (06/11/2025 8:13 AM EST) Vitamin B12 809 200 - 900 pg/mL [facility] Comment:NORMAL 200-900 PG/ML INDETERMINATE 160-199 PG/ML DEFICIENT < 160 PG/ML Folate 9.4 > or = 4.0 ng/mL [facility] Comment:Reference Values:> o r = 4.0 ng/mL< 4.0 ng/mL suggests folate deficiency Methotrexate, aminopterin and folinic acid(leucovorin) are chemotherapeutic agents whose molecularstructures are similar to folate; therefore, the Architectfolate assay cannot be used for patients using these drugs. Blood 06/11/2025 8:13 AM EST 06/11/2025 11:09 AM EST us Clara Shearer MD LAB BLOOD ORDERABLES Final Resul t Performing Organization Address City/[facility]/ZIP Co de Phone Number [facility] [address] [place] [address] [phone] * TSH with Reflex to Free T4 (06/11/2025 8:13 AM EST) TSH reflex Free T4 1.95 0.32 - 4.0 uIU/mL [facility] Blood 06/11/2025 8:13 AM EST 06/11/2025 11:09 AM EST us Clara Shearer MD LAB BLOOD ORDERABLES Final Resul t Performing Organization Address [facility] Co de Phone Number [facility] [address] [place] [address] [phone] * (ABNORMAL) Lipid Panel with Reflex to Direct LDL (06/11/2025 8:13 AM EST) Triglycerides 186(H) <150 mg/dL [facility] Comment:Desirable Triglyceri de: less than 150 mg/dLBorderline High Triglyceride 150-199 mg/dLHigh Triglyceride: 200-499 mg/dLVery High Triglyceride: greater than or equal to 5OO mg/dL Cholesterol 243(H) <200 mg/dL [facility] Comment:Desirable Cholestero l: less than 200 mg/dLBorderline High Cholesterol: 200-239 mg/dLHigh Cholesterol: greater than 239 mg/dL LDL Cholesterol Calculated 148(H) <100 mg/dL [facility] Comment:Desirable LDL: less than 100 mg/dLNear Optimal/Above Optimal LDL: 110- 129 mg/dLBorderline High LDL: 130-159 mg/dLHigh LDL: 160-189 mg/dLVery High LDL: greater than or equal to 190 mg/dL HDL Cholesterol 58 >40 mg/dL [facility] Comment:Desirable HDL: great er than 40 mg/dL Note: This HDL assay may give artificially low results in patients with liver disease. Blood 06/11/2025 8:13 AM EST 06/11/2025 11:09 AM EST us Clara Shearer MD LAB BLOOD ORDERABLES Final Resul t [facility] [address], [place] [phone] * (ABNORMAL) CBC auto differential (06/11/2025 8:13 AM EST) White Blood Count 5.0 4.8 - 10.8 X10*3/uL [facility] Red Blood Count 4.11(L) 4.20 - 5.50 X10*6/uL [facility] Hemoglobin 12.1 12.0 - 16.0 g/dl [facility] Hematocrit 37.7 37.0 - 47.0 % [facility] Mean Corpuscular Volume 91.7 80.0 - 98.0 fL [facility] Mean Corpuscular Hemoglobin 29.4 27.0 - 33.0 pg [facility] Mean Corpuscular HGB Conc 32.1 31.0 - 35.0 g/dl [facility] Red Cell Distribution Width 13.7 11.0 - 16.0 % [facility] Platelet Count 218 160 - 400 X10*3/uL [facility] Mean Platelet Volume 10.6 9.4 - 12.3 fL [facility] Neutrophils Percent Auto 63.2 45 - 73 % [facility] Imm Gran Pct Auto 0.2 0.0 - 0.4 % [facility] Lymphocytes Percent Auto 21.8 20 - 40 % [facility] Monocytes Percent Auto 10.4 2 - 11 % [facility] Eosinophils Percent Auto 4.0 0 - 4 % [facility] Basophils Percent Auto 0.4 0 - 2 % [facility] NRBC Pct Auto 0.0 0.0 - 0.2 /100WBC [facility] Neutrophils Absolute Auto 3.2 2.0 - 8.3 x10*3/uL [facility] Imm Gran Abs Auto 0.01 0.00 - 0.03 X10*3/uL [facility] Lymphocytes Absolute Auto 1.1(L) 1.2 - 4.9 X10*3/uL [facility] Monocytes Absolute Auto 0.5 0.1 - 1.2 X10*3/uL [facility] Eosinophils Absolute Auto 0.2 0.0 - 0.4 X10*3/uL [facility] Basophils Absolute Auto 0.0 0.0 - 0.2 X10*3/uL [facility] NRBC Abs Auto 0.000 0.0 - 0.012 X10*3/uL [facility] Blood Venous blood specimen / Unknown 06/11/2025 8:13 AM EST 06/11/2025 11:08 AM EST Clara Shearer MD LAB BLOOD ORDERABLES Final Resul t [facility] [address] [place] [phone] * Iron And Total Iron Binding Capacity (06/11/2025 8:13 AM EST) Iron 56 30 - 160 mcg/dL [facility] Total Iron Binding Capacity 318 228 - 428 mcg/dL [facility] Percent Iron Saturation 18 15 - 50 % [facility] Unsaturated Iron Binding 262 ug/dL [facility] Blood Venous blood specimen / Unknown 06/11/2025 8:13 AM EST 06/11/2025 11:09 AM EST Clara Shearer MD LAB BLOOD ORDERABLES Final Resul t Performing Organization Address City/[facility] Co de Phone Number [facility] [address] [place] [address] [phone] * (ABNORMAL) Reticulocyte Count (06/11/2025 8:13 AM EST) Reticulocytes Absolute 0.130(H) 0.026 - 0.095 X10*6/uL [facility] Immature Retic Fraction 16.3(H) 3.0 - 15.9 % [facility] Retic HGB Equivalent 32.8 30.0 - 35.0 pg [facility] Reticulocyte Percent 3.2(H) 0.5 - 1.8 % [facility] Blood Venous blood specimen / Unknown 06/11/2025 8:13 AM EST 06/11/2025 11:08 AM EST Claar Shearer MD LAB BLOOD ORDERABLES Final Resul t Performing Organization Address City/[facility]/ZIP Co de Phone Number [facility] [address] [place] [address] [phone] * Hemoglobin A1c (06/11/2025 8:13 AM EST) Hemoglobin A1c 5.5 <6.0 % [facility] Comment:Hemoglobin A1C Refer ence Range Adults: 4.8 - 6.0 % Non diabetic: < 6.0 % Goal: < 7.0 %Additional Action Suggested: > 8.0 %Note: Hemoglobin A1c results are invalid for patients with abnormal amounts of HbF. Blood transfusions may impact the HbA1c concentration in the patient sample. Estimated Average Glucose 111 mg/dL [facility] Comment:eAG = Estimated ave rage glucose which is %A1C expressed asaverage glucose, using the formula of the B7T-ShpgmcdYtodpsl Glucose study (ADAG), Diabetes Care, Vol.31,#8,Feb. 2007 Blood Venous blood specimen / Unknown 06/11/2025 8:13 AM EST 06/11/2025 11:08 AM EST Clara Shearer MD LAB BLOOD ORDERABLES Final Resul t Performing Organization Address City/[facility]/ZIP Co de Phone Number [facility] [address] [place] [address] [phone] * Ferritin (06/11/2025 8:13 AM EST) Ferritin 92 10 - 250 ng/mL [facility] Blood Venous blood specimen / Unknown 06/11/2025 8:13 AM EST 06/11/2025 11:09 AM EST us Clara Shearer MD LAB BLOOD ORDERABLES Final Resul t [facility] [address], [place] [phone] * (ABNORMAL) Comprehensive Metabolic Panel (06/11/2025 8:13 AM EST) Sodium 137 135 - 145 mmol/L [facility] Potassium 3.8 3.3 - 5.1 mmol/L [facility] Chloride 107 96 - 108 mmol/L [facility] Carbon Dioxide 24 22 - 29 mmol/L [facility] Anion Gap 10(L) 12 - 20 [facility] Urea Nitrogen (BUN) 12 9 - 16 mg/dL [facility] Creatinine, Serum 0.53 0.5 - 1.4 mg/dL [facility] Estimated Glomerular Filt Rate >60 [facility] Comment:Chronic Kidney Disea se: Estimated GFR < 60 mL/min/1.00z3Pwwlpi Kidney Disease: Estimated GFR < 15 mL/min/1.73m2 Glucose 105 60 - 115 mg/dL [facility] Calcium 9.2 8.4 - 10.2 mg/dL [facility] Bilirubin, Total 0.5 0.0 - 1.0 mg/dL [facility] Aspartate Amino Transferase 153(H) 5 - 31 U/L [facility] Alanine Aminotransferase 267(H) 0 - 31 U/L [facility] Total Protein 7.3 6.5 - 8.0 g/dL [facility] Albumin Level 4.2 3.5 - 5.0 g/dL [facility] Alkaline Phosphatase 119(H) 39 - 117 U/L [facility] Blood Venous blood specimen / Unknown 06/11/2025 8:13 AM EST 06/11/2025 11:09 AM EST us Clara Shearer MD LAB BLOOD ORDERABLES Final Resul t [facility] [address] [place] [phone] * XR Shoulder 2+ Views Right (06/10/2025 11:10 AM EST) Anatomical Region Laterality Modality Upper Extremities, Shoulder Right Radi ographic Imaging 06/10/2025 11:1 0 AM EST Narrative 06/10/2025 3:02 PM EST [facility] [place] [address] [place] [address] XRay Report Signed Patient: Thalia Martell MR#: [id number] 2088 : 1975 Acct:[id number] Age/Sex: 50 / F ADM Date: 06/10/25 Loc: HO.HHCX Attending Dr: Clara Shearer MD Ordering Physician: Clara Shearer MD Date of Service: 06/10/25 Procedure(s): XR shoulder RT min 2V Accession Number(s): [id number] cc: Clara Shearer MD Reason for Exam: [...] OV> 06/10/25 1459 DD/ 1110 TD/TT: 06/10/251114 Management Planner: RIA Procedure Note Donotuseinterpreter, Image - 06/10/[address] [address] XRay Report Signed Patient: Yoel Martell#: [id number] 2088 : 1975Acct:[id number] Age/Sex: 50 / FADM Date: 06/10/25 Loc: HO.HHCX Attending Dr: Clara Shearer MD Ordering Physician: Clara Shearer MD Date of Service: 06/10/25 Procedure(s): XR shoulder RT min 2V Accession Number(s): [id number] cc: Clara Shearer MD Reason for Exam: [...] 06/10/25 1459 DD/ 1110 TD/TT: 11/18/25 1115 Management Planner: RIA Clara Shearer MD IMG XR PROCEDURES Final Result * POCT urinalysis dipstick manually resulted (CPT 85813) (05/02/2025 3:50 PM EDT) Color, UA Yellow [...] TEST ENTER/EDIT OR DERABLES Final Result * BI Mammogram Screening Tomosynthesis Bilateral (10/04/2024 3:55 PM EDT) Anatomical Region Laterality Modality Breast Bilateral Mammography 10/04/2024 3:55 PM EDT Narrative 10/13/2024 6:12 PM EDT [facility] [address] [place] [address] Mammography Report Signed Patient: Thalia Martell MR#: [id number] 2088 : 1975 Acct:[id number] Age/Sex: 49 / F ADM Date: 10/04/24 Loc: MARIE Attending Dr: Clara Shearer MD Ordering Physician: Clara Shearer MD Results: 1Negative Date of Service: 10/04/24 Follow Up: 1 Year From [facility] Mammogram Procedure(s): MM tomosynthesis screening BI Accession Number(s): [id number] cc: Clara Shearer MD EXAMINATION: MM SCREENING [...] Schrader DO in OV> 10/13/24 1809 DD/ 1554 TD/TT: 10/04/24 1608 Management Planner: Procedure Note Donotuseinterpreter, Image - 10/13/2024 [facility] [address] [place] [address] Mammography Report Signed Patient: Yoel Martell#: [id number] 2088 : 1975Acct:[id number] Age/Sex: 49 / FADM Date: 10/04/24 Loc: MARIE Attending Dr: Clara Shearer MD Ordering Physician: Clara Shearer MDResults: 1Negative Date of Service: 10/04/24Follow Up: 1 Year From Orig ina Mammogram Procedure(s): MM tomosynthesis screening BI Accession Number(s): [id number] cc: Clara Shearer MD EXAMINATION: MM SCREENING [...] 10/13/24 1809 DD/ 1555 TD/TT: 10/04/24 1608 Management Planner: Clara Shearer MD [facility] BI PROCEDURES Edited Result - Final * HIV-1 RNA, Quantitative, Real-Time PCR (12/15/2022 8:09 AM EDT) HIV 1 RNA, QN PCR NOT DETECTED NOT DETECTED copies/mL [facility] [place] [facility] HIV 1 RNA, QN PCR NOT DETECTED NOT DETECTED Log copies/mL [facility] [place] [facility] Comment: This test was performed using Real-Time Polymerase Chain Reaction. Reportable Range: 20 copies/mL to 10,000,000 copies/mL (1.30 log copies/mL to 7.00 log copies/mL). Blood Venous blood specimen / Unknown 12/15/2022 8:09 AM EDT 12/15/2022 8:10 AM EDT Narrative [facility] - 12/23/2022 6:53 PM EDT FASTING:NO FASTING: NO us Yany Cosby PILOT TEACHER LAB BLOOD ORDERABLES Final Res ult [facility] [address], [place] [address] [facility] [place] [facility] [address] [place] [address] * THINPREP PAP (11/13/2020 4:51 PM EDT) [...] along with historic and current clinical information. Gallery Assistant : SEE COMMENT [facility] Comment: RK, CT(ASCP) CT screening location: [place] [address] Interpretation/R esult: Negative for intraepithelial lesion or malignancy. [facility] LMP: NONE [facility]IVEN [facility] Prev. BX: NONE [facility]IVEN [facility] Prev. PAP: NONE [facility]IVEN [facility] Review Gallery Assistant : SEE [facility] Comment: BLC,CT(ASCP) CT screening location: [place] [address] SOURCE: None given [facility] Statement Of Adequacy: SEE [facility] Comment: Satisfactory for evaluation. Endocervical/transformation zone component present. Age and/or menstrual status not provided 11/13/2020 4:51 PM EDT us Ginette Her NP LAB PATHOLOGY ORDERABLES Final Result Performing Organization Address [facility] de Phone Number [facility] [address] * HPV GENOTYPES 16,18/45 (11/13/2020 4:51 PM EDT) HPV 16 RNA NOT DETECTED NOT DETECTED [facility] HPV 18/45 RNA NOT DETECTED NOT DETECTED [facility] Comment: Methodology: Application Support Mediated Amplification The analytical performance characteristics of this assay have been determined by [facility]. The modifications have not been cleared or approved by the FDA. This assay has been validated pursuant to the CLIA regulations and is used for clinical purposes. 11/13/2020 4:51 PM EDT us Ginette Her NP LAB CYTOLOGY ORDERABLES Final R esult Performing Organization Address City/[facility]/ZIP Co de Phone Number [facility] [address] from Last 3 Months or Most Recently Relevant to Health Maintenance Insurance [place] [id number] DENTAL - HSN PARTIAL (MEDICAID) * Guarantor: Thalia Martell Account Type Relation to Patient Date of Phone Billing Address Personal/[place] [address] Care Teams Tuber Machine Cutter Relationship Specialty Start Date End Date Clara Shearer MD [address] [place] [address] PCP - General Family Medicine 07/24/18
--- OUTSIDE RECORDS SUMMARY | 2025-07-22 18:30 | XMS_ITS | Encounter Summary ---
Author Organization [employer] Address [address] [place] [address] 7 [place] [address] Care Team Providers Care Career Development Specialist Name Role Phone Clara Shearer MD Primary Care Provider [phone] Reason for Visit * Reason Onset Date Comments Letter for School/Work 08/02/2022 Encounter Details Date Type Department Care Team ([facility] st Contact Info) Description 08/02/2022 Telephone [facility] MEDICINE [address] [place], [place] [phone] Clara Shearer MD [address] [place] [address] Letter for School/Work Social History Tobacco Use [...] a upcoming procedure on 08-19-22. Fax number [phone] Any question please contact Ambreen at [phone] ext [phone] * Telephone Encounter - Khang Garcia - 08/04/2022 2:41 PM EST [place] [facility] [place] a [place] regarding message below Please contact pankaj at [phone] * Telephone Encounter - Ronda Mahan LPN [...] 2:48 PM EST Tc from claudia with [facility] O[facility] requesting a letter stating when pt will be stopping medication ( warfarin 2 mg ) prior to OP Please contact claudia at [phone] ext [phone] documented in this encounter Plan of Treatment Upcoming Encounters Date Type Department Care Team (Late st Contact Info) Description 08/20/2025 2:15 PM EST Office Visit [facility] ADULT DENTAL [address], [place] [phone] Olga, Katt [address], [place] [phone] 09/16/2025 2:30 PM EST Office Visit [facility] [address], [place] [phone] Waylon Gutierrez DDS [address], [place] [phone] documented as of this encounter Visit Diagnoses Not on filedocumented in this encounter Care Teams Career Development Specialist Relationship Specialty Start Date End Date Clara Shearer MD [address] [place], [place] [phone] PCP - General Family Medicine 07/24/18 documented as of this encounter
--- OUTSIDE RECORDS SUMMARY | 2025-07-22 18:30 | XMS_ITS | Encounter Summary ---
Author Organization [employer] Address [address] [facility] [address] [place] [address] Care Team Providers Care Shell Freezing Machine Operator Name Role Phone Clara Shearer MD Primary Care Provider [phone] Encounter Details Date Type Department Care Team ([facility] st Contact Info) Description 06/18/2025 Orders Only [facility] MEDICINE [address] [place], [place] [phone] Clara Shearer MD [address] [place], [place] [phone] Transaminitis (Primary Dx) Social History Tobacco Use [...] [facility] ADULT DENTAL [address] [place] [address] Jignesh Espinozaaris [address] [place] [address] 09/16/2025 2:30 PM EST Office Visit [facility] ADULT DENTAL [address] [place] [address] Waylon Gutierrez DDS [address] [place] [address] documented as of this encounter Procedures Procedure Name Priority Date/Time Associated Diagnosis Comments HEPATIC FUNCTION PANEL Routine 07/22/2025 3:06 PM EST Transaminitis documented in this encounter Results * (ABNORMAL) Hepatic Function Panel (07/22/2025 3:06 PM EST) Bilirubin, Total 0.3 0.0 - 1.0 mg/dL [facility] Bilirubin, Direct 0.1 0.0 - 0.5 mg/dL [facility] Aspartate Amino Transferase 32(H) 5 - 31 U/L [facility] Alanine Aminotransferase 36(H) 0 - 31 U/L [facility] Total Protein 7.5 6.5 - 8.0 g/dL [facility] Albumin Level 4.4 3.5 - 5.0 g/dL [facility] Alkaline Phosphatase 89 39 - 117 U/L [facility] Blood Venous blood specimen / Unknown 07/22/2025 3:06 PM EST 07/22/2025 4:16 PM EST us Clara Shearer MD LAB BLOOD ORDERABLES Final Resul t [facility] [address] [place] [address] [phone] documented in this encounter Visit Diagnoses Diagnosis Transaminitis- Primary Nonspecific elevation of levels of transaminase or lactic acid dehydrogenase (LDH) documented in this encounter Additional Health Concerns Assessment Noted Time PHQ-9 Depression Total Score: 0 06/10/20 25 9:47 AM EST documented as of this encounter Care Teams Shell Freezing Machine Operator Relationship Specialty Start Date End Date Clara Shearer MD [address] [place] [address] PCP - General Family Medicine 07/24/18 documented as of this encounter
== END 2025-07-22 14:54 | disposition home or self-care (01) ==
LOC: HO.HHCL 14:53
PROVIDERS: PCP Family Medicine; Visit Provider Family Medicine
DX: R74.01 Elevation of levels of liver transaminase levels (principal); M54.50 Low back pain, unspecified
CPT/HCPCS: 36415; 72100; 80076

== ENCOUNTER → 2025-07-22 16:05 | Outpatient (BNV) | payer OTHER, SELFPAY | PROVIDERS: PCP Family Medicine; Visit Provider Radiology Diagnostic Radiology | DX: M43.27 Fusion of spine, lumbosacral region (principal) | CPT/HCPCS: 72100 ==